=== PATIENT | female | born 1950 | race Caucasian/White ===

== ENCOUNTER 2020-05-07 16:22 | Emergency (ER) | payer MEDICARE, SELFPAY ==
--- NOTE | 2020-05-07 16:32 | PC.NURSE ---
Pt seen leaving hospital after taking off bracelet and giving it to registration. Registration states pt said she is going to go home elizabeth wrap her finger herself.
== END 2020-05-07 16:32 | disposition left against medical advice (07) ==
LOC: CHSED 16:24
PROVIDERS: Emergency Provider Family Medicine; PCP Internal Medicine
DX: Z53.8 Procedure and treatment not carried out for other reasons (principal)
CPT/HCPCS: 99199

== ENCOUNTER 2020-05-10 22:32 | Emergency (ER) | payer MEDICARE, SELFPAY ==
[2020-05-10 22:37] VITALS: BP 166/61; PULSE 82; RESP 20; TEMP 36.8; O2SAT 96
--- NOTE | 2020-05-10 22:50 | ED.HEATRA ---
HPI - Head Injury General Chief complaint: Head Injury Stated complaint: Busted head open Time Seen by Provider: 05/10/20 22:35 Source: patient and RN notes reviewed Mode of arrival: ambulatory Limitations: no limitations History of Present Illness HPI Narrative: patient was closing a car door and the corner of the car door hit her forehead caused a laceration. Tetanus is up-to-date. Complaint: head injury Onset (ago): minute(s) (5) Mechanism of Injury: other ( Head by a Car door) Place: home Loss of Consciousness: no Location of injury: face Severity: mild Quality: dull Radiation: none Other Injuries: none Associated symptoms: denies other symptoms Related Data Home Medications Medication Instructions Recorded Confirmed alprazolam 0.25 mg PO Q6-8H PRN 09/22/19 05/10/20 atenolol 50 mg PO DAILY 09/22/19 05/10/20 glimepiride 4 mg PO BID 09/22/19 05/10/20 triamterene-hydrochlorothiazid 1 cap PO DAILY 09/22/19 05/10/20 verapamil 240 mg PO BID 09/22/19 05/10/20 Allergies Allergy/AdvReac Type Severity Reaction Status Date / Time Unable to Assess Allergy Verified 09/22/19 16:39 Review of Systems Review of Systems: All systems reviewed & are unremarkable except as noted in HPI and below PMFSH Past Medical History Medical History (Updated 05/10/20 @ 23:22 by Maicol Thomas MD) Diabetes 1.5, managed as type 2 Hypertension Surgical History Surgical History (Updated 05/10/20 @ 23:16 by Maicol Thomas MD) No history of previous surgery Social History Social History (Updated 05/10/20 @ 23:17 by Maicol Thomas MD) Smoking status: Never smoker Alcohol intake: current Alcohol use details: occasional Substance use: never Exam Const: General: healthy appearing and no acute distress Nutritional Appearance: well nourished Orientation/consciousness: patient oriented x3 HENMT: Head: normal to inspection Ears: external ears normal Face and sinus: normal facial exam Mouth: Yes lip normal and Yes moist mucous membranes Eyes: Conjunctivae: conjunctivae normal Pupils: Equal, round and reactive pupils present EOM: EOMs intact bilaterally Neck: Neck: normal visual inspection Resp: Effort & Inspection: normal respiratory effort Auscultation: clear to auscultation bilaterally Cardio: Rate: regular rate Rhythm: regular rhythm GI: GI Palp: Yes Soft to palpation Auscultation: normal bowel sounds Back/Spine/Pelvis: Cervical Spine: cervical ROM normal Thoracic/Lumbar Spine: thoraco-lumbar ROM normal Skin: Wounds: wounds noted laceration forehead size (5 cm) and open Neuro: General: patient oriented x3, moves all extremities and no focal motor deficits Speech: normal speech Gait exam (Neuro): Normal gait present Extrem: General: normal to inspection and no pedal edema Psych: Appearance: grossly normal and well kempt Mental Status: mental status grossly normal Affect: normal affect Attitude: cooperative Thought content: Yes Normal thought content present Course Vital Signs Vital signs: Vital Signs Temperature 36.8 C 05/10/20 22:37 Pulse Rate 82 05/10/20 22:37 Respiratory Rate 20 05/10/20 22:37 Blood Pressure 166/61 H 05/10/20 22:37 Pulse Oximetry 96 05/10/20 22:37 Temperature 36.8 C 05/10/20 22:37 Pulse Rate 82 05/10/20 22:37 Respiratory Rate 20 05/10/20 22:37 Blood Pressure 166/61 H 05/10/20 22:37 Pulse Oximetry 96 05/10/20 22:37 Procedures Laceration Laceration 1: Date: 05/10/20 Time: 23:08 Site: face (Forehead center) Size (cm): 5 Description: linear Depth: simple, single layer Local Anesthetic: lidocaine 1% and with epi Pre-repair: irrigated ====== Skin Level ====== Skin layer closed with: nylon Size (cm): 4-0 Number of sutures: 12 Technique: running ====== Subcutaneous Layer ====== ====== Muscle Layer ====== ====== Tendon La
[2020-05-10] MEDS: LIDO 1%/EPINEPHRINE 1:100,000 20 ML VIAL INFILTRATE (23:10)
[2020-05-10 23:45] VITALS: BP 140/66; PULSE 64; RESP 20; TEMP 36.9; O2SAT 94
[2020-05-10] MEDS: NEOMYCIN/POLYMYXIN/BACITRACIN OINTMENT PACKET 1 PACKET TOPICAL (23:45)
--- NOTE | 2020-05-10 23:53 | PC.NURSE ---
Applied dressing to forehead using neosporin and a non adherent 2x3 pad, patient tolerated well.
== END 2020-05-10 23:50 | disposition home or self-care (01) ==
PROVIDERS: Emergency Provider Emergency Medicine; PCP Internal Medicine
DX: S01.81XA Laceration without foreign body of other part of head, initial encounter (principal); W45.8XXA Other foreign body or object entering through skin, initial encounter
CPT/HCPCS: 12013; 99282

== ENCOUNTER 2020-05-17 07:55 | Outpatient (CLI) | payer MEDICARE, SELFPAY ==
[2020-05-17 08:09] LABS: Add Urine Microscopic? YES; Bilirubin Urine Negative (Negative); Blood Urine Negative (Negative); Color Urine Yellow (Yellow); Glucose Urine UA Negative (Negative); Ketones Urine Negative (Negative); Leukocyte Esterase Ur 2+ LEU/UL (Negative); Nitrate Urine Negative (Negative); Protein Urine Trace (Negative); Urobilinogen Urine 0.2 mg/dL (0.2-1.0); pH Urine 6.5 (5.0-8.0)
[2020-05-17 08:10] LABS: Appearance Urine Sl Cloudy (Clear)
[2020-05-17 08:16] LABS: Bacteria Urine 4+ /hpf; Squamous Epithelial Cell Urine Many /hpf (Few); WBC Urine >75 /hpf (0-3)
[2020-05-17 08:32] LABS: Hemoglobin A1C 7.4 % (<5.7)
[2020-05-17 09:14] LABS: Alanine Aminotransferase 25 U/L (14-59); Albumin Level 3.2 g/dL (3.4-5.0); Alkaline Phosphatase 74 U/L (46-116); Anion Gap 6 mmol/L (8-16); Bilirubin,Total 1.2 mg/dL (0.00-1.00); Blood Urea Nitrogen 16 mg/dL (7-18); Calcium 9.4 mg/dL (8.5-10.1); Carbon Dioxide 31 mmol/L (21-32); Chloride 104 mmol/L (98-108); Cholesterol 168 mg/dL (0-200); Creatine Kinase 90 U/L (26-192); Estimated Glomerular Filt Rate 56; Free T4 Free Thyroxine 1.28 ng/dL (0.76-1.46); Glucose 176 mg/dL (70-99); HDL Direct 44 mg/dL (40-60); LDL Cholesterol Calculated 101 mg/dL (<130); Osmolality Calculated 297 mOsm/kg (285-295); Sodium 141 mmol/L (136-145); Thyroid Stimulating Hormone 2.23 uIU/mL (0.36-3.74); Total Protein 7.6 g/dL (6.4-8.2); Triglycerides 116 mg/dL (0-150)
[2020-05-17 09:53] LABS: Aspartate Amino Transferase 23 U/L (15-37)
== END 2020-05-17 07:56 | disposition home or self-care (01) ==
LOC: CHSLAB 07:57
PROVIDERS: PCP Internal Medicine; Visit Provider Internal Medicine
DX: E03.9 Hypothyroidism, unspecified (principal); E11.65 Type 2 diabetes mellitus with hyperglycemia; I10 Essential (primary) hypertension; R82.90 Unspecified abnormal findings in urine
CPT/HCPCS: 36415; 80053; 80061; 81001; 82550; 83036; 84439; 84443; 87077; 87086; 87088

== ENCOUNTER 2020-06-09 10:16 | Outpatient (CLI) | payer MEDICARE, SELFPAY ==
--- NOTE | ~2020-06-09 | XR_ITS ---
EXAMINATION: XR finger 3rd RT min 2V INDICATION: Right third finger pain, initial encounter TECHNIQUE: Four views of the right third finger are obtained. COMPARISON: None available FINDINGS: A tiny heterotopic ossification projects dorsal to the distal aspect of the third middle ph alanx on the lateral view. There is flexion at the third distal interphalangeal joint. Finger soft ti ssue swelling is noted. There is [id number] polyarticular osteoarthritis of the interphalangeal joints. IMPRESSION: 1. 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 Orthopedic evaluation is recommended. Reviewed, dictated and finalized at location A. IMPRESSION: 1. 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 Orthopedic ev aluation is recommended.
== END 2020-06-09 10:17 | disposition home or self-care (01) ==
LOC: CHSIMG 10:18
PROVIDERS: PCP Internal Medicine; Visit Provider Internal Medicine
DX: S69.91XA Unspecified injury of right wrist, hand and finger(s), initial encounter (principal)
CPT/HCPCS: 73140

== ENCOUNTER 2021-01-28 08:01 | Outpatient (CLI) | payer MEDICARE, SELFPAY ==
[2021-01-28 08:28] LABS: Hemoglobin A1C 8.3 % (<5.7)
[2021-01-28 09:05] LABS: Anion Gap 6 mmol/L (8-16); Blood Urea Nitrogen 23 mg/dL (7-18); Calcium 9.7 mg/dL (8.5-10.1); Carbon Dioxide 30 mmol/L (21-32); Chloride 104 mmol/L (98-108); Estimated Glomerular Filt Rate 54; Glucose 180 mg/dL (70-99); Osmolality Calculated 298 mOsm/kg (285-295); Potassium 3.8 mmol/L (3.5-5.1); Sodium 140 mmol/L (136-145)
== END 2021-01-28 08:02 | disposition home or self-care (01) ==
LOC: CHSLAB 08:04
PROVIDERS: PCP Internal Medicine; Visit Provider Internal Medicine
DX: E11.65 Type 2 diabetes mellitus with hyperglycemia (principal); I10 Essential (primary) hypertension
CPT/HCPCS: 36415; 80048; 83036

== ENCOUNTER 2021-09-14 09:23 | Outpatient (CLI) | payer MEDICARE, SELFPAY ==
[2021-09-14 09:47] LABS: Basophils Absolute Auto 0.04 K/mm3 (0.00-0.10); Basophils Percent Auto 0.5 % (0.0-1.0); Eosinophils Absolute Auto 0.25 K/mm3 (0.02-0.50); Hematocrit 45.3 % (35.0-42.0); Immature Granulocyte Absolute 0.03 K/mm3 (0.00-0.00); Immature Granulocyte Percent A 0.4 % (0.0-0.0); Lymphocytes Absolute Auto 0.89 K/mm3 (1.10-4.50); Lymphocytes Percent Auto 10.8 % (18.0-42.0); Mean Corpuscular HGB Conc 33.1 g/dL (32.0-36.0); Mean Corpuscular Hemoglobin 30.1 pg (27.0-31.0); Mean Corpuscular Volume 90.8 fL (78.0-102.0); Monocytes Absolute Auto 0.56 K/mm3 (0.10-0.90); Monocytes Percent Auto 6.8 % (2.0-11.0); Neutrophils Absolute Auto 6.5 K/mm3 (1.7-7.2); Neutrophils Percent Auto 78.5 % (50.0-70.0); Platelet Count Result 214 K/mm3 (150-420); Red Blood Count 4.99 M/mm3 (4.20-5.40); White Blood Count 8.3 K/mm3 (4.8-10.8)
[2021-09-14 09:57] LABS: Hemoglobin A1C 9.3 % (<5.7)
[2021-09-14 10:40] LABS: Alanine Aminotransferase 25 U/L (14-59); Albumin Level 3.3 g/dL (3.4-5.0); Alkaline Phosphatase 84 U/L (46-116); Anion Gap 11 mmol/L (8-16); Aspartate Amino Transferase 15 U/L (15-37); Blood Urea Nitrogen 14 mg/dL (7-18); Calcium 9.4 mg/dL (8.5-10.1); Carbon Dioxide 29 mmol/L (21-32); Chloride 102 mmol/L (98-108); Cholesterol 172 mg/dL (0-200); Creatine Kinase 82 U/L (26-192); Estimated Glomerular Filt Rate > 60; Free T3 3.19 pg/mL (2.18-3.98); Free T4 Free Thyroxine 1.18 ng/dL (0.76-1.46); Glucose 227 mg/dL (70-99); HDL Direct 42 mg/dL (40-60); LDL Cholesterol Calculated 103 mg/dL (<130); Osmolality Calculated 301 mOsm/kg (285-295); Potassium 3.9 mmol/L (3.5-5.1); Sodium 142 mmol/L (136-145); Thyroid Stimulating Hormone 2.31 uIU/mL (0.36-3.74); Total Protein 7.8 g/dL (6.4-8.2); Triglycerides 137 mg/dL (0-150)
[2021-09-14 13:12] LABS: Add Urine Microscopic? YES; Appearance Urine Clear (Clear); Bilirubin Urine Negative (Negative); Blood Urine Negative (Negative); Color Urine Yellow (Yellow); Glucose Urine UA 2+ (Negative); Ketones Urine Negative (Negative); Leukocyte Esterase Ur Trace LEU/UL (Negative); Nitrate Urine Negative (Negative); Protein Urine Negative (Negative); Specific Grav Ur >= 1.030 (1.010-1.020); Urobilinogen Urine 0.2 mg/dL (0.2-1.0); pH Urine 5.5 (5.0-8.0)
[2021-09-14 13:18] LABS: Bacteria Urine 1+ /hpf; RBC Urine None seen /hpf (0-2); Squamous Epithelial Cell Urine Few /hpf (Few)
[2021-09-14 13:26] LABS: MALB Creatinine Ratio 27.6 mg/g (0-30); Microalbumin Urine Random 47.7 mg/L
== END 2021-09-14 09:24 | disposition home or self-care (01) ==
LOC: CHSLAB 09:25
PROVIDERS: PCP Internal Medicine; Visit Provider Internal Medicine
DX: E03.9 Hypothyroidism, unspecified (principal); I10 Essential (primary) hypertension; E11.65 Type 2 diabetes mellitus with hyperglycemia
CPT/HCPCS: 36415; 80053; 80061; 81001; 82043; 82550; 83036; 84439; 84443; 84481; 85025

== ENCOUNTER 2022-06-14 10:56 | Outpatient (CLI) | payer MEDICARE, SELFPAY ==
[2022-06-14 11:23] LABS: Anion Gap 7 mmol/L (8-16); Blood Urea Nitrogen 15 mg/dL (7-18); Carbon Dioxide 31 mmol/L (21-32); Chloride 102 mmol/L (98-108); Estimated Glomerular Filt Rate > 60; Glucose 242 mg/dL (70-99); Osmolality Calculated 298 mOsm/kg (285-295); Potassium 3.8 mmol/L (3.5-5.1); Sodium 140 mmol/L (136-145)
[2022-06-14 11:31] LABS: Hemoglobin A1C 9.7 % (<5.7)
== END 2022-06-14 10:57 | disposition home or self-care (01) ==
LOC: CHSLAB 10:58
PROVIDERS: PCP Internal Medicine; Visit Provider Internal Medicine
DX: E11.65 Type 2 diabetes mellitus with hyperglycemia (principal)
CPT/HCPCS: 36415; 80048; 83036

== ENCOUNTER 2022-12-14 08:18 | Outpatient (CLI) | payer MEDICARE, SELFPAY ==
[2022-12-14 08:42] LABS: Basophils Absolute Auto 0.05 K/mm3 (0.00-0.10); Basophils Percent Auto 0.6 % (0.0-1.0); Eosinophils Absolute Auto 0.33 K/mm3 (0.02-0.50); Eosinophils Percent Auto 3.9 % (1.0-6.0); Hematocrit 42.6 % (35.0-42.0); Hemoglobin 13.5 g/dL (11.7-13.8); Immature Granulocyte Absolute 0.03 K/mm3 (0.00-0.00); Immature Granulocyte Percent A 0.4 % (0.0-0.0); Lymphocytes Percent Auto 11.9 % (18.0-42.0); Mean Corpuscular HGB Conc 31.7 g/dL (32.0-36.0); Mean Corpuscular Hemoglobin 29.2 pg (27.0-31.0); Mean Platelet Volume 9.3 fl (9.2-11.8); Monocytes Absolute Auto 0.49 K/mm3 (0.10-0.90); Monocytes Percent Auto 5.8 % (2.0-11.0); Neutrophils Absolute Auto 6.5 K/mm3 (1.7-7.2); Neutrophils Percent Auto 77.4 % (50.0-70.0); Platelet Count Result 292 K/mm3 (150-420); Red Blood Count 4.63 M/mm3 (4.20-5.40); Red Cell Distribution Width 14.1 % (11.6-14.4); White Blood Count 8.4 K/mm3 (4.8-10.8)
[2022-12-14 08:59] LABS: Appearance Urine Clear (Clear); Bilirubin Urine Negative (Negative); Blood Urine Trace-Intact (Negative); Color Urine Light Yellow (Yellow); Glucose Urine UA Negative (Negative); Ketones Urine Negative (Negative); Leukocyte Esterase Ur 3+ LEU/UL (Negative); Nitrate Urine Negative (Negative); Protein Urine Negative (Negative); Specific Grav Ur 1.025 (1.010-1.020); Urobilinogen Urine 0.2 mg/dL (0.2-1.0)
[2022-12-14 09:02] LABS: Add Urine Microscopic? YES
[2022-12-14 09:03] LABS: RBC Urine None seen /hpf (0-2); Squamous Epithelial Cell Urine Few /hpf (Few)
[2022-12-14 09:04] LABS: Bacteria Urine 1+ /hpf
[2022-12-14 09:18] LABS: Hemoglobin A1C 9.4 % (<5.7)
[2022-12-14 09:48] LABS: Alanine Aminotransferase 18 U/L (14-59); Albumin Level 2.6 g/dL (3.4-5.0); Alkaline Phosphatase 71 U/L (46-116); Anion Gap 7 mmol/L (8-16); Aspartate Amino Transferase 27 U/L (15-37); Bilirubin,Total 0.6 mg/dL (0.00-1.00); Blood Urea Nitrogen 13 mg/dL (7-18); Calcium 8.8 mg/dL (8.5-10.1); Carbon Dioxide 30 mmol/L (21-32); Chloride 108 mmol/L (98-108); Cholesterol 160 mg/dL (0-200); Estimated Glomerular Filt Rate > 60; Free T4 Free Thyroxine 1.11 ng/dL (0.76-1.46); Glucose 166 mg/dL (70-99); HDL Direct 43 mg/dL (40-60); LDL Cholesterol Calculated 96 mg/dL (<130); Osmolality Calculated 304 mOsm/kg (285-295); Sodium 145 mmol/L (136-145); Thyroid Stimulating Hormone 2.63 uIU/mL (0.36-3.74); Total Protein 7.1 g/dL (6.4-8.2); Triglycerides 105 mg/dL (0-150)
[2022-12-14 19:04] LABS: Free T3 2.62 pg/mL (2.18-3.98)
== END 2022-12-14 08:19 | disposition home or self-care (01) ==
PROVIDERS: PCP Internal Medicine; Visit Provider Internal Medicine
DX: I10 Essential (primary) hypertension (principal); E03.4 Atrophy of thyroid (acquired); E11.65 Type 2 diabetes mellitus with hyperglycemia; N39.0 Urinary tract infection, site not specified; R82.90 Unspecified abnormal findings in urine
CPT/HCPCS: 36415; 80053; 80061; 81001; 83036; 84439; 84443; 84481; 85025; 87077; 87086; 87088

== ENCOUNTER 2023-08-09 14:05 | Emergency (ER) | payer MEDICARE, SELFPAY ==
--- NOTE | ~2023-08-09 | XR_ITS ---
XR thoracic spine 3V 08/09/2023 15:08 Indication: Status post fall. Back pain. Procedure: 3 views thoracic spine Comparison: No prior studies for comparison. Findings: There is mild dextrocurvature of the thoracic spine. There are gallstones. There are are br idging osteophytes at multiple levels. There is diffuse idiopathic skeletal hyperostosis (DISH) of th e thoracic spine. No acute fracture is identified. Surrounding osseous structures are unremarkable. Impression: 1: Moderate-severe thoracic spondylosis. Reviewed, dictated and finalized at location A. Impression: 1: Moderate-severe thoracic spondylosis.
--- NOTE | ~2023-08-09 | XR_ITS ---
[XR ribs BI 3V w CXR 2V ] INDICATION: Knee rib pain after fall TECHNIQUE: Frontal projection of the upper ribs, frontal projection of the lower ribs, oblique projec tion of all the ribs, frontal inspiratory chest x-ray for interpretation. FINDINGS: There are no displaced rib fractures identified. There are no soft tissue abnormality see n. The lungs are clear. Incidental note is made of gallstones. IMPRESSION: 1:No acute displaced rib fractures. Reviewed, dictated and finalized at location A.
--- NOTE | ~2023-08-09 | XR_ITS ---
XR elbow RT min 3V 08/09/2023 15:08 Indication: Right elbow pain Procedure: 3 views right elbow Comparison: No prior studies for comparison. Findings: There is severe polyarticular osteoarthritis of the right elbow. No significant joint effus ion. No acute fracture or traumatic malalignment. Prominent marginal osteophytes with loose bodies ve ntral to the joint space. Impression: 1: Severe arthritis of the right elbow. Reviewed, dictated and finalized at location A. Impression: 1: Severe arthritis of the right elbow.
--- NOTE | ~2023-08-09 | XR_ITS ---
XR lumbar spine 2-3V 08/09/2023 15:09 Indication: Back pain Procedure: 3 views lumbar spine Comparison: No prior studies for comparison. Findings: There is significant disc narrowing at all lumbar levels. There is advanced multilevel face t hypertrophy throughout the lumbar spine. There is hypertrophy of the spinous processes. There is de generative retrolisthesis at L1-2. There is wedge shaped appearance at T11 and T12, likely chronic. P rominent marginal osteophytes. Sacral foramen are symmetric. No acute fracture or traumatic malalignm ent. Impression: 1: Severe lumbar spondylosis. Reviewed, dictated and finalized at location A. Impression: 1: Severe lumbar spondylosis.
[2023-08-09 14:19] VITALS: BP 149/78; PULSE 75; RESP 20; TEMP 36.6; O2SAT 96
--- NOTE | 2023-08-09 14:21 | ED.FALL ---
HPI - Fall General Chief Complaint: Fall Stated Complaint: fall Time Seen by Provider: 08/09/23 14:07 Source: patient Mode of arrival: ambulatory Limitations: no limitations History of Present Illness HPI Narrative: patient is a 72-year-old female from a ground level fall today at home. She fell on a hard surface at home. She landed on her back and has pain in the middle of the back. Also some lower back and right elbow pain. No head or neck injuries. No loss of consciousness. MD complaint: fall Onset (ago): hour(s) (1) Fall from: standing Fall witnessed: no Place fall occurred: home Loss of consciousness: none Prolonged down time: no Symptoms prior to fall: none Context: tripped/slipped Location of injury: back Location of injury - extremities: Right: elbow Severity: severe Severity scale (1-10): 8 Quality: sharp Associated symptoms (after fall): denies Related Data Home Medications Medication Instructions Recorded Confirmed glimepiride 4 mg tablet 4 mg PO BID 09/22/19 08/09/23 triamterene 37.5 1 cap PO DAILY 09/22/19 08/09/23 mg-hydrochlorothiazide 25 mg capsule verapamil 240 mg tablet,extended 240 mg PO BID 09/22/19 08/09/23 release metoprolol succinate 50 mg 50 mg PO DAILY 08/09/23 08/09/23 tablet,extended release 24 hr Allergies Allergy/AdvReac Type Severity Reaction Status Date / Time ciprofloxacin [From Cipro] Allergy Rash Verified 08/09/23 14:23 codeine Allergy Rash Verified 08/09/23 14:23 ibuprofen [From Advil] AdvReac Other Verified 08/09/23 14:25 naproxen [From Aleve] AdvReac Other Verified 08/09/23 14:25 Review of Systems Review of Systems: All systems reviewed & are unremarkable except as noted in HPI and below Constitutional: Constitutional: Reports no additional constitutional complaints Eyes: Eyes: Reports no additional eye complaints ENT: Reports system reviewed and no additional complaints, except as documented Cardiovascular: Cardiovascular: Reports no additional cardiovascular complaints Respiratory: Respiratory: Reports no additional respiratory complaints Gastrointestinal: Gastrointestinal: Reports no additional gastrointestinal complaints Genitourinary: Genitourinary: Reports no additional female genitourinary complaints Musculoskeletal: Musculoskeletal: Reports no additional musculoskeletal complaints Integumentary/Breasts: Skin/Breast: Reports system reviewed and no additional complaints, except as docu Neurologic: Reports system reviewed and no additional complaints, except as documented Psychiatric: Psychiatric: Reports no additional psychiatric complaints Endocrine: Endocrine: Reports no additional endocrine complaints Hematologic/Lymphatic: Hematologic/Lymphatic: Reports no additional hematologic/lymphatic complaints Allergic/Immunologic: Allergic/Immunologic: Reports no additional allergic/immunologic complaints PMFSH Past Medical History Medical History Diabetes 1.5, managed as type 2 Hypertension Surgical History Surgical History No history of previous surgery Social History Social History Smoking status: Never smoker Alcohol intake: current Alcohol use details: occasional Substance use: never Exam Const: General: healthy appearing Nutritional Appearance: well nourished Orientation/consciousness: patient oriented x3 HENMT: Head: normal to inspection Ears: external ears normal Face/Nose/Sinus: Normal external nose present Eyes: Conjunctivae: conjunctivae normal Pupils: Equal, round and reactive pupils present EOM: EOMs intact bilaterally Neck: Neck: normal visual inspection Chest: Chest palpation & inspection: normal inspection of the chest Resp: Effort & Inspection: normal respiratory effort Auscultation: clear to auscultation bilaterally, 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
[2023-08-09] MEDS: ACETAMINOPHEN 500 MG TABLET 1000 MG PO (15:36)
[2023-08-09 15:44] VITALS: BP 157/74; PULSE 65; RESP 20; TEMP 36.3; O2SAT 98
--- NOTE | 2023-08-09 16:21 | PC.NURSE ---
On 08/09/23, the student, [suraj zamora ], provided care and completed [facility] documentation on this patient. I have reviewed the student's documentation and agree with the findings.
== END 2023-08-09 15:45 | disposition home or self-care (01) ==
PROVIDERS: Emergency Provider Emergency Medicine; PCP Internal Medicine
DX: S20.229A Contusion of unspecified back wall of thorax, initial encounter (principal); M54.50 Low back pain, unspecified; W18.30XA Fall on same level, unspecified, initial encounter; Z79.84 Long term (current) use of oral hypoglycemic drugs; E13.9 Other specified diabetes mellitus without complications; I10 Essential (primary) hypertension
CPT/HCPCS: 71046; 71110; 72072; 72100; 73080; 99284

== ENCOUNTER 2023-09-26 10:30 | Outpatient (CLI) | payer MEDICARE, SELFPAY ==
[2023-09-26 11:08] LABS: Hemoglobin A1C 10.5 % (<5.7)
[2023-09-26 11:20] LABS: Anion Gap 7 mmol/L (8-16); Blood Urea Nitrogen 15 mg/dL (7-18); Calcium 9.4 mg/dL (8.5-10.1); Carbon Dioxide 31 mmol/L (21-32); Chloride 102 mmol/L (98-108); Estimated Glomerular Filt Rate > 60; Glucose 282 mg/dL (70-99); Osmolality Calculated 300 mOsm/kg (285-295); Sodium 140 mmol/L (136-145)
== END 2023-09-26 10:31 | disposition home or self-care (01) ==
LOC: CHSLAB 10:32
PROVIDERS: PCP Internal Medicine; Visit Provider Internal Medicine
DX: E11.65 Type 2 diabetes mellitus with hyperglycemia (principal)
CPT/HCPCS: 36415; 80048; 83036

== ENCOUNTER 2024-09-18 09:53 | Emergency (ER) | payer MEDICARE, SELFPAY ==
--- NOTE | ~2024-09-18 | CT_ITS ---
EXAMINATION: CT brain wo con DATE: 09/18/2024 10:43 INDICATION: Fall. Memory loss. TECHNIQUE: Computed tomography (CT) of the head was performed without intravenous contrast. Sagittal and coronal reconstructions were performed. The mA was adjusted according to patient size. Iterative reconstruction technique was employed. The dose-length product was 681.00 mGy-cm. COMPARISON: head CT dated 06/28/1970 FINDINGS: Hyperostosis frontalis. No fracture. Acute intracranial hemorrhage, acute infarction or abnormal extr a axial fluid collection. There is mild scattered white matter hypoattenuation consistent with chroni c small vessel ischemic disease. Symmetric prominence of the sulci consistent with mild age-appropria te diffuse cerebral volume loss. Ventricles are normal and symmetric. No mass/mass effect. The orbits , paranasal sinuses and mastoid air cells are normal. IMPRESSION: 1. Normal aging brain. No fracture or acute intracranial process. Reviewed, dictated and finalized at location A. CHEF
[2024-09-18 10:00] VITALS: BP 159/85; PULSE 82; RESP 18; TEMP 36.3; O2SAT 98
[2024-09-18 10:33] LABS: Basophils Absolute Auto 0.02 K/mm3 (0.00-0.10); Basophils Percent Auto 0.2 % (0.0-1.0); Eosinophils Absolute Auto 0.07 K/mm3 (0.02-0.50); Eosinophils Percent Auto 0.8 % (1.0-6.0); Hematocrit 33.3 % (35.0-42.0); Hemoglobin 10.6 g/dL (11.7-13.8); Immature Granulocyte Absolute 0.03 K/mm3 (0.00-0.00); Immature Granulocyte Percent A 0.4 % (0.0-0.0); Lymphocytes Absolute Auto 0.44 K/mm3 (1.10-4.50); Lymphocytes Percent Auto 5.3 % (18.0-42.0); Mean Corpuscular HGB Conc 31.8 g/dL (32-36); Mean Corpuscular Hemoglobin 25.2 pg (27.0-31.0); Mean Corpuscular Volume 79.3 fL (78.0-102.0); Mean Platelet Volume 10.2 fl (9.2-11.8); Monocytes Absolute Auto 0.62 K/mm3 (0.10-0.90); Monocytes Percent Auto 7.4 % (2.0-11.0); Neutrophils Absolute Auto 7.16 K/mm3 (1.70-7.20); Neutrophils Percent Auto 85.9 % (50.0-70.0); Platelet Count Result 255 K/mm3 (150-420); Red Cell Distribution Width 14.9 % (11.6-14.4); White Blood Count 8.3 K/mm3 (4.8-10.8)
[2024-09-18 10:50] LABS: Alanine Aminotransferase 23 U/L (14-59); Albumin Level 2.2 g/dL (3.4-5.0); Alkaline Phosphatase 87 U/L (46-116); Anion Gap 6 mmol/L (4-12); Aspartate Amino Transferase 37 U/L (15-37); Bilirubin,Total 0.7 mg/dL (0.00-1.00); Blood Urea Nitrogen 27 mg/dL (7-18); Calcium 8.9 mg/dL (8.5-10.1); Carbon Dioxide 30 mmol/L (21-32); Chloride 98 mmol/L (98-108); Estimated CRCL calculation 53 ml/min; Estimated Glomerular Filt Rate 54; Glucose 347 mg/dL (70-99); Osmolality Calculated 297 mOsm/kg (285-295); Potassium 3.7 mmol/L (3.5-5.1); Sodium 134 mmol/L (136-145); Total Protein 7.5 g/dL (6.4-8.2)
[2024-09-18 11:03] LABS: Appearance Urine Cloudy (Clear); Bilirubin Urine Negative (Negative); Blood Urine 3+ (Negative); Glucose Urine UA 2+ (Negative); Ketones Urine Trace (Negative); Leukocyte Esterase Ur 1+ (Negative); Nitrate Urine Negative (Negative); Protein Urine 2+ (Negative); Specific Grav Ur 1.025 (1.010-1.020)
[2024-09-18 11:09] LABS: SARS-CoV-2 RNA PCR Negative (Negative)
[2024-09-18 11:10] LABS: Influenza A QL RT-PCR Negative (Negative); Influenza B QL RT-PCR Negative (Negative); RSV RNA, RT-PCR Negative (Negative)
[2024-09-18 11:15] LABS: Add Urine Microscopic? YES; Bacteria Urine 3+ /hpf; Color Urine Amber (Yellow); Squamous Epithelial Cell Urine Moderate /hpf (Few)
--- NOTE | 2024-09-18 11:15 | PC.NURSE ---
dr ye in with pt discussing plan of care
--- NOTE | 2024-09-18 11:27 | ED_ITS ---
HPI - General Adult General Chief complaint: Extremity Injury, Lower Stated complaint: fall/hip pain Source: patient Mode of arrival: ambulatory Limitations: no limitations History of Present Illness HPI narrative: Patient is a 73-year-old female with significant past medical history that presents today with multiple complaints. First of all she had a fall about a week and half ago she fell in the parking [employer] has store. She did not hit her head but she did not lose consciousness. She said she does hurt her right side a little bit she was not taken to the hospital for this. She says then she a few nights ago she had another fall on her house and she could not get back up off the floor and EMS was called and came and did not take her to the hospital because she says she had no pain in all was able to go off floor with help and that was the end that. She says she has this little bit of soreness from the falls but is able walk just fine and has no pain. Her main complaint is she says she just feels weird. She says she has feels strange she says she feels a little bit lightheaded she says she just feels off. That was her reason for coming in today not because the fall. She also complains of memory loss. Onset (ago): day(s) Location: head Radiation: non-radiation Severity: mild Relieving factors: none Exacerbating factors: none Associated symptoms: malaise and weakness Treatments prior to arrival: none Related Data Home Medications ?Medication ?Instructions ?Recorded ?Confirmed ?Last Taken ?Type triamterene 37.5 1 cap PO DAILY 09/22/19 08/09/23 Unknown History mg-hydrochlorothiazide 25 mg capsule verapamil 240 mg tablet,extended 240 mg PO BID 09/22/19 08/09/23 Unknown History release metoprolol succinate 50 mg 50 mg PO DAILY 08/09/23 08/09/23 Unknown History tablet,extended release 24 hr alprazolam 0.25 mg tablet 0.25 mg PO QID PRN anxiety 09/18/24 09/18/24 History pioglitazone 45 mg tablet 45 mg PO DAILY 09/18/24 09/18/24 History Allergies Allergy/AdvReac Type Severity Reaction Status Date / Time ciprofloxacin (From Cipro) Allergy Rash Verified 08/09/23 14:23 codeine Allergy Rash Verified 08/09/23 14:23 ibuprofen (From Advil) AdvReac Other Verified 08/09/23 14:25 naproxen (From Aleve) AdvReac Other Verified 08/09/23 14:25 Review of Systems 2 Review of Systems: All systems reviewed & are unremarkable except as noted in HPI and below Constitutional: Constitutional: Reports as per HPI Eyes: Eyes: Reports no additional eye complaints ENT: Reports system reviewed and no additional complaints, except as documented Cardiovascular: Cardiovascular: Reports no additional cardiovascular complaints Respiratory: Respiratory: Reports no additional respiratory complaints Gastrointestinal: Gastrointestinal: Reports no additional gastrointestinal complaints Genitourinary: Genitourinary: Reports no additional female genitourinary complaints Musculoskeletal: Musculoskeletal: Reports no additional musculoskeletal complaints Integumentary/Breasts: Skin/Breast: Reports system reviewed and no additional complaints, except as docu Neurologic: Reports system reviewed and no additional complaints, except as documented Psychiatric: Psychiatric: Reports no additional psychiatric complaints Endocrine: Endocrine: Reports no additional endocrine complaints Hematologic/Lymphatic: Hematologic/Lymphatic: Reports no additional hematologic/lymphatic complaints Allergic/Immunologic: Allergic/Immunologic: Reports no additional allergic/immunologic complaints [facility] Past Medical History Medical History Diabetes 1.5, managed as type 2 Hypertension Surgical History Surgical History No history of previous surgery Social History Social History Smoking status: Never smoker Alcohol intake: current Alcohol use details: occasional Substance use: never Exam 2 Const: General: healthy appearing Nutritional Appearance: well nourished Orientation/consciousness: patient oriented x3 HENMT: Head: normal to inspection Ears: external ears normal F maria esther/Nose/Sinus: Normal external nose present Face and sinus: normal facial exam Eyes: Conjunctivae: conjunctivae normal Pupils: Equal, round and reactive pupils present EOM: EOMs intact bilaterally Neck: Neck: normal visual inspection Chest: Chest palpation & inspection: normal inspection of the chest Resp: Effort & Inspection: normal respiratory effort Auscultation: clear to auscultation bilaterally Cardio: Rate: regular rate Rhythm: regular rhythm GI: GI Palp: Yes Soft to palpation : General: Yes bladder normal to palpation Back/Spine/Pelvis: Back: no CVA tenderness Skin: General skin exam: normal color Rashes: no rashes Wounds: no wounds Neuro: General: patient oriented x3 Cranial nerves: Yes Nystagmus not present Speech: normal speech Gait exam (Neuro): Normal gait present Extrem: General: normal to inspection Psych: Mental Status: mental status grossly normal Affect: normal affect Attitude: cooperative Course Vital Signs Vital signs: Vital Signs Temperature 97.3 F L 09/18/24 10:00 Pulse Rate 82 09/18/24 10:00 Respiratory Rate 18 09/18/24 10:00 Blood Pressure 159/85 H 09/18/24 10:00 Pulse Oximetry 98 09/18/24 10:00 Oxygen Delivery Room Air 09/18/24 10:00 Temperature 97.3 F L 09/18/24 10:00 Pulse Rate 82 09/18/24 10:00 Respiratory Rate 18 09/18/24 10:00 Blood Pressure 159/85 H 09/18/24 10:00 Pulse Oximetry 98 09/18/24 10:00 Oxygen Delivery Room Air 09/18/24 10:00 Medical Decision Making MDM Narrative Medical decision making narrative: Patient has removed the symptoms she is reporting just not feeling like herself and feeling stringy and malaise and fatigue. She says she is drinking water she did run of 1 of her diabetic medications yesterday. Her sugars checked today was 380. This could have something to do with it but she has been feeling like this for for 5 days but just started feeling worse though last day she ran of her medication. Which is today. Will do a CT brain for the brain fog and for the lightheadedness and memory loss, and will check her CBC CMP and urinalysis. Differential Diagnosis Differential Diagnosis: UTI, hyperglycemia Medical Records Medical records reviewed: Yes I reviewed the external patient's medical records. Vital Signs Vital Signs: Vital Signs Temperature 97.3 F L 09/18/24 10:00 Pulse Rate 82 09/18/24 10:00 Respiratory Rate 18 09/18/24 10:00 Blood Pressure 159/85 H 09/18/24 10:00 Pulse Oximetry 98 09/18/24 10:00 Oxygen Delivery Room Air 09/18/24 10:00 Temperature 97.3 F L 09/18/24 10:00 Pulse Rate 82 09/18/24 10:00 Respiratory Rate 18 09/18/24 10:00 Blood Pressure 159/85 H 09/18/24 10:00 Pulse Oximetry 98 09/18/24 10:00 Oxygen Delivery Room Air 09/18/24 10:00 Lab Data Lab results reviewed: Yes I reviewed the patient's lab results. 09/18/24 10:28 09/18/24 10:28 Labs: Lab Results 09/18/24 09/18/24 09/18/24 Range/Units 10:18 10:28 10:59 WBC 8.3 (4.8-10.8) K/mm3 RBC 4.20 (4.20-5.40) M/mm3 Hgb 10.6 L (11.7-13.8) g/dL Hct 33.3 L (35.0-42.0) % MCV 79.3 (78.0-102.0) fL MCH 25.2 L (27.0-31.0) pg MCHC 31.8 L (32-36) g/dL RDW 14.9 H (11.6-14.4) % Plt Count 255 (150-420) K/mm3 MPV 10.2 (9.2-11.8) fl Immature Gran % (Auto) 0.4 H (0.0-0.0) % Neut % (Auto) 85.9 H (50.0-70.0) % Lymph % (Auto) 5.3 L (18.0-42.0) % [place] % (Auto) 7.4 (2.0-11.0) % Eos % (Auto) 0.8 L (1.0-6.0) % Baso % (Auto) 0.2 (0.0-1.0) % Lymph # (Auto) 0.44 L (1.10-4.50) K/mm3 [place] # (Auto) 0.62 (0.10-0.90) K/mm3 Eos # (Auto) 0.07 (0.02-0.50) K/mm3 Baso # (Auto) 0.02 (0.00-0.10) K/mm3 Abs Immat Gran (auto) 0.03 H (0.00-0.00) K/mm3 Absolute Neuts (auto) 7.16 (1.70-7.20) K/mm3 Absolute Nucleated RBC 0.00 (0.00-0.00) K/mm3 Nucleated RBC % 0.0 (0-0.0) % Sodium 134 L (136-145) mmol/L Potassium 3.7 (3.5-5.1) mmol/L Chloride 98 (98-108) mmol/L Carbon Dioxide 30 (21-32) mmol/L Anion Gap 6 (4-12) mmol/L BUN 27 H (7-18) mg/dL Creatinine 1.00 (0.55-1.02) mg/dL Estim Creat Clear Calc 53 ml/min Estimated GFR 54 L (59 - ) Glucose 347 H (70-99) mg/dL Calculated Osmolality 297 H (285-295) mOsm/kg Calcium 8.9 (8.5-10.1) mg/dL Total Bilirubin 0.7 (0.00-1.00) mg/dL AST 37 (15-37) U/L ALT 23 (14-59) U/L Alkaline Phosphatase 87 (46-116) U/L Total Protein 7.5 (6.4-8.2) g/dL Albumin 2.2 L (3.4-5.0) g/dL Urine Color Holly A (Yellow) Urine Appearance Cloudy A (Clear) Urine pH 5.0 (5.0-8.0) Ur Specific [place] 1.025 H (1.010-1.020) Urine Protein 2+ H (Negative) Urine Glucose (UA) 2+ H (Negative) Urine Ketones Trace H (Negative) Ur Blood (Man) 3+ H (Negative) Urine Nitrate Negative (Negative) Urine Bilirubin Negative (Negative) Urine Urobilinogen 1.0 (0.2-1.0) mg/dL Ur Leukocyte Esterase 1+ H (Negative) Urine RBC 6-10 H (0-2) /hpf Urine WBC 4-6 H (0-3) /hpf Ur Squamous Epith Cells Moderate H (Few) /hpf Urine Bacteria 3+ H (None) /hpf Influenza A (RT-PCR) Negative (Negative) Influenza B (RT-PCR) Negative (Negative) RSV (RT-PCR) Negative (Negative) SARS-CoV-2 RNA (RT-PCR) Negative (Negative) Imaging Data Attestation: I personally reviewed and interpreted this imaging study as follows: Discharge Plan Discharge Clinical Impression: Hyperglycemia, Acute UTI Patient Disposition: Home, Self-Care Condition: Stable Instructions: Urinary Tract Infection in Older Adults (ED) Patient Language: Georgian Prescriptions: New glimepiride 4 mg tablet 4 mg PO BID Qty: 60 0RF metoprolol succinate 50 mg tablet extended release 24 hr 50 mg PO DAILY Qty: 30 0RF nitrofurantoin monohyd/m-cryst [Macrobid] 100 mg capsule 100 mg PO Q12H 5 Days Qty: 10 0RF Rx Instructions: must administer with a meal/food No Action triamterene-hydrochlorothiazid 37.5-25 mg capsule 1 cap PO DAILY verapamil 240 mg tablet extended release 240 mg PO BID metoprolol succinate 50 mg tablet extended release 24 hr 50 mg PO DAILY cyclobenzaprine 5 mg tablet 5 mg PO TID PRN (Reason: muscle spasm) Qty: 20 0RF alprazolam 0.25 mg tablet 0.25 mg PO QID PRN (Reason: anxiety) pioglitazone 45 mg tablet 45 mg PO DAILY Follow-up/Referrals: Bereket Galeas DO [Primary Care Provider] - Time of Disposition: 11:37
[2024-09-18 11:52] VITALS: BP 141/79; PULSE 71; RESP 18; TEMP 36.8; O2SAT 97
[2024-09-18] MEDS: NITROFURANTOIN MONOHYD MACROCR 100 MG CAP PO (11:52)
[2024-09-18] MEDS: GLIMEPIRIDE 2 MG TABLET 4 MG PO (11:52)
== END 2024-09-18 11:52 | disposition home or self-care (01) ==
PROVIDERS: Emergency Provider Family Medicine; PCP Family Medicine
DX: E13.65 Other specified diabetes mellitus with hyperglycemia (principal); N39.0 Urinary tract infection, site not specified; I10 Essential (primary) hypertension; Z79.899 Other long term (current) drug therapy; Z20.822 Contact with and (suspected) exposure to COVID-19; W18.30XA Fall on same level, unspecified, initial encounter; Y92.481 Parking lot as the place of occurrence of the external cause
CPT/HCPCS: 36415; 70450; 80053; 81001; 85025; 87637; 99284; A9270

== ENCOUNTER 2024-10-02 11:13 | Outpatient (CLI) | payer MEDICARE, SELFPAY ==
[2024-10-02 11:36] LABS: Hematocrit 36.7 % (35.0-42.0); Hemoglobin 11.3 g/dL (11.7-13.8); Mean Corpuscular HGB Conc 30.8 g/dL (32-36); Mean Corpuscular Hemoglobin 24.9 pg (27.0-31.0); Mean Corpuscular Volume 80.8 fL (78.0-102.0); Mean Platelet Volume 9.6 fl (9.2-11.8); Platelet Count Result 374 K/mm3 (150-420); Red Blood Count 4.54 M/mm3 (4.20-5.40); Red Cell Distribution Width 15.9 % (11.6-14.4); White Blood Count 10.6 K/mm3 (4.8-10.8)
[2024-10-02 11:37] LABS: Add Urine Microscopic? YES; Appearance Urine Clear (Clear); Bilirubin Urine Negative (Negative); Blood Urine 3+ (Negative); Color Urine Light Yellow (Yellow); Glucose Urine UA Trace (Negative); Ketones Urine Negative (Negative); Leukocyte Esterase Ur 1+ (Negative); Nitrate Urine Negative (Negative); Protein Urine Negative (Negative); Specific Grav Ur 1.015 (1.010-1.020); Urobilinogen Urine 0.2 mg/dL (0.2-1.0); pH Urine 5.5 (5.0-8.0)
[2024-10-02 11:45] LABS: Creatinine Urine 51.35 mg/dL (40-278); MALB Creatinine Ratio 70.3 mg/g (0-30); Microalbumin Urine Random 36.1 mg/L
[2024-10-02 11:54] LABS: Bacteria Urine 1+ /hpf; Squamous Epithelial Cell Urine Few /hpf (Few)
[2024-10-02 12:04] LABS: Hemoglobin A1C 12.4 % (<5.7)
[2024-10-02 12:17] LABS: Alanine Aminotransferase 16 U/L (14-59); Albumin Level 2.8 g/dL (3.4-5.0); Alkaline Phosphatase 108 U/L (46-116); Anion Gap 8 mmol/L (4-12); Aspartate Amino Transferase 13 U/L (15-37); Blood Urea Nitrogen 16 mg/dL (7-18); Calcium 9.6 mg/dL (8.5-10.1); Carbon Dioxide 31 mmol/L (21-32); Chloride 101 mmol/L (98-108); Cholesterol 165 mg/dL (0-200); Estimated Glomerular Filt Rate 59; Glucose 223 mg/dL (70-99); HDL Direct 50 mg/dL (40-60); Iron 44 ug/dL (50-170); LDL Cholesterol Calculated 98 mg/dL (<130); Osmolality Calculated 298 mOsm/kg (285-295); Percent Iron Saturation 15 % (12-57); Potassium 4.4 mmol/L (3.5-5.1); Sodium 140 mmol/L (136-145); Total Protein 7.7 g/dL (6.4-8.2); Triglycerides 83 mg/dL (0-150)
== END 2024-10-02 11:14 | disposition home or self-care (01) ==
LOC: CHSLAB 11:16
PROVIDERS: PCP Nurse Practitioner Family; Visit Provider Nurse Practitioner Family
DX: I10 Essential (primary) hypertension (principal); N39.0 Urinary tract infection, site not specified; E13.9 Other specified diabetes mellitus without complications; R79.89 Other specified abnormal findings of blood chemistry; E87.1 Hypo-osmolality and hyponatremia
CPT/HCPCS: 36415; 80053; 80061; 81001; 82043; 83036; 83540; 83550; 84443; 85027; 87086

== ENCOUNTER 2025-01-25 10:18 | Emergency (ER) | payer MEDICARE, SELFPAY ==
[2025-01-25] VITALS (36 sets, daily range): BP systolic 102–137; BP diastolic 43–78; PULSE 68–787; RESP 19–20; TEMP 36.8; O2SAT 90–100
--- NOTE | ~2025-01-25 | CT_ITS ---
CT of the Abdomen and Pelvis: Indication: Abdominal pain Technique: 2.5 mm axial scans were obtained through the abdomen and pelvis following intravenous adm inistration of 100 cc of Omnipaque 350. Dose reduction technique was used on this scan by utilizing a utomated exposure control and iterative reconstruction technique. The dose-length product (DLP) was 1 058.11 mGy-cm. Findings: Scans through the lung bases are unremarkable. The liver, spleen, pancreas, left adrenal gland, and left kidney are within normal limits. Gallbladde r is distended with numerous gallstones and gallbladder sludge. No acute inflammatory change. 4.3 cm right adrenal nodule present with focal macroscopic fat, most compatible with myelolipoma. There is a staghorn type calculus at the right lower pole the right kidney measuring up to 3.7 cm in maximum di ameter. No ureteral stone or hydronephrosis. No evidence of aortic aneurysm. No lymphadenopathy. There is circumferential wall thickening of the distal sigmoid colon and proximal rectum. There is pr obable multiloculated adjacent abscesses abutting the distal sigmoid colon/rectum, with right-sided f luid pocket measuring 4.1 x 3.3 cm is, and more posterior fluid pocket measuring 5.7 x 4.0 cm (axial image 142 for example). Small amount of extraluminal air present within the fluid collections. Images through the pelvis were performed. Urinary bladder unremarkable. No adnexal mass evident. Impression: Circumferential wall thickening of the distal sigmoid colon/proximal rectum. Correlate for infectious /inflammatory colitis versus possibility of underlying neoplasm. 2 adjacent versus bilobed abscesses abutting/adjacent to the distal sigmoid colon/rectum, as detailed above. Contained bowel perforation not completely excluded, though no distant free air evident. Cholelithiasis and gallbladder sludge. Staghorn right renal calculus, as above. No hydronephrosis. 4.3 cm right adrenal myelolipoma. Reviewed, dictated and finalized at location M. Impression: Circumferential wall thickening of the distal sigmoid colon/proximal rectum. Co rrelate for infectious/inflammatory colitis versus possibility of underlying ne oplasm. 2 adjacent versus bilobed abscesses abutting/adjacent to the distal sigmoid col on/rectum, as detailed above. Contained bowel perforation not completely exclud ed, though no distant free air evident. Cholelithiasis and gallbladder sludge. Staghorn right renal calculus, as above. No hydronephrosis. 4.3 cm right adrenal myelolipoma.
[2025-01-25] MEDS: LOPERAMIDE HCL 2 MG CAPSULE 4 MG PO (10:59)
[2025-01-25] MEDS: SODIUM CHLORIDE 0.9% IV 1,000 ML 999 ML IV CONT ×2 (10:59→13:25)
[2025-01-25] MEDS: ONDANSETRON INJ 4 MG/2 ML VIAL IV PUSH (11:00)
[2025-01-25 11:04] LABS: Hematocrit 33.7 % (35.0-42.0); Mean Corpuscular HGB Conc 29.7 g/dL (32-36); Mean Corpuscular Hemoglobin 23.6 pg (27.0-31.0); Mean Corpuscular Volume 79.7 fL (78.0-102.0); Mean Platelet Volume 9.4 fl (9.2-11.8); Platelet Count Result 459 K/mm3 (150-420); Red Blood Count 4.23 M/mm3 (4.20-5.40); Red Cell Distribution Width 15.2 % (11.6-14.4)
[2025-01-25 11:12] LABS: White Blood Count 21.8 K/mm3 (4.8-10.8)
[2025-01-25 11:17] LABS: Alanine Aminotransferase 13 U/L (14-59); Albumin Level 1.9 g/dL (3.4-5.0); Alkaline Phosphatase 106 U/L (46-116); Anion Gap 9 mmol/L (4-12); Aspartate Amino Transferase 15 U/L (15-37); Bilirubin,Total 0.8 mg/dL (0.00-1.00); Blood Urea Nitrogen 12 mg/dL (7-18); Calcium 8.9 mg/dL (8.5-10.1); Carbon Dioxide 31 mmol/L (21-32); Chloride 97 mmol/L (98-108); Estimated CRCL calculation 51 ml/min; Estimated Glomerular Filt Rate 53; Glucose 146 mg/dL (70-99); Lipase 12 U/L (16-77); Osmolality Calculated 286 mOsm/kg (285-295); Potassium 3.1 mmol/L (3.5-5.1); Sodium 137 mmol/L (136-145); Total Protein 8.2 g/dL (6.4-8.2)
[2025-01-25 11:20] LABS: Band Neutrophils Percent 0 % (0-6); Lactic Acid Reflex 2.5 mmol/L (0.4-2.0); Lymphocytes Absolute Manual 1.74 K/mm3 (1.1-4.5); Lymphocytes Percent Manual 8 % (18-44); Monocytes Absolute Manual 1.09 K/mm3 (0.1-0.90); Monocytes Percent Manual 5 % (3-9); Neutrophils Absolute Manual 18.96 K/mm3 (1.7-7.2); Neutrophils Percent Manual 87 % (46-73); Platelet Estimate Slightly Increased (Adequate); Total Cells Counted 100
--- OUTSIDE RECORDS SUMMARY | 2025-01-25 11:37 | XMS_ITS | Clinical Summary ---
Author Organization [facility] Address [address] [place] [id number] Care Team Providers Care Carrier Packer Name Role Phone Unavailable Primary Care Provider Unavailabl e Social History Tobacco Use Types Packs/Day Years Used Date Smoking Tobacco: Never Assessed Comments Unknown Sex and Gender Information Value Date Recorded Sex Assigned at Not on file Legal Sex Female 1:41 AM CDT Gender Identity Not on file Sexual Orientation Not on file Plan of Treatment Health Maintenance Due Date Last Done Comments Colorectal Cancer Screening Colonoscopy (10 Years) 1950 Hepatitis C 1968 DTaP, Tdap and Td Vaccines ( 1 - Tdap) 1969 Mammogram Screening 1990 Pneumococcal Vaccine: 50+ Ye ars (1 of 1 - PCV) 2000 Zoster Vaccines (1 of 2) 2000 Dexa Scan (General) 12/21/2015 COVID-19 Vaccine (2023-2 5 season) 2024 RSV Immunization or 60+ Years (1 - 1-dose 75+ series) 2025 Meningococcal B Vaccine Aged Out No l onger eligible based on patient's age to complete this topic Meningococcal Vaccine Aged Out No elenita bailey eligible based on patient's age to complete this topic RSV Immunizations Under 20 Months Aged Out No longer eligible based on patient's age to complete this topic
--- NOTE | 2025-01-25 12:07 | PC.NURSE ---
stool sample sent to lab
--- OUTSIDE RECORDS SUMMARY | 2025-01-25 12:46 | XMS_ITS | Clinical Summary ---
Author Organization [facility] Address [address] [place] [id number] Care Team Providers Care Fuel Verification Technician Name Role Phone Unavailable Primary Care Provider [...]
[2025-01-25 12:52] LABS: Toxigenic C. Diff NEGATIVE (NEGATIVE)
[2025-01-25 13:00] LABS: Reflex Lactic Acid Yes or No Add Lactic
--- NOTE | 2025-01-25 13:03 | ED_ITS ---
HPI - Nausea/Vomiting/Diarrhea General Chief complaint: Nausea/Vomiting/Diarrhea Stated complaint: diarrhea Time Seen by Provider: 01/25/25 10:34 Source: patient Mode of arrival: ambulatory Limitations: no limitations History of Present Illness HPI Narrative: patient is a 74-year-old female with a significant past medical history that presents today for diarrhea. Patient has diarrhea and abdominal pain has had this for the last 4 days now. She says she has had a lot of diarrhea from 40 6 times a day. Him left lower quadrant abdominal pain. The patient is definitely dehydrated and she says everything has been going right through her. She has not taken any Imodium because she said she could not make it to the store to get some. She says she has no known history of diverticulitis. MD elicited complaint: nausea, diarrhea and abdominal pain Onset (ago): day(s) Description of diarrhea: mucus, watery and semi-solid Associated nausea: Yes Associated abdominal pain: Yes Location of pain: LLQ Radiation: diffuse Pain consistency: intermittent Severity: mild Pain scale (0-10): 3 Quality: cramping Exacerbating factors: bowel movement, movement and exertion Relieving factors: rest Associated symptoms: fever/chills, loss of appetite, nausea/vomiting, weakness and decreased urine output Related Data Home Medications ?Medication ?Instructions ?Recorded ?Confirmed ?Last Taken ?Type triamterene 37.5 1 cap PO DAILY 09/22/19 09/21/24 Unknown History mg-hydrochlorothiazide 25 mg capsule verapamil 240 mg tablet,extended 240 mg PO BID 09/22/19 09/21/24 Unknown History release Allergies Allergy/AdvReac Type Severity Reaction Status Date / Time ciprofloxacin (From Cipro) Allergy Rash Verified 01/25/25 10:42 codeine Allergy Rash Verified 01/25/25 10:42 ibuprofen (From Advil) AdvReac Other Verified 01/25/25 10:42 naproxen (From Aleve) AdvReac Other Verified 01/25/25 10:42 Review of Systems 2 Review of Systems: All systems reviewed & are unremarkable except as noted in HPI and below Constitutional: Constitutional: Reports as per HPI Eyes: Eyes: Reports no additional eye complaints ENT: Reports system reviewed and no additional complaints, except as documented Cardiovascular: Cardiovascular: Reports no additional cardiovascular complaints Respiratory: Respiratory: Reports no additional respiratory complaints Gastrointestinal: Gastrointestinal: Reports as per HPI, Reports abdominal pain, Reports diarrhea and Reports nausea Genitourinary: Genitourinary: Reports no additional female genitourinary complaints Musculoskeletal: Musculoskeletal: Reports no additional musculoskeletal complaints Integumentary/Breasts: Skin/Breast: Reports system reviewed and no additional complaints, except as docu Neurologic: Reports system reviewed and no additional complaints, except as documented Psychiatric: Psychiatric: Reports no additional psychiatric complaints Endocrine: Endocrine: Reports no additional endocrine complaints Hematologic/Lymphatic: Hematologic/Lymphatic: Reports no additional hematologic/lymphatic complaints Allergic/Immunologic: Allergic/Immunologic: Reports no additional allergic/immunologic complaints [facility] Past Medical History Medical History Diabetes 1.5, managed as type 2 Hypertension Surgical History Surgical History No history of previous surgery Family History Family History Mother Heart attack Diabetes mellitus Type II DM Father , heart attack Heart attack Heart disease Sibling , gynecological cancer (lining of uterus per patient) No problems noted. Social History Social History Smoking status: Never smoker Second hand tobacco smoke exposure: Yes (friend who lives with her) Alcohol intake: current Alcohol use details: occasional, [id number] Substance use: never Substance use type: does not use Exam 2 Const: General: healthy appearing Nutritional Appearance: well nourished Orientation/consciousness: patient oriented x3 Limitations: no limitations HENMT: Head: normal to inspection Ears: external ears normal F maria esther/Nose/Sinus: Normal external nose present Face and sinus: normal facial exam Eyes: Conjunctivae: conjunctivae normal Cornea: corneas normal Pupils: E qual, round and reactive pupils present Neck: Neck: normal visual inspection Chest: Chest palpation & inspection: normal inspection of the chest Resp: Effort & Inspection: normal respiratory effort Auscultation: clear to auscultation bilaterally Cardio: Rate: regular rate Rhythm: regular rhythm GI: Inspection: distended GI Palp: Yes Soft to palpation, Yes Tenderness to palpation present (GI) and Yes Guarding due to palpation present (GI) A uscultation: Hyperactive bowel sounds present : General: Yes bladder normal to palpation Back/Spine/Pelvis: Back: no CVA tenderness Skin: General skin exam: normal color Rashes: no rashes Wounds: no wounds Neuro: General: patient oriented x3 Cranial nerves: Yes Nystagmus not present Speech: normal speech Extrem: General: normal to inspection Psych: Mental Status: mental status grossly normal Affect: normal affect Attitude: cooperative Course Vital Signs Vital signs: Vital Signs Temperature 98.2 F 01/25/25 10:20 Pulse Rate 96 01/25/25 10:20 Respiratory Rate 20 01/25/25 10:20 Blood Pressure 137/74 01/25/25 10:20 Pulse Oximetry 98 01/25/25 10:20 Oxygen Delivery Room Air 01/25/25 10:20 Temperature 98.2 F 01/25/25 10:20 Pulse Rate 96 01/25/25 10:20 Respiratory Rate 20 01/25/25 10:20 Blood Pressure 137/74 01/25/25 10:20 Pulse Oximetry 98 01/25/25 10:20 Oxygen Delivery Room Air 01/25/25 10:20 Transfer Transfered to: [facility] - Nausea/Vomiting/Diarrhea Differential Diagnosis Differential diagnosis: Likely gastroenteritis, clostridium difficile infection and dehydration Medical Records Attestation: I reviewed the patient's medical records. Lab Data Attestation: I reviewed the patient's lab results. 01/25/25 10:58 01/25/25 10:58 Labs: Lab Results 01/25/25 01/25/25 01/25/25 Range/Units 10:40 10:58 11:59 WBC 21.8 H* (4.8-10.8) K/mm3 RBC 4.23 (4.20-5.40) M/mm3 Hgb 10.0 L (11.7-13.8) g/dL Hct 33.7 L (35.0-42.0) % MCV 79.7 (78.0-102.0) fL MCH 23.6 L (27.0-31.0) pg MCHC 29.7 L (32-36) g/dL RDW 15.2 H (11.6-14.4) % Plt Count 459 H (150-420) K/mm3 MPV 9.4 (9.2-11.8) fl Immature Gran % (Auto) Not Reportable Neut % (Auto) Not Reportable Lymph % (Auto) Not Reportable [place] % (Auto) Not Reportable Eos % (Auto) Not Reportable Baso % (Auto) Not Reportable Lymph # (Auto) Not Reportable [place] # (Auto) Not Reportable Eos # (Auto) Not Reportable Baso # (Auto) Not Reportable Abs Immat Gran (auto) Not Reportable Absolute Neuts (auto) Not Reportable Absolute Nucleated RBC Not Reportable Total Counted 100 Neutrophils % (Manual) 87 H (46-73) % Band Neutrophils % 0 (0-6) % Lymphocytes % (Manual) 8 L (18-44) % Monocytes % (Manual) 5 (3-9) % Nucleated RBC % Not Reportable Abs Neuts (Manual) 18.96 H (1.7-7.2) K/mm3 Abs Lymphs (Manual) 1.74 (1.1-4.5) K/mm3 Abs Monocytes (Manual) 1.09 H (0.1-0.90) K/mm3 Platelet Estimate Slightly increased (Adequate) Schistocytes Not Reportable Sodium 137 (136-145) mmol/L Potassium 3.1 L (3.5-5.1) mmol/L Chloride 97 L (98-108) mmol/L Carbon Dioxide 31 (21-32) mmol/L Anion Gap 9 (4-12) mmol/L BUN 12 (7-18) mg/dL Creatinine 1.02 (0.55-1.02) mg/dL Estim Creat Clear Calc 51 ml/min Estimated GFR 53 L (59 - ) Glucose 146 H (70-99) mg/dL Calculated Osmolality 286 (285-295) mOsm/kg Lactic Acid 2.5 H (0.4-2.0) mmol/L Calcium 8.9 (8.5-10.1) mg/dL Total Bilirubin 0.8 (0.00-1.00) mg/dL AST 15 (15-37) U/L ALT 13 L (14-59) U/L Alkaline Phosphatase 106 (46-116) U/L Total Protein 8.2 (6.4-8.2) g/dL Albumin 1.9 L (3.4-5.0) g/dL Lipase 12 L (16-77) U/L Urine Color Yellow (Yellow) Urine Appearance Clear (Clear) Urine pH 5.5 (5.0-8.0) Ur Specific [place] 1.010 (1.010-1.020) Urine Protein 1+ H (Negative) Urine Glucose (UA) Negative (Negative) Urine Ketones Negative (Negative) Ur Blood (Man) 3+ H (Negative) Urine Nitrate Negative (Negative) Urine Bilirubin Negative (Negative) Urine Urobilinogen 2.0 H (0.2-1.0) mg/dL Leukocyte Esterase Rfl Trace H (Negative) PRICE/UL Urine RBC 11-20 H (0-2) /hpf Urine WBC 0-5 (0-3) /hpf Ur Squamous Epith Cells Rare (Few) /hpf Urine Bacteria 2+ H (None) /hpf C. difficile (PCR) Negative (NEGATIVE) 01/25/25 Range/Units 13:06 WBC (4.8-10.8) K/mm3 RBC (4.20-5.40) M/mm3 Hgb (11.7-13.8) g/dL Hct (35.0-42.0) % MCV (78.0-102.0) fL MCH (27.0-31.0) pg MCHC (32-36) g/dL RDW (11.6-14.4) % Plt Count (150-420) K/mm3 MPV (9.2-11.8) fl Immature Gran % (Auto) Neut % (Auto) Lymph % (Auto) [place] % (Auto) Eos % (Auto) Baso % (Auto) Lymph # (Auto) [place] # (Auto) Eos # (Auto) Baso # (Auto) Abs Immat Gran (auto) Absolute Neuts (auto) Absolute Nucleated RBC Total Counted Neutrophils % (Manual) (46-73) % Band Neutrophils % (0-6) % Lymphocytes % (Manual) (18-44) % Monocytes % (Manual) (3-9) % Nucleated RBC % Abs Neuts (Manual) (1.7-7.2) K/mm3 Abs Lymphs (Manual) (1.1-4.5) K/mm3 Abs Monocytes (Manual) (0.1-0.90) K/mm3 Platelet Estimate (Adequate) Schistocytes Sodium (136-145) mmol/L Potassium (3.5-5.1) mmol/L Chloride (98-108) mmol/L Carbon Dioxide (21-32) mmol/L Anion Gap (4-12) mmol/L BUN (7-18) mg/dL Creatinine (0.55-1.02) mg/dL Estim Creat Clear Calc ml/min Estimated GFR (59 - ) Glucose (70-99) mg/dL Calculated Osmolality (285-295) mOsm/kg Lactic Acid 1.7 (0.4-2.0) mmol/L Calcium (8.5-10.1) mg/dL Total Bilirubin (0.00-1.00) mg/dL AST (15-37) U/L ALT (14-59) U/L Alkaline Phosphatase (46-116) U/L Total Protein (6.4-8.2) g/dL Albumin (3.4-5.0) g/dL Lipase (16-77) U/L Urine Color (Yellow) Urine Appearance (Clear) Urine pH (5.0-8.0) Ur Specific [place] (1.010-1.020) Urine Protein (Negative) Urine Glucose (UA) (Negative) Urine Ketones (Negative) Ur Blood (Man) (Negative) Urine Nitrate (Negative) Urine Bilirubin (Negative) Urine Urobilinogen (0.2-1.0) mg/dL Leukocyte Esterase Rfl (Negative) PRICE/UL Urine RBC (0-2) /hpf Urine WBC (0-3) /hpf Ur Squamous Epith Cells (Few) /hpf Urine Bacteria (None) /hpf C. difficile (PCR) (NEGATIVE) Imaging Data Attestation: I personally reviewed and interpreted this imaging study as follows: Discharge Plan Discharge Clinical Impression: Abscess of sigmoid colon, Diarrhea Patient Disposition: Home Condition: Stable Instructions: Acute Diarrhea (ED) Patient Language: Maldivian Prescriptions: No Action triamterene-hydrochlorothiazid 37.5-25 mg capsule 1 cap PO DAILY verapamil 240 mg tablet extended release 240 mg PO BID (DME) lancets [BD Microtainer Lancet] 30 gauge misc See Rx Instructions .Route Qty: 200 2RF Rx Instructions: ACHS (DME) blood-glucose meter Misc See Rx Instructions .ROUTE .MEDSUPPLY Qty: 1 0RF Rx Instructions: DAILY (DME) Blood Glucose Test Strip See Rx Instructions .Route Qty: 100 4RF Rx Instructions: ONCE DAILY pioglitazone 45 mg tablet See Rx Instructions .ROUTE .COMPLEX Qty: 90 0RF Dose Instruction: 45 MG ORALLY DAILY Rx Instructions: 45 MG ORALLY DAILY metoprolol succinate 50 mg tablet extended release 24 hr 50 mg PO DAILY Qty: 180 1RF glimepiride 4 mg tablet 4 mg PO BID Qty: 180 1RF Follow-up/Referrals: Lexy George APRN [Primary Care Provider] - Time of Disposition: 13:48
[2025-01-25 13:04] LABS: Add Urine Microscopic? YES; Appearance Urine Clear (Clear); Bilirubin Urine Negative (Negative); Blood Urine 3+ (Negative); Color Urine Yellow (Yellow); Glucose Urine UA Negative (Negative); Ketones Urine Negative (Negative); Leukocyte Esterase Ur Trace LEU/UL (Negative); Nitrate Urine Negative (Negative); Protein Urine 1+ (Negative); pH Urine 5.5 (5.0-8.0)
[2025-01-25 13:09] LABS: Bacteria Urine 2+ /hpf; WBC Urine 0-5 /hpf (0-3)
[2025-01-25 13:10] LABS: Squamous Epithelial Cell Urine Rare /hpf (Few)
[2025-01-25] MEDS: POTASSIUM CHLORIDE 20 MEQ ER TABLET 40 MEQ PO (13:24)
[2025-01-25] MEDS: PIPERACILLN/TAZ 3.375GM/NS50ML 3.375 GM/50 ML BAG IVPB (13:25)
[2025-01-25 13:32] LABS: Lactic Acid 1.7 mmol/L (0.4-2.0)
[2025-01-25] MEDS: VANCOMYCIN 1,250 MG/NS 250 ML 1,250 MG/250 ML BAG 166.67 MG IVPB ×2 (13:36→15:25)
--- NOTE | 2025-01-25 18:55 | ED_ITS ---
HPI - Nausea/Vomiting/Diarrhea General Chief complaint: Nausea/Vomiting/Diarrhea Stated complaint: diarrhea Time Seen by Provider: 01/25/25 10:34 Source: patient Mode of arrival: ambulatory Limitations: no limitations History of Present Illness Severity: mild Exacerbating factors: bowel movement, movement and exertion Relieving factors: rest Associated symptoms: fever/chills, loss of appetite, nausea/vomiting, weakness and decreased urine output Related Data Home Medications ?Medication ?Instructions ?Recorded ?Confirmed ?Last Taken ?Type triamterene 37.5 1 cap PO DAILY 09/22/19 09/21/24 Unknown History mg-hydrochlorothiazide 25 mg capsule verapamil 240 mg tablet,extended 240 mg PO BID 09/22/19 09/21/24 Unknown History release Allergies Allergy/AdvReac Type Severity Reaction Status Date / Time ciprofloxacin (From Cipro) Allergy Rash Verified 01/25/25 10:42 codeine Allergy Rash Verified 01/25/25 10:42 ibuprofen (From Advil) AdvReac Other Verified 01/25/25 10:42 naproxen (From Aleve) AdvReac Other Verified 01/25/25 10:42 Review of Systems 2 Review of Systems: All systems reviewed & are unremarkable except as noted in HPI and below Constitutional: Constitutional: Reports as per HPI Eyes: Eyes: Reports as per HPI ENT: Reports system reviewed and no additional complaints, except as documented Cardiovascular: Cardiovascular: Reports as per HPI Respiratory: Respiratory: Reports as per HPI Gastrointestinal: Gastrointestinal: Reports as per HPI, Reports abdominal pain, Reports diarrhea, Reports nausea and Reports vomiting Genitourinary: Genitourinary: Reports no additional female genitourinary complaints Musculoskeletal: Musculoskeletal: Reports no additional musculoskeletal complaints Integumentary/Breasts: Skin/Breast: Reports system reviewed and no additional complaints, except as docu Neurologic: Reports system reviewed and no additional complaints, except as documented Psychiatric: Psychiatric: Reports no additional psychiatric complaints Endocrine: Endocrine: Reports no additional endocrine complaints Hematologic/Lymphatic: Hematologic/Lymphatic: Reports no additional hematologic/lymphatic complaints Allergic/Immunologic: Allergic/Immunologic: Reports no additional allergic/immunologic complaints [facility] [place] Past Medical History Medical History Diabetes 1.5, managed as type 2 Hypertension Surgical History Surgical History No history of previous surgery Family History Family History Mother Heart attack Diabetes mellitus Type II DM Father , heart attack Heart attack Heart disease Sibling , gynecological cancer (lining of uterus per patient) No problems noted. Social History Social History Smoking status: Never smoker Second hand tobacco smoke exposure: Yes (friend who lives with her) Alcohol intake: current Alcohol use details: occasional, [id number] Substance use: never Substance use type: does not use Exam 2 Const: General: healthy appearing Nutritional Appearance: well nourished Orientation/consciousness: patient oriented x3 HENMT: Head: normal to inspection Ears: external ears normal F maria esther/Nose/Sinus: Normal external nose present Face and sinus: normal facial exam Eyes: Conjunctivae: conjunctivae normal Cornea: corneas normal Pupils: E qual, round and reactive pupils present EOM: EOMs intact bilaterally Neck: Neck: normal visual inspection Chest: Chest palpation & inspection: normal inspection of the chest Resp: Effort & Inspection: normal respiratory effort Auscultation: clear to auscultation bilaterally Cardio: Rate: regular rate Rhythm: regular rhythm GI: GI Palp: Yes Soft to palpation, Yes Tenderness to palpation present (GI), Yes Guarding due to palpation present (GI) and Yes Rigid due to palpation A uscultation: Hyperactive bowel sounds present Back/Spine/Pelvis: Back: no CVA tenderness Skin: General skin exam: normal color Rashes: no rashes Wounds: no wounds Neuro: General: patient oriented x3 Cranial nerves: Yes Nystagmus not present Speech: normal speech Extrem: General: normal to inspection Psych: Mental Status: mental status grossly normal Affect: normal affect Attitude: cooperative Course Vital Signs Vital signs: Vital Signs Temperature 98.2 F 01/25/25 10:20 Pulse Rate 96 01/25/25 10:20 Respiratory Rate 20 01/25/25 10:20 Blood Pressure 137/74 01/25/25 10:20 Pulse Oximetry 98 01/25/25 10:20 Oxygen Delivery Room Air 01/25/25 10:20 Temperature 98.2 F 01/25/25 10:20 Pulse Rate 72 01/25/25 17:01 Respiratory Rate 20 01/25/25 17:01 Blood Pressure 110/52 L 01/25/25 17:45 Pulse Oximetry 95 01/25/25 17:45 Oxygen Delivery Room Air 01/25/25 17:01 MDM - Nausea/Vomiting/Diarrhea MDM Narrative Medical decision making narrative: Patient has severe nausea vomiting and diarrhea. She is severely dehydrated she will need a few L of normal saline fluid. She had some little bit of tenderness on the left lower quadrant and she has had this diarrhea for around 5 days now so because this duration will do a CT scan of the abdomen pelvis with Lab Data 01/25/25 10:58 01/25/25 10:58 Labs: Lab Results 01/25/25 01/25/25 01/25/25 Range/Units 10:40 10:58 11:59 WBC 21.8 H* (4.8-10.8) K/mm3 RBC 4.23 (4.20-5.40) M/mm3 Hgb 10.0 L (11.7-13.8) g/dL Hct 33.7 L (35.0-42.0) % MCV 79.7 (78.0-102.0) fL MCH 23.6 L (27.0-31.0) pg MCHC 29.7 L (32-36) g/dL RDW 15.2 H (11.6-14.4) % Plt Count 459 H (150-420) K/mm3 MPV 9.4 (9.2-11.8) fl Immature Gran % (Auto) Not Reportable Neut % (Auto) Not Reportable Lymph % (Auto) Not Reportable [place] % (Auto) Not Reportable Eos % (Auto) Not Reportable Baso % (Auto) Not Reportable Lymph # (Auto) Not Reportable [place] # (Auto) Not Reportable Eos # (Auto) Not Reportable Baso # (Auto) Not Reportable Abs Immat Gran (auto) Not Reportable Absolute Neuts (auto) Not Reportable Absolute Nucleated RBC Not Reportable Total Counted 100 Neutrophils % (Manual) 87 H (46-73) % Band Neutrophils % 0 (0-6) % Lymphocytes % (Manual) 8 L (18-44) % Monocytes % (Manual) 5 (3-9) % Nucleated RBC % Not Reportable Abs Neuts (Manual) 18.96 H (1.7-7.2) K/mm3 Abs Lymphs (Manual) 1.74 (1.1-4.5) K/mm3 Abs Monocytes (Manual) 1.09 H (0.1-0.90) K/mm3 Platelet Estimate Slightly increased (Adequate) Schistocytes Not Reportable Sodium 137 (136-145) mmol/L Potassium 3.1 L (3.5-5.1) mmol/L Chloride 97 L (98-108) mmol/L Carbon Dioxide 31 (21-32) mmol/L Anion Gap 9 (4-12) mmol/L BUN 12 (7-18) mg/dL Creatinine 1.02 (0.55-1.02) mg/dL Estim Creat Clear Calc 51 ml/min Estimated GFR 53 L (59 - ) Glucose 146 H (70-99) mg/dL Calculated Osmolality 286 (285-295) mOsm/kg Lactic Acid 2.5 H (0.4-2.0) mmol/L Calcium 8.9 (8.5-10.1) mg/dL Total Bilirubin 0.8 (0.00-1.00) mg/dL AST 15 (15-37) U/L ALT 13 L (14-59) U/L Alkaline Phosphatase 106 (46-116) U/L Total Protein 8.2 (6.4-8.2) g/dL Albumin 1.9 L (3.4-5.0) g/dL Lipase 12 L (16-77) U/L Urine Color Yellow (Yellow) Urine Appearance Clear (Clear) Urine pH 5.5 (5.0-8.0) Ur Specific [place] 1.010 (1.010-1.020) Urine Protein 1+ H (Negative) Urine Glucose (UA) Negative (Negative) Urine Ketones Negative (Negative) Ur Blood (Man) 3+ H (Negative) Urine Nitrate Negative (Negative) Urine Bilirubin Negative (Negative) Urine Urobilinogen 2.0 H (0.2-1.0) mg/dL Leukocyte Esterase Rfl Trace H (Negative) PRICE/UL Urine RBC 11-20 H (0-2) /hpf Urine WBC 0-5 (0-3) /hpf Ur Squamous Epith Cells Rare (Few) /hpf Urine Bacteria 2+ H (None) /hpf C. difficile (PCR) Negative (NEGATIVE) 04/21/25 Range/Units 13:06 WBC (4.8-10.8) K/mm3 RBC (4.20-5.40) M/mm3 Hgb (11.7-13.8) g/dL Hct (35.0-42.0) % MCV (78.0-102.0) fL MCH (27.0-31.0) pg MCHC (32-36) g/dL RDW (11.6-14.4) % Plt Count (150-420) K/mm3 MPV (9.2-11.8) fl Immature Gran % (Auto) Neut % (Auto) Lymph % (Auto) [place] % (Auto) Eos % (Auto) Baso % (Auto) Lymph # (Auto) [place] # (Auto) Eos # (Auto) Baso # (Auto) Abs Immat Gran (auto) Absolute Neuts (auto) Absolute Nucleated RBC Total Counted Neutrophils % (Manual) (46-73) % Band Neutrophils % (0-6) % Lymphocytes % (Manual) (18-44) % Monocytes % (Manual) (3-9) % Nucleated RBC % Abs Neuts (Manual) (1.7-7.2) K/mm3 Abs Lymphs (Manual) (1.1-4.5) K/mm3 Abs Monocytes (Manual) (0.1-0.90) K/mm3 Platelet Estimate (Adequate) Schistocytes Sodium (136-145) mmol/L Potassium (3.5-5.1) mmol/L Chloride (98-108) mmol/L Carbon Dioxide (21-32) mmol/L Anion Gap (4-12) mmol/L BUN (7-18) mg/dL Creatinine (0.55-1.02) mg/dL Estim Creat Clear Calc ml/min Estimated GFR (59 - ) Glucose (70-99) mg/dL Calculated Osmolality (285-295) mOsm/kg Lactic Acid 1.7 (0.4-2.0) mmol/L Calcium (8.5-10.1) mg/dL Total Bilirubin (0.00-1.00) mg/dL AST (15-37) U/L ALT (14-59) U/L Alkaline Phosphatase (46-116) U/L Total Protein (6.4-8.2) g/dL Albumin (3.4-5.0) g/dL Lipase (16-77) U/L Urine Color (Yellow) Urine Appearance (Clear) Urine pH (5.0-8.0) Ur Specific [place] (1.010-1.020) Urine Protein (Negative) Urine Glucose (UA) (Negative) Urine Ketones (Negative) Ur Blood (Man) (Negative) Urine Nitrate (Negative) Urine Bilirubin (Negative) Urine Urobilinogen (0.2-1.0) mg/dL Leukocyte Esterase Rfl (Negative) PRICE/UL Urine RBC (0-2) /hpf Urine WBC (0-3) /hpf Ur Squamous Epith Cells (Few) /hpf Urine Bacteria (None) /hpf C. difficile (PCR) (NEGATIVE) Discharge Plan Discharge Clinical Impression: Abscess of sigmoid colon, Diarrhea Patient Disposition: Home Condition: Stable Instructions: Acute Diarrhea (ED) Patient Language: Luxembourgish Prescriptions: No Action triamterene-hydrochlorothiazid 37.5-25 mg capsule 1 cap PO DAILY verapamil 240 mg tablet extended release 240 mg PO BID (DME) lancets [BD Microtainer Lancet] 30 gauge misc See Rx Instructions .Route Qty: 200 2RF Rx Instructions: ACHS (DME) blood-glucose meter Misc See Rx Instructions .ROUTE .MEDSUPPLY Qty: 1 0RF Rx Instructions: DAILY (DME) Blood Glucose Test Strip See Rx Instructions .Route Qty: 100 4RF Rx Instructions: ONCE DAILY pioglitazone 45 mg tablet See Rx Instructions .ROUTE .COMPLEX Qty: 90 0RF Dose Instruction: 45 MG ORALLY DAILY Rx Instructions: 45 MG ORALLY DAILY metoprolol succinate 50 mg tablet extended release 24 hr 50 mg PO DAILY Qty: 180 1RF glimepiride 4 mg tablet 4 mg PO BID Qty: 180 1RF Follow-up/Referrals: Lexy George APRN [Primary Care Provider] - Time of Disposition: 13:48
--- NOTE | 2025-01-25 19:45 | PC.NURSE ---
ERP aware of pt's vital signs. No new orders at this time.
== END 2025-01-25 19:45 | disposition short-term general hospital (02) ==
PROVIDERS: Emergency Provider Family Medicine; PCP Nurse Practitioner Family
DX: K63.0 Abscess of intestine (principal); R19.7 Diarrhea, unspecified; I10 Essential (primary) hypertension; E13.9 Other specified diabetes mellitus without complications
CPT/HCPCS: 36415; 74177; 80053; 81001; 83605; 83690; 85025; 87493; 96365; 96366; 96367; 96375; 99285; A9270; J2405; J2543; J3370; J7030; Q9967

== ENCOUNTER 2025-01-25 20:41 | Inpatient (IN) | payer MEDICARE, SELFPAY ==
--- NOTE | ~2025-01-25 | CT_ITS ---
EXAMINATION: CT pelvis wo con DATE: 01/26/2025 13:20 INDICATION: Pelvic diverticular abscess TECHNIQUE: Computed tomography (CT) of the pelvis was performed without intravenous contrast as a sco ut for planned drainage catheter placement. Despite attempts at adjusting her position, the patient f elt that she was unable to continue the procedure due to discomfort and the planned drainage catheter placement was canceled. The dose-length product was 50.77 mGy-cm. COMPARISON: 01/25/2025 FINDINGS: No significant interval change in a bilobed gas and fluid containing abscess in the deep pelvis along the right side of the distal sigmoid colon. Espinoza catheter within the decompressed bladder. IMPRESSION: 1. No significant change in a bilobed gas and fluid containing abscess in the deep pelvis. Patient ca nceled the planned percutaneous abscess drainage catheter placement due to discomfort despite attempt s at repositioning. Reviewed, dictated and finalized at location A. IMPRESSION: 1. No significant change in a bilobed gas and fluid containing abscess in the d eep pelvis. Patient canceled the planned percutaneous abscess drainage catheter placement due to discomfort despite attempts at repositioning.
--- NOTE | ~2025-01-25 | XR_ITS ---
Portable chest x-ray Comparison: 02/03/2025 Clinical History: Intubation Findings: Endotracheal tube, NG tube, and right IJ line are in place. Moderate bilateral pleural eff usions are present with mild pulmonary edema pattern. Cardiomediastinal silhouette is stable. Bones and soft tissues are unremarkable. Impression: Moderate bilateral pleural effusions with mild pulmonary edema pattern. Support tubes, as above. Reviewed, dictated and finalized at location . Impression: Moderate bilateral pleural effusions with mild pulmonary edema pattern. Support tubes, as above.
--- NOTE | ~2025-01-25 | XR_ITS ---
EXAMINATION: XR chest 1V portable Exam Date/Time: 02/01/2025 14:45 CDT HISTORY: eval for pnemonia, hypoxia Comparison: 08/09/2023. RESULT: Lines, tubes, and devices: None. Lungs and pleura: Subsegmental left basilar and subsegmental right basilar airspace disease. Mild ri ght costophrenic angle blunting. Cardiomediastinal silhouette: Stable. Other: No acute osseous or upper abdominal finding. IMPRESSION: Bibasilar atelectasis/consolidation, worse in the right lung base. Possible small right pleural effus ion. Reviewed, dictated and finalized at location K. IMPRESSION: Bibasilar atelectasis/consolidation, worse in the right lung base. Possible sma ll right pleural effusion.
--- NOTE | ~2025-01-25 | XR_ITS ---
MODIFIED ESOPHAGRAM HISTORY: Recent intubation TECHNIQUE: Modified barium esophagram was performed on 02/08/2025. I administered fluoroscopy and perfo rmed the exam with speech pathologist. Patient was seated for lateral fluoroscopic imaging for inges tion of thin liquids, pudding, solids and quantified amounts, followed by thin liquids in uncontrolle d amounts. This was recorded on tape. A single fluoroscopic spot image was recorded. The DAP for this procedure was 0.844 Gycm2. The amount of fluoroscopy time used during this procedure was 1.1 minutes . FINDINGS: Oral stage: Adequate function. Pharyngeal stage: There is reduced laryngeal elevation and adduction. Reduced tongue base retraction. There is vallecular residue. There is laryngeal penetration with aspiration. There are prominent ant erior cervical osteophytes at multiple levels. Cervical/esophageal stage: Adequate function. IMPRESSION: Pharyngeal dysphagia with laryngeal penetration and aspiration. Please correlate with sp eech pathologist findings and specific feeding recommendations. Reviewed, dictated and finalized at location A. IMPRESSION: Pharyngeal dysphagia with laryngeal penetration and aspiration. Pl ease correlate with speech pathologist findings and specific feeding recommenda tions.
--- NOTE | ~2025-01-25 | CT_ITS ---
Non-contrast CT scan of the Abdomen and Pelvis Clinical indication: Leukocytosis, abscess Technique: 2.5 mm axial scans were obtained through the abdomen and pelvis without intravenous or or al contrast. Dose reduction technique was used on this scan by utilizing automated exposure control a nd iterative reconstruction technique. The dose-length product (DLP) was 1786.47 mGy-cm. COMPARISON: 01/25/2025 Findings: Images through the lung bases reveal small right pleural effusion and right basilar atelec tatic change. Stable nonobstructing right renal calculi. Punctate nonobstructing left renal stone. No hydronephrosi s. The liver, spleen, pancreas, and left adrenal gland appear normal. Multiple small calcified gallstone s and gallbladder sludge are present. Stable right adrenal myelolipoma. There is no aortic aneurysm. There is no evidence of bowel obstruction. Stable bilobed or multilocular abscess extensively abuttin g the distal sigmoid colon and rectum. Wall thickening of the distal sigmoid colon and rectum again p resent. Images through the pelvis were performed. Urinary bladder collapsed around a Espinoza catheter. No adnex al mass evident otherwise. Impression: Stable large bilobed multilocular abscess in the pelvis extensively involving the distal sigmoid colo n and rectum. Stable wall thickening of the distal sigmoid colon and rectum. Small right pleural effusion with right basilar atelectatic change. Cholelithiasis. Nephrolithiasis bilaterally, as detailed above. Reviewed, dictated and finalized at [facility]. Impression: Stable large bilobed multilocular abscess in the pelvis extensively involving t he distal sigmoid colon and rectum. Stable wall thickening of the distal sigmoi d colon and rectum. Small right pleural effusion with right basilar atelectatic change. Cholelithiasis. Nephrolithiasis bilaterally, as detailed above.
--- NOTE | ~2025-01-25 | XR_ITS ---
EXAMINATION: XR chest 1V portable DATE: 02/06/2025 05:34 INDICATION: Intubation TECHNIQUE: AP view of the chest was obtained. COMPARISON: Chest radiograph dated 02/05/2025 FINDINGS: Endotracheal tube tip 3.8 cm above the brennan. Nasogastric tube extends below the left hemidiaphragm with distal tip collimated off the study. Right internal jugular central venous catheter with distal tip at the superior cavoatrial junction. Retrocardiac consolidation with air bronchograms in the left lower lung zone. Less dense are hazy and streaky opacities in the right lower lung zone and to a small right pleural effusion. No pneumothora x or definitive left pleural effusion. Heart size is normal. IMPRESSION: 1. Unchanged consolidation in the left lower lung zone which could represent atelectasis or pneumonia . 2. Small right pleural effusion with right basilar atelectasis versus pneumonia. Reviewed, dictated and finalized at location A. IMPRESSION: 1. Unchanged consolidation in the left lower lung zone which could represent at electasis or pneumonia. 2. Small right pleural effusion with right basilar atelectasis versus pneumonia .
--- NOTE | ~2025-01-25 | XR_ITS ---
Portable chest x-ray Comparison: 02/04/2025 Clinical History: Intubation Findings: Endotracheal tube, NG tube, and right-sided annular place. Minimal right pleural effusion present with probable mild bibasilar pulmonary edema/atelectasis. Cardiomediastinal silhouette is st able. Bones and soft tissues are unremarkable. Impression: Probable mild bibasilar pulmonary edema/atelectasis with minimal right pleural effusion. Support tubes, as above. Reviewed, dictated and finalized at location . Impression: Probable mild bibasilar pulmonary edema/atelectasis with minimal right pleural effusion. Support tubes, as above.
--- NOTE | ~2025-01-25 | XR_ITS ---
MODIFIED ESOPHAGRAM HISTORY: Assess for aspiration TECHNIQUE: Modified barium esophagram was performed on 02/15/2025. I administered fluoroscopy and perf ormed the exam with speech pathologist. Patient was seated for lateral fluoroscopic imaging for manuel stion of thin liquids, pudding, solids and quantified amounts, followed by thin liquids in uncontroll ed amounts. This was recorded on tape. A single fluoroscopic spot image was also recorded. The DAP fo r this procedure was 1.385 Gycm2. The amount of fluoroscopy time used during this procedure was 2.4 m inutes. FINDINGS: Oral stage: Adequate function. Pharyngeal stage: Reduced laryngeal elevation, tongue base retraction and pharyngeal squeeze. There i s vallecular residue. There is laryngeal penetration without aspiration.. Cervical/esophageal stage: Adequate function. IMPRESSION: Pharyngeal dysphagia with laryngeal penetration without aspiration. Please correlate wit h speech pathologist findings and specific feeding recommendations. Reviewed, dictated and finalized at location A. IMPRESSION: Pharyngeal dysphagia with laryngeal penetration without aspiration. Please correlate with speech pathologist findings and specific feeding recomm endations.
--- NOTE | ~2025-01-25 | XR_ITS ---
XR chest 1V portable Ordering provider: Colette Foley MD History: 74 years Female with . respiratory failure . Comparison: February 06, 2025 FINDINGS: MEDIASTINUM: The cardiac silhouette is slightly enlarged. Congestive vania. A right central line with the tip overlying the superior vena cava. LUNGS: No pneumothorax. Bibasilar opacification suggestive of atelectasis versus pneumonia. Increased pleural effusions seen bilaterally more on the right side. OTHER: No free air under the diaphragm. Degenerative changes of the spine. IMPRESSION: Bibasilar atelectasis versus pneumonia. Increased pleural effusion more on the right side. Reviewed, dictated and finalized at location A.
--- NOTE | ~2025-01-25 | XR_ITS ---
XR abdomen obstructive series Ordering provider: Colette Foley MD History: . abdominal pain . Comparison: None. FINDINGS: BOWEL: Nonobstructive bowel gas pattern. ORGANOMEGALY: None. SIGNIFICANT PATHOLOGIC CALCIFICATIONS: None. OTHER: No free air is seen under the diaphragm. Degenerative changes of the spine. Minimal opacification the lung bases noted excluded. Catheter is seen in the left femoral neck area IMPRESSION: NO ACUTE ABDOMINAL FINDINGS. Reviewed, dictated and finalized at location A.
--- NOTE | ~2025-01-25 | XR_ITS ---
XR chest ET placement Ordering provider: Colette Foley MD History: 74 years Female with . After intubation to confirm ET placement . Comparison: February 01, 2025 FINDINGS: MEDIASTINUM: The cardiac silhouette is slightly enlarged. Right central line with the tip overlying s uperior vena cava. Nasogastric tube with the tip extending into the stomach. Endotracheal tube with t he tip 3.5 cm above the brennan. Congestive vania. LUNGS: No pneumothorax. Bibasilar opacification suggestive of atelectasis versus pneumonia. Possible right pleural effusion. OTHER: No free air under the diaphragm. IMPRESSION: Bibasilar pneumonia. Right pleural effusion. Underlying pulmonary edema is not excluded. Reviewed, dictated and finalized at location A.
--- NOTE | ~2025-01-25 | XR_ITS ---
MODIFIED ESOPHAGRAM HISTORY: Aspiration TECHNIQUE: Modified barium esophagram was performed on 02/11/2025. I administered fluoroscopy and perfo rmed the exam with speech pathologist. Patient was seated for lateral fluoroscopic imaging for inges tion of thin liquids, pudding, solids and quantified amounts, followed by thin liquids in uncontrolle d amounts. This was recorded on tape. A single fluoroscopic spot image was also recorded. The DAP for this procedure was 1.4 Gycm2. The amount of fluoroscopy time used during this procedure was 2.5 wilma marya. FINDINGS: Oral stage: Adequate function. Pharyngeal stage: Reduced laryngeal elevation and adduction. Reduced tongue base retraction. There is laryngeal penetration aspiration with thin liquids including with chin tuck modification. Cervical/esophageal stage: Adequate function. IMPRESSION: Pharyngeal dysphagia with laryngeal penetration and aspiration with thin liquids. Please correlate with speech pathologist findings and specific feeding recommendations. Reviewed, dictated and finalized at location A.
--- NOTE | ~2025-01-25 | CT_ITS ---
EXAMINATION: CT abdomen pelvis wo con DATE: 02/15/2025 08:14 INDICATION: Pelvic abscess TECHNIQUE: Computed tomography (CT) of the abdomen and pelvis was performed without intravenous contr ast. Automated exposure control and iterative reconstruction technique were employed. The dose-length product was 1591.07 mGy-cm. COMPARISON: 02/10/2025 FINDINGS: Small bilateral pleural effusions with dependent atelectasis in both of the lower lungs. Bilateral sm all calcified pulmonary nodules along with calcified left hilar lymphadenopathy and multiple small sp lenic calcifications consistent with old granulomatous disease. Numerous calcified gallstones the dep endent aspect of the otherwise normal-appearing gallbladder. Liver, pancreas and left adrenal gland a re normal. 4 cm low-attenuation right adrenal adenoma versus myelolipoma. Bilateral nonobstructing ne phrolithiasis with 2 mm stone in upper pole calyx of the left kidney and at least 3 stones the right kidney the largest at the renal pelvis measuring 2.0 cm. Significant decrease in size of a presacral abscess cavity post percutaneous right transgluteal drainage catheter placement. The residual abscess cavity measures up to 3.6 x 2.0 cm however assessment is limited in the absence of intravenous contr ast is unclear to what extent this represents residual fluid versus residual peripheral wall and surr ounding inflammation. Anterior to the drainage catheter loop is what appears be an inflamed diverticu lum along the distal sigmoid colon which likely represents the etiology for the abscess. There is old contrast material throughout the colon extending to the rectum with no evident extraluminal leakage of contrast at the site of suspected diverticulitis. There are additional scattered diverticula most prominent along the cecum and the descending and sigmoid colon without adjacent from trace stranding to suggest diverticulitis. No bowel obstruction. There are some gas as well as a Espinoza catheter in th e bladder. Anteverted uterus and bilateral adnexa are unremarkable. Severe thoracic and lumbar spondy losis with bridging osteophytes at multiple levels consistent with diffuse idiopathic skeletal hypero stosis (DISH). IMPRESSION: 1. Significant decrease in size of a presacral abscess likely related to prior sigmoid diverticulitis post right transgluteal percutaneous abscess drainage catheter placement. 2. Small bilateral pleural effusions with dependent compressive atelectasis in both lungs. 3. Cholelithiasis. 4. Bilateral nonobstructing nephrolithiasis. Reviewed, dictated and finalized at location A. IMPRESSION: 1. Significant decrease in size of a presacral abscess likely related to prior sigmoid diverticulitis post right transgluteal percutaneous abscess drainage ca theter placement. 2. Small bilateral pleural effusions with dependent compressive atelectasis in both lungs. 3. Cholelithiasis. 4. Bilateral nonobstructing nephrolithiasis.
--- NOTE | ~2025-01-25 | CT_ITS ---
EXAMINATION: CT guide absc cath placement DATE: 02/12/2025 12:34 INDICATION: Pelvic abscess TECHNIQUE: The procedure including the risks and benefits was discussed with the patient. Risks discu ssed included bleeding and infection. The patient understood the risks and benefits and agreed to pro ceed. The patient was confirmed to be receiving appropriate antibiotic coverage. The skin overlying the right buttock overlying the region of the lateral margin of the sacrococcygeal junction was prepp ed and draped in usual sterile fashion. Conscious sedation was provided with 50 mcg fentanyl IV. Anes thetic was administered with 1% lidocaine subcutaneously. An 18-gauge trochar needle was inserted int o the pelvic fluid collection utilizing CT guidance. The inner stylette was removed and a J-wire was advanced through the needle into the fluid collection with position confirmed by CT. Utilizing Seldin bailey technique the needle was removed over the wire and the tract serially dilated to 10 [place]. A 10 [place]an catheter was then inserted over the wire and the loop formed and locked with position confirme d by CT. The wire and metal stiffener were removed. The catheter was stitched to the skin with suture . Antibiotic ointment and a sterile dressing were applied. 10 mm of opaque maroon-colored purulent ap pearing fluid was aspirated and sent to lab for Gram stain and cultures. The catheter was then attach ed to suction drainage and was draining additional minimal amount of purulent appearing fluid at the conclusion of the procedure. There were no immediate complications. The dose-length product was 228.4 2 mGy-cm. FINDINGS: CT images demonstrate the catheter within the presacral pelvic fluid collection. 10 mL flui d was aspirated for testing. IMPRESSION: 1. Successful CT-guided pelvic abscess drainage catheter placement. 2. 10 mL fluid was sent for aerobic and anaerobic cultures. 3. The catheter will be managed by Dr. Goins. Reviewed, dictated and finalized at location A.
--- NOTE | ~2025-01-25 | XR_ITS ---
EXAMINATION: XR chest 1V portable DATE: 02/15/2025 11:30 INDICATION: Shortness of breath TECHNIQUE: frontal view of the chest was obtained. COMPARISON: Chest radiograph dated 02/08/2025 FINDINGS: Gradient of basilar predominant hazy airspace opacities in bilateral mid and lower lung zones with bl unting at the costophrenic angles consistent with small bilateral posterior layering pleural effusion s and associated basilar atelectasis and/or pneumonia. No pneumothorax. Heart size is normal. IMPRESSION: 1. Small bilateral pleural effusions with associated bibasilar atelectasis and/or pneumonia. Reviewed, dictated and finalized at location A. IMPRESSION: 1. Small bilateral pleural effusions with associated bibasilar atelectasis and/ or pneumonia.
--- NOTE | ~2025-01-25 | CT_ITS ---
CLINICAL INDICATION: Evaluate pelvic abscess COMPARISON: 01/29/2025 and dating back to 01/25/2025. TECHNIQUE: Multiple contiguous axial images of the abdomen and pelvis were performed following the ad ministration of with 100 mL Omnipaque-350 intravenous contrast The dose-length product (DLP) was 1637.72 mGy-cm. Automated exposure control and iterative reconstruction technique were employed. FINDINGS/OBSERVATIONS: Visualized lower thorax: Interval development of bilateral pleural effusions, right greater than left with adjacent compressiv e atelectasis. Interval development of right lower lobe consolidation is also present. The heart is of normal size, without pericardial effusion. Nasogastric tube extends into the stomach. Interval development of minimally displaced subacute fractures within the anterior fifth, sixth and s eventh right ribs, likely during cardiopulmonary resuscitation on 02/02/2025. No left-sided rib fractures are appreciated. Liver: The liver demonstrates homogeneous enhancement and is enlarged measuring 21 cm in longitudinal dimens ion. Gallbladder and biliary system: Multiple stones are redemonstrated within the gallbladder, which is distended and otherwise unremarka ble. Pancreas: The pancreas enhances homogeneously without ductal dilatation. Spleen: Punctate calcifications identified within the splenic parenchyma, suggesting prior granulomat ous disease. The remainder of the spleen otherwise enhances homogeneously and is not enlarged. Kidneys: Stable nonobstructing bilateral renal calculi, right greater than left. Adrenal glands: Unremarkable. Gastrointestinal tract: Colonic diverticulosis without surrounding inflammatory change. Vasculature: Unremarkable. Lymph nodes: No pathologically enlarged or morphologically suspicious lymph nodes within the retroperitoneum or at the root of the mesentery. Pelvic structures: The bladder is decompressed with a Espinoza catheter, although with a large anterior air-fluid level. Interval resolution of the abscess previously detected within the vesicouterine pouch for which pigta il catheter can be removed. Residual rim-enhancing fluid collection within the rectal uterine pouch is present. This collection m easures 6.5 x 3.6 x 6.5 cm. Body wall and musculoskeletal: Age-appropriate degenerative disease within the lumbosacral spine. IMPRESSION: Interval resolution of the abscess previously detected within the vesicouterine pouch for which pigta il catheter can be removed. Residual rim-enhancing fluid collection within the rectouterine pouch measuring 6.5 cm in greatest di mension. Interval development of bilateral pleural effusions, right greater than left with right basilar conso lidation. Reviewed, dictated and finalized at location A. IMPRESSION: Interval resolution of the abscess previously detected within the vesicouterine pouch for which pigtail catheter can be removed. Residual rim-enhancing fluid collection within the rectouterine pouch measuring 6.5 cm in greatest dimension. Interval development of bilateral pleural effusions, right greater than left wi th right basilar consolidation.
--- NOTE | ~2025-01-25 | XR_ITS ---
EXAMINATION: XR fl Dobhoff insert/rad w img DATE: 02/09/2025 14:59 INDICATION: Failed swallow study. Need for nutrition. TECHNIQUE: A Dobbhoff type feeding tube was advanced into the duodenum utilizing intermittent fluoroscopy. 10 mL of Omnipaque 350 was injected through the tube to delineate the anatomy and aid in advancement of th e tube. Final image demonstrates the feeding tube in position with the weighted tip at the expected l ocation of the ligament of Treitz. The tube was flushed with 10 mL sterile saline and fixed to the na res with adhesive tape. A single fluoroscopic image was recorded. The amount of fluoroscopy time used during this procedure was 1.7 minutes. There were no immediate complications. FINDINGS/IMPRESSION: Successful fluoroscopy-guided Dobbhoff feeding tube placement with distal tip in the fourth portion o f the duodenum. Reviewed, dictated and finalized at location A.
--- NOTE | ~2025-01-25 | CT_ITS ---
EXAMINATION: CT guide absc cath placement DATE: 02/02/2025 12:47 INDICATION: Perforated diverticulitis of the rectosigmoid colon with intra-abdominal abscesses and le ukocytosis. Moderate sedation was given by nursing staff at the direction of myself with continuous monitoring of patient's vital signs. Sedation time was 51 minutes. The patient received 2mg of Versed and 100micrograms of fentanyl over a 51 minute period. TECHNIQUE: The procedure including the risks, benefits, and alternatives was discussed with the patie nt. Risks discussed included bleeding, nontargeted drainage and worsening infection. The patient unde rstood the risks and benefits and agreed to proceed. The patient was confirmed to be receiving approp riate antibiotic coverage. Unfortunately, the patient was unable to lay prone or supine and agreed to only be in the lateral dec ubitus position for the procedure. She was moved to the CT table and placed in the lateral decubitus position. Contrast-enhanced imaging was then performed of the lower abdomen and pelvis. This demonstr ated a bilobed rim-enhancing fluid collection, which are wrapped around the rectosigmoid colon and ex tended into the pouch of Rc. The skin overlying the left lateral lower abdominal wall was preppe d and draped in usual sterile fashion. Anesthetic was administered with 1% lidocaine subcutaneously. Approximately 10 to 15 cc of normal saline was then instilled for hydrodissection, in order to mobil ize the bladder anteriorly. An 18 gauge trochar needle was inserted into the abscess cavity following successful hydrodissection. The needle was exchanged over a wire and after serial dilatation a 10 Fr ench pigtail catheter was advanced. Approximately 12 to 14 cc of grossly purulent foul-smelling fluid was returned. Once the return of purulent fluid was observed, the patient became unresponsive and pulseless. PEA wa s observed, a CODE BLUE was activated. The drainage catheter was locked into place and attached to ac cordion suction while rapid CPR was performed. The catheter was stitched to the skin, and a sterile dressing was applied. The dose-length product was 656.77 mGy-cm. FINDINGS: CT images demonstrate the trocar needle and wire within the fluid collection. 12-14 mL of grossly purulent fluid was aspirated for testing. IMPRESSION: 1. Technically successful CT-guided drainage catheter placement with likely translocation and overwhe lming sepsis following initial aspiration with subsequent cardiac and respiratory arrest. 2. 12-14 mL fluid was sent for aerobic and anaerobic cultures. Please see separate CODE BLUE flow sheet for additional details of the CODE BLUE portion of the case. Reviewed, dictated and finalized at location A. IMPRESSION: 1. Technically successful CT-guided drainage catheter placement with likely tra nslocation and overwhelming sepsis following initial aspiration with subsequent cardiac and respiratory arrest. 2. 12-14 mL fluid was sent for aerobic and anaerobic cultures. Please see separate CODE BLUE flow sheet for additional details of the CODE ARNULFO E portion of the case.
--- NOTE | ~2025-01-25 | XR_ITS ---
Portable chest x-ray Comparison: 02/02/2025 Clinical History: Intubation Findings: Endotracheal tube, NG tube, and right IJ line are in place. Small bilateral pleural effusi ons are present with mild pulmonary edema pattern. Cardiomediastinal silhouette is stable. Bones and soft tissues are unremarkable. Impression: Mild pulmonary edema pattern with small bilateral pleural effusions. Support tubes, as above. Reviewed, dictated and finalized at location . Impression: Mild pulmonary edema pattern with small bilateral pleural effusions. Support tubes, as above.
--- NOTE | ~2025-01-25 | XR_ITS ---
XR abdomen gastric tube insert Ordering provider: Colette Foley MD History: . og tube insertion . Comparison: None. FINDINGS/impression: Nasogastric tube with the tip in the body of the stomach. The sidehole is near to the gastroesophagea l junction. Slight advancement of the tube is advised. Reviewed, dictated and finalized at location A.
--- NOTE | ~2025-01-25 | XR_ITS ---
Portable chest x-ray Comparison: 02/07/2025 Clinical History: Pulmonary vascular congestion Findings: Stable right IJ line. Moderate bilateral pleural effusions are present. There is bibasilar pulmonary edema/atelectasis. Cardiomediastinal silhouette is stable. Bones and soft tissues are unre markable. Impression: Moderate bilateral pleural effusions with bibasilar pulmonary edema/atelectasis. Reviewed, dictated and finalized at location . Impression: Moderate bilateral pleural effusions with bibasilar pulmonary edema/atelectasis .
--- OUTSIDE RECORDS SUMMARY | 2025-01-25 20:27 | XMS_ITS | Clinical Summary ---
Author Organization [facility] Address [address] [place] [id number] Care Team Providers Care Escrow Representative Name Role Phone Unavailable Primary Care Provider [...]
--- NOTE | 2025-01-25 20:36 | PM.IMHP ---
H&P: HPI History of Present Illness Date/Time: 01/25/25 20:36 Chief Complaint: Diarrhea, Weakness Narrative: 74 y/o F with PMH of diabetes (1.5, managed as 2) and hypertension presents here with diarrhea and weakness. The patient presents here from home for further evaluation of diarrhea and generalized weakness.? She reports onset of diarrhea on Saturday, 01/22. ?She estimates she has gone anywhere from 3 to 10+ per day. ?She has not taken any [id number] medications for her symptoms. ?Diarrhea is accompanied by abdominal pain, subjective dehydration, fever, chills, lack of appetite, decreased UOP, and generalized weakness.? She denies accompanying chest pain, blood in stool, dark/tarry stools, dizziness.? The patient describes the abdominal pain as primarily in her left lower quadrant, diffuse, non-radiating, constant (severity fluctuated), no aggravating or alleviating factors. ?She denies any previous history of diverticulitis, diverticulosis, bowel obstruction, or previous abdominal surgery. Initial VS at presentation: ?98.2? F, HR 96, RR 20, 137/74, and 98% on RA. ED workup showed:? WBC 21.8, hemoglobin 10.0 (at baseline), potassium 3.1, creatinine 1.02 and GFR 53 (at baseline), glucose 146, lactic 2.5 (-> 1.7), unremarkable LFTs and lipase.? UA suggestive of UTI, rare epithelial cells, may be contaminant.? C diff negative.? CT abdomen/pelvis completed which showed a sigmoid colon/proximal rectum colitis (inflammatory versus infectious) with 2 adjacent verses bilobed abscesses., CT read below. Review of Systems Review of Systems: All systems reviewed & are unremarkable except as noted in HPI and below PMFSH Past Medical History Medical History Diabetes 1.5, managed as type 2 Hypertension Surgical History Surgical History No history of previous surgery Family History Family History Mother Heart attack Diabetes mellitus Type II DM Father , heart attack Heart attack Heart disease Sibling , gynecological cancer (lining of uterus per patient) No problems noted. Social History Social History Smoking status: Never smoker Second hand tobacco smoke exposure: No Alcohol intake: never Alcohol use details: occasional, [id number] Substance use: never Substance use type: does not use Do You Feel Safe in your Home?: Yes Lack of Transportation: No Lack of Food: Never True Current Housing: I Have Housing Concerned About Future Housing: No Difficulty Paying Gas/Electric Bills: No Difficulty Paying for Meds: No Currently Unemployed: No Education: Bachelor's Degree Difficulty w/ Childcare or Family Care: No Spiritual care concerns: No Meds Home Medications and Allergies Home Medications ?Medication ?Instructions ?Recorded ?Confirmed ?Type triamterene 37.5 1 cap PO DAILY 09/22/19 01/25/25 History mg-hydrochlorothiazide 25 mg capsule verapamil 240 mg tablet,extended 240 mg PO BID 09/22/19 01/25/25 History release lancets 30 gauge (BD Microtainer #200 ea 11/04/24 01/25/25 Rx Lancet) blood sugar diagnostic (Blood #100 ea 11/23/24 01/25/25 Rx Glucose Test strips) blood-glucose meter #1 ea 11/23/24 01/25/25 Rx pioglitazone 45 mg tablet See Rx Instructions .Route 11/24/24 01/25/25 Rx .COMPLEX #90 tabs glimepiride 4 mg tablet 4 mg PO BID #180 tabs 12/17/24 01/25/25 Rx metoprolol succinate 50 mg 50 mg PO DAILY #180 tabs 12/17/24 01/25/25 Rx tablet,extended release 24 hr Allergies Allergy/AdvReac Type Severity Reaction Status Date / Time ciprofloxacin (From Cipro) Allergy Rash Verified 01/25/25 10:42 codeine Allergy Rash Verified 01/25/25 10:42 ibuprofen (From Advil) AdvReac Other Verified 01/25/25 10:42 naproxen (From Aleve) AdvReac Other Verified 01/25/25 10:42 Exam Const: General: comfortable and no acute distress Other: , female, elderly, disheveled. Nontoxic appearance. HENMT: Face/Nose/Sinus: Normal nares present Mouth: Yes moist mucous membranes Eyes: General: appearance normal, both eyes and all related structures Sclera: sclerae normal Pupils: Equal, round and reactive pupils present EOM: EOMs intact bilaterally Resp: Effort & Inspection: normal respiratory effort Auscultation: clear to auscultation bilaterally Cardio: Rate: regular rate Rhythm: regular rhythm Other: S1-S2 present without murmur, rub, ectopy GI: Other: tender in the lower quadrants. hyperactive bowel sounds in the upper quadrants, normoactive in the lower. Nondistended, soft. Skin: General skin exam: normal color and no rashes or lesions noted Wounds: no wounds Neuro: Speech: normal speech Motor exam (neuro): 5/5 motor strength present throughout Sensory Exam: normal sensation Other: A&O x4 Extrem: General: normal to inspection Psych: Mental Status: mental status grossly normal Affect: normal affect Other: Malodorous, disheveled. Fair insight and judgment, pleasant. Assessment and Plan Assessment and plan (1) Sepsis: Qualifiers: Sepsis acute organ dysfunction status: without acute organ dysfunction Sepsis type: sepsis due to unspecified organism Qualified Code(s): A41.9 - Sepsis, unspecified organism Code(s): A41.9 - Sepsis, unspecified organism Status: Acute Assessment and Plan: meets SIRS criteria: HR elevated, WBC 21.8. lactic acid: 2.5 -> 1.7 check procalcitonin 30 mL/kg = 2.9L, given 2L bolus in ED suspected source: colitis., possible UTI started on vancomycin and Zosyn on 01/25, will continue as monotherapy with Zosyn 4.5G Q6H blood cultures drawn on 01/25 currently hemodynamically stable, monitor.? BP on the low end of normotensive. Monitor I&Os. (2) Colitis: Code(s): K52.9 - Noninfective gastroenteritis and colitis, unspecified Status: Acute Assessment and Plan: See above Infectious versus inflammatory, C diff negative. Add stool culture. Continued on monotherapy, Zosyn. NPO, IV fluids. Trend labs. (3) Intra-abdominal abscess: Code(s): K65.1 - Peritoneal abscess Status: Acute Assessment and Plan: CT abdomen/pelvis, 01/25/2025: Circumferential wall thickening of the distal sigmoid colon/proximal rectum. Correlate for infectious/inflammatory colitis versus possibility of underlying neoplasm. 2 adjacent versus bilobed abscesses abutting/adjacent to the distal sigmoid colon/rectum, as detailed above. Contained bowel perforation not completely excluded, though no distant free air evident. Cholelithiasis and gallbladder sludge. Staghorn right renal calculus, as above. No hydronephrosis. 4.3 cm right adrenal myelolipoma. General surgery consulted. NPO, IV fluids - 100 mL/hr Analgesics and antiemetic p.r.n.. Started on vancomycin and Zosyn on 01/25 -> continue as Zosyn 4.5G Q6H Mild hypokalemia noted, 3.1.? Likely secondary to diarrhea.? Initial repletion with KCl 40 p.o., recheck upon arrival. (4) UTI (urinary tract infection): Qualifiers: Hematuria presence: without hematuria Urinary tract infection type: acute cystitis Qualified Code(s): N30.00 - Acute cystitis without hematuria Code(s): N39.0 - Urinary tract infection, site not specified Status: Suspected Assessment and Plan: Suspected, may be contaminant as there are rare epithelial cells. UA:? 1+ protein, 3+ blood, 2.00 urobilinogen, trace leuks, 11-20 RBC, rare epithelial cells, 2+ bacteria. UC obtained on 01/25, follow. Previous micro showed group B strep in 2022. Started on Zosyn due to concurrent colitis without cells. (5) Urinary retention: Code(s): R33.9 - Retention of urine, unspecified Status: Acute Assessment and Plan: New. Bladder scan showing greater than 700 mL on 01/25. Espinoza catheter placed. Start Flomax 0.4 mg daily. (6) Diabetes 1.5, managed as type 2: Code(s): E13.9 - Other specified diabetes mellitus without complications Status: Acute Assessment and Plan: hypoglycemia protocol POC blood glucose ACHS home medication: Hold glimepiride and pioglitazone correct regimen ordered - high dose TIDWM, based off BMI A1C 12.4% 09/2024, update (7) Hypertension: Qualifiers: Hypertension type: unspecified Qualified Code(s): I10 - Essential (primary) hypertension Code(s): I10 - Essential (primary) hypertension Status: Acute Assessment and Plan: Chronic, 112/43 prior to arrival. Hold triamterene-hydrochlorothiazide and verapamil, pressures have been on the low end of normotensive. Resume when appropriate. Continue metoprolol ER 50 mg daily. Monitor. Plan Diet:? NPO GI Prophylaxis:? Not currently indicated DVT Prophylaxis:? SCDs Lines:? Peripheral Code Status: Full code Quality VTE Prophylaxis VTE prophylaxis: mechanical ordered Hospitalist MIPS Advance Care Plan I have confirmed that the patient's Advanced Care Plan is present, code status is documented, or surrogate decision maker is listed in patient medical record.: Yes Medication Reconciliation I have utilized all available resources to obtain, update and review the patients current medications (includes all prescriptions, OTC, herbals, cannabis, and nutritional supplements).: Yes
[2025-01-25 20:38] VITALS: BMI 36.7
--- OUTSIDE RECORDS SUMMARY | 2025-01-25 20:58 | XMS_ITS | Clinical Summary ---
Author Organization [facility] Address [address] [place] [id number] Care Team Providers Care Accounts Receivable Supervisor Name Role Phone Unavailable Primary Care Provider [...]
[2025-01-25 21:34] VITALS: BP 123/58; PULSE 85; RESP 18; TEMP 36.3; O2SAT 91
[2025-01-25 21:49] LABS: Anion Gap 11 mmol/L (4-12); Blood Urea Nitrogen 12 mg/dL (7-17); Calcium 8.1 mg/dL (8.4-10.2); Carbon Dioxide 26 mmol/L (22-30); Chloride 100 mmol/L (98-107); Estimated CRCL calculation 62 ml/min; Estimated Glomerular Filt Rate > 60; Glucose 73 mg/dL (65-110); Sodium 137 mmol/L (137-145)
[2025-01-25 22:05] LABS: Procalcitonin 0.4 ng/mL
[2025-01-25] MEDS: PIPERACILLIN/TAZ 4.5G/NS 100ML 4.5 GM/100 ML BAG IVPB (22:05)
[2025-01-25] MEDS: SODIUM CHLORIDE 0.9% IV 1,000 ML 100 ML IV CONT (22:05)
[2025-01-26] MEDS: PIPERACILLIN/TAZ 4.5G/NS 100ML 4.5 GM/100 ML BAG IVPB ×4 (04:28→22:15)
[2025-01-26 06:00] VITALS: BP 109/49; PULSE 65; RESP 20; TEMP 35.8; O2SAT 92
[2025-01-26 06:06] LABS: Basophils Percent Auto 0.2 % (0.2-1.2); Hematocrit 28.6 % (37.0-47.0); Hemoglobin 8.4 g/dL (12.0-15.0); Immature Granulocyte Absolute 0.37 K/mm3 (0.00-0.031); Lymphocytes Absolute Auto 0.78 K/mm3 (0.9-3.2); Lymphocytes Percent Auto 4.2 % (18.3-44.2); Mean Corpuscular HGB Conc 29.4 g/dl (32-36); Mean Corpuscular Volume 81.7 fl (80-100); Mean Platelet Volume 9.8 fl (7.4-10.4); Monocytes Absolute Auto 1.3 K/mm3 (0.1-0.6); Monocytes Percent Auto 7.1 % (2.6-8.5); Neutrophils Absolute Auto 15.9 K/mm3 (1.3-6.7); Neutrophils Percent Auto 86.5 % (45.5-73.1); Platelet Count Result 386 k/mm3 (150-375); Red Cell Distribution Width 15.6 % (11.5-14.5); White Blood Count 18.4 K/mm3 (4.5-10.0)
[2025-01-26 06:46] LABS: Alanine Aminotransferase 15 U/L (6-35); Albumin Level 2.7 g/dL (3.5-5.1); Alkaline Phosphatase 123 U/L (38-126); Anion Gap 9 mmol/L (4-12); Aspartate Amino Transferase 29 U/L (14-36); Bilirubin,Total 0.9 mg/dL (0.2-1.3); Blood Urea Nitrogen 15 mg/dL (7-17); Calcium 7.9 mg/dL (8.4-10.2); Carbon Dioxide 27 mmol/L (22-30); Chloride 103 mmol/L (98-107); Estimated CRCL calculation 66 ml/min; Estimated Glomerular Filt Rate > 60; Glucose 57 mg/dL (65-110); Potassium 2.8 mmol/L (3.4-5.0); Sodium 139 mmol/L (137-145)
[2025-01-26] MEDS: DEXTROSE 50% 25 GM/50 ML SYRINGE IV PUSH ×2 (06:58→11:40)
--- NOTE | 2025-01-26 07:05 | PM.IMPN ---
Progress Note: A&P Assessment and Plan (1) Sepsis: Qualifiers: Sepsis acute organ dysfunction status: without acute organ dysfunction Sepsis type: sepsis due to unspecified organism Qualified Code(s): A41.9 - Sepsis, unspecified organism Code(s): A41.9 - Sepsis, unspecified organism Status: Acute Assessment and Plan: meets SIRS criteria: HR elevated, WBC 21.8., lactic acidosis, and suspected source lactic acid: 2.5 -> 1.7 Procal 0.4 30 mL/kg = 2.9L, given 2L bolus in ED suspected source: colitis., possible UTI started on vancomycin and Zosyn on 01/25, continue as monotherapy with Zosyn 4.5G Q6H blood cultures drawn on 01/25: pending Remains hemodynamically stable, monitor.? BP on the low end of normotensive. Holding all home antihypertensives, besides metoprolol. Monitor I&Os. (2) Colitis: Code(s): K52.9 - Noninfective gastroenteritis and colitis, unspecified Status: Acute Assessment and Plan: CT abdomen/pelvis: Circumferential wall thickening of the distal sigmoid colon/proximal rectum. 2 adjacent versus bilobed abscesses abutting/adjacent to the distal sigmoid colon/rectum. Contained bowel perforation not completely excluded, though no distant free air evident. Cholelithiasis and gallbladder sludge. Staghorn right renal calculus, as above. No hydronephrosis. 4.3 cm right adrenal myelolipoma. Infectious versus inflammatory C diff negative. Stool culture pending. Continued on monotherapy, Zosyn. NPO, D5LR IV fluids. Monitor vital signs, I&Os, track stool output, watch for bloody stools, neuro status and patient is a fall risk Monitor serum electrolytes and CBC (3) Abscess of sigmoid colon: Code(s): K63.0 - Abscess of intestine Status: Inactive Assessment and Plan: CT abdomen/pelvis, 01/25/2025: Circumferential wall thickening of the distal sigmoid colon/proximal rectum. Correlate for infectious/inflammatory colitis versus possibility of underlying neoplasm. 2 adjacent versus bilobed abscesses abutting/adjacent to the distal sigmoid colon/rectum, as detailed above. Contained bowel perforation not completely excluded, though no distant free air evident. NPO, IV fluids - D5LR 100 mL/hr Analgesics and antiemetic p.r.n.. Started on vancomycin and Zosyn on 01/25 -> continue as Zosyn 4.5G Q6H General surgery consulted Plan for a drain procedure today with IR Received an update from RN that patient refused drain placement. Surgery made aware. (4) Hypokalemia: Code(s): E87.6 - Hypokalemia Status: Acute Assessment and Plan: Mild hypokalemia 3.1 on admission. Initial repletion with KCl 40 p.o. Likely secondary to diarrhea.? - K 2.8 on am labs, given 80 meq IV KCL - Tele (5) UTI (urinary tract infection): Qualifiers: Hematuria presence: without hematuria Urinary tract infection type: acute cystitis Qualified Code(s): N30.00 - Acute cystitis without hematuria Code(s): N39.0 - Urinary tract infection, site not specified Status: Suspected Assessment and Plan: UA:? 1+ protein, 3+ blood, 2.00 urobilinogen, trace leuks, 11-20 RBC, rare epithelial cells, 2+ bacteria. May be contaminant as there are rare epithelial cells. UC obtained on 01/25: pending Previous micro showed group B strep in 2022. Started on Zosyn due to cocurrent colitis without cells. (6) Urinary retention: Code(s): R33.9 - Retention of urine, unspecified Status: Acute Assessment and Plan: New. Bladder scan showing greater than 700 mL on 01/25. Espinoza catheter placed. Attempt voiding trial prior to discharge. BUN/Cr remain WNL Start Flomax 0.4 mg daily. (7) Diabetes 1.5, managed as type 2: Code(s): E13.9 - Other specified diabetes mellitus without complications Status: Acute Assessment and Plan: hypoglycemia protocol POC blood glucose ACHS home medication: Hold glimepiride and pioglitazone correct regimen ordered - high dose TIDWM, based off BMI A1C 12.4% 09/2024, repeat Glucose 57 on am labs. Remains NPO, transitioned to D5LR. (8) Hypertension: Qualifiers: Hypertension type: unspecified Qualified Code(s): I10 - Essential (primary) hypertension Code(s): I10 - Essential (primary) hypertension Status: Acute Assessment and Plan: Chronic Hold triamterene-hydrochlorothiazide and verapamil, pressures have been on the low end of normotensive. Resume when appropriate. Continue metoprolol ER 50 mg daily. Blood pressures remain stable, continue to monitor. Time Spent With Patient Time with patient: 25 - 35 minutes Subjective Date/time seen: 01/26/25 07:05 Interval history: 74 year old female with past medical history of diabetes (1.5, managed as 2) and hypertension presents to the hospital with diarrhea and weakness. Patient is pleasant lying in bed. She states that pain is better controlled at this point. She is hungry adn wishes to eat today. Denies any nausea or vomiting. She is to obtain a drain placement later today with IR. Per surgery patient likely able to start clears following procedure. Patient has no other complaints denying chest pain, shortness a breath, palpitations. Review of Systems Review of Systems: All systems reviewed & are unremarkable except as noted in HPI and below Exam Narrative: AF HR 66 RR 20 SPO2 92 BP 109/49 General: female in no acute respiratory distress who is nontoxic appearing, lying semi recumbent in bed. HEENT: Normocephalic. Atraumatic. Extraocular movement intact. Sclera clear and anicteric. No facial asymmetry. Chest: Lungs are clear to auscultation bilaterally. No wheezes or crackles. CV: Heart was regular rate and rhythm. Abd: Abdomen was soft. LLQ tenderness. Nondistended. Positive bowel sounds. Ext: No clubbing, cyanosis, or edema. DP pulses bilaterally. Neuro: Patient is alert and oriented x4. Speech is clear. Objective Data Vital Signs Vital Signs: Vital Signs - 24 hr 01/25/25 20:41 01/25/25 21:34 01/26/25 06:00 Temperature 97.4 F L 96.4 F L Pulse Rate 85 65 Respiratory Rate 18 20 Blood Pressure 123/58 L 109/49 L Pulse Oximetry 91 92 Oxygen Delivery Room Air Intake/Output Intake/Output: Intake & Output 01/23/25 01/24/25 01/25/25 01/26/25 23:59 23:59 23:59 23:59 Intake Total 100 100 Output Total 850 Balance 100 -750 Meds/Results Medications: Active Medications Generic Name Dose Route Start Last Admin Trade Name Freq PRN Reason Stop Dose Admin Acetaminophen 650 mg 01/25/25 20:51 Acetaminophen 325 Mg Tablet PO Q4H PRN Headache Dextrose 12.5 gm 01/25/25 20:46 01/26/25 06:58 Dextrose 50% 25 Gm/50 Ml Syringe IV PUSH 12.5 gm PRN PRN Administration Hypoglycemia Protocol Fentanyl Citrate 25 mcg 01/25/25 20:51 Fentanyl Citrate Inj (*Crx) 100 Mcg/2 Ml Vial IV PUSH Q4H PRN Pain Rated 6 or Greater Glucagon 1 mg 01/25/25 20:46 Glucagon For Inj 1 Mg Vial IM PRN PRN Hypoglycemia Protocol Glucose 15 gm 01/25/25 20:46 Glucose Oral Gel 15 Gm Of Glucse In 37.5 Gm Tube PO PRN PRN Hypoglycemia Protocol Piperacillin Sod/Tazobactam Sod 4.5 gm in 100 mls @ 200 mls/hr 01/25/25 22:00 01/26/25 04:58 Zosyn 4.5 Gm/Ns 100 Ml IVPB Infused Q6H [facility] Infusion Dextrose 1,000 mls @ 100 mls/hr 01/25/25 20:46 Dextrose 5% 1,000 Ml IVPB PRN PRN Hypoglycemia Protocol Sodium Chloride 1,000 mls @ 100 mls/hr 01/25/25 20:45 01/25/25 22:05 Normal Saline Iv IV CONT 100 mls/hr .Q10H KANDIS Administration Vancomycin HCl 1,500 mg in 500 mls @ 250 mls/hr 01/26/25 08:00 Vancomycin 1,500 Mg/Ns 500 Ml IVPB Q18H K[facility]IS Potassium Chloride 40 meq/ 520 mls @ 130 mls/hr 01/26/25 07:15 Sodium Chloride IVPB 01/26/25 11:14 ONCE ONE Potassium Chloride 40 meq/ 520 mls @ 130 mls/hr 01/26/25 12:00 Sodium Chloride IVPB 01/26/25 15:59 ONCE ONE Insulin Aspart 4 - 8 units 01/26/25 08:00 Insulin Aspart (*Bkc) 100 Units/Ml SUB-Q TIDWM [facility] Protocol Metoprolol Succinate 50 mg 01/26/25 09:00 Metoprolol Succinate Ext Rel 50 Mg Tabcr PO DAILY [facility] Ondansetron HCl 4 mg 01/25/25 20:51 Ondansetron Inj 4 Mg/2 Ml Vial IV PUSH Q6H PRN Nausea And Vomiting Tamsulosin HCl 0.4 mg 01/26/25 09:00 Tamsulosin Hcl 0.4 Mg Capsule PO QAM [facility] Labs Labs: Laboratory Results - last 24 hr 01/25/25 01/26/25 21:22 05:18 Sodium 137 139 Potassium 3.0 L 2.8 L* Chloride 100 103 Carbon Dioxide 26 27 Anion Gap 11 9 BUN 12 15 Creatinine 0.82 0.77 Estim Creat Clear Calc 62 66 Estimated GFR > 60 > 60 Glucose 73 57 L* Calcium 8.1 L 7.9 L Total Bilirubin 0.9 AST 29 ALT 15 Alkaline Phosphatase 123 Total Protein 7.0 Albumin 2.7 L Procalcitonin 0.4 Quality VTE Prophylaxis VTE prophylaxis: mechanical ordered
[2025-01-26 07:07] LABS: Magnesium 2.2 mg/dL (1.6-2.3)
[2025-01-26 07:09] LABS: Hypochromasia 2+; Platelet Estimate Slightly Increased (Adequate); Schistocytes None Seen
[2025-01-26] MEDS: POTASSIUM CHLORIDE INJ 40 MEQ in SODIUM CHLORIDE 0.9% IV 500 ML 130 MEQ IVPB (07:32)
[2025-01-26 08:00] LABS: Hemoglobin A1C 9.6 % (<5.7)
[2025-01-26 08:09] LABS: Glucose Point of Care 99 mg/dl (65-105)
[2025-01-26 08:18] VITALS: PULSE 66
[2025-01-26] MEDS: TAMSULOSIN HCL 0.4 MG CAPSULE PO (08:18)
[2025-01-26] MEDS: DEXTROSE 5%/LACTATED RINGERS 1,000 ML 100 ML IV CONT (08:18)
[2025-01-26] MEDS: METOPROLOL SUCCINATE EXT REL 50 MG TABCR PO (08:18)
[2025-01-26] MEDS: VANCOMYCIN 1,500 MG/NS 500 ML 1,500 MG/500 ML BAG 250 MG IVPB (08:18)
[2025-01-26 08:58] LABS: Glucose Point of Care 102 mg/dl (65-105)
[2025-01-26 10:20] LABS: INR 1.2; Prothrombin Time 16.1 Seconds (11.1-14.7)
[2025-01-26 10:21] LABS: Partial Thromboplastin Time 26.5 Seconds (22.3-36.8)
[2025-01-26 11:35] LABS: Glucose Point of Care 63 mg/dl (65-105)
--- NOTE | 2025-01-26 12:37 | P.SEDATION_ITS ---
Moderate Sedation Note-Pt Data Patient Data Diagnosis: pelvic abscess Present Complaint: diarrhea and leukocytosis Procedure to be performed/Plan: transgluteal abscess drainage catheter placement Allergies Allergy/AdvReac Type Severity Reaction Status Date / Time ciprofloxacin (From Cipro) Allergy Rash Verified 01/25/25 10:42 codeine Allergy Rash Verified 01/25/25 10:42 ibuprofen (From Advil) AdvReac Other Verified 01/25/25 10:42 naproxen (From Aleve) AdvReac Other Verified 01/25/25 10:42 Home Medications ?Medication ?Instructions ?Recorded ?Confirmed ?Type triamterene 37.5 1 cap PO DAILY 09/22/19 01/25/25 History mg-hydrochlorothiazide 25 mg capsule verapamil 240 mg tablet,extended 240 mg PO BID 09/22/19 01/25/25 History release lancets 30 gauge (BD Microtainer #200 ea 11/04/24 01/25/25 Rx Lancet) blood sugar diagnostic (Blood #100 ea 11/23/24 01/25/25 Rx Glucose Test strips) blood-glucose meter #1 ea 11/23/24 01/25/25 Rx pioglitazone 45 mg tablet See Rx Instructions .Route 11/24/24 01/25/25 Rx .COMPLEX #90 tabs glimepiride 4 mg tablet 4 mg PO BID #180 tabs 12/17/24 01/25/25 Rx metoprolol succinate 50 mg 50 mg PO DAILY #180 tabs 12/17/24 01/25/25 Rx tablet,extended release 24 hr Current Medications: Active Medications Acetaminophen (Acetaminophen 325 Mg Tablet) 650 mg PO Q4H PRN PRN Reason: Headache Dextrose (Dextrose 50% 25 Gm/50 Ml Syringe) 12.5 gm IV PUSH PRN PRN; Protocol PRN Reason: Hypoglycemia Last Admin: 01/26/25 11:40 Dose: 12.5 gm Fentanyl Citrate (Fentanyl Citrate Inj (*Crx) 100 Mcg/2 Ml Vial) 25 mcg IV PUSH Q4H PRN PRN Reason: Pain Rated 6 or Greater Glucagon (Glucagon For Inj 1 Mg Vial) 1 mg IM PRN PRN; Protocol PRN Reason: Hypoglycemia Glucose (Glucose Oral Gel 15 Gm Of Glucse In 37.5 Gm Tube) 15 gm PO PRN PRN; Protocol PRN Reason: Hypoglycemia Piperacillin Sod/Tazobactam Sod (Zosyn 4.5 Gm/Ns 100 Ml) 4.5 gm in 100 mls @ 200 mls/hr IVPB Q6H [facility] Last Infusion: 01/26/25 11:30 Dose: 0 mls/hr Dextrose (Dextrose 5% 1,000 Ml) 1,000 mls @ 100 mls/hr IVPB PRN PRN; Protocol PRN Reason: Hypoglycemia Potassium Chloride 40 meq/ (Sodium Chloride) 520 mls @ 130 mls/hr IVPB ONCE ONE Stop: 01/26/25 15:59 Last Admin: 01/26/25 11:47 Dose: Not Given Dextrose/Lactated Ringer's (Dextrose 5%/Lactated Ringers) 1,000 mls @ 100 mls/hr IV CONT .Q10H [facility] Last Admin: 01/26/25 08:18 Dose: 100 mls/hr Insulin Aspart (Insulin Aspart (*Bkc) 100 Units/Ml) 4 - 8 units SUB-Q TIDWM [facility]; Protocol Last Admin: 01/26/25 11:48 Dose: Not Given Metoprolol Succinate (Metoprolol Succinate Ext Rel 50 Mg Tabcr) 50 mg PO DAILY [facility] Last Admin: 01/26/25 08:18 Dose: 50 mg Ondansetron HCl (Ondansetron Inj 4 Mg/2 Ml Vial) 4 mg IV PUSH Q6H PRN PRN Reason: Nausea And Vomiting Tamsulosin HCl (Tamsulosin Hcl 0.4 Mg Capsule) 0.4 mg PO QAM [facility] Last Admin: 01/26/25 08:18 Dose: 0.4 mg Sedation/Anesthesia: No previous sedation/anesthesia problems (including family history). [facility] Past Medical History Medical History Diabetes 1.5, managed as type 2 Hypertension Surgical History Surgical History No history of previous surgery Family History Family History Mother Heart attack Diabetes mellitus Type II DM Father , heart attack Heart attack Heart disease Sibling , gynecological cancer (lining of uterus per patient) No problems noted. Social History Social History Smoking status: Never smoker Second hand tobacco smoke exposure: No Alcohol intake: never Alcohol use details: occasional, [id number] Substance use: never Substance use type: does not use Do You Feel Safe in your Home?: Yes Lack of Transportation: No Lack of Food: Never True Current Housing: I Have Housing Concerned About Future Housing: No Difficulty Paying Gas/Electric Bills: No Difficulty Paying for Meds: No Currently Unemployed: No Education: Bachelor's Degree Difficulty w/ Childcare or Family Care: No Spiritual care concerns: No Mod Sed Physical Exam Physical Exam Pre Procedural Exam: Normal: Throat, Lungs, Heart Rate and Heart Rhythm and Variation: Appearance (frail and disheveled) Hours since solid foods: 24 Hours since liquid intake: 24 Mallampati Classification: class III Internal Medicine - PN: Obj Da Vital Signs Vital Signs: Vital Signs - 24 hr 01/25/25 20:41 01/25/25 21:34 01/26/25 06:00 Temperature 97.4 F L 96.4 F L Pulse Rate 85 65 Respiratory Rate 18 20 Blood Pressure 123/58 L 109/49 L Pulse Oximetry 91 92 Oxygen Delivery Room Air 01/26/25 08:00 01/26/25 08:18 Temperature Pulse Rate 66 Respiratory Rate Blood Pressure Pulse Oximetry Oxygen Delivery Room Air Intake/Output Intake/Output: Intake & Output 01/23/25 01/24/25 01/25/25 01/26/25 23:59 23:59 23:59 23:59 Intake Total 100 150 Output Total 850 Balance 100 -700 Meds/Results Medications: Active Medications Generic Name Dose Route Start Last Admin Trade Name Freq PRN Reason Stop Dose Admin Acetaminophen 650 mg 01/25/25 20:51 Acetaminophen 325 Mg Tablet PO Q4H PRN Headache Dextrose 12.5 gm 01/25/25 20:46 01/26/25 11:40 Dextrose 50% 25 Gm/50 Ml Syringe IV PUSH 12.5 gm PRN PRN Administration Hypoglycemia Protocol Fentanyl Citrate 25 mcg 01/25/25 20:51 Fentanyl Citrate Inj (*Crx) 100 Mcg/2 Ml Vial IV PUSH Q4H PRN Pain Rated 6 or Greater Glucagon 1 mg 01/25/25 20:46 Glucagon For Inj 1 Mg Vial IM PRN PRN Hypoglycemia Protocol Glucose 15 gm 01/25/25 20:46 Glucose Oral Gel 15 Gm Of Glucse In 37.5 Gm Tube PO PRN PRN Hypoglycemia Protocol Piperacillin Sod/Tazobactam Sod 4.5 gm in 100 mls @ 200 mls/hr 01/25/25 22:00 01/26/25 11:30 Zosyn 4.5 Gm/Ns 100 Ml IVPB 0 mls/hr Q6H [facility] Infusion Dextrose 1,000 mls @ 100 mls/hr 01/25/25 20:46 Dextrose 5% 1,000 Ml IVPB PRN PRN Hypoglycemia Protocol Potassium Chloride 40 meq/ 520 mls @ 130 mls/hr 01/26/25 12:00 01/26/25 11:47 Sodium Chloride IVPB 01/26/25 15:59 Not Given ONCE ONE Dextrose/Lactated Ringer's 1,000 mls @ 100 mls/hr 01/26/25 07:30 01/26/25 08:18 Dextrose 5%/Lactated Ringers IV CONT 100 mls/hr .Q10H KANDIS Administration Insulin Aspart 4 - 8 units 01/26/25 08:00 01/26/25 11:48 Insulin Aspart (*Bkc) 100 Units/Ml SUB-Q Not Given TIDWM [facility] Protocol Metoprolol Succinate 50 mg 01/26/25 09:00 01/26/25 08:18 Metoprolol Succinate Ext Rel 50 Mg Tabcr PO 50 mg DAILY [facility] Administration Ondansetron HCl 4 mg 01/25/25 20:51 Ondansetron Inj 4 Mg/2 Ml Vial IV PUSH Q6H PRN Nausea And Vomiting Tamsulosin HCl 0.4 mg 01/26/25 09:00 01/26/25 08:18 Tamsulosin Hcl 0.4 Mg Capsule PO 0.4 mg QAM [facility] Administration Labs 01/26/25 05:18 01/26/25 05:18 Labs: Laboratory Results - last 24 hr 01/25/25 01/26/25 01/26/25 21:22 05:14 05:18 WBC 18.4 H RBC 3.50 L Hgb 8.4 L Hct 28.6 L MCV 81.7 MCH 24.0 L MCHC 29.4 L RDW 15.6 H Plt Count 386 H MPV 9.8 Immature Gran % (Auto) 2.0 H Neut % (Auto) 86.5 H Lymph % (Auto) 4.2 L [place] % (Auto) 7.1 Eos % (Auto) 0.0 Baso % (Auto) 0.2 Lymph # (Auto) 0.78 L [place] # (Auto) 1.3 H Eos # (Auto) 0.0 Baso # (Auto) 0.0 Abs Immat Gran (auto) 0.37 H Absolute Neuts (auto) 15.9 H Absolute Nucleated RBC 0.000 Band Neutrophils % Not Reportable Nucleated RBC % 0.0 Platelet Estimate Slightly increased Hypochromasia 2+ Schistocytes None seen PT INR APTT Sodium 137 139 Potassium 3.0 L 2.8 L* Chloride 100 103 Carbon Dioxide 26 27 Anion Gap 11 9 BUN 12 15 Creatinine 0.82 0.77 Estim Creat Clear Calc 62 66 Estimated GFR > 60 > 60 Glucose 73 57 L* POC Capillary Glucose Hemoglobin A1c 9.6 H Calcium 8.1 L 7.9 L Magnesium 2.2 Total Bilirubin 0.9 AST 29 ALT 15 Alkaline Phosphatase 123 Total Protein 7.0 Albumin 2.7 L Procalcitonin 0.4 01/26/25 01/26/25 01/26/25 07:29 08:17 09:57 WBC RBC Hgb Hct MCV MCH MCHC RDW Plt Count MPV Immature Gran % (Auto) Neut % (Auto) Lymph % (Auto) [place] % (Auto) Eos % (Auto) Baso % (Auto) Lymph # (Auto) [place] # (Auto) Eos # (Auto) Baso # (Auto) Abs Immat Gran (auto) Absolute Neuts (auto) Absolute Nucleated RBC Band Neutrophils % Nucleated RBC % Platelet Estimate Hypochromasia Schistocytes PT 16.1 H INR 1.2 APTT 26.5 Sodium Potassium Chloride Carbon Dioxide Anion Gap BUN Creatinine Estim Creat Clear Calc Estimated GFR Glucose POC Capillary Glucose 99 102 Hemoglobin A1c Calcium Magnesium Total Bilirubin AST ALT Alkaline Phosphatase Total Protein Albumin Procalcitonin 01/26/25 11:27 WBC RBC Hgb Hct MCV MCH MCHC RDW Plt Count MPV Immature Gran % (Auto) Neut % (Auto) Lymph % (Auto) [place] % (Auto) Eos % (Auto) Baso % (Auto) Lymph # (Auto) [place] # (Auto) Eos # (Auto) Baso # (Auto) Abs Immat Gran (auto) Absolute Neuts (auto) Absolute Nucleated RBC Band Neutrophils % Nucleated RBC % Platelet Estimate Hypochromasia Schistocytes PT INR APTT Sodium Potassium Chloride Carbon Dioxide Anion Gap BUN Creatinine Estim Creat Clear Calc Estimated GFR Glucose POC Capillary Glucose 63 L Hemoglobin A1c Calcium Magnesium Total Bilirubin AST ALT Alkaline Phosphatase Total Protein Albumin Procalcitonin ASA Classification/Sedation ASA Classification/Sedation ASA Class: II Emergent: No Risks: Risks, benefits and alternatives explained and patient/family accepted plan for sedation. Patient re-evaluated immediately prior to sedation.
--- NOTE | 2025-01-26 12:37 | P.CONGS_ITS ---
Assessment and Plan Assessment and plan (1) Colitis: Code(s): K52.9 - Noninfective gastroenteritis and colitis, unspecified Status: Acute Assessment and Plan: CT scan showed wall thickening of this sigmoid colon/proximal rectum with to adjacent abscesses measuring up to 4-5 cm. Etiology could be colitis, versus diverticulitis versus malignancy. She has never had a colonoscopy. We will continue broad-spectrum IV antibiotics for now and plan to proceed with percutaneous drainage in IR. Patient is okay to have clear liquids later tonight after drainage procedure. Continue to follow with serial abdominal exams and labs. Discussed with the patient that she will eventually need a colonoscopy as an outpatient about 4 to 6 weeks after resolution of the diverticulitis. (2) Intra-abdominal abscess: Code(s): K65.1 - Peritoneal abscess Status: Acute Assessment and Plan: Proceed with IR percutaneous drainage, continue IV antibiotics (3) Sepsis: Qualifiers: Sepsis type: sepsis due to unspecified organism Sepsis acute organ dysfunction status: without acute organ dysfunction Qualified Code(s): A41.9 - Sepsis, unspecified organism Code(s): A41.9 - Sepsis, unspecified organism Status: Acute Assessment and Plan: Criteria met with leukocytosis, tachycardia in the setting of diverticulitis with abscess. See plan above. Continue IV antibiotics. (4) Urinary retention: Code(s): R33.9 - Retention of urine, unspecified Status: Acute (5) UTI (urinary tract infection): Qualifiers: Urinary tract infection type: acute cystitis Hematuria presence: w ithout hematuria Qualified Code(s): N30.00 - Acute cystitis without hematuria Code(s): N39.0 - Urinary tract infection, site not specified Status: Suspected (6) Diabetes 1.5, managed as type 2: Code(s): E13.9 - Other specified diabetes mellitus without complications Status: Acute (7) Hypertension: Qualifiers: Hypertension type: unspecified Qualified Code(s): I10 - Essential (primary) hypertension Code(s): I10 - Essential (primary) hypertension Status: Acute Plan I have discussed the patient's case and plan of care with Dr. Goins. Thank you for allowing us to see the patient in consultation and we will continue to follow along with you. History of Present Illness Consult details Consult date: 01/26/25 Reason for consult: other (Colitis sigmoid abscess) Requesting physician: Dorothea Solis APRN Narrative: This is a 74-year-old woman with PMH of diabetes 1.5, hypertension, who presented to the ED in [place] with diarrhea and abdominal pain. She developed diarrhea and lower abdominal pain 3 days ago. She denies having this pain in the past. She reports loss of appetite, but no nausea or vomiting. Stools were loose, but no blood in her stools. She denies fever chills. Her pain progressed and was more severe yesterday, which prompted her to go to the ED for evaluation. [place] [address], potassium 3.1, creatinine 1.02, and lactic acid 2.5 with repeat down to 1.7. UA suggested possible UTI. C diff negative. CT scan of the abdomen and pelvis showed wall thickening of the sigmoid colon/proximal rectum consistent with colitis and 2 adjacent bilobed abscesses. She was then transferred to [facility] for admission in surgical evaluation. She is seen on the medical floor. She is hungry and denies any nausea or vomiting. She reports her abdominal pain is improved. She is on IV Zosyn and currently NPO. She denies ever having abdominal surgery. Denies a history of colitis or diverticulitis. She has never had a colonoscopy in the past or Cologuard. Review of Systems 2 Review of Systems: All systems reviewed & are unremarkable except as noted in HPI and below PMFSH Past Medical History Medical History Diabetes 1.5, managed as type 2 Hypertension Surgical History Surgical History No history of previous surgery Family History Family History Mother Heart attack Diabetes mellitus Type II DM Father , heart attack Heart attack Heart disease Sibling , gynecological cancer (lining of uterus per patient) No problems noted. Social History Social History Smoking status: Never smoker Second hand tobacco smoke exposure: No Alcohol intake: never Alcohol use details: occasional, [id number] Substance use: never Substance use type: does not use Do You Feel Safe in your Home?: Yes Lack of Transportation: No Lack of Food: Never True Current Housing: I Have Housing Concerned About Future Housing: No Difficulty Paying Gas/Electric Bills: No Difficulty Paying for Meds: No Currently Unemployed: No Education: Bachelor's Degree Difficulty w/ Childcare or Family Care: No Spiritual care concerns: No Meds Home Medications and Allergies Home Medications ?Medication ?Instructions ?Recorded ?Confirmed ?Type triamterene 37.5 1 cap PO DAILY 09/22/19 01/25/25 History mg-hydrochlorothiazide 25 mg capsule verapamil 240 mg tablet,extended 240 mg PO BID 09/22/19 01/25/25 History release lancets 30 gauge (BD Microtainer #200 ea 11/04/24 01/25/25 Rx Lancet) blood sugar diagnostic (Blood #100 11/23/24 01/25/25 Rx Glucose Test strips) blood-glucose meter #1 ea 11/23/24 01/25/25 Rx pioglitazone 45 mg tablet See Rx Instructions .Route 11/24/24 01/25/25 Rx .COMPLEX #90 tabs glimepiride 4 mg tablet 4 mg PO BID #180 tabs 12/17/24 01/25/25 Rx metoprolol succinate 50 mg 50 mg PO DAILY #180 tabs 12/17/24 01/25/25 Rx tablet,extended release 24 hr Allergies Allergy/AdvReac Type Severity Reaction Status Date / Time ciprofloxacin (From Cipro) Allergy Rash Verified 01/25/25 10:42 codeine Allergy Rash Verified 01/25/25 10:42 ibuprofen (From Advil) AdvReac Other Verified 01/25/25 10:42 naproxen (From Aleve) AdvReac Other Verified 01/25/25 10:42 Vital Signs Vital Signs - 24 hr 01/25/25 20:41 01/25/25 21:34 01/26/25 06:00 Temperature 97.4 F L 96.4 F L Pulse Rate 85 65 Respiratory Rate 18 20 Blood Pressure 123/58 L 109/49 L Pulse Oximetry 91 92 Oxygen Delivery Room Air 01/26/25 08:00 01/26/25 08:18 Temperature Pulse Rate 66 Respiratory Rate Blood Pressure Pulse Oximetry Oxygen Delivery Room Air Exam 2 Const: General: comfortable and no acute distress Nutritional Appearance: o verweight Orientation/consciousness: patient oriented x3 HENMT: Head: normocephalic and atraumatic Ears: hearing grossly normal bilaterally Mouth: Yes moist mucous membranes Eyes: General: appearance normal, both eyes and all related structures P upils: Equal, round and reactive pupils present Neck: Neck: normal visual inspection and full ROM Resp: Effort & Inspection: no respiratory distress Auscultation: clear to auscultation bilaterally Cardio: Rate: regular rate Rhythm: regular rhythm Peripheral pulses: P eripheral pulses 2+ throughout GI: Inspection: non-distended and no scars GI Palp: Yes Soft to palpation, Yes Tenderness to palpation present (GI) (Left lower quadrant), No Guarding due to palpation present (GI) and No Rebound tenderness present Auscultation: n ormal bowel sounds Skin: General skin exam: normal color Neuro: General: moves all extremities and no focal motor deficits Speech: n ormal speech Motor exam (neuro): 5/5 motor strength present throughout Extrem: General: normal to inspection and no edema Psych: Mental Status: mental status grossly normal Attitude: cooperative Insight: Good insight present (Psych) Judgement: Good judgement present (Psych) Results Labs 01/26/25 05:18 01/26/25 05:18 Labs: Abnormal lab results 01/25/25 01/26/25 01/26/25 Range/Units 21:22 05:14 05:18 WBC 18.4 H (4.5-10.0) K/mm3 RBC 3.50 L (4.2-5.4) M/mm3 Hgb 8.4 L (12.0-15.0) g/dL Hct 28.6 L (37.0-47.0) % MCH 24.0 L (26-34) pg MCHC 29.4 L (32-36) g/dl RDW 15.6 H (11.5-14.5) % Plt Count 386 H (150-375) k/mm3 Immature Gran % (Auto) 2.0 H (0-0.5) % Neut % (Auto) 86.5 H (45.5-73.1) % Lymph % (Auto) 4.2 L (18.3-44.2) % Lymph # (Auto) 0.78 L (0.9-3.2) K/mm3 [place] # (Auto) 1.3 H (0.1-0.6) K/mm3 Abs Immat Gran (auto) 0.37 H (0.00-0.031) K/mm3 Absolute Neuts (auto) 15.9 H (1.3-6.7) K/mm3 PT (11.1-14.7) Seconds Potassium 3.0 L 2.8 L* (3.4-5.0) mmol/L Glucose 57 L* (65-110) mg/dL POC Capillary Glucose (65-105) mg/dl Hemoglobin A1c 9.6 H (<5.7) % Calcium 8.1 L 7.9 L (8.4-10.2) mg/dL Albumin 2.7 L (3.5-5.1) g/dL 01/26/25 01/26/25 Range/Units 09:57 11:27 WBC (4.5-10.0) K/mm3 RBC (4.2-5.4) M/mm3 Hgb (12.0-15.0) g/dL Hct (37.0-47.0) % MCH (26-34) pg MCHC (32-36) g/dl RDW (11.5-14.5) % Plt Count (150-375) k/mm3 Immature Gran % (Auto) (0-0.5) % Neut % (Auto) (45.5-73.1) % Lymph % (Auto) (18.3-44.2) % Lymph # (Auto) (0.9-3.2) K/mm3 [place] # (Auto) (0.1-0.6) K/mm3 Abs Immat Gran (auto) (0.00-0.031) K/mm3 Absolute Neuts (auto) (1.3-6.7) K/mm3 PT 16.1 H (11.1-14.7) Seconds Potassium (3.4-5.0) mmol/L Glucose (65-110) mg/dL POC Capillary Glucose 63 L (65-105) mg/dl Hemoglobin A1c (<5.7) % Calcium (8.4-10.2) mg/dL Albumin (3.5-5.1) g/dL Diabetes panel 01/25/25 01/26/25 01/26/25 Range/Units 21:22 05:14 05:18 Sodium 137 139 (137-145) mmol/L Potassium 3.0 L 2.8 L* (3.4-5.0) mmol/L Chloride 100 103 (98-107) mmol/L Carbon Dioxide 26 27 (22-30) mmol/L BUN 12 15 (7-17) mg/dL Creatinine 0.82 0.77 (0.7-1.0) mg/dL Glucose 73 57 L* (65-110) mg/dL Hemoglobin A1c 9.6 H (<5.7) % Calcium 8.1 L 7.9 L (8.4-10.2) mg/dL AST 29 (14-36) U/L ALT 15 (6-35) U/L Alkaline Phosphatase 123 (38-126) U/L Total Protein 7.0 (6.3-8.2) g/dL Albumin 2.7 L (3.5-5.1) g/dL Calcium panel 01/25/25 01/26/25 Range/Units 21: 05:18 Calcium 8.1 L 7.9 L (8.4-10.2) mg/dL Albumin 2.7 L (3.5-5.1) g/dL Pituitary panel 01/25/25 01/26/25 Range/Units 21: 05:18 Sodium 137 139 (137-145) mmol/L Potassium 3.0 L 2.8 L* (3.4-5.0) mmol/L Chloride 100 103 (98-107) mmol/L Carbon Dioxide 26 27 (22-30) mmol/L BUN 12 15 (7-17) mg/dL Creatinine 0.82 0.77 (0.7-1.0) mg/dL Glucose 73 57 L* (65-110) mg/dL Calcium 8.1 L 7.9 L (8.4-10.2) mg/dL Adrenal panel 01/25/25 01/26/25 Range/Units 21:22 05:18 Sodium 137 139 (137-145) mmol/L Potassium 3.0 L 2.8 L* (3.4-5.0) mmol/L Chloride 100 103 (98-107) mmol/L Carbon Dioxide 26 27 (22-30) mmol/L BUN 12 15 (7-17) mg/dL Creatinine 0.82 0.77 (0.7-1.0) mg/dL Glucose 73 57 L* (65-110) mg/dL Calcium 8.1 L 7.9 L (8.4-10.2) mg/dL Total Bilirubin 0.9 (0.2-1.3) mg/dL AST 29 (14-36) U/L ALT 15 (6-35) U/L Alkaline Phosphatase 123 (38-126) U/L Total Protein 7.0 (6.3-8.2) g/dL Albumin 2.7 L (3.5-5.1) g/dL All other labs normal.
--- NOTE | 2025-01-26 13:27 | SUR.OPER ---
RN to CT for mod sed for drain placement. Pt could not tolerate laying on stomach. Pt refused to proceed. One set VS obtained. 126/65, 76, 99%, 21, 35 EtCO2. Pt returned to room
[2025-01-26 14:00] VITALS: BP 123/64; PULSE 76; RESP 20; TEMP 37.1; O2SAT 93
[2025-01-26 16:00] VITALS: PULSE 81
[2025-01-26 17:01] LABS: Glucose Point of Care 163 mg/dl (65-105)
[2025-01-26] MEDS: ALPRAZolam (*CRX) 0.25 MG TABLET PO (18:28)
[2025-01-26 20:00] VITALS: PULSE 85
[2025-01-26] MEDS: ACETAMINOPHEN 325 MG TABLET 650 MG PO (21:17)
[2025-01-26 21:56] VITALS: BP 145/72; PULSE 88; RESP 18; TEMP 37.7; O2SAT 94
[2025-01-27] VITALS (9 sets, daily range): BP systolic 114–122; BP diastolic 44–59; PULSE 62–85; RESP 14–18; TEMP 36.4–37.2; O2SAT 90–94
[2025-01-27] MEDS: ALPRAZolam (*CRX) 0.25 MG TABLET PO ×2 (02:49→17:10)
[2025-01-27] MEDS: ACETAMINOPHEN 325 MG TABLET 650 MG PO ×2 (02:50→09:03)
[2025-01-27] MEDS: PIPERACILLIN/TAZ 4.5G/NS 100ML 4.5 GM/100 ML BAG IVPB ×4 (03:10→20:49)
[2025-01-27] MEDS: DEXTROSE 5%/LACTATED RINGERS 1,000 ML 100 ML IV CONT (03:10)
[2025-01-27 06:37] LABS: Glucose Point of Care 224 mg/dl (65-105)
[2025-01-27 06:39] LABS: Hematocrit 29.2 % (37.0-47.0); Hemoglobin 8.4 g/dL (12.0-15.0); Mean Corpuscular HGB Conc 28.8 g/dl (32-36); Mean Corpuscular Hemoglobin 23.8 pg (26-34); Mean Corpuscular Volume 82.7 fl (80-100); Mean Platelet Volume 9.8 fl (7.4-10.4); Platelet Count Result 395 k/mm3 (150-375); Red Blood Count 3.53 M/mm3 (4.2-5.4); Red Cell Distribution Width 15.8 % (11.5-14.5); White Blood Count 17.6 K/mm3 (4.5-10.0)
[2025-01-27 06:50] LABS: Alanine Aminotransferase 15 U/L (6-35); Albumin Level 2.6 g/dL (3.5-5.1); Alkaline Phosphatase 136 U/L (38-126); Anion Gap 8 mmol/L (4-12); Aspartate Amino Transferase 27 U/L (14-36); Bilirubin,Total 0.7 mg/dL (0.2-1.3); Blood Urea Nitrogen 13 mg/dL (7-17); Calcium 7.9 mg/dL (8.4-10.2); Carbon Dioxide 27 mmol/L (22-30); Chloride 102 mmol/L (98-107); Estimated CRCL calculation 62 ml/min; Estimated Glomerular Filt Rate > 60; Glucose 212 mg/dL (65-110); Potassium 2.9 mmol/L (3.4-5.0); Sodium 137 mmol/L (137-145)
[2025-01-27 08:04] LABS: Glucose Point of Care 222 mg/dl (65-105)
[2025-01-27] MEDS: INSULIN ASPART (*BKC) 100 UNITS/ML SUB-Q ×2 (09:02→12:34)
[2025-01-27] MEDS: TAMSULOSIN HCL 0.4 MG CAPSULE PO (09:04)
[2025-01-27] MEDS: METOPROLOL SUCCINATE EXT REL 50 MG TABCR PO (09:04)
--- NOTE | 2025-01-27 11:36 | P.PNGS_ITS ---
Progress Note: A&P Assessment and Plan (1) Colitis: Code(s): K52.9 - Noninfective gastroenteritis and colitis, unspecified Status: Acute Assessment and Plan: * No abdominal pain today and tenderness improved, WBC count slowly trending down * Will advance to full liquids * Continue IV antibiotics (2) Intra-abdominal abscess: Code(s): K65.1 - Peritoneal abscess Status: Acute Assessment and Plan: * Patient refused as she was unable to tolerate prone positioning for percutaneous drain placement * Continue IV antibiotics for now, discussed potentially needing to re-evaluate percutaneous drainage if she is not improving as expected with antibiotics (3) Sepsis: Qualifiers: Sepsis type: sepsis due to unspecified organism Sepsis acute organ dysfunction status: without acute organ dysfunction Qualified Code(s): A41.9 - Sepsis, unspecified organism Code(s): A41.9 - Sepsis, unspecified organism Status: Acute Assessment and Plan: * Secondary to likely diverticulitis with abscess, tachycardia resolved and WBC count trending down * Continue IV antibiotics (4) Urinary retention: Code(s): R33.9 - Retention of urine, unspecified Status: Acute Assessment and Plan: * Espinoza in place (5) UTI (urinary tract infection): Qualifiers: Urinary tract infection type: acute cystitis Hematuria presence: with out hematuria Qualified Code(s): N30.00 - Acute cystitis without hematuria Code(s): N39.0 - Urinary tract infection, site not specified Status: Suspected Plan I have discussed the patient's case and plan of care with Dr. Goins. Subjective Subjective Date/Time Seen: 01/27/25 11:36 Patient reports: no new complaints, feels better, pain is less, flatus, bowel movement and afebrile Interval history: Patient feeling better today. Denies any abdominal pain at this time. She in well with clear liquids. She is passing flatus and had a bowel movement this morning that was slightly mucousy, but brown. She was unable to tolerate lying prone for the percutaneous drain placement yesterday, which was aborted. Patient is very anxious this morning and would prefer to avoid the drain if at all possible and antibiotics and see how she does. She does not feel like she could tolerate the procedure. Exam Const: General: comfortable and no acute distress Orie ntation/consciousness: patient oriented x3 GI: Inspection: non-distended GI Palp: Yes Soft to palpation, No Tenderness to palpation present (GI), No Guarding due to palpation present (GI) and No Rebound tenderness present Auscultation: normal bowel sounds Objective Data Vital Signs Vital Signs: Vital Signs - 24 hr 01/26/25 14:00 01/26/25 16:00 01/26/25 20:00 Temperature 98.7 F Pulse Rate 76 81 Respiratory Rate 20 Blood Pressure 123/64 Pulse Oximetry 93 Oxygen Delivery Room Air 01/26/25 20:00 01/26/25 21:56 01/27/25 04:00 Temperature 99.9 F H Pulse Rate 85 88 69 Respiratory Rate 18 Blood Pressure 145/72 H Pulse Oximetry 94 Oxygen Delivery 01/27/25 06:00 01/27/25 09:04 Temperature 99.0 F Pulse Rate 65 68 Respiratory Rate 18 Blood Pressure 122/59 L Pulse Oximetry 90 Oxygen Delivery Intake/Output Intake/Output: Intake & Output 01/24/25 01/25/25 01/26/25 01/27/25 23:59 23:59 23:59 23:59 Intake Total 100 3090 540 Output Total 1400 250 Balance 100 1690 290 Meds/Results Medications: Active Medications Generic Name Dose Route Start Last Admin Trade Name Freq PRN Reason Stop Dose Admin Acetaminophen 650 mg 01/25/25 20:51 01/27/25 09:03 Acetaminophen 325 Mg Tablet PO 650 mg Q4H PRN Administration Headache Alprazolam 0.25 mg 01/27/25 02:15 01/27/25 02:49 Alprazolam (*Crx) 0.25 Mg Tablet PO 0.25 mg BID PRN Administration Anxiety Dextrose 12.5 gm 01/25/25 20:46 01/26/25 11:40 Dextrose 50% 25 Gm/50 Ml Syringe IV PUSH 12.5 gm PRN PRN Administration Hypoglycemia Protocol Fentanyl Citrate 25 mcg 01/25/25 20:51 Fentanyl Citrate Inj (*Crx) 100 Mcg/2 Ml Vial IV PUSH Q4H PRN Pain Rated 6 or Greater Glucagon 1 mg 01/25/25 20:46 Glucagon For Inj 1 Mg Vial IM PRN PRN Hypoglycemia Protocol Glucose 15 gm 01/25/25 20:46 Glucose Oral Gel 15 Gm Of Glucse In 37.5 Gm Tube PO PRN PRN Hypoglycemia Protocol Piperacillin Sod/Tazobactam Sod 4.5 gm in 100 mls @ 200 mls/hr 01/25/25 22:00 01/27/25 09:02 Zosyn 4.5 Gm/Ns 100 Ml IVPB 200 mls/hr Q6H KANDIS Administration Dextrose 1,000 mls @ 100 mls/hr 01/25/25 20:46 Dextrose 5% 1,000 Ml IVPB PRN PRN Hypoglycemia Protocol Dextrose/Lactated Ringer's 1,000 mls @ 100 mls/hr 01/26/25 07:30 01/27/25 03:10 Dextrose 5%/Lactated Ringers IV CONT 100 mls/hr .Q10H KANDIS Administration Potassium Chloride 40 meq/ 520 mls @ 130 mls/hr 01/27/25 08:51 Sodium Chloride IVPB 01/27/25 12:50 ONCE ONE Insulin Aspart 4 - 8 units 01/26/25 08:00 01/27/25 09:02 Insulin Aspart (*Bkc) 100 Units/Ml SUB-Q 4 units TIDWM KANDIS Administration Protocol Magnesium Oxide 400 mg 01/27/25 09:00 Magnesium Oxide 400 Mg Tablet PO DAILY KANDIS Metoprolol Succinate 50 mg 01/26/25 09:00 01/27/25 09:04 Metoprolol Succinate Ext Rel 50 Mg Tabcr PO 50 mg DAILY KANDIS Administration Ondansetron HCl 4 mg 01/25/25 20:51 Ondansetron Inj 4 Mg/2 Ml Vial IV PUSH Q6H PRN Nausea And Vomiting Tamsulosin HCl 0.4 mg 01/26/25 09:00 01/27/25 09:04 Tamsulosin Hcl 0.4 Mg Capsule PO 0.4 mg QAM KANDIS Administration Radiology Results: ITS Impressions Pelvis CT 01/26/25 14:17 IMPRESSION: 1. No significant change in a bilobed gas and fluid containing abscess in the deep pelvis. Patient canceled the planned percutaneous abscess drainage catheter placement due to discomfort despite attempts at repositioning. Labs Labs: Laboratory Results - last 24 hr 01/26/25 01/26/25 01/27/25 16:32 20:35 05:42 WBC 17.6 H RBC 3.53 L Hgb 8.4 L Hct 29.2 L MCV 82.7 MCH 23.8 L MCHC 28.8 L RDW 15.8 H Plt Count 395 H MPV 9.8 Sodium 137 Potassium 2.9 L Chloride 102 Carbon Dioxide 27 Anion Gap 8 BUN 13 Creatinine 0.82 Estim Creat Clear Calc 62 Estimated GFR > 60 Glucose 212 H POC Capillary Glucose 163 H 224 H Calcium 7.9 L Total Bilirubin 0.7 AST 27 ALT 15 Alkaline Phosphatase 136 H Total Protein 6.0 L Albumin 2.6 L 01/27/25 07:56 WBC RBC Hgb Hct MCV MCH MCHC RDW Plt Count MPV Sodium Potassium Chloride Carbon Dioxide Anion Gap BUN Creatinine Estim Creat Clear Calc Estimated GFR Glucose POC Capillary Glucose 222 H Calcium Total Bilirubin AST ALT Alkaline Phosphatase Total Protein Albumin
[2025-01-27 11:48] LABS: Glucose Point of Care 219 mg/dl (65-105)
--- NOTE | 2025-01-27 12:09 | PM.PNGS ---
Progress Note: A&P Assessment and Plan (1) Intra-abdominal abscess: Code(s): K65.1 - Peritoneal abscess Status: Acute Assessment and Plan: exam benign, cont IV abx and serial exams/labs for now, advance to low fiber diet Subjective Subjective Date/Time Seen: 01/27/25 12:09 Interval history: reports pain/pressure in lower abd is largely resolved, maria isabel clears Review of Systems Review of Systems: All systems reviewed & are unremarkable except as noted in HPI and below Exam Const: General: cooperative, comfortable and no acute distress Resp: Auscultation: diminished lung sounds Cardio: Rate: regular rate Rhythm: regular rhythm GI: Inspection: normal to inspection and obesity GI Palp: No abdominal tenderness and Yes Soft to palpation Objective Data Vital Signs Vital Signs: Vital Signs - 24 hr 01/26/25 14:00 01/26/25 16:00 01/26/25 20:00 Temperature 37.1 C Pulse Rate 76 81 Respiratory Rate 20 Blood Pressure 123/64 Pulse Oximetry 93 Oxygen Delivery Room Air 01/26/25 20:00 01/26/25 21:56 01/27/25 04:00 Temperature 37.7 C H Pulse Rate 85 88 69 Respiratory Rate 18 Blood Pressure 145/72 H Pulse Oximetry 94 Oxygen Delivery 01/27/25 06:00 01/27/25 08:00 01/27/25 09:04 Temperature 37.2 C Pulse Rate 65 62 68 Respiratory Rate 18 Blood Pressure 122/59 L Pulse Oximetry 90 Oxygen Delivery Intake/Output Intake/Output: Intake & Output 01/24/25 01/25/25 01/26/25 01/27/25 23:59 23:59 23:59 23:59 Intake Total 100 3090 540 Output Total 1400 250 Balance 100 1690 290 Meds/Results Medications: Active Medications Generic Name Dose Route Start Last Admin Trade Name Freq PRN Reason Stop Dose Admin Acetaminophen 650 mg 01/25/25 20:51 01/27/25 09:03 Acetaminophen 325 Mg Tablet PO 650 mg Q4H PRN Administration Headache Alprazolam 0.25 mg 01/27/25 02:15 01/27/25 02:49 Alprazolam (*Crx) 0.25 Mg Tablet PO 0.25 mg BID PRN Administration Anxiety Dextrose 12.5 gm 01/25/25 20:46 01/26/25 11:40 Dextrose 50% 25 Gm/50 Ml Syringe IV PUSH 12.5 gm PRN PRN Administration Hypoglycemia Protocol Fentanyl Citrate 25 mcg 01/25/25 20:51 Fentanyl Citrate Inj (*Crx) 100 Mcg/2 Ml Vial IV PUSH Q4H PRN Pain Rated 6 or Greater Glucagon 1 mg 01/25/25 20:46 Glucagon For Inj 1 Mg Vial IM PRN PRN Hypoglycemia Protocol Glucose 15 gm 01/25/25 20:46 Glucose Oral Gel 15 Gm Of Glucse In 37.5 Gm Tube PO PRN PRN Hypoglycemia Protocol Piperacillin Sod/Tazobactam Sod 4.5 gm in 100 mls @ 200 mls/hr 01/25/25 22:00 01/27/25 09:02 Zosyn 4.5 Gm/Ns 100 Ml IVPB 200 mls/hr Q6H KANDIS Administration Dextrose 1,000 mls @ 100 mls/hr 01/25/25 20:46 Dextrose 5% 1,000 Ml IVPB PRN PRN Hypoglycemia Protocol Dextrose/Lactated Ringer's 1,000 mls @ 100 mls/hr 01/26/25 07:30 01/27/25 03:10 Dextrose 5%/Lactated Ringers IV CONT 100 mls/hr .Q10H KANDIS Administration Potassium Chloride 40 meq/ 520 mls @ 130 mls/hr 01/27/25 08:51 Sodium Chloride IVPB 01/27/25 12:50 ONCE ONE Insulin Aspart 4 - 8 units 01/26/25 08:00 01/27/25 09:02 Insulin Aspart (*Bkc) 100 Units/Ml SUB-Q 4 units TIDWM KANDIS Administration Protocol Magnesium Oxide 400 mg 01/27/25 09:00 Magnesium Oxide 400 Mg Tablet PO DAILY KANDIS Metoprolol Succinate 50 mg 01/26/25 09:00 01/27/25 09:04 Metoprolol Succinate Ext Rel 50 Mg Tabcr PO 50 mg DAILY KANDIS Administration Ondansetron HCl 4 mg 01/25/25 20:51 Ondansetron Inj 4 Mg/2 Ml Vial IV PUSH Q6H PRN Nausea And Vomiting Tamsulosin HCl 0.4 mg 01/26/25 09:00 01/27/25 09:04 Tamsulosin Hcl 0.4 Mg Capsule PO 0.4 mg QAM KANDIS Administration Radiology Results: ITS Impressions Pelvis CT 01/26/25 14:17 IMPRESSION: 1. No significant change in a bilobed gas and fluid containing abscess in the deep pelvis. Patient canceled the planned percutaneous abscess drainage catheter placement due to discomfort despite attempts at repositioning. Labs Labs: Laboratory Results - last 24 hr 01/26/25 01/26/25 01/27/25 16:32 20:35 05:42 WBC 17.6 H RBC 3.53 L Hgb 8.4 L Hct 29.2 L MCV 82.7 MCH 23.8 L MCHC 28.8 L RDW 15.8 H Plt Count 395 H MPV 9.8 Sodium 137 Potassium 2.9 L Chloride 102 Carbon Dioxide 27 Anion Gap 8 BUN 13 Creatinine 0.82 Estim Creat Clear Calc 62 Estimated GFR > 60 Glucose 212 H POC Capillary Glucose 163 H 224 H Calcium 7.9 L Total Bilirubin 0.7 AST 27 ALT 15 Alkaline Phosphatase 136 H Total Protein 6.0 L Albumin 2.6 L 01/27/25 01/27/25 07:56 11:36 WBC RBC Hgb Hct MCV MCH MCHC RDW Plt Count MPV Sodium Potassium Chloride Carbon Dioxide Anion Gap BUN Creatinine Estim Creat Clear Calc Estimated GFR Glucose POC Capillary Glucose 222 H 219 H Calcium Total Bilirubin AST ALT Alkaline Phosphatase Total Protein Albumin
[2025-01-27] MEDS: POTASSIUM CHLORIDE INJ 40 MEQ in SODIUM CHLORIDE 0.9% IV 500 ML 130 MEQ IVPB (12:29)
[2025-01-27] MEDS: MAGNESIUM OXIDE 400 MG TABLET PO (12:30)
--- NOTE | 2025-01-27 16:09 | P.PNIM_ITS ---
Progress Note: A&P Assessment and Plan (1) Sepsis: Qualifiers: Sepsis type: sepsis due to unspecified organism Sepsis acute organ dysfunction status: without acute organ dysfunction Qualified Code(s): A41.9 - Sepsis, unspecified organism Code(s): A41.9 - Sepsis, unspecified organism Status: Acute Assessment and Plan: meets SIRS criteria: HR elevated, WBC 21.8., lactic acidosis, and suspected source lactic acid: 2.5 -> 1.7 Procal 0.4 30 mL/kg = 2.9L, given 2L bolus in ED suspected source: colitis., possible UTI started on vancomycin and Zosyn on 01/25, continue as monotherapy with Zosyn 4.5G Q6H blood cultures drawn on 01/25: pending Remains hemodynamically stable, monitor.? BP on the low end of normotensive. Holding all home antihypertensives, besides metoprolol. Monitor I&Os. (2) Colitis: Code(s): K52.9 - Noninfective gastroenteritis and colitis, unspecified Status: Acute Assessment and Plan: CT abdomen/pelvis: Circumferential wall thickening of the distal sigmoid colon/proximal rectum. 2 adjacent versus bilobed abscesses abutting/adjacent to the distal sigmoid colon/rectum. Contained bowel perforation not completely excluded, though no distant free air evident. Cholelithiasis and gallbladder sludge. Staghorn right renal calculus, as above. No hydronephrosis. 4.3 cm right adrenal myelolipoma. Infectious versus inflammatory C diff negative. Stool culture pending. Continued on monotherapy, Zosyn. NPO, D5LR IV fluids. Monitor vital signs, I&Os, track stool output, watch for bloody stools, neuro status and patient is a fall risk Monitor serum electrolytes and CBC (3) Abscess of sigmoid colon: Code(s): K63.0 - Abscess of intestine Status: Inactive Assessment and Plan: CT abdomen/pelvis, 01/25/2025: Circumferential wall thickening of the distal sigmoid colon/proximal rectum. Correlate for infectious/inflammatory colitis versus possibility of underlying neoplasm. 2 adjacent versus bilobed abscesses abutting/adjacent to the distal sigmoid colon/rectum, as detailed above. Contained bowel perforation not completely excluded, though no distant free air evident. NPO, IV fluids - D5LR 100 mL/hr Analgesics and antiemetic p.r.n.. Started on vancomycin and Zosyn on 01/25 -> continue as Zosyn 4.5G Q6H General surgery consulted Plan for a drain procedure today with IR Received an update from RN that patient refused drain placement. Surgery made aware. (4) Hypokalemia: Code(s): E87.6 - Hypokalemia Status: Acute Assessment and Plan: Mild hypokalemia 3.1 on admission. Initial repletion with KCl 40 p.o. Likely secondary to diarrhea.? - K 2.8 on am labs, given 80 meq IV KCL - Tele 2.9 today- will replace iv and add mg monitor closely (5) UTI (urinary tract infection): Qualifiers: Urinary tract infection type: acute cystitis Hematuria presence: without hematuria Qualified Code(s): N30.00 - Acute cystitis without hematuria Code(s): N39.0 - Urinary tract infection, site not specified Status: Suspected Assessment and Plan: UA:? 1+ protein, 3+ blood, 2.00 urobilinogen, trace leuks, 11-20 RBC, rare epithelial cells, 2+ bacteria. May be contaminant as there are rare epithelial cells. UC obtained on 01/25: pending Previous micro showed group B strep in 2022. Started on Zosyn due to cocurrent colitis without cells. (6) Urinary retention: Code(s): R33.9 - Retention of urine, unspecified Status: Acute Assessment and Plan: New. Bladder scan showing greater than 700 mL on 01/25. Espinoza catheter placed. Attempt voiding trial prior to discharge. BUN/Cr remain WNL Start Flomax 0.4 mg daily. (7) Diabetes 1.5, managed as type 2: Code(s): E13.9 - Other specified diabetes mellitus without complications Status: Acute Assessment and Plan: hypoglycemia protocol POC blood glucose ACHS home medication: Hold glimepiride and pioglitazone correct regimen ordered - high dose TIDWM, based off BMI A1C 12.4% 09/2024, repeat Glucose 57 on am labs. Remains NPO, transitioned to D5LR. (8) Hypertension: Qualifiers: Hypertension type: unspecified Qualified Code(s): I10 - Essential (primary) hypertension Code(s): I10 - Essential (primary) hypertension Status: Acute Assessment and Plan: Chronic Hold triamterene-hydrochlorothiazide and verapamil, pressures have been on the low end of normotensive. Resume when appropriate. Continue metoprolol ER 50 mg daily. Blood pressures remain stable, continue to monitor. Time Spent With Patient Time with patient: 25 - 35 minutes Subjective Date/time seen: 01/27/25 16:09 Interval history: 74 year old female with past medical history of diabetes (1.5, managed as 2) and hypertension presents to the hospital with diarrhea and weakness. Patient is pleasant lying in bed. She states that pain is better controlled at this point. She is hungry adn wishes to eat today. Denies any nausea or vomiting. She is to obtain a drain placement later today with IR. Per surgery patient likely able to start clears following procedure. Patient has no other complaints denying chest pain, shortness a breath, palpitations. Assuming care. PT is seen and examined. She is pleasant, in bed. Reports that back pain is better after tylenol. C/o gas. Review of Systems Review of Systems: All systems reviewed & are unremarkable except as noted in HPI and below Exam Narrative: General: female in no acute respiratory distress who is nontoxic appearing, lying semi recumbent in bed. HEENT: Normocephalic. Atraumatic. Extraocular movement intact. Sclera clear and anicteric. No facial asymmetry. Chest: Lungs are clear to auscultation bilaterally. No wheezes or crackles. CV: Heart was regular rate and rhythm. Abd: Abdomen was soft. LLQ tenderness. Nondistended. Positive bowel sounds. Ext: No clubbing, cyanosis, or edema. DP pulses bilaterally. Neuro: Patient is alert and oriented x4. Speech is clear. Const: General: comfortable and no acute distress Other: , female, elderly, disheveled. Nontoxic appearance. HENMT: Face/Nose/Sinus: Normal nares present Mouth: Yes moist mucous membranes Eyes: General: appearance normal, both eyes and all related structures Sclera: sclerae normal Pupils: Equal, round and reactive pupils present EOM: EOMs intact bilaterally Resp: Effort & Inspection: normal respiratory effort Auscultation: clear to auscultation bilaterally Cardio: Rate: regular rate Rhythm: regular rhythm Other: S1-S2 present without murmur, rub, ectopy GI: Other: tender in the lower quadrants. hyperactive bowel sounds in the upper quadrants, normoactive in the lower. Nondistended, soft. Skin: General skin exam: normal color and no rashes or lesions noted Wounds: no wounds Neuro: Cranial nerves: Yes Equal, round and reactive pupils present Speech: normal speech Motor exam (neuro): 5/5 motor strength present throughout Se [place] Exam: normal sensation Other: A&O x4 Extrem: General: normal to inspection Psych: Mental Status: mental status grossly normal Affect: normal affect Other: Malodorous, disheveled. Fair insight and judgment, pleasant. Objective Data Vital Signs Vital Signs: Vital Signs - 24 hr 01/26/25 20:00 01/26/25 20:00 01/26/25 21:56 Temperature 99.9 F H Pulse Rate 85 88 Respiratory Rate 18 Blood Pressure 145/72 H Pulse Oximetry 94 Oxygen Delivery Room Air 01/27/25 04:00 01/27/25 06:00 01/27/25 08:00 Temperature 99.0 F Pulse Rate 69 65 62 Respiratory Rate 18 Blood Pressure 122/59 L Pulse Oximetry 90 Oxygen Delivery 01/27/25 09:04 01/27/25 14:00 Temperature 97.5 F L Pulse Rate 68 64 Respiratory Rate 18 Blood Pressure 114/44 L Pulse Oximetry 94 Oxygen Delivery Intake/Output Intake/Output: Intake & Output 01/24/25 01/25/25 01/26/25 01/27/25 23:59 23:59 23:59 23:59 Intake Total 100 3090 777 Output Total 1400 250 Balance 100 1690 527 Meds/Results Medications: Active Medications Generic Name Dose Route Start Last Admin Trade Name Freq PRN Reason Stop Dose Admin Acetaminophen 650 mg 01/25/25 20:51 01/27/25 09:03 Acetaminophen 325 Mg Tablet PO 650 mg Q4H PRN Administration Headache Alprazolam 0.25 mg 01/27/25 02:15 01/27/25 02:49 Alprazolam (*Crx) 0.25 Mg Tablet PO 0.25 mg BID PRN Administration Anxiety Dextrose 12.5 gm 01/25/25 20:46 01/26/25 11:40 Dextrose 50% 25 Gm/50 Ml Syringe IV PUSH 12.5 gm PRN PRN Administration Hypoglycemia Protocol Fentanyl Citrate 25 mcg 01/25/25 20:51 Fentanyl Citrate Inj (*Crx) 100 Mcg/2 Ml Vial IV PUSH Q4H PRN Pain Rated 6 or Greater Glucagon 1 mg 01/25/25 20:46 Glucagon For Inj 1 Mg Vial IM PRN PRN Hypoglycemia Protocol Glucose 15 gm 01/25/25 20:46 Glucose Oral Gel 15 Gm Of Glucse In 37.5 Gm Tube PO PRN PRN Hypoglycemia Protocol Piperacillin Sod/Tazobactam Sod 4.5 gm in 100 mls @ 200 mls/hr 01/25/25 22:00 01/27/25 09:02 Zosyn 4.5 Gm/Ns 100 Ml IVPB 200 mls/hr Q6H KANDIS Administration Dextrose 1,000 mls @ 100 mls/hr 01/25/25 20:46 Dextrose 5% 1,000 Ml IVPB PRN PRN Hypoglycemia Protocol Dextrose/Lactated Ringer's 1,000 mls @ 100 mls/hr 01/26/25 07:30 01/27/25 03:10 Dextrose 5%/Lactated Ringers IV CONT 100 mls/hr .Q10H KANDIS Administration Insulin Aspart 4 - 8 units 01/26/25 08:00 01/27/25 12:34 Insulin Aspart (*Bkc) 100 Units/Ml SUB-Q 4 units TIDWM KANDIS Administration Protocol Magnesium Oxide 400 mg 01/27/25 09:00 01/27/25 12:30 Magnesium Oxide 400 Mg Tablet PO 400 mg DAILY KANDIS Administration Metoprolol Succinate 50 mg 01/26/25 09:00 01/27/25 09:04 Metoprolol Succinate Ext Rel 50 Mg Tabcr PO 50 mg DAILY KANDIS Administration Ondansetron HCl 4 mg 01/25/25 20:51 Ondansetron Inj 4 Mg/2 Ml Vial IV PUSH Q6H PRN Nausea And Vomiting Tamsulosin HCl 0.4 mg 01/26/25 09:00 01/27/25 09:04 Tamsulosin Hcl 0.4 Mg Capsule PO 0.4 mg QAM KANDIS Administration Radiology Results: ITS Impressions Pelvis CT 01/26/25 14:17 IMPRESSION: 1. No significant change in a bilobed gas and fluid containing abscess in the deep pelvis. Patient canceled the planned percutaneous abscess drainage catheter placement due to discomfort despite attempts at repositioning. Labs Labs: Laboratory Results - last 24 hr 01/26/25 01/26/25 01/27/25 16:32 20:35 05:42 WBC 17.6 H RBC 3.53 L Hgb 8.4 L Hct 29.2 L MCV 82.7 MCH 23.8 L MCHC 28.8 L RDW 15.8 H Plt Count 395 H MPV 9.8 Sodium 137 Potassium 2.9 L Chloride 102 Carbon Dioxide 27 Anion Gap 8 BUN 13 Creatinine 0.82 Estim Creat Clear Calc 62 Estimated GFR > 60 Glucose 212 H POC Capillary Glucose 163 H 224 H Calcium 7.9 L Total Bilirubin 0.7 AST 27 ALT 15 Alkaline Phosphatase 136 H Total Protein 6.0 L Albumin 2.6 L 01/27/25 01/27/25 07:56 11:36 WBC RBC Hgb Hct MCV MCH MCHC RDW Plt Count MPV Sodium Potassium Chloride Carbon Dioxide Anion Gap BUN Creatinine Estim Creat Clear Calc Estimated GFR Glucose POC Capillary Glucose 222 H 219 H Calcium Total Bilirubin AST ALT Alkaline Phosphatase Total Protein Albumin Quality VTE Prophylaxis VTE prophylaxis: mechanical ordered
[2025-01-27 16:46] LABS: Glucose Point of Care 134 mg/dl (65-105)
[2025-01-27 20:53] LABS: Glucose Point of Care 124 mg/dl (65-105)
[2025-01-28] VITALS (10 sets, daily range): BP systolic 116–133; BP diastolic 47–75; PULSE 66–88; RESP 13–18; TEMP 36.2–36.4; O2SAT 91–96
[2025-01-28] MEDS: ALPRAZolam (*CRX) 0.25 MG TABLET PO ×2 (00:08→17:21)
[2025-01-28] MEDS: ACETAMINOPHEN 325 MG TABLET 650 MG PO ×3 (00:08→18:08)
[2025-01-28] MEDS: PIPERACILLIN/TAZ 4.5G/NS 100ML 4.5 GM/100 ML BAG IVPB ×4 (04:45→22:22)
[2025-01-28 06:45] LABS: Hematocrit 28.2 % (37.0-47.0); Hemoglobin 8.2 g/dL (12.0-15.0); Mean Corpuscular HGB Conc 29.1 g/dl (32-36); Mean Corpuscular Hemoglobin 23.8 pg (26-34); Mean Platelet Volume 9.7 fl (7.4-10.4); Platelet Count Result 431 k/mm3 (150-375); Red Blood Count 3.44 M/mm3 (4.2-5.4); Red Cell Distribution Width 15.9 % (11.5-14.5); White Blood Count 19.7 K/mm3 (4.5-10.0)
[2025-01-28 06:53] LABS: Alanine Aminotransferase 16 U/L (6-35); Albumin Level 2.4 g/dL (3.5-5.1); Alkaline Phosphatase 139 U/L (38-126); Anion Gap 8 mmol/L (4-12); Aspartate Amino Transferase 25 U/L (14-36); Bilirubin,Total 0.6 mg/dL (0.2-1.3); Blood Urea Nitrogen 13 mg/dL (7-17); Carbon Dioxide 25 mmol/L (22-30); Chloride 104 mmol/L (98-107); Estimated CRCL calculation 66 ml/min; Estimated Glomerular Filt Rate > 60; Glucose 183 mg/dL (65-110); Potassium 3.3 mmol/L (3.4-5.0); Sodium 137 mmol/L (137-145)
[2025-01-28 07:44] LABS: Glucose Point of Care 181 mg/dl (65-105)
[2025-01-28] MEDS: SIMETHICONE 80 MG TAB.CHEW PO ×2 (09:18→22:25)
[2025-01-28] MEDS: TAMSULOSIN HCL 0.4 MG CAPSULE PO (09:19)
[2025-01-28] MEDS: METOPROLOL SUCCINATE EXT REL 50 MG TABCR PO (09:19)
--- NOTE | 2025-01-28 10:36 | PM.IMPN ---
Progress Note: A&P Assessment and Plan (1) Sepsis: Qualifiers: Sepsis acute organ dysfunction status: without acute organ dysfunction Sepsis type: sepsis due to unspecified organism Qualified Code(s): A41.9 - Sepsis, unspecified organism Code(s): A41.9 - Sepsis, unspecified organism Status: Acute Assessment and Plan: meets SIRS criteria: HR elevated, WBC 21.8., lactic acidosis, and suspected source lactic acid: 2.5 -> 1.7 Procal 0.4 30 mL/kg = 2.9L, given 2L bolus in ED suspected source: colitis., possible UTI started on vancomycin and Zosyn on 01/25, continue as monotherapy with Zosyn 4.5G Q6H blood cultures drawn on 01/25: pending Remains hemodynamically stable, monitor.? BP on the low end of normotensive. Holding all home antihypertensives, besides metoprolol. Monitor I&Os. (2) Colitis: Code(s): K52.9 - Noninfective gastroenteritis and colitis, unspecified Status: Acute Assessment and Plan: CT abdomen/pelvis: Circumferential wall thickening of the distal sigmoid colon/proximal rectum. 2 adjacent versus bilobed abscesses abutting/adjacent to the distal sigmoid colon/rectum. Contained bowel perforation not completely excluded, though no distant free air evident. Cholelithiasis and gallbladder sludge. Staghorn right renal calculus, as above. No hydronephrosis. 4.3 cm right adrenal myelolipoma. Infectious versus inflammatory C diff negative. Stool culture pending. Continued on monotherapy, Zosyn. NPO, D5LR IV fluids. Monitor vital signs, I&Os, track stool output, watch for bloody stools, neuro status and patient is a fall risk Monitor serum electrolytes and CBC all stool cultures negative except salmonella-penidng (3) Abscess of sigmoid colon: Code(s): K63.0 - Abscess of intestine Status: Inactive Assessment and Plan: CT abdomen/pelvis, 01/25/2025: Circumferential wall thickening of the distal sigmoid colon/proximal rectum. Correlate for infectious/inflammatory colitis versus possibility of underlying neoplasm. 2 adjacent versus bilobed abscesses abutting/adjacent to the distal sigmoid colon/rectum, as detailed above. Contained bowel perforation not completely excluded, though no distant free air evident. NPO, IV fluids - D5LR 100 mL/hr Analgesics and antiemetic p.r.n.. Started on vancomycin and Zosyn on 01/25 -> continue as Zosyn 4.5G Q6H General surgery consulted Plan for a drain procedure today with IR Received an update from RN that patient refused drain placement. Surgery made aware. noted elevated WBC, no chills, pt is clinically stable - surgery is aware-no changes in tx for now (4) Hypokalemia: Code(s): E87.6 - Hypokalemia Status: Acute Assessment and Plan: Mild hypokalemia 3.1 on admission. Initial repletion with KCl 40 p.o. Likely secondary to diarrhea.? - K 2.8 on am labs, given 80 meq IV KCL - Tele 2.9 today- will replace iv and add mg monitor closely continue PO supplements (5) UTI (urinary tract infection): Qualifiers: Hematuria presence: without hematuria Urinary tract infection type: acute cystitis Qualified Code(s): N30.00 - Acute cystitis without hematuria Code(s): N39.0 - Urinary tract infection, site not specified Status: Suspected Assessment and Plan: UA:? 1+ protein, 3+ blood, 2.00 urobilinogen, trace leuks, 11-20 RBC, rare epithelial cells, 2+ bacteria. May be contaminant as there are rare epithelial cells. UC obtained on 01/25: pending Previous micro showed group B strep in 2022. Started on Zosyn due to cocurrent colitis without cells. continue (6) Urinary retention: Code(s): R33.9 - Retention of urine, unspecified Status: Acute Assessment and Plan: New. Bladder scan showing greater than 700 mL on 01/25. Burgos catheter placed. Attempt voiding trial prior to discharge. BUN/Cr remain WNL Start Flomax 0.4 mg daily. -consider voiding trials and d/c burgos (7) Diabetes 1.5, managed as type 2: Code(s): E13.9 - Other specified diabetes mellitus without complications Status: Acute Assessment and Plan: hypoglycemia protocol POC blood glucose ACHS home medication: Hold glimepiride and pioglitazone correct regimen ordered - high dose TIDWM, based off BMI A1C 12.4% 09/2024, repeat Glucose 57 on am labs. Remains NPO, transitioned to D5LR. (8) Hypertension: Qualifiers: Hypertension type: unspecified Qualified Code(s): I10 - Essential (primary) hypertension Code(s): I10 - Essential (primary) hypertension Status: Acute Assessment and Plan: Chronic Hold triamterene-hydrochlorothiazide and verapamil, pressures have been on the low end of normotensive. Resume when appropriate. Continue metoprolol ER 50 mg daily. Blood pressures remain stable, continue to monitor. Time Spent With Patient Time with patient: 25 - 35 minutes Subjective Date/time seen: 01/28/25 10:36 Interval history: 74 year old female with past medical history of diabetes (1.5, managed as 2) and hypertension presents to the hospital with diarrhea and weakness. Patient is pleasant lying in bed. She states that pain is better controlled at this point. She is hungry adn wishes to eat today. Denies any nausea or vomiting. She is to obtain a drain placement later today with IR. Per surgery patient likely able to start clears following procedure. Patient has no other complaints denying chest pain, shortness a breath, palpitations. Assuming care. PT is seen and examined. She is pleasant, in bed. Reports that back pain is better after tylenol. C/o gas. 01/28 pt feeling better today, ambulated to the chair and tolerated it well. No chills. Review of Systems Review of Systems: All systems reviewed & are unremarkable except as noted in HPI and below Exam Narrative: General: female in no acute respiratory distress who is nontoxic appearing, lying semi recumbent in bed. HEENT: Normocephalic. Atraumatic. Extraocular movement intact. Sclera clear and anicteric. No facial asymmetry. Chest: Lungs are clear to auscultation bilaterally. No wheezes or crackles. CV: Heart was regular rate and rhythm. Abd: Abdomen was soft. LLQ tenderness. Nondistended. Positive bowel sounds. Ext: No clubbing, cyanosis, or edema. DP pulses bilaterally. Neuro: Patient is alert and oriented x4. Speech is clear. Const: General: comfortable and no acute distress Other: , female, elderly, disheveled. Nontoxic appearance. HENMT: Face/Nose/Sinus: Normal nares present Mouth: Yes moist mucous membranes Eyes: General: appearance normal, both eyes and all related structures Sclera: sclerae normal Pupils: Equal, round and reactive pupils present EOM: EOMs intact bilaterally Resp: Effort & Inspection: normal respiratory effort Auscultation: clear to auscultation bilaterally Cardio: Rate: regular rate Rhythm: regular rhythm Other: S1-S2 present without murmur, rub, ectopy GI: Other: tender in the lower quadrants. hyperactive bowel sounds in the upper quadrants, normoactive in the lower. Nondistended, soft. Skin: General skin exam: normal color and no rashes or lesions noted Wounds: no wounds Neuro: Cranial nerves: Yes Equal, round and reactive pupils present Speech: normal speech Motor exam (neuro): 5/5 motor strength present throughout Sensory Exam: normal sensation Other: A&O x4 Extrem: General: normal to inspection Psych: Mental Status: mental status grossly normal Affect: normal affect Other: Malodorous, disheveled. Fair insight and judgment, pleasant. Objective Data Vital Signs Vital Signs: Vital Signs - 24 hr 01/27/25 12:00 01/27/25 14:00 01/27/25 16:00 Temperature 97.5 F L Pulse Rate 71 64 71 Respiratory Rate 18 Blood Pressure 114/44 L Pulse Oximetry 94 Oxygen Delivery 01/27/25 20:00 01/27/25 20:00 01/27/25 21:08 Temperature 98.4 F Pulse Rate 85 85 Respiratory Rate 14 Blood Pressure 121/51 L Pulse Oximetry 92 Oxygen Delivery Room Air 01/28/25 00:00 01/28/25 04:00 01/28/25 05:20 Temperature 97.1 F L Pulse Rate 88 72 76 Respiratory Rate 13 Blood Pressure 132/75 Pulse Oximetry 93 Oxygen Delivery 01/28/25 09:19 Temperature Pulse Rate 76 Respiratory Rate Blood Pressure Pulse Oximetry Oxygen Delivery Intake/Output Intake/Output: Intake & Output 01/25/25 01/26/25 01/27/25 01/28/25 23:59 23:59 23:59 23:59 Intake Total 100 3090 1627 620 Output Total 1400 850 300 Balance 100 1690 777 320 Meds/Results Medications: Active Medications Generic Name Dose Route Start Last Admin Trade Name Freq PRN Reason Stop Dose Admin Acetaminophen 650 mg 01/25/25 20:51 01/28/25 09:19 Acetaminophen 325 Mg Tablet PO 650 mg Q4H PRN Administration Headache Alprazolam 0.25 mg 01/27/25 02:15 01/28/25 00:08 Alprazolam (*Crx) 0.25 Mg Tablet PO 0.25 mg BID PRN Administration Anxiety Dextrose 12.5 gm 01/25/25 20:46 01/26/25 11:40 Dextrose 50% 25 Gm/50 Ml Syringe IV PUSH 12.5 gm PRN PRN Administration Hypoglycemia Protocol Fentanyl Citrate 25 mcg 01/25/25 20:51 Fentanyl Citrate Inj (*Crx) 100 Mcg/2 Ml Vial IV PUSH Q4H PRN Pain Rated 6 or Greater Glucagon 1 mg 01/25/25 20:46 Glucagon For Inj 1 Mg Vial IM PRN PRN Hypoglycemia Protocol Glucose 15 gm 01/25/25 20:46 Glucose Oral Gel 15 Gm Of Glucse In 37.5 Gm Tube PO PRN PRN Hypoglycemia Protocol Piperacillin Sod/Tazobactam Sod 4.5 gm in 100 mls @ 200 mls/hr 01/25/25 22:00 01/28/25 05:15 Zosyn 4.5 Gm/Ns 100 Ml IVPB Infused Q6H KANDIS Infusion Dextrose 1,000 mls @ 100 mls/hr 01/25/25 20:46 Dextrose 5% 1,000 Ml IVPB PRN PRN Hypoglycemia Protocol Insulin Aspart 4 - 8 units 01/26/25 08:00 01/28/25 09:20 Insulin Aspart (*Bkc) 100 Units/Ml SUB-Q Not Given TIDWM [facility] Protocol Magnesium Oxide 400 mg 01/27/25 09:00 01/27/25 12:30 Magnesium Oxide 400 Mg Tablet PO 400 mg DAILY KANDIS Administration Metoprolol Succinate 50 mg 01/26/25 09:00 01/28/25 09:19 Metoprolol Succinate Ext Rel 50 Mg Tabcr PO 50 mg DAILY KANDIS Administration Ondansetron HCl 4 mg 01/25/25 20:51 Ondansetron Inj 4 Mg/2 Ml Vial IV PUSH Q6H PRN Nausea And Vomiting Potassium Chloride 40 meq 01/28/25 10:10 Potassium Chloride 20 Meq Packet (For Liquid) PO DAILY KANDIS Simethicone 80 mg 01/27/25 16:11 01/28/25 09:18 Simethicone 80 Mg Tab.Chew PO 80 mg QID PRN Administration gas Tamsulosin HCl 0.4 mg 01/26/25 09:00 01/28/25 09:19 Tamsulosin Hcl 0.4 Mg Capsule PO 0.4 mg QAM KANDIS Administration Radiology Results: ITS Impressions Pelvis CT 01/26/25 14:17 IMPRESSION: 1. No significant change in a bilobed gas and fluid containing abscess in the deep pelvis. Patient canceled the planned percutaneous abscess drainage catheter placement due to discomfort despite attempts at repositioning. Labs Labs: Laboratory Results - last 24 hr 01/27/25 01/27/25 01/27/25 11:36 16:41 20:50 WBC RBC Hgb Hct MCV MCH MCHC RDW Plt Count MPV Sodium Potassium Chloride Carbon Dioxide Anion Gap BUN Creatinine Estim Creat Clear Calc Estimated GFR Glucose POC Capillary Glucose 219 H 134 H 124 H Calcium Total Bilirubin AST ALT Alkaline Phosphatase Total Protein Albumin 01/28/25 01/28/25 05:44 07:38 WBC 19.7 H RBC 3.44 L Hgb 8.2 L Hct 28.2 L MCV 82.0 MCH 23.8 L MCHC 29.1 L RDW 15.9 H Plt Count 431 H MPV 9.7 Sodium 137 Potassium 3.3 L Chloride 104 Carbon Dioxide 25 Anion Gap 8 BUN 13 Creatinine 0.77 Estim Creat Clear Calc 66 Estimated GFR > 60 Glucose 183 H POC Capillary Glucose 181 H Calcium 8.0 L Total Bilirubin 0.6 AST 25 ALT 16 Alkaline Phosphatase 139 H Total Protein 6.0 L Albumin 2.4 L Quality VTE Prophylaxis VTE prophylaxis: mechanical ordered
[2025-01-28 11:28] LABS: Glucose Point of Care 232 mg/dl (65-105)
--- NOTE | 2025-01-28 11:39 | PM.PNGS ---
Progress Note: A&P Assessment and Plan (1) Intra-abdominal abscess: Code(s): K65.1 - Peritoneal abscess Status: Acute Assessment and Plan: increased leukocytosis but exam improved/benign, will advance to low fiber diet, cont abx, follow cx and stool studies, rescan if WBC still high tomorrow Subjective Subjective Date/Time Seen: 01/28/25 11:39 Interval history: no abd pain, reports soft stools Review of Systems Review of Systems: All systems reviewed & are unremarkable except as noted in HPI and below Exam Const: General: cooperative, comfortable and no acute distress Resp: Auscultation: diminished lung sounds Cardio: Rate: regular rate Rhythm: regular rhythm GI: Inspection: normal to inspection and non-distended GI Palp: No abdominal tenderness and Yes Soft to palpation Objective Data Vital Signs Vital Signs: Vital Signs - 24 hr 01/27/25 12:00 01/27/25 14:00 01/27/25 16:00 Temperature 36.4 C L Pulse Rate 71 64 71 Respiratory Rate 18 Blood Pressure 114/44 L Pulse Oximetry 94 Oxygen Delivery 01/27/25 20:00 01/27/25 20:00 01/27/25 21:08 Temperature 36.9 C Pulse Rate 85 85 Respiratory Rate 14 Blood Pressure 121/51 L Pulse Oximetry 92 Oxygen Delivery Room Air 01/28/25 00:00 01/28/25 04:00 01/28/25 05:20 Temperature 36.2 C L Pulse Rate 88 72 76 Respiratory Rate 13 Blood Pressure 132/75 Pulse Oximetry 93 Oxygen Delivery 01/28/25 09:19 01/28/25 09:45 Temperature Pulse Rate 76 69 Respiratory Rate Blood Pressure Pulse Oximetry Oxygen Delivery Intake/Output Intake/Output: Intake & Output 01/25/25 01/26/25 01/27/25 01/28/25 23:59 23:59 23:59 23:59 Intake Total 100 3090 1627 620 Output Total 1400 850 300 Balance 100 1690 777 320 Meds/Results Medications: Active Medications Generic Name Dose Route Start Last Admin Trade Name Freq PRN Reason Stop Dose Admin Acetaminophen 650 mg 01/25/25 20:51 01/28/25 09:19 Acetaminophen 325 Mg Tablet PO 650 mg Q4H PRN Administration Headache Alprazolam 0.25 mg 01/27/25 02:15 01/28/25 00:08 Alprazolam (*Crx) 0.25 Mg Tablet PO 0.25 mg BID PRN Administration Anxiety Dextrose 12.5 gm 01/25/25 20:46 01/26/25 11:40 Dextrose 50% 25 Gm/50 Ml Syringe IV PUSH 12.5 gm PRN PRN Administration Hypoglycemia Protocol Fentanyl Citrate 25 mcg 01/25/25 20:51 Fentanyl Citrate Inj (*Crx) 100 Mcg/2 Ml Vial IV PUSH Q4H PRN Pain Rated 6 or Greater Glucagon 1 mg 01/25/25 20:46 Glucagon For Inj 1 Mg Vial IM PRN PRN Hypoglycemia Protocol Glucose 15 gm 01/25/25 20:46 Glucose Oral Gel 15 Gm Of Glucse In 37.5 Gm Tube PO PRN PRN Hypoglycemia Protocol Piperacillin Sod/Tazobactam Sod 4.5 gm in 100 mls @ 200 mls/hr 01/25/25 22:00 01/28/25 05:15 Zosyn 4.5 Gm/Ns 100 Ml IVPB Infused Q6H KANDIS Infusion Dextrose 1,000 mls @ 100 mls/hr 01/25/25 20:46 Dextrose 5% 1,000 Ml IVPB PRN PRN Hypoglycemia Protocol Insulin Aspart 4 - 8 units 01/26/25 08:00 01/28/25 09:20 Insulin Aspart (*Bkc) 100 Units/Ml SUB-Q Not Given TIDWM KANDIS Protocol Magnesium Oxide 400 mg 01/27/25 09:00 01/27/25 12:30 Magnesium Oxide 400 Mg Tablet PO 400 mg DAILY KANDIS Administration Metoprolol Succinate 50 mg 01/26/25 09:00 01/28/25 09:19 Metoprolol Succinate Ext Rel 50 Mg Tabcr PO 50 mg DAILY KANDIS Administration Ondansetron HCl 4 mg 01/25/25 20:51 Ondansetron Inj 4 Mg/2 Ml Vial IV PUSH Q6H PRN Nausea And Vomiting Potassium Chloride 40 meq 01/28/25 10:10 Potassium Chloride 20 Meq Packet (For Liquid) PO DAILY KANDIS Simethicone 80 mg 01/27/25 16:11 01/28/25 09:18 Simethicone 80 Mg Tab.Chew PO 80 mg QID PRN Administration gas Tamsulosin HCl 0.4 mg 01/26/25 09:00 01/28/25 09:19 Tamsulosin Hcl 0.4 Mg Capsule PO 0.4 mg QAM KANDIS Administration Radiology Results: ITS Impressions Pelvis CT 01/26/25 14:17 IMPRESSION: 1. No significant change in a bilobed gas and fluid containing abscess in the deep pelvis. Patient canceled the planned percutaneous abscess drainage catheter placement due to discomfort despite attempts at repositioning. Labs Labs: Laboratory Results - last 24 hr 01/27/25 01/27/25 01/27/25 11:36 16:41 20:50 WBC RBC Hgb Hct MCV MCH MCHC RDW Plt Count MPV Sodium Potassium Chloride Carbon Dioxide Anion Gap BUN Creatinine Estim Creat Clear Calc Estimated GFR Glucose POC Capillary Glucose 219 H 134 H 124 H Calcium Total Bilirubin AST ALT Alkaline Phosphatase Total Protein Albumin 01/28/25 01/28/25 01/28/25 05:44 07:38 11:22 WBC 19.7 H RBC 3.44 L Hgb 8.2 L Hct 28.2 L MCV 82.0 MCH 23.8 L MCHC 29.1 L RDW 15.9 H Plt Count 431 H MPV 9.7 Sodium 137 Potassium 3.3 L Chloride 104 Carbon Dioxide 25 Anion Gap 8 BUN 13 Creatinine 0.77 Estim Creat Clear Calc 66 Estimated GFR > 60 Glucose 183 H POC Capillary Glucose 181 H 232 H Calcium 8.0 L Total Bilirubin 0.6 AST 25 ALT 16 Alkaline Phosphatase 139 H Total Protein 6.0 L Albumin 2.4 L
[2025-01-28 17:07] LABS: Glucose Point of Care 191 mg/dl (65-105)
[2025-01-28] MEDS: POTASSIUM CHLORIDE 20 MEQ PACKET (FOR LIQUID) 40 MEQ PO (17:21)
[2025-01-28] MEDS: MAGNESIUM OXIDE 400 MG TABLET PO (17:22)
[2025-01-28 20:45] LABS: Glucose Point of Care 186 mg/dl (65-105)
[2025-01-29] VITALS (9 sets, daily range): BP systolic 135–151; BP diastolic 63–66; PULSE 65–91; RESP 12–18; TEMP 36.3–36.7; O2SAT 94–96
[2025-01-29] MEDS: ALPRAZolam (*CRX) 0.25 MG TABLET PO ×4 (00:09→21:26)
[2025-01-29] MEDS: fentaNYL CITRATE INJ (*CRX) 100 MCG/2 ML VIAL 25 MCG IV PUSH (01:40)
[2025-01-29] MEDS: ACETAMINOPHEN 325 MG TABLET 650 MG PO ×4 (03:47→21:25)
[2025-01-29] MEDS: PIPERACILLIN/TAZ 4.5G/NS 100ML 4.5 GM/100 ML BAG IVPB (05:20)
--- NOTE | 2025-01-29 05:46 | PC.NURSE ---
Pt. and family are refusing the use of bed alarms, so I did education on safety and fall risk. I encouraged the use of the call light.
[2025-01-29 06:23] LABS: Hematocrit 30.3 % (37.0-47.0); Mean Corpuscular HGB Conc 29.7 g/dl (32-36); Mean Corpuscular Hemoglobin 23.6 pg (26-34); Mean Corpuscular Volume 79.5 fl (80-100); Mean Platelet Volume 9.5 fl (7.4-10.4); Platelet Count Result 546 k/mm3 (150-375); Red Blood Count 3.81 M/mm3 (4.2-5.4); White Blood Count 17.1 K/mm3 (4.5-10.0)
[2025-01-29 06:35] LABS: Alanine Aminotransferase 16 U/L (6-35); Albumin Level 2.7 g/dL (3.5-5.1); Alkaline Phosphatase 145 U/L (38-126); Anion Gap 9 mmol/L (4-12); Aspartate Amino Transferase 25 U/L (14-36); Bilirubin,Total 0.5 mg/dL (0.2-1.3); Blood Urea Nitrogen 13 mg/dL (7-17); Calcium 8.2 mg/dL (8.4-10.2); Carbon Dioxide 28 mmol/L (22-30); Chloride 102 mmol/L (98-107); Estimated CRCL calculation 67 ml/min; Estimated Glomerular Filt Rate > 60; Glucose 161 mg/dL (65-110); Potassium 3.4 mmol/L (3.4-5.0); Sodium 139 mmol/L (137-145)
[2025-01-29 07:46] LABS: Glucose Point of Care 175 mg/dl (65-105)
--- NOTE | 2025-01-29 08:25 | P.PNIM_ITS ---
Progress Note: A&P Assessment and Plan (1) Sepsis: Qualifiers: Sepsis acute organ dysfunction status: without acute organ dysfunction Sepsis type: sepsis due to unspecified organism Qualified Code(s): A41.9 - S epsis, unspecified organism Code(s): A41.9 - Sepsis, unspecified organism Status: Acute Assessment and Plan: meets SIRS criteria: HR elevated, WBC 21.8., lactic acidosis, and suspected source lactic acid: 2.5 -> 1.7 Procal 0.4 30 mL/kg = 2.9L, given 2L bolus in ED suspected source: colitis., possible UTI started on vancomycin and Zosyn on 01/25, continue as monotherapy with Zosyn 4.5G Q6H blood cultures drawn on 01/25: pending Remains hemodynamically stable, monitor.? BP on the low end of normotensive. Holding all home antihypertensives, besides metoprolol. Monitor I&Os. 01/29 Antibiotics changed to Meropenem and Vancomycin per General surgery recommen dations General surgery with concerns for C diff, however C diff is negative WBC trending downward, 17.1 today blood cultures showing no growth to date on preliminary read Stool culture pending (2) Colitis: Code(s): K52.9 - Noninfective gastroenteritis and colitis, unspecified Status: Acute Assessment and Plan: * CT of the abdomen/pelvis showing Large abscess which is relatively unchanged from previous * General surgery following * Antibiotics changed to meropenem and Vancomycin * C diff was negative * Stool cultures pending * Blood cultures showing no growth to date on preliminary reaed (3) Hypokalemia: Code(s): E87.6 - Hypokalemia Status: Acute Assessment and Plan: continue po supplements as needed, 3.4 today (4) UTI (urinary tract infection): Qualifiers: Hematuria presence: without hematuria Urinary tract infection type: acute cystitis Qualified Code(s): N30.00 - Acute cystitis without hematuria Code(s): N39.0 - Urinary tract infection, site not specified Status: Suspected Assessment and Plan: UA:? 1+ protein, 3+ blood, 2.00 urobilinogen, trace leuks, 11-20 RBC, rare epithelial cells, 2+ bacteria. Urine culture negative (5) Urinary retention: Code(s): R33.9 - Retention of urine, unspecified Status: Acute Assessment and Plan: Espinoza catheter remains in place due to urinary retention Will need voiding trial prior to discharge Continue Flomax (6) Diabetes 1.5, managed as type 2: Code(s): E13.9 - Other specified diabetes mellitus without complications Status: Acute Assessment and Plan: Blood sugar ranging 175-215 Hgb A1C 9.6 on 01/26/25 ACHS accu checks Hold glimepiride and pioglitazone3 High dose SSI ordered Start Lantus 10 units tonight Continue Diabetic diet/ Low residue diet hypoglycemic protocol in place (7) Hypertension: Qualifiers: Hypertension type: unspecified Qualified Code(s): I10 - Essential (primary) hypertension Code(s): I10 - Essential (primary) hypertension Status: Acute Assessment and Plan: Blood pressures ranging 116/47-151/64 Continue Metoprolol, triamterene/HCTZ, Verapamil Time Spent With Patient Time with patient: 15 - 25 minutes Subjective Date/time seen: 01/29/25 08:25 Interval history: Patient states that she got anxious yesterday in CT when they wanted to place a drain for the abscess. General surgery notified of this yesterday. She denies any new complaints today. Labs and imaging reviewed. Review of Systems Review of Systems: All systems reviewed & are unremarkable except as noted in HPI and below Exam Narrative: General:No acute distress HEENT: Normocephalic. Atraumatic. Chest: Lungs are clear to auscultation bilaterally. No wheezes or crackles. CV:RRR, no murmur Abd: Abdomen was soft. LLQ tenderness. Nondistended. Positive bowel sounds. Having multiple bowel movements today Neuro: Patient is alert and oriented x4. Objective Data Vital Signs Vital Signs: Vital Signs - 24 hr 01/28/25 09:19 01/28/25 09:45 01/28/25 12:00 Temperature Pulse Rate 76 69 66 Respiratory Rate Blood Pressure Pulse Oximetry 01/28/25 13:42 01/28/25 16:00 01/28/25 20:35 Temperature 97.3 F L Pulse Rate 67 68 81 Respiratory Rate 18 Blood Pressure 133/52 L Pulse Oximetry 96 01/28/25 22:00 01/29/25 00:00 01/29/25 04:00 Temperature 97.5 F L Pulse Rate 79 77 74 Respiratory Rate 16 Blood Pressure 116/47 L Pulse Oximetry 91 01/29/25 05:44 Temperature 97.4 F L Pulse Rate 72 Respiratory Rate 12 Blood Pressure 135/66 Pulse Oximetry 96 Intake/Output Intake/Output: Intake & Output 01/26/25 01/27/25 01/28/25 01/29/25 23:59 23:59 23:59 23:59 Intake Total 3090 1627 1460 200 Output Total 3384 724 2713 500 Balance 1690 777 260 -300 Meds/Results Medications: Active Medications Generic Name Dose Route Start Last Admin Trade Name Freq PRN Reason Stop Dose Admin Acetaminophen 650 mg 01/25/25 20:51 01/29/25 03:47 Acetaminophen 325 Mg Tablet PO 650 mg Q4H PRN Administration Headache Alprazolam 0.25 mg 01/27/25 02:15 01/29/25 00:09 Alprazolam (*Crx) 0.25 Mg Tablet PO 0.25 mg BID PRN Administration Anxiety Dextrose 12.5 gm 01/25/25 20:46 01/26/25 11:40 Dextrose 50% 25 Gm/50 Ml Syringe IV PUSH 12.5 gm PRN PRN Administration Hypoglycemia Protocol Fentanyl Citrate 25 mcg 01/25/25 20:51 01/29/25 01:40 Fentanyl Citrate Inj (*Crx) 100 Mcg/2 Ml Vial IV PUSH 25 mcg Q4H PRN Administration Pain Rated 6 or Greater Glucagon 1 mg 01/25/25 20:46 Glucagon For Inj 1 Mg Vial IM PRN PRN Hypoglycemia Protocol Glucose 15 gm 01/25/25 20:46 Glucose Oral Gel 15 Gm Of Glucse In 37.5 Gm Tube PO PRN PRN Hypoglycemia Protocol Piperacillin Sod/Tazobactam Sod 4.5 gm in 100 mls @ 200 mls/hr 01/25/25 22:00 01/29/25 05:20 Zosyn 4.5 Gm/Ns 100 Ml IVPB 200 mls/hr Q6H KANDIS Administration Dextrose 1,000 mls @ 100 mls/hr 01/25/25 20:46 Dextrose 5% 1,000 Ml IVPB PRN PRN Hypoglycemia Protocol Insulin Aspart 4 - 8 units 01/26/25 08:00 01/28/25 17:22 Insulin Aspart (*Bkc) 100 Units/Ml SUB-Q Not Given TIDWM KANDIS Protocol Magnesium Oxide 400 mg 01/27/25 09:00 01/28/25 17:22 Magnesium Oxide 400 Mg Tablet PO 400 mg DAILY KANDIS Administration Metoprolol Succinate 50 mg 01/26/25 09:00 01/28/25 09:19 Metoprolol Succinate Ext Rel 50 Mg Tabcr PO 50 mg DAILY KANDIS Administration Ondansetron HCl 4 mg 01/25/25 20:51 Ondansetron Inj 4 Mg/2 Ml Vial IV PUSH Q6H PRN Nausea And Vomiting Potassium Chloride 40 meq 01/28/25 10:10 01/28/25 17:21 Potassium Chloride 20 Meq Packet (For Liquid) PO 40 meq DAILY KANDIS Administration Simethicone 80 mg 01/27/25 16:11 01/28/25 22:25 Simethicone 80 Mg Tab.Chew PO 80 mg QID PRN Administration gas Tamsulosin HCl 0.4 mg 01/26/25 09:00 01/28/25 09:19 Tamsulosin Hcl 0.4 Mg Capsule PO 0.4 mg QAM KANDIS Administration Radiology Results: ITS Impressions Pelvis CT 01/26/25 14:17 IMPRESSION: 1. No significant change in a bilobed gas and fluid containing abscess in the deep pelvis. Patient canceled the planned percutaneous abscess drainage catheter placement due to discomfort despite attempts at repositioning. Labs Labs: Laboratory Results - last 24 hr 01/28/25 01/28/25 01/28/25 11:22 17:00 19:48 WBC RBC Hgb Hct MCV MCH MCHC RDW Plt Count MPV Sodium Potassium Chloride Carbon Dioxide Anion Gap BUN Creatinine Estim Creat Clear Calc Estimated GFR Glucose POC Capillary Glucose 232 H 191 H 186 H Calcium Total Bilirubin AST ALT Alkaline Phosphatase Total Protein Albumin 01/29/25 01/29/25 05:27 07:37 WBC 17.1 H RBC 3.81 L Hgb 9.0 L Hct 30.3 L MCV 79.5 L MCH 23.6 L MCHC 29.7 L RDW 16.0 H Plt Count 546 H MPV 9.5 Sodium 139 Potassium 3.4 Chloride 102 Carbon Dioxide 28 Anion Gap 9 BUN 13 Creatinine 0.76 Estim Creat Clear Calc 67 Estimated GFR > 60 Glucose 161 H POC Capillary Glucose 175 H Calcium 8.2 L Total Bilirubin 0.5 AST 25 ALT 16 Alkaline Phosphatase 145 H Total Protein 7.0 Albumin 2.7 L Quality VTE Prophylaxis VTE prophylaxis: mechanical ordered
[2025-01-29] MEDS: METOPROLOL SUCCINATE EXT REL 50 MG TABCR PO (08:53)
[2025-01-29] MEDS: SIMETHICONE 80 MG TAB.CHEW PO (08:53)
[2025-01-29] MEDS: MAGNESIUM OXIDE 400 MG TABLET PO (08:54)
[2025-01-29] MEDS: TAMSULOSIN HCL 0.4 MG CAPSULE PO (08:54)
--- NOTE | 2025-01-29 09:03 | P.PNGS_ITS ---
Progress Note: A&P Assessment and Plan (1) Intra-abdominal abscess: Code(s): K65.1 - Peritoneal abscess Status: Acute Assessment and Plan: exam cont to be completely benign, will get CT to reevaluate as pt still c significant leukocytosis, suspect CDiff, will send stool samples, change abx Subjective Subjective Date/Time Seen: 01/29/25 09:03 Interval history: no pain, maria isabel diet, +diarrhea Review of Systems Review of Systems: All systems reviewed & are unremarkable except as noted in HPI and below Exam Const: General: cooperative, comfortable and no acute distress Resp: Auscultation: clear to auscultation bilaterally Cardio: Rate: regular rate Rhythm: regular rhythm GI: Inspection: normal to inspection and non-distended GI Palp: No abdominal tenderness, Yes Soft to palpation, No Tenderness to palpation present (GI), No Guarding due to palpation present (GI) and No Rigid due to palpation Objective Data Vital Signs Vital Signs: Vital Signs - 24 hr 01/28/25 09:19 01/28/25 09:45 01/28/25 12:00 Temperature Pulse Rate 76 69 66 Respiratory Rate Blood Pressure Pulse Oximetry 01/28/25 13:42 01/28/25 16:00 01/28/25 20:35 Temperature 36.3 C L Pulse Rate 67 68 81 Respiratory Rate 18 Blood Pressure 133/52 L Pulse Oximetry 96 01/28/25 22:00 01/29/25 00:00 01/29/25 04:00 Temperature 36.4 C L Pulse Rate 79 77 74 Respiratory Rate 16 Blood Pressure 116/47 L Pulse Oximetry 91 01/29/25 05:44 01/29/25 08:53 Temperature 36.3 C L Pulse Rate 72 72 Respiratory Rate 12 Blood Pressure 135/66 Pulse Oximetry 96 Intake/Output Intake/Output: Intake & Output 01/26/25 01/27/25 01/28/25 01/29/25 23:59 23:59 23:59 23:59 Intake Total 3090 1627 1460 200 Output Total 0561 162 9275 500 Balance 1690 777 260 -300 Meds/Results Medications: Active Medications Generic Name Dose Route Start Last Admin Trade Name Freq PRN Reason Stop Dose Admin Acetaminophen 650 mg 01/25/25 20:51 01/29/25 08:53 Acetaminophen 325 Mg Tablet PO 650 mg Q4H PRN Administration Headache Alprazolam 0.25 mg 01/29/25 08:48 01/29/25 08:58 Alprazolam (*Crx) 0.25 Mg Tablet PO 0.25 mg QID PRN Administration Anxiety Dextrose 12.5 gm 01/25/25 20:46 01/26/25 11:40 Dextrose 50% 25 Gm/50 Ml Syringe IV PUSH 12.5 gm PRN PRN Administration Hypoglycemia Protocol Fentanyl Citrate 25 mcg 01/25/25 20:51 01/29/25 01:40 Fentanyl Citrate Inj (*Crx) 100 Mcg/2 Ml Vial IV PUSH 25 mcg Q4H PRN Administration Pain Rated 6 or Greater Glucagon 1 mg 01/25/25 20:46 Glucagon For Inj 1 Mg Vial IM PRN PRN Hypoglycemia Protocol Glucose 15 gm 01/25/25 20:46 Glucose Oral Gel 15 Gm Of Glucse In 37.5 Gm Tube PO PRN PRN Hypoglycemia Protocol Dextrose 1,000 mls @ 100 mls/hr 01/25/25 20:46 Dextrose 5% 1,000 Ml IVPB PRN PRN Hypoglycemia Protocol Insulin Aspart 4 - 8 units 01/26/25 08:00 01/28/25 17:22 Insulin Aspart (*Bkc) 100 Units/Ml SUB-Q Not Given TIDWM [facility] Protocol Magnesium Oxide 400 mg 01/27/25 09:00 01/29/25 08:54 Magnesium Oxide 400 Mg Tablet PO 400 mg DAILY KANDIS Administration Metoprolol Succinate 50 mg 01/26/25 09:00 01/29/25 08:53 Metoprolol Succinate Ext Rel 50 Mg Tabcr PO 50 mg DAILY KANDIS Administration Ondansetron HCl 4 mg 01/25/25 20:51 Ondansetron Inj 4 Mg/2 Ml Vial IV PUSH Q6H PRN Nausea And Vomiting Potassium Chloride 40 meq 01/29/25 09:00 Potassium Chloride 20 Meq Er Tablet PO DAILY KANDIS Simethicone 80 mg 01/27/25 16:11 01/29/25 08:53 Simethicone 80 Mg Tab.Chew PO 80 mg QID PRN Administration gas Tamsulosin HCl 0.4 mg 01/26/25 09:00 01/29/25 08:54 Tamsulosin Hcl 0.4 Mg Capsule PO 0.4 mg QAM KANDIS Administration Radiology Results: ITS Impressions Pelvis CT 01/26/25 14:17 IMPRESSION: 1. No significant change in a bilobed gas and fluid containing abscess in the deep pelvis. Patient canceled the planned percutaneous abscess drainage catheter placement due to discomfort despite attempts at repositioning. Labs Labs: Laboratory Results - last 24 hr 01/28/25 01/28/25 01/28/25 11:22 17:00 19:48 WBC RBC Hgb Hct MCV MCH MCHC RDW Plt Count MPV Sodium Potassium Chloride Carbon Dioxide Anion Gap BUN Creatinine Estim Creat Clear Calc Estimated GFR Glucose POC Capillary Glucose 232 H 191 H 186 H Calcium Total Bilirubin AST ALT Alkaline Phosphatase Total Protein Albumin 01/29/25 01/29/25 05:27 07:37 WBC 17.1 H RBC 3.81 L Hgb 9.0 L Hct 30.3 L MCV 79.5 L MCH 23.6 L MCHC 29.7 L RDW 16.0 H Plt Count 546 H MPV 9.5 Sodium 139 Potassium 3.4 Chloride 102 Carbon Dioxide 28 Anion Gap 9 BUN 13 Creatinine 0.76 Estim Creat Clear Calc 67 Estimated GFR > 60 Glucose 161 H POC Capillary Glucose 175 H Calcium 8.2 L Total Bilirubin 0.5 AST 25 ALT 16 Alkaline Phosphatase 145 H Total Protein 7.0 Albumin 2.7 L
--- NOTE | 2025-01-29 10:31 | PC.NURSE ---
This RN walked into pt room this AM and pt, pt bed, sheets, floor, socks, and bedframe all covered in stool. Pt cleaned and changed, along with bed, stat lock, tele leads, commode, etc. Pt placed back on alarms as she is a high fall risk. Pt daughter said she does not want the alarms, that they give her a migraine. Pt stated she does not want alarms because they go off all the time. Educated pt and dtr about safety, falls, weakness. They reluctantly agreed. Alarm has gone off twice so far this AM. [place] into room to answer bed alarm, and pt and dtr refused alarm entirely this time. This RN to bedside and again discussed safety/alarms/fall risk. Pt and dtr continuing to refuse bed alarms. Charge and provider made aware.
[2025-01-29 12:05] LABS: Glucose Point of Care 184 mg/dl (65-105)
[2025-01-29] MEDS: POTASSIUM CHLORIDE 20 MEQ ER TABLET 40 MEQ PO (13:42)
[2025-01-29] MEDS: MEROPENEM 1 GM/NS 100 ML 1 GM/100 ML BAG IVPB ×2 (13:42→21:25)
[2025-01-29] MEDS: VANCOMYCIN HCL 125 MG ORAL CAPSULE PO ×2 (13:43→16:56)
[2025-01-29] MEDS: VANCOMYCIN 1,500 MG/NS 500 ML 1,500 MG/500 ML BAG 250 MG IVPB (14:18)
[2025-01-29 14:41] LABS: Toxigenic C. Diff NEGATIVE (NEGATIVE)
[2025-01-29] MEDS: SACCHAROMYCES BOULARDII 250 MG CAPSULE PO (16:56)
[2025-01-29] MEDS: INSULIN ASPART (*BKC) 100 UNITS/ML SUB-Q (16:56)
[2025-01-29 16:57] LABS: Glucose Point of Care 215 mg/dl (65-105)
[2025-01-29 20:35] LABS: Glucose Point of Care 138 mg/dl (65-105)
[2025-01-29] MEDS: INSULIN GLARGINE (*BKC) 100 UNITS/ML 10 UNITS SUB-Q (21:26)
[2025-01-30] VITALS (10 sets, daily range): BP systolic 118–145; BP diastolic 63–76; PULSE 57–132; RESP 16–20; TEMP 36.1–36.4; O2SAT 92–96
[2025-01-30] MEDS: SIMETHICONE 80 MG TAB.CHEW PO (01:50)
[2025-01-30] MEDS: fentaNYL CITRATE INJ (*CRX) 100 MCG/2 ML VIAL 25 MCG IV PUSH (04:22)
[2025-01-30 05:29] LABS: Hematocrit 30.1 % (37.0-47.0); Hemoglobin 9.1 g/dL (12.0-15.0); Mean Corpuscular HGB Conc 30.2 g/dl (32-36); Mean Corpuscular Hemoglobin 23.7 pg (26-34); Mean Corpuscular Volume 78.4 fl (80-100); Mean Platelet Volume 9.3 fl (7.4-10.4); Platelet Count Result 588 k/mm3 (150-375); Red Blood Count 3.84 M/mm3 (4.2-5.4); Red Cell Distribution Width 16.1 % (11.5-14.5); White Blood Count 20.7 K/mm3 (4.5-10.0)
[2025-01-30 05:41] LABS: Alanine Aminotransferase 14 U/L (6-35); Albumin Level 2.6 g/dL (3.5-5.1); Alkaline Phosphatase 129 U/L (38-126); Anion Gap 9 mmol/L (4-12); Aspartate Amino Transferase 22 U/L (14-36); Bilirubin,Total 0.4 mg/dL (0.2-1.3); Blood Urea Nitrogen 10 mg/dL (7-17); Carbon Dioxide 27 mmol/L (22-30); Chloride 103 mmol/L (98-107); Estimated CRCL calculation 88 ml/min; Estimated Glomerular Filt Rate > 60; Glucose 139 mg/dL (65-110); Potassium 3.2 mmol/L (3.4-5.0); Sodium 139 mmol/L (137-145)
[2025-01-30] MEDS: MEROPENEM 1 GM/NS 100 ML 1 GM/100 ML BAG IVPB ×3 (06:33→21:11)
[2025-01-30 07:59] LABS: Glucose Point of Care 146 mg/dl (65-105)
[2025-01-30] MEDS: VANCOMYCIN 1,500 MG/NS 500 ML 1,500 MG/500 ML BAG 250 MG IVPB (08:27)
[2025-01-30] MEDS: MAGNESIUM OXIDE 400 MG TABLET PO (08:28)
[2025-01-30] MEDS: METOPROLOL SUCCINATE EXT REL 50 MG TABCR PO (08:28)
[2025-01-30] MEDS: VERAPAMIL HCL ER 240 MG TABLET.ER PO ×2 (08:28→21:12)
[2025-01-30] MEDS: TAMSULOSIN HCL 0.4 MG CAPSULE PO (08:28)
[2025-01-30] MEDS: TRIAMTERENE 37.5 MG/HCTZ 25 MG (MAXZIDE) TABLET 1 TAB PO (08:28)
[2025-01-30] MEDS: SACCHAROMYCES BOULARDII 250 MG CAPSULE PO ×3 (08:28→16:45)
[2025-01-30] MEDS: POTASSIUM CHLORIDE 20 MEQ ER TABLET 40 MEQ PO (08:28)
--- NOTE | 2025-01-30 08:33 | P.PNIM_ITS ---
Progress Note: A&P Assessment and Plan (1) Sepsis: Qualifiers: Sepsis acute organ dysfunction status: without acute organ dysfunction Sepsis type: sepsis due to unspecified organism Qualified Code(s): A41.9 - S epsis, unspecified organism Code(s): A41.9 - Sepsis, unspecified organism Status: Acute Assessment and Plan: Patient met for SIRS on admission: HR elevated, WBC 21.8., lactic acidosis, and suspected source was an intra abdominal abscess, 30 mL/kg = 2.9L, given 2L bolus in ED was started on vancomycin and Zosyn on 01/25, surgery since his transitioned to meropenem and vancomycin blood cultures continue with NGTD Remains hemodynamically stable, C-Diff was negative * Serial CBC monitoring WBC bumped up 20.1 * narrow ABX pending cultures (2) Colitis: Code(s): K52.9 - Noninfective gastroenteritis and colitis, unspecified Status: Acute Assessment and Plan: CT of the abdomen/pelvis showing Large abscess which is relatively unchanged from previous General surgery is following and drain to be placed 01/31/25, Antibiotics changed to meropenem and Vancomycin pending cultures, c-diff negative had small bump in WBC * Stool cultures pending * Monitor blood cultures NGTD * monitor and replenish electrolytes as need (3) Hypokalemia: Code(s): E87.6 - Hypokalemia Status: Acute Assessment and Plan: * continue po supplements as needed, 3.4 today (4) Urinary retention: Code(s): R33.9 - Retention of urine, unspecified Status: Acute Assessment and Plan: * Espinoza catheter remains in place due to urinary retention * Will need voiding trial prior to discharge * Continue Flomax (5) Diabetes 1.5, managed as type 2: Code(s): E13.9 - Other specified diabetes mellitus without complications Status: Acute Assessment and Plan: * Blood sugar ranging 175-215 * Hgb A1C 9.6 on 01/26/25 * ACHS accu checks * Hold glimepiride and pioglitazone3 * High dose SSI ordered * Start Lantus 10 units tonight * Continue Diabetic diet/ Low residue diet * hypoglycemic protocol in place (6) Hypertension: Qualifiers: Hypertension type: unspecified Qualified Code(s): I10 - Essential (primary) hypertension Code(s): I10 - Essential (primary) hypertension Status: Acute Assessment and Plan: * Blood pressures ranging 116/47-151/64 * Continue Metoprolol, triamterene/HCTZ, Verapamil * monitor BP per unit protocol Plan Code status: Full code per patient DVT prophylaxis: Lovenox Stress ulcer prophylaxis: Protonix 40 daily PT/OT notes: Pending Disposition: Patient continues admission for sepsis secondary to intra- abdominal abscess with drain placement planned, general surgery following appreciate all recommendations continue with IV antibiotics pending cultures. PT/ OT has been ordered pending any potential discharge needs Time Spent With Patient Time with patient: 15 - 25 minutes Subjective Date/time seen: 01/30/25 08:33 Interval history: Patient is a 74-year-old female admitted for further evaluation and treatment intra abdominal abscess she is planned to have a CT-guided drain placed upon admission she septic without septic shock general surgery consulted and following appreciate all recommendations. 01/30/2025: Patient reported chills but otherwise no complaints. ABD exam benign and she was tolerating diet. Her WBC bump there is plan for drain placement Saturday. Review of Systems Review of Systems: All systems reviewed & are unremarkable except as noted in HPI and below Exam Narrative: General:No acute distress HEENT: Normocephalic. Atraumatic. Chest: Lungs are clear to auscultation bilaterally. No wheezes or crackles. CV:RRR, no murmur Abd: Abdomen was soft. LLQ tenderness. Nondistended. Positive bowel sounds. Neuro: Patient is alert and oriented x4. Objective Data Vital Signs Vital Signs: Vital Signs - 24 hr 01/29/25 08:53 01/29/25 12:00 01/29/25 14:00 Temperature 97.7 F Pulse Rate 72 67 76 Respiratory Rate 15 Blood Pressure 151/64 H Pulse Oximetry 94 01/29/25 16:00 01/29/25 21:26 01/30/25 00:00 Temperature 98.0 F Pulse Rate 65 67 132 H Respiratory Rate 18 Blood Pressure 137/63 Pulse Oximetry 96 01/30/25 04:00 01/30/25 06:00 01/30/25 08:28 Temperature 97.6 F Pulse Rate 110 H 57 L 128 H Respiratory Rate 18 Blood Pressure 145/76 H Pulse Oximetry 94 Intake/Output Intake/Output: Intake & Output 04/23/25 04/24/25 04/25/25 04/26/25 23:59 23:59 23:59 23:59 Intake Total 1627 1460 1217 300 Output Total 850 1200 500 800 Balance 777 029 717 -500 Meds/Results Medications: Active Medications Generic Name Dose Route Start Last Admin Trade Name Freq PRN Reason Stop Dose Admin Acetaminophen 650 mg 01/25/25 20:51 01/29/25 21:25 Acetaminophen 325 Mg Tablet PO 650 mg Q4H PRN Administration Headache Alprazolam 0.25 mg 01/29/25 08:48 01/29/25 21:26 Alprazolam (*Crx) 0.25 Mg Tablet PO 0.25 mg QID PRN Administration Anxiety Dextrose 12.5 gm 01/25/25 20:46 01/26/25 11:40 Dextrose 50% 25 Gm/50 Ml Syringe IV PUSH 12.5 gm PRN PRN Administration Hypoglycemia Protocol Fentanyl Citrate 25 mcg 01/25/25 20:51 01/30/25 04:22 Fentanyl Citrate Inj (*Crx) 100 Mcg/2 Ml Vial IV PUSH 25 mcg Q4H PRN Administration Pain Rated 6 or Greater Glucagon 1 mg 01/25/25 20:46 Glucagon For Inj 1 Mg Vial IM PRN PRN Hypoglycemia Protocol Glucose 15 gm 01/25/25 20:46 Glucose Oral Gel 15 Gm Of Glucse In 37.5 Gm Tube PO PRN PRN Hypoglycemia Protocol Dextrose 1,000 mls @ 100 mls/hr 01/25/25 20:46 Dextrose 5% 1,000 Ml IVPB PRN PRN Hypoglycemia Protocol Meropenem 1 gm in 100 mls @ 200 mls/hr 01/29/25 13:00 01/30/25 06:33 IVPB 200 mls/hr Q8HR KANDIS Administration Vancomycin HCl 1,500 mg in 500 mls @ 250 mls/hr 01/30/25 09:00 01/30/25 08:27 Vancomycin 1,500 Mg/Ns 500 Ml IVPB 250 mls/hr Q12H KANDIS Administration Insulin Aspart 4 - 8 units 01/26/25 08:00 01/30/25 08:26 Insulin Aspart (*Bkc) 100 Units/Ml SUB-Q Not Given TIDWM KANDIS Protocol Insulin Glargine 10 units 01/29/25 21:00 01/29/25 21:26 Insulin Glargine (*Bkc) 100 Units/Ml SUB-Q 10 units HS KANDIS Administration Magnesium Oxide 400 mg 01/27/25 09:00 01/30/25 08:28 Magnesium Oxide 400 Mg Tablet PO 400 mg DAILY KANDIS Administration Metoprolol Succinate 50 mg 01/26/25 09:00 01/30/25 08:28 Metoprolol Succinate Ext Rel 50 Mg Tabcr PO 50 mg DAILY KANDIS Administration Ondansetron HCl 4 mg 01/25/25 20:51 Ondansetron Inj 4 Mg/2 Ml Vial IV PUSH Q6H PRN Nausea And Vomiting Potassium Chloride 40 meq 01/29/25 09:00 01/30/25 08:28 Potassium Chloride 20 Meq Er Tablet PO 40 meq DAILY KANDIS Administration Saccharomyces Boulardii 250 mg 01/29/25 17:00 01/30/25 08:28 Saccharomyces Boulardii 250 Mg Capsule PO 250 mg TID KANDIS Administration Simethicone 80 mg 01/27/25 16:11 01/30/25 01:50 Simethicone 80 Mg Tab.Chew PO 80 mg QID PRN Administration gas Tamsulosin HCl 0.4 mg 01/26/25 09:00 01/30/25 08:28 Tamsulosin Hcl 0.4 Mg Capsule PO 0.4 mg QAM KANDIS Administration Triamterene/Hydrochlorothiazide 1 tab 01/30/25 09:00 01/30/25 08:28 Triamterene 37.5 Mg/Hctz 25 Mg (Maxzide) Tablet PO 1 tab DAILY KANDIS Administration Verapamil HCl 240 mg 01/29/25 21:00 01/30/25 08:28 Verapamil Hcl Er 240 Mg Tablet.Er PO 240 mg Q12HR KANDIS Administration Radiology Results: ITS Impressions Pelvis CT 01/26/25 14:17 IMPRESSION: 1. No significant change in a bilobed gas and fluid containing abscess in the deep pelvis. Patient canceled the planned percutaneous abscess drainage catheter placement due to discomfort despite attempts at repositioning. Abdomen/Pelvis CT 01/29/25 09:28 Impression: Stable large bilobed multilocular abscess in the pelvis extensively involving the distal sigmoid colon and rectum. Stable wall thickening of the distal sigmoid colon and rectum. Small right pleural effusion with right basilar atelectatic change. Cholelithiasis. Nephrolithiasis bilaterally, as detailed above. Labs Labs: Laboratory Results - last 24 hr 01/29/25 01/29/25 01/29/25 12:01 13:26 16:50 WBC RBC Hgb Hct MCV MCH MCHC RDW Plt Count MPV Sodium Potassium Chloride Carbon Dioxide Anion Gap BUN Creatinine Estim Creat Clear Calc Estimated GFR Glucose POC Capillary Glucose 184 H 215 H Calcium Total Bilirubin AST ALT Alkaline Phosphatase Total Protein Albumin C. difficile (PCR) Negative 01/29/25 01/30/25 01/30/25 19:52 04:52 07:33 WBC 20.7 H RBC 3.84 L Hgb 9.1 L Hct 30.1 L MCV 78.4 L MCH 23.7 L MCHC 30.2 L RDW 16.1 H Plt Count 588 H MPV 9.3 Sodium 139 Potassium 3.2 L Chloride 103 Carbon Dioxide 27 Anion Gap 9 BUN 10 Creatinine 0.56 L Estim Creat Clear Calc 88 Estimated GFR > 60 Glucose 139 H POC Capillary Glucose 138 H 146 H Calcium 8.0 L Total Bilirubin 0.4 AST 22 ALT 14 Alkaline Phosphatase 129 H Total Protein 7.0 Albumin 2.6 L C. difficile (PCR) Quality VTE Prophylaxis VTE prophylaxis: mechanical ordered -Patient's previous records reviewed on admission -ER notes reviewed in detail on admission -discussed all findings and current treatment plan with patient/Family/POA -Consultations reviewed for recommendations -Patient's disposition for safe discharge discussed with gearcase assembler Dictation performed by [employer] direct speech recognition software, therefore lockstitch back maker variants and typographical errors may occur. Hospitalist MIPS Advance Care Plan I have confirmed that the patient's Advanced Care Plan is present, code status is documented, or surrogate decision maker is listed in patient medical record.: Yes Medication Reconciliation I have utilized all available resources to obtain, update and review the patients current medications (includes all prescriptions, OTC, herbals, cannabis, and nutritional supplements).: Yes The patient is not eligible for med reconciliation; the patient is in a emergent medical situation where delaying treatment would jeopardize the patients health.: No
--- NOTE | 2025-01-30 08:44 | ECG_ITS ---
Test Date: 2025-01-30 09:03:37 Measurements Intervals [place] Rate: 106 P: 0 NV: 0 QRS: -40 QRSD: 96 T: 3 QT: 347 QTc: 462 Interpretive Statements ATRIAL FIBRILLATION WITH RAPID VENTRICULAR RESPONSE LEFT AXIS DEVIATION POOR R WAVE PROGRESSION MINIMAL Q WAVES- HIGH LATERAL LEADS NONSPECIFIC ST & T-WAVE ABNORMALITY- ANT/INF LEADS BASELINE ARTIFACT- V5 ABNORMAL ECG No previous ECG available for comparison Electronically Signed On 01-30-2025 12:56:58 CDT by Aneesh Cooley D.O.
[2025-01-30] MEDS: ALPRAZolam (*CRX) 0.25 MG TABLET PO ×2 (08:45→21:12)
[2025-01-30] MEDS: ACETAMINOPHEN 325 MG TABLET 650 MG PO ×2 (08:45→21:11)
[2025-01-30 12:10] LABS: Glucose Point of Care 165 mg/dl (65-105)
--- NOTE | 2025-01-30 12:27 | PCOTNOTE ---
Attempted to see pt for OT evaluation however pt states she was up earlier and then had an afib episode and wants to remain in bed at this time. Will continue to follow.
--- NOTE | 2025-01-30 13:43 | PM.PNGS ---
Progress Note: A&P Assessment and Plan (1) Intra-abdominal abscess: Code(s): K65.1 - Peritoneal abscess Status: Acute Assessment and Plan: exam benign but WBC cont to be 20k, CT reviewed, will likely need reattempt at perc drainage on Saturday (pt ammendable), cont abx Subjective Subjective Date/Time Seen: 01/30/25 13:43 Interval history: feels ok, maria isabel diet, +diarrhea (improved), had A fib this am Review of Systems Review of Systems: All systems reviewed & are unremarkable except as noted in HPI and below Exam Const: General: cooperative, comfortable, no acute distress and ill appearing Resp: Auscultation: clear to auscultation bilaterally Cardio: Rate: regular rate Rhythm: regular rhythm GI: Inspection: normal to inspection and non-distended GI Palp: No abdominal tenderness and Yes Soft to palpation Objective Data Vital Signs Vital Signs: Vital Signs - 24 hr 01/29/25 14:00 01/29/25 16:00 01/29/25 21:26 Temperature 36.5 C 36.7 C Pulse Rate 76 65 67 Respiratory Rate 15 18 Blood Pressure 151/64 H 137/63 Pulse Oximetry 94 96 Oxygen Delivery 01/30/25 00:00 01/30/25 04:00 01/30/25 06:00 Temperature 36.4 C Pulse Rate 132 H 110 H 57 L Respiratory Rate 18 Blood Pressure 145/76 H Pulse Oximetry 94 Oxygen Delivery 01/30/25 08:01 01/30/25 08:01 01/30/25 08:28 Temperature Pulse Rate 127 H 128 H Respiratory Rate Blood Pressure Pulse Oximetry Oxygen Delivery Room Air 01/30/25 12:02 Temperature Pulse Rate 62 Respiratory Rate Blood Pressure Pulse Oximetry Oxygen Delivery Intake/Output Intake/Output: Intake & Output 01/27/25 01/28/25 01/29/25 01/30/25 23:59 23:59 23:59 23:59 Intake Total 1627 1460 1217 900 Output Total 850 1200 500 800 Balance 777 260 717 100 Meds/Results Medications: Active Medications Generic Name Dose Route Start Last Admin Trade Name Freq PRN Reason Stop Dose Admin Acetaminophen 650 mg 01/25/25 20:51 01/30/25 08:45 Acetaminophen 325 Mg Tablet PO 650 mg Q4H PRN Administration Headache Alprazolam 0.25 mg 01/29/25 08:48 01/30/25 08:45 Alprazolam (*Crx) 0.25 Mg Tablet PO 0.25 mg QID PRN Administration Anxiety Dextrose 12.5 gm 01/25/25 20:46 01/26/25 11:40 Dextrose 50% 25 Gm/50 Ml Syringe IV PUSH 12.5 gm PRN PRN Administration Hypoglycemia Protocol Fentanyl Citrate 25 mcg 01/25/25 20:51 01/30/25 04:22 Fentanyl Citrate Inj (*Crx) 100 Mcg/2 Ml Vial IV PUSH 25 mcg Q4H PRN Administration Pain Rated 6 or Greater Glucagon 1 mg 01/25/25 20:46 Glucagon For Inj 1 Mg Vial IM PRN PRN Hypoglycemia Protocol Glucose 15 gm 01/25/25 20:46 Glucose Oral Gel 15 Gm Of Glucse In 37.5 Gm Tube PO PRN PRN Hypoglycemia Protocol Dextrose 1,000 mls @ 100 mls/hr 01/25/25 20:46 Dextrose 5% 1,000 Ml IVPB PRN PRN Hypoglycemia Protocol Meropenem 1 gm in 100 mls @ 200 mls/hr 01/29/25 13:00 01/30/25 13:38 IVPB 200 mls/hr Q8HR KANDIS Administration Vancomycin HCl 1,500 mg in 500 mls @ 250 mls/hr 01/30/25 09:00 01/30/25 10:27 Vancomycin 1,500 Mg/Ns 500 Ml IVPB Infused Q12H KANDIS Infusion Insulin Aspart 4 - 8 units 01/26/25 08:00 01/30/25 12:21 Insulin Aspart (*Bkc) 100 Units/Ml SUB-Q Not Given TIDWM [facility] Protocol Insulin Glargine 10 units 01/29/25 21:00 01/29/25 21:26 Insulin Glargine (*Bkc) 100 Units/Ml SUB-Q 10 units HS KANDIS Administration Magnesium Oxide 400 mg 01/27/25 09:00 01/30/25 08:28 Magnesium Oxide 400 Mg Tablet PO 400 mg DAILY KANDIS Administration Metoprolol Succinate 50 mg 01/26/25 09:00 01/30/25 08:28 Metoprolol Succinate Ext Rel 50 Mg Tabcr PO 50 mg DAILY KANDIS Administration Ondansetron HCl 4 mg 01/25/25 20:51 Ondansetron Inj 4 Mg/2 Ml Vial IV PUSH Q6H PRN Nausea And Vomiting Potassium Chloride 40 meq 01/29/25 09:00 01/30/25 08:28 Potassium Chloride 20 Meq Er Tablet PO 40 meq DAILY KANDIS Administration Saccharomyces Boulardii 250 mg 01/29/25 17:00 01/30/25 13:39 Saccharomyces Boulardii 250 Mg Capsule PO 250 mg TID KANDIS Administration Simethicone 80 mg 01/27/25 16:11 01/30/25 01:50 Simethicone 80 Mg Tab.Chew PO 80 mg QID PRN Administration gas Tamsulosin HCl 0.4 mg 01/26/25 09:00 01/30/25 08:28 Tamsulosin Hcl 0.4 Mg Capsule PO 0.4 mg QAM KANDIS Administration Triamterene/Hydrochlorothiazide 1 tab 01/30/25 09:00 01/30/25 08:28 Triamterene 37.5 Mg/Hctz 25 Mg (Maxzide) Tablet PO 1 tab DAILY KANDIS Administration Verapamil HCl 240 mg 01/29/25 21:00 01/30/25 08:28 Verapamil Hcl Er 240 Mg Tablet.Er PO 240 mg Q12HR KANDIS Administration Radiology Results: ITS Impressions Pelvis CT 01/26/25 14:17 IMPRESSION: 1. No significant change in a bilobed gas and fluid containing abscess in the deep pelvis. Patient canceled the planned percutaneous abscess drainage catheter placement due to discomfort despite attempts at repositioning. Abdomen/Pelvis CT 01/29/25 09:28 Impression: Stable large bilobed multilocular abscess in the pelvis extensively involving the distal sigmoid colon and rectum. Stable wall thickening of the distal sigmoid colon and rectum. Small right pleural effusion with right basilar atelectatic change. Cholelithiasis. Nephrolithiasis bilaterally, as detailed above. Labs Labs: Laboratory Results - last 24 hr 01/29/25 01/29/25 01/29/25 13:26 16:50 19:52 WBC RBC Hgb Hct MCV MCH MCHC RDW Plt Count MPV Sodium Potassium Chloride Carbon Dioxide Anion Gap BUN Creatinine Estim Creat Clear Calc Estimated GFR Glucose POC Capillary Glucose 215 H 138 H Calcium Total Bilirubin AST ALT Alkaline Phosphatase Total Protein Albumin C. difficile (PCR) Negative 01/30/25 01/30/25 01/30/25 04:52 07:33 11:55 WBC 20.7 H RBC 3.84 L Hgb 9.1 L Hct 30.1 L MCV 78.4 L MCH 23.7 L MCHC 30.2 L RDW 16.1 H Plt Count 588 H MPV 9.3 Sodium 139 Potassium 3.2 L Chloride 103 Carbon Dioxide 27 Anion Gap 9 BUN 10 Creatinine 0.56 L Estim Creat Clear Calc 88 Estimated GFR > 60 Glucose 139 H POC Capillary Glucose 146 H 165 H Calcium 8.0 L Total Bilirubin 0.4 AST 22 ALT 14 Alkaline Phosphatase 129 H Total Protein 7.0 Albumin 2.6 L C. difficile (PCR)
[2025-01-30 16:52] LABS: Glucose Point of Care 157 mg/dl (65-105)
[2025-01-30 19:30] LABS: Glucose Point of Care 170 mg/dl (65-105)
[2025-01-30] MEDS: INSULIN GLARGINE (*BKC) 100 UNITS/ML 10 UNITS SUB-Q (21:10)
[2025-01-30] MEDS: VANCOMYCIN 1,500 MG/NS 500 ML 1,500 MG/500 ML BAG 125 MG IVPB (21:50)
[2025-01-31] VITALS (9 sets, daily range): BP systolic 120–123; BP diastolic 51–69; PULSE 58–73; RESP 16–20; TEMP 36.2–36.5; O2SAT 91–92
[2025-01-31] MEDS: MEROPENEM 1 GM/NS 100 ML 1 GM/100 ML BAG IVPB ×3 (05:43→21:24)
[2025-01-31 06:12] LABS: Hematocrit 28.8 % (37.0-47.0); Hemoglobin 8.6 g/dL (12.0-15.0); Mean Corpuscular HGB Conc 29.9 g/dl (32-36); Mean Corpuscular Volume 80.2 fl (80-100); Mean Platelet Volume 9.2 fl (7.4-10.4); Platelet Count Result 605 k/mm3 (150-375); Red Blood Count 3.59 M/mm3 (4.2-5.4); Red Cell Distribution Width 16.3 % (11.5-14.5); White Blood Count 21.3 K/mm3 (4.5-10.0)
[2025-01-31 06:31] LABS: Alanine Aminotransferase 14 U/L (6-35); Albumin Level 2.5 g/dL (3.5-5.1); Alkaline Phosphatase 119 U/L (38-126); Anion Gap 6 mmol/L (4-12); Aspartate Amino Transferase 17 U/L (14-36); Bilirubin,Total 0.4 mg/dL (0.2-1.3); Blood Urea Nitrogen 13 mg/dL (7-17); Calcium 7.9 mg/dL (8.4-10.2); Carbon Dioxide 29 mmol/L (22-30); Chloride 102 mmol/L (98-107); Estimated CRCL calculation 63 ml/min; Estimated Glomerular Filt Rate > 60; Glucose 132 mg/dL (65-110); Potassium 3.4 mmol/L (3.4-5.0); Sodium 137 mmol/L (137-145)
[2025-01-31 07:52] LABS: Glucose Point of Care 130 mg/dl (65-105)
--- NOTE | 2025-01-31 08:44 | P.PNIM_ITS ---
Progress Note: A&P Assessment and Plan (1) Sepsis: Qualifiers: Sepsis acute organ dysfunction status: without acute organ dysfunction Sepsis type: sepsis due to unspecified organism Qualified Code(s): A41.9 - S epsis, unspecified organism Code(s): A41.9 - Sepsis, unspecified organism Status: Acute Assessment and Plan: Patient met for SIRS on admission: HR elevated, WBC 21.8., lactic acidosis, and suspected source was an intra abdominal abscess, 30 mL/kg = 2.9L, given 2L bolus in ED was started on vancomycin and Zosyn on 01/25, surgery since his transitioned to meropenem and vancomycin blood cultures continue with NGTD post 48 hours but WBC continues to trend up, drain to be placed tomorrow Remains hemodynamically stable, C-Diff was negative * Serial CBC monitoring WBC bumped up 20.1 * narrow ABX pending cultures (2) Intra-abdominal abscess: Code(s): K65.1 - Peritoneal abscess Status: Acute Assessment and Plan: CT of the abdomen/pelvis showing Large abscess which is relatively unchanged from previous General surgery is following and drain to be placed 01/31/25, Antibiotics changed to meropenem and Vancomycin pending cultures, c-diff negative WBC continues to up trend, plan for drain placed on 02/01/2025. Tolerating diet no BM * Continue with vancomycin and meropenem pending placement of drain and cultures * Stool cultures pending * Monitor blood cultures NGTD * monitor and replenish electrolytes as need (3) Colitis: Code(s): K52.9 - Noninfective gastroenteritis and colitis, unspecified Status: Acute Assessment and Plan: SEE ABOVE (4) Hypokalemia: Code(s): E87.6 - Hypokalemia Status: Acute Assessment and Plan: * continue po supplements as needed, 3.4 today (5) Urinary retention: Code(s): R33.9 - Retention of urine, unspecified Status: Acute Assessment and Plan: * Espinoza catheter remains in place due to urinary retention * Will need voiding trial prior to discharge * Continue Flomax (6) Diabetes 1.5, managed as type 2: Code(s): E13.9 - Other specified diabetes mellitus without complications Status: Acute Assessment and Plan: * Blood sugar ranging 175-215 * Hgb A1C 9.6 on 01/26/25 * ACHS accu checks * Hold glimepiride and pioglitazone3 * High dose SSI ordered * Start Lantus 10 units tonight * Continue Diabetic diet/ Low residue diet * hypoglycemic protocol in place (7) Hypertension: Qualifiers: Hypertension type: unspecified Qualified Code(s): I10 - Essential (primary) hypertension Code(s): I10 - Essential (primary) hypertension Status: Acute Assessment and Plan: * Blood pressures ranging 116/47-151/64 * Continue Metoprolol, triamterene/HCTZ, Verapamil * monitor BP per unit protocol Plan Code status: Full code per patient DVT prophylaxis: Lovenox Stress ulcer prophylaxis: Protonix 40 daily PT/OT notes: Pending Disposition: Patient continues admission for sepsis secondary to intra- abdominal abscess with drain placement planned 02/01/2025, general surgery following appreciate all recommendations continue with IV antibiotics pending cultures. PT/ OT has been ordered pending any potential discharge needs Time Spent With Patient Time with patient: 15 - 25 minutes Subjective Date/time seen: 01/31/25 08:44 Interval history: Patient is a 74-year-old female admitted for further evaluation and treatment intra abdominal abscess she is planned to have a CT-guided drain placed upon admission she septic without septic shock general surgery consulted and following appreciate all recommendations. 01/31/2025: Her WBC bump there is plan for drain placement Saturday. Patient reports mild ABD discomfort no BM or gas and moderate back pain. Denied CP, SOB, fever or chills Review of Systems Review of Systems: All systems reviewed & are unremarkable except as noted in HPI and below Exam Narrative: General:No acute distress HEENT: Normocephalic. Atraumatic. Chest: Lungs are clear to auscultation bilaterally. No wheezes or crackles. CV:RRR, no murmur Abd: Abdomen was soft. LLQ tenderness. Nondistended. Positive bowel sounds. Neuro: Patient is alert and oriented x4. Objective Data Vital Signs Vital Signs: Vital Signs - 24 hr 01/30/25 12:02 01/30/25 14:00 01/30/25 16:01 Temperature 97.6 F Pulse Rate 62 68 81 Respiratory Rate 16 Blood Pressure 118/63 Pulse Oximetry 92 Oxygen Delivery 01/30/25 20:00 01/30/25 20:00 01/30/25 20:36 Temperature 97.0 F L Pulse Rate 95 71 95 Respiratory Rate 20 20 Blood Pressure 135/76 Pulse Oximetry 96 96 Oxygen Delivery Room Air 01/31/25 00:00 01/31/25 04:00 01/31/25 05:57 Temperature 97.7 F Pulse Rate 66 58 L 61 Respiratory Rate 18 Blood Pressure 120/69 Pulse Oximetry 91 Oxygen Delivery Intake/Output Intake/Output: Intake & Output 01/28/25 01/29/25 01/30/25 01/31/25 23:59 23:59 23:59 23:59 Intake Total 1460 1217 1100 600 Output Total 7333 013 8095 550 Balance 260 717 0 50 Meds/Results Medications: Active Medications Generic Name Dose Route Start Last Admin Trade Name Freq PRN Reason Stop Dose Admin Acetaminophen 650 mg 01/25/25 20:51 01/30/25 21:11 Acetaminophen 325 Mg Tablet PO 650 mg Q4H PRN Administration Headache Alprazolam 0.25 mg 01/29/25 08:48 01/30/25 21:12 Alprazolam (*Crx) 0.25 Mg Tablet PO 0.25 mg QID PRN Administration Anxiety Dextrose 12.5 gm 01/25/25 20:46 01/26/25 11:40 Dextrose 50% 25 Gm/50 Ml Syringe IV PUSH 12.5 gm PRN PRN Administration Hypoglycemia Protocol Fentanyl Citrate 25 mcg 01/25/25 20:51 01/30/25 04:22 Fentanyl Citrate Inj (*Crx) 100 Mcg/2 Ml Vial IV PUSH 25 mcg Q4H PRN Administration Pain Rated 6 or Greater Glucagon 1 mg 01/25/25 20:46 Glucagon For Inj 1 Mg Vial IM PRN PRN Hypoglycemia Protocol Glucose 15 gm 01/25/25 20:46 Glucose Oral Gel 15 Gm Of Glucse In 37.5 Gm Tube PO PRN PRN Hypoglycemia Protocol Dextrose 1,000 mls @ 100 mls/hr 01/25/25 20:46 Dextrose 5% 1,000 Ml IVPB PRN PRN Hypoglycemia Protocol Meropenem 1 gm in 100 mls @ 200 mls/hr 01/29/25 13:00 01/31/25 06:13 IVPB Infused Q8HR KANDIS Infusion Vancomycin HCl 1,500 mg in 500 mls @ 250 mls/hr 01/30/25 09:00 01/31/25 01:50 Vancomycin 1,500 Mg/Ns 500 Ml IVPB Infused Q12H KANDIS Infusion Insulin Aspart 4 - 8 units 01/26/25 08:00 01/30/25 17:02 Insulin Aspart (*Bkc) 100 Units/Ml SUB-Q Not Given TIDWM [facility] Protocol Insulin Glargine 10 units 01/29/25 21:00 01/30/25 21:10 Insulin Glargine (*Bkc) 100 Units/Ml SUB-Q 10 units HS [facility] Administration Magnesium Oxide 400 mg 01/27/25 09:00 01/30/25 08:28 Magnesium Oxide 400 Mg Tablet PO 400 mg DAILY KANDIS Administration Metoprolol Succinate 50 mg 01/26/25 09:00 01/30/25 08:28 Metoprolol Succinate Ext Rel 50 Mg Tabcr PO 50 mg DAILY [facility] Administration Ondansetron HCl 4 mg 01/25/25 20:51 Ondansetron Inj 4 Mg/2 Ml Vial IV PUSH Q6H PRN Nausea And Vomiting Potassium Chloride 40 meq 01/29/25 09:00 01/30/25 08:28 Potassium Chloride 20 Meq Er Tablet PO 40 meq DAILY [facility] Administration Saccharomyces Boulardii 250 mg 01/29/25 17:00 01/30/25 16:45 Saccharomyces Boulardii 250 Mg Capsule PO 250 mg TID KANDIS Administration Simethicone 80 mg 01/27/25 16:11 01/30/25 01:50 Simethicone 80 Mg Tab.Chew PO 80 mg QID PRN Administration gas Tamsulosin HCl 0.4 mg 01/26/25 09:00 01/30/25 08:28 Tamsulosin Hcl 0.4 Mg Capsule PO 0.4 mg QAM [facility] Administration Triamterene/Hydrochlorothiazide 1 tab 01/30/25 09:00 01/30/25 08:28 Triamterene 37.5 Mg/Hctz 25 Mg (Maxzide) Tablet PO 1 tab DAILY KANDIS Administration Verapamil HCl 240 mg 01/29/25 21:00 01/30/25 21:12 Verapamil Hcl Er 240 Mg Tablet.Er PO 240 mg Q12HR KANDIS Administration Radiology Results: ITS Impressions Pelvis CT 01/26/25 14:17 IMPRESSION: 1. No significant change in a bilobed gas and fluid containing abscess in the deep pelvis. Patient canceled the planned percutaneous abscess drainage catheter placement due to discomfort despite attempts at repositioning. Abdomen/Pelvis CT 01/29/25 09:28 Impression: Stable large bilobed multilocular abscess in the pelvis extensively involving the distal sigmoid colon and rectum. Stable wall thickening of the distal sigmoid colon and rectum. Small right pleural effusion with right basilar atelectatic change. Cholelithiasis. Nephrolithiasis bilaterally, as detailed above. Labs Labs: Laboratory Results - last 24 hr 01/30/25 01/30/25 01/30/25 11:55 16:43 19:10 WBC RBC Hgb Hct MCV MCH MCHC RDW Plt Count MPV Sodium Potassium Chloride Carbon Dioxide Anion Gap BUN Creatinine Estim Creat Clear Calc Estimated GFR Glucose POC Capillary Glucose 165 H 157 H 170 H Calcium Total Bilirubin AST ALT Alkaline Phosphatase Total Protein Albumin 01/31/25 01/31/25 05:36 07:33 WBC 21.3 H RBC 3.59 L Hgb 8.6 L Hct 28.8 L MCV 80.2 MCH 24.0 L MCHC 29.9 L RDW 16.3 H Plt Count 605 H MPV 9.2 Sodium 137 Potassium 3.4 Chloride 102 Carbon Dioxide 29 Anion Gap 6 BUN 13 Creatinine 0.81 Estim Creat Clear Calc 63 Estimated GFR > 60 Glucose 132 H POC Capillary Glucose 130 H Calcium 7.9 L Total Bilirubin 0.4 AST 17 ALT 14 Alkaline Phosphatase 119 Total Protein 6.0 L Albumin 2.5 L Quality VTE Prophylaxis VTE prophylaxis: mechanical ordered -Patient's previous records reviewed on admission -ER notes reviewed in detail on admission -discussed all findings and current treatment plan with patient/Family/POA -Consultations reviewed for recommendations -Patient's disposition for safe discharge discussed with telephonic case manager Dictation performed by [employer] direct speech recognition software, therefore job specification writer variants and typographical errors may occur. Hospitalist MIPS Advance Care Plan I have confirmed that the patient's Advanced Care Plan is present, code status is documented, or surrogate decision maker is listed in patient medical record.: Yes Medication Reconciliation I have utilized all available resources to obtain, update and review the patients current medications (includes all prescriptions, OTC, herbals, cannabis, and nutritional supplements).: Yes The patient is not eligible for med reconciliation; the patient is in a emergent medical situation where delaying treatment would jeopardize the patients health.: No
[2025-01-31 09:05] LABS: Vancomycin Trough 18.2 ug/mL (10.0-20.0)
--- NOTE | 2025-01-31 09:15 | PCPTNOTE ---
attempted PT eval ~ 845; pt in bed and refused- stated tired, will try later.
[2025-01-31] MEDS: VERAPAMIL HCL ER 240 MG TABLET.ER PO ×2 (09:19→21:23)
[2025-01-31] MEDS: POTASSIUM CHLORIDE 20 MEQ ER TABLET 40 MEQ PO (09:19)
[2025-01-31] MEDS: SACCHAROMYCES BOULARDII 250 MG CAPSULE PO ×3 (09:19→17:43)
[2025-01-31] MEDS: METOPROLOL SUCCINATE EXT REL 50 MG TABCR PO (09:20)
[2025-01-31] MEDS: TAMSULOSIN HCL 0.4 MG CAPSULE PO (09:20)
[2025-01-31] MEDS: TRIAMTERENE 37.5 MG/HCTZ 25 MG (MAXZIDE) TABLET 1 TAB PO (09:20)
[2025-01-31] MEDS: MAGNESIUM OXIDE 400 MG TABLET PO (09:20)
[2025-01-31] MEDS: ACETAMINOPHEN 325 MG TABLET 650 MG PO ×2 (10:04→21:23)
--- NOTE | 2025-01-31 10:30 | P.PNGS_ITS ---
Progress Note: A&P Assessment and Plan (1) Intra-abdominal abscess: Code(s): K65.1 - Peritoneal abscess Status: Acute Assessment and Plan: long discussion with patient and daughter regarding intra-abdominal abscess, with like to proceed with re-attempt percutaneous drainage of abscess, continue antibiotics Subjective Subjective Date/Time Seen: 01/31/25 10:30 Interval history: no acute issues, reports increased weakness, fatigue Review of Systems Review of Systems: All systems reviewed & are unremarkable except as noted in HPI and below Exam Const: General: cooperative, no acute distress and ill appearing Resp: Auscultation: diminished lung sounds Cardio: Rate: regular rate Rhythm: regular rhythm GI: Inspection: normal to inspection, non-distended and obesity GI Palp: Yes abdominal tenderness and Yes Soft to palpation Objective Data Vital Signs Vital Signs: Vital Signs - 24 hr 01/30/25 12:02 01/30/25 14:00 01/30/25 16:01 Temperature 36.4 C Pulse Rate 62 68 81 Respiratory Rate 16 Blood Pressure 118/63 Pulse Oximetry 92 Oxygen Delivery 01/30/25 20:00 01/30/25 20:00 01/30/25 20:36 Temperature 36.1 C L Pulse Rate 95 71 95 Respiratory Rate 20 20 Blood Pressure 135/76 Pulse Oximetry 96 96 Oxygen Delivery Room Air 01/31/25 00:00 01/31/25 04:00 01/31/25 05:57 Temperature 36.5 C Pulse Rate 66 58 L 61 Respiratory Rate 18 Blood Pressure 120/69 Pulse Oximetry 91 Oxygen Delivery Intake/Output Intake/Output: Intake & Output 01/28/25 01/29/25 01/30/25 01/31/25 23:59 23:59 23:59 23:59 Intake Total 1460 1217 1100 720 Output Total 6421 550 7484 550 Balance 260 717 0 170 Meds/Results Medications: Active Medications Generic Name Dose Route Start Last Admin Trade Name Freq PRN Reason Stop Dose Admin Acetaminophen 650 mg 01/25/25 20:51 01/31/25 10:04 Acetaminophen 325 Mg Tablet PO 650 mg Q4H PRN Administration Headache Alprazolam 0.25 mg 01/29/25 08:48 01/30/25 21:12 Alprazolam (*Crx) 0.25 Mg Tablet PO 0.25 mg QID PRN Administration Anxiety Dextrose 12.5 gm 01/25/25 20:46 01/26/25 11:40 Dextrose 50% 25 Gm/50 Ml Syringe IV PUSH 12.5 gm PRN PRN Administration Hypoglycemia Protocol Fentanyl Citrate 25 mcg 01/25/25 20:51 01/30/25 04:22 Fentanyl Citrate Inj (*Crx) 100 Mcg/2 Ml Vial IV PUSH 25 mcg Q4H PRN Administration Pain Rated 6 or Greater Glucagon 1 mg 01/25/25 20:46 Glucagon For Inj 1 Mg Vial IM PRN PRN Hypoglycemia Protocol Glucose 15 gm 01/25/25 20:46 Glucose Oral Gel 15 Gm Of Glucse In 37.5 Gm Tube PO PRN PRN Hypoglycemia Protocol Dextrose 1,000 mls @ 100 mls/hr 01/25/25 20:46 Dextrose 5% 1,000 Ml IVPB PRN PRN Hypoglycemia Protocol Meropenem 1 gm in 100 mls @ 200 mls/hr 01/29/25 13:00 01/31/25 06:13 IVPB Infused Q8HR KANDIS Infusion Vancomycin HCl 1,500 mg in 500 mls @ 250 mls/hr 01/31/25 15:00 Vancomycin 1,500 Mg/Ns 500 Ml IVPB Q18H KANDIS Insulin Aspart 4 - 8 units 01/26/25 08:00 01/31/25 09:16 Insulin Aspart (*Bkc) 100 Units/Ml SUB-Q Not Given TIDWM [facility] Protocol Insulin Glargine 10 units 01/29/25 21:00 01/30/25 21:10 Insulin Glargine (*Bkc) 100 Units/Ml SUB-Q 10 units HS KANDIS Administration Magnesium Oxide 400 mg 01/27/25 09:00 01/31/25 09:20 Magnesium Oxide 400 Mg Tablet PO 400 mg DAILY KANDIS Administration Metoprolol Succinate 50 mg 01/26/25 09:00 01/31/25 09:20 Metoprolol Succinate Ext Rel 50 Mg Tabcr PO 50 mg DAILY KANDIS Administration Ondansetron HCl 4 mg 01/25/25 20:51 Ondansetron Inj 4 Mg/2 Ml Vial IV PUSH Q6H PRN Nausea And Vomiting Potassium Chloride 40 meq 01/29/25 09:00 01/31/25 09:19 Potassium Chloride 20 Meq Er Tablet PO 40 meq DAILY KANDIS Administration Saccharomyces Boulardii 250 mg 01/29/25 17:00 01/31/25 09:19 Saccharomyces Boulardii 250 Mg Capsule PO 250 mg TID KANDIS Administration Simethicone 80 mg 01/27/25 16:11 01/30/25 01:50 Simethicone 80 Mg Tab.Chew PO 80 mg QID PRN Administration gas Tamsulosin HCl 0.4 mg 01/26/25 09:00 01/31/25 09:20 Tamsulosin Hcl 0.4 Mg Capsule PO 0.4 mg QAM KANDIS Administration Triamterene/Hydrochlorothiazide 1 tab 01/30/25 09:00 01/31/25 09:20 Triamterene 37.5 Mg/Hctz 25 Mg (Maxzide) Tablet PO 1 tab DAILY KANDIS Administration Verapamil HCl 240 mg 01/29/25 21:00 01/31/25 09:19 Verapamil Hcl Er 240 Mg Tablet.Er PO 240 mg Q12HR KANDIS Administration Radiology Results: ITS Impressions Pelvis CT 01/26/25 14:17 IMPRESSION: 1. No significant change in a bilobed gas and fluid containing abscess in the deep pelvis. Patient canceled the planned percutaneous abscess drainage catheter placement due to discomfort despite attempts at repositioning. Abdomen/Pelvis CT 01/29/25 09:28 Impression: Stable large bilobed multilocular abscess in the pelvis extensively involving the distal sigmoid colon and rectum. Stable wall thickening of the distal sigmoid colon and rectum. Small right pleural effusion with right basilar atelectatic change. Cholelithiasis. Nephrolithiasis bilaterally, as detailed above. Labs Labs: Laboratory Results - last 24 hr 01/30/25 01/30/25 01/30/25 11:55 16:43 19:10 WBC RBC Hgb Hct MCV MCH MCHC RDW Plt Count MPV Sodium Potassium Chloride Carbon Dioxide Anion Gap BUN Creatinine Estim Creat Clear Calc Estimated GFR Glucose POC Capillary Glucose 165 H 157 H 170 H Calcium Total Bilirubin AST ALT Alkaline Phosphatase Total Protein Albumin Vancomycin Trough 01/31/25 01/31/25 01/31/25 05:36 07:33 07:54 WBC 21.3 H RBC 3.59 L Hgb 8.6 L Hct 28.8 L MCV 80.2 MCH 24.0 L MCHC 29.9 L RDW 16.3 H Plt Count 605 H MPV 9.2 Sodium 137 Potassium 3.4 Chloride 102 Carbon Dioxide 29 Anion Gap 6 BUN 13 Creatinine 0.81 Estim Creat Clear Calc 63 Estimated GFR > 60 Glucose 132 H POC Capillary Glucose 130 H Calcium 7.9 L Total Bilirubin 0.4 AST 17 ALT 14 Alkaline Phosphatase 119 Total Protein 6.0 L Albumin 2.5 L Vancomycin Trough 18.2
[2025-01-31 11:55] LABS: Glucose Point of Care 153 mg/dl (65-105)
[2025-01-31] MEDS: VANCOMYCIN 1,500 MG/NS 500 ML 1,500 MG/500 ML BAG 250 MG IVPB (15:01)
[2025-01-31 17:02] LABS: Glucose Point of Care 156 mg/dl (65-105)
[2025-01-31] MEDS: INSULIN GLARGINE (*BKC) 100 UNITS/ML 10 UNITS SUB-Q (21:23)
[2025-01-31] MEDS: ONDANSETRON INJ 4 MG/2 ML VIAL IV PUSH (21:23)
[2025-01-31] MEDS: ALPRAZolam (*CRX) 0.25 MG TABLET PO (21:23)
[2025-01-31 21:36] LABS: Glucose Point of Care 132 mg/dl (65-105)
[2025-02-01] VITALS (10 sets, daily range): BP systolic 116–140; BP diastolic 51–65; PULSE 61–74; RESP 16–18; TEMP 35.9–36; O2SAT 85–99
[2025-02-01 06:15] LABS: Estimated CRCL calculation 64 ml/min; Estimated Glomerular Filt Rate > 60
[2025-02-01] MEDS: MEROPENEM 1 GM/NS 100 ML 1 GM/100 ML BAG IVPB ×3 (06:22→21:11)
[2025-02-01 08:31] LABS: Glucose Point of Care 131 mg/dl (65-105)
--- NOTE | 2025-02-01 08:52 | P.PNIM_ITS ---
Progress Note: A&P Assessment and Plan (1) Sepsis: Qualifiers: Sepsis acute organ dysfunction status: without acute organ dysfunction Sepsis type: sepsis due to unspecified organism Qualified Code(s): A41.9 - S epsis, unspecified organism Code(s): A41.9 - Sepsis, unspecified organism Status: Acute Assessment and Plan: Patient met for SIRS on admission: HR elevated, WBC 21.8., lactic acidosis, and suspected source was an intra abdominal abscess, 30 mL/kg = 2.9L, given 2L bolus in ED was started on vancomycin and Zosyn on 01/25, surgery since his transitioned to meropenem and vancomycin blood cultures continue with NGTD post 48 hours but WBC continues to trend up, drain to be placed tomorrow Remains hemodynamically stable, C-Diff was negative * Serial CBC monitoring WBC bumped up 20.1 * narrow ABX pending cultures documented 85% on ra early this am pt is requiring oxygen now- on 2 l -will xray chest to eval for pnemonia IS, up to the chiar tid/for meals (2) Intra-abdominal abscess: Code(s): K65.1 - Peritoneal abscess Status: Acute Assessment and Plan: CT of the abdomen/pelvis showing Large abscess which is relatively unchanged from previous General surgery is following and drain to be placed 01/31/25, Antibiotics changed to meropenem and Vancomycin pending cultures, c-diff negative WBC continues to up trend, plan for drain placed on 02/01/2025. Tolerating diet no BM * Continue with vancomycin and meropenem pending placement of drain and cultures * Stool cultures pending * Monitor blood cultures NGTD * monitor and replenish electrolytes as need pt is finally agreeable to place drain-scheduled for today at 1.40 pm (3) Colitis: Code(s): K52.9 - Noninfective gastroenteritis and colitis, unspecified Status: Acute Assessment and Plan: SEE ABOVE (4) Hypokalemia: Code(s): E87.6 - Hypokalemia Status: Acute Assessment and Plan: * continue po supplements as needed, 3.4 today (5) Urinary retention: Code(s): R33.9 - Retention of urine, unspecified Status: Acute Assessment and Plan: * Espinoza catheter remains in place due to urinary retention * Will need voiding trial prior to discharge * Continue Flomax (6) Diabetes 1.5, managed as type 2: Code(s): E13.9 - Other specified diabetes mellitus without complications Status: Acute Assessment and Plan: * Blood sugar ranging 175-215 * Hgb A1C 9.6 on 01/26/25 * ACHS accu checks * Hold glimepiride and pioglitazone3 * High dose SSI ordered * Start Lantus 10 units tonight * Continue Diabetic diet/ Low residue diet * hypoglycemic protocol in place reviewed and stable (7) Hypertension: Qualifiers: Hypertension type: unspecified Qualified Code(s): I10 - Essential (primary) hypertension Code(s): I10 - Essential (primary) hypertension Status: Acute Assessment and Plan: * Blood pressures ranging 116/47-151/64 * Continue Metoprolol, triamterene/HCTZ, Verapamil * monitor BP per unit protocol (8) Hypoxia: Code(s): R09.02 - Hypoxemia Status: Acute Assessment and Plan: 85% on ra early thi am placed on 2l o2 -will order chest xray to eval for pneumonia IS, ambulation Plan Code status: Full code per patient DVT prophylaxis: Lovenox Stress ulcer prophylaxis: Protonix 40 daily PT/OT notes: Pending Disposition: Patient continues admission for sepsis secondary to intra- abdominal abscess with drain placement planned 02/01/2025, general surgery following appreciate all recommendations continue with IV antibiotics pending cultures. PT/ OT has been ordered pending any potential discharge needs Time Spent With Patient Time with patient: 25 - 35 minutes Subjective Date/time seen: 02/01/25 08:52 Interval history: Patient is a 74-year-old female admitted for further evaluation and treatment intra abdominal abscess she is planned to have a CT-guided drain placed upon admission she septic without septic shock general surgery consulted and following appreciate all recommendations. 01/31/2025: Her WBC bump there is plan for drain placement Saturday. Patient reports mild ABD discomfort no BM or gas and moderate back pain. Denied CP, SOB, fever or chills 02/01 percutaneous drainage of abscess per surgery, continue antibiotics Review of Systems Review of Systems: All systems reviewed & are unremarkable except as noted in HPI and below Exam Narrative: General:No acute distress HEENT: Normocephalic. Atraumatic. Chest: Lungs are clear to auscultation bilaterally. No wheezes or crackles. diminished. on 2l now CV:RRR, no murmur Abd: Abdomen was soft. LLQ tenderness. Nondistended. Positive bowel sounds. Neuro: Patient is alert and oriented x4. Const: General: comfortable and no acute distress Other: , female, elderly, disheveled. Nontoxic appearance. HENMT: Face/Nose/Sinus: Normal nares present Mouth: Yes moist mucous membranes Eyes: General: appearance normal, both eyes and all related structures Sclera: sclerae normal Pupils: Equal, round and reactive pupils present EOM: EOMs intact bilaterally Resp: Effort & Inspection: normal respiratory effort Auscultation: clear to auscultation bilaterally Cardio: Rate: regular rate Rhythm: regular rhythm Other: S1-S2 present without murmur, rub, ectopy GI: Other: tender in the lower quadrants. hyperactive bowel sounds in the upper quadrants, normoactive in the lower. Nondistended, soft. Skin: General skin exam: normal color and no rashes or lesions noted Wounds: no wounds Neuro: Cranial nerves: Yes Equal, round and reactive pupils present Speech: normal speech Motor exam (neuro): 5/5 motor strength present throughout Sensory Exam: normal sensation Other: A&O x4 Extrem: General: normal to inspection Psych: Mental Status: mental status grossly normal Affect: normal affect Other: Malodorous, disheveled. Fair insight and judgment, pleasant. Objective Data Vital Signs Vital Signs: Vital Signs - 24 hr 01/31/25 09:38 01/31/25 12:00 01/31/25 16:00 Temperature Pulse Rate 68 68 Respiratory Rate Blood Pressure Pulse Oximetry Oxygen Delivery Room Air 01/31/25 17:16 01/31/25 20:00 01/31/25 20:00 Temperature 97.4 F L Pulse Rate 67 73 71 Respiratory Rate 20 16 Blood Pressure 120/52 L Pulse Oximetry 92 92 Oxygen Delivery Room Air 01/31/25 21:03 02/01/25 00:00 02/01/25 04:00 Temperature 97.2 F L Pulse Rate 73 72 61 Respiratory Rate 16 Blood Pressure 123/51 L Pulse Oximetry 92 Oxygen Delivery 02/01/25 05:27 02/01/25 08:00 02/01/25 08:00 Temperature 96.8 F L Pulse Rate 65 65 65 Respiratory Rate 18 18 Blood Pressure 116/51 L Pulse Oximetry 85 L 85 L Oxygen Delivery Room Air Intake/Output Intake/Output: Intake & Output 01/29/25 01/30/25 01/31/25 02/01/25 23:59 23:59 23:59 23:59 Intake Total 1217 1100 1170 100 Output Total 500 1100 1275 400 Balance 717 0 -105 -300 Meds/Results Medications: Active Medications Generic Name Dose Route Start Last Admin Trade Name Freq PRN Reason Stop Dose Admin Acetaminophen 650 mg 01/25/25 20:51 01/31/25 21:23 Acetaminophen 325 Mg Tablet PO 650 mg Q4H PRN Administration Headache Alprazolam 0.25 mg 01/29/25 08:48 01/31/25 21:23 Alprazolam (*Crx) 0.25 Mg Tablet PO 0.25 mg QID PRN Administration Anxiety Dextrose 12.5 gm 01/25/25 20:46 01/26/25 11:40 Dextrose 50% 25 Gm/50 Ml Syringe IV PUSH 12.5 gm PRN PRN Administration Hypoglycemia Protocol Fentanyl Citrate 25 mcg 01/25/25 20:51 01/30/25 04:22 Fentanyl Citrate Inj (*Crx) 100 Mcg/2 Ml Vial IV PUSH 25 mcg Q4H PRN Administration Pain Rated 6 or Greater Glucagon 1 mg 01/25/25 20:46 Glucagon For Inj 1 Mg Vial IM PRN PRN Hypoglycemia Protocol Glucose 15 gm 01/25/25 20:46 Glucose Oral Gel 15 Gm Of Glucse In 37.5 Gm Tube PO PRN PRN Hypoglycemia Protocol Dextrose 1,000 mls @ 100 mls/hr 01/25/25 20:46 Dextrose 5% 1,000 Ml IVPB PRN PRN Hypoglycemia Protocol Meropenem 1 gm in 100 mls @ 200 mls/hr 01/29/25 13:00 02/01/25 06:52 IVPB Infused Q8HR KANDIS Infusion Vancomycin HCl 1,500 mg in 500 mls @ 250 mls/hr 01/31/25 15:00 01/31/25 15:01 Vancomycin 1,500 Mg/Ns 500 Ml IVPB 250 mls/hr Q18H KANDIS Administration Insulin Aspart 4 - 8 units 01/26/25 08:00 01/31/25 17:04 Insulin Aspart (*Bkc) 100 Units/Ml SUB-Q Not Given TIDWM [facility] Protocol Insulin Glargine 10 units 01/29/25 21:00 01/31/25 21:23 Insulin Glargine (*Bkc) 100 Units/Ml SUB-Q 10 units HS KANDIS Administration Magnesium Oxide 400 mg 01/27/25 09:00 01/31/25 09:20 Magnesium Oxide 400 Mg Tablet PO 400 mg DAILY KANDIS Administration Metoprolol Succinate 50 mg 01/26/25 09:00 01/31/25 09:20 Metoprolol Succinate Ext Rel 50 Mg Tabcr PO 50 mg DAILY [facility] Administration Ondansetron HCl 4 mg 01/25/25 20:51 01/31/25 21:23 Ondansetron Inj 4 Mg/2 Ml Vial IV PUSH 4 mg Q6H PRN Administration Nausea And Vomiting Potassium Chloride 40 meq 01/29/25 09:00 01/31/25 09:19 Potassium Chloride 20 Meq Er Tablet PO 40 meq DAILY [facility] Administration Saccharomyces Boulardii 250 mg 01/29/25 17:00 01/31/25 17:43 Saccharomyces Boulardii 250 Mg Capsule PO 250 mg TID KANDIS Administration Simethicone 80 mg 01/27/25 16:11 01/30/25 01:50 Simethicone 80 Mg Tab.Chew PO 80 mg QID PRN Administration gas Tamsulosin HCl 0.4 mg 01/26/25 09:00 01/31/25 09:20 Tamsulosin Hcl 0.4 Mg Capsule PO 0.4 mg QAM KANDIS Administration Triamterene/Hydrochlorothiazide 1 tab 01/30/25 09:00 01/31/25 09:20 Triamterene 37.5 Mg/Hctz 25 Mg (Maxzide) Tablet PO 1 tab DAILY KANDIS Administration Verapamil HCl 240 mg 01/29/25 21:00 01/31/25 21:23 Verapamil Hcl Er 240 Mg Tablet.Er PO 240 mg Q12HR KANDIS Administration Radiology Results: ITS Impressions Pelvis CT 01/26/25 14:17 IMPRESSION: 1. No significant change in a bilobed gas and fluid containing abscess in the deep pelvis. Patient canceled the planned percutaneous abscess drainage catheter placement due to discomfort despite attempts at repositioning. Abdomen/Pelvis CT 01/29/25 09:28 Impression: Stable large bilobed multilocular abscess in the pelvis extensively involving the distal sigmoid colon and rectum. Stable wall thickening of the distal sigmoid colon and rectum. Small right pleural effusion with right basilar atelectatic change. Cholelithiasis. Nephrolithiasis bilaterally, as detailed above. Labs Labs: Laboratory Results - last 24 hr 01/31/25 01/31/25 01/31/25 07:54 11:49 16:45 Creatinine Estim Creat Clear Calc Estimated GFR POC Capillary Glucose 153 H 156 H Vancomycin Trough 18.2 01/31/25 02/01/25 02/01/25 19:54 05:40 08:28 Creatinine 0.80 Estim Creat Clear Calc 64 Estimated GFR > 60 POC Capillary Glucose 132 H 131 H Vancomycin Trough Quality VTE Prophylaxis VTE prophylaxis: mechanical ordered
[2025-02-01 09:32] LABS: Hematocrit 29.8 % (37.0-47.0); Hemoglobin 8.4 g/dL (12.0-15.0); Mean Corpuscular HGB Conc 28.2 g/dl (32-36); Mean Corpuscular Hemoglobin 23.1 pg (26-34); Mean Corpuscular Volume 81.9 fl (80-100); Mean Platelet Volume 9.3 fl (7.4-10.4); Platelet Count Result 608 k/mm3 (150-375); Red Blood Count 3.64 M/mm3 (4.2-5.4); Red Cell Distribution Width 16.5 % (11.5-14.5); White Blood Count 22.1 K/mm3 (4.5-10.0)
[2025-02-01 09:50] LABS: Alanine Aminotransferase 13 U/L (6-35); Albumin Level 2.5 g/dL (3.5-5.1); Alkaline Phosphatase 114 U/L (38-126); Anion Gap 6 mmol/L (4-12); Aspartate Amino Transferase 26 U/L (14-36); Bilirubin,Total 0.4 mg/dL (0.2-1.3); Blood Urea Nitrogen 13 mg/dL (7-17); Carbon Dioxide 29 mmol/L (22-30); Chloride 102 mmol/L (98-107); Estimated CRCL calculation 63 ml/min; Estimated Glomerular Filt Rate > 60; Glucose 125 mg/dL (65-110); Potassium 3.6 mmol/L (3.4-5.0); Sodium 137 mmol/L (137-145)
--- NOTE | 2025-02-01 11:34 | P.PNGS_ITS ---
Progress Note: A&P Assessment and Plan (1) Intra-abdominal abscess: Code(s): K65.1 - Peritoneal abscess Status: Acute Assessment and Plan: Proceed with re-attempt at percutaneous drainage of abscess in IR, continue IV antibiotics, may resume diet after drain is placed Plan I have discussed the patient's case and plan of care with Dr. Goins. Subjective Subjective Date/Time Seen: 02/01/25 11:34 Patient reports: no new complaints, flatus, bowel movement and afebrile Interval history: No acute changes overnight. Only complaints is rectal pain and pressure when sitting or straining to have a bowel movement. Exam Const: General: comfortable and no acute distress O rientation/consciousness: patient oriented x3 GI: Inspection: non-distended GI Palp: Yes Soft to palpation, No Tenderness to palpation present (GI), No Guarding due to palpation present (GI) and No Rebound tenderness present Auscultation: normal bowel sounds Objective Data Vital Signs Vital Signs: Vital Signs - 24 hr 01/31/25 12:00 01/31/25 16:00 01/31/25 17:16 Temperature 97.4 F L Pulse Rate 68 68 67 Respiratory Rate 20 Blood Pressure 120/52 L Pulse Oximetry 92 Oxygen Delivery 01/31/25 20:00 01/31/25 20:00 01/31/25 21:03 Temperature 97.2 F L Pulse Rate 73 71 73 Respiratory Rate 16 16 Blood Pressure 123/51 L Pulse Oximetry 92 92 Oxygen Delivery Room Air 02/01/25 00:00 02/01/25 04:00 02/01/25 05:27 Temperature 96.8 F L Pulse Rate 72 61 65 Respiratory Rate 18 Blood Pressure 116/51 L Pulse Oximetry 85 L Oxygen Delivery 02/01/25 08:00 02/01/25 08:00 Temperature Pulse Rate 65 65 Respiratory Rate 18 Blood Pressure Pulse Oximetry 85 L Oxygen Delivery Room Air Intake/Output Intake/Output: Intake & Output 01/29/25 01/30/25 01/31/25 02/01/25 23:59 23:59 23:59 23:59 Intake Total 1217 1100 1170 100 Output Total 500 1100 1275 400 Balance 717 0 -105 -300 Meds/Results Medications: Active Medications Generic Name Dose Route Start Last Admin Trade Name Freq PRN Reason Stop Dose Admin Acetaminophen 650 mg 01/25/25 20:51 01/31/25 21:23 Acetaminophen 325 Mg Tablet PO 650 mg Q4H PRN Administration Headache Alprazolam 0.25 mg 01/29/25 08:48 01/31/25 21:23 Alprazolam (*Crx) 0.25 Mg Tablet PO 0.25 mg QID PRN Administration Anxiety Dextrose 12.5 gm 01/25/25 20:46 01/26/25 11:40 Dextrose 50% 25 Gm/50 Ml Syringe IV PUSH 12.5 gm PRN PRN Administration Hypoglycemia Protocol Fentanyl Citrate 25 mcg 01/25/25 20:51 01/30/25 04:22 Fentanyl Citrate Inj (*Crx) 100 Mcg/2 Ml Vial IV PUSH 25 mcg Q4H PRN Administration Pain Rated 6 or Greater Glucagon 1 mg 01/25/25 20:46 Glucagon For Inj 1 Mg Vial IM PRN PRN Hypoglycemia Protocol Glucose 15 gm 01/25/25 20:46 Glucose Oral Gel 15 Gm Of Glucse In 37.5 Gm Tube PO PRN PRN Hypoglycemia Protocol Dextrose 1,000 mls @ 100 mls/hr 01/25/25 20:46 Dextrose 5% 1,000 Ml IVPB PRN PRN Hypoglycemia Protocol Meropenem 1 gm in 100 mls @ 200 mls/hr 01/29/25 13:00 02/01/25 06:52 IVPB Infused Q8HR KANDIS Infusion Vancomycin HCl 1,500 mg in 500 mls @ 250 mls/hr 01/31/25 15:00 01/31/25 15:01 Vancomycin 1,500 Mg/Ns 500 Ml IVPB 250 mls/hr Q18H KADNIS Administration Insulin Aspart 4 - 8 units 01/26/25 08:00 01/31/25 17:04 Insulin Aspart (*Bkc) 100 Units/Ml SUB-Q Not Given TIDWM [facility] Protocol Insulin Glargine 10 units 01/29/25 21:00 01/31/25 21:23 Insulin Glargine (*Bkc) 100 Units/Ml SUB-Q 10 units HS KANDIS Administration Magnesium Oxide 400 mg 01/27/25 09:00 01/31/25 09:20 Magnesium Oxide 400 Mg Tablet PO 400 mg DAILY KANDIS Administration Metoprolol Succinate 50 mg 01/26/25 09:00 01/31/25 09:20 Metoprolol Succinate Ext Rel 50 Mg Tabcr PO 50 mg DAILY KANDIS Administration Ondansetron HCl 4 mg 01/25/25 20:51 01/31/25 21:23 Ondansetron Inj 4 Mg/2 Ml Vial IV PUSH 4 mg Q6H PRN Administration Nausea And Vomiting Potassium Chloride 40 meq 01/29/25 09:00 01/31/25 09:19 Potassium Chloride 20 Meq Er Tablet PO 40 meq DAILY KANDIS Administration Saccharomyces Boulardii 250 mg 01/29/25 17:00 01/31/25 17:43 Saccharomyces Boulardii 250 Mg Capsule PO 250 mg TID KANDIS Administration Simethicone 80 mg 01/27/25 16:11 01/30/25 01:50 Simethicone 80 Mg Tab.Chew PO 80 mg QID PRN Administration gas Tamsulosin HCl 0.4 mg 01/26/25 09:00 01/31/25 09:20 Tamsulosin Hcl 0.4 Mg Capsule PO 0.4 mg QAM KANDIS Administration Triamterene/Hydrochlorothiazide 1 tab 01/30/25 09:00 01/31/25 09:20 Triamterene 37.5 Mg/Hctz 25 Mg (Maxzide) Tablet PO 1 tab DAILY KANDIS Administration Verapamil HCl 240 mg 01/29/25 21:00 01/31/25 21:23 Verapamil Hcl Er 240 Mg Tablet.Er PO 240 mg Q12HR KANDIS Administration Radiology Results: ITS Impressions Pelvis CT 01/26/25 14:17 IMPRESSION: 1. No significant change in a bilobed gas and fluid containing abscess in the deep pelvis. Patient canceled the planned percutaneous abscess drainage catheter placement due to discomfort despite attempts at repositioning. Abdomen/Pelvis CT 01/29/25 09:28 Impression: Stable large bilobed multilocular abscess in the pelvis extensively involving the distal sigmoid colon and rectum. Stable wall thickening of the distal sigmoid colon and rectum. Small right pleural effusion with right basilar atelectatic change. Cholelithiasis. Nephrolithiasis bilaterally, as detailed above. Labs Labs: Laboratory Results - last 24 hr 01/31/25 01/31/25 01/31/25 11:49 16:45 19:54 WBC RBC Hgb Hct MCV MCH MCHC RDW Plt Count MPV Sodium Potassium Chloride Carbon Dioxide Anion Gap BUN Creatinine Estim Creat Clear Calc Estimated GFR Glucose POC Capillary Glucose 153 H 156 H 132 H Calcium Total Bilirubin AST ALT Alkaline Phosphatase Total Protein Albumin 02/01/25 02/01/25 02/01/25 05:40 05:40 05:40 WBC 22.1 H RBC 3.64 L Hgb 8.4 L Hct 29.8 L MCV 81.9 MCH 23.1 L MCHC 28.2 L RDW 16.5 H Plt Count 608 H MPV 9.3 Sodium 137 Potassium 3.6 Chloride 102 Carbon Dioxide 29 Anion Gap 6 BUN 13 Creatinine 0.80 0.81 Estim Creat Clear Calc 64 63 Estimated GFR > 60 Glucose POC Capillary Glucose Calcium Total Bilirubin AST ALT Alkaline Phosphatase Total Protein Albumin 02/01/25 02/01/25 05:40 08:28 WBC RBC Hgb Hct MCV MCH MCHC RDW Plt Count MPV Sodium Potassium Chloride Carbon Dioxide Anion Gap BUN Creatinine Estim Creat Clear Calc Estimated GFR > 60 Glucose 125 H POC Capillary Glucose 131 H Calcium 8.0 L Total Bilirubin 0.4 AST 26 ALT 13 Alkaline Phosphatase 114 Total Protein 7.0 Albumin 2.5 L
[2025-02-01 11:37] LABS: Glucose Point of Care 109 mg/dl (65-105)
[2025-02-01] MEDS: TAMSULOSIN HCL 0.4 MG CAPSULE PO (12:15)
[2025-02-01] MEDS: SACCHAROMYCES BOULARDII 250 MG CAPSULE PO ×3 (12:15→13:15)
[2025-02-01] MEDS: MAGNESIUM OXIDE 400 MG TABLET PO (12:15)
[2025-02-01] MEDS: TRIAMTERENE 37.5 MG/HCTZ 25 MG (MAXZIDE) TABLET 1 TAB PO (12:15)
[2025-02-01] MEDS: METOPROLOL SUCCINATE EXT REL 50 MG TABCR PO (12:15)
[2025-02-01] MEDS: POTASSIUM CHLORIDE 20 MEQ ER TABLET 40 MEQ PO (12:15)
[2025-02-01] MEDS: VERAPAMIL HCL ER 240 MG TABLET.ER PO ×2 (12:16→21:11)
[2025-02-01] MEDS: VANCOMYCIN 1,500 MG/NS 500 ML 1,500 MG/500 ML BAG 250 MG IVPB (12:16)
[2025-02-01] MEDS: SIMETHICONE 80 MG TAB.CHEW PO (13:16)
[2025-02-01] MEDS: fentaNYL CITRATE INJ (*CRX) 100 MCG/2 ML VIAL 25 MCG IV PUSH (13:16)
[2025-02-01] MEDS: ALPRAZolam (*CRX) 0.25 MG TABLET PO ×2 (13:17→21:11)
[2025-02-01 16:19] LABS: Glucose Point of Care 134 mg/dl (65-105)
[2025-02-01] MEDS: ACETAMINOPHEN 325 MG TABLET 650 MG PO (19:04)
[2025-02-01 20:42] LABS: Glucose Point of Care 108 mg/dl (65-105)
[2025-02-01] MEDS: INSULIN GLARGINE (*BKC) 100 UNITS/ML 10 UNITS SUB-Q (21:11)
[2025-02-02] VITALS (60 sets, daily range): BP systolic 48–140; BP diastolic 29–73; PULSE 60–124; RESP 14–30; TEMP 35.7–38.8; O2SAT 83–100; BMI 35.2
[2025-02-02] MEDS: fentaNYL CITRATE INJ (*CRX) 100 MCG/2 ML VIAL 25 MCG IV PUSH (01:12)
[2025-02-02] MEDS: VANCOMYCIN 1,500 MG/NS 500 ML 1,500 MG/500 ML BAG 180 MG IVPB (02:51)
[2025-02-02] MEDS: MEROPENEM 1 GM/NS 100 ML 1 GM/100 ML BAG IVPB ×3 (05:57→22:30)
[2025-02-02 06:36] LABS: Hematocrit 30.8 % (37.0-47.0); Mean Corpuscular HGB Conc 29.2 g/dl (32-36); Mean Corpuscular Hemoglobin 23.4 pg (26-34); Mean Platelet Volume 8.9 fl (7.4-10.4); Platelet Count Result 667 k/mm3 (150-375); Red Blood Count 3.85 M/mm3 (4.2-5.4); Red Cell Distribution Width 16.4 % (11.5-14.5); White Blood Count 24.5 K/mm3 (4.5-10.0)
[2025-02-02 06:43] LABS: Alanine Aminotransferase 11 U/L (6-35); Albumin Level 2.5 g/dL (3.5-5.1); Alkaline Phosphatase 113 U/L (38-126); Anion Gap 2 mmol/L (4-12); Aspartate Amino Transferase 25 U/L (14-36); Bilirubin,Total 0.4 mg/dL (0.2-1.3); Blood Urea Nitrogen 12 mg/dL (7-17); Calcium 7.8 mg/dL (8.4-10.2); Carbon Dioxide 34 mmol/L (22-30); Chloride 100 mmol/L (98-107); Estimated CRCL calculation 62 ml/min; Estimated Glomerular Filt Rate > 60; Glucose 123 mg/dL (65-110); Potassium 3.9 mmol/L (3.4-5.0); Sodium 136 mmol/L (137-145)
[2025-02-02 07:44] LABS: Glucose Point of Care 124 mg/dl (65-105)
[2025-02-02] MEDS: SIMETHICONE 80 MG TAB.CHEW PO (10:05)
[2025-02-02] MEDS: ALPRAZolam (*CRX) 0.25 MG TABLET PO (10:05)
[2025-02-02] MEDS: TRIAMTERENE 37.5 MG/HCTZ 25 MG (MAXZIDE) TABLET 1 TAB PO (10:05)
[2025-02-02] MEDS: TAMSULOSIN HCL 0.4 MG CAPSULE PO (10:05)
[2025-02-02] MEDS: VERAPAMIL HCL ER 240 MG TABLET.ER PO (10:05)
[2025-02-02] MEDS: POTASSIUM CHLORIDE 20 MEQ ER TABLET 40 MEQ PO (10:05)
[2025-02-02] MEDS: SACCHAROMYCES BOULARDII 250 MG CAPSULE PO (10:06)
[2025-02-02] MEDS: MAGNESIUM OXIDE 400 MG TABLET PO (10:06)
[2025-02-02] MEDS: METOPROLOL SUCCINATE EXT REL 50 MG TABCR PO (10:06)
[2025-02-02 10:53] LABS: Iron 22 ug/dL (37-170)
[2025-02-02] MEDS: fentaNYL CITRATE INJ (*CRX) 100 MCG/2 ML VIAL 50 MCG IV PUSH ×2 (10:59→11:21)
[2025-02-02] MEDS: MIDAZOLAM HCL (*CRX) 2 MG/2 ML VIAL 1 MG IV PUSH ×2 (10:59→11:21)
[2025-02-02 11:03] LABS: Percent Iron Saturation 11 % (20-50)
--- NOTE | 2025-02-02 12:13 | ECG_ITS ---
Test Date: 2025-02-02 12:13:21 Measurements Intervals [place] Rate: 111 P: 0 [place]: 0 QRS: -35 QRSD: 140 T: 60 QT: 290 QTc: 395 Interpretive Statements ATRIAL FLUTTER WITH RAPID VENTRICULAR RESPONSE WITH ABERRANT CONDUCTION OR VENTRICULAR PREMATURE COMPLEXES MARKED LEFT AXIS DEVIATION [QRS AXIS < -30] RIGHT BUNDLE BRANCH BLOCK [120+ ms QRS DURATION, UPRIGHT V1, 40+ ms S IN I/aVL/V4/V5/V6] SEPTAL MYOCARDIAL INFARCTION , OF INDETERMINATE AGE [40+ ms Q WAVE IN V1/V2] Compared to ECG 01/30/2025 09:03:37 Ventricular premature complex(es) now present Aberrant conduction of supraventricular beat(s) now present Right bundle-branch block now present Myocardial infarct finding now present Poor R-wave progression no longer present Electronically Signed On 02-05-2025 18:53:52 CDT by Rachel Arvizu
--- NOTE | 2025-02-02 12:30 | SUR.OPER ---
Patient was in procedure for abdominal drain with CT placement with moderate sedation with Dr. Esquivel. During the procedure patient became unresponsive with no pulse. CPR was started and code Blue was called overhead. Code team arrived and resuscitation effects were continued. See code sheet for reference. ROSC was achieved and patient was transferred to the ICU.
--- NOTE | 2025-02-02 12:35 | PC.NURSE ---
Pt. arrived to ICU [address]
[2025-02-02] MEDS: MIDAZOLAM HCL (*CRX) 2 MG/2 ML VIAL IV PUSH ×3 (12:43→14:47)
--- NOTE | 2025-02-02 12:50 | PM.OP ---
Procedure Note - Brief Procedure Note - Brief Date of procedure: 02/02/25 Pelvic abscess Post-op diagnosis: Other (Pelvic abscess involving the posterior wall of the bladder, the fundus of the uteru and the distal rectosigmoid colon, extending into the pouch of Rc.) Procedure performed: CT guided abscess catheter placement with hydrodissection of the posterior wall of the bladder. Surgeon: Laura Esquivel MD Anesthesia: other (Moderate sedation - 100 mcg of Fentanyl and 2mg of Versed total; with 15mL of lidocaine locally) Findings: Sterile technique CT guidance. Pt refused to lay prone or supine. Most comfortable with her right side down (lateral decubitus) Time out performed as per protocol Modified Seldinger technique utilized to place a 10Fr pigtail catheter. Once approximately 12cc of grossly purulent fluid was evacuated, the patient became unresponsive. Pt became pulseless and dusky, and a code blue was initiated. The catheter was placed to accordion suction, while rapid CPR was begun. Description of procedure: as above Estimated blood loss (mL): 5 Drains: Yes (10 Fr pigtail catheter) Complications: Other complications (Once approximately 12cc of grossly purulent fluid was evacuated, the patient became unresponsive. Pt became pulseless and dusky, and a code blue was initiated. The catheter was placed to accordion suction, while rapid CPR was begun.) Condition: Critical (transferred to ICU)
[2025-02-02] MEDS: MIDAZOLAM HCL (*CRX) 2 MG/2 ML VIAL (12:54)
[2025-02-02] MEDS: fentaNYL CITRATE INJ (*CRX) 100 MCG/2 ML VIAL IV PUSH ×2 (12:54→14:47)
[2025-02-02] MEDS: MIDAZOLAM 100MG/NS 100ML(*CRX) 100 MG/100 ML BAG IV CONT (12:55)
[2025-02-02] MEDS: FENTANYL 2,500MCG/NS250ML(*CRX 2,500 MCG/250 ML BAG IV CONT (12:56)
--- NOTE | 2025-02-02 13:16 | ECG_ITS ---
Test Date: 2025-02-02 12:40:57 Measurements Intervals [place] Rate: 140 P: 263 HI: 130 QRS: -65 QRSD: 148 T: 0 QT: 269 QTc: 411 Interpretive Statements ATRIAL FIBRILLATION WITH RAPID VENTRICULAR RESPONSE RIGHT BUNDLE BRANCH BLOCK LEFT ANTERIOR FASCICULAR BLOCK BASELINE ARTIFACT- I, II, III, AVR, AVL, AVF, V1-V6 ABNORMAL ECG Compared to ECG 01/30/2025 09:03:37 HEART RATE HAS INCREASED Electronically Signed On 02-02-2025 14:03:32 CDT by Aneesh Cooley D.O.
--- NOTE | 2025-02-02 13:20 | ECG_ITS ---
Test Date: 2025-02-02 13:22:37 Measurements Intervals [place] Rate: 104 P: 86 MA: 151 QRS: -53 QRSD: 142 T: -1 QT: 361 QTc: 475 Interpretive Statements SINUS TACHYCARDIA RIGHT BUNDLE BRANCH BLOCK LEFT ANTERIOR FASCICULAR BLOCK ABNORMAL ECG Compared to ECG 02/02/2025 12:40:57 HEART RATE HAS DECREASED Electronically Signed On 02-02-2025 14:03:57 CDT by Aneesh Cooley D.O.
--- NOTE | 2025-02-02 13:34 | WPDCNINT ---
Assessment and Plan Assessment and plan (1) Cardiac arrest: Code(s): I46.9 - Cardiac arrest, cause unspecified Status: Acute Assessment and Plan: Patient had a cardiac arrest after placement of a percutaneous drain in the pelvic abscess. Could be related to vasovagal, translocation, hypoxia but patient was laying flat, hypovolemia, acidosis -successful ROSC x2, intubated in the CT scan suite by ER physician -patient did acknowledge in follow commands for the bedside RN, so not a candidate for targeted temperature management -will continue to treat underlying cause (2) Septic shock: Code(s): A41.9 - Sepsis, unspecified organism; R65.21 - Severe sepsis with septic shock Status: Acute Assessment and Plan: 02/01:In the ICU patient dropped her blood pressures -patient was fluid-resuscitated with 1.5 L IV fluid bolus -will given additional 500 mL of IV fluid bolus -after which will give albumin for intravascular volume expansion -will check volume responsiveness with cheetah/NICOM -continue meropenem, vancomycin for the abscesses -continue doxycycline for possible pneumonia which was started when she was on the medical floor to cover atypicals -started on Levophed, will maintain MAP > 65 mmHg at all times for adequate end organ perfusion -add vasopressin -01/25: Blood cultures negative x2 -02/01: repeat blood cultures -the start patient on stress dose steroids (3) Acute respiratory failure: Code(s): J96.00 - Acute respiratory failure, unspecified whether with hypoxia or hypercapnia Status: Acute Assessment and Plan: Acute respiratory failure likely related to cardiac arrest possible from septic shock, infection, hypovolemia, translocation of bacteria, acidosis, hypoxia -patient intubated in the CT scan suite by ER physician -currently on CMV mode of ventilation, peep of 8, 100% FiO2 -chest x-ray and ABGs reviewed -continue Xopenex and Atrovent nebulizer -sedated with fentanyl and Versed infusion, maintain RASS of 0 to -2. Daily SBT and SAT (4) Intra-abdominal abscess: Code(s): K65.1 - Peritoneal abscess Status: Acute Assessment and Plan: Intra-abdominal abscess, status post percutaneous IR drain placement on 02/01/2025 -draining purulent material, has been sent for culture -surgery is following the patient -continue antibiotics as above (5) Diabetes 1.5, managed as type 2: Code(s): E13.9 - Other specified diabetes mellitus without complications Status: Acute Assessment and Plan: Continue Accu-Cheks and sliding scale insulin -currently NPO so hold Lantus for now (6) Hypertension: Qualifiers: Hypertension type: unspecified Qualified Code(s): I10 - Essential (primary) hypertension Code(s): I10 - Essential (primary) hypertension Status: Acute Assessment and Plan: Hold all antihypertensives, as patient is on pressors Plan DVT prophylaxis: Lovenox Stress ulcer prophylaxis: Protonix Nutrition: NPO Code Status: Full code Critical Care Time Spent: 81 minutes Discussed with patient daughter Leslye, and updated with patient's condition and plan of care. I answered all her questions. Due to a high probability of clinically significant, life threatening deterioration, the patient required my highest level of preparedness to intervene emergently and I personally spent this critical care time directly and personally managing the patient. This critical care time included obtaining a history; examining the patient; pulse oximetry; ordering and review of studies; arranging urgent treatment with development of a management plan; evaluation of patient's response to treatment; frequent reassessment; and discussions with other providers. It was exclusive of separately billable procedures and treating other patients and teaching time. Please see Assessment and Plan section and the rest of the note for further information on patient assessment and treatment This dictation may have been done utilizing a voice recognition system. Attempts have been made to correct errors. However, there may be uncorrected grammatical, spelling, and recognitions errors present. Print Operator Consult Note Consult date: 02/02/25 Reason for consult: Cardiac arrest, acute respiratory failure, abdominal abscess, sepsis HPI: Bharti Neal is a 74 year old female with past medical history of diabetes and hypertension presented to the ED on 01/25/2025 with complains of diarrhea and weakness. She was admitted for colitis, intra-abdominal abscess as seen on CT scan of the abdomen pelvis. Patient was treated with IV fluids, antibiotics. Surgery did evaluate the patient and the patient was recommended percutaneous drainage of the intra-abdominal peritoneal abscess, patient refused as she was unable to tolerate prone positioning from percutaneous drainage. During hospital stay patient was on antibiotics, but leukocytosis continued to worsen. Repeat CT scan on 01/29 continue to show stable large bilobed multi locular abscess in the pelvis extensively involving the distal sigmoid colon and rectum. Surgery continue discuss with the patient and the family they were amenable to percutaneous drainage. 02/02/2025: Patient was in the CT scan getting her percutaneous drainage of the pelvic abscess which she had a cardiac arrest and a code blue was called. Patient did get ROSC after 16 minute the 1st timey and she coded again for approximately 5 minutes. Patient was following commands post ROSC. Patient was intubated the CT scan suite, transferred to the ICU for further management. In the CT suite patient was able to get upper kidneys drainage prior to the code blue. The drainage is purulent and foul-smelling. In the ICU patient emergent central line was inserted as patient lost her peripheral IV. Remains intubated on CMV mode of ventilation, peep of 8, 100% FiO2. Sedated with fentanyl Versed infusion. Patient does move all extremities spontaneously. Breathing with the ventilator. Not requiring any pressors at this time CT abdomen/pelvis, 01/25/2025:Circumferential wall thickening of the distal sigmoid colon/proximal rectum. Correlate for infectious/inflammatory colitis versus possibility of underlying neoplasm.2 adjacent versus bilobed abscesses abutting/adjacent to the distal sigmoid colon/rectum, as detailed above. Contained bowel perforation not completely excluded, though no distant free air evident.Cholelithiasis and gallbladder sludge. Staghorn right renal calculus, as above. No hydronephrosis. 4.3 cm right adrenal myelolipoma. CT abdomen pelvis 01/29/2025: Stable large bilobed multilocular abscess in the pelvis extensively involving the distal sigmoid colon and rectum. Stable wall thickening of the distal sigmoid colon and rectum.Small right pleural effusion with right basilar atelectatic change. Cholelithiasis.Nephrolithiasis bilaterally, as detailed above. Review of Systems Review of Systems: ROS unobtainable: Yes unobtainable due to endotracheal tube, unobtainable due to medical condition and unobtainable due to mental status PMF Past Medical History Medical History Diabetes 1.5, managed as type 2 Hypertension Surgical History Surgical History No history of previous surgery Family History Family History Mother Heart attack Diabetes mellitus Type II DM Father , heart attack Heart attack Heart disease Sibling , gynecological cancer (lining of uterus per patient) No problems noted. Social History Social History Smoking status: Never smoker Second hand tobacco smoke exposure: No Alcohol intake: never Alcohol use details: occasional, [id number] Substance use: never Substance use type: does not use Do You Feel Safe in your Home?: Yes Lack of Transportation: No Lack of Food: Never True Current Housing: I Have Housing Concerned About Future Housing: No Difficulty Paying Gas/Electric Bills: No Difficulty Paying for Meds: No Currently Unemployed: No Education: Bachelor's Degree Difficulty w/ Childcare or Family Care: No Spiritual care concerns: No Meds Home Medications and Allergies Home Medications ?Medication ?Instructions ?Recorded ?Confirmed ?Type triamterene 37.5 1 cap PO DAILY 09/22/19 01/25/25 History mg-hydrochlorothiazide 25 mg capsule verapamil 240 mg tablet,extended 240 mg PO BID 09/22/19 01/25/25 History release lancets 30 gauge (BD Microtainer #200 ea 11/04/24 01/25/25 Rx Lancet) blood sugar diagnostic (Blood #100 ea 11/23/24 01/25/25 Rx Glucose Test strips) blood-glucose meter #1 ea 11/23/24 01/25/25 Rx pioglitazone 45 mg tablet See Rx Instructions .Route 11/24/24 01/25/25 Rx .COMPLEX #90 tabs glimepiride 4 mg tablet 4 mg PO BID #180 tabs 12/17/24 01/25/25 Rx metoprolol succinate 50 mg 50 mg PO DAILY #180 tabs 12/17/24 01/25/25 Rx tablet,extended release 24 hr Allergies Allergy/AdvReac Type Severity Reaction Status Date / Time ciprofloxacin (From Cipro) Allergy Rash Verified 01/25/25 10:42 codeine Allergy Rash Verified 01/25/25 10:42 ibuprofen (From Advil) AdvReac Other Verified 01/25/25 10:42 naproxen (From Aleve) AdvReac Other Verified 01/25/25 10:42 Vital Signs Vital Signs - 24 hr 02/01/25 14:00 02/01/25 16:00 02/01/25 20:00 Temperature 96.8 F L Pulse Rate 68 72 74 Respiratory Rate 18 16 Blood Pressure 140/65 Pulse Oximetry 99 94 Oxygen Delivery Room Air Oxygen Flow Rate Fraction of Inspired Oxygen 02/01/25 20:00 02/01/25 20:05 02/02/25 00:00 Temperature 96.7 F L Pulse Rate 73 74 66 Respiratory Rate 16 Blood Pressure 132/54 L Pulse Oximetry 94 Oxygen Delivery Oxygen Flow Rate Fraction of Inspired Oxygen 02/02/25 04:00 02/02/25 04:35 02/02/25 08:00 Temperature 96.2 F L Pulse Rate 72 74 Respiratory Rate 16 Blood Pressure 124/53 L Pulse Oximetry 83 L 92 Oxygen Delivery Nasal Cannula Oxygen Flow Rate 2 Fraction of Inspired Oxygen 02/02/25 08:00 02/02/25 10:58 02/02/25 11:04 Temperature Pulse Rate 62 72 70 Respiratory Rate 17 16 Blood Pressure 119/46 L 123/50 L Pulse Oximetry 100 98 Oxygen Delivery Nasal Cannula Nasal Cannula Oxygen Flow Rate 3 3 Fraction of Inspired Oxygen 02/02/25 11:09 02/02/25 11:14 02/02/25 11:19 Temperature Pulse Rate 69 66 64 Respiratory Rate 17 16 15 Blood Pressure 134/57 L 124/55 L 121/63 Pulse Oximetry 100 99 94 Oxygen Delivery Nasal Cannula Nasal Cannula Nasal Cannula Oxygen Flow Rate 3 3 3 Fraction of Inspired Oxygen 02/02/25 11:24 02/02/25 11:29 02/02/25 11:34 Temperature Pulse Rate 65 64 63 Respiratory Rate 14 14 15 Blood Pressure 120/52 L 114/48 L 111/56 L Pulse Oximetry 95 95 97 Oxygen Delivery Nasal Cannula Nasal Cannula Nasal Cannula Oxygen Flow Rate 3 3 3 Fraction of Inspired Oxygen 02/02/25 11:39 02/02/25 11:44 02/02/25 11:49 Temperature Pulse Rate 64 60 60 Respiratory Rate 14 16 14 Blood Pressure 114/56 L 111/51 L 117/49 L Pulse Oximetry 97 97 97 Oxygen Delivery Nasal Cannula Nasal Cannula Nasal Cannula Oxygen Flow Rate 3 3 3 Fraction of Inspired Oxygen 02/02/25 12:30 02/02/25 12:55 02/02/25 12:56 Temperature Pulse Rate 124 H 124 H Respiratory Rate 18 18 Blood Pressure Pulse Oximetry 96 Oxygen Delivery Mechanical Ventilation Oxygen Flow Rate Fraction of Inspired Oxygen 100 Exam Narrative: General: Obese female currently in no acute distress HEENT:? Pupils equal and reactive, sclera is clear, ETT in place Neck:? Supple Respiratory:? Coarse breath sounds bilaterally, decreased at bases, no wheezing, adequate air entry Cardiac:? S1-S2 normal, regular rate and rhythm Abdomen:? Soft, nontender, obese, hypoactive bowel sounds Extremities:? Trace edema, palpable pedal pulse Neuro:? Patient did acknowledge and followed commands for the bedside RN, currently sedated with fentanyl Versed, patient does open her eyes to name, does not follow simple commands at this time Skin:? No skin lesions noted Psych:? Unable to assess at this time Results Labs 02/02/25 13:38 02/02/25 13:38 Labs: Short CBC 02/02/25 Range/Units 05:40 WBC 24.5 H (4.5-10.0) K/mm3 Hgb 9.0 L (12.0-15.0) g/dL Hct 30.8 L (37.0-47.0) % Plt Count 667 H (150-375) k/mm3 BMP 02/02/25 05:40 Sodium 136 L Potassium 3.9 Chloride 100 Carbon Dioxide 34 H BUN 12 Creatinine 0.83 Glucose 123 H Calcium 7.8 L Liver Function 02/02/25 Range/Units 05:40 Total Bilirubin 0.4 (0.2-1.3) mg/dL AST 25 (14-36) U/L ALT 11 (6-35) U/L Alkaline Phosphatase 113 (38-126) U/L Albumin 2.5 L (3.5-5.1) g/dL Quality VTE Prophylaxis VTE prophylaxis: pharmacologic ordered Hospitalist [facility] Advance Care Plan I have confirmed that the patient's Advanced Care Plan is present, code status is documented, or surrogate decision maker is listed in patient medical record.: Yes Medication Reconciliation I have utilized all available resources to obtain, update and review the patients current medications (includes all prescriptions, OTC, herbals, cannabis, and nutritional supplements).: Yes
[2025-02-02] MEDS: DOXYCYCLINE 100 MG/NS 100 ML 100 MG/100 ML BAG IVPB ×2 (13:40→20:28)
[2025-02-02 13:42] LABS: Mean Corpuscular HGB Conc 27.6 g/dl (32-36); Mean Corpuscular Hemoglobin 23.3 pg (26-34); Mean Corpuscular Volume 84.3 fl (80-100); Mean Platelet Volume 8.8 fl (7.4-10.4); Platelet Count Result 404 k/mm3 (150-375); Red Blood Count 3.44 M/mm3 (4.2-5.4); Red Cell Distribution Width 16.7 % (11.5-14.5); White Blood Count 16.7 K/mm3 (4.5-10.0)
--- NOTE | 2025-02-02 13:50 | PM.PNGS ---
Progress Note: A&P Assessment and Plan (1) Intra-abdominal abscess: Code(s): K65.1 - Peritoneal abscess Status: Acute Assessment and Plan: Proceed with re-attempt at percutaneous drainage of abscess in IR, continue IV antibiotics Plan I have discussed the patient's case and plan of care with Dr. Goins. Subjective Subjective Date/Time Seen: 02/02/25 09:50 Patient reports: no new complaints, still having pain and afebrile Interval history: Patient seen this morning prior to drain placement. She was alert and oriented. She denies any acute changes overnight. She was still having some rectal discomfort and pressure when lying flat or sitting. She reports having a hard time getting comfortable last night but cannot define why or what was bothering her. She denies any actual pain at this time. WBC up to 24.5. Exam Const: General: comfortable and no acute distress Orientation/consciousness: patient oriented x3 GI: Inspection: non-distended GI Palp: Yes Soft to palpation, No Tenderness to palpation present (GI), No Guarding due to palpation present (GI) and No Rebound tenderness present Auscultation: normal bowel sounds Objective Data Vital Signs Vital Signs: Vital Signs - 24 hr 02/01/25 14:00 02/01/25 16:00 02/01/25 20:00 Temperature 96.8 F L Pulse Rate 68 72 74 Respiratory Rate 18 16 Blood Pressure 140/65 Pulse Oximetry 99 94 Oxygen Delivery Room Air Oxygen Flow Rate Fraction of Inspired Oxygen 02/01/25 20:00 02/01/25 20:05 02/02/25 00:00 Temperature 96.7 F L Pulse Rate 73 74 66 Respiratory Rate 16 Blood Pressure 132/54 L Pulse Oximetry 94 Oxygen Delivery Oxygen Flow Rate Fraction of Inspired Oxygen 02/02/25 04:00 02/02/25 04:35 02/02/25 08:00 Temperature 96.2 F L Pulse Rate 72 74 Respiratory Rate 16 Blood Pressure 124/53 L Pulse Oximetry 83 L 92 Oxygen Delivery Nasal Cannula Oxygen Flow Rate 2 Fraction of Inspired Oxygen 02/02/25 08:00 02/02/25 10:58 02/02/25 11:04 Temperature Pulse Rate 62 72 70 Respiratory Rate 17 16 Blood Pressure 119/46 L 123/50 L Pulse Oximetry 100 98 Oxygen Delivery Nasal Cannula Nasal Cannula Oxygen Flow Rate 3 3 Fraction of Inspired Oxygen 02/02/25 11:09 02/02/25 11:14 02/02/25 11:19 Temperature Pulse Rate 69 66 64 Respiratory Rate 17 16 15 Blood Pressure 134/57 L 124/55 L 121/63 Pulse Oximetry 100 99 94 Oxygen Delivery Nasal Cannula Nasal Cannula Nasal Cannula Oxygen Flow Rate 3 3 3 Fraction of Inspired Oxygen 02/02/25 11:24 02/02/25 11:29 02/02/25 11:34 Temperature Pulse Rate 65 64 63 Respiratory Rate 14 14 15 Blood Pressure 120/52 L 114/48 L 111/56 L Pulse Oximetry 95 95 97 Oxygen Delivery Nasal Cannula Nasal Cannula Nasal Cannula Oxygen Flow Rate 3 3 3 Fraction of Inspired Oxygen 02/02/25 11:39 02/02/25 11:44 02/02/25 11:49 Temperature Pulse Rate 64 60 60 Respiratory Rate 14 16 14 Blood Pressure 114/56 L 111/51 L 117/49 L Pulse Oximetry 97 97 97 Oxygen Delivery Nasal Cannula Nasal Cannula Nasal Cannula Oxygen Flow Rate 3 3 3 Fraction of Inspired Oxygen 02/02/25 12:30 02/02/25 12:55 02/02/25 12:56 Temperature Pulse Rate 124 H 124 H Respiratory Rate 18 18 Blood Pressure Pulse Oximetry 96 Oxygen Delivery Mechanical Ventilation Oxygen Flow Rate Fraction of Inspired Oxygen 100 02/02/25 13:30 Temperature 97.9 F Pulse Rate 100 Respiratory Rate 18 Blood Pressure 97/73 L Pulse Oximetry 91 Oxygen Delivery Oxygen Flow Rate Fraction of Inspired Oxygen Intake/Output Intake/Output: Intake & Output 01/30/25 01/31/25 02/01/25 02/02/25 23:59 23:59 23:59 23:59 Intake Total 1100 1670 1320 700 Output Total 1100 1275 1450 425 Balance 0 395 -130 275 Meds/Results Medications: Active Medications Generic Name Dose Route Start Last Admin Trade Name Freq PRN Reason Stop Dose Admin Acetaminophen 650 mg 01/25/25 20:51 02/01/25 19:04 Acetaminophen 325 Mg Tablet PO 650 mg Q4H PRN Administration Headache Dextrose 12.5 gm 01/25/25 20:46 01/26/25 11:40 Dextrose 50% 25 Gm/50 Ml Syringe IV PUSH 12.5 gm PRN PRN Administration Hypoglycemia Protocol Fentanyl Citrate 25 mcg 01/25/25 20:51 02/02/25 01:12 Fentanyl Citrate Inj (*Crx) 100 Mcg/2 Ml Vial IV PUSH 25 mcg Q4H PRN Administration Pain Rated 6 or Greater Glucagon 1 mg 01/25/25 20:46 Glucagon For Inj 1 Mg Vial IM PRN PRN Hypoglycemia Protocol Glucose 15 gm 01/25/25 20:46 Glucose Oral Gel 15 Gm Of Glucse In 37.5 Gm Tube PO PRN PRN Hypoglycemia Protocol Dextrose 1,000 mls @ 100 mls/hr 01/25/25 20:46 Dextrose 5% 1,000 Ml IVPB PRN PRN Hypoglycemia Protocol Meropenem 1 gm in 100 mls @ 200 mls/hr 01/29/25 13:00 02/02/25 13:44 IVPB 200 mls/hr Q8HR KANDIS Administration Vancomycin HCl 1,500 mg in 500 mls @ 250 mls/hr 01/31/25 15:00 02/02/25 05:38 Vancomycin 1,500 Mg/Ns 500 Ml IVPB Infused Q18H KANDIS Infusion Doxycycline Hyclate 100 mg in 100 mls @ 100 mls/hr 02/02/25 11:00 02/02/25 13:40 Vibramycin 100 Mg/Ns 100 Ml IVPB 100 mls/hr Q12HR KANDIS Administration Fentanyl Citrate 2,500 mcg in 250 mls @ 5 mls/hr 02/02/25 12:55 02/02/25 12:56 Fentanyl 2,500 Mcg/Ns 250 Ml IV CONT 50 mcg/hr .Q50H KANDIS 5 mls/hr Administration Protocol 50 MCG/HR Midazolam HCl 100 mg in 100 mls @ 2 mls/hr 02/02/25 12:55 02/02/25 12:55 Versed 100 Mg/Ns 100 Ml IV CONT 2 mg/hr .Q50H KANDIS 2 mls/hr Administration Protocol 2 MG/HR Insulin Aspart 4 - 8 units 02/02/25 18:00 Insulin Aspart (*Bkc) 100 Units/Ml SUB-Q Q6H KANDIS Protocol Insulin Glargine 10 units 01/29/25 21:00 02/01/25 21:11 Insulin Glargine (*Bkc) 100 Units/Ml SUB-Q 10 units HS KANDIS Administration Midazolam HCl 2 mg 02/02/25 12:51 02/02/25 12:43 Midazolam Hcl (*Crx) 2 Mg/2 Ml Vial IV PUSH 2 mg PRN PRN Administration Sedation Multi-Ingred Cream/Lotion/Oil/Oint 1 applic 02/02/25 21:00 Mineral Oil/White Petrolatum Ointment EACH EYE Q12HR [facility] Ondansetron HCl 4 mg 01/25/25 20:51 01/31/25 21:23 Ondansetron Inj 4 Mg/2 Ml Vial IV PUSH 4 mg Q6H PRN Administration Nausea And Vomiting Saccharomyces Boulardii 250 mg 01/29/25 17:00 02/02/25 13:44 Saccharomyces Boulardii 250 Mg Capsule PO Not Given TID KANDIS Sodium Chloride 10 ml 02/02/25 14:00 Central Line Flush IV PUSH Q8HR KANDIS Sodium Chloride 20 ml 02/02/25 13:47 Central Line Flush IV PUSH PRN PRN after blood draws Radiology Results: ITS Impressions Pelvis CT 01/26/25 14:17 IMPRESSION: 1. No significant change in a bilobed gas and fluid containing abscess in the deep pelvis. Patient canceled the planned percutaneous abscess drainage catheter placement due to discomfort despite attempts at repositioning. Abdomen/Pelvis CT 01/29/25 09:28 Impression: Stable large bilobed multilocular abscess in the pelvis extensively involving the distal sigmoid colon and rectum. Stable wall thickening of the distal sigmoid colon and rectum. Small right pleural effusion with right basilar atelectatic change. Cholelithiasis. Nephrolithiasis bilaterally, as detailed above. Chest X-Ray 02/02/25 13:25 IMPRESSION: Bibasilar pneumonia. Right pleural effusion. Underlying pulmonary edema is not excluded. Labs Labs: Laboratory Results - last 24 hr 02/01/25 02/01/25 02/02/25 16:16 20:06 05:35 WBC RBC Hgb Hct MCV MCH MCHC RDW Plt Count MPV Sodium Potassium Chloride Carbon Dioxide Anion Gap BUN Creatinine Estim Creat Clear Calc Estimated GFR Glucose POC Capillary Glucose 134 H 108 H Calcium Iron 22 L TIBC 198 L % Saturation 11 L Ferritin 69.70 Total Bilirubin AST ALT Alkaline Phosphatase Total Protein Albumin 02/02/25 02/02/25 05:40 07:41 WBC 24.5 H RBC 3.85 L Hgb 9.0 L Hct 30.8 L MCV 80.0 MCH 23.4 L MCHC 29.2 L RDW 16.4 H Plt Count 667 H MPV 8.9 Sodium 136 L Potassium 3.9 Chloride 100 Carbon Dioxide 34 H Anion Gap 2 L BUN 12 Creatinine 0.83 Estim Creat Clear Calc 62 Estimated GFR > 60 Glucose 123 H POC Capillary Glucose 124 H Calcium 7.8 L Iron TIBC % Saturation Ferritin Total Bilirubin 0.4 AST 25 ALT 11 Alkaline Phosphatase 113 Total Protein 7.0 Albumin 2.5 L
[2025-02-02] MEDS: CENTRAL LINE FLUSH 10 ML IV PUSH ×2 (13:52→20:28)
[2025-02-02 13:55] LABS: Alveolar/Arterial O2 Gradient 606.7 mmHg; Base Excess ABG -4.8 mEq/l (+/-2.0); Fractional Inspired Oxygen 100 %; HCO3 ABG 21.4 mEq/l (22.0-26.0); Oxygen Content ABG 11.4 %vol (16.0-22.0); Oxygen Saturation ABG 90.6 % (95.0-100.0); PCO2 ABG 44.9 mmHg (35.0-45.0); PO2 FiO2 Ratio Arterial Blood 0.65 %; Reduced Hemoglobin 11.7 %THb (0-5.0); Total Hemoglobin 9.2 g/dL (12.0-18.0)
[2025-02-02 13:57] LABS: Prothrombin Time 22.6 Seconds (11.1-14.7)
[2025-02-02 13:58] LABS: Partial Thromboplastin Time 45.3 Seconds (22.3-36.8)
[2025-02-02 14:01] LABS: pH ABG 7.297 (7.350-7.450)
[2025-02-02 14:03] LABS: Device VENTILATOR; Oxyhemoglobin 87.3 % THb (90.0-100.0); Site Drawn LEFT RADIAL
[2025-02-02 14:04] LABS: Arterial Blood Gas PEEP 8 cmH2O; Arterial Blood Gas Tidal Volume 450 ml; Arterial Blood Gas Vent Mode CMV; Arterial Blood Gas Ventilator rate 20 /MIN
[2025-02-02 14:07] LABS: Band Neutrophils Percent 9 % (0-6); Hypochromasia 1+; Lymphocytes Absolute Manual 2.33 K/mm3 (1.1-4.5); Lymphocytes Percent Manual 14 % (18-44); Neutrophils Absolute Manual 14.36 K/mm3 (1.7-7.2); Neutrophils Percent Manual 77 % (46-73); Platelet Estimate Slightly Increased (Adequate); Total Cells Counted 100
[2025-02-02 14:08] LABS: Anisocytosis 1+; Schistocytes None Seen
--- NOTE | 2025-02-02 14:08 | PCPTNOTE ---
The patient treatment was not able to be completed today due to change in patient's medical condition. Patient transferred to ICU following code blue. Will await further orders to resume PT.
[2025-02-02 14:09] LABS: Atypical Lymphocytes Present
[2025-02-02 14:10] LABS: Lactic Acid Reflex 9.1 mmol/L (0.7-2.0)
[2025-02-02 14:11] LABS: Albumin Level 2.1 g/dL (3.5-5.1); Alkaline Phosphatase 373 U/L (38-126); Anion Gap 9 mmol/L (4-12); Aspartate Amino Transferase 62 U/L (14-36); Bilirubin,Total 0.7 mg/dL (0.2-1.3); Blood Urea Nitrogen 12 mg/dL (7-17); CRP 8.9 mg/dL (<1.0); Calcium 7.9 mg/dL (8.4-10.2); Carbon Dioxide 26 mmol/L (22-30); Chloride 101 mmol/L (98-107); Estimated CRCL calculation 54 ml/min; Estimated Glomerular Filt Rate 58; Glucose 191 mg/dL (65-110); Magnesium 2.1 mg/dL (1.6-2.3); Phosphorus 5.1 mg/dL (2.5-4.5); Potassium 3.5 mmol/L (3.4-5.0); Sodium 136 mmol/L (137-145); Troponin I 0.079 ng/mL (0.000-0.034)
[2025-02-02] MEDS: LACTATED RINGERS 500 ML IV CONT (14:13)
[2025-02-02] MEDS: NOREPINEPHRINE 8 MG/D5W 250 ML 8 MG/250 ML BAG 56.25 MG IV CONT (14:14)
--- NOTE | 2025-02-02 14:17 | PCCCNOTE ---
1417-Code Blue called when the pt was in CT. Noted the pt had been previously admitted from the third floor and had her daughter waiting in the room. The hospital keyon brought her down near radiology per the providers request. The daughter stated the pt is full code and noted she had been ill for some time but had been putting off treatment due to having anxiety about procedures. Stated she is the only daughter, the pt's 6 years ago and next of kin would be her living uncles. Understandably tearful, the daughter was escorted up to the ICU waiting room. ICU staff was made aware the daughter's location.[email or web address]
[2025-02-02 14:24] LABS: Alanine Aminotransferase 26 U/L (6-35)
[2025-02-02] MEDS: HYDROCORTISONE SODIUM SUCCINATE 100 MG/2 ML VIAL IV PUSH ×2 (14:34→22:43)
[2025-02-02] MEDS: ALBUMIN HUMAN 25% 25 GM/100 ML 100 ML IVPB ×2 (14:34→20:29)
[2025-02-02] MEDS: VASOPRESSIN INJ 100 UNITS in DEXTROSE 5% 95 ML IV CONT (14:35)
[2025-02-02] MEDS: SODIUM BICARBONATE 8.4% 50 MEQ/50 ML SYRINGE 100 MEQ IV PUSH (14:36)
[2025-02-02] MEDS: PHENYLEPHRINE HCL INJ 50 MG in DEXTROSE 5% IN WATER 250 ML/245 ML BAG 12 ML IV CONT (15:03)
--- NOTE | 2025-02-02 15:10 | WPDPROCEDUR ---
Procedures Central Line Placement Right IJ: Central Line Date: 02/02/25 Central Line Time: 13:40 Discussed w/ the patient/family/POA,the placement of a central venous catheter, including its clinical necessity/indication & associated potential risks, benifits and alternatives.: Yes The patient/family/POA understand(s) and acknowledge(s) the need to proceed with central venous catheter insertion as an important element of the patient's clinical management.: Yes Consent: I have discussed with the patient and/or surrogate, the non-emergent placement of a central venous catheter, including its clinical necessity/indication and associated potential risks and complications. The patient and/or surrogate understand(s) and acknowledge(s) the need to proceed with central venous catheter insertion as an important element of the patient's clinical management. Time Out Performed: Yes Patient Position: trendelenburg Patient placed on monitor/pulse ox: Yes Provider Prep: mask, sterile gown, sterile gloves, Max. sterile barrier precautions, cap and hand hygiene with conventional soap/water or alcohol based hand rub Central line prep: 2% Chlorhexidine scrub Local anesthesia used: lidocaine 1% Amount of anesthesia used (ml): 3 Sterile US Technique with sterile gel/sterile probe covers: Yes Central line lumen inserted: triple Turkmen: 7 Length (cm): 16 Depth of Insertion (cm): 16 Post Procedure: sutured in place, all ports aspirated, flushed, capped, transparent dressing, hemostatic product, antimicrobial product, securement product and aseptic technique maintained throughout procedure Post procedure x-ray: tip of catheter in good position Patient tolerated procedure: well Complications: none
--- NOTE | 2025-02-02 15:12 | WPDPROCEDUR ---
Procedures Arterial Line Arterial Line Date: 02/02/25 Arterial Line Time: 15:05 Discussed with the patient/family/POA, the placement of an arterial catheter, including its clinical necessity/indication and associated potential risks, benefits and alternatives.: Yes Time Out Performed: Yes Patient Position: supine Subcontracts Manager Prep: sterile gown, sterile gloves, mask and hat Site: right and femoral Site Prep: chlorhexidine and sterile drape Skin Anesthesia: 1% lidocaine Technique used: ultrasound-guided Size (Gauge): 14 Length: 12 cm Closure/Dressing: suture, transparent dressing, hemostatic product, antimicrobial product and securement product Patient tolerated procedure: well and no complications
--- NOTE | 2025-02-02 15:14 | PDCODEBLUE ---
Code Blue Note Code Blue Note Time Arrived at Code Blue: 11:58 AM 02/02/2025 Initial Rhythm on Arrival: PEA Airway Management: Pt being bagged on arrival Chest Compressions: In process on arrival to bedside Result of Code Blue: Pt transferred to ICU Cardiac Rhythm Post Code: Atrial Fibrillation RVR Code Blue Summary: Patient will need a CT scan suite getting a percutaneous drain placement for pelvic abscess. After the drain was placed patient rolled her eyes back, was apneic and pulseless, CPR was started immediately. ER physician's watery present upon my arrival, I took over the code from the ER physician. Dr. Parra intubated the patient in the meantime. Dr. Biggs was also there. Initial code was 11:56 a.m. with PEA arrest, patient getting adequate CPR and medications per ACLS protocol. ROSC was obtained at 12:12 pm with junctional and AFib rhythm. At 12:21 p.m. patient became bradycardic, pulseless, resume CPR. At 12:26 p.m. ROSC was again obtained patient was in usual fibrillation with RVR. Blood pressure is 143/115, patient was taken to the ICU. -for more information regarding the code please refer to the code sheet in the chart
[2025-02-02] MEDS: IPRATROPIUM BR 0.02% INH SOLN 0.5 MG/2.5 ML VIAL INHALATION ×2 (15:15→21:09)
[2025-02-02] MEDS: LEVALBUTEROL NEB 1.25 MG/3 ML 0.63 MG INHALATION ×2 (15:16→21:08)
[2025-02-02 15:40] LABS: Reflex Lactic Acid Yes or No Add Lactic
[2025-02-02] MEDS: SODIUM BICARBONATE 8.4% 150 MEQ in WATER, STERILE FOR INJECTION 950 ML 100 MEQ IV CONT (15:51)
--- NOTE | 2025-02-02 16:06 | P.PNIM_ITS ---
Progress Note: A&P Assessment and Plan (1) Cardiac arrest: Code(s): I46.9 - Cardiac arrest, cause unspecified Status: Acute Assessment and Plan: Appeared to have had PEA arrest on interviewing the providers in the IR suite -s/p resuscitation and was intubated and transferred to ICU director information security following (2) Septic shock: Code(s): A41.9 - Sepsis, unspecified organism; R65.21 - Severe sepsis with septic shock Status: Acute Assessment and Plan: likely related to Pelvic abscess and pneumonia drain in place CXR reviewed Follow up with cultures Continue Meropenem and Vancomycin For abscess and Doxycycline added to cover HAP Titrate pressors per director information security (3) Acute respiratory failure: Code(s): J96.00 - Acute respiratory failure, unspecified whether with hypoxia or hypercapnia Status: Acute Assessment and Plan: Acute respiratory failure likely related to cardiac arrest possible from septic shock, infection, hypovolemia, translocation of bacteria, acidosis, hypoxia intubated Continue sedation protocol per director information security monitor (4) Intra-abdominal abscess: Code(s): K65.1 - Peritoneal abscess Status: Acute Assessment and Plan: Intra-abdominal abscess, status post percutaneous IR drain placement on 02/01/2025 continue drainage Surgery on board follow up cultures (5) Diabetes 1.5, managed as type 2: Code(s): E13.9 - Other specified diabetes mellitus without complications Status: Acute Assessment and Plan: Continue Accu-Cheks and sliding scale insulin -currently NPO so hold Lantus for now (6) Hypertension: Qualifiers: Hypertension type: unspecified Qualified Code(s): I10 - Essential (primary) hypertension Code(s): I10 - Essential (primary) hypertension Status: Acute Assessment and Plan: titrate home antihypertensives with clinical course Plan DVT prophylaxis: Lovenox Stress ulcer prophylaxis: Protonix Nutrition: NPO Code Status: Full code Subjective Date/time seen: 02/02/25 16:06 Interval history: patient coded while in IR for drain placement was successfully resuscitated, intubated and transferred to the ICU Review of Systems Review of Systems: All systems reviewed & are unremarkable except as noted in HPI and below ROS unobtainable: Yes unobtainable due to endotracheal tube, unobtainable due to medical condition and unobtainable due to mental status Exam Narrative: General: intubated and sedated HEENT:? Pupils equal and reactive, sclera is clear, ETT in place Neck:? Supple Respiratory:? Coarse breath sounds bilaterally, decreased at bases, no wheezing, adequate air entry Cardiac:? S1-S2 normal, regular rate and rhythm Abdomen:? Soft, nontender, obese, hypoactive bowel sounds Extremities:? Trace edema, palpable pedal pulse Neuro:? Patient did acknowledge and followed commands for the bedside RN, currently sedated with fentanyl Versed, patient does open her eyes to name, does not follow simple commands at this time Skin:? No skin lesions noted Psych:? Unable to assess at this time Const: General: comfortable and no acute distress Other: , female, elderly, disheveled. Nontoxic appearance. HENMT: Face/Nose/Sinus: Normal nares present Mouth: Yes moist mucous membranes Eyes: General: appearance normal, both eyes and all related structures Sclera: sclerae normal Pupils: Equal, round and reactive pupils present EOM: EOMs intact bilaterally Resp: Effort & Inspection: normal respiratory effort Auscultation: clear to auscultation bilaterally Cardio: Rate: regular rate Rhythm: regular rhythm Other: S1-S2 present without murmur, rub, ectopy GI: Other: tender in the lower quadrants. hyperactive bowel sounds in the upper quadrants, normoactive in the lower. Nondistended, soft. Skin: General skin exam: normal color and no rashes or lesions noted Wounds: no wounds Neuro: Cranial nerves: Yes Equal, round and reactive pupils present Speech: normal speech Motor exam (neuro): 5/5 motor strength present throughout Sensory Exam: normal sensation Other: A&O x4 Extrem: General: normal to inspection Psych: Mental Status: mental status grossly normal Affect: normal affect Other: Malodorous, disheveled. Fair insight and judgment, pleasant. Objective Data Vital Signs Vital Signs: Vital Signs - 24 hr 02/01/25 20:00 02/01/25 20:00 02/01/25 20:05 Temperature 96.7 F L Pulse Rate 74 73 74 Respiratory Rate 16 16 Blood Pressure 132/54 L Pulse Oximetry 94 94 Oxygen Delivery Room Air Oxygen Flow Rate Fraction of Inspired Oxygen 02/02/25 00:00 02/02/25 04:00 02/02/25 04:35 Temperature 96.2 F L Pulse Rate 66 72 74 Respiratory Rate 16 Blood Pressure 124/53 L Pulse Oximetry 83 L Oxygen Delivery Oxygen Flow Rate Fraction of Inspired Oxygen 02/02/25 08:00 02/02/25 08:00 02/02/25 10:58 Temperature Pulse Rate 62 72 Respiratory Rate 17 Blood Pressure 119/46 L Pulse Oximetry 92 100 Oxygen Delivery Nasal Cannula Nasal Cannula Oxygen Flow Rate 2 3 Fraction of Inspired Oxygen 02/02/25 11:04 02/02/25 11:09 02/02/25 11:14 Temperature Pulse Rate 70 69 66 Respiratory Rate 16 17 16 Blood Pressure 123/50 L 134/57 L 124/55 L Pulse Oximetry 98 100 99 Oxygen Delivery Nasal Cannula Nasal Cannula Nasal Cannula Oxygen Flow Rate 3 3 3 Fraction of Inspired Oxygen 02/02/25 11:19 02/02/25 11:24 02/02/25 11:29 Temperature Pulse Rate 64 65 64 Respiratory Rate 15 14 14 Blood Pressure 121/63 120/52 L 114/48 L Pulse Oximetry 94 95 95 Oxygen Delivery Nasal Cannula Nasal Cannula Nasal Cannula Oxygen Flow Rate 3 3 3 Fraction of Inspired Oxygen 02/02/25 11:34 02/02/25 11:39 02/02/25 11:44 Temperature Pulse Rate 63 64 60 Respiratory Rate 15 14 16 Blood Pressure 111/56 L 114/56 L 111/51 L Pulse Oximetry 97 97 97 Oxygen Delivery Nasal Cannula Nasal Cannula Nasal Cannula Oxygen Flow Rate 3 3 3 Fraction of Inspired Oxygen 02/02/25 11:49 02/02/25 12:30 02/02/25 12:55 Temperature Pulse Rate 60 124 H Respiratory Rate 14 18 Blood Pressure 117/49 L Pulse Oximetry 97 96 Oxygen Delivery Nasal Cannula Mechanical Ventilation Oxygen Flow Rate 3 Fraction of Inspired Oxygen 100 02/02/25 12:56 02/02/25 13:30 02/02/25 14:00 Temperature 97.9 F Pulse Rate 124 H 100 94 Respiratory Rate 18 18 Blood Pressure 97/73 L Pulse Oximetry 91 95 Oxygen Delivery Mechanical Ventilation Oxygen Flow Rate Fraction of Inspired Oxygen 100 02/02/25 14:14 02/02/25 14:35 02/02/25 15:03 Temperature Pulse Rate 94 108 H 100 Respiratory Rate Blood Pressure 48/29 L 66/53 L 94/63 L Pulse Oximetry Oxygen Delivery Oxygen Flow Rate Fraction of Inspired Oxygen 02/02/25 15:09 02/02/25 15:11 02/02/25 15:17 Temperature Pulse Rate 102 H 101 H 101 H Respiratory Rate 30 H Blood Pressure 126/44 L 122/48 L Pulse Oximetry Oxygen Delivery Oxygen Flow Rate Fraction of Inspired Oxygen 02/02/25 15:31 02/02/25 15:49 02/02/25 16:00 Temperature Pulse Rate 94 96 98 Respiratory Rate Blood Pressure 132/61 127/59 L 133/58 L Pulse Oximetry Oxygen Delivery Oxygen Flow Rate Fraction of Inspired Oxygen 02/02/25 16:01 Temperature Pulse Rate 99 Respiratory Rate 28 H Blood Pressure Pulse Oximetry Oxygen Delivery Oxygen Flow Rate Fraction of Inspired Oxygen Intake/Output Intake/Output: Intake & Output 01/30/25 01/31/25 02/01/25 02/02/25 23:59 23:59 23:59 23:59 Intake Total 1100 1670 1320 834.8 Output Total 1100 1275 1450 425 Balance 0 395 -130 409.8 Meds/Results Medications: Active Medications Generic Name Dose Route Start Last Admin Trade Name Freq PRN Reason Stop Dose Admin Acetaminophen 650 mg 01/25/25 20:51 02/01/25 19:04 Acetaminophen 325 Mg Tablet PO 650 mg Q4H PRN Administration Headache Dextrose 12.5 gm 01/25/25 20:46 01/26/25 11:40 Dextrose 50% 25 Gm/50 Ml Syringe IV PUSH 12.5 gm PRN PRN Administration Hypoglycemia Protocol Enoxaparin Sodium 40 mg 02/02/25 14:30 02/02/25 14:40 Enoxaparin 40 Mg/0.4 Ml Syringe SUB-Q Not Given DAILY KANDIS Fentanyl Citrate 25 mcg 01/25/25 20:51 02/02/25 01:12 Fentanyl Citrate Inj (*Crx) 100 Mcg/2 Ml Vial IV PUSH 25 mcg Q4H PRN Administration Pain Rated 6 or Greater Glucagon 1 mg 01/25/25 20:46 Glucagon For Inj 1 Mg Vial IM PRN PRN Hypoglycemia Protocol Glucose 15 gm 01/25/25 20:46 Glucose Oral Gel 15 Gm Of Glucse In 37.5 Gm Tube PO PRN PRN Hypoglycemia Protocol Hydrocortisone Sodium Succinate 100 mg 02/02/25 14:20 02/02/25 14:34 Hydrocortisone Sodium Succinate 100 Mg/2 Ml Vial IV PUSH 100 mg Q8HR KANDIS Administration Dextrose 1,000 mls @ 100 mls/hr 01/25/25 20:46 Dextrose 5% 1,000 Ml IVPB PRN PRN Hypoglycemia Protocol Meropenem 1 gm in 100 mls @ 200 mls/hr 01/29/25 13:00 02/02/25 13:44 IVPB 200 mls/hr Q8HR KANDIS Administration Vancomycin HCl 1,500 mg in 500 mls @ 250 mls/hr 01/31/25 15:00 02/02/25 05:38 Vancomycin 1,500 Mg/Ns 500 Ml IVPB Infused Q18H KANDIS Infusion Doxycycline Hyclate 100 mg in 100 mls @ 100 mls/hr 02/02/25 11:00 02/02/25 13:40 Vibramycin 100 Mg/Ns 100 Ml IVPB 100 mls/hr Q12HR KANDIS Administration Fentanyl Citrate 2,500 mcg in 250 mls @ 5 mls/hr 02/02/25 12:55 02/02/25 12:56 Fentanyl 2,500 Mcg/Ns 250 Ml IV CONT 50 mcg/hr .Q50H KANDIS 5 mls/hr Administration Protocol 50 MCG/HR Midazolam HCl 100 mg in 100 mls @ 4 mls/hr 02/02/25 12:55 02/02/25 16:01 Versed 100 Mg/Ns 100 Ml IV CONT 4 mg/hr .Q25H KANDIS 4 mls/hr Titration Protocol 4 MG/HR Albumin Human 100 mls @ 60 mls/hr 02/02/25 14:00 02/02/25 14:34 Albutein IVPB 02/03/25 09:39 60 mls/hr Q6H KANDIS Administration Norepinephrine Bitartrate 8 mg in 250 mls @ 82.5 mls/hr 02/02/25 14:10 02/02/25 16:00 Levophed 8 Mg/D5w 250 Ml IV CONT 44 mcg/min .Q3H2M KANDIS 82.5 mls/hr Titration Protocol 44 MCG/MIN Vasopressin 100 units/ 100 mls @ 1.2 mls/hr 02/02/25 14:20 02/02/25 14:35 Dextrose IV CONT 0.04 units/min .Q72H KANDIS 2.4 mls/hr Administration Protocol 0.02 UNITS/MIN Phenylephrine HCl 50 mg/ 250 ml in 250 mls @ 30 mls/hr 02/02/25 14:55 02/02/25 15:09 Dextrose IV CONT 100 mcg/min .Q8H20M KANDIS 30 mls/hr Titration Protocol 100 MCG/MIN Sodium Bicarbonate 150 meq/ 1,100 mls @ 100 mls/hr 02/02/25 15:15 02/02/25 15:51 Sterile Water IV CONT 02/03/25 01:14 100 mls/hr .Q11H KANDIS Administration Insulin Aspart 4 - 8 units 02/02/25 18:00 Insulin Aspart (*Bkc) 100 Units/Ml SUB-Q Q6H KANDIS Protocol Insulin Glargine 10 units 01/29/25 21:00 02/01/25 21:11 Insulin Glargine (*Bkc) 100 Units/Ml SUB-Q 10 units HS KANDIS Administration Ipratropium [place] 0.5 mg 02/02/25 14:20 02/02/25 15:15 Ipratropium Br 0.02% Inh Soln 0.5 Mg/2.5 Ml Vial INHALATION 0.5 mg Q6HRT KANDIS Administration Levalbuterol HCl 0.63 mg 02/02/25 14:20 02/02/25 15:16 Levalbuterol Neb 1.25 Mg/3 Ml INHALATION 0.63 mg Q6HRT KANDIS Administration Midazolam HCl 2 mg 02/02/25 12:51 02/02/25 12:43 Midazolam Hcl (*Crx) 2 Mg/2 Ml Vial IV PUSH 2 mg PRN PRN Administration Sedation Multi-Ingred Cream/Lotion/Oil/Oint 1 applic 02/02/25 21:00 Mineral Oil/White Petrolatum Ointment EACH EYE Q12HR [facility] Ondansetron HCl 4 mg 01/25/25 20:51 01/31/25 21:23 Ondansetron Inj 4 Mg/2 Ml Vial IV PUSH 4 mg Q6H PRN Administration Nausea And Vomiting Pantoprazole Sodium 40 mg 02/03/25 09:00 Pantoprazole Sodium Iv 40 Mg Vial IV PUSH QAM KANDIS Saccharomyces Boulardii 250 mg 01/29/25 17:00 02/02/25 13:44 Saccharomyces Boulardii 250 Mg Capsule PO Not Given TID KANDIS Sodium Chloride 10 ml 02/02/25 14:00 02/02/25 13:52 Central Line Flush IV PUSH 10 ml Q8HR KANDIS Administration Sodium Chloride 20 ml 02/02/25 13:47 Central Line Flush IV PUSH PRN PRN after blood draws Radiology Results: ITS Impressions Pelvis CT 01/26/25 14:17 IMPRESSION: 1. No significant change in a bilobed gas and fluid containing abscess in the deep pelvis. Patient canceled the planned percutaneous abscess drainage catheter placement due to discomfort despite attempts at repositioning. Abdomen/Pelvis CT 01/29/25 09:28 Impression: Stable large bilobed multilocular abscess in the pelvis extensively involving the distal sigmoid colon and rectum. Stable wall thickening of the distal sigmoid colon and rectum. Small right pleural effusion with right basilar atelectatic change. Cholelithiasis. Nephrolithiasis bilaterally, as detailed above. Chest X-Ray 02/02/25 13:25 IMPRESSION: Bibasilar pneumonia. Right pleural effusion. Underlying pulmonary edema is not excluded. Labs Labs: Laboratory Results - last 24 hr 02/01/25 02/01/25 02/02/25 16:16 20:06 05:35 WBC RBC Hgb Hct MCV MCH MCHC RDW Plt Count MPV Immature Gran % (Auto) Neut % (Auto) Lymph % (Auto) [place] % (Auto) Eos % (Auto) Baso % (Auto) Lymph # (Auto) [place] # (Auto) Eos # (Auto) Baso # (Auto) Abs Immat Gran (auto) Absolute Neuts (auto) Absolute Nucleated RBC Total Counted Neutrophils % (Manual) Band Neutrophils % Lymphocytes % (Manual) Nucleated RBC % Abs Neuts (Manual) Abs Lymphs (Manual) Atypical Lymphocytes Platelet Estimate Hypochromasia Anisocytosis Schistocytes PT INR APTT Puncture Site ABG pH ABG pCO2 ABG pO2 ABG PO2/FiO2 Ratio ABG HCO3 ABG O2 Saturation ABG O2 Content ABG Base Excess A-a Gradient Oxyhemoglobin Carboxyhemoglobin Methemoglobin Reduced Hemoglobin Total Hemoglobin O2 Delivery Device O2 Liters/Min Minute Volume Vent Rate Vent Mode FiO2 Tidal Volume PEEP Peak Inspir Pressure Pressure Support Sodium Potassium Chloride Carbon Dioxide Anion Gap BUN Creatinine Estim Creat Clear Calc Estimated GFR Glucose POC Capillary Glucose 134 H 108 H Lactic Acid Calcium Phosphorus Magnesium Iron 22 L TIBC 198 L % Saturation 11 L Ferritin 69.70 Total Bilirubin AST ALT Alkaline Phosphatase Troponin I C-Reactive Protein Total Protein Albumin 02/02/25 02/02/25 02/02/25 05:40 07:41 13:38 WBC 24.5 H 16.7 H RBC 3.85 L 3.44 L Hgb 9.0 L 8.0 L Hct 30.8 L 29.0 L MCV 80.0 84.3 D MCH 23.4 L 23.3 L MCHC 29.2 L 27.6 L RDW 16.4 H 16.7 H Plt Count 667 H 404 H MPV 8.9 8.8 Immature Gran % (Auto) Not Reportable Neut % (Auto) Not Reportable Lymph % (Auto) Not Reportable [place] % (Auto) Not Reportable Eos % (Auto) Not Reportable Baso % (Auto) Not Reportable Lymph # (Auto) Not Reportable [place] # (Auto) Not Reportable Eos # (Auto) Not Reportable Baso # (Auto) Not Reportable Abs Immat Gran (auto) Not Reportable Absolute Neuts (auto) Not Reportable Absolute Nucleated RBC Not Reportable Total Counted 100 Neutrophils % (Manual) 77 H Band Neutrophils % 9 H Lymphocytes % (Manual) 14 L Nucleated RBC % Not Reportable Abs Neuts (Manual) 14.36 H Abs Lymphs (Manual) 2.33 Atypical Lymphocytes Present Platelet Estimate Slightly increased Hypochromasia 1+ Anisocytosis 1+ Schistocytes None seen PT 22.6 H INR 2.0 APTT 45.3 H Puncture Site ABG pH ABG pCO2 ABG pO2 ABG PO2/FiO2 Ratio ABG HCO3 ABG O2 Saturation ABG O2 Content ABG Base Excess A-a Gradient Oxyhemoglobin Carboxyhemoglobin Methemoglobin Reduced Hemoglobin Total Hemoglobin O2 Delivery Device O2 Liters/Min Minute Volume Vent Rate Vent Mode FiO2 Tidal Volume PEEP Peak Inspir Pressure Pressure Support Sodium 136 L 136 L Potassium 3.9 3.5 Chloride 100 101 Carbon Dioxide 34 H 26 Anion Gap 2 L 9 BUN 12 12 Creatinine 0.83 0.95 Estim Creat Clear Calc 62 54 Estimated GFR > 60 58 L Glucose 123 H 191 H POC Capillary Glucose 124 H Lactic Acid 9.1 H* Calcium 7.8 L 7.9 L Phosphorus 5.1 H Magnesium 2.1 Iron TIBC % Saturation Ferritin Total Bilirubin 0.4 0.7 AST 25 62 H ALT 11 26 Alkaline Phosphatase 113 373 H Troponin I 0.079 H* C-Reactive Protein 8.9 H Total Protein 7.0 6.0 L Albumin 2.5 L 2.1 L 02/02/25 13:53 WBC RBC Hgb Hct MCV MCH MCHC RDW Plt Count MPV Immature Gran % (Auto) Neut % (Auto) Lymph % (Auto) [place] % (Auto) Eos % (Auto) Baso % (Auto) Lymph # (Auto) [place] # (Auto) Eos # (Auto) Baso # (Auto) Abs Immat Gran (auto) Absolute Neuts (auto) Absolute Nucleated RBC Total Counted Neutrophils % (Manual) Band Neutrophils % Lymphocytes % (Manual) Nucleated RBC % Abs Neuts (Manual) Abs Lymphs (Manual) Atypical Lymphocytes Platelet Estimate Hypochromasia Anisocytosis Schistocytes PT INR APTT Puncture Site Left radial ABG pH 7.297 L* ABG pCO2 44.9 ABG pO2 65.0 L ABG PO2/FiO2 Ratio 0.65 ABG HCO3 21.4 L ABG O2 Saturation 90.6 L ABG O2 Content 11.4 L ABG Base Excess -4.8 A-a Gradient 606.7 Oxyhemoglobin 87.3 L* Carboxyhemoglobin 1.0 Methemoglobin 0.0 Reduced Hemoglobin 11.7 H Total Hemoglobin 9.2 L O2 Delivery Device Ventilator O2 Liters/Min Not Reportable Minute Volume Not Reportable Vent Rate 20 Vent Mode Cmv FiO2 100 Tidal Volume 450 PEEP 8 Peak Inspir Pressure Not Reportable Pressure Support Not Reportable Sodium Potassium Chloride Carbon Dioxide Anion Gap BUN Creatinine Estim Creat Clear Calc Estimated GFR Glucose POC Capillary Glucose Lactic Acid Calcium Phosphorus Magnesium Iron TIBC % Saturation Ferritin Total Bilirubin AST ALT Alkaline Phosphatase Troponin I C-Reactive Protein Total Protein Albumin Quality VTE Prophylaxis VTE prophylaxis: pharmacologic ordered
[2025-02-02] MEDS: NOREPINEPHRINE 8 MG/D5W 250 ML 8 MG/250 ML BAG 75 MG IV CONT (16:30)
[2025-02-02 18:15] LABS: Glucose Point of Care 165 mg/dl (65-105)
[2025-02-02 18:28] LABS: Lactic Acid 8.5 mmol/L (0.7-2.0)
[2025-02-02 19:12] LABS: Add Urine Microscopic? YES; Appearance Urine Turbid (Clear); Bacteria Urine Rare /hpf; Bilirubin Urine 1+ (Negative); Blood Urine 3+ (Negative); Color Urine Dark Yellow (Yellow); Glucose Urine UA Trace mg/dL (Negative); Ketones Urine Trace mg/dL (Negative); Leukocyte Esterase Ur Trace LEU/UL (Negative); Nitrate Urine Negative (Negative); Non Pathogenic Casts >20; Protein Urine 3+ mg/dL (Negative); RBC Urine >100 /hpf (0-2); Specific Grav Ur > 1.045 (1.001-1.035); Squamous Epithelial Cell Urine Moderate /hpf (Few); WBC Urine 51-100 /hpf (0-3)
[2025-02-02 19:16] LABS: MRSA (PCR) DETECTED (NOT DETECTE)
[2025-02-02] MEDS: MINERAL OIL/WHITE PETROLATUM OINTMENT 1 APPLIC EACH EYE (20:28)
[2025-02-02 21:07] LABS: Vancomycin Trough 11.9 ug/mL (10.0-20.0)
[2025-02-02] MEDS: PHENYLEPHRINE HCL INJ 50 MG in DEXTROSE 5% IN WATER 250 ML/245 ML BAG 30 ML IV CONT (21:14)
[2025-02-02] MEDS: VANCOMYCIN 1,500 MG/NS 500 ML 1,500 MG/500 ML BAG 250 MG IVPB (22:28)
[2025-02-02] MEDS: NOREPINEPHRINE 8 MG/D5W 250 ML 8 MG/250 ML BAG 43.13 MG IV CONT (22:34)
[2025-02-02] MEDS: INSULIN ASPART (*BKC) 100 UNITS/ML SUB-Q (23:11)
[2025-02-02 23:17] LABS: Glucose Point of Care 207 mg/dl (65-105)
[2025-02-03] VITALS (51 sets, daily range): BP systolic 88–136; BP diastolic 47–60; PULSE 64–95; RESP 12–26; TEMP 36.4–38.1; O2SAT 95–100
[2025-02-03] MEDS: LEVALBUTEROL NEB 1.25 MG/3 ML 0.63 MG INHALATION ×4 (01:53→20:47)
[2025-02-03] MEDS: IPRATROPIUM BR 0.02% INH SOLN 0.5 MG/2.5 ML VIAL INHALATION ×4 (01:54→20:48)
[2025-02-03] MEDS: ALBUMIN HUMAN 25% 25 GM/100 ML 100 ML IVPB ×2 (02:17→08:21)
[2025-02-03] MEDS: NOREPINEPHRINE 8 MG/D5W 250 ML 8 MG/250 ML BAG 24.38 MG IV CONT (04:54)
[2025-02-03] MEDS: HYDROCORTISONE SODIUM SUCCINATE 100 MG/2 ML VIAL IV PUSH ×3 (04:55→21:03)
[2025-02-03] MEDS: MIDAZOLAM 100MG/NS 100ML(*CRX) 100 MG/100 ML BAG 6 MG IV CONT (04:55)
[2025-02-03] MEDS: CENTRAL LINE FLUSH 10 ML IV PUSH ×3 (04:56→21:03)
[2025-02-03 05:03] LABS: Base Excess ABG -0.1 mEq/l (+/-2.0); Carboxyhemoglobin 0.8 % THb (0-2.0); Fractional Inspired Oxygen 90 %; HCO3 ABG 22.1 mEq/l (22.0-26.0); Methemoglobin ABG 0.3 %THb (0-1.5); Oxygen Content ABG 10.2 %vol (16.0-22.0); Oxygen Saturation ABG 99.6 % (95.0-100.0); Oxyhemoglobin 98.9 % THb (90.0-100.0); PCO2 ABG 25.9 mmHg (35.0-45.0); PO2 ABG 230.2 mmHg (80.0-100.0); PO2 FiO2 Ratio Arterial Blood 2.56 %
[2025-02-03] MEDS: MEROPENEM 1 GM/NS 100 ML 1 GM/100 ML BAG IVPB ×3 (05:04→21:03)
[2025-02-03 05:11] LABS: Mean Corpuscular HGB Conc 31.4 g/dl (32-36); Mean Corpuscular Hemoglobin 24.5 pg (26-34); Mean Corpuscular Volume 78.1 fl (80-100); Mean Platelet Volume 9.4 fl (7.4-10.4); Platelet Count Result 270 k/mm3 (150-375); Red Blood Count 2.65 M/mm3 (4.2-5.4); Red Cell Distribution Width 16.8 % (11.5-14.5)
[2025-02-03 05:21] LABS: Lactic Acid Reflex 3.9 mmol/L (0.7-2.0)
[2025-02-03 05:22] LABS: Alanine Aminotransferase 16 U/L (6-35); Albumin Level 2.6 g/dL (3.5-5.1); Alkaline Phosphatase 108 U/L (38-126); Anion Gap 12 mmol/L (4-12); Aspartate Amino Transferase 39 U/L (14-36); Bilirubin,Total 1.6 mg/dL (0.2-1.3); Blood Urea Nitrogen 17 mg/dL (7-17); Calcium 7.4 mg/dL (8.4-10.2); Carbon Dioxide 27 mmol/L (22-30); Chloride 97 mmol/L (98-107); Estimated CRCL calculation 40 ml/min; Estimated Glomerular Filt Rate 40; Glucose 233 mg/dL (65-110); Magnesium 1.8 mg/dL (1.6-2.3); Phosphorus 3.5 mg/dL (2.5-4.5); Potassium 3.1 mmol/L (3.4-5.0); Sodium 136 mmol/L (137-145)
[2025-02-03 05:33] LABS: INR 1.9; Prothrombin Time 22.5 Seconds (11.1-14.7)
[2025-02-03 05:51] LABS: Hematocrit 20.7 % (37.0-47.0); Hemoglobin 6.5 g/dL (12.0-15.0); White Blood Count 70.2 K/mm3 (4.5-10.0)
[2025-02-03 05:52] LABS: Platelet Estimate Adequate (Adequate)
[2025-02-03 05:53] LABS: Band Neutrophils Percent 7 % (0-6); Lymphocytes Percent Manual 1 % (18-44); Total Cells Counted 100
[2025-02-03 05:54] LABS: Eosinophils Percent Manual 1 % (0-4); Hypochromasia 1+; Monocytes Percent Manual 3 % (3-9); Neutrophils Absolute Manual 66.69 K/mm3 (1.7-7.2); Neutrophils Percent Manual 88 % (46-73); Ovalocytes 1+; Schistocytes None Seen
[2025-02-03 06:17] LABS: pH ABG 7.549 (7.350-7.450)
[2025-02-03 06:18] LABS: Device VENTILATOR; Site Drawn ARTLINE; Total Hemoglobin 6.9 g/dL (12.0-18.0)
[2025-02-03 06:19] LABS: Arterial Blood Gas PEEP 8 cmH2O; Arterial Blood Gas Tidal Volume 360 ml; Arterial Blood Gas Vent Mode CMV; Arterial Blood Gas Ventilator rate 24 /MIN
[2025-02-03] MEDS: INSULIN ASPART (*BKC) 100 UNITS/ML SUB-Q ×3 (06:41→17:05)
[2025-02-03 06:47] LABS: Mean Corpuscular HGB Conc 30.7 g/dl (32-36); Mean Corpuscular Volume 77.9 fl (80-100); Platelet Count Result 245 k/mm3 (150-375); Red Blood Count 2.63 M/mm3 (4.2-5.4); Red Cell Distribution Width 16.7 % (11.5-14.5)
[2025-02-03 06:57] LABS: Hematocrit 20.5 % (37.0-47.0); Hemoglobin 6.3 g/dL (12.0-15.0)
[2025-02-03 07:09] LABS: Reflex Lactic Acid Yes or No Add Lactic
[2025-02-03] MEDS: PANTOPRAZOLE SODIUM IV 40 MG VIAL IV PUSH (08:22)
--- NOTE | 2025-02-03 08:32 | WPDINTPN ---
Progress Note: A&P Assessment and Plan (1) Cardiac arrest: Code(s): I46.9 - Cardiac arrest, cause unspecified Status: Acute Assessment and Plan: Patient had a cardiac arrest after placement of a percutaneous drain in the pelvic abscess. Could be related to vasovagal, translocation of bacteria, hypoxia as patient was laying flat, hypovolemia, acidosis -successful ROSC x2, intubated in the CT scan suite by ER physician -patient did follow commands post code a continue, so not a candidate for targeted temperature management -will continue to treat underlying cause (2) Septic shock: Code(s): A41.9 - Sepsis, unspecified organism; R65.21 - Severe sepsis with septic shock Status: Acute Assessment and Plan: 02/01:In the ICU patient dropped her blood pressures -patient was fluid-resuscitated with 1.5 L IV fluid bolus -will given additional 500 mL of IV fluid bolus -after which will give albumin for intravascular volume expansion -will check volume responsiveness with cheetah/NICOM -continue meropenem, vancomycin for the abscesses -continue doxycycline for possible pneumonia which was started when she was on the medical floor to cover atypicals -continue Levophed and vasopressin, will maintain MAP > 65 mmHg at all times for adequate end organ perfusion -Bobo-Synephrine was discontinued -01/25: Blood cultures negative x2 -02/02: repeat blood cultures -pending -02/02: Abscess fluid culture pending -continue stress dose steroids 02/03: WBC count up to 64, could be related to septic shock, infection, leukomoid reaction, steroids. Will continue to monitor (3) Acute respiratory failure: Code(s): J96.00 - Acute respiratory failure, unspecified whether with hypoxia or hypercapnia Status: Acute Assessment and Plan: Acute respiratory failure likely related to cardiac arrest possible from septic shock, infection, hypovolemia, translocation of bacteria, acidosis, hypoxia -patient intubated in the CT scan suite by ER physician -currently on CMV mode of ventilation, peep of 8, will wean FiO2 to maintain O2 sats greater than 92% -chest x-ray and ABGs reviewed -ventilator adjusted -continue Xopenex and Atrovent nebulizer -sedated with fentanyl and Versed infusion, maintain RASS of 0 to -2. Daily SBT and SAT (4) Intra-abdominal abscess: Code(s): K65.1 - Peritoneal abscess Status: Acute Assessment and Plan: Intra-abdominal abscess, status post percutaneous IR drain placement on 02/01/2025 -draining purulent material, culture sent which are pending -surgery is following the patient -continue antibiotics as above (5) Diabetes 1.5, managed as type 2: Code(s): E13.9 - Other specified diabetes mellitus without complications Status: Acute Assessment and Plan: Continue Accu-Cheks and sliding scale insulin -currently NPO so hold Lantus for now (6) Hypertension: Qualifiers: Hypertension type: unspecified Qualified Code(s): I10 - Essential (primary) hypertension Code(s): I10 - Essential (primary) hypertension Status: Acute Assessment and Plan: Hold all antihypertensives, as patient is on pressors (7) Anemia: Code(s): D64.9 - Anemia, unspecified Status: Acute Assessment and Plan: 02/03: Hemoglobin dropped to 6.3. -will transfuse 1 unit of packed RBC -monitor hemoglobin q.6 hours post transfusion Plan DVT prophylaxis: Hold Lovenox due to anemia, SCD orders in place Stress ulcer prophylaxis: Protonix Nutrition: Will start trickle feeds today Code Status: Full code Critical Care Time Spent: 35 minutes Discussed with patient daughter Leslye, and updated with patient's condition and plan of care. I answered all her questions. Due to a high probability of clinically significant, life threatening deterioration, the patient required my highest level of preparedness to intervene emergently and I personally spent this critical care time directly and personally managing the patient. This critical care time included obtaining a history; examining the patient; pulse oximetry; ordering and review of studies; arranging urgent treatment with development of a management plan; evaluation of patient's response to treatment; frequent reassessment; and discussions with other providers. It was exclusive of separately billable procedures and treating other patients and teaching time. Please see Assessment and Plan section and the rest of the note for further information on patient assessment and treatment This dictation may have been done utilizing a voice recognition system. Attempts have been made to correct errors. However, there may be uncorrected grammatical, spelling, and recognitions errors present. Subjective Date/time seen: 02/03/25 08:32 Interval history: Reason for consult: Cardiac arrest, acute respiratory failure, abdominal abscess, sepsis 02/03/2025: Patient seen and examined the ICU, remains intubated on CMV mode of ventilation, peep of 8, 90% FiO2. Sedated with fentanyl and Versed infusion, patient does not open her eyes or follow simple commands. Does not withdraw to pain. Urine output has been low, febrile with a T-max of 101.5? overnight. Remains on Levophed and vasopressin, Bobo-Synephrine has been discontinued. Patient has had multiple bowel movements overnight and required a FMS to be placed Review of Systems Review of Systems: ROS unobtainable: Yes unobtainable due to endotracheal tube, unobtainable due to medical condition and unobtainable due to mental status Exam Narrative: General: Obese female currently in no acute distress HEENT:? Pupils equal and reactive, sclera is clear, ETT in place Neck:? Supple Respiratory:? Coarse breath sounds bilaterally, decreased at bases, no wheezing, adequate air entry Cardiac:? S1-S2 normal, regular rate and rhythm Abdomen:? Soft, nontender, obese, hypoactive bowel sounds, left lower quadrant drain in place with purulent drainage Extremities:? Trace edema, palpable pedal pulse Neuro:? Patient remains intubated and sedated, does not open her eyes or follow simple commands. On 02/02 post code she did follow simple commands Skin:? No skin lesions noted Psych:? Unable to assess at this time Objective Data Vital Signs Vital Signs: Vital Signs - 24 hr 02/02/25 10:58 02/02/25 11:04 02/02/25 11:09 Temperature Pulse Rate 72 70 69 Respiratory Rate 17 16 17 Blood Pressure 119/46 L 123/50 L 134/57 L Pulse Oximetry 100 98 100 Oxygen Delivery Nasal Cannula Nasal Cannula Nasal Cannula Oxygen Flow Rate 3 3 3 Fraction of Inspired Oxygen 02/02/25 11:14 02/02/25 11:19 02/02/25 11:24 Temperature Pulse Rate 66 64 65 Respiratory Rate 16 15 14 Blood Pressure 124/55 L 121/63 120/52 L Pulse Oximetry 99 94 95 Oxygen Delivery Nasal Cannula Nasal Cannula Nasal Cannula Oxygen Flow Rate 3 3 3 Fraction of Inspired Oxygen 02/02/25 11:29 02/02/25 11:34 02/02/25 11:39 Temperature Pulse Rate 64 63 64 Respiratory Rate 14 15 14 Blood Pressure 114/48 L 111/56 L 114/56 L Pulse Oximetry 95 97 97 Oxygen Delivery Nasal Cannula Nasal Cannula Nasal Cannula Oxygen Flow Rate 3 3 3 Fraction of Inspired Oxygen 02/02/25 11:44 02/02/25 11:49 02/02/25 12:30 Temperature Pulse Rate 60 60 Respiratory Rate 16 14 Blood Pressure 111/51 L 117/49 L Pulse Oximetry 97 97 96 Oxygen Delivery Nasal Cannula Nasal Cannula Mechanical Ventilation Oxygen Flow Rate 3 3 Fraction of Inspired Oxygen 100 02/02/25 12:55 02/02/25 12:56 02/02/25 13:30 Temperature 97.9 F Pulse Rate 124 H 124 H 100 Respiratory Rate 18 18 18 Blood Pressure 97/73 L Pulse Oximetry 91 Oxygen Delivery Oxygen Flow Rate Fraction of Inspired Oxygen 02/02/25 14:00 02/02/25 14:00 02/02/25 14:14 Temperature Pulse Rate 94 97 94 Respiratory Rate 25 H Blood Pressure 81/70 L 48/29 L Pulse Oximetry 95 93 Oxygen Delivery Mechanical Ventilation Oxygen Flow Rate Fraction of Inspired Oxygen 100 02/02/25 14:35 02/02/25 15:03 02/02/25 15:09 Temperature Pulse Rate 108 H 100 102 H Respiratory Rate Blood Pressure 66/53 L 94/63 L 126/44 L Pulse Oximetry Oxygen Delivery Oxygen Flow Rate Fraction of Inspired Oxygen 02/02/25 15:11 02/02/25 15:17 02/02/25 15:31 Temperature Pulse Rate 101 H 101 H 94 Respiratory Rate 30 H Blood Pressure 122/48 L 132/61 Pulse Oximetry Oxygen Delivery Oxygen Flow Rate Fraction of Inspired Oxygen 02/02/25 15:49 02/02/25 16:00 02/02/25 16:00 Temperature Pulse Rate 96 98 83 Respiratory Rate Blood Pressure 127/59 L 133/58 L Pulse Oximetry Oxygen Delivery Oxygen Flow Rate Fraction of Inspired Oxygen 02/02/25 16:01 02/02/25 16:08 02/02/25 16:09 Temperature Pulse Rate 99 96 94 Respiratory Rate 28 H Blood Pressure 125/72 124/52 L Pulse Oximetry Oxygen Delivery Oxygen Flow Rate Fraction of Inspired Oxygen 02/02/25 16:18 02/02/25 16:28 02/02/25 16:30 Temperature Pulse Rate 87 91 90 Respiratory Rate 24 H Blood Pressure 127/52 L 125/48 L Pulse Oximetry Oxygen Delivery Oxygen Flow Rate Fraction of Inspired Oxygen 02/02/25 16:30 02/02/25 16:44 02/02/25 16:45 Temperature Pulse Rate 90 91 91 Respiratory Rate Blood Pressure 125/48 L 130/51 L 130/51 L Pulse Oximetry Oxygen Delivery Oxygen Flow Rate Fraction of Inspired Oxygen 02/02/25 16:54 02/02/25 17:24 02/02/25 17:28 Temperature Pulse Rate 88 85 96 Respiratory Rate Blood Pressure 126/50 L 125/49 L Pulse Oximetry 98 Oxygen Delivery Mechanical Ventilation Oxygen Flow Rate Fraction of Inspired Oxygen 100 02/02/25 17:46 02/02/25 18:13 02/02/25 18:14 Temperature Pulse Rate 84 83 82 Respiratory Rate 21 H Blood Pressure 128/50 L 128/56 L Pulse Oximetry Oxygen Delivery Oxygen Flow Rate Fraction of Inspired Oxygen 02/02/25 18:41 02/02/25 18:53 02/02/25 20:00 Temperature Pulse Rate 81 85 89 Respiratory Rate Blood Pressure 125/55 L 118/54 L 123/56 L Pulse Oximetry Oxygen Delivery Oxygen Flow Rate Fraction of Inspired Oxygen 02/02/25 20:00 02/02/25 20:00 02/02/25 20:00 Temperature Pulse Rate 89 89 89 Respiratory Rate 24 H 24 H Blood Pressure 123/56 L Pulse Oximetry Oxygen Delivery Oxygen Flow Rate Fraction of Inspired Oxygen 02/02/25 20:00 02/02/25 20:30 02/02/25 20:30 Temperature 101.2 F H Pulse Rate 89 89 88 Respiratory Rate 24 H Blood Pressure 140/60 140/60 Pulse Oximetry 100 Oxygen Delivery Oxygen Flow Rate Fraction of Inspired Oxygen 02/02/25 20:45 02/02/25 20:50 02/02/25 21:09 Temperature 101.2 F H Pulse Rate 86 86 87 Respiratory Rate 24 H 24 H Blood Pressure 113/52 L Pulse Oximetry 100 100 100 Oxygen Delivery Mechanical Ventilation Mechanical Ventilation Oxygen Flow Rate Fraction of Inspired Oxygen 100 90 02/02/25 21:09 02/02/25 21:14 02/02/25 21:14 Temperature Pulse Rate 87 87 88 Respiratory Rate 24 H Blood Pressure 116/52 L 116/52 L Pulse Oximetry Oxygen Delivery Oxygen Flow Rate Fraction of Inspired Oxygen 02/02/25 22:00 02/02/25 22:00 02/02/25 22:00 Temperature Pulse Rate 87 87 87 Respiratory Rate 24 H 24 H Blood Pressure 115/51 L Pulse Oximetry Oxygen Delivery Oxygen Flow Rate Fraction of Inspired Oxygen 02/02/25 22:00 02/02/25 22:00 02/02/25 22:00 Temperature 101.8 F H Pulse Rate 87 87 87 Respiratory Rate 24 H Blood Pressure 115/51 L 115/51 L Pulse Oximetry 100 Oxygen Delivery Oxygen Flow Rate Fraction of Inspired Oxygen 02/02/25 22:33 02/02/25 22:34 02/02/25 23:00 Temperature 101.5 F H Pulse Rate 87 86 87 Respiratory Rate 24 H Blood Pressure 117/53 L 118/52 L 122/56 L Pulse Oximetry 100 Oxygen Delivery Oxygen Flow Rate Fraction of Inspired Oxygen 02/02/25 23:09 02/02/25 23:15 02/02/25 23:50 Temperature 101.5 F H Pulse Rate 86 91 83 Respiratory Rate 24 H 24 H Blood Pressure 121/52 L 110/50 L Pulse Oximetry 100 100 Oxygen Delivery Mechanical Ventilation Oxygen Flow Rate Fraction of Inspired Oxygen 90 02/02/25 23:50 02/02/25 23:52 02/02/25 23:58 Temperature Pulse Rate 88 83 Respiratory Rate Blood Pressure 118/51 L Pulse Oximetry 100 Oxygen Delivery Mechanical Ventilation Oxygen Flow Rate Fraction of Inspired Oxygen 90 90 02/02/25 23:59 02/03/25 00:00 02/03/25 00:00 Temperature 101.5 F H Pulse Rate 87 83 87 Respiratory Rate 24 H Blood Pressure 114/50 L 114/50 L Pulse Oximetry 100 Oxygen Delivery Oxygen Flow Rate Fraction of Inspired Oxygen 02/03/25 00:00 02/03/25 00:00 02/03/25 00:00 Temperature Pulse Rate 83 85 85 Respiratory Rate 24 H 24 H Blood Pressure 113/50 L Pulse Oximetry Oxygen Delivery Oxygen Flow Rate Fraction of Inspired Oxygen 02/03/25 01:50 02/03/25 01:50 02/03/25 01:54 Temperature 100.5 F H Pulse Rate 78 78 79 Respiratory Rate 24 H Blood Pressure 136/58 L 136/58 L Pulse Oximetry 100 100 Oxygen Delivery Mechanical Ventilation Oxygen Flow Rate Fraction of Inspired Oxygen 90 02/03/25 01:54 02/03/25 02:00 02/03/25 02:00 Temperature 100.4 F H Pulse Rate 78 85 85 Respiratory Rate 24 H 24 H Blood Pressure 111/50 L Pulse Oximetry 100 Oxygen Delivery Oxygen Flow Rate Fraction of Inspired Oxygen 02/03/25 02:00 02/03/25 02:00 02/03/25 02:00 Temperature Pulse Rate 85 85 85 Respiratory Rate 24 H Blood Pressure 110/50 L 110/50 L Pulse Oximetry Oxygen Delivery Oxygen Flow Rate Fraction of Inspired Oxygen 02/03/25 02:00 02/03/25 02:00 02/03/25 02:45 Temperature 99.9 F H Pulse Rate 85 85 77 Respiratory Rate 24 H 24 H Blood Pressure 110/50 L 129/53 L Pulse Oximetry 100 Oxygen Delivery Oxygen Flow Rate Fraction of Inspired Oxygen 02/03/25 02:45 02/03/25 03:00 02/03/25 03:00 Temperature 99.8 F H Pulse Rate 78 78 78 Respiratory Rate 24 H Blood Pressure 129/54 L 123/52 L 123/52 L Pulse Oximetry 100 Oxygen Delivery Oxygen Flow Rate Fraction of Inspired Oxygen 02/03/25 03:15 02/03/25 03:40 02/03/25 04:00 Temperature 99.7 F H 99.1 F Pulse Rate 79 75 76 Respiratory Rate 24 H 24 H Blood Pressure 111/49 L 127/58 L 117/52 L Pulse Oximetry 100 100 Oxygen Delivery Oxygen Flow Rate Fraction of Inspired Oxygen 02/03/25 04:00 02/03/25 04:00 02/03/25 04:00 Temperature Pulse Rate 73 78 78 Respiratory Rate 24 H 24 H Blood Pressure 117/52 L Pulse Oximetry Oxygen Delivery Oxygen Flow Rate Fraction of Inspired Oxygen 02/03/25 04:00 02/03/25 04:00 02/03/25 04:00 Temperature Pulse Rate 78 78 Respiratory Rate Blood Pressure 117/52 L 117/52 L Pulse Oximetry Oxygen Delivery Oxygen Flow Rate Fraction of Inspired Oxygen 90 02/03/25 04:00 02/03/25 04:15 02/03/25 04:25 Temperature 98.8 F Pulse Rate 74 72 72 Respiratory Rate 24 H 24 H Blood Pressure 107/48 L Pulse Oximetry 100 100 Oxygen Delivery Mechanical Ventilation Oxygen Flow Rate Fraction of Inspired Oxygen 90 02/03/25 04:45 02/03/25 04:45 02/03/25 04:54 Temperature Pulse Rate 69 69 70 Respiratory Rate 24 H Blood Pressure 122/50 L 122/50 L 112/47 L Pulse Oximetry 100 Oxygen Delivery Oxygen Flow Rate Fraction of Inspired Oxygen 02/03/25 04:54 02/03/25 04:55 02/03/25 04:55 Temperature Pulse Rate 72 70 70 Respiratory Rate 24 H 24 H Blood Pressure 112/47 L Pulse Oximetry Oxygen Delivery Oxygen Flow Rate Fraction of Inspired Oxygen 02/03/25 05:00 02/03/25 05:15 02/03/25 05:50 Temperature Pulse Rate 71 82 Respiratory Rate 26 H Blood Pressure Pulse Oximetry 100 Oxygen Delivery Mechanical Ventilation Mechanical Ventilation Oxygen Flow Rate Fraction of Inspired Oxygen 90 75 02/03/25 06:00 02/03/25 06:00 02/03/25 06:00 Temperature 98.9 F Pulse Rate 72 72 72 Respiratory Rate 24 H Blood Pressure 127/53 L 127/53 L Pulse Oximetry 100 Oxygen Delivery Oxygen Flow Rate Fraction of Inspired Oxygen 02/03/25 06:00 02/03/25 06:00 02/03/25 06:00 Temperature Pulse Rate 72 72 72 Respiratory Rate 24 H Blood Pressure 127/53 L 127/53 L Pulse Oximetry Oxygen Delivery Oxygen Flow Rate Fraction of Inspired Oxygen 02/03/25 06:00 02/03/25 08:00 02/03/25 08:00 Temperature 97.8 F Pulse Rate 72 65 67 Respiratory Rate 24 H 10 L Blood Pressure 129/53 L 127/54 L Pulse Oximetry 100 Oxygen Delivery Oxygen Flow Rate Fraction of Inspired Oxygen 02/03/25 08:04 02/03/25 08:04 Temperature Pulse Rate 70 70 Respiratory Rate 20 Blood Pressure Pulse Oximetry 99 Oxygen Delivery Mechanical Ventilation Oxygen Flow Rate Fraction of Inspired Oxygen 60 Intake/Output Intake/Output: Intake & Output 01/31/25 02/01/25 02/02/25 02/03/25 23:59 23:59 23:59 23:59 Intake Total 1670 1320 2129.4 1171.4 Output Total 1275 1450 735 500 Balance 395 -130 1394.4 671.4 Meds/Results Medications: Active Medications Generic Name Dose Route Start Last Admin Trade Name Freq PRN Reason Stop Dose Admin Acetaminophen 650 mg 01/25/25 20:51 02/01/25 19:04 Acetaminophen 325 Mg Tablet PO 650 mg Q4H PRN Administration Headache Dextrose 12.5 gm 01/25/25 20:46 01/26/25 11:40 Dextrose 50% 25 Gm/50 Ml Syringe IV PUSH 12.5 gm PRN PRN Administration Hypoglycemia Protocol Fentanyl Citrate 25 mcg 01/25/25 20:51 02/02/25 01:12 Fentanyl Citrate Inj (*Crx) 100 Mcg/2 Ml Vial IV PUSH 25 mcg Q4H PRN Administration Pain Rated 6 or Greater Glucagon 1 mg 01/25/25 20:46 Glucagon For Inj 1 Mg Vial IM PRN PRN Hypoglycemia Protocol Glucose 15 gm 01/25/25 20:46 Glucose Oral Gel 15 Gm Of Glucse In 37.5 Gm Tube PO PRN PRN Hypoglycemia Protocol Hydrocortisone Sodium Succinate 100 mg 02/02/25 14:20 02/03/25 04:55 Hydrocortisone Sodium Succinate 100 Mg/2 Ml Vial IV PUSH 100 mg Q8HR KANDIS Administration Dextrose 1,000 mls @ 100 mls/hr 01/25/25 20:46 Dextrose 5% 1,000 Ml IVPB PRN PRN Hypoglycemia Protocol Meropenem 1 gm in 100 mls @ 200 mls/hr 01/29/25 13:00 02/03/25 05:35 IVPB Infused Q8HR KANDIS Infusion Doxycycline Hyclate 100 mg in 100 mls @ 100 mls/hr 02/02/25 11:00 02/02/25 21:30 Vibramycin 100 Mg/Ns 100 Ml IVPB Infused Q12HR KANDIS Infusion Fentanyl Citrate 2,500 mcg in 250 mls @ 15 mls/hr 02/02/25 12:55 02/03/25 06:00 Fentanyl 2,500 Mcg/Ns 250 Ml IV CONT 150 mcg/hr .[id number] KANDIS 15 mls/hr Titration Protocol 150 MCG/HR Midazolam HCl 100 mg in 100 mls @ 6 mls/hr 02/02/25 12:55 02/03/25 06:00 Versed 100 Mg/Ns 100 Ml IV CONT 6 mg/hr .[id number] KANDIS 6 mls/hr Titration Protocol 6 MG/HR Albumin Human 100 mls @ 60 mls/hr 02/02/25 14:00 02/03/25 08:21 Albutein IVPB 02/03/25 09:39 60 mls/hr Q6H KANDIS Administration Norepinephrine Bitartrate 8 mg in 250 mls @ 18.75 mls/hr 02/02/25 14:10 02/03/25 06:00 Levophed 8 Mg/D5w 250 Ml IV CONT 10 mcg/min .[id number] KANDIS 18.75 mls/hr Titration Protocol 10 MCG/MIN Vasopressin 100 units/ 100 mls @ 1.8 mls/hr 02/02/25 14:20 02/03/25 08:00 Dextrose IV CONT 0.03 units/min .[id number] KANDIS 1.8 mls/hr Titration Protocol 0.03 UNITS/MIN Phenylephrine HCl 50 mg/ 250 ml in 250 mls @ 0 mls/hr 02/02/25 14:55 02/03/25 06:00 Dextrose IV CONT 0 mcg/min .Q0M KANDIS 0 mls/hr Titration Protocol 0 MCG/MIN Vancomycin HCl 1,500 mg in 500 mls @ 250 mls/hr 02/02/25 22:00 02/03/25 00:30 Vancomycin 1,500 Mg/Ns 500 Ml IVPB Infused Q18H KANDIS Infusion Sodium Chloride 250 mls @ 30 mls/hr 02/03/25 07:28 Normal Saline Iv IV CONT 02/03/25 15:47 .Q8H20M STA Potassium Chloride 100 mls @ 25 mls/hr 02/03/25 07:30 Kcl 40 Meq/Water 100 Ml IVPB 02/03/25 11:29 ONCE ONE Insulin Aspart 4 - 8 units 02/02/25 18:00 02/03/25 06:41 Insulin Aspart (*Bkc) 100 Units/Ml SUB-Q 4 units Q6H KANDIS Administration Protocol Insulin Glargine 10 units 01/29/25 21:00 02/01/25 21:11 Insulin Glargine (*Bkc) 100 Units/Ml SUB-Q 10 units HS KANDIS Administration Ipratropium [place] 0.5 mg 02/02/25 14:20 02/03/25 08:03 Ipratropium Br 0.02% Inh Soln 0.5 Mg/2.5 Ml Vial INHALATION 0.5 mg Q6HRT KANDIS Administration Lactobacillus Acidophilus 1 pkt 02/03/25 09:00 Acidophilus Packet 1 Pkt Packet PO QID KANDIS Levalbuterol HCl 0.63 mg 02/02/25 14:20 02/03/25 08:03 Levalbuterol Neb 1.25 Mg/3 Ml INHALATION 0.63 mg Q6HRT KANDIS Administration Midazolam HCl 2 mg 02/02/25 12:51 02/02/25 12:43 Midazolam Hcl (*Crx) 2 Mg/2 Ml Vial IV PUSH 2 mg PRN PRN Administration Sedation Multi-Ingred Cream/Lotion/Oil/Oint 1 applic 02/02/25 21:00 02/02/25 20:28 Mineral Oil/White Petrolatum Ointment EACH EYE 1 applic Q12HR KANDIS Administration Ondansetron HCl 4 mg 01/25/25 20:51 01/31/25 21:23 Ondansetron Inj 4 Mg/2 Ml Vial IV PUSH 4 mg Q6H PRN Administration Nausea And Vomiting Pantoprazole Sodium 40 mg 02/03/25 09:00 02/03/25 08:22 Pantoprazole Sodium Iv 40 Mg Vial IV PUSH 40 mg QAM KANDIS Administration Sodium Chloride 10 ml 02/02/25 14:00 02/03/25 04:56 Central Line Flush IV PUSH 10 ml Q8HR KANDIS Administration Sodium Chloride 20 ml 02/02/25 13:47 Central Line Flush IV PUSH PRN PRN after blood draws Radiology Results: ITS Impressions Pelvis CT 01/26/25 14:17 IMPRESSION: 1. No significant change in a bilobed gas and fluid containing abscess in the deep pelvis. Patient canceled the planned percutaneous abscess drainage catheter placement due to discomfort despite attempts at repositioning. Abdomen/Pelvis CT 01/29/25 09:28 Impression: Stable large bilobed multilocular abscess in the pelvis extensively involving the distal sigmoid colon and rectum. Stable wall thickening of the distal sigmoid colon and rectum. Small right pleural effusion with right basilar atelectatic change. Cholelithiasis. Nephrolithiasis bilaterally, as detailed above. Catheter Placement CT 02/02/25 16:48 IMPRESSION: 1. Technically successful CT-guided drainage catheter placement with likely translocation and overwhelming sepsis following initial aspiration with subsequent cardiac and respiratory arrest. 2. 12-14 mL fluid was sent for aerobic and anaerobic cultures. Please see separate CODE BLUE flow sheet for additional details of the CODE BLUE portion of the case. Chest X-Ray 02/03/25 06:15 Impression: Mild pulmonary edema pattern with small bilateral pleural effusions. Support tubes, as above. Labs Labs: Laboratory Results - last 24 hr 02/02/25 02/02/25 02/02/25 05:35 13:38 13:53 WBC 16.7 H RBC 3.44 L Hgb 8.0 L Hct 29.0 L MCV 84.3 D MCH 23.3 L MCHC 27.6 L RDW 16.7 H Plt Count 404 H MPV 8.8 Immature Gran % (Auto) Not Reportable Neut % (Auto) Not Reportable Lymph % (Auto) Not Reportable [place] % (Auto) Not Reportable Eos % (Auto) Not Reportable Baso % (Auto) Not Reportable Lymph # (Auto) Not Reportable [place] # (Auto) Not Reportable Eos # (Auto) Not Reportable Baso # (Auto) Not Reportable Abs Immat Gran (auto) Not Reportable Absolute Neuts (auto) Not Reportable Absolute Nucleated RBC Not Reportable Total Counted 100 Neutrophils % (Manual) 77 H Band Neutrophils % 9 H Lymphocytes % (Manual) 14 L Monocytes % (Manual) Eosinophils % (Manual) Nucleated RBC % Not Reportable Abs Neuts (Manual) 14.36 H Abs Lymphs (Manual) 2.33 Abs Monocytes (Manual) Absolute Eos (Manual) Atypical Lymphocytes Present Platelet Estimate Slightly increased Hypochromasia 1+ Anisocytosis 1+ Ovalocytes Schistocytes None seen PT 22.6 H INR 2.0 APTT 45.3 H Puncture Site Left radial ABG pH 7.297 L* ABG pCO2 44.9 ABG pO2 65.0 L ABG PO2/FiO2 Ratio 0.65 ABG HCO3 21.4 L ABG O2 Saturation 90.6 L ABG O2 Content 11.4 L ABG Base Excess -4.8 A-a Gradient 606.7 Oxyhemoglobin 87.3 L* Carboxyhemoglobin 1.0 Methemoglobin 0.0 Reduced Hemoglobin 11.7 H Total Hemoglobin 9.2 L O2 Delivery Device Ventilator O2 Liters/Min Not Reportable Minute Volume Not Reportable Vent Rate 20 Vent Mode Cmv FiO2 100 Tidal Volume 450 PEEP 8 Peak Inspir Pressure Not Reportable Pressure Support Not Reportable Sodium 136 L Potassium 3.5 Chloride 101 Carbon Dioxide 26 Anion Gap 9 BUN 12 Creatinine 0.95 Estim Creat Clear Calc 54 Estimated GFR 58 L Glucose 191 H POC Capillary Glucose Lactic Acid 9.1 H* Calcium 7.9 L Phosphorus 5.1 H Magnesium 2.1 Iron 22 L TIBC 198 L % Saturation 11 L Ferritin 69.70 Total Bilirubin 0.7 AST 62 H ALT 26 Alkaline Phosphatase 373 H Troponin I 0.079 H* C-Reactive Protein 8.9 H Total Protein 6.0 L Albumin 2.1 L Urine Color Urine Appearance Urine pH Ur Specific [place] Urine Protein Urine Glucose (UA) Urine Ketones Ur Blood (Man) Urine Nitrate Urine Bilirubin Urine Urobilinogen Leukocyte Esterase Rfl Urine RBC Urine WBC Ur Squamous Epith Cells Urine Bacteria Urine Casts Nasal MRSA (PCR) Vancomycin Trough Crossmatch 02/02/25 02/02/25 02/02/25 18:05 18:08 18:12 WBC RBC Hgb Hct MCV MCH MCHC RDW Plt Count MPV Immature Gran % (Auto) Neut % (Auto) Lymph % (Auto) [place] % (Auto) Eos % (Auto) Baso % (Auto) Lymph # (Auto) [place] # (Auto) Eos # (Auto) Baso # (Auto) Abs Immat Gran (auto) Absolute Neuts (auto) Absolute Nucleated RBC Total Counted Neutrophils % (Manual) Band Neutrophils % Lymphocytes % (Manual) Monocytes % (Manual) Eosinophils % (Manual) Nucleated RBC % Abs Neuts (Manual) Abs Lymphs (Manual) Abs Monocytes (Manual) Absolute Eos (Manual) Atypical Lymphocytes Platelet Estimate Hypochromasia Anisocytosis Ovalocytes Schistocytes PT INR APTT Puncture Site ABG pH ABG pCO2 ABG pO2 ABG PO2/FiO2 Ratio ABG HCO3 ABG O2 Saturation ABG O2 Content ABG Base Excess A-a Gradient Oxyhemoglobin Carboxyhemoglobin Methemoglobin Reduced Hemoglobin Total Hemoglobin O2 Delivery Device O2 Liters/Min Minute Volume Vent Rate Vent Mode FiO2 Tidal Volume PEEP Peak Inspir Pressure Pressure Support Sodium Potassium Chloride Carbon Dioxide Anion Gap BUN Creatinine Estim Creat Clear Calc Estimated GFR Glucose POC Capillary Glucose 165 H Lactic Acid 8.5 H* Calcium Phosphorus Magnesium Iron TIBC % Saturation Ferritin Total Bilirubin AST ALT Alkaline Phosphatase Troponin I C-Reactive Protein Total Protein Albumin Urine Color Dark yellow Urine Appearance Turbid H Urine pH 5.0 Ur Specific [place] > 1.045 H Urine Protein 3+ H Urine Glucose (UA) Trace H Urine Ketones Trace H Ur Blood (Man) 3+ H Urine Nitrate Negative Urine Bilirubin 1+ H Urine Urobilinogen 1.0 Leukocyte Esterase Rfl Trace H Urine RBC >100 H Urine WBC 51-100 H Ur Squamous Epith Cells Moderate Urine Bacteria Rare Urine Casts >20 Nasal MRSA (PCR) Detected A* Vancomycin Trough Crossmatch 02/02/25 02/02/25 02/03/25 20:43 23:08 05:01 WBC RBC Hgb Hct MCV MCH MCHC RDW Plt Count MPV Immature Gran % (Auto) Neut % (Auto) Lymph % (Auto) [place] % (Auto) Eos % (Auto) Baso % (Auto) Lymph # (Auto) [place] # (Auto) Eos # (Auto) Baso # (Auto) Abs Immat Gran (auto) Absolute Neuts (auto) Absolute Nucleated RBC Total Counted Neutrophils % (Manual) Band Neutrophils % Lymphocytes % (Manual) Monocytes % (Manual) Eosinophils % (Manual) Nucleated RBC % Abs Neuts (Manual) Abs Lymphs (Manual) Abs Monocytes (Manual) Absolute Eos (Manual) Atypical Lymphocytes Platelet Estimate Hypochromasia Anisocytosis Ovalocytes Schistocytes PT INR APTT Puncture Site Artline ABG pH 7.549 H* ABG pCO2 25.9 L ABG pO2 230.2 H ABG PO2/FiO2 Ratio 2.56 ABG HCO3 22.1 ABG O2 Saturation 99.6 ABG O2 Content 10.2 L ABG Base Excess -0.1 A-a Gradient 385.0 Oxyhemoglobin 98.9 Carboxyhemoglobin 0.8 Methemoglobin 0.3 Reduced Hemoglobin 0.0 Total Hemoglobin 6.9 L* O2 Delivery Device Ventilator O2 Liters/Min Minute Volume Not Reportable Vent Rate 24 Vent Mode Cmv FiO2 90 Tidal Volume 360 PEEP 8 Peak Inspir Pressure Not Reportable Pressure Support Not Reportable Sodium Potassium Chloride Carbon Dioxide Anion Gap BUN Creatinine Estim Creat Clear Calc Estimated GFR Glucose POC Capillary Glucose 207 H Lactic Acid Calcium Phosphorus Magnesium Iron TIBC % Saturation Ferritin Total Bilirubin AST ALT Alkaline Phosphatase Troponin I C-Reactive Protein Total Protein Albumin Urine Color Urine Appearance Urine pH Ur Specific [place] Urine Protein Urine Glucose (UA) Urine Ketones Ur Blood (Man) Urine Nitrate Urine Bilirubin Urine Urobilinogen Leukocyte Esterase Rfl Urine RBC Urine WBC Ur Squamous Epith Cells Urine Bacteria Urine Casts Nasal MRSA (PCR) Vancomycin Trough 11.9 Crossmatch 02/03/25 02/03/25 02/03/25 05:02 06:38 08:09 WBC 70.2 H* 64.0 H* RBC 2.65 L 2.63 L Hgb 6.5 L* 6.3 L* Hct 20.7 L* 20.5 L* MCV 78.1 L D 77.9 L MCH 24.5 L D 24.0 L MCHC 31.4 L 30.7 L RDW 16.8 H 16.7 H Plt Count 270 245 MPV 9.4 9.0 Immature Gran % (Auto) Not Reportable Neut % (Auto) Not Reportable Lymph % (Auto) Not Reportable [place] % (Auto) Not Reportable Eos % (Auto) Not Reportable Baso % (Auto) Not Reportable Lymph # (Auto) Not Reportable [place] # (Auto) Not Reportable Eos # (Auto) Not Reportable Baso # (Auto) Not Reportable Abs Immat Gran (auto) Not Reportable Absolute Neuts (auto) Not Reportable Absolute Nucleated RBC Not Reportable Total Counted 100 Neutrophils % (Manual) 88 H Band Neutrophils % 7 H Lymphocytes % (Manual) 1 L Monocytes % (Manual) 3 Eosinophils % (Manual) 1 Nucleated RBC % Not Reportable Abs Neuts (Manual) 66.69 H Abs Lymphs (Manual) 0.70 L Abs Monocytes (Manual) 2.10 H Absolute Eos (Manual) 0.70 H Atypical Lymphocytes Platelet Estimate Adequate Hypochromasia 1+ Anisocytosis Ovalocytes 1+ Schistocytes None seen PT 22.5 H INR 1.9 APTT 47.0 H Puncture Site ABG pH ABG pCO2 ABG pO2 ABG PO2/FiO2 Ratio ABG HCO3 ABG O2 Saturation ABG O2 Content ABG Base Excess A-a Gradient Oxyhemoglobin Carboxyhemoglobin Methemoglobin Reduced Hemoglobin Total Hemoglobin O2 Delivery Device O2 Liters/Min Minute Volume Vent Rate Vent Mode FiO2 Tidal Volume PEEP Peak Inspir Pressure Pressure Support Sodium 136 L Potassium 3.1 L Chloride 97 L Carbon Dioxide 27 Anion Gap 12 BUN 17 Creatinine 1.31 H Estim Creat Clear Calc 40 Estimated GFR 40 L Glucose 233 H POC Capillary Glucose Lactic Acid 3.9 H 3.0 H Calcium 7.4 L Phosphorus 3.5 Magnesium 1.8 Iron TIBC % Saturation Ferritin Total Bilirubin 1.6 H AST 39 H ALT 16 Alkaline Phosphatase 108 Troponin I C-Reactive Protein Total Protein 6.0 L Albumin 2.6 L Urine Color Urine Appearance Urine pH Ur Specific [place] Urine Protein Urine Glucose (UA) Urine Ketones Ur Blood (Man) Urine Nitrate Urine Bilirubin Urine Urobilinogen Leukocyte Esterase Rfl Urine RBC Urine WBC Ur Squamous Epith Cells Urine Bacteria Urine Casts Nasal MRSA (PCR) Vancomycin Trough Crossmatch See Detail Quality VTE Prophylaxis VTE prophylaxis: pharmacologic ordered
[2025-02-03] MEDS: PHYTONADIONE ADULT INJ 10 MG in DEXTROSE 5% IN WATER 50 ML 68 MG IVPB (08:38)
[2025-02-03] MEDS: KCL 40 MEQ/WATER 100 ML 100 ML 25 ML IVPB (08:49)
[2025-02-03] MEDS: MINERAL OIL/WHITE PETROLATUM OINTMENT 1 APPLIC EACH EYE ×2 (08:51→20:04)
[2025-02-03] MEDS: ACIDOPHILUS PACKET 1 PKT PACKET PO ×4 (08:52→20:03)
[2025-02-03] MEDS: DOXYCYCLINE 100 MG/NS 100 ML 100 MG/100 ML BAG IVPB ×2 (09:18→20:03)
[2025-02-03] MEDS: LACTATED RINGERS 1,000 ML 75 ML IV CONT (09:18)
--- NOTE | 2025-02-03 11:06 | P.PNGS_ITS ---
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 Subjective Subjective Date/Time Seen: 02/03/25 11:06 Interval history: events from yesterday noted, currently intubated and sedated Review of Systems Review of Systems: ROS unobtainable: Yes unobtainable due to endotracheal tube Exam Narrative: intubated, sedated Resp: Auscultation: diminished lung sounds Cardio: Rate: regular rate Rhythm: regular rhythm GI: Inspection: normal to inspection and non-distended GI Palp: Yes Soft to palpation Other: drain with copious amount of purulent material Objective Data Vital Signs Vital Signs: Vital Signs - 24 hr 02/02/25 11:09 02/02/25 11:14 02/02/25 11:19 Temperature Pulse Rate 69 66 64 Respiratory Rate 17 16 15 Blood Pressure 134/57 L 124/55 L 121/63 Pulse Oximetry 100 99 94 Oxygen Delivery Nasal Cannula Nasal Cannula Nasal Cannula Oxygen Flow Rate 3 3 3 Fraction of Inspired Oxygen 02/02/25 11:24 02/02/25 11:29 02/02/25 11:34 Temperature Pulse Rate 65 64 63 Respiratory Rate 14 14 15 Blood Pressure 120/52 L 114/48 L 111/56 L Pulse Oximetry 95 95 97 Oxygen Delivery Nasal Cannula Nasal Cannula Nasal Cannula Oxygen Flow Rate 3 3 3 Fraction of Inspired Oxygen 02/02/25 11:39 02/02/25 11:44 02/02/25 11:49 Temperature Pulse Rate 64 60 60 Respiratory Rate 14 16 14 Blood Pressure 114/56 L 111/51 L 117/49 L Pulse Oximetry 97 97 97 Oxygen Delivery Nasal Cannula Nasal Cannula Nasal Cannula Oxygen Flow Rate 3 3 3 Fraction of Inspired Oxygen 02/02/25 12:30 02/02/25 12:55 02/02/25 12:56 Temperature Pulse Rate 124 H 124 H Respiratory Rate 18 18 Blood Pressure Pulse Oximetry 96 Oxygen Delivery Mechanical Ventilation Oxygen Flow Rate Fraction of Inspired Oxygen 100 02/02/25 13:30 02/02/25 14:00 02/02/25 14:00 Temperature 36.6 C Pulse Rate 100 94 97 Respiratory Rate 18 25 H Blood Pressure 97/73 L 81/70 L Pulse Oximetry 91 95 93 Oxygen Delivery Mechanical Ventilation Oxygen Flow Rate Fraction of Inspired Oxygen 100 02/02/25 14:14 02/02/25 14:35 02/02/25 15:03 Temperature Pulse Rate 94 108 H 100 Respiratory Rate Blood Pressure 48/29 L 66/53 L 94/63 L Pulse Oximetry Oxygen Delivery Oxygen Flow Rate Fraction of Inspired Oxygen 02/02/25 15:09 02/02/25 15:11 02/02/25 15:17 Temperature Pulse Rate 102 H 101 H 101 H Respiratory Rate 30 H Blood Pressure 126/44 L 122/48 L Pulse Oximetry Oxygen Delivery Oxygen Flow Rate Fraction of Inspired Oxygen 02/02/25 15:31 02/02/25 15:49 02/02/25 16:00 Temperature Pulse Rate 94 96 98 Respiratory Rate Blood Pressure 132/61 127/59 L 133/58 L Pulse Oximetry Oxygen Delivery Oxygen Flow Rate Fraction of Inspired Oxygen 02/02/25 16:00 02/02/25 16:01 02/02/25 16:08 Temperature Pulse Rate 83 99 96 Respiratory Rate 28 H Blood Pressure 125/72 Pulse Oximetry Oxygen Delivery Oxygen Flow Rate Fraction of Inspired Oxygen 02/02/25 16:09 02/02/25 16:18 02/02/25 16:28 Temperature Pulse Rate 94 87 91 Respiratory Rate 24 H Blood Pressure 124/52 L 127/52 L Pulse Oximetry Oxygen Delivery Oxygen Flow Rate Fraction of Inspired Oxygen 02/02/25 16:30 02/02/25 16:30 02/02/25 16:44 Temperature Pulse Rate 90 90 91 Respiratory Rate Blood Pressure 125/48 L 125/48 L 130/51 L Pulse Oximetry Oxygen Delivery Oxygen Flow Rate Fraction of Inspired Oxygen 02/02/25 16:45 02/02/25 16:54 02/02/25 17:24 Temperature Pulse Rate 91 88 85 Respiratory Rate Blood Pressure 130/51 L 126/50 L 125/49 L Pulse Oximetry Oxygen Delivery Oxygen Flow Rate Fraction of Inspired Oxygen 02/02/25 17:28 02/02/25 17:46 02/02/25 18:13 Temperature Pulse Rate 96 84 83 Respiratory Rate Blood Pressure 128/50 L 128/56 L Pulse Oximetry 98 Oxygen Delivery Mechanical Ventilation Oxygen Flow Rate Fraction of Inspired Oxygen 100 02/02/25 18:14 02/02/25 18:41 02/02/25 18:53 Temperature Pulse Rate 82 81 85 Respiratory Rate 21 H Blood Pressure 125/55 L 118/54 L Pulse Oximetry Oxygen Delivery Oxygen Flow Rate Fraction of Inspired Oxygen 02/02/25 20:00 02/02/25 20:00 02/02/25 20:00 Temperature Pulse Rate 89 89 89 Respiratory Rate 24 H 24 H Blood Pressure 123/56 L Pulse Oximetry Oxygen Delivery Oxygen Flow Rate Fraction of Inspired Oxygen 02/02/25 20:00 02/02/25 20:00 02/02/25 20:30 Temperature Pulse Rate 89 89 89 Respiratory Rate Blood Pressure 123/56 L 140/60 Pulse Oximetry Oxygen Delivery Oxygen Flow Rate Fraction of Inspired Oxygen 02/02/25 20:30 02/02/25 20:45 02/02/25 20:50 Temperature 38.4 C H 38.4 C H Pulse Rate 88 86 86 Respiratory Rate 24 H 24 H 24 H Blood Pressure 140/60 113/52 L Pulse Oximetry 100 100 100 Oxygen Delivery Mechanical Ventilation Oxygen Flow Rate Fraction of Inspired Oxygen 100 02/02/25 21:09 02/02/25 21:09 02/02/25 21:14 Temperature Pulse Rate 87 87 87 Respiratory Rate 24 H Blood Pressure 116/52 L Pulse Oximetry 100 Oxygen Delivery Mechanical Ventilation Oxygen Flow Rate Fraction of Inspired Oxygen 90 02/02/25 21:14 02/02/25 22:00 02/02/25 22:00 Temperature Pulse Rate 88 87 87 Respiratory Rate 24 H Blood Pressure 116/52 L 115/51 L Pulse Oximetry Oxygen Delivery Oxygen Flow Rate Fraction of Inspired Oxygen 02/02/25 22:00 02/02/25 22:00 02/02/25 22:00 Temperature 38.8 C H Pulse Rate 87 87 87 Respiratory Rate 24 H 24 H Blood Pressure 115/51 L 115/51 L Pulse Oximetry 100 Oxygen Delivery Oxygen Flow Rate Fraction of Inspired Oxygen 02/02/25 22:00 02/02/25 22:33 02/02/25 22:34 Temperature Pulse Rate 87 87 86 Respiratory Rate Blood Pressure 117/53 L 118/52 L Pulse Oximetry Oxygen Delivery Oxygen Flow Rate Fraction of Inspired Oxygen 02/02/25 23:00 02/02/25 23:09 02/02/25 23:15 Temperature 38.6 C H 38.6 C H Pulse Rate 87 86 91 Respiratory Rate 24 H 24 H Blood Pressure 122/56 L 121/52 L 110/50 L Pulse Oximetry 100 100 Oxygen Delivery Oxygen Flow Rate Fraction of Inspired Oxygen 02/02/25 23:50 02/02/25 23:50 02/02/25 23:52 Temperature Pulse Rate 83 88 Respiratory Rate 24 H Blood Pressure Pulse Oximetry 100 100 Oxygen Delivery Mechanical Ventilation Mechanical Ventilation Oxygen Flow Rate Fraction of Inspired Oxygen 90 90 90 02/02/25 23:58 02/02/25 23:59 02/03/25 00:00 Temperature 38.6 C H Pulse Rate 83 87 83 Respiratory Rate 24 H Blood Pressure 118/51 L 114/50 L Pulse Oximetry 100 Oxygen Delivery Oxygen Flow Rate Fraction of Inspired Oxygen 02/03/25 00:00 02/03/25 00:00 02/03/25 00:00 Temperature Pulse Rate 87 83 85 Respiratory Rate 24 H 24 H Blood Pressure 114/50 L Pulse Oximetry Oxygen Delivery Oxygen Flow Rate Fraction of Inspired Oxygen 02/03/25 00:00 02/03/25 01:50 02/03/25 01:50 Temperature 38.1 C H Pulse Rate 85 78 78 Respiratory Rate 24 H Blood Pressure 113/50 L 136/58 L 136/58 L Pulse Oximetry 100 Oxygen Delivery Oxygen Flow Rate Fraction of Inspired Oxygen 02/03/25 01:54 02/03/25 01:54 02/03/25 02:00 Temperature Pulse Rate 79 78 85 Respiratory Rate 24 H Blood Pressure Pulse Oximetry 100 Oxygen Delivery Mechanical Ventilation Oxygen Flow Rate Fraction of Inspired Oxygen 90 02/03/25 02:00 02/03/25 02:00 02/03/25 02:00 Temperature 38.0 C H Pulse Rate 85 85 85 Respiratory Rate 24 H Blood Pressure 111/50 L 110/50 L 110/50 L Pulse Oximetry 100 Oxygen Delivery Oxygen Flow Rate Fraction of Inspired Oxygen 02/03/25 02:00 02/03/25 02:00 02/03/25 02:00 Temperature Pulse Rate 85 85 85 Respiratory Rate 24 H 24 H Blood Pressure 110/50 L Pulse Oximetry Oxygen Delivery Oxygen Flow Rate Fraction of Inspired Oxygen 02/03/25 02:45 02/03/25 02:45 02/03/25 03:00 Temperature 37.7 C H Pulse Rate 77 78 78 Respiratory Rate 24 H Blood Pressure 129/53 L 129/54 L 123/52 L Pulse Oximetry 100 Oxygen Delivery Oxygen Flow Rate Fraction of Inspired Oxygen 02/03/25 03:00 02/03/25 03:15 02/03/25 03:40 Temperature 37.7 C H 37.6 C H Pulse Rate 78 79 75 Respiratory Rate 24 H 24 H Blood Pressure 123/52 L 111/49 L 127/58 L Pulse Oximetry 100 100 Oxygen Delivery Oxygen Flow Rate Fraction of Inspired Oxygen 02/03/25 04:00 02/03/25 04:00 02/03/25 04:00 Temperature 37.3 C Pulse Rate 76 73 78 Respiratory Rate 24 H 24 H Blood Pressure 117/52 L 117/52 L Pulse Oximetry 100 Oxygen Delivery Oxygen Flow Rate Fraction of Inspired Oxygen 02/03/25 04:00 02/03/25 04:00 02/03/25 04:00 Temperature Pulse Rate 78 78 78 Respiratory Rate 24 H Blood Pressure 117/52 L 117/52 L Pulse Oximetry Oxygen Delivery Oxygen Flow Rate Fraction of Inspired Oxygen 02/03/25 04:00 02/03/25 04:00 02/03/25 04:15 Temperature 37.1 C Pulse Rate 74 72 Respiratory Rate 24 H Blood Pressure 107/48 L Pulse Oximetry 100 Oxygen Delivery Oxygen Flow Rate Fraction of Inspired Oxygen 90 02/03/25 04:25 02/03/25 04:45 02/03/25 04:45 Temperature Pulse Rate 72 69 69 Respiratory Rate 24 H 24 H Blood Pressure 122/50 L 122/50 L Pulse Oximetry 100 100 Oxygen Delivery Mechanical Ventilation Oxygen Flow Rate Fraction of Inspired Oxygen 90 02/03/25 04:54 02/03/25 04:54 02/03/25 04:55 Temperature Pulse Rate 70 72 70 Respiratory Rate 24 H Blood Pressure 112/47 L 112/47 L Pulse Oximetry Oxygen Delivery Oxygen Flow Rate Fraction of Inspired Oxygen 02/03/25 04:55 02/03/25 05:00 02/03/25 05:15 Temperature Pulse Rate 70 71 82 Respiratory Rate 24 H 26 H Blood Pressure Pulse Oximetry 100 Oxygen Delivery Mechanical Ventilation Oxygen Flow Rate Fraction of Inspired Oxygen 90 04/30/25 05:50 02/03/25 06:00 02/03/25 06:00 Temperature 37.2 C Pulse Rate 72 72 Respiratory Rate 24 H Blood Pressure 127/53 L Pulse Oximetry 100 Oxygen Delivery Mechanical Ventilation Oxygen Flow Rate Fraction of Inspired Oxygen 75 02/03/25 06:00 02/03/25 06:00 02/03/25 06:00 Temperature Pulse Rate 72 72 72 Respiratory Rate 24 H Blood Pressure 127/53 L 127/53 L Pulse Oximetry Oxygen Delivery Oxygen Flow Rate Fraction of Inspired Oxygen 02/03/25 06:00 02/03/25 06:00 02/03/25 08:00 Temperature 36.6 C Pulse Rate 72 72 65 Respiratory Rate 24 H 24 H Blood Pressure 127/53 L 129/53 L Pulse Oximetry 100 Oxygen Delivery Oxygen Flow Rate Fraction of Inspired Oxygen 02/03/25 08:00 02/03/25 08:00 02/03/25 08:00 Temperature Pulse Rate 67 67 67 Respiratory Rate 24 H Blood Pressure 127/54 L 127/54 L Pulse Oximetry Oxygen Delivery Oxygen Flow Rate Fraction of Inspired Oxygen 02/03/25 08:00 02/03/25 08:00 02/03/25 08:00 Temperature Pulse Rate 67 Respiratory Rate 24 H Blood Pressure Pulse Oximetry 97 Oxygen Delivery Mechanical Ventilation Oxygen Flow Rate Fraction of Inspired Oxygen 60 60 02/03/25 08:00 02/03/25 08:00 02/03/25 08:04 Temperature Pulse Rate 67 65 70 Respiratory Rate Blood Pressure 129/53 L Pulse Oximetry 99 Oxygen Delivery Mechanical Ventilation Oxygen Flow Rate Fraction of Inspired Oxygen 60 02/03/25 08:04 02/03/25 09:10 02/03/25 09:25 Temperature Pulse Rate 70 73 71 Respiratory Rate 20 Blood Pressure 129/50 L 124/48 L Pulse Oximetry Oxygen Delivery Oxygen Flow Rate Fraction of Inspired Oxygen 02/03/25 10:00 02/03/25 10:00 02/03/25 10:00 Temperature Pulse Rate 70 70 70 Respiratory Rate 20 20 Blood Pressure 118/48 L Pulse Oximetry Oxygen Delivery Oxygen Flow Rate Fraction of Inspired Oxygen 02/03/25 10:00 02/03/25 10:00 02/03/25 10:00 Temperature 36.5 C Pulse Rate 70 70 70 Respiratory Rate 20 Blood Pressure 120/48 L 120/48 L 120/48 L Pulse Oximetry 97 Oxygen Delivery Oxygen Flow Rate Fraction of Inspired Oxygen 02/03/25 10:06 Temperature Pulse Rate 70 Respiratory Rate Blood Pressure Pulse Oximetry Oxygen Delivery Oxygen Flow Rate Fraction of Inspired Oxygen Intake/Output Intake/Output: Intake & Output 01/31/25 02/01/25 02/02/25 02/03/25 23:59 23:59 23:59 23:59 Intake Total 1670 1320 2129.4 1532.8 Output Total 1275 1450 735 500 Balance 395 -130 1394.4 1032.8 Meds/Results Medications: Active Medications Generic Name Dose Route Start Last Admin Trade Name Freq PRN Reason Stop Dose Admin Acetaminophen 650 mg 01/25/25 20:51 02/01/25 19:04 Acetaminophen 325 Mg Tablet PO 650 mg Q4H PRN Administration Headache Dextrose 12.5 gm 01/25/25 20:46 01/26/25 11:40 Dextrose 50% 25 Gm/50 Ml Syringe IV PUSH 12.5 gm PRN PRN Administration Hypoglycemia Protocol Fentanyl Citrate 25 mcg 01/25/25 20:51 02/02/25 01:12 Fentanyl Citrate Inj (*Crx) 100 Mcg/2 Ml Vial IV PUSH 25 mcg Q4H PRN Administration Pain Rated 6 or Greater Glucagon 1 mg 01/25/25 20:46 Glucagon For Inj 1 Mg Vial IM PRN PRN Hypoglycemia Protocol Glucose 15 gm 01/25/25 20:46 Glucose Oral Gel 15 Gm Of Glucse In 37.5 Gm Tube PO PRN PRN Hypoglycemia Protocol Hydrocortisone Sodium Succinate 100 mg 02/02/25 14:20 02/03/25 04:55 Hydrocortisone Sodium Succinate 100 Mg/2 Ml Vial IV PUSH 100 mg Q8HR KANDIS Administration Dextrose 1,000 mls @ 100 mls/hr 01/25/25 20:46 Dextrose 5% 1,000 Ml IVPB PRN PRN Hypoglycemia Protocol Meropenem 1 gm in 100 mls @ 200 mls/hr 01/29/25 13:00 02/03/25 05:35 IVPB Infused Q8HR KANDIS Infusion Doxycycline Hyclate 100 mg in 100 mls @ 100 mls/hr 02/02/25 11:00 02/03/25 10:20 Vibramycin 100 Mg/Ns 100 Ml IVPB Infused Q12HR KANDIS Infusion Fentanyl Citrate 2,500 mcg in 250 mls @ 15 mls/hr 02/02/25 12:55 02/03/25 10:00 Fentanyl 2,500 Mcg/Ns 250 Ml IV CONT 150 mcg/hr .[id number] KANDIS 15 mls/hr Titration Protocol 150 MCG/HR Midazolam HCl 100 mg in 100 mls @ 6 mls/hr 02/02/25 12:55 02/03/25 10:00 Versed 100 Mg/Ns 100 Ml IV CONT 6 mg/hr .[id number] KANDIS 6 mls/hr Titration Protocol 6 MG/HR Norepinephrine Bitartrate 8 mg in 250 mls @ 18.75 mls/hr 02/02/25 14:10 02/03/25 10:00 Levophed 8 Mg/D5w 250 Ml IV CONT 10 mcg/min .[id number] KANDIS 18.75 mls/hr Titration Protocol 10 MCG/MIN Vasopressin 100 units/ 100 mls @ 0 mls/hr 02/02/25 14:20 02/03/25 10:00 Dextrose IV CONT 0 units/min .Q0M KANDIS 0 mls/hr Titration Protocol Phenylephrine HCl 50 mg/ 250 ml in 250 mls @ 0 mls/hr 02/02/25 14:55 02/03/25 10:00 Dextrose IV CONT 0 mcg/min .Q0M KANDIS 0 mls/hr Titration Protocol 0 MCG/MIN Vancomycin HCl 1,500 mg in 500 mls @ 250 mls/hr 02/02/25 22:00 02/03/25 00:30 Vancomycin 1,500 Mg/Ns 500 Ml IVPB Infused Q18H KANDIS Infusion Sodium Chloride 250 mls @ 30 mls/hr 02/03/25 07:28 Normal Saline Iv IV CONT 02/03/25 15:47 .[id number] STA Potassium Chloride 100 mls @ 25 mls/hr 02/03/25 07:30 02/03/25 08:49 Kcl 40 Meq/Water 100 Ml IVPB 02/03/25 11:29 25 mls/hr ONCE ONE Administration Lactated Ringer's 1,000 mls @ 75 mls/hr 02/03/25 08:40 02/03/25 09:18 Lr - Lactated Ringers Iv IV CONT 02/03/25 21:59 75 mls/hr .[id number] KANDIS Administration Insulin Aspart 4 - 8 units 02/02/25 18:00 04/30/25 06:41 Insulin Aspart (*Bkc) 100 Units/Ml SUB-Q 4 units Q6H KANDIS Administration Protocol Insulin Glargine 10 units 01/29/25 21:00 02/01/25 21:11 Insulin Glargine (*Bkc) 100 Units/Ml SUB-Q 10 units HS KANDIS Administration Ipratropium [place] 0.5 mg 02/02/25 14:20 02/03/25 08:03 Ipratropium Br 0.02% Inh Soln 0.5 Mg/2.5 Ml Vial INHALATION 0.5 mg Q6HRT KANDIS Administration Lactobacillus Acidophilus 1 pkt 02/03/25 09:00 02/03/25 08:52 Acidophilus Packet 1 Pkt Packet PO 1 pkt QID KANDIS Administration Levalbuterol HCl 0.63 mg 02/02/25 14:20 02/03/25 08:03 Levalbuterol Neb 1.25 Mg/3 Ml INHALATION 0.63 mg Q6HRT KANDIS Administration Midazolam HCl 2 mg 02/02/25 12:51 02/02/25 12:43 Midazolam Hcl (*Crx) 2 Mg/2 Ml Vial IV PUSH 2 mg PRN PRN Administration Sedation Multi-Ingred Cream/Lotion/Oil/Oint 1 applic 02/02/25 21:00 02/03/25 08:51 Mineral Oil/White Petrolatum Ointment EACH EYE 1 applic Q12HR KANDIS Administration Ondansetron HCl 4 mg 01/25/25 20:51 01/31/25 21:23 Ondansetron Inj 4 Mg/2 Ml Vial IV PUSH 4 mg Q6H PRN Administration Nausea And Vomiting Pantoprazole Sodium 40 mg 02/03/25 09:00 02/03/25 08:22 Pantoprazole Sodium Iv 40 Mg Vial IV PUSH 40 mg QAM KANDIS Administration Sodium Chloride 10 ml 02/02/25 14:00 02/03/25 04:56 Central Line Flush IV PUSH 10 ml Q8HR KANDIS Administration Sodium Chloride 20 ml 02/02/25 13:47 Central Line Flush IV PUSH PRN PRN after blood draws Radiology Results: ITS Impressions Pelvis CT 01/26/25 14:17 IMPRESSION: 1. No significant change in a bilobed gas and fluid containing abscess in the deep pelvis. Patient canceled the planned percutaneous abscess drainage catheter placement due to discomfort despite attempts at repositioning. Abdomen/Pelvis CT 01/29/25 09:28 Impression: Stable large bilobed multilocular abscess in the pelvis extensively involving the distal sigmoid colon and rectum. Stable wall thickening of the distal sigmoid colon and rectum. Small right pleural effusion with right basilar atelectatic change. Cholelithiasis. Nephrolithiasis bilaterally, as detailed above. Catheter Placement CT 02/02/25 16:48 IMPRESSION: 1. Technically successful CT-guided drainage catheter placement with likely translocation and overwhelming sepsis following initial aspiration with subsequent cardiac and respiratory arrest. 2. 12-14 mL fluid was sent for aerobic and anaerobic cultures. Please see separate CODE BLUE flow sheet for additional details of the CODE BLUE portion of the case. Chest X-Ray 02/03/25 06:15 Impression: Mild pulmonary edema pattern with small bilateral pleural effusions. Support tubes, as above. Labs Labs: Laboratory Results - last 24 hr 02/02/25 02/02/25 02/02/25 05:35 13:38 13:53 WBC 16.7 H RBC 3.44 L Hgb 8.0 L Hct 29.0 L MCV 84.3 D MCH 23.3 L MCHC 27.6 L RDW 16.7 H Plt Count 404 H MPV 8.8 Immature Gran % (Auto) Not Reportable Neut % (Auto) Not Reportable Lymph % (Auto) Not Reportable [place] % (Auto) Not Reportable Eos % (Auto) Not Reportable Baso % (Auto) Not Reportable Lymph # (Auto) Not Reportable [place] # (Auto) Not Reportable Eos # (Auto) Not Reportable Baso # (Auto) Not Reportable Abs Immat Gran (auto) Not Reportable Absolute Neuts (auto) Not Reportable Absolute Nucleated RBC Not Reportable Total Counted 100 Neutrophils % (Manual) 77 H Band Neutrophils % 9 H Lymphocytes % (Manual) 14 L Monocytes % (Manual) Eosinophils % (Manual) Nucleated RBC % Not Reportable Abs Neuts (Manual) 14.36 H Abs Lymphs (Manual) 2.33 Abs Monocytes (Manual) Absolute Eos (Manual) Atypical Lymphocytes Present Platelet Estimate Slightly increased Hypochromasia 1+ Anisocytosis 1+ Ovalocytes Schistocytes None seen PT 22.6 H INR 2.0 APTT 45.3 H Puncture Site Left radial ABG pH 7.297 L* ABG pCO2 44.9 ABG pO2 65.0 L ABG PO2/FiO2 Ratio 0.65 ABG HCO3 21.4 L ABG O2 Saturation 90.6 L ABG O2 Content 11.4 L ABG Base Excess -4.8 A-a Gradient 606.7 Oxyhemoglobin 87.3 L* Carboxyhemoglobin 1.0 Methemoglobin 0.0 Reduced Hemoglobin 11.7 H Total Hemoglobin 9.2 L O2 Delivery Device Ventilator O2 Liters/Min Not Reportable Minute Volume Not Reportable Vent Rate 20 Vent Mode Cmv FiO2 100 Tidal Volume 450 PEEP 8 Peak Inspir Pressure Not Reportable Pressure Support Not Reportable Sodium 136 L Potassium 3.5 Chloride 101 Carbon Dioxide 26 Anion Gap 9 BUN 12 Creatinine 0.95 Estim Creat Clear Calc 54 Estimated GFR 58 L Glucose 191 H POC Capillary Glucose Lactic Acid 9.1 H* Calcium 7.9 L Phosphorus 5.1 H Magnesium 2.1 % Saturation 11 L Ferritin 69.70 Total Bilirubin 0.7 AST 62 H ALT 26 Alkaline Phosphatase 373 H Troponin I 0.079 H* C-Reactive Protein 8.9 H Total Protein 6.0 L Albumin 2.1 L Urine Color Urine Appearance Urine pH Ur Specific [place] Urine Protein Urine Glucose (UA) Urine Ketones Ur Blood (Man) Urine Nitrate Urine Bilirubin Urine Urobilinogen Leukocyte Esterase Rfl Urine RBC Urine WBC Ur Squamous Epith Cells Urine Bacteria Urine Casts Nasal MRSA (PCR) Vancomycin Trough Blood Type Antibody Screen Crossmatch 02/02/25 02/02/25 02/02/25 18:05 18:08 18:12 WBC RBC Hgb Hct MCV MCH MCHC RDW Plt Count MPV Immature Gran % (Auto) Neut % (Auto) Lymph % (Auto) [place] % (Auto) Eos % (Auto) Baso % (Auto) Lymph # (Auto) [place] # (Auto) Eos # (Auto) Baso # (Auto) Abs Immat Gran (auto) Absolute Neuts (auto) Absolute Nucleated RBC Total Counted Neutrophils % (Manual) Band Neutrophils % Lymphocytes % (Manual) Monocytes % (Manual) Eosinophils % (Manual) Nucleated RBC % Abs Neuts (Manual) Abs Lymphs (Manual) Abs Monocytes (Manual) Absolute Eos (Manual) Atypical Lymphocytes Platelet Estimate Hypochromasia Anisocytosis Ovalocytes Schistocytes PT INR APTT Puncture Site ABG pH ABG pCO2 ABG pO2 ABG PO2/FiO2 Ratio ABG HCO3 ABG O2 Saturation ABG O2 Content ABG Base Excess A-a Gradient Oxyhemoglobin Carboxyhemoglobin Methemoglobin Reduced Hemoglobin Total Hemoglobin O2 Delivery Device O2 Liters/Min Minute Volume Vent Rate Vent Mode FiO2 Tidal Volume PEEP Peak Inspir Pressure Pressure Support Sodium Potassium Chloride Carbon Dioxide Anion Gap BUN Creatinine Estim Creat Clear Calc Estimated GFR Glucose POC Capillary Glucose 165 H Lactic Acid 8.5 H* Calcium Phosphorus Magnesium % Saturation Ferritin Total Bilirubin AST ALT Alkaline Phosphatase Troponin I C-Reactive Protein Total Protein Albumin Urine Color Dark yellow Urine Appearance Turbid H Urine pH 5.0 Ur Specific [place] > 1.045 H Urine Protein 3+ H Urine Glucose (UA) Trace H Urine Ketones Trace H Ur Blood (Man) 3+ H Urine Nitrate Negative Urine Bilirubin 1+ H Urine Urobilinogen 1.0 Leukocyte Esterase Rfl Trace H Urine RBC >100 H Urine WBC 51-100 H Ur Squamous Epith Cells Moderate Urine Bacteria Rare Urine Casts >20 Nasal MRSA (PCR) Detected A* Vancomycin Trough Blood Type Antibody Screen Crossmatch 02/02/25 02/02/25 02/03/25 20:43 23:08 05:01 WBC RBC Hgb Hct MCV MCH MCHC RDW Plt Count MPV Immature Gran % (Auto) Neut % (Auto) Lymph % (Auto) [place] % (Auto) Eos % (Auto) Baso % (Auto) Lymph # (Auto) [place] # (Auto) Eos # (Auto) Baso # (Auto) Abs Immat Gran (auto) Absolute Neuts (auto) Absolute Nucleated RBC Total Counted Neutrophils % (Manual) Band Neutrophils % Lymphocytes % (Manual) Monocytes % (Manual) Eosinophils % (Manual) Nucleated RBC % Abs Neuts (Manual) Abs Lymphs (Manual) Abs Monocytes (Manual) Absolute Eos (Manual) Atypical Lymphocytes Platelet Estimate Hypochromasia Anisocytosis Ovalocytes Schistocytes PT INR APTT Puncture Site Artline ABG pH 7.549 H* ABG pCO2 25.9 L ABG pO2 230.2 H ABG PO2/FiO2 Ratio 2.56 ABG HCO3 22.1 ABG O2 Saturation 99.6 ABG O2 Content 10.2 L ABG Base Excess -0.1 A-a Gradient 385.0 Oxyhemoglobin 98.9 Carboxyhemoglobin 0.8 Methemoglobin 0.3 Reduced Hemoglobin 0.0 Total Hemoglobin 6.9 L* O2 Delivery Device Ventilator O2 Liters/Min Minute Volume Not Reportable Vent Rate 24 Vent Mode Cmv FiO2 90 Tidal Volume 360 PEEP 8 Peak Inspir Pressure Not Reportable Pressure Support Not Reportable Sodium Potassium Chloride Carbon Dioxide Anion Gap BUN Creatinine Estim Creat Clear Calc Estimated GFR Glucose POC Capillary Glucose 207 H Lactic Acid Calcium Phosphorus Magnesium % Saturation Ferritin Total Bilirubin AST ALT Alkaline Phosphatase Troponin I C-Reactive Protein Total Protein Albumin Urine Color Urine Appearance Urine pH Ur Specific [place] Urine Protein Urine Glucose (UA) Urine Ketones Ur Blood (Man) Urine Nitrate Urine Bilirubin Urine Urobilinogen Leukocyte Esterase Rfl Urine RBC Urine WBC Ur Squamous Epith Cells Urine Bacteria Urine Casts Nasal MRSA (PCR) Vancomycin Trough 11.9 Blood Type Antibody Screen Crossmatch 02/03/25 02/03/25 02/03/25 05:02 06:38 08:09 WBC 70.2 H* 64.0 H* RBC 2.65 L 2.63 L Hgb 6.5 L* 6.3 L* Hct 20.7 L* 20.5 L* MCV 78.1 L D 77.9 L MCH 24.5 L D 24.0 L MCHC 31.4 L 30.7 L RDW 16.8 H 16.7 H Plt Count 270 245 MPV 9.4 9.0 Immature Gran % (Auto) Not Reportable Neut % (Auto) Not Reportable Lymph % (Auto) Not Reportable [place] % (Auto) Not Reportable Eos % (Auto) Not Reportable Baso % (Auto) Not Reportable Lymph # (Auto) Not Reportable [place] # (Auto) Not Reportable Eos # (Auto) Not Reportable Baso # (Auto) Not Reportable Abs Immat Gran (auto) Not Reportable Absolute Neuts (auto) Not Reportable Absolute Nucleated RBC Not Reportable Total Counted 100 Neutrophils % (Manual) 88 H Band Neutrophils % 7 H Lymphocytes % (Manual) 1 L Monocytes % (Manual) 3 Eosinophils % (Manual) 1 Nucleated RBC % Not Reportable Abs Neuts (Manual) 66.69 H Abs Lymphs (Manual) 0.70 L Abs Monocytes (Manual) 2.10 H Absolute Eos (Manual) 0.70 H Atypical Lymphocytes Platelet Estimate Adequate Hypochromasia 1+ Anisocytosis Ovalocytes 1+ Schistocytes None seen PT 22.5 H INR 1.9 APTT 47.0 H Puncture Site ABG pH ABG pCO2 ABG pO2 ABG PO2/FiO2 Ratio ABG HCO3 ABG O2 Saturation ABG O2 Content ABG Base Excess A-a Gradient Oxyhemoglobin Carboxyhemoglobin Methemoglobin Reduced Hemoglobin Total Hemoglobin O2 Delivery Device O2 Liters/Min Minute Volume Vent Rate Vent Mode FiO2 Tidal Volume PEEP Peak Inspir Pressure Pressure Support Sodium 136 L Potassium 3.1 L Chloride 97 L Carbon Dioxide 27 Anion Gap 12 BUN 17 Creatinine 1.31 H Estim Creat Clear Calc 40 Estimated GFR 40 L Glucose 233 H POC Capillary Glucose Lactic Acid 3.9 H 3.0 H Calcium 7.4 L Phosphorus 3.5 Magnesium 1.8 % Saturation Ferritin Total Bilirubin 1.6 H AST 39 H ALT 16 Alkaline Phosphatase 108 Troponin I C-Reactive Protein Total Protein 6.0 L Albumin 2.6 L Urine Color Urine Appearance Urine pH Ur Specific [place] Urine Protein Urine Glucose (UA) Urine Ketones Ur Blood (Man) Urine Nitrate Urine Bilirubin Urine Urobilinogen Leukocyte Esterase Rfl Urine RBC Urine WBC Ur Squamous Epith Cells Urine Bacteria Urine Casts Nasal MRSA (PCR) Vancomycin Trough Blood Type O Positive Antibody Screen Negative Crossmatch See Detail
[2025-02-03] MEDS: FENTANYL 2,500MCG/NS250ML(*CRX 2,500 MCG/250 ML BAG 15 MCG IV CONT (11:08)
--- NOTE | 2025-02-03 11:15 | PCFNICU ---
ICU Rounding Note: Pt current nutrition is Vital AF 1.2 at 20 ml/hr. Last recorded weight is 98.9 kg, stable Bowel Motility: FMS Labs Reviewed: Glu 233, Na 136, GFR 40, Hct 20.5, Hgb 6.3 Meds Noted: Versed, Fentanyl, Levophed, LR, Lantus, NovoLog. Skin: WNL Additional Notes:Patient intubated 02/02. Housekeeper Child Care would like to start trickle feedings today. Recommending Vital AF 1.2 at 20 ml/hr. Flush 30 ml q 4 hours. Following daily in ICU rounds. Monitor intake, wt, labs. Follow up every Saturday and Saturday.
[2025-02-03 11:32] LABS: Glucose Point of Care 261 mg/dl (65-105)
[2025-02-03 12:20] LABS: Alveolar/Arterial O2 Gradient 227.6 mmHg; Fractional Inspired Oxygen 50 %; Oxygen Content ABG 9.6 %vol (16.0-22.0); Oxygen Saturation ABG 97.7 % (95.0-100.0); Oxyhemoglobin 96.2 % THb (90.0-100.0); PCO2 ABG 34.1 mmHg (35.0-45.0); PO2 ABG 90.5 mmHg (80.0-100.0); PO2 FiO2 Ratio Arterial Blood 1.81 %
[2025-02-03 12:22] LABS: pH ABG 7.532 (7.350-7.450)
[2025-02-03 12:23] LABS: Arterial Blood Gas Vent Mode CMV; Arterial Blood Gas Ventilator rate 20 /MIN; Device VENTILATOR; Site Drawn ARTLINE
[2025-02-03 12:24] LABS: Arterial Blood Gas PEEP 8 cmH2O; Arterial Blood Gas Tidal Volume 420 ml
[2025-02-03 12:48] LABS: Toxigenic C. Diff NEGATIVE (NEGATIVE)
[2025-02-03 15:49] LABS: Hematocrit 23.2 % (37.0-47.0); Hemoglobin 7.3 g/dL (12.0-15.0)
[2025-02-03 16:13] LABS: Anion Gap 8 mmol/L (4-12); Blood Urea Nitrogen 21 mg/dL (7-17); Calcium 7.5 mg/dL (8.4-10.2); Carbon Dioxide 32 mmol/L (22-30); Chloride 98 mmol/L (98-107); Estimated CRCL calculation 41 ml/min; Estimated Glomerular Filt Rate 41; Glucose 226 mg/dL (65-110); Potassium 3.6 mmol/L (3.4-5.0); Sodium 138 mmol/L (137-145)
[2025-02-03] MEDS: POTASSIUM CHLORIDE 20 MEQ PACKET (FOR LIQUID) 40 MEQ PO (16:54)
[2025-02-03] MEDS: VANCOMYCIN 1,500 MG/NS 500 ML 1,500 MG/500 ML BAG 250 MG IVPB (16:54)
[2025-02-03 17:16] LABS: Glucose Point of Care 221 mg/dl (65-105)
[2025-02-03] MEDS: NOREPINEPHRINE 8 MG/D5W 250 ML 8 MG/250 ML BAG 7.5 MG IV CONT (21:00)
[2025-02-03] MEDS: CENTRAL LINE FLUSH 20 ML IV PUSH (21:40)
[2025-02-03 22:01] LABS: Hemoglobin 7.2 g/dL (12.0-15.0)
[2025-02-03] MEDS: MIDAZOLAM 100MG/NS 100ML(*CRX) 100 MG/100 ML BAG IV CONT (22:48)
[2025-02-03 23:26] LABS: Glucose Point of Care 162 mg/dl (65-105)
[2025-02-04] VITALS (40 sets, daily range): BP systolic 81–168; BP diastolic 42–75; PULSE 49–96; RESP 18–28; TEMP 36.1–37.1; O2SAT 97–100
[2025-02-04] MEDS: LEVALBUTEROL NEB 1.25 MG/3 ML 0.63 MG INHALATION ×4 (02:15→20:04)
[2025-02-04] MEDS: IPRATROPIUM BR 0.02% INH SOLN 0.5 MG/2.5 ML VIAL INHALATION ×4 (02:15→20:04)
[2025-02-04] MEDS: FENTANYL 2,500MCG/NS250ML(*CRX 2,500 MCG/250 ML BAG 15 MCG IV CONT (03:43)
[2025-02-04 05:25] LABS: Alveolar/Arterial O2 Gradient 159.5 mmHg; Carboxyhemoglobin 1.3 % THb (0-2.0); Fractional Inspired Oxygen 40 %; HCO3 ABG 27.6 mEq/l (22.0-26.0); Methemoglobin ABG 0.3 %THb (0-1.5); Oxygen Content ABG 9.9 %vol (16.0-22.0); Oxyhemoglobin 94.6 % THb (90.0-100.0); PCO2 ABG 36.6 mmHg (35.0-45.0); PO2 ABG 83.6 mmHg (80.0-100.0); PO2 FiO2 Ratio Arterial Blood 2.09 %; Reduced Hemoglobin 3.8 %THb (0-5.0); pH ABG 7.495 (7.350-7.450)
[2025-02-04 05:36] LABS: Device VENTILATOR; Site Drawn ARTLINE; Total Hemoglobin 7.3 g/dL (12.0-18.0)
[2025-02-04 05:37] LABS: Arterial Blood Gas Ventilator rate 18 /MIN
[2025-02-04 05:38] LABS: Arterial Blood Gas PEEP 8 cmH2O; Arterial Blood Gas Tidal Volume 420 ml; Arterial Blood Gas Vent Mode CMV
[2025-02-04 05:49] LABS: Hematocrit 23.4 % (37.0-47.0); Hemoglobin 7.2 g/dL (12.0-15.0); Immature Granulocyte Percent A 5.4 % (0-0.5); Lymphocytes Absolute Auto 0.48 K/mm3 (0.9-3.2); Lymphocytes Percent Auto 0.8 % (18.3-44.2); Mean Corpuscular HGB Conc 30.8 g/dl (32-36); Mean Corpuscular Hemoglobin 24.6 pg (26-34); Mean Corpuscular Volume 79.9 fl (80-100); Mean Platelet Volume 10.5 fl (7.4-10.4); Monocytes Absolute Auto 0.8 K/mm3 (0.1-0.6); Monocytes Percent Auto 1.5 % (2.6-8.5); Neutrophils Absolute Auto 52.8 K/mm3 (1.3-6.7); Neutrophils Percent Auto 92.3 % (45.5-73.1); Platelet Count Result 240 k/mm3 (150-375); Red Blood Count 2.93 M/mm3 (4.2-5.4); Red Cell Distribution Width 17.1 % (11.5-14.5)
[2025-02-04 05:53] LABS: Alanine Aminotransferase 17 U/L (6-35); Albumin Level 2.6 g/dL (3.5-5.1); Alkaline Phosphatase 118 U/L (38-126); Anion Gap 6 mmol/L (4-12); Aspartate Amino Transferase 37 U/L (14-36); Bilirubin,Total 1.3 mg/dL (0.2-1.3); Blood Urea Nitrogen 26 mg/dL (7-17); Calcium 7.6 mg/dL (8.4-10.2); Carbon Dioxide 32 mmol/L (22-30); Chloride 100 mmol/L (98-107); Estimated CRCL calculation 41 ml/min; Estimated Glomerular Filt Rate 41; Glucose 212 mg/dL (65-110); Magnesium 2.2 mg/dL (1.6-2.3); Phosphorus 3.9 mg/dL (2.5-4.5); Potassium 4.2 mmol/L (3.4-5.0); Sodium 138 mmol/L (137-145)
[2025-02-04 05:54] LABS: Lactic Acid Reflex 1.5 mmol/L (0.7-2.0)
[2025-02-04 06:04] LABS: INR 1.5
[2025-02-04 06:05] LABS: Partial Thromboplastin Time 37.3 Seconds (22.3-36.8)
[2025-02-04] MEDS: CENTRAL LINE FLUSH 10 ML IV PUSH ×3 (06:05→23:25)
[2025-02-04] MEDS: HYDROCORTISONE SODIUM SUCCINATE 100 MG/2 ML VIAL IV PUSH ×3 (06:05→21:28)
[2025-02-04] MEDS: MEROPENEM 1 GM/NS 100 ML 1 GM/100 ML BAG IVPB ×3 (06:05→22:30)
[2025-02-04 06:59] LABS: White Blood Count 57.2 K/mm3 (4.5-10.0)
[2025-02-04] MEDS: INSULIN ASPART (*BKC) 100 UNITS/ML SUB-Q ×2 (07:56→17:37)
[2025-02-04] MEDS: MINERAL OIL/WHITE PETROLATUM OINTMENT 1 APPLIC EACH EYE ×2 (08:31→21:28)
[2025-02-04] MEDS: DOXYCYCLINE 100 MG/NS 100 ML 100 MG/100 ML BAG IVPB ×2 (08:31→21:27)
[2025-02-04] MEDS: ACIDOPHILUS PACKET 1 PKT PACKET PO ×4 (08:31→21:27)
[2025-02-04] MEDS: PANTOPRAZOLE SODIUM IV 40 MG VIAL IV PUSH ×2 (08:31→21:28)
[2025-02-04] MEDS: INSULIN GLARGINE (*BKC) 100 UNITS/ML SUB-Q (08:35)
[2025-02-04 09:22] LABS: Vancomycin Trough 18.8 ug/mL (10.0-20.0)
[2025-02-04] MEDS: VANCOMYCIN 1,500 MG/NS 500 ML 1,500 MG/500 ML BAG 250 MG IVPB (10:22)
--- NOTE | 2025-02-04 11:11 | PCFNICU ---
ICU Rounding Note: Pt current nutrition is Vital AF 12 at 20 ml/hr. Nutrition recommendation: 60 ml/hr Last recorded weight is 98.9 kg, stable Bowel Motility: FMS Labs Reviewed: Glu 212, Cr 1.28, BUN 26, Alb 2.6 Meds Noted: Lantus, Levophed, NovoLog, Versed, Fentanyl, NS Skin: WNL Additional Notes: Patient remains on mechanical vent. Tube feedings are being tolerated of Vital AF 1.2 at 20 ml/hr. Power Ballast Machine Operator would like us to increase tube feeding rate today. Recommending increasing to 60 ml/hr today, providing 1584 kcal/99 gm protein/1071 ml water. Flush 30 ml q 4 hours. Agree with diet orders. Following daily in ICU rounds. Monitor intake, wt, labs. Follow up every Saturday and Saturday.
[2025-02-04] MEDS: metroNIDAZOLE 500 MG/ISO 100ML 500 MG/100 ML BAG 100 MG IVPB ×2 (12:17→17:37)
[2025-02-04 12:22] LABS: Glucose Point of Care 194 mg/dl (65-105)
--- NOTE | 2025-02-04 12:52 | WPDINTPN ---
Progress Note: A&P Assessment and Plan (1) Cardiac arrest: Code(s): I46.9 - Cardiac arrest, cause unspecified Status: Acute Assessment and Plan: Patient had a cardiac arrest after placement of a percutaneous drain in the pelvic abscess. Could be related to vasovagal, translocation of bacteria, hypoxia as patient was laying flat, hypovolemia, acidosis -successful ROSC x2, intubated in the CT scan suite by ER physician -patient did follow commands post code a continue, so not a candidate for targeted temperature management -will continue to treat underlying cause (2) Septic shock: Code(s): A41.9 - Sepsis, unspecified organism; R65.21 - Severe sepsis with septic shock Status: Acute Assessment and Plan: 02/01:In the ICU patient dropped her blood pressures -patient has been adequately fluid-resuscitated with IV fluids and albumin -continue meropenem, 02/04 -add Flagyl 02/04: Discontinue vancomycin -continue doxycycline for possible pneumonia which was started when she was on the medical floor to cover atypicals for a total of 5 days -continue Levophed, will maintain MAP > 65 mmHg at all times for adequate end organ perfusion -Bobo-Synephrine and vasopressin was discontinued -01/25: Blood cultures negative x2 -02/02: repeat blood cultures -growing E coli and Clostridium ramosum -02/02: Abscess fluid culture growing E coli and Bacteroides fragilis -continue stress dose steroids 02/03: WBC count up to 64, could be related to septic shock, infection, leukomoid reaction, steroids. Will continue to monitor -WBC count is trending down, patient is afebrile, continue to monitor (3) Acute respiratory failure: Code(s): J96.00 - Acute respiratory failure, unspecified whether with hypoxia or hypercapnia Status: Acute Assessment and Plan: Acute respiratory failure likely related to cardiac arrest possible from septic shock, infection, hypovolemia, translocation of bacteria, acidosis, hypoxia -patient intubated in the CT scan suite by ER physician -currently on CMV mode of ventilation, peep of 8, will wean FiO2 to maintain O2 sats greater than 92% -chest x-ray and ABGs reviewed -ventilator adjusted -continue Xopenex and Atrovent nebulizer -sedated with fentanyl and Versed infusion, maintain RASS of 0 to -2. Daily SBT and SAT (4) Intra-abdominal abscess: Code(s): K65.1 - Peritoneal abscess Status: Acute Assessment and Plan: Intra-abdominal abscess, status post percutaneous IR drain placement on 02/01/2025 -draining purulent material, cultures as above -surgery is following the patient -continue antibiotics as above (5) Diabetes 1.5, managed as type 2: Code(s): E13.9 - Other specified diabetes mellitus without complications Status: Acute Assessment and Plan: Continue Accu-Cheks and sliding scale insulin -tolerating trickle tube feeds, hyperglycemic, will add Lantus (6) Hypertension: Qualifiers: Hypertension type: unspecified Qualified Code(s): I10 - Essential (primary) hypertension Code(s): I10 - Essential (primary) hypertension Status: Acute Assessment and Plan: Hold all antihypertensives, as patient is on pressors (7) Anemia: Code(s): D64.9 - Anemia, unspecified Status: Acute Assessment and Plan: 02/03: Hemoglobin dropped to 6.3. -will transfuse 1 unit of packed RBC -hemoglobin stable Plan DVT prophylaxis: Hold Lovenox due to anemia, SCD orders in place Stress ulcer prophylaxis: Protonix IV q.12 hours Nutrition: Advanced tube feed Code Status: Full code Critical Care Time Spent: 34 minutes Discussed with patient daughter Leslye, and updated with patient's condition and plan of care. I answered all her questions. Due to a high probability of clinically significant, life threatening deterioration, the patient required my highest level of preparedness to intervene emergently and I personally spent this critical care time directly and personally managing the patient. This critical care time included obtaining a history; examining the patient; pulse oximetry; ordering and review of studies; arranging urgent treatment with development of a management plan; evaluation of patient's response to treatment; frequent reassessment; and discussions with other providers. It was exclusive of separately billable procedures and treating other patients and teaching time. Please see Assessment and Plan section and the rest of the note for further information on patient assessment and treatment This dictation may have been done utilizing a voice recognition system. Attempts have been made to correct errors. However, there may be uncorrected grammatical, spelling, and recognitions errors present. Subjective Date/time seen: 02/04/25 12:52 Interval history: Reason for consult: Cardiac arrest, acute respiratory failure, abdominal abscess, sepsis 02/04/2025: Patient seen and and examined in the ICU, remains intubated on CMV mode of ventilation, peep of 8, 40% FiO2. Sedated with fentanyl and Versed infusion, does not open her eyes or follow simple commands. Does not withdraw to pain. Urine output has improved, patient has been afebrile overnight. On Levophed 2 mcg/min this morning. Off vasopressin and Bobo-Synephrine. Bowel movements have slowed down Review of Systems Review of Systems: ROS unobtainable: Yes unobtainable due to endotracheal tube, unobtainable due to medical condition and unobtainable due to mental status Exam Narrative: General: Obese female currently in no acute distress HEENT:? Pupils equal and reactive, sclera is clear, ETT in place Neck:? Supple Respiratory:? Coarse breath sounds bilaterally, decreased at bases, no wheezing, adequate air entry Cardiac:? S1-S2 normal, regular rate and rhythm Abdomen:? Soft, nontender, obese, hypoactive bowel sounds, left lower quadrant drain in place with purulent drainage Extremities:? Trace edema, palpable pedal pulse Neuro:? Patient remains intubated and sedated, does not open her eyes or follow simple commands. On 02/02 post code she did follow simple commands Skin:? No skin lesions noted Psych:? Unable to assess at this time Objective Data Vital Signs Vital Signs: Vital Signs - 24 hr 02/03/25 13:21 02/03/25 13:44 02/03/25 13:44 Temperature 97.6 F Pulse Rate 65 64 64 Respiratory Rate 18 18 Blood Pressure 127/58 L Pulse Oximetry 99 99 Oxygen Delivery Mechanical Ventilation Fraction of Inspired Oxygen 50 02/03/25 13:54 02/03/25 13:55 02/03/25 14:00 Temperature 97.6 F Pulse Rate 65 64 68 Respiratory Rate 18 18 Blood Pressure 134/60 132/59 L Pulse Oximetry 99 Oxygen Delivery Fraction of Inspired Oxygen 02/03/25 14:00 02/03/25 14:00 02/03/25 14:00 Temperature Pulse Rate 68 68 68 Respiratory Rate 18 18 Blood Pressure 132/58 L Pulse Oximetry Oxygen Delivery Fraction of Inspired Oxygen 02/03/25 14:00 02/03/25 14:00 02/03/25 14:00 Temperature 97.7 F Pulse Rate 68 68 68 Respiratory Rate 14 Blood Pressure 132/58 L 131/58 L Pulse Oximetry 99 Oxygen Delivery Fraction of Inspired Oxygen 02/03/25 15:41 02/03/25 16:00 02/03/25 16:00 Temperature 97.7 F Pulse Rate 69 64 66 Respiratory Rate 18 Blood Pressure 124/57 L 122/57 L 120/57 L Pulse Oximetry 95 Oxygen Delivery Fraction of Inspired Oxygen 02/03/25 16:00 02/03/25 16:00 02/03/25 16:00 Temperature Pulse Rate 64 64 64 Respiratory Rate 18 18 Blood Pressure 122/57 L Pulse Oximetry Oxygen Delivery Fraction of Inspired Oxygen 02/03/25 16:00 02/03/25 16:00 02/03/25 16:00 Temperature Pulse Rate 64 Respiratory Rate Blood Pressure 122/57 L Pulse Oximetry 95 Oxygen Delivery Mechanical Ventilation Fraction of Inspired Oxygen 40 40 02/03/25 16:00 02/03/25 16:02 02/03/25 17:13 Temperature Pulse Rate 65 64 65 Respiratory Rate Blood Pressure 112/54 L Pulse Oximetry 95 Oxygen Delivery Mechanical Ventilation Fraction of Inspired Oxygen 40 02/03/25 18:00 02/03/25 18:00 02/03/25 18:00 Temperature 97.9 F Pulse Rate 67 67 66 Respiratory Rate 12 Blood Pressure 96/49 L 95/49 L Pulse Oximetry 98 Oxygen Delivery Fraction of Inspired Oxygen 02/03/25 18:00 02/03/25 18:00 02/03/25 18:00 Temperature Pulse Rate 66 66 66 Respiratory Rate 18 18 Blood Pressure 96/49 L Pulse Oximetry Oxygen Delivery Fraction of Inspired Oxygen 02/03/25 18:00 02/03/25 20:00 02/03/25 20:00 Temperature Pulse Rate 66 65 65 Respiratory Rate 18 Blood Pressure 96/49 L 105/53 L Pulse Oximetry Oxygen Delivery Fraction of Inspired Oxygen 02/03/25 20:00 02/03/25 20:00 02/03/25 20:00 Temperature Pulse Rate 65 65 Respiratory Rate 18 Blood Pressure 105/53 L Pulse Oximetry 97 Oxygen Delivery Mechanical Ventilation Fraction of Inspired Oxygen 40 02/03/25 20:00 02/03/25 20:00 02/03/25 20:00 Temperature 98 F Pulse Rate 65 64 Respiratory Rate 18 Blood Pressure 106/54 L Pulse Oximetry 97 Oxygen Delivery Fraction of Inspired Oxygen 40 02/03/25 20:23 02/03/25 20:49 02/03/25 20:52 Temperature Pulse Rate 65 69 65 Respiratory Rate 18 Blood Pressure 88/48 L Pulse Oximetry 98 Oxygen Delivery Mechanical Ventilation Fraction of Inspired Oxygen 40 02/03/25 21:00 02/03/25 21:00 02/03/25 21:14 Temperature Pulse Rate 70 70 71 Respiratory Rate Blood Pressure 99/51 L 99/51 L 88/47 L Pulse Oximetry Oxygen Delivery Fraction of Inspired Oxygen 02/03/25 21:45 02/03/25 22:00 02/03/25 22:00 Temperature Pulse Rate 67 67 67 Respiratory Rate 18 18 Blood Pressure 135/59 L Pulse Oximetry Oxygen Delivery Fraction of Inspired Oxygen 02/03/25 22:00 02/03/25 22:00 02/03/25 22:00 Temperature Pulse Rate 67 67 67 Respiratory Rate Blood Pressure 123/56 L 123/56 L Pulse Oximetry Oxygen Delivery Fraction of Inspired Oxygen 02/03/25 22:00 02/03/25 22:48 02/03/25 22:48 Temperature 97.7 F Pulse Rate 67 64 64 Respiratory Rate 18 18 18 Blood Pressure 123/56 L Pulse Oximetry 97 Oxygen Delivery Fraction of Inspired Oxygen 02/03/25 23:33 02/04/25 00:00 02/04/25 00:00 Temperature Pulse Rate 95 Respiratory Rate Blood Pressure Pulse Oximetry 97 98 Oxygen Delivery Mechanical Ventilation Mechanical Ventilation Fraction of Inspired Oxygen 40 40 40 02/04/25 00:00 02/04/25 00:00 02/04/25 00:00 Temperature 97.6 F Pulse Rate 62 59 L 62 Respiratory Rate 18 18 Blood Pressure 114/55 L Pulse Oximetry 98 Oxygen Delivery Fraction of Inspired Oxygen 02/04/25 00:00 02/04/25 00:00 02/04/25 00:00 Temperature Pulse Rate 62 62 62 Respiratory Rate 18 Blood Pressure 114/55 L 114/55 L Pulse Oximetry Oxygen Delivery Fraction of Inspired Oxygen 02/04/25 02:00 02/04/25 02:00 02/04/25 02:00 Temperature 97.7 F Pulse Rate 62 62 62 Respiratory Rate 18 18 Blood Pressure 101/50 L Pulse Oximetry 98 Oxygen Delivery Fraction of Inspired Oxygen 02/04/25 02:00 02/04/25 02:00 02/04/25 02:00 Temperature Pulse Rate 62 61 61 Respiratory Rate 18 Blood Pressure 104/56 L 104/56 L Pulse Oximetry Oxygen Delivery Fraction of Inspired Oxygen 02/04/25 02:15 02/04/25 02:20 02/04/25 03:43 Temperature Pulse Rate 60 95 71 Respiratory Rate 18 18 Blood Pressure Pulse Oximetry 97 Oxygen Delivery Mechanical Ventilation Fraction of Inspired Oxygen 40 02/04/25 03:43 02/04/25 04:00 02/04/25 04:00 Temperature Pulse Rate 71 68 68 Respiratory Rate 18 18 Blood Pressure 128/75 Pulse Oximetry Oxygen Delivery Fraction of Inspired Oxygen 02/04/25 04:00 02/04/25 04:00 02/04/25 04:00 Temperature Pulse Rate 68 69 Respiratory Rate 18 Blood Pressure Pulse Oximetry 97 Oxygen Delivery Mechanical Ventilation Fraction of Inspired Oxygen 40 02/04/25 04:00 02/04/25 04:00 02/04/25 04:08 Temperature 97.5 F L Pulse Rate 64 68 Respiratory Rate 18 Blood Pressure 128/75 Pulse Oximetry 97 98 Oxygen Delivery Mechanical Ventilation Fraction of Inspired Oxygen 40 40 02/04/25 06:00 02/04/25 06:00 02/04/25 06:00 Temperature Pulse Rate 58 L 58 L 58 L Respiratory Rate 18 28 H Blood Pressure 126/60 Pulse Oximetry Oxygen Delivery Fraction of Inspired Oxygen 02/04/25 06:00 02/04/25 06:00 02/04/25 06:28 Temperature 97.3 F L Pulse Rate 53 L 59 L 55 L Respiratory Rate 18 Blood Pressure 117/60 168/71 H Pulse Oximetry 97 Oxygen Delivery Fraction of Inspired Oxygen 02/04/25 08:00 02/04/25 08:00 02/04/25 08:00 Temperature Pulse Rate 53 L 53 L 53 L Respiratory Rate 18 18 Blood Pressure 130/61 Pulse Oximetry Oxygen Delivery Fraction of Inspired Oxygen 02/04/25 08:00 02/04/25 08:00 02/04/25 08:00 Temperature 96.9 F L Pulse Rate 52 L 51 L Respiratory Rate 18 Blood Pressure 131/61 Pulse Oximetry 99 97 Oxygen Delivery Mechanical Ventilation Fraction of Inspired Oxygen 40 02/04/25 08:00 02/04/25 08:30 02/04/25 08:45 Temperature Pulse Rate 51 L 53 L Respiratory Rate Blood Pressure 138/63 127/61 Pulse Oximetry Oxygen Delivery Fraction of Inspired Oxygen 40 02/04/25 08:54 02/04/25 09:13 02/04/25 09:15 Temperature Pulse Rate 59 L 63 63 Respiratory Rate 18 18 Blood Pressure 84/43 L Pulse Oximetry Oxygen Delivery Fraction of Inspired Oxygen 02/04/25 09:15 02/04/25 09:27 02/04/25 09:43 Temperature Pulse Rate 55 L 62 49 L Respiratory Rate Blood Pressure 81/42 L 136/60 Pulse Oximetry 98 Oxygen Delivery Mechanical Ventilation Fraction of Inspired Oxygen 40 02/04/25 10:00 02/04/25 10:00 02/04/25 10:00 Temperature 96.9 F L Pulse Rate 53 L 53 L 53 L Respiratory Rate 18 18 Blood Pressure 122/55 L Pulse Oximetry 97 Oxygen Delivery Fraction of Inspired Oxygen 02/04/25 10:00 02/04/25 10:00 02/04/25 12:00 Temperature Pulse Rate 53 L 53 L 56 L Respiratory Rate 18 18 Blood Pressure 122/55 L Pulse Oximetry Oxygen Delivery Fraction of Inspired Oxygen 02/04/25 12:00 02/04/25 12:00 02/04/25 12:00 Temperature 96.9 F L Pulse Rate 56 L 56 L 56 L Respiratory Rate 18 18 Blood Pressure 118/55 L 118/55 L Pulse Oximetry 99 Oxygen Delivery Fraction of Inspired Oxygen 02/04/25 12:00 02/04/25 12:00 02/04/25 12:14 Temperature Pulse Rate 53 L Respiratory Rate Blood Pressure Pulse Oximetry 99 99 Oxygen Delivery Mechanical Ventilation Mechanical Ventilation Fraction of Inspired Oxygen 40 40 40 Intake/Output Intake/Output: Intake & Output 02/01/25 02/02/25 02/03/25 02/04/25 23:59 23:59 23:59 23:59 Intake Total 1320 2129.4 3748.8 1283.0 Output Total 3392 117 3960 650 Balance -130 1394.4 2568.8 633.0 Meds/Results Medications: Active Medications Generic Name Dose Route Start Last Admin Trade Name Freq PRN Reason Stop Dose Admin Acetaminophen 650 mg 01/25/25 20:51 02/01/25 19:04 Acetaminophen 325 Mg Tablet PO 650 mg Q4H PRN Administration Headache Dextrose 12.5 gm 01/25/25 20:46 01/26/25 11:40 Dextrose 50% 25 Gm/50 Ml Syringe IV PUSH 12.5 gm PRN PRN Administration Hypoglycemia Protocol Fentanyl Citrate 25 mcg 01/25/25 20:51 02/02/25 01:12 Fentanyl Citrate Inj (*Crx) 100 Mcg/2 Ml Vial IV PUSH 25 mcg Q4H PRN Administration Pain Rated 6 or Greater Glucagon 1 mg 01/25/25 20:46 Glucagon For Inj 1 Mg Vial IM PRN PRN Hypoglycemia Protocol Glucose 15 gm 01/25/25 20:46 Glucose Oral Gel 15 Gm Of Glucse In 37.5 Gm Tube PO PRN PRN Hypoglycemia Protocol Hydrocortisone Sodium Succinate 100 mg 02/02/25 14:20 02/04/25 06:05 Hydrocortisone Sodium Succinate 100 Mg/2 Ml Vial IV PUSH 100 mg Q8HR KANDIS Administration Dextrose 1,000 mls @ 100 mls/hr 01/25/25 20:46 Dextrose 5% 1,000 Ml IVPB PRN PRN Hypoglycemia Protocol Meropenem 1 gm in 100 mls @ 200 mls/hr 01/29/25 13:00 02/04/25 06:05 IVPB 200 mls/hr Q8HR KANDIS Administration Doxycycline Hyclate 100 mg in 100 mls @ 100 mls/hr 02/02/25 11:00 02/04/25 09:40 Vibramycin 100 Mg/Ns 100 Ml IVPB 02/06/25 21:59 Infused Q12HR KANDIS Infusion Fentanyl Citrate 2,500 mcg in 250 mls @ 12.5 mls/hr 02/02/25 12:55 02/04/25 12:00 Fentanyl 2,500 Mcg/Ns 250 Ml IV CONT 125 mcg/hr .Q20H KANDIS 12.5 mls/hr Titration Protocol 125 MCG/HR Midazolam HCl 100 mg in 100 mls @ 4 mls/hr 02/02/25 12:55 02/04/25 12:00 Versed 100 Mg/Ns 100 Ml IV CONT 4 mg/hr .Q25H KANDIS 4 mls/hr Titration Protocol 4 MG/HR Norepinephrine Bitartrate 8 mg in 250 mls @ 3.75 mls/hr 02/02/25 14:10 02/04/25 12:00 Levophed 8 Mg/D5w 250 Ml IV CONT 2 mcg/min .Q24H KANDIS 3.75 mls/hr Titration Protocol 2 MCG/MIN Metronidazole 500 mg in 100 mls @ 100 mls/hr 02/04/25 12:00 02/04/25 12:17 Flagyl 500 Mg/Iso Soln 100 Ml IVPB 100 mls/hr Q6HR KANDIS Administration Insulin Aspart 4 - 8 units 02/02/25 18:00 02/04/25 12:18 Insulin Aspart (*Bkc) 100 Units/Ml SUB-Q Not Given Q6H [facility] Protocol Insulin Glargine 10 units 01/29/25 21:00 02/01/25 21:11 Insulin Glargine (*Bkc) 100 Units/Ml SUB-Q 10 units HS KANDIS Administration Insulin Glargine 5 units 02/04/25 09:00 02/04/25 08:35 Insulin Glargine (*Bkc) 100 Units/Ml SUB-Q 5 units DAILY KANDIS Administration Ipratropium Sarita 0.5 mg 02/02/25 14:20 02/04/25 08:52 Ipratropium Br 0.02% Inh Soln 0.5 Mg/2.5 Ml Vial INHALATION 0.5 mg Q6HRT KANDIS Administration Lactobacillus Acidophilus 1 pkt 02/03/25 09:00 02/04/25 12:18 Acidophilus Packet 1 Pkt Packet PO 1 pkt QID KANDIS Administration Levalbuterol HCl 0.63 mg 02/02/25 14:20 02/04/25 08:52 Levalbuterol Neb 1.25 Mg/3 Ml INHALATION 0.63 mg Q6HRT KANDIS Administration Midazolam HCl 2 mg 02/02/25 12:51 02/02/25 12:43 Midazolam Hcl (*Crx) 2 Mg/2 Ml Vial IV PUSH 2 mg PRN PRN Administration Sedation Multi-Ingred Cream/Lotion/Oil/Oint 1 applic 02/02/25 21:00 02/04/25 08:31 Mineral Oil/White Petrolatum Ointment EACH EYE 1 applic Q12HR KANDIS Administration Ondansetron HCl 4 mg 01/25/25 20:51 01/31/25 21:23 Ondansetron Inj 4 Mg/2 Ml Vial IV PUSH 4 mg Q6H PRN Administration Nausea And Vomiting Pantoprazole Sodium 40 mg 02/03/25 09:00 02/04/25 08:31 Pantoprazole Sodium Iv 40 Mg Vial IV PUSH 40 mg QAM KANDIS Administration Perflutren Lipid Microsphere 0 ml 02/04/25 07:37 Perflutren Lipid Microspheres 1.5 Ml Vial Diluted To 10 Ml Total Volume IV PUSH 02/07/25 07:37 ONCE PRN adequate visualization Protocol Sodium Chloride 10 ml 02/02/25 14:00 02/04/25 06:05 Central Line Flush IV PUSH 10 ml Q8HR KANDIS Administration Sodium Chloride 20 ml 02/02/25 13:47 02/03/25 21:40 Central Line Flush IV PUSH 20 ml PRN PRN Administration after blood draws Radiology Results: ITS Impressions Pelvis CT 01/26/25 14:17 IMPRESSION: 1. No significant change in a bilobed gas and fluid containing abscess in the deep pelvis. Patient canceled the planned percutaneous abscess drainage catheter placement due to discomfort despite attempts at repositioning. Abdomen/Pelvis CT 01/29/25 09:28 Impression: Stable large bilobed multilocular abscess in the pelvis extensively involving the distal sigmoid colon and rectum. Stable wall thickening of the distal sigmoid colon and rectum. Small right pleural effusion with right basilar atelectatic change. Cholelithiasis. Nephrolithiasis bilaterally, as detailed above. Catheter Placement CT 02/02/25 16:48 IMPRESSION: 1. Technically successful CT-guided drainage catheter placement with likely translocation and overwhelming sepsis following initial aspiration with subsequent cardiac and respiratory arrest. 2. 12-14 mL fluid was sent for aerobic and anaerobic cultures. Please see separate CODE BLUE flow sheet for additional details of the CODE BLUE portion of the case. Chest X-Ray 02/04/25 06:19 Impression: Moderate bilateral pleural effusions with mild pulmonary edema pattern. Support tubes, as above. Labs Labs: Laboratory Results - last 24 hr 02/03/25 02/03/25 02/03/25 05:01 08:09 15:32 WBC RBC Hgb 7.3 L Hct 23.2 L MCV MCH MCHC RDW Plt Count MPV Immature Gran % (Auto) Neut % (Auto) Lymph % (Auto) [place] % (Auto) Eos % (Auto) Baso % (Auto) Lymph # (Auto) [place] # (Auto) Eos # (Auto) Baso # (Auto) Abs Immat Gran (auto) Absolute Neuts (auto) Absolute Nucleated RBC Nucleated RBC % PT INR APTT Puncture Site ABG pH ABG pCO2 ABG pO2 ABG PO2/FiO2 Ratio ABG HCO3 ABG O2 Saturation ABG O2 Content ABG Base Excess A-a Gradient Oxyhemoglobin Carboxyhemoglobin Methemoglobin Reduced Hemoglobin Total Hemoglobin O2 Delivery Device O2 Liters/Min Not Reportable Minute Volume Vent Rate Vent Mode FiO2 Tidal Volume PEEP Peak Inspir Pressure Pressure Support Sodium 138 Potassium 3.6 Chloride 98 Carbon Dioxide 32 H Anion Gap 8 BUN 21 H Creatinine 1.27 H Estim Creat Clear Calc 41 Estimated GFR 41 L Glucose 226 H POC Capillary Glucose Lactic Acid Calcium 7.5 L Phosphorus Magnesium Total Bilirubin AST ALT Alkaline Phosphatase Total Protein Albumin Vancomycin Trough Crossmatch See Detail 02/03/25 02/03/25 02/03/25 17:04 21:44 23:15 WBC RBC Hgb 7.2 L Hct 23.0 L MCV MCH MCHC RDW Plt Count MPV Immature Gran % (Auto) Neut % (Auto) Lymph % (Auto) [place] % (Auto) Eos % (Auto) Baso % (Auto) Lymph # (Auto) [place] # (Auto) Eos # (Auto) Baso # (Auto) Abs Immat Gran (auto) Absolute Neuts (auto) Absolute Nucleated RBC Nucleated RBC % PT INR APTT Puncture Site ABG pH ABG pCO2 ABG pO2 ABG PO2/FiO2 Ratio ABG HCO3 ABG O2 Saturation ABG O2 Content ABG Base Excess A-a Gradient Oxyhemoglobin Carboxyhemoglobin Methemoglobin Reduced Hemoglobin Total Hemoglobin O2 Delivery Device O2 Liters/Min Minute Volume Vent Rate Vent Mode FiO2 Tidal Volume PEEP Peak Inspir Pressure Pressure Support Sodium Potassium Chloride Carbon Dioxide Anion Gap BUN Creatinine Estim Creat Clear Calc Estimated GFR Glucose POC Capillary Glucose 221 H 162 H Lactic Acid Calcium Phosphorus Magnesium Total Bilirubin AST ALT Alkaline Phosphatase Total Protein Albumin Vancomycin Trough Crossmatch 02/04/25 02/04/25 02/04/25 05:22 05:29 05:30 WBC 57.2 H* RBC 2.93 L Hgb 7.2 L Hct 23.4 L MCV 79.9 L MCH 24.6 L MCHC 30.8 L RDW 17.1 H Plt Count 240 MPV 10.5 H Immature Gran % (Auto) 5.4 H Neut % (Auto) 92.3 H Lymph % (Auto) 0.8 L [place] % (Auto) 1.5 L Eos % (Auto) 0.0 Baso % (Auto) 0.0 L Lymph # (Auto) 0.48 L [place] # (Auto) 0.8 H Eos # (Auto) 0.0 Baso # (Auto) 0.0 Abs Immat Gran (auto) 3.10 H Absolute Neuts (auto) 52.8 H Absolute Nucleated RBC 0.000 Nucleated RBC % 0.0 PT 18.0 H INR 1.5 APTT 37.3 H Puncture Site Artline ABG pH 7.495 H ABG pCO2 36.6 ABG pO2 83.6 ABG PO2/FiO2 Ratio 2.09 ABG HCO3 27.6 H ABG O2 Saturation 97.0 ABG O2 Content 9.9 L ABG Base Excess 4.0 A-a Gradient 159.5 Oxyhemoglobin 94.6 Carboxyhemoglobin 1.3 Methemoglobin 0.3 Reduced Hemoglobin 3.8 Total Hemoglobin 7.3 L* O2 Delivery Device Ventilator O2 Liters/Min Not Reportable Minute Volume Not Reportable Vent Rate 18 Vent Mode Cmv FiO2 40 Tidal Volume 420 PEEP 8 Peak Inspir Pressure Not Reportable Pressure Support Not Reportable Sodium 138 Potassium 4.2 Chloride 100 Carbon Dioxide 32 H Anion Gap 6 BUN 26 H Creatinine 1.28 H Estim Creat Clear Calc 41 Estimated GFR 41 L Glucose 212 H POC Capillary Glucose Lactic Acid 1.5 Calcium 7.6 L Phosphorus 3.9 Magnesium 2.2 Total Bilirubin 1.3 AST 37 H ALT 17 Alkaline Phosphatase 118 Total Protein 6.0 L Albumin 2.6 L Vancomycin Trough Crossmatch 02/04/25 02/04/25 08:54 12:13 WBC RBC Hgb Hct MCV MCH MCHC RDW Plt Count MPV Immature Gran % (Auto) Neut % (Auto) Lymph % (Auto) [place] % (Auto) Eos % (Auto) Baso % (Auto) Lymph # (Auto) [place] # (Auto) Eos # (Auto) Baso # (Auto) Abs Immat Gran (auto) Absolute Neuts (auto) Absolute Nucleated RBC Nucleated RBC % PT INR APTT Puncture Site ABG pH ABG pCO2 ABG pO2 ABG PO2/FiO2 Ratio ABG HCO3 ABG O2 Saturation ABG O2 Content ABG Base Excess A-a Gradient Oxyhemoglobin Carboxyhemoglobin Methemoglobin Reduced Hemoglobin Total Hemoglobin O2 Delivery Device O2 Liters/Min Minute Volume Vent Rate Vent Mode FiO2 Tidal Volume PEEP Peak Inspir Pressure Pressure Support Sodium Potassium Chloride Carbon Dioxide Anion Gap BUN Creatinine Estim Creat Clear Calc Estimated GFR Glucose POC Capillary Glucose 194 H Lactic Acid Calcium Phosphorus Magnesium Total Bilirubin AST ALT Alkaline Phosphatase Total Protein Albumin Vancomycin Trough 18.8 Crossmatch Quality VTE Prophylaxis VTE prophylaxis: pharmacologic ordered
--- NOTE | 2025-02-04 13:07 | PM.PNGS ---
Progress Note: A&P Assessment and Plan (1) Septic shock: Code(s): A41.9 - Sepsis, unspecified organism; R65.21 - Severe sepsis with septic shock Status: Acute Assessment and Plan: improving, wean pressors as maria isabel, cx reviewed and abx tailored appropriately (2) Intra-abdominal abscess: Code(s): K65.1 - Peritoneal abscess Status: Acute Assessment and Plan: cont drain and abx (3) Acute respiratory failure: Code(s): J96.00 - Acute respiratory failure, unspecified whether with hypoxia or hypercapnia Status: Acute Assessment and Plan: plan for weaning trail tomorrow Subjective Subjective Date/Time Seen: 02/04/25 13:07 Interval history: still intubated and sedated, slowly weaning off pressor support Review of Systems Review of Systems: ROS unobtainable: Yes unobtainable due to endotracheal tube Exam Const: Other: intubated, sedated Resp: Auscultation: diminished lung sounds Cardio: Rate: regular rate Rhythm: regular rhythm GI: Inspection: normal to inspection and non-distended GI Palp: No abdominal tenderness and Yes Soft to palpation Other: drain - bloody, purulent drainage Objective Data Vital Signs Vital Signs: Vital Signs - 24 hr 02/03/25 13:21 02/03/25 13:44 02/03/25 13:44 Temperature 36.4 C Pulse Rate 65 64 64 Respiratory Rate 18 18 Blood Pressure 127/58 L Pulse Oximetry 99 99 Oxygen Delivery Mechanical Ventilation Fraction of Inspired Oxygen 50 02/03/25 13:54 02/03/25 13:55 02/03/25 14:00 Temperature 36.4 C Pulse Rate 65 64 68 Respiratory Rate 18 18 Blood Pressure 134/60 132/59 L Pulse Oximetry 99 Oxygen Delivery Fraction of Inspired Oxygen 02/03/25 14:00 02/03/25 14:00 02/03/25 14:00 Temperature Pulse Rate 68 68 68 Respiratory Rate 18 18 Blood Pressure 132/58 L Pulse Oximetry Oxygen Delivery Fraction of Inspired Oxygen 02/03/25 14:00 02/03/25 14:00 02/03/25 14:00 Temperature 36.5 C Pulse Rate 68 68 68 Respiratory Rate 14 Blood Pressure 132/58 L 131/58 L Pulse Oximetry 99 Oxygen Delivery Fraction of Inspired Oxygen 02/03/25 15:41 02/03/25 16:00 02/03/25 16:00 Temperature 36.5 C Pulse Rate 69 64 66 Respiratory Rate 18 Blood Pressure 124/57 L 122/57 L 120/57 L Pulse Oximetry 95 Oxygen Delivery Fraction of Inspired Oxygen 02/03/25 16:00 02/03/25 16:00 02/03/25 16:00 Temperature Pulse Rate 64 64 64 Respiratory Rate 18 18 Blood Pressure 122/57 L Pulse Oximetry Oxygen Delivery Fraction of Inspired Oxygen 02/03/25 16:00 02/03/25 16:00 02/03/25 16:00 Temperature Pulse Rate 64 Respiratory Rate Blood Pressure 122/57 L Pulse Oximetry 95 Oxygen Delivery Mechanical Ventilation Fraction of Inspired Oxygen 40 40 02/03/25 16:00 02/03/25 16:02 02/03/25 17:13 Temperature Pulse Rate 65 64 65 Respiratory Rate Blood Pressure 112/54 L Pulse Oximetry 95 Oxygen Delivery Mechanical Ventilation Fraction of Inspired Oxygen 40 02/03/25 18:00 02/03/25 18:00 02/03/25 18:00 Temperature 36.6 C Pulse Rate 67 67 66 Respiratory Rate 12 Blood Pressure 96/49 L 95/49 L Pulse Oximetry 98 Oxygen Delivery Fraction of Inspired Oxygen 02/03/25 18:00 02/03/25 18:00 02/03/25 18:00 Temperature Pulse Rate 66 66 66 Respiratory Rate 18 18 Blood Pressure 96/49 L Pulse Oximetry Oxygen Delivery Fraction of Inspired Oxygen 02/03/25 18:00 02/03/25 20:00 02/03/25 20:00 Temperature Pulse Rate 66 65 65 Respiratory Rate 18 Blood Pressure 96/49 L 105/53 L Pulse Oximetry Oxygen Delivery Fraction of Inspired Oxygen 02/03/25 20:00 02/03/25 20:00 02/03/25 20:00 Temperature Pulse Rate 65 65 Respiratory Rate 18 Blood Pressure 105/53 L Pulse Oximetry 97 Oxygen Delivery Mechanical Ventilation Fraction of Inspired Oxygen 40 02/03/25 20:00 02/03/25 20:00 02/03/25 20:00 Temperature 36.6 C Pulse Rate 65 64 Respiratory Rate 18 Blood Pressure 106/54 L Pulse Oximetry 97 Oxygen Delivery Fraction of Inspired Oxygen 40 02/03/25 20:23 02/03/25 20:49 02/03/25 20:52 Temperature Pulse Rate 65 69 65 Respiratory Rate 18 Blood Pressure 88/48 L Pulse Oximetry 98 Oxygen Delivery Mechanical Ventilation Fraction of Inspired Oxygen 40 02/03/25 21:00 02/03/25 21:00 02/03/25 21:14 Temperature Pulse Rate 70 70 71 Respiratory Rate Blood Pressure 99/51 L 99/51 L 88/47 L Pulse Oximetry Oxygen Delivery Fraction of Inspired Oxygen 02/03/25 21:45 02/03/25 22:00 02/03/25 22:00 Temperature Pulse Rate 67 67 67 Respiratory Rate 18 18 Blood Pressure 135/59 L Pulse Oximetry Oxygen Delivery Fraction of Inspired Oxygen 02/03/25 22:00 02/03/25 22:00 02/03/25 22:00 Temperature Pulse Rate 67 67 67 Respiratory Rate Blood Pressure 123/56 L 123/56 L Pulse Oximetry Oxygen Delivery Fraction of Inspired Oxygen 02/03/25 22:00 02/03/25 22:48 02/03/25 22:48 Temperature 36.5 C Pulse Rate 67 64 64 Respiratory Rate 18 18 18 Blood Pressure 123/56 L Pulse Oximetry 97 Oxygen Delivery Fraction of Inspired Oxygen 02/03/25 23:33 02/04/25 00:00 02/04/25 00:00 Temperature Pulse Rate 95 Respiratory Rate Blood Pressure Pulse Oximetry 97 98 Oxygen Delivery Mechanical Ventilation Mechanical Ventilation Fraction of Inspired Oxygen 40 40 40 02/04/25 00:00 02/04/25 00:00 02/04/25 00:00 Temperature 36.4 C Pulse Rate 62 59 L 62 Respiratory Rate 18 18 Blood Pressure 114/55 L Pulse Oximetry 98 Oxygen Delivery Fraction of Inspired Oxygen 02/04/25 00:00 02/04/25 00:00 02/04/25 00:00 Temperature Pulse Rate 62 62 62 Respiratory Rate 18 Blood Pressure 114/55 L 114/55 L Pulse Oximetry Oxygen Delivery Fraction of Inspired Oxygen 02/04/25 02:00 02/04/25 02:00 02/04/25 02:00 Temperature 36.5 C Pulse Rate 62 62 62 Respiratory Rate 18 18 Blood Pressure 101/50 L Pulse Oximetry 98 Oxygen Delivery Fraction of Inspired Oxygen 02/04/25 02:00 02/04/25 02:00 02/04/25 02:00 Temperature Pulse Rate 62 61 61 Respiratory Rate 18 Blood Pressure 104/56 L 104/56 L Pulse Oximetry Oxygen Delivery Fraction of Inspired Oxygen 02/04/25 02:15 02/04/25 02:20 02/04/25 03:43 Temperature Pulse Rate 60 95 71 Respiratory Rate 18 18 Blood Pressure Pulse Oximetry 97 Oxygen Delivery Mechanical Ventilation Fraction of Inspired Oxygen 40 02/04/25 03:43 02/04/25 04:00 02/04/25 04:00 Temperature Pulse Rate 71 68 68 Respiratory Rate 18 18 Blood Pressure 128/75 Pulse Oximetry Oxygen Delivery Fraction of Inspired Oxygen 02/04/25 04:00 02/04/25 04:00 02/04/25 04:00 Temperature Pulse Rate 68 69 Respiratory Rate 18 Blood Pressure Pulse Oximetry 97 Oxygen Delivery Mechanical Ventilation Fraction of Inspired Oxygen 40 02/04/25 04:00 02/04/25 04:00 02/04/25 04:08 Temperature 36.4 C L Pulse Rate 64 68 Respiratory Rate 18 Blood Pressure 128/75 Pulse Oximetry 97 98 Oxygen Delivery Mechanical Ventilation Fraction of Inspired Oxygen 40 40 02/04/25 06:00 02/04/25 06:00 02/04/25 06:00 Temperature Pulse Rate 58 L 58 L 58 L Respiratory Rate 18 28 H Blood Pressure 126/60 Pulse Oximetry Oxygen Delivery Fraction of Inspired Oxygen 02/04/25 06:00 02/04/25 06:00 02/04/25 06:28 Temperature 36.3 C L Pulse Rate 53 L 59 L 55 L Respiratory Rate 18 Blood Pressure 117/60 168/71 H Pulse Oximetry 97 Oxygen Delivery Fraction of Inspired Oxygen 02/04/25 08:00 02/04/25 08:00 02/04/25 08:00 Temperature Pulse Rate 53 L 53 L 53 L Respiratory Rate 18 18 Blood Pressure 130/61 Pulse Oximetry Oxygen Delivery Fraction of Inspired Oxygen 02/04/25 08:00 02/04/25 08:00 02/04/25 08:00 Temperature 36.1 C L Pulse Rate 52 L 51 L Respiratory Rate 18 Blood Pressure 131/61 Pulse Oximetry 99 97 Oxygen Delivery Mechanical Ventilation Fraction of Inspired Oxygen 40 02/04/25 08:00 02/04/25 08:30 02/04/25 08:45 Temperature Pulse Rate 51 L 53 L Respiratory Rate Blood Pressure 138/63 127/61 Pulse Oximetry Oxygen Delivery Fraction of Inspired Oxygen 40 02/04/25 08:54 02/04/25 09:13 02/04/25 09:15 Temperature Pulse Rate 59 L 63 63 Respiratory Rate 18 18 Blood Pressure 84/43 L Pulse Oximetry Oxygen Delivery Fraction of Inspired Oxygen 02/04/25 09:15 02/04/25 09:27 02/04/25 09:43 Temperature Pulse Rate 55 L 62 49 L Respiratory Rate Blood Pressure 81/42 L 136/60 Pulse Oximetry 98 Oxygen Delivery Mechanical Ventilation Fraction of Inspired Oxygen 40 02/04/25 10:00 02/04/25 10:00 02/04/25 10:00 Temperature 36.1 C L Pulse Rate 53 L 53 L 53 L Respiratory Rate 18 18 Blood Pressure 122/55 L Pulse Oximetry 97 Oxygen Delivery Fraction of Inspired Oxygen 02/04/25 10:00 02/04/25 10:00 02/04/25 12:00 Temperature Pulse Rate 53 L 53 L 56 L Respiratory Rate 18 18 Blood Pressure 122/55 L Pulse Oximetry Oxygen Delivery Fraction of Inspired Oxygen 02/04/25 12:00 02/04/25 12:00 02/04/25 12:00 Temperature 36.1 C L Pulse Rate 56 L 56 L 56 L Respiratory Rate 18 18 Blood Pressure 118/55 L 118/55 L Pulse Oximetry 99 Oxygen Delivery Fraction of Inspired Oxygen 02/04/25 12:00 02/04/25 12:00 02/04/25 12:00 Temperature Pulse Rate 57 L Respiratory Rate Blood Pressure Pulse Oximetry 99 Oxygen Delivery Mechanical Ventilation Fraction of Inspired Oxygen 40 40 02/04/25 12:14 Temperature Pulse Rate 53 L Respiratory Rate Blood Pressure Pulse Oximetry 99 Oxygen Delivery Mechanical Ventilation Fraction of Inspired Oxygen 40 Intake/Output Intake/Output: Intake & Output 02/01/25 02/02/25 02/03/25 02/04/25 23:59 23:59 23:59 23:59 Intake Total 1320 2129.4 3748.8 1283.0 Output Total 4208 428 8277 650 Balance -130 1394.4 2568.8 633.0 Meds/Results Medications: Active Medications Generic Name Dose Route Start Last Admin Trade Name Freq PRN Reason Stop Dose Admin Acetaminophen 650 mg 01/25/25 20:51 02/01/25 19:04 Acetaminophen 325 Mg Tablet PO 650 mg Q4H PRN Administration Headache Dextrose 12.5 gm 01/25/25 20:46 01/26/25 11:40 Dextrose 50% 25 Gm/50 Ml Syringe IV PUSH 12.5 gm PRN PRN Administration Hypoglycemia Protocol Fentanyl Citrate 25 mcg 01/25/25 20:51 02/02/25 01:12 Fentanyl Citrate Inj (*Crx) 100 Mcg/2 Ml Vial IV PUSH 25 mcg Q4H PRN Administration Pain Rated 6 or Greater Glucagon 1 mg 01/25/25 20:46 Glucagon For Inj 1 Mg Vial IM PRN PRN Hypoglycemia Protocol Glucose 15 gm 01/25/25 20:46 Glucose Oral Gel 15 Gm Of Glucse In 37.5 Gm Tube PO PRN PRN Hypoglycemia Protocol Hydrocortisone Sodium Succinate 100 mg 02/02/25 14:20 02/04/25 06:05 Hydrocortisone Sodium Succinate 100 Mg/2 Ml Vial IV PUSH 100 mg Q8HR KANDIS Administration Dextrose 1,000 mls @ 100 mls/hr 01/25/25 20:46 Dextrose 5% 1,000 Ml IVPB PRN PRN Hypoglycemia Protocol Meropenem 1 gm in 100 mls @ 200 mls/hr 01/29/25 13:00 02/04/25 06:05 IVPB 200 mls/hr Q8HR KANDIS Administration Doxycycline Hyclate 100 mg in 100 mls @ 100 mls/hr 02/02/25 11:00 02/04/25 09:40 Vibramycin 100 Mg/Ns 100 Ml IVPB 02/06/25 21:59 Infused Q12HR KANDIS Infusion Fentanyl Citrate 2,500 mcg in 250 mls @ 12.5 mls/hr 02/02/25 12:55 02/04/25 12:00 Fentanyl 2,500 Mcg/Ns 250 Ml IV CONT 125 mcg/hr .Q20H KANDIS 12.5 mls/hr Titration Protocol 125 MCG/HR Midazolam HCl 100 mg in 100 mls @ 4 mls/hr 02/02/25 12:55 02/04/25 12:00 Versed 100 Mg/Ns 100 Ml IV CONT 4 mg/hr .Q25H KANDIS 4 mls/hr Titration Protocol 4 MG/HR Norepinephrine Bitartrate 8 mg in 250 mls @ 3.75 mls/hr 02/02/25 14:10 02/04/25 12:00 Levophed 8 Mg/D5w 250 Ml IV CONT 2 mcg/min .Q24H KANDIS 3.75 mls/hr Titration Protocol 2 MCG/MIN Metronidazole 500 mg in 100 mls @ 100 mls/hr 02/04/25 12:00 02/04/25 12:17 Flagyl 500 Mg/Iso Soln 100 Ml IVPB 100 mls/hr Q6HR KANDIS Administration Insulin Aspart 4 - 8 units 02/02/25 18:00 02/04/25 12:18 Insulin Aspart (*Bkc) 100 Units/Ml SUB-Q Not Given Q6H [facility] Protocol Insulin Glargine 10 units 01/29/25 21:00 02/01/25 21:11 Insulin Glargine (*Bkc) 100 Units/Ml SUB-Q 10 units HS KANDIS Administration Insulin Glargine 5 units 02/04/25 09:00 02/04/25 08:35 Insulin Glargine (*Bkc) 100 Units/Ml SUB-Q 5 units DAILY KANDIS Administration Ipratropium [place] 0.5 mg 02/02/25 14:20 02/04/25 08:52 Ipratropium Br 0.02% Inh Soln 0.5 Mg/2.5 Ml Vial INHALATION 0.5 mg Q6HRT KANDIS Administration Lactobacillus Acidophilus 1 pkt 02/03/25 09:00 02/04/25 12:18 Acidophilus Packet 1 Pkt Packet PO 1 pkt QID KANDIS Administration Levalbuterol HCl 0.63 mg 02/02/25 14:20 02/04/25 08:52 Levalbuterol Neb 1.25 Mg/3 Ml INHALATION 0.63 mg Q6HRT KANDIS Administration Midazolam HCl 2 mg 02/02/25 12:51 02/02/25 12:43 Midazolam Hcl (*Crx) 2 Mg/2 Ml Vial IV PUSH 2 mg PRN PRN Administration Sedation Multi-Ingred Cream/Lotion/Oil/Oint 1 applic 02/02/25 21:00 02/04/25 08:31 Mineral Oil/White Petrolatum Ointment EACH EYE 1 applic Q12HR KANDIS Administration Ondansetron HCl 4 mg 01/25/25 20:51 01/31/25 21:23 Ondansetron Inj 4 Mg/2 Ml Vial IV PUSH 4 mg Q6H PRN Administration Nausea And Vomiting Pantoprazole Sodium 40 mg 02/03/25 09:00 02/04/25 08:31 Pantoprazole Sodium Iv 40 Mg Vial IV PUSH 40 mg QAM KANDIS Administration Perflutren Lipid Microsphere 0 ml 02/04/25 07:37 Perflutren Lipid Microspheres 1.5 Ml Vial Diluted To 10 Ml Total Volume IV PUSH 02/07/25 07:37 ONCE PRN adequate visualization Protocol Sodium Chloride 10 ml 02/02/25 14:00 02/04/25 06:05 Central Line Flush IV PUSH 10 ml Q8HR KANDIS Administration Sodium Chloride 20 ml 02/02/25 13:47 02/03/25 21:40 Central Line Flush IV PUSH 20 ml PRN PRN Administration after blood draws Radiology Results: ITS Impressions Pelvis CT 01/26/25 14:17 IMPRESSION: 1. No significant change in a bilobed gas and fluid containing abscess in the deep pelvis. Patient canceled the planned percutaneous abscess drainage catheter placement due to discomfort despite attempts at repositioning. Abdomen/Pelvis CT 01/29/25 09:28 Impression: Stable large bilobed multilocular abscess in the pelvis extensively involving the distal sigmoid colon and rectum. Stable wall thickening of the distal sigmoid colon and rectum. Small right pleural effusion with right basilar atelectatic change. Cholelithiasis. Nephrolithiasis bilaterally, as detailed above. Catheter Placement CT 02/02/25 16:48 IMPRESSION: 1. Technically successful CT-guided drainage catheter placement with likely translocation and overwhelming sepsis following initial aspiration with subsequent cardiac and respiratory arrest. 2. 12-14 mL fluid was sent for aerobic and anaerobic cultures. Please see separate CODE BLUE flow sheet for additional details of the CODE BLUE portion of the case. Chest X-Ray 02/04/25 06:19 Impression: Moderate bilateral pleural effusions with mild pulmonary edema pattern. Support tubes, as above. Labs Labs: Laboratory Results - last 24 hr 02/03/25 02/03/25 02/03/25 05:01 08:09 15:32 WBC RBC Hgb 7.3 L Hct 23.2 L MCV MCH MCHC RDW Plt Count MPV Immature Gran % (Auto) Neut % (Auto) Lymph % (Auto) [place] % (Auto) Eos % (Auto) Baso % (Auto) Lymph # (Auto) [place] # (Auto) Eos # (Auto) Baso # (Auto) Abs Immat Gran (auto) Absolute Neuts (auto) Absolute Nucleated RBC Nucleated RBC % PT INR APTT Puncture Site ABG pH ABG pCO2 ABG pO2 ABG PO2/FiO2 Ratio ABG HCO3 ABG O2 Saturation ABG O2 Content ABG Base Excess A-a Gradient Oxyhemoglobin Carboxyhemoglobin Methemoglobin Reduced Hemoglobin Total Hemoglobin O2 Delivery Device O2 Liters/Min Not Reportable Minute Volume Vent Rate Vent Mode FiO2 Tidal Volume PEEP Peak Inspir Pressure Pressure Support Sodium 138 Potassium 3.6 Chloride 98 Carbon Dioxide 32 H Anion Gap 8 BUN 21 H Creatinine 1.27 H Estim Creat Clear Calc 41 Estimated GFR 41 L Glucose 226 H POC Capillary Glucose Lactic Acid Calcium 7.5 L Phosphorus Magnesium Total Bilirubin AST ALT Alkaline Phosphatase Total Protein Albumin Vancomycin Trough Crossmatch See Detail 02/03/25 02/03/25 02/03/25 17:04 21:44 23:15 WBC RBC Hgb 7.2 L Hct 23.0 L MCV MCH MCHC RDW Plt Count MPV Immature Gran % (Auto) Neut % (Auto) Lymph % (Auto) [place] % (Auto) Eos % (Auto) Baso % (Auto) Lymph # (Auto) [place] # (Auto) Eos # (Auto) Baso # (Auto) Abs Immat Gran (auto) Absolute Neuts (auto) Absolute Nucleated RBC Nucleated RBC % PT INR APTT Puncture Site ABG pH ABG pCO2 ABG pO2 ABG PO2/FiO2 Ratio ABG HCO3 ABG O2 Saturation ABG O2 Content ABG Base Excess A-a Gradient Oxyhemoglobin Carboxyhemoglobin Methemoglobin Reduced Hemoglobin Total Hemoglobin O2 Delivery Device O2 Liters/Min Minute Volume Vent Rate Vent Mode FiO2 Tidal Volume PEEP Peak Inspir Pressure Pressure Support Sodium Potassium Chloride Carbon Dioxide Anion Gap BUN Creatinine Estim Creat Clear Calc Estimated GFR Glucose POC Capillary Glucose 221 H 162 H Lactic Acid Calcium Phosphorus Magnesium Total Bilirubin AST ALT Alkaline Phosphatase Total Protein Albumin Vancomycin Trough Crossmatch 02/04/25 02/04/25 02/04/25 05:22 05:29 05:30 WBC 57.2 H* RBC 2.93 L Hgb 7.2 L Hct 23.4 L MCV 79.9 L MCH 24.6 L MCHC 30.8 L RDW 17.1 H Plt Count 240 MPV 10.5 H Immature Gran % (Auto) 5.4 H Neut % (Auto) 92.3 H Lymph % (Auto) 0.8 L [place] % (Auto) 1.5 L Eos % (Auto) 0.0 Baso % (Auto) 0.0 L Lymph # (Auto) 0.48 L [place] # (Auto) 0.8 H Eos # (Auto) 0.0 Baso # (Auto) 0.0 Abs Immat Gran (auto) 3.10 H Absolute Neuts (auto) 52.8 H Absolute Nucleated RBC 0.000 Nucleated RBC % 0.0 PT 18.0 H INR 1.5 APTT 37.3 H Puncture Site Artline ABG pH 7.495 H ABG pCO2 36.6 ABG pO2 83.6 ABG PO2/FiO2 Ratio 2.09 ABG HCO3 27.6 H ABG O2 Saturation 97.0 ABG O2 Content 9.9 L ABG Base Excess 4.0 A-a Gradient 159.5 Oxyhemoglobin 94.6 Carboxyhemoglobin 1.3 Methemoglobin 0.3 Reduced Hemoglobin 3.8 Total Hemoglobin 7.3 L* O2 Delivery Device Ventilator O2 Liters/Min Not Reportable Minute Volume Not Reportable Vent Rate 18 Vent Mode Cmv FiO2 40 Tidal Volume 420 PEEP 8 Peak Inspir Pressure Not Reportable Pressure Support Not Reportable Sodium 138 Potassium 4.2 Chloride 100 Carbon Dioxide 32 H Anion Gap 6 BUN 26 H Creatinine 1.28 H Estim Creat Clear Calc 41 Estimated GFR 41 L Glucose 212 H POC Capillary Glucose Lactic Acid 1.5 Calcium 7.6 L Phosphorus 3.9 Magnesium 2.2 Total Bilirubin 1.3 AST 37 H ALT 17 Alkaline Phosphatase 118 Total Protein 6.0 L Albumin 2.6 L Vancomycin Trough Crossmatch 02/04/25 02/04/25 08:54 12:13 WBC RBC Hgb Hct MCV MCH MCHC RDW Plt Count MPV Immature Gran % (Auto) Neut % (Auto) Lymph % (Auto) [place] % (Auto) Eos % (Auto) Baso % (Auto) Lymph # (Auto) [place] # (Auto) Eos # (Auto) Baso # (Auto) Abs Immat Gran (auto) Absolute Neuts (auto) Absolute Nucleated RBC Nucleated RBC % PT INR APTT Puncture Site ABG pH ABG pCO2 ABG pO2 ABG PO2/FiO2 Ratio ABG HCO3 ABG O2 Saturation ABG O2 Content ABG Base Excess A-a Gradient Oxyhemoglobin Carboxyhemoglobin Methemoglobin Reduced Hemoglobin Total Hemoglobin O2 Delivery Device O2 Liters/Min Minute Volume Vent Rate Vent Mode FiO2 Tidal Volume PEEP Peak Inspir Pressure Pressure Support Sodium Potassium Chloride Carbon Dioxide Anion Gap BUN Creatinine Estim Creat Clear Calc Estimated GFR Glucose POC Capillary Glucose 194 H Lactic Acid Calcium Phosphorus Magnesium Total Bilirubin AST ALT Alkaline Phosphatase Total Protein Albumin Vancomycin Trough 18.8 Crossmatch
[2025-02-04 17:24] LABS: Glucose Point of Care 219 mg/dl (65-105)
[2025-02-04] MEDS: FENTANYL 2,500MCG/NS250ML(*CRX 2,500 MCG/250 ML BAG 7.5 MCG IV CONT (23:06)
[2025-02-04] MEDS: MIDAZOLAM 100MG/NS 100ML(*CRX) 100 MG/100 ML BAG IV CONT (23:08)
[2025-02-04 23:54] LABS: Glucose Point of Care 226 mg/dl (65-105)
[2025-02-05] VITALS (39 sets, daily range): BP systolic 78–148; BP diastolic 52–96; PULSE 69–112; RESP 16–26; TEMP 35.9–36.8; O2SAT 91–99
--- NOTE | 2025-02-05 | ECHO_ITS ---
Patient Info Name: Bharti Neal Age: 74 years : 1950 Gender: Female Ht: 66 in Wt: 221 lbs BSA: 2.20 m2 HR: 88 bpm BP: 100 / 54 mmHg Heart Rhythm: Atrial Fibrillation Technical Quality: Good Exam Date: 02/05/2025 10:00 AM Exam Location: Echo Lab Patient Status: Inpatient Admit Date: 01/26/2025 Staff Ordering Physician: Colette Foley MD Erosion Control Specialist: Ashanti Astorga RDCS Attending Provider: Elvira Carrera MD Referring Physician: Alaina JUAN; Exam Type: CA echo doppler color flow Study Info Indications - Septic shock Complete two-dimensional, color flow and Doppler transthoracic echocardiogram is performed. Summary 1. Complete two-dimensional, color flow and Doppler transthoracic echocardiogram is performed. 2. Left ventricular systolic function is normal, estimated at 55-60%. 3. There is mildly increased left ventricular wall thickness. 4. The left ventricular diastolic function is grade I diastolic dysfunction. 5. There is mild tricuspid valve regurgitation. 6. Mild pulmonary hypertension, estimated pulmonary arterial systolic pressure is 46 mmHg. Left Ventricle Left ventricular chamber dimension is normal. Left ventricular systolic function is normal, estimated at 55-60%. There is mildly increased left ventricular wall thickness. Left ventricular septal wall motion is normal. The left ventricular diastolic function is grade I diastolic dysfunction. Right Ventricle Right ventricular chamber dimension is normal. Right ventricular systolic function is normal. Left Atria Left atrial chamber dimension is normal. Right Atria Right atrial chamber dimension is normal. Aortic Valve The aortic valve is trileaflet. There is no aortic valve sclerosis. There is no aortic valve stenosis. There is no aortic valve regurgitation. Pulmonic Valve The pulmonic valve is normal. There is no pulmonic valve stenosis. There is trace pulmonic regurgitation. Mitral Valve The mitral valve has normal leaflets. There is no mitral valve stenosis. There is no mitral valve regurgitation. Tricuspid Valve The tricuspid valve leaflets are normal. There is no significant tricuspid valve stenosis. There is mild tricuspid valve regurgitation. Mild pulmonary hypertension, estimated pulmonary arterial systolic pressure is 46 mmHg. Pericardium/Pleural The pericardium appears normal. There is no pericardial effusion. Inferior Vena Cava Dilated inferior vena cava with >50% collapse upon inspiration consistent with elevated right atrial pressure, 10 mmHg. Aorta The aortic root size at the sinus of Valsalva is normal. The prox ascending aorta size is normal. Left Ventricular Outflow Tract Name Value Normal LVOT 2D LVOT Diameter 2.0 cm LVOT Doppler LVOT Peak Gradient 3 mmHg LVOT Mean Gradient 2 mmHg LVOT VTI 19 cm LVOT VTI/AV VTI Ratio 0.8 LVOT Stroke Volume 57 ml LVOT CO 5.1 l/min LVOT CI 2.3 l/min/m2 Pulmonic Valve Name Value Normal RVOT Doppler RVOT Peak Gradient 2 mmHg PV Doppler PV Peak Gradient 4 mmHg PV Regurgitation Doppler IN Peak End Diastolic Velocity 113 cm/s Mitral Valve Name Value Normal MV Doppler MV Decel [place] 615 cm/s2 MV PHT 34 ms MV Area (PHT) 6.4 cm2 4.0-5.0 MV Diastolic Function MV E Peak Velocity 72 cm/s MV A Peak Velocity 2 cm/s MV E/A 32.9 MV Decel Time 118 ms MV Annular TDI MV E/e' (Septal) 9.7 <=8.0 MV E/e' (Lateral) 5.3 <=8.0 MV E/e' (Average) 7.5 Tricuspid Valve Name Value Normal TV Regurgitation Doppler TR Peak Velocity 300 cm/s TR Peak Gradient 36 mmHg Estimated PAP/RSVP RA Pressure 10 mmHg <=5 PA Systolic Pressure 46 mmHg <36 RV Systolic Pressure 46 mmHg <36 Aortic Valve Name Value Normal AV Doppler AV Peak Velocity 134 cm/s AV Peak Gradient 4 mmHg AV Mean Gradient 2 mmHg AV VTI 24 cm AV Area (Cont Eq VTI) 2.4 cm2 >=3.0 AV Area (Cont Eq Armen) 2.3 cm2 AV Regurgitation 2D LVOT Area 3.0 cm2 Ventricles Name Value Normal LV Dimensions 2D/MM IVS Diastolic Thickness (2D) 1.3 cm 0.6-1.0 LVID Diastole (2D) 4.6 cm 3.8-5.2 LVIW Diastolic Thickness (2D) 1.0 cm 0.6-0.9 LVID Systole (2D) 3.3 cm 2.2-3.5 LVOT Diameter 2.0 cm LV Mass (2D Cubed) 198.54 g 67.00-162.00 LV Mass Index (2D Cubed) 90 g/m2 43-95 Relative Wall Thickness (2D) 0.45 LV Fractional Shortening/Ejection Fraction 2D/MM LV Fractional Shortening (2D) 29 % 27-45 LV EF (2D Teicholz) 56 % 54-74 LV Diastolic Volume (4C MOD) 101 ml LV EF (4C MOD) 57 % LV Diastolic Volume (2C MOD) 113 ml LV EF (2C MOD) 55 % LV Diastolic Volume (BP MOD) 112 ml 46-106 LV Diastolic Volume Index (BP MOD) 51 ml/m2 29-61 LV Systolic Volume (BP MOD) 48 ml 14-42 LV Systolic Volume Index (BP MOD) 22 ml/m2 8-24 LV EF (BP MOD) 57 % 54-74 LV Diastolic Length (4C) 7.2 cm LV Systolic Length (4C) 6.5 cm LV Stroke Volume (4C MOD) 57 ml Atria Name Value Normal LA Dimensions LA Volume (4C A-L) 57 ml LA Volume (BP A-L) 61 ml RA Dimensions RA Area (4C) 14.1 cm2 <=18.0 Report Signatures
[2025-02-05] MEDS: metroNIDAZOLE 500 MG/ISO 100ML 500 MG/100 ML BAG 100 MG IVPB ×5 (00:44→23:56)
[2025-02-05] MEDS: INSULIN ASPART (*BKC) 100 UNITS/ML SUB-Q ×5 (00:44→23:56)
[2025-02-05] MEDS: IPRATROPIUM BR 0.02% INH SOLN 0.5 MG/2.5 ML VIAL INHALATION ×4 (02:07→20:25)
[2025-02-05] MEDS: LEVALBUTEROL NEB 1.25 MG/3 ML 0.63 MG INHALATION ×4 (02:08→20:25)
[2025-02-05 04:36] LABS: Alveolar/Arterial O2 Gradient 86.2 mmHg; Base Excess ABG 4.4 mEq/l (+/-2.0); Fractional Inspired Oxygen 30 %; HCO3 ABG 27.5 mEq/l (22.0-26.0); Methemoglobin ABG 0.3 %THb (0-1.5); Oxygen Content ABG 10.3 %vol (16.0-22.0); Oxygen Saturation ABG 97.5 % (95.0-100.0); Oxyhemoglobin 95.7 % THb (90.0-100.0); PO2 ABG 87.8 mmHg (80.0-100.0); PO2 FiO2 Ratio Arterial Blood 2.93 %
[2025-02-05 04:37] LABS: pH ABG 7.525 (7.350-7.450)
[2025-02-05 04:38] LABS: Total Hemoglobin 7.5 g/dL (12.0-18.0)
[2025-02-05 04:39] LABS: Device VENTILATOR; Modified Allen's Test Pass; Site Drawn ARTLINE
[2025-02-05 04:41] LABS: Arterial Blood Gas PEEP 8 cmH2O; Arterial Blood Gas Tidal Volume 420 ml; Arterial Blood Gas Vent Mode CMV; Arterial Blood Gas Ventilator rate 18 /MIN; Basophils Absolute Auto 0.1 K/mm3 (0.0-0.1); Basophils Percent Auto 0.3 % (0.2-1.2); Hematocrit 22.4 % (37.0-47.0); Immature Granulocyte Absolute 1.43 K/mm3 (0.00-0.031); Immature Granulocyte Percent A 3.9 % (0-0.5); Lymphocytes Absolute Auto 0.47 K/mm3 (0.9-3.2); Lymphocytes Percent Auto 1.3 % (18.3-44.2); Mean Corpuscular HGB Conc 31.3 g/dl (32-36); Mean Corpuscular Hemoglobin 24.8 pg (26-34); Mean Corpuscular Volume 79.4 fl (80-100); Mean Platelet Volume 10.5 fl (7.4-10.4); Monocytes Absolute Auto 0.4 K/mm3 (0.1-0.6); Monocytes Percent Auto 1.2 % (2.6-8.5); Neutrophils Absolute Auto 34.5 K/mm3 (1.3-6.7); Neutrophils Percent Auto 93.3 % (45.5-73.1); Nucleated Red Blood Cells Perc 0.1 % (0.0-0.2); Platelet Count Result 170 k/mm3 (150-375); Red Blood Count 2.82 M/mm3 (4.2-5.4); Red Cell Distribution Width 17.3 % (11.5-14.5); White Blood Count 36.9 K/mm3 (4.5-10.0)
[2025-02-05 04:47] LABS: Alanine Aminotransferase 16 U/L (6-35); Albumin Level 2.4 g/dL (3.5-5.1); Alkaline Phosphatase 111 U/L (38-126); Anion Gap 5 mmol/L (4-12); Aspartate Amino Transferase 20 U/L (14-36); Bilirubin,Total 0.8 mg/dL (0.2-1.3); Blood Urea Nitrogen 38 mg/dL (7-17); Calcium 7.8 mg/dL (8.4-10.2); Carbon Dioxide 31 mmol/L (22-30); Chloride 103 mmol/L (98-107); Estimated CRCL calculation 45 ml/min; Estimated Glomerular Filt Rate 46; Glucose 240 mg/dL (65-110); Lactic Acid Reflex 1.4 mmol/L (0.7-2.0); Magnesium 2.3 mg/dL (1.6-2.3); Phosphorus 3.4 mg/dL (2.5-4.5); Potassium 3.7 mmol/L (3.4-5.0); Sodium 139 mmol/L (137-145)
[2025-02-05 05:01] LABS: Anisocytosis 1+; Band Neutrophils Percent 0 % (0-6); Hypochromasia 1+; Microcytosis 1+ (NORMAL); Platelet Estimate Adequate (Adequate); Schistocytes None Seen
[2025-02-05] MEDS: HYDROCORTISONE SODIUM SUCCINATE 100 MG/2 ML VIAL IV PUSH ×3 (06:13→21:05)
[2025-02-05] MEDS: CENTRAL LINE FLUSH 10 ML IV PUSH ×3 (06:14→21:56)
[2025-02-05] MEDS: MEROPENEM 1 GM/NS 100 ML 1 GM/100 ML BAG IVPB ×3 (06:14→21:56)
--- NOTE | 2025-02-05 08:42 | WPDINTPN ---
Progress Note: A&P Assessment and Plan (1) Cardiac arrest: Code(s): I46.9 - Cardiac arrest, cause unspecified Status: Acute Assessment and Plan: Patient had a cardiac arrest after placement of a percutaneous drain in the pelvic abscess. Could be related to vasovagal, translocation of bacteria, hypoxia as patient was laying flat, hypovolemia, acidosis -successful ROSC x2, intubated in the CT scan suite by ER physician -patient did follow commands post code a continue, so not a candidate for targeted temperature management -will continue to treat underlying cause (2) Septic shock: Code(s): A41.9 - Sepsis, unspecified organism; R65.21 - Severe sepsis with septic shock Status: Acute Assessment and Plan: 02/01:In the ICU patient dropped her blood pressures -patient has been adequately fluid-resuscitated with IV fluids and albumin -continue Levophed, will maintain MAP > 65 mmHg at all times for adequate end organ perfusion -Bobo-Synephrine and vasopressin was discontinued -01/25: Blood cultures negative x2 -02/02: repeat blood cultures -growing E coli (pansensitive) and Clostridium ramosum -02/02: Abscess fluid culture growing E coli and Bacteroides fragilis -continue stress dose steroids 02/03: WBC count up to 64, could be related to septic shock, infection, leukomoid reaction, steroids. Will continue to monitor -WBC count is trending down, patient is afebrile, continue to monitor --continue meropenem, Flagyl 02/04: Discontinue vancomycin -continue doxycycline for 5 days (3) Acute respiratory failure: Code(s): J96.00 - Acute respiratory failure, unspecified whether with hypoxia or hypercapnia Status: Acute Assessment and Plan: Acute respiratory failure likely related to cardiac arrest possible from septic shock, infection, hypovolemia, translocation of bacteria, acidosis, hypoxia -patient intubated in the CT scan suite by ER physician -currently on CMV mode of ventilation, peep of 8, will wean FiO2 to maintain O2 sats greater than 92% -chest x-ray and ABGs reviewed -ventilator adjusted -continue Xopenex and Atrovent nebulizer -sedated with fentanyl and Versed infusion, maintain RASS of 0 to -2. Have asked the bedside RN to weaned sedation, patient has a history of panic/anxiety disorder, may start Precedex and wean off fentanyl and Versed. Will place patient on SBT and evaluate for extubation (4) Intra-abdominal abscess: Code(s): K65.1 - Peritoneal abscess Status: Acute Assessment and Plan: Intra-abdominal abscess, status post percutaneous IR drain placement on 02/01/2025 -draining purulent material, cultures as above -surgery is following the patient -continue antibiotics as above (5) Diabetes 1.5, managed as type 2: Code(s): E13.9 - Other specified diabetes mellitus without complications Status: Acute Assessment and Plan: Continue Accu-Cheks and sliding scale insulin -tolerating trickle tube feeds, hyperglycemic, -increase Lantus (6) Hypertension: Qualifiers: Hypertension type: unspecified Qualified Code(s): I10 - Essential (primary) hypertension Code(s): I10 - Essential (primary) hypertension Status: Acute Assessment and Plan: Hold all antihypertensives, as patient is on pressors (7) Anemia: Code(s): D64.9 - Anemia, unspecified Status: Acute Assessment and Plan: 02/03: Hemoglobin dropped to 6.3. -will transfuse 1 unit of packed RBC -hemoglobin stable -02/05: hemoglobin dropped to 7.0 -iron panel reflective of iron deficiency anemia and/or anemia of chronic disease -check vitamin B12 and folic acid levels -stool for occult blood -consult GI Plan DVT prophylaxis: Hold Lovenox due to anemia, SCD orders in place Stress ulcer prophylaxis: Protonix IV q.12 hours Nutrition: Advanced tube feeds Code Status: Full code Critical Care Time Spent: 33 minutes Discussed with patient daughter Leslye, and updated with patient's condition and plan of care. I answered all her questions. Due to a high probability of clinically significant, life threatening deterioration, the patient required my highest level of preparedness to intervene emergently and I personally spent this critical care time directly and personally managing the patient. This critical care time included obtaining a history; examining the patient; pulse oximetry; ordering and review of studies; arranging urgent treatment with development of a management plan; evaluation of patient's response to treatment; frequent reassessment; and discussions with other providers. It was exclusive of separately billable procedures and treating other patients and teaching time. Please see Assessment and Plan section and the rest of the note for further information on patient assessment and treatment This dictation may have been done utilizing a voice recognition system. Attempts have been made to correct errors. However, there may be uncorrected grammatical, spelling, and recognitions errors present. Subjective Date/time seen: 02/05/25 08:42 Interval history: Reason for consult: Cardiac arrest, acute respiratory failure, abdominal abscess, sepsis 02/05/2025: Patient seen and and examined in the ICU, remains intubated on CMV mode of ventilation, peep of 8, 30% FiO2. Sedated with fentanyl and Versed infusion, patient does open her eyes, withdraw to pain stimulus but does not follow simple commands. Urine output has improved, patient has been afebrile overnight. On Levophed 1-2 mcg/min this morning. Off vasopressin and Bobo-Synephrine. Bowel movements have slowed down. White count trending Review of Systems Review of Systems: ROS unobtainable: Yes unobtainable due to endotracheal tube, unobtainable due to medical condition and unobtainable due to mental status Exam Narrative: General: Obese female currently in no acute distress HEENT:? Pupils equal and reactive, sclera is clear, ETT in place Neck:? Supple Respiratory:? Coarse breath sounds bilaterally, decreased at bases, no wheezing, adequate air entry Cardiac:? S1-S2 normal, regular rate and rhythm Abdomen:? Soft, nontender, obese, hypoactive bowel sounds, left lower quadrant drain in place with purulent drainage Extremities:? Trace edema, palpable pedal pulse Neuro:? Patient remains intubated and sedated, does not open her eyes or follow simple commands. On 02/02 post code she did follow simple commands Skin:? No skin lesions noted Psych:? Unable to assess at this time Objective Data Vital Signs Vital Signs: Vital Signs - 24 hr 02/04/25 08:45 02/04/25 08:54 02/04/25 09:13 Temperature Pulse Rate 53 L 59 L 63 Respiratory Rate 18 18 Blood Pressure 127/61 Pulse Oximetry Oxygen Delivery Fraction of Inspired Oxygen 02/04/25 09:15 02/04/25 09:15 02/04/25 09:27 Temperature Pulse Rate 63 55 L 62 Respiratory Rate Blood Pressure 84/43 L 81/42 L Pulse Oximetry 98 Oxygen Delivery Mechanical Ventilation Fraction of Inspired Oxygen 40 02/04/25 09:43 02/04/25 10:00 02/04/25 10:00 Temperature 96.9 F L Pulse Rate 49 L 53 L 53 L Respiratory Rate 18 Blood Pressure 136/60 122/55 L Pulse Oximetry 97 Oxygen Delivery Fraction of Inspired Oxygen 02/04/25 10:00 02/04/25 10:00 02/04/25 10:00 Temperature Pulse Rate 53 L 53 L 53 L Respiratory Rate 18 18 Blood Pressure 122/55 L Pulse Oximetry Oxygen Delivery Fraction of Inspired Oxygen 02/04/25 12:00 02/04/25 12:00 02/04/25 12:00 Temperature Pulse Rate 56 L 56 L 56 L Respiratory Rate 18 18 Blood Pressure 118/55 L Pulse Oximetry Oxygen Delivery Fraction of Inspired Oxygen 02/04/25 12:00 02/04/25 12:00 02/04/25 12:00 Temperature 96.9 F L Pulse Rate 56 L Respiratory Rate 18 Blood Pressure 118/55 L Pulse Oximetry 99 99 Oxygen Delivery Mechanical Ventilation Fraction of Inspired Oxygen 40 40 02/04/25 12:00 02/04/25 12:14 02/04/25 13:14 Temperature Pulse Rate 57 L 53 L 57 L Respiratory Rate Blood Pressure 129/63 Pulse Oximetry 99 Oxygen Delivery Mechanical Ventilation Fraction of Inspired Oxygen 40 02/04/25 13:30 02/04/25 14:00 02/04/25 14:00 Temperature 97.3 F L Pulse Rate 63 55 L 55 L Respiratory Rate 18 Blood Pressure 81/45 L 138/64 Pulse Oximetry 99 Oxygen Delivery Fraction of Inspired Oxygen 02/04/25 14:00 02/04/25 14:00 02/04/25 14:00 Temperature Pulse Rate 55 L 55 L 55 L Respiratory Rate 18 18 Blood Pressure 138/64 Pulse Oximetry Oxygen Delivery Fraction of Inspired Oxygen 02/04/25 14:12 02/04/25 14:14 02/04/25 14:18 Temperature Pulse Rate 62 59 L 58 L Respiratory Rate 21 H 18 Blood Pressure Pulse Oximetry 99 Oxygen Delivery Mechanical Ventilation Fraction of Inspired Oxygen 40 02/04/25 16:00 02/04/25 16:00 02/04/25 16:00 Temperature 98.0 F Pulse Rate 64 Respiratory Rate 18 Blood Pressure 109/70 Pulse Oximetry 99 99 Oxygen Delivery Mechanical Ventilation Fraction of Inspired Oxygen 40 40 02/04/25 16:00 02/04/25 16:00 02/04/25 16:00 Temperature Pulse Rate 63 64 64 Respiratory Rate 18 18 Blood Pressure Pulse Oximetry Oxygen Delivery Fraction of Inspired Oxygen 02/04/25 16:00 02/04/25 17:21 02/04/25 18:00 Temperature 98.8 F Pulse Rate 64 62 67 Respiratory Rate 18 Blood Pressure 109/70 115/54 L Pulse Oximetry 99 98 Oxygen Delivery Mechanical Ventilation Fraction of Inspired Oxygen 40 02/04/25 18:00 02/04/25 18:00 02/04/25 18:00 Temperature Pulse Rate 67 67 67 Respiratory Rate 18 18 Blood Pressure Pulse Oximetry Oxygen Delivery Fraction of Inspired Oxygen 02/04/25 18:00 02/04/25 19:50 02/04/25 19:52 Temperature Pulse Rate 67 58 L 58 L Respiratory Rate 18 Blood Pressure 115/54 L Pulse Oximetry 98 Oxygen Delivery Mechanical Ventilation Fraction of Inspired Oxygen 40 02/04/25 19:53 02/04/25 20:00 02/04/25 20:00 Temperature 98.7 F 98.7 F Pulse Rate 57 L 63 Respiratory Rate 24 H 18 Blood Pressure 93/49 L 91/48 L Pulse Oximetry 100 98 Oxygen Delivery Fraction of Inspired Oxygen 40 02/04/25 20:00 02/04/25 20:00 02/04/25 20:00 Temperature Pulse Rate 59 L 59 L 59 L Respiratory Rate 18 18 Blood Pressure 115/55 L Pulse Oximetry Oxygen Delivery Fraction of Inspired Oxygen 02/04/25 20:05 02/04/25 22:00 02/04/25 22:00 Temperature 98.3 F Pulse Rate 61 87 88 Respiratory Rate 24 H Blood Pressure 111/60 Pulse Oximetry 99 98 Oxygen Delivery Mechanical Ventilation Fraction of Inspired Oxygen 40 02/04/25 22:00 02/04/25 22:00 02/04/25 23:00 Temperature Pulse Rate 62 62 62 Respiratory Rate 18 18 Blood Pressure 126/59 L Pulse Oximetry Oxygen Delivery Fraction of Inspired Oxygen 02/04/25 23:06 02/04/25 23:06 02/04/25 23:08 Temperature Pulse Rate 93 93 93 Respiratory Rate 18 18 18 Blood Pressure Pulse Oximetry Oxygen Delivery Fraction of Inspired Oxygen 02/04/25 23:31 02/04/25 23:32 02/04/25 23:40 Temperature Pulse Rate 87 96 89 Respiratory Rate 18 Blood Pressure Pulse Oximetry 98 98 Oxygen Delivery Mechanical Ventilation Mechanical Ventilation Fraction of Inspired Oxygen 40 40 02/05/25 00:00 02/05/25 00:00 02/05/25 00:00 Temperature 98.3 F Pulse Rate 84 89 Respiratory Rate 24 H Blood Pressure 92/53 L 89/52 L Pulse Oximetry 98 Oxygen Delivery Fraction of Inspired Oxygen 40 02/05/25 00:00 02/05/25 00:00 02/05/25 02:00 Temperature 98 F Pulse Rate 89 89 79 Respiratory Rate 18 18 24 H Blood Pressure 115/64 Pulse Oximetry 98 Oxygen Delivery Fraction of Inspired Oxygen 02/05/25 02:00 02/05/25 02:00 02/05/25 02:00 Temperature Pulse Rate 94 84 84 Respiratory Rate 18 18 Blood Pressure Pulse Oximetry Oxygen Delivery Fraction of Inspired Oxygen 02/05/25 02:00 02/05/25 02:08 02/05/25 02:08 Temperature Pulse Rate 83 87 97 Respiratory Rate 18 Blood Pressure 119/65 Pulse Oximetry 91 Oxygen Delivery Mechanical Ventilation Fraction of Inspired Oxygen 40 02/05/25 02:20 02/05/25 04:00 02/05/25 04:00 Temperature 98.1 F Pulse Rate 94 94 94 Respiratory Rate 18 24 H 18 Blood Pressure 97/55 L Pulse Oximetry 98 97 Oxygen Delivery Mechanical Ventilation Fraction of Inspired Oxygen 30 02/05/25 04:00 02/05/25 04:00 02/05/25 04:00 Temperature Pulse Rate 88 89 Respiratory Rate Blood Pressure 96/55 L Pulse Oximetry Oxygen Delivery Fraction of Inspired Oxygen 30 02/05/25 04:00 02/05/25 04:00 02/05/25 04:46 Temperature Pulse Rate 89 89 105 H Respiratory Rate 18 18 Blood Pressure Pulse Oximetry 98 Oxygen Delivery Mechanical Ventilation Fraction of Inspired Oxygen 30 02/05/25 06:00 02/05/25 06:00 02/05/25 06:00 Temperature 97.7 F Pulse Rate 101 H 83 88 Respiratory Rate 26 H Blood Pressure 92/53 L 100/54 L Pulse Oximetry 98 Oxygen Delivery Fraction of Inspired Oxygen 02/05/25 08:00 02/05/25 08:14 02/05/25 08:17 Temperature 97.7 F Pulse Rate 71 92 96 Respiratory Rate 17 Blood Pressure 101/89 Pulse Oximetry 97 98 Oxygen Delivery Mechanical Ventilation Fraction of Inspired Oxygen 30 Intake/Output Intake/Output: Intake & Output 02/02/25 02/03/25 02/04/25 02/05/25 23:59 23:59 23:59 23:59 Intake Total 2129.4 3748.8 2745.7 912.7 Output Total 735 1180 1555 75 Balance 1394.4 2568.8 1190.7 837.7 Meds/Results Medications: Active Medications Generic Name Dose Route Start Last Admin Trade Name Freq PRN Reason Stop Dose Admin Acetaminophen 650 mg 01/25/25 20:51 02/01/25 19:04 Acetaminophen 325 Mg Tablet PO 650 mg Q4H PRN Administration Headache Dextrose 12.5 gm 01/25/25 20:46 01/26/25 11:40 Dextrose 50% 25 Gm/50 Ml Syringe IV PUSH 12.5 gm PRN PRN Administration Hypoglycemia Protocol Fentanyl Citrate 25 mcg 01/25/25 20:51 02/02/25 01:12 Fentanyl Citrate Inj (*Crx) 100 Mcg/2 Ml Vial IV PUSH 25 mcg Q4H PRN Administration Pain Rated 6 or Greater Glucagon 1 mg 01/25/25 20:46 Glucagon For Inj 1 Mg Vial IM PRN PRN Hypoglycemia Protocol Glucose 15 gm 01/25/25 20:46 Glucose Oral Gel 15 Gm Of Glucse In 37.5 Gm Tube PO PRN PRN Hypoglycemia Protocol Hydrocortisone Sodium Succinate 100 mg 02/02/25 14:20 02/05/25 06:13 Hydrocortisone Sodium Succinate 100 Mg/2 Ml Vial IV PUSH 100 mg Q8HR KANDIS Administration Dextrose 1,000 mls @ 100 mls/hr 01/25/25 20:46 Dextrose 5% 1,000 Ml IVPB PRN PRN Hypoglycemia Protocol Meropenem 1 gm in 100 mls @ 200 mls/hr 01/29/25 13:00 02/05/25 06:14 IVPB 200 mls/hr Q8HR KANDIS Administration Doxycycline Hyclate 100 mg in 100 mls @ 100 mls/hr 02/02/25 11:00 02/04/25 22:25 Vibramycin 100 Mg/Ns 100 Ml IVPB 02/06/25 21:59 Infused Q12HR KANDIS Infusion Fentanyl Citrate 2,500 mcg in 250 mls @ 5 mls/hr 02/02/25 12:55 02/05/25 04:00 Fentanyl 2,500 Mcg/Ns 250 Ml IV CONT 50 mcg/hr .Q50H KANDIS 5 mls/hr Titration Protocol 50 MCG/HR Midazolam HCl 100 mg in 100 mls @ 1 mls/hr 02/02/25 12:55 02/05/25 04:00 Versed 100 Mg/Ns 100 Ml IV CONT 1 mg/hr .Q72H KANDIS 1 mls/hr Titration Protocol 1 MG/HR Norepinephrine Bitartrate 8 mg in 250 mls @ 1.875 mls/hr 02/02/25 14:10 02/05/25 06:15 Levophed 8 Mg/D5w 250 Ml IV CONT Not Given .Q24H KANDIS Protocol 1 MCG/MIN Metronidazole 500 mg in 100 mls @ 100 mls/hr 02/04/25 12:00 02/05/25 05:30 Flagyl 500 Mg/Iso Soln 100 Ml IVPB 100 mls/hr Q6HR KANDIS Administration Sodium Chloride 250 mls @ 30 mls/hr 02/05/25 07:23 Normal Saline Iv IV CONT 02/05/25 15:42 .Q8H20M STA Insulin Aspart 4 - 8 units 02/02/25 18:00 02/05/25 06:13 Insulin Aspart (*Bkc) 100 Units/Ml SUB-Q 4 units Q6H KANDIS Administration Protocol Insulin Glargine 10 units 01/29/25 21:00 02/01/25 21:11 Insulin Glargine (*Bkc) 100 Units/Ml SUB-Q 10 units HS KANDIS Administration Insulin Glargine 10 units 02/05/25 09:00 Insulin Glargine (*Bkc) 100 Units/Ml SUB-Q DAILY KANDIS Ipratropium [place] 0.5 mg 02/02/25 14:20 02/05/25 08:12 Ipratropium Br 0.02% Inh Soln 0.5 Mg/2.5 Ml Vial INHALATION 0.5 mg Q6HRT KANDIS Administration Lactobacillus Acidophilus 1 pkt 02/03/25 09:00 02/04/25 21:27 Acidophilus Packet 1 Pkt Packet PO 1 pkt QID KANDIS Administration Levalbuterol HCl 0.63 mg 02/02/25 14:20 02/05/25 08:12 Levalbuterol Neb 1.25 Mg/3 Ml INHALATION 0.63 mg Q6HRT KANDIS Administration Midazolam HCl 2 mg 02/02/25 12:51 02/02/25 12:43 Midazolam Hcl (*Crx) 2 Mg/2 Ml Vial IV PUSH 2 mg PRN PRN Administration Sedation Multi-Ingred Cream/Lotion/Oil/Oint 1 applic 02/02/25 21:00 02/04/25 21:28 Mineral Oil/White Petrolatum Ointment EACH EYE 1 applic Q12HR KANDIS Administration Ondansetron HCl 4 mg 01/25/25 20:51 01/31/25 21:23 Ondansetron Inj 4 Mg/2 Ml Vial IV PUSH 4 mg Q6H PRN Administration Nausea And Vomiting Pantoprazole Sodium 40 mg 02/04/25 21:00 02/04/25 21:28 Pantoprazole Sodium Iv 40 Mg Vial IV PUSH 40 mg Q12HR KANDIS Administration Perflutren Lipid Microsphere 0 ml 02/04/25 07:37 Perflutren Lipid Microspheres 1.5 Ml Vial Diluted To 10 Ml Total Volume IV PUSH 02/07/25 07:37 ONCE PRN adequate visualization Protocol Sodium Chloride 10 ml 02/02/25 14:00 02/05/25 06:14 Central Line Flush IV PUSH 10 ml Q8HR KANDIS Administration Sodium Chloride 20 ml 02/02/25 13:47 02/03/25 21:40 Central Line Flush IV PUSH 20 ml PRN PRN Administration after blood draws Radiology Results: ITS Impressions Pelvis CT 01/26/25 14:17 IMPRESSION: 1. No significant change in a bilobed gas and fluid containing abscess in the deep pelvis. Patient canceled the planned percutaneous abscess drainage catheter placement due to discomfort despite attempts at repositioning. Abdomen/Pelvis CT 01/29/25 09:28 Impression: Stable large bilobed multilocular abscess in the pelvis extensively involving the distal sigmoid colon and rectum. Stable wall thickening of the distal sigmoid colon and rectum. Small right pleural effusion with right basilar atelectatic change. Cholelithiasis. Nephrolithiasis bilaterally, as detailed above. Catheter Placement CT 02/02/25 16:48 IMPRESSION: 1. Technically successful CT-guided drainage catheter placement with likely translocation and overwhelming sepsis following initial aspiration with subsequent cardiac and respiratory arrest. 2. 12-14 mL fluid was sent for aerobic and anaerobic cultures. Please see separate CODE BLUE flow sheet for additional details of the CODE BLUE portion of the case. Chest X-Ray 02/05/25 06:23 Impression: Probable mild bibasilar pulmonary edema/atelectasis with minimal right pleural effusion. Support tubes, as above. Labs Labs: Laboratory Results - last 24 hr 02/03/25 02/04/25 02/04/25 08:09 08:54 12:13 WBC RBC Hgb Hct MCV MCH MCHC RDW Plt Count MPV Immature Gran % (Auto) Neut % (Auto) Lymph % (Auto) [place] % (Auto) Eos % (Auto) Baso % (Auto) Lymph # (Auto) [place] # (Auto) Eos # (Auto) Baso # (Auto) Abs Immat Gran (auto) Absolute Neuts (auto) Absolute Nucleated RBC Band Neutrophils % Nucleated RBC % Platelet Estimate Hypochromasia Anisocytosis Microcytosis Schistocytes Puncture Site ABG pH ABG pCO2 ABG pO2 ABG PO2/FiO2 Ratio ABG HCO3 ABG O2 Saturation ABG O2 Content ABG Base Excess A-a Gradient Oxyhemoglobin Carboxyhemoglobin Methemoglobin Reduced Hemoglobin Total Hemoglobin O2 Delivery Device O2 Liters/Min Minute Volume Vent Rate Vent Mode FiO2 Tidal Volume PEEP Peak Inspir Pressure Pressure Support Sodium Potassium Chloride Carbon Dioxide Anion Gap BUN Creatinine Estim Creat Clear Calc Estimated GFR Glucose POC Capillary Glucose 194 H Lactic Acid Calcium Phosphorus Magnesium Total Bilirubin AST ALT Alkaline Phosphatase Total Protein Albumin Vancomycin Trough 18.8 Blood Type O Positive Antibody Screen Negative Crossmatch See Detail 02/04/25 02/04/25 02/05/25 17:21 23:50 04:20 WBC 36.9 H RBC 2.82 L Hgb 7.0 L Hct 22.4 L MCV 79.4 L MCH 24.8 L MCHC 31.3 L RDW 17.3 H Plt Count 170 MPV 10.5 H Immature Gran % (Auto) 3.9 H Neut % (Auto) 93.3 H Lymph % (Auto) 1.3 L [place] % (Auto) 1.2 L Eos % (Auto) 0.0 Baso % (Auto) 0.3 Lymph # (Auto) 0.47 L [place] # (Auto) 0.4 Eos # (Auto) 0.0 Baso # (Auto) 0.1 Abs Immat Gran (auto) 1.43 H Absolute Neuts (auto) 34.5 H Absolute Nucleated RBC 0.020 H Band Neutrophils % 0 Nucleated RBC % 0.1 Platelet Estimate Adequate Hypochromasia 1+ Anisocytosis 1+ Microcytosis 1+ Schistocytes None seen Puncture Site Artline ABG pH 7.525 H* ABG pCO2 34.0 L ABG pO2 87.8 ABG PO2/FiO2 Ratio 2.93 ABG HCO3 27.5 H ABG O2 Saturation 97.5 ABG O2 Content 10.3 L ABG Base Excess 4.4 A-a Gradient 86.2 Oxyhemoglobin 95.7 Carboxyhemoglobin 1.0 Methemoglobin 0.3 Reduced Hemoglobin 3.0 Total Hemoglobin 7.5 L* O2 Delivery Device Ventilator O2 Liters/Min Not Reportable Minute Volume Not Reportable Vent Rate 18 Vent Mode Cmv FiO2 30 Tidal Volume 420 PEEP 8 Peak Inspir Pressure Not Reportable Pressure Support Not Reportable Sodium 139 Potassium 3.7 Chloride 103 Carbon Dioxide 31 H Anion Gap 5 BUN 38 H D Creatinine 1.15 H Estim Creat Clear Calc 45 Estimated GFR 46 L Glucose 240 H POC Capillary Glucose 219 H 226 H Lactic Acid 1.4 Calcium 7.8 L Phosphorus 3.4 Magnesium 2.3 Total Bilirubin 0.8 AST 20 ALT 16 Alkaline Phosphatase 111 Total Protein 6.0 L Albumin 2.4 L Vancomycin Trough Blood Type Antibody Screen Crossmatch Quality VTE Prophylaxis VTE prophylaxis: pharmacologic ordered
[2025-02-05] MEDS: ACIDOPHILUS PACKET 1 PKT PACKET PO ×4 (08:45→21:05)
[2025-02-05] MEDS: DOXYCYCLINE 100 MG/NS 100 ML 100 MG/100 ML BAG IVPB ×2 (08:45→21:05)
[2025-02-05] MEDS: PANTOPRAZOLE SODIUM IV 40 MG VIAL IV PUSH ×2 (08:45→21:05)
[2025-02-05] MEDS: MINERAL OIL/WHITE PETROLATUM OINTMENT 1 APPLIC EACH EYE ×2 (08:45→21:05)
[2025-02-05] MEDS: INSULIN GLARGINE (*BKC) 100 UNITS/ML 10 UNITS SUB-Q (08:59)
--- NOTE | 2025-02-05 09:03 | P.CONGI_ITS ---
Assessment and Plan Assessment and plan (1) Colitis: Code(s): K52.9 - Noninfective gastroenteritis and colitis, unspecified Status: Acute (2) Diarrhea: Qualifiers: Diarrhea type: presumed infectious Qualified Code(s): R19.7 - Diarrhea, unspecified Code(s): R19.7 - Diarrhea, unspecified Status: Inactive (3) Sepsis: Qualifiers: Sepsis acute organ dysfunction status: without acute organ dysfunction Sepsis type: sepsis due to unspecified organism Qualified Code(s): A41.9 - Sepsis, unspecified organism Code(s): A41.9 - Sepsis, unspecified organism Status: Acute (4) Heme positive stool: Code(s): R19.5 - Other fecal abnormalities Status: Acute (5) Intra-abdominal abscess: Code(s): K65.1 - Peritoneal abscess Status: Acute (6) Anemia: Qualifiers: Anemia type: other cause Other causes of anemia: chronic disease, other Qualified Code(s): D63.8 - Anemia in other chronic diseases classified elsewhere Code(s): D64.9 - Anemia, unspecified Status: Acute (7) Cardiac arrest: Code(s): I46.9 - Cardiac arrest, cause unspecified Status: Acute (8) Acute respiratory failure: Qualifiers: Respiratory failure complication: hypoxia Qualified Code(s): J96.01 - Acute respiratory failure with hypoxia Code(s): J96.00 - Acute respiratory failure, unspecified whether with hypoxia or hypercapnia Status: Acute (9) Leukocytosis: Qualifiers: Leukocytosis type: unspecified Qualified Code(s): D72.829 - Elevated white blood cell count, unspecified Code(s): D72.829 - Elevated white blood cell count, unspecified Status: Acute (10) Gallstones: Code(s): K80.20 - Calculus of gallbladder without cholecystitis without obstruction Status: Acute Plan 1. Colitis/diarrhea/intra abdominal abscess /leukocytosis/sepsis/heme positive stool: Endoscopy history unknown. The CT on 01/25/2025 showed circumferential wall thickening of the distal sigmoid colon / proximal rectum. There was 2 adjacent bilobed abscesses abutting/adjacent to the distal sigmoid colon / rectum contained bowel perforation not completely excluded. Surgery is on patient's case. Patient had IR percutaneous drain placed 02/02/2025. Previous attempt to place a drain on 01/26/2025 was unsuccessful as the patient coded during the procedure. blood cultures growing E coli and clostridium ramosum an abscess fluid culture growing E coli and bacteroides fragilis. Labs 02/03/2025 showed WBCs at 70 trending down today showing 37. She is on meropenem, Flagyl and Vibramycin. Patient is having large volume diarrhea which had been occurring prior to admission and has continued during admission. she has had 3- C diff since admission most recent performed 02/03/2025. She was noted to have heme-positive stools on February 05. She currently has a fecal management system in place draining liquid brown / green stools. Per patient's nurse she has had no signs of active GI bleeding since arriving to the ICU. DDX: Acute infectious/ inflammatory cause versus ischemic colitis versus IBD versus other etiology * Patient will need a colonoscopy at some point once stable inpatient versus outpatient will depend on clinical presentation * continue antibiotics management per primary care team and surgery * unclear if heme-positive stools are secondary to irritation from fecal management system versus known colitis versus other GI source * Monitor closely for signs of GI bleeding 2. Chronic anemia: Anemia first noted in September 2024. At her lowest point during admission patient was shown to have a hemoglobin of 6.3 on February 03. labs today show HGB 7. Patient is currently receiving a unit of blood. No signs of active GI bleeding at this time. * Primary care team to continue monitoring H&H and transfused as needed to keep HGB > 7 * Will hold off on endoscopic evaluation to rule out GI source of blood loss once patient is more stable 3. Cardiac arrest/acute respiratory failure: Patient had a cardiac arrest during attempted percutaneous drain placement on 01/26. Patient then went into acute respiratory failure and is still on a ventilator. ABG showed pH 7.525 and pCO2 34.0. * Primary care team to continue treatment and monitoring 4. Gallstones: Recent imaging showed gallstones and gallbladder sludge. No signs of ductal dilation. No lipase or LFT elevation. * Asymptomatic, will monitor outpatient unless there is a change in clinical presentation Thank you very much for allowing me to share in the care of this patient. This report may have been done utilizing a voice recognition system. Attempts have been made to correct errors. However, there may be uncorrected grammatical, spelling, and recognition errors present. GI Consult Note Consult date/time: 02/05/25 09:03 Reason for consult: Anemia, septic shock and GI bleed HPI: Bharti Neal is a 74 year old female with a past medical history of diabetes and hypertension but otherwise unremarkable medical surgical history. She presented to the emergency room 01/25/2025 with complaints of abdominal pain and diarrhea. GI has been consulted for anemia, septic shock and GI bleed. Patient has had a prolonged and complex hospital admission with colitis and intra-abdominal abscess in during her 1st attempt at in our IR placed percutaneous drain the patient coded on 01/26/2025. Following her code blue she had acute respiratory failure and has been intubated since that time. She is unable to provide any subjective information due to intubation and sedation. Most information was obtained by her RN. Her RN states that the patient has been having a large amount of diarrhea prior to and during her hospitalization and has a fecal management system in place that is draining around stool. There has been no signs of active GI bleeding to include coffee-ground emesis, hematemesis, hematochezia or melena. patient with abnormal ABGs and difficulty stabilizing blood pressure yesterday BP was 81/42. Patient is no longer on vasopressin but is on Levophed. ENDOSCOPY HISTORY: Previous endoscopy history unknown LABS AND STOOL STUDIES: Labs 02/05/2025: WBCs 37, HGB 7, HCT 22, MCV 79, platelets 170, INR 1.5 Sodium 139, potassium 3.7, BUN 38, creatinine 1.15, GFR 46 Lactic acid 1.4, calcium 7.8, phosphorus 3.4, magnesium 2.3 Total bilirubin 0.8, AST 20, ALT 16, alkaline phosphatase 111, albumin 2.4 B12 and folate pending C diff was negative on January 25, and Labs 02/02/2025: Total iron 22, TIBC 198, iron saturation 11, ferritin 69.70 Labs 02/03/2025: WBC 70, HGB 6.5, HCT 20.7, MCV 78, platelets 270 Sodium 138, potassium 3.6, BUN 21, creatinine 1.27, GFR 41 IMAGING: Chest Xray 02/05/2025: Impression: Endotracheal tube, NG tube, and right-sided annular place. Minimal right pleural effusion present with probable mild bibasilar pulmonary edema/atelectasis. Cardiomediastinal silhouette is stable. Bones and soft tissues are unremarkable. Probable mild bibasilar pulmonary edema/atelectasis with minimal right pleural effusion. Support tubes, as above. CT catheter placement 02/02/2025: IMPRESSION: 1. Technically successful CT-guided drainage catheter placement with likely translocation and overwhelming sepsis following initial aspiration with subsequent cardiac and respiratory arrest. 2. 12-14 mL fluid was sent for aerobic and anaerobic cultures. Abdominal Xray 02/02/2025: FINDINGS/impression: Nasogastric tube with the tip in the body of the stomach. The sidehole is near to the gastroesophageal junction. Slight advancement of the tube is advised. CT abd/pelvis w/contrast 01/29/2025: Impression: Stable large bilobed multilocular abscess in the pelvis extensively involving the distal sigmoid colon and rectum. Stable wall thickening of the distal sigmoid colon and rectum. Small right pleural effusion with right basilar atelectatic change. Cholelithiasis. Nephrolithiasis bilaterally, as detailed above. CT abd/pelvis w/contrast 01/25/2025: Impression: Circumferential wall thickening of the distal sigmoid colon/proximal rectum. Correlate for infectious/inflammatory colitis versus possibility of underlying neoplasm. 2 adjacent versus bilobed abscesses abutting/adjacent to the distal sigmoid colon/rectum, as detailed above. Contained bowel perforation not completely excluded, though no distant free air evident. Cholelithiasis and gallbladder sludge. Staghorn right renal calculus, as above. No hydronephrosis. 4.3 cm right adrenal myelolipoma. Review of Systems 2 Review of Systems: ROS unobtainable: Yes unobtainable due to medical condition and unobtainable due to mental status [facility] Past Medical History Medical History Diabetes 1.5, managed as type 2 Hypertension Surgical History Surgical History No history of previous surgery Family History Family History Mother Heart attack Diabetes mellitus Type II DM Father , heart attack Heart attack Heart disease Sibling , gynecological cancer (lining of uterus per patient) No problems noted. Social History Social History Smoking status: Never smoker Second hand tobacco smoke exposure: No Alcohol intake: never Alcohol use details: occasional, [id number] Substance use: never Substance use type: does not use Do You Feel Safe in your Home?: Yes Lack of Transportation: No Lack of Food: Never True Current Housing: I Have Housing Concerned About Future Housing: No Difficulty Paying Gas/Electric Bills: No Difficulty Paying for Meds: No Currently Unemployed: No Education: Bachelor's Degree Difficulty w/ Childcare or Family Care: No Spiritual care concerns: No Meds Home Medications and Allergies Home Medications ?Medication ?Instructions ?Recorded ?Confirmed ?Type triamterene 37.5 1 cap PO DAILY 09/22/19 01/25/25 History mg-hydrochlorothiazide 25 mg capsule verapamil 240 mg tablet,extended 240 mg PO BID 09/22/19 01/25/25 History release lancets 30 gauge (BD Microtainer #200 ea 11/04/24 01/25/25 Rx Lancet) blood sugar diagnostic (Blood #100 ea 11/23/24 01/25/25 Rx Glucose Test strips) blood-glucose meter #1 ea 11/23/24 01/25/25 Rx pioglitazone 45 mg tablet See Rx Instructions .Route 11/24/24 01/25/25 Rx .COMPLEX #90 tabs glimepiride 4 mg tablet 4 mg PO BID #180 tabs 12/17/24 01/25/25 Rx metoprolol succinate 50 mg 50 mg PO DAILY #180 tabs 12/17/24 01/25/25 Rx tablet,extended release 24 hr Allergies Allergy/AdvReac Type Severity Reaction Status Date / Time ciprofloxacin (From Cipro) Allergy Rash Verified 01/25/25 10:42 codeine Allergy Rash Verified 01/25/25 10:42 ibuprofen (From Advil) AdvReac Other Verified 01/25/25 10:42 naproxen (From Aleve) AdvReac Other Verified 01/25/25 10:42 Vital Signs Vital Signs - 24 hr 02/04/25 09:13 02/04/25 09:15 02/04/25 09:15 Temperature Pulse Rate 63 63 55 L Respiratory Rate 18 Blood Pressure 84/43 L Pulse Oximetry 98 Oxygen Delivery Mechanical Ventilation Fraction of Inspired Oxygen 40 02/04/25 09:27 02/04/25 09:43 02/04/25 10:00 Temperature 96.9 F L Pulse Rate 62 49 L 53 L Respiratory Rate 18 Blood Pressure 81/42 L 136/60 122/55 L Pulse Oximetry 97 Oxygen Delivery Fraction of Inspired Oxygen 02/04/25 10:00 02/04/25 10:00 02/04/25 10:00 Temperature Pulse Rate 53 L 53 L 53 L Respiratory Rate 18 18 Blood Pressure Pulse Oximetry Oxygen Delivery Fraction of Inspired Oxygen 02/04/25 10:00 02/04/25 12:00 02/04/25 12:00 Temperature Pulse Rate 53 L 56 L 56 L Respiratory Rate 18 18 Blood Pressure 122/55 L Pulse Oximetry Oxygen Delivery Fraction of Inspired Oxygen 02/04/25 12:00 02/04/25 12:00 02/04/25 12:00 Temperature 96.9 F L Pulse Rate 56 L 56 L Respiratory Rate 18 Blood Pressure 118/55 L 118/55 L Pulse Oximetry 99 Oxygen Delivery Fraction of Inspired Oxygen 40 02/04/25 12:00 02/04/25 12:00 02/04/25 12:14 Temperature Pulse Rate 57 L 53 L Respiratory Rate Blood Pressure Pulse Oximetry 99 99 Oxygen Delivery Mechanical Ventilation Mechanical Ventilation Fraction of Inspired Oxygen 40 40 02/04/25 13:14 02/04/25 13:30 02/04/25 14:00 Temperature 97.3 F L Pulse Rate 57 L 63 55 L Respiratory Rate 18 Blood Pressure 129/63 81/45 L 138/64 Pulse Oximetry 99 Oxygen Delivery Fraction of Inspired Oxygen 02/04/25 14:00 02/04/25 14:00 02/04/25 14:00 Temperature Pulse Rate 55 L 55 L 55 L Respiratory Rate 18 18 Blood Pressure Pulse Oximetry Oxygen Delivery Fraction of Inspired Oxygen 02/04/25 14:00 02/04/25 14:12 02/04/25 14:14 Temperature Pulse Rate 55 L 62 59 L Respiratory Rate 21 H Blood Pressure 138/64 Pulse Oximetry 99 Oxygen Delivery Mechanical Ventilation Fraction of Inspired Oxygen 40 02/04/25 14:18 02/04/25 16:00 02/04/25 16:00 Temperature 98.0 F Pulse Rate 58 L 64 Respiratory Rate 18 18 Blood Pressure 109/70 Pulse Oximetry 99 99 Oxygen Delivery Mechanical Ventilation Fraction of Inspired Oxygen 40 02/04/25 16:00 02/04/25 16:00 02/04/25 16:00 Temperature Pulse Rate 63 64 Respiratory Rate 18 Blood Pressure Pulse Oximetry Oxygen Delivery Fraction of Inspired Oxygen 40 02/04/25 16:00 02/04/25 16:00 02/04/25 17:21 Temperature Pulse Rate 64 64 62 Respiratory Rate 18 Blood Pressure 109/70 Pulse Oximetry 99 Oxygen Delivery Mechanical Ventilation Fraction of Inspired Oxygen 40 02/04/25 18:00 02/04/25 18:00 02/04/25 18:00 Temperature 98.8 F Pulse Rate 67 67 67 Respiratory Rate 18 18 Blood Pressure 115/54 L Pulse Oximetry 98 Oxygen Delivery Fraction of Inspired Oxygen 02/04/25 18:00 02/04/25 18:00 02/04/25 19:50 Temperature Pulse Rate 67 67 58 L Respiratory Rate 18 18 Blood Pressure 115/54 L Pulse Oximetry 98 Oxygen Delivery Mechanical Ventilation Fraction of Inspired Oxygen 40 02/04/25 19:52 02/04/25 19:53 02/04/25 20:00 Temperature 98.7 F Pulse Rate 58 L 57 L Respiratory Rate 24 H Blood Pressure 93/49 L Pulse Oximetry 100 Oxygen Delivery Fraction of Inspired Oxygen 40 02/04/25 20:00 02/04/25 20:00 02/04/25 20:00 Temperature 98.7 F Pulse Rate 63 59 L 59 L Respiratory Rate 18 18 Blood Pressure 91/48 L 115/55 L Pulse Oximetry 98 Oxygen Delivery Fraction of Inspired Oxygen 02/04/25 20:00 02/04/25 20:05 02/04/25 22:00 Temperature 98.3 F Pulse Rate 59 L 61 87 Respiratory Rate 18 24 H Blood Pressure 111/60 Pulse Oximetry 99 98 Oxygen Delivery Mechanical Ventilation Fraction of Inspired Oxygen 40 02/04/25 22:00 02/04/25 22:00 02/04/25 22:00 Temperature Pulse Rate 88 62 62 Respiratory Rate 18 Blood Pressure 126/59 L Pulse Oximetry Oxygen Delivery Fraction of Inspired Oxygen 02/04/25 23:00 02/04/25 23:06 02/04/25 23:06 Temperature Pulse Rate 62 93 93 Respiratory Rate 18 18 18 Blood Pressure Pulse Oximetry Oxygen Delivery Fraction of Inspired Oxygen 02/04/25 23:08 02/04/25 23:31 02/04/25 23:32 Temperature Pulse Rate 93 87 96 Respiratory Rate 18 18 Blood Pressure Pulse Oximetry 98 98 Oxygen Delivery Mechanical Ventilation Mechanical Ventilation Fraction of Inspired Oxygen 40 40 02/04/25 23:40 02/05/25 00:00 02/05/25 00:00 Temperature 98.3 F Pulse Rate 89 84 Respiratory Rate 24 H Blood Pressure 92/53 L Pulse Oximetry 98 Oxygen Delivery Fraction of Inspired Oxygen 40 02/05/25 00:00 02/05/25 00:00 02/05/25 00:00 Temperature Pulse Rate 89 89 89 Respiratory Rate 18 18 Blood Pressure 89/52 L Pulse Oximetry Oxygen Delivery Fraction of Inspired Oxygen 02/05/25 02:00 02/05/25 02:00 02/05/25 02:00 Temperature 98 F Pulse Rate 79 94 84 Respiratory Rate 24 H 18 Blood Pressure 115/64 Pulse Oximetry 98 Oxygen Delivery Fraction of Inspired Oxygen 02/05/25 02:00 02/05/25 02:00 02/05/25 02:08 Temperature Pulse Rate 84 83 87 Respiratory Rate 18 18 Blood Pressure 119/65 Pulse Oximetry Oxygen Delivery Fraction of Inspired Oxygen 02/05/25 02:08 02/05/25 02:20 02/05/25 04:00 Temperature 98.1 F Pulse Rate 97 94 94 Respiratory Rate 18 24 H Blood Pressure 97/55 L Pulse Oximetry 91 98 Oxygen Delivery Mechanical Ventilation Fraction of Inspired Oxygen 40 02/05/25 04:00 02/05/25 04:00 02/05/25 04:00 Temperature Pulse Rate 94 88 Respiratory Rate 18 Blood Pressure Pulse Oximetry 97 Oxygen Delivery Mechanical Ventilation Fraction of Inspired Oxygen 30 30 02/05/25 04:00 02/05/25 04:00 02/05/25 04:00 Temperature Pulse Rate 89 89 89 Respiratory Rate 18 18 Blood Pressure 96/55 L Pulse Oximetry Oxygen Delivery Fraction of Inspired Oxygen 02/05/25 04:46 02/05/25 06:00 02/05/25 06:00 Temperature 97.7 F Pulse Rate 105 H 101 H 83 Respiratory Rate 26 H Blood Pressure 92/53 L 100/54 L Pulse Oximetry 98 98 Oxygen Delivery Mechanical Ventilation Fraction of Inspired Oxygen 30 02/05/25 06:00 02/05/25 08:00 02/05/25 08:14 Temperature 97.7 F Pulse Rate 88 71 92 Respiratory Rate 17 Blood Pressure 101/89 Pulse Oximetry 97 Oxygen Delivery Fraction of Inspired Oxygen 02/05/25 08:17 Temperature Pulse Rate 96 Respiratory Rate Blood Pressure Pulse Oximetry 98 Oxygen Delivery Mechanical Ventilation Fraction of Inspired Oxygen 30 Exam 2 Const: General: no acute distress Eyes: General: appearance normal, both eyes and all related structures S clera: sclerae normal Pupils: Equal, round and reactive pupils present Resp: Other: intubated on ventilator Cardio: Rate: regular rate Rhythm: regular rhythm GI: Inspection: non-distended GI Palp: Yes Soft to palpation Other: large abdomen with pannus Urinary Catheter: Urinary Catheter: patent and draining Skin: Lesions: lesion noted Extrem: General: normal to inspection Results Labs 02/05/25 04:20 02/05/25 04:20 Labs: Short CBC 02/05/25 Range/Units 04:20 WBC 36.9 H (4.5-10.0) K/mm3 Hgb 7.0 L (12.0-15.0) g/dL Hct 22.4 L (37.0-47.0) % Plt Count 170 (150-375) k/mm3 BMP 02/05/25 04:20 Sodium 139 Potassium 3.7 Chloride 103 Carbon Dioxide 31 H BUN 38 H D Creatinine 1.15 H Glucose 240 H Calcium 7.8 L Liver Function 02/05/25 Range/Units 04:20 Total Bilirubin 0.8 (0.2-1.3) mg/dL AST 20 (14-36) U/L ALT 16 (6-35) U/L Alkaline Phosphatase 111 (38-126) U/L Albumin 2.4 L (3.5-5.1) g/dL
[2025-02-05 09:29] LABS: IFOB Positive Control Positive; Immunochemical Fecal Occult Bl Positive (N)
--- NOTE | 2025-02-05 10:48 | PCNFU ---
Nutrition Follow-Up Complete: Inadequate energy intake related to NPO status as evidenced by current diet orders goal: Diet order PO intake 75% or greater Patient is not meeting goal. New goal: Meet estimated nutritional needs. Pt current nutrition is Vital AF 1.2 at 50 ml/hr. Nutrition recommendation: goal rate 60 ml/hr. Last recorded weight is 100.5 kg, up from 98.9 kg Bowel Motility:FMS Labs Reviewed: Glu 240, Alb 2.4,Hgb 7.0, Hct 22.4 Meds Noted: Levophed, Versed, Fentanyl, Lantus,NovoLog, Meropenem. Skin: WNL Additional Notes: Patient remains on mechanical vent. Tolerating tube feedings. Plans to advance tube feedings to 60 ml/hr today. Total Nutrition: 1584 kcal/99 gm protein/1071 ml water. Flush 30 ml q 4 hours. Tube feedings meeting 80% kcal needs at 20 kcal/kg and 84% protein needs at 2.0 gm/kg. Agree with diet orders at this time. Monitor intake, wt, labs. Follow up every Saturday and Saturday.
[2025-02-05] MEDS: SODIUM CHLORIDE 0.9% IV 250 ML 30 ML IV CONT (10:54)
[2025-02-05 11:14] LABS: Glucose Point of Care 257 mg/dl (65-105)
[2025-02-05] MEDS: dexmedeTOMIDine 400 MCG/100 ML 400 MCG/100 ML BAG 5.03 MCG IV CONT (11:43)
[2025-02-05 13:19] LABS: Folic Acid 3.6 ng/mL (2.76->20)
--- NOTE | 2025-02-05 15:19 | PM.PNGS ---
Progress Note: A&P Assessment and Plan (1) Intra-abdominal abscess: Code(s): K65.1 - Peritoneal abscess Status: Acute Assessment and Plan: cont drain and abx, off pressors, cont TF (2) Septic shock: Code(s): A41.9 - Sepsis, unspecified organism; R65.21 - Severe sepsis with septic shock Status: Acute Assessment and Plan: see above (3) Acute respiratory failure: Qualifiers: Respiratory failure complication: hypoxia Qualified Code(s): J96.01 - Acute respiratory failure with hypoxia Code(s): J96.00 - Acute respiratory failure, unspecified whether with hypoxia or hypercapnia Status: Acute Assessment and Plan: weaning sedation, wean vent per insurance legal assistant Subjective Subjective Date/Time Seen: 02/05/25 15:19 Interval history: no acute issues, off all pressors, weaning sedation, maria isabel TF Review of Systems Review of Systems: ROS unobtainable: Yes unobtainable due to endotracheal tube Exam Const: General: ill appearing Other: intubated, sedated Resp: Auscultation: diminished lung sounds Cardio: Rate: regular rate Rhythm: regular rhythm GI: Inspection: normal to inspection, non-distended and obesity GI Palp: Yes Soft to palpation Other: drain c minimal purulent discharge Objective Data Vital Signs Vital Signs: Vital Signs - 24 hr 02/04/25 16:00 02/04/25 16:00 02/04/25 16:00 Temperature 36.7 C Pulse Rate 64 Respiratory Rate 18 Blood Pressure 109/70 Pulse Oximetry 99 99 Oxygen Delivery Mechanical Ventilation Fraction of Inspired Oxygen 40 40 02/04/25 16:00 02/04/25 16:00 02/04/25 16:00 Temperature Pulse Rate 63 64 64 Respiratory Rate 18 18 Blood Pressure Pulse Oximetry Oxygen Delivery Fraction of Inspired Oxygen 02/04/25 16:00 02/04/25 17:21 02/04/25 18:00 Temperature 37.1 C Pulse Rate 64 62 67 Respiratory Rate 18 Blood Pressure 109/70 115/54 L Pulse Oximetry 99 98 Oxygen Delivery Mechanical Ventilation Fraction of Inspired Oxygen 40 02/04/25 18:00 02/04/25 18:00 02/04/25 18:00 Temperature Pulse Rate 67 67 67 Respiratory Rate 18 18 Blood Pressure Pulse Oximetry Oxygen Delivery Fraction of Inspired Oxygen 02/04/25 18:00 02/04/25 19:50 02/04/25 19:52 Temperature Pulse Rate 67 58 L 58 L Respiratory Rate 18 Blood Pressure 115/54 L Pulse Oximetry 98 Oxygen Delivery Mechanical Ventilation Fraction of Inspired Oxygen 40 02/04/25 19:53 02/04/25 20:00 02/04/25 20:00 Temperature 37.1 C 37.1 C Pulse Rate 57 L 63 Respiratory Rate 24 H 18 Blood Pressure 93/49 L 91/48 L Pulse Oximetry 100 98 Oxygen Delivery Fraction of Inspired Oxygen 40 02/04/25 20:00 02/04/25 20:00 02/04/25 20:00 Temperature Pulse Rate 59 L 59 L 59 L Respiratory Rate 18 18 Blood Pressure 115/55 L Pulse Oximetry Oxygen Delivery Fraction of Inspired Oxygen 02/04/25 20:05 02/04/25 22:00 02/04/25 22:00 Temperature 36.8 C Pulse Rate 61 87 88 Respiratory Rate 24 H Blood Pressure 111/60 Pulse Oximetry 99 98 Oxygen Delivery Mechanical Ventilation Fraction of Inspired Oxygen 40 02/04/25 22:00 02/04/25 22:00 02/04/25 23:00 Temperature Pulse Rate 62 62 62 Respiratory Rate 18 18 Blood Pressure 126/59 L Pulse Oximetry Oxygen Delivery Fraction of Inspired Oxygen 02/04/25 23:06 02/04/25 23:06 02/04/25 23:08 Temperature Pulse Rate 93 93 93 Respiratory Rate 18 18 18 Blood Pressure Pulse Oximetry Oxygen Delivery Fraction of Inspired Oxygen 02/04/25 23:31 02/04/25 23:32 02/04/25 23:40 Temperature Pulse Rate 87 96 89 Respiratory Rate 18 Blood Pressure Pulse Oximetry 98 98 Oxygen Delivery Mechanical Ventilation Mechanical Ventilation Fraction of Inspired Oxygen 40 40 02/05/25 00:00 02/05/25 00:00 02/05/25 00:00 Temperature 36.8 C Pulse Rate 84 89 Respiratory Rate 24 H Blood Pressure 92/53 L 89/52 L Pulse Oximetry 98 Oxygen Delivery Fraction of Inspired Oxygen 40 02/05/25 00:00 02/05/25 00:00 02/05/25 02:00 Temperature 36.6 C Pulse Rate 89 89 79 Respiratory Rate 18 18 24 H Blood Pressure 115/64 Pulse Oximetry 98 Oxygen Delivery Fraction of Inspired Oxygen 02/05/25 02:00 02/05/25 02:00 02/05/25 02:00 Temperature Pulse Rate 94 84 84 Respiratory Rate 18 18 Blood Pressure Pulse Oximetry Oxygen Delivery Fraction of Inspired Oxygen 02/05/25 02:00 02/05/25 02:08 02/05/25 02:08 Temperature Pulse Rate 83 87 97 Respiratory Rate 18 Blood Pressure 119/65 Pulse Oximetry 91 Oxygen Delivery Mechanical Ventilation Fraction of Inspired Oxygen 40 02/05/25 02:20 02/05/25 04:00 02/05/25 04:00 Temperature 36.7 C Pulse Rate 94 94 94 Respiratory Rate 18 24 H 18 Blood Pressure 97/55 L Pulse Oximetry 98 97 Oxygen Delivery Mechanical Ventilation Fraction of Inspired Oxygen 30 02/05/25 04:00 02/05/25 04:00 02/05/25 04:00 Temperature Pulse Rate 88 89 Respiratory Rate Blood Pressure 96/55 L Pulse Oximetry Oxygen Delivery Fraction of Inspired Oxygen 30 02/05/25 04:00 02/05/25 04:00 02/05/25 04:46 Temperature Pulse Rate 89 89 105 H Respiratory Rate 18 18 Blood Pressure Pulse Oximetry 98 Oxygen Delivery Mechanical Ventilation Fraction of Inspired Oxygen 30 02/05/25 06:00 02/05/25 06:00 02/05/25 06:00 Temperature 36.5 C Pulse Rate 101 H 83 88 Respiratory Rate 26 H Blood Pressure 92/53 L 100/54 L Pulse Oximetry 98 Oxygen Delivery Fraction of Inspired Oxygen 02/05/25 07:00 02/05/25 07:30 02/05/25 08:00 Temperature 36.5 C Pulse Rate 87 83 71 Respiratory Rate 17 Blood Pressure 78/54 L 110/76 101/89 Pulse Oximetry 97 Oxygen Delivery Fraction of Inspired Oxygen 02/05/25 08:00 02/05/25 08:00 02/05/25 08:00 Temperature Pulse Rate 83 99 Respiratory Rate 17 Blood Pressure Pulse Oximetry 99 Oxygen Delivery Mechanical Ventilation Fraction of Inspired Oxygen 30 30 02/05/25 08:14 02/05/25 08:17 02/05/25 09:18 Temperature 36.6 C Pulse Rate 92 96 80 Respiratory Rate 16 Blood Pressure 112/64 Pulse Oximetry 98 98 Oxygen Delivery Mechanical Ventilation Fraction of Inspired Oxygen 30 02/05/25 09:30 02/05/25 09:35 02/05/25 09:35 Temperature 36.6 C Pulse Rate 96 104 H 91 Respiratory Rate 17 Blood Pressure 86/56 L 145/85 H 148/88 H Pulse Oximetry 98 Oxygen Delivery Fraction of Inspired Oxygen 02/05/25 10:00 02/05/25 10:00 02/05/25 10:35 Temperature 36.5 C 36.4 C Pulse Rate 83 77 93 Respiratory Rate 16 18 Blood Pressure 128/80 109/96 H Pulse Oximetry 99 96 Oxygen Delivery Fraction of Inspired Oxygen 02/05/25 11:07 02/05/25 11:35 02/05/25 11:43 Temperature 36.4 C Pulse Rate 90 77 87 Respiratory Rate 16 16 Blood Pressure 129/80 Pulse Oximetry 98 98 Oxygen Delivery Mechanical Ventilation Fraction of Inspired Oxygen 30 02/05/25 11:44 02/05/25 12:00 02/05/25 12:00 Temperature 36.5 C Pulse Rate 83 85 82 Respiratory Rate 18 16 16 Blood Pressure 141/87 H Pulse Oximetry 98 98 Oxygen Delivery Mechanical Ventilation Fraction of Inspired Oxygen 30 02/05/25 12:00 02/05/25 12:00 02/05/25 13:10 Temperature Pulse Rate 82 74 Respiratory Rate 16 Blood Pressure Pulse Oximetry Oxygen Delivery Fraction of Inspired Oxygen 30 02/05/25 13:11 02/05/25 13:11 02/05/25 13:40 Temperature Pulse Rate 77 89 77 Respiratory Rate 16 18 Blood Pressure 110/64 Pulse Oximetry Oxygen Delivery Fraction of Inspired Oxygen 02/05/25 14:00 02/05/25 14:00 02/05/25 14:44 Temperature 36.6 C Pulse Rate 74 79 69 Respiratory Rate 20 Blood Pressure 100/60 Pulse Oximetry 98 Oxygen Delivery Fraction of Inspired Oxygen 02/05/25 14:45 Temperature Pulse Rate 72 Respiratory Rate Blood Pressure Pulse Oximetry 98 Oxygen Delivery Mechanical Ventilation Fraction of Inspired Oxygen 30 Intake/Output Intake/Output: Intake & Output 02/02/25 02/03/25 02/04/25 02/05/25 23:59 23:59 23:59 23:59 Intake Total 2129.4 3748.8 2745.7 1652.2 Output Total 735 1180 1555 175 Balance 1394.4 2568.8 1190.7 1477.2 Meds/Results Medications: Active Medications Generic Name Dose Route Start Last Admin Trade Name Freq PRN Reason Stop Dose Admin Acetaminophen 650 mg 01/25/25 20:51 02/01/25 19:04 Acetaminophen 325 Mg Tablet PO 650 mg Q4H PRN Administration Headache Dextrose 12.5 gm 01/25/25 20:46 01/26/25 11:40 Dextrose 50% 25 Gm/50 Ml Syringe IV PUSH 12.5 gm PRN PRN Administration Hypoglycemia Protocol Fentanyl Citrate 25 mcg 01/25/25 20:51 02/02/25 01:12 Fentanyl Citrate Inj (*Crx) 100 Mcg/2 Ml Vial IV PUSH 25 mcg Q4H PRN Administration Pain Rated 6 or Greater Glucagon 1 mg 01/25/25 20:46 Glucagon For Inj 1 Mg Vial IM PRN PRN Hypoglycemia Protocol Glucose 15 gm 01/25/25 20:46 Glucose Oral Gel 15 Gm Of Glucse In 37.5 Gm Tube PO PRN PRN Hypoglycemia Protocol Hydrocortisone Sodium Succinate 100 mg 02/02/25 14:20 02/05/25 13:09 Hydrocortisone Sodium Succinate 100 Mg/2 Ml Vial IV PUSH 100 mg Q8HR KANDIS Administration Dextrose 1,000 mls @ 100 mls/hr 01/25/25 20:46 Dextrose 5% 1,000 Ml IVPB PRN PRN Hypoglycemia Protocol Meropenem 1 gm in 100 mls @ 200 mls/hr 01/29/25 13:00 02/05/25 06:14 IVPB 200 mls/hr Q8HR KANDIS Administration Doxycycline Hyclate 100 mg in 100 mls @ 100 mls/hr 02/02/25 11:00 02/05/25 09:45 Vibramycin 100 Mg/Ns 100 Ml IVPB 02/06/25 21:59 Infused Q12HR KANDIS Infusion Fentanyl Citrate 2,500 mcg in 250 mls @ 0 mls/hr 02/02/25 12:55 02/05/25 13:40 Fentanyl 2,500 Mcg/Ns 250 Ml IV CONT 0 mcg/hr .Q0M KANDIS 0 mls/hr Titration Protocol 0 MCG/HR Midazolam HCl 100 mg in 100 mls @ 0 mls/hr 02/02/25 12:55 02/05/25 11:44 Versed 100 Mg/Ns 100 Ml IV CONT 0 mg/hr .Q0M KANDIS 0 mls/hr Titration Protocol 0 MG/HR Norepinephrine Bitartrate 8 mg in 250 mls @ 0 mls/hr 02/02/25 14:10 02/05/25 13:11 Levophed 8 Mg/D5w 250 Ml IV CONT 0 mcg/min .Q0M KANDIS 0 mls/hr Titration Protocol 0 MCG/MIN Metronidazole 500 mg in 100 mls @ 100 mls/hr 02/04/25 12:00 02/05/25 12:43 Flagyl 500 Mg/Iso Soln 100 Ml IVPB Infused Q6HR KANDIS Infusion Sodium Chloride 250 mls @ 30 mls/hr 02/05/25 07:23 02/05/25 10:54 Normal Saline Iv IV CONT 02/05/25 15:42 30 mls/hr .Q8H20M STA Administration Dexmedetomidine HCl 400 mcg in 100 mls @ 7.538 mls/hr 02/05/25 11:00 02/05/25 13:11 Precedex 400 Mcg/100 Ml IV CONT 0.3 mcg/kg/hr .[id number] KANDIS 7.54 mls/hr Titration Protocol 0.3 MCG/KG/HR Insulin Aspart 4 - 8 units 02/02/25 18:00 02/05/25 12:18 Insulin Aspart (*Bkc) 100 Units/Ml SUB-Q 5 units Q6H KANDIS Administration Protocol Insulin Glargine 10 units 01/29/25 21:00 02/01/25 21:11 Insulin Glargine (*Bkc) 100 Units/Ml SUB-Q 10 units HS KADNIS Administration Insulin Glargine 10 units 02/05/25 09:00 02/05/25 08:59 Insulin Glargine (*Bkc) 100 Units/Ml SUB-Q 10 units DAILY AKNDIS Administration Ipratropium [place] 0.5 mg 02/02/25 14:20 02/05/25 14:42 Ipratropium Br 0.02% Inh Soln 0.5 Mg/2.5 Ml Vial INHALATION 0.5 mg Q6HRT KANDIS Administration Lactobacillus Acidophilus 1 pkt 02/03/25 09:00 02/05/25 12:19 Acidophilus Packet 1 Pkt Packet PO 1 pkt QID KANDIS Administration Levalbuterol HCl 0.63 mg 02/02/25 14:20 02/05/25 14:42 Levalbuterol Neb 1.25 Mg/3 Ml INHALATION 0.63 mg Q6HRT KANDIS Administration Midazolam HCl 2 mg 02/02/25 12:51 02/02/25 12:43 Midazolam Hcl (*Crx) 2 Mg/2 Ml Vial IV PUSH 2 mg PRN PRN Administration Sedation Multi-Ingred Cream/Lotion/Oil/Oint 1 applic 02/02/25 21:00 02/05/25 08:45 Mineral Oil/White Petrolatum Ointment EACH EYE 1 applic Q12HR KANDIS Administration Ondansetron HCl 4 mg 01/25/25 20:51 01/31/25 21:23 Ondansetron Inj 4 Mg/2 Ml Vial IV PUSH 4 mg Q6H PRN Administration Nausea And Vomiting Pantoprazole Sodium 40 mg 02/04/25 21:00 02/05/25 08:45 Pantoprazole Sodium Iv 40 Mg Vial IV PUSH 40 mg Q12HR KANDIS Administration Perflutren Lipid Microsphere 0 ml 02/04/25 07:37 Perflutren Lipid Microspheres 1.5 Ml Vial Diluted To 10 Ml Total Volume IV PUSH 02/07/25 07:37 ONCE PRN adequate visualization Protocol Sodium Chloride 10 ml 02/02/25 14:00 02/05/25 13:09 Central Line Flush IV PUSH 10 ml Q8HR KANDIS Administration Sodium Chloride 20 ml 02/02/25 13:47 02/03/25 21:40 Central Line Flush IV PUSH 20 ml PRN PRN Administration after blood draws Radiology Results: ITS Impressions Pelvis CT 01/26/25 14:17 IMPRESSION: 1. No significant change in a bilobed gas and fluid containing abscess in the deep pelvis. Patient canceled the planned percutaneous abscess drainage catheter placement due to discomfort despite attempts at repositioning. Abdomen/Pelvis CT 01/29/25 09:28 Impression: Stable large bilobed multilocular abscess in the pelvis extensively involving the distal sigmoid colon and rectum. Stable wall thickening of the distal sigmoid colon and rectum. Small right pleural effusion with right basilar atelectatic change. Cholelithiasis. Nephrolithiasis bilaterally, as detailed above. Catheter Placement CT 02/02/25 16:48 IMPRESSION: 1. Technically successful CT-guided drainage catheter placement with likely translocation and overwhelming sepsis following initial aspiration with subsequent cardiac and respiratory arrest. 2. 12-14 mL fluid was sent for aerobic and anaerobic cultures. Please see separate CODE BLUE flow sheet for additional details of the CODE BLUE portion of the case. Chest X-Ray 02/05/25 06:23 Impression: Probable mild bibasilar pulmonary edema/atelectasis with minimal right pleural effusion. Support tubes, as above. Labs Labs: Laboratory Results - last 24 hr 02/03/25 02/04/25 02/04/25 08:09 17:21 23:50 WBC RBC Hgb Hct MCV MCH MCHC RDW Plt Count MPV Immature Gran % (Auto) Neut % (Auto) Lymph % (Auto) [place] % (Auto) Eos % (Auto) Baso % (Auto) Lymph # (Auto) [place] # (Auto) Eos # (Auto) Baso # (Auto) Abs Immat Gran (auto) Absolute Neuts (auto) Absolute Nucleated RBC Band Neutrophils % Nucleated RBC % Platelet Estimate Hypochromasia Anisocytosis Microcytosis Schistocytes Puncture Site ABG pH ABG pCO2 ABG pO2 ABG PO2/FiO2 Ratio ABG HCO3 ABG O2 Saturation ABG O2 Content ABG Base Excess A-a Gradient Oxyhemoglobin Carboxyhemoglobin Methemoglobin Reduced Hemoglobin Total Hemoglobin O2 Delivery Device O2 Liters/Min Minute Volume Vent Rate Vent Mode FiO2 Tidal Volume PEEP Peak Inspir Pressure Pressure Support Sodium Potassium Chloride Carbon Dioxide Anion Gap BUN Creatinine Estim Creat Clear Calc Estimated GFR Glucose POC Capillary Glucose 219 H 226 H Lactic Acid Calcium Phosphorus Magnesium Total Bilirubin AST ALT Alkaline Phosphatase Total Protein Albumin Vitamin B12 Folate Stl Occult Blood (IFOB) Blood Type O Positive Antibody Screen Negative Crossmatch See Detail 02/05/25 02/05/25 02/05/25 04:20 09:16 11:09 WBC 36.9 H RBC 2.82 L Hgb 7.0 L Hct 22.4 L MCV 79.4 L MCH 24.8 L MCHC 31.3 L RDW 17.3 H Plt Count 170 MPV 10.5 H Immature Gran % (Auto) 3.9 H Neut % (Auto) 93.3 H Lymph % (Auto) 1.3 L [place] % (Auto) 1.2 L Eos % (Auto) 0.0 Baso % (Auto) 0.3 Lymph # (Auto) 0.47 L [place] # (Auto) 0.4 Eos # (Auto) 0.0 Baso # (Auto) 0.1 Abs Immat Gran (auto) 1.43 H Absolute Neuts (auto) 34.5 H Absolute Nucleated RBC 0.020 H Band Neutrophils % 0 Nucleated RBC % 0.1 Platelet Estimate Adequate Hypochromasia 1+ Anisocytosis 1+ Microcytosis 1+ Schistocytes None seen Puncture Site Artline ABG pH 7.525 H* ABG pCO2 34.0 L ABG pO2 87.8 ABG PO2/FiO2 Ratio 2.93 ABG HCO3 27.5 H ABG O2 Saturation 97.5 ABG O2 Content 10.3 L ABG Base Excess 4.4 A-a Gradient 86.2 Oxyhemoglobin 95.7 Carboxyhemoglobin 1.0 Methemoglobin 0.3 Reduced Hemoglobin 3.0 Total Hemoglobin 7.5 L* O2 Delivery Device Ventilator O2 Liters/Min Not Reportable Minute Volume Not Reportable Vent Rate 18 Vent Mode Cmv FiO2 30 Tidal Volume 420 PEEP 8 Peak Inspir Pressure Not Reportable Pressure Support Not Reportable Sodium 139 Potassium 3.7 Chloride 103 Carbon Dioxide 31 H Anion Gap 5 BUN 38 H D Creatinine 1.15 H Estim Creat Clear Calc 45 Estimated GFR 46 L Glucose 240 H POC Capillary Glucose 257 H Lactic Acid 1.4 Calcium 7.8 L Phosphorus 3.4 Magnesium 2.3 Total Bilirubin 0.8 AST 20 ALT 16 Alkaline Phosphatase 111 Total Protein 6.0 L Albumin 2.4 L Vitamin B12 917.0 Folate 3.6 Stl Occult Blood (IFOB) Positive H Blood Type Antibody Screen Crossmatch
[2025-02-05 16:23] LABS: Hematocrit 26.9 % (37.0-47.0); Hemoglobin 8.3 g/dL (12.0-15.0)
[2025-02-05 18:13] LABS: Glucose Point of Care 269 mg/dl (65-105)
[2025-02-05] MEDS: dexmedeTOMIDine 400 MCG/100 ML 400 MCG/100 ML BAG 10.05 MCG IV CONT (22:01)
[2025-02-05 23:52] LABS: Glucose Point of Care 291 mg/dl (65-105)
[2025-02-06] VITALS (41 sets, daily range): BP systolic 112–160; BP diastolic 69–94; PULSE 71–125; RESP 14–26; TEMP 36.7–37.6; O2SAT 88–98
[2025-02-06] MEDS: IPRATROPIUM BR 0.02% INH SOLN 0.5 MG/2.5 ML VIAL INHALATION ×4 (02:07→20:22)
[2025-02-06] MEDS: LEVALBUTEROL NEB 1.25 MG/3 ML 0.63 MG INHALATION ×4 (02:07→20:22)
[2025-02-06] MEDS: MIDAZOLAM HCL (*CRX) 2 MG/2 ML VIAL IV PUSH (04:51)
[2025-02-06 04:57] LABS: Basophils Percent Auto 0.2 % (0.2-1.2); Hematocrit 28.1 % (37.0-47.0); Hemoglobin 8.6 g/dL (12.0-15.0); Immature Granulocyte Absolute 0.16 K/mm3 (0.00-0.031); Immature Granulocyte Percent A 0.9 % (0-0.5); Lymphocytes Absolute Auto 0.49 K/mm3 (0.9-3.2); Lymphocytes Percent Auto 2.8 % (18.3-44.2); Mean Corpuscular HGB Conc 30.6 g/dl (32-36); Mean Corpuscular Hemoglobin 24.9 pg (26-34); Mean Corpuscular Volume 81.4 fl (80-100); Monocytes Absolute Auto 0.4 K/mm3 (0.1-0.6); Monocytes Percent Auto 2.1 % (2.6-8.5); Neutrophils Absolute Auto 16.6 K/mm3 (1.3-6.7); Platelet Count Result 165 k/mm3 (150-375); Red Blood Count 3.45 M/mm3 (4.2-5.4); Red Cell Distribution Width 17.5 % (11.5-14.5); White Blood Count 17.7 K/mm3 (4.5-10.0)
[2025-02-06 05:07] LABS: Alanine Aminotransferase 16 U/L (6-35); Albumin Level 2.5 g/dL (3.5-5.1); Alkaline Phosphatase 110 U/L (38-126); Anion Gap 6 mmol/L (4-12); Aspartate Amino Transferase 16 U/L (14-36); Bilirubin,Total 0.8 mg/dL (0.2-1.3); Blood Urea Nitrogen 46 mg/dL (7-17); Calcium 8.2 mg/dL (8.4-10.2); Carbon Dioxide 32 mmol/L (22-30); Chloride 103 mmol/L (98-107); Estimated CRCL calculation 52 ml/min; Estimated Glomerular Filt Rate 54; Glucose 331 mg/dL (65-110); Magnesium 2.3 mg/dL (1.6-2.3); Phosphorus 3.5 mg/dL (2.5-4.5); Sodium 141 mmol/L (137-145)
[2025-02-06 05:22] LABS: Alveolar/Arterial O2 Gradient 91.9 mmHg; Base Excess ABG 5.2 mEq/l (+/-2.0); Carboxyhemoglobin 0.8 % THb (0-2.0); Fractional Inspired Oxygen 30 %; HCO3 ABG 28.8 mEq/l (22.0-26.0); Methemoglobin ABG 0.3 %THb (0-1.5); Oxygen Saturation ABG 96.2 % (95.0-100.0); PCO2 ABG 38.8 mmHg (35.0-45.0); PO2 ABG 76.4 mmHg (80.0-100.0); PO2 FiO2 Ratio Arterial Blood 2.55 %; Reduced Hemoglobin 4.9 %THb (0-5.0); Total Hemoglobin 9.8 g/dL (12.0-18.0); pH ABG 7.489 (7.350-7.450)
[2025-02-06 05:23] LABS: Device VENTILATOR; Modified Allen's Test Pass; Site Drawn RIGHT RADIAL
[2025-02-06 05:24] LABS: Arterial Blood Gas PEEP 8 cmH2O; Arterial Blood Gas Tidal Volume 420 ml; Arterial Blood Gas Vent Mode CMV; Arterial Blood Gas Ventilator rate 16 /MIN
[2025-02-06 05:26] LABS: Platelet Estimate Adequate (Adequate)
[2025-02-06 05:27] LABS: Anisocytosis 1+; Schistocytes Rare
[2025-02-06] MEDS: MEROPENEM 1 GM/NS 100 ML 1 GM/100 ML BAG IVPB ×3 (05:30→22:18)
[2025-02-06] MEDS: INSULIN ASPART (*BKC) 100 UNITS/ML SUB-Q ×2 (06:20→11:41)
[2025-02-06] MEDS: metroNIDAZOLE 500 MG/ISO 100ML 500 MG/100 ML BAG 100 MG IVPB ×3 (06:20→17:10)
[2025-02-06] MEDS: dexmedeTOMIDine 400 MCG/100 ML 400 MCG/100 ML BAG 17.59 MCG IV CONT (06:27)
[2025-02-06] MEDS: HYDROCORTISONE SODIUM SUCCINATE 100 MG/2 ML VIAL IV PUSH (06:28)
[2025-02-06] MEDS: PANTOPRAZOLE SODIUM IV 40 MG VIAL IV PUSH ×2 (08:58→20:18)
[2025-02-06] MEDS: INSULIN GLARGINE (*BKC) 100 UNITS/ML 20 UNITS SUB-Q (08:58)
[2025-02-06] MEDS: MINERAL OIL/WHITE PETROLATUM OINTMENT 1 APPLIC EACH EYE ×2 (08:59→20:30)
[2025-02-06] MEDS: FUROSEMIDE INJ 40 MG/4 ML VIAL IV PUSH (08:59)
[2025-02-06] MEDS: CENTRAL LINE FLUSH 10 ML IV PUSH ×3 (08:59→22:14)
[2025-02-06] MEDS: ACIDOPHILUS PACKET 1 PKT PACKET PO (08:59)
[2025-02-06] MEDS: DOXYCYCLINE 100 MG/NS 100 ML 100 MG/100 ML BAG IVPB ×2 (08:59→20:27)
--- NOTE | 2025-02-06 09:39 | P.PNINT_ITS ---
Progress Note: A&P Assessment and Plan (1) Cardiac arrest: Code(s): I46.9 - Cardiac arrest, cause unspecified Status: Acute Assessment and Plan: Patient had a cardiac arrest after placement of a percutaneous drain in the pelvic abscess. Could be related to vasovagal, translocation of bacteria, hypoxia as patient was laying flat, hypovolemia, acidosis -successful ROSC x2, intubated in the CT scan suite by ER physician -patient did follow commands post code a continue, so not a candidate for targeted temperature management -will continue to treat underlying cause (2) Septic shock: Code(s): A41.9 - Sepsis, unspecified organism; R65.21 - Severe sepsis with septic shock Status: Acute Assessment and Plan: 02/01:In the ICU patient dropped her blood pressures -patient has been adequately fluid-resuscitated with IV fluids and albumin -01/25: Blood cultures negative x2 -02/02: repeat blood cultures -growing E coli (pansensitive) and Clostridium ramosum -02/02: Abscess fluid culture growing E coli and Bacteroides fragilis 02/03: WBC count up to 64, could be related to septic shock, infection, leukomoid reaction, steroids. Will continue to monitor -WBC count is trending down, patient is afebrile, continue to monitor --continue meropenem, Flagyl 02/04: Discontinue vancomycin -continue doxycycline for 5 days - weaning stress dose steroid -off all pressors (patient was on Levophed, Bobo-Synephrine and vasopressin) -WBC count trending down 02/04: Repeat blood cultures growing gram variable bacilli and Gram-negative b acilli (3) Acute respiratory failure: Qualifiers: Respiratory failure complication: hypoxia Qualified Code(s): J96.01 - Acute respiratory failure with hypoxia Code(s): J96.00 - Acute respiratory failure, unspecified whether with hypoxia or hypercapnia Status: Acute Assessment and Plan: Acute respiratory failure likely related to cardiac arrest possible from septic shock, infection, hypovolemia, translocation of bacteria, acidosis, hypoxia -patient intubated in the CT scan suite by ER physician -currently on CMV mode of ventilation, peep of 8, will wean FiO2 to maintain O2 sats greater than 92% -chest x-ray and ABGs reviewed -ventilator adjusted -continue Xopenex and Atrovent nebulizer -patient has been on Precedex infusion, awake, follows simple commands -patient is 10 L positive fluid balance since admission, will give Lasix -place patient on pressure support ventilation, will evaluate for extubation (4) Intra-abdominal abscess: Code(s): K65.1 - Peritoneal abscess Status: Acute Assessment and Plan: Intra-abdominal abscess, status post percutaneous IR drain placement on 02/01/2025 -draining purulent material, cultures as above -surgery is following the patient -continue antibiotics as above (5) Diabetes 1.5, managed as type 2: Code(s): E13.9 - Other specified diabetes mellitus without complications Status: Acute Assessment and Plan: Continue Accu-Cheks and sliding scale insulin -tolerating trickle tube feeds, hyperglycemic, -increase Lantus again today (6) Hypertension: Qualifiers: Hypertension type: unspecified Qualified Code(s): I10 - Essential (primary) hypertension Code(s): I10 - Essential (primary) hypertension Status: Acute Assessment and Plan: Patient just came off pressors, continue to hold antihypertensives for now -will add p.r.n. hydralazine (7) Anemia: Qualifiers: Anemia type: other cause Other causes of anemia: chronic disease, other Qualified Code(s): D63.8 - Anemia in other chronic diseases classified elsewhere Code(s): D64.9 - Anemia, unspecified Status: Acute Assessment and Plan: 02/03: Hemoglobin dropped to 6.3. -will transfuse 1 unit of packed RBC -hemoglobin stable -02/05: hemoglobin dropped to 7.0 -status post 1 unit of packed RBC -iron panel reflective of iron deficiency anemia and/or anemia of chronic diseas e -folic acid and vitamin B12 levels within normal limits -stool occult was positive -appreciate GI evaluation and recommendations Plan DVT prophylaxis: Hold Lovenox due to anemia, SCD orders in place Stress ulcer prophylaxis: Protonix IV q.12 hours Nutrition: Tolerating tube feeds Code Status: Full code Critical Care Time Spent: 32 minutes Discussed with patient daughter Leslye, and updated with patient's condition and plan of care. I answered all her questions. Due to a high probability of clinically significant, life threatening det erioration, the patient required my highest level of preparedness to intervene emergently and I personally spent this critical care time directly and personally managing the patient. This critical care time included obtaining a history; examining the patient; pulse oximetry; ordering and review of studies; arranging urgent treatment with development of a management plan; evaluation of patient's response to treatment; frequent reassessment; and discussions with other providers. It was exclusive of separately billable procedures and treating other patients and teaching time. Please see Assessment and Plan section and the rest of the note for further information on patient assessment and treatment This dictation may have been done utilizing a voice recognition system. Attempts have been made to correct errors. However, there may be uncorrected grammatical, spelling, and recognitions errors present. Subjective Date/time seen: 02/06/25 09:39 Interval history: Reason for consult: Cardiac arrest, acute respiratory failure, abdominal abscess, sepsis 02/06/2025: Patient seen and and examined in the ICU, remains intubated on CMV mode of ventilation, peep of 8, 30% FiO2. Off Versed and fentanyl infusion, remains on Precedex infusion. Patient's is awake, eyes are open, follows simple commands in all extremities. Urine output has improved, creatinine has normalized, patient has been afebrile overnight. Has been off Levophed. Continues to have bowel movement, white count trending down Review of Systems Review of Systems: ROS unobtainable: Yes unobtainable due to endotracheal tube, unobtainable due to medical condition and unobtainable due to mental status Exam Narrative: General: Obese female currently in no acute distress HEENT:? Pupils equal and reactive, sclera is clear, ETT in place Neck:? Supple Respiratory:? Coarse breath sounds bilaterally, decreased at bases, no wheezing, adequate air entry Cardiac:? S1-S2 normal, regular rate and rhythm Abdomen:? Soft, nontender, obese, hypoactive bowel sounds, left lower quadrant drain in place with purulent drainage Extremities:? Trace edema, palpable pedal pulse Neuro:? Patient remains on Precedex infusion, eyes are open, awake, follows simple commands in all extremities Skin:? No skin lesions noted Psych:? Unable to assess at this time Objective Data Vital Signs Vital Signs: Vital Signs - 24 hr 02/05/25 10:02/05/25 10:02/05/25 10:00 Temperature 97.7 F Pulse Rate 83 77 84 Respiratory Rate 16 17 Blood Pressure 128/80 Pulse Oximetry 99 Oxygen Delivery Fraction of Inspired Oxygen 02/05/25 10:00 02/05/25 10:00 02/05/25 10:35 Temperature 97.6 F Pulse Rate 78 89 93 Respiratory Rate 18 18 Blood Pressure 111/92 H 109/96 H Pulse Oximetry 96 Oxygen Delivery Fraction of Inspired Oxygen 02/05/25 11:07 02/05/25 11:35 02/05/25 11:43 Temperature 97.6 F Pulse Rate 90 77 87 Respiratory Rate 16 16 Blood Pressure 129/80 Pulse Oximetry 98 98 Oxygen Delivery Mechanical Ventilation Fraction of Inspired Oxygen 30 02/05/25 11:44 02/05/25 12:00 02/05/25 12:00 Temperature 97.7 F Pulse Rate 83 85 82 Respiratory Rate 18 16 16 Blood Pressure 141/87 H Pulse Oximetry 98 98 Oxygen Delivery Mechanical Ventilation Fraction of Inspired Oxygen 30 02/05/25 12:00 02/05/25 12:00 02/05/25 12:00 Temperature Pulse Rate 82 78 Respiratory Rate 18 Blood Pressure Pulse Oximetry Oxygen Delivery Fraction of Inspired Oxygen 30 02/05/25 12:00 02/05/25 12:00 02/05/25 12:00 Temperature Pulse Rate 79 79 78 Respiratory Rate 17 17 Blood Pressure 141/87 H Pulse Oximetry Oxygen Delivery Fraction of Inspired Oxygen 02/05/25 13:10 02/05/25 13:11 02/05/25 13:11 Temperature Pulse Rate 74 77 89 Respiratory Rate 16 16 Blood Pressure 110/64 Pulse Oximetry Oxygen Delivery Fraction of Inspired Oxygen 02/05/25 13:40 02/05/25 14:00 02/05/25 14:00 Temperature 97.8 F Pulse Rate 77 74 79 Respiratory Rate 18 20 Blood Pressure 100/60 Pulse Oximetry 98 Oxygen Delivery Fraction of Inspired Oxygen 02/05/25 14:00 02/05/25 14:00 02/05/25 14:00 Temperature Pulse Rate 79 79 82 Respiratory Rate 17 18 18 Blood Pressure Pulse Oximetry Oxygen Delivery Fraction of Inspired Oxygen 02/05/25 14:00 02/05/25 14:44 02/05/25 14:45 Temperature Pulse Rate 81 69 72 Respiratory Rate Blood Pressure 105/56 L Pulse Oximetry 98 Oxygen Delivery Mechanical Ventilation Fraction of Inspired Oxygen 30 02/05/25 16:00 02/05/25 16:00 02/05/25 16:00 Temperature 97.0 F L Pulse Rate 78 71 71 Respiratory Rate 16 16 Blood Pressure 109/71 Pulse Oximetry 96 96 Oxygen Delivery Mechanical Ventilation Fraction of Inspired Oxygen 30 02/05/25 16:00 02/05/25 16:00 02/05/25 16:00 Temperature Pulse Rate 78 82 Respiratory Rate 18 18 Blood Pressure Pulse Oximetry Oxygen Delivery Fraction of Inspired Oxygen 30 02/05/25 16:00 02/05/25 16:00 02/05/25 17:58 Temperature Pulse Rate 78 82 86 Respiratory Rate 17 Blood Pressure 109/71 Pulse Oximetry 94 Oxygen Delivery Mechanical Ventilation Fraction of Inspired Oxygen 30 02/05/25 18:00 02/05/25 18:00 02/05/25 20:00 Temperature 96.7 F L Pulse Rate 98 87 80 Respiratory Rate 16 16 Blood Pressure 97/77 L Pulse Oximetry 94 92 Oxygen Delivery Mechanical Ventilation Fraction of Inspired Oxygen 30 02/05/25 20:00 02/05/25 20:00 02/05/25 20:00 Temperature 97.4 F L Pulse Rate 80 77 Respiratory Rate 16 Blood Pressure 109/61 Pulse Oximetry 92 Oxygen Delivery Fraction of Inspired Oxygen 30 02/05/25 20:00 02/05/25 20:00 02/05/25 20:26 Temperature 97.3 F L Pulse Rate 81 86 97 Respiratory Rate 26 H 16 22 H Blood Pressure 116/67 Pulse Oximetry 91 Oxygen Delivery Fraction of Inspired Oxygen 02/05/25 20:28 02/05/25 20:44 02/05/25 21:59 Temperature Pulse Rate 112 H 91 89 Respiratory Rate 22 H Blood Pressure Pulse Oximetry 94 Oxygen Delivery Mechanical Ventilation Fraction of Inspired Oxygen 30 02/05/25 22:00 02/05/25 22:01 02/05/25 22:01 Temperature 98.3 F Pulse Rate 86 89 89 Respiratory Rate 24 H 16 16 Blood Pressure 114/64 Pulse Oximetry 95 Oxygen Delivery Fraction of Inspired Oxygen 02/05/25 22:33 02/06/25 00:00 02/06/25 00:00 Temperature 99.1 F Pulse Rate 103 H 90 90 Respiratory Rate 24 H 16 Blood Pressure 112/78 Pulse Oximetry 95 95 95 Oxygen Delivery Mechanical Ventilation Mechanical Ventilation Fraction of Inspired Oxygen 30 30 02/06/25 00:00 02/06/25 00:00 02/06/25 00:00 Temperature Pulse Rate 90 90 Respiratory Rate 16 Blood Pressure Pulse Oximetry Oxygen Delivery Fraction of Inspired Oxygen 30 02/06/25 02:00 02/06/25 02:00 02/06/25 02:00 Temperature 99.6 F Pulse Rate 81 85 81 Respiratory Rate 26 H 16 Blood Pressure 122/69 Pulse Oximetry 96 Oxygen Delivery Fraction of Inspired Oxygen 02/06/25 02:08 02/06/25 02:09 02/06/25 03:43 Temperature Pulse Rate 78 86 86 Respiratory Rate 16 16 Blood Pressure Pulse Oximetry 98 88 L Oxygen Delivery Mechanical Ventilation Mechanical Ventilation Fraction of Inspired Oxygen 30 30 02/06/25 03:47 02/06/25 03:49 02/06/25 04:00 Temperature Pulse Rate 86 102 H Respiratory Rate 20 Blood Pressure Pulse Oximetry Oxygen Delivery Fraction of Inspired Oxygen 30 02/06/25 05:08 02/06/25 06:00 02/06/25 06:00 Temperature 99.2 F Pulse Rate 85 79 89 Respiratory Rate 26 H Blood Pressure 115/76 Pulse Oximetry 96 98 Oxygen Delivery Mechanical Ventilation Fraction of Inspired Oxygen 30 02/06/25 06:27 02/06/25 06:27 02/06/25 07:50 Temperature Pulse Rate 125 H 125 H 76 Respiratory Rate 20 20 Blood Pressure Pulse Oximetry 98 Oxygen Delivery Mechanical Ventilation Fraction of Inspired Oxygen 30 02/06/25 07:50 02/06/25 07:57 02/06/25 08:00 Temperature 99.5 F Pulse Rate 76 99 Respiratory Rate 16 18 Blood Pressure 124/90 Pulse Oximetry 97 Oxygen Delivery Fraction of Inspired Oxygen 02/06/25 08:00 02/06/25 08:00 02/06/25 08:00 Temperature Pulse Rate 99 99 Respiratory Rate 18 Blood Pressure 124/90 Pulse Oximetry Oxygen Delivery Mechanical Ventilation Fraction of Inspired Oxygen 30 02/06/25 08:00 02/06/25 08:06 02/06/25 09:34 Temperature Pulse Rate 99 96 Respiratory Rate 20 18 Blood Pressure Pulse Oximetry Oxygen Delivery Fraction of Inspired Oxygen 30 Intake/Output Intake/Output: Intake & Output 02/03/25 02/04/25 02/05/25 02/06/25 23:59 23:59 23:59 23:59 Intake Total 3748.8 2745.7 2218.9 1001.8 Output Total 1180 1555 825 725 Balance 2568.8 1190.7 1393.9 276.8 Meds/Results Medications: Active Medications Generic Name Dose Route Start Last Admin Trade Name Freq PRN Reason Stop Dose Admin Acetaminophen 650 mg 01/25/25 20:51 02/01/25 19:04 Acetaminophen 325 Mg Tablet PO 650 mg Q4H PRN Administration Headache Dextrose 12.5 gm 01/25/25 20:46 01/26/25 11:40 Dextrose 50% 25 Gm/50 Ml Syringe IV PUSH 12.5 gm PRN PRN Administration Hypoglycemia Protocol Fentanyl Citrate 25 mcg 01/25/25 20:51 02/02/25 01:12 Fentanyl Citrate Inj (*Crx) 100 Mcg/2 Ml Vial IV PUSH 25 mcg Q4H PRN Administration Pain Rated 6 or Greater Glucagon 1 mg 01/25/25 20:46 Glucagon For Inj 1 Mg Vial IM PRN PRN Hypoglycemia Protocol Glucose 15 gm 01/25/25 20:46 Glucose Oral Gel 15 Gm Of Glucse In 37.5 Gm Tube PO PRN PRN Hypoglycemia Protocol Hydrocortisone Sodium Succinate 50 mg 02/06/25 18:00 Hydrocortisone Sodium Succinate 100 Mg/2 Ml Vial IV PUSH 02/07/25 06:01 Q12H KANDIS Dextrose 1,000 mls @ 100 mls/hr 01/25/25 20:46 Dextrose 5% 1,000 Ml IVPB PRN PRN Hypoglycemia Protocol Meropenem 1 gm in 100 mls @ 200 mls/hr 01/29/25 13:00 02/06/25 05:30 IVPB 200 mls/hr Q8HR KANDIS Administration Doxycycline Hyclate 100 mg in 100 mls @ 100 mls/hr 02/02/25 11:00 02/06/25 08:59 Vibramycin 100 Mg/Ns 100 Ml IVPB 02/06/25 21:59 100 mls/hr Q12HR KANDIS Administration Metronidazole 500 mg in 100 mls @ 100 mls/hr 02/04/25 12:00 02/06/25 06:20 Flagyl 500 Mg/Iso Soln 100 Ml IVPB 100 mls/hr Q6HR KANDIS Administration Dexmedetomidine HCl 400 mcg in 100 mls @ 22.613 mls/hr 02/05/25 11:00 02/06/25 09:34 Precedex 400 Mcg/100 Ml IV CONT 0.9 mcg/kg/hr .Q4H26M KANDIS 22.61 mls/hr Titration Protocol 0.9 MCG/KG/HR Insulin Aspart 4 - 8 units 02/02/25 18:00 02/06/25 06:20 Insulin Aspart (*Bkc) 100 Units/Ml SUB-Q 6 units Q6H KANDIS Administration Protocol Insulin Glargine 10 units 01/29/25 21:00 02/01/25 21:11 Insulin Glargine (*Bkc) 100 Units/Ml SUB-Q 10 units HS KANDIS Administration Insulin Glargine 20 units 02/06/25 07:55 02/06/25 08:58 Insulin Glargine (*Bkc) 100 Units/Ml SUB-Q 20 units DAILY KANDIS Administration Ipratropium [place] 0.5 mg 02/02/25 14:20 02/06/25 07:46 Ipratropium Br 0.02% Inh Soln 0.5 Mg/2.5 Ml Vial INHALATION 0.5 mg Q6HRT KANDIS Administration Lactobacillus Acidophilus 1 pkt 02/03/25 09:00 02/06/25 08:59 Acidophilus Packet 1 Pkt Packet PO 1 pkt QID KANDIS Administration Levalbuterol HCl 0.63 mg 02/02/25 14:20 02/06/25 07:46 Levalbuterol Neb 1.25 Mg/3 Ml INHALATION 0.63 mg Q6HRT KANDIS Administration Midazolam HCl 2 mg 02/02/25 12:51 02/06/25 04:51 Midazolam Hcl (*Crx) 2 Mg/2 Ml Vial IV PUSH 2 mg PRN PRN Administration Sedation Multi-Ingred Cream/Lotion/Oil/Oint 1 applic 02/02/25 21:00 02/06/25 08:59 Mineral Oil/White Petrolatum Ointment EACH EYE 1 applic Q12HR KANDIS Administration Ondansetron HCl 4 mg 01/25/25 20:51 01/31/25 21:23 Ondansetron Inj 4 Mg/2 Ml Vial IV PUSH 4 mg Q6H PRN Administration Nausea And Vomiting Pantoprazole Sodium 40 mg 02/04/25 21:00 02/06/25 08:58 Pantoprazole Sodium Iv 40 Mg Vial IV PUSH 40 mg Q12HR KANDIS Administration Perflutren Lipid Microsphere 0 ml 02/04/25 07:37 Perflutren Lipid Microspheres 1.5 Ml Vial Diluted To 10 Ml Total Volume IV PUSH 02/07/25 07:37 ONCE PRN adequate visualization Protocol Sodium Chloride 10 ml 02/02/25 14:00 02/06/25 08:59 Central Line Flush IV PUSH 10 ml Q8HR KANDIS Administration Sodium Chloride 20 ml 02/02/25 13:47 02/03/25 21:40 Central Line Flush IV PUSH 20 ml PRN PRN Administration after blood draws Radiology Results: ITS Impressions Pelvis CT 01/26/25 14:17 IMPRESSION: 1. No significant change in a bilobed gas and fluid containing abscess in the deep pelvis. Patient canceled the planned percutaneous abscess drainage catheter placement due to discomfort despite attempts at repositioning. Abdomen/Pelvis CT 01/29/25 09:28 Impression: Stable large bilobed multilocular abscess in the pelvis extensively involving the distal sigmoid colon and rectum. Stable wall thickening of the distal sigmoid colon and rectum. Small right pleural effusion with right basilar atelectatic change. Cholelithiasis. Nephrolithiasis bilaterally, as detailed above. Catheter Placement CT 02/02/25 16:48 IMPRESSION: 1. Technically successful CT-guided drainage catheter placement with likely translocation and overwhelming sepsis following initial aspiration with subsequent cardiac and respiratory arrest. 2. 12-14 mL fluid was sent for aerobic and anaerobic cultures. Please see separate CODE BLUE flow sheet for additional details of the CODE BLUE portion of the case. Chest X-Ray 02/06/25 07:17 IMPRESSION: 1. Unchanged consolidation in the left lower lung zone which could represent atelectasis or pneumonia. 2. Small right pleural effusion with right basilar atelectasis versus pneumonia. Labs Labs: Laboratory Results - last 24 hr 02/03/25 02/05/25 02/05/25 08:09 04:20 11:09 WBC RBC Hgb Hct MCV MCH MCHC RDW Plt Count MPV Immature Gran % (Auto) Neut % (Auto) Lymph % (Auto) Rich % (Auto) Eos % (Auto) Baso % (Auto) Lymph # (Auto) Rich # (Auto) Eos # (Auto) Baso # (Auto) Abs Immat Gran (auto) Absolute Neuts (auto) Absolute Nucleated RBC Band Neutrophils % Nucleated RBC % Platelet Estimate Anisocytosis Schistocytes Puncture Site ABG pH ABG pCO2 ABG pO2 ABG PO2/FiO2 Ratio ABG HCO3 ABG O2 Saturation ABG O2 Content ABG Base Excess A-a Gradient Oxyhemoglobin Carboxyhemoglobin Methemoglobin Reduced Hemoglobin Total Hemoglobin O2 Delivery Device O2 Liters/Min Minute Volume Vent Rate Vent Mode FiO2 Tidal Volume PEEP Peak Inspir Pressure Pressure Support Sodium Potassium Chloride Carbon Dioxide Anion Gap BUN Creatinine Estim Creat Clear Calc Estimated GFR Glucose POC Capillary Glucose 257 H Calcium Phosphorus Magnesium Total Bilirubin AST ALT Alkaline Phosphatase Total Protein Albumin Vitamin B12 917.0 Folate 3.6 Crossmatch See Detail 02/05/25 02/05/25 02/05/25 16:19 18:07 23:50 WBC RBC Hgb 8.3 L Hct 26.9 L MCV MCH MCHC RDW Plt Count MPV Immature Gran % (Auto) Neut % (Auto) Lymph % (Auto) Rich % (Auto) Eos % (Auto) Baso % (Auto) Lymph # (Auto) Rich # (Auto) Eos # (Auto) Baso # (Auto) Abs Immat Gran (auto) Absolute Neuts (auto) Absolute Nucleated RBC Band Neutrophils % Nucleated RBC % Platelet Estimate Anisocytosis Schistocytes Puncture Site ABG pH ABG pCO2 ABG pO2 ABG PO2/FiO2 Ratio ABG HCO3 ABG O2 Saturation ABG O2 Content ABG Base Excess A-a Gradient Oxyhemoglobin Carboxyhemoglobin Methemoglobin Reduced Hemoglobin Total Hemoglobin O2 Delivery Device O2 Liters/Min Minute Volume Vent Rate Vent Mode FiO2 Tidal Volume PEEP Peak Inspir Pressure Pressure Support Sodium Potassium Chloride Carbon Dioxide Anion Gap BUN Creatinine Estim Creat Clear Calc Estimated GFR Glucose POC Capillary Glucose 269 H 291 H Calcium Phosphorus Magnesium Total Bilirubin AST ALT Alkaline Phosphatase Total Protein Albumin Vitamin B12 Folate Crossmatch 02/06/25 02/06/25 04:42 04:58 WBC 17.7 H RBC 3.45 L Hgb 8.6 L Hct 28.1 L MCV 81.4 MCH 24.9 L MCHC 30.6 L RDW 17.5 H Plt Count 165 MPV 11.0 H Immature Gran % (Auto) 0.9 H Neut % (Auto) 94.0 H Lymph % (Auto) 2.8 L Rich % (Auto) 2.1 L Eos % (Auto) 0.0 Baso % (Auto) 0.2 Lymph # (Auto) 0.49 L Rich # (Auto) 0.4 Eos # (Auto) 0.0 Baso # (Auto) 0.0 Abs Immat Gran (auto) 0.16 H Absolute Neuts (auto) 16.6 H Absolute Nucleated RBC 0.000 Band Neutrophils % Not Reportable Nucleated RBC % 0.0 Platelet Estimate Adequate Anisocytosis 1+ Schistocytes Rare Puncture Site Right radial ABG pH 7.489 H ABG pCO2 38.8 ABG pO2 76.4 L ABG PO2/FiO2 Ratio 2.55 ABG HCO3 28.8 H ABG O2 Saturation 96.2 ABG O2 Content 13.0 L ABG Base Excess 5.2 A-a Gradient 91.9 Oxyhemoglobin 94.0 Carboxyhemoglobin 0.8 Methemoglobin 0.3 Reduced Hemoglobin 4.9 Total Hemoglobin 9.8 L O2 Delivery Device Ventilator O2 Liters/Min Not Reportable Minute Volume Not Reportable Vent Rate 16 Vent Mode Cmv FiO2 30 Tidal Volume 420 PEEP 8 Peak Inspir Pressure Not Reportable Pressure Support Not Reportable Sodium 141 Potassium 4.0 Chloride 103 Carbon Dioxide 32 H Anion Gap 6 BUN 46 H Creatinine 1.01 H Estim Creat Clear Calc 52 Estimated GFR 54 L Glucose 331 H POC Capillary Glucose Calcium 8.2 L Phosphorus 3.5 Magnesium 2.3 Total Bilirubin 0.8 AST 16 ALT 16 Alkaline Phosphatase 110 Total Protein 6.0 L Albumin 2.5 L Vitamin B12 Folate Crossmatch Quality VTE Prophylaxis VTE prophylaxis: pharmacologic ordered
[2025-02-06] MEDS: dexmedeTOMIDine 400 MCG/100 ML 400 MCG/100 ML BAG 22.61 MCG IV CONT (11:02)
[2025-02-06 11:23] LABS: Glucose Point of Care 380 mg/dl (65-105)
--- NOTE | 2025-02-06 11:28 | WPDGIPROGNO ---
Progress Note: A&P Assessment and Plan (1) Intra-abdominal abscess: Code(s): K65.1 - Peritoneal abscess Status: Acute Assessment and Plan: continue drain and abx wbc trending down off pressors will follow as needed (2) Heme positive stool: Code(s): R19.5 - Other fecal abnormalities Status: Acute Assessment and Plan: no overt gib no need of further evaluation now probably after fully recovered we could talk to patient/family if willing to have colonoscopy but most likely as outpatient (right now with pelvic abscess and this is managed by surgery) (3) Anemia: Qualifiers: Anemia type: other cause Other causes of anemia: chronic disease, other Qualified Code(s): D63.8 - Anemia in other chronic diseases classified elsewhere Code(s): D64.9 - Anemia, unspecified Status: Acute Assessment and Plan: probably multifactorial pelvic abscess monitor for signs of bleeding keep hgb>7 (4) Sepsis: Qualifiers: Sepsis type: sepsis due to unspecified organism Sepsis acute organ dysfunction status: without acute organ dysfunction Qualified Code(s): A41.9 - Sepsis, unspecified organism Code(s): A41.9 - Sepsis, unspecified organism Status: Acute Assessment and Plan: improving, managed by shoe lacer and surgery (5) Leukocytosis: Qualifiers: Leukocytosis type: unspecified Qualified Code(s): D72.829 - Elevated white blood cell count, unspecified Code(s): D72.829 - Elevated white blood cell count, unspecified Status: Acute (6) Cardiac arrest: Code(s): I46.9 - Cardiac arrest, cause unspecified Status: Acute (7) Acute respiratory failure: Qualifiers: Respiratory failure complication: hypoxia Qualified Code(s): J96.01 - Acute respiratory failure with hypoxia Code(s): J96.00 - Acute respiratory failure, unspecified whether with hypoxia or hypercapnia Status: Acute Subjective Date/time seen: 02/06/25 11:28 Interval history: no changes no signs of gib tolerating tube feeding by OGT off pressors Review of Systems Review of Systems: All systems reviewed & are unremarkable except as noted in HPI and below Exam Narrative: General: Obese female currently in no acute distress HEENT:? Pupils equal and reactive, sclera is clear, ETT in place Neck:? Supple Respiratory:? Coarse breath sounds bilaterally, decreased at bases, no wheezing, adequate air entry Cardiac:? S1-S2 normal, regular rate and rhythm Abdomen:? Soft, nontender, obese, hypoactive bowel sounds, left lower quadrant drain in place with purulent drainage Extremities:? Trace edema, palpable pedal pulse Neuro:? Patient remains on Precedex infusion, eyes are open, awake, follows simple commands in all extremities Skin:? No skin lesions noted Psych:? Unable to assess at this time Objective Data Vital Signs Vital Signs: Vital Signs - 24 hr 02/05/25 11:35 02/05/25 11:43 02/05/25 11:44 Temperature 97.6 F Pulse Rate 77 87 83 Respiratory Rate 16 16 18 Blood Pressure 129/80 Pulse Oximetry 98 Oxygen Delivery Fraction of Inspired Oxygen 02/05/25 12:00 02/05/25 12:00 02/05/25 12:00 Temperature 97.7 F Pulse Rate 85 82 82 Respiratory Rate 16 16 Blood Pressure 141/87 H Pulse Oximetry 98 98 Oxygen Delivery Mechanical Ventilation Fraction of Inspired Oxygen 30 02/05/25 12:00 02/05/25 12:00 02/05/25 12:00 Temperature Pulse Rate 78 79 Respiratory Rate 18 17 Blood Pressure Pulse Oximetry Oxygen Delivery Fraction of Inspired Oxygen 30 02/05/25 12:00 02/05/25 12:00 02/05/25 13:10 Temperature Pulse Rate 79 78 74 Respiratory Rate 17 16 Blood Pressure 141/87 H Pulse Oximetry Oxygen Delivery Fraction of Inspired Oxygen 02/05/25 13:11 02/05/25 13:11 02/05/25 13:40 Temperature Pulse Rate 77 89 77 Respiratory Rate 16 18 Blood Pressure 110/64 Pulse Oximetry Oxygen Delivery Fraction of Inspired Oxygen 02/05/25 14:00 02/05/25 14:00 02/05/25 14:00 Temperature 97.8 F Pulse Rate 74 79 79 Respiratory Rate 20 17 Blood Pressure 100/60 Pulse Oximetry 98 Oxygen Delivery Fraction of Inspired Oxygen 02/05/25 14:00 02/05/25 14:00 02/05/25 14:00 Temperature Pulse Rate 79 82 81 Respiratory Rate 18 18 Blood Pressure 105/56 L Pulse Oximetry Oxygen Delivery Fraction of Inspired Oxygen 02/05/25 14:44 02/05/25 14:45 02/05/25 16:00 Temperature 97.0 F L Pulse Rate 69 72 78 Respiratory Rate 16 Blood Pressure 109/71 Pulse Oximetry 98 96 Oxygen Delivery Mechanical Ventilation Fraction of Inspired Oxygen 30 02/05/25 16:00 02/05/25 16:00 02/05/25 16:00 Temperature Pulse Rate 71 71 Respiratory Rate 16 Blood Pressure Pulse Oximetry 96 Oxygen Delivery Mechanical Ventilation Fraction of Inspired Oxygen 30 30 02/05/25 16:00 02/05/25 16:00 02/05/25 16:00 Temperature Pulse Rate 78 82 78 Respiratory Rate 18 18 17 Blood Pressure Pulse Oximetry Oxygen Delivery Fraction of Inspired Oxygen 02/05/25 16:00 02/05/25 17:58 02/05/25 18:00 Temperature 96.7 F L Pulse Rate 82 86 98 Respiratory Rate 16 Blood Pressure 109/71 97/77 L Pulse Oximetry 94 94 Oxygen Delivery Mechanical Ventilation Fraction of Inspired Oxygen 30 02/05/25 18:00 02/05/25 20:00 02/05/25 20:00 Temperature Pulse Rate 87 80 80 Respiratory Rate 16 Blood Pressure Pulse Oximetry 92 Oxygen Delivery Mechanical Ventilation Fraction of Inspired Oxygen 30 02/05/25 20:00 02/05/25 20:00 02/05/25 20:00 Temperature 97.4 F L 97.3 F L Pulse Rate 77 81 Respiratory Rate 16 26 H Blood Pressure 109/61 116/67 Pulse Oximetry 92 91 Oxygen Delivery Fraction of Inspired Oxygen 30 02/05/25 20:00 02/05/25 20:26 02/05/25 20:28 Temperature Pulse Rate 86 97 112 H Respiratory Rate 16 22 H Blood Pressure Pulse Oximetry 94 Oxygen Delivery Mechanical Ventilation Fraction of Inspired Oxygen 30 02/05/25 20:44 02/05/25 21:59 02/05/25 22:00 Temperature 98.3 F Pulse Rate 91 89 86 Respiratory Rate 22 H 24 H Blood Pressure 114/64 Pulse Oximetry 95 Oxygen Delivery Fraction of Inspired Oxygen 02/05/25 22:01 02/05/25 22:01 02/05/25 22:33 Temperature Pulse Rate 89 89 103 H Respiratory Rate 16 16 Blood Pressure Pulse Oximetry 95 Oxygen Delivery Mechanical Ventilation Fraction of Inspired Oxygen 30 02/06/25 00:00 02/06/25 00:00 02/06/25 00:00 Temperature 99.1 F Pulse Rate 90 90 90 Respiratory Rate 24 H 16 Blood Pressure 112/78 Pulse Oximetry 95 95 Oxygen Delivery Mechanical Ventilation Fraction of Inspired Oxygen 30 02/06/25 00:00 02/06/25 00:00 02/06/25 02:00 Temperature 99.6 F Pulse Rate 90 81 Respiratory Rate 16 26 H Blood Pressure 122/69 Pulse Oximetry 96 Oxygen Delivery Fraction of Inspired Oxygen 30 02/06/25 02:00 02/06/25 02:00 02/06/25 02:08 Temperature Pulse Rate 85 81 78 Respiratory Rate 16 16 Blood Pressure Pulse Oximetry Oxygen Delivery Fraction of Inspired Oxygen 02/06/25 02:09 02/06/25 03:43 02/06/25 03:47 Temperature Pulse Rate 86 86 86 Respiratory Rate 16 Blood Pressure Pulse Oximetry 98 88 L Oxygen Delivery Mechanical Ventilation Mechanical Ventilation Fraction of Inspired Oxygen 30 30 02/06/25 03:49 02/06/25 04:00 02/06/25 05:08 Temperature Pulse Rate 102 H 85 Respiratory Rate 20 Blood Pressure Pulse Oximetry 96 Oxygen Delivery Mechanical Ventilation Fraction of Inspired Oxygen 30 30 02/06/25 06:00 02/06/25 06:00 02/06/25 06:27 Temperature 99.2 F Pulse Rate 79 89 125 H Respiratory Rate 26 H 20 Blood Pressure 115/76 Pulse Oximetry 98 Oxygen Delivery Fraction of Inspired Oxygen 02/06/25 06:27 02/06/25 07:50 02/06/25 07:50 Temperature Pulse Rate 125 H 76 76 Respiratory Rate 20 16 Blood Pressure Pulse Oximetry 98 Oxygen Delivery Mechanical Ventilation Fraction of Inspired Oxygen 30 02/06/25 07:57 02/06/25 08:00 02/06/25 08:00 Temperature 99.5 F Pulse Rate 99 99 Respiratory Rate 18 18 Blood Pressure 124/90 Pulse Oximetry 97 Oxygen Delivery Fraction of Inspired Oxygen 02/06/25 08:00 02/06/25 08:00 02/06/25 08:00 Temperature Pulse Rate 99 Respiratory Rate Blood Pressure 124/90 Pulse Oximetry Oxygen Delivery Mechanical Ventilation Fraction of Inspired Oxygen 30 30 02/06/25 08:06 02/06/25 09:34 02/06/25 10:00 Temperature 99.6 F Pulse Rate 99 96 90 Respiratory Rate 20 18 16 Blood Pressure 139/94 H Pulse Oximetry 98 Oxygen Delivery Fraction of Inspired Oxygen 02/06/25 11:02 02/06/25 11:02 Temperature Pulse Rate 92 92 Respiratory Rate 21 H 21 H Blood Pressure Pulse Oximetry Oxygen Delivery Fraction of Inspired Oxygen Intake/Output Intake/Output: Intake & Output 02/03/25 02/04/25 02/05/25 02/06/25 23:59 23:59 23:59 23:59 Intake Total 3748.8 2745.7 2218.9 1135.0 Output Total 1180 1555 825 725 Balance 2568.8 1190.7 1393.9 410.0 Meds/Results Medications: Active Medications Generic Name Dose Route Start Last Admin Trade Name Freq PRN Reason Stop Dose Admin Acetaminophen 650 mg 01/25/25 20:51 02/01/25 19:04 Acetaminophen 325 Mg Tablet PO 650 mg Q4H PRN Administration Headache Dextrose 12.5 gm 01/25/25 20:46 01/26/25 11:40 Dextrose 50% 25 Gm/50 Ml Syringe IV PUSH 12.5 gm PRN PRN Administration Hypoglycemia Protocol Fentanyl Citrate 25 mcg 01/25/25 20:51 02/02/25 01:12 Fentanyl Citrate Inj (*Crx) 100 Mcg/2 Ml Vial IV PUSH 25 mcg Q4H PRN Administration Pain Rated 6 or Greater Glucagon 1 mg 01/25/25 20:46 Glucagon For Inj 1 Mg Vial IM PRN PRN Hypoglycemia Protocol Glucose 15 gm 01/25/25 20:46 Glucose Oral Gel 15 Gm Of Glucse In 37.5 Gm Tube PO PRN PRN Hypoglycemia Protocol Hydralazine HCl 10 mg 02/06/25 09:58 Hydralazine Hcl 20 Mg/Ml Vial IV PUSH Q4H PRN Blood Pressure - High Hydrocortisone Sodium Succinate 50 mg 02/06/25 18:00 Hydrocortisone Sodium Succinate 100 Mg/2 Ml Vial IV PUSH 02/07/25 06:01 Q12H KANDIS Dextrose 1,000 mls @ 100 mls/hr 01/25/25 20:46 Dextrose 5% 1,000 Ml IVPB PRN PRN Hypoglycemia Protocol Meropenem 1 gm in 100 mls @ 200 mls/hr 01/29/25 13:00 02/06/25 05:30 IVPB 200 mls/hr Q8HR KANDIS Administration Doxycycline Hyclate 100 mg in 100 mls @ 100 mls/hr 02/02/25 11:00 02/06/25 10:00 Vibramycin 100 Mg/Ns 100 Ml IVPB 02/06/25 21:59 Infused Q12HR KANDIS Infusion Metronidazole 500 mg in 100 mls @ 100 mls/hr 02/04/25 12:00 02/06/25 06:20 Flagyl 500 Mg/Iso Soln 100 Ml IVPB 100 mls/hr Q6HR KANDIS Administration Dexmedetomidine HCl 400 mcg in 100 mls @ 22.613 mls/hr 02/05/25 11:00 02/06/25 11:02 Precedex 400 Mcg/100 Ml IV CONT 0.9 mcg/kg/hr .Q4H26M KANDIS 22.61 mls/hr Administration Protocol 0.9 MCG/KG/HR Insulin Aspart 4 - 8 units 02/02/25 18:00 02/06/25 06:20 Insulin Aspart (*Bkc) 100 Units/Ml SUB-Q 6 units Q6H KANDIS Administration Protocol Insulin Glargine 10 units 01/29/25 21:00 02/01/25 21:11 Insulin Glargine (*Bkc) 100 Units/Ml SUB-Q 10 units HS KANDIS Administration Insulin Glargine 20 units 02/06/25 07:55 02/06/25 08:58 Insulin Glargine (*Bkc) 100 Units/Ml SUB-Q 20 units DAILY KANDIS Administration Ipratropium [place] 0.5 mg 02/02/25 14:20 02/06/25 07:46 Ipratropium Br 0.02% Inh Soln 0.5 Mg/2.5 Ml Vial INHALATION 0.5 mg Q6HRT KANDIS Administration Lactobacillus Acidophilus 1 pkt 02/03/25 09:00 02/06/25 08:59 Acidophilus Packet 1 Pkt Packet PO 1 pkt QID KANDIS Administration Levalbuterol HCl 0.63 mg 02/02/25 14:20 02/06/25 07:46 Levalbuterol Neb 1.25 Mg/3 Ml INHALATION 0.63 mg Q6HRT KANDIS Administration Midazolam HCl 2 mg 02/02/25 12:51 02/06/25 04:51 Midazolam Hcl (*Crx) 2 Mg/2 Ml Vial IV PUSH 2 mg PRN PRN Administration Sedation Multi-Ingred Cream/Lotion/Oil/Oint 1 applic 02/02/25 21:00 02/06/25 08:59 Mineral Oil/White Petrolatum Ointment EACH EYE 1 applic Q12HR KANDIS Administration Ondansetron HCl 4 mg 01/25/25 20:51 01/31/25 21:23 Ondansetron Inj 4 Mg/2 Ml Vial IV PUSH 4 mg Q6H PRN Administration Nausea And Vomiting Pantoprazole Sodium 40 mg 02/04/25 21:00 02/06/25 08:58 Pantoprazole Sodium Iv 40 Mg Vial IV PUSH 40 mg Q12HR KANDIS Administration Perflutren Lipid Microsphere 0 ml 02/04/25 07:37 Perflutren Lipid Microspheres 1.5 Ml Vial Diluted To 10 Ml Total Volume IV PUSH 02/07/25 07:37 ONCE PRN adequate visualization Protocol Sodium Chloride 10 ml 02/02/25 14:00 02/06/25 08:59 Central Line Flush IV PUSH 10 ml Q8HR KANDIS Administration Sodium Chloride 20 ml 02/02/25 13:47 02/03/25 21:40 Central Line Flush IV PUSH 20 ml PRN PRN Administration after blood draws Radiology Results: ITS Impressions Pelvis CT 01/26/25 14:17 IMPRESSION: 1. No significant change in a bilobed gas and fluid containing abscess in the deep pelvis. Patient canceled the planned percutaneous abscess drainage catheter placement due to discomfort despite attempts at repositioning. Abdomen/Pelvis CT 01/29/25 09:28 Impression: Stable large bilobed multilocular abscess in the pelvis extensively involving the distal sigmoid colon and rectum. Stable wall thickening of the distal sigmoid colon and rectum. Small right pleural effusion with right basilar atelectatic change. Cholelithiasis. Nephrolithiasis bilaterally, as detailed above. Catheter Placement CT 02/02/25 16:48 IMPRESSION: 1. Technically successful CT-guided drainage catheter placement with likely translocation and overwhelming sepsis following initial aspiration with subsequent cardiac and respiratory arrest. 2. 12-14 mL fluid was sent for aerobic and anaerobic cultures. Please see separate CODE BLUE flow sheet for additional details of the CODE BLUE portion of the case. Chest X-Ray 02/06/25 07:17 IMPRESSION: 1. Unchanged consolidation in the left lower lung zone which could represent atelectasis or pneumonia. 2. Small right pleural effusion with right basilar atelectasis versus pneumonia. Labs Labs: Laboratory Results - last 24 hr 02/03/25 02/05/25 02/05/25 08:09 04:20 16:19 WBC RBC Hgb 8.3 L Hct 26.9 L MCV MCH MCHC RDW Plt Count MPV Immature Gran % (Auto) Neut % (Auto) Lymph % (Auto) [place] % (Auto) Eos % (Auto) Baso % (Auto) Lymph # (Auto) [place] # (Auto) Eos # (Auto) Baso # (Auto) Abs Immat Gran (auto) Absolute Neuts (auto) Absolute Nucleated RBC Band Neutrophils % Nucleated RBC % Platelet Estimate Anisocytosis Schistocytes Puncture Site ABG pH ABG pCO2 ABG pO2 ABG PO2/FiO2 Ratio ABG HCO3 ABG O2 Saturation ABG O2 Content ABG Base Excess A-a Gradient Oxyhemoglobin Carboxyhemoglobin Methemoglobin Reduced Hemoglobin Total Hemoglobin O2 Delivery Device O2 Liters/Min Minute Volume Vent Rate Vent Mode FiO2 Tidal Volume PEEP Peak Inspir Pressure Pressure Support Sodium Potassium Chloride Carbon Dioxide Anion Gap BUN Creatinine Estim Creat Clear Calc Estimated GFR Glucose POC Capillary Glucose Calcium Phosphorus Magnesium Total Bilirubin AST ALT Alkaline Phosphatase Total Protein Albumin Vitamin B12 917.0 Folate 3.6 Crossmatch See Detail 02/05/25 02/05/25 02/06/25 18:07 23:50 04:42 WBC 17.7 H RBC 3.45 L Hgb 8.6 L Hct 28.1 L MCV 81.4 MCH 24.9 L MCHC 30.6 L RDW 17.5 H Plt Count 165 MPV 11.0 H Immature Gran % (Auto) 0.9 H Neut % (Auto) 94.0 H Lymph % (Auto) 2.8 L [place] % (Auto) 2.1 L Eos % (Auto) 0.0 Baso % (Auto) 0.2 Lymph # (Auto) 0.49 L [place] # (Auto) 0.4 Eos # (Auto) 0.0 Baso # (Auto) 0.0 Abs Immat Gran (auto) 0.16 H Absolute Neuts (auto) 16.6 H Absolute Nucleated RBC 0.000 Band Neutrophils % Not Reportable Nucleated RBC % 0.0 Platelet Estimate Adequate Anisocytosis 1+ Schistocytes Rare Puncture Site ABG pH ABG pCO2 ABG pO2 ABG PO2/FiO2 Ratio ABG HCO3 ABG O2 Saturation ABG O2 Content ABG Base Excess A-a Gradient Oxyhemoglobin Carboxyhemoglobin Methemoglobin Reduced Hemoglobin Total Hemoglobin O2 Delivery Device O2 Liters/Min Minute Volume Vent Rate Vent Mode FiO2 Tidal Volume PEEP Peak Inspir Pressure Pressure Support Sodium 141 Potassium 4.0 Chloride 103 Carbon Dioxide 32 H Anion Gap 6 BUN 46 H Creatinine 1.01 H Estim Creat Clear Calc 52 Estimated GFR 54 L Glucose 331 H POC Capillary Glucose 269 H 291 H Calcium 8.2 L Phosphorus 3.5 Magnesium 2.3 Total Bilirubin 0.8 AST 16 ALT 16 Alkaline Phosphatase 110 Total Protein 6.0 L Albumin 2.5 L Vitamin B12 Folate Crossmatch 02/06/25 02/06/25 04:58 11:16 WBC RBC Hgb Hct MCV MCH MCHC RDW Plt Count MPV Immature Gran % (Auto) Neut % (Auto) Lymph % (Auto) [place] % (Auto) Eos % (Auto) Baso % (Auto) Lymph # (Auto) [place] # (Auto) Eos # (Auto) Baso # (Auto) Abs Immat Gran (auto) Absolute Neuts (auto) Absolute Nucleated RBC Band Neutrophils % Nucleated RBC % Platelet Estimate Anisocytosis Schistocytes Puncture Site Right radial ABG pH 7.489 H ABG pCO2 38.8 ABG pO2 76.4 L ABG PO2/FiO2 Ratio 2.55 ABG HCO3 28.8 H ABG O2 Saturation 96.2 ABG O2 Content 13.0 L ABG Base Excess 5.2 A-a Gradient 91.9 Oxyhemoglobin 94.0 Carboxyhemoglobin 0.8 Methemoglobin 0.3 Reduced Hemoglobin 4.9 Total Hemoglobin 9.8 L O2 Delivery Device Ventilator O2 Liters/Min Not Reportable Minute Volume Not Reportable Vent Rate 16 Vent Mode Cmv FiO2 30 Tidal Volume 420 PEEP 8 Peak Inspir Pressure Not Reportable Pressure Support Not Reportable Sodium Potassium Chloride Carbon Dioxide Anion Gap BUN Creatinine Estim Creat Clear Calc Estimated GFR Glucose POC Capillary Glucose 380 H Calcium Phosphorus Magnesium Total Bilirubin AST ALT Alkaline Phosphatase Total Protein Albumin Vitamin B12 Folate Crossmatch
[2025-02-06] MEDS: dexmedeTOMIDine 400 MCG/100 ML 400 MCG/100 ML BAG 20.1 MCG IV CONT (14:58)
[2025-02-06] MEDS: HYDROCORTISONE SODIUM SUCCINATE 100 MG/2 ML VIAL 50 MG IV PUSH (17:10)
[2025-02-06] MEDS: MORPHINE SULFATE (*CRX) 2 MG/ML INJ 1 MG IV PUSH (17:10)
--- NOTE | 2025-02-06 17:41 | PM.IMPN ---
Progress Note: A&P Assessment and Plan (1) Cardiac arrest: Code(s): I46.9 - Cardiac arrest, cause unspecified Status: Acute Assessment and Plan: Patient had a cardiac arrest after placement of a percutaneous drain in the pelvic abscess. Could be related to vasovagal, translocation of bacteria, hypoxia as patient was laying flat, hypovolemia, acidosis -successful ROSC x2, intubated in the CT scan suite by ER physician -patient did follow commands post code a continue, so not a candidate for targeted temperature management -will continue to treat underlying cause (2) Septic shock: Code(s): A41.9 - Sepsis, unspecified organism; R65.21 - Severe sepsis with septic shock Status: Acute Assessment and Plan: 02/01:In the ICU patient dropped her blood pressures -patient has been adequately fluid-resuscitated with IV fluids and albumin -01/25: Blood cultures negative x2 -02/02: repeat blood cultures -growing E coli (pansensitive) and Clostridium ramosum -02/02: Abscess fluid culture growing E coli and Bacteroides fragilis 02/03: WBC count up to 64, could be related to septic shock, infection, leukomoid reaction, steroids. Will continue to monitor -WBC count is trending down, patient is afebrile, continue to monitor --continue meropenem, Flagyl 02/04: Discontinue vancomycin -continue doxycycline for 5 days - weaning stress dose steroid -off all pressors (patient was on Levophed, Bobo-Synephrine and vasopressin) -WBC count trending down 02/04: Repeat blood cultures growing gram variable bacilli and Gram-negative bacilli (3) Acute respiratory failure: Qualifiers: Respiratory failure complication: hypoxia Qualified Code(s): J96.01 - Acute respiratory failure with hypoxia Code(s): J96.00 - Acute respiratory failure, unspecified whether with hypoxia or hypercapnia Status: Acute Assessment and Plan: Acute respiratory failure likely related to cardiac arrest possible from septic shock, infection, hypovolemia, translocation of bacteria, acidosis, hypoxia -patient intubated in the CT scan suite by ER physician -currently on CMV mode of ventilation, peep of 8, will wean FiO2 to maintain O2 sats greater than 92% -chest x-ray and ABGs reviewed -ventilator adjusted -continue Xopenex and Atrovent nebulizer -patient has been on Precedex infusion, awake, follows simple commands -patient is 10 L positive fluid balance since admission, will give Lasix -place patient on pressure support ventilation, will evaluate for extubation (4) Intra-abdominal abscess: Code(s): K65.1 - Peritoneal abscess Status: Acute Assessment and Plan: Intra-abdominal abscess, status post percutaneous IR drain placement on 02/01/2025 -draining purulent material, cultures as above -surgery is following the patient -continue antibiotics as above (5) Diabetes 1.5, managed as type 2: Code(s): E13.9 - Other specified diabetes mellitus without complications Status: Acute Assessment and Plan: Continue Accu-Cheks and sliding scale insulin -tolerating trickle tube feeds, hyperglycemic, -increase Lantus again today (6) Hypertension: Qualifiers: Hypertension type: unspecified Qualified Code(s): I10 - Essential (primary) hypertension Code(s): I10 - Essential (primary) hypertension Status: Acute Assessment and Plan: Patient just came off pressors, continue to hold antihypertensives for now -will add p.r.n. hydralazine (7) Anemia: Qualifiers: Anemia type: other cause Other causes of anemia: chronic disease, other Qualified Code(s): D63.8 - Anemia in other chronic diseases classified elsewhere Code(s): D64.9 - Anemia, unspecified Status: Acute Assessment and Plan: 02/03: Hemoglobin dropped to 6.3. -will transfuse 1 unit of packed RBC -hemoglobin stable -02/05: hemoglobin dropped to 7.0 -status post 1 unit of packed RBC -iron panel reflective of iron deficiency anemia and/or anemia of chronic disease -folic acid and vitamin B12 levels within normal limits -stool occult was positive -appreciate GI evaluation and recommendations Plan DVT prophylaxis: Hold Lovenox due to anemia, SCD orders in place Stress ulcer prophylaxis: Protonix IV q.12 hours Nutrition: Tolerating tube feeds Code Status: Full code Subjective Date/time seen: 02/06/25 17:41 Interval history: Intubated at bedside at the time of this encounter Review of Systems Review of Systems: All systems reviewed & are unremarkable except as noted in HPI and below ROS unobtainable: Yes unobtainable due to endotracheal tube, unobtainable due to medical condition and unobtainable due to mental status Exam Narrative: General: Intubated HEENT:? Pupils equal and reactive, sclera is clear, ETT in place Neck:? Supple Respiratory:? Coarse breath sounds bilaterally, decreased at bases, no wheezing, adequate air entry Cardiac:? S1-S2 normal, regular rate and rhythm Abdomen:? Soft, nontender, obese, hypoactive bowel sounds, left lower quadrant drain in place with purulent drainage Extremities:? Trace edema, palpable pedal pulse Neuro:? Patient remains on Precedex infusion, eyes are open, awake, follows simple commands in all extremities Skin:? No skin lesions noted Const: General: comfortable and no acute distress Other: , female, elderly, disheveled. Nontoxic appearance. HENMT: Face/Nose/Sinus: Normal nares present Mouth: Yes moist mucous membranes Eyes: General: appearance normal, both eyes and all related structures Sclera: sclerae normal Pupils: Equal, round and reactive pupils present EOM: EOMs intact bilaterally Resp: Effort & Inspection: normal respiratory effort Auscultation: clear to auscultation bilaterally Cardio: Rate: regular rate Rhythm: regular rhythm Other: S1-S2 present without murmur, rub, ectopy GI: Other: tender in the lower quadrants. hyperactive bowel sounds in the upper quadrants, normoactive in the lower. Nondistended, soft. Skin: General skin exam: normal color and no rashes or lesions noted Wounds: no wounds Neuro: Cranial nerves: Yes Equal, round and reactive pupils present Speech: normal speech Motor exam (neuro): 5/5 motor strength present throughout Sensory Exam: normal sensation Other: A&O x4 Extrem: General: normal to inspection Psych: Mental Status: mental status grossly normal Affect: normal affect Other: Malodorous, disheveled. Fair insight and judgment, pleasant. Objective Data Vital Signs Vital Signs: Vital Signs - 24 hr 02/05/25 17:58 02/05/25 18:00 02/05/25 18:00 Temperature 96.7 F L Pulse Rate 86 98 87 Respiratory Rate 16 Blood Pressure 97/77 L Pulse Oximetry 94 94 Oxygen Delivery Mechanical Ventilation Oxygen Flow Rate Fraction of Inspired Oxygen 30 02/05/25 20:00 02/05/25 20:00 02/05/25 20:00 Temperature Pulse Rate 80 80 Respiratory Rate 16 Blood Pressure Pulse Oximetry 92 Oxygen Delivery Mechanical Ventilation Oxygen Flow Rate Fraction of Inspired Oxygen 30 30 02/05/25 20:00 02/05/25 20:00 02/05/25 20:00 Temperature 97.4 F L 97.3 F L Pulse Rate 77 81 86 Respiratory Rate 16 26 H 16 Blood Pressure 109/61 116/67 Pulse Oximetry 92 91 Oxygen Delivery Oxygen Flow Rate Fraction of Inspired Oxygen 02/05/25 20:26 02/05/25 20:28 02/05/25 20:44 Temperature Pulse Rate 97 112 H 91 Respiratory Rate 22 H 22 H Blood Pressure Pulse Oximetry 94 Oxygen Delivery Mechanical Ventilation Oxygen Flow Rate Fraction of Inspired Oxygen 30 02/05/25 21:59 02/05/25 22:00 02/05/25 22:01 Temperature 98.3 F Pulse Rate 89 86 89 Respiratory Rate 24 H 16 Blood Pressure 114/64 Pulse Oximetry 95 Oxygen Delivery Oxygen Flow Rate Fraction of Inspired Oxygen 02/05/25 22:01 02/05/25 22:33 02/06/25 00:00 Temperature 99.1 F Pulse Rate 89 103 H 90 Respiratory Rate 16 24 H Blood Pressure 112/78 Pulse Oximetry 95 95 Oxygen Delivery Mechanical Ventilation Oxygen Flow Rate Fraction of Inspired Oxygen 30 02/06/25 00:00 02/06/25 00:00 02/06/25 00:00 Temperature Pulse Rate 90 90 Respiratory Rate 16 Blood Pressure Pulse Oximetry 95 Oxygen Delivery Mechanical Ventilation Oxygen Flow Rate Fraction of Inspired Oxygen 30 30 02/06/25 00:00 02/06/25 02:00 02/06/25 02:00 Temperature 99.6 F Pulse Rate 90 81 85 Respiratory Rate 16 26 H Blood Pressure 122/69 Pulse Oximetry 96 Oxygen Delivery Oxygen Flow Rate Fraction of Inspired Oxygen 02/06/25 02:00 02/06/25 02:08 02/06/25 02:09 Temperature Pulse Rate 81 78 86 Respiratory Rate 16 16 Blood Pressure Pulse Oximetry 98 Oxygen Delivery Mechanical Ventilation Oxygen Flow Rate Fraction of Inspired Oxygen 30 02/06/25 03:43 02/06/25 03:47 02/06/25 03:49 Temperature Pulse Rate 86 86 Respiratory Rate 16 Blood Pressure Pulse Oximetry 88 L Oxygen Delivery Mechanical Ventilation Oxygen Flow Rate Fraction of Inspired Oxygen 30 30 02/06/25 04:00 02/06/25 05:08 02/06/25 06:00 Temperature 99.2 F Pulse Rate 102 H 85 79 Respiratory Rate 20 26 H Blood Pressure 115/76 Pulse Oximetry 96 98 Oxygen Delivery Mechanical Ventilation Oxygen Flow Rate Fraction of Inspired Oxygen 30 02/06/25 06:00 02/06/25 06:27 02/06/25 06:27 Temperature Pulse Rate 89 125 H 125 H Respiratory Rate 20 20 Blood Pressure Pulse Oximetry Oxygen Delivery Oxygen Flow Rate Fraction of Inspired Oxygen 02/06/25 07:50 02/06/25 07:50 02/06/25 07:57 Temperature 99.5 F Pulse Rate 76 76 99 Respiratory Rate 16 18 Blood Pressure Pulse Oximetry 98 97 Oxygen Delivery Mechanical Ventilation Oxygen Flow Rate Fraction of Inspired Oxygen 30 02/06/25 08:00 02/06/25 08:00 02/06/25 08:00 Temperature Pulse Rate 99 99 Respiratory Rate 18 Blood Pressure 124/90 124/90 Pulse Oximetry Oxygen Delivery Oxygen Flow Rate Fraction of Inspired Oxygen 02/06/25 08:00 02/06/25 08:00 02/06/25 08:00 Temperature Pulse Rate 93 Respiratory Rate Blood Pressure Pulse Oximetry Oxygen Delivery Mechanical Ventilation Oxygen Flow Rate Fraction of Inspired Oxygen 30 30 02/06/25 08:06 02/06/25 09:34 02/06/25 10:00 Temperature 99.6 F Pulse Rate 99 96 90 Respiratory Rate 20 18 16 Blood Pressure 139/94 H Pulse Oximetry 98 Oxygen Delivery Oxygen Flow Rate Fraction of Inspired Oxygen 02/06/25 10:00 02/06/25 10:28 02/06/25 11:02 Temperature Pulse Rate 77 80 92 Respiratory Rate 21 H Blood Pressure Pulse Oximetry 97 Oxygen Delivery Mechanical Ventilation Oxygen Flow Rate Fraction of Inspired Oxygen 30 02/06/25 11:02 02/06/25 12:00 02/06/25 12:00 Temperature 99.3 F Pulse Rate 92 100 93 Respiratory Rate 21 H 23 H 16 Blood Pressure 148/77 H Pulse Oximetry 96 Oxygen Delivery Oxygen Flow Rate Fraction of Inspired Oxygen 02/06/25 12:00 02/06/25 12:00 02/06/25 12:00 Temperature Pulse Rate 87 Respiratory Rate Blood Pressure Pulse Oximetry Oxygen Delivery Mechanical Ventilation Oxygen Flow Rate Fraction of Inspired Oxygen 30 30 02/06/25 13:15 02/06/25 13:27 02/06/25 13:35 Temperature Pulse Rate 99 98 Respiratory Rate 20 22 H Blood Pressure Pulse Oximetry 96 Oxygen Delivery Nasal Cannula Oxygen Flow Rate 2 Fraction of Inspired Oxygen 02/06/25 14:00 02/06/25 14:00 02/06/25 14:00 Temperature 99.2 F Pulse Rate 87 89 87 Respiratory Rate 21 H 22 H Blood Pressure 134/94 H Pulse Oximetry 97 Oxygen Delivery Oxygen Flow Rate Fraction of Inspired Oxygen 02/06/25 14:30 02/06/25 14:58 02/06/25 14:58 Temperature Pulse Rate 82 77 77 Respiratory Rate 18 18 18 Blood Pressure Pulse Oximetry Oxygen Delivery Oxygen Flow Rate Fraction of Inspired Oxygen 02/06/25 15:00 02/06/25 15:30 02/06/25 15:43 Temperature Pulse Rate 89 73 Respiratory Rate 20 22 H Blood Pressure Pulse Oximetry 94 Oxygen Delivery Nasal Cannula Oxygen Flow Rate 2 Fraction of Inspired Oxygen 02/06/25 16:00 02/06/25 16:00 02/06/25 17:09 Temperature 98.6 F Pulse Rate 84 84 80 Respiratory Rate 20 19 25 H Blood Pressure 148/85 H Pulse Oximetry 97 Oxygen Delivery Oxygen Flow Rate Fraction of Inspired Oxygen Intake/Output Intake/Output: Intake & Output 02/03/25 02/04/25 02/05/25 02/06/25 23:59 23:59 23:59 23:59 Intake Total 3748.8 2745.7 2218.9 1561.3 Output Total 1180 3435 114 8446 Balance 2568.8 1190.7 1393.9 -1543.7 Meds/Results Medications: Active Medications Generic Name Dose Route Start Last Admin Trade Name Freq PRN Reason Stop Dose Admin Acetaminophen 650 mg 01/25/25 20:51 02/01/25 19:04 Acetaminophen 325 Mg Tablet PO 650 mg Q4H PRN Administration Headache Dextrose 12.5 gm 01/25/25 20:46 01/26/25 11:40 Dextrose 50% 25 Gm/50 Ml Syringe IV PUSH 12.5 gm PRN PRN Administration Hypoglycemia Protocol Glucagon 1 mg 01/25/25 20:46 Glucagon For Inj 1 Mg Vial IM PRN PRN Hypoglycemia Protocol Glucose 15 gm 01/25/25 20:46 Glucose Oral Gel 15 Gm Of Glucse In 37.5 Gm Tube PO PRN PRN Hypoglycemia Protocol Hydralazine HCl 10 mg 02/06/25 09:58 Hydralazine Hcl 20 Mg/Ml Vial IV PUSH Q4H PRN Blood Pressure - High Hydrocortisone Sodium Succinate 50 mg 02/06/25 18:00 02/06/25 17:10 Hydrocortisone Sodium Succinate 100 Mg/2 Ml Vial IV PUSH 02/07/25 06:01 50 mg Q12H KANDIS Administration Dextrose 1,000 mls @ 100 mls/hr 01/25/25 20:46 Dextrose 5% 1,000 Ml IVPB PRN PRN Hypoglycemia Protocol Meropenem 1 gm in 100 mls @ 200 mls/hr 01/29/25 13:00 02/06/25 14:26 IVPB 200 mls/hr Q8HR KANDIS Administration Doxycycline Hyclate 100 mg in 100 mls @ 100 mls/hr 02/02/25 11:00 02/06/25 10:00 Vibramycin 100 Mg/Ns 100 Ml IVPB 02/06/25 21:59 Infused Q12HR KANDIS Infusion Metronidazole 500 mg in 100 mls @ 100 mls/hr 02/04/25 12:00 02/06/25 17:10 Flagyl 500 Mg/Iso Soln 100 Ml IVPB 100 mls/hr Q6HR KANDIS Administration Dexmedetomidine HCl 400 mcg in 100 mls @ 22.613 mls/hr 02/05/25 11:00 02/06/25 17:09 Precedex 400 Mcg/100 Ml IV CONT 0.9 mcg/kg/hr .Q4H26M KANDIS 22.61 mls/hr Titration Protocol 0.9 MCG/KG/HR Insulin Aspart 4 - 8 units 02/02/25 18:00 02/06/25 11:41 Insulin Aspart (*Bkc) 100 Units/Ml SUB-Q 8 units Q6H KANDIS Administration Protocol Insulin Glargine 10 units 01/29/25 21:00 02/01/25 21:11 Insulin Glargine (*Bkc) 100 Units/Ml SUB-Q 10 units HS KANDIS Administration Insulin Glargine 20 units 02/06/25 07:55 02/06/25 08:58 Insulin Glargine (*Bkc) 100 Units/Ml SUB-Q 20 units DAILY KANDIS Administration Ipratropium [place] 0.5 mg 02/02/25 14:20 02/06/25 13:23 Ipratropium Br 0.02% Inh Soln 0.5 Mg/2.5 Ml Vial INHALATION 0.5 mg Q6HRT KANDIS Administration Lactobacillus Acidophilus 1 pkt 02/03/25 09:00 02/06/25 16:10 Acidophilus Packet 1 Pkt Packet PO Not Given QID KANDIS Levalbuterol HCl 0.63 mg 02/02/25 14:20 02/06/25 13:22 Levalbuterol Neb 1.25 Mg/3 Ml INHALATION 0.63 mg Q6HRT KANDIS Administration Midazolam HCl 2 mg 02/02/25 12:51 02/06/25 04:51 Midazolam Hcl (*Crx) 2 Mg/2 Ml Vial IV PUSH 2 mg PRN PRN Administration Sedation Multi-Ingred Cream/Lotion/Oil/Oint 1 applic 02/02/25 21:00 02/06/25 08:59 Mineral Oil/White Petrolatum Ointment EACH EYE 1 applic Q12HR KANDIS Administration Ondansetron HCl 4 mg 01/25/25 20:51 01/31/25 21:23 Ondansetron Inj 4 Mg/2 Ml Vial IV PUSH 4 mg Q6H PRN Administration Nausea And Vomiting Pantoprazole Sodium 40 mg 02/04/25 21:00 02/06/25 08:58 Pantoprazole Sodium Iv 40 Mg Vial IV PUSH 40 mg Q12HR KANDIS Administration Perflutren Lipid Microsphere 0 ml 02/04/25 07:37 Perflutren Lipid Microspheres 1.5 Ml Vial Diluted To 10 Ml Total Volume IV PUSH 02/07/25 07:37 ONCE PRN adequate visualization Protocol Sodium Chloride 10 ml 02/02/25 14:00 02/06/25 14:26 Central Line Flush IV PUSH 10 ml Q8HR KANDIS Administration Sodium Chloride 20 ml 02/02/25 13:47 02/03/25 21:40 Central Line Flush IV PUSH 20 ml PRN PRN Administration after blood draws Radiology Results: ITS Impressions Pelvis CT 01/26/25 14:17 IMPRESSION: 1. No significant change in a bilobed gas and fluid containing abscess in the deep pelvis. Patient canceled the planned percutaneous abscess drainage catheter placement due to discomfort despite attempts at repositioning. Abdomen/Pelvis CT 01/29/25 09:28 Impression: Stable large bilobed multilocular abscess in the pelvis extensively involving the distal sigmoid colon and rectum. Stable wall thickening of the distal sigmoid colon and rectum. Small right pleural effusion with right basilar atelectatic change. Cholelithiasis. Nephrolithiasis bilaterally, as detailed above. Catheter Placement CT 02/02/25 16:48 IMPRESSION: 1. Technically successful CT-guided drainage catheter placement with likely translocation and overwhelming sepsis following initial aspiration with subsequent cardiac and respiratory arrest. 2. 12-14 mL fluid was sent for aerobic and anaerobic cultures. Please see separate CODE BLUE flow sheet for additional details of the CODE BLUE portion of the case. Chest X-Ray 02/06/25 07:17 IMPRESSION: 1. Unchanged consolidation in the left lower lung zone which could represent atelectasis or pneumonia. 2. Small right pleural effusion with right basilar atelectasis versus pneumonia. Labs Labs: Laboratory Results - last 24 hr 02/05/25 02/05/25 02/06/25 18:07 23:50 04:42 WBC 17.7 H RBC 3.45 L Hgb 8.6 L Hct 28.1 L MCV 81.4 MCH 24.9 L MCHC 30.6 L RDW 17.5 H Plt Count 165 MPV 11.0 H Immature Gran % (Auto) 0.9 H Neut % (Auto) 94.0 H Lymph % (Auto) 2.8 L Gillespie % (Auto) 2.1 L Eos % (Auto) 0.0 Baso % (Auto) 0.2 Lymph # (Auto) 0.49 L Gillespie # (Auto) 0.4 Eos # (Auto) 0.0 Baso # (Auto) 0.0 Abs Immat Gran (auto) 0.16 H Absolute Neuts (auto) 16.6 H Absolute Nucleated RBC 0.000 Band Neutrophils % Not Reportable Nucleated RBC % 0.0 Platelet Estimate Adequate Anisocytosis 1+ Schistocytes Rare Puncture Site ABG pH ABG pCO2 ABG pO2 ABG PO2/FiO2 Ratio ABG HCO3 ABG O2 Saturation ABG O2 Content ABG Base Excess A-a Gradient Oxyhemoglobin Carboxyhemoglobin Methemoglobin Reduced Hemoglobin Total Hemoglobin O2 Delivery Device O2 Liters/Min Minute Volume Vent Rate Vent Mode FiO2 Tidal Volume PEEP Peak Inspir Pressure Pressure Support Sodium 141 Potassium 4.0 Chloride 103 Carbon Dioxide 32 H Anion Gap 6 BUN 46 H Creatinine 1.01 H Estim Creat Clear Calc 52 Estimated GFR 54 L Glucose 331 H POC Capillary Glucose 269 H 291 H Calcium 8.2 L Phosphorus 3.5 Magnesium 2.3 Total Bilirubin 0.8 AST 16 ALT 16 Alkaline Phosphatase 110 Total Protein 6.0 L Albumin 2.5 L 02/06/25 02/06/25 04:58 11:16 WBC RBC Hgb Hct MCV MCH MCHC RDW Plt Count MPV Immature Gran % (Auto) Neut % (Auto) Lymph % (Auto) Gillespie % (Auto) Eos % (Auto) Baso % (Auto) Lymph # (Auto) Gillespie # (Auto) Eos # (Auto) Baso # (Auto) Abs Immat Gran (auto) Absolute Neuts (auto) Absolute Nucleated RBC Band Neutrophils % Nucleated RBC % Platelet Estimate Anisocytosis Schistocytes Puncture Site Right radial ABG pH 7.489 H ABG pCO2 38.8 ABG pO2 76.4 L ABG PO2/FiO2 Ratio 2.55 ABG HCO3 28.8 H ABG O2 Saturation 96.2 ABG O2 Content 13.0 L ABG Base Excess 5.2 A-a Gradient 91.9 Oxyhemoglobin 94.0 Carboxyhemoglobin 0.8 Methemoglobin 0.3 Reduced Hemoglobin 4.9 Total Hemoglobin 9.8 L O2 Delivery Device Ventilator O2 Liters/Min Not Reportable Minute Volume Not Reportable Vent Rate 16 Vent Mode Cmv FiO2 30 Tidal Volume 420 PEEP 8 Peak Inspir Pressure Not Reportable Pressure Support Not Reportable Sodium Potassium Chloride Carbon Dioxide Anion Gap BUN Creatinine Estim Creat Clear Calc Estimated GFR Glucose POC Capillary Glucose 380 H Calcium Phosphorus Magnesium Total Bilirubin AST ALT Alkaline Phosphatase Total Protein Albumin Quality VTE Prophylaxis VTE prophylaxis: pharmacologic ordered
[2025-02-06 18:05] LABS: Glucose Point of Care 299 mg/dl (65-105)
[2025-02-06] MEDS: dexmedeTOMIDine 400 MCG/100 ML 400 MCG/100 ML BAG 27.64 MCG IV CONT ×2 (19:22→22:30)
[2025-02-06] MEDS: hydrALAZINE HCL 20 MG/ML VIAL 10 MG IV PUSH (20:17)
[2025-02-06 20:46] LABS: Glucose Point of Care 264 mg/dl (65-105)
[2025-02-06] MEDS: MORPHINE SULFATE (*CRX) 2 MG/ML INJ IV PUSH (21:07)
[2025-02-06] MEDS: ONDANSETRON INJ 4 MG/2 ML VIAL IV PUSH (22:13)
--- NOTE | 2025-02-06 22:57 | ECG_ITS ---
Test Date: 2025-02-06 23:05:05 Measurements Intervals [place] Rate: 76 P: 11 PA: 149 QRS: -18 QRSD: 104 T: 3 QT: 393 QTc: 444 Interpretive Statements SINUS RHYTHM MODERATE VOLTAGE CRITERIA FOR LVH, CONSIDER NORMAL VARIANT [MEETS CRITERIA IN ONE OF: R(aVL), S(V1), R(V5), R(V5/V6)+S(V1)] POSSIBLE LATERAL MYOCARDIAL INFARCTION [30 ms Q WAVE IN I/aVL/V5/V6], OF INDETERMINATE AGE Compared to ECG 02/02/2025 13:22:37 Myocardial infarct finding now present Sinus tachycardia no longer present Right bundle-branch block no longer present Left anterior fascicular block no longer present Electronically Signed On 02-07-2025 16:04:11 CDT by Rachel Arvizu
--- NOTE | 2025-02-06 23:19 | PC.NURSE ---
RN found on the monitor that the patient converted to SR around 2218. Confirmed with an EKG at 2305.
[2025-02-07] VITALS (30 sets, daily range): BP systolic 123–161; BP diastolic 68–85; PULSE 56–76; RESP 12–24; TEMP 36.4–37.1; O2SAT 96–100
[2025-02-07] MEDS: metroNIDAZOLE 500 MG/ISO 100ML 500 MG/100 ML BAG 100 MG IVPB ×5 (00:04→23:18)
[2025-02-07] MEDS: INSULIN ASPART (*BKC) 100 UNITS/ML SUB-Q ×3 (00:06→12:06)
[2025-02-07 00:16] LABS: Glucose Point of Care 307 mg/dl (65-105)
[2025-02-07] MEDS: dexmedeTOMIDine 400 MCG/100 ML 400 MCG/100 ML BAG 37.69 MCG IV CONT ×3 (01:56→07:06)
[2025-02-07] MEDS: LEVALBUTEROL NEB 1.25 MG/3 ML 0.63 MG INHALATION ×3 (02:20→13:49)
[2025-02-07] MEDS: IPRATROPIUM BR 0.02% INH SOLN 0.5 MG/2.5 ML VIAL INHALATION ×3 (02:20→13:49)
[2025-02-07 05:00] LABS: Basophils Percent Auto 0.1 % (0.2-1.2); Hematocrit 27.9 % (37.0-47.0); Hemoglobin 8.7 g/dL (12.0-15.0); Immature Granulocyte Absolute 0.07 K/mm3 (0.00-0.031); Immature Granulocyte Percent A 0.5 % (0-0.5); Lymphocytes Absolute Auto 0.85 K/mm3 (0.9-3.2); Mean Corpuscular HGB Conc 31.2 g/dl (32-36); Mean Corpuscular Hemoglobin 25.2 pg (26-34); Mean Corpuscular Volume 80.9 fl (80-100); Mean Platelet Volume 10.5 fl (7.4-10.4); Monocytes Absolute Auto 0.6 K/mm3 (0.1-0.6); Monocytes Percent Auto 4.3 % (2.6-8.5); Neutrophils Absolute Auto 12.7 K/mm3 (1.3-6.7); Neutrophils Percent Auto 89.1 % (45.5-73.1); Platelet Count Result 162 k/mm3 (150-375); Red Blood Count 3.45 M/mm3 (4.2-5.4); White Blood Count 14.2 K/mm3 (4.5-10.0)
[2025-02-07 05:13] LABS: Alveolar/Arterial O2 Gradient 183.1 mmHg; Base Excess ABG 9.3 mEq/l (+/-2.0); Carboxyhemoglobin 0.7 % THb (0-2.0); Fractional Inspired Oxygen 45 %; HCO3 ABG 33.7 mEq/l (22.0-26.0); Methemoglobin ABG 0.3 %THb (0-1.5); Oxygen Content ABG 12.6 %vol (16.0-22.0); Oxygen Saturation ABG 97.1 % (95.0-100.0); Oxyhemoglobin 95.5 % THb (90.0-100.0); PCO2 ABG 45.3 mmHg (35.0-45.0); PO2 ABG 86.2 mmHg (80.0-100.0); PO2 FiO2 Ratio Arterial Blood 1.92 %; Reduced Hemoglobin 3.5 %THb (0-5.0); Total Hemoglobin 9.3 g/dL (12.0-18.0); pH ABG 7.489 (7.350-7.450)
[2025-02-07 05:15] LABS: Device HIGH FLOW NASAL CANN; Modified Allen's Test Pass; Site Drawn RIGHT RADIAL
[2025-02-07 05:17] LABS: Alanine Aminotransferase 15 U/L (6-35); Albumin Level 2.5 g/dL (3.5-5.1); Alkaline Phosphatase 89 U/L (38-126); Anion Gap 7 mmol/L (4-12); Aspartate Amino Transferase 13 U/L (14-36); Bilirubin,Total 0.9 mg/dL (0.2-1.3); Blood Urea Nitrogen 48 mg/dL (7-17); Calcium 8.2 mg/dL (8.4-10.2); Carbon Dioxide 34 mmol/L (22-30); Chloride 105 mmol/L (98-107); Estimated CRCL calculation 62 ml/min; Estimated Glomerular Filt Rate > 60; Glucose 248 mg/dL (65-110); Magnesium 2.1 mg/dL (1.6-2.3); Potassium 2.7 mmol/L (3.4-5.0); Sodium 146 mmol/L (137-145)
[2025-02-07] MEDS: HYDROCORTISONE SODIUM SUCCINATE 100 MG/2 ML VIAL 50 MG IV PUSH (06:04)
[2025-02-07] MEDS: MEROPENEM 1 GM/NS 100 ML 1 GM/100 ML BAG IVPB ×3 (06:09→21:20)
[2025-02-07] MEDS: CENTRAL LINE FLUSH 10 ML IV PUSH ×3 (06:12→20:50)
[2025-02-07 06:16] LABS: Glucose Point of Care 220 mg/dl (65-105)
[2025-02-07] MEDS: KCL 40 MEQ/WATER 100 ML 100 ML 25 ML IVPB ×3 (06:38→17:05)
[2025-02-07] MEDS: PANTOPRAZOLE SODIUM IV 40 MG VIAL IV PUSH ×3 (08:42→20:48)
[2025-02-07] MEDS: INSULIN GLARGINE (*BKC) 100 UNITS/ML 20 UNITS SUB-Q (08:43)
[2025-02-07] MEDS: MINERAL OIL/WHITE PETROLATUM OINTMENT 1 APPLIC EACH EYE ×2 (08:56→20:17)
--- NOTE | 2025-02-07 09:05 | P.PNINT_ITS ---
Progress Note: A&P Assessment and Plan (1) Cardiac arrest: Code(s): I46.9 - Cardiac arrest, cause unspecified Status: Acute Assessment and Plan: Patient had a cardiac arrest after placement of a percutaneous drain in the pelvic abscess. Could be related to vasovagal, translocation of bacteria, hypoxia as patient was laying flat, hypovolemia, acidosis -successful ROSC x2, intubated in the CT scan suite by ER physician -patient did follow commands post code a continue, so not a candidate for targeted temperature management -will continue to treat underlying cause (2) Septic shock: Code(s): A41.9 - Sepsis, unspecified organism; R65.21 - Severe sepsis with septic shock Status: Acute Assessment and Plan: 02/01:In the ICU patient dropped her blood pressures -patient has been adequately fluid-resuscitated with IV fluids and albumin -01/25: Blood cultures negative x2 -02/02: repeat blood cultures -growing E coli (pansensitive) and Clostridium ramosum -02/02: Abscess fluid culture growing E coli and Bacteroides fragilis 02/03: WBC count up to 64, could be related to septic shock, infection, leukomoid reaction, steroids. Will continue to monitor -WBC count is trending down, patient is afebrile, continue to monitor --continue meropenem, Flagyl 02/04: Discontinue vancomycin -continue doxycycline for 5 days - weaning stress dose steroid -off all pressors (patient was on Levophed, Bobo-Synephrine and vasopressin) -WBC count trending down 02/04: Repeat blood cultures growing gram variable bacilli and Gram-negative b acilli (3) Acute respiratory failure: Qualifiers: Respiratory failure complication: hypoxia Qualified Code(s): J96.01 - Acute respiratory failure with hypoxia Code(s): J96.00 - Acute respiratory failure, unspecified whether with hypoxia or hypercapnia Status: Acute Assessment and Plan: Acute respiratory failure likely related to cardiac arrest possible from septic shock, infection, hypovolemia, translocation of bacteria, acidosis, hypoxia -patient intubated in the CT scan suite by ER physician -02/06: Accidentally coughed upper ETT was he was on pressure support ventilation 10/5 for approximately 3 hours and 40 minutes -tolerated nasal cannula all day, overnight had to be placed on Airvo as she was getting anxious -chest x-ray and ABGs reviewed -increased pleural effusion more on the right side -continue Xopenex and Atrovent nebulizer -patient has been on Precedex infusion, -diuresed well with Lasix on 02/06 -will repeat diuresis again today after repleted potassium Currently on Airvo 45% FiO2 and 45 L flow rate (4) Intra-abdominal abscess: Code(s): K65.1 - Peritoneal abscess Status: Acute Assessment and Plan: Intra-abdominal abscess, status post percutaneous IR drain placement on 02/01/2025 -draining purulent material, cultures as above -surgery is following the patient -continue antibiotics as above (5) Diabetes 1.5, managed as type 2: Code(s): E13.9 - Other specified diabetes mellitus without complications Status: Acute Assessment and Plan: Continue Accu-Cheks and sliding scale insulin -tolerating trickle tube feeds, hyperglycemic, -continue Lantus, patient currently NPO, will not increase for now -continue monitoring Accu-Cheks (6) Hypertension: Qualifiers: Hypertension type: unspecified Qualified Code(s): I10 - Essential (primary) hypertension Code(s): I10 - Essential (primary) hypertension Status: Acute Assessment and Plan: Patient just came off pressors, continue to hold antihypertensives for now -will add p.r.n. hydralazine IV -once patient starts taking p.o. with will add her home antihypertensive (7) Anemia: Qualifiers: Anemia type: other cause Other causes of anemia: chronic disease, other Qualified Code(s): D63.8 - Anemia in other chronic diseases classified e lsewhere Code(s): D64.9 - Anemia, unspecified Status: Acute Assessment and Plan: 02/03: Hemoglobin dropped to 6.3. -will transfuse 1 unit of packed RBC -hemoglobin stable -02/05: hemoglobin dropped to 7.0 -status post 1 unit of packed RBC -iron panel reflective of iron deficiency anemia and/or anemia of chronic disease -folic acid and vitamin B12 levels within normal limits -stool occult was positive -appreciate GI evaluation and recommendations -hemoglobin remained stable, continue to monitor Plan DVT prophylaxis: Hold Lovenox due to anemia, SCD orders in place Stress ulcer prophylaxis: Protonix IV q.12 hours Nutrition: Speech therapy for bedside swallow evaluation Code Status: Full code Critical Care Time Spent: 32 minutes Discussed with patient daughter Leslye, and updated with patient's condition and plan of care. I answered all her questions. Due to a high probability of clinically significant, life threatening deterioration, the patient required my highest level of preparedness to intervene emergently and I personally spent this critical care time directly and personally managing the patient. This critical care time included obtaining a history; examining the patient; pulse oximetry; ordering and review of studies; arranging urgent treatment with development of a management plan; evaluation of patient's response to treatment; frequent reassessment; and discussions with ot her providers. It was exclusive of separately billable procedures and treating other patients and teaching time. Please see Assessment and Plan section and the rest of the note for further information on patient assessment and treatment This dictation may have been done utilizing a voice recognition system. Attempts have been made to correct errors. However, there may be uncorrected grammatical, spelling, and recognitions errors present. Subjective Date/time seen: 02/07/25 09:05 Interval history: Reason for consult: Cardiac arrest, acute respiratory failure, abdominal abscess, sepsis 02/07/2025: Patient seen and examined the ICU, accidental extubation yesterday after she probably cough. She was already pressure support ventilation /8 for approximately 3 hours 40 minutes after which the ET tube came out. Patient was on nasal cannula initially, her very anxious, Precedex infusion had to be increased and overnight she was placed on Airvo. This morning she is awake, opens her eyes, does not want to answer any questions or follow any commands. Diuresed well yesterday but negative 1700 fluid balance, afebrile and hemodynamically stable. White blood cell count trending down, hemoglobin remained stable. Potassium was 2.7 this morning Review of Systems Review of Systems: ROS unobtainable: Yes unobtainable due to mental status Exam Narrative: General: Obese female currently in no acute distress HEENT:? Pupils equal and reactive, sclera is clear, Airvo in place Neck:? Supple Respiratory:? Coarse breath sounds bilaterally, decreased at bases, no wheezing, adequate air entry Cardiac:? S1-S2 normal, regular rate and rhythm Abdomen:? Soft, nontender, obese, hypoactive bowel sounds, left lower quadrant drain in place with purulent drainage Extremities:? Trace edema, palpable pedal pulse Neuro:? Patient remains on Precedex infusion, does not want open her eyes or follow simple commands Skin:? No skin lesions noted Psych:? Unable to assess at this time Objective Data Vital Signs Vital Signs: Vital Signs - 24 hr 02/06/25 09:34 02/06/25 10:00 02/06/25 10:00 Temperature 99.6 F Pulse Rate 96 90 77 Respiratory Rate 18 16 Blood Pressure 139/94 H Pulse Oximetry 98 Oxygen Delivery Oxygen Flow Rate Fraction of Inspired Oxygen 02/06/25 10:28 02/06/25 11:02 02/06/25 11:02 Temperature Pulse Rate 80 92 92 Respiratory Rate 21 H 21 H Blood Pressure Pulse Oximetry 97 Oxygen Delivery Mechanical Ventilation Oxygen Flow Rate Fraction of Inspired Oxygen 30 02/06/25 12:00 02/06/25 12:00 02/06/25 12:00 Temperature 99.3 F Pulse Rate 100 93 Respiratory Rate 23 H 16 Blood Pressure 148/77 H Pulse Oximetry 96 Oxygen Delivery Mechanical Ventilation Oxygen Flow Rate Fraction of Inspired Oxygen 30 02/06/25 12:00 02/06/25 12:00 02/06/25 13:15 Temperature Pulse Rate 87 Respiratory Rate Blood Pressure Pulse Oximetry 96 Oxygen Delivery Nasal Cannula Oxygen Flow Rate 2 Fraction of Inspired Oxygen 30 02/06/25 13:27 02/06/25 13:35 02/06/25 14:00 Temperature 99.2 F Pulse Rate 99 98 87 Respiratory Rate 20 22 H 21 H Blood Pressure 134/94 H Pulse Oximetry 97 Oxygen Delivery Oxygen Flow Rate Fraction of Inspired Oxygen 02/06/25 14:00 02/06/25 14:00 02/06/25 14:30 Temperature Pulse Rate 89 87 82 Respiratory Rate 22 H 18 Blood Pressure Pulse Oximetry Oxygen Delivery Oxygen Flow Rate Fraction of Inspired Oxygen 02/06/25 14:58 02/06/25 14:58 02/06/25 15:00 Temperature Pulse Rate 77 77 89 Respiratory Rate 18 18 20 Blood Pressure Pulse Oximetry Oxygen Delivery Oxygen Flow Rate Fraction of Inspired Oxygen 02/06/25 15:30 02/06/25 15:43 02/06/25 16:00 Temperature 98.6 F Pulse Rate 73 84 Respiratory Rate 22 H 20 Blood Pressure 148/85 H Pulse Oximetry 94 97 Oxygen Delivery Nasal Cannula Oxygen Flow Rate 2 Fraction of Inspired Oxygen 02/06/25 16:00 02/06/25 16:00 02/06/25 17:09 Temperature Pulse Rate 84 78 80 Respiratory Rate 19 25 H Blood Pressure Pulse Oximetry Oxygen Delivery Oxygen Flow Rate Fraction of Inspired Oxygen 02/06/25 17:40 02/06/25 18:00 02/06/25 18:00 Temperature 98.4 F Pulse Rate 86 88 80 Respiratory Rate 18 19 Blood Pressure 151/88 H Pulse Oximetry 96 Oxygen Delivery Oxygen Flow Rate Fraction of Inspired Oxygen 02/06/25 18:15 02/06/25 19:22 02/06/25 19:22 Temperature Pulse Rate 85 81 81 Respiratory Rate 25 H 23 H 23 H Blood Pressure Pulse Oximetry Oxygen Delivery Oxygen Flow Rate Fraction of Inspired Oxygen 02/06/25 20:00 02/06/25 20:00 02/06/25 20:00 Temperature 98.5 F Pulse Rate 77 77 74 Respiratory Rate 18 18 Blood Pressure 160/88 H Pulse Oximetry 96 Oxygen Delivery Oxygen Flow Rate Fraction of Inspired Oxygen 02/06/25 20:00 02/06/25 20:25 02/06/25 20:29 Temperature Pulse Rate 73 90 Respiratory Rate 24 H 26 H Blood Pressure Pulse Oximetry 96 Oxygen Delivery Nasal Cannula Oxygen Flow Rate 2 Fraction of Inspired Oxygen 02/06/25 20:30 02/06/25 20:53 02/06/25 22:00 Temperature Pulse Rate 71 98 Respiratory Rate 24 H 22 H Blood Pressure 122/74 Pulse Oximetry Oxygen Delivery Oxygen Flow Rate Fraction of Inspired Oxygen 02/06/25 22:00 02/06/25 22:00 02/06/25 22:30 Temperature 98.1 F Pulse Rate 97 97 78 Respiratory Rate 19 14 Blood Pressure 147/73 H Pulse Oximetry 93 Oxygen Delivery Oxygen Flow Rate Fraction of Inspired Oxygen 02/06/25 22:30 02/07/25 00:00 02/07/25 00:00 Temperature 98.2 F Pulse Rate 78 76 Respiratory Rate 14 21 H Blood Pressure 141/75 H Pulse Oximetry 96 96 Oxygen Delivery High Flow Therapy with Na Oxygen Flow Rate 45 Fraction of Inspired Oxygen 60 02/07/25 00:00 02/07/25 00:00 02/07/25 01:08 Temperature Pulse Rate 76 75 72 Respiratory Rate 21 H 22 H Blood Pressure Pulse Oximetry Oxygen Delivery Oxygen Flow Rate Fraction of Inspired Oxygen 02/07/25 01:56 02/07/25 01:56 02/07/25 02:00 Temperature Pulse Rate 70 70 70 Respiratory Rate 21 H 21 H 23 H Blood Pressure Pulse Oximetry Oxygen Delivery Oxygen Flow Rate Fraction of Inspired Oxygen 02/07/25 02:00 02/07/25 02:00 02/07/25 02:20 Temperature 98 F Pulse Rate 70 70 72 Respiratory Rate 23 H 17 Blood Pressure 141/77 H Pulse Oximetry 99 Oxygen Delivery Oxygen Flow Rate Fraction of Inspired Oxygen 02/07/25 02:36 02/07/25 04:00 02/07/25 04:00 Temperature 98 F Pulse Rate 70 66 66 Respiratory Rate 18 17 Blood Pressure 148/80 H Pulse Oximetry 98 Oxygen Delivery Oxygen Flow Rate Fraction of Inspired Oxygen 02/07/25 04:00 02/07/25 04:00 02/07/25 04:34 Temperature Pulse Rate 66 67 Respiratory Rate 18 17 Blood Pressure Pulse Oximetry 99 Oxygen Delivery High Flow Therapy with Na Oxygen Flow Rate 45 Fraction of Inspired Oxygen 45 02/07/25 04:34 02/07/25 06:00 02/07/25 06:00 Temperature Pulse Rate 67 65 65 Respiratory Rate 17 16 Blood Pressure Pulse Oximetry Oxygen Delivery Oxygen Flow Rate Fraction of Inspired Oxygen 02/07/25 06:00 02/07/25 07:06 02/07/25 07:06 Temperature 98.1 F Pulse Rate 65 64 64 Respiratory Rate 16 18 18 Blood Pressure 148/82 H Pulse Oximetry 99 Oxygen Delivery Oxygen Flow Rate Fraction of Inspired Oxygen 02/07/25 07:43 02/07/25 08:00 02/07/25 08:10 Temperature 98.3 F Pulse Rate 65 65 Respiratory Rate 20 18 Blood Pressure 155/85 H Pulse Oximetry 98 99 Oxygen Delivery High Flow Therapy with Na Oxygen Flow Rate 45 Fraction of Inspired Oxygen 45 02/07/25 08:10 02/07/25 08:56 Temperature Pulse Rate 64 63 Respiratory Rate 20 18 Blood Pressure Pulse Oximetry Oxygen Delivery Oxygen Flow Rate Fraction of Inspired Oxygen Intake/Output Intake/Output: Intake & Output 02/04/25 02/05/25 02/06/25 02/07/25 23:59 23:59 23:59 23:59 Intake Total 2745.7 2218.9 2008.8 662.8 Output Total 9262 567 9357 835 Balance 1190.7 1393.9 -1096.2 -172.2 Meds/Results Medications: Active Medications Generic Name Dose Route Start Last Admin Trade Name Freq PRN Reason Stop Dose Admin Acetaminophen 650 mg 01/25/25 20:51 02/01/25 19:04 Acetaminophen 325 Mg Tablet PO 650 mg Q4H PRN Administration Headache Dextrose 12.5 gm 01/25/25 20:46 01/26/25 11:40 Dextrose 50% 25 Gm/50 Ml Syringe IV PUSH 12.5 gm PRN PRN Administration Hypoglycemia Protocol Glucagon 1 mg 01/25/25 20:46 Glucagon For Inj 1 Mg Vial IM PRN PRN Hypoglycemia Protocol Glucose 15 gm 01/25/25 20:46 Glucose Oral Gel 15 Gm Of Glucse In 37.5 Gm Tube PO PRN PRN Hypoglycemia Protocol Hydralazine HCl 10 mg 02/06/25 09:58 02/06/25 20:17 Hydralazine Hcl 20 Mg/Ml Vial IV PUSH 10 mg Q4H PRN Administration Blood Pressure - High Dextrose 1,000 mls @ 100 mls/hr 01/25/25 20:46 Dextrose 5% 1,000 Ml IVPB PRN PRN Hypoglycemia Protocol Meropenem 1 gm in 100 mls @ 200 mls/hr 01/29/25 13:00 02/07/25 06:40 IVPB Infused Q8HR KANDIS Infusion Metronidazole 500 mg in 100 mls @ 100 mls/hr 02/04/25 12:00 02/07/25 07:05 Flagyl 500 Mg/Iso Soln 100 Ml IVPB Infused Q6HR KANDIS Infusion Dexmedetomidine HCl 400 mcg in 100 mls @ 35.175 mls/hr 02/05/25 11:00 02/07/25 08:56 Precedex 400 Mcg/100 Ml IV CONT 1.4 mcg/kg/hr .Q2H51M KANDIS 35.18 mls/hr Titration Protocol 1.4 MCG/KG/HR Potassium Chloride 100 mls @ 25 mls/hr 02/07/25 06:30 02/07/25 06:38 Kcl 40 Meq/Water 100 Ml IVPB 02/07/25 10:29 25 mls/hr ONCE ONE Administration Insulin Aspart 4 - 8 units 02/02/25 18:00 02/07/25 06:13 Insulin Aspart (*Bkc) 100 Units/Ml SUB-Q 4 units Q6H KANDIS Administration Protocol Insulin Glargine 10 units 01/29/25 21:00 02/01/25 21:11 Insulin Glargine (*Bkc) 100 Units/Ml SUB-Q 10 units HS KANDIS Administration Insulin Glargine 20 units 02/06/25 07:55 02/07/25 08:43 Insulin Glargine (*Bkc) 100 Units/Ml SUB-Q 20 units DAILY KANDIS Administration Ipratropium [place] 0.5 mg 02/02/25 14:20 02/07/25 08:10 Ipratropium Br 0.02% Inh Soln 0.5 Mg/2.5 Ml Vial INHALATION 0.5 mg Q6HRT KANDIS Administration Lactobacillus Acidophilus 1 pkt 02/03/25 09:00 02/07/25 08:04 Acidophilus Packet 1 Pkt Packet PO Not Given QID KANDIS Levalbuterol HCl 0.63 mg 02/02/25 14:20 02/07/25 08:10 Levalbuterol Neb 1.25 Mg/3 Ml INHALATION 0.63 mg Q6HRT KANDIS Administration Midazolam HCl 2 mg 02/02/25 12:51 02/06/25 04:51 Midazolam Hcl (*Crx) 2 Mg/2 Ml Vial IV PUSH 2 mg PRN PRN Administration Sedation Morphine Sulfate 2 mg 02/06/25 20:59 02/06/25 21:07 Morphine Sulfate (*Crx) 2 Mg/Ml Inj IV PUSH 2 mg Q4H PRN Administration Pain Rated 7-10 Multi-Ingred Cream/Lotion/Oil/Oint 1 applic 02/02/25 21:00 02/07/25 08:56 Mineral Oil/White Petrolatum Ointment EACH EYE 1 applic Q12HR KANDIS Administration Ondansetron HCl 4 mg 01/25/25 20:51 02/06/25 22:13 Ondansetron Inj 4 Mg/2 Ml Vial IV PUSH 4 mg Q6H PRN Administration Nausea And Vomiting Pantoprazole Sodium 40 mg 02/04/25 21:00 02/07/25 08:42 Pantoprazole Sodium Iv 40 Mg Vial IV PUSH 40 mg Q12HR KANDIS Administration Sodium Chloride 10 ml 02/02/25 14:00 02/07/25 06:12 Central Line Flush IV PUSH 10 ml Q8HR KANDIS Administration Sodium Chloride 20 ml 02/02/25 13:47 02/03/25 21:40 Central Line Flush IV PUSH 20 ml PRN PRN Administration after blood draws Radiology Results: ITS Impressions Pelvis CT 01/26/25 14:17 IMPRESSION: 1. No significant change in a bilobed gas and fluid containing abscess in the deep pelvis. Patient canceled the planned percutaneous abscess drainage catheter placement due to discomfort despite attempts at repositioning. Abdomen/Pelvis CT 01/29/25 09:28 Impression: Stable large bilobed multilocular abscess in the pelvis extensively involving the distal sigmoid colon and rectum. Stable wall thickening of the distal sigmoid colon and rectum. Small right pleural effusion with right basilar atelectatic change. Cholelithiasis. Nephrolithiasis bilaterally, as detailed above. Catheter Placement CT 02/02/25 16:48 IMPRESSION: 1. Technically successful CT-guided drainage catheter placement with likely translocation and overwhelming sepsis following initial aspiration with subsequent cardiac and respiratory arrest. 2. 12-14 mL fluid was sent for aerobic and anaerobic cultures. Please see separate CODE BLUE flow sheet for additional details of the CODE BLUE portion of the case. Chest X-Ray 02/07/25 07:25 IMPRESSION: Bibasilar atelectasis versus pneumonia. Increased pleural effusion more on the right side. Abdomen X-Ray 02/07/25 08:16 IMPRESSION: NO ACUTE ABDOMINAL FINDINGS. Labs Labs: Laboratory Results - last 24 hr 02/06/25 02/06/25 02/06/25 11:16 17:57 20:22 WBC RBC Hgb Hct MCV MCH MCHC RDW Plt Count MPV Immature Gran % (Auto) Neut % (Auto) Lymph % (Auto) [place] % (Auto) Eos % (Auto) Baso % (Auto) Lymph # (Auto) [place] # (Auto) Eos # (Auto) Baso # (Auto) Abs Immat Gran (auto) Absolute Neuts (auto) Absolute Nucleated RBC Nucleated RBC % Puncture Site ABG pH ABG pCO2 ABG pO2 ABG PO2/FiO2 Ratio ABG HCO3 ABG O2 Saturation ABG O2 Content ABG Base Excess A-a Gradient Oxyhemoglobin Carboxyhemoglobin Methemoglobin Reduced Hemoglobin Total Hemoglobin O2 Delivery Device O2 Liters/Min FiO2 Sodium Potassium Chloride Carbon Dioxide Anion Gap BUN Creatinine Estim Creat Clear Calc Estimated GFR Glucose POC Capillary Glucose 380 H 299 H 264 H Calcium Phosphorus Magnesium Total Bilirubin AST ALT Alkaline Phosphatase Total Protein Albumin 02/07/25 02/07/25 02/07/25 00:06 04:44 05:11 WBC 14.2 H RBC 3.45 L Hgb 8.7 L Hct 27.9 L MCV 80.9 MCH 25.2 L MCHC 31.2 L RDW 18.0 H Plt Count 162 MPV 10.5 H Immature Gran % (Auto) 0.5 Neut % (Auto) 89.1 H Lymph % (Auto) 6.0 L [place] % (Auto) 4.3 Eos % (Auto) 0.0 Baso % (Auto) 0.1 L Lymph # (Auto) 0.85 L [place] # (Auto) 0.6 Eos # (Auto) 0.0 Baso # (Auto) 0.0 Abs Immat Gran (auto) 0.07 H Absolute Neuts (auto) 12.7 H Absolute Nucleated RBC 0.000 Nucleated RBC % 0.0 Puncture Site Right radial ABG pH 7.489 H ABG pCO2 45.3 H ABG pO2 86.2 ABG PO2/FiO2 Ratio 1.92 ABG HCO3 33.7 H ABG O2 Saturation 97.1 ABG O2 Content 12.6 L ABG Base Excess 9.3 A-a Gradient 183.1 Oxyhemoglobin 95.5 Carboxyhemoglobin 0.7 Methemoglobin 0.3 Reduced Hemoglobin 3.5 Total Hemoglobin 9.3 L O2 Delivery Device High flow nasal madhuri O2 Liters/Min 45.0 FiO2 45 Sodium 146 H Potassium 2.7 L* Chloride 105 Carbon Dioxide 34 H Anion Gap 7 BUN 48 H Creatinine 0.83 Estim Creat Clear Calc 62 Estimated GFR > 60 Glucose 248 H POC Capillary Glucose 307 H Calcium 8.2 L Phosphorus 3.0 Magnesium 2.1 Total Bilirubin 0.9 AST 13 L ALT 15 Alkaline Phosphatase 89 Total Protein 6.0 L Albumin 2.5 L 02/07/25 06:11 WBC RBC Hgb Hct MCV MCH MCHC RDW Plt Count MPV Immature Gran % (Auto) Neut % (Auto) Lymph % (Auto) [place] % (Auto) Eos % (Auto) Baso % (Auto) Lymph # (Auto) [place] # (Auto) Eos # (Auto) Baso # (Auto) Abs Immat Gran (auto) Absolute Neuts (auto) Absolute Nucleated RBC Nucleated RBC % Puncture Site ABG pH ABG pCO2 ABG pO2 ABG PO2/FiO2 Ratio ABG HCO3 ABG O2 Saturation ABG O2 Content ABG Base Excess A-a Gradient Oxyhemoglobin Carboxyhemoglobin Methemoglobin Reduced Hemoglobin Total Hemoglobin O2 Delivery Device O2 Liters/Min FiO2 Sodium Potassium Chloride Carbon Dioxide Anion Gap BUN Creatinine Estim Creat Clear Calc Estimated GFR Glucose POC Capillary Glucose 220 H Calcium Phosphorus Magnesium Total Bilirubin AST ALT Alkaline Phosphatase Total Protein Albumin Quality VTE Prophylaxis VTE prophylaxis: pharmacologic ordered
[2025-02-07] MEDS: dexmedeTOMIDine 400 MCG/100 ML 400 MCG/100 ML BAG 32.66 MCG IV CONT (09:45)
--- NOTE | 2025-02-07 10:25 | PM.IMPN ---
Progress Note: A&P Assessment and Plan (1) Cardiac arrest: Code(s): I46.9 - Cardiac arrest, cause unspecified Status: Acute Assessment and Plan: Patient had a cardiac arrest after placement of a percutaneous drain in the pelvic abscess. Could be related to vasovagal, translocation of bacteria, hypoxia as patient was laying flat, hypovolemia, acidosis -successful ROSC x2, intubated in the CT scan suite by ER physician -patient did follow commands post code a continue, so not a candidate for targeted temperature management -will continue to treat underlying cause (2) Septic shock: Code(s): A41.9 - Sepsis, unspecified organism; R65.21 - Severe sepsis with septic shock Status: Acute Assessment and Plan: 02/01:In the ICU patient dropped her blood pressures -patient has been adequately fluid-resuscitated with IV fluids and albumin -01/25: Blood cultures negative x2 -02/02: repeat blood cultures -growing E coli (pansensitive) and Clostridium ramosum -02/02: Abscess fluid culture growing E coli and Bacteroides fragilis 02/03: WBC count up to 64, could be related to septic shock, infection, leukomoid reaction, steroids. Will continue to monitor -WBC count is trending down, patient is afebrile, continue to monitor --continue meropenem, Flagyl 02/04: Discontinue vancomycin -continue doxycycline for 5 days - weaning stress dose steroid -off all pressors (patient was on Levophed, Bobo-Synephrine and vasopressin) -WBC count trending down 02/04: Repeat blood cultures growing gram variable bacilli and Gram-negative bacilli (3) Acute respiratory failure: Qualifiers: Respiratory failure complication: hypoxia Qualified Code(s): J96.01 - Acute respiratory failure with hypoxia Code(s): J96.00 - Acute respiratory failure, unspecified whether with hypoxia or hypercapnia Status: Acute Assessment and Plan: Acute respiratory failure likely related to cardiac arrest possible from septic shock, infection, hypovolemia, translocation of bacteria, acidosis, hypoxia -patient intubated in the CT scan suite by ER physician -02/06: Accidentally coughed upper ETT was he was on pressure support ventilation 10/5 for approximately 3 hours and 40 minutes -tolerated nasal cannula all day, overnight had to be placed on Airvo as she was getting anxious -chest x-ray and ABGs reviewed -increased pleural effusion more on the right side -continue Xopenex and Atrovent nebulizer -patient has been on Precedex infusion, -diuresed well with Lasix on 02/06 -will repeat diuresis again today after repleted potassium Currently on Airvo 45% FiO2 and 45 L flow rate (4) Intra-abdominal abscess: Code(s): K65.1 - Peritoneal abscess Status: Acute Assessment and Plan: Intra-abdominal abscess, status post percutaneous IR drain placement on 02/01/2025 -draining purulent material, cultures as above -surgery is following the patient -continue antibiotics as above (5) Diabetes 1.5, managed as type 2: Code(s): E13.9 - Other specified diabetes mellitus without complications Status: Acute Assessment and Plan: Continue Accu-Cheks and sliding scale insulin -tolerating trickle tube feeds, hyperglycemic, -continue Lantus, patient currently NPO, will not increase for now -continue monitoring Accu-Cheks (6) Hypertension: Qualifiers: Hypertension type: unspecified Qualified Code(s): I10 - Essential (primary) hypertension Code(s): I10 - Essential (primary) hypertension Status: Acute Assessment and Plan: Patient just came off pressors, continue to hold antihypertensives for now -will add p.r.n. hydralazine IV -once patient starts taking p.o. with will add her home antihypertensive (7) Anemia: Qualifiers: Anemia type: other cause Other causes of anemia: chronic disease, other Qualified Code(s): D63.8 - Anemia in other chronic diseases classified elsewhere Code(s): D64.9 - Anemia, unspecified Status: Acute Assessment and Plan: 02/03: Hemoglobin dropped to 6.3. -will transfuse 1 unit of packed RBC -hemoglobin stable -02/05: hemoglobin dropped to 7.0 -status post 1 unit of packed RBC -folic acid and vitamin B12 levels within normal limits -stool occult was positive GI planning endoscopy once patient is stable Isat 11, will start iron replacement later Plan DVT prophylaxis: Hold Lovenox due to anemia, SCD orders in place Stress ulcer prophylaxis: Protonix IV q.12 hours Nutrition: Speech therapy for bedside swallow evaluation Code Status: Full code Subjective Date/time seen: 02/07/25 10:25 Interval history: Patient extubated and on HFNC Review of Systems Review of Systems: All systems reviewed & are unremarkable except as noted in HPI and below ROS unobtainable: Yes unobtainable due to endotracheal tube, unobtainable due to medical condition and unobtainable due to mental status Exam Narrative: General: Obese female currently in no acute distress HEENT:? Pupils equal and reactive, sclera is clear, Airvo in place Neck:? Supple Respiratory:? Coarse breath sounds bilaterally, decreased at bases, no wheezing, adequate air entry Cardiac:? S1-S2 normal, regular rate and rhythm Abdomen:? Soft, nontender, obese, hypoactive bowel sounds, left lower quadrant drain in place with purulent drainage Extremities:? Trace edema, palpable pedal pulse Neuro:? Patient remains on Precedex infusion, does not want open her eyes or follow simple commands Skin:? No skin lesions noted Const: General: comfortable and no acute distress Other: , female, elderly, disheveled. Nontoxic appearance. HENMT: Face/Nose/Sinus: Normal nares present Mouth: Yes moist mucous membranes Eyes: General: appearance normal, both eyes and all related structures Sclera: sclerae normal Pupils: Equal, round and reactive pupils present EOM: EOMs intact bilaterally Resp: Effort & Inspection: normal respiratory effort Auscultation: clear to auscultation bilaterally Cardio: Rate: regular rate Rhythm: regular rhythm Other: S1-S2 present without murmur, rub, ectopy GI: Other: tender in the lower quadrants. hyperactive bowel sounds in the upper quadrants, normoactive in the lower. Nondistended, soft. Skin: General skin exam: normal color and no rashes or lesions noted Wounds: no wounds Neuro: Cranial nerves: Yes Equal, round and reactive pupils present Speech: normal speech Motor exam (neuro): 5/5 motor strength present throughout Sensory Exam: normal sensation Other: A&O x4 Extrem: General: normal to inspection Psych: Mental Status: mental status grossly normal Affect: normal affect Other: Malodorous, disheveled. Fair insight and judgment, pleasant. Objective Data Vital Signs Vital Signs: Vital Signs - 24 hr 02/06/25 10:28 02/06/25 11:02 02/06/25 11:02 Temperature Pulse Rate 80 92 92 Respiratory Rate 21 H 21 H Blood Pressure Pulse Oximetry 97 Oxygen Delivery Mechanical Ventilation Oxygen Flow Rate Fraction of Inspired Oxygen 30 02/06/25 12:00 02/06/25 12:00 02/06/25 12:00 Temperature 99.3 F Pulse Rate 100 93 Respiratory Rate 23 H 16 Blood Pressure 148/77 H Pulse Oximetry 96 Oxygen Delivery Mechanical Ventilation Oxygen Flow Rate Fraction of Inspired Oxygen 30 02/06/25 12:00 02/06/25 12:00 02/06/25 13:15 Temperature Pulse Rate 87 Respiratory Rate Blood Pressure Pulse Oximetry 96 Oxygen Delivery Nasal Cannula Oxygen Flow Rate 2 Fraction of Inspired Oxygen 30 02/06/25 13:27 02/06/25 13:35 02/06/25 14:00 Temperature 99.2 F Pulse Rate 99 98 87 Respiratory Rate 20 22 H 21 H Blood Pressure 134/94 H Pulse Oximetry 97 Oxygen Delivery Oxygen Flow Rate Fraction of Inspired Oxygen 02/06/25 14:00 02/06/25 14:00 02/06/25 14:30 Temperature Pulse Rate 89 87 82 Respiratory Rate 22 H 18 Blood Pressure Pulse Oximetry Oxygen Delivery Oxygen Flow Rate Fraction of Inspired Oxygen 02/06/25 14:58 02/06/25 14:58 02/06/25 15:00 Temperature Pulse Rate 77 77 89 Respiratory Rate 18 18 20 Blood Pressure Pulse Oximetry Oxygen Delivery Oxygen Flow Rate Fraction of Inspired Oxygen 02/06/25 15:30 02/06/25 15:43 02/06/25 16:00 Temperature 98.6 F Pulse Rate 73 84 Respiratory Rate 22 H 20 Blood Pressure 148/85 H Pulse Oximetry 94 97 Oxygen Delivery Nasal Cannula Oxygen Flow Rate 2 Fraction of Inspired Oxygen 02/06/25 16:00 02/06/25 16:00 02/06/25 17:09 Temperature Pulse Rate 84 78 80 Respiratory Rate 19 25 H Blood Pressure Pulse Oximetry Oxygen Delivery Oxygen Flow Rate Fraction of Inspired Oxygen 02/06/25 17:40 02/06/25 18:00 02/06/25 18:00 Temperature 98.4 F Pulse Rate 86 88 80 Respiratory Rate 18 19 Blood Pressure 151/88 H Pulse Oximetry 96 Oxygen Delivery Oxygen Flow Rate Fraction of Inspired Oxygen 02/06/25 18:15 02/06/25 19:22 02/06/25 19:22 Temperature Pulse Rate 85 81 81 Respiratory Rate 25 H 23 H 23 H Blood Pressure Pulse Oximetry Oxygen Delivery Oxygen Flow Rate Fraction of Inspired Oxygen 02/06/25 20:00 02/06/25 20:00 02/06/25 20:00 Temperature 98.5 F Pulse Rate 77 77 74 Respiratory Rate 18 18 Blood Pressure 160/88 H Pulse Oximetry 96 Oxygen Delivery Oxygen Flow Rate Fraction of Inspired Oxygen 02/06/25 20:00 02/06/25 20:25 02/06/25 20:29 Temperature Pulse Rate 73 90 Respiratory Rate 24 H 26 H Blood Pressure Pulse Oximetry 96 Oxygen Delivery Nasal Cannula Oxygen Flow Rate 2 Fraction of Inspired Oxygen 02/06/25 20:30 02/06/25 20:53 02/06/25 22:00 Temperature Pulse Rate 71 98 Respiratory Rate 24 H 22 H Blood Pressure 122/74 Pulse Oximetry Oxygen Delivery Oxygen Flow Rate Fraction of Inspired Oxygen 02/06/25 22:00 02/06/25 22:00 02/06/25 22:30 Temperature 98.1 F Pulse Rate 97 97 78 Respiratory Rate 19 14 Blood Pressure 147/73 H Pulse Oximetry 93 Oxygen Delivery Oxygen Flow Rate Fraction of Inspired Oxygen 02/06/25 22:30 02/07/25 00:00 02/07/25 00:00 Temperature 98.2 F Pulse Rate 78 76 Respiratory Rate 14 21 H Blood Pressure 141/75 H Pulse Oximetry 96 96 Oxygen Delivery High Flow Therapy with Na Oxygen Flow Rate 45 Fraction of Inspired Oxygen 60 02/07/25 00:00 02/07/25 00:00 02/07/25 01:08 Temperature Pulse Rate 76 75 72 Respiratory Rate 21 H 22 H Blood Pressure Pulse Oximetry Oxygen Delivery Oxygen Flow Rate Fraction of Inspired Oxygen 02/07/25 01:56 02/07/25 01:56 02/07/25 02:00 Temperature Pulse Rate 70 70 70 Respiratory Rate 21 H 21 H 23 H Blood Pressure Pulse Oximetry Oxygen Delivery Oxygen Flow Rate Fraction of Inspired Oxygen 02/07/25 02:00 02/07/25 02:00 02/07/25 02:20 Temperature 98 F Pulse Rate 70 70 72 Respiratory Rate 23 H 17 Blood Pressure 141/77 H Pulse Oximetry 99 Oxygen Delivery Oxygen Flow Rate Fraction of Inspired Oxygen 02/07/25 02:36 02/07/25 04:00 02/07/25 04:00 Temperature 98 F Pulse Rate 70 66 66 Respiratory Rate 18 17 Blood Pressure 148/80 H Pulse Oximetry 98 Oxygen Delivery Oxygen Flow Rate Fraction of Inspired Oxygen 02/07/25 04:00 02/07/25 04:00 02/07/25 04:34 Temperature Pulse Rate 66 67 Respiratory Rate 18 17 Blood Pressure Pulse Oximetry 99 Oxygen Delivery High Flow Therapy with Na Oxygen Flow Rate 45 Fraction of Inspired Oxygen 45 02/07/25 04:34 02/07/25 06:00 02/07/25 06:00 Temperature Pulse Rate 67 65 65 Respiratory Rate 17 16 Blood Pressure Pulse Oximetry Oxygen Delivery Oxygen Flow Rate Fraction of Inspired Oxygen 02/07/25 06:00 02/07/25 07:06 02/07/25 07:06 Temperature 98.1 F Pulse Rate 65 64 64 Respiratory Rate 16 18 18 Blood Pressure 148/82 H Pulse Oximetry 99 Oxygen Delivery Oxygen Flow Rate Fraction of Inspired Oxygen 02/07/25 07:43 02/07/25 08:00 02/07/25 08:00 Temperature 98.3 F Pulse Rate 65 65 Respiratory Rate 20 18 Blood Pressure 155/85 H Pulse Oximetry 98 99 Oxygen Delivery High Flow Therapy with Na Oxygen Flow Rate 45 Fraction of Inspired Oxygen 45 02/07/25 08:00 02/07/25 08:10 02/07/25 08:10 Temperature Pulse Rate 65 64 Respiratory Rate 20 Blood Pressure Pulse Oximetry 99 Oxygen Delivery High Flow Therapy with Na Oxygen Flow Rate 45 Fraction of Inspired Oxygen 45 02/07/25 08:56 02/07/25 09:30 02/07/25 09:45 Temperature Pulse Rate 63 59 L 60 Respiratory Rate 18 18 18 Blood Pressure Pulse Oximetry Oxygen Delivery Oxygen Flow Rate Fraction of Inspired Oxygen 02/07/25 09:45 02/07/25 10:22 Temperature Pulse Rate 60 62 Respiratory Rate 18 18 Blood Pressure Pulse Oximetry Oxygen Delivery Oxygen Flow Rate Fraction of Inspired Oxygen Intake/Output Intake/Output: Intake & Output 02/04/25 02/05/25 02/06/25 02/07/25 23:59 23:59 23:59 23:59 Intake Total 2745.7 2218.9 2008.8 711.0 Output Total 0749 551 2779 835 Balance 1190.7 1393.9 -1096.2 -124.0 Meds/Results Medications: Active Medications Generic Name Dose Route Start Last Admin Trade Name Freq PRN Reason Stop Dose Admin Acetaminophen 650 mg 01/25/25 20:51 02/01/25 19:04 Acetaminophen 325 Mg Tablet PO 650 mg Q4H PRN Administration Headache Dextrose 12.5 gm 01/25/25 20:46 01/26/25 11:40 Dextrose 50% 25 Gm/50 Ml Syringe IV PUSH 12.5 gm PRN PRN Administration Hypoglycemia Protocol Glucagon 1 mg 01/25/25 20:46 Glucagon For Inj 1 Mg Vial IM PRN PRN Hypoglycemia Protocol Glucose 15 gm 01/25/25 20:46 Glucose Oral Gel 15 Gm Of Glucse In 37.5 Gm Tube PO PRN PRN Hypoglycemia Protocol Hydralazine HCl 10 mg 02/06/25 09:58 02/06/25 20:17 Hydralazine Hcl 20 Mg/Ml Vial IV PUSH 10 mg Q4H PRN Administration Blood Pressure - High Dextrose 1,000 mls @ 100 mls/hr 01/25/25 20:46 Dextrose 5% 1,000 Ml IVPB PRN PRN Hypoglycemia Protocol Meropenem 1 gm in 100 mls @ 200 mls/hr 01/29/25 13:00 02/07/25 06:40 IVPB Infused Q8HR KANDIS Infusion Metronidazole 500 mg in 100 mls @ 100 mls/hr 02/04/25 12:00 02/07/25 07:05 Flagyl 500 Mg/Iso Soln 100 Ml IVPB Infused Q6HR KANDIS Infusion Dexmedetomidine HCl 400 mcg in 100 mls @ 32.663 mls/hr 02/05/25 11:00 02/07/25 10:22 Precedex 400 Mcg/100 Ml IV CONT 1.1 mcg/kg/hr .Q3H4M KANDIS 27.64 mls/hr Titration Protocol 1.3 MCG/KG/HR Potassium Chloride 100 mls @ 25 mls/hr 02/07/25 06:30 02/07/25 06:38 Kcl 40 Meq/Water 100 Ml IVPB 02/07/25 10:29 25 mls/hr ONCE ONE Administration Insulin Aspart 4 - 8 units 02/02/25 18:00 02/07/25 06:13 Insulin Aspart (*Bkc) 100 Units/Ml SUB-Q 4 units Q6H KANDIS Administration Protocol Insulin Glargine 10 units 01/29/25 21:00 02/01/25 21:11 Insulin Glargine (*Bkc) 100 Units/Ml SUB-Q 10 units HS KANDIS Administration Insulin Glargine 20 units 02/06/25 07:55 02/07/25 08:43 Insulin Glargine (*Bkc) 100 Units/Ml SUB-Q 20 units DAILY KANDIS Administration Ipratropium [place] 0.5 mg 02/02/25 14:20 02/07/25 08:10 Ipratropium Br 0.02% Inh Soln 0.5 Mg/2.5 Ml Vial INHALATION 0.5 mg Q6HRT KANDIS Administration Lactobacillus Acidophilus 1 pkt 02/03/25 09:00 02/07/25 08:04 Acidophilus Packet 1 Pkt Packet PO Not Given QID KANDIS Levalbuterol HCl 0.63 mg 02/02/25 14:20 02/07/25 08:10 Levalbuterol Neb 1.25 Mg/3 Ml INHALATION 0.63 mg Q6HRT KANDIS Administration Midazolam HCl 2 mg 02/02/25 12:51 02/06/25 04:51 Midazolam Hcl (*Crx) 2 Mg/2 Ml Vial IV PUSH 2 mg PRN PRN Administration Sedation Morphine Sulfate 2 mg 02/06/25 20:59 02/06/25 21:07 Morphine Sulfate (*Crx) 2 Mg/Ml Inj IV PUSH 2 mg Q4H PRN Administration Pain Rated 7-10 Multi-Ingred Cream/Lotion/Oil/Oint 1 applic 02/02/25 21:00 02/07/25 08:56 Mineral Oil/White Petrolatum Ointment EACH EYE 1 applic Q12HR KANDIS Administration Ondansetron HCl 4 mg 01/25/25 20:51 02/06/25 22:13 Ondansetron Inj 4 Mg/2 Ml Vial IV PUSH 4 mg Q6H PRN Administration Nausea And Vomiting Pantoprazole Sodium 40 mg 02/04/25 21:00 02/07/25 08:42 Pantoprazole Sodium Iv 40 Mg Vial IV PUSH 40 mg Q12HR KANDIS Administration Sodium Chloride 10 ml 02/02/25 14:00 02/07/25 06:12 Central Line Flush IV PUSH 10 ml Q8HR KANDIS Administration Sodium Chloride 20 ml 02/02/25 13:47 02/03/25 21:40 Central Line Flush IV PUSH 20 ml PRN PRN Administration after blood draws Radiology Results: ITS Impressions Pelvis CT 01/26/25 14:17 IMPRESSION: 1. No significant change in a bilobed gas and fluid containing abscess in the deep pelvis. Patient canceled the planned percutaneous abscess drainage catheter placement due to discomfort despite attempts at repositioning. Abdomen/Pelvis CT 01/29/25 09:28 Impression: Stable large bilobed multilocular abscess in the pelvis extensively involving the distal sigmoid colon and rectum. Stable wall thickening of the distal sigmoid colon and rectum. Small right pleural effusion with right basilar atelectatic change. Cholelithiasis. Nephrolithiasis bilaterally, as detailed above. Catheter Placement CT 02/02/25 16:48 IMPRESSION: 1. Technically successful CT-guided drainage catheter placement with likely translocation and overwhelming sepsis following initial aspiration with subsequent cardiac and respiratory arrest. 2. 12-14 mL fluid was sent for aerobic and anaerobic cultures. Please see separate CODE BLUE flow sheet for additional details of the CODE BLUE portion of the case. Chest X-Ray 02/07/25 07:25 IMPRESSION: Bibasilar atelectasis versus pneumonia. Increased pleural effusion more on the right side. Abdomen X-Ray 02/07/25 08:16 IMPRESSION: NO ACUTE ABDOMINAL FINDINGS. Labs Labs: Laboratory Results - last 24 hr 02/06/25 02/06/25 02/06/25 11:16 17:57 20:22 WBC RBC Hgb Hct MCV MCH MCHC RDW Plt Count MPV Immature Gran % (Auto) Neut % (Auto) Lymph % (Auto) [place] % (Auto) Eos % (Auto) Baso % (Auto) Lymph # (Auto) [place] # (Auto) Eos # (Auto) Baso # (Auto) Abs Immat Gran (auto) Absolute Neuts (auto) Absolute Nucleated RBC Nucleated RBC % Puncture Site ABG pH ABG pCO2 ABG pO2 ABG PO2/FiO2 Ratio ABG HCO3 ABG O2 Saturation ABG O2 Content ABG Base Excess A-a Gradient Oxyhemoglobin Carboxyhemoglobin Methemoglobin Reduced Hemoglobin Total Hemoglobin O2 Delivery Device O2 Liters/Min FiO2 Sodium Potassium Chloride Carbon Dioxide Anion Gap BUN Creatinine Estim Creat Clear Calc Estimated GFR Glucose POC Capillary Glucose 380 H 299 H 264 H Calcium Phosphorus Magnesium Total Bilirubin AST ALT Alkaline Phosphatase Total Protein Albumin 02/07/25 02/07/25 02/07/25 00:06 04:44 05:11 WBC 14.2 H RBC 3.45 L Hgb 8.7 L Hct 27.9 L MCV 80.9 MCH 25.2 L MCHC 31.2 L RDW 18.0 H Plt Count 162 MPV 10.5 H Immature Gran % (Auto) 0.5 Neut % (Auto) 89.1 H Lymph % (Auto) 6.0 L [place] % (Auto) 4.3 Eos % (Auto) 0.0 Baso % (Auto) 0.1 L Lymph # (Auto) 0.85 L [place] # (Auto) 0.6 Eos # (Auto) 0.0 Baso # (Auto) 0.0 Abs Immat Gran (auto) 0.07 H Absolute Neuts (auto) 12.7 H Absolute Nucleated RBC 0.000 Nucleated RBC % 0.0 Puncture Site Right radial ABG pH 7.489 H ABG pCO2 45.3 H ABG pO2 86.2 ABG PO2/FiO2 Ratio 1.92 ABG HCO3 33.7 H ABG O2 Saturation 97.1 ABG O2 Content 12.6 L ABG Base Excess 9.3 A-a Gradient 183.1 Oxyhemoglobin 95.5 Carboxyhemoglobin 0.7 Methemoglobin 0.3 Reduced Hemoglobin 3.5 Total Hemoglobin 9.3 L O2 Delivery Device High flow nasal madhuri O2 Liters/Min 45.0 FiO2 45 Sodium 146 H Potassium 2.7 L* Chloride 105 Carbon Dioxide 34 H Anion Gap 7 BUN 48 H Creatinine 0.83 Estim Creat Clear Calc 62 Estimated GFR > 60 Glucose 248 H POC Capillary Glucose 307 H Calcium 8.2 L Phosphorus 3.0 Magnesium 2.1 Total Bilirubin 0.9 AST 13 L ALT 15 Alkaline Phosphatase 89 Total Protein 6.0 L Albumin 2.5 L 02/07/25 06:11 WBC RBC Hgb Hct MCV MCH MCHC RDW Plt Count MPV Immature Gran % (Auto) Neut % (Auto) Lymph % (Auto) [place] % (Auto) Eos % (Auto) Baso % (Auto) Lymph # (Auto) [place] # (Auto) Eos # (Auto) Baso # (Auto) Abs Immat Gran (auto) Absolute Neuts (auto) Absolute Nucleated RBC Nucleated RBC % Puncture Site ABG pH ABG pCO2 ABG pO2 ABG PO2/FiO2 Ratio ABG HCO3 ABG O2 Saturation ABG O2 Content ABG Base Excess A-a Gradient Oxyhemoglobin Carboxyhemoglobin Methemoglobin Reduced Hemoglobin Total Hemoglobin O2 Delivery Device O2 Liters/Min FiO2 Sodium Potassium Chloride Carbon Dioxide Anion Gap BUN Creatinine Estim Creat Clear Calc Estimated GFR Glucose POC Capillary Glucose 220 H Calcium Phosphorus Magnesium Total Bilirubin AST ALT Alkaline Phosphatase Total Protein Albumin Quality VTE Prophylaxis VTE prophylaxis: pharmacologic ordered
--- NOTE | 2025-02-07 11:16 | PCSTNOTE ---
Please refer to the Bedside Swallow Evaluation in the EMR. Please note, silent aspiration cannot be ruled out at bedside.
[2025-02-07 11:34] LABS: Glucose Point of Care 205 mg/dl (65-105)
[2025-02-07 11:38] LABS: Anion Gap 8 mmol/L (4-12); Blood Urea Nitrogen 48 mg/dL (7-17); Calcium 8.3 mg/dL (8.4-10.2); Carbon Dioxide 33 mmol/L (22-30); Chloride 106 mmol/L (98-107); Estimated CRCL calculation 72 ml/min; Estimated Glomerular Filt Rate > 60; Glucose 201 mg/dL (65-110); Iron 36 ug/dL (37-170); Potassium 3.5 mmol/L (3.4-5.0); Sodium 147 mmol/L (137-145)
[2025-02-07 11:54] LABS: Percent Iron Saturation 18 % (20-50)
[2025-02-07] MEDS: FLUTICASONE PROPIONATE 0.05% NA SPR 16 GM BTL (*BKC) 1 SPRAY NASAL (13:14)
[2025-02-07] MEDS: dexmedeTOMIDine 400 MCG/100 ML 400 MCG/100 ML BAG 7.54 MCG IV CONT (14:00)
[2025-02-07 17:04] LABS: Glucose Point of Care 127 mg/dl (65-105)
[2025-02-07] MEDS: FUROSEMIDE INJ 40 MG/4 ML VIAL IV PUSH (17:05)
[2025-02-07] MEDS: MORPHINE SULFATE (*CRX) 2 MG/ML INJ IV PUSH ×2 (17:17→21:19)
[2025-02-07] MEDS: MIDAZOLAM HCL (*CRX) 2 MG/2 ML VIAL IV PUSH (21:20)
[2025-02-07] MEDS: hydrALAZINE HCL 20 MG/ML VIAL 10 MG IV PUSH (23:18)
[2025-02-07 23:27] LABS: Glucose Point of Care 118 mg/dl (65-105)
[2025-02-08] VITALS (29 sets, daily range): BP systolic 135–174; BP diastolic 60–88; PULSE 77–92; RESP 10–23; TEMP 36.2–36.8; O2SAT 94–100; BMI 36.6
[2025-02-08 05:07] LABS: Base Excess ABG 9.3 mEq/l (+/-2.0); Carboxyhemoglobin 0.8 % THb (0-2.0); Fractional Inspired Oxygen 34 %; HCO3 ABG 33.4 mEq/l (22.0-26.0); Methemoglobin ABG 0.3 %THb (0-1.5); Oxygen Content ABG 13.3 %vol (16.0-22.0); Oxygen Saturation ABG 95.6 % (95.0-100.0); Oxyhemoglobin 94.2 % THb (90.0-100.0); PCO2 ABG 43.8 mmHg (35.0-45.0); PO2 ABG 72.4 mmHg (80.0-100.0); PO2 FiO2 Ratio Arterial Blood 2.13 %; Reduced Hemoglobin 4.7 %THb (0-5.0)
[2025-02-08 05:10] LABS: Device HIGH FLOW NASAL CANN; Modified Allen's Test Pass; Site Drawn RIGHT RADIAL
[2025-02-08] MEDS: MEROPENEM 1 GM/NS 100 ML 1 GM/100 ML BAG IVPB ×3 (05:11→21:00)
[2025-02-08] MEDS: metroNIDAZOLE 500 MG/ISO 100ML 500 MG/100 ML BAG 100 MG IVPB ×3 (05:11→17:49)
[2025-02-08] MEDS: CENTRAL LINE FLUSH 10 ML IV PUSH ×3 (05:12→21:01)
[2025-02-08] MEDS: hydrALAZINE HCL 20 MG/ML VIAL 10 MG IV PUSH ×2 (05:14→16:30)
[2025-02-08 05:24] LABS: Glucose Point of Care 123 mg/dl (65-105)
[2025-02-08 06:24] LABS: Basophils Percent Auto 0.2 % (0.2-1.2); Eosinophils Percent Auto 0.2 % (0-4.4); Hematocrit 31.3 % (37.0-47.0); Hemoglobin 9.3 g/dL (12.0-15.0); Immature Granulocyte Absolute 0.16 K/mm3 (0.00-0.031); Immature Granulocyte Percent A 0.8 % (0-0.5); Lymphocytes Absolute Auto 0.75 K/mm3 (0.9-3.2); Lymphocytes Percent Auto 3.5 % (18.3-44.2); Mean Corpuscular HGB Conc 29.7 g/dl (32-36); Mean Corpuscular Hemoglobin 24.6 pg (26-34); Mean Corpuscular Volume 82.8 fl (80-100); Mean Platelet Volume 10.4 fl (7.4-10.4); Monocytes Absolute Auto 0.7 K/mm3 (0.1-0.6); Monocytes Percent Auto 3.2 % (2.6-8.5); Neutrophils Absolute Auto 19.5 K/mm3 (1.3-6.7); Neutrophils Percent Auto 92.1 % (45.5-73.1); Platelet Count Result 217 k/mm3 (150-375); Red Blood Count 3.78 M/mm3 (4.2-5.4); Red Cell Distribution Width 18.3 % (11.5-14.5); White Blood Count 21.2 K/mm3 (4.5-10.0)
[2025-02-08 06:56] LABS: Hypochromasia 1+; Platelet Estimate Adequate (Adequate); Polychromasia 1+; Schistocytes None Seen; Target Cells 1+
[2025-02-08 07:15] LABS: Alanine Aminotransferase 15 U/L (6-35); Albumin Level 2.5 g/dL (3.5-5.1); Alkaline Phosphatase 93 U/L (38-126); Anion Gap 4 mmol/L (4-12); Aspartate Amino Transferase 18 U/L (14-36); Bilirubin,Total 1.5 mg/dL (0.2-1.3); Blood Urea Nitrogen 48 mg/dL (7-17); Calcium 8.4 mg/dL (8.4-10.2); Carbon Dioxide 35 mmol/L (22-30); Chloride 109 mmol/L (98-107); Estimated CRCL calculation 78 ml/min; Estimated Glomerular Filt Rate > 60; Glucose 128 mg/dL (65-110); Phosphorus 3.1 mg/dL (2.5-4.5); Sodium 148 mmol/L (137-145)
--- NOTE | 2025-02-08 08:01 | P.PNINT_ITS ---
Progress Note: A&P Assessment and Plan (1) Cardiac arrest: Code(s): I46.9 - Cardiac arrest, cause unspecified Status: Acute Assessment and Plan: Patient had a cardiac arrest after placement of a percutaneous drain in the pelvic abscess. Could be related to vasovagal, translocation of bacteria, hypoxia as patient was laying flat, hypovolemia, acidosis -successful ROSC x2, intubated in the CT scan suite by ER physician -patient did follow commands post code a continue, so not a candidate for targeted temperature management -will continue to treat underlying cause (2) Septic shock: Code(s): A41.9 - Sepsis, unspecified organism; R65.21 - Severe sepsis with septic shock Status: Acute Assessment and Plan: 02/01:In the ICU patient dropped her blood pressures -patient has been adequately fluid-resuscitated with IV fluids and albumin -01/25: Blood cultures negative x2 -02/02: repeat blood cultures -growing E coli (pansensitive) and Clostridium ramosum -02/02: Abscess fluid culture growing E coli and Bacteroides fragilis 02/03: WBC count up to 64, could be related to septic shock, infection, leukomoid reaction, steroids. Will continue to monitor -WBC count is trending down, patient is afebrile, continue to monitor --continue meropenem, Flagyl 02/04: Discontinue vancomycin -continue doxycycline for 5 days - weaning stress dose steroid -off all pressors (patient was on Levophed, Bobo-Synephrine and vasopressin) -WBC count trending down 02/04: Repeat blood cultures growing Clostridium ramosum, bacteroids fragilis (3) Acute respiratory failure: Qualifiers: Respiratory failure complication: hypoxia Qualified Code(s): J96.01 - Acute respiratory failure with hypoxia Code(s): J96.00 - Acute respiratory failure, unspecified whether with hypoxia or hypercapnia Status: Acute Assessment and Plan: Acute respiratory failure likely related to cardiac arrest possible from septic shock, infection, hypovolemia, translocation of bacteria, acidosis, hypoxia -patient intubated in the CT scan suite by ER physician -02/06: Extubated Accidentally coughed upper ETT was he was on pressure support ventilation 10/5 for approximately 3 hours and 40 minutes -chest x-ray and ABGs reviewed -Moderate bilateral pleural effusions with bib asilar pulmonary edema/atelectasis. -continue Xopenex and Atrovent nebulizer -OFF Precedex infusion, -diuresed well with Lasix on 02/06, 02/07 -02/08: will diurese again today after placing potassium -Currently on Airvo 45% FiO2 and 45 L flow rate -have asked respiratory therapist to place patient on high-flow nasal cannula (4) Intra-abdominal abscess: Code(s): K65.1 - Peritoneal abscess Status: Acute Assessment and Plan: Intra-abdominal abscess, status post percutaneous IR drain placement on 02/01/2025 -draining purulent material, cultures as above -surgery is following the patient -continue antibiotics as above (5) Diabetes 1.5, managed as type 2: Code(s): E13.9 - Other specified diabetes mellitus without complications Status: Acute Assessment and Plan: Continue Accu-Cheks and sliding scale insulin -will discontinue Lantus for now as patient is NPO, off a stress dose steroid (6) Hypertension: Qualifiers: Hypertension type: unspecified Qualified Code(s): I10 - Essential (primary) hypertension Code(s): I10 - Essential (primary) hypertension Status: Acute Assessment and Plan: Patient just came off pressors, continue to hold antihypertensives for now -continue p.r.n. hydralazine IV -once patient starts taking p.o. with will add her home antihypertensive (7) Anemia: Qualifiers: Anemia type: other cause Other causes of anemia: chronic disease, other Qualified Code(s): D63.8 - Anemia in other chronic diseases classified elsewhere Code(s): D64.9 - Anemia, unspecified Status: Acute Assessment and Plan: 02/03: Hemoglobin dropped to 6.3. -will transfuse 1 unit of packed RBC -hemoglobin stable -02/05: hemoglobin dropped to 7.0 -status post 1 unit of packed RBC -iron panel reflective of iron deficiency anemia and/or anemia of chronic disease -folic acid and vitamin B12 levels within normal limits -stool occult was positive -appreciate GI evaluation and recommendations -hemoglobin is stable, continue to monitor Plan DVT prophylaxis: Will restart Lovenox Stress ulcer prophylaxis: Protonix IV q.12 hours Nutrition: Patient failed the speech swallow test on 02/07, modified barium swallow test today on 02/08 Code Status: Full code Critical Care Time Spent: 32 minutes Discussed with patient daughter Leslye, and updated with patient's condition and plan of care. I answered all her questions. Due to a high probability of clinically significant, life threatening deterioration, the patient required my highest level of preparedness to inte rvene emergently and I personally spent this critical care time directly and personally managing the patient. This critical care time included obtaining a history; examining the patient; pulse oximetry; ordering and review of studies; arranging urgent treatment with development of a management plan; evaluation of patient's response to treatment; frequent reassessment; and discussions with other providers. It was exclusive of separately billable procedures and treating other patients and teaching time. Please see Assessment and Plan section and the rest of the note for further information on patient assessment and treatment This dictation may have been done utilizing a voice recognition system. Attempts have been made to correct errors. However, there may be uncorrected grammatical, spelling, and recognitions errors present. Subjective Date/time seen: 02/08/25 08:01 Interval history: Reason for consult: Cardiac arrest, acute respiratory failure, abdominal abscess, sepsis 02/08/2025: Patient seen and examined the ICU, remains on high-flow therapy, 30% FiO2 [place] 5% flow rate. She is off Precedex, more awake, able to answer questions appropriately and follows simple commands. She is motivated to work with PT/OT. Potassium was 3.0 this this morning, have asked the bedside nurse to replace potassium. Diuresed very well in response to diuretics with negative 1560 mL in fluid balance in 24 hours. Afebrile, hemodynamically stable, currently in sinus rhythm, rate controlled. Denies any chest pain, shortness a breath, abdominal pain, nausea, vomiting at this time. Patient does not have any complaints Review of Systems Review of Systems: All systems reviewed & are unremarkable except as noted in HPI and below Exam Narrative: General: Obese female, currently in no acute distress HEENT:? Pupils equal and reactive, sclera is clear, Airvo in place Neck:? Supple Respiratory:? Coarse breath sounds bilaterally, decreased at bases, no wheezing, adequate air entry Cardiac:? S1-S2 normal, regular rate and rhythm Abdomen:? Soft, nontender, obese, hypoactive bowel sounds, left lower quadrant drain in place with purulent drainage Extremities:? Bilateral upper and lower extremity pitting edema Neuro:? Of Precedex. More awake, alert, able to answer questions, follows simple commands, Skin:? No skin lesions noted Psych:? Depressed affect Objective Data Vital Signs Vital Signs: Vital Signs - 24 hr 02/07/25 08:10 02/07/25 08:10 02/07/25 08:56 Temperature Pulse Rate 64 63 Respiratory Rate 20 18 Blood Pressure Pulse Oximetry 99 Oxygen Delivery High Flow Therapy with Na Oxygen Flow Rate 45 Fraction of Inspired Oxygen 45 02/07/25 09:30 02/07/25 09:45 02/07/25 09:45 Temperature Pulse Rate 59 L 60 60 Respiratory Rate 18 18 18 Blood Pressure Pulse Oximetry Oxygen Delivery Oxygen Flow Rate Fraction of Inspired Oxygen 02/07/25 10:00 02/07/25 10:00 02/07/25 10:22 Temperature 98.6 F Pulse Rate 61 61 62 Respiratory Rate 20 18 Blood Pressure 140/79 Pulse Oximetry 100 Oxygen Delivery Oxygen Flow Rate Fraction of Inspired Oxygen 02/07/25 10:57 02/07/25 12:00 02/07/25 12:00 Temperature 98.7 F Pulse Rate 56 L 63 63 Respiratory Rate 18 18 20 Blood Pressure 139/78 Pulse Oximetry 98 Oxygen Delivery Oxygen Flow Rate Fraction of Inspired Oxygen 02/07/25 12:00 02/07/25 12:00 02/07/25 13:15 Temperature Pulse Rate 62 60 Respiratory Rate 18 Blood Pressure Pulse Oximetry 98 Oxygen Delivery High Flow Therapy with Na Oxygen Flow Rate 40 Fraction of Inspired Oxygen 40 02/07/25 13:50 02/07/25 13:50 02/07/25 13:55 Temperature Pulse Rate 60 59 L Respiratory Rate 16 12 Blood Pressure Pulse Oximetry 98 Oxygen Delivery High Flow Therapy with Na Oxygen Flow Rate 40 Fraction of Inspired Oxygen 40 02/07/25 14:00 02/07/25 14:00 02/07/25 14:00 Temperature Pulse Rate 62 62 62 Respiratory Rate 18 18 Blood Pressure Pulse Oximetry Oxygen Delivery Oxygen Flow Rate Fraction of Inspired Oxygen 02/07/25 14:00 02/07/25 16:00 02/07/25 16:00 Temperature 98.6 F 98.4 F Pulse Rate 62 62 Respiratory Rate 12 12 Blood Pressure 123/70 132/70 Pulse Oximetry 98 98 98 Oxygen Delivery High Flow Therapy with Na Oxygen Flow Rate 40 Fraction of Inspired Oxygen 40 02/07/25 16:00 02/07/25 16:00 02/07/25 17:20 Temperature Pulse Rate 65 68 62 Respiratory Rate 18 16 Blood Pressure Pulse Oximetry Oxygen Delivery Oxygen Flow Rate Fraction of Inspired Oxygen 02/07/25 18:00 02/07/25 18:00 02/07/25 19:55 Temperature Pulse Rate 65 65 Respiratory Rate 14 Blood Pressure 132/68 Pulse Oximetry 97 98 Oxygen Delivery High Flow Therapy with Na Oxygen Flow Rate 40 Fraction of Inspired Oxygen 40 02/07/25 20:00 02/07/25 20:00 02/07/25 20:00 Temperature 97.6 F Pulse Rate 73 75 Respiratory Rate 24 H Blood Pressure 142/71 H Pulse Oximetry 98 97 Oxygen Delivery High Flow Therapy with Na Oxygen Flow Rate 40 Fraction of Inspired Oxygen 40 02/07/25 22:00 02/07/25 22:00 02/08/25 00:00 Temperature 98.1 F Pulse Rate 73 72 77 Respiratory Rate 22 H 22 H Blood Pressure 161/80 H 157/68 H Pulse Oximetry 98 96 Oxygen Delivery Oxygen Flow Rate Fraction of Inspired Oxygen 02/08/25 00:00 02/08/25 00:00 02/08/25 02:00 Temperature Pulse Rate 79 79 Respiratory Rate 22 H Blood Pressure 166/73 H Pulse Oximetry 96 95 Oxygen Delivery High Flow Therapy with Na Oxygen Flow Rate 40 Fraction of Inspired Oxygen 40 02/08/25 02:00 02/08/25 02:00 02/08/25 04:00 Temperature 98.3 F Pulse Rate 80 84 Respiratory Rate 10 L Blood Pressure 168/75 H Pulse Oximetry 94 95 Oxygen Delivery High Flow Therapy with Na Oxygen Flow Rate 35 Fraction of Inspired Oxygen 35 02/08/25 04:00 02/08/25 04:00 02/08/25 05:45 Temperature Pulse Rate 82 Respiratory Rate Blood Pressure Pulse Oximetry 96 94 Oxygen Delivery High Flow Therapy with Na High Flow Therapy with Na Oxygen Flow Rate 35 35 Fraction of Inspired Oxygen 30 30 02/08/25 06:00 02/08/25 06:00 02/08/25 07:50 Temperature 98.3 F Pulse Rate 92 92 Respiratory Rate 22 H Blood Pressure 152/76 H Pulse Oximetry 96 98 Oxygen Delivery High Flow Therapy with Na Oxygen Flow Rate 35 Fraction of Inspired Oxygen 30 02/08/25 07:55 Temperature Pulse Rate Respiratory Rate Blood Pressure Pulse Oximetry 98 Oxygen Delivery High Flow Nasal Cannula Oxygen Flow Rate 5 Fraction of Inspired Oxygen 40 Intake/Output Intake/Output: Intake & Output 02/05/25 02/06/25 02/07/25 02/08/25 23:59 23:59 23:59 23:59 Intake Total 2218.9 2008.8 1504.0 100 Output Total 825 3105 1495 1660 Balance 1393.9 -1096.2 9.0 -1560 Meds/Results Medications: Active Medications Generic Name Dose Route Start Last Admin Trade Name Freq PRN Reason Stop Dose Admin Acetaminophen 650 mg 01/25/25 20:51 02/01/25 19:04 Acetaminophen 325 Mg Tablet PO 650 mg Q4H PRN Administration Headache Dextrose 12.5 gm 01/25/25 20:46 01/26/25 11:40 Dextrose 50% 25 Gm/50 Ml Syringe IV PUSH 12.5 gm PRN PRN Administration Hypoglycemia Protocol Fluticasone Propionate 1 spray 02/07/25 11:00 02/07/25 13:14 Fluticasone Propionate 0.05% Na Spr 16 Gm Btl (*Bkc) NASAL 1 spray Q12HR KANDIS Administration Glucagon 1 mg 01/25/25 20:46 Glucagon For Inj 1 Mg Vial IM PRN PRN Hypoglycemia Protocol Glucose 15 gm 01/25/25 20:46 Glucose Oral Gel 15 Gm Of Glucse In 37.5 Gm Tube PO PRN PRN Hypoglycemia Protocol Hydralazine HCl 10 mg 02/06/25 09:58 02/08/25 05:14 Hydralazine Hcl 20 Mg/Ml Vial IV PUSH 10 mg Q4H PRN Administration Blood Pressure - High Dextrose 1,000 mls @ 100 mls/hr 01/25/25 20:46 Dextrose 5% 1,000 Ml IVPB PRN PRN Hypoglycemia Protocol Meropenem 1 gm in 100 mls @ 200 mls/hr 01/29/25 13:00 02/08/25 05:11 IVPB 200 mls/hr Q8HR KANDIS Administration Metronidazole 500 mg in 100 mls @ 100 mls/hr 02/04/25 12:00 02/08/25 05:11 Flagyl 500 Mg/Iso Soln 100 Ml IVPB 100 mls/hr Q6HR KANDIS Administration Dexmedetomidine HCl 400 mcg in 100 mls @ 0 mls/hr 02/05/25 11:00 02/07/25 21:34 Precedex 400 Mcg/100 Ml IV CONT Not Given .Q0M KANDIS Protocol 0 MCG/KG/HR Potassium Chloride 100 mls @ 25 mls/hr 02/08/25 07:45 Kcl 40 Meq/Water 100 Ml IVPB 02/08/25 11:44 ONCE ONE Insulin Aspart 4 - 8 units 02/02/25 18:00 02/08/25 05:14 Insulin Aspart (*Bkc) 100 Units/Ml SUB-Q Not Given Q6H [facility] Protocol Insulin Glargine 10 units 01/29/25 21:00 02/01/25 21:11 Insulin Glargine (*Bkc) 100 Units/Ml SUB-Q 10 units HS KANDIS Administration Insulin Glargine 20 units 02/06/25 07:55 02/07/25 08:43 Insulin Glargine (*Bkc) 100 Units/Ml SUB-Q 20 units DAILY KANDIS Administration Ipratropium [place] 0.5 mg 02/07/25 13:54 Ipratropium Br 0.02% Inh Soln 0.5 Mg/2.5 Ml Vial INHALATION Q6HRT PRN Wheezing Lactobacillus Acidophilus 1 pkt 02/03/25 09:00 02/07/25 12:15 Acidophilus Packet 1 Pkt Packet PO Not Given QID KANDIS Levalbuterol HCl 0.63 mg 02/07/25 13:54 Levalbuterol Neb 1.25 Mg/3 Ml INHALATION Q6HRT PRN Wheezing Midazolam HCl 2 mg 02/02/25 12:51 02/07/25 21:20 Midazolam Hcl (*Crx) 2 Mg/2 Ml Vial IV PUSH 2 mg PRN PRN Administration Sedation Morphine Sulfate 2 mg 02/06/25 20:59 02/07/25 21:19 Morphine Sulfate (*Crx) 2 Mg/Ml Inj IV PUSH 2 mg Q4H PRN Administration Pain Rated 7-10 Multi-Ingred Cream/Lotion/Oil/Oint 1 applic 02/02/25 21:00 02/07/25 20:17 Mineral Oil/White Petrolatum Ointment EACH EYE 1 applic Q12HR KANDIS Administration Ondansetron HCl 4 mg 01/25/25 20:51 02/06/25 22:13 Ondansetron Inj 4 Mg/2 Ml Vial IV PUSH 4 mg Q6H PRN Administration Nausea And Vomiting Pantoprazole Sodium 40 mg 02/04/25 21:00 02/07/25 20:48 Pantoprazole Sodium Iv 40 Mg Vial IV PUSH 40 mg Q12HR KANDIS Administration Sodium Chloride 10 ml 02/02/25 14:00 02/08/25 05:12 Central Line Flush IV PUSH 10 ml Q8HR KANDIS Administration Sodium Chloride 20 ml 02/02/25 13:47 02/03/25 21:40 Central Line Flush IV PUSH 20 ml PRN PRN Administration after blood draws Radiology Results: ITS Impressions Pelvis CT 01/26/25 14:17 IMPRESSION: 1. No significant change in a bilobed gas and fluid containing abscess in the deep pelvis. Patient canceled the planned percutaneous abscess drainage catheter placement due to discomfort despite attempts at repositioning. Abdomen/Pelvis CT 01/29/25 09:28 Impression: Stable large bilobed multilocular abscess in the pelvis extensively involving the distal sigmoid colon and rectum. Stable wall thickening of the distal sigmoid colon and rectum. Small right pleural effusion with right basilar atelectatic change. Cholelithiasis. Nephrolithiasis bilaterally, as detailed above. Catheter Placement CT 02/02/25 16:48 IMPRESSION: 1. Technically successful CT-guided drainage catheter placement with likely translocation and overwhelming sepsis following initial aspiration with subsequent cardiac and respiratory arrest. 2. 12-14 mL fluid was sent for aerobic and anaerobic cultures. Please see separate CODE BLUE flow sheet for additional details of the CODE BLUE portion of the case. Abdomen X-Ray 02/07/25 08:16 IMPRESSION: NO ACUTE ABDOMINAL FINDINGS. Chest X-Ray 02/08/25 06:49 Impression: Moderate bilateral pleural effusions with bibasilar pulmonary edema/atelectasis. Labs Labs: Laboratory Results - last 24 hr 02/07/25 02/07/25 02/07/25 11:18 11:30 17:02 WBC RBC Hgb Hct MCV MCH MCHC RDW Plt Count MPV Immature Gran % (Auto) Neut % (Auto) Lymph % (Auto) [place] % (Auto) Eos % (Auto) Baso % (Auto) Lymph # (Auto) [place] # (Auto) Eos # (Auto) Baso # (Auto) Abs Immat Gran (auto) Absolute Neuts (auto) Absolute Nucleated RBC Band Neutrophils % Nucleated RBC % Platelet Estimate Polychromasia Hypochromasia Target Cells Schistocytes Puncture Site ABG pH ABG pCO2 ABG pO2 ABG PO2/FiO2 Ratio ABG HCO3 ABG O2 Saturation ABG O2 Content ABG Base Excess A-a Gradient Oxyhemoglobin Carboxyhemoglobin Methemoglobin Reduced Hemoglobin Total Hemoglobin O2 Delivery Device O2 Liters/Min FiO2 Sodium 147 H Potassium 3.5 Chloride 106 Carbon Dioxide 33 H Anion Gap 8 BUN 48 H Creatinine 0.73 Estim Creat Clear Calc 72 Estimated GFR > 60 Glucose 201 H POC Capillary Glucose 205 H 127 H Calcium 8.3 L Phosphorus Magnesium Iron 36 L TIBC 201 L % Saturation 18 L Ferritin 76.10 Total Bilirubin AST ALT Alkaline Phosphatase Total Protein Albumin 02/07/25 02/08/25 02/08/25 23:17 05:05 05:13 WBC RBC Hgb Hct MCV MCH MCHC RDW Plt Count MPV Immature Gran % (Auto) Neut % (Auto) Lymph % (Auto) [place] % (Auto) Eos % (Auto) Baso % (Auto) Lymph # (Auto) [place] # (Auto) Eos # (Auto) Baso # (Auto) Abs Immat Gran (auto) Absolute Neuts (auto) Absolute Nucleated RBC Band Neutrophils % Nucleated RBC % Platelet Estimate Polychromasia Hypochromasia Target Cells Schistocytes Puncture Site Right radial ABG pH 7.500 H ABG pCO2 43.8 ABG pO2 72.4 L ABG PO2/FiO2 Ratio 2.13 ABG HCO3 33.4 H ABG O2 Saturation 95.6 ABG O2 Content 13.3 L ABG Base Excess 9.3 A-a Gradient 119.0 Oxyhemoglobin 94.2 Carboxyhemoglobin 0.8 Methemoglobin 0.3 Reduced Hemoglobin 4.7 Total Hemoglobin 10.0 L O2 Delivery Device High flow nasal madhuri O2 Liters/Min 35.0 FiO2 34 Sodium Potassium Chloride Carbon Dioxide Anion Gap BUN Creatinine Estim Creat Clear Calc Estimated GFR Glucose POC Capillary Glucose 118 H 123 H Calcium Phosphorus Magnesium Iron TIBC % Saturation Ferritin Total Bilirubin AST ALT Alkaline Phosphatase Total Protein Albumin 02/08/25 06:12 WBC 21.2 H RBC 3.78 L Hgb 9.3 L Hct 31.3 L MCV 82.8 MCH 24.6 L MCHC 29.7 L RDW 18.3 H Plt Count 217 MPV 10.4 Immature Gran % (Auto) 0.8 H Neut % (Auto) 92.1 H Lymph % (Auto) 3.5 L [place] % (Auto) 3.2 Eos % (Auto) 0.2 Baso % (Auto) 0.2 Lymph # (Auto) 0.75 L [place] # (Auto) 0.7 H Eos # (Auto) 0.0 Baso # (Auto) 0.0 Abs Immat Gran (auto) 0.16 H Absolute Neuts (auto) 19.5 H Absolute Nucleated RBC 0.000 Band Neutrophils % Not Reportable Nucleated RBC % 0.0 Platelet Estimate Adequate Polychromasia 1+ Hypochromasia 1+ Target Cells 1+ Schistocytes None seen Puncture Site ABG pH ABG pCO2 ABG pO2 ABG PO2/FiO2 Ratio ABG HCO3 ABG O2 Saturation ABG O2 Content ABG Base Excess A-a Gradient Oxyhemoglobin Carboxyhemoglobin Methemoglobin Reduced Hemoglobin Total Hemoglobin O2 Delivery Device O2 Liters/Min FiO2 Sodium 148 H Potassium 3.0 L Chloride 109 H Carbon Dioxide 35 H Anion Gap 4 BUN 48 H Creatinine 0.66 L Estim Creat Clear Calc 78 Estimated GFR > 60 Glucose 128 H POC Capillary Glucose Calcium 8.4 Phosphorus 3.1 Magnesium 2.0 Iron TIBC % Saturation Ferritin Total Bilirubin 1.5 H AST 18 ALT 15 Alkaline Phosphatase 93 Total Protein 6.0 L Albumin 2.5 L Quality VTE Prophylaxis VTE prophylaxis: pharmacologic ordered
[2025-02-08] MEDS: ENOXAPARIN 40 MG/0.4 ML SYRINGE SUB-Q (08:51)
[2025-02-08] MEDS: KCL 40 MEQ/WATER 100 ML 100 ML 25 ML IVPB ×3 (08:52→21:52)
[2025-02-08] MEDS: FLUTICASONE PROPIONATE 0.05% NA SPR 16 GM BTL (*BKC) 1 SPRAY NASAL ×2 (08:53→21:00)
[2025-02-08] MEDS: PANTOPRAZOLE SODIUM IV 40 MG VIAL IV PUSH ×2 (08:55→21:00)
[2025-02-08 11:20] LABS: Glucose Point of Care 139 mg/dl (65-105)
[2025-02-08] MEDS: FUROSEMIDE INJ 40 MG/4 ML VIAL IV PUSH (12:37)
[2025-02-08] MEDS: IPRATROPIUM BR 0.02% INH SOLN 0.5 MG/2.5 ML VIAL INHALATION ×2 (13:17→20:06)
[2025-02-08] MEDS: LEVALBUTEROL NEB 1.25 MG/3 ML 0.63 MG INHALATION ×2 (13:17→20:06)
--- NOTE | 2025-02-08 15:30 | P.PNGS_ITS ---
Progress Note: A&P Assessment and Plan (1) Intra-abdominal abscess: Code(s): K65.1 - Peritoneal abscess Status: Acute Assessment and Plan: exam completely benign, continue drain and antibiotics, repeat swallow in the next few days and may need NG for feeding, if white count continues to rise may need repeat CT Subjective Subjective Date/Time Seen: 02/08/25 15:30 Interval history: Feels okay, very weak, no abdominal pain Review of Systems Review of Systems: All systems reviewed & are unremarkable except as noted in HPI and below Exam Const: General: cooperative, no acute distress and ill appearing Resp: Auscultation: diminished lung sounds Cardio: Rate: regular rate Rhythm: regular rhythm GI: Inspection: normal to inspection and non-distended GI Palp: No abdominal tenderness and Yes Soft to palpation Other: drain with minimal serosanguineous drainage Objective Data Vital Signs Vital Signs: Vital Signs - 24 hr 02/07/25 16:00 02/07/25 16:00 02/07/25 16:00 Temperature 36.9 C Pulse Rate 62 65 Respiratory Rate 12 Blood Pressure 132/70 Pulse Oximetry 98 98 Oxygen Delivery High Flow Therapy with Na Oxygen Flow Rate 40 Fraction of Inspired Oxygen 40 02/07/25 16:00 02/07/25 17:20 02/07/25 18:00 Temperature Pulse Rate 68 62 65 Respiratory Rate 18 16 Blood Pressure Pulse Oximetry Oxygen Delivery Oxygen Flow Rate Fraction of Inspired Oxygen 02/07/25 18:00 02/07/25 19:55 02/07/25 20:00 Temperature 36.4 C Pulse Rate 65 73 Respiratory Rate 14 24 H Blood Pressure 132/68 142/71 H Pulse Oximetry 97 98 98 Oxygen Delivery High Flow Therapy with Na Oxygen Flow Rate 40 Fraction of Inspired Oxygen 40 02/07/25 20:00 02/07/25 20:00 02/07/25 22:00 Temperature Pulse Rate 75 73 Respiratory Rate 22 H Blood Pressure 161/80 H Pulse Oximetry 97 98 Oxygen Delivery High Flow Therapy with Na Oxygen Flow Rate 40 Fraction of Inspired Oxygen 40 02/07/25 22:00 02/08/25 00:00 02/08/25 00:00 Temperature 36.7 C Pulse Rate 72 77 Respiratory Rate 22 H Blood Pressure 157/68 H Pulse Oximetry 96 96 Oxygen Delivery High Flow Therapy with Na Oxygen Flow Rate 40 Fraction of Inspired Oxygen 40 02/08/25 00:00 02/08/25 02:00 02/08/25 02:00 Temperature Pulse Rate 79 79 Respiratory Rate 22 H Blood Pressure 166/73 H Pulse Oximetry 95 94 Oxygen Delivery High Flow Therapy with Na Oxygen Flow Rate 35 Fraction of Inspired Oxygen 35 02/08/25 02:00 02/08/25 04:00 02/08/25 04:00 Temperature 36.8 C Pulse Rate 80 84 Respiratory Rate 10 L Blood Pressure 168/75 H Pulse Oximetry 95 96 Oxygen Delivery High Flow Therapy with Na Oxygen Flow Rate 35 Fraction of Inspired Oxygen 30 02/08/25 04:00 02/08/25 05:45 02/08/25 06:00 Temperature 36.8 C Pulse Rate 82 92 Respiratory Rate 22 H Blood Pressure 152/76 H Pulse Oximetry 94 96 Oxygen Delivery High Flow Therapy with Na Oxygen Flow Rate 35 Fraction of Inspired Oxygen 30 02/08/25 06:00 02/08/25 07:50 02/08/25 07:55 Temperature Pulse Rate 92 Respiratory Rate Blood Pressure Pulse Oximetry 98 98 Oxygen Delivery High Flow Therapy with Na High Flow Nasal Cannula Oxygen Flow Rate 35 5 Fraction of Inspired Oxygen 30 40 02/08/25 08:00 02/08/25 08:00 02/08/25 08:12 Temperature 36.4 C Pulse Rate 87 86 Respiratory Rate 20 Blood Pressure 158/79 H Pulse Oximetry 98 98 Oxygen Delivery High Flow Nasal Cannula Oxygen Flow Rate 5 Fraction of Inspired Oxygen 02/08/25 09:21 02/08/25 09:58 02/08/25 10:00 Temperature Pulse Rate 87 Respiratory Rate Blood Pressure Pulse Oximetry 98 Oxygen Delivery High Flow Nasal Cannula High Flow Nasal Cannula Oxygen Flow Rate 5 5 Fraction of Inspired Oxygen 40 02/08/25 10:00 02/08/25 10:23 02/08/25 10:27 Temperature Pulse Rate 90 Respiratory Rate 19 Blood Pressure 174/78 H Pulse Oximetry 96 97 Oxygen Delivery Nasal Cannula High Flow Nasal Cannula Oxygen Flow Rate 4 4 Fraction of Inspired Oxygen 36 02/08/25 12:00 02/08/25 12:00 02/08/25 12:00 Temperature 36.2 C L Pulse Rate 86 86 Respiratory Rate 17 Blood Pressure 167/88 H Pulse Oximetry 99 98 Oxygen Delivery High Flow Nasal Cannula Oxygen Flow Rate 4 Fraction of Inspired Oxygen 02/08/25 13:17 02/08/25 13:17 02/08/25 13:32 Temperature Pulse Rate 85 85 Respiratory Rate 18 18 Blood Pressure Pulse Oximetry 98 Oxygen Delivery High Flow Nasal Cannula Oxygen Flow Rate 4 Fraction of Inspired Oxygen 36 02/08/25 14:00 02/08/25 14:00 Temperature 36.3 C L Pulse Rate 89 89 Respiratory Rate 19 Blood Pressure 174/87 H Pulse Oximetry 98 Oxygen Delivery Oxygen Flow Rate Fraction of Inspired Oxygen Intake/Output Intake/Output: Intake & Output 02/05/25 02/06/25 02/07/25 02/08/25 23:59 23:59 23:59 23:59 Intake Total 2218.9 2008.8 1504.0 500 Output Total 825 3105 1495 1910 Balance 1393.9 -1096.2 9.0 -1410 Meds/Results Medications: Active Medications Generic Name Dose Route Start Last Admin Trade Name Freq PRN Reason Stop Dose Admin Acetaminophen 650 mg 01/25/25 20:51 02/01/25 19:04 Acetaminophen 325 Mg Tablet PO 650 mg Q4H PRN Administration Headache Dextrose 12.5 gm 01/25/25 20:46 01/26/25 11:40 Dextrose 50% 25 Gm/50 Ml Syringe IV PUSH 12.5 gm PRN PRN Administration Hypoglycemia Protocol Enoxaparin Sodium 40 mg 02/08/25 09:00 02/08/25 08:51 Enoxaparin 40 Mg/0.4 Ml Syringe SUB-Q 40 mg DAILY KANDIS Administration Fluticasone Propionate 1 spray 02/07/25 11:00 02/08/25 08:53 Fluticasone Propionate 0.05% Na Spr 16 Gm Btl (*Bkc) NASAL 1 spray Q12HR KANDIS Administration Glucagon 1 mg 01/25/25 20:46 Glucagon For Inj 1 Mg Vial IM PRN PRN Hypoglycemia Protocol Glucose 15 gm 01/25/25 20:46 Glucose Oral Gel 15 Gm Of Glucse In 37.5 Gm Tube PO PRN PRN Hypoglycemia Protocol Hydralazine HCl 10 mg 02/06/25 09:58 02/08/25 05:14 Hydralazine Hcl 20 Mg/Ml Vial IV PUSH 10 mg Q4H PRN Administration Blood Pressure - High Dextrose 1,000 mls @ 100 mls/hr 01/25/25 20:46 Dextrose 5% 1,000 Ml IVPB PRN PRN Hypoglycemia Protocol Meropenem 1 gm in 100 mls @ 200 mls/hr 01/29/25 13:00 02/08/25 13:30 IVPB Infused Q8HR KANDIS Infusion Metronidazole 500 mg in 100 mls @ 100 mls/hr 02/04/25 12:00 02/08/25 13:40 Flagyl 500 Mg/Iso Soln 100 Ml IVPB Infused Q6HR KANDIS Infusion Potassium Chloride 100 mls @ 25 mls/hr 02/08/25 12:30 02/08/25 13:01 Kcl 40 Meq/Water 100 Ml IVPB 02/08/25 16:29 25 mls/hr ONCE ONE Administration Insulin Aspart 4 - 8 units 02/02/25 18:00 02/08/25 11:38 Insulin Aspart (*Bkc) 100 Units/Ml SUB-Q Not Given Q6H KANDIS Protocol Insulin Glargine 10 units 01/29/25 21:00 02/01/25 21:11 Insulin Glargine (*Bkc) 100 Units/Ml SUB-Q 10 units HS KANDIS Administration Insulin Glargine 20 units 02/06/25 07:55 02/07/25 08:43 Insulin Glargine (*Bkc) 100 Units/Ml SUB-Q 20 units DAILY KANDIS Administration Ipratropium [place] 0.5 mg 02/08/25 14:00 02/08/25 13:17 Ipratropium Br 0.02% Inh Soln 0.5 Mg/2.5 Ml Vial INHALATION 0.5 mg Q6HRT KANDIS Administration Lactobacillus Acidophilus 1 pkt 02/03/25 09:00 02/07/25 12:15 Acidophilus Packet 1 Pkt Packet PO Not Given QID KANDIS Levalbuterol HCl 0.63 mg 02/08/25 14:00 02/08/25 13:17 Levalbuterol Neb 1.25 Mg/3 Ml INHALATION 0.63 mg Q6HRT KANDIS Administration Ondansetron HCl 4 mg 01/25/25 20:51 02/06/25 22:13 Ondansetron Inj 4 Mg/2 Ml Vial IV PUSH 4 mg Q6H PRN Administration Nausea And Vomiting Pantoprazole Sodium 40 mg 02/08/25 09:00 02/08/25 08:55 Pantoprazole Sodium Iv 40 Mg Vial IV PUSH 40 mg Q12HR KANDIS Administration Sodium Chloride 10 ml 02/02/25 14:00 02/08/25 13:06 Central Line Flush IV PUSH 10 ml Q8HR KANDIS Administration Sodium Chloride 20 ml 02/02/25 13:47 02/03/25 21:40 Central Line Flush IV PUSH 20 ml PRN PRN Administration after blood draws Radiology Results: ITS Impressions Pelvis CT 01/26/25 14:17 IMPRESSION: 1. No significant change in a bilobed gas and fluid containing abscess in the deep pelvis. Patient canceled the planned percutaneous abscess drainage catheter placement due to discomfort despite attempts at repositioning. Abdomen/Pelvis CT 01/29/25 09:28 Impression: Stable large bilobed multilocular abscess in the pelvis extensively involving the distal sigmoid colon and rectum. Stable wall thickening of the distal sigmoid colon and rectum. Small right pleural effusion with right basilar atelectatic change. Cholelithiasis. Nephrolithiasis bilaterally, as detailed above. Catheter Placement CT 02/02/25 16:48 IMPRESSION: 1. Technically successful CT-guided drainage catheter placement with likely translocation and overwhelming sepsis following initial aspiration with subsequent cardiac and respiratory arrest. 2. 12-14 mL fluid was sent for aerobic and anaerobic cultures. Please see separate CODE BLUE flow sheet for additional details of the CODE BLUE portion of the case. Abdomen X-Ray 02/07/25 08:16 IMPRESSION: NO ACUTE ABDOMINAL FINDINGS. Chest X-Ray 02/08/25 06:49 Impression: Moderate bilateral pleural effusions with bibasilar pulmonary edema/atelectasis. Modified Barium Swallow 02/08/25 10:52 IMPRESSION: Pharyngeal dysphagia with laryngeal penetration and aspiration. Please correlate with speech pathologist findings and specific feeding recommen dations. Labs Labs: Laboratory Results - last 24 hr 02/07/25 02/07/25 02/08/25 17:02 23:17 05:05 WBC RBC Hgb Hct MCV MCH MCHC RDW Plt Count MPV Immature Gran % (Auto) Neut % (Auto) Lymph % (Auto) [place] % (Auto) Eos % (Auto) Baso % (Auto) Lymph # (Auto) [place] # (Auto) Eos # (Auto) Baso # (Auto) Abs Immat Gran (auto) Absolute Neuts (auto) Absolute Nucleated RBC Band Neutrophils % Nucleated RBC % Platelet Estimate Polychromasia Hypochromasia Target Cells Schistocytes Puncture Site Right radial ABG pH 7.500 H ABG pCO2 43.8 ABG pO2 72.4 L ABG PO2/FiO2 Ratio 2.13 ABG HCO3 33.4 H ABG O2 Saturation 95.6 ABG O2 Content 13.3 L ABG Base Excess 9.3 A-a Gradient 119.0 Oxyhemoglobin 94.2 Carboxyhemoglobin 0.8 Methemoglobin 0.3 Reduced Hemoglobin 4.7 Total Hemoglobin 10.0 L O2 Delivery Device High flow nasal madhuri O2 Liters/Min 35.0 FiO2 34 Sodium Potassium Chloride Carbon Dioxide Anion Gap BUN Creatinine Estim Creat Clear Calc Estimated GFR Glucose POC Capillary Glucose 127 H 118 H Calcium Phosphorus Magnesium Total Bilirubin AST ALT Alkaline Phosphatase Total Protein Albumin 02/08/25 02/08/25 02/08/25 05:13 06:12 11:17 WBC 21.2 H RBC 3.78 L Hgb 9.3 L Hct 31.3 L MCV 82.8 MCH 24.6 L MCHC 29.7 L RDW 18.3 H Plt Count 217 MPV 10.4 Immature Gran % (Auto) 0.8 H Neut % (Auto) 92.1 H Lymph % (Auto) 3.5 L [place] % (Auto) 3.2 Eos % (Auto) 0.2 Baso % (Auto) 0.2 Lymph # (Auto) 0.75 L [place] # (Auto) 0.7 H Eos # (Auto) 0.0 Baso # (Auto) 0.0 Abs Immat Gran (auto) 0.16 H Absolute Neuts (auto) 19.5 H Absolute Nucleated RBC 0.000 Band Neutrophils % Not Reportable Nucleated RBC % 0.0 Platelet Estimate Adequate Polychromasia 1+ Hypochromasia 1+ Target Cells 1+ Schistocytes None seen Puncture Site ABG pH ABG pCO2 ABG pO2 ABG PO2/FiO2 Ratio ABG HCO3 ABG O2 Saturation ABG O2 Content ABG Base Excess A-a Gradient Oxyhemoglobin Carboxyhemoglobin Methemoglobin Reduced Hemoglobin Total Hemoglobin O2 Delivery Device O2 Liters/Min FiO2 Sodium 148 H Potassium 3.0 L Chloride 109 H Carbon Dioxide 35 H Anion Gap 4 BUN 48 H Creatinine 0.66 L Estim Creat Clear Calc 78 Estimated GFR > 60 Glucose 128 H POC Capillary Glucose 123 H 139 H Calcium 8.4 Phosphorus 3.1 Magnesium 2.0 Total Bilirubin 1.5 H AST 18 ALT 15 Alkaline Phosphatase 93 Total Protein 6.0 L Albumin 2.5 L
--- NOTE | 2025-02-08 15:51 | PCSTNOTE ---
Please refer to the Modified Barium Swallow Evaluation in the EMR. The pt, from the ICU, was seen for a modified barium swallow (MBS). Pt recently coded and was intubated x4 days. She was extubated 1 day before this MBS. She was lethargic but able to sit upright for testing; she was seated for a lateral view and was presented with 5 ml of thin liquids via a spoon and 1/2 tsp of pudding consistency barium via a spoon. The oral stages were intact. During the pharyngeal stage, the following was exhibited: reduced tongue base retraction as evidenced by residue in the vallecula after the swallow; reduced laryngeal elevation as evidenced by laryngeal penetration during the swallow; and reduced laryngeal closure as evidenced by aspiration during the swallow. Weak and subtle cough reflex occurred after the pt aspirated the thin liquids which was not effective in clearing the aspiration; silent aspiration occurred with the pudding consistency. Pt was able to independently dry swallow and clear the vallecular residue. Study modification, such as the chin tuck, was not attempted due to pt not consistently following commands. Impressions: Severe dysphagia due to the instance of silent aspiration. Recommendations: NG tube for temporary nutrition; begin dysphagia therapy, repeat test in 4-5 days. Thank you for this referral.
[2025-02-08 17:20] LABS: Glucose Point of Care 151 mg/dl (65-105)
--- NOTE | 2025-02-08 17:30 | PC.NURSE ---
This patient, Bharti Neal, was transferred to [[facility] [place]] on 02/08/25 at 1730. Personal belongings sent with patient. Report given to [[facility] [place]]. Appropriate documentation sent with patient.
[2025-02-08 18:07] LABS: Anion Gap 5 mmol/L (4-12); Blood Urea Nitrogen 52 mg/dL (7-17); Calcium 8.2 mg/dL (8.4-10.2); Carbon Dioxide 36 mmol/L (22-30); Chloride 109 mmol/L (98-107); Estimated CRCL calculation 78 ml/min; Estimated Glomerular Filt Rate > 60; Glucose 153 mg/dL (65-110); Potassium 3.7 mmol/L (3.4-5.0); Sodium 150 mmol/L (137-145)
[2025-02-08] MEDS: FUROSEMIDE INJ 40 MG/4 ML VIAL 20 MG IV PUSH (18:59)
[2025-02-09] VITALS (26 sets, daily range): BP systolic 117–160; BP diastolic 53–79; PULSE 87–149; RESP 16–22; TEMP 36.5–37; O2SAT 94–100
[2025-02-09 00:20] LABS: Glucose Point of Care 135 mg/dl (65-105)
[2025-02-09] MEDS: metroNIDAZOLE 500 MG/ISO 100ML 500 MG/100 ML BAG 100 MG IVPB ×5 (01:03→23:56)
[2025-02-09] MEDS: LEVALBUTEROL NEB 1.25 MG/3 ML 0.63 MG INHALATION ×4 (01:58→20:01)
[2025-02-09] MEDS: IPRATROPIUM BR 0.02% INH SOLN 0.5 MG/2.5 ML VIAL INHALATION ×4 (01:58→20:01)
[2025-02-09 06:29] LABS: Basophils Percent Auto 0.1 % (0.2-1.2); Hematocrit 29.5 % (37.0-47.0); Hemoglobin 8.7 g/dL (12.0-15.0); Immature Granulocyte Absolute 0.09 K/mm3 (0.00-0.031); Immature Granulocyte Percent A 0.7 % (0-0.5); Lymphocytes Absolute Auto 0.55 K/mm3 (0.9-3.2); Lymphocytes Percent Auto 4.1 % (18.3-44.2); Mean Corpuscular HGB Conc 29.5 g/dl (32-36); Mean Corpuscular Hemoglobin 24.8 pg (26-34); Mean Platelet Volume 10.7 fl (7.4-10.4); Monocytes Absolute Auto 0.6 K/mm3 (0.1-0.6); Monocytes Percent Auto 4.7 % (2.6-8.5); Neutrophils Absolute Auto 12.2 K/mm3 (1.3-6.7); Neutrophils Percent Auto 90.4 % (45.5-73.1); Platelet Count Result 235 k/mm3 (150-375); Red Blood Count 3.51 M/mm3 (4.2-5.4); Red Cell Distribution Width 19.1 % (11.5-14.5); White Blood Count 13.5 K/mm3 (4.5-10.0)
[2025-02-09 06:41] LABS: Alanine Aminotransferase 14 U/L (6-35); Albumin Level 2.4 g/dL (3.5-5.1); Alkaline Phosphatase 84 U/L (38-126); Anion Gap 3 mmol/L (4-12); Aspartate Amino Transferase 23 U/L (14-36); Bilirubin,Total 1.6 mg/dL (0.2-1.3); Blood Urea Nitrogen 54 mg/dL (7-17); Calcium 8.3 mg/dL (8.4-10.2); Carbon Dioxide 37 mmol/L (22-30); Chloride 110 mmol/L (98-107); Estimated CRCL calculation 67 ml/min; Estimated Glomerular Filt Rate > 60; Glucose 149 mg/dL (65-110); Magnesium 2.3 mg/dL (1.6-2.3); Phosphorus 3.5 mg/dL (2.5-4.5); Potassium 3.7 mmol/L (3.4-5.0); Sodium 150 mmol/L (137-145)
[2025-02-09 06:55] LABS: Anisocytosis 1+; Helmet Cells 1+; Hypochromasia 1+; Platelet Estimate Adequate (Adequate); Polychromasia 1+; Schistocytes None Seen; Target Cells 2+
[2025-02-09] MEDS: MEROPENEM 1 GM/NS 100 ML 1 GM/100 ML BAG IVPB ×3 (07:25→21:03)
--- NOTE | 2025-02-09 07:39 | P.PNIM_ITS ---
Progress Note: A&P Assessment and Plan (1) Cardiac arrest: Code(s): I46.9 - Cardiac arrest, cause unspecified Status: Acute Assessment and Plan: Patient had a cardiac arrest after placement of a percutaneous drain in the pelvic abscess. Could be related to vasovagal, translocation of bacteria, hypoxia as patient was laying flat, hypovolemia, acidosis -successful ROSC x2, intubated in the CT scan suite by ER physician -patient did follow commands post code a continue, so not a candidate for targeted temperature management -will continue to treat underlying cause (2) Septic shock: Code(s): A41.9 - Sepsis, unspecified organism; R65.21 - Severe sepsis with septic shock Status: Acute Assessment and Plan: 02/01:In the ICU patient dropped her blood pressures -patient has been adequately fluid-resuscitated with IV fluids and albumin -01/25: Blood cultures negative x2 -02/02: repeat blood cultures -growing E coli (pansensitive) and Clostridium ramosum -02/02: Abscess fluid culture growing E coli and Bacteroides fragilis 02/03: WBC count up to 64, could be related to septic shock, infection, leukomoid reaction, steroids. Will continue to monitor -WBC count is trending down, patient is afebrile, continue to monitor --continue meropenem, Flagyl 02/04: Discontinue vancomycin -continue doxycycline for 5 days - weaning stress dose steroid -off all pressors (patient was on Levophed, Bobo-Synephrine and vasopressin) -WBC count trending down 02/04: Repeat blood cultures growing Clostridium ramosum, bacteroids fragilis 02/09: Repeat blood culture shows no growth (3) Acute respiratory failure: Qualifiers: Respiratory failure complication: hypoxia Qualified Code(s): J96.01 - Acute respiratory failure with hypoxia Code(s): J96.00 - Acute respiratory failure, unspecified whether with hypoxia or hypercapnia Status: Acute Assessment and Plan: Acute respiratory failure likely related to cardiac arrest possible from septic shock, infection, hypovolemia, translocation of bacteria, acidosis, hypoxia -patient intubated in the CT scan suite by ER physician -02/06: Extubated Accidentally coughed upper ETT was on pressure support ventilation 10/5 for approximately 3 hours and 40 minutes -chest x-ray and ABGs reviewed -Moderate bilateral pleural effusions with bibasilar pulmonary edema/atelectasis. -continue Xopenex and Atrovent nebulizer -OFF Precedex infusion, -diuresed well with Lasix on 02/06, 02/07 -02/08: will diurese again today after placing potassium -s/p on Airvo 45% FiO2 and 45 L flow rate -patient is currently on 2 L (4) Intra-abdominal abscess: Code(s): K65.1 - Peritoneal abscess Status: Acute Assessment and Plan: Intra-abdominal abscess, status post percutaneous IR drain placement on 02/01/2025 -draining purulent material, cultures as above -surgery is following the patient -continue antibiotics as above (5) Diabetes 1.5, managed as type 2: Code(s): E13.9 - Other specified diabetes mellitus without complications Status: Acute Assessment and Plan: Continue Accu-Cheks and sliding scale insulin -will discontinue Lantus for now as patient is NPO, off a stress dose steroid -will start nutrition through NG (6) Hypertension: Qualifiers: Hypertension type: unspecified Qualified Code(s): I10 - Essential (primary) hypertension Code(s): I10 - Essential (primary) hypertension Status: Acute Assessment and Plan: Patient just came off pressors, continue to hold antihypertensives for now -continue p.r.n. hydralazine IV -once patient starts taking p.o. with will add her home antihypertensive (7) Anemia: Qualifiers: Anemia type: other cause Other causes of anemia: chronic disease, other Qualified Code(s): D63.8 - Anemia in other chronic diseases classified else where Code(s): D64.9 - Anemia, unspecified Status: Acute Assessment and Plan: 02/03: Hemoglobin dropped to 6.3. -will transfuse 1 unit of packed RBC -hemoglobin stable -02/05: hemoglobin dropped to 7.0 -status post 1 unit of packed RBC -iron panel reflective of iron deficiency anemia and/or anemia of chronic disease -folic acid and vitamin B12 levels within normal limits -stool occult was positive -appreciate GI evaluation and recommendations -hemoglobin is stable, continue to monitor (8) Hypernatremia: Code(s): E87.0 - Hyperosmolality and hypernatremia Status: Acute Assessment and Plan: Possibly due to dehydration Started D5W Subjective Date/time seen: 02/09/25 07:39 Interval history: Patient failed MBS. Patient underwent DH placement. Will start nutrition through NG tube. Review of Systems Review of Systems: All systems reviewed & are unremarkable except as noted in HPI and below ROS unobtainable: Yes unobtainable due to endotracheal tube, unobtainable due to medical condition and unobtainable due to mental status Exam Narrative: General: Obese female, currently in no acute distress HEENT:? Pupils equal and reactive, sclera is clear, Airvo in place Neck:? Supple Respiratory:? Coarse breath sounds bilaterally, decreased at bases, no wheezing, adequate air entry Cardiac:? S1-S2 normal, regular rate and rhythm Abdomen:? Soft, nontender, obese, hypoactive bowel sounds, left lower quadrant drain in place with purulent drainage Extremities:? Bilateral upper and lower extremity pitting edema Neuro:? Of Precedex. More awake, alert, able to answer questions, follows simple commands, Skin:? No skin lesions noted Psych:? Depressed affect Const: General: comfortable and no acute distress Other: , female, elderly, disheveled. Nontoxic appearance. HENMT: Face/Nose/Sinus: Normal nares present Mouth: Yes moist mucous membranes Eyes: General: appearance normal, both eyes and all related structures Sclera: sclerae normal Pupils: Equal, round and reactive pupils present EOM: EOMs intact bilaterally Resp: Effort & Inspection: normal respiratory effort Auscultation: clear to auscultation bilaterally Cardio: Rate: regular rate Rhythm: regular rhythm Other: S1-S2 present without murmur, rub, ectopy GI: Other: tender in the lower quadrants. hyperactive bowel sounds in the upper quadrants, normoactive in the lower. Nondistended, soft. Skin: General skin exam: normal color and no rashes or lesions noted Wounds: no wounds Neuro: Cranial nerves: Yes Equal, round and reactive pupils present Speech: normal speech Motor exam (neuro): 5/5 motor strength present throughout Sensory Exam: normal sensation Other: A&O x4 Extrem: General: normal to inspection Psych: Mental Status: mental status grossly normal Affect: normal affect Other: Malodorous, disheveled. Fair insight and judgment, pleasant. Objective Data Vital Signs Vital Signs: Vital Signs - 24 hr 02/08/25 07:50 02/08/25 07:55 02/08/25 08:00 Temperature Pulse Rate Respiratory Rate Blood Pressure Pulse Oximetry 98 98 98 Oxygen Delivery High Flow Therapy with Na High Flow Nasal Cannula High Flow Nasal Cannula Oxygen Flow Rate 35 5 5 Fraction of Inspired Oxygen 30 40 02/08/25 08:00 02/08/25 08:12 02/08/25 09:21 Temperature 97.6 F Pulse Rate 87 86 Respiratory Rate 20 Blood Pressure 158/79 H Pulse Oximetry 98 Oxygen Delivery High Flow Nasal Cannula Oxygen Flow Rate 5 Fraction of Inspired Oxygen 02/08/25 09:58 02/08/25 10:00 02/08/25 10:00 Temperature Pulse Rate 87 90 Respiratory Rate 19 Blood Pressure 174/78 H Pulse Oximetry 98 96 Oxygen Delivery High Flow Nasal Cannula Oxygen Flow Rate 5 Fraction of Inspired Oxygen 40 02/08/25 10:23 02/08/25 10:27 02/08/25 12:00 Temperature 97.1 F L Pulse Rate 86 Respiratory Rate 17 Blood Pressure 167/88 H Pulse Oximetry 97 99 Oxygen Delivery Nasal Cannula High Flow Nasal Cannula Oxygen Flow Rate 4 4 Fraction of Inspired Oxygen 36 02/08/25 12:00 02/08/25 12:00 02/08/25 13:17 Temperature Pulse Rate 86 Respiratory Rate Blood Pressure Pulse Oximetry 98 98 Oxygen Delivery High Flow Nasal Cannula High Flow Nasal Cannula Oxygen Flow Rate 4 4 Fraction of Inspired Oxygen 36 02/08/25 13:17 02/08/25 13:32 02/08/25 14:00 Temperature 97.3 F L Pulse Rate 85 85 89 Respiratory Rate 18 18 19 Blood Pressure 174/87 H Pulse Oximetry 98 Oxygen Delivery Oxygen Flow Rate Fraction of Inspired Oxygen 02/08/25 14:00 02/08/25 16:00 02/08/25 16:00 Temperature 97.6 F Pulse Rate 89 83 Respiratory Rate 17 Blood Pressure 160/82 H Pulse Oximetry 100 98 Oxygen Delivery High Flow Nasal Cannula Oxygen Flow Rate 4 Fraction of Inspired Oxygen 02/08/25 16:00 02/08/25 16:20 02/08/25 18:00 Temperature Pulse Rate 84 Respiratory Rate Blood Pressure 151/69 H Pulse Oximetry 100 Oxygen Delivery High Flow Nasal Cannula Oxygen Flow Rate 4 Fraction of Inspired Oxygen 36 02/08/25 18:00 02/08/25 19:25 02/08/25 19:27 Temperature Pulse Rate 86 86 86 Respiratory Rate 17 Blood Pressure Pulse Oximetry 100 Oxygen Delivery High Flow Nasal Cannula Oxygen Flow Rate 3 Fraction of Inspired Oxygen 02/08/25 20:07 02/08/25 20:09 02/08/25 20:10 Temperature 98.1 F Pulse Rate 88 86 Respiratory Rate 22 H 18 Blood Pressure 142/64 H Pulse Oximetry 98 98 Oxygen Delivery High Flow Nasal Cannula Oxygen Flow Rate 3 Fraction of Inspired Oxygen 32 02/08/25 20:16 02/08/25 22:00 02/08/25 23:54 Temperature 98.1 F Pulse Rate 88 88 88 Respiratory Rate 18 23 H Blood Pressure 135/60 Pulse Oximetry 98 Oxygen Delivery Oxygen Flow Rate Fraction of Inspired Oxygen 02/08/25 23:56 02/08/25 23:58 02/09/25 02:00 Temperature Pulse Rate 91 91 87 Respiratory Rate 23 H 18 Blood Pressure Pulse Oximetry 98 Oxygen Delivery Nasal Cannula Oxygen Flow Rate 3 Fraction of Inspired Oxygen 02/09/25 02:00 02/09/25 02:11 02/09/25 03:28 Temperature Pulse Rate 91 88 91 Respiratory Rate 18 18 Blood Pressure Pulse Oximetry 98 Oxygen Delivery Nasal Cannula Oxygen Flow Rate 3 Fraction of Inspired Oxygen 02/09/25 03:30 02/09/25 04:20 Temperature 97.7 F Pulse Rate 91 89 Respiratory Rate 22 H Blood Pressure 137/63 Pulse Oximetry 98 Oxygen Delivery Oxygen Flow Rate Fraction of Inspired Oxygen Intake/Output Intake/Output: Intake & Output 02/06/25 02/07/25 02/08/25 02/09/25 23:59 23:59 23:59 23:59 Intake Total 2008.8 1504.0 800 200 Output Total 3105 1495 3325 200 [facility] -1096.2 9.0 -2525 0 Meds/Results Medications: Active Medications Generic Name Dose Route Start Last Admin Trade Name Freq PRN Reason Stop Dose Admin Acetaminophen 650 mg 01/25/25 20:51 02/01/25 19:04 Acetaminophen 325 Mg Tablet PO 650 mg Q4H PRN Administration Headache Dextrose 12.5 gm 01/25/25 20:46 01/26/25 11:40 Dextrose 50% 25 Gm/50 Ml Syringe IV PUSH 12.5 gm PRN PRN Administration Hypoglycemia Protocol Enoxaparin Sodium 40 mg 02/08/25 09:00 02/08/25 08:51 Enoxaparin 40 Mg/0.4 Ml Syringe SUB-Q 40 mg DAILY KANDIS Administration Fluticasone Propionate 1 spray 02/07/25 11:00 02/08/25 21:00 Fluticasone Propionate 0.05% Na Spr 16 Gm Btl (*Bkc) NASAL 1 spray Q12HR KANDIS Administration Glucagon 1 mg 01/25/25 20:46 Glucagon For Inj 1 Mg Vial IM PRN PRN Hypoglycemia Protocol Glucose 15 gm 01/25/25 20:46 Glucose Oral Gel 15 Gm Of Glucse In 37.5 Gm Tube PO PRN PRN Hypoglycemia Protocol Hydralazine HCl 10 mg 02/06/25 09:58 02/08/25 16:30 Hydralazine Hcl 20 Mg/Ml Vial IV PUSH 10 mg Q4H PRN Administration Blood Pressure - High Dextrose 1,000 mls @ 100 mls/hr 01/25/25 20:46 Dextrose 5% 1,000 Ml IVPB PRN PRN Hypoglycemia Protocol Meropenem 1 gm in 100 mls @ 200 mls/hr 01/29/25 13:00 02/09/25 07:25 IVPB 100 mls/hr Q8HR KANDIS Administration Metronidazole 500 mg in 100 mls @ 100 mls/hr 02/04/25 12:00 02/09/25 06:15 Flagyl 500 Mg/Iso Soln 100 Ml IVPB 100 mls/hr Q6HR KANDIS Administration Insulin Aspart 4 - 8 units 02/02/25 18:00 02/09/25 07:13 Insulin Aspart (*Bkc) 100 Units/Ml SUB-Q Not Given Q6H [facility] Protocol Insulin Glargine 10 units 01/29/25 21:00 02/01/25 21:11 Insulin Glargine (*Bkc) 100 Units/Ml SUB-Q 10 units HS KANDIS Administration Insulin Glargine 20 units 02/06/25 07:55 02/07/25 08:43 Insulin Glargine (*Bkc) 100 Units/Ml SUB-Q 20 units DAILY KANDIS Administration Ipratropium [place] 0.5 mg 02/08/25 14:00 02/09/25 01:58 Ipratropium Br 0.02% Inh Soln 0.5 Mg/2.5 Ml Vial INHALATION 0.5 mg Q6HRT KANDIS Administration Lactobacillus Acidophilus 1 pkt 02/03/25 09:00 02/07/25 12:15 Acidophilus Packet 1 Pkt Packet PO Not Given QID KANDIS Levalbuterol HCl 0.63 mg 02/08/25 14:00 02/09/25 01:58 Levalbuterol Neb 1.25 Mg/3 Ml INHALATION 0.63 mg Q6HRT KANDIS Administration Ondansetron HCl 4 mg 01/25/25 20:51 02/06/25 22:13 Ondansetron Inj 4 Mg/2 Ml Vial IV PUSH 4 mg Q6H PRN Administration Nausea And Vomiting Pantoprazole Sodium 40 mg 02/08/25 09:00 02/08/25 21:00 Pantoprazole Sodium Iv 40 Mg Vial IV PUSH 40 mg Q12HR KANDIS Administration Sodium Chloride 10 ml 02/02/25 14:00 02/08/25 21:01 Central Line Flush IV PUSH 10 ml Q8HR KANDIS Administration Sodium Chloride 20 ml 02/02/25 13:47 02/03/25 21:40 Central Line Flush IV PUSH 20 ml PRN PRN Administration after blood draws Radiology Results: ITS Impressions Pelvis CT 01/26/25 14:17 IMPRESSION: 1. No significant change in a bilobed gas and fluid containing abscess in the deep pelvis. Patient canceled the planned percutaneous abscess drainage catheter placement due to discomfort despite attempts at repositioning. Abdomen/Pelvis CT 01/29/25 09:28 Impression: Stable large bilobed multilocular abscess in the pelvis extensively involving the distal sigmoid colon and rectum. Stable wall thickening of the distal sigmoid colon and rectum. Small right pleural effusion with right basilar atelectatic change. Cholelithiasis. Nephrolithiasis bilaterally, as detailed above. Catheter Placement CT 02/02/25 16:48 IMPRESSION: 1. Technically successful CT-guided drainage catheter placement with likely translocation and overwhelming sepsis following initial aspiration with subsequent cardiac and respiratory arrest. 2. 12-14 mL fluid was sent for aerobic and anaerobic cultures. Please see separate CODE BLUE flow sheet for additional details of the CODE BLUE portion of the case. Abdomen X-Ray 02/07/25 08:16 IMPRESSION: NO ACUTE ABDOMINAL FINDINGS. Chest X-Ray 02/08/25 06:49 Impression: Moderate bilateral pleural effusions with bibasilar pulmonary edema/atelectasis. Modified Barium Swallow 02/08/25 10:52 IMPRESSION: Pharyngeal dysphagia with laryngeal penetration and aspiration. Please correlate with speech pathologist findings and specific feeding recommendations. Labs Labs: Laboratory Results - last 24 hr 02/08/25 02/08/25 02/08/25 11:17 17:18 17:45 WBC RBC Hgb Hct MCV MCH MCHC RDW Plt Count MPV Immature Gran % (Auto) Neut % (Auto) Lymph % (Auto) [place] % (Auto) Eos % (Auto) Baso % (Auto) Lymph # (Auto) [place] # (Auto) Eos # (Auto) Baso # (Auto) Abs Immat Gran (auto) Absolute Neuts (auto) Absolute Nucleated RBC Band Neutrophils % Nucleated RBC % Platelet Estimate Polychromasia Hypochromasia Anisocytosis Target Cells Helmet Cells Schistocytes Sodium 150 H Potassium 3.7 Chloride 109 H Carbon Dioxide 36 H Anion Gap 5 BUN 52 H Creatinine 0.66 L Estim Creat Clear Calc 78 Estimated GFR > 60 Glucose 153 H POC Capillary Glucose 139 H 151 H Calcium 8.2 L Phosphorus Magnesium Total Bilirubin AST ALT Alkaline Phosphatase Total Protein Albumin 02/09/25 02/09/25 00:18 06:18 WBC 13.5 H RBC 3.51 L Hgb 8.7 L Hct 29.5 L MCV 84.0 MCH 24.8 L MCHC 29.5 L RDW 19.1 H Plt Count 235 MPV 10.7 H Immature Gran % (Auto) 0.7 H Neut % (Auto) 90.4 H Lymph % (Auto) 4.1 L [place] % (Auto) 4.7 Eos % (Auto) 0.0 Baso % (Auto) 0.1 L Lymph # (Auto) 0.55 L [place] # (Auto) 0.6 Eos # (Auto) 0.0 Baso # (Auto) 0.0 Abs Immat Gran (auto) 0.09 H Absolute Neuts (auto) 12.2 H Absolute Nucleated RBC 0.000 Band Neutrophils % Not Reportable Nucleated RBC % 0.0 Platelet Estimate Adequate Polychromasia 1+ Hypochromasia 1+ Anisocytosis 1+ Target Cells 2+ Helmet Cells 1+ Schistocytes None seen Sodium 150 H Potassium 3.7 Chloride 110 H Carbon Dioxide 37 H Anion Gap 3 L BUN 54 H Creatinine 0.78 Estim Creat Clear Calc 67 Estimated GFR > 60 Glucose 149 H POC Capillary Glucose 135 H Calcium 8.3 L Phosphorus 3.5 Magnesium 2.3 Total Bilirubin 1.6 H AST 23 ALT 14 Alkaline Phosphatase 84 Total Protein 6.0 L Albumin 2.4 L Quality VTE Prophylaxis VTE prophylaxis: pharmacologic ordered Hospitalist MIPS Advance Care Plan I have confirmed that the patient's Advanced Care Plan is present, code status is documented, or surrogate decision maker is listed in patient medical record.: Yes Medication Reconciliation I have utilized all available resources to obtain, update and review the patients current medications (includes all prescriptions, OTC, herbals, cannabis, and nutritional supplements).: Yes
[2025-02-09] MEDS: DEXTROSE 5% 1,000 ML 1,000 ML 50 ML IV CONT (08:39)
[2025-02-09] MEDS: ENOXAPARIN 40 MG/0.4 ML SYRINGE SUB-Q (08:42)
[2025-02-09] MEDS: PANTOPRAZOLE SODIUM IV 40 MG VIAL IV PUSH ×2 (08:42→21:03)
[2025-02-09] MEDS: FLUTICASONE PROPIONATE 0.05% NA SPR 16 GM BTL (*BKC) 1 SPRAY NASAL ×2 (08:42→21:03)
[2025-02-09] MEDS: CENTRAL LINE FLUSH 10 ML IV PUSH ×3 (08:56→21:03)
--- NOTE | 2025-02-09 11:42 | PCNFU ---
Nutrition Follow-Up Complete: Inadequate energy intake related to swallowing difficulty as evidenced by NPO Goal:Diet textures appropriate for patient needs - Pt NPO now due to failed MBS New goal - Meet estimated needs Pt current nutrition is NPO. Nutrition recommendation: initiate tube feedings to meet estimated needs Last recorded weight is 103 kg. Bowel Motility: +BM 5/6 Labs Reviewed: Hgb:8.7, HCT:29.5, Alb:2.4, BUN:54, Glu:149 Meds Noted: insulin, protonix Skin: WNL Additional Notes: Pt NPO, failed MBS, possible dobhoff placement today for nutrition support. Recommend Glucerna 1.2 @ 65ml/hr goal rate to provide 1716kcals, 85g protein, 1151ml free water. Recommend 100ml flush q 4 hrs for a total of 1751ml free water over 24hrs. This is sufficient to meet estimated needs Monitor swallowing ability, intake, wt, labs. Follow up in 1 day to check on tube feeding, Tuesdays and Saturday per protocol
--- NOTE | 2025-02-09 11:49 | PCDIET ---
Tube feeding recommendation: Glucerna 1.2 @ 65ml/hr GOAL rate - initiate tube feeding at 20ml/hr, advance by 10ml/hr q 4 hrs as tolerated to goal rate Recommend 100ml flush q 4 hrs for a total of 1751ml free water over 24hrs. Tube feeding to provide 1716kcals, 85g protein over 22 hrs.
[2025-02-09 12:09] LABS: Glucose Point of Care 164 mg/dl (65-105)
--- NOTE | 2025-02-09 13:49 | PM.PNGS ---
Progress Note: A&P Assessment and Plan (1) Intra-abdominal abscess: Code(s): K65.1 - Peritoneal abscess Status: Acute Assessment and Plan: Continue to monitor drain and antibiotics. WBC count trending down. Failed modified barium swallow yesterday, so Dobhoff has been ordered for tube feedings today. Okay to advance diet per dietitian's recommendations once feeding tube is in place. Plan I have discussed the patient's case and plan of care with Dr. Goins. Subjective Subjective Date/Time Seen: 02/09/25 13:49 Patient reports: no new complaints, flatus, bowel movement and afebrile Interval history: The patient was moved out of ICU. She is on 2 liters O2. She has no specific complaints when seen today. She has some confusion, although oriented today, and does not recall events from yesterday. She is NPO and failed modified barium swallow. Denies any abdominal pain, nausea, or vomiting. Perc drain with 40 cc out over past 24 hours. Exam Const: General: comfortable and no acute distress Orientation/consciousness: confusion GI: Inspection: non-distended GI Palp: Yes Soft to palpation, Yes Tenderness to palpation present (GI) (suprapubic and LLQ tenderness, mild), No Guarding due to palpation present (GI) and No Rebound tenderness present Auscultation: normal bowel sounds Other: Perc drain with rivas purulent output Urinary Catheter: Urinary Catheter: patent and draining and urine clear (but dark yellow) Extrem: General: no calf tenderness and edema bilateral Objective Data Vital Signs Vital Signs: Vital Signs - 24 hr 02/08/25 14:00 02/08/25 14:00 02/08/25 16:00 Temperature 97.3 F L 97.6 F Pulse Rate 89 89 83 Respiratory Rate 19 17 Blood Pressure 174/87 H 160/82 H Pulse Oximetry 98 100 Oxygen Delivery Oxygen Flow Rate Fraction of Inspired Oxygen 02/08/25 16:00 02/08/25 16:00 02/08/25 16:20 Temperature Pulse Rate 84 Respiratory Rate Blood Pressure Pulse Oximetry 98 100 Oxygen Delivery High Flow Nasal Cannula High Flow Nasal Cannula Oxygen Flow Rate 4 4 Fraction of Inspired Oxygen 36 02/08/25 18:00 02/08/25 18:00 02/08/25 19:25 Temperature Pulse Rate 86 86 Respiratory Rate 17 Blood Pressure 151/69 H Pulse Oximetry 100 Oxygen Delivery High Flow Nasal Cannula Oxygen Flow Rate 3 Fraction of Inspired Oxygen 02/08/25 19:27 02/08/25 20:07 02/08/25 20:09 Temperature 98.1 F Pulse Rate 86 88 86 Respiratory Rate 22 H 18 Blood Pressure 142/64 H Pulse Oximetry 98 Oxygen Delivery Oxygen Flow Rate Fraction of Inspired Oxygen 02/08/25 20:10 02/08/25 20:16 02/08/25 22:00 Temperature Pulse Rate 88 88 Respiratory Rate 18 Blood Pressure Pulse Oximetry 98 Oxygen Delivery High Flow Nasal Cannula Oxygen Flow Rate 3 Fraction of Inspired Oxygen 32 02/08/25 23:54 02/08/25 23:56 02/08/25 23:58 Temperature 98.1 F Pulse Rate 88 91 91 Respiratory Rate 23 H 23 H Blood Pressure 135/60 Pulse Oximetry 98 98 Oxygen Delivery Nasal Cannula Oxygen Flow Rate 3 Fraction of Inspired Oxygen 02/09/25 02:00 02/09/25 02:00 02/09/25 02:11 Temperature Pulse Rate 87 91 88 Respiratory Rate 18 18 Blood Pressure Pulse Oximetry Oxygen Delivery Oxygen Flow Rate Fraction of Inspired Oxygen 02/09/25 03:28 02/09/25 03:30 02/09/25 04:20 Temperature 97.7 F Pulse Rate 91 91 89 Respiratory Rate 18 22 H Blood Pressure 137/63 Pulse Oximetry 98 98 Oxygen Delivery Nasal Cannula Oxygen Flow Rate 3 Fraction of Inspired Oxygen 02/09/25 07:51 02/09/25 08:00 02/09/25 08:00 Temperature 98.3 F Pulse Rate 90 90 Respiratory Rate 22 H Blood Pressure 152/71 H Pulse Oximetry 94 95 Oxygen Delivery Nasal Cannula Oxygen Flow Rate 2 Fraction of Inspired Oxygen 02/09/25 08:04 02/09/25 08:04 02/09/25 08:14 Temperature Pulse Rate 90 90 88 Respiratory Rate 20 20 20 Blood Pressure Pulse Oximetry 98 Oxygen Delivery Nasal Cannula Oxygen Flow Rate 3 Fraction of Inspired Oxygen 02/09/25 10:00 02/09/25 11:53 02/09/25 12:00 Temperature 98.3 F Pulse Rate 94 96 Respiratory Rate 21 H Blood Pressure 146/72 H Pulse Oximetry 97 97 Oxygen Delivery Nasal Cannula Oxygen Flow Rate 2 Fraction of Inspired Oxygen 02/09/25 12:00 Temperature Pulse Rate 93 Respiratory Rate Blood Pressure Pulse Oximetry Oxygen Delivery Oxygen Flow Rate Fraction of Inspired Oxygen Intake/Output Intake/Output: Intake & Output 02/06/25 02/07/25 02/08/25 02/09/25 23:59 23:59 23:59 23:59 Intake Total 2008.8 1504.0 800 400 Output Total 3105 1495 3325 200 Balance -1096.2 9.0 -2525 200 Meds/Results Medications: Active Medications Generic Name Dose Route Start Last Admin Trade Name Freq PRN Reason Stop Dose Admin Acetaminophen 650 mg 01/25/25 20:51 02/01/25 19:04 Acetaminophen 325 Mg Tablet PO 650 mg Q4H PRN Administration Headache Dextrose 12.5 gm 01/25/25 20:46 01/26/25 11:40 Dextrose 50% 25 Gm/50 Ml Syringe IV PUSH 12.5 gm PRN PRN Administration Hypoglycemia Protocol Enoxaparin Sodium 40 mg 02/08/25 09:00 02/09/25 08:42 Enoxaparin 40 Mg/0.4 Ml Syringe SUB-Q 40 mg DAILY KANDIS Administration Fluticasone Propionate 1 spray 02/07/25 11:00 02/09/25 08:42 Fluticasone Propionate 0.05% Na Spr 16 Gm Btl (*Bkc) NASAL 1 spray Q12HR KANDIS Administration Glucagon 1 mg 01/25/25 20:46 Glucagon For Inj 1 Mg Vial IM PRN PRN Hypoglycemia Protocol Glucose 15 gm 01/25/25 20:46 Glucose Oral Gel 15 Gm Of Glucse In 37.5 Gm Tube PO PRN PRN Hypoglycemia Protocol Hydralazine HCl 10 mg 02/06/25 09:58 02/08/25 16:30 Hydralazine Hcl 20 Mg/Ml Vial IV PUSH 10 mg Q4H PRN Administration Blood Pressure - High Dextrose 1,000 mls @ 100 mls/hr 01/25/25 20:46 Dextrose 5% 1,000 Ml IVPB PRN PRN Hypoglycemia Protocol Meropenem 1 gm in 100 mls @ 200 mls/hr 01/29/25 13:00 02/09/25 08:30 IVPB Infused Q8HR KANDIS Infusion Metronidazole 500 mg in 100 mls @ 100 mls/hr 02/04/25 12:00 02/09/25 12:47 Flagyl 500 Mg/Iso Soln 100 Ml IVPB 100 mls/hr Q6HR KANDIS Administration Dextrose 1,000 mls @ 50 mls/hr 02/09/25 07:50 02/09/25 08:39 Dextrose 5% 1,000 Ml IV CONT 50 mls/hr .Q20H KANDIS Administration Insulin Aspart 4 - 8 units 02/02/25 18:00 02/09/25 12:33 Insulin Aspart (*Bkc) 100 Units/Ml SUB-Q Not Given Q6H KANDIS Protocol Insulin Glargine 10 units 01/29/25 21:00 02/01/25 21:11 Insulin Glargine (*Bkc) 100 Units/Ml SUB-Q 10 units HS KANDIS Administration Insulin Glargine 20 units 02/06/25 07:55 02/07/25 08:43 Insulin Glargine (*Bkc) 100 Units/Ml SUB-Q 20 units DAILY KANDIS Administration Ipratropium [place] 0.5 mg 02/08/25 14:00 02/09/25 08:02 Ipratropium Br 0.02% Inh Soln 0.5 Mg/2.5 Ml Vial INHALATION 0.5 mg Q6HRT KANDIS Administration Lactobacillus Acidophilus 1 pkt 02/03/25 09:00 02/07/25 12:15 Acidophilus Packet 1 Pkt Packet PO Not Given QID KANDIS Levalbuterol HCl 0.63 mg 02/08/25 14:00 02/09/25 08:02 Levalbuterol Neb 1.25 Mg/3 Ml INHALATION 0.63 mg Q6HRT KANDIS Administration Ondansetron HCl 4 mg 01/25/25 20:51 02/06/25 22:13 Ondansetron Inj 4 Mg/2 Ml Vial IV PUSH 4 mg Q6H PRN Administration Nausea And Vomiting Pantoprazole Sodium 40 mg 02/08/25 09:00 02/09/25 08:42 Pantoprazole Sodium Iv 40 Mg Vial IV PUSH 40 mg Q12HR KANDIS Administration Sodium Chloride 10 ml 02/02/25 14:00 02/09/25 08:56 Central Line Flush IV PUSH 10 ml Q8HR KANDIS Administration Sodium Chloride 20 ml 02/02/25 13:47 02/03/25 21:40 Central Line Flush IV PUSH 20 ml PRN PRN Administration after blood draws Radiology Results: ITS Impressions Pelvis CT 01/26/25 14:17 IMPRESSION: 1. No significant change in a bilobed gas and fluid containing abscess in the deep pelvis. Patient canceled the planned percutaneous abscess drainage catheter placement due to discomfort despite attempts at repositioning. Abdomen/Pelvis CT 01/29/25 09:28 Impression: Stable large bilobed multilocular abscess in the pelvis extensively involving the distal sigmoid colon and rectum. Stable wall thickening of the distal sigmoid colon and rectum. Small right pleural effusion with right basilar atelectatic change. Cholelithiasis. Nephrolithiasis bilaterally, as detailed above. Catheter Placement CT 02/02/25 16:48 IMPRESSION: 1. Technically successful CT-guided drainage catheter placement with likely translocation and overwhelming sepsis following initial aspiration with subsequent cardiac and respiratory arrest. 2. 12-14 mL fluid was sent for aerobic and anaerobic cultures. Please see separate CODE BLUE flow sheet for additional details of the CODE BLUE portion of the case. Abdomen X-Ray 02/07/25 08:16 IMPRESSION: NO ACUTE ABDOMINAL FINDINGS. Chest X-Ray 02/08/25 06:49 Impression: Moderate bilateral pleural effusions with bibasilar pulmonary edema/atelectasis. Modified Barium Swallow 02/08/25 10:52 IMPRESSION: Pharyngeal dysphagia with laryngeal penetration and aspiration. Please correlate with speech pathologist findings and specific feeding recommendations. Labs Labs: Laboratory Results - last 24 hr 02/08/25 02/08/25 02/09/25 17:18 17:45 00:18 WBC RBC Hgb Hct MCV MCH MCHC RDW Plt Count MPV Immature Gran % (Auto) Neut % (Auto) Lymph % (Auto) [place] % (Auto) Eos % (Auto) Baso % (Auto) Lymph # (Auto) [place] # (Auto) Eos # (Auto) Baso # (Auto) Abs Immat Gran (auto) Absolute Neuts (auto) Absolute Nucleated RBC Band Neutrophils % Nucleated RBC % Platelet Estimate Polychromasia Hypochromasia Anisocytosis Target Cells Helmet Cells Schistocytes Sodium 150 H Potassium 3.7 Chloride 109 H Carbon Dioxide 36 H Anion Gap 5 BUN 52 H Creatinine 0.66 L Estim Creat Clear Calc 78 Estimated GFR > 60 Glucose 153 H POC Capillary Glucose 151 H 135 H Calcium 8.2 L Phosphorus Magnesium Total Bilirubin AST ALT Alkaline Phosphatase Total Protein Albumin 02/09/25 02/09/25 06:18 11:58 WBC 13.5 H RBC 3.51 L Hgb 8.7 L Hct 29.5 L MCV 84.0 MCH 24.8 L MCHC 29.5 L RDW 19.1 H Plt Count 235 MPV 10.7 H Immature Gran % (Auto) 0.7 H Neut % (Auto) 90.4 H Lymph % (Auto) 4.1 L [place] % (Auto) 4.7 Eos % (Auto) 0.0 Baso % (Auto) 0.1 L Lymph # (Auto) 0.55 L [place] # (Auto) 0.6 Eos # (Auto) 0.0 Baso # (Auto) 0.0 Abs Immat Gran (auto) 0.09 H Absolute Neuts (auto) 12.2 H Absolute Nucleated RBC 0.000 Band Neutrophils % Not Reportable Nucleated RBC % 0.0 Platelet Estimate Adequate Polychromasia 1+ Hypochromasia 1+ Anisocytosis 1+ Target Cells 2+ Helmet Cells 1+ Schistocytes None seen Sodium 150 H Potassium 3.7 Chloride 110 H Carbon Dioxide 37 H Anion Gap 3 L BUN 54 H Creatinine 0.78 Estim Creat Clear Calc 67 Estimated GFR > 60 Glucose 149 H POC Capillary Glucose 164 H Calcium 8.3 L Phosphorus 3.5 Magnesium 2.3 Total Bilirubin 1.6 H AST 23 ALT 14 Alkaline Phosphatase 84 Total Protein 6.0 L Albumin 2.4 L
--- NOTE | 2025-02-09 16:15 | P.PNGI_ITS ---
Progress Note: A&P Assessment and Plan (1) Intra-abdominal abscess: Code(s): K65.1 - Peritoneal abscess Status: Acute Assessment and Plan: continue drain and abx, management conservatively by surgery team wbc trending down (2) Heme positive stool: Code(s): R19.5 - Other fecal abnormalities Status: Acute Assessment and Plan: no overt gib no need of further evaluation now, this can easily be explained by pelvic abscess and possible associated colon inflammation, colonoscopy in this setting is contraindicated h/h is low but stable, no need of urgent colonoscopy, probably once she is fully recovered we could perform a colonoscopy to assess healing and source of pelvic abscess but may take another 8 weeks at least- surgery team is on board will follow only as needed (3) Anemia: Qualifiers: Anemia type: other cause Other causes of anemia: chronic disease, other Qualified Code(s): D63.8 - Anemia in other chronic diseases classified elsewhere Code(s): D64.9 - Anemia, unspecified Status: Acute Assessment and Plan: probably multifactorial pelvic abscess keep hgb>7 no plan for endoscopic evaluation during this hospitalization (4) Sepsis: Qualifiers: Sepsis type: sepsis due to unspecified organism Sepsis acute organ dysfunction status: without acute organ dysfunction Qualified Code(s): A41.9 - Sepsis, unspecified organism Code(s): A41.9 - Sepsis, unspecified organism Status: Acute Assessment and Plan: improving, managed by hospitalist and surgery (5) Leukocytosis: Qualifiers: Leukocytosis type: unspecified Qualified Code(s): D72.829 - Elevated white blood cell count, unspecified Code(s): D72.829 - Elevated white blood cell count, unspecified Status: Acute Assessment and Plan: trending down Subjective Date/time seen: 02/09/25 16:15 Interval history: primary team called us again because chronic anemia with + FOBT and sign of aspiration- this already was addressed with placing DH tube- will start feeding soon. overall she has been stable and doing better, she came in initially with septic shock and even had cardiac arrest, pelvic abscess treated by IR with drain and surgery is on board. hgb low but has been stable, no report of overt gib Review of Systems Review of Systems: All systems reviewed & are unremarkable except as noted in HPI and below Exam Const: General: comfortable and no acute distress Orientation/consciousness: confusion HENMT: Other: DH tube in place Eyes: General: appearance normal, both eyes and all related structures Neck: Neck: supple Resp: Effort & Inspection: normal respiratory effort Cardio: Rate: regular rate GI: Inspection: non-distended GI Palp: Yes Soft to palpation, Yes Tenderness to palpation present (GI) (suprapubic and LLQ tenderness, mild), No Guarding due to palpation present (GI) and No Rebound tenderness present Auscultation: normal bowel sounds Other: Perc drain with rivas purulent output Urinary Catheter: Urinary Catheter: patent and draining and urine clear (but dark yellow) Skin: General skin exam: no rashes or lesions noted Neuro: Other: confused Extrem: General: no calf tenderness and edema bilateral Objective Data Vital Signs Vital Signs: Vital Signs - 24 hr 02/08/25 16:20 02/08/25 18:00 02/08/25 18:00 Temperature Pulse Rate 86 Respiratory Rate Blood Pressure 151/69 H Pulse Oximetry 100 Oxygen Delivery High Flow Nasal Cannula Oxygen Flow Rate 4 Fraction of Inspired Oxygen 36 02/08/25 19:25 02/08/25 19:27 02/08/25 20:07 Temperature 98.1 F Pulse Rate 86 86 88 Respiratory Rate 17 22 H Blood Pressure 142/64 H Pulse Oximetry 100 98 Oxygen Delivery High Flow Nasal Cannula Oxygen Flow Rate 3 Fraction of Inspired Oxygen 02/08/25 20:09 02/08/25 20:10 02/08/25 20:16 Temperature Pulse Rate 86 88 Respiratory Rate 18 18 Blood Pressure Pulse Oximetry 98 Oxygen Delivery High Flow Nasal Cannula Oxygen Flow Rate 3 Fraction of Inspired Oxygen 32 02/08/25 22:00 02/08/25 23:54 02/08/25 23:56 Temperature 98.1 F Pulse Rate 88 88 91 Respiratory Rate 23 H 23 H Blood Pressure 135/60 Pulse Oximetry 98 98 Oxygen Delivery Nasal Cannula Oxygen Flow Rate 3 Fraction of Inspired Oxygen 02/08/25 23:58 02/09/25 02:00 02/09/25 02:00 Temperature Pulse Rate 91 87 91 Respiratory Rate 18 Blood Pressure Pulse Oximetry Oxygen Delivery Oxygen Flow Rate Fraction of Inspired Oxygen 02/09/25 02:11 02/09/25 03:28 02/09/25 03:30 Temperature Pulse Rate 88 91 91 Respiratory Rate 18 18 Blood Pressure Pulse Oximetry 98 Oxygen Delivery Nasal Cannula Oxygen Flow Rate 3 Fraction of Inspired Oxygen 02/09/25 04:20 02/09/25 07:51 02/09/25 08:00 Temperature 97.7 F 98.3 F Pulse Rate 89 90 90 Respiratory Rate 22 H 22 H Blood Pressure 137/63 152/71 H Pulse Oximetry 98 94 Oxygen Delivery Oxygen Flow Rate Fraction of Inspired Oxygen 02/09/25 08:00 02/09/25 08:04 02/09/25 08:04 Temperature Pulse Rate 90 90 Respiratory Rate 20 20 Blood Pressure Pulse Oximetry 95 98 Oxygen Delivery Nasal Cannula Nasal Cannula Oxygen Flow Rate 2 3 Fraction of Inspired Oxygen 02/09/25 08:14 02/09/25 10:00 02/09/25 11:53 Temperature 98.3 F Pulse Rate 88 94 96 Respiratory Rate 20 21 H Blood Pressure 146/72 H Pulse Oximetry 97 Oxygen Delivery Oxygen Flow Rate Fraction of Inspired Oxygen 02/09/25 12:00 02/09/25 12:00 02/09/25 15:11 Temperature Pulse Rate 93 92 Respiratory Rate 20 Blood Pressure Pulse Oximetry 97 Oxygen Delivery Nasal Cannula Oxygen Flow Rate 2 Fraction of Inspired Oxygen 02/09/25 15:21 02/09/25 15:59 02/09/25 16:00 Temperature 98.4 F Pulse Rate 93 96 Respiratory Rate 20 21 H Blood Pressure 160/53 H Pulse Oximetry 94 94 Oxygen Delivery Nasal Cannula Oxygen Flow Rate 2 Fraction of Inspired Oxygen Intake/Output Intake/Output: Intake & Output 02/06/25 02/07/25 02/08/25 02/09/25 23:59 23:59 23:59 23:59 Intake Total 2008.8 1504.0 800 500 Output Total 3105 1495 3325 1000 Balance -1096.2 9.0 -2525 -500 Meds/Results Medications: Active Medications Generic Name Dose Route Start Last Admin Trade Name Freq PRN Reason Stop Dose Admin Acetaminophen 650 mg 01/25/25 20:51 02/01/25 19:04 Acetaminophen 325 Mg Tablet PO 650 mg Q4H PRN Administration Headache Dextrose 12.5 gm 01/25/25 20:46 01/26/25 11:40 Dextrose 50% 25 Gm/50 Ml Syringe IV PUSH 12.5 gm PRN PRN Administration Hypoglycemia Protocol Enoxaparin Sodium 40 mg 02/08/25 09:00 02/09/25 08:42 Enoxaparin 40 Mg/0.4 Ml Syringe SUB-Q 40 mg DAILY KANDIS Administration Fluticasone Propionate 1 spray 02/07/25 11:00 02/09/25 08:42 Fluticasone Propionate 0.05% Na Spr 16 Gm Btl (*Bkc) NASAL 1 spray Q12HR KANDIS Administration Glucagon 1 mg 01/25/25 20:46 Glucagon For Inj 1 Mg Vial IM PRN PRN Hypoglycemia Protocol Glucose 15 gm 01/25/25 20:46 Glucose Oral Gel 15 Gm Of Glucse In 37.5 Gm Tube PO PRN PRN Hypoglycemia Protocol Hydralazine HCl 10 mg 02/06/25 09:58 02/08/25 16:30 Hydralazine Hcl 20 Mg/Ml Vial IV PUSH 10 mg Q4H PRN Administration Blood Pressure - High Dextrose 1,000 mls @ 100 mls/hr 01/25/25 20:46 Dextrose 5% 1,000 Ml IVPB PRN PRN Hypoglycemia Protocol Meropenem 1 gm in 100 mls @ 200 mls/hr 01/29/25 13:00 02/09/25 14:19 IVPB 100 mls/hr Q8HR KANDIS Administration Metronidazole 500 mg in 100 mls @ 100 mls/hr 02/04/25 12:00 02/09/25 14:00 Flagyl 500 Mg/Iso Soln 100 Ml IVPB Infused Q6HR KANDIS Infusion Dextrose 1,000 mls @ 50 mls/hr 02/09/25 07:50 02/09/25 08:39 Dextrose 5% 1,000 Ml IV CONT 50 mls/hr .Q20H KANDIS Administration Insulin Aspart 4 - 8 units 02/02/25 18:00 02/09/25 12:33 Insulin Aspart (*Bkc) 100 Units/Ml SUB-Q Not Given Q6H KANDIS Protocol Insulin Glargine 10 units 01/29/25 21:00 02/01/25 21:11 Insulin Glargine (*Bkc) 100 Units/Ml SUB-Q 10 units HS KANDIS Administration Insulin Glargine 20 units 02/06/25 07:55 02/07/25 08:43 Insulin Glargine (*Bkc) 100 Units/Ml SUB-Q 20 units DAILY KANDIS Administration Ipratropium [place] 0.5 mg 02/08/25 14:00 02/09/25 15:11 Ipratropium Br 0.02% Inh Soln 0.5 Mg/2.5 Ml Vial INHALATION 0.5 mg Q6HRT KANDIS Administration Lactobacillus Acidophilus 1 pkt 02/03/25 09:00 02/07/25 12:15 Acidophilus Packet 1 Pkt Packet PO Not Given QID KANDIS Levalbuterol HCl 0.63 mg 02/08/25 14:00 02/09/25 15:10 Levalbuterol Neb 1.25 Mg/3 Ml INHALATION 0.63 mg Q6HRT KANDIS Administration Ondansetron HCl 4 mg 01/25/25 20:51 02/06/25 22:13 Ondansetron Inj 4 Mg/2 Ml Vial IV PUSH 4 mg Q6H PRN Administration Nausea And Vomiting Pantoprazole Sodium 40 mg 02/08/25 09:00 02/09/25 08:42 Pantoprazole Sodium Iv 40 Mg Vial IV PUSH 40 mg Q12HR KANDIS Administration Sodium Chloride 10 ml 02/02/25 14:00 02/09/25 08:56 Central Line Flush IV PUSH 10 ml Q8HR KANDIS Administration Sodium Chloride 20 ml 02/02/25 13:47 02/03/25 21:40 Central Line Flush IV PUSH 20 ml PRN PRN Administration after blood draws Radiology Results: ITS Impressions Pelvis CT 01/26/25 14:17 IMPRESSION: 1. No significant change in a bilobed gas and fluid containing abscess in the deep pelvis. Patient canceled the planned percutaneous abscess drainage catheter placement due to discomfort despite attempts at repositioning. Abdomen/Pelvis CT 01/29/25 09:28 Impression: Stable large bilobed multilocular abscess in the pelvis extensively involving the distal sigmoid colon and rectum. Stable wall thickening of the distal sigmoid colon and rectum. Small right pleural effusion with right basilar atelectatic change. Cholelithiasis. Nephrolithiasis bilaterally, as detailed above. Catheter Placement CT 02/02/25 16:48 IMPRESSION: 1. Technically successful CT-guided drainage catheter placement with likely translocation and overwhelming sepsis following initial aspiration with subsequent cardiac and respiratory arrest. 2. 12-14 mL fluid was sent for aerobic and anaerobic cultures. Please see separate CODE BLUE flow sheet for additional details of the CODE BLUE portion of the case. Abdomen X-Ray 02/07/25 08:16 IMPRESSION: NO ACUTE ABDOMINAL FINDINGS. Chest X-Ray 02/08/25 06:49 Impression: Moderate bilateral pleural effusions with bibasilar pulmonary edema/atelectasis. Modified Barium Swallow 02/08/25 10:52 IMPRESSION: Pharyngeal dysphagia with laryngeal penetration and aspiration. Please correlate with speech pathologist findings and specific feeding recommendations. Labs Labs: Laboratory Results - last 24 hr 02/08/25 02/08/25 02/09/25 17:18 17:45 00:18 WBC RBC Hgb Hct MCV MCH MCHC RDW Plt Count MPV Immature Gran % (Auto) Neut % (Auto) Lymph % (Auto) [place] % (Auto) Eos % (Auto) Baso % (Auto) Lymph # (Auto) [place] # (Auto) Eos # (Auto) Baso # (Auto) Abs Immat Gran (auto) Absolute Neuts (auto) Absolute Nucleated RBC Band Neutrophils % Nucleated RBC % Platelet Estimate Polychromasia Hypochromasia Anisocytosis Target Cells Helmet Cells Schistocytes Sodium 150 H Potassium 3.7 Chloride 109 H Carbon Dioxide 36 H Anion Gap 5 BUN 52 H Creatinine 0.66 L Estim Creat Clear Calc 78 Estimated GFR > 60 Glucose 153 H POC Capillary Glucose 151 H 135 H Calcium 8.2 L Phosphorus Magnesium Total Bilirubin AST ALT Alkaline Phosphatase Total Protein Albumin 02/09/25 02/09/25 06:18 11:58 WBC 13.5 H RBC 3.51 L Hgb 8.7 L Hct 29.5 L MCV 84.0 MCH 24.8 L MCHC 29.5 L RDW 19.1 H Plt Count 235 MPV 10.7 H Immature Gran % (Auto) 0.7 H Neut % (Auto) 90.4 H Lymph % (Auto) 4.1 L [place] % (Auto) 4.7 Eos % (Auto) 0.0 Baso % (Auto) 0.1 L Lymph # (Auto) 0.55 L [place] # (Auto) 0.6 Eos # (Auto) 0.0 Baso # (Auto) 0.0 Abs Immat Gran (auto) 0.09 H Absolute Neuts (auto) 12.2 H Absolute Nucleated RBC 0.000 Band Neutrophils % Not Reportable Nucleated RBC % 0.0 Platelet Estimate Adequate Polychromasia 1+ Hypochromasia 1+ Anisocytosis 1+ Target Cells 2+ Helmet Cells 1+ Schistocytes None seen Sodium 150 H Potassium 3.7 Chloride 110 H Carbon Dioxide 37 H Anion Gap 3 L BUN 54 H Creatinine 0.78 Estim Creat Clear Calc 67 Estimated GFR > 60 Glucose 149 H POC Capillary Glucose 164 H Calcium 8.3 L Phosphorus 3.5 Magnesium 2.3 Total Bilirubin 1.6 H AST 23 ALT 14 Alkaline Phosphatase 84 Total Protein 6.0 L Albumin 2.4 L
--- NOTE | 2025-02-09 16:30 | PC.NURSE ---
PT HR 120-140, afib. Notified DR. KAUR who gave order to consult ardiology and to give 2.5mg metoprolol IVP. Orders read back and verified.
[2025-02-09] MEDS: METOPROLOL TARTRATE INJ 5 MG/5 ML VIAL 2.5 MG IV PUSH (16:54)
[2025-02-09 17:59] LABS: Glucose Point of Care 179 mg/dl (65-105)
--- NOTE | 2025-02-09 18:13 | PC.NURSE ---
NOtified PJ that the patient is still in afib with rates in 130's. Recevied order fo 5mg IV push. Order read back and verified.
[2025-02-09] MEDS: METOPROLOL TARTRATE INJ 5 MG/5 ML VIAL IV PUSH ×2 (18:19→23:57)
--- NOTE | 2025-02-09 18:33 | PC.NURSE ---
Now that tube feeds have started received order from PJ to stop d5 and increase flushes to 150ml q4h. Orders read back and verified.
[2025-02-10] VITALS (29 sets, daily range): BP systolic 110–129; BP diastolic 53–57; PULSE 81–141; RESP 16–22; TEMP 36.4–37.1; O2SAT 92–100
[2025-02-10 00:03] LABS: Glucose Point of Care 207 mg/dl (65-105)
[2025-02-10] MEDS: INSULIN ASPART (*BKC) 100 UNITS/ML SUB-Q ×4 (00:03→18:40)
[2025-02-10] MEDS: LEVALBUTEROL NEB 1.25 MG/3 ML 0.63 MG INHALATION ×4 (02:02→19:54)
[2025-02-10] MEDS: IPRATROPIUM BR 0.02% INH SOLN 0.5 MG/2.5 ML VIAL INHALATION ×4 (02:02→19:53)
[2025-02-10] MEDS: CENTRAL LINE FLUSH 10 ML IV PUSH ×3 (05:52→21:09)
[2025-02-10] MEDS: metroNIDAZOLE 500 MG/ISO 100ML 500 MG/100 ML BAG 100 MG IVPB ×3 (05:52→18:40)
[2025-02-10] MEDS: MEROPENEM 1 GM/NS 100 ML 1 GM/100 ML BAG IVPB ×3 (05:52→21:08)
[2025-02-10 06:23] LABS: Alanine Aminotransferase 15 U/L (6-35); Albumin Level 2.4 g/dL (3.5-5.1); Alkaline Phosphatase 95 U/L (38-126); Anion Gap 3 mmol/L (4-12); Aspartate Amino Transferase 24 U/L (14-36); Bilirubin,Total 1.7 mg/dL (0.2-1.3); Blood Urea Nitrogen 61 mg/dL (7-17); Calcium 8.2 mg/dL (8.4-10.2); Carbon Dioxide 36 mmol/L (22-30); Chloride 112 mmol/L (98-107); Estimated CRCL calculation 62 ml/min; Estimated Glomerular Filt Rate > 60; Glucose 235 mg/dL (65-110); Hematocrit 30.6 % (37.0-47.0); Hemoglobin 8.8 g/dL (12.0-15.0); Mean Corpuscular HGB Conc 28.8 g/dl (32-36); Mean Corpuscular Hemoglobin 24.7 pg (26-34); Mean Platelet Volume 10.6 fl (7.4-10.4); Platelet Count Result 274 k/mm3 (150-375); Potassium 3.3 mmol/L (3.4-5.0); Red Blood Count 3.56 M/mm3 (4.2-5.4); Red Cell Distribution Width 19.6 % (11.5-14.5); Sodium 151 mmol/L (137-145); White Blood Count 10.8 K/mm3 (4.5-10.0)
--- NOTE | 2025-02-10 07:31 | P.PNIM_ITS ---
Progress Note: A&P Assessment and Plan (1) Cardiac arrest: Code(s): I46.9 - Cardiac arrest, cause unspecified Status: Acute Assessment and Plan: Patient had a cardiac arrest after placement of a percutaneous drain in the pelvic abscess. Could be related to vasovagal, translocation of bacteria, hypoxia as patient was laying flat, hypovolemia, acidosis -successful ROSC x2, intubated in the CT scan suite by ER physician -patient did follow commands post code a continue, so not a candidate for targeted temperature management -will continue to treat underlying cause (2) Septic shock: Code(s): A41.9 - Sepsis, unspecified organism; R65.21 - Severe sepsis with septic shock Status: Acute Assessment and Plan: 02/01:In the ICU patient dropped her blood pressures -patient has been adequately fluid-resuscitated with IV fluids and albumin -01/25: Blood cultures negative x2 -02/02: repeat blood cultures -growing E coli (pansensitive) and Clostridium ramosum -02/02: Abscess fluid culture growing E coli and Bacteroides fragilis 02/03: WBC count up to 64, could be related to septic shock, infection, leukomoid reaction, steroids. Will continue to monitor -WBC count is trending down, patient is afebrile, continue to monitor --continue meropenem, Flagyl 02/04: Discontinue vancomycin -continue doxycycline for 5 days - weaning stress dose steroid -off all pressors (patient was on Levophed, Bobo-Synephrine and vasopressin) -WBC count trending down 02/04: Repeat blood cultures growing Clostridium ramosum, bacteroids fragilis 02/09: Repeat blood culture shows no growth (3) Acute respiratory failure: Qualifiers: Respiratory failure complication: hypoxia Qualified Code(s): J96.01 - Acute respiratory failure with hypoxia Code(s): J96.00 - Acute respiratory failure, unspecified whether with hypoxia or hypercapnia Status: Acute Assessment and Plan: Acute respiratory failure likely related to cardiac arrest possible from septic shock, infection, hypovolemia, translocation of bacteria, acidosis, hypoxia -patient intubated in the CT scan suite by ER physician -02/06: Extubated Accidentally coughed upper ETT was on pressure support ventilation 10/5 for approximately 3 hours and 40 minutes -chest x-ray and ABGs reviewed -Moderate bilateral pleural effusions with bibasilar pulmonary edema/atelectasis. -continue Xopenex and Atrovent nebulizer -OFF Precedex infusion, -diuresed well with Lasix on 02/06, 02/07 -02/08: will diurese again today after placing potassium -s/p on Airvo 45% FiO2 and 45 L flow rate -patient is currently on 2 L (4) Intra-abdominal abscess: Code(s): K65.1 - Peritoneal abscess Status: Acute Assessment and Plan: Intra-abdominal abscess, status post percutaneous IR drain placement on 02/01/2025 -draining purulent material, cultures as above -surgery is following the patient -continue antibiotics as above (5) Diabetes 1.5, managed as type 2: Code(s): E13.9 - Other specified diabetes mellitus without complications Status: Acute Assessment and Plan: Continue Accu-Cheks and sliding scale insulin -will discontinue Lantus for now as patient is NPO, off a stress dose steroid -will start nutrition through NG (6) Hypertension: Qualifiers: Hypertension type: unspecified Qualified Code(s): I10 - Essential (primary) hypertension Code(s): I10 - Essential (primary) hypertension Status: Acute Assessment and Plan: Patient just came off pressors, continue to hold antihypertensives for now -continue p.r.n. hydralazine IV -once patient starts taking p.o. with will add her home antihypertensive (7) Anemia: Qualifiers: Anemia type: other cause Other causes of anemia: chronic disease, other Qualified Code(s): D63.8 - Anemia in other chronic diseases classified else where Code(s): D64.9 - Anemia, unspecified Status: Acute Assessment and Plan: 02/03: Hemoglobin dropped to 6.3. -will transfuse 1 unit of packed RBC -hemoglobin stable -02/05: hemoglobin dropped to 7.0 -status post 1 unit of packed RBC -iron panel reflective of iron deficiency anemia and/or anemia of chronic disease -folic acid and vitamin B12 levels within normal limits -stool occult was positive -appreciate GI evaluation and recommendations -hemoglobin is stable, continue to monitor (8) Hypernatremia: Code(s): E87.0 - Hyperosmolality and hypernatremia Status: Acute Assessment and Plan: Possibly due to dehydration Increased flushing 150 mL free water q.4 hours via NG Subjective Date/time seen: 02/10/25 07:31 Interval history: Potassium was replaced. In regards to increased heart rate yesterday given metoprolol 2.5 mg and consulted Cardiology. In regards to hyponatremia continue D5W and increased flushing 150 q.4 hours. Review of Systems Review of Systems: All systems reviewed & are unremarkable except as noted in HPI and below ROS unobtainable: Yes unobtainable due to endotracheal tube, unobtainable due to medical condition and unobtainable due to mental status Exam Narrative: General: Obese female, currently in no acute distress HEENT:? Pupils equal and reactive, sclera is clear, Airvo in place Neck:? Supple Respiratory:? Coarse breath sounds bilaterally, decreased at bases, no wheezing, adequate air entry Cardiac:? S1-S2 normal, regular rate and rhythm Abdomen:? Soft, nontender, obese, hypoactive bowel sounds, left lower quadrant drain in place with purulent drainage Extremities:? Bilateral upper and lower extremity pitting edema Neuro:? Of Precedex. More awake, alert, able to answer questions, follows simple commands, Skin:? No skin lesions noted Psych:? Depressed affect Const: General: comfortable and no acute distress Other: , female, elderly, disheveled. Nontoxic appearance. HENMT: Face/Nose/Sinus: Normal nares present Mouth: Yes moist mucous membranes Eyes: General: appearance normal, both eyes and all related structures Sclera: sclerae normal Pupils: Equal, round and reactive pupils present EOM: EOMs intact bilaterally Resp: Effort & Inspection: normal respiratory effort Auscultation: clear to auscultation bilaterally Cardio: Rate: regular rate Rhythm: regular rhythm Other: S1-S2 present without murmur, rub, ectopy GI: Other: tender in the lower quadrants. hyperactive bowel sounds in the upper quadrants, normoactive in the lower. Nondistended, soft. Skin: General skin exam: normal color and no rashes or lesions noted Wounds: no wounds Neuro: Cranial nerves: Yes Equal, round and reactive pupils present Speech: normal speech Motor exam (neuro): 5/5 motor strength present throughout Sensory Exam: normal sensation Other: A&O x4 Extrem: General: normal to inspection Psych: Mental Status: mental status grossly normal Affect: normal affect Other: Malodorous, disheveled. Fair insight and judgment, pleasant. Objective Data Vital Signs Vital Signs: Vital Signs - 24 hr 02/09/25 07:51 02/09/25 08:00 02/09/25 08:00 Temperature 98.3 F Pulse Rate 90 90 Respiratory Rate 22 H Blood Pressure 152/71 H Pulse Oximetry 94 95 Oxygen Delivery Nasal Cannula Oxygen Flow Rate 2 Fraction of Inspired Oxygen 02/09/25 08:04 02/09/25 08:04 02/09/25 08:14 Temperature Pulse Rate 90 90 88 Respiratory Rate 20 20 20 Blood Pressure Pulse Oximetry 98 Oxygen Delivery Nasal Cannula Oxygen Flow Rate 3 Fraction of Inspired Oxygen 02/09/25 10:00 02/09/25 11:53 02/09/25 12:00 Temperature 98.3 F Pulse Rate 94 96 Respiratory Rate 21 H Blood Pressure 146/72 H Pulse Oximetry 97 97 Oxygen Delivery Nasal Cannula Oxygen Flow Rate 2 Fraction of Inspired Oxygen 02/09/25 12:00 02/09/25 15:11 02/09/25 15:21 Temperature Pulse Rate 93 92 93 Respiratory Rate 20 20 Blood Pressure Pulse Oximetry Oxygen Delivery Oxygen Flow Rate Fraction of Inspired Oxygen 02/09/25 15:59 02/09/25 16:00 02/09/25 16:00 Temperature 98.4 F Pulse Rate 96 95 Respiratory Rate 21 H Blood Pressure 160/53 H Pulse Oximetry 94 94 Oxygen Delivery Nasal Cannula Oxygen Flow Rate 2 Fraction of Inspired Oxygen 02/09/25 16:54 02/09/25 18:00 02/09/25 18:19 Temperature Pulse Rate 138 H 129 H 130 H Respiratory Rate Blood Pressure Pulse Oximetry Oxygen Delivery Oxygen Flow Rate Fraction of Inspired Oxygen 02/09/25 20:00 02/09/25 20:00 02/09/25 20:05 Temperature Pulse Rate 117 H 117 H 124 H Respiratory Rate 21 H 18 Blood Pressure Pulse Oximetry 100 Oxygen Delivery Nasal Cannula Oxygen Flow Rate 2 Fraction of Inspired Oxygen 02/09/25 20:06 02/09/25 20:06 02/09/25 20:14 Temperature 98.6 F Pulse Rate 124 H 122 H 126 H Respiratory Rate 18 22 H 16 Blood Pressure 117/62 Pulse Oximetry 96 99 Oxygen Delivery High Flow Nasal Cannula Oxygen Flow Rate 2 Fraction of Inspired Oxygen 02/09/25 22:00 02/09/25 23:34 02/09/25 23:57 Temperature 98.0 F Pulse Rate 149 H 149 H 138 H Respiratory Rate 18 Blood Pressure 128/79 Pulse Oximetry 100 Oxygen Delivery Oxygen Flow Rate Fraction of Inspired Oxygen 02/10/25 00:00 02/10/25 00:00 02/10/25 02:00 Temperature Pulse Rate 114 H 114 H 131 H Respiratory Rate 18 Blood Pressure Pulse Oximetry 100 Oxygen Delivery Nasal Cannula Oxygen Flow Rate 1 Fraction of Inspired Oxygen 02/10/25 02:02 02/10/25 02:14 02/10/25 04:00 Temperature Pulse Rate 115 H 122 H 117 H Respiratory Rate 16 16 16 Blood Pressure Pulse Oximetry 100 Oxygen Delivery Nasal Cannula Oxygen Flow Rate 1 Fraction of Inspired Oxygen 32 02/10/25 04:00 02/10/25 04:22 02/10/25 05:50 Temperature 98.7 F Pulse Rate 117 H 140 H 124 H Respiratory Rate 20 Blood Pressure 116/57 L Pulse Oximetry 97 Oxygen Delivery Oxygen Flow Rate Fraction of Inspired Oxygen Intake/Output Intake/Output: Intake & Output 02/07/25 02/08/25 02/09/25 02/10/25 23:59 23:59 23:59 23:59 Intake Total 1504.0 800 800 100 Output Total 1495 3325 1170 200 Balance 9.0 -2525 -370 -100 Meds/Results Medications: Active Medications Generic Name Dose Route Start Last Admin Trade Name Freq PRN Reason Stop Dose Admin Acetaminophen 650 mg 01/25/25 20:51 02/01/25 19:04 Acetaminophen 325 Mg Tablet PO 650 mg Q4H PRN Administration Headache Dextrose 12.5 gm 01/25/25 20:46 01/26/25 11:40 Dextrose 50% 25 Gm/50 Ml Syringe IV PUSH 12.5 gm PRN PRN Administration Hypoglycemia Protocol Enoxaparin Sodium 40 mg 02/08/25 09:00 02/09/25 08:42 Enoxaparin 40 Mg/0.4 Ml Syringe SUB-Q 40 mg DAILY KANDIS Administration Fluticasone Propionate 1 spray 02/07/25 11:00 02/09/25 21:03 Fluticasone Propionate 0.05% Na Spr 16 Gm Btl (*Bkc) NASAL 1 spray Q12HR KANDIS Administration Glucagon 1 mg 01/25/25 20:46 Glucagon For Inj 1 Mg Vial IM PRN PRN Hypoglycemia Protocol Glucose 15 gm 01/25/25 20:46 Glucose Oral Gel 15 Gm Of Glucse In 37.5 Gm Tube PO PRN PRN Hypoglycemia Protocol Hydralazine HCl 10 mg 02/06/25 09:58 02/08/25 16:30 Hydralazine Hcl 20 Mg/Ml Vial IV PUSH 10 mg Q4H PRN Administration Blood Pressure - High Dextrose 1,000 mls @ 100 mls/hr 01/25/25 20:46 Dextrose 5% 1,000 Ml IVPB PRN PRN Hypoglycemia Protocol Meropenem 1 gm in 100 mls @ 200 mls/hr 01/29/25 13:00 02/10/25 05:52 IVPB 100 mls/hr Q8HR KANDIS Administration Metronidazole 500 mg in 100 mls @ 100 mls/hr 02/04/25 12:00 02/10/25 05:52 Flagyl 500 Mg/Iso Soln 100 Ml IVPB 100 mls/hr Q6HR KANDIS Administration Insulin Aspart 4 - 8 units 02/02/25 18:00 02/10/25 06:54 Insulin Aspart (*Bkc) 100 Units/Ml SUB-Q 4 units Q6H KANDIS Administration Protocol Insulin Glargine 10 units 01/29/25 21:00 02/01/25 21:11 Insulin Glargine (*Bkc) 100 Units/Ml SUB-Q 10 units HS KANDIS Administration Insulin Glargine 20 units 02/06/25 07:55 02/07/25 08:43 Insulin Glargine (*Bkc) 100 Units/Ml SUB-Q 20 units DAILY KANDIS Administration Ipratropium [place] 0.5 mg 02/08/25 14:00 02/10/25 02:02 Ipratropium Br 0.02% Inh Soln 0.5 Mg/2.5 Ml Vial INHALATION 0.5 mg Q6HRT KANDIS Administration Lactobacillus Acidophilus 1 pkt 02/03/25 09:00 02/07/25 12:15 Acidophilus Packet 1 Pkt Packet PO Not Given QID KANDIS Levalbuterol HCl 0.63 mg 02/08/25 14:00 02/10/25 02:02 Levalbuterol Neb 1.25 Mg/3 Ml INHALATION 0.63 mg Q6HRT KANDIS Administration Metoprolol Tartrate 5 mg 02/09/25 23:21 02/09/25 23:57 Metoprolol Tartrate Inj 5 Mg/5 Ml Vial IV PUSH 5 mg Q4H PRN Administration afib >130 Ondansetron HCl 4 mg 01/25/25 20:51 02/06/25 22:13 Ondansetron Inj 4 Mg/2 Ml Vial IV PUSH 4 mg Q6H PRN Administration Nausea And Vomiting Pantoprazole Sodium 40 mg 02/08/25 09:00 02/09/25 21:03 Pantoprazole Sodium Iv 40 Mg Vial IV PUSH 40 mg Q12HR KANDIS Administration Potassium Chloride 40 meq 02/10/25 07:45 Potassium Chloride 20 Meq Er Tablet PO 02/10/25 07:46 ONCE ONE Sodium Chloride 10 ml 02/02/25 14:00 02/10/25 05:52 Central Line Flush IV PUSH 10 ml Q8HR KANDIS Administration Sodium Chloride 20 ml 02/02/25 13:47 02/03/25 21:40 Central Line Flush IV PUSH 20 ml PRN PRN Administration after blood draws Radiology Results: ITS Impressions Pelvis CT 01/26/25 14:17 IMPRESSION: 1. No significant change in a bilobed gas and fluid containing abscess in the deep pelvis. Patient canceled the planned percutaneous abscess drainage catheter placement due to discomfort despite attempts at repositioning. Abdomen/Pelvis CT 01/29/25 09:28 Impression: Stable large bilobed multilocular abscess in the pelvis extensively involving the distal sigmoid colon and rectum. Stable wall thickening of the distal sigmoid colon and rectum. Small right pleural effusion with right basilar atelectatic change. Cholelithiasis. Nephrolithiasis bilaterally, as detailed above. Catheter Placement CT 02/02/25 16:48 IMPRESSION: 1. Technically successful CT-guided drainage catheter placement with likely translocation and overwhelming sepsis following initial aspiration with subsequent cardiac and respiratory arrest. 2. 12-14 mL fluid was sent for aerobic and anaerobic cultures. Please see separate CODE BLUE flow sheet for additional details of the CODE BLUE portion of the case. Abdomen X-Ray 02/07/25 08:16 IMPRESSION: NO ACUTE ABDOMINAL FINDINGS. Chest X-Ray 02/08/25 06:49 Impression: Moderate bilateral pleural effusions with bibasilar pulmonary edema/atelectasis. Modified Barium Swallow 02/08/25 10:52 IMPRESSION: Pharyngeal dysphagia with laryngeal penetration and aspiration. Please correlate with speech pathologist findings and specific feeding recommendations. Labs Labs: Laboratory Results - last 24 hr 02/09/25 02/09/25 02/09/25 11:58 17:56 23:59 WBC RBC Hgb Hct MCV MCH MCHC RDW Plt Count MPV Sodium Potassium Chloride Carbon Dioxide Anion Gap BUN Creatinine Estim Creat Clear Calc Estimated GFR Glucose POC Capillary Glucose 164 H 179 H 207 H Calcium Total Bilirubin AST ALT Alkaline Phosphatase Total Protein Albumin 02/10/25 05:58 WBC 10.8 H RBC 3.56 L Hgb 8.8 L Hct 30.6 L MCV 86.0 MCH 24.7 L MCHC 28.8 L RDW 19.6 H Plt Count 274 MPV 10.6 H Sodium 151 H Potassium 3.3 L Chloride 112 H Carbon Dioxide 36 H Anion Gap 3 L BUN 61 H Creatinine 0.87 Estim Creat Clear Calc 62 Estimated GFR > 60 Glucose 235 H POC Capillary Glucose Calcium 8.2 L Total Bilirubin 1.7 H AST 24 ALT 15 Alkaline Phosphatase 95 Total Protein 6.0 L Albumin 2.4 L Quality VTE Prophylaxis VTE prophylaxis: pharmacologic ordered Hospitalist MIPS Advance Care Plan I have confirmed that the patient's Advanced Care Plan is present, code status is documented, or surrogate decision maker is listed in patient medical record.: Yes Medication Reconciliation I have utilized all available resources to obtain, update and review the patients current medications (includes all prescriptions, OTC, herbals, cannabis, and nutritional supplements).: Yes
[2025-02-10] MEDS: ENOXAPARIN 40 MG/0.4 ML SYRINGE SUB-Q (08:53)
[2025-02-10] MEDS: PANTOPRAZOLE SODIUM IV 40 MG VIAL IV PUSH ×2 (08:54→21:09)
[2025-02-10] MEDS: FLUTICASONE PROPIONATE 0.05% NA SPR 16 GM BTL (*BKC) 1 SPRAY NASAL ×2 (08:54→21:09)
--- NOTE | 2025-02-10 09:30 | ECG_ITS ---
Test Date: 2025-02-10 09:59:51 Measurements Intervals [place] Rate: 127 P: 0 MI: 0 QRS: -24 QRSD: 97 T: 156 QT: 297 QTc: 433 Interpretive Statements ATRIAL FIBRILLATION WITH RAPID VENTRICULAR RESPONSE BORDERLINE LEFT AXIS DEVIATION [QRS AXIS < -20] ST DEVIATION AND MODERATE T-WAVE ABNORMALITY, CONSIDER LATERAL ISCHEMIA [-0.1+ mV T WAVE IN I/aVL/V5/V6] WARNING: DATA QUALITY MAY AFFECT INTERPRETATION Compared to ECG 02/06/2025 23:05:05 Sinus rhythm no longer present Electronically Signed On 02-10-2025 14:07:49 CDT by Michell Lemus M.D.
--- NOTE | 2025-02-10 10:57 | PM.PNGS ---
Progress Note: A&P Assessment and Plan (1) Intra-abdominal abscess: Code(s): K65.1 - Peritoneal abscess Status: Acute Assessment and Plan: Continue to monitor percutaneous drain and IV antibiotics. Drain with minimal output at this point. WBC count down to nearly normal. Abdominal exam benign. Tolerating tube feedings through Dobbhoff. Advanced tube feedings as tolerated to goal. Plan I have discussed the patient's case and plan of care with Dr. Goins. Subjective Subjective Date/Time Seen: 02/10/25 10:57 Patient reports: no new complaints, flatus, bowel movement and afebrile Interval history: Patient seen in the IMU. She was being set up for an EKG during my exam. Her heart rate was up in the 140s this morning. The patient denies any chest pain, shortness of breath, abdominal pain, nausea, or vomiting. She has a Dobbhoff that was placed yesterday and her tube feeding has been advanced to 30 cc an hour. Per nursing, she has tolerated this well and has a goal of 60 cc an hour. WBC count normalizing. Exam Const: General: comfortable and no acute distress Orientation/consciousness: patient oriented x3 GI: Inspection: non-distended GI Palp: Yes Soft to palpation, No Tenderness to palpation present (GI), No Guarding due to palpation present (GI) and No Rebound tenderness present Auscultation: normal bowel sounds Other: Percutaneous drain with no output this morning, 20 cc out in the past 24 hours Urinary Catheter: Urinary Catheter: patent and draining and urine dark (Dark yellow almost brown) Objective Data Vital Signs Vital Signs: Vital Signs - 24 hr 02/09/25 11:53 02/09/25 12:00 02/09/25 12:00 Temperature 98.3 F Pulse Rate 96 93 Respiratory Rate 21 H Blood Pressure 146/72 H Pulse Oximetry 97 97 Oxygen Delivery Nasal Cannula Oxygen Flow Rate 2 Fraction of Inspired Oxygen 02/09/25 15:11 02/09/25 15:21 02/09/25 15:59 Temperature 98.4 F Pulse Rate 92 93 96 Respiratory Rate 20 20 21 H Blood Pressure 160/53 H Pulse Oximetry 94 Oxygen Delivery Oxygen Flow Rate Fraction of Inspired Oxygen 02/09/25 16:00 02/09/25 16:00 02/09/25 16:54 Temperature Pulse Rate 95 138 H Respiratory Rate Blood Pressure Pulse Oximetry 94 Oxygen Delivery Nasal Cannula Oxygen Flow Rate 2 Fraction of Inspired Oxygen 02/09/25 18:00 02/09/25 18:19 02/09/25 20:00 Temperature Pulse Rate 129 H 130 H 117 H Respiratory Rate 21 H Blood Pressure Pulse Oximetry 100 Oxygen Delivery Nasal Cannula Oxygen Flow Rate 2 Fraction of Inspired Oxygen 02/09/25 20:00 02/09/25 20:05 02/09/25 20:06 Temperature Pulse Rate 117 H 124 H 124 H Respiratory Rate 18 18 Blood Pressure Pulse Oximetry 96 Oxygen Delivery High Flow Nasal Cannula Oxygen Flow Rate 2 Fraction of Inspired Oxygen 02/09/25 20:06 02/09/25 20:14 02/09/25 22:00 Temperature 98.6 F Pulse Rate 122 H 126 H 149 H Respiratory Rate 22 H 16 Blood Pressure 117/62 Pulse Oximetry 99 Oxygen Delivery Oxygen Flow Rate Fraction of Inspired Oxygen 02/09/25 23:34 02/09/25 23:57 02/10/25 00:00 Temperature 98.0 F Pulse Rate 149 H 138 H 114 H Respiratory Rate 18 18 Blood Pressure 128/79 Pulse Oximetry 100 100 Oxygen Delivery Nasal Cannula Oxygen Flow Rate 1 Fraction of Inspired Oxygen 02/10/25 00:00 02/10/25 02:00 02/10/25 02:02 Temperature Pulse Rate 114 H 131 H 115 H Respiratory Rate 16 Blood Pressure Pulse Oximetry Oxygen Delivery Oxygen Flow Rate Fraction of Inspired Oxygen 02/10/25 02:14 02/10/25 04:00 02/10/25 04:00 Temperature Pulse Rate 122 H 117 H 117 H Respiratory Rate 16 16 Blood Pressure Pulse Oximetry 100 Oxygen Delivery Nasal Cannula Oxygen Flow Rate 1 Fraction of Inspired Oxygen 32 02/10/25 04:22 02/10/25 05:50 02/10/25 08:05 Temperature 98.7 F 98.1 F Pulse Rate 140 H 124 H 141 H Respiratory Rate 20 22 H Blood Pressure 116/57 L 115/56 L Pulse Oximetry 97 95 Oxygen Delivery Oxygen Flow Rate Fraction of Inspired Oxygen 02/10/25 08:53 02/10/25 08:53 02/10/25 09:03 Temperature Pulse Rate 120 H 112 H Respiratory Rate 20 20 Blood Pressure Pulse Oximetry 93 Oxygen Delivery Nasal Cannula Oxygen Flow Rate 1 Fraction of Inspired Oxygen Intake/Output Intake/Output: Intake & Output 05/04/25 02/08/25 02/09/25 02/10/25 23:59 23:59 23:59 23:59 Intake Total 1504.0 800 800 100 Output Total 1495 6555 1170 200 Balance 9.0 -2525 -370 -100 Meds/Results Medications: Active Medications Generic Name Dose Route Start Last Admin Trade Name Freq PRN Reason Stop Dose Admin Acetaminophen 650 mg 01/25/25 20:51 02/01/25 19:04 Acetaminophen 325 Mg Tablet PO 650 mg Q4H PRN Administration Headache Dextrose 12.5 gm 01/25/25 20:46 01/26/25 11:40 Dextrose 50% 25 Gm/50 Ml Syringe IV PUSH 12.5 gm PRN PRN Administration Hypoglycemia Protocol Enoxaparin Sodium 40 mg 02/08/25 09:00 02/10/25 08:53 Enoxaparin 40 Mg/0.4 Ml Syringe SUB-Q 40 mg DAILY KANDIS Administration Fluticasone Propionate 1 spray 02/07/25 11:00 02/10/25 08:54 Fluticasone Propionate 0.05% Na Spr 16 Gm Btl (*Bkc) NASAL 1 spray Q12HR KANDIS Administration Glucagon 1 mg 01/25/25 20:46 Glucagon For Inj 1 Mg Vial IM PRN PRN Hypoglycemia Protocol Glucose 15 gm 01/25/25 20:46 Glucose Oral Gel 15 Gm Of Glucse In 37.5 Gm Tube PO PRN PRN Hypoglycemia Protocol Hydralazine HCl 10 mg 02/06/25 09:58 02/08/25 16:30 Hydralazine Hcl 20 Mg/Ml Vial IV PUSH 10 mg Q4H PRN Administration Blood Pressure - High Dextrose 1,000 mls @ 100 mls/hr 01/25/25 20:46 Dextrose 5% 1,000 Ml IVPB PRN PRN Hypoglycemia Protocol Meropenem 1 gm in 100 mls @ 200 mls/hr 01/29/25 13:00 02/10/25 05:52 IVPB 100 mls/hr Q8HR KANDIS Administration Metronidazole 500 mg in 100 mls @ 100 mls/hr 02/04/25 12:00 02/10/25 05:52 Flagyl 500 Mg/Iso Soln 100 Ml IVPB 100 mls/hr Q6HR KANDIS Administration Insulin Aspart 4 - 8 units 02/02/25 18:00 02/10/25 06:54 Insulin Aspart (*Bkc) 100 Units/Ml SUB-Q 4 units Q6H KANDIS Administration Protocol Insulin Glargine 10 units 01/29/25 21:00 02/01/25 21:11 Insulin Glargine (*Bkc) 100 Units/Ml SUB-Q 10 units HS KANDIS Administration Insulin Glargine 20 units 02/06/25 07:55 02/07/25 08:43 Insulin Glargine (*Bkc) 100 Units/Ml SUB-Q 20 units DAILY KANDIS Administration Ipratropium [place] 0.5 mg 02/08/25 14:00 02/10/25 08:53 Ipratropium Br 0.02% Inh Soln 0.5 Mg/2.5 Ml Vial INHALATION 0.5 mg Q6HRT KANDIS Administration Lactobacillus Acidophilus 1 pkt 02/03/25 09:00 02/07/25 12:15 Acidophilus Packet 1 Pkt Packet PO Not Given QID KANDIS Levalbuterol HCl 0.63 mg 02/08/25 14:00 02/10/25 08:53 Levalbuterol Neb 1.25 Mg/3 Ml INHALATION 0.63 mg Q6HRT KANDIS Administration Metoprolol Tartrate 5 mg 02/09/25 23:21 02/09/25 23:57 Metoprolol Tartrate Inj 5 Mg/5 Ml Vial IV PUSH 5 mg Q4H PRN Administration afib >130 Ondansetron HCl 4 mg 01/25/25 20:51 02/06/25 22:13 Ondansetron Inj 4 Mg/2 Ml Vial IV PUSH 4 mg Q6H PRN Administration Nausea And Vomiting Pantoprazole Sodium 40 mg 02/08/25 09:00 02/10/25 08:54 Pantoprazole Sodium Iv 40 Mg Vial IV PUSH 40 mg Q12HR KANDIS Administration Sodium Chloride 10 ml 02/02/25 14:00 02/10/25 05:52 Central Line Flush IV PUSH 10 ml Q8HR KANDIS Administration Sodium Chloride 20 ml 02/02/25 13:47 02/03/25 21:40 Central Line Flush IV PUSH 20 ml PRN PRN Administration after blood draws Radiology Results: ITS Impressions Pelvis CT 01/26/25 14:17 IMPRESSION: 1. No significant change in a bilobed gas and fluid containing abscess in the deep pelvis. Patient canceled the planned percutaneous abscess drainage catheter placement due to discomfort despite attempts at repositioning. Abdomen/Pelvis CT 01/29/25 09:28 Impression: Stable large bilobed multilocular abscess in the pelvis extensively involving the distal sigmoid colon and rectum. Stable wall thickening of the distal sigmoid colon and rectum. Small right pleural effusion with right basilar atelectatic change. Cholelithiasis. Nephrolithiasis bilaterally, as detailed above. Catheter Placement CT 02/02/25 16:48 IMPRESSION: 1. Technically successful CT-guided drainage catheter placement with likely translocation and overwhelming sepsis following initial aspiration with subsequent cardiac and respiratory arrest. 2. 12-14 mL fluid was sent for aerobic and anaerobic cultures. Please see separate CODE BLUE flow sheet for additional details of the CODE BLUE portion of the case. Abdomen X-Ray 02/07/25 08:16 IMPRESSION: NO ACUTE ABDOMINAL FINDINGS. Chest X-Ray 02/08/25 06:49 Impression: Moderate bilateral pleural effusions with bibasilar pulmonary edema/atelectasis. Modified Barium Swallow 02/08/25 10:52 IMPRESSION: Pharyngeal dysphagia with laryngeal penetration and aspiration. Please correlate with speech pathologist findings and specific feeding recommendations. Labs Labs: Laboratory Results - last 24 hr 02/09/25 02/09/25 02/09/25 11:58 17:56 23:59 WBC RBC Hgb Hct MCV MCH MCHC RDW Plt Count MPV Sodium Potassium Chloride Carbon Dioxide Anion Gap BUN Creatinine Estim Creat Clear Calc Estimated GFR Glucose POC Capillary Glucose 164 H 179 H 207 H Calcium Total Bilirubin AST ALT Alkaline Phosphatase Total Protein Albumin 02/10/25 05:58 WBC 10.8 H RBC 3.56 L Hgb 8.8 L Hct 30.6 L MCV 86.0 MCH 24.7 L MCHC 28.8 L RDW 19.6 H Plt Count 274 MPV 10.6 H Sodium 151 H Potassium 3.3 L Chloride 112 H Carbon Dioxide 36 H Anion Gap 3 L BUN 61 H Creatinine 0.87 Estim Creat Clear Calc 62 Estimated GFR > 60 Glucose 235 H POC Capillary Glucose Calcium 8.2 L Total Bilirubin 1.7 H AST 24 ALT 15 Alkaline Phosphatase 95 Total Protein 6.0 L Albumin 2.4 L
--- NOTE | 2025-02-10 11:08 | PCNFU ---
Nutrition Follow-Up Complete: Inadequate energy intake related to swallowing difficulty as evidenced by NPO - Being addressed with tube feeding currently Diet textures appropriate for patient needs - Tube feeding currently Goal: Pt current nutrition is NPO, Tube feeding Glucerna 1.2 @ 30 ml/h with goal rate 65 ml/h. Flush 100 ml q 4 h. Nutrition recommendation: Advance tube feeding to goal rate 65 ml/g as tolerated. Continue flushes Last recorded weight is 110 kg. Bowel Motility: +1 BM 5/6 liquid stool per FMS Labs Reviewed: Hgb 10.4, Hct 34.9, BUN 48, Cre 1.61 Meds Noted: Insulin, protonix Skin: WNL Additional Notes: [facility] for tube feeding due to failed MBS. Tube feeding not at goal yet, pt was somewhat confused yesterday and indicated feeling like tube feeding was coming back up; RN today says no further complaints so TF was advanced to 30 ml/h. RN says mental status is better and pt may be able to swallow; repeat MBS recommended when appropriate. Glucerna 1.2 @ goal rate 65 ml/h provides 1716 kcal, 85 g protein, 1750 ml total free water/day with 100 ml flushes QID included. 16 kcal/kg, 0.8 g protein/kg. Will need to increase goal if tube feeding is longer term. Continue current orders. Monitor swallowing ability, intake, wt, labs. Follow up in 3 days.
[2025-02-10 11:12] LABS: Glucose Point of Care 222 mg/dl (65-105)
--- NOTE | 2025-02-10 12:29 | P.CONCA_ITS ---
Assessment and Plan Assessment and plan (1) Paroxysmal atrial fibrillation with RVR: Code(s): I48.0 - Paroxysmal atrial fibrillation Status: Acute Plan 1. Paroxysmal atrial fibrillation with RVR. Atrial fibrillation appears to be a new diagnosis for the patient. 2. Pelvic abscess s/p drain placement 3. Cardiac arrest after placement of percutaneous drain in the pelvic abscess 4. Hypernatremia 5. Septic shock, shock now resolved 6. Respiratory failure requiring mechanical ventilation, now extubated 7. Acute on chronic anemia requiring blood transfusion 8. Hypertension PLAN: -Telemetry shows PAF with RVR. Will start Metoprolol 25mg Q6H. The AFIB should improve as she recovers from her acute illnesses. -Given anemia requiring blood transfusion earlier in hospital course, will not plan to start anticoagulation for stroke risk reduction at this time. History of Present Illness History of Present Illness Consult date/time: 02/10/25 12:29 Requesting physician: Enrico Hopkins MD Consult reason: atrial fibrillation Reason For Visit: Sigmoid colon abscess Narrative: We are consulted for atrial fibrillation with RVR. This is a 74 year old female who has been admitted since 01/25. Initially came in with septic shock, pelvic abscess that was drained by IR. Had cardiac arrest after placement of the percutaneous drain. Hospital course also complicated by acute on chronic anemia requiring blood transfusions. She initially did have atrial fibrillation with RVR, but was maintaining sinus rhythm. She is now out of the ICU and on the floor and is back in AFIB with RVR. Telemetry shows PAF. Echocardiogram this admission shows LVEF 55-60%. Review of Systems 2 Review of Systems: All systems reviewed & are unremarkable except as noted in HPI and below (HPI) FORMERLY [facility], [facility] Past Medical History Medical History Diabetes 1.5, managed as type 2 Hypertension Surgical History Surgical History No history of previous surgery Family History Family History Mother Heart attack Diabetes mellitus Type II DM Father , heart attack Heart attack Heart disease Sibling , gynecological cancer (lining of uterus per patient) No problems noted. Social History Social History (Reviewed 02/10/25 @ 12:33 by TAVO Vargas Smoking status: Never smoker Second hand tobacco smoke exposure: No Alcohol intake: never Alcohol use details: occasional, [id number] Substance use: never Substance use type: does not use Do You Feel Safe in your Home?: Yes Lack of Transportation: No Lack of Food: Never True Current Housing: I Have Housing Concerned About Future Housing: No Difficulty Paying Gas/Electric Bills: No Difficulty Paying for Meds: No Currently Unemployed: No Education: Bachelor's Degree Difficulty w/ Childcare or Family Care: No Spiritual care concerns: No Meds Home Medications and Allergies Home Medications ?Medication ?Instructions ?Recorded ?Confirmed ?Type triamterene 37.5 1 cap PO DAILY 09/22/19 01/25/25 History mg-hydrochlorothiazide 25 mg capsule verapamil 240 mg tablet,extended 240 mg PO BID 09/22/19 01/25/25 History release lancets 30 gauge (BD Microtainer #200 ea 11/04/24 01/25/25 Rx Lancet) blood sugar diagnostic (Blood #100 ea 11/23/24 01/25/25 Rx Glucose Test strips) blood-glucose meter #1 ea 11/23/24 01/25/25 Rx pioglitazone 45 mg tablet See Rx Instructions .Route 11/24/24 01/25/25 Rx .COMPLEX #90 tabs glimepiride 4 mg tablet 4 mg PO BID #180 tabs 12/17/24 01/25/25 Rx metoprolol succinate 50 mg 50 mg PO DAILY #180 tabs 12/17/24 01/25/25 Rx tablet,extended release 24 hr Allergies Allergy/AdvReac Type Severity Reaction Status Date / Time ciprofloxacin (From Cipro) Allergy Rash Verified 01/25/25 10:42 codeine Allergy Rash Verified 01/25/25 10:42 ibuprofen (From Advil) AdvReac Other Verified 01/25/25 10:42 naproxen (From Aleve) AdvReac Other Verified 01/25/25 10:42 Vital Signs Vital Signs - 24 hr 02/09/25 15:11 02/09/25 15:21 02/09/25 15:59 Temperature 36.9 C Pulse Rate 92 93 96 Respiratory Rate 20 20 21 H Blood Pressure 160/53 H Pulse Oximetry 94 Oxygen Delivery Oxygen Flow Rate Fraction of Inspired Oxygen 02/09/25 16:00 02/09/25 16:00 02/09/25 16:54 Temperature Pulse Rate 95 138 H Respiratory Rate Blood Pressure Pulse Oximetry 94 Oxygen Delivery Nasal Cannula Oxygen Flow Rate 2 Fraction of Inspired Oxygen 02/09/25 18:00 02/09/25 18:19 02/09/25 20:00 Temperature Pulse Rate 129 H 130 H 117 H Respiratory Rate 21 H Blood Pressure Pulse Oximetry 100 Oxygen Delivery Nasal Cannula Oxygen Flow Rate 2 Fraction of Inspired Oxygen 02/09/25 20:00 02/09/25 20:05 02/09/25 20:06 Temperature Pulse Rate 117 H 124 H 124 H Respiratory Rate 18 18 Blood Pressure Pulse Oximetry 96 Oxygen Delivery High Flow Nasal Cannula Oxygen Flow Rate 2 Fraction of Inspired Oxygen 02/09/25 20:06 02/09/25 20:14 02/09/25 22:00 Temperature 37.0 C Pulse Rate 122 H 126 H 149 H Respiratory Rate 22 H 16 Blood Pressure 117/62 Pulse Oximetry 99 Oxygen Delivery Oxygen Flow Rate Fraction of Inspired Oxygen 02/09/25 23:34 02/09/25 23:57 02/10/25 00:00 Temperature 36.7 C Pulse Rate 149 H 138 H 114 H Respiratory Rate 18 18 Blood Pressure 128/79 Pulse Oximetry 100 100 Oxygen Delivery Nasal Cannula Oxygen Flow Rate 1 Fraction of Inspired Oxygen 02/10/25 00:00 02/10/25 02:00 02/10/25 02:02 Temperature Pulse Rate 114 H 131 H 115 H Respiratory Rate 16 Blood Pressure Pulse Oximetry Oxygen Delivery Oxygen Flow Rate Fraction of Inspired Oxygen 02/10/25 02:14 02/10/25 04:00 02/10/25 04:00 Temperature Pulse Rate 122 H 117 H 117 H Respiratory Rate 16 16 Blood Pressure Pulse Oximetry 100 Oxygen Delivery Nasal Cannula Oxygen Flow Rate 1 Fraction of Inspired Oxygen 32 02/10/25 04:22 02/10/25 05:50 02/10/25 08:05 Temperature 37.1 C 36.7 C Pulse Rate 140 H 124 H 141 H Respiratory Rate 20 22 H Blood Pressure 116/57 L 115/56 L Pulse Oximetry 97 95 Oxygen Delivery Oxygen Flow Rate Fraction of Inspired Oxygen 02/10/25 08:53 02/10/25 08:53 02/10/25 09:03 Temperature Pulse Rate 120 H 112 H Respiratory Rate 20 20 Blood Pressure Pulse Oximetry 93 Oxygen Delivery Nasal Cannula Oxygen Flow Rate 1 Fraction of Inspired Oxygen 05/07/25 11:32 Temperature 36.4 C Pulse Rate 129 H Respiratory Rate 21 H Blood Pressure 110/56 L Pulse Oximetry 94 Oxygen Delivery Oxygen Flow Rate Fraction of Inspired Oxygen Exam 2 Const: Other: Ill-appearing female HENMT: Other: Dobhoff feeding tube in place Resp: Effort & Inspection: normal respiratory effort Cardio: Rate: tachycardic Rhythm: abnormal rhythm irregularly irregular Heart sounds: no murmurs Psych: Mental Status: mental status grossly normal Affect: normal affect Results Labs and Meds 02/10/25 05:58 02/10/25 05:58 Lab results: Cardiac Enzymes 02/10/25 Range/Units 05:58 AST 24 (14-36) U/L CBC 02/10/25 Range/Units 05:58 WBC 10.8 H (4.5-10.0) K/mm3 RBC 3.56 L (4.2-5.4) M/mm3 Hgb 8.8 L (12.0-15.0) g/dL Hct 30.6 L (37.0-47.0) % Plt Count 274 (150-375) k/mm3 Comprehensive Metabolic Panel 02/10/25 Range/Units 05:58 Sodium 151 H (137-145) mmol/L Potassium 3.3 L (3.4-5.0) mmol/L Chloride 112 H (98-107) mmol/L Carbon Dioxide 36 H (22-30) mmol/L BUN 61 H (7-17) mg/dL Creatinine 0.87 (0.7-1.0) mg/dL Glucose 235 H (65-110) mg/dL Calcium 8.2 L (8.4-10.2) mg/dL AST 24 (14-36) U/L ALT 15 (6-35) U/L Alkaline Phosphatase 95 (38-126) U/L Total Protein 6.0 L (6.3-8.2) g/dL Albumin 2.4 L (3.5-5.1) g/dL Intake and Output 02/09/25 02/10/25 02/10/25 23:59 07:59 15:59 Intake Total 200 100 Output Total 170 200 Balance 30 -100 Intake: IV 200 100 Meropenem 1 gm/Ns 100 ml 1 gm 100 In 100 ml @ 200 mls/hr IVPB Q8HR KANDIS Rx#:[id number] metroNIDAZOLE 500 MG/ISO 100ML 100 100 500 mg In 100 ml @ 100 mls/hr IVPB Q6HR [facility] Rx#:[id number] Oral 0 Output: Catheter Urine 150 200 Urethral Catheter 150 200 Drain 20 Percutaneous Left Lateral Hip(s 20 ) Other: Number of Bowel Movements Today 1 Patient Weight 02/10/25 23:59 Weight 110 kg
[2025-02-10] MEDS: METOPROLOL TARTRATE 25 MG TABLET PO ×2 (12:47→18:39)
[2025-02-10] MEDS: DEXTROSE 5% 1,000 ML 1,000 ML 50 ML IV CONT (12:53)
[2025-02-10] MEDS: POTASSIUM CHLORIDE INJ 40 MEQ in SODIUM CHLORIDE 0.9% IV 500 ML 130 MEQ IVPB (13:55)
--- NOTE | 2025-02-10 14:38 | PCSTNOTE ---
Upon chart review, recommended bedside swallow evaluation order be changed to a modified barium swallow study order. MD notified and agreeable. Evaluation to be completed 02/11.
[2025-02-10 18:12] LABS: Glucose Point of Care 223 mg/dl (65-105)
[2025-02-11] VITALS (32 sets, daily range): BP systolic 125–164; BP diastolic 63–73; PULSE 65–94; RESP 18–20; TEMP 36.4–36.6; O2SAT 91–98
[2025-02-11] MEDS: INSULIN ASPART (*BKC) 100 UNITS/ML SUB-Q ×4 (00:02→22:52)
[2025-02-11 00:03] LABS: Glucose Point of Care 213 mg/dl (65-105)
[2025-02-11] MEDS: metroNIDAZOLE 500 MG/ISO 100ML 500 MG/100 ML BAG 100 MG IVPB ×2 (00:03→06:15)
[2025-02-11] MEDS: METOPROLOL TARTRATE 25 MG TABLET PO ×4 (00:03→18:11)
[2025-02-11] MEDS: IPRATROPIUM BR 0.02% INH SOLN 0.5 MG/2.5 ML VIAL INHALATION ×4 (01:25→20:08)
[2025-02-11] MEDS: LEVALBUTEROL NEB 1.25 MG/3 ML 0.63 MG INHALATION ×4 (01:26→20:08)
[2025-02-11] MEDS: MEROPENEM 1 GM/NS 100 ML 1 GM/100 ML BAG IVPB ×3 (05:15→22:53)
[2025-02-11] MEDS: CENTRAL LINE FLUSH 10 ML IV PUSH (06:15)
--- NOTE | 2025-02-11 07:29 | PM.IMPN ---
Progress Note: A&P Assessment and Plan (1) Cardiac arrest: Code(s): I46.9 - Cardiac arrest, cause unspecified Status: Acute Assessment and Plan: Resolved Patient had a cardiac arrest after placement of a percutaneous drain in the pelvic abscess. Could be related to vasovagal, translocation of bacteria, hypoxia as patient was laying flat, hypovolemia, acidosis -successful ROSC x2, intubated in the CT scan suite by ER physician -patient did follow commands post code a continue, so not a candidate for targeted temperature management -will continue to treat underlying cause (2) Septic shock: Code(s): A41.9 - Sepsis, unspecified organism; R65.21 - Severe sepsis with septic shock Status: Acute Assessment and Plan: 02/01:In the ICU patient dropped her blood pressures -patient has been adequately fluid-resuscitated with IV fluids and albumin -01/25: Blood cultures negative x2 -02/02: repeat blood cultures -growing E coli (pansensitive) and Clostridium ramosum -02/02: Abscess fluid culture growing E coli and Bacteroides fragilis 02/03: WBC count up to 64, could be related to septic shock, infection, leukomoid reaction, steroids. Will continue to monitor -WBC count is trending down, patient is afebrile, continue to monitor --continue meropenem, Flagyl 02/04: Discontinue vancomycin -continue doxycycline for 5 days - weaning stress dose steroid -off all pressors (patient was on Levophed, Bobo-Synephrine and vasopressin) -WBC count trending down 02/04: Repeat blood cultures growing Clostridium ramosum, bacteroids fragilis 02/09: Repeat blood culture shows no growth (3) Acute respiratory failure: Qualifiers: Respiratory failure complication: hypoxia Qualified Code(s): J96.01 - Acute respiratory failure with hypoxia Code(s): J96.00 - Acute respiratory failure, unspecified whether with hypoxia or hypercapnia Status: Acute Assessment and Plan: Acute respiratory failure likely related to cardiac arrest possible from septic shock, infection, hypovolemia, translocation of bacteria, acidosis, hypoxia -patient intubated in the CT scan suite by ER physician -02/06: Extubated Accidentally coughed upper ETT was on pressure support ventilation 10/5 for approximately 3 hours and 40 minutes -chest x-ray and ABGs reviewed -Moderate bilateral pleural effusions with bibasilar pulmonary edema/atelectasis. -continue Xopenex and Atrovent nebulizer -OFF Precedex infusion, -diuresed well with Lasix on 02/06, 02/07 -02/08: will diurese again today after placing potassium -s/p on Airvo 45% FiO2 and 45 L flow rate -patient is currently on 2 L -Continue Meropenem and Metronidazole (4) Intra-abdominal abscess: Code(s): K65.1 - Peritoneal abscess Status: Acute Assessment and Plan: Intra-abdominal abscess, status post percutaneous IR drain placement on 02/01/2025 -draining purulent material, cultures as above -surgery is following the patient -Continue Meropenem and Metronidazole (5) Diabetes 1.5, managed as type 2: Code(s): E13.9 - Other specified diabetes mellitus without complications Status: Acute Assessment and Plan: Continue Accu-Cheks and sliding scale insulin -will discontinue Lantus for now as patient is NPO, off a stress dose steroid -Tolerating nutrition through NG (6) Hypertension: Qualifiers: Hypertension type: unspecified Qualified Code(s): I10 - Essential (primary) hypertension Code(s): I10 - Essential (primary) hypertension Status: Acute Assessment and Plan: Patient just came off pressors, continue to hold antihypertensives for now -continue p.r.n. hydralazine IV -once patient starts taking p.o. with will add her home antihypertensive (7) Anemia: Qualifiers: Anemia type: other cause Other causes of anemia: chronic disease, other Qualified Code(s): D63.8 - Anemia in other chronic diseases classified elsewhere Code(s): D64.9 - Anemia, unspecified Status: Acute Assessment and Plan: 02/03: Hemoglobin dropped to 6.3. -will transfuse 1 unit of packed RBC -hemoglobin stable -02/05: hemoglobin dropped to 7.0 -status post 1 unit of packed RBC -iron panel reflective of iron deficiency anemia and/or anemia of chronic disease -folic acid and vitamin B12 levels within normal limits -stool occult was positive -appreciate GI evaluation and recommendations -hemoglobin is stable, continue to monitor (8) Hypernatremia: Code(s): E87.0 - Hyperosmolality and hypernatremia Status: Acute Assessment and Plan: Possibly due to dehydration Increased flushing 150 mL free water q.4 hours via NG (9) Atrial fibrillation: Code(s): I48.91 - Unspecified atrial fibrillation Status: Acute Assessment and Plan: Started Metoprolol PO q 6 hrs [id number] score 3(Age,sex,DM) New onset. Order TSH ECHO:Left ventricular systolic function is normal, estimated at 55-60% Will defer anticoagulation until discussion with Surgery and Cardiology Subjective Date/time seen: 02/11/25 07:29 Interval history: Patient underwent MBS again today and was able to perform better than last time. Patient is started on level 7 food. As per surgery will discuss with radiologist for further intervention. Review of Systems Review of Systems: All systems reviewed & are unremarkable except as noted in HPI and below ROS unobtainable: Yes unobtainable due to endotracheal tube, unobtainable due to medical condition and unobtainable due to mental status Exam Narrative: General: Obese female, currently in no acute distress HEENT:? Pupils equal and reactive, sclera is clear, Airvo in place Neck:? Supple Respiratory:? Coarse breath sounds bilaterally, decreased at bases, no wheezing, adequate air entry Cardiac:? S1-S2 normal, regular rate and rhythm Abdomen:? Soft, nontender, obese, hypoactive bowel sounds, left lower quadrant drain in place with purulent drainage Extremities:? Bilateral upper and lower extremity pitting edema Neuro:? Of Precedex. More awake, alert, able to answer questions, follows simple commands, Skin:? No skin lesions noted Psych:? Depressed affect Const: General: comfortable and no acute distress Other: , female, elderly, disheveled. Nontoxic appearance. HENMT: Face/Nose/Sinus: Normal nares present Mouth: Yes moist mucous membranes Eyes: General: appearance normal, both eyes and all related structures Sclera: sclerae normal Pupils: Equal, round and reactive pupils present EOM: EOMs intact bilaterally Resp: Effort & Inspection: normal respiratory effort Auscultation: clear to auscultation bilaterally Cardio: Rate: regular rate Rhythm: regular rhythm Other: S1-S2 present without murmur, rub, ectopy GI: Other: tender in the lower quadrants. hyperactive bowel sounds in the upper quadrants, normoactive in the lower. Nondistended, soft. Skin: General skin exam: normal color and no rashes or lesions noted Wounds: no wounds Neuro: Cranial nerves: Yes Equal, round and reactive pupils present Speech: normal speech Motor exam (neuro): 5/5 motor strength present throughout Sensory Exam: normal sensation Other: A&O x4 Extrem: General: normal to inspection Psych: Mental Status: mental status grossly normal Affect: normal affect Other: Malodorous, disheveled. Fair insight and judgment, pleasant. Objective Data Vital Signs Vital Signs: Vital Signs - 24 hr 02/10/25 08:00 02/10/25 08:05 02/10/25 08:53 Temperature 98.1 F Pulse Rate 120 H 141 H Respiratory Rate 22 H Blood Pressure 115/56 L Pulse Oximetry 95 93 Oxygen Delivery Nasal Cannula Oxygen Flow Rate 1 02/10/25 08:53 02/10/25 09:03 02/10/25 10:00 Temperature Pulse Rate 120 H 112 H 115 H Respiratory Rate 20 20 Blood Pressure Pulse Oximetry Oxygen Delivery Oxygen Flow Rate 02/10/25 11:32 02/10/25 12:00 02/10/25 12:47 Temperature 97.6 F Pulse Rate 129 H 131 H 107 H Respiratory Rate 21 H Blood Pressure 110/56 L Pulse Oximetry 94 Oxygen Delivery Oxygen Flow Rate 02/10/25 14:00 02/10/25 15:04 02/10/25 15:19 Temperature Pulse Rate 117 H 87 89 Respiratory Rate 20 20 Blood Pressure Pulse Oximetry Oxygen Delivery Oxygen Flow Rate 02/10/25 16:00 02/10/25 16:15 02/10/25 18:00 Temperature 97.5 F L Pulse Rate 92 93 89 Respiratory Rate 20 Blood Pressure 127/53 L Pulse Oximetry 96 Oxygen Delivery Oxygen Flow Rate 02/10/25 18:39 02/10/25 19:54 02/10/25 19:55 Temperature Pulse Rate 89 88 88 Respiratory Rate 20 20 Blood Pressure Pulse Oximetry 96 Oxygen Delivery Nasal Cannula Oxygen Flow Rate 1 02/10/25 19:57 02/10/25 20:08 02/10/25 20:09 Temperature Pulse Rate 81 92 Respiratory Rate 20 Blood Pressure Pulse Oximetry 94 Oxygen Delivery Nasal Cannula Oxygen Flow Rate 1 02/10/25 20:13 02/10/25 23:00 02/11/25 00:00 Temperature 97.6 F Pulse Rate 82 85 80 Respiratory Rate 20 20 Blood Pressure 129/57 L Pulse Oximetry 92 92 Oxygen Delivery Nasal Cannula Oxygen Flow Rate 1 02/11/25 00:00 02/11/25 00:03 02/11/25 00:42 Temperature 97.7 F Pulse Rate 80 87 83 Respiratory Rate 20 Blood Pressure 155/65 H Pulse Oximetry 93 Oxygen Delivery Oxygen Flow Rate 02/11/25 01:26 02/11/25 01:36 02/11/25 03:38 Temperature Pulse Rate 87 81 84 Respiratory Rate 20 20 Blood Pressure Pulse Oximetry Oxygen Delivery Oxygen Flow Rate 02/11/25 03:41 02/11/25 04:10 02/11/25 06:00 Temperature 97.7 F Pulse Rate 84 84 84 Respiratory Rate 20 20 Blood Pressure 134/67 Pulse Oximetry 92 92 Oxygen Delivery Nasal Cannula Oxygen Flow Rate 1 02/11/25 06:15 Temperature Pulse Rate 84 Respiratory Rate Blood Pressure Pulse Oximetry Oxygen Delivery Oxygen Flow Rate Intake/Output Intake/Output: Intake & Output 02/08/25 02/09/25 02/10/25 02/11/25 23:59 23:59 23:59 23:59 Intake Total 800 800 700 200 Output Total 3325 1170 770 400 [facility] -2525 -370 -70 -200 Meds/Results Medications: Active Medications Generic Name Dose Route Start Last Admin Trade Name Freq PRN Reason Stop Dose Admin Acetaminophen 650 mg 01/25/25 20:51 02/01/25 19:04 Acetaminophen 325 Mg Tablet PO 650 mg Q4H PRN Administration Headache Dextrose 12.5 gm 01/25/25 20:46 01/26/25 11:40 Dextrose 50% 25 Gm/50 Ml Syringe IV PUSH 12.5 gm PRN PRN Administration Hypoglycemia Protocol Enoxaparin Sodium 40 mg 02/08/25 09:00 02/10/25 08:53 Enoxaparin 40 Mg/0.4 Ml Syringe SUB-Q 40 mg DAILY KANDIS Administration Fluticasone Propionate 1 spray 02/07/25 11:00 02/10/25 21:09 Fluticasone Propionate 0.05% Na Spr 16 Gm Btl (*Bkc) NASAL 1 spray Q12HR KANDIS Administration Glucagon 1 mg 01/25/25 20:46 Glucagon For Inj 1 Mg Vial IM PRN PRN Hypoglycemia Protocol Glucose 15 gm 01/25/25 20:46 Glucose Oral Gel 15 Gm Of Glucse In 37.5 Gm Tube PO PRN PRN Hypoglycemia Protocol Hydralazine HCl 10 mg 05/03/25 09:58 02/08/25 16:30 Hydralazine Hcl 20 Mg/Ml Vial IV PUSH 10 mg Q4H PRN Administration Blood Pressure - High Dextrose 1,000 mls @ 100 mls/hr 01/25/25 20:46 Dextrose 5% 1,000 Ml IVPB PRN PRN Hypoglycemia Protocol Meropenem 1 gm in 100 mls @ 200 mls/hr 01/29/25 13:00 02/11/25 06:18 IVPB Infused Q8HR KANDIS Infusion Metronidazole 500 mg in 100 mls @ 100 mls/hr 02/04/25 12:00 02/11/25 06:15 Flagyl 500 Mg/Iso Soln 100 Ml IVPB 100 mls/hr Q6HR KANDIS Administration Dextrose 1,000 mls @ 50 mls/hr 02/10/25 12:15 02/10/25 12:53 Dextrose 5% 1,000 Ml IV CONT 50 mls/hr .Q20H KANDIS Administration Insulin Aspart 4 - 8 units 02/02/25 18:00 02/11/25 06:14 Insulin Aspart (*Bkc) 100 Units/Ml SUB-Q 4 units Q6H KANDIS Administration Protocol Insulin Glargine 10 units 01/29/25 21:00 02/01/25 21:11 Insulin Glargine (*Bkc) 100 Units/Ml SUB-Q 10 units HS KANDIS Administration Insulin Glargine 20 units 02/06/25 07:55 02/07/25 08:43 Insulin Glargine (*Bkc) 100 Units/Ml SUB-Q 20 units DAILY KANDIS Administration Ipratropium [place] 0.5 mg 02/08/25 14:00 02/11/25 01:25 Ipratropium Br 0.02% Inh Soln 0.5 Mg/2.5 Ml Vial INHALATION 0.5 mg Q6HRT KANDIS Administration Lactobacillus Acidophilus 1 pkt 02/03/25 09:00 02/07/25 12:15 Acidophilus Packet 1 Pkt Packet PO Not Given QID KANDIS Levalbuterol HCl 0.63 mg 02/08/25 14:00 02/11/25 01:26 Levalbuterol Neb 1.25 Mg/3 Ml INHALATION 0.63 mg Q6HRT KANDIS Administration Metoprolol Tartrate 5 mg 02/09/25 23:21 02/09/25 23:57 Metoprolol Tartrate Inj 5 Mg/5 Ml Vial IV PUSH 5 mg Q4H PRN Administration afib >130 Metoprolol Tartrate 25 mg 02/10/25 12:00 02/11/25 06:15 Metoprolol Tartrate 25 Mg Tablet PO 25 mg Q6HR KANDIS Administration Ondansetron HCl 4 mg 01/25/25 20:51 02/06/25 22:13 Ondansetron Inj 4 Mg/2 Ml Vial IV PUSH 4 mg Q6H PRN Administration Nausea And Vomiting Pantoprazole Sodium 40 mg 02/08/25 09:00 02/10/25 21:09 Pantoprazole Sodium Iv 40 Mg Vial IV PUSH 40 mg Q12HR KANDIS Administration Sodium Chloride 10 ml 02/02/25 14:00 02/11/25 06:15 Central Line Flush IV PUSH 10 ml Q8HR KANDIS Administration Sodium Chloride 20 ml 02/02/25 13:47 02/03/25 21:40 Central Line Flush IV PUSH 20 ml PRN PRN Administration after blood draws Radiology Results: ITS Impressions Pelvis CT 01/26/25 14:17 IMPRESSION: 1. No significant change in a bilobed gas and fluid containing abscess in the deep pelvis. Patient canceled the planned percutaneous abscess drainage catheter placement due to discomfort despite attempts at repositioning. Catheter Placement CT 02/02/25 16:48 IMPRESSION: 1. Technically successful CT-guided drainage catheter placement with likely translocation and overwhelming sepsis following initial aspiration with subsequent cardiac and respiratory arrest. 2. 12-14 mL fluid was sent for aerobic and anaerobic cultures. Please see separate CODE BLUE flow sheet for additional details of the CODE BLUE portion of the case. Abdomen X-Ray 02/07/25 08:16 IMPRESSION: NO ACUTE ABDOMINAL FINDINGS. Chest X-Ray 02/08/25 06:49 Impression: Moderate bilateral pleural effusions with bibasilar pulmonary edema/atelectasis. Modified Barium Swallow 02/08/25 10:52 IMPRESSION: Pharyngeal dysphagia with laryngeal penetration and aspiration. Please correlate with speech pathologist findings and specific feeding recommendations. Abdomen/Pelvis CT 02/10/25 18:48 IMPRESSION: Interval resolution of the abscess previously detected within the vesicouterine pouch for which pigtail catheter can be removed. Residual rim-enhancing fluid collection within the rectouterine pouch measuring 6.5 cm in greatest dimension. Interval development of bilateral pleural effusions, right greater than left with right basilar consolidation. Labs Labs: Laboratory Results - last 24 hr 02/10/25 02/10/25 02/10/25 11:10 18:08 23:51 POC Capillary Glucose 222 H 223 H 213 H Quality VTE Prophylaxis VTE prophylaxis: pharmacologic ordered Hospitalist MIPS Advance Care Plan I have confirmed that the patient's Advanced Care Plan is present, code status is documented, or surrogate decision maker is listed in patient medical record.: Yes Medication Reconciliation I have utilized all available resources to obtain, update and review the patients current medications (includes all prescriptions, OTC, herbals, cannabis, and nutritional supplements).: Yes
[2025-02-11 08:24] LABS: Hematocrit 31.2 % (37.0-47.0); Mean Corpuscular HGB Conc 28.8 g/dl (32-36); Mean Corpuscular Hemoglobin 24.8 pg (26-34); Mean Platelet Volume 10.5 fl (7.4-10.4); Platelet Count Result 281 k/mm3 (150-375); Red Blood Count 3.63 M/mm3 (4.2-5.4); Red Cell Distribution Width 20.2 % (11.5-14.5); White Blood Count 13.1 K/mm3 (4.5-10.0)
[2025-02-11 08:34] LABS: Alanine Aminotransferase 14 U/L (6-35); Albumin Level 2.4 g/dL (3.5-5.1); Alkaline Phosphatase 111 U/L (38-126); Anion Gap 1 mmol/L (4-12); Aspartate Amino Transferase 21 U/L (14-36); Bilirubin,Total 1.1 mg/dL (0.2-1.3); Blood Urea Nitrogen 58 mg/dL (7-17); Calcium 8.1 mg/dL (8.4-10.2); Carbon Dioxide 37 mmol/L (22-30); Chloride 115 mmol/L (98-107); Estimated CRCL calculation 79 ml/min; Estimated Glomerular Filt Rate > 60; Glucose 227 mg/dL (65-110); Potassium 3.6 mmol/L (3.4-5.0); Sodium 153 mmol/L (137-145)
--- NOTE | 2025-02-11 08:52 | PCOTNOTE ---
The patient treatment was not able to be completed. MBS 9:00. Will plan to continue treatment per plan of care.
[2025-02-11] MEDS: DEXTROSE 5% 1,000 ML 1,000 ML 50 ML IV CONT (09:58)
[2025-02-11] MEDS: ENOXAPARIN 40 MG/0.4 ML SYRINGE SUB-Q (10:01)
[2025-02-11] MEDS: PANTOPRAZOLE SODIUM IV 40 MG VIAL IV PUSH ×2 (10:01→20:37)
--- NOTE | 2025-02-11 11:43 | P.PNGS_ITS ---
Progress Note: A&P Assessment and Plan (1) Intra-abdominal abscess: Code(s): K65.1 - Peritoneal abscess Status: Acute Assessment and Plan: drain removed at bedside, will d/w IR re: second abscess, WBC sl increased but exam cont to be benign, cont TF, cont IV abx Subjective Subjective Date/Time Seen: 02/11/25 11:43 Interval history: feels ok, more alert today Review of Systems Review of Systems: All systems reviewed & are unremarkable except as noted in HPI and below Exam Const: General: cooperative, comfortable, no acute distress and ill appearing Resp: Auscultation: clear to auscultation bilaterally Cardio: Rate: regular rate Rhythm: regular rhythm GI: Inspection: normal to inspection and non-distended GI Palp: No abdominal tenderness and Yes Soft to palpation Objective Data Vital Signs Vital Signs: Vital Signs - 24 hr 02/10/25 12:00 02/10/25 12:47 02/10/25 14:00 Temperature Pulse Rate 131 H 107 H 117 H Respiratory Rate Blood Pressure Pulse Oximetry Oxygen Delivery Oxygen Flow Rate 02/10/25 15:04 02/10/25 15:19 02/10/25 16:00 Temperature Pulse Rate 87 89 92 Respiratory Rate 20 20 Blood Pressure Pulse Oximetry Oxygen Delivery Oxygen Flow Rate 02/10/25 16:15 02/10/25 18:00 02/10/25 18:39 Temperature 36.4 C L Pulse Rate 93 89 89 Respiratory Rate 20 Blood Pressure 127/53 L Pulse Oximetry 96 Oxygen Delivery Oxygen Flow Rate 02/10/25 19:54 02/10/25 19:55 02/10/25 19:57 Temperature Pulse Rate 88 88 81 Respiratory Rate 20 20 Blood Pressure Pulse Oximetry 96 Oxygen Delivery Nasal Cannula Oxygen Flow Rate 1 02/10/25 20:08 02/10/25 20:09 02/10/25 20:13 Temperature 36.4 C Pulse Rate 92 82 Respiratory Rate 20 20 Blood Pressure 129/57 L Pulse Oximetry 94 92 Oxygen Delivery Nasal Cannula Oxygen Flow Rate 1 02/10/25 23:00 02/11/25 00:00 02/11/25 00:00 Temperature Pulse Rate 85 80 80 Respiratory Rate 20 Blood Pressure Pulse Oximetry 92 Oxygen Delivery Nasal Cannula Oxygen Flow Rate 1 02/11/25 00:03 02/11/25 00:42 02/11/25 01:26 Temperature 36.5 C Pulse Rate 87 83 87 Respiratory Rate 20 20 Blood Pressure 155/65 H Pulse Oximetry 93 Oxygen Delivery Oxygen Flow Rate 02/11/25 01:36 02/11/25 03:38 02/11/25 03:41 Temperature Pulse Rate 81 84 84 Respiratory Rate 20 20 Blood Pressure Pulse Oximetry 92 Oxygen Delivery Nasal Cannula Oxygen Flow Rate 1 02/11/25 04:10 02/11/25 06:00 02/11/25 06:15 Temperature 36.5 C Pulse Rate 84 84 84 Respiratory Rate 20 Blood Pressure 134/67 Pulse Oximetry 92 Oxygen Delivery Oxygen Flow Rate 02/11/25 07:55 02/11/25 07:55 02/11/25 08:12 Temperature Pulse Rate 77 80 Respiratory Rate 18 20 Blood Pressure Pulse Oximetry 93 Oxygen Delivery Nasal Cannula Oxygen Flow Rate 1 02/11/25 08:43 Temperature 36.4 C Pulse Rate 85 Respiratory Rate 20 Blood Pressure 130/63 Pulse Oximetry 96 Oxygen Delivery Oxygen Flow Rate Intake/Output Intake/Output: Intake & Output 02/08/25 02/09/25 02/10/25 02/11/25 23:59 23:59 23:59 23:59 Intake Total 800 013 700 2989 Output Total 3325 1170 770 400 Balance -2525 -370 -70 800 Meds/Results Medications: Active Medications Generic Name Dose Route Start Last Admin Trade Name Freq PRN Reason Stop Dose Admin Acetaminophen 650 mg 01/25/25 20:51 02/01/25 19:04 Acetaminophen 325 Mg Tablet PO 650 mg Q4H PRN Administration Headache Dextrose 12.5 gm 01/25/25 20:46 01/26/25 11:40 Dextrose 50% 25 Gm/50 Ml Syringe IV PUSH 12.5 gm PRN PRN Administration Hypoglycemia Protocol Enoxaparin Sodium 40 mg 02/08/25 09:00 02/11/25 10:01 Enoxaparin 40 Mg/0.4 Ml Syringe SUB-Q 40 mg DAILY KANDIS Administration Fluticasone Propionate 1 spray 02/07/25 11:00 02/11/25 10:03 Fluticasone Propionate 0.05% Na Spr 16 Gm Btl (*Bkc) NASAL Not Given Q12HR KANDIS Glucagon 1 mg 01/25/25 20:46 Glucagon For Inj 1 Mg Vial IM PRN PRN Hypoglycemia Protocol Glucose 15 gm 01/25/25 20:46 Glucose Oral Gel 15 Gm Of Glucse In 37.5 Gm Tube PO PRN PRN Hypoglycemia Protocol Hydralazine HCl 10 mg 02/06/25 09:58 02/08/25 16:30 Hydralazine Hcl 20 Mg/Ml Vial IV PUSH 10 mg Q4H PRN Administration Blood Pressure - High Dextrose 1,000 mls @ 100 mls/hr 01/25/25 20:46 Dextrose 5% 1,000 Ml IVPB PRN PRN Hypoglycemia Protocol Meropenem 1 gm in 100 mls @ 200 mls/hr 01/29/25 13:00 02/11/25 06:18 IVPB Infused Q8HR KANDIS Infusion Dextrose 1,000 mls @ 50 mls/hr 02/10/25 12:15 02/11/25 09:58 Dextrose 5% 1,000 Ml IV CONT 50 mls/hr .Q20H KANDIS Administration Insulin Aspart 4 - 8 units 02/02/25 18:00 02/11/25 06:14 Insulin Aspart (*Bkc) 100 Units/Ml SUB-Q 4 units Q6H KANDIS Administration Protocol Insulin Glargine 10 units 01/29/25 21:00 02/01/25 21:11 Insulin Glargine (*Bkc) 100 Units/Ml SUB-Q 10 units HS KANDIS Administration Insulin Glargine 20 units 02/06/25 07:55 02/07/25 08:43 Insulin Glargine (*Bkc) 100 Units/Ml SUB-Q 20 units DAILY KANDIS Administration Ipratropium [place] 0.5 mg 02/08/25 14:00 02/11/25 07:52 Ipratropium Br 0.02% Inh Soln 0.5 Mg/2.5 Ml Vial INHALATION 0.5 mg Q6HRT KANDIS Administration Lactobacillus Acidophilus 1 pkt 02/03/25 09:00 02/07/25 12:15 Acidophilus Packet 1 Pkt Packet PO Not Given QID KANDIS Levalbuterol HCl 0.63 mg 02/08/25 14:00 02/11/25 07:52 Levalbuterol Neb 1.25 Mg/3 Ml INHALATION 0.63 mg Q6HRT KANDIS Administration Metoprolol Tartrate 5 mg 02/09/25 23:21 02/09/25 23:57 Metoprolol Tartrate Inj 5 Mg/5 Ml Vial IV PUSH 5 mg Q4H PRN Administration afib >130 Metoprolol Tartrate 25 mg 02/10/25 12:00 02/11/25 06:15 Metoprolol Tartrate 25 Mg Tablet PO 25 mg Q6HR KANDIS Administration Metronidazole 500 mg 02/11/25 12:00 Metronidazole 500 Mg Tablet PO Q6HR KANDIS Ondansetron HCl 4 mg 01/25/25 20:51 02/06/25 22:13 Ondansetron Inj 4 Mg/2 Ml Vial IV PUSH 4 mg Q6H PRN Administration Nausea And Vomiting Pantoprazole Sodium 40 mg 02/08/25 09:00 02/11/25 10:01 Pantoprazole Sodium Iv 40 Mg Vial IV PUSH 40 mg Q12HR KANDIS Administration Sodium Chloride 10 ml 02/02/25 14:00 02/11/25 06:15 Central Line Flush IV PUSH 10 ml Q8HR KANDIS Administration Sodium Chloride 20 ml 02/02/25 13:47 02/03/25 21:40 Central Line Flush IV PUSH 20 ml PRN PRN Administration after blood draws Radiology Results: ITS Impressions Pelvis CT 01/26/25 14:17 IMPRESSION: 1. No significant change in a bilobed gas and fluid containing abscess in the deep pelvis. Patient canceled the planned percutaneous abscess drainage catheter placement due to discomfort despite attempts at repositioning. Catheter Placement CT 02/02/25 16:48 IMPRESSION: 1. Technically successful CT-guided drainage catheter placement with likely translocation and overwhelming sepsis following initial aspiration with subsequent cardiac and respiratory arrest. 2. 12-14 mL fluid was sent for aerobic and anaerobic cultures. Please see separate CODE BLUE flow sheet for additional details of the CODE BLUE portion of the case. Abdomen X-Ray 02/07/25 08:16 IMPRESSION: NO ACUTE ABDOMINAL FINDINGS. Chest X-Ray 02/08/25 06:49 Impression: Moderate bilateral pleural effusions with bibasilar pulmonary edema/atelectasis. Abdomen/Pelvis CT 02/10/25 18:48 IMPRESSION: Interval resolution of the abscess previously detected within the vesicouterine pouch for which pigtail catheter can be removed. Residual rim-enhancing fluid collection within the rectouterine pouch measuring 6.5 cm in greatest dimension. Interval development of bilateral pleural effusions, right greater than left with right basilar consolidation. Modified Barium Swallow 02/11/25 09:37 IMPRESSION: Pharyngeal dysphagia with laryngeal penetration and aspiration with thin liquids. Please correlate with speech pathologist findings and specific feeding recommendations. Labs Labs: Laboratory Results - last 24 hr 02/10/25 02/10/25 02/11/25 18:08 23:51 08:01 WBC 13.1 H RBC 3.63 L Hgb 9.0 L Hct 31.2 L MCV 86.0 MCH 24.8 L MCHC 28.8 L RDW 20.2 H Plt Count 281 MPV 10.5 H Sodium 153 H Potassium 3.6 Chloride 115 H Carbon Dioxide 37 H Anion Gap 1 L BUN 58 H Creatinine 0.68 L Estim Creat Clear Calc 79 Estimated GFR > 60 Glucose 227 H POC Capillary Glucose 223 H 213 H Calcium 8.1 L Total Bilirubin 1.1 AST 21 ALT 14 Alkaline Phosphatase 111 Total Protein 6.0 L Albumin 2.4 L TSH (Reflex) 1.200
--- NOTE | 2025-02-11 11:44 | PC.NURSE ---
On 02/11/25, the student, [Nhi Bennett], provided care and completed [facility] documentation on this patient. I have reviewed the student's documentation and agree with the findings.
--- NOTE | 2025-02-11 11:49 | PCDIET ---
Nutrition note: Passed MBSS and cleared for L7 diet with mildly thick liquids. Glucerna TID ordered (220 kcal, 10 g protein), mildly thickened.
[2025-02-11 11:57] LABS: Glucose Point of Care 211 mg/dl (65-105)
--- NOTE | 2025-02-11 11:59 | PCSTNOTE ---
Please refer to the Modified Barium Swallow Evaluation in the EMR. Pt was seen for a repeat MBS per her medical status has improved; she is more alert, oriented, and reportedly performing dysphagia exercises independently. Pt was seated for a lateral view and presented with 5 ml thin liquids via a spoon, pudding consistency barium via a spoon, pieces of fruit cocktail coated with barium pudding via a spoon, pieces of cracker coated with barium pudding via a spoon, and mildly thick liquids via a spoon and semi controlled straw sips. The oral stages were WFL. During the pharyngeal stage, the following was exhibited: reduced laryngeal elevation as evidenced by laryngeal penetration during the swallow, reduced laryngeal closure as evidenced by aspiration during the swallow, and mildly reduced tongue base retraction as evidenced by mild residue in the vallecula. With the use of the chin tuck posture, vallecular residue was decreased but she continued to be at risk for aspiration with thin liquid. Impression: improving swallow ability but continues to aspirate thin liquids; Recommendations: level 7 easy to chew diet with mildly thick liquids, pt should have 1:1 meal time supervision to ensure the chin tuck posture, which she should use with all swallows. Small sips and bites; OOB is ideal with all meals in order to perform an effective chin tuck ultimately reducing risk for aspiration. ST will continue dysphagia therapy Thank you for this referral.
--- NOTE | 2025-02-11 12:05 | P.PNCA_ITS ---
Progress Note: A&P Assessment and Plan (1) Paroxysmal atrial fibrillation with RVR: Code(s): I48.0 - Paroxysmal atrial fibrillation Status: Acute Plan 1. Paroxysmal atrial fibrillation with RVR. Atrial fibrillation appears to be a new diagnosis for the patient. 2. Pelvic abscess s/p drain placement 3. Cardiac arrest after placement of percutaneous drain in the pelvic abscess 4. Hypernatremia 5. Septic shock, shock now resolved 6. Respiratory failure requiring mechanical ventilation, now extubated 7. Acute on chronic anemia requiring blood transfusion 8. Hypertension PLAN: -Has converted to sinus rhythm and maintaining sinus. Will switch Metoprolol 25mg Q6H to 50mg BID for easier dosing schedule. -Given anemia requiring blood transfusion earlier in hospital course, will not plan to start anticoagulation for stroke risk reduction at this time. Cardiology will sign off at this time, please call us back if needed. Subjective Date/time seen: 02/11/25 12:05 Interval history: HPI: We are consulted for atrial fibrillation with RVR. This is a 74 year old female who has been admitted since 01/25. Initially came in with septic shock, pelvic abscess that was drained by IR. Had cardiac arrest after placement of the percutaneous drain. Hospital course also complicated by acute on chronic anemia requiring blood transfusions. She initially did have atrial fibrillation with RVR, but was maintaining sinus rhythm. She is now out of the ICU and on the floor and is back in AFIB with RVR. Telemetry shows PAF. Echocardiogram this admission shows LVEF 55-60%. Date of service 02/11: Converted to sinus rhythm yesterday afternoon. Review of Systems Cardiovascular: Cardiovascular: Reports as per HPI Exam Const: Other: Ill-appearing female HENMT: Other: Dobhoff feeding tube in place Resp: Effort & Inspection: normal respiratory effort Cardio: Rate: regular rate Rhythm: regular rhythm Heart sounds: no murmurs Psych: Mental Status: mental status grossly normal Affect: normal affect Objective Data Vital Signs Vital Signs: Vital Signs - 24 hr 02/10/25 12:47 02/10/25 14:00 02/10/25 15:04 Temperature Pulse Rate 107 H 117 H 87 Respiratory Rate 20 Blood Pressure Pulse Oximetry Oxygen Delivery Oxygen Flow Rate 02/10/25 15:19 02/10/25 16:00 02/10/25 16:15 Temperature 36.4 C L Pulse Rate 89 92 93 Respiratory Rate 20 20 Blood Pressure 127/53 L Pulse Oximetry 96 Oxygen Delivery Oxygen Flow Rate 02/10/25 18:00 02/10/25 18:39 02/10/25 19:54 Temperature Pulse Rate 89 89 88 Respiratory Rate 20 Blood Pressure Pulse Oximetry Oxygen Delivery Oxygen Flow Rate 02/10/25 19:55 02/10/25 19:57 02/10/25 20:08 Temperature Pulse Rate 88 81 92 Respiratory Rate 20 20 Blood Pressure Pulse Oximetry 96 Oxygen Delivery Nasal Cannula Oxygen Flow Rate 1 02/10/25 20:09 02/10/25 20:13 02/10/25 23:00 Temperature 36.4 C Pulse Rate 82 85 Respiratory Rate 20 Blood Pressure 129/57 L Pulse Oximetry 94 92 Oxygen Delivery Nasal Cannula Oxygen Flow Rate 1 02/11/25 00:00 02/11/25 00:00 02/11/25 00:03 Temperature Pulse Rate 80 80 87 Respiratory Rate 20 Blood Pressure Pulse Oximetry 92 Oxygen Delivery Nasal Cannula Oxygen Flow Rate 1 02/11/25 00:42 02/11/25 01:26 02/11/25 01:36 Temperature 36.5 C Pulse Rate 83 87 81 Respiratory Rate 20 20 20 Blood Pressure 155/65 H Pulse Oximetry 93 Oxygen Delivery Oxygen Flow Rate 02/11/25 03:38 02/11/25 03:41 02/11/25 04:10 Temperature 36.5 C Pulse Rate 84 84 84 Respiratory Rate 20 20 Blood Pressure 134/67 Pulse Oximetry 92 92 Oxygen Delivery Nasal Cannula Oxygen Flow Rate 1 02/11/25 06:00 02/11/25 06:15 02/11/25 07:55 Temperature Pulse Rate 84 84 Respiratory Rate Blood Pressure Pulse Oximetry 93 Oxygen Delivery Nasal Cannula Oxygen Flow Rate 1 02/11/25 07:55 02/11/25 08:12 02/11/25 08:43 Temperature 36.4 C Pulse Rate 77 80 85 Respiratory Rate 18 20 20 Blood Pressure 130/63 Pulse Oximetry 96 Oxygen Delivery Oxygen Flow Rate 02/11/25 11:45 Temperature 36.5 C Pulse Rate 80 Respiratory Rate 20 Blood Pressure 144/69 H Pulse Oximetry 91 Oxygen Delivery Oxygen Flow Rate Intake/Output Intake/Output: Intake & Output 02/08/25 02/09/25 02/10/25 02/11/25 23:59 23:59 23:59 23:59 Intake Total 800 745 434 1419 Output Total 3325 1170 770 400 Balance -2525 -370 -70 800 Meds/Results Medications: Active Medications Generic Name Dose Route Start Last Admin Trade Name Freq PRN Reason Stop Dose Admin Acetaminophen 650 mg 01/25/25 20:51 02/01/25 19:04 Acetaminophen 325 Mg Tablet PO 650 mg Q4H PRN Administration Headache Dextrose 12.5 gm 01/25/25 20:46 01/26/25 11:40 Dextrose 50% 25 Gm/50 Ml Syringe IV PUSH 12.5 gm PRN PRN Administration Hypoglycemia Protocol Enoxaparin Sodium 40 mg 02/08/25 09:00 02/11/25 10:01 Enoxaparin 40 Mg/0.4 Ml Syringe SUB-Q 40 mg DAILY KANDIS Administration Fluticasone Propionate 1 spray 02/07/25 11:00 02/11/25 10:03 Fluticasone Propionate 0.05% Na Spr 16 Gm Btl (*Bkc) NASAL Not Given Q12HR KANDIS Glucagon 1 mg 01/25/25 20:46 Glucagon For Inj 1 Mg Vial IM PRN PRN Hypoglycemia Protocol Glucose 15 gm 01/25/25 20:46 Glucose Oral Gel 15 Gm Of Glucse In 37.5 Gm Tube PO PRN PRN Hypoglycemia Protocol Hydralazine HCl 10 mg 02/06/25 09:58 02/08/25 16:30 Hydralazine Hcl 20 Mg/Ml Vial IV PUSH 10 mg Q4H PRN Administration Blood Pressure - High Dextrose 1,000 mls @ 100 mls/hr 01/25/25 20:46 Dextrose 5% 1,000 Ml IVPB PRN PRN Hypoglycemia Protocol Meropenem 1 gm in 100 mls @ 200 mls/hr 01/29/25 13:00 02/11/25 06:18 IVPB Infused Q8HR KANDIS Infusion Dextrose 1,000 mls @ 50 mls/hr 02/10/25 12:15 02/11/25 09:58 Dextrose 5% 1,000 Ml IV CONT 50 mls/hr .Q20H KANDIS Administration Insulin Aspart 4 - 8 units 02/02/25 18:00 02/11/25 06:14 Insulin Aspart (*Bkc) 100 Units/Ml SUB-Q 4 units Q6H KANDIS Administration Protocol Insulin Glargine 10 units 01/29/25 21:00 02/01/25 21:11 Insulin Glargine (*Bkc) 100 Units/Ml SUB-Q 10 units HS KANDIS Administration Insulin Glargine 20 units 02/06/25 07:55 02/07/25 08:43 Insulin Glargine (*Bkc) 100 Units/Ml SUB-Q 20 units DAILY KANDIS Administration Ipratropium [place] 0.5 mg 02/08/25 14:00 02/11/25 07:52 Ipratropium Br 0.02% Inh Soln 0.5 Mg/2.5 Ml Vial INHALATION 0.5 mg Q6HRT KANDIS Administration Lactobacillus Acidophilus 1 pkt 02/03/25 09:00 02/07/25 12:15 Acidophilus Packet 1 Pkt Packet PO Not Given QID KANDIS Levalbuterol HCl 0.63 mg 02/08/25 14:00 02/11/25 07:52 Levalbuterol Neb 1.25 Mg/3 Ml INHALATION 0.63 mg Q6HRT KANDIS Administration Metoprolol Tartrate 5 mg 02/09/25 23:21 02/09/25 23:57 Metoprolol Tartrate Inj 5 Mg/5 Ml Vial IV PUSH 5 mg Q4H PRN Administration afib >130 Metoprolol Tartrate 25 mg 02/10/25 12:00 02/11/25 06:15 Metoprolol Tartrate 25 Mg Tablet PO 02/11/25 23:59 25 mg Q6HR KANDIS Administration Metoprolol Tartrate 50 mg 02/12/25 09:00 Metoprolol Tartrate 50 Mg Tab PO Q12HR [facility] Metronidazole 500 mg 02/11/25 12:00 Metronidazole 500 Mg Tablet PO Q6HR [facility] Ondansetron HCl 4 mg 01/25/25 20:51 02/06/25 22:13 Ondansetron Inj 4 Mg/2 Ml Vial IV PUSH 4 mg Q6H PRN Administration Nausea And Vomiting Pantoprazole Sodium 40 mg 02/08/25 09:00 02/11/25 10:01 Pantoprazole Sodium Iv 40 Mg Vial IV PUSH 40 mg Q12HR KANDIS Administration Sodium Chloride 10 ml 02/02/25 14:00 02/11/25 06:15 Central Line Flush IV PUSH 10 ml Q8HR KANDIS Administration Sodium Chloride 20 ml 02/02/25 13:47 02/03/25 21:40 Central Line Flush IV PUSH 20 ml PRN PRN Administration after blood draws Radiology Results: ITS Impressions Pelvis CT 01/26/25 14:17 IMPRESSION: 1. No significant change in a bilobed gas and fluid containing abscess in the deep pelvis. Patient canceled the planned percutaneous abscess drainage catheter placement due to discomfort despite attempts at repositioning. Catheter Placement CT 02/02/25 16:48 IMPRESSION: 1. Technically successful CT-guided drainage catheter placement with likely translocation and overwhelming sepsis following initial aspiration with subsequent cardiac and respiratory arrest. 2. 12-14 mL fluid was sent for aerobic and anaerobic cultures. Please see separate CODE BLUE flow sheet for additional details of the CODE BLUE portion of the case. Abdomen X-Ray 02/07/25 08:16 IMPRESSION: NO ACUTE ABDOMINAL FINDINGS. Chest X-Ray 02/08/25 06:49 Impression: Moderate bilateral pleural effusions with bibasilar pulmonary edema/atelectasis. Abdomen/Pelvis CT 02/10/25 18:48 IMPRESSION: Interval resolution of the abscess previously detected within the vesicouterine pouch for which pigtail catheter can be removed. Residual rim-enhancing fluid collection within the rectouterine pouch measuring 6.5 cm in greatest dimension. Interval development of bilateral pleural effusions, right greater than left with right basilar consolidation. Modified Barium Swallow 02/11/25 09:37 IMPRESSION: Pharyngeal dysphagia with laryngeal penetration and aspiration with thin liquids. Please correlate with speech pathologist findings and specific feeding recommendations. Labs Labs: Laboratory Results - last 24 hr 02/10/25 02/10/25 02/11/25 18:08 23:51 08:01 WBC 13.1 H RBC 3.63 L Hgb 9.0 L Hct 31.2 L MCV 86.0 MCH 24.8 L MCHC 28.8 L RDW 20.2 H Plt Count 281 MPV 10.5 H Sodium 153 H Potassium 3.6 Chloride 115 H Carbon Dioxide 37 H Anion Gap 1 L BUN 58 H Creatinine 0.68 L Estim Creat Clear Calc 79 Estimated GFR > 60 Glucose 227 H POC Capillary Glucose 223 H 213 H Calcium 8.1 L Total Bilirubin 1.1 AST 21 ALT 14 Alkaline Phosphatase 111 Total Protein 6.0 L Albumin 2.4 L TSH (Reflex) 1.200 02/11/25 11:53 WBC RBC Hgb Hct MCV MCH MCHC RDW Plt Count MPV Sodium Potassium Chloride Carbon Dioxide Anion Gap BUN Creatinine Estim Creat Clear Calc Estimated GFR Glucose POC Capillary Glucose 211 H Calcium Total Bilirubin AST ALT Alkaline Phosphatase Total Protein Albumin TSH (Reflex)
[2025-02-11] MEDS: metroNIDAZOLE 500 MG TABLET PO ×3 (14:21→23:17)
[2025-02-11 17:52] LABS: Glucose Point of Care 279 mg/dl (65-105)
[2025-02-11] MEDS: ACETAMINOPHEN 325 MG TABLET 650 MG PO (20:36)
[2025-02-11 21:34] LABS: Glucose Point of Care 251 mg/dl (65-105)
--- NOTE | 2025-02-11 23:40 | PC.NURSE ---
Dorothea Solis made aware that Espinoza was clogged with sediment and patient voided around it. Bladder scan post void was >532. New Espinoza placed with dark urine with sediment draining. Order received for Flomax PO.
[2025-02-12] VITALS (38 sets, daily range): BP systolic 123–172; BP diastolic 55–88; PULSE 53–72; RESP 12–21; TEMP 36.3–36.9; O2SAT 91–100; BMI 10.0
[2025-02-12] MEDS: LEVALBUTEROL NEB 1.25 MG/3 ML 0.63 MG INHALATION ×4 (01:42→20:01)
[2025-02-12] MEDS: IPRATROPIUM BR 0.02% INH SOLN 0.5 MG/2.5 ML VIAL INHALATION ×4 (01:42→20:01)
[2025-02-12 04:19] LABS: Basophils Percent Auto 0.1 % (0.2-1.2); Eosinophils Absolute Auto 0.1 K/mm3 (0-0.3); Eosinophils Percent Auto 1.3 % (0-4.4); Hematocrit 30.4 % (37.0-47.0); Hemoglobin 8.8 g/dL (12.0-15.0); Immature Granulocyte Absolute 0.04 K/mm3 (0.00-0.031); Immature Granulocyte Percent A 0.4 % (0-0.5); Lymphocytes Absolute Auto 0.62 K/mm3 (0.9-3.2); Lymphocytes Percent Auto 5.7 % (18.3-44.2); Mean Corpuscular HGB Conc 28.9 g/dl (32-36); Mean Corpuscular Hemoglobin 24.6 pg (26-34); Mean Corpuscular Volume 84.9 fl (80-100); Mean Platelet Volume 10.8 fl (7.4-10.4); Monocytes Absolute Auto 0.4 K/mm3 (0.1-0.6); Monocytes Percent Auto 4.1 % (2.6-8.5); Neutrophils Absolute Auto 9.6 K/mm3 (1.3-6.7); Neutrophils Percent Auto 88.4 % (45.5-73.1); Platelet Count Result 270 k/mm3 (150-375); Red Blood Count 3.58 M/mm3 (4.2-5.4); Red Cell Distribution Width 20.1 % (11.5-14.5); White Blood Count 10.8 K/mm3 (4.5-10.0)
[2025-02-12 04:32] LABS: Anion Gap 3 mmol/L (4-12); Blood Urea Nitrogen 45 mg/dL (7-17); Calcium 7.8 mg/dL (8.4-10.2); Carbon Dioxide 35 mmol/L (22-30); Chloride 113 mmol/L (98-107); Estimated CRCL calculation 84 ml/min; Estimated Glomerular Filt Rate > 60; Glucose 244 mg/dL (65-110); Potassium 3.1 mmol/L (3.4-5.0); Sodium 151 mmol/L (137-145)
[2025-02-12 04:41] LABS: Band Neutrophils Percent 0 % (0-6)
[2025-02-12 04:42] LABS: Anisocytosis 1+; Hypochromasia 1+; Ovalocytes 1+; Platelet Estimate Adequate (Adequate); Schistocytes None Seen
[2025-02-12] MEDS: MEROPENEM 1 GM/NS 100 ML 1 GM/100 ML BAG IVPB ×3 (06:27→21:04)
[2025-02-12] MEDS: metroNIDAZOLE 500 MG TABLET PO ×4 (06:31→23:41)
[2025-02-12 08:02] LABS: Glucose Point of Care 235 mg/dl (65-105)
[2025-02-12] MEDS: METOPROLOL TARTRATE 50 MG TAB PO ×2 (08:19→20:28)
[2025-02-12] MEDS: TAMSULOSIN HCL 0.4 MG CAPSULE PO (08:19)
[2025-02-12] MEDS: PANTOPRAZOLE SODIUM IV 40 MG VIAL IV PUSH ×2 (08:20→20:27)
[2025-02-12] MEDS: DEXTROSE 5% 1,000 ML 1,000 ML 50 ML IV CONT (09:43)
--- NOTE | 2025-02-12 10:54 | P.PNGS_ITS ---
Progress Note: A&P Assessment and Plan (1) Intra-abdominal abscess: Code(s): K65.1 - Peritoneal abscess Status: Acute Assessment and Plan: long d/w pt and agrees to proceed c perc drainage, cont abx, ok to resume diet after procedure Subjective Subjective Date/Time Seen: 02/12/25 10:54 Interval history: feels good, nervous about IR drainage Review of Systems Review of Systems: All systems reviewed & are unremarkable except as noted in HPI and below Exam Const: General: cooperative, comfortable and no acute distress Resp: Auscultation: clear to auscultation bilaterally Cardio: Rate: regular rate Rhythm: regular rhythm GI: Inspection: normal to inspection and non-distended GI Palp: No abdominal tenderness and Yes Soft to palpation Objective Data Vital Signs Vital Signs: Vital Signs - 24 hr 02/11/25 11:45 02/11/25 12:00 02/11/25 13:20 Temperature 36.5 C Pulse Rate 80 78 78 Respiratory Rate 20 18 Blood Pressure 144/69 H Pulse Oximetry 91 Oxygen Delivery Oxygen Flow Rate Fraction of Inspired Oxygen 02/11/25 14:00 02/11/25 14:21 02/11/25 15:54 Temperature 36.4 C L Pulse Rate 77 87 84 Respiratory Rate 20 Blood Pressure 151/70 H Pulse Oximetry 95 Oxygen Delivery Oxygen Flow Rate Fraction of Inspired Oxygen 02/11/25 16:00 02/11/25 18:00 02/11/25 18:11 Temperature Pulse Rate 76 72 73 Respiratory Rate Blood Pressure Pulse Oximetry Oxygen Delivery Oxygen Flow Rate Fraction of Inspired Oxygen 02/11/25 20:00 02/11/25 20:04 02/11/25 20:08 Temperature 36.4 C Pulse Rate 65 66 94 Respiratory Rate 20 20 Blood Pressure 125/68 Pulse Oximetry 92 Oxygen Delivery Oxygen Flow Rate Fraction of Inspired Oxygen 02/11/25 20:11 02/11/25 20:40 02/11/25 22:00 Temperature Pulse Rate 85 72 Respiratory Rate Blood Pressure Pulse Oximetry 94 95 Oxygen Delivery Nasal Cannula Oxygen Flow Rate 1 1 Fraction of Inspired Oxygen 24 02/11/25 23:21 02/11/25 23:50 02/12/25 00:00 Temperature 36.6 C Pulse Rate 68 65 Respiratory Rate 20 Blood Pressure 164/73 H Pulse Oximetry 98 94 Oxygen Delivery Nasal Cannula Oxygen Flow Rate 1 Fraction of Inspired Oxygen 02/12/25 01:43 02/12/25 02:00 02/12/25 03:38 Temperature 36.4 C L Pulse Rate 62 65 64 Respiratory Rate 20 20 Blood Pressure 150/78 H Pulse Oximetry 94 Oxygen Delivery Oxygen Flow Rate Fraction of Inspired Oxygen 02/12/25 04:00 02/12/25 04:00 02/12/25 06:00 Temperature Pulse Rate 67 66 Respiratory Rate Blood Pressure Pulse Oximetry 95 Oxygen Delivery Nasal Cannula Oxygen Flow Rate 1 Fraction of Inspired Oxygen 02/12/25 07:55 02/12/25 07:58 02/12/25 08:00 Temperature Pulse Rate 63 Respiratory Rate 18 Blood Pressure Pulse Oximetry 95 95 Oxygen Delivery Nasal Cannula Nasal Cannula Oxygen Flow Rate 1 1 Fraction of Inspired Oxygen 02/12/25 08:00 02/12/25 08:19 02/12/25 08:28 Temperature 36.3 C L Pulse Rate 66 72 68 Respiratory Rate 20 Blood Pressure 151/84 H Pulse Oximetry 95 Oxygen Delivery Oxygen Flow Rate Fraction of Inspired Oxygen Intake/Output Intake/Output: Intake & Output 02/09/25 02/10/25 02/11/25 02/12/25 23:59 23:59 23:59 23:59 Intake Total 270 415 2508 1100 Output Total 1170 770 550 750 Balance -370 -70 1290 350 Meds/Results Medications: Active Medications Generic Name Dose Route Start Last Admin Trade Name Freq PRN Reason Stop Dose Admin Acetaminophen 650 mg 01/25/25 20:51 02/11/25 20:36 Acetaminophen 325 Mg Tablet PO 650 mg Q4H PRN Administration Headache Dextrose 12.5 gm 01/25/25 20:46 01/26/25 11:40 Dextrose 50% 25 Gm/50 Ml Syringe IV PUSH 12.5 gm PRN PRN Administration Hypoglycemia Protocol Enoxaparin Sodium 40 mg 02/08/25 09:00 02/12/25 08:23 Enoxaparin 40 Mg/0.4 Ml Syringe SUB-Q Not Given DAILY KANDIS Fluticasone Propionate 1 spray 02/07/25 11:00 02/12/25 08:29 Fluticasone Propionate 0.05% Na Spr 16 Gm Btl (*Bkc) NASAL Not Given Q12HR KANDIS Glucagon 1 mg 01/25/25 20:46 Glucagon For Inj 1 Mg Vial IM PRN PRN Hypoglycemia Protocol Glucose 15 gm 01/25/25 20:46 Glucose Oral Gel 15 Gm Of Glucse In 37.5 Gm Tube PO PRN PRN Hypoglycemia Protocol Hydralazine HCl 10 mg 02/06/25 09:58 02/08/25 16:30 Hydralazine Hcl 20 Mg/Ml Vial IV PUSH 10 mg Q4H PRN Administration Blood Pressure - High Dextrose 1,000 mls @ 100 mls/hr 01/25/25 20:46 Dextrose 5% 1,000 Ml IVPB PRN PRN Hypoglycemia Protocol Meropenem 1 gm in 100 mls @ 200 mls/hr 01/29/25 13:00 02/12/25 06:27 IVPB 100 mls/hr Q8HR KANDIS Administration Dextrose 1,000 mls @ 75 mls/hr 02/10/25 12:15 02/12/25 09:43 Dextrose 5% 1,000 Ml IV CONT 75 mls/hr .[id number] KANDIS Infusion Insulin Aspart 4 - 8 units 02/12/25 08:00 02/12/25 08:03 Insulin Aspart (*Bkc) 100 Units/Ml SUB-Q Not Given [facility] Protocol Insulin Aspart 2 - 4 units 02/11/25 22:45 02/11/25 22:52 Insulin Aspart (*Bkc) 100 Units/Ml SUB-Q 2 units HS KANDIS Administration Protocol Insulin Glargine 10 units 01/29/25 21:00 02/01/25 21:11 Insulin Glargine (*Bkc) 100 Units/Ml SUB-Q 10 units HS KANDIS Administration Insulin Glargine 20 units 02/06/25 07:55 02/07/25 08:43 Insulin Glargine (*Bkc) 100 Units/Ml SUB-Q 20 units DAILY KANDIS Administration Ipratropium [place] 0.5 mg 02/08/25 14:00 02/12/25 07:54 Ipratropium Br 0.02% Inh Soln 0.5 Mg/2.5 Ml Vial INHALATION 0.5 mg Q6HRT KANDIS Administration Lactobacillus Acidophilus 1 pkt 02/03/25 09:00 02/07/25 12:15 Acidophilus Packet 1 Pkt Packet PO Not Given QID KANDIS Levalbuterol HCl 0.63 mg 02/08/25 14:00 02/12/25 07:55 Levalbuterol Neb 1.25 Mg/3 Ml INHALATION 0.63 mg Q6HRT KANDIS Administration Metoprolol Tartrate 5 mg 02/09/25 23:21 02/09/25 23:57 Metoprolol Tartrate Inj 5 Mg/5 Ml Vial IV PUSH 5 mg Q4H PRN Administration afib >130 Metoprolol Tartrate 50 mg 02/12/25 09:00 02/12/25 08:19 Metoprolol Tartrate 50 Mg Tab PO 50 mg Q12HR KANDIS Administration Metronidazole 500 mg 02/11/25 12:00 02/12/25 06:31 Metronidazole 500 Mg Tablet PO 500 mg Q6HR KANDIS Administration Ondansetron HCl 4 mg 01/25/25 20:51 02/06/25 22:13 Ondansetron Inj 4 Mg/2 Ml Vial IV PUSH 4 mg Q6H PRN Administration Nausea And Vomiting Pantoprazole Sodium 40 mg 02/08/25 09:00 02/12/25 08:20 Pantoprazole Sodium Iv 40 Mg Vial IV PUSH 40 mg Q12HR KANDIS Administration Sodium Chloride 10 ml 02/02/25 14:00 02/12/25 06:32 Central Line Flush IV PUSH Not Given Q8HR KANDIS Sodium Chloride 20 ml 02/02/25 13:47 02/03/25 21:40 Central Line Flush IV PUSH 20 ml PRN PRN Administration after blood draws Tamsulosin HCl 0.4 mg 02/12/25 09:00 02/12/25 08:19 Tamsulosin Hcl 0.4 Mg Capsule PO 0.4 mg QAM KANDIS Administration Radiology Results: ITS Impressions Pelvis CT 01/26/25 14:17 IMPRESSION: 1. No significant change in a bilobed gas and fluid containing abscess in the deep pelvis. Patient canceled the planned percutaneous abscess drainage catheter placement due to discomfort despite attempts at repositioning. Catheter Placement CT 02/02/25 16:48 IMPRESSION: 1. Technically successful CT-guided drainage catheter placement with likely translocation and overwhelming sepsis following initial aspiration with subsequent cardiac and respiratory arrest. 2. 12-14 mL fluid was sent for aerobic and anaerobic cultures. Please see separate CODE BLUE flow sheet for additional details of the CODE BLUE portion of the case. Abdomen X-Ray 02/07/25 08:16 IMPRESSION: NO ACUTE ABDOMINAL FINDINGS. Chest X-Ray 02/08/25 06:49 Impression: Moderate bilateral pleural effusions with bibasilar pulmonary edema/atelectasis. Abdomen/Pelvis CT 02/10/25 18:48 IMPRESSION: Interval resolution of the abscess previously detected within the vesicouterine pouch for which pigtail catheter can be removed. Residual rim-enhancing fluid collection within the rectouterine pouch measuring 6.5 cm in greatest dimension. Interval development of bilateral pleural effusions, right greater than left with right basilar consolidation. Modified Barium Swallow 02/11/25 09:37 IMPRESSION: Pharyngeal dysphagia with laryngeal penetration and aspiration with thin liquids. Please correlate with speech pathologist findings and specific feeding recommendations. Labs Labs: Laboratory Results - last 24 hr 02/11/25 02/11/25 02/11/25 11:53 17:48 21:32 WBC RBC Hgb Hct MCV MCH MCHC RDW Plt Count MPV Immature Gran % (Auto) Neut % (Auto) Lymph % (Auto) [place] % (Auto) Eos % (Auto) Baso % (Auto) Lymph # (Auto) [place] # (Auto) Eos # (Auto) Baso # (Auto) Abs Immat Gran (auto) Absolute Neuts (auto) Absolute Nucleated RBC Band Neutrophils % Nucleated RBC % Platelet Estimate Hypochromasia Anisocytosis Ovalocytes Schistocytes Sodium Potassium Chloride Carbon Dioxide Anion Gap BUN Creatinine Estim Creat Clear Calc Estimated GFR Glucose POC Capillary Glucose 211 H 279 H 251 H Calcium 02/12/25 02/12/25 04:00 07:46 WBC 10.8 H RBC 3.58 L Hgb 8.8 L Hct 30.4 L MCV 84.9 MCH 24.6 L MCHC 28.9 L RDW 20.1 H Plt Count 270 MPV 10.8 H Immature Gran % (Auto) 0.4 Neut % (Auto) 88.4 H Lymph % (Auto) 5.7 L [place] % (Auto) 4.1 Eos % (Auto) 1.3 Baso % (Auto) 0.1 L Lymph # (Auto) 0.62 L [place] # (Auto) 0.4 Eos # (Auto) 0.1 Baso # (Auto) 0.0 Abs Immat Gran (auto) 0.04 H Absolute Neuts (auto) 9.6 H Absolute Nucleated RBC 0.000 Band Neutrophils % 0 Nucleated RBC % 0.0 Platelet Estimate Adequate Hypochromasia 1+ Anisocytosis 1+ Ovalocytes 1+ Schistocytes None seen Sodium 151 H Potassium 3.1 L Chloride 113 H Carbon Dioxide 35 H Anion Gap 3 L BUN 45 H D Creatinine 0.64 L Estim Creat Clear Calc 84 Estimated GFR > 60 Glucose 244 H POC Capillary Glucose 235 H Calcium 7.8 L
--- NOTE | 2025-02-12 11:18 | PCNFU ---
Nutrition Follow-Up Complete: Inadequate energy intake related to swallowing difficulty as evidenced by NPO Diet textures appropriate for patient needs - Goal is met with current diet Goal: Pt current nutrition is NPO for procedure. Level 7 easy to chew diet with mildly thick liquids on hold for procedure Nutrition recommendation: Resume diet and supplements when procedure is over Last recorded weight is 112.9 kg. Bowel Motility: +2 Bms per FMS Labs Reviewed: Hgb 8.8, Hct 30.4, Na 151, K+ 3.1, BUN 45, Cre 0.64, Glu 244 Meds Noted: Insulin, protonix Skin: WNL Additional Notes: NPO today for possible drain placement. Passed MBS and diet was advanced yesterday, with Glucerna TID added. Continue when diet is resumed. Agree with orders. Monitor swallowing ability, intake, wt, labs. Follow up in 3 days.
[2025-02-12] MEDS: fentaNYL CITRATE INJ (*CRX) 100 MCG/2 ML VIAL 50 MCG IV PUSH (11:53)
--- NOTE | 2025-02-12 12:52 | P.SEDATION_ITS ---
Moderate Sedation Note-Pt Data Patient Data Diagnosis: pelvic abscess Present Complaint: pelvic abscess Procedure to be performed/Plan: transgluteal percutaneous abscess drain placement Allergies Allergy/AdvReac Type Severity Reaction Status Date / Time ciprofloxacin (From Cipro) Allergy Rash Verified 01/25/25 10:42 codeine Allergy Rash Verified 01/25/25 10:42 ibuprofen (From Advil) AdvReac Other Verified 01/25/25 10:42 naproxen (From Aleve) AdvReac Other Verified 01/25/25 10:42 Home Medications ?Medication ?Instructions ?Recorded ?Confirmed ?Type triamterene 37.5 1 cap PO DAILY 09/22/19 01/25/25 History mg-hydrochlorothiazide 25 mg capsule verapamil 240 mg tablet,extended 240 mg PO BID 09/22/19 01/25/25 History release lancets 30 gauge (BD Microtainer #200 ea 11/04/24 01/25/25 Rx Lancet) blood sugar diagnostic (Blood #100 ea 11/23/24 01/25/25 Rx Glucose Test strips) blood-glucose meter #1 ea 11/23/24 01/25/25 Rx pioglitazone 45 mg tablet See Rx Instructions .Route 11/24/24 01/25/25 Rx .COMPLEX #90 tabs glimepiride 4 mg tablet 4 mg PO BID #180 tabs 12/17/24 01/25/25 Rx metoprolol succinate 50 mg 50 mg PO DAILY #180 tabs 12/17/24 01/25/25 Rx tablet,extended release 24 hr Current Medications: Active Medications Acetaminophen (Acetaminophen 325 Mg Tablet) 650 mg PO Q4H PRN PRN Reason: Headache Last Admin: 02/11/25 20:36 Dose: 650 mg Dextrose (Dextrose 50% 25 Gm/50 Ml Syringe) 12.5 gm IV PUSH PRN PRN; Protocol PRN Reason: Hypoglycemia Last Admin: 01/26/25 11:40 Dose: 12.5 gm Enoxaparin Sodium (Enoxaparin 40 Mg/0.4 Ml Syringe) 40 mg SUB-Q DAILY [facility]IS Last Admin: 02/12/25 08:23 Dose: Not Given Fluticasone Propionate (Fluticasone Propionate 0.05% Na Spr 16 Gm Btl (*Bkc)) 1 spray NASAL Q12HR [facility]IS Last Admin: 02/12/25 08:29 Dose: Not Given Glucagon (Glucagon For Inj 1 Mg Vial) 1 mg IM PRN PRN; Protocol PRN Reason: Hypoglycemia Glucose (Glucose Oral Gel 15 Gm Of Glucse In 37.5 Gm Tube) 15 gm PO PRN PRN; Protocol PRN Reason: Hypoglycemia Hydralazine HCl (Hydralazine Hcl 20 Mg/Ml Vial) 10 mg IV PUSH Q4H PRN PRN Reason: Blood Pressure - High Last Admin: 02/08/25 16:30 Dose: 10 mg Dextrose (Dextrose 5% 1,000 Ml) 1,000 mls @ 100 mls/hr IVPB PRN PRN; Protocol PRN Reason: Hypoglycemia Meropenem () 1 gm in 100 mls @ 200 mls/hr IVPB Q8HR [facility]IS Last Admin: 02/12/25 06:27 Dose: 100 mls/hr Dextrose (Dextrose 5% 1,000 Ml) 1,000 mls @ 75 mls/hr IV CONT .[id number] [facility] Last Infusion: 02/12/25 09:43 Dose: 75 mls/hr Insulin Aspart (Insulin Aspart (*Bkc) 100 Units/Ml) 4 - 8 units SUB-Q TIDWM [facility]; Protocol Last Admin: 02/12/25 08:03 Dose: Not Given Insulin Aspart (Insulin Aspart (*Bkc) 100 Units/Ml) 2 - 4 units SUB-Q HS [facility]; Protocol Last Admin: 02/11/25 22:52 Dose: 2 units Insulin Glargine (Insulin Glargine (*Bkc) 100 Units/Ml) 10 units SUB-Q HS [facility] Last Admin: 02/01/25 21:11 Dose: 10 units Insulin Glargine (Insulin Glargine (*Bkc) 100 Units/Ml) 20 units SUB-Q DAILY [facility] Last Admin: 02/07/25 08:43 Dose: 20 units Ipratropium [place] (Ipratropium Br 0.02% Inh Soln 0.5 Mg/2.5 Ml Vial) 0.5 mg INHALATION Q6HRT [facility] Last Admin: 02/12/25 07:54 Dose: 0.5 mg Lactobacillus Acidophilus (Acidophilus Packet 1 Pkt Packet) 1 pkt PO QID [facility] Last Admin: 02/07/25 12:15 Dose: Not Given Levalbuterol HCl (Levalbuterol Neb 1.25 Mg/3 Ml) 0.63 mg INHALATION Q6HRT [facility] Last Admin: 02/12/25 07:55 Dose: 0.63 mg Metoprolol Tartrate (Metoprolol Tartrate Inj 5 Mg/5 Ml Vial) 5 mg IV PUSH Q4H PRN PRN Reason: afib >130 Last Admin: 02/09/25 23:57 Dose: 5 mg Metoprolol Tartrate (Metoprolol Tartrate 50 Mg Tab) 50 mg PO Q12HR [facility] Last Admin: 02/12/25 08:19 Dose: 50 mg Metronidazole (Metronidazole 500 Mg Tablet) 500 mg PO Q6HR [facility] Last Admin: 02/12/25 12:46 Dose: 500 mg Ondansetron HCl (Ondansetron Inj 4 Mg/2 Ml Vial) 4 mg IV PUSH Q6H PRN PRN Reason: Nausea And Vomiting Last Admin: 02/06/25 22:13 Dose: 4 mg Pantoprazole Sodium (Pantoprazole Sodium Iv 40 Mg Vial) 40 mg IV PUSH Q12HR [facility] Last Admin: 02/12/25 08:20 Dose: 40 mg Sodium Chloride (Central Line Flush) 10 ml IV PUSH Q8HR [facility] Last Admin: 02/12/25 06:32 Dose: Not Given Sodium Chloride (Central Line Flush) 20 ml IV PUSH PRN PRN PRN Reason: after blood draws Last Admin: 02/03/25 21:40 Dose: 20 ml Tamsulosin HCl (Tamsulosin Hcl 0.4 Mg Capsule) 0.4 mg PO QAM [facility] Last Admin: 02/12/25 08:19 Dose: 0.4 mg Sedation/Anesthesia: No previous sedation/anesthesia problems (including family history). [facility] Past Medical History Medical History Diabetes 1.5, managed as type 2 Hypertension Surgical History Surgical History No history of previous surgery Family History Family History Mother Heart attack Diabetes mellitus Type II DM Father , heart attack Heart attack Heart disease Sibling , gynecological cancer (lining of uterus per patient) No problems noted. Social History Social History Smoking status: Never smoker Second hand tobacco smoke exposure: No Alcohol intake: never Alcohol use details: occasional, [id number] Substance use: never Substance use type: does not use Do You Feel Safe in your Home?: Yes Lack of Transportation: No Lack of Food: Never True Current Housing: I Have Housing Concerned About Future Housing: No Difficulty Paying Gas/Electric Bills: No Difficulty Paying for Meds: No Currently Unemployed: No Education: Bachelor's Degree Difficulty w/ Childcare or Family Care: No Spiritual care concerns: No Mod Sed Physical Exam Physical Exam Pre Procedural Exam: Normal: Throat, Lungs, Heart Rate and Heart Rhythm and Variation: Appearance (obese) and Extremities (edematous) Hours since solid foods: 12 Hours since liquid intake: 12 Mallampati Classification: class II Internal Medicine - PN: Obj Da Vital Signs Vital Signs: Vital Signs - 24 hr 02/11/25 13:20 02/11/25 14:00 02/11/25 14:21 Temperature Pulse Rate 78 77 87 Respiratory Rate 18 Blood Pressure Pulse Oximetry Oxygen Delivery Oxygen Flow Rate Fraction of Inspired Oxygen 02/11/25 15:54 02/11/25 16:00 02/11/25 18:00 Temperature 97.5 F L Pulse Rate 84 76 72 Respiratory Rate 20 Blood Pressure 151/70 H Pulse Oximetry 95 Oxygen Delivery Oxygen Flow Rate Fraction of Inspired Oxygen 02/11/25 18:11 02/11/25 20:00 02/11/25 20:04 Temperature 97.6 F Pulse Rate 73 65 66 Respiratory Rate 20 Blood Pressure 125/68 Pulse Oximetry 92 Oxygen Delivery Oxygen Flow Rate Fraction of Inspired Oxygen 02/11/25 20:08 02/11/25 20:11 02/11/25 20:40 Temperature Pulse Rate 94 85 Respiratory Rate 20 Blood Pressure Pulse Oximetry 94 95 Oxygen Delivery Nasal Cannula Oxygen Flow Rate 1 1 Fraction of Inspired Oxygen 24 02/11/25 22:00 02/11/25 23:21 02/11/25 23:50 Temperature 97.8 F Pulse Rate 72 68 Respiratory Rate 20 Blood Pressure 164/73 H Pulse Oximetry 98 94 Oxygen Delivery Nasal Cannula Oxygen Flow Rate 1 Fraction of Inspired Oxygen 02/12/25 00:00 02/12/25 01:43 02/12/25 02:00 Temperature Pulse Rate 65 62 65 Respiratory Rate 20 Blood Pressure Pulse Oximetry Oxygen Delivery Oxygen Flow Rate Fraction of Inspired Oxygen 02/12/25 03:38 02/12/25 04:00 02/12/25 04:00 Temperature 97.5 F L Pulse Rate 64 67 Respiratory Rate 20 Blood Pressure 150/78 H Pulse Oximetry 94 95 Oxygen Delivery Nasal Cannula Oxygen Flow Rate 1 Fraction of Inspired Oxygen 02/12/25 06:00 02/12/25 07:55 02/12/25 07:58 Temperature Pulse Rate 66 63 Respiratory Rate 18 Blood Pressure Pulse Oximetry 95 Oxygen Delivery Nasal Cannula Oxygen Flow Rate 1 Fraction of Inspired Oxygen 02/12/25 08:00 02/12/25 08:00 02/12/25 08:19 Temperature Pulse Rate 66 72 Respiratory Rate Blood Pressure Pulse Oximetry 95 Oxygen Delivery Nasal Cannula Oxygen Flow Rate 1 Fraction of Inspired Oxygen 02/12/25 08:28 02/12/25 10:00 02/12/25 11:35 Temperature 97.4 F L Pulse Rate 68 61 61 Respiratory Rate 20 14 Blood Pressure 151/84 H 134/69 Pulse Oximetry 95 97 Oxygen Delivery Nasal Cannula Oxygen Flow Rate 2 Fraction of Inspired Oxygen 02/12/25 11:40 02/12/25 11:45 02/12/25 11:50 Temperature Pulse Rate 62 64 64 Respiratory Rate 14 17 16 Blood Pressure 135/57 L 149/68 H 143/77 H Pulse Oximetry 99 100 100 Oxygen Delivery Nasal Cannula Nasal Cannula Oxygen Flow Rate 2 2 2 Fraction of Inspired Oxygen 02/12/25 11:55 02/12/25 12:00 02/12/25 12:05 Temperature Pulse Rate 65 65 64 Respiratory Rate 16 12 14 Blood Pressure 152/71 H 141/74 H 149/66 H Pulse Oximetry 98 98 99 Oxygen Delivery Oxygen Flow Rate 2 2 2 Fraction of Inspired Oxygen 02/12/25 12:20 Temperature Pulse Rate 63 Respiratory Rate 16 Blood Pressure 156/79 H Pulse Oximetry 99 Oxygen Delivery Oxygen Flow Rate 2 Fraction of Inspired Oxygen Intake/Output Intake/Output: Intake & Output 02/09/25 02/10/25 02/11/25 02/12/25 23:59 23:59 23:59 23:59 Intake Total 652 485 3268 1100 Output Total 1170 770 550 750 Balance -370 -70 1290 350 Meds/Results Medications: Active Medications Generic Name Dose Route Start Last Admin Trade Name Freq PRN Reason Stop Dose Admin Acetaminophen 650 mg 01/25/25 20:51 02/11/25 20:36 Acetaminophen 325 Mg Tablet PO 650 mg Q4H PRN Administration Headache Dextrose 12.5 gm 01/25/25 20:46 01/26/25 11:40 Dextrose 50% 25 Gm/50 Ml Syringe IV PUSH 12.5 gm PRN PRN Administration Hypoglycemia Protocol Enoxaparin Sodium 40 mg 02/08/25 09:00 02/12/25 08:23 Enoxaparin 40 Mg/0.4 Ml Syringe SUB-Q Not Given DAILY [facility] Fluticasone Propionate 1 spray 02/07/25 11:00 02/12/25 08:29 Fluticasone Propionate 0.05% Na Spr 16 Gm Btl (*Bkc) NASAL Not Given Q12HR [facility] Glucagon 1 mg 01/25/25 20:46 Glucagon For Inj 1 Mg Vial IM PRN PRN Hypoglycemia Protocol Glucose 15 gm 01/25/25 20:46 Glucose Oral Gel 15 Gm Of Glucse In 37.5 Gm Tube PO PRN PRN Hypoglycemia Protocol Hydralazine HCl 10 mg 02/06/25 09:58 02/08/25 16:30 Hydralazine Hcl 20 Mg/Ml Vial IV PUSH 10 mg Q4H PRN Administration Blood Pressure - High Dextrose 1,000 mls @ 100 mls/hr 01/25/25 20:46 Dextrose 5% 1,000 Ml IVPB PRN PRN Hypoglycemia Protocol Meropenem 1 gm in 100 mls @ 200 mls/hr 01/29/25 13:00 02/12/25 06:27 IVPB 100 mls/hr Q8HR [facility]IS Administration Dextrose 1,000 mls @ 75 mls/hr 02/10/25 12:15 02/12/25 09:43 Dextrose 5% 1,000 Ml IV CONT 75 mls/hr .[id number] [facility] Infusion Insulin Aspart 4 - 8 units 02/12/25 08:00 02/12/25 08:03 Insulin Aspart (*Bkc) 100 Units/Ml SUB-Q Not Given TIDWM [facility] Protocol Insulin Aspart 2 - 4 units 02/11/25 22:45 02/11/25 22:52 Insulin Aspart (*Bkc) 100 Units/Ml SUB-Q 2 units HS [facility] Administration Protocol Insulin Glargine 10 units 01/29/25 21:00 02/01/25 21:11 Insulin Glargine (*Bkc) 100 Units/Ml SUB-Q 10 units HS [facility] Administration Insulin Glargine 20 units 02/06/25 07:55 02/07/25 08:43 Insulin Glargine (*Bkc) 100 Units/Ml SUB-Q 20 units DAILY [facility] Administration Ipratropium [place] 0.5 mg 02/08/25 14:00 02/12/25 07:54 Ipratropium Br 0.02% Inh Soln 0.5 Mg/2.5 Ml Vial INHALATION 0.5 mg Q6HRT [facility] Administration Lactobacillus Acidophilus 1 pkt 02/03/25 09:00 02/07/25 12:15 Acidophilus Packet 1 Pkt Packet PO Not Given QID [facility]IS Levalbuterol HCl 0.63 mg 02/08/25 14:00 02/12/25 07:55 Levalbuterol Neb 1.25 Mg/3 Ml INHALATION 0.63 mg Q6HRT [facility] Administration Metoprolol Tartrate 5 mg 02/09/25 23:21 02/09/25 23:57 Metoprolol Tartrate Inj 5 Mg/5 Ml Vial IV PUSH 5 mg Q4H PRN Administration afib >130 Metoprolol Tartrate 50 mg 02/12/25 09:00 02/12/25 08:19 Metoprolol Tartrate 50 Mg Tab PO 50 mg Q12HR [facility] Administration Metronidazole 500 mg 02/11/25 12:00 02/12/25 12:46 Metronidazole 500 Mg Tablet PO 500 mg Q6HR [facility] Administration Ondansetron HCl 4 mg 01/25/25 20:51 02/06/25 22:13 Ondansetron Inj 4 Mg/2 Ml Vial IV PUSH 4 mg Q6H PRN Administration Nausea And Vomiting Pantoprazole Sodium 40 mg 02/08/25 09:00 02/12/25 08:20 Pantoprazole Sodium Iv 40 Mg Vial IV PUSH 40 mg Q12HR [facility] Administration Sodium Chloride 10 ml 02/02/25 14:00 02/12/25 06:32 Central Line Flush IV PUSH Not Given Q8HR [facility]IS Sodium Chloride 20 ml 02/02/25 13:47 02/03/25 21:40 Central Line Flush IV PUSH 20 ml PRN PRN Administration after blood draws Tamsulosin HCl 0.4 mg 02/12/25 09:00 02/12/25 08:19 Tamsulosin Hcl 0.4 Mg Capsule PO 0.4 mg QAM [facility]IS Administration Radiology Results: ITS Impressions Pelvis CT 01/26/25 14:17 IMPRESSION: 1. No significant change in a bilobed gas and fluid containing abscess in the deep pelvis. Patient canceled the planned percutaneous abscess drainage catheter placement due to discomfort despite attempts at repositioning. Abdomen X-Ray 02/07/25 08:16 IMPRESSION: NO ACUTE ABDOMINAL FINDINGS. Chest X-Ray 02/08/25 06:49 Impression: Moderate bilateral pleural effusions with bibasilar pulmonary edema/atelectasis. Abdomen/Pelvis CT 02/10/25 18:48 IMPRESSION: Interval resolution of the abscess previously detected within the vesicouterine pouch for which pigtail catheter can be removed. Residual rim-enhancing fluid collection within the rectouterine pouch measuring 6.5 cm in greatest dimension. Interval development of bilateral pleural effusions, right greater than left with right basilar consolidation. Modified Barium Swallow 02/11/25 09:37 IMPRESSION: Pharyngeal dysphagia with laryngeal penetration and aspiration with thin liquids. Please correlate with speech pathologist findings and specific feeding recommendations. Labs 02/12/25 04:00 02/12/25 04:00 Labs: Laboratory Results - last 24 hr 02/11/25 02/11/25 02/12/25 17:48 21:32 04:00 WBC 10.8 H RBC 3.58 L Hgb 8.8 L Hct 30.4 L MCV 84.9 MCH 24.6 L MCHC 28.9 L RDW 20.1 H Plt Count 270 MPV 10.8 H Immature Gran % (Auto) 0.4 Neut % (Auto) 88.4 H Lymph % (Auto) 5.7 L [place] % (Auto) 4.1 Eos % (Auto) 1.3 Baso % (Auto) 0.1 L Lymph # (Auto) 0.62 L [place] # (Auto) 0.4 Eos # (Auto) 0.1 Baso # (Auto) 0.0 Abs Immat Gran (auto) 0.04 H Absolute Neuts (auto) 9.6 H Absolute Nucleated RBC 0.000 Band Neutrophils % 0 Nucleated RBC % 0.0 Platelet Estimate Adequate Hypochromasia 1+ Anisocytosis 1+ Ovalocytes 1+ Schistocytes None seen Sodium 151 H Potassium 3.1 L Chloride 113 H Carbon Dioxide 35 H Anion Gap 3 L BUN 45 H D Creatinine 0.64 L Estim Creat Clear Calc 84 Estimated GFR > 60 Glucose 244 H POC Capillary Glucose 279 H 251 H Calcium 7.8 L 02/12/25 07:46 WBC RBC Hgb Hct MCV MCH MCHC RDW Plt Count MPV Immature Gran % (Auto) Neut % (Auto) Lymph % (Auto) [place] % (Auto) Eos % (Auto) Baso % (Auto) Lymph # (Auto) [place] # (Auto) Eos # (Auto) Baso # (Auto) Abs Immat Gran (auto) Absolute Neuts (auto) Absolute Nucleated RBC Band Neutrophils % Nucleated RBC % Platelet Estimate Hypochromasia Anisocytosis Ovalocytes Schistocytes Sodium Potassium Chloride Carbon Dioxide Anion Gap BUN Creatinine Estim Creat Clear Calc Estimated GFR Glucose POC Capillary Glucose 235 H Calcium ASA Classification/Sedation ASA Classification/Sedation ASA Class: III Emergent: No Risks: Risks, benefits and alternatives explained and patient/family accepted plan for sedation. Patient re-evaluated immediately prior to sedation.
[2025-02-12 12:59] LABS: Glucose Point of Care 197 mg/dl (65-105)
--- NOTE | 2025-02-12 13:47 | PM.IMPN ---
Progress Note: A&P Assessment and Plan (1) Cardiac arrest: Code(s): I46.9 - Cardiac arrest, cause unspecified Status: Acute Assessment and Plan: Resolved Patient had a cardiac arrest after placement of a percutaneous drain in the pelvic abscess. Could be related to vasovagal, translocation of bacteria, hypoxia as patient was laying flat, hypovolemia, acidosis -successful ROSC x2, intubated in the CT scan suite by ER physician -patient did follow commands post code a continue, so not a candidate for targeted temperature management -will continue to treat underlying cause (2) Septic shock: Code(s): A41.9 - Sepsis, unspecified organism; R65.21 - Severe sepsis with septic shock Status: Acute Assessment and Plan: 02/01:In the ICU patient dropped her blood pressures -patient has been adequately fluid-resuscitated with IV fluids and albumin -01/25: Blood cultures negative x2 -02/02: repeat blood cultures -growing E coli (pansensitive) and Clostridium ramosum -02/02: Abscess fluid culture growing E coli and Bacteroides fragilis 02/03: WBC count up to 64, could be related to septic shock, infection, leukomoid reaction, steroids. Will continue to monitor -WBC count is trending down, patient is afebrile, continue to monitor --continue meropenem, Flagyl 02/04: Discontinue vancomycin -continue doxycycline for 5 days - weaning stress dose steroid -off all pressors (patient was on Levophed, Bobo-Synephrine and vasopressin) -WBC count trending down 02/04: Repeat blood cultures growing Clostridium ramosum, bacteroids fragilis 02/09: Repeat blood culture shows no growth 02/11:Removal of pelvic abscess drain by surgery 02/12: Patient successfully underwent transgluteal percutaneous abscess drain placement with IR. (3) Acute respiratory failure: Qualifiers: Respiratory failure complication: hypoxia Qualified Code(s): J96.01 - Acute respiratory failure with hypoxia Code(s): J96.00 - Acute respiratory failure, unspecified whether with hypoxia or hypercapnia Status: Acute Assessment and Plan: Acute respiratory failure likely related to cardiac arrest possible from septic shock, infection, hypovolemia, translocation of bacteria, acidosis, hypoxia -patient intubated in the CT scan suite by ER physician -02/06: Extubated Accidentally coughed upper ETT was on pressure support ventilation 10/5 for approximately 3 hours and 40 minutes -chest x-ray and ABGs reviewed -Moderate bilateral pleural effusions with bibasilar pulmonary edema/atelectasis. -continue Xopenex and Atrovent nebulizer -OFF Precedex infusion, -diuresed well with Lasix on 02/06, 02/07 -02/08: will diurese again today after placing potassium -s/p on Airvo 45% FiO2 and 45 L flow rate -patient is currently on 2 L -Continue Meropenem and Metronidazole (4) Intra-abdominal abscess: Code(s): K65.1 - Peritoneal abscess Status: Acute Assessment and Plan: Intra-abdominal abscess, status post percutaneous IR drain placement on 02/01/2025 and removal on 02/10/2025.Underwent 02/12 transgluteal percutaneous abscess drain placement by IR -draining purulent material, cultures as above -surgery is following the patient -Continue Meropenem and Metronidazole (5) Diabetes 1.5, managed as type 2: Code(s): E13.9 - Other specified diabetes mellitus without complications Status: Acute Assessment and Plan: Continue Accu-Cheks and sliding scale insulin -will discontinue Lantus for now as patient is NPO, off a stress dose steroid -Tolerating nutrition through NG (6) Hypertension: Qualifiers: Hypertension type: unspecified Qualified Code(s): I10 - Essential (primary) hypertension Code(s): I10 - Essential (primary) hypertension Status: Acute Assessment and Plan: Patient just came off pressors, continue to hold antihypertensives for now -continue p.r.n. hydralazine IV -once patient starts taking p.o. with will add her home antihypertensive (7) Anemia: Qualifiers: Anemia type: other cause Other causes of anemia: chronic disease, other Qualified Code(s): D63.8 - Anemia in other chronic diseases classified elsewhere Code(s): D64.9 - Anemia, unspecified Status: Acute Assessment and Plan: 02/03: Hemoglobin dropped to 6.3. -will transfuse 1 unit of packed RBC -hemoglobin stable -02/05: hemoglobin dropped to 7.0 -status post 1 unit of packed RBC -iron panel reflective of iron deficiency anemia and/or anemia of chronic disease -folic acid and vitamin B12 levels within normal limits -stool occult was positive -appreciate GI evaluation and recommendations -hemoglobin is stable, continue to monitor (8) Hypernatremia: Code(s): E87.0 - Hyperosmolality and hypernatremia Status: Acute Assessment and Plan: Possibly due to dehydration Increased flushing 150 mL free water q.4 hours via NG (9) Atrial fibrillation: Code(s): I48.91 - Unspecified atrial fibrillation Status: Acute Assessment and Plan: Started Metoprolol PO q 6 hrs [id number] score 3(Age,sex,DM) New onset. Order TSH ECHO:Left ventricular systolic function is normal, estimated at 55-60% Will defer anticoagulation until discussion with Surgery and Cardiology Cardiology do not want to start anticoagulation due to anemia Subjective Date/time seen: 02/12/25 13:47 Interval history: Patient successfully underwent transgluteal percutaneous abscess drain placement with IR. Initially patient wanted to perform the surgery after discussing with the daughter tomorrow but later accepted the surgery. I called her daughter but unfortunately unable to reach. Review of Systems Review of Systems: All systems reviewed & are unremarkable except as noted in HPI and below ROS unobtainable: Yes unobtainable due to endotracheal tube, unobtainable due to medical condition and unobtainable due to mental status Exam Narrative: General: Obese female, currently in no acute distress HEENT:? Pupils equal and reactive, sclera is clear, Airvo in place Neck:? Supple Respiratory:? Coarse breath sounds bilaterally, decreased at bases, no wheezing, adequate air entry Cardiac:? S1-S2 normal, regular rate and rhythm Abdomen:? Soft, nontender, obese, hypoactive bowel sounds, left lower quadrant drain in place with purulent drainage Extremities:? Bilateral upper and lower extremity pitting edema Neuro:? Of Precedex. More awake, alert, able to answer questions, follows simple commands, Skin:? No skin lesions noted Psych:? Depressed affect Const: General: comfortable and no acute distress Other: , female, elderly, disheveled. Nontoxic appearance. HENMT: Face/Nose/Sinus: Normal nares present Mouth: Yes moist mucous membranes Eyes: General: appearance normal, both eyes and all related structures Sclera: sclerae normal Pupils: Equal, round and reactive pupils present EOM: EOMs intact bilaterally Resp: Effort & Inspection: normal respiratory effort Auscultation: clear to auscultation bilaterally Cardio: Rate: regular rate Rhythm: regular rhythm Other: S1-S2 present without murmur, rub, ectopy GI: Other: tender in the lower quadrants. hyperactive bowel sounds in the upper quadrants, normoactive in the lower. Nondistended, soft. Skin: General skin exam: normal color and no rashes or lesions noted Wounds: no wounds Neuro: Cranial nerves: Yes Equal, round and reactive pupils present Speech: normal speech Motor exam (neuro): 5/5 motor strength present throughout Sensory Exam: normal sensation Other: A&O x4 Extrem: General: normal to inspection Psych: Mental Status: mental status grossly normal Affect: normal affect Other: Malodorous, disheveled. Fair insight and judgment, pleasant. Objective Data Vital Signs Vital Signs: Vital Signs - 24 hr 02/11/25 14:00 02/11/25 14:21 02/11/25 15:54 Temperature 97.5 F L Pulse Rate 77 87 84 Respiratory Rate 20 Blood Pressure 151/70 H Pulse Oximetry 95 Oxygen Delivery Oxygen Flow Rate Fraction of Inspired Oxygen 02/11/25 16:00 02/11/25 18:00 02/11/25 18:11 Temperature Pulse Rate 76 72 73 Respiratory Rate Blood Pressure Pulse Oximetry Oxygen Delivery Oxygen Flow Rate Fraction of Inspired Oxygen 02/11/25 20:00 02/11/25 20:04 02/11/25 20:08 Temperature 97.6 F Pulse Rate 65 66 94 Respiratory Rate 20 20 Blood Pressure 125/68 Pulse Oximetry 92 Oxygen Delivery Oxygen Flow Rate Fraction of Inspired Oxygen 02/11/25 20:11 02/11/25 20:40 02/11/25 22:00 Temperature Pulse Rate 85 72 Respiratory Rate Blood Pressure Pulse Oximetry 94 95 Oxygen Delivery Nasal Cannula Oxygen Flow Rate 1 1 Fraction of Inspired Oxygen 24 02/11/25 23:21 02/11/25 23:50 02/12/25 00:00 Temperature 97.8 F Pulse Rate 68 65 Respiratory Rate 20 Blood Pressure 164/73 H Pulse Oximetry 98 94 Oxygen Delivery Nasal Cannula Oxygen Flow Rate 1 Fraction of Inspired Oxygen 02/12/25 01:43 02/12/25 02:00 02/12/25 03:38 Temperature 97.5 F L Pulse Rate 62 65 64 Respiratory Rate 20 20 Blood Pressure 150/78 H Pulse Oximetry 94 Oxygen Delivery Oxygen Flow Rate Fraction of Inspired Oxygen 02/12/25 04:00 02/12/25 04:00 02/12/25 06:00 Temperature Pulse Rate 67 66 Respiratory Rate Blood Pressure Pulse Oximetry 95 Oxygen Delivery Nasal Cannula Oxygen Flow Rate 1 Fraction of Inspired Oxygen 02/12/25 07:55 02/12/25 07:58 02/12/25 08:00 Temperature Pulse Rate 63 Respiratory Rate 18 Blood Pressure Pulse Oximetry 95 95 Oxygen Delivery Nasal Cannula Nasal Cannula Oxygen Flow Rate 1 1 Fraction of Inspired Oxygen 02/12/25 08:00 02/12/25 08:02 02/12/25 08:19 Temperature Pulse Rate 66 60 72 Respiratory Rate 18 Blood Pressure Pulse Oximetry Oxygen Delivery Oxygen Flow Rate Fraction of Inspired Oxygen 02/12/25 08:28 02/12/25 10:00 02/12/25 11:35 Temperature 97.4 F L Pulse Rate 68 61 61 Respiratory Rate 20 14 Blood Pressure 151/84 H 134/69 Pulse Oximetry 95 97 Oxygen Delivery Nasal Cannula Oxygen Flow Rate 2 Fraction of Inspired Oxygen 02/12/25 11:40 02/12/25 11:45 02/12/25 11:50 Temperature Pulse Rate 62 64 64 Respiratory Rate 14 17 16 Blood Pressure 135/57 L 149/68 H 143/77 H Pulse Oximetry 99 100 100 Oxygen Delivery Nasal Cannula Nasal Cannula Oxygen Flow Rate 2 2 2 Fraction of Inspired Oxygen 02/12/25 11:55 02/12/25 12:00 02/12/25 12:00 Temperature Pulse Rate 65 65 64 Respiratory Rate 16 12 Blood Pressure 152/71 H 141/74 H Pulse Oximetry 98 98 Oxygen Delivery Oxygen Flow Rate 2 2 Fraction of Inspired Oxygen 02/12/25 12:05 02/12/25 12:20 02/12/25 12:59 Temperature 97.4 F L Pulse Rate 64 63 62 Respiratory Rate 14 16 18 Blood Pressure 149/66 H 156/79 H 131/67 Pulse Oximetry 99 99 95 Oxygen Delivery Oxygen Flow Rate 2 2 Fraction of Inspired Oxygen 02/12/25 13:00 02/12/25 13:13 02/12/25 13:19 Temperature Pulse Rate 60 62 Respiratory Rate 18 18 Blood Pressure Pulse Oximetry 93 Oxygen Delivery Nasal Cannula Oxygen Flow Rate 1 Fraction of Inspired Oxygen Intake/Output Intake/Output: Intake & Output 02/09/25 02/10/25 02/11/25 02/12/25 23:59 23:59 23:59 23:59 Intake Total 924 467 6665 1200 Output Total 1170 770 550 750 Balance -370 -70 1290 450 Meds/Results Medications: Active Medications Generic Name Dose Route Start Last Admin Trade Name Freq PRN Reason Stop Dose Admin Acetaminophen 650 mg 01/25/25 20:51 02/11/25 20:36 Acetaminophen 325 Mg Tablet PO 650 mg Q4H PRN Administration Headache Dextrose 12.5 gm 01/25/25 20:46 01/26/25 11:40 Dextrose 50% 25 Gm/50 Ml Syringe IV PUSH 12.5 gm PRN PRN Administration Hypoglycemia Protocol Enoxaparin Sodium 40 mg 02/08/25 09:00 02/12/25 08:23 Enoxaparin 40 Mg/0.4 Ml Syringe SUB-Q Not Given DAILY [facility] Fluticasone Propionate 1 spray 02/07/25 11:00 02/12/25 08:29 Fluticasone Propionate 0.05% Na Spr 16 Gm Btl (*Bkc) NASAL Not Given Q12HR [facility] Glucagon 1 mg 01/25/25 20:46 Glucagon For Inj 1 Mg Vial IM PRN PRN Hypoglycemia Protocol Glucose 15 gm 01/25/25 20:46 Glucose Oral Gel 15 Gm Of Glucse In 37.5 Gm Tube PO PRN PRN Hypoglycemia Protocol Hydralazine HCl 10 mg 02/06/25 09:58 02/08/25 16:30 Hydralazine Hcl 20 Mg/Ml Vial IV PUSH 10 mg Q4H PRN Administration Blood Pressure - High Dextrose 1,000 mls @ 100 mls/hr 01/25/25 20:46 Dextrose 5% 1,000 Ml IVPB PRN PRN Hypoglycemia Protocol Meropenem 1 gm in 100 mls @ 200 mls/hr 01/29/25 13:00 02/12/25 13:31 IVPB 100 mls/hr Q8HR KANDIS Administration Dextrose 1,000 mls @ 75 mls/hr 02/10/25 12:15 02/12/25 09:43 Dextrose 5% 1,000 Ml IV CONT 75 mls/hr .[id number] KANDIS Infusion Insulin Aspart 4 - 8 units 02/12/25 08:00 02/12/25 13:04 Insulin Aspart (*Bkc) 100 Units/Ml SUB-Q Not Given TIDWM [facility] Protocol Insulin Aspart 2 - 4 units 02/11/25 22:45 02/11/25 22:52 Insulin Aspart (*Bkc) 100 Units/Ml SUB-Q 2 units HS KANDIS Administration Protocol Insulin Glargine 10 units 01/29/25 21:00 02/01/25 21:11 Insulin Glargine (*Bkc) 100 Units/Ml SUB-Q 10 units HS KANDIS Administration Insulin Glargine 20 units 02/06/25 07:55 02/07/25 08:43 Insulin Glargine (*Bkc) 100 Units/Ml SUB-Q 20 units DAILY K[facility]IS Administration Ipratropium Melrose 0.5 mg 02/08/25 14:00 02/12/25 13:10 Ipratropium Br 0.02% Inh Soln 0.5 Mg/2.5 Ml Vial INHALATION 0.5 mg Q6HRT KANDIS Administration Lactobacillus Acidophilus 1 pkt 02/03/25 09:00 02/07/25 12:15 Acidophilus Packet 1 Pkt Packet PO Not Given QID KANDIS Levalbuterol HCl 0.63 mg 02/08/25 14:00 02/12/25 13:10 Levalbuterol Neb 1.25 Mg/3 Ml INHALATION 0.63 mg Q6HRT KANDIS Administration Metoprolol Tartrate 5 mg 02/09/25 23:21 02/09/25 23:57 Metoprolol Tartrate Inj 5 Mg/5 Ml Vial IV PUSH 5 mg Q4H PRN Administration afib >130 Metoprolol Tartrate 50 mg 02/12/25 09:00 02/12/25 08:19 Metoprolol Tartrate 50 Mg Tab PO 50 mg Q12HR KANDIS Administration Metronidazole 500 mg 02/11/25 12:00 02/12/25 12:46 Metronidazole 500 Mg Tablet PO 500 mg Q6HR KANDIS Administration Ondansetron HCl 4 mg 01/25/25 20:51 02/06/25 22:13 Ondansetron Inj 4 Mg/2 Ml Vial IV PUSH 4 mg Q6H PRN Administration Nausea And Vomiting Pantoprazole Sodium 40 mg 02/08/25 09:00 02/12/25 08:20 Pantoprazole Sodium Iv 40 Mg Vial IV PUSH 40 mg Q12HR KANDIS Administration Sodium Chloride 10 ml 02/02/25 14:00 02/12/25 06:32 Central Line Flush IV PUSH Not Given Q8HR KANDIS Sodium Chloride 20 ml 02/02/25 13:47 02/03/25 21:40 Central Line Flush IV PUSH 20 ml PRN PRN Administration after blood draws Tamsulosin HCl 0.4 mg 02/12/25 09:00 02/12/25 08:19 Tamsulosin Hcl 0.4 Mg Capsule PO 0.4 mg QAM KANDIS Administration Radiology Results: ITS Impressions Pelvis CT 01/26/25 14:17 IMPRESSION: 1. No significant change in a bilobed gas and fluid containing abscess in the deep pelvis. Patient canceled the planned percutaneous abscess drainage catheter placement due to discomfort despite attempts at repositioning. Abdomen X-Ray 02/07/25 08:16 IMPRESSION: NO ACUTE ABDOMINAL FINDINGS. Chest X-Ray 02/08/25 06:49 Impression: Moderate bilateral pleural effusions with bibasilar pulmonary edema/atelectasis. Abdomen/Pelvis CT 02/10/25 18:48 IMPRESSION: Interval resolution of the abscess previously detected within the vesicouterine pouch for which pigtail catheter can be removed. Residual rim-enhancing fluid collection within the rectouterine pouch measuring 6.5 cm in greatest dimension. Interval development of bilateral pleural effusions, right greater than left with right basilar consolidation. Modified Barium Swallow 02/11/25 09:37 IMPRESSION: Pharyngeal dysphagia with laryngeal penetration and aspiration with thin liquids. Please correlate with speech pathologist findings and specific feeding recommendations. Labs Labs: Laboratory Results - last 24 hr 02/11/25 02/11/25 02/12/25 17:48 21:32 04:00 WBC 10.8 H RBC 3.58 L Hgb 8.8 L Hct 30.4 L MCV 84.9 MCH 24.6 L MCHC 28.9 L RDW 20.1 H Plt Count 270 MPV 10.8 H Immature Gran % (Auto) 0.4 Neut % (Auto) 88.4 H Lymph % (Auto) 5.7 L Dickson % (Auto) 4.1 Eos % (Auto) 1.3 Baso % (Auto) 0.1 L Lymph # (Auto) 0.62 L Dickson # (Auto) 0.4 Eos # (Auto) 0.1 Baso # (Auto) 0.0 Abs Immat Gran (auto) 0.04 H Absolute Neuts (auto) 9.6 H Absolute Nucleated RBC 0.000 Band Neutrophils % 0 Nucleated RBC % 0.0 Platelet Estimate Adequate Hypochromasia 1+ Anisocytosis 1+ Ovalocytes 1+ Schistocytes None seen Sodium 151 H Potassium 3.1 L Chloride 113 H Carbon Dioxide 35 H Anion Gap 3 L BUN 45 H D Creatinine 0.64 L Estim Creat Clear Calc 84 Estimated GFR > 60 Glucose 244 H POC Capillary Glucose 279 H 251 H Calcium 7.8 L 02/12/25 02/12/25 07:46 12:54 WBC RBC Hgb Hct MCV MCH MCHC RDW Plt Count MPV Immature Gran % (Auto) Neut % (Auto) Lymph % (Auto) Dickson % (Auto) Eos % (Auto) Baso % (Auto) Lymph # (Auto) Dickson # (Auto) Eos # (Auto) Baso # (Auto) Abs Immat Gran (auto) Absolute Neuts (auto) Absolute Nucleated RBC Band Neutrophils % Nucleated RBC % Platelet Estimate Hypochromasia Anisocytosis Ovalocytes Schistocytes Sodium Potassium Chloride Carbon Dioxide Anion Gap BUN Creatinine Estim Creat Clear Calc Estimated GFR Glucose POC Capillary Glucose 235 H 197 H Calcium Quality VTE Prophylaxis VTE prophylaxis: pharmacologic ordered Hospitalist [facility] Advance Care Plan I have confirmed that the patient's Advanced Care Plan is present, code status is documented, or surrogate decision maker is listed in patient medical record.: Yes Medication Reconciliation I have utilized all available resources to obtain, update and review the patients current medications (includes all prescriptions, OTC, herbals, cannabis, and nutritional supplements).: Yes
[2025-02-12 16:27] LABS: Glucose Point of Care 218 mg/dl (65-105)
[2025-02-12] MEDS: INSULIN ASPART (*BKC) 100 UNITS/ML SUB-Q ×2 (17:03→21:05)
[2025-02-12 21:08] LABS: Glucose Point of Care 222 mg/dl (65-105)
[2025-02-12] MEDS: DEXTROSE 5% 1,000 ML 1,000 ML 75 ML IV CONT (23:42)
[2025-02-13] VITALS (24 sets, daily range): BP systolic 104–135; BP diastolic 59–82; PULSE 73–108; RESP 18–21; TEMP 36.2–37; O2SAT 92–100
[2025-02-13] MEDS: LEVALBUTEROL NEB 1.25 MG/3 ML 0.63 MG INHALATION ×3 (01:58→14:08)
[2025-02-13] MEDS: IPRATROPIUM BR 0.02% INH SOLN 0.5 MG/2.5 ML VIAL INHALATION ×3 (01:58→14:08)
[2025-02-13] MEDS: metroNIDAZOLE 500 MG TABLET PO ×4 (06:00→23:46)
[2025-02-13] MEDS: MEROPENEM 1 GM/NS 100 ML 1 GM/100 ML BAG IVPB ×3 (06:00→22:58)
--- NOTE | 2025-02-13 06:29 | ECG_ITS ---
Test Date: 2025-02-13 09:41:07 Measurements Intervals [place] Rate: 93 P: 0 CT: 0 QRS: -22 QRSD: 100 T: -42 QT: 388 QTc: 485 Interpretive Statements ATRIAL FIBRILLATION BORDERLINE LEFT AXIS DEVIATION [QRS AXIS < -20] NONSPECIFIC ST & T-WAVE ABNORMALITY ABNORMAL RHYTHM ECG WARNING: DATA QUALITY MAY AFFECT INTERPRETATION Compared to ECG 02/10/2025 09:59:51 Possible ischemia no longer present T-wave abnormality still present Electronically Signed On 02-13-2025 15:36:26 CDT by Brittni Ortiz M.D.
[2025-02-13 08:12] LABS: Glucose Point of Care 220 mg/dl (65-105)
[2025-02-13] MEDS: METOPROLOL TARTRATE 50 MG TAB PO ×2 (08:46→20:20)
[2025-02-13] MEDS: TAMSULOSIN HCL 0.4 MG CAPSULE PO (08:46)
[2025-02-13] MEDS: PANTOPRAZOLE SODIUM IV 40 MG VIAL IV PUSH ×2 (08:46→20:20)
[2025-02-13] MEDS: ENOXAPARIN 40 MG/0.4 ML SYRINGE SUB-Q (08:46)
[2025-02-13] MEDS: INSULIN ASPART (*BKC) 100 UNITS/ML SUB-Q ×3 (08:52→20:23)
[2025-02-13 08:58] LABS: Alanine Aminotransferase 12 U/L (6-35); Albumin Level 2.1 g/dL (3.5-5.1); Alkaline Phosphatase 91 U/L (38-126); Anion Gap 3 mmol/L (4-12); Aspartate Amino Transferase 21 U/L (14-36); Bilirubin,Total 1.4 mg/dL (0.2-1.3); Blood Urea Nitrogen 37 mg/dL (7-17); Calcium 7.8 mg/dL (8.4-10.2); Carbon Dioxide 32 mmol/L (22-30); Chloride 112 mmol/L (98-107); Estimated CRCL calculation 101 ml/min; Estimated Glomerular Filt Rate > 60; Glucose 216 mg/dL (65-110); Potassium 3.2 mmol/L (3.4-5.0); Sodium 147 mmol/L (137-145)
[2025-02-13 10:17] LABS: Hematocrit 32.6 % (37.0-47.0); Hemoglobin 9.3 g/dL (12.0-15.0); Mean Corpuscular HGB Conc 28.5 g/dl (32-36); Mean Corpuscular Hemoglobin 24.8 pg (26-34); Mean Corpuscular Volume 86.9 fl (80-100); Mean Platelet Volume 10.6 fl (7.4-10.4); Platelet Count Result 293 k/mm3 (150-375); Red Blood Count 3.75 M/mm3 (4.2-5.4); Red Cell Distribution Width 20.3 % (11.5-14.5); White Blood Count 14.2 K/mm3 (4.5-10.0)
[2025-02-13 11:15] LABS: Glucose Point of Care 212 mg/dl (65-105)
[2025-02-13] MEDS: ALPRAZolam (*CRX) 0.25 MG TABLET PO (11:20)
[2025-02-13] MEDS: POTASSIUM CHLORIDE 20 MEQ ER TABLET 40 MEQ PO (12:30)
--- NOTE | 2025-02-13 12:46 | P.PNGS_ITS ---
Progress Note: A&P Assessment and Plan (1) Intra-abdominal abscess: Code(s): K65.1 - Peritoneal abscess Status: Acute Assessment and Plan: perc drain placed yesterday successfully without issue, continue drain and antibiotics, continue diet, and encourage out of bed Subjective Subjective Date/Time Seen: 02/13/25 12:46 Interval history: feels weak and tired, no abdominal pain Review of Systems Review of Systems: All systems reviewed & are unremarkable except as noted in HPI and below Exam Const: General: cooperative, comfortable and no acute distress Resp: Auscultation: clear to auscultation bilaterally Cardio: Rate: regular rate Rhythm: regular rhythm GI: Inspection: normal to inspection and non-distended GI Palp: No abdominal tenderness and Yes Soft to palpation Other: drain with minimal purulent fluid Objective Data Vital Signs Vital Signs: Vital Signs - 24 hr 02/12/25 12:59 02/12/25 13:00 02/12/25 13:13 Temperature 36.3 C L Pulse Rate 62 60 Respiratory Rate 18 18 Blood Pressure 131/67 Pulse Oximetry 95 93 Oxygen Delivery Nasal Cannula Oxygen Flow Rate 1 02/12/25 13:19 02/12/25 14:00 02/12/25 15:59 Temperature Pulse Rate 62 62 Respiratory Rate 18 Blood Pressure Pulse Oximetry 93 Oxygen Delivery Nasal Cannula Oxygen Flow Rate 1 02/12/25 16:00 02/12/25 16:31 02/12/25 18:00 Temperature 36.4 C Pulse Rate 68 70 72 Respiratory Rate 21 H Blood Pressure 172/88 H Pulse Oximetry 93 Oxygen Delivery Oxygen Flow Rate 02/12/25 20:00 02/12/25 20:00 02/12/25 20:02 Temperature Pulse Rate 68 71 Respiratory Rate 18 Blood Pressure Pulse Oximetry 100 Oxygen Delivery Nasal Cannula Oxygen Flow Rate 2 02/12/25 20:03 02/12/25 20:05 02/12/25 20:10 Temperature 36.6 C Pulse Rate 68 67 Respiratory Rate 20 18 Blood Pressure 130/55 L Pulse Oximetry 91 100 Oxygen Delivery Nasal Cannula Oxygen Flow Rate 1 02/12/25 20:28 02/12/25 22:00 02/12/25 23:28 Temperature 36.9 C Pulse Rate 71 55 L 53 L Respiratory Rate 20 Blood Pressure 123/57 L Pulse Oximetry 93 Oxygen Delivery Oxygen Flow Rate 02/13/25 00:00 02/13/25 00:00 02/13/25 01:59 Temperature Pulse Rate 86 91 Respiratory Rate 18 Blood Pressure Pulse Oximetry 93 Oxygen Delivery Nasal Cannula Oxygen Flow Rate 2 02/13/25 02:00 02/13/25 02:05 02/13/25 04:00 Temperature Pulse Rate 93 96 Respiratory Rate 18 Blood Pressure Pulse Oximetry 93 Oxygen Delivery Nasal Cannula Oxygen Flow Rate 2 02/13/25 04:00 02/13/25 05:50 02/13/25 06:00 Temperature 36.4 C Pulse Rate 93 99 93 Respiratory Rate 20 Blood Pressure 130/63 Pulse Oximetry 95 Oxygen Delivery Oxygen Flow Rate 02/13/25 07:51 02/13/25 07:56 02/13/25 07:56 Temperature 36.5 C Pulse Rate 95 100 Respiratory Rate 20 20 Blood Pressure 127/66 Pulse Oximetry 96 92 Oxygen Delivery Nasal Cannula Oxygen Flow Rate 0.5 02/13/25 08:08 02/13/25 08:46 02/13/25 11:48 Temperature 36.6 C Pulse Rate 104 H 103 H 81 Respiratory Rate 18 20 Blood Pressure 135/82 Pulse Oximetry 97 Oxygen Delivery Oxygen Flow Rate Intake/Output Intake/Output: Intake & Output 02/10/25 02/11/25 02/12/25 02/13/25 23:59 23:59 23:59 23:59 Intake Total 700 1840 2520 120 Output Total 476 677 5001 600 Balance -70 1290 1405 -480 Meds/Results Medications: Active Medications Generic Name Dose Route Start Last Admin Trade Name Freq PRN Reason Stop Dose Admin Acetaminophen 650 mg 01/25/25 20:51 02/11/25 20:36 Acetaminophen 325 Mg Tablet PO 650 mg Q4H PRN Administration Headache Dextrose 12.5 gm 01/25/25 20:46 01/26/25 11:40 Dextrose 50% 25 Gm/50 Ml Syringe IV PUSH 12.5 gm PRN PRN Administration Hypoglycemia Protocol Enoxaparin Sodium 40 mg 02/08/25 09:00 02/13/25 08:46 Enoxaparin 40 Mg/0.4 Ml Syringe SUB-Q 40 mg DAILY KANDIS Administration Fluticasone Propionate 1 spray 02/07/25 11:00 02/13/25 08:47 Fluticasone Propionate 0.05% Na Spr 16 Gm Btl (*Bkc) NASAL Not Given Q12HR KANDIS Glucagon 1 mg 01/25/25 20:46 Glucagon For Inj 1 Mg Vial IM PRN PRN Hypoglycemia Protocol Glucose 15 gm 01/25/25 20:46 Glucose Oral Gel 15 Gm Of Glucse In 37.5 Gm Tube PO PRN PRN Hypoglycemia Protocol Hydralazine HCl 10 mg 02/06/25 09:58 02/08/25 16:30 Hydralazine Hcl 20 Mg/Ml Vial IV PUSH 10 mg Q4H PRN Administration Blood Pressure - High Dextrose 1,000 mls @ 100 mls/hr 01/25/25 20:46 Dextrose 5% 1,000 Ml IVPB PRN PRN Hypoglycemia Protocol Meropenem 1 gm in 100 mls @ 200 mls/hr 01/29/25 13:00 02/13/25 06:00 IVPB 100 mls/hr Q8HR KANDIS Administration Dextrose 1,000 mls @ 75 mls/hr 02/10/25 12:15 02/12/25 23:42 Dextrose 5% 1,000 Ml IV CONT 75 mls/hr .[id number] KANDIS Administration Insulin Aspart 4 - 8 units 02/12/25 08:00 02/13/25 11:39 Insulin Aspart (*Bkc) 100 Units/Ml SUB-Q 4 units TIDWM KANDIS Administration Protocol Insulin Aspart 2 - 4 units 02/11/25 22:45 02/12/25 21:05 Insulin Aspart (*Bkc) 100 Units/Ml SUB-Q 2 units HS KANDIS Administration Protocol Insulin Glargine 10 units 01/29/25 21:00 02/01/25 21:11 Insulin Glargine (*Bkc) 100 Units/Ml SUB-Q 10 units HS KANDIS Administration Insulin Glargine 20 units 02/06/25 07:55 02/07/25 08:43 Insulin Glargine (*Bkc) 100 Units/Ml SUB-Q 20 units DAILY KANDIS Administration Ipratropium [place] 0.5 mg 02/08/25 14:00 02/13/25 07:55 Ipratropium Br 0.02% Inh Soln 0.5 Mg/2.5 Ml Vial INHALATION 0.5 mg Q6HRT KANDIS Administration Lactobacillus Acidophilus 1 pkt 02/03/25 09:00 02/07/25 12:15 Acidophilus Packet 1 Pkt Packet PO Not Given QID KANDIS Levalbuterol HCl 0.63 mg 02/08/25 14:00 02/13/25 07:55 Levalbuterol Neb 1.25 Mg/3 Ml INHALATION 0.63 mg Q6HRT KANDIS Administration Metoprolol Tartrate 5 mg 02/09/25 23:21 02/09/25 23:57 Metoprolol Tartrate Inj 5 Mg/5 Ml Vial IV PUSH 5 mg Q4H PRN Administration afib >130 Metoprolol Tartrate 50 mg 02/12/25 09:00 02/13/25 08:46 Metoprolol Tartrate 50 Mg Tab PO 50 mg Q12HR KANDIS Administration Metronidazole 500 mg 02/11/25 12:00 02/13/25 11:20 Metronidazole 500 Mg Tablet PO 500 mg Q6HR KANDIS Administration Ondansetron HCl 4 mg 01/25/25 20:51 02/06/25 22:13 Ondansetron Inj 4 Mg/2 Ml Vial IV PUSH 4 mg Q6H PRN Administration Nausea And Vomiting Pantoprazole Sodium 40 mg 02/08/25 09:00 02/13/25 08:46 Pantoprazole Sodium Iv 40 Mg Vial IV PUSH 40 mg Q12HR KANDIS Administration Tamsulosin HCl 0.4 mg 02/12/25 09:00 02/13/25 08:46 Tamsulosin Hcl 0.4 Mg Capsule PO 0.4 mg QAM KANDIS Administration Radiology Results: ITS Impressions Pelvis CT 01/26/25 14:17 IMPRESSION: 1. No significant change in a bilobed gas and fluid containing abscess in the deep pelvis. Patient canceled the planned percutaneous abscess drainage catheter placement due to discomfort despite attempts at repositioning. Abdomen X-Ray 02/07/25 08:16 IMPRESSION: NO ACUTE ABDOMINAL FINDINGS. Chest X-Ray 02/08/25 06:49 Impression: Moderate bilateral pleural effusions with bibasilar pulmonary edema/atelectasis. Abdomen/Pelvis CT 02/10/25 18:48 IMPRESSION: Interval resolution of the abscess previously detected within the vesicouterine pouch for which pigtail catheter can be removed. Residual rim-enhancing fluid collection within the rectouterine pouch measuring 6.5 cm in greatest dimension. Interval development of bilateral pleural effusions, right greater than left with right basilar consolidation. Modified Barium Swallow 02/11/25 09:37 IMPRESSION: Pharyngeal dysphagia with laryngeal penetration and aspiration with thin liquids. Please correlate with speech pathologist findings and specific feeding recommendations. Catheter Placement CT 02/12/25 14:51 IMPRESSION: 1. Successful CT-guided pelvic abscess drainage catheter placement. 2. 10 mL fluid was sent for aerobic and anaerobic cultures. 3. The catheter will be managed by Dr. Goins. Labs Labs: Laboratory Results - last 24 hr 02/12/25 02/12/25 02/12/25 12:54 16:23 20:57 WBC RBC Hgb Hct MCV MCH MCHC RDW Plt Count MPV Sodium Potassium Chloride Carbon Dioxide Anion Gap BUN Creatinine Estim Creat Clear Calc Estimated GFR Glucose POC Capillary Glucose 197 H 218 H 222 H Calcium Total Bilirubin AST ALT Alkaline Phosphatase Total Protein Albumin 02/13/25 02/13/25 02/13/25 08:10 08:24 10:09 WBC 14.2 H RBC 3.75 L Hgb 9.3 L Hct 32.6 L MCV 86.9 MCH 24.8 L MCHC 28.5 L RDW 20.3 H Plt Count 293 MPV 10.6 H Sodium 147 H Potassium 3.2 L Chloride 112 H Carbon Dioxide 32 H Anion Gap 3 L BUN 37 H Creatinine 0.52 L Estim Creat Clear Calc 101 Estimated GFR > 60 Glucose 216 H POC Capillary Glucose 220 H Calcium 7.8 L Total Bilirubin 1.4 H AST 21 ALT 12 Alkaline Phosphatase 91 Total Protein 5.0 L Albumin 2.1 L 02/13/25 11:13 WBC RBC Hgb Hct MCV MCH MCHC RDW Plt Count MPV Sodium Potassium Chloride Carbon Dioxide Anion Gap BUN Creatinine Estim Creat Clear Calc Estimated GFR Glucose POC Capillary Glucose 212 H Calcium Total Bilirubin AST ALT Alkaline Phosphatase Total Protein Albumin
--- NOTE | 2025-02-13 15:59 | PM.IMPN ---
Progress Note: A&P Assessment and Plan (1) Cardiac arrest: Code(s): I46.9 - Cardiac arrest, cause unspecified Status: Acute Assessment and Plan: Resolved Patient had a cardiac arrest after placement of a percutaneous drain in the pelvic abscess. Could be related to vasovagal, translocation of bacteria, hypoxia as patient was laying flat, hypovolemia, acidosis -successful ROSC x2, intubated in the CT scan suite by ER physician -patient did follow commands post code a continue, so not a candidate for targeted temperature management -will continue to treat underlying cause (2) Septic shock: Code(s): A41.9 - Sepsis, unspecified organism; R65.21 - Severe sepsis with septic shock Status: Acute Assessment and Plan: 02/01:In the ICU patient dropped her blood pressures -patient has been adequately fluid-resuscitated with IV fluids and albumin -01/25: Blood cultures negative x2 -02/02: repeat blood cultures -growing E coli (pansensitive) and Clostridium ramosum -02/02: Abscess fluid culture growing E coli and Bacteroides fragilis 02/03: WBC count up to 64, could be related to septic shock, infection, leukomoid reaction, steroids. Will continue to monitor -WBC count is trending down, patient is afebrile, continue to monitor --continue meropenem, Flagyl 02/04: Discontinue vancomycin -continue doxycycline for 5 days - weaning stress dose steroid -off all pressors (patient was on Levophed, Bobo-Synephrine and vasopressin) -WBC count trending down 02/04: Repeat blood cultures growing Clostridium ramosum, bacteroids fragilis 02/09: Repeat blood culture shows no growth 02/11:Removal of pelvic abscess drain by surgery 02/12: Patient successfully underwent transgluteal percutaneous abscess drain placement with IR. (3) Acute respiratory failure: Qualifiers: Respiratory failure complication: hypoxia Qualified Code(s): J96.01 - Acute respiratory failure with hypoxia Code(s): J96.00 - Acute respiratory failure, unspecified whether with hypoxia or hypercapnia Status: Acute Assessment and Plan: Acute respiratory failure likely related to cardiac arrest possible from septic shock, infection, hypovolemia, translocation of bacteria, acidosis, hypoxia -patient intubated in the CT scan suite by ER physician -02/06: Extubated Accidentally coughed upper ETT was on pressure support ventilation 10/5 for approximately 3 hours and 40 minutes -chest x-ray and ABGs reviewed -Moderate bilateral pleural effusions with bibasilar pulmonary edema/atelectasis. -continue Xopenex and Atrovent nebulizer -OFF Precedex infusion, -diuresed well with Lasix on 02/06, 02/07 -02/08: will diurese again today after placing potassium -s/p on Airvo 45% FiO2 and 45 L flow rate -patient is currently on 2 L -Continue Meropenem and Metronidazole (4) Intra-abdominal abscess: Code(s): K65.1 - Peritoneal abscess Status: Acute Assessment and Plan: Intra-abdominal abscess, status post percutaneous IR drain placement on 02/01/2025 and removal on 02/10/2025.Underwent 02/12 transgluteal percutaneous abscess drain placement by IR -draining purulent material, cultures as above -surgery is following the patient -Continue Meropenem and Metronidazole (5) Diabetes 1.5, managed as type 2: Code(s): E13.9 - Other specified diabetes mellitus without complications Status: Acute Assessment and Plan: Continue Accu-Cheks and sliding scale insulin -will discontinue Lantus for now as patient is NPO, off a stress dose steroid -Tolerating nutrition through NG (6) Hypertension: Qualifiers: Hypertension type: unspecified Qualified Code(s): I10 - Essential (primary) hypertension Code(s): I10 - Essential (primary) hypertension Status: Acute Assessment and Plan: Patient just came off pressors, continue to hold antihypertensives for now -continue p.r.n. hydralazine IV -once patient starts taking p.o. with will add her home antihypertensive (7) Anemia: Qualifiers: Anemia type: other cause Other causes of anemia: chronic disease, other Qualified Code(s): D63.8 - Anemia in other chronic diseases classified elsewhere Code(s): D64.9 - Anemia, unspecified Status: Acute Assessment and Plan: 02/03: Hemoglobin dropped to 6.3. -will transfuse 1 unit of packed RBC -hemoglobin stable -02/05: hemoglobin dropped to 7.0 -status post 1 unit of packed RBC -iron panel reflective of iron deficiency anemia and/or anemia of chronic disease -folic acid and vitamin B12 levels within normal limits -stool occult was positive -appreciate GI evaluation and recommendations -hemoglobin is stable, continue to monitor (8) Hypernatremia: Code(s): E87.0 - Hyperosmolality and hypernatremia Status: Acute Assessment and Plan: Possibly due to dehydration Increased flushing 150 mL free water q.4 hours via NG (9) Atrial fibrillation: Code(s): I48.91 - Unspecified atrial fibrillation Status: Acute Assessment and Plan: Started Metoprolol PO q 6 hrs [id number] score 3(Age,sex,DM) New onset. Order TSH ECHO:Left ventricular systolic function is normal, estimated at 55-60% Will defer anticoagulation until discussion with Surgery and Cardiology Cardiology do not want to start anticoagulation due to anemia Subjective Date/time seen: 02/13/25 15:59 Interval history: Patient was little agitated during morning. Given alprazolam 0.25. Currently doing well after Xanax. Review of Systems Review of Systems: All systems reviewed & are unremarkable except as noted in HPI and below ROS unobtainable: Yes unobtainable due to endotracheal tube, unobtainable due to medical condition and unobtainable due to mental status Exam Narrative: General: Obese female, currently in no acute distress HEENT:? Pupils equal and reactive, sclera is clear, Airvo in place Neck:? Supple Respiratory:? Coarse breath sounds bilaterally, decreased at bases, no wheezing, adequate air entry Cardiac:? S1-S2 normal, regular rate and rhythm Abdomen:? Soft, nontender, obese, hypoactive bowel sounds, left lower quadrant drain in place with purulent drainage Extremities:? Bilateral upper and lower extremity pitting edema Neuro:? Of Precedex. More awake, alert, able to answer questions, follows simple commands, Skin:? No skin lesions noted Psych:? Depressed affect Const: General: comfortable and no acute distress Other: , female, elderly, disheveled. Nontoxic appearance. HENMT: Face/Nose/Sinus: Normal nares present Mouth: Yes moist mucous membranes Eyes: General: appearance normal, both eyes and all related structures Sclera: sclerae normal Pupils: Equal, round and reactive pupils present EOM: EOMs intact bilaterally Resp: Effort & Inspection: normal respiratory effort Auscultation: clear to auscultation bilaterally Cardio: Rate: regular rate Rhythm: regular rhythm Other: S1-S2 present without murmur, rub, ectopy GI: Other: tender in the lower quadrants. hyperactive bowel sounds in the upper quadrants, normoactive in the lower. Nondistended, soft. Skin: General skin exam: normal color and no rashes or lesions noted Wounds: no wounds Neuro: Cranial nerves: Yes Equal, round and reactive pupils present Speech: normal speech Motor exam (neuro): 5/5 motor strength present throughout Sensory Exam: normal sensation Other: A&O x4 Extrem: General: normal to inspection Psych: Mental Status: mental status grossly normal Affect: normal affect Other: Malodorous, disheveled. Fair insight and judgment, pleasant. Objective Data Vital Signs Vital Signs: Vital Signs - 24 hr 02/12/25 16:00 02/12/25 16:31 02/12/25 18:00 Temperature 97.6 F Pulse Rate 68 70 72 Respiratory Rate 21 H Blood Pressure 172/88 H Pulse Oximetry 93 Oxygen Delivery Oxygen Flow Rate 02/12/25 20:00 02/12/25 20:00 02/12/25 20:02 Temperature Pulse Rate 68 71 Respiratory Rate 18 Blood Pressure Pulse Oximetry 100 Oxygen Delivery Nasal Cannula Oxygen Flow Rate 2 02/12/25 20:03 02/12/25 20:05 02/12/25 20:10 Temperature 97.8 F Pulse Rate 68 67 Respiratory Rate 20 18 Blood Pressure 130/55 L Pulse Oximetry 91 100 Oxygen Delivery Nasal Cannula Oxygen Flow Rate 1 02/12/25 20:28 02/12/25 22:00 02/12/25 23:28 Temperature 98.5 F Pulse Rate 71 55 L 53 L Respiratory Rate 20 Blood Pressure 123/57 L Pulse Oximetry 93 Oxygen Delivery Oxygen Flow Rate 02/13/25 00:00 02/13/25 00:00 02/13/25 01:59 Temperature Pulse Rate 86 91 Respiratory Rate 18 Blood Pressure Pulse Oximetry 93 Oxygen Delivery Nasal Cannula Oxygen Flow Rate 2 02/13/25 02:00 02/13/25 02:05 02/13/25 04:00 Temperature Pulse Rate 93 96 Respiratory Rate 18 Blood Pressure Pulse Oximetry 93 Oxygen Delivery Nasal Cannula Oxygen Flow Rate 2 02/13/25 04:00 02/13/25 05:50 02/13/25 06:00 Temperature 97.6 F Pulse Rate 93 99 93 Respiratory Rate 20 Blood Pressure 130/63 Pulse Oximetry 95 Oxygen Delivery Oxygen Flow Rate 02/13/25 07:51 02/13/25 07:56 02/13/25 07:56 Temperature 97.7 F Pulse Rate 95 100 Respiratory Rate 20 20 Blood Pressure 127/66 Pulse Oximetry 96 92 Oxygen Delivery Nasal Cannula Oxygen Flow Rate 0.5 02/13/25 08:00 02/13/25 08:08 02/13/25 08:46 Temperature Pulse Rate 99 104 H 103 H Respiratory Rate 18 Blood Pressure Pulse Oximetry Oxygen Delivery Oxygen Flow Rate 02/13/25 10:00 02/13/25 11:48 02/13/25 12:00 Temperature 97.8 F Pulse Rate 94 81 80 Respiratory Rate 20 Blood Pressure 135/82 Pulse Oximetry 97 Oxygen Delivery Oxygen Flow Rate 02/13/25 14:00 02/13/25 14:08 02/13/25 14:19 Temperature Pulse Rate 85 84 82 Respiratory Rate 18 18 Blood Pressure Pulse Oximetry Oxygen Delivery Oxygen Flow Rate 02/13/25 15:48 Temperature 98.6 F Pulse Rate 92 Respiratory Rate 20 Blood Pressure 129/80 Pulse Oximetry 100 Oxygen Delivery Oxygen Flow Rate Intake/Output Intake/Output: Intake & Output 02/10/25 02/11/25 02/12/25 02/13/25 23:59 23:59 23:59 23:59 Intake Total 700 1840 2520 1195 Output Total 117 684 6032 600 Balance -70 1290 1405 595 Meds/Results Medications: Active Medications Generic Name Dose Route Start Last Admin Trade Name Freq PRN Reason Stop Dose Admin Acetaminophen 650 mg 01/25/25 20:51 02/11/25 20:36 Acetaminophen 325 Mg Tablet PO 650 mg Q4H PRN Administration Headache Dextrose 12.5 gm 01/25/25 20:46 01/26/25 11:40 Dextrose 50% 25 Gm/50 Ml Syringe IV PUSH 12.5 gm PRN PRN Administration Hypoglycemia Protocol Enoxaparin Sodium 40 mg 02/08/25 09:00 02/13/25 08:46 Enoxaparin 40 Mg/0.4 Ml Syringe SUB-Q 40 mg DAILY KANDIS Administration Fluticasone Propionate 1 spray 02/07/25 11:00 02/13/25 08:47 Fluticasone Propionate 0.05% Na Spr 16 Gm Btl (*Bkc) NASAL Not Given Q12HR KANDIS Glucagon 1 mg 01/25/25 20:46 Glucagon For Inj 1 Mg Vial IM PRN PRN Hypoglycemia Protocol Glucose 15 gm 01/25/25 20:46 Glucose Oral Gel 15 Gm Of Glucse In 37.5 Gm Tube PO PRN PRN Hypoglycemia Protocol Hydralazine HCl 10 mg 02/06/25 09:58 02/08/25 16:30 Hydralazine Hcl 20 Mg/Ml Vial IV PUSH 10 mg Q4H PRN Administration Blood Pressure - High Dextrose 1,000 mls @ 100 mls/hr 01/25/25 20:46 Dextrose 5% 1,000 Ml IVPB PRN PRN Hypoglycemia Protocol Meropenem 1 gm in 100 mls @ 200 mls/hr 01/29/25 13:00 02/13/25 14:39 IVPB 100 mls/hr Q8HR KANDIS Administration Dextrose 1,000 mls @ 75 mls/hr 02/10/25 12:15 02/13/25 14:38 Dextrose 5% 1,000 Ml IV CONT Not Given .[id number] KANDIS Insulin Aspart 4 - 8 units 02/12/25 08:00 02/13/25 11:39 Insulin Aspart (*Bkc) 100 Units/Ml SUB-Q 4 units TIDWM KANDIS Administration Protocol Insulin Aspart 2 - 4 units 02/11/25 22:45 02/12/25 21:05 Insulin Aspart (*Bkc) 100 Units/Ml SUB-Q 2 units HS KANDIS Administration Protocol Insulin Glargine 10 units 01/29/25 21:00 02/01/25 21:11 Insulin Glargine (*Bkc) 100 Units/Ml SUB-Q 10 units HS KANDIS Administration Insulin Glargine 20 units 02/06/25 07:55 02/07/25 08:43 Insulin Glargine (*Bkc) 100 Units/Ml SUB-Q 20 units DAILY KANDIS Administration Ipratropium [place] 0.5 mg 02/08/25 14:00 02/13/25 14:08 Ipratropium Br 0.02% Inh Soln 0.5 Mg/2.5 Ml Vial INHALATION 0.5 mg Q6HRT KANDIS Administration Lactobacillus Acidophilus 1 pkt 02/03/25 09:00 02/07/25 12:15 Acidophilus Packet 1 Pkt Packet PO Not Given QID KANDIS Levalbuterol HCl 0.63 mg 02/08/25 14:00 02/13/25 14:08 Levalbuterol Neb 1.25 Mg/3 Ml INHALATION 0.63 mg Q6HRT KANDIS Administration Metoprolol Tartrate 5 mg 02/09/25 23:21 02/09/25 23:57 Metoprolol Tartrate Inj 5 Mg/5 Ml Vial IV PUSH 5 mg Q4H PRN Administration afib >130 Metoprolol Tartrate 50 mg 02/12/25 09:00 02/13/25 08:46 Metoprolol Tartrate 50 Mg Tab PO 50 mg Q12HR KANDIS Administration Metronidazole 500 mg 02/11/25 12:00 02/13/25 11:20 Metronidazole 500 Mg Tablet PO 500 mg Q6HR KANDIS Administration Ondansetron HCl 4 mg 01/25/25 20:51 02/06/25 22:13 Ondansetron Inj 4 Mg/2 Ml Vial IV PUSH 4 mg Q6H PRN Administration Nausea And Vomiting Pantoprazole Sodium 40 mg 02/08/25 09:00 02/13/25 08:46 Pantoprazole Sodium Iv 40 Mg Vial IV PUSH 40 mg Q12HR KANDIS Administration Tamsulosin HCl 0.4 mg 02/12/25 09:00 02/13/25 08:46 Tamsulosin Hcl 0.4 Mg Capsule PO 0.4 mg QAM KANDIS Administration Radiology Results: ITS Impressions Pelvis CT 01/26/25 14:17 IMPRESSION: 1. No significant change in a bilobed gas and fluid containing abscess in the deep pelvis. Patient canceled the planned percutaneous abscess drainage catheter placement due to discomfort despite attempts at repositioning. Abdomen X-Ray 02/07/25 08:16 IMPRESSION: NO ACUTE ABDOMINAL FINDINGS. Chest X-Ray 02/08/25 06:49 Impression: Moderate bilateral pleural effusions with bibasilar pulmonary edema/atelectasis. Abdomen/Pelvis CT 02/10/25 18:48 IMPRESSION: Interval resolution of the abscess previously detected within the vesicouterine pouch for which pigtail catheter can be removed. Residual rim-enhancing fluid collection within the rectouterine pouch measuring 6.5 cm in greatest dimension. Interval development of bilateral pleural effusions, right greater than left with right basilar consolidation. Modified Barium Swallow 02/11/25 09:37 IMPRESSION: Pharyngeal dysphagia with laryngeal penetration and aspiration with thin liquids. Please correlate with speech pathologist findings and specific feeding recommendations. Catheter Placement CT 02/12/25 14:51 IMPRESSION: 1. Successful CT-guided pelvic abscess drainage catheter placement. 2. 10 mL fluid was sent for aerobic and anaerobic cultures. 3. The catheter will be managed by Dr. Goins. Labs Labs: Laboratory Results - last 24 hr 02/12/25 02/12/25 02/13/25 16:23 20:57 08:10 WBC RBC Hgb Hct MCV MCH MCHC RDW Plt Count MPV Sodium Potassium Chloride Carbon Dioxide Anion Gap BUN Creatinine Estim Creat Clear Calc Estimated GFR Glucose POC Capillary Glucose 218 H 222 H 220 H Calcium Total Bilirubin AST ALT Alkaline Phosphatase Total Protein Albumin 02/13/25 02/13/25 02/13/25 08:24 10:09 11:13 WBC 14.2 H RBC 3.75 L Hgb 9.3 L Hct 32.6 L MCV 86.9 MCH 24.8 L MCHC 28.5 L RDW 20.3 H Plt Count 293 MPV 10.6 H Sodium 147 H Potassium 3.2 L Chloride 112 H Carbon Dioxide 32 H Anion Gap 3 L BUN 37 H Creatinine 0.52 L Estim Creat Clear Calc 101 Estimated GFR > 60 Glucose 216 H POC Capillary Glucose 212 H Calcium 7.8 L Total Bilirubin 1.4 H AST 21 ALT 12 Alkaline Phosphatase 91 Total Protein 5.0 L Albumin 2.1 L Quality VTE Prophylaxis VTE prophylaxis: pharmacologic ordered Hospitalist MIPS Advance Care Plan I have confirmed that the patient's Advanced Care Plan is present, code status is documented, or surrogate decision maker is listed in patient medical record.: Yes Medication Reconciliation I have utilized all available resources to obtain, update and review the patients current medications (includes all prescriptions, OTC, herbals, cannabis, and nutritional supplements).: Yes
[2025-02-13 16:05] LABS: Magnesium 2.4 mg/dL (1.6-2.3); Potassium 3.8 mmol/L (3.4-5.0)
[2025-02-13 18:01] LABS: Glucose Point of Care 171 mg/dl (65-105)
[2025-02-13] MEDS: DEXTROSE 5% 1,000 ML 1,000 ML 75 ML IV CONT (18:11)
[2025-02-13 20:38] LABS: Glucose Point of Care 210 mg/dl (65-105)
--- NOTE | 2025-02-13 23:20 | PC.NURSE ---
Patient moved to room 300 in stable condition. Report given to Agustin JENKINS. All questions addressed and family updated. Personal belongings were sent with the patient.
[2025-02-14] VITALS (17 sets, daily range): BP systolic 116–123; BP diastolic 51–70; PULSE 59–88; RESP 16–20; TEMP 36.3–36.6; O2SAT 95–99
[2025-02-14] MEDS: metroNIDAZOLE 500 MG TABLET PO ×4 (05:07→22:22)
[2025-02-14] MEDS: MEROPENEM 1 GM/NS 100 ML 1 GM/100 ML BAG IVPB ×3 (05:07→21:17)
[2025-02-14 06:07] LABS: Hematocrit 32.9 % (37.0-47.0); Hemoglobin 9.6 g/dL (12.0-15.0); Mean Corpuscular HGB Conc 29.2 g/dl (32-36); Mean Corpuscular Hemoglobin 25.3 pg (26-34); Mean Corpuscular Volume 86.8 fl (80-100); Mean Platelet Volume 11.5 fl (7.4-10.4); Platelet Count Result 266 k/mm3 (150-375); Red Blood Count 3.79 M/mm3 (4.2-5.4); White Blood Count 12.3 K/mm3 (4.5-10.0)
[2025-02-14 07:33] LABS: Glucose Point of Care 211 mg/dl (65-105)
[2025-02-14 07:58] LABS: Alanine Aminotransferase 13 U/L (6-35); Alkaline Phosphatase 98 U/L (38-126); Anion Gap 3 mmol/L (4-12); Aspartate Amino Transferase 19 U/L (14-36); Bilirubin,Total 1.3 mg/dL (0.2-1.3); Blood Urea Nitrogen 34 mg/dL (7-17); Calcium 7.9 mg/dL (8.4-10.2); Carbon Dioxide 33 mmol/L (22-30); Chloride 111 mmol/L (98-107); Estimated CRCL calculation 94 ml/min; Estimated Glomerular Filt Rate > 60; Glucose 210 mg/dL (65-110); Potassium 3.2 mmol/L (3.4-5.0); Sodium 147 mmol/L (137-145)
[2025-02-14] MEDS: LEVALBUTEROL NEB 1.25 MG/3 ML 0.63 MG INHALATION ×3 (08:02→20:36)
[2025-02-14] MEDS: IPRATROPIUM BR 0.02% INH SOLN 0.5 MG/2.5 ML VIAL INHALATION ×3 (08:02→20:36)
[2025-02-14] MEDS: INSULIN ASPART (*BKC) 100 UNITS/ML SUB-Q ×2 (08:25→12:25)
[2025-02-14] MEDS: METOPROLOL TARTRATE 50 MG TAB PO ×2 (08:26→21:18)
[2025-02-14] MEDS: ENOXAPARIN 40 MG/0.4 ML SYRINGE SUB-Q (08:26)
[2025-02-14] MEDS: PANTOPRAZOLE SODIUM IV 40 MG VIAL IV PUSH ×2 (08:26→21:17)
[2025-02-14] MEDS: TAMSULOSIN HCL 0.4 MG CAPSULE PO (08:26)
[2025-02-14] MEDS: DEXTROSE 5% 1,000 ML 1,000 ML 75 ML IV CONT (09:35)
--- NOTE | 2025-02-14 10:14 | P.PNIM_ITS ---
Progress Note: A&P Assessment and Plan (1) Cardiac arrest: Code(s): I46.9 - Cardiac arrest, cause unspecified Status: Acute Assessment and Plan: Resolved Patient had a cardiac arrest after placement of a percutaneous drain in the pelvic abscess. Could be related to vasovagal, translocation of bacteria, hypoxia as patient was laying flat, hypovolemia, acidosis -successful ROSC x2, intubated in the CT scan suite by ER physician -patient did follow commands post code a continue, so not a candidate for targeted temperature management -will continue to treat underlying cause (2) Septic shock: Code(s): A41.9 - Sepsis, unspecified organism; R65.21 - Severe sepsis with septic shock Status: Acute Assessment and Plan: 02/01:In the ICU patient dropped her blood pressures -patient has been adequately fluid-resuscitated with IV fluids and albumin -01/25: Blood cultures negative x2 -02/02: repeat blood cultures -growing E coli (pansensitive) and Clostridium ramosum -02/02: Abscess fluid culture growing E coli and Bacteroides fragilis 02/03: WBC count up to 64, could be related to septic shock, infection, leukomoid reaction, steroids. Will continue to monitor -WBC count is trending down, patient is afebrile, continue to monitor --continue meropenem, Flagyl 02/04: Discontinue vancomycin -continue doxycycline for 5 days - weaning stress dose steroid -off all pressors (patient was on Levophed, Bobo-Synephrine and vasopressin) -WBC count trending down 02/04: Repeat blood cultures growing Clostridium ramosum, bacteroids fragilis 02/09: Repeat blood culture shows no growth 02/11:Removal of pelvic abscess drain by surgery 02/12: Patient successfully underwent transgluteal percutaneous abscess drain placement with IR. (3) Acute respiratory failure: Qualifiers: Respiratory failure complication: hypoxia Qualified Code(s): J96.01 - Acute respiratory failure with hypoxia Code(s): J96.00 - Acute respiratory failure, unspecified whether with hypoxia or hypercapnia Status: Acute Assessment and Plan: Acute respiratory failure likely related to cardiac arrest possible from septic shock, infection, hypovolemia, translocation of bacteria, acidosis, hypoxia -patient intubated in the CT scan suite by ER physician -02/06: Extubated Accidentally coughed upper ETT was on pressure support ventilation 10/5 for approximately 3 hours and 40 minutes -chest x-ray and ABGs reviewed -Moderate bilateral pleural effusions with bibasilar pulmonary edema/atelectasis. -continue Xopenex and Atrovent nebulizer -OFF Precedex infusion, -diuresed well with Lasix on 02/06, 02/07 -02/08: will diurese again today after placing potassium -s/p on Airvo 45% FiO2 and 45 L flow rate -patient is currently on 2 L -Continue Meropenem and Metronidazole (4) Intra-abdominal abscess: Code(s): K65.1 - Peritoneal abscess Status: Acute Assessment and Plan: Intra-abdominal abscess, status post percutaneous IR drain placement on 02/01/2025 and removal on 02/10/2025.Underwent 02/12 transgluteal percutaneous abscess drain placement by IR -draining purulent material, cultures as above -surgery is following the patient -Continue Meropenem and Metronidazole -culture grows E coli (5) Diabetes 1.5, managed as type 2: Code(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 hydralazine IV -once patient starts taking p.o. with will add her home antihypertensive (7) Anemia: Qualifiers: Anemia type: other cause Other causes of anemia: chronic disease, other Qualified Code(s): D63.8 - Anemia in other chronic diseases classified elsewhere Code(s): D64.9 - Anemia, unspecified Status: Acute Assessment and Plan: 02/03: Hemoglobin dropped to 6.3. -will transfuse 1 unit of packed RBC -hemoglobin stable -02/05: hemoglobin dropped to 7.0 -status post 1 unit of packed RBC -iron panel reflective of iron deficiency anemia and/or anemia of chronic disease -folic acid and vitamin B12 levels within normal limits -stool occult was positive -appreciate GI evaluation and recommendations -hemoglobin is stable, continue to monitor (8) Hypernatremia: Code(s): E87.0 - Hyperosmolality and hypernatremia Status: Acute Assessment and Plan: Possibly due to dehydration Increased flushing 150 mL free water q.4 hours via NG Stop D5W due to extremity swelling (9) Atrial fibrillation: Code(s): I48.91 - Unspecified atrial fibrillation Status: Acute Assessment and Plan: Started Metoprolol PO q 6 hrs [id number] score 3(Age,sex,DM) New onset. Order TSH ECHO:Left ventricular systolic function is normal, estimated at 55-60% Will defer anticoagulation until discussion with Surgery and Cardiology Cardiology do not want to start anticoagulation due to anemia Subjective Date/time seen: 02/14/25 10:14 Interval history: Will resume Lantus 10 units HS since patient started eating. Patient extremities were swollen. Will stop fluids which was started due to Hypernatremia. We will give 1 dose of lasix 40mg. In regards to better during the output has been reduced surgery will repeat the CT scan Review of Systems Review of Systems: All systems reviewed & are unremarkable except as noted in HPI and below ROS unobtainable: Yes unobtainable due to endotracheal tube, unobtainable due to medical condition and unobtainable due to mental status Exam Narrative: General: Obese female, currently in no acute distress HEENT:? Pupils equal and reactive, sclera is clear, Airvo in place Neck:? Supple Respiratory:? Coarse breath sounds bilaterally, decreased at bases, no wheezing, adequate air entry Cardiac:? S1-S2 normal, regular rate and rhythm Abdomen:? Soft, nontender, obese, hypoactive bowel sounds, left lower quadrant drain in place with purulent drainage Extremities:? Bilateral upper and lower extremity pitting edema Neuro:? Of Precedex. More awake, alert, able to answer questions, follows simple commands, Skin:? No skin lesions noted Psych:? Depressed affect Const: General: comfortable and no acute distress Other: , female, elderly, disheveled. Nontoxic appearance. HENMT: Face/Nose/Sinus: Normal nares present Mouth: Yes moist mucous membranes Eyes: General: appearance normal, both eyes and all related structures Sclera: sclerae normal Pupils: Equal, round and reactive pupils present EOM: EOMs intact bilaterally Resp: Effort & Inspection: normal respiratory effort Auscultation: clear to auscultation bilaterally Cardio: Rate: regular rate Rhythm: regular rhythm Other: S1-S2 present without murmur, rub, ectopy GI: Other: tender in the lower quadrants. hyperactive bowel sounds in the upper quadrants, normoactive in the lower. Nondistended, soft. Skin: General skin exam: normal color and no rashes or lesions noted Wounds: no wounds Neuro: Cranial nerves: Yes Equal, round and reactive pupils present Speech: normal speech Motor exam (neuro): 5/5 motor strength present throughout Sensory Exam: normal sensation Other: A&O x4 Extrem: General: normal to inspection Psych: Mental Status: mental status grossly normal Affect: normal affect Other: Malodorous, disheveled. Fair insight and judgment, pleasant. Objective Data Vital Signs Vital Signs: Vital Signs - 24 hr 02/13/25 11:48 02/13/25 12:00 02/13/25 14:00 Temperature 97.8 F Pulse Rate 81 80 85 Respiratory Rate 20 Blood Pressure 135/82 Pulse Oximetry 97 Oxygen Delivery Oxygen Flow Rate 02/13/25 14:08 02/13/25 14:19 02/13/25 15:48 Temperature 98.6 F Pulse Rate 84 82 92 Respiratory Rate 18 18 20 Blood Pressure 129/80 Pulse Oximetry 100 Oxygen Delivery Oxygen Flow Rate 02/13/25 16:00 02/13/25 18:00 02/13/25 20:00 Temperature Pulse Rate 86 104 H Respiratory Rate Blood Pressure Pulse Oximetry 100 Oxygen Delivery Nasal Cannula Oxygen Flow Rate 2 02/13/25 20:00 02/13/25 20:00 02/13/25 20:20 Temperature 97.4 F L Pulse Rate 105 H 108 H 108 H Respiratory Rate 21 H Blood Pressure 104/60 Pulse Oximetry 97 Oxygen Delivery Oxygen Flow Rate 02/13/25 23:48 02/14/25 00:00 02/14/25 04:00 Temperature 97.1 F L Pulse Rate 73 78 86 Respiratory Rate 20 Blood Pressure 108/59 L Pulse Oximetry 99 Oxygen Delivery Oxygen Flow Rate 02/14/25 05:41 02/14/25 08:00 02/14/25 08:02 Temperature 97.4 F L Pulse Rate 79 Respiratory Rate 18 Blood Pressure 116/70 Pulse Oximetry 98 96 96 Oxygen Delivery Nasal Cannula Nasal Cannula Oxygen Flow Rate 1 2 02/14/25 08:02 02/14/25 08:21 Temperature Pulse Rate 60 68 Respiratory Rate 20 20 Blood Pressure Pulse Oximetry Oxygen Delivery Oxygen Flow Rate Intake/Output Intake/Output: Intake & Output 02/11/25 02/12/25 02/13/25 02/14/25 23:59 23:59 23:59 23:59 Intake Total 1840 2520 1665 1360 Output Total 550 1115 1050 200 Balance 1290 2449 252 0702 Meds/Results Medications: Active Medications Generic Name Dose Route Start Last Admin Trade Name Freq PRN Reason Stop Dose Admin Acetaminophen 650 mg 01/25/25 20:51 02/11/25 20:36 Acetaminophen 325 Mg Tablet PO 650 mg Q4H PRN Administration Headache Dextrose 12.5 gm 01/25/25 20:46 01/26/25 11:40 Dextrose 50% 25 Gm/50 Ml Syringe IV PUSH 12.5 gm PRN PRN Administration Hypoglycemia Protocol Enoxaparin Sodium 40 mg 02/08/25 09:00 02/14/25 08:26 Enoxaparin 40 Mg/0.4 Ml Syringe SUB-Q 40 mg DAILY KANDIS Administration Fluticasone Propionate 1 spray 02/07/25 11:00 02/14/25 08:26 Fluticasone Propionate 0.05% Na Spr 16 Gm Btl (*Bkc) NASAL Not Given Q12HR KANDIS Glucagon 1 mg 01/25/25 20:46 Glucagon For Inj 1 Mg Vial IM PRN PRN Hypoglycemia Protocol Glucose 15 gm 01/25/25 20:46 Glucose Oral Gel 15 Gm Of Glucse In 37.5 Gm Tube PO PRN PRN Hypoglycemia Protocol Hydralazine HCl 10 mg 02/06/25 09:58 02/08/25 16:30 Hydralazine Hcl 20 Mg/Ml Vial IV PUSH 10 mg Q4H PRN Administration Blood Pressure - High Dextrose 1,000 mls @ 100 mls/hr 01/25/25 20:46 Dextrose 5% 1,000 Ml IVPB PRN PRN Hypoglycemia Protocol Meropenem 1 gm in 100 mls @ 200 mls/hr 01/29/25 13:00 02/14/25 05:07 IVPB 100 mls/hr Q8HR KANDIS Administration Dextrose 1,000 mls @ 75 mls/hr 02/10/25 12:15 02/14/25 09:35 Dextrose 5% 1,000 Ml IV CONT 75 mls/hr .[id number] KANDIS Administration Insulin Aspart 4 - 8 units 02/12/25 08:00 02/14/25 08:25 Insulin Aspart (*Bkc) 100 Units/Ml SUB-Q 4 units TIDWM KANDIS Administration Protocol Insulin Aspart 2 - 4 units 02/11/25 22:45 02/13/25 20:23 Insulin Aspart (*Bkc) 100 Units/Ml SUB-Q 2 units HS KANDIS Administration Protocol Insulin Glargine 10 units 01/29/25 21:00 02/01/25 21:11 Insulin Glargine (*Bkc) 100 Units/Ml SUB-Q 10 units HS KANDIS Administration Insulin Glargine 20 units 02/06/25 07:55 02/07/25 08:43 Insulin Glargine (*Bkc) 100 Units/Ml SUB-Q 20 units DAILY KANDIS Administration Ipratropium [address] 0.5 mg 02/08/25 14:00 02/14/25 08:02 Ipratropium Br 0.02% Inh Soln 0.5 Mg/2.5 Ml Vial INHALATION 0.5 mg Q6HRT KANDIS Administration Lactobacillus Acidophilus 1 pkt 02/03/25 09:00 02/07/25 12:15 Acidophilus Packet 1 Pkt Packet PO Not Given QID KANDIS Levalbuterol HCl 0.63 mg 02/08/25 14:00 02/14/25 08:02 Levalbuterol Neb 1.25 Mg/3 Ml INHALATION 0.63 mg Q6HRT KANDIS Administration Metoprolol Tartrate 5 mg 02/09/25 23:21 02/09/25 23:57 Metoprolol Tartrate Inj 5 Mg/5 Ml Vial IV PUSH 5 mg Q4H PRN Administration afib >130 Metoprolol Tartrate 50 mg 02/12/25 09:00 02/14/25 08:26 Metoprolol Tartrate 50 Mg Tab PO 50 mg Q12HR KADNIS Administration Metronidazole 500 mg 02/11/25 12:00 02/14/25 05:07 Metronidazole 500 Mg Tablet PO 500 mg Q6HR KANDIS Administration Ondansetron HCl 4 mg 01/25/25 20:51 02/06/25 22:13 Ondansetron Inj 4 Mg/2 Ml Vial IV PUSH 4 mg Q6H PRN Administration Nausea And Vomiting Pantoprazole Sodium 40 mg 02/08/25 09:00 02/14/25 08:26 Pantoprazole Sodium Iv 40 Mg Vial IV PUSH 40 mg Q12HR KANDIS Administration Tamsulosin HCl 0.4 mg 02/12/25 09:00 02/14/25 08:26 Tamsulosin Hcl 0.4 Mg Capsule PO 0.4 mg QAM KANDIS Administration Radiology Results: ITS Impressions Pelvis CT 01/26/25 14:17 IMPRESSION: 1. No significant change in a bilobed gas and fluid containing abscess in the deep pelvis. Patient canceled the planned percutaneous abscess drainage catheter placement due to discomfort despite attempts at repositioning. Abdomen X-Ray 02/07/25 08:16 IMPRESSION: NO ACUTE ABDOMINAL FINDINGS. Chest X-Ray 02/08/25 06:49 Impression: Moderate bilateral pleural effusions with bibasilar pulmonary edema/atelectasis. Abdomen/Pelvis CT 02/10/25 18:48 IMPRESSION: Interval resolution of the abscess previously detected within the vesicouterine pouch for which pigtail catheter can be removed. Residual rim-enhancing fluid collection within the rectouterine pouch measuring 6.5 cm in greatest dimension. Interval development of bilateral pleural effusions, right greater than left with right basilar consolidation. Modified Barium Swallow 02/11/25 09:37 IMPRESSION: Pharyngeal dysphagia with laryngeal penetration and aspiration with thin liquids. Please correlate with speech pathologist findings and specific feeding recommendations. Catheter Placement CT 02/12/25 14:51 IMPRESSION: 1. Successful CT-guided pelvic abscess drainage catheter placement. 2. 10 mL fluid was sent for aerobic and anaerobic cultures. 3. The catheter will be managed by Dr. Goins. Labs Labs: Laboratory Results - last 24 hr 02/13/25 02/13/25 02/13/25 10:09 11:13 15:37 WBC 14.2 H RBC 3.75 L Hgb 9.3 L Hct 32.6 L MCV 86.9 MCH 24.8 L MCHC 28.5 L RDW 20.3 H Plt Count 293 MPV 10.6 H Sodium Potassium Chloride Carbon Dioxide Anion Gap BUN Creatinine Estim Creat Clear Calc Estimated GFR Glucose POC Capillary Glucose 212 H 171 H Calcium Magnesium Total Bilirubin AST ALT Alkaline Phosphatase Total Protein Albumin 02/13/25 02/13/25 02/14/25 15:49 20:21 05:22 WBC 12.3 H RBC 3.79 L Hgb 9.6 L Hct 32.9 L MCV 86.8 MCH 25.3 L MCHC 29.2 L RDW 21.0 H Plt Count 266 MPV 11.5 H Sodium Potassium 3.8 Chloride Carbon Dioxide Anion Gap BUN Creatinine Estim Creat Clear Calc Estimated GFR Glucose POC Capillary Glucose 210 H Calcium Magnesium 2.4 H Total Bilirubin AST ALT Alkaline Phosphatase Total Protein Albumin 02/14/25 02/14/25 07:13 07:16 WBC RBC Hgb Hct MCV MCH MCHC RDW Plt Count MPV Sodium 147 H Potassium 3.2 L Chloride 111 H Carbon Dioxide 33 H Anion Gap 3 L BUN 34 H Creatinine 0.56 L Estim Creat Clear Calc 94 Estimated GFR > 60 Glucose 210 H POC Capillary Glucose 211 H Calcium 7.9 L Magnesium Total Bilirubin 1.3 AST 19 ALT 13 Alkaline Phosphatase 98 Total Protein 5.0 L Albumin 2.0 L Quality VTE Prophylaxis VTE prophylaxis: pharmacologic ordered Hospitalist MIPS Advance Care Plan I have confirmed that the patient's Advanced Care Plan is present, code status i s documented, or surrogate decision maker is listed in patient medical record.: Yes Medication Reconciliation I have utilized all available resources to obtain, update and review the patients current medications (includes all prescriptions, OTC, herbals, cannabis, and nutritional supplements).: Yes
[2025-02-14 11:29] LABS: Glucose Point of Care 213 mg/dl (65-105)
[2025-02-14] MEDS: FUROSEMIDE INJ 40 MG/4 ML VIAL IV PUSH (16:56)
[2025-02-14 17:00] LABS: Glucose Point of Care 148 mg/dl (65-105)
[2025-02-14 20:35] LABS: Glucose Point of Care 131 mg/dl (65-105)
[2025-02-14] MEDS: POTASSIUM CHLORIDE 20 MEQ ER TABLET 60 MEQ PO (21:18)
[2025-02-14] MEDS: INSULIN GLARGINE (*BKC) 100 UNITS/ML 10 UNITS SUB-Q (21:19)
[2025-02-14] MEDS: FLUTICASONE PROPIONATE 0.05% NA SPR 16 GM BTL (*BKC) 1 SPRAY NASAL (21:24)
[2025-02-14 23:57] LABS: Toxigenic C. Diff NEGATIVE (NEGATIVE)
[2025-02-15] VITALS (12 sets, daily range): BP systolic 108–146; BP diastolic 62–64; PULSE 55–68; RESP 16–20; TEMP 36.3–36.9; O2SAT 95–100
[2025-02-15] MEDS: metroNIDAZOLE 500 MG TABLET PO ×4 (05:48→23:54)
[2025-02-15] MEDS: MEROPENEM 1 GM/NS 100 ML 1 GM/100 ML BAG IVPB (05:48)
[2025-02-15 07:33] LABS: Glucose Point of Care 120 mg/dl (65-105)
--- NOTE | 2025-02-15 08:06 | PCPTNOTE ---
The patient treatment was not able to be completed at this time due to patient out of room for testing. Will plan to continue treatment per plan of care.
--- NOTE | 2025-02-15 08:46 | PM.PNGS ---
Progress Note: A&P Assessment and Plan (1) Intra-abdominal abscess: Code(s): K65.1 - Peritoneal abscess Status: Acute Assessment and Plan: minimal drainage, cont abx, will get CT to further assess abscess Subjective Subjective Date/Time Seen: 02/15/25 08:46 Interval history: no acute issues, just tired, weak, no abd pain Review of Systems Review of Systems: All systems reviewed & are unremarkable except as noted in HPI and below Exam Const: General: cooperative, comfortable, no acute distress and ill appearing Resp: Auscultation: clear to auscultation bilaterally Cardio: Rate: regular rate Rhythm: regular rhythm GI: Inspection: normal to inspection and non-distended GI Palp: No abdominal tenderness and Yes Soft to palpation Other: drain with minimal purulent output Objective Data Vital Signs Vital Signs: Vital Signs - 24 hr 02/14/25 12:00 02/14/25 14:00 02/14/25 14:16 Temperature 36.3 C L Pulse Rate 65 59 L Respiratory Rate 16 Blood Pressure 123/51 L Pulse Oximetry 95 95 Oxygen Delivery Nasal Cannula Oxygen Flow Rate 1 02/14/25 14:16 02/14/25 14:27 02/14/25 16:00 Temperature Pulse Rate 68 67 69 Respiratory Rate 20 20 Blood Pressure Pulse Oximetry Oxygen Delivery Oxygen Flow Rate 02/14/25 16:30 02/14/25 19:45 02/14/25 20:00 Temperature 36.6 C Pulse Rate 68 Respiratory Rate 16 Blood Pressure 116/60 Pulse Oximetry 99 97 97 Oxygen Delivery Nasal Cannula Nasal Cannula Oxygen Flow Rate 2 1 02/14/25 20:00 02/14/25 20:36 02/14/25 20:41 Temperature Pulse Rate 68 72 72 Respiratory Rate 18 Blood Pressure Pulse Oximetry 97 Oxygen Delivery Nasal Cannula Oxygen Flow Rate 1 02/14/25 20:53 02/15/25 00:00 02/15/25 04:00 Temperature Pulse Rate 69 60 58 L Respiratory Rate 18 Blood Pressure Pulse Oximetry Oxygen Delivery Oxygen Flow Rate 02/15/25 04:37 Temperature 36.9 C Pulse Rate 60 Respiratory Rate 16 Blood Pressure 108/64 Pulse Oximetry 100 Oxygen Delivery Oxygen Flow Rate Intake/Output Intake/Output: Intake & Output 02/12/25 02/13/25 02/14/25 02/15/25 23:59 23:59 23:59 23:59 Intake Total 2520 1665 1860 100 Output Total 1115 1050 1200 330 Balance 1405 615 660 -230 Meds/Results Medications: Active Medications Generic Name Dose Route Start Last Admin Trade Name Freq PRN Reason Stop Dose Admin Acetaminophen 650 mg 01/25/25 20:51 02/11/25 20:36 Acetaminophen 325 Mg Tablet PO 650 mg Q4H PRN Administration Headache Dextrose 12.5 gm 01/25/25 20:46 01/26/25 11:40 Dextrose 50% 25 Gm/50 Ml Syringe IV PUSH 12.5 gm PRN PRN Administration Hypoglycemia Protocol Enoxaparin Sodium 40 mg 02/08/25 09:00 02/14/25 08:26 Enoxaparin 40 Mg/0.4 Ml Syringe SUB-Q 40 mg DAILY KANDIS Administration Fluticasone Propionate 1 spray 02/07/25 11:00 02/14/25 21:24 Fluticasone Propionate 0.05% Na Spr 16 Gm Btl (*Bkc) NASAL 1 spray Q12HR KANDIS Administration Glucagon 1 mg 01/25/25 20:46 Glucagon For Inj 1 Mg Vial IM PRN PRN Hypoglycemia Protocol Glucose 15 gm 01/25/25 20:46 Glucose Oral Gel 15 Gm Of Glucse In 37.5 Gm Tube PO PRN PRN Hypoglycemia Protocol Hydralazine HCl 10 mg 02/06/25 09:58 02/08/25 16:30 Hydralazine Hcl 20 Mg/Ml Vial IV PUSH 10 mg Q4H PRN Administration Blood Pressure - High Dextrose 1,000 mls @ 100 mls/hr 01/25/25 20:46 Dextrose 5% 1,000 Ml IVPB PRN PRN Hypoglycemia Protocol Meropenem 1 gm in 100 mls @ 200 mls/hr 01/29/25 13:00 02/15/25 06:48 IVPB Infused Q8HR KANDIS Infusion Insulin Aspart 4 - 8 units 02/12/25 08:00 02/15/25 08:00 Insulin Aspart (*Bkc) 100 Units/Ml SUB-Q Not Given TIDWM [facility] Protocol Insulin Aspart 2 - 4 units 02/11/25 22:45 02/14/25 22:21 Insulin Aspart (*Bkc) 100 Units/Ml SUB-Q Not Given HS [facility] Protocol Insulin Glargine 10 units 01/29/25 21:00 02/14/25 21:19 Insulin Glargine (*Bkc) 100 Units/Ml SUB-Q 10 units HS KANDIS Administration Insulin Glargine 20 units 02/06/25 07:55 02/07/25 08:43 Insulin Glargine (*Bkc) 100 Units/Ml SUB-Q 20 units DAILY KANDIS Administration Ipratropium [place] 0.5 mg 02/08/25 14:00 02/15/25 04:25 Ipratropium Br 0.02% Inh Soln 0.5 Mg/2.5 Ml Vial INHALATION Not Given Q6HRT KANDIS Lactobacillus Acidophilus 1 pkt 02/03/25 09:00 02/07/25 12:15 Acidophilus Packet 1 Pkt Packet PO Not Given QID KANDIS Levalbuterol HCl 0.63 mg 02/08/25 14:00 02/15/25 04:25 Levalbuterol Neb 1.25 Mg/3 Ml INHALATION Not Given Q6HRT [facility] Metoprolol Tartrate 5 mg 02/09/25 23:21 02/09/25 23:57 Metoprolol Tartrate Inj 5 Mg/5 Ml Vial IV PUSH 5 mg Q4H PRN Administration afib >130 Metoprolol Tartrate 50 mg 02/12/25 09:00 02/14/25 21:18 Metoprolol Tartrate 50 Mg Tab PO 50 mg Q12HR KANDIS Administration Metronidazole 500 mg 02/11/25 12:00 02/15/25 05:48 Metronidazole 500 Mg Tablet PO 500 mg Q6HR KANDIS Administration Ondansetron HCl 4 mg 01/25/25 20:51 02/06/25 22:13 Ondansetron Inj 4 Mg/2 Ml Vial IV PUSH 4 mg Q6H PRN Administration Nausea And Vomiting Pantoprazole Sodium 40 mg 02/08/25 09:00 02/14/25 21:17 Pantoprazole Sodium Iv 40 Mg Vial IV PUSH 40 mg Q12HR KANDIS Administration Tamsulosin HCl 0.4 mg 02/12/25 09:00 02/14/25 08:26 Tamsulosin Hcl 0.4 Mg Capsule PO 0.4 mg QAM KANDIS Administration Radiology Results: ITS Impressions Pelvis CT 01/26/25 14:17 IMPRESSION: 1. No significant change in a bilobed gas and fluid containing abscess in the deep pelvis. Patient canceled the planned percutaneous abscess drainage catheter placement due to discomfort despite attempts at repositioning. Abdomen X-Ray 02/07/25 08:16 IMPRESSION: NO ACUTE ABDOMINAL FINDINGS. Chest X-Ray 02/08/25 06:49 Impression: Moderate bilateral pleural effusions with bibasilar pulmonary edema/atelectasis. Modified Barium Swallow 02/11/25 09:37 IMPRESSION: Pharyngeal dysphagia with laryngeal penetration and aspiration with thin liquids. Please correlate with speech pathologist findings and specific feeding recommendations. Catheter Placement CT 02/12/25 14:51 IMPRESSION: 1. Successful CT-guided pelvic abscess drainage catheter placement. 2. 10 mL fluid was sent for aerobic and anaerobic cultures. 3. The catheter will be managed by Dr. Goins. Abdomen/Pelvis CT 02/15/25 08:26 IMPRESSION: 1. Significant decrease in size of a presacral abscess likely related to prior sigmoid diverticulitis post right transgluteal percutaneous abscess drainage catheter placement. 2. Small bilateral pleural effusions with dependent compressive atelectasis in both lungs. 3. Cholelithiasis. 4. Bilateral nonobstructing nephrolithiasis. Labs Labs: Laboratory Results - last 24 hr 02/14/25 02/14/25 02/14/25 11:19 16:56 18:53 POC Capillary Glucose 213 H 148 H C. difficile (PCR) Negative 02/14/25 02/15/25 19:58 07:22 POC Capillary Glucose 131 H 120 H C. difficile (PCR)
[2025-02-15] MEDS: ENOXAPARIN 40 MG/0.4 ML SYRINGE SUB-Q (09:25)
[2025-02-15] MEDS: TAMSULOSIN HCL 0.4 MG CAPSULE PO (09:26)
[2025-02-15] MEDS: METOPROLOL TARTRATE 50 MG TAB PO ×2 (09:26→21:34)
[2025-02-15] MEDS: PANTOPRAZOLE SODIUM IV 40 MG VIAL IV PUSH ×2 (09:26→21:33)
--- NOTE | 2025-02-15 10:45 | PM.IMPN ---
Progress Note: A&P Assessment and Plan (1) Cardiac arrest: Code(s): I46.9 - Cardiac arrest, cause unspecified Status: Acute Assessment and Plan: Resolved Patient had a cardiac arrest after placement of a percutaneous drain in the pelvic abscess. Could be related to vasovagal, translocation of bacteria, hypoxia as patient was laying flat, hypovolemia, acidosis -successful ROSC x2, intubated in the CT scan suite by ER physician -patient did follow commands post code a continue, so not a candidate for targeted temperature management -will continue to treat underlying cause (2) Septic shock: Code(s): A41.9 - Sepsis, unspecified organism; R65.21 - Severe sepsis with septic shock Status: Acute Assessment and Plan: 02/01:In the ICU patient dropped her blood pressures -patient has been adequately fluid-resuscitated with IV fluids and albumin -01/25: Blood cultures negative x2 -02/02: repeat blood cultures -growing E coli (pansensitive) and Clostridium ramosum -02/02: Abscess fluid culture growing E coli and Bacteroides fragilis 02/03: WBC count up to 64, could be related to septic shock, infection, leukomoid reaction, steroids. Will continue to monitor -WBC count is trending down, patient is afebrile, continue to monitor --continue meropenem, Flagyl 02/04: Discontinue vancomycin -continue doxycycline for 5 days - weaning stress dose steroid -off all pressors (patient was on Levophed, Bobo-Synephrine and vasopressin) -WBC count trending down 02/04: Repeat blood cultures growing Clostridium ramosum, bacteroids fragilis 02/09: Repeat blood culture shows no growth 02/11:Removal of pelvic abscess drain by surgery 02/12: Patient successfully underwent transgluteal percutaneous abscess drain placement with IR. 02/15 abscess culture from 02/12 positive for E coli continue meropenem (3) Acute respiratory failure: Qualifiers: Respiratory failure complication: hypoxia Qualified Code(s): J96.01 - Acute respiratory failure with hypoxia Code(s): J96.00 - Acute respiratory failure, unspecified whether with hypoxia or hypercapnia Status: Acute Assessment and Plan: Acute respiratory failure likely related to cardiac arrest possible from septic shock, infection, hypovolemia, translocation of bacteria, acidosis, hypoxia -patient intubated in the CT scan suite by ER physician -02/06: Extubated Accidentally coughed upper ETT was on pressure support ventilation 10/5 for approximately 3 hours and CXR showed bilateral pulm edema with pleural effusion Started on Lasix on 40mg bid and monitor (4) Intra-abdominal abscess: Code(s): K65.1 - Peritoneal abscess Status: Acute Assessment and Plan: Intra-abdominal abscess, status post percutaneous IR drain placement on 02/01/2025 and removal on 02/10/2025.Underwent 02/12 transgluteal percutaneous abscess drain placement by IR -draining purulent material, cultures as above -surgery is following the patient -Continue Meropenem and Metronidazole -culture grows E coli (5) Diabetes 1.5, managed as type 2: Code(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 hydralazine IV -once patient starts taking p.o. with will add her home antihypertensive (7) Anemia: Qualifiers: Anemia type: other cause Other causes of anemia: chronic disease, other Qualified Code(s): D63.8 - Anemia in other chronic diseases classified elsewhere Code(s): D64.9 - Anemia, unspecified Status: Acute Assessment and Plan: 02/03: Hemoglobin dropped to 6.3. -will transfuse 1 unit of packed RBC -hemoglobin stable -02/05: hemoglobin dropped to 7.0 -status post 1 unit of packed RBC -iron panel reflective of iron deficiency anemia and/or anemia of chronic disease -folic acid and vitamin B12 levels within normal limits -stool occult was positive -appreciate GI evaluation and no recommendations for endoscopy as patient does not have any overt bleeding -hemoglobin is stable, 9.6 continue to monitor (8) Hypernatremia: Code(s): E87.0 - Hyperosmolality and hypernatremia Status: Acute Assessment and Plan: Started Albumin infusion hold free water and monitor (9) Atrial fibrillation: Code(s): I48.91 - Unspecified atrial fibrillation Status: Acute Assessment and Plan: Started Metoprolol PO q 6 hrs [id number] score 3(Age,sex,DM) New onset. Order TSH ECHO:Left ventricular systolic function is normal, estimated at 55-60% Will defer anticoagulation until discussion with Surgery and Cardiology Cardiology do not want to start anticoagulation due to anemia Plan DVT prophylaxis on Sq lovenox Subjective Date/time seen: 02/15/25 10:45 Interval history: Comfortable at bedside Abscess culture positive for E coli Blood culture finally negative on 02/08/25 Review of Systems Review of Systems: All systems reviewed & are unremarkable except as noted in HPI and below ROS unobtainable: Yes unobtainable due to endotracheal tube, unobtainable due to medical condition and unobtainable due to mental status Exam Narrative: General: Obese female, currently in no acute distress HEENT:? Pupils equal and reactive, sclera is clear, Airvo in place Neck:? Supple Respiratory:? Coarse breath sounds bilaterally, decreased at bases, no wheezing, adequate air entry Cardiac:? S1-S2 normal, regular rate and rhythm Abdomen:? Soft, nontender, obese, hypoactive bowel sounds, left lower quadrant drain in place with purulent drainage Extremities:? Bilateral upper and lower extremity pitting edema Neuro:? Of Precedex. More awake, alert, able to answer questions, follows simple commands, Skin:? No skin lesions noted Psych:? Depressed affect Const: General: comfortable and no acute distress Other: , female, elderly, disheveled. Nontoxic appearance. HENMT: Face/Nose/Sinus: Normal nares present Mouth: Yes moist mucous membranes Eyes: General: appearance normal, both eyes and all related structures Sclera: sclerae normal Pupils: Equal, round and reactive pupils present EOM: EOMs intact bilaterally Resp: Effort & Inspection: normal respiratory effort Auscultation: clear to auscultation bilaterally Cardio: Rate: regular rate Rhythm: regular rhythm Other: S1-S2 present without murmur, rub, ectopy GI: Other: tender in the lower quadrants. hyperactive bowel sounds in the upper quadrants, normoactive in the lower. Nondistended, soft. Skin: General skin exam: normal color and no rashes or lesions noted Wounds: no wounds Neuro: Cranial nerves: Yes Equal, round and reactive pupils present Speech: normal speech Motor exam (neuro): 5/5 motor strength present throughout Sensory Exam: normal sensation Other: A&O x4 Extrem: General: normal to inspection Psych: Mental Status: mental status grossly normal Affect: normal affect Other: Malodorous, disheveled. Fair insight and judgment, pleasant. Objective Data Vital Signs Vital Signs: Vital Signs - 24 hr 02/14/25 12:00 02/14/25 14:00 02/14/25 14:16 Temperature 97.3 F L Pulse Rate 65 59 L Respiratory Rate 16 Blood Pressure 123/51 L Pulse Oximetry 95 95 Oxygen Delivery Nasal Cannula Oxygen Flow Rate 1 02/14/25 14:16 02/14/25 14:27 02/14/25 16:00 Temperature Pulse Rate 68 67 69 Respiratory Rate 20 20 Blood Pressure Pulse Oximetry Oxygen Delivery Oxygen Flow Rate 02/14/25 16:30 02/14/25 19:45 02/14/25 20:00 Temperature 97.9 F Pulse Rate 68 Respiratory Rate 16 Blood Pressure 116/60 Pulse Oximetry 99 97 97 Oxygen Delivery Nasal Cannula Nasal Cannula Oxygen Flow Rate 2 1 02/14/25 20:00 02/14/25 20:36 02/14/25 20:41 Temperature Pulse Rate 68 72 72 Respiratory Rate 18 Blood Pressure Pulse Oximetry 97 Oxygen Delivery Nasal Cannula Oxygen Flow Rate 1 02/14/25 20:53 02/15/25 00:00 02/15/25 04:00 Temperature Pulse Rate 69 60 58 L Respiratory Rate 18 Blood Pressure Pulse Oximetry Oxygen Delivery Oxygen Flow Rate 02/15/25 04:37 02/15/25 09:26 Temperature 98.4 F Pulse Rate 60 60 Respiratory Rate 16 Blood Pressure 108/64 Pulse Oximetry 100 Oxygen Delivery Oxygen Flow Rate Intake/Output Intake/Output: Intake & Output 02/12/25 02/13/25 02/14/25 02/15/25 23:59 23:59 23:59 23:59 Intake Total 2520 1665 1860 300 Output Total 1115 1050 1200 330 Balance 1405 615 660 -30 Meds/Results Medications: Active Medications Generic Name Dose Route Start Last Admin Trade Name Freq PRN Reason Stop Dose Admin Acetaminophen 650 mg 01/25/25 20:51 02/11/25 20:36 Acetaminophen 325 Mg Tablet PO 650 mg Q4H PRN Administration Headache Dextrose 12.5 gm 01/25/25 20:46 01/26/25 11:40 Dextrose 50% 25 Gm/50 Ml Syringe IV PUSH 12.5 gm PRN PRN Administration Hypoglycemia Protocol Enoxaparin Sodium 40 mg 02/08/25 09:00 02/15/25 09:25 Enoxaparin 40 Mg/0.4 Ml Syringe SUB-Q 40 mg DAILY KANDIS Administration Fluticasone Propionate 1 spray 02/07/25 11:00 02/14/25 21:24 Fluticasone Propionate 0.05% Na Spr 16 Gm Btl (*Bkc) NASAL 1 spray Q12HR KANDIS Administration Furosemide 40 mg 02/16/25 09:00 Furosemide Inj 40 Mg/4 Ml Vial IV PUSH DAILY KANDIS Glucagon 1 mg 01/25/25 20:46 Glucagon For Inj 1 Mg Vial IM PRN PRN Hypoglycemia Protocol Glucose 15 gm 01/25/25 20:46 Glucose Oral Gel 15 Gm Of Glucse In 37.5 Gm Tube PO PRN PRN Hypoglycemia Protocol Hydralazine HCl 10 mg 02/06/25 09:58 02/08/25 16:30 Hydralazine Hcl 20 Mg/Ml Vial IV PUSH 10 mg Q4H PRN Administration Blood Pressure - High Dextrose 1,000 mls @ 100 mls/hr 01/25/25 20:46 Dextrose 5% 1,000 Ml IVPB PRN PRN Hypoglycemia Protocol Meropenem 1 gm in 100 mls @ 200 mls/hr 01/29/25 13:00 02/15/25 06:48 IVPB Infused Q8HR KANDIS Infusion Albumin Human 200 mls @ 60 mls/hr 02/15/25 09:01 Albutein IVPB 02/15/25 12:20 ONCE ONE Insulin Aspart 4 - 8 units 02/12/25 08:00 02/15/25 08:00 Insulin Aspart (*Bkc) 100 Units/Ml SUB-Q Not Given TIDWM [facility] Protocol Insulin Aspart 2 - 4 units 02/11/25 22:45 02/14/25 22:21 Insulin Aspart (*Bkc) 100 Units/Ml SUB-Q Not Given HS [facility] Protocol Insulin Glargine 10 units 01/29/25 21:00 02/14/25 21:19 Insulin Glargine (*Bkc) 100 Units/Ml SUB-Q 10 units HS KANDIS Administration Insulin Glargine 20 units 02/06/25 07:55 02/07/25 08:43 Insulin Glargine (*Bkc) 100 Units/Ml SUB-Q 20 units DAILY KANDIS Administration Ipratropium [place] 0.5 mg 02/08/25 14:00 02/15/25 09:14 Ipratropium Br 0.02% Inh Soln 0.5 Mg/2.5 Ml Vial INHALATION Not Given Q6HRT [facility] Lactobacillus Acidophilus 1 pkt 02/03/25 09:00 02/07/25 12:15 Acidophilus Packet 1 Pkt Packet PO Not Given QID KANDIS Levalbuterol HCl 0.63 mg 02/08/25 14:00 02/15/25 09:14 Levalbuterol Neb 1.25 Mg/3 Ml INHALATION Not Given Q6HRT [facility] Metoprolol Tartrate 5 mg 02/09/25 23:21 02/09/25 23:57 Metoprolol Tartrate Inj 5 Mg/5 Ml Vial IV PUSH 5 mg Q4H PRN Administration afib >130 Metoprolol Tartrate 50 mg 02/12/25 09:00 02/15/25 09:26 Metoprolol Tartrate 50 Mg Tab PO 50 mg Q12HR KANDIS Administration Metronidazole 500 mg 02/11/25 12:00 02/15/25 05:48 Metronidazole 500 Mg Tablet PO 500 mg Q6HR KANDIS Administration Ondansetron HCl 4 mg 01/25/25 20:51 02/06/25 22:13 Ondansetron Inj 4 Mg/2 Ml Vial IV PUSH 4 mg Q6H PRN Administration Nausea And Vomiting Pantoprazole Sodium 40 mg 02/08/25 09:00 02/15/25 09:26 Pantoprazole Sodium Iv 40 Mg Vial IV PUSH 40 mg Q12HR KANDIS Administration Tamsulosin HCl 0.4 mg 02/12/25 09:00 02/15/25 09:26 Tamsulosin Hcl 0.4 Mg Capsule PO 0.4 mg QAM KANDIS Administration Radiology Results: ITS Impressions Pelvis CT 01/26/25 14:17 IMPRESSION: 1. No significant change in a bilobed gas and fluid containing abscess in the deep pelvis. Patient canceled the planned percutaneous abscess drainage catheter placement due to discomfort despite attempts at repositioning. Abdomen X-Ray 02/07/25 08:16 IMPRESSION: NO ACUTE ABDOMINAL FINDINGS. Chest X-Ray 02/08/25 06:49 Impression: Moderate bilateral pleural effusions with bibasilar pulmonary edema/atelectasis. Modified Barium Swallow 02/11/25 09:37 IMPRESSION: Pharyngeal dysphagia with laryngeal penetration and aspiration with thin liquids. Please correlate with speech pathologist findings and specific feeding recommendations. Catheter Placement CT 02/12/25 14:51 IMPRESSION: 1. Successful CT-guided pelvic abscess drainage catheter placement. 2. 10 mL fluid was sent for aerobic and anaerobic cultures. 3. The catheter will be managed by Dr. Goins. Abdomen/Pelvis CT 02/15/25 08:26 IMPRESSION: 1. Significant decrease in size of a presacral abscess likely related to prior sigmoid diverticulitis post right transgluteal percutaneous abscess drainage catheter placement. 2. Small bilateral pleural effusions with dependent compressive atelectasis in both lungs. 3. Cholelithiasis. 4. Bilateral nonobstructing nephrolithiasis. Labs Labs: Laboratory Results - last 24 hr 02/14/25 02/14/25 02/14/25 11:19 16:56 18:53 POC Capillary Glucose 213 H 148 H C. difficile (PCR) Negative 02/14/25 02/15/25 19:58 07:22 POC Capillary Glucose 131 H 120 H C. difficile (PCR) Quality VTE Prophylaxis VTE prophylaxis: pharmacologic ordered
[2025-02-15] MEDS: FLUTICASONE PROPIONATE 0.05% NA SPR 16 GM BTL (*BKC) 1 SPRAY NASAL ×2 (11:22→21:35)
[2025-02-15] MEDS: ALBUMIN HUMAN 25% 25 GM/100 ML 200 ML IVPB (11:24)
[2025-02-15] MEDS: FUROSEMIDE INJ 40 MG/4 ML VIAL IV PUSH (11:30)
[2025-02-15 11:34] LABS: Glucose Point of Care 143 mg/dl (65-105)
[2025-02-15 11:56] LABS: Alveolar/Arterial O2 Gradient 23.7 mmHg; Base Excess ABG 6.5 mEq/l (+/-2.0); Fractional Inspired Oxygen 24 %; HCO3 ABG 31.4 mEq/l (22.0-26.0); Oxygen Content ABG 13.6 %vol (16.0-22.0); Oxygen Saturation ABG 97.2 % (95.0-100.0); Oxyhemoglobin 96.1 % THb (90.0-100.0); PCO2 ABG 47.2 mmHg (35.0-45.0); PO2 ABG 91.3 mmHg (80.0-100.0); pH ABG 7.441 (7.350-7.450)
[2025-02-15 11:58] LABS: Modified Allen's Test Pass; Site Drawn LEFT RADIAL
[2025-02-15 11:59] LABS: Device NASAL CANNULA
[2025-02-15] MEDS: AMOXICILLIN/CLAVULANATE K 875-125 MG TAB 1 TABLET PO ×2 (12:59→21:34)
[2025-02-15] MEDS: IPRATROPIUM BR 0.02% INH SOLN 0.5 MG/2.5 ML VIAL INHALATION (14:35)
[2025-02-15] MEDS: LEVALBUTEROL NEB 1.25 MG/3 ML 0.63 MG INHALATION (14:35)
--- NOTE | 2025-02-15 15:15 | PCSTNOTE ---
Please refer to the Modified Barium Swallow Evaluation in the EMR. The patient was seen for a third MBS due to showing improvement with therapy and wanting her diet advanced to regular liquids. The pt was seated for a lateral view and was presented with 5 ml thin liquids via a spoon, pudding consistency barium via a spoon, crumbled (due to pt not having her dentures for test) cracker coated with barium pudding via a spoon, and uncontrolled trials of thin liquids via a cup and a straw. The oral stages were WFL; during the pharyngeal stage, reduced tongue base retraction was exhibited as evidenced by laryngeal penetration during the swallow and reduced laryngeal elevation as evidenced by laryngeal penetration and pyriform sinus residue (with solids only). Using the chin tuck prevented the laryngeal penetration from reoccurring and dry & effortful swallows cleared the residual. No aspiration occurred but risk is present if the chin tuck and extra dry swallows are not used. Impressions: mild/moderate dysphagia due to risk of aspiration of thin liquids without the chin tuck Recommendations: level 7 diet easy to chew and level 1 thin liquids with 1:1 supervision to enforce the chin tuck and extra dry swallows. ST spoke with ALICE Mercado and provider Dr Carrera re the results.
[2025-02-15 17:31] LABS: Glucose Point of Care 141 mg/dl (65-105)
[2025-02-15 19:14] LABS: Glucose Point of Care 160 mg/dl (65-105)
[2025-02-15] MEDS: INSULIN GLARGINE (*BKC) 100 UNITS/ML 10 UNITS SUB-Q (21:34)
[2025-02-16] VITALS (9 sets, daily range): BP systolic 130–139; BP diastolic 63–74; PULSE 50–67; RESP 16–20; TEMP 36.1–36.6; O2SAT 95–98
[2025-02-16] MEDS: AMOXICILLIN/CLAVULANATE K 875-125 MG TAB 1 TABLET PO ×3 (05:21→22:47)
[2025-02-16] MEDS: metroNIDAZOLE 500 MG TABLET PO ×4 (05:21→22:35)
[2025-02-16 06:12] LABS: Lactic Acid Reflex 1.2 mmol/L (0.7-2.0)
[2025-02-16 06:16] LABS: Alanine Aminotransferase 13 U/L (6-35); Albumin Level 2.7 g/dL (3.5-5.1); Alkaline Phosphatase 95 U/L (38-126); Anion Gap 5 mmol/L (4-12); Aspartate Amino Transferase 22 U/L (14-36); Bilirubin,Total 1.4 mg/dL (0.2-1.3); Blood Urea Nitrogen 28 mg/dL (7-17); Calcium 8.3 mg/dL (8.4-10.2); Carbon Dioxide 34 mmol/L (22-30); Chloride 108 mmol/L (98-107); Estimated CRCL calculation 96 ml/min; Estimated Glomerular Filt Rate > 60; Glucose 96 mg/dL (65-110); Magnesium 2.2 mg/dL (1.6-2.3); Potassium 2.9 mmol/L (3.4-5.0); Sodium 147 mmol/L (137-145)
[2025-02-16 06:52] LABS: Basophils Percent Auto 0.2 % (0.2-1.2); Eosinophils Absolute Auto 0.2 K/mm3 (0-0.3); Eosinophils Percent Auto 2.7 % (0-4.4); Hematocrit 28.6 % (37.0-47.0); Hemoglobin 8.2 g/dL (12.0-15.0); Immature Granulocyte Absolute 0.04 K/mm3 (0.00-0.031); Immature Granulocyte Percent A 0.5 % (0-0.5); Immature Platelet Fraction Pct 6.3 % (0.9-11.2); Lymphocytes Absolute Auto 0.56 K/mm3 (0.9-3.2); Lymphocytes Percent Auto 6.4 % (18.3-44.2); Mean Corpuscular HGB Conc 28.7 g/dl (32-36); Mean Corpuscular Hemoglobin 25.4 pg (26-34); Mean Corpuscular Volume 88.5 fl (80-100); Mean Platelet Volume 11.8 fl (7.4-10.4); Monocytes Absolute Auto 0.5 K/mm3 (0.1-0.6); Monocytes Percent Auto 5.2 % (2.6-8.5); Neutrophils Absolute Auto 7.5 K/mm3 (1.3-6.7); Platelet Count Result 255 k/mm3 (150-375); Red Blood Count 3.23 M/mm3 (4.2-5.4); Red Cell Distribution Width 21.6 % (11.5-14.5); White Blood Count 8.8 K/mm3 (4.5-10.0)
[2025-02-16 06:59] LABS: Hypochromasia 1+; Platelet Estimate Adequate (Adequate); Schistocytes None Seen
[2025-02-16 08:19] LABS: Glucose Point of Care 113 mg/dl (65-105)
[2025-02-16] MEDS: ENOXAPARIN 40 MG/0.4 ML SYRINGE SUB-Q (09:54)
[2025-02-16] MEDS: PANTOPRAZOLE SODIUM IV 40 MG VIAL IV PUSH ×2 (09:55→22:27)
[2025-02-16] MEDS: METOPROLOL TARTRATE 50 MG TAB PO ×2 (09:55→22:26)
[2025-02-16] MEDS: FLUTICASONE PROPIONATE 0.05% NA SPR 16 GM BTL (*BKC) 1 SPRAY NASAL ×2 (09:55→22:48)
[2025-02-16] MEDS: TAMSULOSIN HCL 0.4 MG CAPSULE PO (09:55)
[2025-02-16] MEDS: FUROSEMIDE INJ 40 MG/4 ML VIAL IV PUSH (09:55)
--- NOTE | 2025-02-16 10:59 | PCNFU ---
Nutrition Follow-Up Complete: Inadequate energy intake related to swallowing difficulty as evidenced by NPO - Pt no longer NPO Goal:Diet textures appropriate for patient needs Pt meeting goal. New goal of PO intake 50% or greater Pt current nutrition is Diabetic level 7 easy to chew, thin liquids. Nutrition recommendation: Add Glucerna shakes TID Last recorded weight is 114.8 kg. Bowel Motility:+ BM 02/16 Labs Reviewed: Hgb:8.2, HCT:28.6, Alb:2.7, NA:147, K:2.9, BUN:28, Cr:0.56 Meds Noted: insulin, protonix Skin: WNL Additional Notes: pt now on a diabetic diet, easy to chew level 7. Speech recommendations to change liquids to thin following new evaluation on 02/15. Agree with orders. Overall intake remains poor at 10-20%. Recommend glucerna shakes TID for increased calorie and protein intake (220kcals, 10g protein). Monitor swallowing ability, intake, wt, labs. Follow up in 3 days.
[2025-02-16 11:38] LABS: Glucose Point of Care 124 mg/dl (65-105)
--- NOTE | 2025-02-16 14:45 | PM.IMPN ---
Progress Note: A&P Assessment and Plan (1) Cardiac arrest: Code(s): I46.9 - Cardiac arrest, cause unspecified Status: Acute Assessment and Plan: Resolved Patient had a cardiac arrest after placement of a percutaneous drain in the pelvic abscess. Could be related to vasovagal, translocation of bacteria, hypoxia as patient was laying flat, hypovolemia, acidosis -successful ROSC x2, intubated in the CT scan suite by ER physician -patient did follow commands post code a continue, so not a candidate for targeted temperature management -will continue to treat underlying cause (2) Septic shock: Code(s): A41.9 - Sepsis, unspecified organism; R65.21 - Severe sepsis with septic shock Status: Acute Assessment and Plan: 02/01:In the ICU patient dropped her blood pressures -patient has been adequately fluid-resuscitated with IV fluids and albumin -01/25: Blood cultures negative x2 -02/02: repeat blood cultures -growing E coli (pansensitive) and Clostridium ramosum -02/02: Abscess fluid culture growing E coli and Bacteroides fragilis 02/03: WBC count up to 64, could be related to septic shock, infection, leukomoid reaction, steroids. Will continue to monitor -WBC count is trending down, patient is afebrile, continue to monitor --continue meropenem, Flagyl 02/04: Discontinue vancomycin -continue doxycycline for 5 days - weaning stress dose steroid -off all pressors (patient was on Levophed, Bobo-Synephrine and vasopressin) -WBC count trending down 02/04: Repeat blood cultures growing Clostridium ramosum, bacteroids fragilis 02/09: Repeat blood culture shows no growth 02/11:Removal of pelvic abscess drain by surgery 02/12: Patient successfully underwent transgluteal percutaneous abscess drain placement with IR. 02/15 abscess culture from 02/12 positive for E coli continue meropenem (3) Acute respiratory failure: Qualifiers: Respiratory failure complication: hypoxia Qualified Code(s): J96.01 - Acute respiratory failure with hypoxia Code(s): J96.00 - Acute respiratory failure, unspecified whether with hypoxia or hypercapnia Status: Acute Assessment and Plan: Acute respiratory failure likely related to cardiac arrest possible from septic shock, infection, hypovolemia, translocation of bacteria, acidosis, hypoxia -patient intubated in the CT scan suite by ER physician -02/06: Extubated Accidentally coughed upper ETT was on pressure support ventilation 10/5 for approximately 3 hours and CXR showed bilateral pulm edema with pleural effusion Started on Lasix on 40mg bid and monitor (4) Intra-abdominal abscess: Code(s): K65.1 - Peritoneal abscess Status: Acute Assessment and Plan: Intra-abdominal abscess, status post percutaneous IR drain placement on 02/01/2025 and removal on 02/10/2025.Underwent 02/12 transgluteal percutaneous abscess drain placement by IR -draining purulent material, cultures as above -surgery is following the patient -Continue Meropenem and Metronidazole -culture growing pansensitive E coli; and bacteroides fragilis pending sensitivity (5) Diabetes 1.5, managed as type 2: Code(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 hydralazine IV -once patient starts taking p.o. with will add her home antihypertensive (7) Anemia: Qualifiers: Anemia type: other cause Other causes of anemia: chronic disease, other Qualified Code(s): D63.8 - Anemia in other chronic diseases classified elsewhere Code(s): D64.9 - Anemia, unspecified Status: Acute Assessment and Plan: 02/03: Hemoglobin dropped to 6.3. -will transfuse 1 unit of packed RBC -hemoglobin stable -02/05: hemoglobin dropped to 7.0 -status post 1 unit of packed RBC -iron panel reflective of iron deficiency anemia and/or anemia of chronic disease -folic acid and vitamin B12 levels within normal limits -stool occult was positive -appreciate GI evaluation and no recommendations for endoscopy as patient does not have any overt bleeding -hemoglobin is stable, 9.6 continue to monitor (8) Hypernatremia: Code(s): E87.0 - Hyperosmolality and hypernatremia Status: Acute Assessment and Plan: Started Albumin infusion Na 147 today continue diuresis and monitor (9) Atrial fibrillation: Code(s): I48.91 - Unspecified atrial fibrillation Status: Acute Assessment and Plan: Started Metoprolol PO q 6 hrs [id number] score 3(Age,sex,DM) New onset. Order TSH ECHO:Left ventricular systolic function is normal, estimated at 55-60% Will defer anticoagulation until discussion with Surgery and Cardiology Cardiology do not want to start anticoagulation due to anemia Plan DVT prophylaxis on Sq lovenox Patient continues to need continued hospitalization due to hypernatremia and Hypokalemia. Subjective Date/time seen: 02/16/25 14:45 Interval history: Comfortable at bedside Abscess culture positive for E coli Blood culture finally negative on 02/08/25 Review of Systems Review of Systems: All systems reviewed & are unremarkable except as noted in HPI and below ROS unobtainable: Yes unobtainable due to endotracheal tube, unobtainable due to medical condition and unobtainable due to mental status Exam Narrative: General: Obese female, currently in no acute distress HEENT:? Pupils equal and reactive, sclera is clear, Airvo in place Neck:? Supple Respiratory:? Coarse breath sounds bilaterally, decreased at bases, no wheezing, adequate air entry Cardiac:? S1-S2 normal, regular rate and rhythm Abdomen:? Soft, nontender, obese, hypoactive bowel sounds, left lower quadrant drain in place with purulent drainage Extremities:? Bilateral upper and lower extremity pitting edema Neuro:? Of Precedex. More awake, alert, able to answer questions, follows simple commands, Skin:? No skin lesions noted Psych:? Depressed affect Const: General: comfortable and no acute distress Other: , female, elderly, disheveled. Nontoxic appearance. HENMT: Face/Nose/Sinus: Normal nares present Mouth: Yes moist mucous membranes Eyes: General: appearance normal, both eyes and all related structures Sclera: sclerae normal Pupils: Equal, round and reactive pupils present EOM: EOMs intact bilaterally Resp: Effort & Inspection: normal respiratory effort Auscultation: clear to auscultation bilaterally Cardio: Rate: regular rate Rhythm: regular rhythm Other: S1-S2 present without murmur, rub, ectopy GI: Other: tender in the lower quadrants. hyperactive bowel sounds in the upper quadrants, normoactive in the lower. Nondistended, soft. Skin: General skin exam: normal color and no rashes or lesions noted Wounds: no wounds Neuro: Cranial nerves: Yes Equal, round and reactive pupils present Speech: normal speech Motor exam (neuro): 5/5 motor strength present throughout Sensory Exam: normal sensation Other: A&O x4 Extrem: General: normal to inspection Psych: Mental Status: mental status grossly normal Affect: normal affect Other: Malodorous, disheveled. Fair insight and judgment, pleasant. Objective Data Vital Signs Vital Signs: Vital Signs - 24 hr 02/15/25 16:00 02/15/25 19:15 02/15/25 20:00 Temperature 98.5 F Pulse Rate 64 68 Respiratory Rate 18 Blood Pressure 136/62 Pulse Oximetry 97 97 Oxygen Delivery Nasal Cannula Oxygen Flow Rate 1 02/15/25 20:00 02/15/25 20:18 02/16/25 00:00 Temperature Pulse Rate 67 62 50 L Respiratory Rate 20 Blood Pressure Pulse Oximetry 97 Oxygen Delivery Oxygen Flow Rate 02/16/25 04:00 02/16/25 06:00 02/16/25 14:00 Temperature 97.0 F L Pulse Rate 54 L 50 L Respiratory Rate 16 18 Blood Pressure 139/74 Pulse Oximetry 95 Oxygen Delivery Oxygen Flow Rate 02/16/25 14:34 Temperature Pulse Rate Respiratory Rate Blood Pressure Pulse Oximetry 98 Oxygen Delivery Nasal Cannula Oxygen Flow Rate 1 Intake/Output Intake/Output: Intake & Output 02/13/25 02/14/25 02/15/25 02/16/25 23:59 23:59 23:59 23:59 Intake Total 1665 1860 950 300 Output Total 1050 1200 1880 1115 Balance 611 346 [phone] Meds/Results Medications: Active Medications Generic Name Dose Route Start Last Admin Trade Name Freq PRN Reason Stop Dose Admin Acetaminophen 650 mg 01/25/25 20:51 02/11/25 20:36 Acetaminophen 325 Mg Tablet PO 650 mg Q4H PRN Administration Headache Amoxicillin/Clavulanate Potassium 1 tablet 02/15/25 14:00 02/16/25 13:28 Amoxicillin/Clavulanate K 875-125 Mg Tab PO 02/28/25 23:59 1 tablet Q8HR KANDIS Administration Dextrose 12.5 gm 01/25/25 20:46 01/26/25 11:40 Dextrose 50% 25 Gm/50 Ml Syringe IV PUSH 12.5 gm PRN PRN Administration Hypoglycemia Protocol Enoxaparin Sodium 40 mg 02/08/25 09:00 02/16/25 09:54 Enoxaparin 40 Mg/0.4 Ml Syringe SUB-Q 40 mg DAILY KANDIS Administration Fluticasone Propionate 1 spray 02/07/25 11:00 02/16/25 09:55 Fluticasone Propionate 0.05% Na Spr 16 Gm Btl (*Bkc) NASAL 1 spray Q12HR KANDIS Administration Furosemide 40 mg 02/15/25 11:10 02/16/25 09:55 Furosemide Inj 40 Mg/4 Ml Vial IV PUSH 40 mg DAILY KANDIS Administration Glucagon 1 mg 01/25/25 20:46 Glucagon For Inj 1 Mg Vial IM PRN PRN Hypoglycemia Protocol Glucose 15 gm 01/25/25 20:46 Glucose Oral Gel 15 Gm Of Glucse In 37.5 Gm Tube PO PRN PRN Hypoglycemia Protocol Hydralazine HCl 10 mg 02/06/25 09:58 02/08/25 16:30 Hydralazine Hcl 20 Mg/Ml Vial IV PUSH 10 mg Q4H PRN Administration Blood Pressure - High Dextrose 1,000 mls @ 100 mls/hr 01/25/25 20:46 Dextrose 5% 1,000 Ml IVPB PRN PRN Hypoglycemia Protocol Insulin Aspart 4 - 8 units 02/12/25 08:00 02/16/25 11:55 Insulin Aspart (*Bkc) 100 Units/Ml SUB-Q Not Given TIDWM [facility] Protocol Insulin Aspart 2 - 4 units 02/11/25 22:45 02/15/25 21:35 Insulin Aspart (*Bkc) 100 Units/Ml SUB-Q Not Given HS [facility] Protocol Insulin Glargine 10 units 01/29/25 21:00 02/15/25 21:34 Insulin Glargine (*Bkc) 100 Units/Ml SUB-Q 10 units HS KANDIS Administration Insulin Glargine 20 units 02/06/25 07:55 02/07/25 08:43 Insulin Glargine (*Bkc) 100 Units/Ml SUB-Q 20 units DAILY KANDIS Administration Ipratropium [place] 0.5 mg 02/15/25 16:33 Ipratropium Br 0.02% Inh Soln 0.5 Mg/2.5 Ml Vial INHALATION Q6HRT PRN Wheezing Lactobacillus Acidophilus 1 pkt 02/03/25 09:00 02/07/25 12:15 Acidophilus Packet 1 Pkt Packet PO Not Given QID KANDIS Levalbuterol HCl 0.63 mg 02/15/25 16:34 Levalbuterol Neb 1.25 Mg/3 Ml INHALATION Q6HRT PRN Wheezing Metoprolol Tartrate 5 mg 02/09/25 23:21 02/09/25 23:57 Metoprolol Tartrate Inj 5 Mg/5 Ml Vial IV PUSH 5 mg Q4H PRN Administration afib >130 Metoprolol Tartrate 50 mg 02/12/25 09:00 02/16/25 09:55 Metoprolol Tartrate 50 Mg Tab PO 50 mg Q12HR KANDIS Administration Metronidazole 500 mg 02/11/25 12:00 02/16/25 12:45 Metronidazole 500 Mg Tablet PO 02/28/25 23:59 500 mg Q6HR KANDIS Administration Ondansetron HCl 4 mg 01/25/25 20:51 02/06/25 22:13 Ondansetron Inj 4 Mg/2 Ml Vial IV PUSH 4 mg Q6H PRN Administration Nausea And Vomiting Pantoprazole Sodium 40 mg 02/08/25 09:00 02/16/25 09:55 Pantoprazole Sodium Iv 40 Mg Vial IV PUSH 40 mg Q12HR KANDIS Administration Tamsulosin HCl 0.4 mg 02/12/25 09:00 02/16/25 09:55 Tamsulosin Hcl 0.4 Mg Capsule PO 0.4 mg QAM KANDIS Administration Radiology Results: ITS Impressions Pelvis CT 01/26/25 14:17 IMPRESSION: 1. No significant change in a bilobed gas and fluid containing abscess in the deep pelvis. Patient canceled the planned percutaneous abscess drainage catheter placement due to discomfort despite attempts at repositioning. Abdomen X-Ray 02/07/25 08:16 IMPRESSION: NO ACUTE ABDOMINAL FINDINGS. Catheter Placement CT 02/12/25 14:51 IMPRESSION: 1. Successful CT-guided pelvic abscess drainage catheter placement. 2. 10 mL fluid was sent for aerobic and anaerobic cultures. 3. The catheter will be managed by Dr. Goins. Abdomen/Pelvis CT 02/15/25 08:26 IMPRESSION: 1. Significant decrease in size of a presacral abscess likely related to prior sigmoid diverticulitis post right transgluteal percutaneous abscess drainage catheter placement. 2. Small bilateral pleural effusions with dependent compressive atelectasis in both lungs. 3. Cholelithiasis. 4. Bilateral nonobstructing nephrolithiasis. Modified Barium Swallow 02/15/25 11:41 IMPRESSION: Pharyngeal dysphagia with laryngeal penetration without aspiration. Please correlate with speech pathologist findings and specific feeding recommendations. Chest X-Ray 02/15/25 12:09 IMPRESSION: 1. Small bilateral pleural effusions with associated bibasilar atelectasis and/or pneumonia. Labs Labs: Laboratory Results - last 24 hr 02/15/25 02/15/25 02/16/25 16:31 19:10 05:05 WBC 8.8 RBC 3.23 L Hgb 8.2 L Hct 28.6 L MCV 88.5 MCH 25.4 L MCHC 28.7 L RDW 21.6 H Plt Count 255 MPV 11.8 H Immature Gran % (Auto) 0.5 Neut % (Auto) 85.0 H Lymph % (Auto) 6.4 L [place] % (Auto) 5.2 Eos % (Auto) 2.7 Baso % (Auto) 0.2 Lymph # (Auto) 0.56 L [place] # (Auto) 0.5 Eos # (Auto) 0.2 Baso # (Auto) 0.0 Abs Immat Gran (auto) 0.04 H Absolute Neuts (auto) 7.5 H Absolute Nucleated RBC 0.000 Band Neutrophils % Not Reportable Nucleated RBC % 0.0 Platelet Estimate Adequate % Immature Plt Fraction 6.3 Hypochromasia 1+ Schistocytes None seen Sodium 147 H Potassium 2.9 L Chloride 108 H Carbon Dioxide 34 H Anion Gap 5 BUN 28 H Creatinine 0.56 L Estim Creat Clear Calc 96 Estimated GFR > 60 Glucose 96 POC Capillary Glucose 141 H 160 H Lactic Acid 1.2 Calcium 8.3 L Magnesium 2.2 Total Bilirubin 1.4 H AST 22 ALT 13 Alkaline Phosphatase 95 Total Protein 6.0 L Albumin 2.7 L 02/16/25 02/16/25 07:23 11:31 WBC RBC Hgb Hct MCV MCH MCHC RDW Plt Count MPV Immature Gran % (Auto) Neut % (Auto) Lymph % (Auto) [place] % (Auto) Eos % (Auto) Baso % (Auto) Lymph # (Auto) [place] # (Auto) Eos # (Auto) Baso # (Auto) Abs Immat Gran (auto) Absolute Neuts (auto) Absolute Nucleated RBC Band Neutrophils % Nucleated RBC % Platelet Estimate % Immature Plt Fraction Hypochromasia Schistocytes Sodium Potassium Chloride Carbon Dioxide Anion Gap BUN Creatinine Estim Creat Clear Calc Estimated GFR Glucose POC Capillary Glucose 113 H 124 H Lactic Acid Calcium Magnesium Total Bilirubin AST ALT Alkaline Phosphatase Total Protein Albumin Quality VTE Prophylaxis VTE prophylaxis: pharmacologic ordered
--- NOTE | 2025-02-16 15:34 | PM.PNGS ---
Progress Note: A&P Assessment and Plan (1) Intra-abdominal abscess: Code(s): K65.1 - Peritoneal abscess Status: Acute Assessment and Plan: Repeat CT showed still a small 3 x 2 cm abscess cavity with possible residual fluid vs inflammation. Perc drain flushed today. Will monitor output over the next 1-2 days and may remove it if not much out. Continue antibiotics. Plan I have discussed the patient's case and plan of care with Dr. Goins Subjective Subjective Date/Time Seen: 02/16/25 15:34 Patient reports: no new complaints, flatus, bowel movement and afebrile Interval history: No acute changes overnight. Minimal output from percutaneous drain. 15 cc out in the last 24 hours. Exam Const: General: comfortable and no acute distress GI: Inspection: non-distended, Pannus present and obesity GI Palp: Yes Soft to palpation, No Tenderness to palpation present (GI), No Guarding due to palpation present (GI) and No Rebound tenderness present Auscultation: normal bowel sounds Other: Transgluteal percutaneous drain with no output in the drain, I then flushed with 10 cc normal saline and got back about 15 cc of rivas/pink purulent drainage. Objective Data Vital Signs Vital Signs: Vital Signs - 24 hr 02/15/25 16:00 02/15/25 19:15 02/15/25 20:00 Temperature 98.5 F Pulse Rate 64 68 Respiratory Rate 18 Blood Pressure 136/62 Pulse Oximetry 97 97 Oxygen Delivery Nasal Cannula Oxygen Flow Rate 1 02/15/25 20:00 02/15/25 20:18 02/16/25 00:00 Temperature Pulse Rate 67 62 50 L Respiratory Rate 20 Blood Pressure Pulse Oximetry 97 Oxygen Delivery Oxygen Flow Rate 02/16/25 04:00 02/16/25 06:00 02/16/25 14:00 Temperature 97.0 F L Pulse Rate 54 L 50 L Respiratory Rate 16 18 Blood Pressure 139/74 Pulse Oximetry 95 Oxygen Delivery Oxygen Flow Rate 02/16/25 14:34 Temperature Pulse Rate Respiratory Rate Blood Pressure Pulse Oximetry 98 Oxygen Delivery Nasal Cannula Oxygen Flow Rate 1 Intake/Output Intake/Output: Intake & Output 02/13/25 02/14/25 02/15/25 02/16/25 23:59 23:59 23:59 23:59 Intake Total 1665 1860 950 300 Output Total 1050 1200 1880 1115 Balance 615 328 -286 -866 Meds/Results Medications: Active Medications Generic Name Dose Route Start Last Admin Trade Name Freq PRN Reason Stop Dose Admin Acetaminophen 650 mg 01/25/25 20:51 02/11/25 20:36 Acetaminophen 325 Mg Tablet PO 650 mg Q4H PRN Administration Headache Amoxicillin/Clavulanate Potassium 1 tablet 02/15/25 14:00 02/16/25 13:28 Amoxicillin/Clavulanate K 875-125 Mg Tab PO 02/28/25 23:59 1 tablet Q8HR KANDIS Administration Dextrose 12.5 gm 01/25/25 20:46 01/26/25 11:40 Dextrose 50% 25 Gm/50 Ml Syringe IV PUSH 12.5 gm PRN PRN Administration Hypoglycemia Protocol Enoxaparin Sodium 40 mg 02/08/25 09:00 02/16/25 09:54 Enoxaparin 40 Mg/0.4 Ml Syringe SUB-Q 40 mg DAILY KANDIS Administration Fluticasone Propionate 1 spray 02/07/25 11:00 02/16/25 09:55 Fluticasone Propionate 0.05% Na Spr 16 Gm Btl (*Bkc) NASAL 1 spray Q12HR KANDIS Administration Furosemide 40 mg 02/15/25 11:10 02/16/25 09:55 Furosemide Inj 40 Mg/4 Ml Vial IV PUSH 40 mg DAILY KANDIS Administration Glucagon 1 mg 01/25/25 20:46 Glucagon For Inj 1 Mg Vial IM PRN PRN Hypoglycemia Protocol Glucose 15 gm 01/25/25 20:46 Glucose Oral Gel 15 Gm Of Glucse In 37.5 Gm Tube PO PRN PRN Hypoglycemia Protocol Hydralazine HCl 10 mg 02/06/25 09:58 02/08/25 16:30 Hydralazine Hcl 20 Mg/Ml Vial IV PUSH 10 mg Q4H PRN Administration Blood Pressure - High Dextrose 1,000 mls @ 100 mls/hr 01/25/25 20:46 Dextrose 5% 1,000 Ml IVPB PRN PRN Hypoglycemia Protocol Insulin Aspart 4 - 8 units 02/12/25 08:00 02/16/25 11:55 Insulin Aspart (*Bkc) 100 Units/Ml SUB-Q Not Given TIDWM [facility] Protocol Insulin Aspart 2 - 4 units 02/11/25 22:45 02/15/25 21:35 Insulin Aspart (*Bkc) 100 Units/Ml SUB-Q Not Given HS [facility] OF [facility] Protocol Insulin Glargine 10 units 01/29/25 21:00 02/15/25 21:34 Insulin Glargine (*Bkc) 100 Units/Ml SUB-Q 10 units HS KANDIS Administration Insulin Glargine 20 units 02/06/25 07:55 02/07/25 08:43 Insulin Glargine (*Bkc) 100 Units/Ml SUB-Q 20 units DAILY KANDIS Administration Ipratropium [place] 0.5 mg 02/15/25 16:33 Ipratropium Br 0.02% Inh Soln 0.5 Mg/2.5 Ml Vial INHALATION Q6HRT PRN Wheezing Lactobacillus Acidophilus 1 pkt 02/03/25 09:00 02/07/25 12:15 Acidophilus Packet 1 Pkt Packet PO Not Given QID KANDIS Levalbuterol HCl 0.63 mg 02/15/25 16:34 Levalbuterol Neb 1.25 Mg/3 Ml INHALATION Q6HRT PRN Wheezing Metoprolol Tartrate 5 mg 02/09/25 23:21 02/09/25 23:57 Metoprolol Tartrate Inj 5 Mg/5 Ml Vial IV PUSH 5 mg Q4H PRN Administration afib >130 Metoprolol Tartrate 50 mg 02/12/25 09:00 02/16/25 09:55 Metoprolol Tartrate 50 Mg Tab PO 50 mg Q12HR KANDIS Administration Metronidazole 500 mg 02/11/25 12:00 02/16/25 12:45 Metronidazole 500 Mg Tablet PO 02/28/25 23:59 500 mg Q6HR KANDIS Administration Ondansetron HCl 4 mg 01/25/25 20:51 02/06/25 22:13 Ondansetron Inj 4 Mg/2 Ml Vial IV PUSH 4 mg Q6H PRN Administration Nausea And Vomiting Pantoprazole Sodium 40 mg 02/08/25 09:00 02/16/25 09:55 Pantoprazole Sodium Iv 40 Mg Vial IV PUSH 40 mg Q12HR KANDIS Administration Tamsulosin HCl 0.4 mg 02/12/25 09:00 02/16/25 09:55 Tamsulosin Hcl 0.4 Mg Capsule PO 0.4 mg QAM KANDIS Administration Radiology Results: ITS Impressions Pelvis CT 01/26/25 14:17 IMPRESSION: 1. No significant change in a bilobed gas and fluid containing abscess in the deep pelvis. Patient canceled the planned percutaneous abscess drainage catheter placement due to discomfort despite attempts at repositioning. Abdomen X-Ray 02/07/25 08:16 IMPRESSION: NO ACUTE ABDOMINAL FINDINGS. Catheter Placement CT 02/12/25 14:51 IMPRESSION: 1. Successful CT-guided pelvic abscess drainage catheter placement. 2. 10 mL fluid was sent for aerobic and anaerobic cultures. 3. The catheter will be managed by Dr. Goins. Abdomen/Pelvis CT 02/15/25 08:26 IMPRESSION: 1. Significant decrease in size of a presacral abscess likely related to prior sigmoid diverticulitis post right transgluteal percutaneous abscess drainage catheter placement. 2. Small bilateral pleural effusions with dependent compressive atelectasis in both lungs. 3. Cholelithiasis. 4. Bilateral nonobstructing nephrolithiasis. Modified Barium Swallow 02/15/25 11:41 IMPRESSION: Pharyngeal dysphagia with laryngeal penetration without aspiration. Please correlate with speech pathologist findings and specific feeding recommendations. Chest X-Ray 02/15/25 12:09 IMPRESSION: 1. Small bilateral pleural effusions with associated bibasilar atelectasis and/or pneumonia. Labs Labs: Laboratory Results - last 24 hr 02/15/25 02/15/25 02/16/25 16:31 19:10 05:05 WBC 8.8 RBC 3.23 L Hgb 8.2 L Hct 28.6 L MCV 88.5 MCH 25.4 L MCHC 28.7 L RDW 21.6 H Plt Count 255 MPV 11.8 H Immature Gran % (Auto) 0.5 Neut % (Auto) 85.0 H Lymph % (Auto) 6.4 L [place] % (Auto) 5.2 Eos % (Auto) 2.7 Baso % (Auto) 0.2 Lymph # (Auto) 0.56 L [place] # (Auto) 0.5 Eos # (Auto) 0.2 Baso # (Auto) 0.0 Abs Immat Gran (auto) 0.04 H Absolute Neuts (auto) 7.5 H Absolute Nucleated RBC 0.000 Band Neutrophils % Not Reportable Nucleated RBC % 0.0 Platelet Estimate Adequate % Immature Plt Fraction 6.3 Hypochromasia 1+ Schistocytes None seen Sodium 147 H Potassium 2.9 L Chloride 108 H Carbon Dioxide 34 H Anion Gap 5 BUN 28 H Creatinine 0.56 L Estim Creat Clear Calc 96 Estimated GFR > 60 Glucose 96 POC Capillary Glucose 141 H 160 H Lactic Acid 1.2 Calcium 8.3 L Magnesium 2.2 Total Bilirubin 1.4 H AST 22 ALT 13 Alkaline Phosphatase 95 Total Protein 6.0 L Albumin 2.7 L 02/16/25 02/16/25 07:23 11:31 WBC RBC Hgb Hct MCV MCH MCHC RDW Plt Count MPV Immature Gran % (Auto) Neut % (Auto) Lymph % (Auto) [place] % (Auto) Eos % (Auto) Baso % (Auto) Lymph # (Auto) [place] # (Auto) Eos # (Auto) Baso # (Auto) Abs Immat Gran (auto) Absolute Neuts (auto) Absolute Nucleated RBC Band Neutrophils % Nucleated RBC % Platelet Estimate % Immature Plt Fraction Hypochromasia Schistocytes Sodium Potassium Chloride Carbon Dioxide Anion Gap BUN Creatinine Estim Creat Clear Calc Estimated GFR Glucose POC Capillary Glucose 113 H 124 H Lactic Acid Calcium Magnesium Total Bilirubin AST ALT Alkaline Phosphatase Total Protein Albumin
[2025-02-16 16:32] LABS: Glucose Point of Care 96 mg/dl (65-105)
[2025-02-16 20:35] LABS: Glucose Point of Care 136 mg/dl (65-105)
[2025-02-16] MEDS: INSULIN GLARGINE (*BKC) 100 UNITS/ML 10 UNITS SUB-Q (22:27)
[2025-02-17] VITALS (12 sets, daily range): BP systolic 131–142; BP diastolic 66–71; PULSE 44–86; RESP 16–20; TEMP 36.2–36.5; O2SAT 95–100
[2025-02-17] MEDS: metroNIDAZOLE 500 MG TABLET PO ×4 (04:58→23:18)
[2025-02-17] MEDS: AMOXICILLIN/CLAVULANATE K 875-125 MG TAB 1 TABLET PO ×3 (04:58→22:12)
[2025-02-17 06:34] LABS: Hematocrit 31.5 % (37.0-47.0); Hemoglobin 8.9 g/dL (12.0-15.0); Mean Corpuscular HGB Conc 28.3 g/dl (32-36); Mean Corpuscular Volume 88.5 fl (80-100); Mean Platelet Volume 10.8 fl (7.4-10.4); Platelet Count Result 281 k/mm3 (150-375); Red Blood Count 3.56 M/mm3 (4.2-5.4); White Blood Count 8.7 K/mm3 (4.5-10.0)
[2025-02-17 06:48] LABS: Anion Gap 2 mmol/L (4-12); Blood Urea Nitrogen 24 mg/dL (7-17); Carbon Dioxide 38 mmol/L (22-30); Chloride 107 mmol/L (98-107); Estimated CRCL calculation 85 ml/min; Estimated Glomerular Filt Rate > 60; Glucose 117 mg/dL (65-110); Potassium 2.8 mmol/L (3.4-5.0); Sodium 147 mmol/L (137-145)
--- NOTE | 2025-02-17 07:18 | P.PNGS_ITS ---
Progress Note: A&P Assessment and Plan (1) Intra-abdominal abscess: Code(s): K65.1 - Peritoneal abscess Status: Acute Assessment and Plan: will get drain out today, will DC antibiotics as the patient has had prolonged course and leukocytosis has resolved, once drain now she is ready to be discharged to rehab from surgical standpoint, follow up with me in 2-3 weeks post discharge Subjective Subjective Date/Time Seen: 02/17/25 07:18 Interval history: feels good, no abd pain, better appetite Review of Systems Review of Systems: All systems reviewed & are unremarkable except as noted in HPI and below Exam Const: General: cooperative, comfortable and no acute distress Resp: Auscultation: diminished lung sounds Cardio: Rate: regular rate Rhythm: regular rhythm GI: Inspection: normal to inspection and non-distended GI Palp: No abdominal tenderness and Yes Soft to palpation Other: drain with minimal purulent drainage Objective Data Vital Signs Vital Signs: Vital Signs - 24 hr 02/16/25 08:00 02/16/25 14:00 02/16/25 14:34 Temperature 36.1 C L Pulse Rate 58 L 50 L Respiratory Rate 18 Blood Pressure 139/74 Pulse Oximetry 95 98 Oxygen Delivery Nasal Cannula Oxygen Flow Rate 1 02/16/25 16:00 02/16/25 20:00 02/16/25 20:00 Temperature Pulse Rate 58 L 65 Respiratory Rate Blood Pressure Pulse Oximetry 96 Oxygen Delivery Nasal Cannula Oxygen Flow Rate 1 02/16/25 21:00 02/17/25 00:00 02/17/25 04:00 Temperature 36.6 C Pulse Rate 67 54 L 47 L Respiratory Rate 20 Blood Pressure 130/63 Pulse Oximetry 96 Oxygen Delivery Oxygen Flow Rate 02/17/25 05:30 Temperature 36.4 C L Pulse Rate 54 L Respiratory Rate 18 Blood Pressure 131/66 Pulse Oximetry 100 Oxygen Delivery Oxygen Flow Rate Intake/Output Intake/Output: Intake & Output 02/14/25 02/15/25 02/16/25 02/17/25 23:59 23:59 23:59 23:59 Intake Total 1860 950 400 350 Output Total 1200 1880 2065 470 Balance 660 -930 -1665 -120 Meds/Results Medications: Active Medications Generic Name Dose Route Start Last Admin Trade Name Freq PRN Reason Stop Dose Admin Acetaminophen 650 mg 01/25/25 20:51 02/11/25 20:36 Acetaminophen 325 Mg Tablet PO 650 mg Q4H PRN Administration Headache Amoxicillin/Clavulanate Potassium 1 tablet 02/15/25 14:00 02/17/25 04:58 Amoxicillin/Clavulanate K 875-125 Mg Tab PO 02/28/25 23:59 1 tablet Q8HR KANDIS Administration Dextrose 12.5 gm 01/25/25 20:46 01/26/25 11:40 Dextrose 50% 25 Gm/50 Ml Syringe IV PUSH 12.5 gm PRN PRN Administration Hypoglycemia Protocol Enoxaparin Sodium 40 mg 02/08/25 09:00 02/16/25 09:54 Enoxaparin 40 Mg/0.4 Ml Syringe SUB-Q 40 mg DAILY KANDIS Administration Fluticasone Propionate 1 spray 02/07/25 11:00 02/16/25 22:48 Fluticasone Propionate 0.05% Na Spr 16 Gm Btl (*Bkc) NASAL 1 spray Q12HR KANDIS Administration Furosemide 40 mg 02/15/25 11:10 02/16/25 09:55 Furosemide Inj 40 Mg/4 Ml Vial IV PUSH 40 mg DAILY KANDIS Administration Glucagon 1 mg 01/25/25 20:46 Glucagon For Inj 1 Mg Vial IM PRN PRN Hypoglycemia Protocol Glucose 15 gm 01/25/25 20:46 Glucose Oral Gel 15 Gm Of Glucse In 37.5 Gm Tube PO PRN PRN Hypoglycemia Protocol Hydralazine HCl 10 mg 02/06/25 09:58 02/08/25 16:30 Hydralazine Hcl 20 Mg/Ml Vial IV PUSH 10 mg Q4H PRN Administration Blood Pressure - High Dextrose 1,000 mls @ 100 mls/hr 01/25/25 20:46 Dextrose 5% 1,000 Ml IVPB PRN PRN Hypoglycemia Protocol Insulin Aspart 4 - 8 units 02/12/25 08:00 02/16/25 16:29 Insulin Aspart (*Bkc) 100 Units/Ml SUB-Q Not Given TIDWM KANDIS Protocol Insulin Aspart 2 - 4 units 02/11/25 22:45 02/16/25 22:54 Insulin Aspart (*Bkc) 100 Units/Ml SUB-Q Not Given HS KANDIS Protocol Insulin Glargine 10 units 01/29/25 21:00 02/16/25 22:27 Insulin Glargine (*Bkc) 100 Units/Ml SUB-Q 10 units HS KANDIS Administration Insulin Glargine 20 units 02/06/25 07:55 02/07/25 08:43 Insulin Glargine (*Bkc) 100 Units/Ml SUB-Q 20 units DAILY KANDIS Administration Ipratropium [place] 0.5 mg 02/15/25 16:33 Ipratropium Br 0.02% Inh Soln 0.5 Mg/2.5 Ml Vial INHALATION Q6HRT PRN Wheezing Lactobacillus Acidophilus 1 pkt 02/03/25 09:00 02/07/25 12:15 Acidophilus Packet 1 Pkt Packet PO Not Given QID KANDIS Levalbuterol HCl 0.63 mg 02/15/25 16:34 Levalbuterol Neb 1.25 Mg/3 Ml INHALATION Q6HRT PRN Wheezing Metoprolol Tartrate 5 mg 02/09/25 23:21 02/09/25 23:57 Metoprolol Tartrate Inj 5 Mg/5 Ml Vial IV PUSH 5 mg Q4H PRN Administration afib >130 Metoprolol Tartrate 50 mg 02/12/25 09:00 02/16/25 22:26 Metoprolol Tartrate 50 Mg Tab PO 50 mg Q12HR KANDIS Administration Metronidazole 500 mg 02/11/25 12:00 02/17/25 04:58 Metronidazole 500 Mg Tablet PO 02/28/25 23:59 500 mg Q6HR KANDIS Administration Ondansetron HCl 4 mg 01/25/25 20:51 02/06/25 22:13 Ondansetron Inj 4 Mg/2 Ml Vial IV PUSH 4 mg Q6H PRN Administration Nausea And Vomiting Pantoprazole Sodium 40 mg 02/08/25 09:00 02/16/25 22:27 Pantoprazole Sodium Iv 40 Mg Vial IV PUSH 40 mg Q12HR KANDIS Administration Tamsulosin HCl 0.4 mg 02/12/25 09:00 02/16/25 09:55 Tamsulosin Hcl 0.4 Mg Capsule PO 0.4 mg QAM KANDIS Administration Radiology Results: ITS Impressions Pelvis CT 01/26/25 14:17 IMPRESSION: 1. No significant change in a bilobed gas and fluid containing abscess in the deep pelvis. Patient canceled the planned percutaneous abscess drainage catheter placement due to discomfort despite attempts at repositioning. Abdomen X-Ray 02/07/25 08:16 IMPRESSION: NO ACUTE ABDOMINAL FINDINGS. Catheter Placement CT 02/12/25 14:51 IMPRESSION: 1. Successful CT-guided pelvic abscess drainage catheter placement. 2. 10 mL fluid was sent for aerobic and anaerobic cultures. 3. The catheter will be managed by Dr. Goins. Abdomen/Pelvis CT 02/15/25 08:26 IMPRESSION: 1. Significant decrease in size of a presacral abscess likely related to prior sigmoid diverticulitis post right transgluteal percutaneous abscess drainage catheter placement. 2. Small bilateral pleural effusions with dependent compressive atelectasis in both lungs. 3. Cholelithiasis. 4. Bilateral nonobstructing nephrolithiasis. Modified Barium Swallow 02/15/25 11:41 IMPRESSION: Pharyngeal dysphagia with laryngeal penetration without aspiration. Please correlate with speech pathologist findings and specific feeding recommendations. Chest X-Ray 02/15/25 12:09 IMPRESSION: 1. Small bilateral pleural effusions with associated bibasilar atelectasis and/or pneumonia. Labs Labs: Laboratory Results - last 24 hr 02/16/25 02/16/25 02/16/25 07:23 11:31 16:18 WBC RBC Hgb Hct MCV MCH MCHC RDW Plt Count MPV Sodium Potassium Chloride Carbon Dioxide Anion Gap BUN Creatinine Estim Creat Clear Calc Estimated GFR Glucose POC Capillary Glucose 113 H 124 H 96 Calcium 02/16/25 02/17/25 02/17/25 19:30 06:25 06:26 WBC 8.7 RBC 3.56 L Hgb 8.9 L Hct 31.5 L MCV 88.5 MCH 25.0 L MCHC 28.3 L RDW 22.0 H Plt Count 281 MPV 10.8 H Sodium 147 H Potassium 2.8 L* Chloride 107 Carbon Dioxide 38 H Anion Gap 2 L BUN 24 H Creatinine 0.64 L Estim Creat Clear Calc 85 Estimated GFR > 60 Glucose 117 H POC Capillary Glucose 136 H Calcium 8.0 L
[2025-02-17] MEDS: PANTOPRAZOLE SODIUM IV 40 MG VIAL IV PUSH ×2 (08:07→23:18)
[2025-02-17] MEDS: METOPROLOL TARTRATE 50 MG TAB PO (08:07)
[2025-02-17] MEDS: FUROSEMIDE INJ 40 MG/4 ML VIAL IV PUSH (08:07)
[2025-02-17] MEDS: TAMSULOSIN HCL 0.4 MG CAPSULE PO (08:08)
[2025-02-17] MEDS: FLUTICASONE PROPIONATE 0.05% NA SPR 16 GM BTL (*BKC) 1 SPRAY NASAL ×2 (08:09→23:18)
[2025-02-17] MEDS: ENOXAPARIN 40 MG/0.4 ML SYRINGE SUB-Q (08:09)
[2025-02-17 08:22] LABS: Glucose Point of Care 113 mg/dl (65-105)
[2025-02-17] MEDS: POTASSIUM CHLORIDE INJ 40 MEQ in SODIUM CHLORIDE 0.9% IV 500 ML 130 MEQ IVPB (09:29)
[2025-02-17] MEDS: SPIRONOLACTONE 25 MG TABLET PO (09:34)
--- NOTE | 2025-02-17 10:17 | P.PNIM_ITS ---
Progress Note: A&P Assessment and Plan (1) Cardiac arrest: Code(s): I46.9 - Cardiac arrest, cause unspecified Status: Acute Assessment and Plan: Resolved Patient had a cardiac arrest after placement of a percutaneous drain in the pelvic abscess. Could be related to vasovagal, translocation of bacteria, hypoxia as patient was laying flat, hypovolemia, acidosis -successful ROSC x2, intubated in the CT scan suite by ER physician -patient did follow commands post code a continue, so not a candidate for targeted temperature management -will continue to treat underlying cause (2) Septic shock: Code(s): A41.9 - Sepsis, unspecified organism; R65.21 - Severe sepsis with septic shock Status: Acute Assessment and Plan: 02/01:In the ICU patient dropped her blood pressures -patient has been adequately fluid-resuscitated with IV fluids and albumin -01/25: Blood cultures negative x2 -02/02: repeat blood cultures -growing E coli (pansensitive) and Clostridium ramosum -02/02: Abscess fluid culture growing E coli and Bacteroides fragilis 02/03: WBC count up to 64, could be related to septic shock, infection, leukomoid reaction, steroids. Will continue to monitor -WBC count is trending down, patient is afebrile, continue to monitor --continue meropenem, Flagyl 02/04: Discontinue vancomycin -continue doxycycline for 5 days - weaning stress dose steroid -off all pressors (patient was on Levophed, Bobo-Synephrine and vasopressin) -WBC count trending down 02/04: Repeat blood cultures growing Clostridium ramosum, bacteroids fragilis 02/09: Repeat blood culture shows no growth 02/11:Removal of pelvic abscess drain by surgery 02/12: Patient successfully underwent transgluteal percutaneous abscess drain placement with IR. 02/15 abscess culture from 02/12 positive for E coli Now on Augmentin and Flagyl per Culture (3) Acute respiratory failure: Qualifiers: Respiratory failure complication: hypoxia Qualified Code(s): J96.01 - Acute respiratory failure with hypoxia Code(s): J96.00 - Acute respiratory failure, unspecified whether with hypoxia or hypercapnia Status: Acute Assessment and Plan: Acute respiratory failure likely related to cardiac arrest possible from septic shock, infection, hypovolemia, translocation of bacteria, acidosis, hypoxia -patient intubated in the CT scan suite by ER physician -02/06: Extubated Accidentally coughed upper ETT was on pressure support ventilation 10/5 for approximately 3 hours and CXR showed bilateral pulm edema with pleural effusion (4) Intra-abdominal abscess: Code(s): K65.1 - Peritoneal abscess Status: Acute Assessment and Plan: Intra-abdominal abscess, status post percutaneous IR drain placement on 02/01/2025 and removal on 02/10/2025.Underwent 02/12 transgluteal percutaneous abscess drain placement by IR -draining purulent material, cultures as above -surgery is following the patient -Continue Meropenem and Metronidazole -culture growing pansensitive E coli; and bacteroides fragilis Now on Augmentin and Flagyl (5) Diabetes 1.5, managed as type 2: Code(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 hydralazine IV -once patient starts taking p.o. with will add her home antihypertensive (7) Anemia: Qualifiers: Anemia type: other cause Other causes of anemia: chronic disease, other Qualified Code(s): D63.8 - Anemia in other chronic diseases classified elsewhere Code(s): D64.9 - Anemia, unspecified Status: Acute Assessment and Plan: 02/03: Hemoglobin dropped to 6.3. -will transfuse 1 unit of packed RBC -hemoglobin stable -02/05: hemoglobin dropped to 7.0 -status post 1 unit of packed RBC -iron panel reflective of iron deficiency anemia and/or anemia of chronic disease -folic acid and vitamin B12 levels within normal limits -stool occult was positive -appreciate GI evaluation and no recommendations for endoscopy as patient does not have any overt bleeding -hemoglobin is stable, 8.9 continue to monitor (8) Hypernatremia: Code(s): E87.0 - Hyperosmolality and hypernatremia Status: Acute Assessment and Plan: Started Albumin infusion Na 147 today continue diuresis and monitor (9) Atrial fibrillation: Code(s): I48.91 - Unspecified atrial fibrillation Status: Acute Assessment and Plan: Started Metoprolol PO q 6 hrs [id number] score 3(Age,sex,DM) New onset. Order TSH ECHO:Left ventricular systolic function is normal, estimated at 55-60% Will defer anticoagulation until discussion with Surgery and Cardiology Cardiology do not want to start anticoagulation due to anemia Plan Hypokalemia K 2.8 replaced and started on Spironolactone and monitor DVT prophylaxis on Sq lovenox Patient continues to need continued hospitalization due to hypernatremia and Hypokalemia. Subjective Date/time seen: 02/17/25 10:17 Interval history: Comfortable at bedside Abscess culture positive for E coli Blood culture finally negative on 02/08/25 awaiting normalization of potassium Review of Systems Review of Systems: All systems reviewed & are unremarkable except as noted in HPI and below ROS unobtainable: Yes unobtainable due to endotracheal tube, unobtainable due to medical condition and unobtainable due to mental status Exam Narrative: General: Obese female, currently in no acute distress HEENT:? Pupils equal and reactive, sclera is clear, Airvo in place Neck:? Supple Respiratory:? Coarse breath sounds bilaterally, decreased at bases, no wheezing, adequate air entry Cardiac:? S1-S2 normal, regular rate and rhythm Abdomen:? Soft, nontender, obese, hypoactive bowel sounds, left lower quadrant drain in place with purulent drainage Extremities:? Bilateral upper and lower extremity pitting edema, improving Neuro:? Of Precedex. More awake, alert, able to answer questions, follows simple commands, Skin:? No skin lesions noted Psych:? Depressed affect Const: General: comfortable and no acute distress Other: , female, elderly, disheveled. Nontoxic appearance. HENMT: Face/Nose/Sinus: Normal nares present Mouth: Yes moist mucous membranes Eyes: General: appearance normal, both eyes and all related structures Sclera: sclerae normal Pupils: Equal, round and reactive pupils present EOM: EOMs intact bilaterally Resp: Effort & Inspection: normal respiratory effort Auscultation: clear to auscultation bilaterally Cardio: Rate: regular rate Rhythm: regular rhythm Other: S1-S2 present without murmur, rub, ectopy GI: Other: tender in the lower quadrants. hyperactive bowel sounds in the upper quadrants, normoactive in the lower. Nondistended, soft. Skin: General skin exam: normal color and no rashes or lesions noted Wounds: no wounds Neuro: Cranial nerves: Yes Equal, round and reactive pupils present Speech: normal speech Motor exam (neuro): 5/5 motor strength present throughout Sensory Exam: normal sensation Other: A&O x4 Extrem: General: normal to inspection Psych: Mental Status: mental status grossly normal Affect: normal affect Other: Malodorous, disheveled. Fair insight and judgment, pleasant. Objective Data Vital Signs Vital Signs: Vital Signs - 24 hr 02/16/25 14:00 02/16/25 14:34 02/16/25 16:00 Temperature 97.0 F L Pulse Rate 50 L 58 L Respiratory Rate 18 Blood Pressure 139/74 Pulse Oximetry 95 98 Oxygen Delivery Nasal Cannula Oxygen Flow Rate 1 02/16/25 20:00 02/16/25 20:00 02/16/25 21:00 Temperature 97.8 F Pulse Rate 65 67 Respiratory Rate 20 Blood Pressure 130/63 Pulse Oximetry 96 96 Oxygen Delivery Nasal Cannula Oxygen Flow Rate 1 02/17/25 00:00 02/17/25 04:00 02/17/25 05:30 Temperature 97.5 F L Pulse Rate 54 L 47 L 54 L Respiratory Rate 18 Blood Pressure 131/66 Pulse Oximetry 100 Oxygen Delivery Oxygen Flow Rate 02/17/25 08:07 Temperature Pulse Rate 56 L Respiratory Rate Blood Pressure Pulse Oximetry Oxygen Delivery Oxygen Flow Rate Intake/Output Intake/Output: Intake & Output 02/14/25 02/15/25 02/16/25 02/17/25 23:59 23:59 23:59 23:59 Intake Total 1860 950 400 350 Output Total 1200 1880 2065 470 Balance 660 -930 -1665 -120 Meds/Results Medications: Active Medications Generic Name Dose Route Start Last Admin Trade Name Freq PRN Reason Stop Dose Admin Acetaminophen 650 mg 01/25/25 20:51 02/11/25 20:36 Acetaminophen 325 Mg Tablet PO 650 mg Q4H PRN Administration Headache Amoxicillin/Clavulanate Potassium 1 tablet 02/15/25 14:00 02/17/25 04:58 Amoxicillin/Clavulanate K 875-125 Mg Tab PO 02/28/25 23:59 1 tablet Q8HR KANDIS Administration Dextrose 12.5 gm 01/25/25 20:46 01/26/25 11:40 Dextrose 50% 25 Gm/50 Ml Syringe IV PUSH 12.5 gm PRN PRN Administration Hypoglycemia Protocol Enoxaparin Sodium 40 mg 02/08/25 09:00 02/17/25 08:09 Enoxaparin 40 Mg/0.4 Ml Syringe SUB-Q 40 mg DAILY KANDIS Administration Fluticasone Propionate 1 spray 02/07/25 11:00 02/17/25 08:09 Fluticasone Propionate 0.05% Na Spr 16 Gm Btl (*Bkc) NASAL 1 spray Q12HR KANDIS Administration Furosemide 40 mg 02/15/25 11:10 02/17/25 08:07 Furosemide Inj 40 Mg/4 Ml Vial IV PUSH 40 mg DAILY KANDIS Administration Glucagon 1 mg 01/25/25 20:46 Glucagon For Inj 1 Mg Vial IM PRN PRN Hypoglycemia Protocol Glucose 15 gm 01/25/25 20:46 Glucose Oral Gel 15 Gm Of Glucse In 37.5 Gm Tube PO PRN PRN Hypoglycemia Protocol Hydralazine HCl 10 mg 02/06/25 09:58 02/08/25 16:30 Hydralazine Hcl 20 Mg/Ml Vial IV PUSH 10 mg Q4H PRN Administration Blood Pressure - High Dextrose 1,000 mls @ 100 mls/hr 01/25/25 20:46 Dextrose 5% 1,000 Ml IVPB PRN PRN Hypoglycemia Protocol Potassium Chloride 40 meq/ 520 mls @ 130 mls/hr 02/17/25 09:15 02/17/25 09:29 Sodium Chloride IVPB 02/17/25 13:14 130 mls/hr ONCE ONE Administration Insulin Aspart 4 - 8 units 02/12/25 08:00 02/17/25 08:24 Insulin Aspart (*Bkc) 100 Units/Ml SUB-Q Not Given TIDWM KANDIS Protocol Insulin Aspart 2 - 4 units 02/11/25 22:45 02/16/25 22:54 Insulin Aspart (*Bkc) 100 Units/Ml SUB-Q Not Given HS [facility] Protocol Insulin Glargine 10 units 01/29/25 21:00 02/16/25 22:27 Insulin Glargine (*Bkc) 100 Units/Ml SUB-Q 10 units HS KANDIS Administration Insulin Glargine 20 units 02/06/25 07:55 02/07/25 08:43 Insulin Glargine (*Bkc) 100 Units/Ml SUB-Q 20 units DAILY KANDIS Administration Ipratropium [place] 0.5 mg 02/15/25 16:33 Ipratropium Br 0.02% Inh Soln 0.5 Mg/2.5 Ml Vial INHALATION Q6HRT PRN Wheezing Lactobacillus Acidophilus 1 pkt 02/03/25 09:00 02/07/25 12:15 Acidophilus Packet 1 Pkt Packet PO Not Given QID KANDIS Levalbuterol HCl 0.63 mg 02/15/25 16:34 Levalbuterol Neb 1.25 Mg/3 Ml INHALATION Q6HRT PRN Wheezing Metoprolol Tartrate 5 mg 02/09/25 23:21 02/09/25 23:57 Metoprolol Tartrate Inj 5 Mg/5 Ml Vial IV PUSH 5 mg Q4H PRN Administration afib >130 Metoprolol Tartrate 37.5 mg 02/17/25 21:00 Metoprolol Tartrate 12.5 Mg Tablet PO Q12HR [facility] Metronidazole 500 mg 02/11/25 12:00 02/17/25 04:58 Metronidazole 500 Mg Tablet PO 02/28/25 23:59 500 mg Q6HR KANDIS Administration Ondansetron HCl 4 mg 01/25/25 20:51 02/06/25 22:13 Ondansetron Inj 4 Mg/2 Ml Vial IV PUSH 4 mg Q6H PRN Administration Nausea And Vomiting Pantoprazole Sodium 40 mg 02/17/25 09:00 02/17/25 09:28 Pantoprazole 40 Mg Tablet PO Not Given Q12HR KANDIS Spironolactone 25 mg 02/17/25 09:00 02/17/25 09:34 Spironolactone 25 Mg Tablet PO 25 mg QAM KANDIS Administration Tamsulosin HCl 0.4 mg 02/12/25 09:00 02/17/25 08:08 Tamsulosin Hcl 0.4 Mg Capsule PO 0.4 mg QAM KANDIS Administration Radiology Results: ITS Impressions Pelvis CT 01/26/25 14:17 IMPRESSION: 1. No significant change in a bilobed gas and fluid containing abscess in the deep pelvis. Patient canceled the planned percutaneous abscess drainage catheter placement due to discomfort despite attempts at repositioning. Abdomen X-Ray 02/07/25 08:16 IMPRESSION: NO ACUTE ABDOMINAL FINDINGS. Catheter Placement CT 02/12/25 14:51 IMPRESSION: 1. Successful CT-guided pelvic abscess drainage catheter placement. 2. 10 mL fluid was sent for aerobic and anaerobic cultures. 3. The catheter will be managed by Dr. Goins. Abdomen/Pelvis CT 02/15/25 08:26 IMPRESSION: 1. Significant decrease in size of a presacral abscess likely related to prior sigmoid diverticulitis post right transgluteal percutaneous abscess drainage catheter placement. 2. Small bilateral pleural effusions with dependent compressive atelectasis in both lungs. 3. Cholelithiasis. 4. Bilateral nonobstructing nephrolithiasis. Modified Barium Swallow 02/15/25 11:41 IMPRESSION: Pharyngeal dysphagia with laryngeal penetration without aspiration. Please correlate with speech pathologist findings and specific feeding recommendations. Chest X-Ray 02/15/25 12:09 IMPRESSION: 1. Small bilateral pleural effusions with associated bibasilar atelectasis and/or pneumonia. Labs Labs: Laboratory Results - last 24 hr 02/16/25 02/16/25 02/16/25 11:31 16:18 19:30 WBC RBC Hgb Hct MCV MCH MCHC RDW Plt Count MPV Sodium Potassium Chloride Carbon Dioxide Anion Gap BUN Creatinine Estim Creat Clear Calc Estimated GFR Glucose POC Capillary Glucose 124 H 96 136 H Calcium 02/17/25 02/17/25 02/17/25 06:25 06:26 08:20 WBC 8.7 RBC 3.56 L Hgb 8.9 L Hct 31.5 L MCV 88.5 MCH 25.0 L MCHC 28.3 L RDW 22.0 H Plt Count 281 MPV 10.8 H Sodium 147 H Potassium 2.8 L* Chloride 107 Carbon Dioxide 38 H Anion Gap 2 L BUN 24 H Creatinine 0.64 L Estim Creat Clear Calc 85 Estimated GFR > 60 Glucose 117 H POC Capillary Glucose 113 H Calcium 8.0 L Quality VTE Prophylaxis VTE prophylaxis: pharmacologic ordered
--- NOTE | 2025-02-17 10:39 | PCPTNOTE ---
RN requests to hold PT at this time due to patient having low HR. PT will continue to follow.
[2025-02-17 12:14] LABS: Glucose Point of Care 99 mg/dl (65-105)
--- NOTE | 2025-02-17 16:12 | WPDURCON ---
Assessment and Plan Assessment and plan (1) Bilateral nephrolithiasis: Code(s): N20.0 - Calculus of kidney Status: Acute Plan -CT reveals Bilateral nonobstructing nephrolithiasis with 2 mm stone in upper pole calyx of the left kidney and at least 3 stones the right kidney the largest at the renal pelvis measuring 2.0 cm. -No urological surgical intervention planned at this time. Patient denies any cva tenderness. -Patient to follow up as outpatient for further intervention of noted stones. -last u/a is from 02/02. hematuria noted in burgos. u/a with reflex to culture -wbc is 8.7 now and Cr is 0.64. patient was septic secondary to abcess. Urology Consult Note HPI Date Seen: 02/17/25 Requesting Physician: Elvira Carrera MD Primary Care Provider: Lexy George APRN Consult Narrative Narrative: Bharti Neal is a 74 year old female with past medical history of diabetes (1.5, managed as 2) and hypertension presents to the hospital with diarrhea and weakness. She had placement of a percutaneous drain in the pelvic abscess. Patient had ct this admit that revealed some stones and has since had some hematuria. Patient denies having urologist. Review of Systems Genitourinary: Genitourinary: Reports no additional female genitourinary complaints and Reports as per HPI [facility] Past Medical History Medical History Diabetes 1.5, managed as type 2 Hypertension Surgical History Surgical History No history of previous surgery Family History Family History Mother Heart attack Diabetes mellitus Type II DM Father , heart attack Heart attack Heart disease Sibling , gynecological cancer (lining of uterus per patient) No problems noted. Social History Social History Smoking status: Never smoker Second hand tobacco smoke exposure: No Alcohol intake: never Alcohol use details: occasional, [id number] Substance use: never Substance use type: does not use Do You Feel Safe in your Home?: Yes Lack of Transportation: No Lack of Food: Never True Current Housing: I Have Housing Concerned About Future Housing: No Difficulty Paying Gas/Electric Bills: No Difficulty Paying for Meds: No Currently Unemployed: No Education: Bachelor's Degree Difficulty w/ Childcare or Family Care: No Spiritual care concerns: No Meds Home Medications and Allergies Home Medications ?Medication ?Instructions ?Recorded ?Confirmed ?Type triamterene 37.5 1 cap PO DAILY 09/22/19 01/25/25 History mg-hydrochlorothiazide 25 mg capsule verapamil 240 mg tablet,extended 240 mg PO BID 09/22/19 01/25/25 History release lancets 30 gauge (BD Microtainer #200 ea 11/04/24 01/25/25 Rx Lancet) blood sugar diagnostic (Blood #100 ea 11/23/24 01/25/25 Rx Glucose Test strips) blood-glucose meter #1 ea 11/23/24 01/25/25 Rx pioglitazone 45 mg tablet See Rx Instructions .Route 11/24/24 01/25/25 Rx .COMPLEX #90 tabs glimepiride 4 mg tablet 4 mg PO BID #180 tabs 12/17/24 01/25/25 Rx metoprolol succinate 50 mg 50 mg PO DAILY #180 tabs 12/17/24 01/25/25 Rx tablet,extended release 24 hr Allergies Allergy/AdvReac Type Severity Reaction Status Date / Time ciprofloxacin (From Cipro) Allergy Rash Verified 01/25/25 10:42 codeine Allergy Rash Verified 01/25/25 10:42 ibuprofen (From Advil) AdvReac Other Verified 01/25/25 10:42 naproxen (From Aleve) AdvReac Other Verified 01/25/25 10:42 Vital Signs Vital Signs - 24 hr 02/16/25 20:00 02/16/25 20:00 02/16/25 21:00 Temperature 97.8 F Pulse Rate 65 67 Respiratory Rate 20 Blood Pressure 130/63 Pulse Oximetry 96 96 Oxygen Delivery Nasal Cannula Oxygen Flow Rate 1 02/17/25 00:00 02/17/25 04:00 02/17/25 05:30 Temperature 97.5 F L Pulse Rate 54 L 47 L 54 L Respiratory Rate 18 Blood Pressure 131/66 Pulse Oximetry 100 Oxygen Delivery Oxygen Flow Rate 02/17/25 08:00 02/17/25 08:07 Temperature Pulse Rate 56 L Respiratory Rate Blood Pressure Pulse Oximetry 100 Oxygen Delivery Nasal Cannula Oxygen Flow Rate 1 Exam Const: General: comfortable and no acute distress Eyes: General: appearance normal, both eyes and all related structures Resp: Effort & Inspection: normal respiratory effort Urinary Catheter: Urinary Catheter: patent and draining and urine clear Skin: General skin exam: normal color Psych: Speech and movement: Normal speech and movement present Results Labs 02/17/25 06:26 02/17/25 06:25 Labs: Short CBC 02/17/25 Range/Units 06:26 WBC 8.7 (4.5-10.0) K/mm3 Hgb 8.9 L (12.0-15.0) g/dL Hct 31.5 L (37.0-47.0) % Plt Count 281 (150-375) k/mm3 [facility] 02/17/25 06:25 Sodium 147 H Potassium 2.8 L* Chloride 107 Carbon Dioxide 38 H BUN 24 H Creatinine 0.64 L Glucose 117 H Calcium 8.0 L
[2025-02-17 16:34] LABS: Glucose Point of Care 84 mg/dl (65-105)
[2025-02-17 20:34] LABS: Glucose Point of Care 127 mg/dl (65-105)
[2025-02-17 21:15] LABS: Add Urine Microscopic? YES; Appearance Urine Turbid (Clear); Bacteria Urine None Seen /hpf; Bilirubin Urine 1+ (Negative); Blood Urine 2+ (Negative); Budding Yeast Urine Present /hpf; Calcium Oxalate Crystals Urine Present /hpf; Color Urine Dark Yellow (Yellow); Glucose Urine UA Negative (Negative); Ketones Urine Trace mg/dL (Negative); Leukocyte Esterase Ur 2+ LEU/UL (Negative); Need Manual Microscopic Reviewed; Nitrate Urine Positive (Negative); Protein Urine 2+ mg/dL (Negative); RBC Urine >100 /hpf (0-2); Specific Grav Ur 1.021 (1.001-1.035); Squamous Epithelial Cell Urine None Seen /hpf (Few); WBC Clumps Urine Present /HPF; WBC Urine >100 /hpf (0-3); pH Urine 5.5 (5.0-9.0)
[2025-02-17] MEDS: METOPROLOL TARTRATE 12.5 MG TABLET 37.5 MG PO (22:13)
[2025-02-17] MEDS: INSULIN GLARGINE (*BKC) 100 UNITS/ML 10 UNITS SUB-Q (22:15)
[2025-02-18] VITALS (11 sets, daily range): BP systolic 124–132; BP diastolic 64–74; PULSE 44–65; RESP 18–20; TEMP 36.1–36.6; O2SAT 96–100
[2025-02-18] MEDS: metroNIDAZOLE 500 MG TABLET PO ×4 (05:26→23:08)
[2025-02-18] MEDS: AMOXICILLIN/CLAVULANATE K 875-125 MG TAB 1 TABLET PO ×3 (05:26→21:08)
[2025-02-18 05:43] LABS: Basophils Percent Auto 0.4 % (0.2-1.2); Eosinophils Absolute Auto 0.2 K/mm3 (0-0.3); Hematocrit 32.6 % (37.0-47.0); Hemoglobin 9.3 g/dL (12.0-15.0); Immature Granulocyte Absolute 0.04 K/mm3 (0.00-0.031); Immature Granulocyte Percent A 0.5 % (0-0.5); Lymphocytes Absolute Auto 0.66 K/mm3 (0.9-3.2); Lymphocytes Percent Auto 8.3 % (18.3-44.2); Mean Corpuscular HGB Conc 28.5 g/dl (32-36); Mean Corpuscular Hemoglobin 25.3 pg (26-34); Mean Corpuscular Volume 88.8 fl (80-100); Mean Platelet Volume 11.1 fl (7.4-10.4); Monocytes Absolute Auto 0.5 K/mm3 (0.1-0.6); Monocytes Percent Auto 5.9 % (2.6-8.5); Neutrophils Absolute Auto 6.6 K/mm3 (1.3-6.7); Neutrophils Percent Auto 82.9 % (45.5-73.1); Platelet Count Result 284 k/mm3 (150-375); Red Blood Count 3.67 M/mm3 (4.2-5.4); Red Cell Distribution Width 22.4 % (11.5-14.5)
[2025-02-18 05:59] LABS: Alanine Aminotransferase 12 U/L (6-35); Albumin Level 2.7 g/dL (3.5-5.1); Alkaline Phosphatase 125 U/L (38-126); Anion Gap 3 mmol/L (4-12); Aspartate Amino Transferase 23 U/L (14-36); Bilirubin,Total 1.3 mg/dL (0.2-1.3); Blood Urea Nitrogen 23 mg/dL (7-17); Carbon Dioxide 38 mmol/L (22-30); Chloride 106 mmol/L (98-107); Estimated CRCL calculation 89 ml/min; Estimated Glomerular Filt Rate > 60; Glucose 112 mg/dL (65-110); Potassium 2.9 mmol/L (3.4-5.0); Sodium 147 mmol/L (137-145)
[2025-02-18 06:33] LABS: Anisocytosis 2+; Crenated RBC 1+; Hypochromasia 2+; Platelet Estimate Adequate (Adequate); Polychromasia 1+; Schistocytes None Seen; Stomatocytes 1+
[2025-02-18 07:42] LABS: Glucose Point of Care 126 mg/dl (65-105)
[2025-02-18] MEDS: FUROSEMIDE INJ 40 MG/4 ML VIAL IV PUSH ×2 (09:17→17:08)
[2025-02-18] MEDS: TAMSULOSIN HCL 0.4 MG CAPSULE PO (09:17)
[2025-02-18] MEDS: METOPROLOL TARTRATE 12.5 MG TABLET 37.5 MG PO ×2 (09:17→21:09)
[2025-02-18] MEDS: ENOXAPARIN 40 MG/0.4 ML SYRINGE SUB-Q (09:17)
[2025-02-18] MEDS: PANTOPRAZOLE 40 MG TABLET PO ×2 (09:18→21:09)
[2025-02-18] MEDS: SPIRONOLACTONE 25 MG TABLET PO ×2 (09:18→10:37)
[2025-02-18] MEDS: FLUTICASONE PROPIONATE 0.05% NA SPR 16 GM BTL (*BKC) 1 SPRAY NASAL ×2 (09:18→21:10)
[2025-02-18] MEDS: POTASSIUM CHLORIDE INJ 40 MEQ in SODIUM CHLORIDE 0.9% IV 500 ML 130 MEQ IVPB (10:36)
--- NOTE | 2025-02-18 11:21 | P.PNIM_ITS ---
Progress Note: A&P Assessment and Plan (1) Cardiac arrest: Code(s): I46.9 - Cardiac arrest, cause unspecified Status: Acute Assessment and Plan: Resolved Patient had a cardiac arrest after placement of a percutaneous drain in the pelvic abscess. Could be related to vasovagal, translocation of bacteria, hypoxia as patient was laying flat, hypovolemia, acidosis -successful ROSC x2, intubated in the CT scan suite by ER physician -patient did follow commands post code a continue, so not a candidate for targeted temperature management -will continue to treat underlying cause (2) Septic shock: Code(s): A41.9 - Sepsis, unspecified organism; R65.21 - Severe sepsis with septic shock Status: Acute Assessment and Plan: 02/01:In the ICU patient dropped her blood pressures -patient has been adequately fluid-resuscitated with IV fluids and albumin -01/25: Blood cultures negative x2 -02/02: repeat blood cultures -growing E coli (pansensitive) and Clostridium ramosum -02/02: Abscess fluid culture growing E coli and Bacteroides fragilis 02/03: WBC count up to 64, could be related to septic shock, infection, leukemoid reaction, steroids. Will continue to monitor -WBC count is trending down, patient is afebrile, continue to monitor --continue meropenem, Flagyl 02/04: Discontinue vancomycin -continue doxycycline for 5 days - weaning stress dose steroid -off all pressors (patient was on Levophed, Bobo-Synephrine and vasopressin) -WBC count trending down 02/04: Repeat blood cultures growing Clostridium ramosum, bacteroids fragilis 02/09: Repeat blood culture shows no growth 02/11:Removal of pelvic abscess drain by surgery 02/12: Patient successfully underwent transgluteal percutaneous abscess drain placement with IR. 02/15 abscess culture from 02/12 positive for E coli on Augmentin and Flagyl per Culture to complete 02/20/25 (3) Acute respiratory failure: Qualifiers: Respiratory failure complication: hypoxia Qualified Code(s): J96.01 - Acute respiratory failure with hypoxia Code(s): J96.00 - Acute respiratory failure, unspecified whether with hypoxia or hypercapnia Status: Acute Assessment and Plan: Acute respiratory failure likely related to cardiac arrest possible from septic shock, infection, hypovolemia, translocation of bacteria, acidosis, hypoxia -patient intubated in the CT scan suite by ER physician -02/06: Extubated Accidentally coughed upper ETT was on pressure support ventilation 10/5 for approximately 3 hours and CXR showed bilateral pulm edema with pleural effusion (4) Intra-abdominal abscess: Code(s): K65.1 - Peritoneal abscess Status: Acute Assessment and Plan: Intra-abdominal abscess, status post percutaneous IR drain placement on 0 02/01/2025 and removal on 02/10/2025.Underwent 02/12 transgluteal percutaneous abscess drain placement by IR -draining purulent material, cultures as above -surgery is following the patient -Continue Meropenem and Metronidazole -culture growing pansensitive E coli; and bacteroides fragilis Now on Augmentin and Flagyl (5) Diabetes 1.5, managed as type 2: Code(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 hydralazine IV -once patient starts taking p.o. with will add her home antihypertensive (7) Anemia: Qualifiers: Anemia type: other cause Other causes of anemia: chronic disease, other Qualified Code(s): D63.8 - Anemia in other chronic diseases classified elsewhere Code(s): D64.9 - Anemia, unspecified Status: Acute Assessment and Plan: 02/03: Hemoglobin dropped to 6.3. -will transfuse 1 unit of packed RBC -hemoglobin stable -02/05: hemoglobin dropped to 7.0 -status post 1 unit of packed RBC -iron panel reflective of iron deficiency anemia and/or anemia of chronic disease -folic acid and vitamin B12 levels within normal limits -stool occult was positive -appreciate GI evaluation and no recommendations for endoscopy as patient does not have any overt bleeding -hemoglobin is stable, 8.9 continue to monitor (8) Hypernatremia: Code(s): E87.0 - Hyperosmolality and hypernatremia Status: Acute Assessment and Plan: Started Albumin infusion Na 147 today continue diuresis and monitor (9) Atrial fibrillation: Code(s): I48.91 - Unspecified atrial fibrillation Status: Acute Assessment and Plan: Started Metoprolol PO q 6 hrs [id number] score 3(Age,sex,DM) New onset. TSH wnl ECHO:Left ventricular systolic function is normal, estimated at 55-60% Will defer anticoagulation until discussion with Surgery and Cardiology neurology recommended not starting anticogulation due to hematuria Plan Hypokalemia K 2.9 replaced adjusted Spironolactone 50mg bid hematuria US positive for RBC > 100 Urology consulted and noted they will follow up outpatinet recommended holding full anticoagulation meantime Diastolic CHF exacerbation ECHO showed grade I diastolic function Patient has anasarca Conitnue Lasix 40mg bid IV, adn Spironolactone 50mg bid monitor DVT prophylaxis on Sq lovenox Patient continues to need continued hospitalization due to hypernatremia and Hypokalemia. Subjective Date/time seen: 02/18/25 11:21 Interval history: Comfortable at bedside however more edematous today K 2.9 and Spironolactone increased to 50mg po bid lasix 40mg bid awaiting normalization of potassium Review of Systems Review of Systems: All systems reviewed & are unremarkable except as noted in HPI and below ROS unobtainable: Yes unobtainable due to endotracheal tube, unobtainable due to medical condition and unobtainable due to mental status Exam Narrative: General: Obese female, currently in no acute distress HEENT:? Pupils equal and reactive, sclera is clear, Airvo in place Neck:? Supple Respiratory:? Coarse breath sounds bilaterally, decreased at bases, no wheezing, adequate air entry Cardiac:? S1-S2 normal, regular rate and rhythm Abdomen:? Soft, nontender, obese, hypoactive bowel sounds, left lower quadrant drain in place with purulent drainage Extremities:? Bilateral upper and lower extremity pitting edema, improving Neuro:? Of Precedex. More awake, alert, able to answer questions, follows simple commands, Skin:? No skin lesions noted Psych:? Depressed affect Const: General: comfortable and no acute distress Other: , female, elderly, disheveled. Nontoxic appearance. HENMT: Face/Nose/Sinus: Normal nares present Mouth: Yes moist mucous membranes Eyes: General: appearance normal, both eyes and all related structures Sclera: sclerae normal Pupils: Equal, round and reactive pupils present EOM: EOMs intact bilaterally Resp: Effort & Inspection: normal respiratory effort Auscultation: clear to auscultation bilaterally Cardio: Rate: regular rate Rhythm: regular rhythm Other: S1-S2 present without murmur, rub, ectopy GI: Other: tender in the lower quadrants. hyperactive bowel sounds in the upper quadrants, normoactive in the lower. Nondistended, soft. Skin: General skin exam: normal color and no rashes or lesions noted Wounds: no wounds Neuro: Cranial nerves: Yes Equal, round and reactive pupils present Speech: normal speech Motor exam (neuro): 5/5 motor strength present throughout Sensory Exam: normal sensation Other: A&O x4 Extrem: General: normal to inspection Psych: Mental Status: mental status grossly normal Affect: normal affect Other: Malodorous, disheveled. Fair insight and judgment, pleasant. Objective Data Vital Signs Vital Signs: Vital Signs - 24 hr 02/17/25 12:00 02/17/25 14:00 02/17/25 16:00 Temperature 97.1 F L Pulse Rate 44 L 57 L 59 L Respiratory Rate 16 Blood Pressure 142/71 H Pulse Oximetry 98 Oxygen Delivery Oxygen Flow Rate 02/17/25 20:00 02/17/25 20:00 02/17/25 21:05 Temperature 97.7 F Pulse Rate 63 64 Respiratory Rate 20 Blood Pressure 137/67 Pulse Oximetry 96 96 Oxygen Delivery Nasal Cannula Oxygen Flow Rate 1 02/17/25 21:35 02/17/25 22:13 02/18/25 00:00 Temperature Pulse Rate 64 44 L Respiratory Rate Blood Pressure Pulse Oximetry 95 Oxygen Delivery Nasal Cannula Oxygen Flow Rate 1 02/18/25 04:00 02/18/25 05:22 02/18/25 08:00 Temperature 97.5 F L Pulse Rate 44 L 52 L 55 L Respiratory Rate 20 Blood Pressure 132/74 Pulse Oximetry 100 Oxygen Delivery Oxygen Flow Rate 02/18/25 08:27 02/18/25 09:17 Temperature Pulse Rate 63 65 Respiratory Rate Blood Pressure Pulse Oximetry 96 Oxygen Delivery Nasal Cannula Oxygen Flow Rate 1 Intake/Output Intake/Output: Intake & Output 02/15/25 02/16/25 02/17/25 02/18/25 23:59 23:59 23:59 23:59 Intake Total 687 349 2545 760 Output Total 7110 5 2019 400 [facility] -[phone] 360 Meds/Results Medications: Active Medications Generic Name Dose Route Start Last Admin Trade Name Freq PRN Reason Stop Dose Admin Acetaminophen 650 mg 01/25/25 20:51 02/11/25 20:36 Acetaminophen 325 Mg Tablet PO 650 mg Q4H PRN Administration Headache Amoxicillin/Clavulanate Potassium 1 tablet 02/15/25 14:00 02/18/25 05:26 Amoxicillin/Clavulanate K 875-125 Mg Tab PO 02/28/25 23:59 1 tablet Q8HR KANDIS Administration Dextrose 12.5 gm 01/25/25 20:46 01/26/25 11:40 Dextrose 50% 25 Gm/50 Ml Syringe IV PUSH 12.5 gm PRN PRN Administration Hypoglycemia Protocol Enoxaparin Sodium 40 mg 02/08/25 09:00 02/18/25 09:17 Enoxaparin 40 Mg/0.4 Ml Syringe SUB-Q 40 mg DAILY KANDIS Administration Fluticasone Propionate 1 spray 02/07/25 11:00 02/18/25 09:18 Fluticasone Propionate 0.05% Na Spr 16 Gm Btl (*Bkc) NASAL 1 spray Q12HR KANDIS Administration Furosemide 40 mg 02/18/25 17:00 Furosemide Inj 40 Mg/4 Ml Vial IV PUSH BID KANDIS Glucagon 1 mg 01/25/25 20:46 Glucagon For Inj 1 Mg Vial IM PRN PRN Hypoglycemia Protocol Glucose 15 gm 01/25/25 20:46 Glucose Oral Gel 15 Gm Of Glucse In 37.5 Gm Tube PO PRN PRN Hypoglycemia Protocol Hydralazine HCl 10 mg 02/06/25 09:58 02/08/25 16:30 Hydralazine Hcl 20 Mg/Ml Vial IV PUSH 10 mg Q4H PRN Administration Blood Pressure - High Dextrose 1,000 mls @ 100 mls/hr 01/25/25 20:46 Dextrose 5% 1,000 Ml IVPB PRN PRN Hypoglycemia Protocol Potassium Chloride 40 meq/ 520 mls @ 130 mls/hr 02/18/25 09:48 02/18/25 10:36 Sodium Chloride IVPB 02/18/25 13:47 130 mls/hr ONCE ONE Administration Insulin Aspart 4 - 8 units 02/12/25 08:00 02/18/25 07:47 Insulin Aspart (*Bkc) 100 Units/Ml SUB-Q Not Given TIDWM [facility] Protocol Insulin Aspart 2 - 4 units 02/11/25 22:45 02/17/25 22:15 Insulin Aspart (*Bkc) 100 Units/Ml SUB-Q Not Given HS [facility] Protocol Insulin Glargine 10 units 01/29/25 21:00 02/17/25 22:15 Insulin Glargine (*Bkc) 100 Units/Ml SUB-Q 10 units HS KANDIS Administration Insulin Glargine 20 units 02/06/25 07:55 02/07/25 08:43 Insulin Glargine (*Bkc) 100 Units/Ml SUB-Q 20 units DAILY KANDIS Administration Ipratropium [place] 0.5 mg 02/15/25 16:33 Ipratropium Br 0.02% Inh Soln 0.5 Mg/2.5 Ml Vial INHALATION Q6HRT PRN Wheezing Lactobacillus Acidophilus 1 pkt 02/03/25 09:00 02/07/25 12:15 Acidophilus Packet 1 Pkt Packet PO Not Given QID KANDIS Levalbuterol HCl 0.63 mg 02/15/25 16:34 Levalbuterol Neb 1.25 Mg/3 Ml INHALATION Q6HRT PRN Wheezing Metoprolol Tartrate 5 mg 02/09/25 23:21 02/09/25 23:57 Metoprolol Tartrate Inj 5 Mg/5 Ml Vial IV PUSH 5 mg Q4H PRN Administration afib >130 Metoprolol Tartrate 37.5 mg 02/17/25 21:00 02/18/25 09:17 Metoprolol Tartrate 12.5 Mg Tablet PO 37.5 mg Q12HR KANDIS Administration Metronidazole 500 mg 02/11/25 12:00 02/18/25 05:26 Metronidazole 500 Mg Tablet PO 02/28/25 23:59 500 mg Q6HR KANDIS Administration Ondansetron HCl 4 mg 01/25/25 20:51 02/06/25 22:13 Ondansetron Inj 4 Mg/2 Ml Vial IV PUSH 4 mg Q6H PRN Administration Nausea And Vomiting Pantoprazole Sodium 40 mg 02/17/25 09:00 02/18/25 09:18 Pantoprazole 40 Mg Tablet PO 40 mg Q12HR KANDIS Administration Spironolactone 50 mg 02/18/25 17:00 Spironolactone 25 Mg Tablet PO BID [facility] Tamsulosin HCl 0.4 mg 02/12/25 09:00 02/18/25 09:17 Tamsulosin Hcl 0.4 Mg Capsule PO 0.4 mg QAM KANDIS Administration Radiology Results: ITS Impressions Pelvis CT 01/26/25 14:17 IMPRESSION: 1. No significant change in a bilobed gas and fluid containing abscess in the deep pelvis. Patient canceled the planned percutaneous abscess drainage catheter placement due to discomfort despite attempts at repositioning. Abdomen X-Ray 02/07/25 08:16 IMPRESSION: NO ACUTE ABDOMINAL FINDINGS. Catheter Placement CT 02/12/25 14:51 IMPRESSION: 1. Successful CT-guided pelvic abscess drainage catheter placement. 2. 10 mL fluid was sent for aerobic and anaerobic cultures. 3. The catheter will be managed by Dr. Goins. Abdomen/Pelvis CT 02/15/25 08:26 IMPRESSION: 1. Significant decrease in size of a presacral abscess likely related to prior sigmoid diverticulitis post right transgluteal percutaneous abscess drainage catheter placement. 2. Small bilateral pleural effusions with dependent compressive atelectasis in both lungs. 3. Cholelithiasis. 4. Bilateral nonobstructing nephrolithiasis. Modified Barium Swallow 02/15/25 11:41 IMPRESSION: Pharyngeal dysphagia with laryngeal penetration without aspiration. Please correlate with speech pathologist findings and specific feeding recommendations. Chest X-Ray 02/15/25 12:09 IMPRESSION: 1. Small bilateral pleural effusions with associated bibasilar atelectasis and/or pneumonia. Labs Labs: Laboratory Results - last 24 hr 02/17/25 02/17/25 02/17/25 12:11 16:31 19:29 WBC RBC Hgb Hct MCV MCH MCHC RDW Plt Count MPV Immature Gran % (Auto) Neut % (Auto) Lymph % (Auto) [place] % (Auto) Eos % (Auto) Baso % (Auto) Lymph # (Auto) [place] # (Auto) Eos # (Auto) Baso # (Auto) Abs Immat Gran (auto) Absolute Neuts (auto) Absolute Nucleated RBC Band Neutrophils % Nucleated RBC % Platelet Estimate Polychromasia Hypochromasia Anisocytosis Stomatocytes Crenated Cell Schistocytes Sodium Potassium Chloride Carbon Dioxide Anion Gap BUN Creatinine Estim Creat Clear Calc Estimated GFR Glucose POC Capillary Glucose 99 84 127 H Calcium Magnesium Total Bilirubin AST ALT Alkaline Phosphatase Total Protein Albumin Urine Color Urine Appearance Urine pH Ur Specific [place] Urine Protein Urine Glucose (UA) Urine Ketones Ur Blood (Man) Urine Nitrate Urine Bilirubin Urine Urobilinogen Ur Leukocyte Esterase Add Ur Microanalysis Urine RBC Urine WBC Urine WBC Clumps Ur Squamous Epith Cells Calcium Oxalate Crystal Urine Bacteria Urine Casts Urine Yeast (Budding) 02/17/25 02/18/25 02/18/25 20:54 05:09 07:26 WBC 8.0 RBC 3.67 L Hgb 9.3 L Hct 32.6 L MCV 88.8 MCH 25.3 L MCHC 28.5 L RDW 22.4 H Plt Count 284 MPV 11.1 H Immature Gran % (Auto) 0.5 Neut % (Auto) 82.9 H Lymph % (Auto) 8.3 L [place] % (Auto) 5.9 Eos % (Auto) 2.0 Baso % (Auto) 0.4 Lymph # (Auto) 0.66 L [place] # (Auto) 0.5 Eos # (Auto) 0.2 Baso # (Auto) 0.0 Abs Immat Gran (auto) 0.04 H Absolute Neuts (auto) 6.6 Absolute Nucleated RBC 0.000 Band Neutrophils % Not Reportable Nucleated RBC % 0.0 Platelet Estimate Adequate Polychromasia 1+ Hypochromasia 2+ Anisocytosis 2+ Stomatocytes 1+ Crenated Cell 1+ Schistocytes None seen Sodium 147 H Potassium 2.9 L Chloride 106 Carbon Dioxide 38 H Anion Gap 3 L BUN 23 H Creatinine 0.59 L Estim Creat Clear Calc 89 Estimated GFR > 60 Glucose 112 H POC Capillary Glucose 126 H Calcium 8.0 L Magnesium 2.0 Total Bilirubin 1.3 AST 23 ALT 12 Alkaline Phosphatase 125 Total Protein 6.0 L Albumin 2.7 L Urine Color Dark yellow Urine Appearance Turbid H Urine pH 5.5 Ur Specific [place] 1.021 Urine Protein 2+ H Urine Glucose (UA) Negative Urine Ketones Trace H Ur Blood (Man) 2+ H Urine Nitrate Positive Urine Bilirubin 1+ H Urine Urobilinogen 1.0 Ur Leukocyte Esterase 2+ H Add Ur Microanalysis Reviewed Urine RBC >100 H Urine WBC >100 H Urine WBC Clumps Present H Ur Squamous Epith Cells None seen Calcium Oxalate Crystal Present Urine Bacteria None seen Urine Casts 3-5 Urine Yeast (Budding) Present H Quality VTE Prophylaxis VTE prophylaxis: pharmacologic ordered
[2025-02-18 11:35] LABS: Glucose Point of Care 152 mg/dl (65-105)
--- NOTE | 2025-02-18 12:08 | PM.PNGS ---
Progress Note: A&P Assessment and Plan (1) Intra-abdominal abscess: Code(s): K65.1 - Peritoneal abscess Status: Acute Assessment and Plan: Percutaneous drain removed. She has been transitioned to oral antibiotics. WBC remains normal. She is not having any abdominal pain or tenderness on exam. No surgical issues at this time. We will sign off. She can follow-up with Dr. Goins 2 weeks after discharge. Plan I have discussed the patient's case and plan of care with Dr. Graff. Subjective Subjective Date/Time Seen: 02/18/25 12:08 Patient reports: no new complaints, flatus, diarrhea and afebrile Interval history: Denies any abdominal pain. Not eating much and very low motivation for eating/activity/etc. per staff. She became bradycardic yesterday with low potassium, which is being replaced. Exam Const: General: comfortable, no acute distress and tired appearing Orientation/consciousness: patient oriented x3 GI: Inspection: non-distended GI Palp: Yes Soft to palpation, No Tenderness to palpation present (GI), No Guarding due to palpation present (GI) and No Rebound tenderness present Auscultation: normal bowel sounds Objective Data Vital Signs Vital Signs: Vital Signs - 24 hr 02/17/25 14:00 02/17/25 16:00 02/17/25 20:00 Temperature 97.1 F L Pulse Rate 57 L 59 L Respiratory Rate 16 Blood Pressure 142/71 H Pulse Oximetry 98 96 Oxygen Delivery Nasal Cannula Oxygen Flow Rate 1 02/17/25 20:00 02/17/25 21:05 02/17/25 21:35 Temperature 97.7 F Pulse Rate 63 64 Respiratory Rate 20 Blood Pressure 137/67 Pulse Oximetry 96 95 Oxygen Delivery Nasal Cannula Oxygen Flow Rate 1 02/17/25 22:13 02/18/25 00:00 02/18/25 04:00 Temperature Pulse Rate 64 44 L 44 L Respiratory Rate Blood Pressure Pulse Oximetry Oxygen Delivery Oxygen Flow Rate 02/18/25 05:22 02/18/25 08:00 02/18/25 08:27 Temperature 97.5 F L Pulse Rate 52 L 55 L 63 Respiratory Rate 20 Blood Pressure 132/74 Pulse Oximetry 100 96 Oxygen Delivery Nasal Cannula Oxygen Flow Rate 1 02/18/25 09:17 Temperature Pulse Rate 65 Respiratory Rate Blood Pressure Pulse Oximetry Oxygen Delivery Oxygen Flow Rate Intake/Output Intake/Output: Intake & Output 02/15/25 02/16/25 02/17/25 02/18/25 23:59 23:59 23:59 23:59 Intake Total 016 157 9845 760 Output Total 1880 5 2019 400 [facility] [phone] Meds/Results Medications: Active Medications Generic Name Dose Route Start Last Admin Trade Name Freq PRN Reason Stop Dose Admin Acetaminophen 650 mg 01/25/25 20:51 02/11/25 20:36 Acetaminophen 325 Mg Tablet PO 650 mg Q4H PRN Administration Headache Amoxicillin/Clavulanate Potassium 1 tablet 02/15/25 14:00 02/18/25 05:26 Amoxicillin/Clavulanate K 875-125 Mg Tab PO 02/28/25 23:59 1 tablet Q8HR KANDIS Administration Dextrose 12.5 gm 01/25/25 20:46 01/26/25 11:40 Dextrose 50% 25 Gm/50 Ml Syringe IV PUSH 12.5 gm PRN PRN Administration Hypoglycemia Protocol Enoxaparin Sodium 40 mg 02/08/25 09:00 02/18/25 09:17 Enoxaparin 40 Mg/0.4 Ml Syringe SUB-Q 40 mg DAILY KANDIS Administration Fluticasone Propionate 1 spray 02/07/25 11:00 02/18/25 09:18 Fluticasone Propionate 0.05% Na Spr 16 Gm Btl (*Bkc) NASAL 1 spray Q12HR KANDIS Administration Furosemide 40 mg 02/18/25 17:00 Furosemide Inj 40 Mg/4 Ml Vial IV PUSH BID KANDIS Glucagon 1 mg 01/25/25 20:46 Glucagon For Inj 1 Mg Vial IM PRN PRN Hypoglycemia Protocol Glucose 15 gm 01/25/25 20:46 Glucose Oral Gel 15 Gm Of Glucse In 37.5 Gm Tube PO PRN PRN Hypoglycemia Protocol Hydralazine HCl 10 mg 02/06/25 09:58 02/08/25 16:30 Hydralazine Hcl 20 Mg/Ml Vial IV PUSH 10 mg Q4H PRN Administration Blood Pressure - High Dextrose 1,000 mls @ 100 mls/hr 01/25/25 20:46 Dextrose 5% 1,000 Ml IVPB PRN PRN Hypoglycemia Protocol Potassium Chloride 40 meq/ 520 mls @ 130 mls/hr 02/18/25 09:48 02/18/25 10:36 Sodium Chloride IVPB 02/18/25 13:47 130 mls/hr ONCE ONE Administration Insulin Aspart 4 - 8 units 02/12/25 08:00 02/18/25 07:47 Insulin Aspart (*Bkc) 100 Units/Ml SUB-Q Not Given [facility] Protocol Insulin Aspart 2 - 4 units 02/11/25 22:45 02/17/25 22:15 Insulin Aspart (*Bkc) 100 Units/Ml SUB-Q Not Given [facility] Protocol Insulin Glargine 10 units 01/29/25 21:00 02/17/25 22:15 Insulin Glargine (*Bkc) 100 Units/Ml SUB-Q 10 units HS KANDIS Administration Insulin Glargine 20 units 02/06/25 07:55 02/07/25 08:43 Insulin Glargine (*Bkc) 100 Units/Ml SUB-Q 20 units DAILY KANDIS Administration Ipratropium Rueter 0.5 mg 02/15/25 16:33 Ipratropium Br 0.02% Inh Soln 0.5 Mg/2.5 Ml Vial INHALATION Q6HRT PRN Wheezing Lactobacillus Acidophilus 1 pkt 02/03/25 09:00 02/07/25 12:15 Acidophilus Packet 1 Pkt Packet PO Not Given QID KANDIS Levalbuterol HCl 0.63 mg 02/15/25 16:34 Levalbuterol Neb 1.25 Mg/3 Ml INHALATION Q6HRT PRN Wheezing Metoprolol Tartrate 5 mg 02/09/25 23:21 02/09/25 23:57 Metoprolol Tartrate Inj 5 Mg/5 Ml Vial IV PUSH 5 mg Q4H PRN Administration afib >130 Metoprolol Tartrate 37.5 mg 02/17/25 21:00 02/18/25 09:17 Metoprolol Tartrate 12.5 Mg Tablet PO 37.5 mg Q12HR KANDIS Administration Metronidazole 500 mg 02/11/25 12:00 02/18/25 05:26 Metronidazole 500 Mg Tablet PO 02/28/25 23:59 500 mg Q6HR KANDIS Administration Ondansetron HCl 4 mg 01/25/25 20:51 02/06/25 22:13 Ondansetron Inj 4 Mg/2 Ml Vial IV PUSH 4 mg Q6H PRN Administration Nausea And Vomiting Pantoprazole Sodium 40 mg 02/17/25 09:00 02/18/25 09:18 Pantoprazole 40 Mg Tablet PO 40 mg Q12HR KANDIS Administration Spironolactone 50 mg 02/18/25 17:00 Spironolactone 25 Mg Tablet PO BID KANDIS Tamsulosin HCl 0.4 mg 02/12/25 09:00 02/18/25 09:17 Tamsulosin Hcl 0.4 Mg Capsule PO 0.4 mg QAM KANDIS Administration Radiology Results: ITS Impressions Pelvis CT 01/26/25 14:17 IMPRESSION: 1. No significant change in a bilobed gas and fluid containing abscess in the deep pelvis. Patient canceled the planned percutaneous abscess drainage catheter placement due to discomfort despite attempts at repositioning. Abdomen X-Ray 02/07/25 08:16 IMPRESSION: NO ACUTE ABDOMINAL FINDINGS. Catheter Placement CT 02/12/25 14:51 IMPRESSION: 1. Successful CT-guided pelvic abscess drainage catheter placement. 2. 10 mL fluid was sent for aerobic and anaerobic cultures. 3. The catheter will be managed by Dr. Goins. Abdomen/Pelvis CT 02/15/25 08:26 IMPRESSION: 1. Significant decrease in size of a presacral abscess likely related to prior sigmoid diverticulitis post right transgluteal percutaneous abscess drainage catheter placement. 2. Small bilateral pleural effusions with dependent compressive atelectasis in both lungs. 3. Cholelithiasis. 4. Bilateral nonobstructing nephrolithiasis. Modified Barium Swallow 02/15/25 11:41 IMPRESSION: Pharyngeal dysphagia with laryngeal penetration without aspiration. Please correlate with speech pathologist findings and specific feeding recommendations. Chest X-Ray 02/15/25 12:09 IMPRESSION: 1. Small bilateral pleural effusions with associated bibasilar atelectasis and/or pneumonia. Labs Labs: Laboratory Results - last 24 hr 02/17/25 02/17/25 02/17/25 12:11 16:31 19:29 WBC RBC Hgb Hct MCV MCH MCHC RDW Plt Count MPV Immature Gran % (Auto) Neut % (Auto) Lymph % (Auto) [place] % (Auto) Eos % (Auto) Baso % (Auto) Lymph # (Auto) [place] # (Auto) Eos # (Auto) Baso # (Auto) Abs Immat Gran (auto) Absolute Neuts (auto) Absolute Nucleated RBC Band Neutrophils % Nucleated RBC % Platelet Estimate Polychromasia Hypochromasia Anisocytosis Stomatocytes Crenated Cell Schistocytes Sodium Potassium Chloride Carbon Dioxide Anion Gap BUN Creatinine Estim Creat Clear Calc Estimated GFR Glucose POC Capillary Glucose 99 84 127 H Calcium Magnesium Total Bilirubin AST ALT Alkaline Phosphatase Total Protein Albumin Urine Color Urine Appearance Urine pH Ur Specific [place] Urine Protein Urine Glucose (UA) Urine Ketones Ur Blood (Man) Urine Nitrate Urine Bilirubin Urine Urobilinogen Ur Leukocyte Esterase Add Ur Microanalysis Urine RBC Urine WBC Urine WBC Clumps Ur Squamous Epith Cells Calcium Oxalate Crystal Urine Bacteria Urine Casts Urine Yeast (Budding) 02/17/25 02/18/25 02/18/25 20:54 05:09 07:26 WBC 8.0 RBC 3.67 L Hgb 9.3 L Hct 32.6 L MCV 88.8 MCH 25.3 L MCHC 28.5 L RDW 22.4 H Plt Count 284 MPV 11.1 H Immature Gran % (Auto) 0.5 Neut % (Auto) 82.9 H Lymph % (Auto) 8.3 L [place] % (Auto) 5.9 Eos % (Auto) 2.0 Baso % (Auto) 0.4 Lymph # (Auto) 0.66 L [place] # (Auto) 0.5 Eos # (Auto) 0.2 Baso # (Auto) 0.0 Abs Immat Gran (auto) 0.04 H Absolute Neuts (auto) 6.6 Absolute Nucleated RBC 0.000 Band Neutrophils % Not Reportable Nucleated RBC % 0.0 Platelet Estimate Adequate Polychromasia 1+ Hypochromasia 2+ Anisocytosis 2+ Stomatocytes 1+ Crenated Cell 1+ Schistocytes None seen Sodium 147 H Potassium 2.9 L Chloride 106 Carbon Dioxide 38 H Anion Gap 3 L BUN 23 H Creatinine 0.59 L Estim Creat Clear Calc 89 Estimated GFR > 60 Glucose 112 H POC Capillary Glucose 126 H Calcium 8.0 L Magnesium 2.0 Total Bilirubin 1.3 AST 23 ALT 12 Alkaline Phosphatase 125 Total Protein 6.0 L Albumin 2.7 L Urine Color Dark yellow Urine Appearance Turbid H Urine pH 5.5 Ur Specific [place] 1.021 Urine Protein 2+ H Urine Glucose (UA) Negative Urine Ketones Trace H Ur Blood (Man) 2+ H Urine Nitrate Positive Urine Bilirubin 1+ H Urine Urobilinogen 1.0 Ur Leukocyte Esterase 2+ H Add Ur Microanalysis Reviewed Urine RBC >100 H Urine WBC >100 H Urine WBC Clumps Present H Ur Squamous Epith Cells None seen Calcium Oxalate Crystal Present Urine Bacteria None seen Urine Casts 3-5 Urine Yeast (Budding) Present H 02/18/25 11:27 WBC RBC Hgb Hct MCV MCH MCHC RDW Plt Count MPV Immature Gran % (Auto) Neut % (Auto) Lymph % (Auto) [place] % (Auto) Eos % (Auto) Baso % (Auto) Lymph # (Auto) [place] # (Auto) Eos # (Auto) Baso # (Auto) Abs Immat Gran (auto) Absolute Neuts (auto) Absolute Nucleated RBC Band Neutrophils % Nucleated RBC % Platelet Estimate Polychromasia Hypochromasia Anisocytosis Stomatocytes Crenated Cell Schistocytes Sodium Potassium Chloride Carbon Dioxide Anion Gap BUN Creatinine Estim Creat Clear Calc Estimated GFR Glucose POC Capillary Glucose 152 H Calcium Magnesium Total Bilirubin AST ALT Alkaline Phosphatase Total Protein Albumin Urine Color Urine Appearance Urine pH Ur Specific [place] Urine Protein Urine Glucose (UA) Urine Ketones Ur Blood (Man) Urine Nitrate Urine Bilirubin Urine Urobilinogen Ur Leukocyte Esterase Add Ur Microanalysis Urine RBC Urine WBC Urine WBC Clumps Ur Squamous Epith Cells Calcium Oxalate Crystal Urine Bacteria Urine Casts Urine Yeast (Budding)
[2025-02-18 16:04] LABS: Glucose Point of Care 168 mg/dl (65-105)
[2025-02-18] MEDS: SPIRONOLACTONE 25 MG TABLET 50 MG PO (17:08)
[2025-02-18 20:22] LABS: Glucose Point of Care 172 mg/dl (65-105)
[2025-02-18] MEDS: INSULIN GLARGINE (*BKC) 100 UNITS/ML 10 UNITS SUB-Q (21:08)
[2025-02-18] MEDS: ACETAMINOPHEN 325 MG TABLET 650 MG PO (21:49)
[2025-02-19] VITALS (11 sets, daily range): BP systolic 123–130; BP diastolic 66–72; PULSE 46–72; RESP 16–20; TEMP 36.2–36.9; O2SAT 96–100
[2025-02-19] MEDS: AMOXICILLIN/CLAVULANATE K 875-125 MG TAB 1 TABLET PO ×3 (05:23→21:02)
[2025-02-19] MEDS: metroNIDAZOLE 500 MG TABLET PO ×4 (05:23→23:59)
[2025-02-19 05:37] LABS: Basophils Percent Auto 0.2 % (0.2-1.2); Eosinophils Absolute Auto 0.2 K/mm3 (0-0.3); Eosinophils Percent Auto 2.7 % (0-4.4); Hematocrit 30.7 % (37.0-47.0); Immature Granulocyte Absolute 0.05 K/mm3 (0.00-0.031); Immature Granulocyte Percent A 0.6 % (0-0.5); Lymphocytes Absolute Auto 0.63 K/mm3 (0.9-3.2); Lymphocytes Percent Auto 7.7 % (18.3-44.2); Mean Corpuscular HGB Conc 29.3 g/dl (32-36); Mean Corpuscular Hemoglobin 25.4 pg (26-34); Mean Corpuscular Volume 86.7 fl (80-100); Mean Platelet Volume 10.9 fl (7.4-10.4); Monocytes Absolute Auto 0.5 K/mm3 (0.1-0.6); Monocytes Percent Auto 6.6 % (2.6-8.5); Neutrophils Absolute Auto 6.7 K/mm3 (1.3-6.7); Neutrophils Percent Auto 82.2 % (45.5-73.1); Platelet Count Result 272 k/mm3 (150-375); Red Blood Count 3.54 M/mm3 (4.2-5.4); White Blood Count 8.2 K/mm3 (4.5-10.0)
[2025-02-19 05:57] LABS: Anisocytosis 1+; Band Neutrophils Percent 0 % (0-6); Hypochromasia 1+; Platelet Estimate Adequate (Adequate); Schistocytes None Seen
[2025-02-19 05:59] LABS: Alanine Aminotransferase 11 U/L (6-35); Albumin Level 2.4 g/dL (3.5-5.1); Alkaline Phosphatase 119 U/L (38-126); Anion Gap 2 mmol/L (4-12); Aspartate Amino Transferase 22 U/L (14-36); Bilirubin,Total 1.2 mg/dL (0.2-1.3); Blood Urea Nitrogen 19 mg/dL (7-17); Calcium 7.8 mg/dL (8.4-10.2); Carbon Dioxide 39 mmol/L (22-30); Chloride 104 mmol/L (98-107); Estimated CRCL calculation 89 ml/min; Estimated Glomerular Filt Rate > 60; Glucose 87 mg/dL (65-110); Magnesium 1.8 mg/dL (1.6-2.3); Potassium 2.8 mmol/L (3.4-5.0); Sodium 145 mmol/L (137-145)
[2025-02-19] MEDS: KCL 20 MEQ/SW 100 ML 100 ML 50 MEQ IVPB (06:38)
[2025-02-19 07:58] LABS: Glucose Point of Care 83 mg/dl (65-105)
[2025-02-19] MEDS: TAMSULOSIN HCL 0.4 MG CAPSULE PO (08:24)
[2025-02-19] MEDS: SPIRONOLACTONE 25 MG TABLET 50 MG PO ×2 (08:24→18:08)
[2025-02-19] MEDS: ENOXAPARIN 40 MG/0.4 ML SYRINGE SUB-Q (08:24)
[2025-02-19] MEDS: METOPROLOL TARTRATE 12.5 MG TABLET 37.5 MG PO ×2 (08:25→21:02)
[2025-02-19] MEDS: PANTOPRAZOLE 40 MG TABLET PO ×2 (08:26→21:02)
[2025-02-19] MEDS: FUROSEMIDE INJ 40 MG/4 ML VIAL IV PUSH (08:26)
[2025-02-19] MEDS: FLUTICASONE PROPIONATE 0.05% NA SPR 16 GM BTL (*BKC) 1 SPRAY NASAL (08:26)
[2025-02-19] MEDS: POTASSIUM CHLORIDE INJ 40 MEQ in SODIUM CHLORIDE 0.9% IV 500 ML 130 MEQ IVPB (08:27)
--- NOTE | 2025-02-19 09:50 | PCNFU ---
Nutrition Follow-Up Complete: Inadequate energy intake related to swallowing difficulty as evidenced by NPO Goal:Diet textures appropriate for patient needs Pt current is Diabetic, Gluerna shakes BID. Nutrition recommendation: continue with plan of care, encourage po intake Last recorded weight is 103 kg. Bowel Motility: +BM 02/19 Labs Reviewed: Hgb:9.0, HCT:30.7, Alb:2.4, BUN:19, Cr:0.57 Meds Noted: insulin, protonix Skin: WNL Additional Notes: Pt continues on a diabetic diet, Glucerna shakes BID in place, po intake charted at 25-50%. Encourage po intake of meals and supplements. Monitor swallowing ability, intake, wt, labs. Follow up in 5 days.
--- NOTE | 2025-02-19 10:58 | PCOTNOTE ---
Patient refused to participate at this time. Patient states she is so tired, already did PT and is done for today, this is to much .
[2025-02-19 11:10] LABS: Glucose Point of Care 102 mg/dl (65-105)
--- NOTE | 2025-02-19 12:11 | PM.IMPN ---
Progress Note: A&P Assessment and Plan (1) Cardiac arrest: Code(s): I46.9 - Cardiac arrest, cause unspecified Status: Acute Assessment and Plan: Resolved Patient had a cardiac arrest after placement of a percutaneous drain in the pelvic abscess. Could be related to vasovagal, translocation of bacteria, hypoxia as patient was laying flat, hypovolemia, acidosis -successful ROSC x2, intubated in the CT scan suite by ER physician -patient did follow commands post code a continue, so not a candidate for targeted temperature management -will continue to treat underlying cause (2) Septic shock: Code(s): A41.9 - Sepsis, unspecified organism; R65.21 - Severe sepsis with septic shock Status: Acute Assessment and Plan: 02/01:In the ICU patient dropped her blood pressures -patient has been adequately fluid-resuscitated with IV fluids and albumin -01/25: Blood cultures negative x2 -02/02: repeat blood cultures -growing E coli (pansensitive) and Clostridium ramosum -02/02: Abscess fluid culture growing E coli and Bacteroides fragilis 02/03: WBC count up to 64, could be related to septic shock, infection, leukemoid reaction, steroids. Will continue to monitor -WBC count is trending down, patient is afebrile, continue to monitor --continue meropenem, Flagyl 02/04: Discontinue vancomycin -continue doxycycline for 5 days - weaning stress dose steroid -off all pressors (patient was on Levophed, Bobo-Synephrine and vasopressin) -WBC count trending down 02/04: Repeat blood cultures growing Clostridium ramosum, bacteroids fragilis 02/09: Repeat blood culture shows no growth 02/11:Removal of pelvic abscess drain by surgery 02/12: Patient successfully underwent transgluteal percutaneous abscess drain placement with IR. 02/15 abscess culture from 02/12 positive for E coli on Augmentin and Flagyl per Culture to complete 02/20/25 (3) Acute respiratory failure: Qualifiers: Respiratory failure complication: hypoxia Qualified Code(s): J96.01 - Acute respiratory failure with hypoxia Code(s): J96.00 - Acute respiratory failure, unspecified whether with hypoxia or hypercapnia Status: Acute Assessment and Plan: Acute respiratory failure likely related to cardiac arrest possible from septic shock, infection, hypovolemia, translocation of bacteria, acidosis, hypoxia -patient intubated in the CT scan suite by ER physician -02/06: Extubated Accidentally coughed upper ETT was on pressure support ventilation 10/5 for approximately 3 hours and CXR showed bilateral pulm edema with pleural effusion From CHF exacerbation (4) Intra-abdominal abscess: Code(s): K65.1 - Peritoneal abscess Status: Acute Assessment and Plan: Intra-abdominal abscess, status post percutaneous IR drain placement on 02/01/2025 and removal on 02/10/2025.Underwent 02/12 transgluteal percutaneous abscess drain placement by IR -draining purulent material, cultures as above -surgery is following the patient -Continue Meropenem and Metronidazole -culture growing pansensitive E coli; and bacteroides fragilis drain removed Now on Augmentin and Flagyl (5) Diabetes 1.5, managed as type 2: Code(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 hydralazine IV -once patient starts taking p.o. with will add her home antihypertensive (7) Anemia: Qualifiers: Anemia type: other cause Other causes of anemia: chronic disease, other Qualified Code(s): D63.8 - Anemia in other chronic diseases classified elsewhere Code(s): D64.9 - Anemia, unspecified Status: Acute Assessment and Plan: 02/03: Hemoglobin dropped to 6.3. -will transfuse 1 unit of packed RBC -hemoglobin stable -02/05: hemoglobin dropped to 7.0 -status post 1 unit of packed RBC -iron panel reflective of iron deficiency anemia and/or anemia of chronic disease -folic acid and vitamin B12 levels within normal limits -stool occult was positive -appreciate GI evaluation and no recommendations for endoscopy as patient does not have any overt bleeding -hemoglobin is stable, 8.9 continue to monitor (8) Hypernatremia: Code(s): E87.0 - Hyperosmolality and hypernatremia Status: Acute Assessment and Plan: Started Albumin infusion Na 147 today continue diuresis and monitor (9) Atrial fibrillation: Code(s): I48.91 - Unspecified atrial fibrillation Status: Acute Assessment and Plan: Started Metoprolol PO q 6 hrs [id number] score 3(Age,sex,DM) New onset. TSH wnl ECHO:Left ventricular systolic function is normal, estimated at 55-60% Will defer anticoagulation until discussion with Surgery and Cardiology neurology recommended not starting anticogulation due to hematuria Plan Hypokalemia K 2.8 replaced adjusted Spironolactone 50mg bid, decreased lasix to 20mg bid hematuria US positive for RBC > 100 Urology consulted and noted they will follow up outpatient recommended holding full anticoagulation meantime Diastolic CHF exacerbation ECHO showed grade I diastolic function Patient has anasarca decreased Lasix to 20mg bid IV, and Spironolactone 50mg bid monitor DVT prophylaxis on Sq lovenox Patient continues to need continued hospitalization due to Hypokalemia. Subjective Date/time seen: 02/19/25 12:11 Interval history: Comfortable at bedside however more edematous today Still hypokalemic decreased Lasix to 20 mg bid Review of Systems Review of Systems: All systems reviewed & are unremarkable except as noted in HPI and below ROS unobtainable: Yes unobtainable due to endotracheal tube, unobtainable due to medical condition and unobtainable due to mental status Exam Narrative: General: Obese female, currently in no acute distress HEENT:? Pupils equal and reactive, sclera is clear, Airvo in place Neck:? Supple Respiratory:? Coarse breath sounds bilaterally, decreased at bases, no wheezing, adequate air entry Cardiac:? S1-S2 normal, regular rate and rhythm Abdomen:? Soft, nontender, obese, hypoactive bowel sounds, left lower quadrant drain in place with purulent drainage Extremities:? Bilateral upper and lower extremity pitting edema, improving Neuro:? Of Precedex. More awake, alert, able to answer questions, follows simple commands, Skin:? No skin lesions noted Psych:? Depressed affect Const: General: comfortable and no acute distress Other: , female, elderly, disheveled. Nontoxic appearance. HENMT: Face/Nose/Sinus: Normal nares present Mouth: Yes moist mucous membranes Eyes: General: appearance normal, both eyes and all related structures Sclera: sclerae normal Pupils: Equal, round and reactive pupils present EOM: EOMs intact bilaterally Resp: Effort & Inspection: normal respiratory effort Auscultation: clear to auscultation bilaterally Cardio: Rate: regular rate Rhythm: regular rhythm Other: S1-S2 present without murmur, rub, ectopy GI: Other: tender in the lower quadrants. hyperactive bowel sounds in the upper quadrants, normoactive in the lower. Nondistended, soft. Skin: General skin exam: normal color and no rashes or lesions noted Wounds: no wounds Neuro: Cranial nerves: Yes Equal, round and reactive pupils present Speech: normal speech Motor exam (neuro): 5/5 motor strength present throughout Sensory Exam: normal sensation Other: A&O x4 Extrem: General: normal to inspection Psych: Mental Status: mental status grossly normal Affect: normal affect Other: Malodorous, disheveled. Fair insight and judgment, pleasant. Objective Data Vital Signs Vital Signs: Vital Signs - 24 hr 02/18/25 14:00 02/18/25 16:00 02/18/25 20:00 Temperature 97 F L Pulse Rate 56 L 61 Respiratory Rate 20 Blood Pressure 124/64 Pulse Oximetry 100 97 Oxygen Delivery Nasal Cannula Oxygen Flow Rate 1 02/18/25 20:00 02/18/25 21:08 02/19/25 00:00 Temperature 97.8 F Pulse Rate 63 63 46 L Respiratory Rate 18 Blood Pressure 127/65 Pulse Oximetry 97 Oxygen Delivery Oxygen Flow Rate 02/19/25 04:00 02/19/25 05:34 02/19/25 08:00 Temperature 97.1 F L Pulse Rate 57 L 57 L Respiratory Rate 20 Blood Pressure 129/67 Pulse Oximetry 97 100 Oxygen Delivery Nasal Cannula Oxygen Flow Rate 1 02/19/25 08:00 02/19/25 08:25 Temperature Pulse Rate 52 L 63 Respiratory Rate Blood Pressure Pulse Oximetry Oxygen Delivery Oxygen Flow Rate Intake/Output Intake/Output: Intake & Output 02/16/25 02/17/25 02/18/25 02/19/25 23:59 23:59 23:59 23:59 Intake Total 400 1067 1278 238 Output Total 2064 2019 3749 350 Balance -1665 -953 -2472 -112 Meds/Results Medications: Active Medications Generic Name Dose Route Start Last Admin Trade Name Freq PRN Reason Stop Dose Admin Acetaminophen 650 mg 01/25/25 20:51 02/18/25 21:49 Acetaminophen 325 Mg Tablet PO 650 mg Q4H PRN Administration Headache Amoxicillin/Clavulanate Potassium 1 tablet 02/15/25 14:00 02/19/25 05:23 Amoxicillin/Clavulanate K 875-125 Mg Tab PO 02/28/25 23:59 1 tablet Q8HR KANIDS Administration Dextrose 12.5 gm 01/25/25 20:46 01/26/25 11:40 Dextrose 50% 25 Gm/50 Ml Syringe IV PUSH 12.5 gm PRN PRN Administration Hypoglycemia Protocol Enoxaparin Sodium 40 mg 02/08/25 09:00 02/19/25 08:24 Enoxaparin 40 Mg/0.4 Ml Syringe SUB-Q 40 mg DAILY KANDIS Administration Fluticasone Propionate 1 spray 02/07/25 11:00 02/19/25 08:26 Fluticasone Propionate 0.05% Na Spr 16 Gm Btl (*Bkc) NASAL 1 spray Q12HR KANDIS Administration Furosemide 20 mg 02/19/25 17:00 Furosemide Inj 40 Mg/4 Ml Vial IV PUSH BID KANDIS Glucagon 1 mg 01/25/25 20:46 Glucagon For Inj 1 Mg Vial IM PRN PRN Hypoglycemia Protocol Glucose 15 gm 01/25/25 20:46 Glucose Oral Gel 15 Gm Of Glucse In 37.5 Gm Tube PO PRN PRN Hypoglycemia Protocol Hydralazine HCl 10 mg 02/06/25 09:58 02/08/25 16:30 Hydralazine Hcl 20 Mg/Ml Vial IV PUSH 10 mg Q4H PRN Administration Blood Pressure - High Dextrose 1,000 mls @ 100 mls/hr 01/25/25 20:46 Dextrose 5% 1,000 Ml IVPB PRN PRN Hypoglycemia Protocol Insulin Aspart 4 - 8 units 02/12/25 08:00 02/19/25 11:21 Insulin Aspart (*Bkc) 100 Units/Ml SUB-Q Not Given TIDWM KANDIS Protocol Insulin Aspart 2 - 4 units 02/11/25 22:45 02/18/25 21:09 Insulin Aspart (*Bkc) 100 Units/Ml SUB-Q Not Given HS KANDIS Protocol Insulin Glargine 10 units 01/29/25 21:00 02/18/25 21:08 Insulin Glargine (*Bkc) 100 Units/Ml SUB-Q 10 units HS KANDIS Administration Insulin Glargine 20 units 02/06/25 07:55 02/07/25 08:43 Insulin Glargine (*Bkc) 100 Units/Ml SUB-Q 20 units DAILY KANDIS Administration Ipratropium [place] 0.5 mg 02/15/25 16:33 Ipratropium Br 0.02% Inh Soln 0.5 Mg/2.5 Ml Vial INHALATION Q6HRT PRN Wheezing Lactobacillus Acidophilus 1 pkt 02/03/25 09:00 02/07/25 12:15 Acidophilus Packet 1 Pkt Packet PO Not Given QID KANDIS Levalbuterol HCl 0.63 mg 02/15/25 16:34 Levalbuterol Neb 1.25 Mg/3 Ml INHALATION Q6HRT PRN Wheezing Metoprolol Tartrate 5 mg 02/09/25 23:21 02/09/25 23:57 Metoprolol Tartrate Inj 5 Mg/5 Ml Vial IV PUSH 5 mg Q4H PRN Administration afib >130 Metoprolol Tartrate 37.5 mg 02/17/25 21:00 02/19/25 08:25 Metoprolol Tartrate 12.5 Mg Tablet PO 37.5 mg Q12HR KANDIS Administration Metronidazole 500 mg 02/11/25 12:00 02/19/25 05:23 Metronidazole 500 Mg Tablet PO 02/28/25 23:59 500 mg Q6HR KANDIS Administration Ondansetron HCl 4 mg 01/25/25 20:51 02/06/25 22:13 Ondansetron Inj 4 Mg/2 Ml Vial IV PUSH 4 mg Q6H PRN Administration Nausea And Vomiting Pantoprazole Sodium 40 mg 02/17/25 09:00 02/19/25 08:26 Pantoprazole 40 Mg Tablet PO 40 mg Q12HR KANDIS Administration Spironolactone 50 mg 02/18/25 17:00 02/19/25 08:24 Spironolactone 25 Mg Tablet PO 50 mg BID KANDIS Administration Tamsulosin HCl 0.4 mg 02/12/25 09:00 02/19/25 08:24 Tamsulosin Hcl 0.4 Mg Capsule PO 0.4 mg QAM KANDIS Administration Radiology Results: ITS Impressions Pelvis CT 01/26/25 14:17 IMPRESSION: 1. No significant change in a bilobed gas and fluid containing abscess in the deep pelvis. Patient canceled the planned percutaneous abscess drainage catheter placement due to discomfort despite attempts at repositioning. Abdomen X-Ray 02/07/25 08:16 IMPRESSION: NO ACUTE ABDOMINAL FINDINGS. Catheter Placement CT 02/12/25 14:51 IMPRESSION: 1. Successful CT-guided pelvic abscess drainage catheter placement. 2. 10 mL fluid was sent for aerobic and anaerobic cultures. 3. The catheter will be managed by Dr. Goins. Abdomen/Pelvis CT 02/15/25 08:26 IMPRESSION: 1. Significant decrease in size of a presacral abscess likely related to prior sigmoid diverticulitis post right transgluteal percutaneous abscess drainage catheter placement. 2. Small bilateral pleural effusions with dependent compressive atelectasis in both lungs. 3. Cholelithiasis. 4. Bilateral nonobstructing nephrolithiasis. Modified Barium Swallow 02/15/25 11:41 IMPRESSION: Pharyngeal dysphagia with laryngeal penetration without aspiration. Please correlate with speech pathologist findings and specific feeding recommendations. Chest X-Ray 02/15/25 12:09 IMPRESSION: 1. Small bilateral pleural effusions with associated bibasilar atelectasis and/or pneumonia. Labs Labs: Laboratory Results - last 24 hr 02/18/25 02/18/25 02/19/25 16:01 20:17 05:20 WBC 8.2 RBC 3.54 L Hgb 9.0 L Hct 30.7 L MCV 86.7 MCH 25.4 L MCHC 29.3 L RDW 23.0 H Plt Count 272 MPV 10.9 H Immature Gran % (Auto) 0.6 H Neut % (Auto) 82.2 H Lymph % (Auto) 7.7 L [place] % (Auto) 6.6 Eos % (Auto) 2.7 Baso % (Auto) 0.2 Lymph # (Auto) 0.63 L [place] # (Auto) 0.5 Eos # (Auto) 0.2 Baso # (Auto) 0.0 Abs Immat Gran (auto) 0.05 H Absolute Neuts (auto) 6.7 Absolute Nucleated RBC 0.000 Band Neutrophils % 0 Nucleated RBC % 0.0 Platelet Estimate Adequate Hypochromasia 1+ Anisocytosis 1+ Schistocytes None seen Sodium 145 Potassium 2.8 L* Chloride 104 Carbon Dioxide 39 H Anion Gap 2 L BUN 19 H Creatinine 0.57 L Estim Creat Clear Calc 89 Estimated GFR > 60 Glucose 87 POC Capillary Glucose 168 H 172 H Calcium 7.8 L Magnesium 1.8 Total Bilirubin 1.2 AST 22 ALT 11 Alkaline Phosphatase 119 Total Protein 6.0 L Albumin 2.4 L 02/19/25 02/19/25 07:33 11:04 WBC RBC Hgb Hct MCV MCH MCHC RDW Plt Count MPV Immature Gran % (Auto) Neut % (Auto) Lymph % (Auto) [place] % (Auto) Eos % (Auto) Baso % (Auto) Lymph # (Auto) [place] # (Auto) Eos # (Auto) Baso # (Auto) Abs Immat Gran (auto) Absolute Neuts (auto) Absolute Nucleated RBC Band Neutrophils % Nucleated RBC % Platelet Estimate Hypochromasia Anisocytosis Schistocytes Sodium Potassium Chloride Carbon Dioxide Anion Gap BUN Creatinine Estim Creat Clear Calc Estimated GFR Glucose POC Capillary Glucose 83 102 Calcium Magnesium Total Bilirubin AST ALT Alkaline Phosphatase Total Protein Albumin Quality VTE Prophylaxis VTE prophylaxis: pharmacologic ordered
[2025-02-19] MEDS: ALBUMIN HUMAN 25% 25 GM/100 ML 100 ML IVPB (13:51)
[2025-02-19] MEDS: ACETAMINOPHEN 325 MG TABLET 650 MG PO (13:51)
[2025-02-19 16:41] LABS: Glucose Point of Care 189 mg/dl (65-105)
[2025-02-19] MEDS: FUROSEMIDE INJ 40 MG/4 ML VIAL 20 MG IV PUSH (18:08)
[2025-02-19 20:23] LABS: Glucose Point of Care 136 mg/dl (65-105)
[2025-02-19] MEDS: INSULIN GLARGINE (*BKC) 100 UNITS/ML 10 UNITS SUB-Q (21:01)
[2025-02-20] VITALS (11 sets, daily range): BP systolic 103–149; BP diastolic 50–76; PULSE 48–113; RESP 12–18; TEMP 36.1–36.8; O2SAT 95–97
[2025-02-20] MEDS: AMOXICILLIN/CLAVULANATE K 875-125 MG TAB 1 TABLET PO ×3 (05:13→20:37)
[2025-02-20] MEDS: metroNIDAZOLE 500 MG TABLET PO ×4 (05:13→23:45)
[2025-02-20 06:24] LABS: Basophils Percent Auto 0.3 % (0.2-1.2); Eosinophils Absolute Auto 0.2 K/mm3 (0-0.3); Eosinophils Percent Auto 2.1 % (0-4.4); Hematocrit 29.9 % (37.0-47.0); Hemoglobin 8.7 g/dL (12.0-15.0); Immature Granulocyte Absolute 0.03 K/mm3 (0.00-0.031); Immature Granulocyte Percent A 0.4 % (0-0.5); Lymphocytes Absolute Auto 0.61 K/mm3 (0.9-3.2); Lymphocytes Percent Auto 7.7 % (18.3-44.2); Mean Corpuscular HGB Conc 29.1 g/dl (32-36); Mean Corpuscular Hemoglobin 25.9 pg (26-34); Mean Platelet Volume 11.4 fl (7.4-10.4); Monocytes Absolute Auto 0.5 K/mm3 (0.1-0.6); Monocytes Percent Auto 5.9 % (2.6-8.5); Neutrophils Absolute Auto 6.7 K/mm3 (1.3-6.7); Neutrophils Percent Auto 83.6 % (45.5-73.1); Platelet Count Result 263 k/mm3 (150-375); Red Blood Count 3.36 M/mm3 (4.2-5.4); Red Cell Distribution Width 23.2 % (11.5-14.5)
[2025-02-20 06:52] LABS: Alanine Aminotransferase 9 U/L (6-35); Albumin Level 2.6 g/dL (3.5-5.1); Alkaline Phosphatase 110 U/L (38-126); Anion Gap 1 mmol/L (4-12); Aspartate Amino Transferase 35 U/L (14-36); Bilirubin,Total 1.3 mg/dL (0.2-1.3); Blood Urea Nitrogen 17 mg/dL (7-17); Calcium 7.9 mg/dL (8.4-10.2); Carbon Dioxide 39 mmol/L (22-30); Chloride 104 mmol/L (98-107); Estimated CRCL calculation 97 ml/min; Estimated Glomerular Filt Rate > 60; Glucose 69 mg/dL (65-110); Magnesium 1.9 mg/dL (1.6-2.3); Potassium 3.2 mmol/L (3.4-5.0); Sodium 144 mmol/L (137-145)
[2025-02-20 06:59] LABS: Hypochromasia 1+; Platelet Estimate Adequate (Adequate)
[2025-02-20 07:00] LABS: Anisocytosis 1+; Schistocytes Rare; Target Cells 1+
[2025-02-20 07:50] LABS: Glucose Point of Care 89 mg/dl (65-105)
[2025-02-20] MEDS: SPIRONOLACTONE 25 MG TABLET 50 MG PO ×2 (09:15→16:57)
[2025-02-20] MEDS: METOPROLOL TARTRATE 12.5 MG TABLET 37.5 MG PO ×2 (09:15→20:36)
[2025-02-20] MEDS: FUROSEMIDE INJ 40 MG/4 ML VIAL 20 MG IV PUSH (09:15)
[2025-02-20] MEDS: ENOXAPARIN 40 MG/0.4 ML SYRINGE SUB-Q (09:15)
[2025-02-20] MEDS: PANTOPRAZOLE 40 MG TABLET PO ×2 (09:15→20:37)
[2025-02-20] MEDS: TAMSULOSIN HCL 0.4 MG CAPSULE PO (09:16)
[2025-02-20] MEDS: FLUTICASONE PROPIONATE 0.05% NA SPR 16 GM BTL (*BKC) 1 SPRAY NASAL ×2 (09:19→20:37)
--- NOTE | 2025-02-20 09:59 | P.PNIM_ITS ---
Progress Note: A&P Assessment and Plan (1) Cardiac arrest: Code(s): I46.9 - Cardiac arrest, cause unspecified Status: Acute Assessment and Plan: Resolved Patient had a cardiac arrest after placement of a percutaneous drain in the pelvic abscess. Could be related to vasovagal, translocation of bacteria, hypoxia as patient was laying flat, hypovolemia, acidosis -successful ROSC x2, intubated in the CT scan suite by ER physician -patient did follow commands post code a continue, so not a candidate for targeted temperature management -will continue to treat underlying cause (2) Septic shock: Code(s): A41.9 - Sepsis, unspecified organism; R65.21 - Severe sepsis with septic shock Status: Acute Assessment and Plan: 02/01:In the ICU patient dropped her blood pressures -patient has been adequately fluid-resuscitated with IV fluids and albumin -01/25: Blood cultures negative x2 -02/02: repeat blood cultures -growing E coli (pansensitive) and Clostridium ramosum -02/02: Abscess fluid culture growing E coli and Bacteroides fragilis 02/03: WBC count up to 64, could be related to septic shock, infection, leukemoid reaction, steroids. Will continue to monitor -WBC count is trending down, patient is afebrile, continue to monitor --continue meropenem, Flagyl 02/04: Discontinue vancomycin -continue doxycycline for 5 days - weaning stress dose steroid -off all pressors (patient was on Levophed, Bobo-Synephrine and vasopressin) -WBC count trending down 02/04: Repeat blood cultures growing Clostridium ramosum, bacteroids fragilis 02/09: Repeat blood culture shows no growth 02/11:Removal of pelvic abscess drain by surgery 02/12: Patient successfully underwent transgluteal percutaneous abscess drain placement with IR. 02/15 abscess culture from 02/12 positive for E coli on Augmentin and Flagyl per Culture to complete 02/20/25 (3) Acute respiratory failure: Qualifiers: Respiratory failure complication: hypoxia Qualified Code(s): J96.01 - Acute respiratory failure with hypoxia Code(s): J96.00 - Acute respiratory failure, unspecified whether with hypoxia or hypercapnia Status: Acute Assessment and Plan: Acute respiratory failure likely related to cardiac arrest possible from septic shock, infection, hypovolemia, translocation of bacteria, acidosis, hypoxia -patient intubated in the CT scan suite by ER physician -02/06: Extubated Accidentally coughed upper ETT was on pressure support ventilation 10/5 for approximately 3 hours and CXR showed bilateral pulm edema with pleural effusion From CHF exacerbation (4) Intra-abdominal abscess: Code(s): K65.1 - Peritoneal abscess Status: Acute Assessment and Plan: Intra-abdominal abscess, status post percutaneous IR drain placement on 02/01/2025 and removal on 02/10/2025.Underwent 02/12 transgluteal percutaneous abscess drain placement by IR -draining purulent material, cultures as above -surgery is following the patient -Continue Meropenem and Metronidazole -culture growing pansensitive E coli; and bacteroides fragilis drain removed Now on Augmentin and Flagyl (5) Diabetes 1.5, managed as type 2: Code(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 hydralazine IV -once patient starts taking p.o. with will add her home antihypertensive (7) Anemia: Qualifiers: Anemia type: other cause Other causes of anemia: chronic disease, other Qualified Code(s): D63.8 - Anemia in other chronic diseases classified elsewhere Code(s): D64.9 - Anemia, unspecified Status: Acute Assessment and Plan: 02/03: Hemoglobin dropped to 6.3. -will transfuse 1 unit of packed RBC -hemoglobin stable -02/05: hemoglobin dropped to 7.0 -status post 1 unit of packed RBC -iron panel reflective of iron deficiency anemia and/or anemia of chronic disease -folic acid and vitamin B12 levels within normal limits -stool occult was positive -appreciate GI evaluation and no recommendations for endoscopy as patient does not have any overt bleeding -hemoglobin is stable, 8.9 continue to monitor (8) Hypernatremia: Code(s): E87.0 - Hyperosmolality and hypernatremia Status: Acute Assessment and Plan: Started Albumin infusion Na 147 today continue diuresis and monitor (9) Atrial fibrillation: Code(s): I48.91 - Unspecified atrial fibrillation Status: Acute Assessment and Plan: Started Metoprolol PO q 6 hrs [id number] score 3(Age,sex,DM) New onset. TSH wnl ECHO:Left ventricular systolic function is normal, estimated at 55-60% Will defer anticoagulation until discussion with Surgery and Cardiology neurology recommended not starting anticogulation due to hematuria Plan Hypokalemia K 3.2, improving replaced on Spironolactone hematuria US positive for RBC > 100 Urology consulted and noted they will follow up outpatient recommended holding full anticoagulation meantime Diastolic CHF exacerbation ECHO showed grade I diastolic function Patient has anasarca Lasix 40mg bid, and Spironolactone 50mg bid monitor DVT prophylaxis on Sq lovenox HYpokela Subjective Date/time seen: 02/20/25 09:59 Interval history: COmfortable at bedside Switched Lasix to PO, discharge tomorrow Review of Systems Review of Systems: All systems reviewed & are unremarkable except as noted in HPI and below ROS unobtainable: Yes unobtainable due to endotracheal tube, unobtainable due to medical condition and unobtainable due to mental status Exam Narrative: General: Obese female, currently in no acute distress HEENT:? Pupils equal and reactive, sclera is clear, Airvo in place Neck:? Supple Respiratory:? Coarse breath sounds bilaterally, decreased at bases, no wheezing, adequate air entry Cardiac:? S1-S2 normal, regular rate and rhythm Abdomen:? Soft, nontender, obese, hypoactive bowel sounds, left lower quadrant drain in place with purulent drainage Extremities:? Bilateral upper and lower extremity pitting edema, improving Neuro:? Of Precedex. More awake, alert, able to answer questions, follows simple commands, Skin:? No skin lesions noted Psych:? Depressed affect Const: General: comfortable and no acute distress Other: , female, elderly, disheveled. Nontoxic appearance. HENMT: Face/Nose/Sinus: Normal nares present Mouth: Yes moist mucous membranes Eyes: General: appearance normal, both eyes and all related structures Sclera: sclerae normal Pupils: Equal, round and reactive pupils present EOM: EOMs intact bilaterally Resp: Effort & Inspection: normal respiratory effort Auscultation: clear to auscultation bilaterally Cardio: Rate: regular rate Rhythm: regular rhythm Other: S1-S2 present without murmur, rub, ectopy GI: Other: tender in the lower quadrants. hyperactive bowel sounds in the upper quadrants, normoactive in the lower. Nondistended, soft. Skin: General skin exam: normal color and no rashes or lesions noted Wounds: no wounds Neuro: Cranial nerves: Yes Equal, round and reactive pupils present Speech: normal speech Motor exam (neuro): 5/5 motor strength present throughout Sensory Exam: normal sensation Other: A&O x4 Extrem: General: normal to inspection Psych: Mental Status: mental status grossly normal Affect: normal affect Other: Malodorous, disheveled. Fair insight and judgment, pleasant. Objective Data Vital Signs Vital Signs: Vital Signs - 24 hr 02/19/25 12:00 02/19/25 14:00 02/19/25 16:00 Temperature 97.2 F L Pulse Rate 57 L 57 L 66 Respiratory Rate 18 Blood Pressure 130/72 Pulse Oximetry 98 Oxygen Delivery 02/19/25 20:00 02/19/25 20:00 02/19/25 20:10 Temperature 98.5 F Pulse Rate 68 68 Respiratory Rate 16 Blood Pressure 123/66 Pulse Oximetry 96 Oxygen Delivery Room Air 02/19/25 21:02 02/20/25 00:00 02/20/25 04:00 Temperature Pulse Rate 72 53 L 53 L Respiratory Rate Blood Pressure Pulse Oximetry Oxygen Delivery 02/20/25 06:00 02/20/25 08:00 02/20/25 08:00 Temperature Pulse Rate 60 58 L Respiratory Rate 16 Blood Pressure 133/64 Pulse Oximetry 97 Oxygen Delivery Room Air 02/20/25 09:15 Temperature Pulse Rate 58 L Respiratory Rate Blood Pressure Pulse Oximetry Oxygen Delivery Intake/Output Intake/Output: Intake & Output 02/17/25 02/18/25 02/19/25 02/20/25 23:59 23:59 23:59 23:59 Intake Total 1067 1278 458 100 Output Total 2019 1440 1550 700 [facility] -[phone] Meds/Results Medications: Active Medications Generic Name Dose Route Start Last Admin Trade Name Freq PRN Reason Stop Dose Admin Acetaminophen 650 mg 01/25/25 20:51 02/19/25 13:51 Acetaminophen 325 Mg Tablet PO 650 mg Q4H PRN Administration Headache Amoxicillin/Clavulanate Potassium 1 tablet 02/15/25 14:00 02/20/25 05:13 Amoxicillin/Clavulanate K 875-125 Mg Tab PO 02/28/25 23:59 1 tablet Q8HR KANDIS Administration Dextrose 12.5 gm 01/25/25 20:46 01/26/25 11:40 Dextrose 50% 25 Gm/50 Ml Syringe IV PUSH 12.5 gm PRN PRN Administration Hypoglycemia Protocol Enoxaparin Sodium 40 mg 02/08/25 09:00 02/20/25 09:15 Enoxaparin 40 Mg/0.4 Ml Syringe SUB-Q 40 mg DAILY KANDIS Administration Fluticasone Propionate 1 spray 02/07/25 11:00 02/20/25 09:19 Fluticasone Propionate 0.05% Na Spr 16 Gm Btl (*Bkc) NASAL 1 spray Q12HR KANDIS Administration Furosemide 20 mg 02/19/25 17:00 02/20/25 09:15 Furosemide Inj 40 Mg/4 Ml Vial IV PUSH 20 mg BID KANDIS Administration Furosemide 40 mg 02/20/25 17:00 Furosemide 40 Mg Tablet PO BID KANDIS Glucagon 1 mg 01/25/25 20:46 Glucagon For Inj 1 Mg Vial IM PRN PRN Hypoglycemia Protocol Glucose 15 gm 01/25/25 20:46 Glucose Oral Gel 15 Gm Of Glucse In 37.5 Gm Tube PO PRN PRN Hypoglycemia Protocol Hydralazine HCl 10 mg 02/06/25 09:58 02/08/25 16:30 Hydralazine Hcl 20 Mg/Ml Vial IV PUSH 10 mg Q4H PRN Administration Blood Pressure - High Dextrose 1,000 mls @ 100 mls/hr 01/25/25 20:46 Dextrose 5% 1,000 Ml IVPB PRN PRN Hypoglycemia Protocol Insulin Aspart 4 - 8 units 02/12/25 08:00 02/20/25 08:51 Insulin Aspart (*Bkc) 100 Units/Ml SUB-Q Not Given TIDWM KANDIS Protocol Insulin Aspart 2 - 4 units 02/11/25 22:45 02/19/25 20:31 Insulin Aspart (*Bkc) 100 Units/Ml SUB-Q Not Given HS KANDIS Protocol Insulin Glargine 10 units 01/29/25 21:00 02/19/25 21:01 Insulin Glargine (*Bkc) 100 Units/Ml SUB-Q 10 units HS KANDIS Administration Insulin Glargine 20 units 02/06/25 07:55 02/07/25 08:43 Insulin Glargine (*Bkc) 100 Units/Ml SUB-Q 20 units DAILY KANDIS Administration Ipratropium [place] 0.5 mg 02/15/25 16:33 Ipratropium Br 0.02% Inh Soln 0.5 Mg/2.5 Ml Vial INHALATION Q6HRT PRN Wheezing Lactobacillus Acidophilus 1 pkt 02/03/25 09:00 02/07/25 12:15 Acidophilus Packet 1 Pkt Packet PO Not Given QID KANDIS Levalbuterol HCl 0.63 mg 02/15/25 16:34 Levalbuterol Neb 1.25 Mg/3 Ml INHALATION Q6HRT PRN Wheezing Metoprolol Tartrate 5 mg 02/09/25 23:21 02/09/25 23:57 Metoprolol Tartrate Inj 5 Mg/5 Ml Vial IV PUSH 5 mg Q4H PRN Administration afib >130 Metoprolol Tartrate 37.5 mg 02/17/25 21:00 02/20/25 09:15 Metoprolol Tartrate 12.5 Mg Tablet PO 37.5 mg Q12HR KANDIS Administration Metronidazole 500 mg 02/11/25 12:00 02/20/25 05:13 Metronidazole 500 Mg Tablet PO 02/28/25 23:59 500 mg Q6HR KANDIS Administration Ondansetron HCl 4 mg 01/25/25 20:51 02/06/25 22:13 Ondansetron Inj 4 Mg/2 Ml Vial IV PUSH 4 mg Q6H PRN Administration Nausea And Vomiting Pantoprazole Sodium 40 mg 02/17/25 09:00 02/20/25 09:15 Pantoprazole 40 Mg Tablet PO 40 mg Q12HR KANDIS Administration Spironolactone 50 mg 02/18/25 17:00 02/20/25 09:15 Spironolactone 25 Mg Tablet PO 50 mg BID KANDIS Administration Tamsulosin HCl 0.4 mg 02/12/25 09:00 02/20/25 09:16 Tamsulosin Hcl 0.4 Mg Capsule PO 0.4 mg QAM KANDIS Administration Radiology Results: ITS Impressions Pelvis CT 01/26/25 14:17 IMPRESSION: 1. No significant change in a bilobed gas and fluid containing abscess in the deep pelvis. Patient canceled the planned percutaneous abscess drainage catheter placement due to discomfort despite attempts at repositioning. Abdomen X-Ray 02/07/25 08:16 IMPRESSION: NO ACUTE ABDOMINAL FINDINGS. Catheter Placement CT 02/12/25 14:51 IMPRESSION: 1. Successful CT-guided pelvic abscess drainage catheter placement. 2. 10 mL fluid was sent for aerobic and anaerobic cultures. 3. The catheter will be managed by Dr. Goins. Abdomen/Pelvis CT 02/15/25 08:26 IMPRESSION: 1. Significant decrease in size of a presacral abscess likely related to prior sigmoid diverticulitis post right transgluteal percutaneous abscess drainage catheter placement. 2. Small bilateral pleural effusions with dependent compressive atelectasis in both lungs. 3. Cholelithiasis. 4. Bilateral nonobstructing nephrolithiasis. Modified Barium Swallow 02/15/25 11:41 IMPRESSION: Pharyngeal dysphagia with laryngeal penetration without aspiration. Please correlate with speech pathologist findings and specific feeding recommendations. Chest X-Ray 02/15/25 12:09 IMPRESSION: 1. Small bilateral pleural effusions with associated bibasilar atelectasis and/or pneumonia. Labs Labs: Laboratory Results - last 24 hr 02/19/25 02/19/25 02/19/25 11:04 16:38 20:06 WBC RBC Hgb Hct MCV MCH MCHC RDW Plt Count MPV Immature Gran % (Auto) Neut % (Auto) Lymph % (Auto) [place] % (Auto) Eos % (Auto) Baso % (Auto) Lymph # (Auto) [place] # (Auto) Eos # (Auto) Baso # (Auto) Abs Immat Gran (auto) Absolute Neuts (auto) Absolute Nucleated RBC Band Neutrophils % Nucleated RBC % Platelet Estimate Hypochromasia Anisocytosis Target Cells Schistocytes Sodium Potassium Chloride Carbon Dioxide Anion Gap BUN Creatinine Estim Creat Clear Calc Estimated GFR Glucose POC Capillary Glucose 102 189 H 136 H Calcium Magnesium Total Bilirubin AST ALT Alkaline Phosphatase Total Protein Albumin 02/20/25 02/20/25 05:17 07:41 WBC 8.0 RBC 3.36 L Hgb 8.7 L Hct 29.9 L MCV 89.0 MCH 25.9 L MCHC 29.1 L RDW 23.2 H Plt Count 263 MPV 11.4 H Immature Gran % (Auto) 0.4 Neut % (Auto) 83.6 H Lymph % (Auto) 7.7 L [place] % (Auto) 5.9 Eos % (Auto) 2.1 Baso % (Auto) 0.3 Lymph # (Auto) 0.61 L [place] # (Auto) 0.5 Eos # (Auto) 0.2 Baso # (Auto) 0.0 Abs Immat Gran (auto) 0.03 Absolute Neuts (auto) 6.7 Absolute Nucleated RBC 0.000 Band Neutrophils % Not Reportable Nucleated RBC % 0.0 Platelet Estimate Adequate Hypochromasia 1+ Anisocytosis 1+ Target Cells 1+ Schistocytes Rare Sodium 144 Potassium 3.2 L Chloride 104 Carbon Dioxide 39 H Anion Gap 1 L BUN 17 Creatinine 0.51 L Estim Creat Clear Calc 97 Estimated GFR > 60 Glucose 69 POC Capillary Glucose 89 Calcium 7.9 L Magnesium 1.9 Total Bilirubin 1.3 AST 35 ALT 9 Alkaline Phosphatase 110 Total Protein 6.0 L Albumin 2.6 L Quality VTE Prophylaxis VTE prophylaxis: pharmacologic ordered
[2025-02-20 11:54] LABS: Glucose Point of Care 111 mg/dl (65-105)
[2025-02-20] MEDS: FUROSEMIDE 40 MG TABLET PO (16:57)
[2025-02-20 17:13] LABS: Glucose Point of Care 143 mg/dl (65-105)
[2025-02-20] MEDS: INSULIN GLARGINE (*BKC) 100 UNITS/ML 10 UNITS SUB-Q (20:34)
[2025-02-20] MEDS: ACETAMINOPHEN 325 MG TABLET 650 MG PO (20:36)
[2025-02-20 20:55] LABS: Glucose Point of Care 198 mg/dl (65-105)
[2025-02-21] VITALS (11 sets, daily range): BP systolic 118–130; BP diastolic 64–87; PULSE 72–102; RESP 16–20; TEMP 36.6; O2SAT 93–98
[2025-02-21] MEDS: AMOXICILLIN/CLAVULANATE K 875-125 MG TAB 1 TABLET PO ×3 (05:54→20:55)
[2025-02-21] MEDS: metroNIDAZOLE 500 MG TABLET PO ×3 (05:54→17:07)
[2025-02-21 07:50] LABS: Glucose Point of Care 133 mg/dl (65-105)
[2025-02-21] MEDS: ENOXAPARIN 40 MG/0.4 ML SYRINGE SUB-Q (08:31)
[2025-02-21] MEDS: PANTOPRAZOLE 40 MG TABLET PO ×2 (08:32→20:55)
[2025-02-21] MEDS: TAMSULOSIN HCL 0.4 MG CAPSULE PO (08:32)
[2025-02-21] MEDS: SPIRONOLACTONE 25 MG TABLET 50 MG PO ×2 (08:32→17:07)
[2025-02-21] MEDS: METOPROLOL TARTRATE 12.5 MG TABLET 37.5 MG PO ×2 (08:33→20:55)
[2025-02-21] MEDS: FUROSEMIDE 40 MG TABLET PO (08:37)
[2025-02-21] MEDS: FLUTICASONE PROPIONATE 0.05% NA SPR 16 GM BTL (*BKC) 1 SPRAY NASAL ×2 (08:39→21:01)
[2025-02-21 08:52] LABS: Alanine Aminotransferase 11 U/L (6-35); Albumin Level 2.7 g/dL (3.5-5.1); Alkaline Phosphatase 151 U/L (38-126); Anion Gap 3 mmol/L (4-12); Aspartate Amino Transferase 23 U/L (14-36); Bilirubin,Total 1.2 mg/dL (0.2-1.3); Blood Urea Nitrogen 14 mg/dL (7-17); Calcium 7.9 mg/dL (8.4-10.2); Carbon Dioxide 37 mmol/L (22-30); Chloride 102 mmol/L (98-107); Estimated CRCL calculation 79 ml/min; Estimated Glomerular Filt Rate > 60; Glucose 136 mg/dL (65-110); Magnesium 1.8 mg/dL (1.6-2.3); Potassium 2.7 mmol/L (3.4-5.0); Sodium 142 mmol/L (137-145)
[2025-02-21] MEDS: POTASSIUM CHLORIDE 20 MEQ PACKET (FOR LIQUID) 40 MEQ PO (09:41)
[2025-02-21] MEDS: POTASSIUM CHLORIDE INJ 40 MEQ in SODIUM CHLORIDE 0.9% IV 500 ML 130 MEQ IVPB (09:41)
--- NOTE | 2025-02-21 11:32 | PM.IMPN ---
Progress Note: A&P Assessment and Plan (1) Cardiac arrest: Code(s): I46.9 - Cardiac arrest, cause unspecified Status: Acute Assessment and Plan: Resolved Patient had a cardiac arrest after placement of a percutaneous drain in the pelvic abscess. Could be related to vasovagal, translocation of bacteria, hypoxia as patient was laying flat, hypovolemia, acidosis -successful ROSC x2, intubated in the CT scan suite by ER physician -patient did follow commands post code a continue, so not a candidate for targeted temperature management -will continue to treat underlying cause (2) Septic shock: Code(s): A41.9 - Sepsis, unspecified organism; R65.21 - Severe sepsis with septic shock Status: Acute Assessment and Plan: 02/01:In the ICU patient dropped her blood pressures -patient has been adequately fluid-resuscitated with IV fluids and albumin -01/25: Blood cultures negative x2 -02/02: repeat blood cultures -growing E coli (pansensitive) and Clostridium ramosum -02/02: Abscess fluid culture growing E coli and Bacteroides fragilis 02/03: WBC count up to 64, could be related to septic shock, infection, leukemoid reaction, steroids. Will continue to monitor -WBC count is trending down, patient is afebrile, continue to monitor --continue meropenem, Flagyl 02/04: Discontinue vancomycin -continue doxycycline for 5 days - weaning stress dose steroid -off all pressors (patient was on Levophed, Bobo-Synephrine and vasopressin) -WBC count trending down 02/04: Repeat blood cultures growing Clostridium ramosum, bacteroids fragilis 02/09: Repeat blood culture shows no growth 02/11:Removal of pelvic abscess drain by surgery 02/12: Patient successfully underwent transgluteal percutaneous abscess drain placement with IR. 02/15 abscess culture from 02/12 positive for E coli on Augmentin and Flagyl per Culture to complete 02/20/25 (3) Acute respiratory failure: Qualifiers: Respiratory failure complication: hypoxia Qualified Code(s): J96.01 - Acute respiratory failure with hypoxia Code(s): J96.00 - Acute respiratory failure, unspecified whether with hypoxia or hypercapnia Status: Acute Assessment and Plan: Acute respiratory failure likely related to cardiac arrest possible from septic shock, infection, hypovolemia, translocation of bacteria, acidosis, hypoxia -patient intubated in the CT scan suite by ER physician -02/06: Extubated Accidentally coughed upper ETT was on pressure support ventilation 10/5 for approximately 3 hours and CXR showed bilateral pulm edema with pleural effusion From CHF exacerbation (4) Intra-abdominal abscess: Code(s): K65.1 - Peritoneal abscess Status: Acute Assessment and Plan: Intra-abdominal abscess, status post percutaneous IR drain placement on 02/01/2025 and removal on 02/10/2025.Underwent 02/12 transgluteal percutaneous abscess drain placement by IR -draining purulent material, cultures as above -surgery is following the patient -Continue Meropenem and Metronidazole -culture growing pansensitive E coli; and bacteroides fragilis drain removed Now on Augmentin and Flagyl (5) Diabetes 1.5, managed as type 2: Code(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 hydralazine IV -once patient starts taking p.o. with will add her home antihypertensive (7) Anemia: Qualifiers: Anemia type: other cause Other causes of anemia: chronic disease, other Qualified Code(s): D63.8 - Anemia in other chronic diseases classified elsewhere Code(s): D64.9 - Anemia, unspecified Status: Acute Assessment and Plan: 02/03: Hemoglobin dropped to 6.3. -will transfuse 1 unit of packed RBC -hemoglobin stable -02/05: hemoglobin dropped to 7.0 -status post 1 unit of packed RBC -iron panel reflective of iron deficiency anemia and/or anemia of chronic disease -folic acid and vitamin B12 levels within normal limits -stool occult was positive -appreciate GI evaluation and no recommendations for endoscopy as patient does not have any overt bleeding -hemoglobin is stable, 8.9 continue to monitor (8) Hypernatremia: Code(s): E87.0 - Hyperosmolality and hypernatremia Status: Acute Assessment and Plan: Started Albumin infusion Na 147 today continue diuresis and monitor (9) Atrial fibrillation: Code(s): I48.91 - Unspecified atrial fibrillation Status: Acute Assessment and Plan: Started Metoprolol PO q 6 hrs [id number] score 3(Age,sex,DM) New onset. TSH wnl ECHO:Left ventricular systolic function is normal, estimated at 55-60% Will defer anticoagulation until discussion with Surgery and Cardiology neurology recommended not starting anticogulation due to hematuria Plan Hypokalemia K 2.7, improving replaced on Spironolactone Discontinued Lasix hematuria US positive for RBC > 100 Urology consulted and noted they will follow up outpatient recommended holding full anticoagulation meantime Diastolic CHF exacerbation ECHO showed grade I diastolic function Patient has anasarca Spironolactone 50mg bid Hold lasix due to hypokalemia monitor DVT prophylaxis on Sq lovenox Subjective Date/time seen: 02/21/25 11:32 Interval history: Comfortabel at bedside K 2.7 today will monitor one more day Review of Systems Review of Systems: All systems reviewed & are unremarkable except as noted in HPI and below ROS unobtainable: Yes unobtainable due to endotracheal tube, unobtainable due to medical condition and unobtainable due to mental status Exam Narrative: General: Obese female, currently in no acute distress HEENT:? Pupils equal and reactive, sclera is clear, Airvo in place Neck:? Supple Respiratory:? Coarse breath sounds bilaterally, decreased at bases, no wheezing, adequate air entry Cardiac:? S1-S2 normal, regular rate and rhythm Abdomen:? Soft, nontender, obese, hypoactive bowel sounds, left lower quadrant drain in place with purulent drainage Extremities:? Bilateral upper and lower extremity pitting edema, improving Neuro:? Of Precedex. More awake, alert, able to answer questions, follows simple commands, Skin:? No skin lesions noted Psych:? Depressed affect Const: General: comfortable and no acute distress Other: , female, elderly, disheveled. Nontoxic appearance. HENMT: Face/Nose/Sinus: Normal nares present Mouth: Yes moist mucous membranes Eyes: General: appearance normal, both eyes and all related structures Sclera: sclerae normal Pupils: Equal, round and reactive pupils present EOM: EOMs intact bilaterally Resp: Effort & Inspection: normal respiratory effort Auscultation: clear to auscultation bilaterally Cardio: Rate: regular rate Rhythm: regular rhythm Other: S1-S2 present without murmur, rub, ectopy GI: Other: tender in the lower quadrants. hyperactive bowel sounds in the upper quadrants, normoactive in the lower. Nondistended, soft. Skin: General skin exam: normal color and no rashes or lesions noted Wounds: no wounds Neuro: Cranial nerves: Yes Equal, round and reactive pupils present Speech: normal speech Motor exam (neuro): 5/5 motor strength present throughout Sensory Exam: normal sensation Other: A&O x4 Extrem: General: normal to inspection Psych: Mental Status: mental status grossly normal Affect: normal affect Other: Malodorous, disheveled. Fair insight and judgment, pleasant. Objective Data Vital Signs Vital Signs: Vital Signs - 24 hr 02/20/25 12:00 02/20/25 16:00 02/20/25 16:37 Temperature 97 F L Pulse Rate 48 L 66 65 Respiratory Rate 12 Blood Pressure 149/76 H Pulse Oximetry 96 Oxygen Delivery 02/20/25 20:00 02/20/25 20:00 02/20/25 20:36 Temperature Pulse Rate 102 H 101 H Respiratory Rate Blood Pressure Pulse Oximetry 95 Oxygen Delivery Room Air 02/20/25 21:14 02/21/25 00:00 02/21/25 04:00 Temperature 98.2 F Pulse Rate 113 H 85 72 Respiratory Rate 18 Blood Pressure 103/50 L Pulse Oximetry 95 Oxygen Delivery 02/21/25 06:00 02/21/25 08:00 02/21/25 08:00 Temperature 97.8 F Pulse Rate 93 73 78 Respiratory Rate 20 Blood Pressure 118/64 Pulse Oximetry 98 97 Oxygen Delivery Room Air 02/21/25 08:33 Temperature Pulse Rate 73 Respiratory Rate Blood Pressure Pulse Oximetry Oxygen Delivery Intake/Output Intake/Output: Intake & Output 02/18/25 02/19/25 02/20/25 02/21/25 23:59 23:59 23:59 23:59 Intake Total 1278 458 580 50 Output Total 8570 1550 2300 450 [facility] [place] -[phone] -400 Meds/Results Medications: Active Medications Generic Name Dose Route Start Last Admin Trade Name Freq PRN Reason Stop Dose Admin Acetaminophen 650 mg 01/25/25 20:51 02/20/25 20:36 Acetaminophen 325 Mg Tablet PO 650 mg Q4H PRN Administration Headache Amoxicillin/Clavulanate Potassium 1 tablet 02/15/25 14:00 02/21/25 05:54 Amoxicillin/Clavulanate K 875-125 Mg Tab PO 02/28/25 23:59 1 tablet Q8HR KANDIS Administration Dextrose 12.5 gm 01/25/25 20:46 01/26/25 11:40 Dextrose 50% 25 Gm/50 Ml Syringe IV PUSH 12.5 gm PRN PRN Administration Hypoglycemia Protocol Enoxaparin Sodium 40 mg 02/08/25 09:00 02/21/25 08:31 Enoxaparin 40 Mg/0.4 Ml Syringe SUB-Q 40 mg DAILY KANDIS Administration Fluticasone Propionate 1 spray 02/07/25 11:00 02/21/25 08:39 Fluticasone Propionate 0.05% Na Spr 16 Gm Btl (*Bkc) NASAL 1 spray Q12HR KANDIS Administration Furosemide 20 mg 02/21/25 17:00 Furosemide 20 Mg Tablet PO BID KANDIS Glucagon 1 mg 01/25/25 20:46 Glucagon For Inj 1 Mg Vial IM PRN PRN Hypoglycemia Protocol Glucose 15 gm 01/25/25 20:46 Glucose Oral Gel 15 Gm Of Glucse In 37.5 Gm Tube PO PRN PRN Hypoglycemia Protocol Hydralazine HCl 10 mg 02/06/25 09:58 02/08/25 16:30 Hydralazine Hcl 20 Mg/Ml Vial IV PUSH 10 mg Q4H PRN Administration Blood Pressure - High Dextrose 1,000 mls @ 100 mls/hr 01/25/25 20:46 Dextrose 5% 1,000 Ml IVPB PRN PRN Hypoglycemia Protocol Potassium Chloride 40 meq/ 520 mls @ 130 mls/hr 02/21/25 09:15 02/21/25 09:41 Sodium Chloride IVPB 02/21/25 13:14 130 mls/hr ONCE ONE Administration Insulin Aspart 4 - 8 units 02/12/25 08:00 02/21/25 07:51 Insulin Aspart (*Bkc) 100 Units/Ml SUB-Q Not Given TIDWM [facility] Protocol Insulin Aspart 2 - 4 units 02/11/25 22:45 02/20/25 21:44 Insulin Aspart (*Bkc) 100 Units/Ml SUB-Q Not Given HS [facility] Protocol Insulin Glargine 10 units 01/29/25 21:00 02/20/25 20:34 Insulin Glargine (*Bkc) 100 Units/Ml SUB-Q 10 units HS KANDIS Administration Insulin Glargine 20 units 02/06/25 07:55 02/07/25 08:43 Insulin Glargine (*Bkc) 100 Units/Ml SUB-Q 20 units DAILY KANDIS Administration Ipratropium [place] 0.5 mg 02/15/25 16:33 Ipratropium Br 0.02% Inh Soln 0.5 Mg/2.5 Ml Vial INHALATION Q6HRT PRN Wheezing Lactobacillus Acidophilus 1 pkt 02/03/25 09:00 02/07/25 12:15 Acidophilus Packet 1 Pkt Packet PO Not Given QID KANDIS Levalbuterol HCl 0.63 mg 02/15/25 16:34 Levalbuterol Neb 1.25 Mg/3 Ml INHALATION Q6HRT PRN Wheezing Metoprolol Tartrate 5 mg 02/09/25 23:21 02/09/25 23:57 Metoprolol Tartrate Inj 5 Mg/5 Ml Vial IV PUSH 5 mg Q4H PRN Administration afib >130 Metoprolol Tartrate 37.5 mg 02/17/25 21:00 02/21/25 08:33 Metoprolol Tartrate 12.5 Mg Tablet PO 37.5 mg Q12HR KANDIS Administration Metronidazole 500 mg 02/11/25 12:00 02/21/25 05:54 Metronidazole 500 Mg Tablet PO 02/28/25 23:59 500 mg Q6HR KANDIS Administration Ondansetron HCl 4 mg 01/25/25 20:51 02/06/25 22:13 Ondansetron Inj 4 Mg/2 Ml Vial IV PUSH 4 mg Q6H PRN Administration Nausea And Vomiting Pantoprazole Sodium 40 mg 02/17/25 09:00 02/21/25 08:32 Pantoprazole 40 Mg Tablet PO 40 mg Q12HR KANDIS Administration Spironolactone 50 mg 02/18/25 17:00 02/21/25 08:32 Spironolactone 25 Mg Tablet PO 50 mg BID KANDIS Administration Tamsulosin HCl 0.4 mg 02/12/25 09:00 02/21/25 08:32 Tamsulosin Hcl 0.4 Mg Capsule PO 0.4 mg QAM KANDIS Administration Radiology Results: ITS Impressions Pelvis CT 01/26/25 14:17 IMPRESSION: 1. No significant change in a bilobed gas and fluid containing abscess in the deep pelvis. Patient canceled the planned percutaneous abscess drainage catheter placement due to discomfort despite attempts at repositioning. Abdomen X-Ray 02/07/25 08:16 IMPRESSION: NO ACUTE ABDOMINAL FINDINGS. Catheter Placement CT 02/12/25 14:51 IMPRESSION: 1. Successful CT-guided pelvic abscess drainage catheter placement. 2. 10 mL fluid was sent for aerobic and anaerobic cultures. 3. The catheter will be managed by Dr. Goins. Abdomen/Pelvis CT 02/15/25 08:26 IMPRESSION: 1. Significant decrease in size of a presacral abscess likely related to prior sigmoid diverticulitis post right transgluteal percutaneous abscess drainage catheter placement. 2. Small bilateral pleural effusions with dependent compressive atelectasis in both lungs. 3. Cholelithiasis. 4. Bilateral nonobstructing nephrolithiasis. Modified Barium Swallow 02/15/25 11:41 IMPRESSION: Pharyngeal dysphagia with laryngeal penetration without aspiration. Please correlate with speech pathologist findings and specific feeding recommendations. Chest X-Ray 02/15/25 12:09 IMPRESSION: 1. Small bilateral pleural effusions with associated bibasilar atelectasis and/or pneumonia. Labs Labs: Laboratory Results - last 24 hr 02/20/25 02/20/25 02/20/25 11:29 16:53 20:43 Sodium Potassium Chloride Carbon Dioxide Anion Gap BUN Creatinine Estim Creat Clear Calc Estimated GFR Glucose POC Capillary Glucose 111 H 143 H 198 H Calcium Magnesium Total Bilirubin AST ALT Alkaline Phosphatase Total Protein Albumin 02/21/25 02/21/25 07:32 08:16 Sodium 142 Potassium 2.7 L* Chloride 102 Carbon Dioxide 37 H Anion Gap 3 L BUN 14 Creatinine 0.64 L Estim Creat Clear Calc 79 Estimated GFR > 60 Glucose 136 H POC Capillary Glucose 133 H Calcium 7.9 L Magnesium 1.8 Total Bilirubin 1.2 AST 23 ALT 11 Alkaline Phosphatase 151 H Total Protein 6.0 L Albumin 2.7 L Quality VTE Prophylaxis VTE prophylaxis: pharmacologic ordered
[2025-02-21 11:43] LABS: Glucose Point of Care 177 mg/dl (65-105)
[2025-02-21] MEDS: MAGNESIUM SULF 1 GM/D5W 100 ML 1 GM/100 ML BAG IVPB (14:28)
[2025-02-21 17:01] LABS: Glucose Point of Care 181 mg/dl (65-105)
[2025-02-21] MEDS: INSULIN GLARGINE (*BKC) 100 UNITS/ML 10 UNITS SUB-Q (20:58)
[2025-02-21] MEDS: INSULIN ASPART (*BKC) 100 UNITS/ML SUB-Q (20:58)
[2025-02-21] MEDS: ACETAMINOPHEN 325 MG TABLET 650 MG PO (20:59)
[2025-02-22] VITALS (11 sets, daily range): BP systolic 100–136; BP diastolic 49–74; PULSE 64–81; RESP 16–20; TEMP 35.7–36.7; O2SAT 94–98
[2025-02-22] MEDS: metroNIDAZOLE 500 MG TABLET PO ×4 (00:24→17:10)
[2025-02-22 03:38] LABS: Glucose Point of Care 446 mg/dl (65-105)
[2025-02-22 03:38] LABS: Glucose Point of Care 203 mg/dl (65-105)
[2025-02-22] MEDS: ACETAMINOPHEN 325 MG TABLET 650 MG PO ×3 (05:35→21:14)
[2025-02-22] MEDS: AMOXICILLIN/CLAVULANATE K 875-125 MG TAB 1 TABLET PO ×3 (05:35→21:16)
[2025-02-22 06:32] LABS: Basophils Percent Auto 0.4 % (0.2-1.2); Eosinophils Absolute Auto 0.1 K/mm3 (0-0.3); Eosinophils Percent Auto 1.3 % (0-4.4); Hematocrit 32.8 % (37.0-47.0); Hemoglobin 9.4 g/dL (12.0-15.0); Immature Granulocyte Absolute 0.05 K/mm3 (0.00-0.031); Immature Granulocyte Percent A 0.6 % (0-0.5); Lymphocytes Absolute Auto 0.75 K/mm3 (0.9-3.2); Mean Corpuscular HGB Conc 28.7 g/dl (32-36); Mean Corpuscular Hemoglobin 25.9 pg (26-34); Mean Corpuscular Volume 90.4 fl (80-100); Mean Platelet Volume 11.2 fl (7.4-10.4); Monocytes Absolute Auto 0.5 K/mm3 (0.1-0.6); Monocytes Percent Auto 5.6 % (2.6-8.5); Neutrophils Absolute Auto 6.9 K/mm3 (1.3-6.7); Neutrophils Percent Auto 83.1 % (45.5-73.1); Platelet Count Result 229 k/mm3 (150-375); Red Blood Count 3.63 M/mm3 (4.2-5.4); Red Cell Distribution Width 24.7 % (11.5-14.5); White Blood Count 8.3 K/mm3 (4.5-10.0)
[2025-02-22 06:40] LABS: Alanine Aminotransferase 11 U/L (6-35); Albumin Level 2.6 g/dL (3.5-5.1); Alkaline Phosphatase 160 U/L (38-126); Anion Gap 4 mmol/L (4-12); Aspartate Amino Transferase 22 U/L (14-36); Bilirubin,Total 1.2 mg/dL (0.2-1.3); Blood Urea Nitrogen 14 mg/dL (7-17); Carbon Dioxide 35 mmol/L (22-30); Chloride 102 mmol/L (98-107); Estimated CRCL calculation 79 ml/min; Estimated Glomerular Filt Rate > 60; Glucose 119 mg/dL (65-110); Potassium 2.8 mmol/L (3.4-5.0); Sodium 141 mmol/L (137-145)
[2025-02-22 07:15] LABS: Anisocytosis 2+; Hypochromasia 1+; Platelet Estimate Adequate (Adequate); Target Cells 2+
[2025-02-22 07:16] LABS: Schistocytes Rare
[2025-02-22 07:46] LABS: Glucose Point of Care 117 mg/dl (65-105)
[2025-02-22] MEDS: METOPROLOL TARTRATE 12.5 MG TABLET 37.5 MG PO ×2 (08:59→21:16)
[2025-02-22] MEDS: POTASSIUM CHLORIDE 20 MEQ PACKET (FOR LIQUID) 40 MEQ PO ×2 (09:00→21:28)
[2025-02-22] MEDS: ENOXAPARIN 40 MG/0.4 ML SYRINGE SUB-Q (09:00)
[2025-02-22] MEDS: PANTOPRAZOLE 40 MG TABLET PO ×2 (09:00→21:20)
[2025-02-22] MEDS: TAMSULOSIN HCL 0.4 MG CAPSULE PO (09:00)
[2025-02-22] MEDS: SPIRONOLACTONE 25 MG TABLET 50 MG PO ×2 (09:00→17:10)
[2025-02-22] MEDS: POTASSIUM CHLORIDE INJ 40 MEQ in SODIUM CHLORIDE 0.9% IV 500 ML 130 MEQ IVPB (09:01)
--- NOTE | 2025-02-22 10:30 | P.CONNP_ITS ---
Assessment and Plan Assessment and plan (1) Hypokalemia: Code(s): E87.6 - Hypokalemia Status: Acute Assessment and Plan: * as noted during this hospital stay * labs prior to this admission demonstrated her potassium in the normal range * suspect this is secondary to total body store depletion of potassium complicated by her suboptimal oral intake in the last several days along with possible GI loss (on/off diarrhea) and need for diuresis given her anasarca * agree with current aggressive supplementation although oral is favored over IV but this may be limited by her poor tolerance to oral intake * prior to extensive work-up, would try to be a bit more aggressive with oral supplementation * if this fails to improve K+ level, the will proceed with further testing * off loop diuretics and on spironolactone which should help as well * follow trend of repeat potassium levels (2) Intra-abdominal abscess: Code(s): K65.1 - Peritoneal abscess Status: Acute Assessment and Plan: * as noted by imaging during this hospital stay * status post percutaneous IR drain placement on 02/01/2025 and removal * s/p transgluteal percutaneous abscess drain placement by IR on 02/12 with removal * General Surgery is following * on antibiotics * cultures growing pansensitive E coli and Bacteroides fragilis (3) Diastolic heart failure: Code(s): I50.30 - Unspecified diastolic (congestive) heart failure Status: Chronic Assessment and Plan: * Echo results noted (on 02/05): * left ventricular systolic function is normal, estimated at 55-60% * left ventricular diastolic function is grade I diastolic dysfunction. * mild tricuspid valve regurgitation * mild pulmonary hypertension, estimated pulmonary arterial systolic pressure is 46 mmHg * lasix on hold due to #1 * on spironolactone 50mg bid * follow volume status (4) Anemia: Qualifiers: Anemia type: other cause Other causes of anemia: chronic disease, other Qualified Code(s): D63.8 - Anemia in other chronic diseases classified elsewhere Code(s): D64.9 - Anemia, unspecified Status: Acute Assessment and Plan: * relatively stable * Hgb did drop as low as 6.3 (on 01/24) * anemia panel demonstrated iron deficiency * hemoccult positive stools * suspect acute illness on admission playing a role as well * hematuria contributing(?) * PRBC transfusion per protocol * GI recommendations noted * follow trend of H/H (5) Atrial fibrillation: Code(s): I48.91 - Unspecified atrial fibrillation Status: Acute Assessment and Plan: * rate control strategy * holding anticoagulation due to hematuria (6) Hypertension: Qualifiers: Hypertension type: unspecified Qualified Code(s): I10 - Essential (primary) hypertension Code(s): I10 - Essential (primary) hypertension Status: Acute Assessment and Plan: * reasonable control * follow trend of hemodynamics (7) Hematuria: Code(s): R31.9 - Hematuria, unspecified Status: Acute Assessment and Plan: * as noted by UA and inspection of burgos * holding anticoagulation at this time * Urology recommendations noted (8) Diabetes 1.5, managed as type 2: Code(s): E13.9 - Other specified diabetes mellitus without complications Status: Acute Assessment and Plan: * follow accu-cheks * glycemic control per hospitalist I will continue to follow the patient with you while she remains hospitalized and make further recommendations as deemed necessary. Thank you for allowing me to participate in the care of this patient. L History of Present Illness Reason for Consult Consult date: 02/22/25 Reason for consult: hypokalemia Chief Complaint Chief complaint: Sigmoid colon abscess History of Present Illness Narrative: A great majority of the history and information that I have obtained is from review of the electronic medical record as well as discussion with the physician /nurses involved in the patient's care has had a complicated dated hospital course since admission and the patient is unaware some of the events that occurred in general since her admission that started almost a month ago. The patient is a 74-year-old female a past medical history as outlined below initially presented to [facility] for further evaluation diarrhea and weakness. Her ER evaluation was significant elevated white blood cell count, lactic acidosis, suspected urinary tract infection, and a CT scan of the abdomen pelvis which was significant for sigmoid colon/proximal rectum colitis with 2 adjacent bilobed abscesses. She was subsequently admitted to the hospital for IV fluids, IV antibiotics and general surgery consultation. Her hospital course has been somewhat complicated by the fact that she had a cardiac arrest following placement of a drainage catheter in 1 of her abdominal abscesses with subsequent septic shock and acute respiratory failure. She was in the intensive care unit requiring vasopressor therapy and mechanical ventilatory support for a period of time. Eventually, her clinical course improve in that in she was extubated and weaned off vasopressor therapy and continued on IV antibiotics. She was subsequently transferred to the medical floor for ongoing medical therapy. More recently, it has been noted that she has had issues and problems with significant hypokalemia despite aggressive IV and oral supplementation. Renal consultation was requested due to her hypokalemia. From review her records, her potassium level is well within normal limits prior to this acute hospitalization. Although she has been receiving aggressive IV and oral supplementation for her potassium, her oral intake has been suboptimal and she is showed significant difficulty in taking oral intake in general this is further complicated by her abdominal abscesses requiring drain placement and fluctuating NPO status. Her magnesium at times has been low but this also has been supplemented. Furthermore, swallowing the potassium pills has been somewhat of issue as well and so she has been transition to potassium replacement via the liquid formation which also is been somewhat limited or difficult for the patient to tolerate as well. Currently, at the time my evaluation, she does not appear to be in any acute distress. Review of Systems 2 Review of Systems: As per HPI. [facility] Past Medical History Medical History Diabetes 1.5, managed as type 2 Hypertension Surgical History Surgical History No history of previous surgery Family History Family History Mother Heart attack Diabetes mellitus Type II DM Father , heart attack Heart attack Heart disease Sibling , gynecological cancer (lining of uterus per patient) No problems noted. Social History Social History Smoking status: Never smoker Second hand tobacco smoke exposure: No Alcohol intake: never Alcohol use details: occasional, [id number] Substance use: never Substance use type: does not use Do You Feel Safe in your Home?: Yes Lack of Transportation: No Lack of Food: Never True Current Housing: I Have Housing Concerned About Future Housing: No Difficulty Paying Gas/Electric Bills: No Difficulty Paying for Meds: No Currently Unemployed: No Education: Bachelor's Degree Difficulty w/ Childcare or Family Care: No Spiritual care concerns: No Meds Home Medications and Allergies Home Medications ?Medication ?Instructions ?Recorded ?Confirmed ?Type triamterene 37.5 1 cap PO DAILY 09/22/19 01/25/25 History mg-hydrochlorothiazide 25 mg capsule verapamil 240 mg tablet,extended 240 mg PO BID 09/22/19 01/25/25 History release lancets 30 gauge (BD Microtainer #200 ea 11/04/24 01/25/25 Rx Lancet) blood sugar diagnostic (Blood #100 ea 11/23/24 01/25/25 Rx Glucose Test strips) blood-glucose meter #1 ea 11/23/24 01/25/25 Rx pioglitazone 45 mg tablet See Rx Instructions .Route 11/24/24 01/25/25 Rx .COMPLEX #90 tabs glimepiride 4 mg tablet 4 mg PO BID #180 tabs 12/17/24 01/25/25 Rx metoprolol succinate 50 mg 50 mg PO DAILY #180 tabs 12/17/24 01/25/25 Rx tablet,extended release 24 hr Allergies Allergy/AdvReac Type Severity Reaction Status Date / Time ciprofloxacin (From Cipro) Allergy Rash Verified 01/25/25 10:42 codeine Allergy Rash Verified 01/25/25 10:42 ibuprofen (From Advil) AdvReac Other Verified 01/25/25 10:42 naproxen (From Aleve) AdvReac Other Verified 01/25/25 10:42 Vital Signs Vital Signs Temp Pulse Resp BP Pulse Ox 02/22/25 08:59 78 02/22/25 08:00 77 02/22/25 08:00 123/68 02/22/25 06:00 96.2 F L 78 20 100/49 L 94 02/22/25 04:00 78 02/22/25 00:00 79 02/21/25 20:55 88 02/21/25 20:05 98 F 91 20 130/87 93 02/21/25 20:00 102 H 02/21/25 16:00 96 02/21/25 14:19 97.8 F 97 16 118/68 96 Exam 2 Narrative: GENERAL APPEARANCE: elderly but well developed well nourished female in no acute distress HEENT: normocephalic, atraumatic, normal conjunctiva and sclera, nares patient NECK: no lymphadenopathy, thyromegaly, or JVD MOUTH: normal lips, teeth, and gums CARDIOVASCULAR: RRR, normal S1 and S2, no rub RESPIRATORY: clear anteriorly ABDOMEN: soft, nontender, nondistended, positive bowel sounds present EXTREMITIES: no evidence of cyanosis, clubbing, trace - 1+ edema NEUROLOGICAL: alert and oriented x 3; CN II - XII intact bilaterally; generalized weakness Results Lab Results 02/23/25 05:22 02/23/25 05:22 Lab results: Most recent lab results ABG pH 7.441 (7.350-7.450) 02/15/25 11:50 ABG pCO2 47.2 mmHg (35.0-45.0) H 02/15/25 11:50 ABG pO2 91.3 mmHg (80.0-100.0) 02/15/25 11:50 ABG HCO3 31.4 mEq/l (22.0-26.0) H 02/15/25 11:50 ABG O2 Saturation 97.2 % (95.0-100.0) 02/15/25 11:50 Calcium 8.0 mg/dL (8.4-10.2) L 02/22/25 05:18 Phosphorus 3.5 mg/dL (2.5-4.5) 02/09/25 06:18 Magnesium 2.0 mg/dL (1.6-2.3) 02/22/25 05:18
[2025-02-22 11:42] LABS: Glucose Point of Care 155 mg/dl (65-105)
--- NOTE | 2025-02-22 11:57 | PM.IMPN ---
Progress Note: A&P Assessment and Plan (1) Cardiac arrest: Code(s): I46.9 - Cardiac arrest, cause unspecified Status: Acute Assessment and Plan: Resolved Patient had a cardiac arrest after placement of a percutaneous drain in the pelvic abscess. Could be related to vasovagal, translocation of bacteria, hypoxia as patient was laying flat, hypovolemia, acidosis -successful ROSC x2, intubated in the CT scan suite by ER physician -patient did follow commands post code a continue, so not a candidate for targeted temperature management -will continue to treat underlying cause (2) Septic shock: Code(s): A41.9 - Sepsis, unspecified organism; R65.21 - Severe sepsis with septic shock Status: Acute Assessment and Plan: 02/01:In the ICU patient dropped her blood pressures -patient has been adequately fluid-resuscitated with IV fluids and albumin -01/25: Blood cultures negative x2 -02/02: repeat blood cultures -growing E coli (pansensitive) and Clostridium ramosum -02/02: Abscess fluid culture growing E coli and Bacteroides fragilis 02/03: WBC count up to 64, could be related to septic shock, infection, leukemoid reaction, steroids. Will continue to monitor -WBC count is trending down, patient is afebrile, continue to monitor --continue meropenem, Flagyl 02/04: Discontinue vancomycin -continue doxycycline for 5 days - weaning stress dose steroid -off all pressors (patient was on Levophed, Bobo-Synephrine and vasopressin) -WBC count trending down 02/04: Repeat blood cultures growing Clostridium ramosum, bacteroids fragilis 02/09: Repeat blood culture shows no growth 02/11:Removal of pelvic abscess drain by surgery 02/12: Patient successfully underwent transgluteal percutaneous abscess drain placement with IR. 02/15 abscess culture from 02/12 positive for E coli on Augmentin and Flagyl per Culture to complete 02/20/25 (3) Acute respiratory failure: Qualifiers: Respiratory failure complication: hypoxia Qualified Code(s): J96.01 - Acute respiratory failure with hypoxia Code(s): J96.00 - Acute respiratory failure, unspecified whether with hypoxia or hypercapnia Status: Acute Assessment and Plan: Acute respiratory failure likely related to cardiac arrest possible from septic shock, infection, hypovolemia, translocation of bacteria, acidosis, hypoxia -patient intubated in the CT scan suite by ER physician -02/06: Extubated Accidentally coughed upper ETT was on pressure support ventilation 10/5 for approximately 3 hours and CXR showed bilateral pulm edema with pleural effusion From CHF exacerbation (4) Intra-abdominal abscess: Code(s): K65.1 - Peritoneal abscess Status: Acute Assessment and Plan: Intra-abdominal abscess, status post percutaneous IR drain placement on 02/01/2025 and removal on 02/10/2025.Underwent 02/12 transgluteal percutaneous abscess drain placement by IR -draining purulent material, cultures as above -surgery is following the patient -Continue Meropenem and Metronidazole -culture growing pansensitive E coli; and bacteroides fragilis drain removed Now on Augmentin and Flagyl (5) Diabetes 1.5, managed as type 2: Code(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 hydralazine IV -once patient starts taking p.o. with will add her home antihypertensive (7) Anemia: Qualifiers: Anemia type: other cause Other causes of anemia: chronic disease, other Qualified Code(s): D63.8 - Anemia in other chronic diseases classified elsewhere Code(s): D64.9 - Anemia, unspecified Status: Acute Assessment and Plan: 02/03: Hemoglobin dropped to 6.3. -will transfuse 1 unit of packed RBC -hemoglobin stable -02/05: hemoglobin dropped to 7.0 -status post 1 unit of packed RBC -iron panel reflective of iron deficiency anemia and/or anemia of chronic disease -folic acid and vitamin B12 levels within normal limits -stool occult was positive -appreciate GI evaluation and no recommendations for endoscopy as patient does not have any overt bleeding -hemoglobin is stable, 8.9 continue to monitor (8) Hypernatremia: Code(s): E87.0 - Hyperosmolality and hypernatremia Status: Acute Assessment and Plan: Started Albumin infusion Na 141 today continue diuresis and monitor (9) Atrial fibrillation: Code(s): I48.91 - Unspecified atrial fibrillation Status: Acute Assessment and Plan: Started Metoprolol PO q 6 hrs [id number] score 3(Age,sex,DM) New onset. TSH wnl ECHO:Left ventricular systolic function is normal, estimated at 55-60% Will defer anticoagulation until discussion with Surgery and Cardiology neurology recommended not starting anticogulation due to hematuria Plan Hypokalemia K 2.8, improving replaced on Spironolactone Discontinued Lasix Nephrology consulted hematuria US positive for RBC > 100 Urology consulted and noted they will follow up outpatient recommended holding full anticoagulation meantime Diastolic CHF exacerbation ECHO showed grade I diastolic function Patient has anasarca Spironolactone 50mg bid Hold Lasix due to hypokalemia monitor DVT prophylaxis on Sq Lovenox Subjective Date/time seen: 02/22/25 11:57 Interval history: Comfortabel at bedside K 2.8 today stopped Lasix, continue spironolactone Review of Systems Review of Systems: All systems reviewed & are unremarkable except as noted in HPI and below ROS unobtainable: Yes unobtainable due to endotracheal tube, unobtainable due to medical condition and unobtainable due to mental status Exam Narrative: General: Obese female, currently in no acute distress HEENT:? Pupils equal and reactive, sclera is clear, Airvo in place Neck:? Supple Respiratory:? Coarse breath sounds bilaterally, decreased at bases, no wheezing, adequate air entry Cardiac:? S1-S2 normal, regular rate and rhythm Abdomen:? Soft, nontender, obese, hypoactive bowel sounds, left lower quadrant drain in place with purulent drainage Extremities:? Bilateral upper and lower extremity pitting edema, improving Neuro:? Of Precedex. More awake, alert, able to answer questions, follows simple commands, Skin:? No skin lesions noted Psych:? Depressed affect Const: General: comfortable and no acute distress Other: , female, elderly, disheveled. Nontoxic appearance. HENMT: Face/Nose/Sinus: Normal nares present Mouth: Yes moist mucous membranes Eyes: General: appearance normal, both eyes and all related structures Sclera: sclerae normal Pupils: Equal, round and reactive pupils present EOM: EOMs intact bilaterally Resp: Effort & Inspection: normal respiratory effort Auscultation: clear to auscultation bilaterally Cardio: Rate: regular rate Rhythm: regular rhythm Other: S1-S2 present without murmur, rub, ectopy GI: Other: tender in the lower quadrants. hyperactive bowel sounds in the upper quadrants, normoactive in the lower. Nondistended, soft. Skin: General skin exam: normal color and no rashes or lesions noted Wounds: no wounds Neuro: Cranial nerves: Yes Equal, round and reactive pupils present Speech: normal speech Motor exam (neuro): 5/5 motor strength present throughout Sensory Exam: normal sensation Other: A&O x4 Extrem: General: normal to inspection Psych: Mental Status: mental status grossly normal Affect: normal affect Other: Malodorous, disheveled. Fair insight and judgment, pleasant. Objective Data Vital Signs Vital Signs: Vital Signs - 24 hr 02/21/25 12:00 02/21/25 14:19 02/21/25 16:00 Temperature 97.8 F Pulse Rate 88 97 96 Respiratory Rate 16 Blood Pressure 118/68 Pulse Oximetry 96 02/21/25 20:00 02/21/25 20:05 02/21/25 20:55 Temperature 98 F Pulse Rate 102 H 91 88 Respiratory Rate 20 Blood Pressure 130/87 Pulse Oximetry 93 02/22/25 00:00 02/22/25 04:00 02/22/25 06:00 Temperature 96.2 F L Pulse Rate 79 78 78 Respiratory Rate 20 Blood Pressure 100/49 L Pulse Oximetry 94 02/22/25 08:00 02/22/25 08:00 02/22/25 08:59 Temperature Pulse Rate 77 78 Respiratory Rate Blood Pressure 123/68 Pulse Oximetry Intake/Output Intake/Output: Intake & Output 02/19/25 02/20/25 02/21/25 02/22/25 23:59 23:59 23:59 23:59 Intake Total 591 461 670 270 Output Total 3120 2300 1250 250 Balance -1092 -1720 -580 20 Meds/Results Medications: Active Medications Generic Name Dose Route Start Last Admin Trade Name Freq PRN Reason Stop Dose Admin Acetaminophen 650 mg 01/25/25 20:51 02/22/25 05:35 Acetaminophen 325 Mg Tablet PO 650 mg Q4H PRN Administration Headache Amoxicillin/Clavulanate Potassium 1 tablet 02/15/25 14:00 02/22/25 05:35 Amoxicillin/Clavulanate K 875-125 Mg Tab PO 02/28/25 23:59 1 tablet Q8HR KANDIS Administration Dextrose 12.5 gm 01/25/25 20:46 01/26/25 11:40 Dextrose 50% 25 Gm/50 Ml Syringe IV PUSH 12.5 gm PRN PRN Administration Hypoglycemia Protocol Enoxaparin Sodium 40 mg 02/08/25 09:00 02/22/25 09:00 Enoxaparin 40 Mg/0.4 Ml Syringe SUB-Q 40 mg DAILY KANDIS Administration Fluticasone Propionate 1 spray 02/07/25 11:00 02/22/25 09:01 Fluticasone Propionate 0.05% Na Spr 16 Gm Btl (*Bkc) NASAL Not Given Q12HR KANDIS Glucagon 1 mg 01/25/25 20:46 Glucagon For Inj 1 Mg Vial IM PRN PRN Hypoglycemia Protocol Glucose 15 gm 01/25/25 20:46 Glucose Oral Gel 15 Gm Of Glucse In 37.5 Gm Tube PO PRN PRN Hypoglycemia Protocol Hydralazine HCl 10 mg 02/06/25 09:58 02/08/25 16:30 Hydralazine Hcl 20 Mg/Ml Vial IV PUSH 10 mg Q4H PRN Administration Blood Pressure - High Dextrose 1,000 mls @ 100 mls/hr 01/25/25 20:46 Dextrose 5% 1,000 Ml IVPB PRN PRN Hypoglycemia Protocol Insulin Aspart 4 - 8 units 02/12/25 08:00 02/22/25 08:08 Insulin Aspart (*Bkc) 100 Units/Ml SUB-Q Not Given TIDWM [facility] Protocol Insulin Aspart 2 - 4 units 02/11/25 22:45 02/21/25 20:58 Insulin Aspart (*Bkc) 100 Units/Ml SUB-Q 2 units HS KANDIS Administration Protocol Insulin Glargine 10 units 01/29/25 21:00 02/21/25 20:58 Insulin Glargine (*Bkc) 100 Units/Ml SUB-Q 10 units HS KANDIS Administration Insulin Glargine 20 units 02/06/25 07:55 02/07/25 08:43 Insulin Glargine (*Bkc) 100 Units/Ml SUB-Q 20 units DAILY KANDIS Administration Ipratropium [place] 0.5 mg 02/15/25 16:33 Ipratropium Br 0.02% Inh Soln 0.5 Mg/2.5 Ml Vial INHALATION Q6HRT PRN Wheezing Lactobacillus Acidophilus 1 pkt 02/03/25 09:00 02/07/25 12:15 Acidophilus Packet 1 Pkt Packet PO Not Given QID KANDIS Levalbuterol HCl 0.63 mg 02/15/25 16:34 Levalbuterol Neb 1.25 Mg/3 Ml INHALATION Q6HRT PRN Wheezing Metoprolol Tartrate 5 mg 02/09/25 23:21 02/09/25 23:57 Metoprolol Tartrate Inj 5 Mg/5 Ml Vial IV PUSH 5 mg Q4H PRN Administration afib >130 Metoprolol Tartrate 37.5 mg 02/17/25 21:00 02/22/25 08:59 Metoprolol Tartrate 12.5 Mg Tablet PO 37.5 mg Q12HR KANDIS Administration Metronidazole 500 mg 02/11/25 12:00 02/22/25 05:35 Metronidazole 500 Mg Tablet PO 02/28/25 23:59 500 mg Q6HR KANDIS Administration Ondansetron HCl 4 mg 01/25/25 20:51 02/06/25 22:13 Ondansetron Inj 4 Mg/2 Ml Vial IV PUSH 4 mg Q6H PRN Administration Nausea And Vomiting Pantoprazole Sodium 40 mg 02/17/25 09:00 02/22/25 09:00 Pantoprazole 40 Mg Tablet PO 40 mg Q12HR KANDIS Administration Spironolactone 50 mg 02/18/25 17:00 02/22/25 09:00 Spironolactone 25 Mg Tablet PO 50 mg BID KANDIS Administration Tamsulosin HCl 0.4 mg 02/12/25 09:00 02/22/25 09:00 Tamsulosin Hcl 0.4 Mg Capsule PO 0.4 mg QAM KANDIS Administration Radiology Results: ITS Impressions Pelvis CT 01/26/25 14:17 IMPRESSION: 1. No significant change in a bilobed gas and fluid containing abscess in the deep pelvis. Patient canceled the planned percutaneous abscess drainage catheter placement due to discomfort despite attempts at repositioning. Abdomen X-Ray 02/07/25 08:16 IMPRESSION: NO ACUTE ABDOMINAL FINDINGS. Catheter Placement CT 02/12/25 14:51 IMPRESSION: 1. Successful CT-guided pelvic abscess drainage catheter placement. 2. 10 mL fluid was sent for aerobic and anaerobic cultures. 3. The catheter will be managed by Dr. Goins. Abdomen/Pelvis CT 02/15/25 08:26 IMPRESSION: 1. Significant decrease in size of a presacral abscess likely related to prior sigmoid diverticulitis post right transgluteal percutaneous abscess drainage catheter placement. 2. Small bilateral pleural effusions with dependent compressive atelectasis in both lungs. 3. Cholelithiasis. 4. Bilateral nonobstructing nephrolithiasis. Modified Barium Swallow 02/15/25 11:41 IMPRESSION: Pharyngeal dysphagia with laryngeal penetration without aspiration. Please correlate with speech pathologist findings and specific feeding recommendations. Chest X-Ray 02/15/25 12:09 IMPRESSION: 1. Small bilateral pleural effusions with associated bibasilar atelectasis and/or pneumonia. Labs Labs: Laboratory Results - last 24 hr 02/21/25 02/21/25 02/21/25 16:40 20:09 20:10 WBC RBC Hgb Hct MCV MCH MCHC RDW Plt Count MPV Immature Gran % (Auto) Neut % (Auto) Lymph % (Auto) [place] % (Auto) Eos % (Auto) Baso % (Auto) Lymph # (Auto) [place] # (Auto) Eos # (Auto) Baso # (Auto) Abs Immat Gran (auto) Absolute Neuts (auto) Absolute Nucleated RBC Band Neutrophils % Nucleated RBC % Platelet Estimate Hypochromasia Anisocytosis Target Cells Schistocytes Sodium Potassium Chloride Carbon Dioxide Anion Gap BUN Creatinine Estim Creat Clear Calc Estimated GFR Glucose POC Capillary Glucose 181 H 446 H 203 H Calcium Magnesium Total Bilirubin AST ALT Alkaline Phosphatase Total Protein Albumin 02/22/25 02/22/25 02/22/25 05:18 07:44 11:36 WBC 8.3 RBC 3.63 L Hgb 9.4 L Hct 32.8 L MCV 90.4 MCH 25.9 L MCHC 28.7 L RDW 24.7 H Plt Count 229 MPV 11.2 H Immature Gran % (Auto) 0.6 H Neut % (Auto) 83.1 H Lymph % (Auto) 9.0 L [place] % (Auto) 5.6 Eos % (Auto) 1.3 Baso % (Auto) 0.4 Lymph # (Auto) 0.75 L [place] # (Auto) 0.5 Eos # (Auto) 0.1 Baso # (Auto) 0.0 Abs Immat Gran (auto) 0.05 H Absolute Neuts (auto) 6.9 H Absolute Nucleated RBC 0.000 Band Neutrophils % Not Reportable Nucleated RBC % 0.0 Platelet Estimate Adequate Hypochromasia 1+ Anisocytosis 2+ Target Cells 2+ Schistocytes Rare Sodium 141 Potassium 2.8 L* Chloride 102 Carbon Dioxide 35 H Anion Gap 4 BUN 14 Creatinine 0.65 L Estim Creat Clear Calc 79 Estimated GFR > 60 Glucose 119 H POC Capillary Glucose 117 H 155 H Calcium 8.0 L Magnesium 2.0 Total Bilirubin 1.2 AST 22 ALT 11 Alkaline Phosphatase 160 H Total Protein 6.0 L Albumin 2.6 L Quality VTE Prophylaxis VTE prophylaxis: pharmacologic ordered
[2025-02-22 16:17] LABS: Glucose Point of Care 217 mg/dl (65-105)
[2025-02-22] MEDS: INSULIN ASPART (*BKC) 100 UNITS/ML SUB-Q (17:11)
[2025-02-22 20:59] LABS: Potassium 3.3 mmol/L (3.4-5.0)
[2025-02-22] MEDS: INSULIN GLARGINE (*BKC) 100 UNITS/ML 10 UNITS SUB-Q (21:10)
[2025-02-22 22:35] LABS: Glucose Point of Care 153 mg/dl (65-105)
[2025-02-23] VITALS (11 sets, daily range): BP systolic 128–148; BP diastolic 60–81; PULSE 63–96; RESP 16–18; TEMP 36.2–36.4; O2SAT 90–97
[2025-02-23] MEDS: metroNIDAZOLE 500 MG TABLET PO ×4 (00:02→17:26)
[2025-02-23] MEDS: AMOXICILLIN/CLAVULANATE K 875-125 MG TAB 1 TABLET PO ×3 (05:07→20:56)
[2025-02-23 06:41] LABS: Basophils Percent Auto 0.5 % (0.2-1.2); Eosinophils Absolute Auto 0.2 K/mm3 (0-0.3); Eosinophils Percent Auto 1.9 % (0-4.4); Hematocrit 31.7 % (37.0-47.0); Hemoglobin 9.1 g/dL (12.0-15.0); Immature Granulocyte Absolute 0.04 K/mm3 (0.00-0.031); Immature Granulocyte Percent A 0.5 % (0-0.5); Lymphocytes Absolute Auto 0.77 K/mm3 (0.9-3.2); Lymphocytes Percent Auto 9.6 % (18.3-44.2); Mean Corpuscular HGB Conc 28.7 g/dl (32-36); Mean Corpuscular Hemoglobin 26.1 pg (26-34); Mean Corpuscular Volume 91.1 fl (80-100); Mean Platelet Volume 10.6 fl (7.4-10.4); Monocytes Absolute Auto 0.5 K/mm3 (0.1-0.6); Monocytes Percent Auto 6.5 % (2.6-8.5); Neutrophils Absolute Auto 6.5 K/mm3 (1.3-6.7); Platelet Count Result 199 k/mm3 (150-375); Red Blood Count 3.48 M/mm3 (4.2-5.4); Red Cell Distribution Width 25.3 % (11.5-14.5); White Blood Count 8.1 K/mm3 (4.5-10.0)
[2025-02-23 06:50] LABS: Alanine Aminotransferase 10 U/L (6-35); Albumin Level 2.7 g/dL (3.5-5.1); Alkaline Phosphatase 153 U/L (38-126); Anion Gap 4 mmol/L (4-12); Aspartate Amino Transferase 22 U/L (14-36); Bilirubin,Total 1.1 mg/dL (0.2-1.3); Blood Urea Nitrogen 15 mg/dL (7-17); Calcium 8.2 mg/dL (8.4-10.2); Carbon Dioxide 33 mmol/L (22-30); Chloride 105 mmol/L (98-107); Estimated CRCL calculation 77 ml/min; Estimated Glomerular Filt Rate > 60; Glucose 106 mg/dL (65-110); Magnesium 2.1 mg/dL (1.6-2.3); Potassium 3.5 mmol/L (3.4-5.0); Sodium 142 mmol/L (137-145)
[2025-02-23 07:44] LABS: Anisocytosis 1+; Hypochromasia 1+; Platelet Estimate Adequate (Adequate); Schistocytes None Seen
[2025-02-23 07:49] LABS: Glucose Point of Care 110 mg/dl (65-105)
[2025-02-23] MEDS: METOPROLOL TARTRATE 12.5 MG TABLET 37.5 MG PO ×2 (08:07→20:53)
[2025-02-23] MEDS: TAMSULOSIN HCL 0.4 MG CAPSULE PO (08:07)
[2025-02-23] MEDS: SPIRONOLACTONE 25 MG TABLET 50 MG PO ×2 (08:08→17:26)
[2025-02-23] MEDS: ENOXAPARIN 40 MG/0.4 ML SYRINGE SUB-Q (08:08)
[2025-02-23] MEDS: PANTOPRAZOLE 40 MG TABLET PO ×2 (08:08→20:56)
[2025-02-23] MEDS: POTASSIUM CHLORIDE 20 MEQ PACKET (FOR LIQUID) 40 MEQ PO (08:08)
--- NOTE | 2025-02-23 10:45 | P.PNNP_ITS ---
Progress Note: A&P Assessment and Plan (1) Hypokalemia: Code(s): E87.6 - Hypokalemia Status: Acute Assessment and Plan: * doing a bit better * as noted during this hospital stay * labs prior to this admission demonstrated her potassium in the normal range * suspect this is secondary to total body store depletion of potassium complicated by her suboptimal oral intake in the last several days along with possible GI loss (on/off diarrhea) and need for diuresis given her anasarca * agree with current aggressive supplementation although oral is favored over IV but this may be limited by her poor tolerance to oral intake * off loop diuretics and on spironolactone which should help as well * follow trend of repeat potassium levels (2) Intra-abdominal abscess: Code(s): K65.1 - Peritoneal abscess Status: Acute Assessment and Plan: * as noted by imaging during this hospital stay * status post percutaneous IR drain placement on 02/01/2025 and removal * s/p transgluteal percutaneous abscess drain placement by IR on 02/12 with removal * General Surgery is following * on antibiotics * cultures growing pansensitive E coli and Bacteroides fragilis (3) Diastolic heart failure: Code(s): I50.30 - Unspecified diastolic (congestive) heart failure Status: Chronic Assessment and Plan: * Echo results noted (on 02/05): * left ventricular systolic function is normal, estimated at 55-60% * left ventricular diastolic function is grade I diastolic dysfunction. * mild tricuspid valve regurgitation * mild pulmonary hypertension, estimated pulmonary arterial systolic pressure is 46 mmHg * lasix on hold due to #1 * on spironolactone 50mg bid * follow volume status (4) Anemia: Qualifiers: Anemia type: other cause Other causes of anemia: chronic disease, other Qualified Code(s): D63.8 - Anemia in other chronic diseases classified elsewhere Code(s): D64.9 - Anemia, unspecified Status: Acute Assessment and Plan: * relatively stable * Hgb did drop as low as 6.3 (on 01/24) * anemia panel demonstrated iron deficiency * hemoccult positive stools * suspect acute illness on admission playing a role as well * hematuria contributing(?) * PRBC transfusion per protocol * GI recommendations noted * follow trend of H/H (5) Atrial fibrillation: Code(s): I48.91 - Unspecified atrial fibrillation Status: Acute Assessment and Plan: * rate control strategy * holding anticoagulation due to hematuria (6) Hypertension: Qualifiers: Hypertension type: unspecified Qualified Code(s): I10 - Essential (primary) hypertension Code(s): I10 - Essential (primary) hypertension Status: Acute Assessment and Plan: * reasonable control * follow trend of hemodynamics (7) Hematuria: Code(s): R31.9 - Hematuria, unspecified Status: Acute Assessment and Plan: * as noted by UA and inspection of burgos * holding anticoagulation at this time * Urology recommendations noted (8) Diabetes 1.5, managed as type 2: Code(s): E13.9 - Other specified diabetes mellitus without complications Status: Acute Assessment and Plan: * follow accu-cheks * glycemic control per hospitalist Will continue to follow. L Subjective Date/time seen: 02/23/25 10:45 Interval history: Follow-up for acute hypokalemia. Potassium appears to be doing better at this time; major complaint at the time of my visit is that of hip pain as well as on/off diarrhea; still reports that she is not eating/drinking very well but somewhat improved in general. Exam 2 Narrative: General: elderly but WD/WN Caucasina female in NAD Heart: normal S1 and S2; no rub Lungs: coarse breath sounds; decreased at bases Abdomen: soft, nontender, nondistended, positive bowel sounds Extremities: no cyanosis or clubbing; 1+ edema Skin: warm and dry Objective Data Vital Signs Vital Signs: Vital Signs Temp Pulse Resp BP Pulse Ox O2 Del Method 02/23/25 08:07 65 02/23/25 08:00 65 02/23/25 05:35 97.2 F L 65 18 148/81 H 93 02/23/25 04:00 64 02/23/25 00:00 63 02/22/25 21:20 96.8 F L 76 16 136/74 96 02/22/25 21:16 76 02/22/25 20:00 74 02/22/25 16:00 74 02/22/25 15:00 Room Air 02/22/25 14:48 Room Air 02/22/25 14:00 98.1 F 64 18 117/52 L 98 Intake/Output Intake/Output: Intake & Output 02/20/25 02/21/25 02/22/25 02/23/25 23:59 23:59 23:59 23:59 Intake Total 580 670 790 150 Output Total 2300 1250 450 Balance -1720 -580 340 150 Meds/Results Medications: Active Medications Generic Name Dose Route Start Last Admin Trade Name Freq PRN Reason Stop Dose Admin Acetaminophen 650 mg 01/25/25 20:51 02/22/25 21:14 Acetaminophen 325 Mg Tablet PO 650 mg Q4H PRN Administration Headache Amoxicillin/Clavulanate Potassium 1 tablet 02/15/25 14:00 02/23/25 05:07 Amoxicillin/Clavulanate K 875-125 Mg Tab PO 02/28/25 23:59 1 tablet Q8HR KANDIS Administration Dextrose 12.5 gm 01/25/25 20:46 01/26/25 11:40 Dextrose 50% 25 Gm/50 Ml Syringe IV PUSH 12.5 gm PRN PRN Administration Hypoglycemia Protocol Enoxaparin Sodium 40 mg 02/08/25 09:00 02/23/25 08:08 Enoxaparin 40 Mg/0.4 Ml Syringe SUB-Q 40 mg DAILY KANDIS Administration Fluticasone Propionate 1 spray 02/07/25 11:00 02/23/25 08:10 Fluticasone Propionate 0.05% Na Spr 16 Gm Btl (*Bkc) NASAL Not Given Q12HR KANDIS Glucagon 1 mg 01/25/25 20:46 Glucagon For Inj 1 Mg Vial IM PRN PRN Hypoglycemia Protocol Glucose 15 gm 01/25/25 20:46 Glucose Oral Gel 15 Gm Of Glucse In 37.5 Gm Tube PO PRN PRN Hypoglycemia Protocol Hydralazine HCl 10 mg 02/06/25 09:58 02/08/25 16:30 Hydralazine Hcl 20 Mg/Ml Vial IV PUSH 10 mg Q4H PRN Administration Blood Pressure - High Dextrose 1,000 mls @ 100 mls/hr 01/25/25 20:46 Dextrose 5% 1,000 Ml IVPB PRN PRN Hypoglycemia Protocol Insulin Aspart 4 - 8 units 02/12/25 08:00 02/23/25 10:59 Insulin Aspart (*Bkc) 100 Units/Ml SUB-Q Not Given TIDWM KANDIS Protocol Insulin Aspart 2 - 4 units 02/11/25 22:45 02/22/25 21:09 Insulin Aspart (*Bkc) 100 Units/Ml SUB-Q Not Given HS KANDSI Protocol Insulin Glargine 10 units 01/29/25 21:00 02/22/25 21:10 Insulin Glargine (*Bkc) 100 Units/Ml SUB-Q 10 units HS KANDIS Administration Insulin Glargine 20 units 02/06/25 07:55 02/07/25 08:43 Insulin Glargine (*Bkc) 100 Units/Ml SUB-Q 20 units DAILY KANDIS Administration Ipratropium [place] 0.5 mg 02/15/25 16:33 Ipratropium Br 0.02% Inh Soln 0.5 Mg/2.5 Ml Vial INHALATION Q6HRT PRN Wheezing Lactobacillus Acidophilus 1 pkt 02/03/25 09:00 02/07/25 12:15 Acidophilus Packet 1 Pkt Packet PO Not Given QID KANDIS Levalbuterol HCl 0.63 mg 02/15/25 16:34 Levalbuterol Neb 1.25 Mg/3 Ml INHALATION Q6HRT PRN Wheezing Metoprolol Tartrate 5 mg 02/09/25 23:21 02/09/25 23:57 Metoprolol Tartrate Inj 5 Mg/5 Ml Vial IV PUSH 5 mg Q4H PRN Administration afib >130 Metoprolol Tartrate 37.5 mg 02/17/25 21:00 02/23/25 08:07 Metoprolol Tartrate 12.5 Mg Tablet PO 37.5 mg Q12HR KANDIS Administration Metronidazole 500 mg 02/11/25 12:00 02/23/25 05:07 Metronidazole 500 Mg Tablet PO 02/28/25 23:59 500 mg Q6HR KANDIS Administration Ondansetron HCl 4 mg 01/25/25 20:51 02/06/25 22:13 Ondansetron Inj 4 Mg/2 Ml Vial IV PUSH 4 mg Q6H PRN Administration Nausea And Vomiting Pantoprazole Sodium 40 mg 02/17/25 09:00 02/23/25 08:08 Pantoprazole 40 Mg Tablet PO 40 mg Q12HR KANDIS Administration Potassium Chloride 40 meq 02/23/25 09:00 02/23/25 08:08 Potassium Chloride 20 Meq Packet (For Liquid) PO 40 meq DAILY KANDIS Administration Spironolactone 50 mg 02/18/25 17:00 02/23/25 08:08 Spironolactone 25 Mg Tablet PO 50 mg BID KANDIS Administration Tamsulosin HCl 0.4 mg 02/12/25 09:00 02/23/25 08:07 Tamsulosin Hcl 0.4 Mg Capsule PO 0.4 mg QAM KANDIS Administration Radiology Results: ITS Impressions Pelvis CT 01/26/25 14:17 IMPRESSION: 1. No significant change in a bilobed gas and fluid containing abscess in the deep pelvis. Patient canceled the planned percutaneous abscess drainage catheter placement due to discomfort despite attempts at repositioning. Abdomen X-Ray 02/07/25 08:16 IMPRESSION: NO ACUTE ABDOMINAL FINDINGS. Catheter Placement CT 02/12/25 14:51 IMPRESSION: 1. Successful CT-guided pelvic abscess drainage catheter placement. 2. 10 mL fluid was sent for aerobic and anaerobic cultures. 3. The catheter will be managed by Dr. Goins. Abdomen/Pelvis CT 02/15/25 08:26 IMPRESSION: 1. Significant decrease in size of a presacral abscess likely related to prior sigmoid diverticulitis post right transgluteal percutaneous abscess drainage catheter placement. 2. Small bilateral pleural effusions with dependent compressive atelectasis in both lungs. 3. Cholelithiasis. 4. Bilateral nonobstructing nephrolithiasis. Modified Barium Swallow 02/15/25 11:41 IMPRESSION: Pharyngeal dysphagia with laryngeal penetration without aspiration. Please correlate with speech pathologist findings and specific feeding recommendations. Chest X-Ray 02/15/25 12:09 IMPRESSION: 1. Small bilateral pleural effusions with associated bibasilar atelectasis and/or pneumonia. Labs Labs: Laboratory Tests 02/23/25 05:22 02/23/25 05:22 Calcium 8.2 L Magnesium 2.1 Total Bilirubin 1.1 AST 22 ALT 10 Alkaline Phosphatase 153 H Total Protein 6.0 L Albumin 2.7 L
--- NOTE | 2025-02-23 11:42 | PCPTNOTE ---
Patient refused treatment this session. Patient states she was in pain this morning and is just now out of pain and comfortable.
[2025-02-23 11:45] LABS: Glucose Point of Care 176 mg/dl (65-105)
--- NOTE | 2025-02-23 16:16 | PM.IMPN ---
Progress Note: A&P Assessment and Plan (1) Cardiac arrest: Code(s): I46.9 - Cardiac arrest, cause unspecified Status: Acute Assessment and Plan: Resolved Patient had a cardiac arrest after placement of a percutaneous drain in the pelvic abscess. Could be related to vasovagal, translocation of bacteria, hypoxia as patient was laying flat, hypovolemia, acidosis -successful ROSC x2, intubated in the CT scan suite by ER physician -patient did follow commands post code a continue, so not a candidate for targeted temperature management -will continue to treat underlying cause (2) Septic shock: Code(s): A41.9 - Sepsis, unspecified organism; R65.21 - Severe sepsis with septic shock Status: Acute Assessment and Plan: 02/01:In the ICU patient dropped her blood pressures -patient has been adequately fluid-resuscitated with IV fluids and albumin -01/25: Blood cultures negative x2 -02/02: repeat blood cultures -growing E coli (pansensitive) and Clostridium ramosum -02/02: Abscess fluid culture growing E coli and Bacteroides fragilis 02/03: WBC count up to 64, could be related to septic shock, infection, leukemoid reaction, steroids. Will continue to monitor -WBC count is trending down, patient is afebrile, continue to monitor --continue meropenem, Flagyl 02/04: Discontinue vancomycin -continue doxycycline for 5 days - weaning stress dose steroid -off all pressors (patient was on Levophed, Bobo-Synephrine and vasopressin) -WBC count trending down 02/04: Repeat blood cultures growing Clostridium ramosum, bacteroids fragilis 02/09: Repeat blood culture shows no growth 02/11:Removal of pelvic abscess drain by surgery 02/12: Patient successfully underwent transgluteal percutaneous abscess drain placement with IR. 02/15 abscess culture from 02/12 positive for E coli on Augmentin and Flagyl per Culture to complete 02/20/25 (3) Acute respiratory failure: Qualifiers: Respiratory failure complication: hypoxia Qualified Code(s): J96.01 - Acute respiratory failure with hypoxia Code(s): J96.00 - Acute respiratory failure, unspecified whether with hypoxia or hypercapnia Status: Acute Assessment and Plan: Acute respiratory failure likely related to cardiac arrest possible from septic shock, infection, hypovolemia, translocation of bacteria, acidosis, hypoxia -patient intubated in the CT scan suite by ER physician -02/06: Extubated Accidentally coughed upper ETT was on pressure support ventilation 10/5 for approximately 3 hours and CXR showed bilateral pulm edema with pleural effusion From CHF exacerbation (4) Intra-abdominal abscess: Code(s): K65.1 - Peritoneal abscess Status: Acute Assessment and Plan: Intra-abdominal abscess, status post percutaneous IR drain placement on 02/01/2025 and removal on 02/10/2025.Underwent 02/12 transgluteal percutaneous abscess drain placement by IR -draining purulent material, cultures as above -surgery is following the patient -Continue Meropenem and Metronidazole -culture growing pansensitive E coli; and bacteroides fragilis drain removed Now on Augmentin and Flagyl (5) Diabetes 1.5, managed as type 2: Code(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 hydralazine IV -once patient starts taking p.o. with will add her home antihypertensive (7) Anemia: Qualifiers: Anemia type: other cause Other causes of anemia: chronic disease, other Qualified Code(s): D63.8 - Anemia in other chronic diseases classified elsewhere Code(s): D64.9 - Anemia, unspecified Status: Acute Assessment and Plan: 02/03: Hemoglobin dropped to 6.3. -will transfuse 1 unit of packed RBC -hemoglobin stable -02/05: hemoglobin dropped to 7.0 -status post 1 unit of packed RBC -iron panel reflective of iron deficiency anemia and/or anemia of chronic disease -folic acid and vitamin B12 levels within normal limits -stool occult was positive -appreciate GI evaluation and no recommendations for endoscopy as patient does not have any overt bleeding -hemoglobin is stable, 8.9 continue to monitor (8) Hypernatremia: Code(s): E87.0 - Hyperosmolality and hypernatremia Status: Acute Assessment and Plan: Started Albumin infusion Na 141 today continue diuresis and monitor (9) Atrial fibrillation: Code(s): I48.91 - Unspecified atrial fibrillation Status: Acute Assessment and Plan: Started Metoprolol PO q 6 hrs [id number] score 3(Age,sex,DM) New onset. TSH wnl ECHO:Left ventricular systolic function is normal, estimated at 55-60% Will defer anticoagulation until discussion with Surgery and Cardiology neurology recommended not starting anticogulation due to hematuria Plan Hypokalemia Resolved replaced on Spironolactone Discontinued Lasix Nephrology consulted hematuria US positive for RBC > 100 Urology consulted and noted they will follow up outpatient recommended holding full anticoagulation meantime Diastolic CHF exacerbation ECHO showed grade I diastolic function Patient has anasarca Spironolactone 50mg bid Hold Lasix due to hypokalemia monitor DVT prophylaxis on Sq Lovenox Subjective Date/time seen: 02/23/25 16:16 Interval history: Patient family is concerned about diarrhea. Will order C diff and stool studies. Review of Systems Review of Systems: All systems reviewed & are unremarkable except as noted in HPI and below ROS unobtainable: Yes unobtainable due to endotracheal tube, unobtainable due to medical condition and unobtainable due to mental status Exam Narrative: General: Obese female, currently in no acute distress HEENT:? Pupils equal and reactive, sclera is clear, Airvo in place Neck:? Supple Respiratory:? Coarse breath sounds bilaterally, decreased at bases, no wheezing, adequate air entry Cardiac:? S1-S2 normal, regular rate and rhythm Abdomen:? Soft, nontender, obese, hypoactive bowel sounds, left lower quadrant drain in place with purulent drainage Extremities:? Bilateral upper and lower extremity pitting edema, improving Neuro:? Of Precedex. More awake, alert, able to answer questions, follows simple commands, Skin:? No skin lesions noted Psych:? Depressed affect Const: General: comfortable and no acute distress Other: , female, elderly, disheveled. Nontoxic appearance. HENMT: Face/Nose/Sinus: Normal nares present Mouth: Yes moist mucous membranes Eyes: General: appearance normal, both eyes and all related structures Sclera: sclerae normal Pupils: Equal, round and reactive pupils present EOM: EOMs intact bilaterally Resp: Effort & Inspection: normal respiratory effort Auscultation: clear to auscultation bilaterally Cardio: Rate: regular rate Rhythm: regular rhythm Other: S1-S2 present without murmur, rub, ectopy GI: Other: tender in the lower quadrants. hyperactive bowel sounds in the upper quadrants, normoactive in the lower. Nondistended, soft. Skin: General skin exam: normal color and no rashes or lesions noted Wounds: no wounds Neuro: Cranial nerves: Yes Equal, round and reactive pupils present Speech: normal speech Motor exam (neuro): 5/5 motor strength present throughout Sensory Exam: normal sensation Other: A&O x4 Extrem: General: normal to inspection Psych: Mental Status: mental status grossly normal Affect: normal affect Other: Malodorous, disheveled. Fair insight and judgment, pleasant. Objective Data Vital Signs Vital Signs: Vital Signs - 24 hr 02/22/25 20:00 02/22/25 21:16 02/22/25 21:20 Temperature 96.8 F L Pulse Rate 74 76 76 Respiratory Rate 16 Blood Pressure 136/74 Pulse Oximetry 96 02/23/25 00:00 02/23/25 04:00 02/23/25 05:35 Temperature 97.2 F L Pulse Rate 63 64 65 Respiratory Rate 18 Blood Pressure 148/81 H Pulse Oximetry 93 02/23/25 08:00 02/23/25 08:07 02/23/25 12:00 Temperature Pulse Rate 65 65 63 Respiratory Rate Blood Pressure Pulse Oximetry 02/23/25 14:00 Temperature 97.6 F Pulse Rate 71 Respiratory Rate 18 Blood Pressure 137/63 Pulse Oximetry 90 Intake/Output Intake/Output: Intake & Output 02/20/25 02/21/25 02/22/25 02/23/25 23:59 23:59 23:59 23:59 Intake Total 580 670 790 150 Output Total 2300 1250 450 Balance -1720 -580 340 150 Meds/Results Medications: Active Medications Generic Name Dose Route Start Last Admin Trade Name Freq PRN Reason Stop Dose Admin Acetaminophen 650 mg 01/25/25 20:51 02/22/25 21:14 Acetaminophen 325 Mg Tablet PO 650 mg Q4H PRN Administration Headache Amoxicillin/Clavulanate Potassium 1 tablet 02/15/25 14:00 02/23/25 15:29 Amoxicillin/Clavulanate K 875-125 Mg Tab PO 02/28/25 23:59 1 tablet Q8HR KANDIS Administration Dextrose 12.5 gm 01/25/25 20:46 01/26/25 11:40 Dextrose 50% 25 Gm/50 Ml Syringe IV PUSH 12.5 gm PRN PRN Administration Hypoglycemia Protocol Enoxaparin Sodium 40 mg 02/08/25 09:00 02/23/25 08:08 Enoxaparin 40 Mg/0.4 Ml Syringe SUB-Q 40 mg DAILY KANDIS Administration Fluticasone Propionate 1 spray 02/07/25 11:00 02/23/25 08:10 Fluticasone Propionate 0.05% Na Spr 16 Gm Btl (*Bkc) NASAL Not Given Q12HR KANDIS Glucagon 1 mg 01/25/25 20:46 Glucagon For Inj 1 Mg Vial IM PRN PRN Hypoglycemia Protocol Glucose 15 gm 01/25/25 20:46 Glucose Oral Gel 15 Gm Of Glucse In 37.5 Gm Tube PO PRN PRN Hypoglycemia Protocol Hydralazine HCl 10 mg 02/06/25 09:58 02/08/25 16:30 Hydralazine Hcl 20 Mg/Ml Vial IV PUSH 10 mg Q4H PRN Administration Blood Pressure - High Dextrose 1,000 mls @ 100 mls/hr 01/25/25 20:46 Dextrose 5% 1,000 Ml IVPB PRN PRN Hypoglycemia Protocol Insulin Aspart 4 - 8 units 02/12/25 08:00 02/23/25 12:30 Insulin Aspart (*Bkc) 100 Units/Ml SUB-Q Not Given [facility] Protocol Insulin Aspart 2 - 4 units 02/11/25 22:45 02/22/25 21:09 Insulin Aspart (*Bkc) 100 Units/Ml SUB-Q Not Given HS KANDIS Protocol Insulin Glargine 10 units 01/29/25 21:00 02/22/25 21:10 Insulin Glargine (*Bkc) 100 Units/Ml SUB-Q 10 units HS KANDIS Administration Insulin Glargine 20 units 02/06/25 07:55 02/07/25 08:43 Insulin Glargine (*Bkc) 100 Units/Ml SUB-Q 20 units DAILY KANDIS Administration Ipratropium Julian 0.5 mg 02/15/25 16:33 Ipratropium Br 0.02% Inh Soln 0.5 Mg/2.5 Ml Vial INHALATION Q6HRT PRN Wheezing Lactobacillus Acidophilus 1 pkt 02/03/25 09:00 02/07/25 12:15 Acidophilus Packet 1 Pkt Packet PO Not Given QID KANDIS Levalbuterol HCl 0.63 mg 02/15/25 16:34 Levalbuterol Neb 1.25 Mg/3 Ml INHALATION Q6HRT PRN Wheezing Metoprolol Tartrate 5 mg 02/09/25 23:21 02/09/25 23:57 Metoprolol Tartrate Inj 5 Mg/5 Ml Vial IV PUSH 5 mg Q4H PRN Administration afib >130 Metoprolol Tartrate 37.5 mg 02/17/25 21:00 02/23/25 08:07 Metoprolol Tartrate 12.5 Mg Tablet PO 37.5 mg Q12HR KANDIS Administration Metronidazole 500 mg 02/11/25 12:00 02/23/25 12:37 Metronidazole 500 Mg Tablet PO 02/28/25 23:59 500 mg Q6HR KANDIS Administration Ondansetron HCl 4 mg 01/25/25 20:51 02/06/25 22:13 Ondansetron Inj 4 Mg/2 Ml Vial IV PUSH 4 mg Q6H PRN Administration Nausea And Vomiting Pantoprazole Sodium 40 mg 02/17/25 09:00 02/23/25 08:08 Pantoprazole 40 Mg Tablet PO 40 mg Q12HR KANDIS Administration Potassium Chloride 40 meq 02/23/25 09:00 02/23/25 08:08 Potassium Chloride 20 Meq Packet (For Liquid) PO 40 meq DAILY KANDIS Administration Spironolactone 50 mg 02/18/25 17:00 02/23/25 08:08 Spironolactone 25 Mg Tablet PO 50 mg BID KANDIS Administration Tamsulosin HCl 0.4 mg 02/12/25 09:00 02/23/25 08:07 Tamsulosin Hcl 0.4 Mg Capsule PO 0.4 mg QAM KADNIS Administration Radiology Results: ITS Impressions Pelvis CT 01/26/25 14:17 IMPRESSION: 1. No significant change in a bilobed gas and fluid containing abscess in the deep pelvis. Patient canceled the planned percutaneous abscess drainage catheter placement due to discomfort despite attempts at repositioning. Abdomen X-Ray 02/07/25 08:16 IMPRESSION: NO ACUTE ABDOMINAL FINDINGS. Catheter Placement CT 02/12/25 14:51 IMPRESSION: 1. Successful CT-guided pelvic abscess drainage catheter placement. 2. 10 mL fluid was sent for aerobic and anaerobic cultures. 3. The catheter will be managed by Dr. Goins. Abdomen/Pelvis CT 02/15/25 08:26 IMPRESSION: 1. Significant decrease in size of a presacral abscess likely related to prior sigmoid diverticulitis post right transgluteal percutaneous abscess drainage catheter placement. 2. Small bilateral pleural effusions with dependent compressive atelectasis in both lungs. 3. Cholelithiasis. 4. Bilateral nonobstructing nephrolithiasis. Modified Barium Swallow 02/15/25 11:41 IMPRESSION: Pharyngeal dysphagia with laryngeal penetration without aspiration. Please correlate with speech pathologist findings and specific feeding recommendations. Chest X-Ray 02/15/25 12:09 IMPRESSION: 1. Small bilateral pleural effusions with associated bibasilar atelectasis and/or pneumonia. Labs Labs: Laboratory Results - last 24 hr 02/22/25 02/22/25 02/22/25 16:14 20:15 21:07 WBC RBC Hgb Hct MCV MCH MCHC RDW Plt Count MPV Immature Gran % (Auto) Neut % (Auto) Lymph % (Auto) Payne % (Auto) Eos % (Auto) Baso % (Auto) Lymph # (Auto) Payne # (Auto) Eos # (Auto) Baso # (Auto) Abs Immat Gran (auto) Absolute Neuts (auto) Absolute Nucleated RBC Band Neutrophils % Nucleated RBC % Platelet Estimate Hypochromasia Anisocytosis Schistocytes Sodium Potassium 3.3 L Chloride Carbon Dioxide Anion Gap BUN Creatinine Estim Creat Clear Calc Estimated GFR Glucose POC Capillary Glucose 217 H 153 H Calcium Magnesium Total Bilirubin AST ALT Alkaline Phosphatase Total Protein Albumin 02/23/25 02/23/25 02/23/25 05:22 07:40 11:31 WBC 8.1 RBC 3.48 L Hgb 9.1 L Hct 31.7 L MCV 91.1 MCH 26.1 MCHC 28.7 L RDW 25.3 H Plt Count 199 MPV 10.6 H Immature Gran % (Auto) 0.5 Neut % (Auto) 81.0 H Lymph % (Auto) 9.6 L Payne % (Auto) 6.5 Eos % (Auto) 1.9 Baso % (Auto) 0.5 Lymph # (Auto) 0.77 L Payne # (Auto) 0.5 Eos # (Auto) 0.2 Baso # (Auto) 0.0 Abs Immat Gran (auto) 0.04 H Absolute Neuts (auto) 6.5 Absolute Nucleated RBC 0.000 Band Neutrophils % Not Reportable Nucleated RBC % 0.0 Platelet Estimate Adequate Hypochromasia 1+ Anisocytosis 1+ Schistocytes None seen Sodium 142 Potassium 3.5 Chloride 105 Carbon Dioxide 33 H Anion Gap 4 BUN 15 Creatinine 0.67 L Estim Creat Clear Calc 77 Estimated GFR > 60 Glucose 106 POC Capillary Glucose 110 H 176 H Calcium 8.2 L Magnesium 2.1 Total Bilirubin 1.1 AST 22 ALT 10 Alkaline Phosphatase 153 H Total Protein 6.0 L Albumin 2.7 L Quality VTE Prophylaxis VTE prophylaxis: pharmacologic ordered Hospitalist MIPS Advance Care Plan I have confirmed that the patient's Advanced Care Plan is present, code status is documented, or surrogate decision maker is listed in patient medical record.: Yes Medication Reconciliation I have utilized all available resources to obtain, update and review the patients current medications (includes all prescriptions, OTC, herbals, cannabis, and nutritional supplements).: Yes
[2025-02-23 16:35] LABS: Glucose Point of Care 138 mg/dl (65-105)
[2025-02-23] MEDS: ACETAMINOPHEN 325 MG TABLET 650 MG PO (19:00)
[2025-02-23 19:46] LABS: Toxigenic C. Diff NEGATIVE (NEGATIVE)
[2025-02-23] MEDS: INSULIN GLARGINE (*BKC) 100 UNITS/ML 10 UNITS SUB-Q (21:01)
[2025-02-23 22:55] LABS: Glucose Point of Care 197 mg/dl (65-105)
[2025-02-24] VITALS (11 sets, daily range): BP systolic 126–156; BP diastolic 69–84; PULSE 52–108; RESP 14–16; TEMP 35.9–37.1; O2SAT 97–100
[2025-02-24] MEDS: metroNIDAZOLE 500 MG TABLET PO ×5 (01:00→23:01)
[2025-02-24] MEDS: AMOXICILLIN/CLAVULANATE K 875-125 MG TAB 1 TABLET PO ×3 (05:33→20:18)
[2025-02-24 06:21] LABS: Hematocrit 31.3 % (37.0-47.0); Hemoglobin 9.1 g/dL (12.0-15.0); Mean Corpuscular HGB Conc 29.1 g/dl (32-36); Mean Corpuscular Hemoglobin 25.9 pg (26-34); Mean Corpuscular Volume 89.2 fl (80-100); Mean Platelet Volume 10.7 fl (7.4-10.4); Platelet Count Result 199 k/mm3 (150-375); Red Blood Count 3.51 M/mm3 (4.2-5.4); Red Cell Distribution Width 25.9 % (11.5-14.5)
[2025-02-24 06:52] LABS: Alanine Aminotransferase 9 U/L (6-35); Albumin Level 2.7 g/dL (3.5-5.1); Alkaline Phosphatase 151 U/L (38-126); Anion Gap 5 mmol/L (4-12); Aspartate Amino Transferase 24 U/L (14-36); Blood Urea Nitrogen 15 mg/dL (7-17); Calcium 8.2 mg/dL (8.4-10.2); Carbon Dioxide 28 mmol/L (22-30); Chloride 106 mmol/L (98-107); Estimated CRCL calculation 86 ml/min; Estimated Glomerular Filt Rate > 60; Glucose 103 mg/dL (65-110); Potassium 3.8 mmol/L (3.4-5.0); Sodium 139 mmol/L (137-145)
[2025-02-24 07:38] LABS: Glucose Point of Care 111 mg/dl (65-105)
[2025-02-24] MEDS: ENOXAPARIN 40 MG/0.4 ML SYRINGE SUB-Q (08:18)
[2025-02-24] MEDS: SPIRONOLACTONE 25 MG TABLET 50 MG PO ×2 (08:19→17:07)
[2025-02-24] MEDS: METOPROLOL TARTRATE 12.5 MG TABLET 37.5 MG PO ×2 (08:19→20:17)
[2025-02-24] MEDS: TAMSULOSIN HCL 0.4 MG CAPSULE PO (08:19)
[2025-02-24] MEDS: PANTOPRAZOLE 40 MG TABLET PO ×2 (08:19→20:18)
[2025-02-24] MEDS: POTASSIUM CHLORIDE 20 MEQ PACKET (FOR LIQUID) 40 MEQ PO (08:19)
--- NOTE | 2025-02-24 09:46 | P.PNNP_ITS ---
Progress Note: A&P Assessment and Plan (1) Hypokalemia: Code(s): E87.6 - Hypokalemia Status: Acute Assessment and Plan: * stable at this time * as noted during this hospital stay * labs prior to this admission demonstrated her potassium in the normal range * suspect this is secondary to total body store depletion of potassium complicated by her suboptimal oral intake in the last several days along with possible GI loss (on/off diarrhea) and need for diuresis given her anasarca * agree with current aggressive supplementation although oral is favored over IV but this may be limited by her poor tolerance to oral intake * off loop diuretics and on spironolactone which should help as well * consider weaning spironolactone and K+ supplementation depending on nutritional intake on discharge * follow trend of repeat potassium levels (2) Intra-abdominal abscess: Code(s): K65.1 - Peritoneal abscess Status: Acute Assessment and Plan: * as noted by imaging during this hospital stay * status post percutaneous IR drain placement on 02/01/2025 and removal * s/p transgluteal percutaneous abscess drain placement by IR on 02/12 with removal * General Surgery is following * on antibiotics * cultures growing pansensitive E coli and Bacteroides fragilis (3) Diastolic heart failure: Code(s): I50.30 - Unspecified diastolic (congestive) heart failure Status: Chronic Assessment and Plan: * Echo results noted (on 02/05): * left ventricular systolic function is normal, estimated at 55-60% * left ventricular diastolic function is grade I diastolic dysfunction. * mild tricuspid valve regurgitation * mild pulmonary hypertension, estimated pulmonary arterial systolic pressure is 46 mmHg * lasix on hold due to #1 * on spironolactone 50mg bid * follow volume status (4) Anemia: Qualifiers: Anemia type: other cause Other causes of anemia: chronic disease, other Qualified Code(s): D63.8 - Anemia in other chronic diseases classified elsewhere Code(s): D64.9 - Anemia, unspecified Status: Acute Assessment and Plan: * relatively stable * Hgb did drop as low as 6.3 (on 01/24) * anemia panel demonstrated iron deficiency * hemoccult positive stools * suspect acute illness on admission playing a role as well * hematuria contributing(?) * PRBC transfusion per protocol * GI recommendations noted * follow trend of H/H (5) Atrial fibrillation: Code(s): I48.91 - Unspecified atrial fibrillation Status: Acute Assessment and Plan: * rate control strategy * holding anticoagulation due to hematuria (6) Hypertension: Qualifiers: Hypertension type: unspecified Qualified Code(s): I10 - Essential (primary) hypertension Code(s): I10 - Essential (primary) hypertension Status: Acute Assessment and Plan: * reasonable control * follow trend of hemodynamics (7) Hematuria: Code(s): R31.9 - Hematuria, unspecified Status: Acute Assessment and Plan: * as noted by UA and inspection of burgos * holding anticoagulation at this time * Urology recommendations noted (8) Diabetes 1.5, managed as type 2: Code(s): E13.9 - Other specified diabetes mellitus without complications Status: Acute Assessment and Plan: * follow accu-cheks * glycemic control per hospitalist Not much else to add from renal perspective given relative stability in potassium for the last few days. Will continue to follow from a distance. L Subjective Date/time seen: 02/24/25 09:46 Interval history: Follow-up for acute hypokalemia. Potassium remains stable with current interventions/therapy (daily potassium supplements + spironolactone); diarrhea still present but seems less frequent -- stool study results noted; still feels a bit fatigued/weak at the time of my visit. Exam 2 Narrative: General: elderly but WD/WN female in NAD Heart: normal S1 and S2; no rub Lungs: coarse breath sounds; decreased at bases Abdomen: soft, nontender, nondistended, positive bowel sounds Extremities: no cyanosis or clubbing; trace - 1+ edema Skin: warm and intact Objective Data Vital Signs Vital Signs: Vital Signs Temp Pulse Resp BP Pulse Ox 02/24/25 08:19 63 02/24/25 08:00 52 L 02/24/25 05:55 96.6 F L 63 16 156/74 H 97 02/24/25 04:00 63 02/24/25 00:00 53 L 02/23/25 21:43 97.3 F L 96 16 128/60 97 02/23/25 20:53 74 02/23/25 20:00 68 Intake/Output Intake/Output: Intake & Output 02/21/25 02/22/25 02/23/25 02/24/25 23:59 23:59 23:59 23:59 Intake Total 670 415 321 0778 Output Total 1250 450 100 Balance -580 948 866 8550 Meds/Results Medications: Active Medications Generic Name Dose Route Start Last Admin Trade Name Freq PRN Reason Stop Dose Admin Acetaminophen 650 mg 01/25/25 20:51 02/24/25 14:38 Acetaminophen 325 Mg Tablet PO 650 mg Q4H PRN Administration Headache Amoxicillin/Clavulanate Potassium 1 tablet 02/15/25 14:00 02/24/25 13:05 Amoxicillin/Clavulanate K 875-125 Mg Tab PO 02/28/25 23:59 1 tablet Q8HR KANDIS Administration Dextrose 12.5 gm 01/25/25 20:46 01/26/25 11:40 Dextrose 50% 25 Gm/50 Ml Syringe IV PUSH 12.5 gm PRN PRN Administration Hypoglycemia Protocol Enoxaparin Sodium 40 mg 02/08/25 09:00 02/24/25 08:18 Enoxaparin 40 Mg/0.4 Ml Syringe SUB-Q 40 mg DAILY KANDIS Administration Fluticasone Propionate 1 spray 02/07/25 11:00 02/24/25 08:20 Fluticasone Propionate 0.05% Na Spr 16 Gm Btl (*Bkc) NASAL Not Given Q12HR KANDIS Glucagon 1 mg 01/25/25 20:46 Glucagon For Inj 1 Mg Vial IM PRN PRN Hypoglycemia Protocol Glucose 15 gm 01/25/25 20:46 Glucose Oral Gel 15 Gm Of Glucse In 37.5 Gm Tube PO PRN PRN Hypoglycemia Protocol Hydralazine HCl 10 mg 02/06/25 09:58 02/08/25 16:30 Hydralazine Hcl 20 Mg/Ml Vial IV PUSH 10 mg Q4H PRN Administration Blood Pressure - High Dextrose 1,000 mls @ 100 mls/hr 01/25/25 20:46 Dextrose 5% 1,000 Ml IVPB PRN PRN Hypoglycemia Protocol Insulin Aspart 4 - 8 units 02/12/25 08:00 02/24/25 11:38 Insulin Aspart (*Bkc) 100 Units/Ml SUB-Q Not Given TIDWM KANDIS Protocol Insulin Aspart 2 - 4 units 02/11/25 22:45 02/23/25 21:15 Insulin Aspart (*Bkc) 100 Units/Ml SUB-Q Not Given HS KANDIS Protocol Insulin Glargine 10 units 01/29/25 21:00 02/23/25 21:01 Insulin Glargine (*Bkc) 100 Units/Ml SUB-Q 10 units HS KANDIS Administration Insulin Glargine 20 units 02/06/25 07:55 02/07/25 08:43 Insulin Glargine (*Bkc) 100 Units/Ml SUB-Q 20 units DAILY KANDIS Administration Ipratropium [place] 0.5 mg 02/15/25 16:33 Ipratropium Br 0.02% Inh Soln 0.5 Mg/2.5 Ml Vial INHALATION Q6HRT PRN Wheezing Lactobacillus Acidophilus 1 pkt 02/03/25 09:00 02/07/25 12:15 Acidophilus Packet 1 Pkt Packet PO Not Given QID KANDIS Levalbuterol HCl 0.63 mg 02/15/25 16:34 Levalbuterol Neb 1.25 Mg/3 Ml INHALATION Q6HRT PRN Wheezing Metoprolol Tartrate 5 mg 02/09/25 23:21 02/09/25 23:57 Metoprolol Tartrate Inj 5 Mg/5 Ml Vial IV PUSH 5 mg Q4H PRN Administration afib >130 Metoprolol Tartrate 37.5 mg 02/17/25 21:00 02/24/25 08:19 Metoprolol Tartrate 12.5 Mg Tablet PO 37.5 mg Q12HR KANDIS Administration Metronidazole 500 mg 02/11/25 12:00 02/24/25 11:14 Metronidazole 500 Mg Tablet PO 02/28/25 23:59 500 mg Q6HR KANDIS Administration Miscellaneous Information 1 each 02/23/25 00:01 Tylenol, Dextrose/Glucagon/Glucose From Adult Insulin Protocol, And Zofran Need To Be Kalen XX 03/25/25 00:00 CLARIFY KANDIS Ondansetron HCl 4 mg 01/25/25 20:51 02/06/25 22:13 Ondansetron Inj 4 Mg/2 Ml Vial IV PUSH 4 mg Q6H PRN Administration Nausea And Vomiting Pantoprazole Sodium 40 mg 02/17/25 09:00 02/24/25 08:19 Pantoprazole 40 Mg Tablet PO 40 mg Q12HR KANDIS Administration Potassium Chloride 40 meq 02/23/25 09:00 02/24/25 08:19 Potassium Chloride 20 Meq Packet (For Liquid) PO 40 meq DAILY KANDIS Administration Spironolactone 50 mg 02/18/25 17:00 02/24/25 08:19 Spironolactone 25 Mg Tablet PO 50 mg BID KANDIS Administration Tamsulosin HCl 0.4 mg 02/12/25 09:00 02/24/25 08:19 Tamsulosin Hcl 0.4 Mg Capsule PO 0.4 mg QAM KANDIS Administration Radiology Results: ITS Impressions Pelvis CT 01/26/25 14:17 IMPRESSION: 1. No significant change in a bilobed gas and fluid containing abscess in the deep pelvis. Patient canceled the planned percutaneous abscess drainage catheter placement due to discomfort despite attempts at repositioning. Abdomen X-Ray 02/07/25 08:16 IMPRESSION: NO ACUTE ABDOMINAL FINDINGS. Catheter Placement CT 02/12/25 14:51 IMPRESSION: 1. Successful CT-guided pelvic abscess drainage catheter placement. 2. 10 mL fluid was sent for aerobic and anaerobic cultures. 3. The catheter will be managed by Dr. Goins. Abdomen/Pelvis CT 02/15/25 08:26 IMPRESSION: 1. Significant decrease in size of a presacral abscess likely related to prior sigmoid diverticulitis post right transgluteal percutaneous abscess drainage catheter placement. 2. Small bilateral pleural effusions with dependent compressive atelectasis in both lungs. 3. Cholelithiasis. 4. Bilateral nonobstructing nephrolithiasis. Modified Barium Swallow 02/15/25 11:41 IMPRESSION: Pharyngeal dysphagia with laryngeal penetration without aspiration. Please correlate with speech pathologist findings and specific feeding recommendations. Chest X-Ray 02/15/25 12:09 IMPRESSION: 1. Small bilateral pleural effusions with associated bibasilar atelectasis and/or pneumonia. Labs Labs: Laboratory Tests 02/24/25 05:09 02/24/25 05:09 Calcium 8.2 L Total Bilirubin 1.0 AST 24 ALT 9 Alkaline Phosphatase 151 H Total Protein 6.0 L Albumin 2.7 L Microbiology 02/23/25 21:14 Stool Stool for WBCs - Final 02/23/25 21:14 Stool Escherichia coli Shiga Toxins - Final 02/23/25 21:14 Stool Campylobacter Antigen Assay - Final
--- NOTE | 2025-02-24 10:57 | PCNFU ---
Nutrition Follow-Up Complete: Inadequate energy intake related to swallowing difficulty as evidenced by NPO Diet textures appropriate for patient needs - Goal is being met with current diet Goal: Pt current nutrition is Diabetic consistent carbs, L7 easy to chew, Glucerna TID (220 kcal, 10 g protein). Nutrition recommendation: No new recommendations. Continue current nutrition care plan and orders. Agree with orders Last recorded weight is 102.6 kg. Bowel Motility: +6 BMs 02/23/25. C-diff study being done for diarrhea Labs Reviewed: Hgb 9.1, Hct 31.3, Alb 2.7, Cre 0.59 Meds Noted: Insulin, protonix, Kcl Skin: WNL Additional Notes: Appetite remains poor. Still having diarrhea. Continue current orders. Monitor swallowing ability, intake, wt, labs. Follow up in 3 days.
[2025-02-24 11:40] LABS: Glucose Point of Care 182 mg/dl (65-105)
[2025-02-24] MEDS: ACETAMINOPHEN 325 MG TABLET 650 MG PO ×2 (14:38→20:20)
[2025-02-24] MEDS: LOPERAMIDE HCL 2 MG CAPSULE 4 MG PO (14:44)
--- NOTE | 2025-02-24 16:45 | PM.IMPN ---
Progress Note: A&P Assessment and Plan (1) Cardiac arrest: Code(s): I46.9 - Cardiac arrest, cause unspecified Status: Acute Assessment and Plan: Resolved Patient had a cardiac arrest after placement of a percutaneous drain in the pelvic abscess. Could be related to vasovagal, translocation of bacteria, hypoxia as patient was laying flat, hypovolemia, acidosis -successful ROSC x2, intubated in the CT scan suite by ER physician -patient did follow commands post code a continue, so not a candidate for targeted temperature management -will continue to treat underlying cause (2) Septic shock: Code(s): A41.9 - Sepsis, unspecified organism; R65.21 - Severe sepsis with septic shock Status: Acute Assessment and Plan: 02/01:In the ICU patient dropped her blood pressures -patient has been adequately fluid-resuscitated with IV fluids and albumin -01/25: Blood cultures negative x2 -02/02: repeat blood cultures -growing E coli (pansensitive) and Clostridium ramosum -02/02: Abscess fluid culture growing E coli and Bacteroides fragilis 02/03: WBC count up to 64, could be related to septic shock, infection, leukemoid reaction, steroids. Will continue to monitor -WBC count is trending down, patient is afebrile, continue to monitor --continue meropenem, Flagyl 02/04: Discontinue vancomycin -continue doxycycline for 5 days - weaning stress dose steroid -off all pressors (patient was on Levophed, Bobo-Synephrine and vasopressin) -WBC count trending down 02/04: Repeat blood cultures growing Clostridium ramosum, bacteroids fragilis 02/09: Repeat blood culture shows no growth 02/11:Removal of pelvic abscess drain by surgery 02/12: Patient successfully underwent transgluteal percutaneous abscess drain placement with IR. 02/15 abscess culture from 02/12 positive for E coli on Augmentin and Flagyl per Culture to complete 02/20/25 (3) Acute respiratory failure: Qualifiers: Respiratory failure complication: hypoxia Qualified Code(s): J96.01 - Acute respiratory failure with hypoxia Code(s): J96.00 - Acute respiratory failure, unspecified whether with hypoxia or hypercapnia Status: Acute Assessment and Plan: Acute respiratory failure likely related to cardiac arrest possible from septic shock, infection, hypovolemia, translocation of bacteria, acidosis, hypoxia -patient intubated in the CT scan suite by ER physician -02/06: Extubated Accidentally coughed upper ETT was on pressure support ventilation 10/5 for approximately 3 hours and CXR showed bilateral pulm edema with pleural effusion From CHF exacerbation (4) Intra-abdominal abscess: Code(s): K65.1 - Peritoneal abscess Status: Acute Assessment and Plan: Intra-abdominal abscess, status post percutaneous IR drain placement on 02/01/2025 and removal on 02/10/2025.Underwent 02/12 transgluteal percutaneous abscess drain placement by IR -draining purulent material, cultures as above -surgery is following the patient -Continue Meropenem and Metronidazole -culture growing pansensitive E coli; and bacteroides fragilis drain removed Now on Augmentin and Flagyl (5) Diabetes 1.5, managed as type 2: Code(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 hydralazine IV -once patient starts taking p.o. with will add her home antihypertensive (7) Anemia: Qualifiers: Anemia type: other cause Other causes of anemia: chronic disease, other Qualified Code(s): D63.8 - Anemia in other chronic diseases classified elsewhere Code(s): D64.9 - Anemia, unspecified Status: Acute Assessment and Plan: 02/03: Hemoglobin dropped to 6.3. -will transfuse 1 unit of packed RBC -hemoglobin stable -02/05: hemoglobin dropped to 7.0 -status post 1 unit of packed RBC -iron panel reflective of iron deficiency anemia and/or anemia of chronic disease -folic acid and vitamin B12 levels within normal limits -stool occult was positive -appreciate GI evaluation and no recommendations for endoscopy as patient does not have any overt bleeding -hemoglobin is stable, 8.9 continue to monitor (8) Hypernatremia: Code(s): E87.0 - Hyperosmolality and hypernatremia Status: Acute Assessment and Plan: Started Albumin infusion Na 141 today continue diuresis and monitor (9) Atrial fibrillation: Code(s): I48.91 - Unspecified atrial fibrillation Status: Acute Assessment and Plan: Started Metoprolol PO q 6 hrs [id number] score 3(Age,sex,DM) New onset. TSH wnl ECHO:Left ventricular systolic function is normal, estimated at 55-60% Will defer anticoagulation until discussion with Surgery and Cardiology neurology recommended not starting anticogulation due to hematuria Plan Hypokalemia Resolved replaced on Spironolactone Discontinued Lasix Nephrology consulted hematuria US positive for RBC > 100 Urology consulted and noted they will follow up outpatient recommended holding full anticoagulation meantime Diastolic CHF exacerbation ECHO showed grade I diastolic function Patient has anasarca Spironolactone 50mg bid Hold Lasix due to hypokalemia monitor DVT prophylaxis on Sq Lovenox Subjective Date/time seen: 02/24/25 16:45 Interval history: Patient seen episodes of diarrhea. Patient reports of tiredness. The patient will be given loperamide. Will discharge tomorrow Review of Systems Review of Systems: All systems reviewed & are unremarkable except as noted in HPI and below ROS unobtainable: Yes unobtainable due to endotracheal tube, unobtainable due to medical condition and unobtainable due to mental status Exam Narrative: General: Obese female, currently in no acute distress HEENT:? Pupils equal and reactive, sclera is clear, Airvo in place Neck:? Supple Respiratory:? Coarse breath sounds bilaterally, decreased at bases, no wheezing, adequate air entry Cardiac:? S1-S2 normal, regular rate and rhythm Abdomen:? Soft, nontender, obese, hypoactive bowel sounds, left lower quadrant drain in place with purulent drainage Extremities:? Bilateral upper and lower extremity pitting edema, improving Neuro:? Of Precedex. More awake, alert, able to answer questions, follows simple commands, Skin:? No skin lesions noted Psych:? Depressed affect Const: General: comfortable and no acute distress Other: , female, elderly, disheveled. Nontoxic appearance. HENMT: Face/Nose/Sinus: Normal nares present Mouth: Yes moist mucous membranes Eyes: General: appearance normal, both eyes and all related structures Sclera: sclerae normal Pupils: Equal, round and reactive pupils present EOM: EOMs intact bilaterally Resp: Effort & Inspection: normal respiratory effort Auscultation: clear to auscultation bilaterally Cardio: Rate: regular rate Rhythm: regular rhythm Other: S1-S2 present without murmur, rub, ectopy GI: Other: tender in the lower quadrants. hyperactive bowel sounds in the upper quadrants, normoactive in the lower. Nondistended, soft. Skin: General skin exam: normal color and no rashes or lesions noted Wounds: no wounds Neuro: Cranial nerves: Yes Equal, round and reactive pupils present Speech: normal speech Motor exam (neuro): 5/5 motor strength present throughout Sensory Exam: normal sensation Other: A&O x4 Extrem: General: normal to inspection Psych: Mental Status: mental status grossly normal Affect: normal affect Other: Malodorous, disheveled. Fair insight and judgment, pleasant. Objective Data Vital Signs Vital Signs: Vital Signs - 24 hr 02/23/25 20:00 02/23/25 20:53 02/23/25 21:43 Temperature 97.3 F L Pulse Rate 68 74 96 Respiratory Rate 16 Blood Pressure 128/60 Pulse Oximetry 97 02/24/25 00:00 02/24/25 04:00 02/24/25 05:55 Temperature 96.6 F L Pulse Rate 53 L 63 63 Respiratory Rate 16 Blood Pressure 156/74 H Pulse Oximetry 97 02/24/25 08:00 02/24/25 08:19 02/24/25 14:00 Temperature 97.2 F L Pulse Rate 52 L 63 64 Respiratory Rate 14 Blood Pressure 143/69 H Pulse Oximetry 100 Intake/Output Intake/Output: Intake & Output 02/21/25 02/22/25 02/23/25 02/24/25 23:59 23:59 23:59 23:59 Intake Total 670 972 707 0743 Output Total 1250 450 100 Balance -580 227 475 9754 Meds/Results Medications: Active Medications Generic Name Dose Route Start Last Admin Trade Name Freq PRN Reason Stop Dose Admin Acetaminophen 650 mg 01/25/25 20:51 02/24/25 14:38 Acetaminophen 325 Mg Tablet PO 650 mg Q4H PRN Administration Headache Amoxicillin/Clavulanate Potassium 1 tablet 02/15/25 14:00 02/24/25 13:05 Amoxicillin/Clavulanate K 875-125 Mg Tab PO 02/28/25 23:59 1 tablet Q8HR KANDIS Administration Dextrose 12.5 gm 01/25/25 20:46 01/26/25 11:40 Dextrose 50% 25 Gm/50 Ml Syringe IV PUSH 12.5 gm PRN PRN Administration Hypoglycemia Protocol Enoxaparin Sodium 40 mg 02/08/25 09:00 02/24/25 08:18 Enoxaparin 40 Mg/0.4 Ml Syringe SUB-Q 40 mg DAILY KANDIS Administration Fluticasone Propionate 1 spray 02/07/25 11:00 02/24/25 08:20 Fluticasone Propionate 0.05% Na Spr 16 Gm Btl (*Bkc) NASAL Not Given Q12HR KANDIS Glucagon 1 mg 01/25/25 20:46 Glucagon For Inj 1 Mg Vial IM PRN PRN Hypoglycemia Protocol Glucose 15 gm 01/25/25 20:46 Glucose Oral Gel 15 Gm Of Glucse In 37.5 Gm Tube PO PRN PRN Hypoglycemia Protocol Hydralazine HCl 10 mg 02/06/25 09:58 02/08/25 16:30 Hydralazine Hcl 20 Mg/Ml Vial IV PUSH 10 mg Q4H PRN Administration Blood Pressure - High Dextrose 1,000 mls @ 100 mls/hr 01/25/25 20:46 Dextrose 5% 1,000 Ml IVPB PRN PRN Hypoglycemia Protocol Insulin Aspart 4 - 8 units 02/12/25 08:00 02/24/25 11:38 Insulin Aspart (*Bkc) 100 Units/Ml SUB-Q Not Given TIDWM [facility] Protocol Insulin Aspart 2 - 4 units 02/11/25 22:45 02/23/25 21:15 Insulin Aspart (*Bkc) 100 Units/Ml SUB-Q Not Given HS KANDIS Protocol Insulin Glargine 10 units 01/29/25 21:00 02/23/25 21:01 Insulin Glargine (*Bkc) 100 Units/Ml SUB-Q 10 units HS KANDIS Administration Insulin Glargine 20 units 02/06/25 07:55 02/07/25 08:43 Insulin Glargine (*Bkc) 100 Units/Ml SUB-Q 20 units DAILY KANDIS Administration Ipratropium [place] 0.5 mg 02/15/25 16:33 Ipratropium Br 0.02% Inh Soln 0.5 Mg/2.5 Ml Vial INHALATION Q6HRT PRN Wheezing Lactobacillus Acidophilus 1 pkt 02/03/25 09:00 02/07/25 12:15 Acidophilus Packet 1 Pkt Packet PO Not Given QID KANDIS Levalbuterol HCl 0.63 mg 02/15/25 16:34 Levalbuterol Neb 1.25 Mg/3 Ml INHALATION Q6HRT PRN Wheezing Metoprolol Tartrate 5 mg 02/09/25 23:21 02/09/25 23:57 Metoprolol Tartrate Inj 5 Mg/5 Ml Vial IV PUSH 5 mg Q4H PRN Administration afib >130 Metoprolol Tartrate 37.5 mg 02/17/25 21:00 02/24/25 08:19 Metoprolol Tartrate 12.5 Mg Tablet PO 37.5 mg Q12HR KANDIS Administration Metronidazole 500 mg 02/11/25 12:00 02/24/25 11:14 Metronidazole 500 Mg Tablet PO 02/28/25 23:59 500 mg Q6HR KANDIS Administration Miscellaneous Information 1 each 02/23/25 00:01 Tylenol, Dextrose/Glucagon/Glucose From Adult Insulin Protocol, And Zofran Need To Be Kalen XX 03/25/25 00:00 CLARIFY KANDIS Ondansetron HCl 4 mg 01/25/25 20:51 02/06/25 22:13 Ondansetron Inj 4 Mg/2 Ml Vial IV PUSH 4 mg Q6H PRN Administration Nausea And Vomiting Pantoprazole Sodium 40 mg 02/17/25 09:00 02/24/25 08:19 Pantoprazole 40 Mg Tablet PO 40 mg Q12HR KANDIS Administration Potassium Chloride 40 meq 02/23/25 09:00 02/24/25 08:19 Potassium Chloride 20 Meq Packet (For Liquid) PO 40 meq DAILY KANDIS Administration Spironolactone 50 mg 02/18/25 17:00 02/24/25 08:19 Spironolactone 25 Mg Tablet PO 50 mg BID KANDIS Administration Tamsulosin HCl 0.4 mg 02/12/25 09:00 02/24/25 08:19 Tamsulosin Hcl 0.4 Mg Capsule PO 0.4 mg QAM KANDIS Administration Radiology Results: ITS Impressions Pelvis CT 01/26/25 14:17 IMPRESSION: 1. No significant change in a bilobed gas and fluid containing abscess in the deep pelvis. Patient canceled the planned percutaneous abscess drainage catheter placement due to discomfort despite attempts at repositioning. Abdomen X-Ray 02/07/25 08:16 IMPRESSION: NO ACUTE ABDOMINAL FINDINGS. Catheter Placement CT 02/12/25 14:51 IMPRESSION: 1. Successful CT-guided pelvic abscess drainage catheter placement. 2. 10 mL fluid was sent for aerobic and anaerobic cultures. 3. The catheter will be managed by Dr. Goins. Abdomen/Pelvis CT 02/15/25 08:26 IMPRESSION: 1. Significant decrease in size of a presacral abscess likely related to prior sigmoid diverticulitis post right transgluteal percutaneous abscess drainage catheter placement. 2. Small bilateral pleural effusions with dependent compressive atelectasis in both lungs. 3. Cholelithiasis. 4. Bilateral nonobstructing nephrolithiasis. Modified Barium Swallow 02/15/25 11:41 IMPRESSION: Pharyngeal dysphagia with laryngeal penetration without aspiration. Please correlate with speech pathologist findings and specific feeding recommendations. Chest X-Ray 02/15/25 12:09 IMPRESSION: 1. Small bilateral pleural effusions with associated bibasilar atelectasis and/or pneumonia. Labs Labs: Laboratory Results - last 24 hr 02/23/25 02/23/25 02/24/25 18:39 20:59 05:09 WBC 8.0 RBC 3.51 L Hgb 9.1 L Hct 31.3 L MCV 89.2 MCH 25.9 L MCHC 29.1 L RDW 25.9 H Plt Count 199 MPV 10.7 H Sodium 139 Potassium 3.8 Chloride 106 Carbon Dioxide 28 Anion Gap 5 BUN 15 Creatinine 0.59 L Estim Creat Clear Calc 86 Estimated GFR > 60 Glucose 103 POC Capillary Glucose 197 H Calcium 8.2 L Total Bilirubin 1.0 AST 24 ALT 9 Alkaline Phosphatase 151 H Total Protein 6.0 L Albumin 2.7 L Stool Rotavirus Antigen C. difficile (PCR) Negative 02/24/25 02/24/25 07:34 11:32 WBC RBC Hgb Hct MCV MCH MCHC RDW Plt Count MPV Sodium Potassium Chloride Carbon Dioxide Anion Gap BUN Creatinine Estim Creat Clear Calc Estimated GFR Glucose POC Capillary Glucose 111 H 182 H Calcium Total Bilirubin AST ALT Alkaline Phosphatase Total Protein Albumin Stool Rotavirus Antigen C. difficile (PCR) Quality VTE Prophylaxis VTE prophylaxis: pharmacologic ordered Hospitalist MIPS Advance Care Plan I have confirmed that the patient's Advanced Care Plan is present, code status is documented, or surrogate decision maker is listed in patient medical record.: Yes Medication Reconciliation I have utilized all available resources to obtain, update and review the patients current medications (includes all prescriptions, OTC, herbals, cannabis, and nutritional supplements).: Yes
[2025-02-24] MEDS: FLUTICASONE PROPIONATE 0.05% NA SPR 16 GM BTL (*BKC) 1 SPRAY NASAL (20:19)
[2025-02-24] MEDS: INSULIN GLARGINE (*BKC) 100 UNITS/ML 10 UNITS SUB-Q (20:20)
[2025-02-24 22:17] LABS: Glucose Point of Care 185 mg/dl (65-105)
[2025-02-25] VITALS (8 sets, daily range): BP systolic 133–134; BP diastolic 64–80; PULSE 67–82; RESP 16–22; TEMP 36.1–36.9; O2SAT 96–98
[2025-02-25] MEDS: AMOXICILLIN/CLAVULANATE K 875-125 MG TAB 1 TABLET PO ×2 (05:16→13:51)
[2025-02-25] MEDS: metroNIDAZOLE 500 MG TABLET PO ×2 (05:16→11:27)
[2025-02-25 05:34] LABS: Glucose Point of Care 140 mg/dl (65-105)
[2025-02-25] MEDS: ACETAMINOPHEN 325 MG TABLET 650 MG PO ×2 (05:42→11:26)
[2025-02-25 05:47] LABS: Hematocrit 34.2 % (37.0-47.0); Hemoglobin 10.2 g/dL (12.0-15.0); Mean Corpuscular HGB Conc 29.8 g/dl (32-36); Mean Corpuscular Hemoglobin 26.4 pg (26-34); Mean Corpuscular Volume 88.4 fl (80-100); Mean Platelet Volume 10.1 fl (7.4-10.4); Platelet Count Result 212 k/mm3 (150-375); Red Blood Count 3.87 M/mm3 (4.2-5.4); Red Cell Distribution Width 25.9 % (11.5-14.5); White Blood Count 9.2 K/mm3 (4.5-10.0)
[2025-02-25 06:57] LABS: Alanine Aminotransferase 11 U/L (6-35); Albumin Level 2.8 g/dL (3.5-5.1); Alkaline Phosphatase 168 U/L (38-126); Anion Gap 4 mmol/L (4-12); Aspartate Amino Transferase 24 U/L (14-36); Blood Urea Nitrogen 14 mg/dL (7-17); Calcium 8.2 mg/dL (8.4-10.2); Carbon Dioxide 31 mmol/L (22-30); Chloride 106 mmol/L (98-107); Estimated CRCL calculation 70 ml/min; Estimated Glomerular Filt Rate > 60; Glucose 124 mg/dL (65-110); Potassium 3.8 mmol/L (3.4-5.0); Sodium 141 mmol/L (137-145)
[2025-02-25 08:07] LABS: Glucose Point of Care 143 mg/dl (65-105)
[2025-02-25] MEDS: METOPROLOL TARTRATE 12.5 MG TABLET 37.5 MG PO (08:23)
[2025-02-25] MEDS: TAMSULOSIN HCL 0.4 MG CAPSULE PO (08:23)
[2025-02-25] MEDS: PANTOPRAZOLE 40 MG TABLET PO (08:23)
[2025-02-25] MEDS: POTASSIUM CHLORIDE 20 MEQ PACKET (FOR LIQUID) 40 MEQ PO (08:24)
[2025-02-25] MEDS: SPIRONOLACTONE 25 MG TABLET 50 MG PO (08:24)
[2025-02-25] MEDS: ENOXAPARIN 40 MG/0.4 ML SYRINGE SUB-Q (08:24)
--- NOTE | 2025-02-25 08:52 | ECG_ITS ---
Test Date: 2025-02-25 10:21:14 Measurements Intervals [place] Rate: 60 P: 39 IN: 178 QRS: -19 QRSD: 98 T: -25 QT: 412 QTc: 412 Interpretive Statements SINUS RHYTHM ST DEVIATION AND MODERATE T-WAVE ABNORMALITY, CONSIDER ANTERIOR AND INFERIOR ISCHEMIA [-0.1+ mV T-WAVE IN V3/V4 AND III/AVF] Compared to ECG 02/13/2025 09:41:07 Possible ischemia now present Atrial fibrillation no longer present T-wave abnormality still present Electronically Signed On 02-25-2025 14:10:39 CDT by Petey Ness M.D.
[2025-02-25 11:31] LABS: Glucose Point of Care 186 mg/dl (65-105)
--- NOTE | 2025-02-25 12:04 | PCOTNOTE ---
Patient refused to participate in OT at this time. Patient states she needs sleep to get better, I keep getting interrupted.
--- NOTE | 2025-02-25 14:59 | PM.DS ---
DS: Admitting Diagnosis Discharge Date 02/25/2025 Admitting Diagnosis Diarrhea and weakness DS: Discharge Diagnosis Discharge Diagnosis (1) Cardiac arrest: Code(s): I46.9 - Cardiac arrest, cause unspecified Status: Acute Assessment and Plan: Resolved Patient had a cardiac arrest after placement of a percutaneous drain in the pelvic abscess. Could be related to vasovagal, translocation of bacteria, hypoxia as patient was laying flat, hypovolemia, acidosis -successful ROSC x2, intubated in the CT scan suite by ER physician -patient did follow commands post code a continue, so not a candidate for targeted temperature management -will continue to treat underlying cause (2) Septic shock: Code(s): A41.9 - Sepsis, unspecified organism; R65.21 - Severe sepsis with septic shock Status: Acute Assessment and Plan: 02/01:In the ICU patient dropped her blood pressures -patient has been adequately fluid-resuscitated with IV fluids and albumin -01/25: Blood cultures negative x2 -02/02: repeat blood cultures -growing E coli (pansensitive) and Clostridium ramosum -02/02: Abscess fluid culture growing E coli and Bacteroides fragilis 02/03: WBC count up to 64, could be related to septic shock, infection, leukemoid reaction, steroids. Will continue to monitor -WBC count is trending down, patient is afebrile, continue to monitor --continue meropenem, Flagyl 02/04: Discontinue vancomycin -continue doxycycline for 5 days - weaning stress dose steroid -off all pressors (patient was on Levophed, Bobo-Synephrine and vasopressin) -WBC count trending down 02/04: Repeat blood cultures growing Clostridium ramosum, bacteroids fragilis 02/09: Repeat blood culture shows no growth 02/11:Removal of pelvic abscess drain by surgery 02/12: Patient successfully underwent transgluteal percutaneous abscess drain placement with IR. 02/15 abscess culture from 02/12 positive for E coli on Augmentin and Flagyl per Culture to complete 02/28 (3) Acute respiratory failure: Qualifiers: Respiratory failure complication: hypoxia Qualified Code(s): J96.01 - Acute respiratory failure with hypoxia Code(s): J96.00 - Acute respiratory failure, unspecified whether with hypoxia or hypercapnia Status: Acute Assessment and Plan: Acute respiratory failure likely related to cardiac arrest possible from septic shock, infection, hypovolemia, translocation of bacteria, acidosis, hypoxia -patient intubated in the CT scan suite by ER physician -02/06: Extubated Accidentally coughed upper ETT was on pressure support ventilation 10/5 for approximately 3 hours and CXR showed bilateral pulm edema with pleural effusion From CHF exacerbation (4) Intra-abdominal abscess: Code(s): K65.1 - Peritoneal abscess Status: Acute Assessment and Plan: Intra-abdominal abscess, status post percutaneous IR drain placement on 02/01/2025 and removal on 02/10/2025.Underwent 02/12 transgluteal percutaneous abscess drain placement by IR -draining purulent material, cultures as above -surgery is following the patient -Continue Meropenem and Metronidazole -culture growing pansensitive E coli; and bacteroides fragilis drain removed Now on Augmentin and Flagyl (5) Diabetes 1.5, managed as type 2: Code(s): E13.9 - Other specified diabetes mellitus without complications Status: Acute Assessment and Plan: Continue Accu-Cheks and sliding scale insulin -s/p nutrition through NG -resumed Lantus 10 units HS since patient started eating -Hold home med and advised to discuss with PCP if needs to be continued (6) Hypertension: Qualifiers: Hypertension type: unspecified Qualified Code(s): I10 - Essential (primary) hypertension Code(s): I10 - Essential (primary) hypertension Status: Acute Assessment and Plan: Patient came off pressors -Continue home antihypertensive (7) Anemia: Qualifiers: Anemia type: other cause Other causes of anemia: chronic disease, other Qualified Code(s): D63.8 - Anemia in other chronic diseases classified elsewhere Code(s): D64.9 - Anemia, unspecified Status: Acute Assessment and Plan: 02/03: Hemoglobin dropped to 6.3. -will transfuse 1 unit of packed RBC -hemoglobin stable -02/05: hemoglobin dropped to 7.0 -status post 1 unit of packed RBC -iron panel reflective of iron deficiency anemia and/or anemia of chronic disease -folic acid and vitamin B12 levels within normal limits -stool occult was positive -appreciate GI evaluation and no recommendations for endoscopy as patient does not have any overt bleeding -hemoglobin is stable, 8.9 continue to monitor (8) Hypernatremia: Code(s): E87.0 - Hyperosmolality and hypernatremia Status: Acute Assessment and Plan: Resolved (9) Atrial fibrillation: Code(s): I48.91 - Unspecified atrial fibrillation Status: Acute Assessment and Plan: Started Metoprolol PO q 6 hrs [id number] score 3(Age,sex,DM) New onset. TSH wnl ECHO:Left ventricular systolic function is normal, estimated at 55-60% Will defer anticoagulation until discussion with Surgery and Cardiology neurology recommended not starting anticogulation due to hematuria DS: Summary Hospital Course Hospital Course: 74 y/o F with PMH of diabetes (1.5, managed as 2) and hypertension presents here with diarrhea and weakness. The patient presents here from home for further evaluation of diarrhea and generalized weakness.? She reports onset of diarrhea on Saturday, 01/22. ?She estimates she has gone anywhere from 3 to 10+ per day. ?She has not taken any [id number] medications for her symptoms. ?Diarrhea is accompanied by abdominal pain, subjective dehydration, fever, chills, lack of appetite, decreased UOP, and generalized weakness.? She denies accompanying chest pain, blood in stool, dark/tarry stools, dizziness.? The patient describes the abdominal pain as primarily in her left lower quadrant, diffuse, non-radiating, constant (severity fluctuated), no aggravating or alleviating factors. ?She denies any previous history of diverticulitis, diverticulosis, bowel obstruction, or previous abdominal surgery. Initial VS at presentation: ?98.2? F, HR 96, RR 20, 137/74, and 98% on RA. ED workup showed:? WBC 21.8, hemoglobin 10.0 (at baseline), potassium 3.1, creatinine 1.02 and GFR 53 (at baseline), glucose 146, lactic 2.5 (-> 1.7), unremarkable LFTs and lipase.? UA suggestive of UTI, rare epithelial cells, may be contaminant.? C diff negative.? CT abdomen/pelvis completed which showed a sigmoid colon/proximal rectum colitis (inflammatory versus infectious) with 2 adjacent verses bilobed abscesses. Patient had a very prolonged hospitalization from 01/25/2025-02/25/2025. I Assumed care on 02/23. Please refer to Assessment plan for full detail. Brief course: Intra-abdominal abscess, status post percutaneous IR drain placement on 02/01/2025 and removal on 02/10/2025. Underwent 02/12 transgluteal percutaneous abscess drain placement by IR and removed on 02/17/2025. Cardiology was consulted due to A.Fibrillation and do not recommend AC due to patient requiring blood transfusion. On the day of discharge ,I offered patient MRI of spine but patient declined. Patient is discharged to [facility]. According to PT/OT patient is not very much motivated to do physical therapy. The patient reports she is weak. Her diarrhea is improved. C.difficile is negative. I called her daughter updated all the info and she agrees with plan. Advised to discuss the goals of care with her mother in future. Time Spent with Patient Time attestation: Total time spent providing and/or coordinating discharge services: Exam Narrative: General: Obese female, currently in no acute distress HEENT:? Pupils equal and reactive, sclera is clear, Airvo in place Neck:? Supple Respiratory:? Coarse breath sounds bilaterally, decreased at bases, no wheezing, adequate air entry Cardiac:? S1-S2 normal, regular rate and rhythm Abdomen:? Soft, nontender, obese, hypoactive bowel sounds, left lower quadrant drain in place with purulent drainage Extremities:? Bilateral upper and lower extremity pitting edema, improving Neuro:? Of Precedex. More awake, alert, able to answer questions, follows simple commands, Skin:? No skin lesions noted Psych:? Depressed affect Const: General: comfortable and no acute distress Other: , female, elderly, disheveled. Nontoxic appearance. HENMT: Face/Nose/Sinus: Normal nares present Mouth: Yes moist mucous membranes Eyes: General: appearance normal, both eyes and all related structures Sclera: sclerae normal Pupils: Equal, round and reactive pupils present EOM: EOMs intact bilaterally Resp: Effort & Inspection: normal respiratory effort Auscultation: clear to auscultation bilaterally Cardio: Rate: regular rate Rhythm: regular rhythm Other: S1-S2 present without murmur, rub, ectopy GI: Other: tender in the lower quadrants. hyperactive bowel sounds in the upper quadrants, normoactive in the lower. Nondistended, soft. Skin: General skin exam: normal color and no rashes or lesions noted Wounds: no wounds Neuro: Cranial nerves: Yes Equal, round and reactive pupils present Speech: normal speech Motor exam (neuro): 5/5 motor strength present throughout Sensory Exam: normal sensation Other: A&O x4 Extrem: General: normal to inspection Psych: Mental Status: mental status grossly normal Affect: normal affect Other: Malodorous, disheveled. Fair insight and judgment, pleasant. DS: Data Data Completed and Pending Labs on day of discharge: Labs from last 24 hours 02/25/25 02/25/25 02/25/25 11:20 07:45 05:23 WBC 9.2 RBC 3.87 L Hgb 10.2 L Hct 34.2 L MCV 88.4 MCH 26.4 MCHC 29.8 L RDW 25.9 H Plt Count 212 MPV 10.1 Sodium 141 Potassium 3.8 Chloride 106 Carbon Dioxide 31 H Anion Gap 4 BUN 14 Creatinine 0.73 Estim Creat Clear Calc 70 Estimated GFR > 60 Glucose 124 H POC Capillary Glucose 186 H 143 H Calcium 8.2 L Total Bilirubin 1.0 AST 24 ALT 11 Alkaline Phosphatase 168 H Total Protein 6.0 L Albumin 2.8 L 02/24/25 02/24/25 20:18 17:04 WBC RBC Hgb Hct MCV MCH MCHC RDW Plt Count MPV Sodium Potassium Chloride Carbon Dioxide Anion Gap BUN Creatinine Estim Creat Clear Calc Estimated GFR Glucose POC Capillary Glucose 185 H 140 H Calcium Total Bilirubin AST ALT Alkaline Phosphatase Total Protein Albumin Discharge Plan Discharge Attending physician on discharge: Enrico Hopkins Consulting providers: Chelsea Rivera; Colette Foley; Michell Lemus; Elvira Carrera; Gal Márquez; Jeni Ramos Discharging Clinician: Enrico oHpkins Anticipated Discharge Date/Time: 02/25/25 14:34 Patient Disposition: [facility] Activity: as tolerated Diet: low fiber and other - see discharge instructions Discharge Instructions: Call to schedule an appointment with Dr. Goins in 2 weeks. [phone] supervisor laboratory and take all antibiotics. If you develop abdominal pain or fevers, then return to the ED. Diet: Easy to chew, level 7 diet Check blood pressure 1 to 2 times a day. Record and bring into your doctor for review. Call your doctor if your blood pressure is greater than 180/110 or less than 90/45. Walk with cane or other assist device. Take precautions to avoid falls. Rise slowly from a lying or sitting position. Pause before standing or walking. Contact your doctor or call 911 and come to the Emergency Room if you have any type of trauma, lightheadedness with standing or other worrisome symptoms. Avoid NSAIDs (ibuprofen, naproxen, Aleve). Tylenol is safe to take. Follow-up with your primary care provider in 1-2 weeks. Please call for appointment. Follow-up with Cardiology in 2-4 weeks. Please call for an appointment. Thank you for using [facility] for your health care needs. Patient Instructions: Low Fiber Diet (DC) Patient Language: Micronesian Follow-up/Referrals: Bel Goins MD [Physician] - 2 Weeks Discharge Medications: New insulin glargine [Lantus U-100 Insulin] 100 unit/mL Solution 10 unit subcut HS Qty: 300 0RF metoprolol succinate 25 mg tablet extended release 24 hr 37.5 mg PO BID Qty: 60 0RF spironolactone 25 mg Tablet 50 mg PO BID Qty: 30 0RF tamsulosin 0.4 mg Capsule 0.4 mg PO QAM Qty: 30 0RF pantoprazole 40 mg Tablet,Delayed Release (Dr/Ec) 40 mg PO Q12HR Qty: 30 0RF levalbuterol HCl 1.25 mg/3 mL Solution For Nebulization 0.63 mg inhalation Q6HRT PRN (Reason: Wheezing) Qty: 30 0RF ipratropium bromide 0.02 % Solution 0.5 mg inhalation Q6HRT PRN (Reason: Wheezing) Qty: 30 0RF amoxicillin-pot clavulanate 875-125 mg tablet 1 tablet PO Q12H Qty: 8 0RF Rx Instructions: Please complete the course on 02/28/2025 insulin aspart U-100 [Novolog FlexPen U-100 Insulin] 100 unit/mL (3 mL) insulin pen 1 sliding scale dose subcut USEASDIRECTD Qty: 15 0RF Rx Instructions: 71-149:0 units 150-199: 3 units 200-249: 5 units 252-299: 7 units 300-349: 10 units > 350 call MD Castaneda (BETHEL) lancets [BD Microtainer Lancet] 30 gauge misc See Rx Instructions .Route Qty: 200 2RF Rx Instructions: ACHS (BETHEL) blood-glucose meter Misc See Rx Instructions .ROUTE .MEDSUPPLY Qty: 1 0RF Rx Instructions: DAILY (DME) Blood Glucose Test Strip See Rx Instructions .Route Qty: 100 4RF Rx Instructions: ONCE DAILY Held pioglitazone 45 mg tablet See Rx Instructions .ROUTE .COMPLEX Qty: 90 0RF Hold Instructions: Resume on 03/31/25. Please discuss with your PCP and continue if needed Dose Instruction: 45 MG ORALLY DAILY Rx Instructions: 45 MG ORALLY DAILY glimepiride 4 mg tablet 4 mg PO BID Qty: 180 1RF Hold Instructions: Resume on 03/31/25. Please discuss with her PCP and resume if needed Discontinued triamterene-hydrochlorothiazid 37.5-25 mg capsule 1 cap PO DAILY verapamil 240 mg tablet extended release 240 mg PO BID metoprolol succinate 50 mg tablet extended release 24 hr 50 mg PO DAILY Qty: 180 1RF No Action metronidazole 500 mg Tablet 500 mg PO Q6HR Rx Instructions: x4 days Date of admission: 01/26/25 08:29 Primary Care Provider: Lexy George Admitting Provider: Tarik Pardo Attending physician on admission: Elvira Carrera Condition: Stable
[2025-02-25 16:56] LABS: Glucose Point of Care 258 mg/dl (65-105)
[2025-02-25] MEDS: INSULIN ASPART (*BKC) 100 UNITS/ML SUB-Q (17:40)
[2025-02-26 14:24] LABS: Norovirus RNA PCR, Stool NOT DETECTED
== END 2025-02-25 17:50 | DRG 870 ==
LOC: ANH3MEDSUR 02-02 12:12 → ANHICU 02-02 12:34 → ANHIMU 02-08 17:18 → ANH3MEDSUR 02-13 23:12
PROVIDERS: General Practice; Internal Medicine; Internal Medicine Nephrology; Nurse Practitioner Acute Care; Nurse Practitioner Family; Radiology Diagnostic Radiology; Student in an Organized Health Care Education/Training Program; Surgery; Admitting Provider Family Medicine; PCP Nurse Practitioner Family; Visit Provider General Practice
PROC: 0W9J30Z Drainage of Pelvic Cavity with Drainage Device, Percutaneous Approach (ICD-10-PCS; principal; 2025-02-02 14:15)
DX: A41.9 Sepsis, unspecified organism (principal); R65.21 Severe sepsis with septic shock; J96.01 Acute respiratory failure with hypoxia; J18.9 Pneumonia, unspecified organism; I50.31 Acute diastolic (congestive) heart failure; K57.20 Diverticulitis of large intestine with perforation and abscess without bleeding; I97.121 Postprocedural cardiac arrest following other surgery; E87.0 Hyperosmolality and hypernatremia; B96.20 Unspecified Escherichia coli [E. coli] as the cause of diseases classified elsewhere; I48.0 Paroxysmal atrial fibrillation; B96.89 Other specified bacterial agents as the cause of diseases classified elsewhere; K52.9 Noninfective gastroenteritis and colitis, unspecified; R33.9 Retention of urine, unspecified; E13.9 Other specified diabetes mellitus without complications; N20.0 Calculus of kidney; R31.9 Hematuria, unspecified; I10 Essential (primary) hypertension; E87.6 Hypokalemia; K80.20 Calculus of gallbladder without cholecystitis without obstruction; F41.0 Panic disorder [episodic paroxysmal anxiety]; D50.9 Iron deficiency anemia, unspecified; D63.8 Anemia in other chronic diseases classified elsewhere
CPT/HCPCS: 36415; 36430; 36600; 43752; 71045; 72192; 74019; 74176; 74177; 75989; 80048; 80053; 80202; 81001; 82274; 82375; 82565; 82607; 82728; 82746; 82805; 82948; 83036; 83050; 83540; 83550; 83605; 83735; 84100; 84132; 84145; 84443; 84484; 85014; 85018; 85025; 85027; 85055; 85610; 85730; 86140; 86850; 86900; 86901; 86923; 87040; 87045; 87070; 87075; 87086; 87186; 87205; 87425; 87427; 87449; 87493; 87641; 87798; 89055; 92526; 92610; 92611; 92950; 93005; 93306; 94002; 94003; 94640; 96374; 97110; 97161; 97162; 97164; 97166; 97167; 97530; 97535; A9270; C1729; C1751; C1769; G0378; J0171; J0360; J1650; J1720; J1815; J1836; J1938; J2185; J2250; J2270; J2371; J2405; J2470; J2543; J3010; J3370; J3430; J3475; J3480; J7030; J7040; J7050; J7060; J7070; J7120; J7121; P9016; P9047; Q9967

== ENCOUNTER 2025-03-10 17:28 | Inpatient (IN) | payer MEDICARE, SELFPAY ==
--- NOTE | ~2025-03-10 | XR_ITS ---
EXAMINATION: XR enema water soluble DATE: 03/24/2025 10:42 INDICATION: Perforated sigmoid diverticulitis with abscess TECHNIQUE: A logistic manager radiograph was obtained. A catheter was inserted into the patient's rectum. Contra st was infused by gravity. Fluoroscopic spot images and conventional radiographs were obtained. Fluo roscopy exposure time was 2.2 minutes. A total of 11 overhead radiographs and 23 fluoroscopic images were recorded. Total DAP was 211.096 Gycm^2. COMPARISON: CT dated 03/23/2025 FINDINGS: Director Of Hotel Operations image demonstrates the distal loop of the right transgluteal abscess drainage catheter projecti ng over the central pelvis. Retrograde contrast opacification of the rectum demonstrates early extens ion of contrast from the rectum into an irregular contour at presacral abscess cavity which begins to fill prior to contrast filling the more proximal sigmoid colon. There appears to be a stricture at t he rectosigmoid junction where there is a second fistulous communication to the presacral abscess cav ity. There are multiple diverticula along the more proximal sigmoid colon. Small amount of contrast c an be seen extending along side the drainage catheter which remains without intraluminal contrast. IMPRESSION: 1. Contrast opacifies the presacral abscess cavity which appears to communicate with the bowel both a t the rectum and at the site of a stricture at the rectosigmoid junction. 2. Contrast extends along side the drainage catheter which remains unopacified with contrast which ma y be occluded. Consider saline flush of the catheter. Reviewed, dictated and finalized at location A. IMPRESSION: 1. Contrast opacifies the presacral abscess cavity which appears to communicate with the bowel both at the rectum and at the site of a stricture at the rectos igmoid junction. 2. Contrast extends along side the drainage catheter which remains unopacified with contrast which may be occluded. Consider saline flush of the catheter.
--- NOTE | ~2025-03-10 | CT_ITS ---
EXAMINATION: CT guide absc cath placement DATE: 03/12/2025 14:21 INDICATION: Pelvic abscess TECHNIQUE: The procedure including the risks and benefits was discussed with the patient. Risks discu ssed included bleeding and infection. The patient understood the risks and benefits and agreed to pro ceed. The patient was confirmed to be receiving appropriate antibiotic coverage. The skin overlying the right side of the gluteal cleft lateral to the coccyx was prepped and draped in usual sterile fas hion. Anesthetic was administered with 1% lidocaine subcutaneously. Conscious sedation was provided by the department of anesthesia. Utilizing CT guidance an 18-gauge trochar needle was inserted into t he presacral fluid collection. The inner stylette was removed and a J-wire advanced into the fluid co llection with position confirmed by CT. Needle was removed over the wire and utilizing Seldinger tech nique the tract was serially dilated over the wire to 14 Fr. A 14 Fr pigtail catheter was then placed over the wire and the loop formed and locked with position confirmed by CT. The catheter was stitche d to the skin with suture. Antibiotic ointment and a sterile dressing were applied. An additional adh esive fixation device was applied. Fluid was aspirated and sent to lab for Gram stain and cultures. T he catheter was then attached to suction drainage and was draining additional purulent appearing flui d at the conclusion of the procedure. The dose-length product was 202.21 mGy-cm. FINDINGS: CT images demonstrate the catheter within the gas and fluid containing presacral abscess ca vity. 20 mL of opaque rivas, feculent appearing and foul-smelling fluid was aspirated for testing. IMPRESSION: 1. Successful CT-guided abscess drainage. 2. 20 mL fluid was sent for aerobic and anaerobic cultures. 3. The catheter will be managed by Dr. Goins. Reviewed, dictated and finalized at location A.
--- NOTE | ~2025-03-10 | CT_ITS ---
CT of the Abdomen and Pelvis: Indication: Reassess pelvic abscess, status post drainage Technique: 2.5 mm axial scans were obtained through the abdomen and pelvis following intravenous adm inistration of 100 cc of Omnipaque 350. Dose reduction technique was used on this scan by utilizing a utomated exposure control and iterative reconstruction technique. The dose-length product (DLP) was 1 807.97 mGy-cm. COMPARISON: 03/15/2025 Findings: Scans through the lung bases demonstrates [id number] bilateral pleural effusions, s imilar to prior exam, with extensive bilateral lower lobe atelectasis.. The liver, spleen, pancreas, right adrenal gland and left kidney are within normal limits. Multiple l ayering gallstones and gallbladder sludge again present. Stable 4 cm right adrenal nodule. Stable lar ge stone at the right renal pelvis measuring 2.1 x 1.3 cm. Additional smaller obstructing right renal stones at lower pole are again present as well. No evidence of aortic aneurysm. No lymphadenopathy. No bowel obstruction. Irregular complex abscess in the pelvis along the right side of the rectum and abutting the cervix is again present, now with percutaneous drainage catheter in place via right liz sgluteal approach. The abscess is similar in extent to prior exam, possibly minimally decreased. Absc ess again extends 12.4 cm in AP extent, 6 cm in transverse dimension, and up to at least 3.6 cm in cr anial caudal extent. There is possible communication of the abscess with the distal rectum. Better de lineated on the current exam is probable extension of the abscess into the right gluteus jose f musc le, best seen on axial images 207-177, this portion of the collection measuring up to 10.6 x 3.1 cm i n size (coronal image 104). Images through the pelvis were performed. Urinary bladder collapsed around Espinoza catheter. Probable s mall amount of air in the endometrial cavity. Impression: Large irregular pelvic abscess is similar to prior exam, possibly minimally decreased. There is possi ble communication of the abscess with the distal rectum, which could reflect fistula/perforation. Con credit controller administration of contrast via the drainage catheter under fluoroscopy to attempt to confirm or exclude communication with the large bowel lumen. Better delineated on this contrast-enhanced exam is extension of the abscess into the right gluteus m aximus muscle, as detailed above. Percutaneous drainage catheter is present within the collection via right transgluteal approach. Cholelithiasis/gallbladder sludge, unchanged. Stable 2.1 x 1.3 cm stone at the right renal pelvis with additional smaller nonobstructing right zheng l stones. Stable large right adrenal adenoma. Small to moderate bilateral pleural effusions with extensive bibasilar atelectasis. Reviewed, dictated and finalized at [facility]. Impression: Large irregular pelvic abscess is similar to prior exam, possibly minimally dec reased. There is possible communication of the abscess with the distal rectum, which could reflect fistula/perforation. Consider administration of contrast vi a the drainage catheter under fluoroscopy to attempt to confirm or exclude comm unication with the large bowel lumen. Better delineated on this contrast-enhanced exam is extension of the abscess in to the right gluteus jose f muscle, as detailed above. Percutaneous drainage c atheter is present within the collection via right transgluteal approach. Cholelithiasis/gallbladder sludge, unchanged. Stable 2.1 x 1.3 cm stone at the right renal pelvis with additional smaller non obstructing right renal stones. Stable large right adrenal adenoma. Small to moderate bilateral pleural effusions with extensive bibasilar atelecta sis.
--- NOTE | ~2025-03-10 | XR_ITS ---
XR chest PICC line 03/12/2025 09:21 Indication: PICC line placement Procedure: AP portable chest Comparison: Comparison to multiple prior studies sequentially, with oldest reviewed study dated 12/2024. Findings: There is extensive bilateral airspace disease. There are bilateral pleural effusions. No pn eumothorax. Stable cardiomediastinal silhouette. Right subclavian PICC line tip in the SVC. Impression: 1: Extensive stable bilateral airspace disease which may represent edema or pneumonia. 2: Bilateral pleural effusions without change. Reviewed, dictated and finalized at location A. Impression: 1: Extensive stable bilateral airspace disease which may represent edema or pne umonia. 2: Bilateral pleural effusions without change.
--- NOTE | ~2025-03-10 | CT_ITS ---
EXAMINATION: CT guide absc cath placement DATE: 03/17/2025 14:07 INDICATION: Fractured pelvic abscess drainage catheter replacement TECHNIQUE: The procedure including the risks and benefits was discussed with the patient. Risks discu ssed included bleeding and infection. The patient understood the risks and benefits and agreed to pro ceed. The patient was confirmed to be receiving appropriate antibiotic coverage. The exposed portion of the previously placed right transgluteal drainage catheter and the surrounding skin were sterilel y prepped and draped in usual sterile fashion. Anesthetic was administered with 1% lidocaine subcutan eously. Mild conscious sedation was also provided by the department of anesthesia. A J-wire was advan elisabeth through the catheter into the presacral fluid collection with position confirmed by CT. The fixat ion suture and the catheter removed over the wire. A new 14 Stateless drainage catheter was advanced ove r the wire into the cystic fluid collection in the loop formed and locked with position confirmed by CT. The catheter was stitched to the skin with suture. Antibiotic ointment and a sterile dressing wer e applied. 15 mL of opaque rivas-colored foul-smelling purulent appearing fluid was aspirated from the catheter which was then attached to suction drainage and was draining additional purulent fluid at th e conclusion of the procedure. Final CT images were obtained demonstrating decrease in the amount of gas and fluid in both the anterior and posterior components of the fluid collection which appeared fr eely communicating. Was therefore elected to defer placement of a second drainage catheter. The dose- length product was 179.33 mGy-cm. FINDINGS: CT images demonstrate the formed loop of a newly placed catheter in expected position withi n the posterior aspect of the pelvic abscess cavity. There was decrease in size of both the anterior and posterior components of the abscess cavity following aspiration of 50 mL fluid which was sent for Gram stain and cultures. IMPRESSION: 1. Successful CT-guided transgluteal percutaneous abscess drainage catheter replacement. 2. 50 mL fluid was sent for aerobic and anaerobic cultures. 3. The catheter will be managed by Dr. Goins. Reviewed, dictated and finalized at location A. IMPRESSION: 1. Successful CT-guided transgluteal percutaneous abscess drainage catheter rep lacement. 2. 50 mL fluid was sent for aerobic and anaerobic cultures. 3. The catheter will be managed by Dr. Goins.
--- NOTE | ~2025-03-10 | CT_ITS ---
Non-contrast CT scan of the Abdomen and Pelvis Clinical indication: Abscess Technique: 2.5 mm axial scans were obtained through the abdomen and pelvis without intravenous or or al contrast. Dose reduction technique was used on this scan by utilizing automated exposure control a nd iterative reconstruction technique. The dose-length product (DLP) was 1653.57 mGy-cm. COMPARISON: 03/10/2025 Findings: Images through the lung bases reveal partially imaged moderate to large pleural effusions with extensive bilateral lower lobe atelectasis.. 2 mm nonobstructing left renal stone present. There is a 2.0 x 1.3 cm irregular stone in the right re nal pelvis, without marnie hydronephrosis. Additional small nonobstructing gallstones are present. The liver, spleen, pancreas, and left adrenal gland appear normal. Gallbladder is distended with nume paula calcified gallstones and possible small amount of layering sludge. Stable 3.7 cm low-density rig ht adrenal lesion, compatible with adenoma. There is no aortic aneurysm. There is no evidence of bowel obstruction. There is a probable large pelvic abscess, containing fluid and gas, adjacent to the distal rectum along its right side, measuring up to approximately 15 cm in AP dimension, 6.8 cm in transverse dimension, and approximately 8.5 cm in craniocaudal extent. There is been interval placement of a previous drainage catheter via right transgluteal approach, pigtail c atheter probably just within the collection. Images through the pelvis were performed. Urinary bladder collapsed around a Espinoza catheter. No adnex al mass evident. Possible small amount of air in the endometrial cavity. Impression: Large pelvic abscess along the right side of the distal rectum measuring approximately 15 x 6.8 x 8.5 cm. Interval placement of drainage catheter via right transgluteal approach with pigtail probably ju st within the collection. Correlate with tube output. 2.0 x 1.3 cm right renal pelvis stone without marnie hydronephrosis. Additional small nonobstructing s tones, as above. Cholelithiasis and gallbladder sludge. Moderate to large bilateral pleural effusions with extensive bilateral lower lobe atelectasis. Reviewed, [facility] and [facility] by Julio Ahumada M.D. on 03/15/2025 6:26 CDT Impression: Large pelvic abscess along the right side of the distal rectum measuring approx imately 15 x 6.8 x 8.5 cm. Interval placement of drainage catheter via right tr ansgluteal approach with pigtail probably just within the collection. Correlate with tube output. 2.0 x 1.3 cm right renal pelvis stone without marnie hydronephrosis. Additional small nonobstructing stones, as above. Cholelithiasis and gallbladder sludge. Moderate to large bilateral pleural effusions with extensive bilateral lower lo be atelectasis.
[2025-03-10 17:32] VITALS: BP 145/71; PULSE 69; RESP 17; TEMP 37.1; O2SAT 92
[2025-03-10 17:55] VITALS: BP 115/57; PULSE 66; RESP 20; O2SAT 96
--- NOTE | 2025-03-10 17:58 | ED.ABDPAIN ---
HPI - Abdominal Pain General Chief Complaint: Abdominal Pain <TREMAYNE Hartman Last Filed: 03/10/25 19:25> Stated Complaint: left flank/hip pain <TREMAYNE Hartman Last Filed: 03/10/25 19:25> Time Seen by Provider: 03/10/25 17:32 <TREMAYNE Hartman Last Filed: 03/10/25 19:25> Source: patient <TREMAYNE Hartman Last Filed: 03/10/25 19:25> Mode of arrival: EMS <TREMYANE Hartman Last Filed: 03/10/25 19:25> Limitations: no limitations <TREMAYNE Hartman Last Filed: 03/10/25 19:25> History of Present Illness HPI narrative: This is a 74 year old female that presents to the ER for abnormal imaging. Patient had CT scan today showing enlarging abscess, possible perforation. Patient reports pain in her bottom. Denies fevers, abdominal pain, vomiting. <TREMAYNE Hartman Last Filed: 03/10/25 19:25> Related Data Home Medications: Home Medications ?Medication ?Instructions ?Recorded ?Confirmed ?Last Taken ?Type albuterol sulfate 2.5 mg/3 mL 2.5 mg inhalation Q6H PRN 03/10/25 03/10/25 03/10/25 History (0.083 %) solution for nebulization shortness of breath or wheezing alprazolam 0.25 mg tablet 0.25 mg PO TID PRN anxiety 03/10/25 03/10/25 03/10/25 History dextrose 50 % in water (D50W) 12.5 g IV ONCE PRN hypoglycemia 03/10/25 03/10/25 Unknown History enoxaparin 40 mg/0.4 mL 40 mg subcut DAILY 03/10/25 03/10/25 03/10/25 History subcutaneous syringe <TREMAYNE Hartman Last Filed: 03/10/25 19:25> Allergies/Adverse Reactions: Allergies Allergy/AdvReac Type Severity Reaction Status Date / Time ciprofloxacin (From Cipro) Allergy Rash Verified 03/10/25 18:22 codeine Allergy Rash Verified 03/10/25 18:22 NSAIDS (Non-Steroidal AdvReac Nose Bleed Verified 03/10/25 19:08 Anti-Inflamma <Sherlyn Burgess PA-C - Last Filed: 03/10/25 19:25> Review of Systems Review of Systems: CONSTITUTIONAL: Denies fever GASTROINTESTINAL: Denies abdominal pain, nausea, vomiting <TREMAYNE Hartman Last Filed: 03/10/25 19:25> All systems reviewed & are unremarkable except as noted in HPI and below <Sherlyn Burgess PA-C - Last Filed: 03/10/25 19:25> [facility] Past Medical History Medical History: Medical History Diabetes 1.5, managed as type 2 Hypertension <Sherlyn Burgess PA-C - Last Filed: 03/10/25 19:25> Surgical History Surgical History: Surgical History No history of previous surgery <Sherlyn Burgess PA-C - Last Filed: 03/10/25 19:25> Family History Family History: Family History Mother Heart attack Diabetes mellitus Type II DM Father , heart attack Heart attack Heart disease Sibling , gynecological cancer (lining of uterus per patient) No problems noted. <Sherlyn Burgess PA-C - Last Filed: 03/10/25 19:25> Social History Social History: Social History Smoking status: Never smoker Second hand tobacco smoke exposure: No Alcohol intake: never Alcohol use details: occasional, [id number] Substance use: never Substance use type: does not use Do You Feel Safe in your Home?: Yes Lack of Transportation: No Lack of Food: Never True Current Housing: I Have Housing Concerned About Future Housing: No Difficulty Paying Gas/Electric Bills: No Difficulty Paying for Meds: No Currently Unemployed: No Education: Bachelor's Degree Difficulty w/ Childcare or Family Care: No Spiritual care concerns: No <Sherlyn Burgess PA-C - Last Filed: 03/10/25 19:25> Exam Narrative: GENERAL: Chronically ill-appearing, well-nourished, and in no acute distress. HEAD: Normocephalic, atraumatic. EYES: EOMI. ENT: Nares clear, no rhinorrhea or epistaxis. Mucous membranes dry. Oropharynx without tonsillar hypertrophy exudate or other lesions. NECK: Supple. No adenopathy or masses. CHEST: Clear to auscultation. No respiratory distress. No wheezes rales or rhonchi HEART: Regular rate and rhythm. No murmur heard. Normal peripheral pulses. ABDOMEN: Soft, nontender, nondistended, normal active bowel sounds. EXTREMITIES: Normal range of motion. No edema. SKIN: Warm, dry, no rash. NEURO: No focal deficits. Alert and oriented x3. PSYCH: Normal mood and affect <Sherlyn Burgess PA-C - Last Filed: 03/10/25 19:25> Course Course Emergency Course: Patient updated on her workup and need for admission <Sherlyn Burgess PA-C - Last Filed: 03/10/25 19:25> [employer]/PA Physician Supervision For this patient encounter, I reviewed the [employer] or PA documentation, treatment plan, and medical decision making; and I had [id number] time with this patient. <Cesar Alarcon MD - Last Filed: 03/10/25 20:22> Consultations Consultation #1: Spoke with Dr. Sapp about patient and workup who will consult. Recommends IV antibiotics, hydration, admit to hospitalist <Sherlyn Burgess PA-C - Last Filed: 03/10/25 19:25> Date: 03/10/25 <TREMAYNE Hartman Last Filed: 03/10/25 19:25> Consultation #2: Spoke with hospitalist about patient and workup who accepts admission <Sherlyn Burgess PA-C - Last Filed: 03/10/25 19:25> Date: 03/10/25 <Sherlyn Burgess PA-C - Last Filed: 03/10/25 19:25> Vital Signs Vital signs: Vital Signs Temperature 98.7 F 03/10/25 17:32 Pulse Rate 69 03/10/25 17:32 Respiratory Rate 17 03/10/25 17:32 Blood Pressure 145/71 H 03/10/25 17:32 Pulse Oximetry 92 03/10/25 17:32 Oxygen Delivery Room Air 03/10/25 17:32 Temperature 98.7 F 03/10/25 17:32 Pulse Rate 72 03/10/25 19:10 Respiratory Rate 21 H 03/10/25 19:10 Blood Pressure 145/60 H 03/10/25 19:10 Pulse Oximetry 95 03/10/25 19:10 Oxygen Delivery Room Air 03/10/25 17:32 <Sherlyn Burgess PA-C - Last Filed: 03/10/25 19:25> Vital Signs Temperature 98.7 F 03/10/25 17:32 Pulse Rate 69 03/10/25 17:32 Respiratory Rate 17 03/10/25 17:32 Blood Pressure 145/71 H 03/10/25 17:32 Pulse Oximetry 92 03/10/25 17:32 Oxygen Delivery Room Air 03/10/25 17:32 Temperature 98.7 F 03/10/25 17:32 Pulse Rate 72 03/10/25 19:10 Respiratory Rate 21 H 03/10/25 19:10 Blood Pressure 145/60 H 03/10/25 19:10 Pulse Oximetry 95 03/10/25 19:10 Oxygen Delivery Room Air 03/10/25 17:32 <Cesar Alarcon MD - Last Filed: 03/10/25 20:22> MDM - Abdominal Pain MDM Narrative Medical decision making narrative: Patient presents the emergency department for abnormal outpatient imaging. Patient had recent prolonged hospital course due to intra-abdominal abscess complicated by cardiac arrest during drain placement. [facility] The provider there ordered CT abdomen pelvis today which showed enlarging presacral abscess. Extraluminal gas and fluid, suspicious for bowel perforation. Cholelithiasis. Bilateral nephrolithiasis. Bilateral lower lobe airspace consolidation which may represent atelectasis and/or pneumonia. Small pleural effusions. Patient does not have any abdominal discomfort at this time. Her abdomen soft and nontender. She has largely complaining pain in her bottom. Patient is afebrile and nontoxic appearing. Her vitals are stable. CBC with leukocytosis to 11.7. Metabolic panel with mild hypokalemia. Lactic acid is not elevated. CRP is 12.7. Urine with evidence of infection, this will be sent for culture. Blood cultures drawn, patient started on IV antibiotics. Spoke with Dr. Sapp about patient and workup who will consult. Recommends IV antibiotics, hydration, admit to hospitalist. Spoke with hospitalist about patient and workup who accepts admission <Sherlyn Burgess PA-C - Last Filed: 03/10/25 19:25> Differential Diagnosis Differential diagnosis: Likely calculus of kidney, diverticulitis and other (abscess, bowel perforation) <Sherlyn Burgess PA-C - Last Filed: 03/10/25 19:25> Lab Data Attestation: I reviewed the patient's lab results. <Sherlyn Burgess PA-C - Last Filed: 03/10/25 19:25> Result diagrams: 03/10/25 18:01 03/10/25 18:00 <TREMAYNE Hartman Last Filed: 03/10/25 19:25> Labs: Lab Results 03/10/25 03/10/25 03/10/25 Range/Units 17:59 18:00 18:01 WBC 11.7 H (4.5-10.0) K/mm3 RBC 3.44 L (4.2-5.4) M/mm3 Hgb 9.4 L (12.0-15.0) g/dL Hct 31.5 L (37.0-47.0) % MCV 91.6 (80-100) fl MCH 27.3 (26-34) pg MCHC 29.8 L (32-36) g/dl RDW 23.0 H (11.5-14.5) % Plt Count 353 (150-375) k/mm3 MPV 9.5 (7.4-10.4) fl Immature Gran % (Auto) Not Reportable Neut % (Auto) Not Reportable Lymph % (Auto) Not Reportable [facility] % (Auto) Not Reportable Eos % (Auto) Not Reportable Baso % (Auto) Not Reportable Lymph # (Auto) Not Reportable [facility] # (Auto) Not Reportable Eos # (Auto) Not Reportable Baso # (Auto) Not Reportable Abs Immat Gran (auto) Not Reportable Absolute Neuts (auto) Not Reportable Absolute Nucleated RBC Not Reportable Total Counted 100 Neutrophils % (Manual) 83 H (46-73) % Band Neutrophils % 5 (0-6) % Lymphocytes % (Manual) 6.0 L (18-44) % Monocytes % (Manual) 3 (3-9) % Eosinophils % (Manual) 3 (0-4) % Nucleated RBC % Not Reportable Abs Neuts (Manual) 10.29 H (1.3-6.7) K/mm3 Abs Lymphs (Manual) 0.70 L (1.1-4.5) K/mm3 Abs Monocytes (Manual) 0.35 (0.1-0.90) K/mm3 Absolute Eos (Manual) 0.35 (0.02-0.50) K/mm3 Platelet Estimate Adequate (Adequate) Hypochromasia 1+ Anisocytosis 3+ Schistocytes None seen ESR 83 H (0-20) mm/hr PT 16.3 H (11.1-14.7) Seconds INR 1.3 APTT 26.3 (22.3-36.8) Seconds Sodium 136 L (137-145) mmol/L Potassium 3.3 L (3.4-5.0) mmol/L Chloride 98 (98-107) mmol/L Carbon Dioxide 36 H (22-30) mmol/L Anion Gap 2 L (4-12) mmol/L BUN 18 H (7-17) mg/dL Creatinine 0.54 L (0.7-1.0) mg/dL Estim Creat Clear Calc 89 ml/min Estimated GFR > 60 (59 - ) Glucose 103 (65-110) mg/dL Lactic Acid 1.3 (0.7-2.0) mmol/L Calcium 8.7 (8.4-10.2) mg/dL Magnesium 1.9 (1.6-2.3) mg/dL Total Bilirubin 0.6 (0.2-1.3) mg/dL AST 17 (14-36) U/L ALT 10 (6-35) U/L Alkaline Phosphatase 126 (38-126) U/L C-Reactive Protein 12.7 H (<1.0) mg/dL Total Protein 6.8 (6.3-8.2) g/dL Albumin 2.8 L (3.5-5.1) g/dL Urine Color Dark yellow (Yellow) Urine Appearance Turbid H (Clear) Urine pH 5.5 (5.0-9.0) Ur Specific [place] 1.031 (1.001-1.035) Urine Protein 3+ H (Negative) mg/dL Urine Glucose (UA) Negative (Negative) mg/dL Urine Ketones Negative (Negative) mg/dL Ur Blood (Man) 3+ H (Negative) Urine Nitrate Positive H (Negative) Urine Bilirubin 2+ H (Negative) Urine Urobilinogen 1.0 (<2.0) mg/dL Add Ur Microanalysis Reviewed Leukocyte Esterase Rfl 3+ H (Negative) PRICE/UL Urine RBC >100 H (0-2) /hpf Urine WBC >100 H (0-3) /hpf Ur Squamous Epith Cells Moderate (Few) /hpf Urine Bacteria 4+ H /hpf Urine Casts >20 <Sherlyn Burgess PA-C - Last Filed: 03/10/25 19:25> Lab Results 03/10/25 03/10/25 03/10/25 Range/Units 17:59 18:00 18:01 WBC 11.7 H (4.5-10.0) K/mm3 RBC 3.44 L (4.2-5.4) M/mm3 Hgb 9.4 L (12.0-15.0) g/dL Hct 31.5 L (37.0-47.0) % MCV 91.6 (80-100) fl MCH 27.3 (26-34) pg MCHC 29.8 L (32-36) g/dl RDW 23.0 H (11.5-14.5) % Plt Count 353 (150-375) k/mm3 MPV 9.5 (7.4-10.4) fl Immature Gran % (Auto) Not Reportable Neut % (Auto) Not Reportable Lymph % (Auto) Not Reportable [facility] % (Auto) Not Reportable Eos % (Auto) Not Reportable Baso % (Auto) Not Reportable Lymph # (Auto) Not Reportable [facility] # (Auto) Not Reportable Eos # (Auto) Not Reportable Baso # (Auto) Not Reportable Abs Immat Gran (auto) Not Reportable Absolute Neuts (auto) Not Reportable Absolute Nucleated RBC Not Reportable Total Counted 100 Neutrophils % (Manual) 83 H (46-73) % Band Neutrophils % 5 (0-6) % Lymphocytes % (Manual) 6.0 L (18-44) % Monocytes % (Manual) 3 (3-9) % Eosinophils % (Manual) 3 (0-4) % Nucleated RBC % Not Reportable Abs Neuts (Manual) 10.29 H (1.3-6.7) K/mm3 Abs Lymphs (Manual) 0.70 L (1.1-4.5) K/mm3 Abs Monocytes (Manual) 0.35 (0.1-0.90) K/mm3 Absolute Eos (Manual) 0.35 (0.02-0.50) K/mm3 Platelet Estimate Adequate (Adequate) Hypochromasia 1+ Anisocytosis 3+ Schistocytes None seen ESR 83 H (0-20) mm/hr PT 16.3 H (11.1-14.7) Seconds INR 1.3 APTT 26.3 (22.3-36.8) Seconds Sodium 136 L (137-145) mmol/L Potassium 3.3 L (3.4-5.0) mmol/L Chloride 98 (98-107) mmol/L Carbon Dioxide 36 H (22-30) mmol/L Anion Gap 2 L (4-12) mmol/L BUN 18 H (7-17) mg/dL Creatinine 0.54 L (0.7-1.0) mg/dL Estim Creat Clear Calc 89 ml/min Estimated GFR > 60 (59 - ) Glucose 103 (65-110) mg/dL Lactic Acid 1.3 (0.7-2.0) mmol/L Calcium 8.7 (8.4-10.2) mg/dL Magnesium 1.9 (1.6-2.3) mg/dL Total Bilirubin 0.6 (0.2-1.3) mg/dL AST 17 (14-36) U/L ALT 10 (6-35) U/L Alkaline Phosphatase 126 (38-126) U/L C-Reactive Protein 12.7 H (<1.0) mg/dL Total Protein 6.8 (6.3-8.2) g/dL Albumin 2.8 L (3.5-5.1) g/dL Urine Color Dark yellow (Yellow) Urine Appearance Turbid H (Clear) Urine pH 5.5 (5.0-9.0) Ur Specific [place] 1.031 (1.001-1.035) Urine Protein 3+ H (Negative) mg/dL Urine Glucose (UA) Negative (Negative) mg/dL Urine Ketones Negative (Negative) mg/dL Ur Blood (Man) 3+ H (Negative) Urine Nitrate Positive H (Negative) Urine Bilirubin 2+ H (Negative) Urine Urobilinogen 1.0 (<2.0) mg/dL Add Ur Microanalysis Reviewed Leukocyte Esterase Rfl 3+ H (Negative) PRICE/UL Urine RBC >100 H (0-2) /hpf Urine WBC >100 H (0-3) /hpf Ur Squamous Epith Cells Moderate (Few) /hpf Urine Bacteria 4+ H /hpf Urine Casts >20 <Cesar Alarcon MD - Last Filed: 03/10/25 20:22> Imaging Data Radiologist's impression: CT abdomen/pelvis: 03/10/25 IMPRESSION: 1. Enlarging presacral abscess. Exact measurements difficult to obtain due to lack of contrast. There is extraluminal gas and fluid, suspicious for bowel perforation. Recommend surgical consultation. 2: Cholelithiasis. 3: Bilateral nephrolithiasis. 4: Bilateral lower lobe airspace consolidation which may represent atelectasis and/or pneumonia. 5: Small pleural effusions. <Sherlyn Burgess PA-C - Last Filed: 03/10/25 19:25> Critical Care Time Critical Care Time Critical Care Time: No <Sherlyn Burgess PA-C - Last Filed: 03/10/25 19:25> Discharge Plan Discharge Clinical Impression: Intra-abdominal abscess, Acute hypokalemia <Sherlyn Burgess PA-C - Last Filed: 03/10/25 19:25> Patient Disposition: Still a Patient <TREMAYNE Hartman Last Filed: 03/10/25 19:25> Condition: Stable <TREMAYNE Hartman Last Filed: 03/10/25 19:25> Instructions: Antibiotic Form <TREMAYNE Hartman Last Filed: 03/10/25 19:25> Patient Language: Lao <Sherlyn Burgess PA-C - Last Filed: 03/10/25 19:25> Prescriptions: No Action (DME) lancets [BD Microtainer Lancet] 30 gauge misc See Rx Instructions .Route Qty: 200 2RF Rx Instructions: ACHS insulin glargine [Lantus U-100 Insulin] 100 unit/mL Solution 10 unit subcut HS Qty: 300 0RF metoprolol succinate 25 mg tablet extended release 24 hr 37.5 mg PO BID Qty: 60 0RF spironolactone 25 mg Tablet 50 mg PO BID Qty: 30 0RF tamsulosin 0.4 mg Capsule 0.4 mg PO QAM Qty: 30 0RF pantoprazole 40 mg Tablet,Delayed Release (Dr/Ec) 40 mg PO Q12HR Qty: 30 0RF insulin aspart U-100 [Novolog FlexPen U-100 Insulin] 100 unit/mL (3 mL) insulin pen 1 sliding scale dose subcut USEASDIRECTD Qty: 15 0RF Rx Instructions: 71-149:0 units 150-199: 3 units 200-249: 5 units 252-299: 7 units 300-349: 10 units > 350 call albuterol sulfate 2.5 mg /3 mL (0.083 %) solution for nebulization 2.5 mg inhalation Q6H PRN (Reason: shortness of breath or wheezing) alprazolam 0.25 mg tablet 0.25 mg PO TID PRN (Reason: anxiety) dextrose 50 % in water (D50W) Parenteral Solution 12.5 g IV ONCE PRN (Reason: hypoglycemia) enoxaparin 40 mg/0.4 mL syringe 40 mg subcut DAILY (DME) blood-glucose meter Misc See Rx Instructions .ROUTE .MEDSUPPLY Qty: 1 0RF Rx Instructions: DAILY (DME) Blood Glucose Test Strip See Rx Instructions .Route Qty: 100 4RF Rx Instructions: ONCE DAILY <Sherlyn Burgess PA-C - Last Filed: 03/10/25 19:25> Follow-up/Referrals: PHYSICIAN NOT ON STAFF,NONSTAFF [Primary Care Provider] - <Sherlyn Burgess PA-C - Last Filed: 03/10/25 19:25>
[2025-03-10 18:11] LABS: Hematocrit 31.5 % (37.0-47.0); Hemoglobin 9.4 g/dL (12.0-15.0); Mean Corpuscular HGB Conc 29.8 g/dl (32-36); Mean Corpuscular Hemoglobin 27.3 pg (26-34); Mean Corpuscular Volume 91.6 fl (80-100); Mean Platelet Volume 9.5 fl (7.4-10.4); Platelet Count Result 353 k/mm3 (150-375); Red Blood Count 3.44 M/mm3 (4.2-5.4); White Blood Count 11.7 K/mm3 (4.5-10.0)
[2025-03-10 18:20] LABS: Add Urine Microscopic? YES; Appearance Urine Turbid (Clear); Bacteria Urine 4+ /hpf; Bilirubin Urine 2+ (Negative); Blood Urine 3+ (Negative); Color Urine Dark Yellow (Yellow); Glucose Urine UA Negative (Negative); Ketones Urine Negative (Negative); Leukocyte Esterase Ur 3+ LEU/UL (Negative); Need Manual Microscopic Reviewed; Nitrate Urine Positive (Negative); Non Pathogenic Casts >20; Protein Urine 3+ mg/dL (Negative); RBC Urine >100 /hpf (0-2); Specific Grav Ur 1.031 (1.001-1.035); Squamous Epithelial Cell Urine Moderate /hpf (Few); WBC Urine >100 /hpf (0-3); pH Urine 5.5 (5.0-9.0)
[2025-03-10 18:22] LABS: INR 1.3; Prothrombin Time 16.3 Seconds (11.1-14.7)
[2025-03-10 18:23] LABS: Partial Thromboplastin Time 26.3 Seconds (22.3-36.8)
[2025-03-10 18:26] LABS: Lactic Acid Reflex 1.3 mmol/L (0.7-2.0)
[2025-03-10 18:29] LABS: Alanine Aminotransferase 10 U/L (6-35); Albumin Level 2.8 g/dL (3.5-5.1); Alkaline Phosphatase 126 U/L (38-126); Anion Gap 2 mmol/L (4-12); Aspartate Amino Transferase 17 U/L (14-36); Bilirubin,Total 0.6 mg/dL (0.2-1.3); Blood Urea Nitrogen 18 mg/dL (7-17); Calcium 8.7 mg/dL (8.4-10.2); Carbon Dioxide 36 mmol/L (22-30); Chloride 98 mmol/L (98-107); Estimated CRCL calculation 89 ml/min; Estimated Glomerular Filt Rate > 60; Glucose 103 mg/dL (65-110); Potassium 3.3 mmol/L (3.4-5.0); Sodium 136 mmol/L (137-145); Total Protein 6.8 g/dL (6.3-8.2)
[2025-03-10 18:42] LABS: Band Neutrophils Percent 5 % (0-6); Eosinophils Absolute Manual 0.35 K/mm3 (0.02-0.50); Eosinophils Percent Manual 3 % (0-4); Hypochromasia 1+; Monocytes Absolute Manual 0.35 K/mm3 (0.1-0.90); Monocytes Percent Manual 3 % (3-9); Neutrophils Absolute Manual 10.29 K/mm3 (1.3-6.7); Neutrophils Percent Manual 83 % (46-73); Platelet Estimate Adequate (Adequate); Schistocytes None Seen; Total Cells Counted 100
[2025-03-10 18:43] LABS: Anisocytosis 3+
[2025-03-10 18:43] LABS: CRP 12.7 mg/dL (<1.0)
[2025-03-10 18:51] LABS: Magnesium 1.9 mg/dL (1.6-2.3)
[2025-03-10 19:01] LABS: Erythrocyte Sedimentation Rate 83 mm/hr (0-20)
[2025-03-10 19:10] VITALS: BP 145/60; PULSE 72; RESP 21; O2SAT 95
[2025-03-10] MEDS: metroNIDAZOLE 500 MG/ISO 100ML 500 MG/100 ML BAG 100 MG IVPB (19:17)
[2025-03-10 20:02] VITALS: BP 140/70; PULSE 74; RESP 20; O2SAT 92
[2025-03-10] MEDS: SODIUM CHLORIDE 0.9% IV 1,000 ML 125 ML IV CONT (20:06)
[2025-03-10] MEDS: POTASSIUM CHLORIDE INJ 40 MEQ in SODIUM CHLORIDE 0.9% IV 500 ML 130 MEQ IVPB (20:07)
--- NOTE | 2025-03-10 20:40 | PM.IMHP ---
H&P: HPI History of Present Illness Date/Time: 03/10/25 20:40 Chief Complaint: Left flank pain with worsening intraabdominal abscess Narrative: Bharti Neal is a 74 year old female patient admitted to the hospital for findings of increased presacral intraabdominal abscess with concern for bowel perforation. She has a complex past medical history of diverticulitis, DM, HTN, cardiac arrest, septic shock, respiratory failure, abdominal abscess, anemia, hypernatremia, A-fib, hypokalemia, bilateral nephrolithiasis, hematuria, and CHF with recent prolonged admission to this facility. Patient was at [facility] and complained of left flank pain. She reported chills but no fever. No nausea/vomiting or other abdominal pain. Repeat CT scan was obtained which showed significant worsening of known intraabdominal abscess, now with air interspersed concerning for rupture of bowel. Patient admitted on IV antibiotics and NPO status pending surgical evaluation in the morning. During previous hospitalization patient had multiple sets of positive blood cultures. Today, labs show WBC 11.7, Potassium 3.3, Sodium 136, CRP 12.7, ESR 83, eGFR >60 with eCrCl 89. UA concerning for infection with positive nitrates, 3+ leukocyte esterase, >100 RBCs, >100 WBCs, 4+ urine bacteria and >20 casts. Moderate squamous cells also present. Patient started on Rocephin and Flagyl in ER. Patient denies any difficulty breathing or chest pain. She notes some soreness to her back side. She also reports some nausea with rolling side to side for bed change and cleaning stool. Review of Systems Review of Systems: All systems reviewed & are unremarkable except as noted in HPI and below PMFSH Past Medical History Medical History Diabetes 1.5, managed as type 2 Hypertension Surgical History Surgical History No history of previous surgery Family History Family History Mother Heart attack Diabetes mellitus Type II DM Father , heart attack Heart attack Heart disease Sibling , gynecological cancer (lining of uterus per patient) No problems noted. Social History Social History Smoking status: Never smoker Second hand tobacco smoke exposure: No Alcohol intake: never Alcohol use details: occasional, [id number] Substance use: never Substance use type: does not use Do You Feel Safe in your Home?: Yes Lack of Transportation: No Lack of Food: Never True Current Housing: I Have Housing Concerned About Future Housing: No Difficulty Paying Gas/Electric Bills: No Difficulty Paying for Meds: No Currently Unemployed: No Education: Bachelor's Degree Difficulty w/ Childcare or Family Care: No Spiritual care concerns: No Meds Home Medications and Allergies Home Medications ?Medication ?Instructions ?Recorded ?Confirmed ?Type lancets 30 gauge (BD Microtainer #200 ea 11/04/24 03/10/25 Rx Lancet) blood sugar diagnostic (Blood #100 ea 11/23/24 03/10/25 Rx Glucose Test strips) blood-glucose meter #1 ea 11/23/24 03/10/25 Rx insulin glargine 100 unit/mL 10 unit (0.1 mL) subcut HS #300 mL 02/25/25 03/10/25 Rx subcutaneous solution (Lantus U-100 Insulin) metoprolol succinate 25 mg 37.5 mg (1.5 x 25 mg) PO BID #60 02/25/25 03/10/25 Rx tablet,extended release 24 hr tabs pantoprazole 40 mg tablet,delayed 40 mg PO Q12HR #30 tabs 02/25/25 03/10/25 Rx release spironolactone 25 mg tablet 50 mg (2 x 25 mg) PO BID #30 tabs 02/25/25 03/10/25 Rx tamsulosin 0.4 mg capsule 0.4 mg PO QAM #30 caps 02/25/25 03/10/25 Rx acetaminophen 325 mg tablet 325 mg PO Q6H PRN fever or pain 03/10/25 03/10/25 History albuterol sulfate 2.5 mg/3 mL 2.5 mg inhalation Q6H PRN 03/10/25 03/10/25 History (0.083 %) solution for nebulization shortness of breath or wheezing alprazolam 0.25 mg tablet 0.25 mg PO TID PRN anxiety 03/10/25 03/10/25 History dextrose 50 % in water (D50W) 12.5 g IV ONCE PRN hypoglycemia 03/10/25 03/10/25 History enoxaparin 40 mg/0.4 mL 40 mg subcut DAILY 03/10/25 03/10/25 History subcutaneous syringe fluticasone propionate 50 1 spray intranasal Q12H PRN 03/10/25 03/10/25 History mcg/actuation nasal allergy symptoms spray,suspension (Allergy Relief (fluticasone)) miconazole nitrate 2 % topical 1 applic topical BID 03/10/25 03/10/25 History cream (Antifungal (miconazole)) Allergies Allergy/AdvReac Type Severity Reaction Status Date / Time ciprofloxacin (From Cipro) Allergy Rash Verified 03/10/25 18:22 codeine Allergy Rash Verified 03/10/25 18:22 NSAIDS (Non-Steroidal AdvReac Nose Bleed Verified 03/10/25 19:08 Anti-Inflamma Vital Signs Vital Signs - 24 hr 03/10/25 17:32 03/10/25 17:55 03/10/25 19:10 Temperature 37.1 C Pulse Rate 69 66 72 Respiratory Rate 17 20 21 H Blood Pressure 145/71 H 115/57 L 145/60 H Pulse Oximetry 92 96 95 Oxygen Delivery Room Air 03/10/25 20:02 Temperature Pulse Rate 74 Respiratory Rate 20 Blood Pressure 140/70 Pulse Oximetry 92 Oxygen Delivery Exam Narrative: GENERAL: Chronically ill-appearing, well-nourished, and in no acute distress. HEAD: Normocephalic, atraumatic. EYES: EOMI. ENT: Nares clear, no rhinorrhea or epistaxis. Mucous membranes dry. NECK: Supple. No adenopathy or masses. CHEST: Clear to auscultation. No respiratory distress. No wheezes rales or rhonchi HEART: Regular rate and rhythm. Normal peripheral pulses. ABDOMEN: Soft, nontender, nondistended, normal bowel sounds. Chronic Espinoza catheter in place with dark yellow/orange urine noted. EXTREMITIES: Normal range of motion with global generalized weakness, no focal deficits. No edema. SKIN: Warm, dry, no rash. Sacral pressure ulcer noted, not open NEURO: No focal deficits. Alert and oriented x3. PSYCH: Normal mood and affect H&P: Results Labs Labs: Short CBC 03/10/25 Range/Units 18:01 WBC 11.7 H (4.5-10.0) K/mm3 Hgb 9.4 L (12.0-15.0) g/dL Hct 31.5 L (37.0-47.0) % Plt Count 353 (150-375) k/mm3 BMP 03/10/25 18:00 Sodium 136 L Potassium 3.3 L Chloride 98 Carbon Dioxide 36 H BUN 18 H Creatinine 0.54 L Glucose 103 Calcium 8.7 Liver Function 03/10/25 Range/Units 18:00 Total Bilirubin 0.6 (0.2-1.3) mg/dL AST 17 (14-36) U/L ALT 10 (6-35) U/L Alkaline Phosphatase 126 (38-126) U/L Albumin 2.8 L (3.5-5.1) g/dL Urine 03/10/25 Range/Units 18:00 Urine Color Dark yellow (Yellow) Urine Appearance Turbid H (Clear) Urine pH 5.5 (5.0-9.0) Ur Specific [place] 1.031 (1.001-1.035) Urine Protein 3+ H (Negative) mg/dL Urine Glucose (UA) Negative (Negative) mg/dL Pulse Oximetry SpO2 results: 90-96% on room air Attestation: I personally reviewed and interpreted this pulse oximetry as follows: Interpretation: no need for supplemental oxygenation at this time, apply if below 90% or dyspnea occurs Imaging CT scan - abdomen: Radiologist's impression: EXAMINATION: CT abdomen pelvis wo con DATE: 03/10/2025 13:59 INDICATION: Flank pain. TECHNIQUE: Computed tomography (CT) of the abdomen and pelvis was performed without intravenous contrast. The dose-length product was 1440.38 mGy-cm. Automated exposure control and iterative reconstruction technique were employed. COMPARISON: CT dated 02/15/2025. FINDINGS: There is an enlarging presacral abscess, although poorly defined due to lack of contrast. Espinoza catheter present in the bladder. Nonobstructive bowel pattern. There are nonobstructing bilateral renal stones, largest in the right renal pelvis. There are gallstones. There is extraluminal gas and fluid, suspicious for bowel perforation. Small pleural effusions. There is lower lobe airspace consolidation which may represent atelectasis or pneumonia. There are calcified granulomas of the spleen. Small pericardial effusion. There is a low-density 4 cm right adrenal mass, consistent with adenoma. IMPRESSION: 1. Enlarging presacral abscess. Exact measurements difficult to obtain due to lack of contrast. There is extraluminal gas and fluid, suspicious for bowel perforation. Recommend surgical consultation. 2: Cholelithiasis. 3: Bilateral nephrolithiasis. 4: Bilateral lower lobe airspace consolidation which may represent atelectasis and/or pneumonia. 5: Small pleural effusions. Reviewed, dictated and finalized at location A. Assessment and Plan Assessment and plan (1) Intra-abdominal abscess: Code(s): K65.1 - Peritoneal abscess Status: Acute Assessment and Plan: -Prior intraabdominal abscess s/p drain placement with complications related to diverticulitis was known -Repeat CT today due to Left flank pain showed worsening of abscess and concern for bowel perforation due to extraluminal gas on CT -ER started Rocephin and Flagyl -General surgery consulted in ER and will see patient tomorrow. (2) Type 2 diabetes mellitus with hyperglycemia: Code(s): E11.65 - Type 2 diabetes mellitus with hyperglycemia Status: Acute Assessment and Plan: -Resume Lantus on 03/11/25 -ACHS fingerstick glucose with SSI high dose -A1c 9.6 on 01/26/25, probably improved since then since in the hospital/acute rehab the whole time (3) Hypokalemia: Code(s): E87.6 - Hypokalemia Status: Acute Assessment and Plan: -Potassium level 3.3 in ER today, IV replacement 40 mEQ ordered and infusing -Repeat labs daily for now (4) Paroxysmal atrial fibrillation with RVR: Code(s): I48.0 - Paroxysmal atrial fibrillation Status: Acute Assessment and Plan: -Normal rate and rhythm today in ER -Anticoagulation not recommended at this time due to likely need for surgical intervention -Monitor Vital Signs Q4H and PRN (5) UTI (urinary tract infection): Qualifiers: Hematuria presence: without hematuria Urinary tract infection type: acute cystitis Qualified Code(s): N30.00 - Acute cystitis without hematuria Code(s): N39.0 - Urinary tract infection, site not specified Status: Ruled-out Assessment and Plan: -Chronic indwelling Espinoza catheter -UA appears potentially infected -Urine culture ordered -Blood cultures obtained (6) Critical illness myopathy: Code(s): G72.81 - Critical illness myopathy Status: Acute Assessment and Plan: -Patient generally weak s/p prolonged, complicated hospitalization -Not making much progress at acute rehab (7) Hx of cardiac arrest: Code(s): Z86.74 - Personal history of sudden cardiac arrest Status: Acute Assessment and Plan: -Prior hospitalization complicated by cardiac arrest during procedure to place drain into intraabdominal abscess -Led to prolonged stay and significant weakness Plan -Wound care consulted for apparent sacral pressure ulcers -Surgery to see on 03/11/25 -NPO and no anticoagulation at this time pending further instruction by General Surgery team Quality VTE Prophylaxis VTE prophylaxis: mechanical ordered If No VTE Prophylaxis Answer both mechanical and pharmacologic: Reason no pharmacologic proph: medical contraindication (Surgical intervention likely) Total time spent on this patient 100 minutes Hospitalist MIPS Advance Care Plan I have confirmed that the patient's Advanced Care Plan is present, code status is documented, or surrogate decision maker is listed in patient medical record.: Yes Medication Reconciliation I have utilized all available resources to obtain, update and review the patients current medications (includes all prescriptions, OTC, herbals, cannabis, and nutritional supplements).: Yes
[2025-03-10 21:55] VITALS: BMI 33.5
--- NOTE | 2025-03-10 21:56 | ADMGEN ---
This patient, Bharti Neal, was admitted to Medical Room 250-01. Patient/family oriented to hospital policies and general routines including ID bracelet, bed and alarms, visiting hours, pain management, procedures, bathroom and other care routines, personal items, smoking policy, room service/diet, and visiting hours. Information on how to activate the Rapid Response Team has been discussed. Patient/Family are encouraged to report perceived risks to care and to ask questions if they do not understand what they are told or what they should do.
[2025-03-10 22:00] VITALS: BP 142/63; PULSE 80; RESP 18; TEMP 36.4; O2SAT 90
[2025-03-11 00:17] LABS: Glucose Point of Care 94 mg/dl (65-105)
[2025-03-11] MEDS: ALPRAZolam (*CRX) 0.25 MG TABLET PO (01:04)
[2025-03-11] MEDS: MORPHINE SULFATE (*CRX) 4 MG/ML INJ IV PUSH ×2 (02:59→16:47)
[2025-03-11] MEDS: metroNIDAZOLE 500 MG/ISO 100ML 500 MG/100 ML BAG 100 MG IVPB ×3 (04:11→21:38)
[2025-03-11 05:26] LABS: Hematocrit 31.5 % (37.0-47.0); Hemoglobin 9.4 g/dL (12.0-15.0); Mean Corpuscular HGB Conc 29.8 g/dl (32-36); Mean Corpuscular Hemoglobin 27.2 pg (26-34); Mean Corpuscular Volume 91.3 fl (80-100); Mean Platelet Volume 9.5 fl (7.4-10.4); Platelet Count Result 384 k/mm3 (150-375); Red Blood Count 3.45 M/mm3 (4.2-5.4); Red Cell Distribution Width 23.3 % (11.5-14.5); White Blood Count 14.5 K/mm3 (4.5-10.0)
[2025-03-11 05:46] LABS: Alanine Aminotransferase 8 U/L (6-35); Albumin Level 2.5 g/dL (3.5-5.1); Alkaline Phosphatase 125 U/L (38-126); Anion Gap 3 mmol/L (4-12); Aspartate Amino Transferase 16 U/L (14-36); Bilirubin,Total 0.5 mg/dL (0.2-1.3); Blood Urea Nitrogen 16 mg/dL (7-17); Calcium 8.4 mg/dL (8.4-10.2); Carbon Dioxide 33 mmol/L (22-30); Chloride 102 mmol/L (98-107); Estimated CRCL calculation 94 ml/min; Estimated Glomerular Filt Rate > 60; Glucose 82 mg/dL (65-110); Magnesium 1.8 mg/dL (1.6-2.3); Potassium 3.8 mmol/L (3.4-5.0); Sodium 138 mmol/L (137-145); Total Protein 6.4 g/dL (6.3-8.2)
[2025-03-11 05:50] VITALS: BP 143/51; PULSE 76; RESP 18; TEMP 36.9; O2SAT 99
[2025-03-11 05:58] LABS: Band Neutrophils Percent 16 % (0-6); Lymphocytes Absolute Manual 0.29 K/mm3 (1.1-4.5); Monocytes Absolute Manual 0.58 K/mm3 (0.1-0.90); Monocytes Percent Manual 4 % (3-9); Neutrophils Absolute Manual 13.63 K/mm3 (1.3-6.7); Neutrophils Percent Manual 78 % (46-73); Platelet Estimate Adequate (Adequate); Total Cells Counted 100
[2025-03-11 05:59] LABS: Anisocytosis 1+; Hypochromasia 1+; Schistocytes None Seen
[2025-03-11] MEDS: MORPHINE SULFATE (*CRX) 2 MG/ML INJ IV PUSH (07:44)
--- NOTE | 2025-03-11 11:06 | PM.CNGS ---
Assessment and Plan Assessment and plan (1) Intra-abdominal abscess: Code(s): K65.1 - Peritoneal abscess Status: Acute Assessment and Plan: Patient presented to the ED yesterday, after CT ordered by KELY physician showed enlarging presacral abscess with extraluminal gas fluid suspicious for bowel perforation. Patient was recently hospitalized for an extended amount of time for similar diagnosis and discharged to [facility] just 2 weeks ago. Current WBC count 14.5. CRP 12.7 as of yesterday. Blood and urine cultures pending. No fevers. Complains of pain to the anus and lower back on exam. Spoke with radiologist who believes abscess is amenable to drainage and is agreeable to place drain tomorrow. Continue IV Rocephin and Flagyl. History of Present Illness Consult details Consult date: 03/11/25 Narrative: Patient is a 74-year-old female with complex past medical history who presented to the ED yesterday after CT showed findings of increased presacral intra-abdominal abscess with concern for bowel perforation. She previously had a very long hospitalization here from 01/25/25-02/25/25 for similar symptoms. During that admission, patient had gone into cardiac arrest during intra-abdominal drain placement. Abscess cultures grew bacteroides fragilis and E coli. Since this previous admission patient has been at [facility]. Reportedly, she complained of left flank pain yesterday, which prompted abdomen/pelvic CT to rule out nephrolithiasis. CT was positive for bilateral nephrolithiasis, as well as enlarging presacral abscess with extraluminal gas and fluid suspicious for bowel perforation. General surgery consulted. Upon exam today, patient does not complain of abdominal pain, nausea, or vomiting. WBC 14.5 (up from 11.7). Currently on Flagyl and Rocephin. Blood cultures pending. She complains of pain to her buttocks, localized to her anus. She also mentions some lower back pain. No history of prior abdominal surgery. Never had colonoscopy or Cologuard. [facility] Past Medical History Medical History Diabetes 1.5, managed as type 2 Hypertension Surgical History Surgical History No history of previous surgery Family History Family History Mother Heart attack Diabetes mellitus Type II DM Father , heart attack Heart attack Heart disease Sibling , gynecological cancer (lining of uterus per patient) No problems noted. Social History Social History Smoking status: Never smoker Second hand tobacco smoke exposure: No Alcohol intake: never Alcohol use details: occasional, [id number] Substance use: never Substance use type: does not use Do You Feel Safe in your Home?: Yes Lack of Transportation: No Lack of Food: Never True Current Housing: I Have Housing Concerned About Future Housing: No Difficulty Paying Gas/Electric Bills: No Difficulty Paying for Meds: No Currently Unemployed: No Education: Bachelor's Degree Difficulty w/ Childcare or Family Care: No Spiritual care concerns: No Meds Home Medications and Allergies Home Medications ?Medication ?Instructions ?Recorded ?Confirmed ?Type lancets 30 gauge (BD Microtainer #200 ea 11/04/24 03/10/25 Rx Lancet) blood sugar diagnostic (Blood #100 ea 11/23/24 03/10/25 Rx Glucose Test strips) blood-glucose meter #1 ea 11/23/24 03/10/25 Rx insulin glargine 100 unit/mL 10 unit (0.1 mL) subcut HS #300 mL 02/25/25 03/10/25 Rx subcutaneous solution (Lantus U-100 Insulin) metoprolol succinate 25 mg 37.5 mg (1.5 x 25 mg) PO BID #60 02/25/25 03/10/25 Rx tablet,extended release 24 hr tabs pantoprazole 40 mg tablet,delayed 40 mg PO Q12HR #30 tabs 02/25/25 03/10/25 Rx release spironolactone 25 mg tablet 50 mg (2 x 25 mg) PO BID #30 tabs 02/25/25 03/10/25 Rx tamsulosin 0.4 mg capsule 0.4 mg PO QAM #30 caps 02/25/25 03/10/25 Rx acetaminophen 325 mg tablet 325 mg PO Q6H PRN fever or pain 03/10/25 03/10/25 History albuterol sulfate 2.5 mg/3 mL 2.5 mg inhalation Q6H PRN 03/10/25 03/10/25 History (0.083 %) solution for nebulization shortness of breath or wheezing alprazolam 0.25 mg tablet 0.25 mg PO TID PRN anxiety 03/10/25 03/10/25 History dextrose 50 % in water (D50W) 12.5 g IV ONCE PRN hypoglycemia 03/10/25 03/10/25 History enoxaparin 40 mg/0.4 mL 40 mg subcut DAILY 03/10/25 03/10/25 History subcutaneous syringe fluticasone propionate 50 1 spray intranasal Q12H PRN 03/10/25 03/10/25 History mcg/actuation nasal allergy symptoms spray,suspension (Allergy Relief (fluticasone)) miconazole nitrate 2 % topical 1 applic topical BID 03/10/25 03/10/25 History cream (Antifungal (miconazole)) Allergies Allergy/AdvReac Type Severity Reaction Status Date / Time ciprofloxacin (From Cipro) Allergy Rash Verified 03/10/25 18:22 codeine Allergy Rash Verified 03/10/25 18:22 NSAIDS (Non-Steroidal AdvReac Nose Bleed Verified 03/10/25 19:08 Anti-Inflamma Vital Signs Vital Signs - 24 hr 03/10/25 17:32 03/10/25 17:55 03/10/25 19:10 Temperature 98.7 F Pulse Rate 69 66 72 Respiratory Rate 17 20 21 H Blood Pressure 145/71 H 115/57 L 145/60 H Pulse Oximetry 92 96 95 Oxygen Delivery Room Air 03/10/25 20:02 03/10/25 22:00 03/11/25 05:50 Temperature 97.6 F 98.4 F Pulse Rate 74 80 76 Respiratory Rate 20 18 18 Blood Pressure 140/70 142/63 H 143/51 H Pulse Oximetry 92 90 99 Oxygen Delivery Exam Const: General: uncomfortable Other: Patient complains of buttocks pain HENMT: Face/Nose/Sinus: Normal nares present Mouth: Yes moist mucous membranes Eyes: General: appearance normal, both eyes and all related structures Neck: Neck: supple Resp: Effort & Inspection: normal respiratory effort GI: Inspection: non-distended GI Palp: Yes Soft to palpation, No Tenderness to palpation present (GI) and No Guarding due to palpation present (GI) Urinary Catheter: Urinary Catheter: urine dark Skin: General skin exam: normal color Other: Possible early sacral decubitus pressure wound present. Difficult to assess d/t patients immobility. Psych: Affect: Anxious affect present Results Labs 03/11/25 04:46 03/11/25 04:46 Labs: Abnormal lab results 03/10/25 03/10/25 03/11/25 Range/Units 18:00 18:01 04:46 WBC 11.7 H 14.5 H (4.5-10.0) K/mm3 RBC 3.44 L 3.45 L (4.2-5.4) M/mm3 Hgb 9.4 L 9.4 L (12.0-15.0) g/dL Hct 31.5 L 31.5 L (37.0-47.0) % MCHC 29.8 L 29.8 L (32-36) g/dl RDW 23.0 H 23.3 H (11.5-14.5) % Plt Count 384 H (150-375) k/mm3 Neutrophils % (Manual) 83 H 78 H (46-73) % Band Neutrophils % 16 H (0-6) % Lymphocytes % (Manual) 6.0 L 2.0 L (18-44) % Abs Neuts (Manual) 10.29 H 13.63 H (1.3-6.7) K/mm3 Abs Lymphs (Manual) 0.70 L 0.29 L (1.1-4.5) K/mm3 ESR 83 H (0-20) mm/hr PT 16.3 H (11.1-14.7) Seconds Sodium 136 L (137-145) mmol/L Potassium 3.3 L (3.4-5.0) mmol/L Carbon Dioxide 36 H 33 H (22-30) mmol/L Anion Gap 2 L 3 L (4-12) mmol/L BUN 18 H (7-17) mg/dL Creatinine 0.54 L 0.51 L (0.7-1.0) mg/dL C-Reactive Protein 12.7 H (<1.0) mg/dL Albumin 2.8 L 2.5 L (3.5-5.1) g/dL Urine Appearance Turbid H (Clear) Urine Protein 3+ H (Negative) mg/dL Ur Blood (Man) 3+ H (Negative) Urine Nitrate Positive H (Negative) Urine Bilirubin 2+ H (Negative) Leukocyte Esterase Rfl 3+ H (Negative) PRICE/UL Urine RBC >100 H (0-2) /hpf Urine WBC >100 H (0-3) /hpf Urine Bacteria 4+ H /hpf Diabetes panel 03/10/25 03/11/25 Range/Units 18:00 04:46 Sodium 136 L 138 (137-145) mmol/L Potassium 3.3 L 3.8 (3.4-5.0) mmol/L Chloride 98 102 (98-107) mmol/L Carbon Dioxide 36 H 33 H (22-30) mmol/L BUN 18 H 16 (7-17) mg/dL Creatinine 0.54 L 0.51 L (0.7-1.0) mg/dL Glucose 103 82 (65-110) mg/dL Calcium 8.7 8.4 (8.4-10.2) mg/dL AST 17 16 (14-36) U/L ALT 10 8 (6-35) U/L Alkaline Phosphatase 126 125 (38-126) U/L Total Protein 6.8 6.4 (6.3-8.2) g/dL Albumin 2.8 L 2.5 L (3.5-5.1) g/dL Calcium panel 03/10/25 03/11/25 Range/Units 18:00 04:46 Calcium 8.7 8.4 (8.4-10.2) mg/dL Albumin 2.8 L 2.5 L (3.5-5.1) g/dL Pituitary panel 03/10/25 03/11/25 Range/Units 18:00 04:46 Sodium 136 L 138 (137-145) mmol/L Potassium 3.3 L 3.8 (3.4-5.0) mmol/L Chloride 98 102 (98-107) mmol/L Carbon Dioxide 36 H 33 H (22-30) mmol/L BUN 18 H 16 (7-17) mg/dL Creatinine 0.54 L 0.51 L (0.7-1.0) mg/dL Glucose 103 82 (65-110) mg/dL Calcium 8.7 8.4 (8.4-10.2) mg/dL Adrenal panel 03/10/25 03/11/25 Range/Units 18:00 04:46 Sodium 136 L 138 (137-145) mmol/L Potassium 3.3 L 3.8 (3.4-5.0) mmol/L Chloride 98 102 (98-107) mmol/L Carbon Dioxide 36 H 33 H (22-30) mmol/L BUN 18 H 16 (7-17) mg/dL Creatinine 0.54 L 0.51 L (0.7-1.0) mg/dL Glucose 103 82 (65-110) mg/dL Calcium 8.7 8.4 (8.4-10.2) mg/dL Total Bilirubin 0.6 0.5 (0.2-1.3) mg/dL AST 17 16 (14-36) U/L ALT 10 8 (6-35) U/L Alkaline Phosphatase 126 125 (38-126) U/L Total Protein 6.8 6.4 (6.3-8.2) g/dL Albumin 2.8 L 2.5 L (3.5-5.1) g/dL All other labs normal.
[2025-03-11 12:03] LABS: Glucose Point of Care 78 mg/dl (65-105)
--- NOTE | 2025-03-11 12:33 | P.PNIM_ITS ---
Progress Note: A&P Assessment and Plan (1) Intra-abdominal abscess: Code(s): K65.1 - Peritoneal abscess Status: Acute Assessment and Plan: -Prior intraabdominal abscess s/p drain placement with complications related to diverticulitis was known -Repeat CT due to Left flank pain showed worsening of abscess and concern for bowel perforation due to extraluminal gas on CT -ER started Rocephin and Flagyl -General surgery consulted and await their recommendations (2) Type 2 diabetes mellitus with hyperglycemia: Code(s): E11.65 - Type 2 diabetes mellitus with hyperglycemia Status: Acute Assessment and Plan: -Resume Lantus on 03/11/25 -ACHS fingerstick glucose with SSI high dose -A1c 9.6 on 01/26/25, probably improved since then since in the hospital/acute rehab the whole time (3) Hypokalemia: Code(s): E87.6 - Hypokalemia Status: Acute Assessment and Plan: -replace and monitor (4) Paroxysmal atrial fibrillation with RVR: Code(s): I48.0 - Paroxysmal atrial fibrillation Status: Acute Assessment and Plan: - Anticoagulation not recommended at this time due to likely need for surgical intervention -Monitor Vital Signs Q4H and PRN (5) UTI (urinary tract infection): Qualifiers: Urinary tract infection type: acute cystitis Hematuria presence: without hematuria Qualified Code(s): N30.00 - Acute cystitis without hematuria Code(s): N39.0 - Urinary tract infection, site not specified Status: Ruled-out Assessment and Plan: -Chronic indwelling Espinoza catheter -UA appears potentially infected -Urine culture ordered -Blood cultures obtained (6) Critical illness myopathy: Code(s): G72.81 - Critical illness myopathy Status: Acute Assessment and Plan: -Patient generally weak s/p prolonged, complicated hospitalization -Not making much progress at acute rehab (7) Hx of cardiac arrest: Code(s): Z86.74 - Personal history of sudden cardiac arrest Status: Acute Assessment and Plan: -Prior hospitalization complicated by cardiac arrest during procedure to place d rain into intraabdominal abscess -Led to prolonged stay and significant weakness (8) Sacral decubitus ulcer: Code(s): L89.159 - Pressure ulcer of sacral region, unspecified stage Status: Acute Assessment and Plan: -Wound care consulted for apparent sacral pressure ulcers (9) UTI (urinary tract infection): Code(s): N39.0 - Urinary tract infection, site not specified Status: Acute Assessment and Plan: follow urine culture. on ceftriaxone Subjective Date/time seen: 03/11/25 12:33 Interval history: chart reviewed. reports abdominal pain on left lower quadrant, family at bedside. Review of Systems Review of Systems: All systems reviewed & are unremarkable except as noted in HPI and below Exam Narrative: GENERAL: Chronically ill-appearing, well-nourished, and in no acute distress. HEAD: Normocephalic, atraumatic. EYES: EOMI. ENT: Nares clear, no rhinorrhea or epistaxis. Mucous membranes dry. NECK: Supple. No adenopathy or masses. CHEST: Clear to auscultation. No respiratory distress. No wheezes rales or rhonchi HEART: Regular rate and rhythm. Normal peripheral pulses. ABDOMEN: Soft, nontender, nondistended, normal bowel sounds. Chronic Espinoza catheter in place with dark yellow/orange urine noted. EXTREMITIES: Normal range of motion with global generalized weakness, no focal deficits. No edema. SKIN: Warm, dry, no rash. Sacral pressure ulcer noted, not open NEURO: No focal deficits. Alert and oriented x3. PSYCH: Normal mood and affect Objective Data Vital Signs Vital Signs: Vital Signs - 24 hr 03/10/25 17:32 03/10/25 17:55 03/10/25 19:10 Temperature 98.7 F Pulse Rate 69 66 72 Respiratory Rate 17 20 21 H Blood Pressure 145/71 H 115/57 L 145/60 H Pulse Oximetry 92 96 95 Oxygen Delivery Room Air 03/10/25 20:02 03/10/25 22:00 03/11/25 05:50 Temperature 97.6 F 98.4 F Pulse Rate 74 80 76 Respiratory Rate 20 18 18 Blood Pressure 140/70 142/63 H 143/51 H Pulse Oximetry 92 90 99 Oxygen Delivery Intake/Output Intake/Output: Intake & Output 03/08/25 03/09/25 03/10/25 03/11/25 23:59 23:59 23:59 23:59 Intake Total 150 705 Output Total 400 Balance 150 305 Meds/Results Medications: Active Medications Generic Name Dose Route Start Last Admin Trade Name Freq PRN Reason Stop Dose Admin Acetaminophen 325 mg 03/11/25 00:29 Acetaminophen 325 Mg Tablet PO Q6H PRN fever or pain Albuterol 2.5 mg 03/10/25 23:09 Albuterol Sulfate Neb 2.5 Mg/3 Ml Inh INHALATION Q6HRT PRN shortness of breath or wheezing Alprazolam 0.25 mg 03/10/25 23:09 03/11/25 01:04 Alprazolam (*Crx) 0.25 Mg Tablet PO 0.25 mg TID PRN Administration anxiety Dextrose 12.5 gm 03/10/25 23:10 Dextrose 50% 25 Gm/50 Ml Syringe IV PUSH PRN PRN Hypoglycemia Protocol Fluticasone Propionate 1 spray 03/11/25 00:29 Fluticasone Propionate 0.05% Na Spr 16 Gm Btl (*Bkc) NASAL Q12H PRN allergy symptoms Glucagon 1 mg 03/10/25 23:10 Glucagon For Inj 1 Mg Vial IM PRN PRN Hypoglycemia Protocol Glucose 15 gm 03/10/25 23:10 Glucose Oral Gel 15 Gm Of Glucse In 37.5 Gm Tube PO PRN PRN Hypoglycemia Protocol Sodium Chloride 1,000 mls @ 100 mls/hr 03/10/25 19:05 03/11/25 02:46 Normal Saline Iv IV CONT 100 mls/hr .Q10H KANDIS Infusion Ceftriaxone Sodium 1 gm in 50 mls @ 100 mls/hr 03/11/25 19:00 Rocephin 1 Gm/Ns 50 Ml IVPB Q24H KANDIS Metronidazole 500 mg in 100 mls @ 100 mls/hr 03/11/25 04:00 03/11/25 12:04 Flagyl 500 Mg/Iso Soln 100 Ml IVPB 100 mls/hr Q8H KANDIS Administration Dextrose 1,000 mls @ 100 mls/hr 03/10/25 23:10 Dextrose 5% 1,000 Ml IVPB PRN PRN Hypoglycemia Protocol Insulin Aspart 4 - 8 units 03/11/25 08:00 03/11/25 12:04 Insulin Aspart (*Bkc) 100 Units/Ml SUB-Q Not Given TIDWM KANDIS Protocol Insulin Glargine 10 units 03/11/25 21:00 Insulin Glargine (*Bkc) 100 Units/Ml SUB-Q HS [facility] Metoprolol Succinate 37.5 mg 03/11/25 09:00 03/11/25 08:17 Metoprolol Succinate Ext Rel 12.5 Mg Tabcr PO Not Given Q12HR [facility] Miconazole Nitrate 1 applic 03/11/25 09:00 03/11/25 08:17 Miconazole Nitrate 2% Cream 30 Gm Tube TOPICAL Not Given BID [facility] Morphine Sulfate 2 mg 03/11/25 10:29 Morphine Sulfate (*Crx) 2 Mg/Ml Inj IV PUSH Q2H PRN Pain Rated 4-6 Morphine Sulfate 4 mg 03/11/25 10:28 Morphine Sulfate (*Crx) 4 Mg/Ml Inj IV PUSH Q2H PRN Pain Rated 7-10 Pantoprazole Sodium 40 mg 03/11/25 09:00 03/11/25 08:17 Pantoprazole 40 Mg Tablet PO Not Given Q12HR [facility] Spironolactone 50 mg 03/11/25 09:00 03/11/25 08:17 Spironolactone 25 Mg Tablet PO Not Given BID [facility] Tamsulosin HCl 0.4 mg 03/11/25 09:00 03/11/25 08:17 Tamsulosin Hcl 0.4 Mg Capsule PO Not Given QAM [facility] Labs Labs: Laboratory Results - last 24 hr 03/10/25 03/10/25 03/10/25 17:59 18:00 18:01 WBC 11.7 H RBC 3.44 L Hgb 9.4 L Hct 31.5 L MCV 91.6 MCH 27.3 MCHC 29.8 L RDW 23.0 H Plt Count 353 MPV 9.5 Immature Gran % (Auto) Not Reportable Neut % (Auto) Not Reportable Lymph % (Auto) Not Reportable [place] % (Auto) Not Reportable Eos % (Auto) Not Reportable Baso % (Auto) Not Reportable Lymph # (Auto) Not Reportable [place] # (Auto) Not Reportable Eos # (Auto) Not Reportable Baso # (Auto) Not Reportable Abs Immat Gran (auto) Not Reportable Absolute Neuts (auto) Not Reportable Absolute Nucleated RBC Not Reportable Total Counted 100 Neutrophils % (Manual) 83 H Band Neutrophils % 5 Lymphocytes % (Manual) 6.0 L Monocytes % (Manual) 3 Eosinophils % (Manual) 3 Nucleated RBC % Not Reportable Abs Neuts (Manual) 10.29 H Abs Lymphs (Manual) 0.70 L Abs Monocytes (Manual) 0.35 Absolute Eos (Manual) 0.35 Platelet Estimate Adequate Hypochromasia 1+ Anisocytosis 3+ Schistocytes None seen ESR 83 H PT 16.3 H INR 1.3 APTT 26.3 Sodium 136 L Potassium 3.3 L Chloride 98 Carbon Dioxide 36 H Anion Gap 2 L BUN 18 H Creatinine 0.54 L Estim Creat Clear Calc 89 Estimated GFR > 60 Glucose 103 POC Capillary Glucose Lactic Acid 1.3 Calcium 8.7 Magnesium 1.9 Total Bilirubin 0.6 AST 17 ALT 10 Alkaline Phosphatase 126 C-Reactive Protein 12.7 H Total Protein 6.8 Albumin 2.8 L Urine Color Dark yellow Urine Appearance Turbid H Urine pH 5.5 Ur Specific [place] 1.031 Urine Protein 3+ H Urine Glucose (UA) Negative Urine Ketones Negative Ur Blood (Man) 3+ H Urine Nitrate Positive H Urine Bilirubin 2+ H Urine Urobilinogen 1.0 Add Ur Microanalysis Reviewed Leukocyte Esterase Rfl 3+ H Urine RBC >100 H Urine WBC >100 H Ur Squamous Epith Cells Moderate Urine Bacteria 4+ H Urine Casts >20 03/11/25 03/11/25 03/11/25 00:14 04:46 11:54 WBC 14.5 H RBC 3.45 L Hgb 9.4 L Hct 31.5 L MCV 91.3 MCH 27.2 MCHC 29.8 L RDW 23.3 H Plt Count 384 H MPV 9.5 Immature Gran % (Auto) Not Reportable Neut % (Auto) Not Reportable Lymph % (Auto) Not Reportable [place] % (Auto) Not Reportable Eos % (Auto) Not Reportable Baso % (Auto) Not Reportable Lymph # (Auto) Not Reportable [place] # (Auto) Not Reportable Eos # (Auto) Not Reportable Baso # (Auto) Not Reportable Abs Immat Gran (auto) Not Reportable Absolute Neuts (auto) Not Reportable Absolute Nucleated RBC Not Reportable Total Counted 100 Neutrophils % (Manual) 78 H Band Neutrophils % 16 H Lymphocytes % (Manual) 2.0 L Monocytes % (Manual) 4 Eosinophils % (Manual) Nucleated RBC % Not Reportable Abs Neuts (Manual) 13.63 H Abs Lymphs (Manual) 0.29 L Abs Monocytes (Manual) 0.58 Absolute Eos (Manual) Platelet Estimate Adequate Hypochromasia 1+ Anisocytosis 1+ Schistocytes None seen ESR PT INR APTT Sodium 138 Potassium 3.8 Chloride 102 Carbon Dioxide 33 H Anion Gap 3 L BUN 16 Creatinine 0.51 L Estim Creat Clear Calc 94 Estimated GFR > 60 Glucose 82 POC Capillary Glucose 94 78 Lactic Acid Calcium 8.4 Magnesium 1.8 Total Bilirubin 0.5 AST 16 ALT 8 Alkaline Phosphatase 125 C-Reactive Protein Total Protein 6.4 Albumin 2.5 L Urine Color Urine Appearance Urine pH Ur Specific [place] Urine Protein Urine Glucose (UA) Urine Ketones Ur Blood (Man) Urine Nitrate Urine Bilirubin Urine Urobilinogen Add Ur Microanalysis Leukocyte Esterase Rfl Urine RBC Urine WBC Ur Squamous Epith Cells Urine Bacteria Urine Casts
[2025-03-11] MEDS: SODIUM CHLORIDE 0.9% IV 1,000 ML 100 ML IV CONT (13:51)
[2025-03-11 14:00] VITALS: BP 135/56; PULSE 76; RESP 20; TEMP 36.2; O2SAT 97
[2025-03-11] MEDS: MICONAZOLE NITRATE 2% CREAM 30 GM TUBE 1 APPLIC TOPICAL (16:14)
[2025-03-11 18:08] LABS: Glucose Point of Care 118 mg/dl (65-105)
[2025-03-11 20:22] VITALS: BP 114/50; PULSE 75; RESP 16; TEMP 36.5; O2SAT 100
[2025-03-11 21:32] LABS: Glucose Point of Care 95 mg/dl (65-105)
[2025-03-11] MEDS: PANTOPRAZOLE 40 MG TABLET PO (21:45)
[2025-03-11 22:40] VITALS: PULSE 75
[2025-03-11] MEDS: METOPROLOL SUCCINATE EXT REL 12.5 MG TABCR 37.5 MG PO (22:40)
[2025-03-12] VITALS (8 sets, daily range): BP systolic 129–149; BP diastolic 62–73; PULSE 68–75; RESP 18–22; TEMP 36.6–36.7; O2SAT 88–98
[2025-03-12] MEDS: SODIUM CHLORIDE 0.9% IV 1,000 ML 100 ML IV CONT ×2 (01:29→21:53)
[2025-03-12] MEDS: ALPRAZolam (*CRX) 0.25 MG TABLET PO ×2 (01:31→18:04)
[2025-03-12] MEDS: MORPHINE SULFATE (*CRX) 4 MG/ML INJ IV PUSH ×2 (02:36→14:49)
[2025-03-12] MEDS: metroNIDAZOLE 500 MG/ISO 100ML 500 MG/100 ML BAG 100 MG IVPB ×3 (05:11→22:05)
[2025-03-12 05:38] LABS: Glucose Point of Care 75 mg/dl (65-105)
[2025-03-12 06:18] LABS: Hematocrit 31.3 % (37.0-47.0); Hemoglobin 9.6 g/dL (12.0-15.0); Mean Corpuscular HGB Conc 30.7 g/dl (32-36); Mean Corpuscular Hemoglobin 27.7 pg (26-34); Mean Corpuscular Volume 90.2 fl (80-100); Mean Platelet Volume 9.4 fl (7.4-10.4); Platelet Count Result 401 k/mm3 (150-375); Red Blood Count 3.47 M/mm3 (4.2-5.4); White Blood Count 17.1 K/mm3 (4.5-10.0)
[2025-03-12 06:34] LABS: Alanine Aminotransferase 6 U/L (6-35); Albumin Level 2.5 g/dL (3.5-5.1); Alkaline Phosphatase 139 U/L (38-126); Anion Gap 9 mmol/L (4-12); Aspartate Amino Transferase 17 U/L (14-36); Bilirubin,Total 0.5 mg/dL (0.2-1.3); Blood Urea Nitrogen 13 mg/dL (7-17); Calcium 8.4 mg/dL (8.4-10.2); Carbon Dioxide 26 mmol/L (22-30); Chloride 103 mmol/L (98-107); Estimated CRCL calculation 99 ml/min; Estimated Glomerular Filt Rate > 60; Glucose 70 mg/dL (65-110); Magnesium 1.9 mg/dL (1.6-2.3); Potassium 3.4 mmol/L (3.4-5.0); Sodium 138 mmol/L (137-145); Total Protein 6.3 g/dL (6.3-8.2)
[2025-03-12] MEDS: DEXTROSE 5%/LACTATED RINGERS 1,000 ML 100 ML IV CONT ×2 (06:44→18:02)
[2025-03-12 07:02] LABS: Anisocytosis 2+; Band Neutrophils Percent 9 % (0-6); Hypochromasia 1+; Lymphocytes Absolute Manual 0.51 K/mm3 (1.1-4.5); Lymphocytes Percent Manual 3 % (18-44); Monocytes Absolute Manual 0.17 K/mm3 (0.1-0.90); Monocytes Percent Manual 1 % (3-9); Neutrophils Absolute Manual 16.41 K/mm3 (1.3-6.7); Neutrophils Percent Manual 87 % (46-73); Platelet Estimate Increased (Adequate); Schistocytes None Seen; Total Cells Counted 100
--- NOTE | 2025-03-12 07:43 | PM.IMPN ---
Progress Note: A&P Assessment and Plan (1) Intra-abdominal abscess: Code(s): K65.1 - Peritoneal abscess Status: Acute Assessment and Plan: -Prior intraabdominal abscess s/p drain placement with complications related to diverticulitis was known -Repeat CT due to Left flank pain showed worsening of abscess and concern for bowel perforation due to extraluminal gas on CT -ER started Rocephin and Flagyl -General surgery consulted 03/12 - schedule for drain placement today with radiology continue ceftriaxone 1gm q24h, flagyl 500 mg q8h (2) Type 2 diabetes mellitus with hyperglycemia: Code(s): E11.65 - Type 2 diabetes mellitus with hyperglycemia Status: Acute Assessment and Plan: -Resume Lantus on 03/11/25 -ACHS fingerstick glucose with SSI high dose -A1c 9.6 on 01/26/25, probably improved since then since in the hospital/acute rehab the whole time (3) Hypokalemia: Code(s): E87.6 - Hypokalemia Status: Acute Assessment and Plan: -replace and monitor 3.4 today monitor for now (4) Paroxysmal atrial fibrillation with RVR: Code(s): I48.0 - Paroxysmal atrial fibrillation Status: Acute Assessment and Plan: - Anticoagulation not recommended at this time due to likely need for surgical intervention -Monitor Vital Signs Q4H and PRN (5) UTI (urinary tract infection): Qualifiers: Hematuria presence: without hematuria Urinary tract infection type: acute cystitis Qualified Code(s): N30.00 - Acute cystitis without hematuria Code(s): N39.0 - Urinary tract infection, site not specified Status: Ruled-out Assessment and Plan: -Chronic indwelling Espinoza catheter -UA appears potentially infected -Urine culture ordered -Blood cultures obtained (6) Critical illness myopathy: Code(s): G72.81 - Critical illness myopathy Status: Acute Assessment and Plan: -Patient generally weak s/p prolonged, complicated hospitalization -Not making much progress at acute rehab (7) Hx of cardiac arrest: Code(s): Z86.74 - Personal history of sudden cardiac arrest Status: Acute Assessment and Plan: -Prior hospitalization complicated by cardiac arrest during procedure to place drain into intraabdominal abscess -Led to prolonged stay and significant weakness (8) Sacral decubitus ulcer: Code(s): L89.159 - Pressure ulcer of sacral region, unspecified stage Status: Acute Assessment and Plan: -Wound care consulted for apparent sacral pressure ulcers Time Spent With Patient Time with patient: 25 - 35 minutes Subjective Date/time seen: 03/12/25 07:43 Interval history: Bharti Neal is a 74 year old female patient admitted to the hospital for findings of increased presacral intraabdominal abscess with concern for bowel perforation. She has a complex past medical history of diverticulitis, DM, HTN, cardiac arrest, septic shock, respiratory failure, abdominal abscess, anemia, hypernatremia, A-fib, hypokalemia, bilateral nephrolithiasis, hematuria, and CHF with recent prolonged admission to this facility. Patient was at [facility] and complained of left flank pain. She reported chills but no fever. No nausea/vomiting or other abdominal pain. Repeat CT scan was obtained which showed significant worsening of known intraabdominal abscess, now with air interspersed concerning for rupture of bowel. Patient admitted on IV antibiotics, NPO and surgical eval. 03/12- pt is seen and examined. Plan is to have drain placed today per radiology. Review of Systems Review of Systems: All systems reviewed & are unremarkable except as noted in HPI and below Exam Narrative: GENERAL: Chronically ill-appearing, well-nourished, and in no acute distress. HEAD: Normocephalic, atraumatic. EYES: EOMI. ENT: Nares clear, no rhinorrhea or epistaxis. Mucous membranes dry. NECK: Supple. No adenopathy or masses. CHEST: Clear to auscultation. No respiratory distress. No wheezes rales or rhonchi HEART: Regular rate and rhythm. Normal peripheral pulses. ABDOMEN: Soft, nontender, nondistended, normal bowel sounds. Chronic Espinoza catheter in place with dark yellow/orange urine noted. EXTREMITIES: Normal range of motion with global generalized weakness, no focal deficits. No edema. SKIN: Warm, dry, no rash. Sacral pressure ulcer noted, not open NEURO: No focal deficits. Alert and oriented x3. PSYCH: Normal mood and affect Objective Data Vital Signs Vital Signs: Vital Signs - 24 hr 03/11/25 14:00 03/11/25 20:00 03/11/25 20:22 Temperature 97.1 F L 97.7 F Pulse Rate 76 75 Respiratory Rate 20 16 Blood Pressure 135/56 L 114/50 L Pulse Oximetry 97 100 Oxygen Delivery Room Air 03/11/25 22:40 03/12/25 04:39 Temperature 98.1 F Pulse Rate 75 75 Respiratory Rate 18 Blood Pressure 149/68 H Pulse Oximetry 90 Oxygen Delivery Intake/Output Intake/Output: Intake & Output 03/09/25 03/10/25 03/11/25 03/12/25 23:59 23:59 23:59 23:59 Intake Total 150 1820 1696 Output Total 875 800 Balance 150 945 896 Meds/Results Medications: Active Medications Generic Name Dose Route Start Last Admin Trade Name Freq PRN Reason Stop Dose Admin Acetaminophen 325 mg 03/11/25 00:29 Acetaminophen 325 Mg Tablet PO Q6H PRN fever or pain Albuterol 2.5 mg 03/10/25 23:09 Albuterol Sulfate Neb 2.5 Mg/3 Ml Inh INHALATION Q6HRT PRN shortness of breath or wheezing Alprazolam 0.25 mg 03/10/25 23:09 03/12/25 01:31 Alprazolam (*Crx) 0.25 Mg Tablet PO 0.25 mg TID PRN Administration anxiety Dextrose 12.5 gm 03/10/25 23:10 Dextrose 50% 25 Gm/50 Ml Syringe IV PUSH PRN PRN Hypoglycemia Protocol Fluticasone Propionate 1 spray 03/11/25 00:29 Fluticasone Propionate 0.05% Na Spr 16 Gm Btl (*Bkc) NASAL Q12H PRN allergy symptoms Glucagon 1 mg 03/10/25 23:10 Glucagon For Inj 1 Mg Vial IM PRN PRN Hypoglycemia Protocol Glucose 15 gm 03/10/25 23:10 Glucose Oral Gel 15 Gm Of Glucse In 37.5 Gm Tube PO PRN PRN Hypoglycemia Protocol Ceftriaxone Sodium 1 gm in 50 mls @ 100 mls/hr 03/11/25 19:00 03/11/25 18:16 Rocephin 1 Gm/Ns 50 Ml IVPB 100 mls/hr Q24H [facility] Administration Metronidazole 500 mg in 100 mls @ 100 mls/hr 03/11/25 04:00 03/12/25 06:11 Flagyl 500 Mg/Iso Soln 100 Ml IVPB Infused Q8H [facility] Infusion Dextrose 1,000 mls @ 100 mls/hr 03/10/25 23:10 Dextrose 5% 1,000 Ml IVPB PRN PRN Hypoglycemia Protocol Dextrose/Lactated Ringer's 1,000 mls @ 100 mls/hr 03/12/25 05:25 03/12/25 06:44 Dextrose 5%/Lactated Ringers IV CONT 100 mls/hr .Q10H [facility] Administration Insulin Aspart 4 - 8 units 03/11/25 08:00 03/11/25 16:16 Insulin Aspart (*Bkc) 100 Units/Ml SUB-Q Not Given TIDWM [facility] Protocol Insulin Glargine 10 units 03/11/25 21:00 03/11/25 21:39 Insulin Glargine (*Bkc) 100 Units/Ml SUB-Q Not Given HS [facility] Metoprolol Succinate 37.5 mg 03/11/25 09:00 03/11/25 22:40 Metoprolol Succinate Ext Rel 12.5 Mg Tabcr PO 37.5 mg Q12HR [facility] Administration Miconazole Nitrate 1 applic 03/11/25 09:00 03/11/25 16:14 Miconazole Nitrate 2% Cream 30 Gm Tube TOPICAL 1 applic BID [facility] Administration Morphine Sulfate 2 mg 03/11/25 10:29 Morphine Sulfate (*Crx) 2 Mg/Ml Inj IV PUSH Q2H PRN Pain Rated 4-6 Morphine Sulfate 4 mg 03/11/25 10:28 03/12/25 02:36 Morphine Sulfate (*Crx) 4 Mg/Ml Inj IV PUSH 4 mg Q2H PRN Administration Pain Rated 7-10 Pantoprazole Sodium 40 mg 03/11/25 09:00 03/11/25 21:45 Pantoprazole 40 Mg Tablet PO 40 mg Q12HR [facility] Administration Simethicone 80 mg 03/12/25 02:31 Simethicone 80 Mg Tab.Chew PO QID PRN Gas Discomfort Spironolactone 50 mg 03/11/25 09:00 03/11/25 16:12 Spironolactone 25 Mg Tablet PO Not Given BID [facility] Tamsulosin HCl 0.4 mg 03/11/25 09:00 03/11/25 08:17 Tamsulosin Hcl 0.4 Mg Capsule PO Not Given QAM [facility] Labs Labs: Laboratory Results - last 24 hr 03/11/25 03/11/25 03/11/25 11:54 18:04 21:29 WBC RBC Hgb Hct MCV MCH MCHC RDW Plt Count MPV Immature Gran % (Auto) Neut % (Auto) Lymph % (Auto) [place] % (Auto) Eos % (Auto) Baso % (Auto) Lymph # (Auto) [place] # (Auto) Eos # (Auto) Baso # (Auto) Abs Immat Gran (auto) Absolute Neuts (auto) Absolute Nucleated RBC Total Counted Neutrophils % (Manual) Band Neutrophils % Lymphocytes % (Manual) Monocytes % (Manual) Nucleated RBC % Abs Neuts (Manual) Abs Lymphs (Manual) Abs Monocytes (Manual) Platelet Estimate Hypochromasia Anisocytosis Schistocytes Sodium Potassium Chloride Carbon Dioxide Anion Gap BUN Creatinine Estim Creat Clear Calc Estimated GFR Glucose POC Capillary Glucose 78 118 H 95 Calcium Magnesium Total Bilirubin AST ALT Alkaline Phosphatase Total Protein Albumin 03/12/25 03/12/25 05:19 05:30 WBC 17.1 H RBC 3.47 L Hgb 9.6 L Hct 31.3 L MCV 90.2 MCH 27.7 MCHC 30.7 L RDW 23.0 H Plt Count 401 H MPV 9.4 Immature Gran % (Auto) Not Reportable Neut % (Auto) Not Reportable Lymph % (Auto) Not Reportable [place] % (Auto) Not Reportable Eos % (Auto) Not Reportable Baso % (Auto) Not Reportable Lymph # (Auto) Not Reportable [place] # (Auto) Not Reportable Eos # (Auto) Not Reportable Baso # (Auto) Not Reportable Abs Immat Gran (auto) Not Reportable Absolute Neuts (auto) Not Reportable Absolute Nucleated RBC Not Reportable Total Counted 100 Neutrophils % (Manual) 87 H Band Neutrophils % 9 H Lymphocytes % (Manual) 3 L Monocytes % (Manual) 1 L Nucleated RBC % Not Reportable Abs Neuts (Manual) 16.41 H Abs Lymphs (Manual) 0.51 L Abs Monocytes (Manual) 0.17 Platelet Estimate Increased Hypochromasia 1+ Anisocytosis 2+ Schistocytes None seen Sodium 138 Potassium 3.4 Chloride 103 Carbon Dioxide 26 Anion Gap 9 BUN 13 Creatinine 0.48 L Estim Creat Clear Calc 99 Estimated GFR > 60 Glucose 70 POC Capillary Glucose 75 Calcium 8.4 Magnesium 1.9 Total Bilirubin 0.5 AST 17 ALT 6 Alkaline Phosphatase 139 H Total Protein 6.3 Albumin 2.5 L Quality VTE Prophylaxis VTE prophylaxis: mechanical ordered
--- NOTE | 2025-03-12 09:28 | PM.PNGS ---
Progress Note: A&P Assessment and Plan (1) Intra-abdominal abscess: Code(s): K65.1 - Peritoneal abscess Status: Acute Assessment and Plan: Patient does not complain of any pain today. Percutaneous abscess drain to be placed today. Continue to monitor output. Monitor for any signs of infection. Blood and urine cultures still pending. Continue IV ceftriaxone and flagyl. Subjective Subjective Date/Time Seen: 03/12/25 09:28 Interval history: Patient stable overnight. Afebrile. WBC this morning 17.1 (up from 14.5). Pain is well controlled with morphine. No nausea or vomiting. Having regular bowel movements. PICC line being placed this morning, as well as percutaneous drain for abscess. Exam GI: Inspection: non-distended GI Palp: Yes Soft to palpation and No Tenderness to palpation present (GI) Auscultation: normal bowel sounds Skin: General skin exam: normal color Other: Possible early sacral decubitus pressure wound present. Difficult to assess d/t patients immobility. Objective Data Vital Signs Vital Signs: Vital Signs - 24 hr 03/11/25 14:00 03/11/25 20:00 03/11/25 20:22 Temperature 97.1 F L 97.7 F Pulse Rate 76 75 Respiratory Rate 20 16 Blood Pressure 135/56 L 114/50 L Pulse Oximetry 97 100 Oxygen Delivery Room Air 03/11/25 22:40 03/12/25 04:39 Temperature 98.1 F Pulse Rate 75 75 Respiratory Rate 18 Blood Pressure 149/68 H Pulse Oximetry 90 Oxygen Delivery Intake/Output Intake/Output: Intake & Output 03/09/25 03/10/25 03/11/25 03/12/25 23:59 23:59 23:59 23:59 Intake Total 150 1820 1696 Output Total 875 800 Balance 150 945 896 Meds/Results Medications: Active Medications Generic Name Dose Route Start Last Admin Trade Name Freq PRN Reason Stop Dose Admin Acetaminophen 325 mg 03/11/25 00:29 Acetaminophen 325 Mg Tablet PO Q6H PRN fever or pain Albuterol 2.5 mg 03/10/25 23:09 Albuterol Sulfate Neb 2.5 Mg/3 Ml Inh INHALATION Q6HRT PRN shortness of breath or wheezing Alprazolam 0.25 mg 03/10/25 23:09 03/12/25 01:31 Alprazolam (*Crx) 0.25 Mg Tablet PO 0.25 mg TID PRN Administration anxiety Dextrose 12.5 gm 03/10/25 23:10 Dextrose 50% 25 Gm/50 Ml Syringe IV PUSH PRN PRN Hypoglycemia Protocol Fluticasone Propionate 1 spray 03/11/25 00:29 Fluticasone Propionate 0.05% Na Spr 16 Gm Btl (*Bkc) NASAL Q12H PRN allergy symptoms Glucagon 1 mg 03/10/25 23:10 Glucagon For Inj 1 Mg Vial IM PRN PRN Hypoglycemia Protocol Glucose 15 gm 03/10/25 23:10 Glucose Oral Gel 15 Gm Of Glucse In 37.5 Gm Tube PO PRN PRN Hypoglycemia Protocol Ceftriaxone Sodium 1 gm in 50 mls @ 100 mls/hr 03/11/25 19:00 03/11/25 18:16 Rocephin 1 Gm/Ns 50 Ml IVPB 100 mls/hr Q24H [facility] Administration Metronidazole 500 mg in 100 mls @ 100 mls/hr 03/11/25 04:00 03/12/25 06:11 Flagyl 500 Mg/Iso Soln 100 Ml IVPB Infused Q8H [facility] Infusion Dextrose 1,000 mls @ 100 mls/hr 03/10/25 23:10 Dextrose 5% 1,000 Ml IVPB PRN PRN Hypoglycemia Protocol Dextrose/Lactated Ringer's 1,000 mls @ 100 mls/hr 03/12/25 05:25 03/12/25 06:44 Dextrose 5%/Lactated Ringers IV CONT 100 mls/hr .Q10H [facility] Administration Insulin Aspart 4 - 8 units 03/11/25 08:00 03/11/25 16:16 Insulin Aspart (*Bkc) 100 Units/Ml SUB-Q Not Given TIDWM [facility] Protocol Insulin Glargine 10 units 03/11/25 21:00 03/11/25 21:39 Insulin Glargine (*Bkc) 100 Units/Ml SUB-Q Not Given HS [facility] Metoprolol Succinate 37.5 mg 03/11/25 09:00 03/11/25 22:40 Metoprolol Succinate Ext Rel 12.5 Mg Tabcr PO 37.5 mg Q12HR [facility] Administration Miconazole Nitrate 1 applic 03/11/25 09:00 03/11/25 16:14 Miconazole Nitrate 2% Cream 30 Gm Tube TOPICAL 1 applic BID [facility] Administration Morphine Sulfate 2 mg 03/11/25 10:29 Morphine Sulfate (*Crx) 2 Mg/Ml Inj IV PUSH Q2H PRN Pain Rated 4-6 Morphine Sulfate 4 mg 03/11/25 10:28 03/12/25 02:36 Morphine Sulfate (*Crx) 4 Mg/Ml Inj IV PUSH 4 mg Q2H PRN Administration Pain Rated 7-10 Pantoprazole Sodium 40 mg 03/11/25 09:00 03/11/25 21:45 Pantoprazole 40 Mg Tablet PO 40 mg Q12HR [facility] Administration Simethicone 80 mg 03/12/25 02:31 Simethicone 80 Mg Tab.Chew PO QID PRN Gas Discomfort Spironolactone 50 mg 03/11/25 09:00 03/11/25 16:12 Spironolactone 25 Mg Tablet PO Not Given BID [facility] Tamsulosin HCl 0.4 mg 03/11/25 09:00 03/11/25 08:17 Tamsulosin Hcl 0.4 Mg Capsule PO Not Given QAM [facility] Radiology Results: ITS Impressions Chest X-Ray 03/12/25 09:24 Impression: 1: Extensive stable bilateral airspace disease which may represent edema or pneumonia. 2: Bilateral pleural effusions without change. Labs Labs: Laboratory Results - last 24 hr 03/11/25 03/11/25 03/11/25 11:54 18:04 21:29 WBC RBC Hgb Hct MCV MCH MCHC RDW Plt Count MPV Immature Gran % (Auto) Neut % (Auto) Lymph % (Auto) [place] % (Auto) Eos % (Auto) Baso % (Auto) Lymph # (Auto) [place] # (Auto) Eos # (Auto) Baso # (Auto) Abs Immat Gran (auto) Absolute Neuts (auto) Absolute Nucleated RBC Total Counted Neutrophils % (Manual) Band Neutrophils % Lymphocytes % (Manual) Monocytes % (Manual) Nucleated RBC % Abs Neuts (Manual) Abs Lymphs (Manual) Abs Monocytes (Manual) Platelet Estimate Hypochromasia Anisocytosis Schistocytes Sodium Potassium Chloride Carbon Dioxide Anion Gap BUN Creatinine Estim Creat Clear Calc Estimated GFR Glucose POC Capillary Glucose 78 118 H 95 Calcium Magnesium Total Bilirubin AST ALT Alkaline Phosphatase Total Protein Albumin 03/12/25 03/12/25 05:19 05:30 WBC 17.1 H RBC 3.47 L Hgb 9.6 L Hct 31.3 L MCV 90.2 MCH 27.7 MCHC 30.7 L RDW 23.0 H Plt Count 401 H MPV 9.4 Immature Gran % (Auto) Not Reportable Neut % (Auto) Not Reportable Lymph % (Auto) Not Reportable [place] % (Auto) Not Reportable Eos % (Auto) Not Reportable Baso % (Auto) Not Reportable Lymph # (Auto) Not Reportable [place] # (Auto) Not Reportable Eos # (Auto) Not Reportable Baso # (Auto) Not Reportable Abs Immat Gran (auto) Not Reportable Absolute Neuts (auto) Not Reportable Absolute Nucleated RBC Not Reportable Total Counted 100 Neutrophils % (Manual) 87 H Band Neutrophils % 9 H Lymphocytes % (Manual) 3 L Monocytes % (Manual) 1 L Nucleated RBC % Not Reportable Abs Neuts (Manual) 16.41 H Abs Lymphs (Manual) 0.51 L Abs Monocytes (Manual) 0.17 Platelet Estimate Increased Hypochromasia 1+ Anisocytosis 2+ Schistocytes None seen Sodium 138 Potassium 3.4 Chloride 103 Carbon Dioxide 26 Anion Gap 9 BUN 13 Creatinine 0.48 L Estim Creat Clear Calc 99 Estimated GFR > 60 Glucose 70 POC Capillary Glucose 75 Calcium 8.4 Magnesium 1.9 Total Bilirubin 0.5 AST 17 ALT 6 Alkaline Phosphatase 139 H Total Protein 6.3 Albumin 2.5 L
[2025-03-12 12:08] LABS: Glucose Point of Care 93 mg/dl (65-105)
[2025-03-12] MEDS: CENTRAL LINE FLUSH 10 ML IV PUSH ×2 (14:54→22:10)
[2025-03-12] MEDS: MICONAZOLE NITRATE 2% CREAM 30 GM TUBE 1 APPLIC TOPICAL ×2 (14:59→18:03)
[2025-03-12] MEDS: SPIRONOLACTONE 25 MG TABLET 50 MG PO (18:04)
[2025-03-12] MEDS: SIMETHICONE 80 MG TAB.CHEW PO (18:04)
[2025-03-12] MEDS: METOPROLOL SUCCINATE EXT REL 12.5 MG TABCR 37.5 MG PO (21:52)
[2025-03-12] MEDS: PANTOPRAZOLE 40 MG TABLET PO (21:53)
[2025-03-13] VITALS (8 sets, daily range): BP systolic 138–145; BP diastolic 67–76; PULSE 67–76; RESP 16–18; TEMP 36.4–37; O2SAT 93–100
[2025-03-13 00:04] LABS: Glucose Point of Care 164 mg/dl (65-105)
[2025-03-13] MEDS: SIMETHICONE 80 MG TAB.CHEW PO ×3 (01:52→16:57)
[2025-03-13] MEDS: ACETAMINOPHEN 325 MG TABLET 650 MG PO ×3 (02:04→16:57)
[2025-03-13] MEDS: CENTRAL LINE FLUSH 10 ML IV PUSH ×3 (04:33→20:47)
[2025-03-13] MEDS: metroNIDAZOLE 500 MG/ISO 100ML 500 MG/100 ML BAG 100 MG IVPB ×3 (04:33→20:33)
[2025-03-13 04:50] LABS: Basophils Absolute Auto 0.1 K/mm3 (0.0-0.1); Basophils Percent Auto 0.4 % (0.2-1.2); Eosinophils Absolute Auto 0.1 K/mm3 (0-0.3); Eosinophils Percent Auto 0.7 % (0-4.4); Hematocrit 29.3 % (37.0-47.0); Hemoglobin 8.9 g/dL (12.0-15.0); Immature Granulocyte Absolute 0.36 K/mm3 (0.00-0.031); Immature Granulocyte Percent A 2.3 % (0-0.5); Lymphocytes Absolute Auto 0.61 K/mm3 (0.9-3.2); Lymphocytes Percent Auto 3.9 % (18.3-44.2); Mean Corpuscular HGB Conc 30.4 g/dl (32-36); Mean Corpuscular Hemoglobin 27.6 pg (26-34); Mean Platelet Volume 9.2 fl (7.4-10.4); Monocytes Absolute Auto 0.9 K/mm3 (0.1-0.6); Monocytes Percent Auto 5.4 % (2.6-8.5); Neutrophils Absolute Auto 13.8 K/mm3 (1.3-6.7); Neutrophils Percent Auto 87.3 % (45.5-73.1); Platelet Count Result 374 k/mm3 (150-375); Red Blood Count 3.22 M/mm3 (4.2-5.4); Red Cell Distribution Width 22.6 % (11.5-14.5); White Blood Count 15.8 K/mm3 (4.5-10.0)
[2025-03-13 05:18] LABS: Alanine Aminotransferase 6 U/L (6-35); Albumin Level 2.2 g/dL (3.5-5.1); Alkaline Phosphatase 106 U/L (38-126); Anion Gap 5 mmol/L (4-12); Aspartate Amino Transferase 16 U/L (14-36); Bilirubin,Total 0.4 mg/dL (0.2-1.3); Blood Urea Nitrogen 11 mg/dL (7-17); Calcium 8.2 mg/dL (8.4-10.2); Carbon Dioxide 30 mmol/L (22-30); Chloride 104 mmol/L (98-107); Estimated CRCL calculation 101 ml/min; Estimated Glomerular Filt Rate > 60; Glucose 132 mg/dL (65-110); Magnesium 1.8 mg/dL (1.6-2.3); Potassium 3.1 mmol/L (3.4-5.0); Sodium 139 mmol/L (137-145); Total Protein 5.7 g/dL (6.3-8.2)
[2025-03-13 05:29] LABS: Anisocytosis 1+; Hypochromasia 1+; Platelet Estimate Adequate (Adequate); Schistocytes None Seen
[2025-03-13 06:09] LABS: Glucose Point of Care 133 mg/dl (65-105)
[2025-03-13] MEDS: METOPROLOL SUCCINATE EXT REL 12.5 MG TABCR 37.5 MG PO ×2 (08:47→20:34)
[2025-03-13] MEDS: TAMSULOSIN HCL 0.4 MG CAPSULE PO (08:47)
[2025-03-13] MEDS: SPIRONOLACTONE 25 MG TABLET 50 MG PO ×2 (08:47→16:57)
[2025-03-13] MEDS: ALPRAZolam (*CRX) 0.25 MG TABLET PO ×3 (08:47→16:57)
[2025-03-13] MEDS: PANTOPRAZOLE 40 MG TABLET PO ×2 (08:47→20:34)
[2025-03-13] MEDS: MICONAZOLE NITRATE 2% CREAM 30 GM TUBE 1 APPLIC TOPICAL ×2 (08:56→17:38)
[2025-03-13] MEDS: SODIUM CHLORIDE 0.9% IV 1,000 ML 100 ML IV CONT (08:56)
--- NOTE | 2025-03-13 11:17 | P.PNGS_ITS ---
Progress Note: A&P Assessment and Plan (1) Intra-abdominal abscess: Code(s): K65.1 - Peritoneal abscess Status: Acute Assessment and Plan: status post drainage, exam largely benign, continue drain and antibiotics, encourage p.o. intake and out of bed Subjective Subjective Date/Time Seen: 03/13/25 11:17 Interval history: feels better, complaining of weakness, pain largely resolved Review of Systems Review of Systems: All systems reviewed & are unremarkable except as noted in HPI and below Exam Const: General: cooperative, comfortable, no acute distress and ill appearing Resp: Auscultation: clear to auscultation bilaterally Cardio: Rate: regular rate Rhythm: regular rhythm GI: Inspection: normal to inspection and non-distended GI Palp: Yes abdominal tenderness and Yes Soft to palpation Other: drain with minimal purulent output Objective Data Vital Signs Vital Signs: Vital Signs - 24 hr 03/12/25 14:00 03/12/25 14:52 03/12/25 20:00 Temperature 36.6 C Pulse Rate 68 73 Respiratory Rate 22 H 18 Blood Pressure 141/73 H 129/62 Pulse Oximetry 88 L 97 98 Oxygen Delivery Nasal Cannula Oxygen Flow Rate 2 03/12/25 21:52 03/12/25 22:00 03/13/25 05:59 Temperature 36.7 C 36.4 C Pulse Rate 73 73 67 Respiratory Rate 18 18 Blood Pressure 129/62 142/68 H Pulse Oximetry 98 100 Oxygen Delivery Oxygen Flow Rate 03/13/25 08:47 Temperature Pulse Rate 67 Respiratory Rate Blood Pressure Pulse Oximetry Oxygen Delivery Oxygen Flow Rate Intake/Output Intake/Output: Intake & Output 03/10/25 03/11/25 03/12/25 03/13/25 23:59 23:59 23:59 23:59 Intake Total 150 1870 3669 1120 Output Total 875 1125 400 Balance 449 705 7167 720 Meds/Results Medications: Active Medications Generic Name Dose Route Start Last Admin Trade Name Freq PRN Reason Stop Dose Admin Acetaminophen 650 mg 03/13/25 02:01 03/13/25 08:49 Acetaminophen 325 Mg Tablet PO 650 mg Q6H PRN Administration fever or pain Albuterol 2.5 mg 03/10/25 23:09 Albuterol Sulfate Neb 2.5 Mg/3 Ml Inh INHALATION Q6HRT PRN shortness of breath or wheezing Alprazolam 0.25 mg 03/10/25 23:09 03/13/25 08:47 Alprazolam (*Crx) 0.25 Mg Tablet PO 0.25 mg TID PRN Administration anxiety Dextrose 12.5 gm 03/10/25 23:10 Dextrose 50% 25 Gm/50 Ml Syringe IV PUSH PRN PRN Hypoglycemia Protocol Fluticasone Propionate 1 spray 03/11/25 00:29 Fluticasone Propionate 0.05% Na Spr 16 Gm Btl (*Bkc) NASAL Q12H PRN allergy symptoms Glucagon 1 mg 03/10/25 23:10 Glucagon For Inj 1 Mg Vial IM PRN PRN Hypoglycemia Protocol Glucose 15 gm 03/10/25 23:10 Glucose Oral Gel 15 Gm Of Glucse In 37.5 Gm Tube PO PRN PRN Hypoglycemia Protocol Ceftriaxone Sodium 1 gm in 50 mls @ 100 mls/hr 03/11/25 19:00 03/12/25 18:04 Rocephin 1 Gm/Ns 50 Ml IVPB 100 mls/hr Q24H [facility] Administration Metronidazole 500 mg in 100 mls @ 100 mls/hr 03/11/25 04:00 03/13/25 04:33 Flagyl 500 Mg/Iso Soln 100 Ml IVPB 100 mls/hr Q8H [facility] Administration Dextrose 1,000 mls @ 100 mls/hr 03/10/25 23:10 Dextrose 5% 1,000 Ml IVPB PRN PRN Hypoglycemia Protocol Sodium Chloride 1,000 mls @ 100 mls/hr 03/12/25 21:40 03/13/25 08:56 Normal Saline Iv IV CONT 100 mls/hr .Q10H [facility] Administration Insulin Aspart 4 - 8 units 03/11/25 08:00 03/13/25 08:57 Insulin Aspart (*Bkc) 100 Units/Ml SUB-Q Not Given TIDWM [facility] Protocol Insulin Glargine 10 units 03/11/25 21:00 03/12/25 22:04 Insulin Glargine (*Bkc) 100 Units/Ml SUB-Q Not Given HS [facility] Metoprolol Succinate 37.5 mg 03/11/25 09:00 03/13/25 08:47 Metoprolol Succinate Ext Rel 12.5 Mg Tabcr PO 37.5 mg Q12HR [facility] Administration Miconazole Nitrate 1 applic 03/11/25 09:00 03/13/25 08:56 Miconazole Nitrate 2% Cream 30 Gm Tube TOPICAL 1 applic BID [facility] Administration Morphine Sulfate 2 mg 03/11/25 10:29 Morphine Sulfate (*Crx) 2 Mg/Ml Inj IV PUSH Q2H PRN Pain Rated 4-6 Morphine Sulfate 4 mg 03/11/25 10:28 03/12/25 14:49 Morphine Sulfate (*Crx) 4 Mg/Ml Inj IV PUSH 4 mg Q2H PRN Administration Pain Rated 7-10 Pantoprazole Sodium 40 mg 03/11/25 09:00 03/13/25 08:47 Pantoprazole 40 Mg Tablet PO 40 mg Q12HR [facility] Administration Simethicone 80 mg 03/12/25 02:31 03/13/25 08:49 Simethicone 80 Mg Tab.Chew PO 80 mg QID PRN Administration Gas Discomfort Sodium Chloride 10 ml 03/12/25 14:00 03/13/25 04:33 Central Line Flush IV PUSH 10 ml Q8HR [facility] Administration Sodium Chloride 10 ml 03/12/25 09:29 Central Line Flush IV PUSH PRN PRN with TPN bag changes Sodium Chloride 20 ml 03/12/25 09:29 Central Line Flush IV PUSH PRN PRN after blood draws Spironolactone 50 mg 03/11/25 09:00 03/13/25 08:47 Spironolactone 25 Mg Tablet PO 50 mg BID [facility] Administration Tamsulosin HCl 0.4 mg 03/11/25 09:00 03/13/25 08:47 Tamsulosin Hcl 0.4 Mg Capsule PO 0.4 mg QAM [facility] Administration Radiology Results: ITS Impressions Chest X-Ray 03/12/25 09:24 Impression: 1: Extensive stable bilateral airspace disease which may represent edema or pneumonia. 2: Bilateral pleural effusions without change. Catheter Placement CT 03/12/25 15:47 IMPRESSION: 1. Successful CT-guided abscess drainage. 2. 20 mL fluid was sent for aerobic and anaerobic cultures. 3. The catheter will be managed by Dr. Goins. Labs Labs: Laboratory Results - last 24 hr 03/12/25 03/12/25 03/13/25 11:58 21:31 04:42 WBC 15.8 H RBC 3.22 L Hgb 8.9 L Hct 29.3 L MCV 91.0 MCH 27.6 MCHC 30.4 L RDW 22.6 H Plt Count 374 MPV 9.2 Immature Gran % (Auto) 2.3 H Neut % (Auto) 87.3 H Lymph % (Auto) 3.9 L [place] % (Auto) 5.4 Eos % (Auto) 0.7 Baso % (Auto) 0.4 Lymph # (Auto) 0.61 L [place] # (Auto) 0.9 H Eos # (Auto) 0.1 Baso # (Auto) 0.1 Abs Immat Gran (auto) 0.36 H Absolute Neuts (auto) 13.8 H Absolute Nucleated RBC 0.000 Band Neutrophils % Not Reportable Nucleated RBC % 0.0 Platelet Estimate Adequate Hypochromasia 1+ Anisocytosis 1+ Schistocytes None seen Sodium 139 Potassium 3.1 L Chloride 104 Carbon Dioxide 30 Anion Gap 5 BUN 11 Creatinine 0.47 L Estim Creat Clear Calc 101 Estimated GFR > 60 Glucose 132 H POC Capillary Glucose 93 164 H Calcium 8.2 L Magnesium 1.8 Total Bilirubin 0.4 AST 16 ALT 6 Alkaline Phosphatase 106 Total Protein 5.7 L Albumin 2.2 L 03/13/25 05:58 WBC RBC Hgb Hct MCV MCH MCHC RDW Plt Count MPV Immature Gran % (Auto) Neut % (Auto) Lymph % (Auto) [place] % (Auto) Eos % (Auto) Baso % (Auto) Lymph # (Auto) [place] # (Auto) Eos # (Auto) Baso # (Auto) Abs Immat Gran (auto) Absolute Neuts (auto) Absolute Nucleated RBC Band Neutrophils % Nucleated RBC % Platelet Estimate Hypochromasia Anisocytosis Schistocytes Sodium Potassium Chloride Carbon Dioxide Anion Gap BUN Creatinine Estim Creat Clear Calc Estimated GFR Glucose POC Capillary Glucose 133 H Calcium Magnesium Total Bilirubin AST ALT Alkaline Phosphatase Total Protein Albumin
[2025-03-13 11:53] LABS: Glucose Point of Care 135 mg/dl (65-105)
[2025-03-13] MEDS: MORPHINE SULFATE (*CRX) 4 MG/ML INJ IV PUSH ×2 (12:48→20:33)
--- NOTE | 2025-03-13 15:01 | P.PNIM_ITS ---
Progress Note: A&P Assessment and Plan (1) Intra-abdominal abscess: Code(s): K65.1 - Peritoneal abscess Status: Acute Assessment and Plan: -Prior intraabdominal abscess s/p drain placement with complications related to diverticulitis was known -Repeat CT due to Left flank pain showed worsening of abscess and concern for bowel perforation due to extraluminal gas on CT -ER started Rocephin and Flagyl -General surgery consulted 03/12 - schedule for drain placement today with radiology continue ceftriaxone 1gm q24h, flagyl 500 mg q8h - drain is placed 03/12 pain is better (2) Type 2 diabetes mellitus with hyperglycemia: Code(s): E11.65 - Type 2 diabetes mellitus with hyperglycemia Status: Acute Assessment and Plan: -Resume Lantus on 03/11/25 -ACHS fingerstick glucose with SSI high dose -A1c 9.6 on 01/26/25, probably improved since then since in the hospital/acute rehab the whole time (3) Hypokalemia: Code(s): E87.6 - Hypokalemia Status: Acute Assessment and Plan: -replace and monitor 3.4 today monitor for now 3.1 today- will replace and monitor (4) Paroxysmal atrial fibrillation with RVR: Code(s): I48.0 - Paroxysmal atrial fibrillation Status: Acute Assessment and Plan: - Anticoagulation not recommended at this time due to likely need for surgical intervention -Monitor Vital Signs Q4H and PRN (5) UTI (urinary tract infection): Qualifiers: Urinary tract infection type: acute cystitis Hematuria presence: without hematuria Qualified Code(s): N30.00 - Acute cystitis without hematuria Code(s): N39.0 - Urinary tract infection, site not specified Status: Ruled-out Assessment and Plan: -Chronic indwelling Espinoza catheter -UA appears potentially infected -Urine culture ordered -Blood cultures obtained (6) Critical illness myopathy: Code(s): G72.81 - Critical illness myopathy Status: Acute Assessment and Plan: -Patient generally weak s/p prolonged, complicated hospitalization -Not making much progress at acute rehab (7) Hx of cardiac arrest: Code(s): Z86.74 - Personal history of sudden cardiac arrest Status: Acute Assessment and Plan: -Prior hospitalization complicated by cardiac arrest during procedure to place drain into intraabdominal abscess -Led to prolonged stay and significant weakness (8) Sacral decubitus ulcer: Code(s): L89.159 - Pressure ulcer of sacral region, unspecified stage Status: Acute Assessment and Plan: -Wound care consulted for apparent sacral pressure ulcers Time Spent With Patient Time with patient: 25 - 35 minutes Subjective Date/time seen: 03/13/25 15:01 Interval history: Bharti Neal is a 74 year old female patient admitted to the hospital for findings of increased presacral intraabdominal abscess with concern for bowel perforation. She has a complex past medical history of diverticulitis, DM, HTN, cardiac arrest, septic shock, respiratory failure, abdominal abscess, anemia, hypernatremia, A-fib, hypokalemia, bilateral nephrolithiasis, hematuria, and CHF with recent prolonged admission to this facility. Patient was at [facility] and complained of left flank pain. She reported chills but no fever. No nausea/vomiting or other abdominal pain. Repeat CT scan was obtained which showed significant worsening of known intraab dominal abscess, now with air interspersed concerning for rupture of bowel. Patient admitted on IV antibiotics, NPO and surgical eval. /- pt is seen and examined. Plan is to have drain placed today per radiology. / doing well. pain is better. drain in place. Resting with eyes closed. Review of Systems Review of Systems: CONSTITUTIONAL: Denies fever GASTROINTESTINAL: Denies abdominal pain, nausea, vomiting All systems reviewed & are unremarkable except as noted in HPI and below Exam Narrative: GENERAL: Chronically ill-appearing, well-nourished, and in no acute distress. HEAD: Normocephalic, atraumatic. EYES: EOMI. ENT: Nares clear, no rhinorrhea or epistaxis. Mucous membranes dry. NECK: Supple. No adenopathy or masses. CHEST: Clear to auscultation. No respiratory distress. No wheezes rales or rhonchi HEART: Regular rate and rhythm. Normal peripheral pulses. ABDOMEN: Soft, nontender, nondistended, normal bowel sounds. Chronic Espinoza catheter in place with dark yellow/orange urine noted. EXTREMITIES: Normal range of motion with global generalized weakness, no focal deficits. No edema. SKIN: Warm, dry, no rash. Sacral pressure ulcer noted, not open NEURO: No focal deficits. Alert and oriented x3. PSYCH: Normal mood and affect Objective Data Vital Signs Vital Signs: Vital Signs - 24 hr 03/12/25 20:00 03/12/25 21:52 03/12/25 22:00 Temperature 98.1 F Pulse Rate 73 73 Respiratory Rate 18 Blood Pressure 129/62 Pulse Oximetry 98 98 Oxygen Delivery Nasal Cannula Oxygen Flow Rate 2 03/13/25 05:59 03/13/25 07:45 03/13/25 08:47 Temperature 97.6 F Pulse Rate 67 67 Respiratory Rate 18 Blood Pressure 142/68 H Pulse Oximetry 100 94 Oxygen Delivery Room Air Oxygen Flow Rate 03/13/25 14:00 Temperature Pulse Rate 69 Respiratory Rate 18 Blood Pressure 138/67 Pulse Oximetry 94 Oxygen Delivery Oxygen Flow Rate Intake/Output Intake/Output: Intake & Output 03/10/25 03/11/25 03/12/25 03/13/25 23:59 23:59 23:59 23:59 Intake Total 150 1870 3669 1220 Output Total 875 1125 400 Balance 284 425 5142 820 Meds/Results Medications: Active Medications Generic Name Dose Route Start Last Admin Trade Name Freq PRN Reason Stop Dose Admin Acetaminophen 650 mg 03/13/25 02:01 03/13/25 08:49 Acetaminophen 325 Mg Tablet PO 650 mg Q6H PRN Administration fever or pain Albuterol 2.5 mg 03/10/25 23:09 Albuterol Sulfate Neb 2.5 Mg/3 Ml Inh INHALATION Q6HRT PRN shortness of breath or wheezing Alprazolam 0.25 mg 03/10/25 23:09 03/13/25 12:48 Alprazolam (*Crx) 0.25 Mg Tablet PO 0.25 mg TID PRN Administration anxiety Dextrose 12.5 gm 03/10/25 23:10 Dextrose 50% 25 Gm/50 Ml Syringe IV PUSH PRN PRN Hypoglycemia Protocol Fluticasone Propionate 1 spray 03/11/25 00:29 Fluticasone Propionate 0.05% Na Spr 16 Gm Btl (*Bkc) NASAL Q12H PRN allergy symptoms Glucagon 1 mg 03/10/25 23:10 Glucagon For Inj 1 Mg Vial IM PRN PRN Hypoglycemia Protocol Glucose 15 gm 03/10/25 23:10 Glucose Oral Gel 15 Gm Of Glucse In 37.5 Gm Tube PO PRN PRN Hypoglycemia Protocol Ceftriaxone Sodium 1 gm in 50 mls @ 100 mls/hr 03/11/25 19:00 03/12/25 18:04 Rocephin 1 Gm/Ns 50 Ml IVPB 100 mls/hr Q24H KANDIS Administration Metronidazole 500 mg in 100 mls @ 100 mls/hr 03/11/25 04:00 03/13/25 11:42 Flagyl 500 Mg/Iso Soln 100 Ml IVPB 100 mls/hr Q8H KANDIS Administration Dextrose 1,000 mls @ 100 mls/hr 03/10/25 23:10 Dextrose 5% 1,000 Ml IVPB PRN PRN Hypoglycemia Protocol Sodium Chloride 1,000 mls @ 100 mls/hr 03/12/25 21:40 03/13/25 08:56 Normal Saline Iv IV CONT 100 mls/hr .Q10H KANDIS Administration Insulin Aspart 4 - 8 units 03/11/25 08:00 03/13/25 12:06 Insulin Aspart (*Bkc) 100 Units/Ml SUB-Q Not Given TIDWM [facility] Protocol Insulin Glargine 10 units 03/11/25 21:00 03/12/25 22:04 Insulin Glargine (*Bkc) 100 Units/Ml SUB-Q Not Given HS [facility] Metoprolol Succinate 37.5 mg 03/11/25 09:00 03/13/25 08:47 Metoprolol Succinate Ext Rel 12.5 Mg Tabcr PO 37.5 mg Q12HR [facility] Administration Miconazole Nitrate 1 applic 03/11/25 09:00 03/13/25 08:56 Miconazole Nitrate 2% Cream 30 Gm Tube TOPICAL 1 applic BID [facility] Administration Morphine Sulfate 2 mg 03/11/25 10:29 Morphine Sulfate (*Crx) 2 Mg/Ml Inj IV PUSH Q2H PRN Pain Rated 4-6 Morphine Sulfate 4 mg 03/11/25 10:28 03/13/25 12:48 Morphine Sulfate (*Crx) 4 Mg/Ml Inj IV PUSH 4 mg Q2H PRN Administration Pain Rated 7-10 Pantoprazole Sodium 40 mg 03/11/25 09:00 03/13/25 08:47 Pantoprazole 40 Mg Tablet PO 40 mg Q12HR [facility] Administration Simethicone 80 mg 03/12/25 02:31 03/13/25 08:49 Simethicone 80 Mg Tab.Chew PO 80 mg QID PRN Administration Gas Discomfort Sodium Chloride 10 ml 03/12/25 14:00 03/13/25 12:52 Central Line Flush IV PUSH 10 ml Q8HR KANDIS Administration Sodium Chloride 10 ml 03/12/25 09:29 Central Line Flush IV PUSH PRN PRN with TPN bag changes Sodium Chloride 20 ml 03/12/25 09:29 Central Line Flush IV PUSH PRN PRN after blood draws Spironolactone 50 mg 03/11/25 09:00 03/13/25 08:47 Spironolactone 25 Mg Tablet PO 50 mg BID KANDIS Administration Tamsulosin HCl 0.4 mg 03/11/25 09:00 03/13/25 08:47 Tamsulosin Hcl 0.4 Mg Capsule PO 0.4 mg QAM KANDIS Administration Radiology Results: ITS Impressions Chest X-Ray 03/12/25 09:24 Impression: 1: Extensive stable bilateral airspace disease which may represent edema or pneumonia. 2: Bilateral pleural effusions without change. Catheter Placement CT 03/12/25 15:47 IMPRESSION: 1. Successful CT-guided abscess drainage. 2. 20 mL fluid was sent for aerobic and anaerobic cultures. 3. The catheter will be managed by Dr. Goins. Labs Labs: Laboratory Results - last 24 hr 03/12/25 03/13/25 03/13/25 21:31 04:42 05:58 WBC 15.8 H RBC 3.22 L Hgb 8.9 L Hct 29.3 L MCV 91.0 MCH 27.6 MCHC 30.4 L RDW 22.6 H Plt Count 374 MPV 9.2 Immature Gran % (Auto) 2.3 H Neut % (Auto) 87.3 H Lymph % (Auto) 3.9 L [place] % (Auto) 5.4 Eos % (Auto) 0.7 Baso % (Auto) 0.4 Lymph # (Auto) 0.61 L [place] # (Auto) 0.9 H Eos # (Auto) 0.1 Baso # (Auto) 0.1 Abs Immat Gran (auto) 0.36 H Absolute Neuts (auto) 13.8 H Absolute Nucleated RBC 0.000 Band Neutrophils % Not Reportable Nucleated RBC % 0.0 Platelet Estimate Adequate Hypochromasia 1+ Anisocytosis 1+ Schistocytes None seen Sodium 139 Potassium 3.1 L Chloride 104 Carbon Dioxide 30 Anion Gap 5 BUN 11 Creatinine 0.47 L Estim Creat Clear Calc 101 Estimated GFR > 60 Glucose 132 H POC Capillary Glucose 164 H 133 H Calcium 8.2 L Magnesium 1.8 Total Bilirubin 0.4 AST 16 ALT 6 Alkaline Phosphatase 106 Total Protein 5.7 L Albumin 2.2 L 03/13/25 11:50 WBC RBC Hgb Hct MCV MCH MCHC RDW Plt Count MPV Immature Gran % (Auto) Neut % (Auto) Lymph % (Auto) [place] % (Auto) Eos % (Auto) Baso % (Auto) Lymph # (Auto) [place] # (Auto) Eos # (Auto) Baso # (Auto) Abs Immat Gran (auto) Absolute Neuts (auto) Absolute Nucleated RBC Band Neutrophils % Nucleated RBC % Platelet Estimate Hypochromasia Anisocytosis Schistocytes Sodium Potassium Chloride Carbon Dioxide Anion Gap BUN Creatinine Estim Creat Clear Calc Estimated GFR Glucose POC Capillary Glucose 135 H Calcium Magnesium Total Bilirubin AST ALT Alkaline Phosphatase Total Protein Albumin Quality VTE Prophylaxis VTE prophylaxis: mechanical ordered
[2025-03-13] MEDS: KCL 20 MEQ/SW 100 ML 100 ML 50 MEQ IVPB (15:18)
[2025-03-13 18:17] LABS: Glucose Point of Care 115 mg/dl (65-105)
[2025-03-13] MEDS: INSULIN GLARGINE (*BKC) 100 UNITS/ML 10 UNITS SUB-Q (20:34)
[2025-03-14] VITALS (7 sets, daily range): BP systolic 114–141; BP diastolic 58–74; PULSE 70–86; RESP 16–20; TEMP 36.3–36.9; O2SAT 94–96
[2025-03-14 00:31] LABS: Glucose Point of Care 115 mg/dl (65-105)
[2025-03-14] MEDS: MORPHINE SULFATE (*CRX) 4 MG/ML INJ IV PUSH ×4 (01:19→20:31)
[2025-03-14] MEDS: SODIUM CHLORIDE 0.9% IV 1,000 ML 100 ML IV CONT ×2 (01:19→12:22)
[2025-03-14] MEDS: SIMETHICONE 80 MG TAB.CHEW PO ×2 (01:20→20:31)
[2025-03-14] MEDS: ALPRAZolam (*CRX) 0.25 MG TABLET PO ×2 (01:20→20:31)
[2025-03-14] MEDS: CENTRAL LINE FLUSH 20 ML IV PUSH (04:05)
[2025-03-14] MEDS: CENTRAL LINE FLUSH 10 ML IV PUSH ×3 (04:05→20:32)
[2025-03-14] MEDS: metroNIDAZOLE 500 MG/ISO 100ML 500 MG/100 ML BAG 100 MG IVPB ×3 (04:05→20:32)
[2025-03-14 04:25] LABS: Basophils Absolute Auto 0.1 K/mm3 (0.0-0.1); Basophils Percent Auto 0.3 % (0.2-1.2); Eosinophils Absolute Auto 0.1 K/mm3 (0-0.3); Eosinophils Percent Auto 0.3 % (0-4.4); Hematocrit 29.9 % (37.0-47.0); Immature Granulocyte Absolute 0.38 K/mm3 (0.00-0.031); Immature Granulocyte Percent A 1.9 % (0-0.5); Lymphocytes Absolute Auto 0.56 K/mm3 (0.9-3.2); Lymphocytes Percent Auto 2.8 % (18.3-44.2); Mean Corpuscular HGB Conc 30.1 g/dl (32-36); Mean Corpuscular Hemoglobin 27.4 pg (26-34); Mean Corpuscular Volume 91.2 fl (80-100); Mean Platelet Volume 9.2 fl (7.4-10.4); Monocytes Percent Auto 4.8 % (2.6-8.5); Neutrophils Absolute Auto 18.3 K/mm3 (1.3-6.7); Neutrophils Percent Auto 89.9 % (45.5-73.1); Platelet Count Result 439 k/mm3 (150-375); Red Blood Count 3.28 M/mm3 (4.2-5.4); Red Cell Distribution Width 22.7 % (11.5-14.5); White Blood Count 20.3 K/mm3 (4.5-10.0)
[2025-03-14 04:53] LABS: Platelet Estimate Increased (Adequate); Smudge Cells PRESENT
[2025-03-14 04:55] LABS: Anisocytosis 1+; Hypochromasia 1+; Microcytosis 1+ (NORMAL); Schistocytes None Seen
[2025-03-14 05:03] LABS: Alanine Aminotransferase 8 U/L (6-35); Albumin Level 2.1 g/dL (3.5-5.1); Alkaline Phosphatase 103 U/L (38-126); Anion Gap 5 mmol/L (4-12); Aspartate Amino Transferase 14 U/L (14-36); Bilirubin,Total 0.3 mg/dL (0.2-1.3); Blood Urea Nitrogen 10 mg/dL (7-17); Calcium 7.8 mg/dL (8.4-10.2); Carbon Dioxide 28 mmol/L (22-30); Chloride 107 mmol/L (98-107); Estimated CRCL calculation 116 ml/min; Estimated Glomerular Filt Rate > 60; Glucose 104 mg/dL (65-110); Magnesium 1.7 mg/dL (1.6-2.3); Sodium 140 mmol/L (137-145); Total Protein 5.5 g/dL (6.3-8.2)
[2025-03-14 06:52] LABS: Glucose Point of Care 90 mg/dl (65-105)
[2025-03-14] MEDS: METOPROLOL SUCCINATE EXT REL 12.5 MG TABCR 37.5 MG PO ×2 (08:28→20:31)
[2025-03-14] MEDS: TAMSULOSIN HCL 0.4 MG CAPSULE PO (08:28)
[2025-03-14] MEDS: PANTOPRAZOLE 40 MG TABLET PO ×2 (08:29→20:31)
[2025-03-14] MEDS: SPIRONOLACTONE 25 MG TABLET 50 MG PO ×2 (08:29→16:22)
[2025-03-14] MEDS: MICONAZOLE NITRATE 2% CREAM 30 GM TUBE 1 APPLIC TOPICAL ×2 (08:30→16:20)
--- NOTE | 2025-03-14 08:41 | PCOTNOTE ---
Attempted OT evaluation; Pt. states she is not feeling well and just got comfortable. She just wants to rest for right now. Will continue to follow and attempt again as able.
--- NOTE | 2025-03-14 08:48 | PM.IMPN ---
Progress Note: A&P Assessment and Plan (1) Intra-abdominal abscess: Code(s): K65.1 - Peritoneal abscess Status: Acute Assessment and Plan: -Prior intraabdominal abscess s/p drain placement with complications related to diverticulitis was known -Repeat CT due to Left flank pain showed worsening of abscess and concern for bowel perforation due to extraluminal gas on CT -ER started Rocephin and Flagyl -General surgery consulted 03/12 - schedule for drain placement today with radiology continue ceftriaxone 1gm q24h, flagyl 500 mg q8h - drain is placed 03/12 pain is better -03/14 wbc increased-20.3 today on ceftriaxone -will continue for now (2) Type 2 diabetes mellitus with hyperglycemia: Code(s): E11.65 - Type 2 diabetes mellitus with hyperglycemia Status: Acute Assessment and Plan: -Resume Lantus on 03/11/25 -ACHS fingerstick glucose with SSI high dose -A1c 9.6 on 01/26/25, probably improved since then since in the hospital/acute rehab the whole time (3) Hypokalemia: Code(s): E87.6 - Hypokalemia Status: Acute Assessment and Plan: -replace and monitor 3.4 today monitor for now 3.1 today- will replace and monitor (4) Paroxysmal atrial fibrillation with RVR: Code(s): I48.0 - Paroxysmal atrial fibrillation Status: Acute Assessment and Plan: - Anticoagulation not recommended at this time due to likely need for surgical intervention -Monitor Vital Signs Q4H and PRN (5) UTI (urinary tract infection): Qualifiers: Hematuria presence: without hematuria Urinary tract infection type: acute cystitis Qualified Code(s): N30.00 - Acute cystitis without hematuria Code(s): N39.0 - Urinary tract infection, site not specified Status: Ruled-out Assessment and Plan: -Chronic indwelling Espinoza catheter -UA appears potentially infected -Urine culture ordered -Blood cultures obtained (6) Critical illness myopathy: Code(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 - Critical illness myopathy Status: Acute Assessment and Plan: -Patient generally weak s/p prolonged, complicated hospitalization -Not making much progress at acute rehab (7) Hx of cardiac arrest: Code(s): Z86.74 - Personal history of sudden cardiac arrest Status: Acute Assessment and Plan: -Prior hospitalization complicated by cardiac arrest during procedure to place drain into intraabdominal abscess -Led to prolonged stay and significant weakness (8) Sacral decubitus ulcer: Code(s): L89.159 - Pressure ulcer of sacral region, unspecified stage Status: Acute Assessment and Plan: -Wound care consulted for apparent sacral pressure ulcers - continue antifungal barrier cream Plan PT/OT ordered prior Time Spent With Patient Time with patient: 25 - 35 minutes Subjective Date/time seen: 03/14/25 08:48 Interval history: Bharti Neal is a 74 year old female patient admitted to the hospital for findings of increased presacral intraabdominal abscess with concern for bowel perforation. She has a complex past medical history of diverticulitis, DM, HTN, cardiac arrest, septic shock, respiratory failure, abdominal abscess, anemia, hypernatremia, A-fib, hypokalemia, bilateral nephrolithiasis, hematuria, and CHF with recent prolonged admission to this facility. Patient was at [facility] and complained of left flank pain. She reported chills but no fever. No nausea/vomiting or other abdominal pain. Repeat CT scan was obtained which showed significant worsening of known intraabdominal abscess, now with air interspersed concerning for rupture of bowel. Patient admitted on IV antibiotics, NPO and surgical eval. 6/6- pt is seen and examined. Plan is to have drain placed today per radiology. 6/7 doing well. pain is better. drain in place. Resting with eyes closed. 6/8 wbc increased today drain in place, not much output. No appetite, but trying to drink supplements. no new or worsenign abd pain, no chills Review of Systems Review of Systems: CONSTITUTIONAL: Denies fever GASTROINTESTINAL: Denies abdominal pain, nausea, vomiting All systems reviewed & are unremarkable except as noted in HPI and below Exam Narrative: GENERAL: Chronically ill-appearing, well-nourished, and in no acute distress. HEAD: Normocephalic, atraumatic. EYES: EOMI. ENT: Nares clear, no rhinorrhea or epistaxis. Mucous membranes dry. NECK: Supple. No adenopathy or masses. CHEST: Clear to auscultation. No respiratory distress. No wheezes rales or rhonchi HEART: Regular rate and rhythm. Normal peripheral pulses. ABDOMEN: Soft, nontender, nondistended, normal bowel sounds. Chronic Espinoza catheter in place with dark yellow/orange urine noted. EXTREMITIES: Normal range of motion with global generalized weakness, no focal deficits. No edema. SKIN: Warm, dry, no rash. Sacral pressure ulcer noted, not open NEURO: No focal deficits. Alert and oriented x3. PSYCH: Normal mood and affect Objective Data Vital Signs Vital Signs: Vital Signs - 24 hr 03/13/25 14:00 03/13/25 17:00 03/13/25 20:00 Temperature 98.6 F Pulse Rate 69 72 76 Respiratory Rate 18 16 16 Blood Pressure 138/67 145/76 H Pulse Oximetry 94 93 93 Oxygen Delivery Room Air 03/13/25 20:34 03/13/25 20:57 03/14/25 03:56 Temperature 97.9 F 97.7 F Pulse Rate 68 76 86 Respiratory Rate 16 16 Blood Pressure 139/68 117/58 L Pulse Oximetry 93 94 Oxygen Delivery 03/14/25 08:28 Temperature Pulse Rate 85 Respiratory Rate Blood Pressure Pulse Oximetry Oxygen Delivery Intake/Output Intake/Output: Intake & Output 03/11/25 03/12/25 03/13/25 03/14/25 23:59 23:59 23:59 23:59 Intake Total 1870 3719 2480 200 Output Total 875 1125 600 250 Balance 995 2594 1880 -50 Meds/Results Medications: Active Medications Generic Name Dose Route Start Last Admin Trade Name Freq PRN Reason Stop Dose Admin Acetaminophen 650 mg 03/13/25 02:01 03/13/25 16:57 Acetaminophen 325 Mg Tablet PO 650 mg Q6H PRN Administration fever or pain Albuterol 2.5 mg 03/10/25 23:09 Albuterol Sulfate Neb 2.5 Mg/3 Ml Inh INHALATION Q6HRT PRN shortness of breath or wheezing Alprazolam 0.25 mg 03/10/25 23:09 03/14/25 01:20 Alprazolam (*Crx) 0.25 Mg Tablet PO 0.25 mg TID PRN Administration anxiety Dextrose 12.5 gm 03/10/25 23:10 Dextrose 50% 25 Gm/50 Ml Syringe IV PUSH PRN PRN Hypoglycemia Protocol Fluticasone Propionate 1 spray 03/11/25 00:29 Fluticasone Propionate 0.05% Na Spr 16 Gm Btl (*Bkc) NASAL Q12H PRN allergy symptoms Glucagon 1 mg 03/10/25 23:10 Glucagon For Inj 1 Mg Vial IM PRN PRN Hypoglycemia Protocol Glucose 15 gm 03/10/25 23:10 Glucose Oral Gel 15 Gm Of Glucse In 37.5 Gm Tube PO PRN PRN Hypoglycemia Protocol Ceftriaxone Sodium 1 gm in 50 mls @ 100 mls/hr 03/11/25 19:00 03/13/25 17:38 Rocephin 1 Gm/Ns 50 Ml IVPB 100 mls/hr Q24H KANDIS Administration Metronidazole 500 mg in 100 mls @ 100 mls/hr 03/11/25 04:00 03/14/25 05:05 Flagyl 500 Mg/Iso Soln 100 Ml IVPB Infused Q8H KANDIS Infusion Dextrose 1,000 mls @ 100 mls/hr 03/10/25 23:10 Dextrose 5% 1,000 Ml IVPB PRN PRN Hypoglycemia Protocol Sodium Chloride 1,000 mls @ 100 mls/hr 03/12/25 21:40 03/14/25 01:19 Normal Saline Iv IV CONT 100 mls/hr .Q10H KANDIS Administration Potassium Chloride 40 meq/ 520 mls @ 130 mls/hr 03/14/25 08:47 Sodium Chloride IVPB 03/14/25 12:46 ONCE ONE Insulin Aspart 4 - 8 units 03/11/25 08:00 03/13/25 18:51 Insulin Aspart (*Bkc) 100 Units/Ml SUB-Q Not Given TIDWM [facility] Protocol Insulin Glargine 10 units 03/11/25 21:00 03/13/25 20:34 Insulin Glargine (*Bkc) 100 Units/Ml SUB-Q 10 units HS KANDIS Administration Magnesium Oxide 400 mg 03/14/25 09:00 Magnesium Oxide 400 Mg Tablet PO DAILY KANDIS Metoprolol Succinate 37.5 mg 03/11/25 09:00 03/14/25 08:28 Metoprolol Succinate Ext Rel 12.5 Mg Tabcr PO 37.5 mg Q12HR KANDIS Administration Miconazole Nitrate 1 applic 03/11/25 09:00 03/14/25 08:30 Miconazole Nitrate 2% Cream 30 Gm Tube TOPICAL 1 applic BID KANDIS Administration Morphine Sulfate 2 mg 03/11/25 10:29 Morphine Sulfate (*Crx) 2 Mg/Ml Inj IV PUSH Q2H PRN Pain Rated 4-6 Morphine Sulfate 4 mg 03/11/25 10:28 03/14/25 04:02 Morphine Sulfate (*Crx) 4 Mg/Ml Inj IV PUSH 4 mg Q2H PRN Administration Pain Rated 7-10 Pantoprazole Sodium 40 mg 03/11/25 09:00 03/14/25 08:29 Pantoprazole 40 Mg Tablet PO 40 mg Q12HR KANDIS Administration Simethicone 80 mg 03/12/25 02:31 03/14/25 01:20 Simethicone 80 Mg Tab.Chew PO 80 mg QID PRN Administration Gas Discomfort Sodium Chloride 10 ml 03/12/25 14:00 03/14/25 04:05 Central Line Flush IV PUSH 10 ml Q8HR KANDIS Administration Sodium Chloride 10 ml 03/12/25 09:29 Central Line Flush IV PUSH PRN PRN with TPN bag changes Sodium Chloride 20 ml 03/12/25 09:29 03/14/25 04:05 Central Line Flush IV PUSH 20 ml PRN PRN Administration after blood draws Spironolactone 50 mg 03/11/25 09:00 03/14/25 08:29 Spironolactone 25 Mg Tablet PO 50 mg BID KANDIS Administration Tamsulosin HCl 0.4 mg 03/11/25 09:00 03/14/25 08:28 Tamsulosin Hcl 0.4 Mg Capsule PO 0.4 mg QAM KANDIS Administration Radiology Results: ITS Impressions Chest X-Ray 03/12/25 09:24 Impression: 1: Extensive stable bilateral airspace disease which may represent edema or pneumonia. 2: Bilateral pleural effusions without change. Catheter Placement CT 03/12/25 15:47 IMPRESSION: 1. Successful CT-guided abscess drainage. 2. 20 mL fluid was sent for aerobic and anaerobic cultures. 3. The catheter will be managed by Dr. Goins. Labs Labs: Laboratory Results - last 24 hr 03/13/25 03/13/25 03/14/25 11:50 18:14 00:21 WBC RBC Hgb Hct MCV MCH MCHC RDW Plt Count MPV Immature Gran % (Auto) Neut % (Auto) Lymph % (Auto) [place] % (Auto) Eos % (Auto) Baso % (Auto) Lymph # (Auto) [place] # (Auto) Eos # (Auto) Baso # (Auto) Abs Immat Gran (auto) Absolute Neuts (auto) Absolute Nucleated RBC Band Neutrophils % Nucleated RBC % Smudge Cells Platelet Estimate Hypochromasia Anisocytosis Microcytosis Schistocytes Sodium Potassium Chloride Carbon Dioxide Anion Gap BUN Creatinine Estim Creat Clear Calc Estimated GFR Glucose POC Capillary Glucose 135 H 115 H 115 H Calcium Magnesium Total Bilirubin AST ALT Alkaline Phosphatase Total Protein Albumin 03/14/25 03/14/25 03:49 06:23 WBC 20.3 H RBC 3.28 L Hgb 9.0 L Hct 29.9 L MCV 91.2 MCH 27.4 MCHC 30.1 L RDW 22.7 H Plt Count 439 H MPV 9.2 Immature Gran % (Auto) 1.9 H Neut % (Auto) 89.9 H Lymph % (Auto) 2.8 L [place] % (Auto) 4.8 Eos % (Auto) 0.3 Baso % (Auto) 0.3 Lymph # (Auto) 0.56 L [place] # (Auto) 1.0 H Eos # (Auto) 0.1 Baso # (Auto) 0.1 Abs Immat Gran (auto) 0.38 H Absolute Neuts (auto) 18.3 H Absolute Nucleated RBC 0.000 Band Neutrophils % Not Reportable Nucleated RBC % 0.0 Smudge Cells Present Platelet Estimate Increased Hypochromasia 1+ Anisocytosis 1+ Microcytosis 1+ Schistocytes None seen Sodium 140 Potassium 3.0 L Chloride 107 Carbon Dioxide 28 Anion Gap 5 BUN 10 Creatinine 0.40 L Estim Creat Clear Calc 116 Estimated GFR > 60 Glucose 104 POC Capillary Glucose 90 Calcium 7.8 L Magnesium 1.7 Total Bilirubin 0.3 AST 14 ALT 8 Alkaline Phosphatase 103 Total Protein 5.5 L Albumin 2.1 L Quality VTE Prophylaxis VTE prophylaxis: mechanical ordered
[2025-03-14] MEDS: POTASSIUM CHLORIDE INJ 40 MEQ in SODIUM CHLORIDE 0.9% IV 500 ML 130 MEQ IVPB (09:45)
[2025-03-14] MEDS: MAGNESIUM OXIDE 400 MG TABLET PO (09:45)
--- NOTE | 2025-03-14 10:57 | PCPTNOTE ---
attempted PT eval, per RN pt just got morphine for 8/10 pain and is very unmotivated to participate, per OT pt said that if she is sleeping not to wake her and refused OT early, checked in on pt and pt is sleeping, will attempt again at a later time
--- NOTE | 2025-03-14 11:30 | PC.NURSE ---
Patient accordian drain site found to be leaking. Upon inspection, the catheter line was found to be broken and unable to repair/replace by RN. In order to contain abscess/infection, an ostomy appliance was placed over the remaining valve. Provider notified.
--- NOTE | 2025-03-14 11:38 | PCOTNOTE ---
Attempted OT evaluation. Pt. was just given morphine and was sound asleep. Pt. requested earlier to no be woken up. Will continue to follow and attempt again as able.
[2025-03-14] MEDS: ACETAMINOPHEN 325 MG TABLET 650 MG PO (11:44)
[2025-03-14 12:12] LABS: Glucose Point of Care 83 mg/dl (65-105)
--- NOTE | 2025-03-14 12:12 | PM.PNGS ---
Progress Note: A&P Assessment and Plan (1) Intra-abdominal abscess: Code(s): K65.1 - Peritoneal abscess Status: Acute Assessment and Plan: drain seems to be dislodged, will repeat CT, cont IV abx, WBC increased but exam largely benign Subjective Subjective Date/Time Seen: 03/14/25 12:12 Interval history: still feeling weak and tired, no abd pain, c/o lower back, buttock pain Review of Systems Review of Systems: All systems reviewed & are unremarkable except as noted in HPI and below Exam Const: General: cooperative, no acute distress, ill appearing and uncomfortable Resp: Auscultation: clear to auscultation bilaterally Cardio: Rate: regular rate Rhythm: regular rhythm GI: Inspection: normal to inspection and non-distended GI Palp: No abdominal tenderness and Yes Soft to palpation Other: drain not holding suction, taped together, moderate amount of purulent drainage Objective Data Vital Signs Vital Signs: Vital Signs - 24 hr 03/13/25 14:00 03/13/25 17:00 03/13/25 20:00 Temperature 37.0 C Pulse Rate 69 72 76 Respiratory Rate 18 16 16 Blood Pressure 138/67 145/76 H Pulse Oximetry 94 93 93 Oxygen Delivery Room Air Fraction of Inspired Oxygen 03/13/25 20:34 03/13/25 20:57 03/14/25 03:56 Temperature 36.6 C 36.5 C Pulse Rate 68 76 86 Respiratory Rate 16 16 Blood Pressure 139/68 117/58 L Pulse Oximetry 93 94 Oxygen Delivery Fraction of Inspired Oxygen 03/14/25 08:28 03/14/25 08:29 Temperature Pulse Rate 85 85 Respiratory Rate 16 Blood Pressure Pulse Oximetry 96 Oxygen Delivery Room Air Fraction of Inspired Oxygen 1 Intake/Output Intake/Output: Intake & Output 03/11/25 03/12/25 03/13/25 03/14/25 23:59 23:59 23:59 23:59 Intake Total 1870 3719 2480 200 Output Total 875 1125 600 250 Balance 995 2594 1880 -50 Meds/Results Medications: Active Medications Generic Name Dose Route Start Last Admin Trade Name Freq PRN Reason Stop Dose Admin Acetaminophen 650 mg 03/13/25 02:01 03/14/25 11:44 Acetaminophen 325 Mg Tablet PO 650 mg Q6H PRN Administration fever or pain Albuterol 2.5 mg 03/10/25 23:09 Albuterol Sulfate Neb 2.5 Mg/3 Ml Inh INHALATION Q6HRT PRN shortness of breath or wheezing Alprazolam 0.25 mg 03/10/25 23:09 03/14/25 01:20 Alprazolam (*Crx) 0.25 Mg Tablet PO 0.25 mg TID PRN Administration anxiety Dextrose 12.5 gm 03/10/25 23:10 Dextrose 50% 25 Gm/50 Ml Syringe IV PUSH PRN PRN Hypoglycemia Protocol Fluticasone Propionate 1 spray 03/11/25 00:29 Fluticasone Propionate 0.05% Na Spr 16 Gm Btl (*Bkc) NASAL Q12H PRN allergy symptoms Glucagon 1 mg 03/10/25 23:10 Glucagon For Inj 1 Mg Vial IM PRN PRN Hypoglycemia Protocol Glucose 15 gm 03/10/25 23:10 Glucose Oral Gel 15 Gm Of Glucse In 37.5 Gm Tube PO PRN PRN Hypoglycemia Protocol Ceftriaxone Sodium 1 gm in 50 mls @ 100 mls/hr 03/11/25 19:00 03/13/25 17:38 Rocephin 1 Gm/Ns 50 Ml IVPB 100 mls/hr Q24H KANDIS Administration Metronidazole 500 mg in 100 mls @ 100 mls/hr 03/11/25 04:00 03/14/25 11:49 Flagyl 500 Mg/Iso Soln 100 Ml IVPB 100 mls/hr Q8H KANDIS Administration Dextrose 1,000 mls @ 100 mls/hr 03/10/25 23:10 Dextrose 5% 1,000 Ml IVPB PRN PRN Hypoglycemia Protocol Sodium Chloride 1,000 mls @ 100 mls/hr 03/12/25 21:40 03/14/25 01:19 Normal Saline Iv IV CONT 100 mls/hr .Q10H KANDIS Administration Potassium Chloride 40 meq/ 520 mls @ 130 mls/hr 03/14/25 08:47 03/14/25 09:45 Sodium Chloride IVPB 03/14/25 12:46 130 mls/hr ONCE ONE Administration Insulin Aspart 4 - 8 units 03/11/25 08:00 03/14/25 09:10 Insulin Aspart (*Bkc) 100 Units/Ml SUB-Q Not Given TIDWM KANDIS Protocol Insulin Glargine 10 units 03/11/25 21:00 03/13/25 20:34 Insulin Glargine (*Bkc) 100 Units/Ml SUB-Q 10 units HS KANDIS Administration Magnesium Oxide 400 mg 03/14/25 09:00 03/14/25 09:45 Magnesium Oxide 400 Mg Tablet PO 400 mg DAILY KANDIS Administration Metoprolol Succinate 37.5 mg 03/11/25 09:00 03/14/25 08:28 Metoprolol Succinate Ext Rel 12.5 Mg Tabcr PO 37.5 mg Q12HR KANDIS Administration Miconazole Nitrate 1 applic 03/11/25 09:00 03/14/25 08:30 Miconazole Nitrate 2% Cream 30 Gm Tube TOPICAL 1 applic BID KANDIS Administration Morphine Sulfate 2 mg 03/11/25 10:29 Morphine Sulfate (*Crx) 2 Mg/Ml Inj IV PUSH Q2H PRN Pain Rated 4-6 Morphine Sulfate 4 mg 03/11/25 10:28 03/14/25 10:02 Morphine Sulfate (*Crx) 4 Mg/Ml Inj IV PUSH 4 mg Q2H PRN Administration Pain Rated 7-10 Pantoprazole Sodium 40 mg 03/11/25 09:00 03/14/25 08:29 Pantoprazole 40 Mg Tablet PO 40 mg Q12HR KANDIS Administration Simethicone 80 mg 03/12/25 02:31 03/14/25 01:20 Simethicone 80 Mg Tab.Chew PO 80 mg QID PRN Administration Gas Discomfort Sodium Chloride 10 ml 03/12/25 14:00 03/14/25 04:05 Central Line Flush IV PUSH 10 ml Q8HR KANDIS Administration Sodium Chloride 10 ml 03/12/25 09:29 Central Line Flush IV PUSH PRN PRN with TPN bag changes Sodium Chloride 20 ml 03/12/25 09:29 03/14/25 04:05 Central Line Flush IV PUSH 20 ml PRN PRN Administration after blood draws Spironolactone 50 mg 03/11/25 09:00 03/14/25 08:29 Spironolactone 25 Mg Tablet PO 50 mg BID KANDIS Administration Tamsulosin HCl 0.4 mg 03/11/25 09:00 03/14/25 08:28 Tamsulosin Hcl 0.4 Mg Capsule PO 0.4 mg QAM KANDIS Administration Radiology Results: ITS Impressions Chest X-Ray 03/12/25 09:24 Impression: 1: Extensive stable bilateral airspace disease which may represent edema or pneumonia. 2: Bilateral pleural effusions without change. Catheter Placement CT 03/12/25 15:47 IMPRESSION: 1. Successful CT-guided abscess drainage. 2. 20 mL fluid was sent for aerobic and anaerobic cultures. 3. The catheter will be managed by Dr. Goins. Labs Labs: Laboratory Results - last 24 hr 03/13/25 03/14/25 03/14/25 18:14 00:21 03:49 WBC 20.3 H RBC 3.28 L Hgb 9.0 L Hct 29.9 L MCV 91.2 MCH 27.4 MCHC 30.1 L RDW 22.7 H Plt Count 439 H MPV 9.2 Immature Gran % (Auto) 1.9 H Neut % (Auto) 89.9 H Lymph % (Auto) 2.8 L [place] % (Auto) 4.8 Eos % (Auto) 0.3 Baso % (Auto) 0.3 Lymph # (Auto) 0.56 L [place] # (Auto) 1.0 H Eos # (Auto) 0.1 Baso # (Auto) 0.1 Abs Immat Gran (auto) 0.38 H Absolute Neuts (auto) 18.3 H Absolute Nucleated RBC 0.000 Band Neutrophils % Not Reportable Nucleated RBC % 0.0 Smudge Cells Present Platelet Estimate Increased Hypochromasia 1+ Anisocytosis 1+ Microcytosis 1+ Schistocytes None seen Sodium 140 Potassium 3.0 L Chloride 107 Carbon Dioxide 28 Anion Gap 5 BUN 10 Creatinine 0.40 L Estim Creat Clear Calc 116 Estimated GFR > 60 Glucose 104 POC Capillary Glucose 115 H 115 H Calcium 7.8 L Magnesium 1.7 Total Bilirubin 0.3 AST 14 ALT 8 Alkaline Phosphatase 103 Total Protein 5.5 L Albumin 2.1 L 03/14/25 03/14/25 06:23 11:58 WBC RBC Hgb Hct MCV MCH MCHC RDW Plt Count MPV Immature Gran % (Auto) Neut % (Auto) Lymph % (Auto) [place] % (Auto) Eos % (Auto) Baso % (Auto) Lymph # (Auto) [place] # (Auto) Eos # (Auto) Baso # (Auto) Abs Immat Gran (auto) Absolute Neuts (auto) Absolute Nucleated RBC Band Neutrophils % Nucleated RBC % Smudge Cells Platelet Estimate Hypochromasia Anisocytosis Microcytosis Schistocytes Sodium Potassium Chloride Carbon Dioxide Anion Gap BUN Creatinine Estim Creat Clear Calc Estimated GFR Glucose POC Capillary Glucose 90 83 Calcium Magnesium Total Bilirubin AST ALT Alkaline Phosphatase Total Protein Albumin
[2025-03-14] MEDS: MORPHINE SULFATE (*CRX) 2 MG/ML INJ IV PUSH ×2 (12:20→16:19)
[2025-03-14 18:24] LABS: Glucose Point of Care 74 mg/dl (65-105)
[2025-03-14 23:22] LABS: Glucose Point of Care 86 mg/dl (65-105)
[2025-03-15] VITALS (7 sets, daily range): BP systolic 121–143; BP diastolic 67–83; PULSE 63–75; RESP 16–20; TEMP 36.4–36.7; O2SAT 93–98; BMI 10.0
[2025-03-15 00:23] LABS: Glucose Point of Care 86 mg/dl (65-105)
[2025-03-15] MEDS: SODIUM CHLORIDE 0.9% IV 1,000 ML 100 ML IV CONT ×2 (01:50→12:30)
[2025-03-15] MEDS: metroNIDAZOLE 500 MG/ISO 100ML 500 MG/100 ML BAG 100 MG IVPB ×3 (03:16→21:12)
[2025-03-15] MEDS: MORPHINE SULFATE (*CRX) 4 MG/ML INJ IV PUSH ×2 (03:16→21:13)
[2025-03-15] MEDS: ALPRAZolam (*CRX) 0.25 MG TABLET PO ×2 (03:16→21:12)
[2025-03-15] MEDS: CENTRAL LINE FLUSH 10 ML IV PUSH ×3 (04:59→21:14)
[2025-03-15] MEDS: CENTRAL LINE FLUSH 20 ML IV PUSH (04:59)
[2025-03-15 05:24] LABS: Basophils Absolute Auto 0.1 K/mm3 (0.0-0.1); Basophils Percent Auto 0.4 % (0.2-1.2); Eosinophils Percent Auto 0.2 % (0-4.4); Hematocrit 31.7 % (37.0-47.0); Hemoglobin 9.2 g/dL (12.0-15.0); Immature Granulocyte Percent A 1.6 % (0-0.5); Lymphocytes Absolute Auto 0.76 K/mm3 (0.9-3.2); Lymphocytes Percent Auto 4.1 % (18.3-44.2); Mean Corpuscular Hemoglobin 26.9 pg (26-34); Mean Corpuscular Volume 92.7 fl (80-100); Mean Platelet Volume 9.4 fl (7.4-10.4); Monocytes Percent Auto 5.2 % (2.6-8.5); Neutrophils Absolute Auto 16.3 K/mm3 (1.3-6.7); Neutrophils Percent Auto 88.5 % (45.5-73.1); Platelet Count Result 452 k/mm3 (150-375); Red Blood Count 3.42 M/mm3 (4.2-5.4); White Blood Count 18.4 K/mm3 (4.5-10.0)
[2025-03-15 06:07] LABS: Alanine Aminotransferase 7 U/L (6-35); Albumin Level 2.2 g/dL (3.5-5.1); Alkaline Phosphatase 112 U/L (38-126); Anion Gap 5 mmol/L (4-12); Aspartate Amino Transferase 18 U/L (14-36); Bilirubin,Total 0.3 mg/dL (0.2-1.3); Blood Urea Nitrogen 11 mg/dL (7-17); Calcium 8.2 mg/dL (8.4-10.2); Carbon Dioxide 28 mmol/L (22-30); Chloride 108 mmol/L (98-107); Estimated CRCL calculation 105 ml/min; Estimated Glomerular Filt Rate > 60; Glucose 83 mg/dL (65-110); Magnesium 1.8 mg/dL (1.6-2.3); Potassium 3.6 mmol/L (3.4-5.0); Sodium 141 mmol/L (137-145); Total Protein 5.9 g/dL (6.3-8.2)
[2025-03-15 06:17] LABS: Glucose Point of Care 98 mg/dl (65-105)
[2025-03-15 06:19] LABS: Anisocytosis 2+; Hypochromasia 1+; Platelet Estimate Increased (Adequate); Schistocytes None Seen
--- NOTE | 2025-03-15 08:05 | P.PNIM_ITS ---
Progress Note: A&P Assessment and Plan (1) Intra-abdominal abscess: Code(s): K65.1 - Peritoneal abscess Status: Acute Assessment and Plan: -Prior intraabdominal abscess s/p drain placement with complications related to diverticulitis was known -Repeat CT due to Left flank pain showed worsening of abscess and concern for bowel perforation due to extraluminal gas on CT -ER started Rocephin and Flagyl -General surgery consulted 03/12 - schedule for drain placement today with radiology continue ceftriaxone 1gm q24h, flagyl 500 mg q8h - drain is placed 03/12 pain is better -03/14 wbc increased-20.3 today on ceftriaxone -will continue for now 03/15 wbc a bit better today CT repeated Large pelvic abscess along the right side of the distal rectum measuring approximately 15 x 6.8 x 8.5 cm. Interval placement of drainage catheter via right transgluteal approach with pigtail probably just within the collection. Correlate with tube output. 2.0 x 1.3 cm right renal pelvis stone without marnie hydronephrosis. Additional small nonobstructing stones, as above. Cholelithiasis and gallbladder sludge. Moderate to large bilateral pleural effusions with extensive bilateral lower lobe atelectasis - issues with drain as it was not draining as it should of - surgery is disusing with radiology replacing it - IS ordered, needs to get out of bed TID with meals continue working with PT/OT (2) Type 2 diabetes mellitus with hyperglycemia: Code(s): E11.65 - Type 2 diabetes mellitus with hyperglycemia Status: Acute Assessment and Plan: -Resume Lantus on 03/11/25 -ACHS fingerstick glucose with SSI high dose -A1c 9.6 on 01/26/25, probably improved since then since in the hospital/acute rehab the whole time bs 83 this am -will decrease lantus to 8 units tonight since diminished appetite- to avoid hypoglycemia (3) Hypokalemia: Code(s): E87.6 - Hypokalemia Status: Acute Assessment and Plan: -replace and monitor 3.4 today monitor for now 3.1 today- will replace and monitor (4) Paroxysmal atrial fibrillation with RVR: Code(s): I48.0 - Paroxysmal atrial fibrillation Status: Acute Assessment and Plan: - Anticoagulation not recommended at this time due to likely need for surgical intervention -Monitor Vital Signs Q4H and PRN (5) UTI (urinary tract infection): Qualifiers: Hematuria presence: without hematuria Urinary tract infection type: acute cystitis Qualified Code(s): N30.00 - Acute cystitis without hematuria Code(s): N39.0 - Urinary tract infection, site not specified Status: Ruled-out Assessment and Plan: -Chronic indwelling Espinoza catheter -UA appears potentially infected -Urine culture ordered -Blood cultures obtained cultures are back continue antibiotics she is on (6) Critical illness myopathy: Code(s): G72.81 - Critical illness myopathy Status: Acute Assessment and Plan: -Patient generally weak s/p prolonged, complicated hospitalization -Not making much progress at acute rehab (7) Hx of cardiac arrest: Code(s): Z86.74 - Personal history of sudden cardiac arrest Status: Acute Assessment and Plan: -Prior hospitalization complicated by cardiac arrest during procedure to place drain into intraabdominal abscess -Led to prolonged stay and significant weakness (8) Sacral decubitus ulcer: Code(s): L89.159 - Pressure ulcer of sacral region, unspecified stage Status: Acute Assessment and Plan: -Wound care consulted for apparent sacral pressure ulcers - continue antifungal barrier cream Plan PT/OT ordered prior Time Spent With Patient Time with patient: 25 - 35 minutes Subjective Date/time seen: 03/15/25 08:05 Interval history: Bharti Neal is a 74 year old female patient admitted to the hospital for findings of increased presacral intraabdominal abscess with concern for bowel perforation. She has a complex past medical history of diverticulitis, DM, HTN, cardiac arrest, septic shock, respiratory failure, abdominal abscess, anemia, hypernatremia, A-fib, hypokalemia, bilateral nephrolithiasis, hematuria, and CHF with recent prolonged admission to this facility. Patient was at [facility] and complained of left flank pain. She reported chills but no fever. No nausea/vomiting or other abdominal pain. Repeat CT scan was obtained which showed significant worsening of known intraabdominal abscess, now with air interspersed concerning for rupture of bowel. Patient admitted on IV antibiotics, NPO and surgical eval. 03/12- pt is seen and examined. Plan is to have drain placed today per radiology. 03/13 doing well. pain is better. drain in place. Resting with eyes closed. 03/14 wbc increased today drain in place, not much output. No appetite, but trying to drink supplements. no new or worsening abd pain, no chills 03/15 seen and examined. still weak, had repeated CT scan. vitals stable, no chills. Issues with drain as it was not draining as it should of. Review of Systems Review of Systems: CONSTITUTIONAL: Denies fever GASTROINTESTINAL: Denies abdominal pain, nausea, vomiting All systems reviewed & are unremarkable except as noted in HPI and below Exam Narrative: GENERAL: Chronically ill-appearing, well-nourished, and in no acute distress. HEAD: Normocephalic, atraumatic. EYES: EOMI. ENT: Nares clear, no rhinorrhea or epistaxis. Mucous membranes dry. NECK: Supple. No adenopathy or masses. CHEST: Clear to auscultation. No respiratory distress. No wheezes rales or rhonchi HEART: Regular rate and rhythm. Normal peripheral pulses. ABDOMEN: Soft, a bit tender, nondistended, normal bowel sounds. Chronic Espinoza catheter in place with dark yellow/orange urine noted. EXTREMITIES: Normal range of motion with global generalized weakness, no focal deficits. No edema. SKIN: Warm, dry, no rash. Sacral pressure ulcer noted, not open NEURO: No focal deficits. Alert and oriented x3. PSYCH: Normal mood and affect Objective Data Vital Signs Vital Signs: Vital Signs - 24 hr 03/14/25 08:28 03/14/25 08:29 03/14/25 14:00 Temperature 97.4 F L Pulse Rate 85 85 70 Respiratory Rate 16 20 Blood Pressure 114/67 Pulse Oximetry 96 94 Oxygen Delivery Room Air Fraction of Inspired Oxygen 1 03/14/25 20:00 03/14/25 20:27 03/14/25 20:31 Temperature 98.4 F Pulse Rate 80 74 80 Respiratory Rate 18 18 Blood Pressure 141/74 H Pulse Oximetry 95 95 Oxygen Delivery Room Air Fraction of Inspired Oxygen 1 03/15/25 05:09 Temperature 97.6 F Pulse Rate 72 Respiratory Rate 18 Blood Pressure 128/71 Pulse Oximetry 93 Oxygen Delivery Fraction of Inspired Oxygen Intake/Output Intake/Output: Intake & Output 03/12/25 03/13/25 03/14/25 03/15/25 23:59 23:59 23:59 23:59 Intake Total 3719 2530 3170 300 Output Total 8651 088 4800 150 Balance 2594 1930 1245 150 Meds/Results Medications: Active Medications Generic Name Dose Route Start Last Admin Trade Name Freq PRN Reason Stop Dose Admin Acetaminophen 650 mg 03/13/25 02:01 03/14/25 11:44 Acetaminophen 325 Mg Tablet PO 650 mg Q6H PRN Administration fever or pain Albuterol 2.5 mg 03/10/25 23:09 Albuterol Sulfate Neb 2.5 Mg/3 Ml Inh INHALATION Q6HRT PRN shortness of breath or wheezing Alprazolam 0.25 mg 03/10/25 23:09 03/15/25 03:16 Alprazolam (*Crx) 0.25 Mg Tablet PO 0.25 mg TID PRN Administration anxiety Dextrose 12.5 gm 03/10/25 23:10 Dextrose 50% 25 Gm/50 Ml Syringe IV PUSH PRN PRN Hypoglycemia Protocol Fluticasone Propionate 1 spray 03/11/25 00:29 Fluticasone Propionate 0.05% Na Spr 16 Gm Btl (*Bkc) NASAL Q12H PRN allergy symptoms Glucagon 1 mg 03/10/25 23:10 Glucagon For Inj 1 Mg Vial IM PRN PRN Hypoglycemia Protocol Glucose 15 gm 03/10/25 23:10 Glucose Oral Gel 15 Gm Of Glucse In 37.5 Gm Tube PO PRN PRN Hypoglycemia Protocol Ceftriaxone Sodium 1 gm in 50 mls @ 100 mls/hr 03/11/25 19:00 03/14/25 18:07 Rocephin 1 Gm/Ns 50 Ml IVPB 100 mls/hr Q24H KANDIS Administration Metronidazole 500 mg in 100 mls @ 100 mls/hr 03/11/25 04:00 03/15/25 04:16 Flagyl 500 Mg/Iso Soln 100 Ml IVPB Infused Q8H KANDIS Infusion Dextrose 1,000 mls @ 100 mls/hr 03/10/25 23:10 Dextrose 5% 1,000 Ml IVPB PRN PRN Hypoglycemia Protocol Sodium Chloride 1,000 mls @ 100 mls/hr 03/12/25 21:40 03/15/25 01:50 Normal Saline Iv IV CONT 100 mls/hr .Q10H KANDIS Administration Insulin Aspart 4 - 8 units 03/11/25 08:00 03/14/25 18:30 Insulin Aspart (*Bkc) 100 Units/Ml SUB-Q Not Given TIDWM KANDIS Protocol Insulin Glargine 10 units 03/11/25 21:00 03/14/25 20:33 Insulin Glargine (*Bkc) 100 Units/Ml SUB-Q Not Given HS [facility] Magnesium Oxide 400 mg 03/14/25 09:00 03/14/25 09:45 Magnesium Oxide 400 Mg Tablet PO 400 mg DAILY KANDIS Administration Metoprolol Succinate 37.5 mg 03/11/25 09:00 03/14/25 20:31 Metoprolol Succinate Ext Rel 12.5 Mg Tabcr PO 37.5 mg Q12HR [facility] Administration Miconazole Nitrate 1 applic 03/11/25 09:00 03/14/25 16:20 Miconazole Nitrate 2% Cream 30 Gm Tube TOPICAL 1 applic BID KANDIS Administration Morphine Sulfate 2 mg 03/11/25 10:29 03/14/25 16:19 Morphine Sulfate (*Crx) 2 Mg/Ml Inj IV PUSH 2 mg Q2H PRN Administration Pain Rated 4-6 Morphine Sulfate 4 mg 03/11/25 10:28 03/15/25 03:16 Morphine Sulfate (*Crx) 4 Mg/Ml Inj IV PUSH 4 mg Q2H PRN Administration Pain Rated 7-10 Pantoprazole Sodium 40 mg 03/11/25 09:00 03/14/25 20:31 Pantoprazole 40 Mg Tablet PO 40 mg Q12HR KANDIS Administration Simethicone 80 mg 03/12/25 02:31 03/14/25 20:31 Simethicone 80 Mg Tab.Chew PO 80 mg QID PRN Administration Gas Discomfort Sodium Chloride 10 ml 03/12/25 14:00 03/15/25 04:59 Central Line Flush IV PUSH 10 ml Q8HR KANDIS Administration Sodium Chloride 10 ml 03/12/25 09:29 Central Line Flush IV PUSH PRN PRN with TPN bag changes Sodium Chloride 20 ml 03/12/25 09:29 03/15/25 04:59 Central Line Flush IV PUSH 20 ml PRN PRN Administration after blood draws Spironolactone 50 mg 03/11/25 09:00 03/14/25 16:22 Spironolactone 25 Mg Tablet PO 50 mg BID KANDIS Administration Tamsulosin HCl 0.4 mg 03/11/25 09:00 03/14/25 08:28 Tamsulosin Hcl 0.4 Mg Capsule PO 0.4 mg QAM KANDIS Administration Radiology Results: ITS Impressions Chest X-Ray 03/12/25 09:24 Impression: 1: Extensive stable bilateral airspace disease which may represent edema or pneumonia. 2: Bilateral pleural effusions without change. Catheter Placement CT 03/12/25 15:47 IMPRESSION: 1. Successful CT-guided abscess drainage. 2. 20 mL fluid was sent for aerobic and anaerobic cultures. 3. The catheter will be managed by Dr. Goins. Abdomen/Pelvis CT 03/15/25 06:20 Impression: Large pelvic abscess along the right side of the distal rectum measuring approximately 15 x 6.8 x 8.5 cm. Interval placement of drainage catheter via right transgluteal approach with pigtail probably just within the collection. Correlate with tube output. 2.0 x 1.3 cm right renal pelvis stone without marnie hydronephrosis. Additional small nonobstructing stones, as above. Cholelithiasis and gallbladder sludge. Moderate to large bilateral pleural effusions with extensive bilateral lower lobe atelectasis. Labs Labs: Laboratory Results - last 24 hr 03/14/25 03/14/25 03/14/25 11:58 18:16 20:32 WBC RBC Hgb Hct MCV MCH MCHC RDW Plt Count MPV Immature Gran % (Auto) Neut % (Auto) Lymph % (Auto) [place] % (Auto) Eos % (Auto) Baso % (Auto) Lymph # (Auto) [place] # (Auto) Eos # (Auto) Baso # (Auto) Abs Immat Gran (auto) Absolute Neuts (auto) Absolute Nucleated RBC Band Neutrophils % Nucleated RBC % Platelet Estimate Hypochromasia Anisocytosis Schistocytes Sodium Potassium Chloride Carbon Dioxide Anion Gap BUN Creatinine Estim Creat Clear Calc Estimated GFR Glucose POC Capillary Glucose 83 74 86 Calcium Magnesium Total Bilirubin AST ALT Alkaline Phosphatase Total Protein Albumin 03/14/25 03/15/25 03/15/25 23:19 05:00 05:12 WBC 18.4 H RBC 3.42 L Hgb 9.2 L Hct 31.7 L MCV 92.7 MCH 26.9 MCHC 29.0 L RDW 23.0 H Plt Count 452 H MPV 9.4 Immature Gran % (Auto) 1.6 H Neut % (Auto) 88.5 H Lymph % (Auto) 4.1 L [place] % (Auto) 5.2 Eos % (Auto) 0.2 Baso % (Auto) 0.4 Lymph # (Auto) 0.76 L [place] # (Auto) 1.0 H Eos # (Auto) 0.0 Baso # (Auto) 0.1 Abs Immat Gran (auto) 0.30 H Absolute Neuts (auto) 16.3 H Absolute Nucleated RBC 0.000 Band Neutrophils % Not Reportable Nucleated RBC % 0.0 Platelet Estimate Increased Hypochromasia 1+ Anisocytosis 2+ Schistocytes None seen Sodium 141 Potassium 3.6 Chloride 108 H Carbon Dioxide 28 Anion Gap 5 BUN 11 Creatinine 0.45 L Estim Creat Clear Calc 105 Estimated GFR > 60 Glucose 83 POC Capillary Glucose 86 98 Calcium 8.2 L Magnesium 1.8 Total Bilirubin 0.3 AST 18 ALT 7 Alkaline Phosphatase 112 Total Protein 5.9 L Albumin 2.2 L Quality VTE Prophylaxis VTE prophylaxis: mechanical ordered
[2025-03-15] MEDS: METOPROLOL SUCCINATE EXT REL 12.5 MG TABCR 37.5 MG PO ×2 (09:20→21:12)
[2025-03-15] MEDS: SPIRONOLACTONE 25 MG TABLET 50 MG PO ×2 (09:20→17:13)
[2025-03-15] MEDS: MAGNESIUM OXIDE 400 MG TABLET PO (09:21)
[2025-03-15] MEDS: MICONAZOLE NITRATE 2% CREAM 30 GM TUBE 1 APPLIC TOPICAL (09:21)
[2025-03-15] MEDS: TAMSULOSIN HCL 0.4 MG CAPSULE PO (09:21)
[2025-03-15] MEDS: PANTOPRAZOLE 40 MG TABLET PO ×2 (09:21→21:13)
[2025-03-15] MEDS: MORPHINE SULFATE (*CRX) 2 MG/ML INJ IV PUSH ×3 (09:28→15:37)
--- NOTE | 2025-03-15 11:43 | P.PNGS_ITS ---
Progress Note: A&P Assessment and Plan (1) Intra-abdominal abscess: Code(s): K65.1 - Peritoneal abscess Status: Acute Assessment and Plan: * Perc drain has broken and is no longer on suction. It is essentially to gravity with the plastic portion broke in half. This is not adequately draining the abscess as the repeat CT scan this morning showed still a 15 cm abscess with the drain likely within or just at the posterior border of the abscess. Will discuss replacing and possibly repositioning the drain with the Radiologist. This is likely the reason for her persistent leukocytosis. * Continue IV antibiotics. Abscess cultures pending. Plan I have discussed the patient's case and plan of care with Dr. Goins. Subjective Subjective Date/Time Seen: 03/15/25 11:43 Interval history: Patient reporting back pain from laying in the bed. She wants repositioned. Denies abdominal or rectal pain. She isn't eating much. Less than 50% of meals today. Per nursing, her drain broke two nights ago. They have since been putting an ostomy bag over the drain insertion site to allow drainage that is coming through the catheter. It is not currently on suction as they have detached the suction part since it wasn't holding suction. Exam Const: General: comfortable and no acute distress GI: Inspection: non-distended GI Palp: Yes Soft to palpation, Yes Tenderness to palpation present (GI) (suprapubic tenderness), No Guarding due to palpation present (GI) and No Rebound tenderness present Auscultation: normal bowel sounds Other: Right transgluteal drain that is at the plastic part of the drain where purulent drainage is coming out of this area, the string attached to the pigtail is still intact. Objective Data Vital Signs Vital Signs: Vital Signs - 24 hr 03/14/25 14:00 03/14/25 20:00 03/14/25 20:27 Temperature 97.4 F L 98.4 F Pulse Rate 70 80 74 Respiratory Rate 20 18 18 Blood Pressure 114/67 141/74 H Pulse Oximetry 94 95 95 Oxygen Delivery Room Air Fraction of Inspired Oxygen 1 03/14/25 20:31 03/15/25 05:09 03/15/25 09:19 Temperature 97.6 F 97.5 F L Pulse Rate 80 72 73 Respiratory Rate 18 16 Blood Pressure 128/71 121/69 Pulse Oximetry 93 98 Oxygen Delivery Fraction of Inspired Oxygen 03/15/25 09:20 03/15/25 09:20 03/15/25 10:18 Temperature Pulse Rate 73 73 Respiratory Rate 16 Blood Pressure Pulse Oximetry 98 Oxygen Delivery Room Air Room Air Fraction of Inspired Oxygen 1 03/15/25 10:39 Temperature Pulse Rate Respiratory Rate Blood Pressure Pulse Oximetry Oxygen Delivery Room Air Fraction of Inspired Oxygen Intake/Output Intake/Output: Intake & Output 03/12/25 03/13/25 03/14/25 03/15/25 23:59 23:59 23:59 23:59 Intake Total 3719 2530 3220 420 Output Total 3612 191 3411 150 Balance 2594 1930 1295 270 Meds/Results Medications: Active Medications Generic Name Dose Route Start Last Admin Trade Name Freq PRN Reason Stop Dose Admin Acetaminophen 650 mg 03/13/25 02:01 03/14/25 11:44 Acetaminophen 325 Mg Tablet PO 650 mg Q6H PRN Administration fever or pain Albuterol 2.5 mg 03/10/25 23:09 Albuterol Sulfate Neb 2.5 Mg/3 Ml Inh INHALATION Q6HRT PRN shortness of breath or wheezing Alprazolam 0.25 mg 03/10/25 23:09 03/15/25 03:16 Alprazolam (*Crx) 0.25 Mg Tablet PO 0.25 mg TID PRN Administration anxiety Dextrose 12.5 gm 03/10/25 23:10 Dextrose 50% 25 Gm/50 Ml Syringe IV PUSH PRN PRN Hypoglycemia Protocol Fluticasone Propionate 1 spray 03/11/25 00:29 Fluticasone Propionate 0.05% Na Spr 16 Gm Btl (*Bkc) NASAL Q12H PRN allergy symptoms Glucagon 1 mg 03/10/25 23:10 Glucagon For Inj 1 Mg Vial IM PRN PRN Hypoglycemia Protocol Glucose 15 gm 03/10/25 23:10 Glucose Oral Gel 15 Gm Of Glucse In 37.5 Gm Tube PO PRN PRN Hypoglycemia Protocol Ceftriaxone Sodium 1 gm in 50 mls @ 100 mls/hr 03/11/25 19:00 03/14/25 18:37 Rocephin 1 Gm/Ns 50 Ml IVPB Infused Q24H [facility] Infusion Metronidazole 500 mg in 100 mls @ 100 mls/hr 03/11/25 04:00 03/15/25 11:23 Flagyl 500 Mg/Iso Soln 100 Ml IVPB 100 mls/hr Q8H [facility] Administration Dextrose 1,000 mls @ 100 mls/hr 03/10/25 23:10 Dextrose 5% 1,000 Ml IVPB PRN PRN Hypoglycemia Protocol Sodium Chloride 1,000 mls @ 100 mls/hr 03/12/25 21:40 03/15/25 01:50 Normal Saline Iv IV CONT 100 mls/hr .Q10H [facility] Administration Insulin Aspart 4 - 8 units 03/11/25 08:00 03/15/25 09:26 Insulin Aspart (*Bkc) 100 Units/Ml SUB-Q Not Given TIDWM [facility] Protocol Insulin Glargine 10 units 03/11/25 21:00 03/14/25 20:33 Insulin Glargine (*Bkc) 100 Units/Ml SUB-Q Not Given HS [facility] Magnesium Oxide 400 mg 03/14/25 09:00 03/15/25 09:21 Magnesium Oxide 400 Mg Tablet PO 400 mg DAILY [facility] Administration Metoprolol Succinate 37.5 mg 03/11/25 09:00 03/15/25 09:20 Metoprolol Succinate Ext Rel 12.5 Mg Tabcr PO 37.5 mg Q12HR [facility] Administration Miconazole Nitrate 1 applic 03/11/25 09:00 03/15/25 09:21 Miconazole Nitrate 2% Cream 30 Gm Tube TOPICAL 1 applic BID [facility] Administration Morphine Sulfate 2 mg 03/11/25 10:29 03/15/25 09:28 Morphine Sulfate (*Crx) 2 Mg/Ml Inj IV PUSH 2 mg Q2H PRN Administration Pain Rated 4-6 Morphine Sulfate 4 mg 03/11/25 10:28 03/15/25 03:16 Morphine Sulfate (*Crx) 4 Mg/Ml Inj IV PUSH 4 mg Q2H PRN Administration Pain Rated 7-10 Pantoprazole Sodium 40 mg 03/11/25 09:00 03/15/25 09:21 Pantoprazole 40 Mg Tablet PO 40 mg Q12HR [facility] Administration Simethicone 80 mg 03/12/25 02:31 03/14/25 20:31 Simethicone 80 Mg Tab.Chew PO 80 mg QID PRN Administration Gas Discomfort Sodium Chloride 10 ml 03/12/25 14:00 03/15/25 04:59 Central Line Flush IV PUSH 10 ml Q8HR [facility] Administration Sodium Chloride 10 ml 03/12/25 09:29 Central Line Flush IV PUSH PRN PRN with TPN bag changes Sodium Chloride 20 ml 03/12/25 09:29 03/15/25 04:59 Central Line Flush IV PUSH 20 ml PRN PRN Administration after blood draws Spironolactone 50 mg 03/11/25 09:00 03/15/25 09:20 Spironolactone 25 Mg Tablet PO 50 mg BID [facility] Administration Tamsulosin HCl 0.4 mg 03/11/25 09:00 03/15/25 09:21 Tamsulosin Hcl 0.4 Mg Capsule PO 0.4 mg QAM [facility] Administration Radiology Results: ITS Impressions Chest X-Ray 03/12/25 09:24 Impression: 1: Extensive stable bilateral airspace disease which may represent edema or pneumonia. 2: Bilateral pleural effusions without change. Catheter Placement CT 03/12/25 15:47 IMPRESSION: 1. Successful CT-guided abscess drainage. 2. 20 mL fluid was sent for aerobic and anaerobic cultures. 3. The catheter will be managed by Dr. Goins. Abdomen/Pelvis CT 03/15/25 06:20 Impression: Large pelvic abscess along the right side of the distal rectum measuring approximately 15 x 6.8 x 8.5 cm. Interval placement of drainage catheter via right transgluteal approach with pigtail probably just within the collection. Correlate with tube output. 2.0 x 1.3 cm right renal pelvis stone without marnie hydronephrosis. Additional small nonobstructing stones, as above. Cholelithiasis and gallbladder sludge. Moderate to large bilateral pleural effusions with extensive bilateral lower l obe atelectasis. Labs Labs: Laboratory Results - last 24 hr 03/14/25 03/14/25 03/14/25 11:58 18:16 20:32 WBC RBC Hgb Hct MCV MCH MCHC RDW Plt Count MPV Immature Gran % (Auto) Neut % (Auto) Lymph % (Auto) [place] % (Auto) Eos % (Auto) Baso % (Auto) Lymph # (Auto) [place] # (Auto) Eos # (Auto) Baso # (Auto) Abs Immat Gran (auto) Absolute Neuts (auto) Absolute Nucleated RBC Band Neutrophils % Nucleated RBC % Platelet Estimate Hypochromasia Anisocytosis Schistocytes Sodium Potassium Chloride Carbon Dioxide Anion Gap BUN Creatinine Estim Creat Clear Calc Estimated GFR Glucose POC Capillary Glucose 83 74 86 Calcium Magnesium Total Bilirubin AST ALT Alkaline Phosphatase Total Protein Albumin 03/14/25 03/15/25 03/15/25 23:19 05:00 05:12 WBC 18.4 H RBC 3.42 L Hgb 9.2 L Hct 31.7 L MCV 92.7 MCH 26.9 MCHC 29.0 L RDW 23.0 H Plt Count 452 H MPV 9.4 Immature Gran % (Auto) 1.6 H Neut % (Auto) 88.5 H Lymph % (Auto) 4.1 L [place] % (Auto) 5.2 Eos % (Auto) 0.2 Baso % (Auto) 0.4 Lymph # (Auto) 0.76 L [place] # (Auto) 1.0 H Eos # (Auto) 0.0 Baso # (Auto) 0.1 Abs Immat Gran (auto) 0.30 H Absolute Neuts (auto) 16.3 H Absolute Nucleated RBC 0.000 Band Neutrophils % Not Reportable Nucleated RBC % 0.0 Platelet Estimate Increased Hypochromasia 1+ Anisocytosis 2+ Schistocytes None seen Sodium 141 Potassium 3.6 Chloride 108 H Carbon Dioxide 28 Anion Gap 5 BUN 11 Creatinine 0.45 L Estim Creat Clear Calc 105 Estimated GFR > 60 Glucose 83 POC Capillary Glucose 86 98 Calcium 8.2 L Magnesium 1.8 Total Bilirubin 0.3 AST 18 ALT 7 Alkaline Phosphatase 112 Total Protein 5.9 L Albumin 2.2 L
[2025-03-15 11:45] LABS: Glucose Point of Care 98 mg/dl (65-105)
--- NOTE | 2025-03-15 14:19 | WPDCDIQUERY2 ---
CDI Query Clarification Request 1) Please clarify if UTI has been ruled in or ruled out. 2) If ruled in, please clarify if present on admission. The medical chart reflects the following: (5) UTI (urinary tract infection): Qualifiers: Hematuria presence: without hematuria Urinary tract infection type: acute cystitis Qualified Code(s): N30.00 - Acute cystitis without hematuria Code(s): N39.0 - Urinary tract infection, site not specified Status: Ruled-out Assessment and Plan: -Chronic indwelling Espinoza catheter -UA appears potentially infected -Urine culture ordered -Blood cultures obtained cultures are back continue antibiotics she is on Urine Culture Final 03/13/25-1308 Q Organism 1 Escherichia Coli IV ABX ceftriaxone and Flagyl <Ivy Solis RN - Last Filed: 03/15/25 14:25> Clarified Diagnosis Clarified Diagnosis: uTi yes POA <Shari Blair APRN - Last Filed: 03/15/25 14:45>
[2025-03-15] MEDS: SIMETHICONE 80 MG TAB.CHEW PO ×2 (15:21→21:12)
[2025-03-15] MEDS: ACETAMINOPHEN 325 MG TABLET 650 MG PO (15:21)
[2025-03-15 18:06] LABS: Glucose Point of Care 92 mg/dl (65-105)
[2025-03-15 22:09] LABS: Glucose Point of Care 89 mg/dl (65-105)
[2025-03-16 00:04] LABS: Glucose Point of Care 113 mg/dl (65-105)
[2025-03-16] MEDS: SODIUM CHLORIDE 0.9% IV 1,000 ML 100 ML IV CONT ×4 (00:47→18:03)
[2025-03-16] MEDS: metroNIDAZOLE 500 MG/ISO 100ML 500 MG/100 ML BAG 100 MG IVPB (03:42)
[2025-03-16 03:59] LABS: Basophils Absolute Auto 0.1 K/mm3 (0.0-0.1); Basophils Percent Auto 0.3 % (0.2-1.2); Eosinophils Percent Auto 0.2 % (0-4.4); Hematocrit 31.1 % (37.0-47.0); Hemoglobin 9.3 g/dL (12.0-15.0); Immature Granulocyte Absolute 0.36 K/mm3 (0.00-0.031); Immature Granulocyte Percent A 2.1 % (0-0.5); Lymphocytes Absolute Auto 0.66 K/mm3 (0.9-3.2); Lymphocytes Percent Auto 3.8 % (18.3-44.2); Mean Corpuscular HGB Conc 29.9 g/dl (32-36); Mean Corpuscular Hemoglobin 27.4 pg (26-34); Mean Corpuscular Volume 91.7 fl (80-100); Mean Platelet Volume 9.1 fl (7.4-10.4); Monocytes Absolute Auto 0.7 K/mm3 (0.1-0.6); Monocytes Percent Auto 3.9 % (2.6-8.5); Neutrophils Absolute Auto 15.5 K/mm3 (1.3-6.7); Neutrophils Percent Auto 89.7 % (45.5-73.1); Platelet Count Result 447 k/mm3 (150-375); Red Blood Count 3.39 M/mm3 (4.2-5.4); Red Cell Distribution Width 23.4 % (11.5-14.5); White Blood Count 17.3 K/mm3 (4.5-10.0)
[2025-03-16] MEDS: CENTRAL LINE FLUSH 20 ML IV PUSH (04:01)
[2025-03-16] MEDS: CENTRAL LINE FLUSH 10 ML IV PUSH ×3 (04:01→22:36)
[2025-03-16 04:14] LABS: Alanine Aminotransferase 6 U/L (6-35); Albumin Level 2.3 g/dL (3.5-5.1); Alkaline Phosphatase 98 U/L (38-126); Anion Gap 7 mmol/L (4-12); Aspartate Amino Transferase 14 U/L (14-36); Bilirubin,Total 0.3 mg/dL (0.2-1.3); Blood Urea Nitrogen 13 mg/dL (7-17); Calcium 8.1 mg/dL (8.4-10.2); Carbon Dioxide 26 mmol/L (22-30); Chloride 109 mmol/L (98-107); Estimated CRCL calculation 101 ml/min; Estimated Glomerular Filt Rate > 60; Glucose 92 mg/dL (65-110); Magnesium 1.8 mg/dL (1.6-2.3); Potassium 3.4 mmol/L (3.4-5.0); Sodium 142 mmol/L (137-145); Total Protein 5.8 g/dL (6.3-8.2)
[2025-03-16 04:24] LABS: Anisocytosis 1+; Hypochromasia 1+; Ovalocytes 1+; Platelet Estimate Increased (Adequate); Schistocytes None Seen
[2025-03-16 05:15] VITALS: BP 143/73; PULSE 65; RESP 20; TEMP 36.5; O2SAT 98
[2025-03-16 05:38] LABS: Glucose Point of Care 90 mg/dl (65-105)
[2025-03-16 08:00] VITALS: O2SAT 98
--- NOTE | 2025-03-16 08:54 | P.PNIM_ITS ---
Progress Note: A&P Assessment and Plan (1) Intra-abdominal abscess: Code(s): K65.1 - Peritoneal abscess Status: Acute Assessment and Plan: -Prior intraabdominal abscess s/p drain placement with complications related to diverticulitis was known -Repeat CT due to Left flank pain showed worsening of abscess and concern for bowel perforation due to extraluminal gas on CT -ER started Rocephin and Flagyl -General surgery consulted 03/12 - schedule for drain placement today with radiology continue ceftriaxone 1gm q24h, flagyl 500 mg q8h - drain is placed 03/12 pain is better -03/14 wbc increased-20.3 today on ceftriaxone -will continue for now 03/15 wbc a bit better today CT repeated Large pelvic abscess along the right side of the distal rectum measuring approximately 15 x 6.8 x 8.5 cm. Interval placement of drainage catheter via right transgluteal approach with pigtail probably just within the collection. Correlate with tube output. 2.0 x 1.3 cm right renal pelvis stone without marnie hydronephrosis. Additional small nonobstructing stones, as above. Cholelithiasis and gallbladder sludge. Moderate to large bilateral pleural effusions with extensive bilateral lower lobe atelectasis - issues with drain as it was not draining as it should of - surgery is disusing with radiology replacing it - IS ordered, needs to get out of bed TID with meals continue working with PT/OT 03/16 ct with drain replacement today Abscess preliminary cultures showing growth of Bacteroides fragilis - discussed with ID pharmacy- switched antibiotics to Zosyn (2) Type 2 diabetes mellitus with hyperglycemia: Code(s): E11.65 - Type 2 diabetes mellitus with hyperglycemia Status: Acute Assessment and Plan: -Resume Lantus on 03/11/25 -ACHS fingerstick glucose with SSI high dose -A1c 9.6 on 01/26/25, probably improved since then since in the hospital/acute rehab the whole time bs 83 this am -will decrease lantus to 8 units tonight 03/15- since diminished appetite- to avoid hypoglycemia 03/16 fasting bs 92 this am (3) Hypokalemia: Code(s): E87.6 - Hypokalemia Status: Acute Assessment and Plan: -replace and monitor 3.4 today monitor for now 3.1 today- will replace and monitor 03/16- 3.4- continue replacement (4) Paroxysmal atrial fibrillation with RVR: Code(s): I48.0 - Paroxysmal atrial fibrillation Status: Acute Assessment and Plan: - Anticoagulation not recommended at this time due to likely need for surgical intervention -Monitor Vital Signs Q4H and PRN - had been in [facility] (5) UTI (urinary tract infection): Qualifiers: Hematuria presence: without hematuria Urinary tract infection type: acute cystitis Qualified Code(s): N30.00 - Acute cystitis without hematuria Code(s): N39.0 - Urinary tract infection, site not specified Status: Ruled-out Assessment and Plan: -Chronic indwelling Espinoza catheter -UA appears potentially infected -Urine culture ordered -Blood cultures obtained cultures are back continue antibiotics she is on (6) Critical illness myopathy: Code(s): G72.81 - Critical illness myopathy Status: Acute Assessment and Plan: -Patient generally weak s/p prolonged, complicated hospitalization -Not making much progress at acute rehab - PT/OT ordered but pt had been refusing to work with them needs a lot of encouragement to do any activities (7) Hx of cardiac arrest: Code(s): Z86.74 - Personal history of sudden cardiac arrest Status: Acute Assessment and Plan: -Prior hospitalization complicated by cardiac arrest during procedure to place drain into intraabdominal abscess -Led to prolonged stay and significant weakness (8) Sacral decubitus ulcer: Code(s): L89.159 - Pressure ulcer of sacral region, unspecified stage Status: Acute Assessment and Plan: -Wound care consulted for apparent sacral pressure ulcers - continue antifungal barrier cream Plan PT/OT ordered prior Time Spent With Patient Time with patient: 25 - 35 minutes Subjective Date/time seen: 03/16/25 08:54 Interval history: Bharti Neal is a 74 year old female patient admitted to the hospital for findings of increased presacral intraabdominal abscess with concern for bowel perforation. She has a complex past medical history of diverticulitis, DM, HTN, cardiac arrest, septic shock, respiratory failure, abdominal abscess, anemia, hypernatremia, A-fib, hypokalemia, bilateral nephrolithiasis, hematuria, and CHF with recent prolonged admission to this facility. Patient was at [facility] and complained of left flank pain. She reported chills but no fever. No nausea/vomiting or other abdominal pain. Repeat CT scan was obtained which showed significant worsening of known intraabdominal abscess, now with air interspersed concerning for rupture of bowel. Patient admitted on IV antibiotics, NPO and surgical eval. 03/12- pt is seen and examined. Plan is to have drain placed today per radiology. 03/13 doing well. pain is better. drain in place. Resting with eyes closed. 03/14 wbc increased today drain in place, not much output. No appetite, but trying to drink supplements. no new or worsening abd pain, no chills 03/15 seen and examined. still weak, had repeated CT scan. vitals stable, no chills. Issues with drain as it was not draining as it should of. 03/16 CT today with drain replacement. needs a lot of encouragement with any activity and repositioning. Need to work with PT/OT but had been refusing. Discussed the need to do IS and work with PT/OT Review of Systems Review of Systems: All systems reviewed & are unremarkable except as noted in HPI and below Exam Narrative: GENERAL: Chronically ill-appearing, well-nourished, and in no acute distress. HEAD: Normocephalic, atraumatic. EYES: EOMI. ENT: Nares clear, no rhinorrhea or epistaxis. Mucous membranes dry. NECK: Supple. No adenopathy or masses. CHEST: Clear to auscultation. No respiratory distress. No wheezes rales or rhonchi HEART: Regular rate and rhythm. Normal peripheral pulses. ABDOMEN: Soft, a bit tender, nondistended, normal bowel sounds. Chronic Espinoza catheter in place with dark yellow/orange urine noted. EXTREMITIES: Normal range of motion with global generalized weakness, no focal deficits. No edema. SKIN: Warm, dry, no rash. Sacral pressure ulcer noted, not open NEURO: No focal deficits. Alert and oriented x3. PSYCH: Normal mood and affect Const: General: comfortable Objective Data Vital Signs Vital Signs: Vital Signs - 24 hr 03/15/25 09:19 03/15/25 09:20 03/15/25 09:20 Temperature 97.5 F L Pulse Rate 73 73 73 Respiratory Rate 16 16 Blood Pressure 121/69 Pulse Oximetry 98 98 Oxygen Delivery Room Air Fraction of Inspired Oxygen 1 03/15/25 10:18 03/15/25 10:39 03/15/25 13:39 Temperature 97.7 F Pulse Rate 75 Respiratory Rate 18 Blood Pressure 143/83 H Pulse Oximetry 96 Oxygen Delivery Room Air Room Air Fraction of Inspired Oxygen 03/15/25 19:57 03/15/25 20:00 03/15/25 21:12 Temperature 98.0 F Pulse Rate 63 63 63 Respiratory Rate 20 20 Blood Pressure 132/67 Pulse Oximetry 96 96 Oxygen Delivery Room Air Fraction of Inspired Oxygen 1 03/16/25 05:15 Temperature 97.7 F Pulse Rate 65 Respiratory Rate 20 Blood Pressure 143/73 H Pulse Oximetry 98 Oxygen Delivery Fraction of Inspired Oxygen Intake/Output Intake/Output: Intake & Output 03/13/25 03/14/25 03/15/25 03/16/25 23:59 23:59 23:59 23:59 Intake Total 2530 3220 2860 1076.7 Output Total 600 1925 150 350 Balance 1930 1295 2710 726.7 Meds/Results Medications: Active Medications Generic Name Dose Route Start Last Admin Trade Name Freq PRN Reason Stop Dose Admin Acetaminophen 650 mg 03/13/25 02:01 03/15/25 15:21 Acetaminophen 325 Mg Tablet PO 650 mg Q6H PRN Administration fever or pain Albuterol 2.5 mg 03/10/25 23:09 Albuterol Sulfate Neb 2.5 Mg/3 Ml Inh INHALATION Q6HRT PRN shortness of breath or wheezing Alprazolam 0.25 mg 03/10/25 23:09 03/15/25 21:12 Alprazolam (*Crx) 0.25 Mg Tablet PO 0.25 mg TID PRN Administration anxiety Dextrose 12.5 gm 03/10/25 23:10 Dextrose 50% 25 Gm/50 Ml Syringe IV PUSH PRN PRN Hypoglycemia Protocol Fluticasone Propionate 1 spray 03/11/25 00:29 Fluticasone Propionate 0.05% Na Spr 16 Gm Btl (*Bkc) NASAL Q12H PRN allergy symptoms Glucagon 1 mg 03/10/25 23:10 Glucagon For Inj 1 Mg Vial IM PRN PRN Hypoglycemia Protocol Glucose 15 gm 03/10/25 23:10 Glucose Oral Gel 15 Gm Of Glucse In 37.5 Gm Tube PO PRN PRN Hypoglycemia Protocol Ceftriaxone Sodium 1 gm in 50 mls @ 100 mls/hr 03/11/25 19:00 03/15/25 18:00 Rocephin 1 Gm/Ns 50 Ml IVPB 100 mls/hr Q24H [facility] Administration Metronidazole 500 mg in 100 mls @ 100 mls/hr 03/11/25 04:00 03/16/25 04:42 Flagyl 500 Mg/Iso Soln 100 Ml IVPB Infused Q8H [facility] Infusion Dextrose 1,000 mls @ 100 mls/hr 03/10/25 23:10 Dextrose 5% 1,000 Ml IVPB PRN PRN Hypoglycemia Protocol Sodium Chloride 1,000 mls @ 100 mls/hr 03/12/25 21:40 03/16/25 08:09 Normal Saline Iv IV CONT 100 mls/hr .Q10H [facility] Infusion Insulin Aspart 4 - 8 units 03/11/25 08:00 03/16/25 08:10 Insulin Aspart (*Bkc) 100 Units/Ml SUB-Q Not Given TIDWM [facility] Protocol Insulin Glargine 8 units 03/15/25 21:00 03/15/25 21:13 Insulin Glargine (*Bkc) 100 Units/Ml SUB-Q Not Given HS [facility] Magnesium Oxide 400 mg 03/14/25 09:00 03/15/25 09:21 Magnesium Oxide 400 Mg Tablet PO 400 mg DAILY [facility] Administration Metoprolol Succinate 37.5 mg 03/11/25 09:00 03/15/25 21:12 Metoprolol Succinate Ext Rel 12.5 Mg Tabcr PO 37.5 mg Q12HR [facility] Administration Miconazole Nitrate 1 applic 03/11/25 09:00 03/15/25 17:18 Miconazole Nitrate 2% Cream 30 Gm Tube TOPICAL Not Given BID [facility] Morphine Sulfate 2 mg 03/11/25 10:29 03/15/25 15:37 Morphine Sulfate (*Crx) 2 Mg/Ml Inj IV PUSH 2 mg Q2H PRN Administration Pain Rated 4-6 Morphine Sulfate 4 mg 03/11/25 10:28 03/15/25 21:13 Morphine Sulfate (*Crx) 4 Mg/Ml Inj IV PUSH 4 mg Q2H PRN Administration Pain Rated 7-10 Pantoprazole Sodium 40 mg 03/11/25 09:00 03/15/25 21:13 Pantoprazole 40 Mg Tablet PO 40 mg Q12HR [facility] Administration Simethicone 80 mg 03/12/25 02:31 03/15/25 21:12 Simethicone 80 Mg Tab.Chew PO 80 mg QID PRN Administration Gas Discomfort Sodium Chloride 10 ml 03/12/25 14:00 03/16/25 04:01 Central Line Flush IV PUSH 10 ml Q8HR [facility] Administration Sodium Chloride 10 ml 03/12/25 09:29 Central Line Flush IV PUSH PRN PRN with TPN bag changes Sodium Chloride 20 ml 03/12/25 09:29 03/16/25 04:01 Central Line Flush IV PUSH 20 ml PRN PRN Administration after blood draws Spironolactone 50 mg 03/11/25 09:00 03/15/25 17:13 Spironolactone 25 Mg Tablet PO 50 mg BID [facility] Administration Tamsulosin HCl 0.4 mg 03/11/25 09:00 03/15/25 09:21 Tamsulosin Hcl 0.4 Mg Capsule PO 0.4 mg QAM [facility] Administration Radiology Results: ITS Impressions Chest X-Ray 03/12/25 09:24 Impression: 1: Extensive stable bilateral airspace disease which may represent edema or pneumonia. 2: Bilateral pleural effusions without change. Catheter Placement CT 03/12/25 15:47 IMPRESSION: 1. Successful CT-guided abscess drainage. 2. 20 mL fluid was sent for aerobic and anaerobic cultures. 3. The catheter will be managed by Dr. Goins. Abdomen/Pelvis CT 03/15/25 06:20 Impression: Large pelvic abscess along the right side of the distal rectum measuring approximately 15 x 6.8 x 8.5 cm. Interval placement of drainage catheter via right transgluteal approach with pigtail probably just within the collection. Correlate with tube output. 2.0 x 1.3 cm right renal pelvis stone without marnie hydronephrosis. Additional small nonobstructing stones, as above. Cholelithiasis and gallbladder sludge. Moderate to large bilateral pleural effusions with extensive bilateral lower lobe atelectasis. Labs Labs: Laboratory Results - last 24 hr 03/15/25 03/15/25 03/15/25 11:43 18:03 21:10 WBC RBC Hgb Hct MCV MCH MCHC RDW Plt Count MPV Immature Gran % (Auto) Neut % (Auto) Lymph % (Auto) [place] % (Auto) Eos % (Auto) Baso % (Auto) Lymph # (Auto) [place] # (Auto) Eos # (Auto) Baso # (Auto) Abs Immat Gran (auto) Absolute Neuts (auto) Absolute Nucleated RBC Band Neutrophils % Nucleated RBC % Platelet Estimate Hypochromasia Anisocytosis Ovalocytes Schistocytes Sodium Potassium Chloride Carbon Dioxide Anion Gap BUN Creatinine Estim Creat Clear Calc Estimated GFR Glucose POC Capillary Glucose 98 92 89 Calcium Magnesium Total Bilirubin AST ALT Alkaline Phosphatase Total Protein Albumin 03/15/25 03/16/25 03/16/25 23:49 03:41 05:20 WBC 17.3 H RBC 3.39 L Hgb 9.3 L Hct 31.1 L MCV 91.7 MCH 27.4 MCHC 29.9 L RDW 23.4 H Plt Count 447 H MPV 9.1 Immature Gran % (Auto) 2.1 H Neut % (Auto) 89.7 H Lymph % (Auto) 3.8 L [place] % (Auto) 3.9 Eos % (Auto) 0.2 Baso % (Auto) 0.3 Lymph # (Auto) 0.66 L [place] # (Auto) 0.7 H Eos # (Auto) 0.0 Baso # (Auto) 0.1 Abs Immat Gran (auto) 0.36 H Absolute Neuts (auto) 15.5 H Absolute Nucleated RBC 0.000 Band Neutrophils % Not Reportable Nucleated RBC % 0.0 Platelet Estimate Increased Hypochromasia 1+ Anisocytosis 1+ Ovalocytes 1+ Schistocytes None seen Sodium 142 Potassium 3.4 Chloride 109 H Carbon Dioxide 26 Anion Gap 7 BUN 13 Creatinine 0.47 L Estim Creat Clear Calc 101 Estimated GFR > 60 Glucose 92 POC Capillary Glucose 113 H 90 Calcium 8.1 L Magnesium 1.8 Total Bilirubin 0.3 AST 14 ALT 6 Alkaline Phosphatase 98 Total Protein 5.8 L Albumin 2.3 L Quality VTE Prophylaxis VTE prophylaxis: mechanical ordered
[2025-03-16 09:43] VITALS: PULSE 69
[2025-03-16] MEDS: SPIRONOLACTONE 25 MG TABLET 50 MG PO ×2 (09:43→18:00)
[2025-03-16] MEDS: METOPROLOL SUCCINATE EXT REL 12.5 MG TABCR 37.5 MG PO ×2 (09:43→20:48)
[2025-03-16] MEDS: MAGNESIUM OXIDE 400 MG TABLET PO (09:47)
[2025-03-16] MEDS: TAMSULOSIN HCL 0.4 MG CAPSULE PO (09:47)
[2025-03-16] MEDS: MICONAZOLE NITRATE 2% CREAM 30 GM TUBE 1 APPLIC TOPICAL ×2 (09:47→18:00)
[2025-03-16] MEDS: PANTOPRAZOLE 40 MG TABLET PO ×2 (09:47→20:47)
--- NOTE | 2025-03-16 10:37 | P.CDI_ITS ---
CDI Query Clarification Request Clarification request - UTI has been documented, chronic indwelling burgos catheter documented. Please clarify if UTI is: * due to/associated with chronic indwelling burgos catheter * not due to/associated with chronic indwelling burgos catheter * unable to determine (5) UTI (urinary tract infection): Qualifiers: Hematuria presence: without hematuria Urinary tract infection type: acute cystitis Qualified Code(s): N30.00 - Acute cystitis without hematuria Code(s): N39.0 - Urinary tract infection, site not specified Status: Ruled-out Assessment and Plan: -Chronic indwelling Burgos catheter -UA appears potentially infected -Urine culture ordered -Blood cultures obtained cultures are back continue antibiotics she is on Urine Culture Final 03/13/25-1308 Q Organism 1 Escherichia Coli IV ABX ceftriaxone and Flagyl <Ivy Solis RN - Last Filed: 03/16/25 10:38> Clarified Diagnosis Clarified Diagnosis: due to/associated with chronic indwelling burgos catheter <Shari Blair APRN - Last Filed: 03/16/25 13:14>
[2025-03-16] MEDS: ALPRAZolam (*CRX) 0.25 MG TABLET PO ×2 (10:48→18:02)
[2025-03-16] MEDS: PIPERACILLN/TAZ 3.375GM/NS50ML 3.375 GM/50 ML BAG IVPB ×3 (10:49→23:39)
[2025-03-16 12:07] LABS: Glucose Point of Care 96 mg/dl (65-105)
--- NOTE | 2025-03-16 12:32 | P.PNGS_ITS ---
Progress Note: A&P Assessment and Plan (1) Intra-abdominal abscess: Code(s): K65.1 - Peritoneal abscess Status: Acute Assessment and Plan: * Plan to replace broken transgluteal perc drain in IR today or tomorrow, depending on IR schedule. Possibility of also placing a second drain anteriorly into the abscess. * Continue IV antibiotics. Abscess preliminary cultures showing growth of Bacteroides fragilis, continue to follow. Plan I have discussed the patient's case and plan of care with Dr. Goins. Subjective Subjective Date/Time Seen: 03/16/25 12:32 Interval history: Complaints of rectal pain today. She reports her back pain is better. No abdominal pain, nausea, or vomiting. No other complaints at this time. No acute events overnight. White blood cell count down to 17,000 today. Exam Const: General: comfortable and no acute distress Orientation/consciousness: patient oriented x3 GI: Inspection: non-distended GI Palp: Yes Soft to palpation, Yes Tenderness to palpation present (GI) (Suprapubic tenderness), Yes Guarding due to palpation present (GI) (Voluntary guarding in the suprapubic area) and No Rebound tenderness present Auscultation: normal bowel sounds Other: Percutaneous transgluteal drain is broken with an ostomy appliance over the drain collecting scant purulence drainage coming through the drain Objective Data Vital Signs Vital Signs: Vital Signs - 24 hr 03/15/25 13:39 03/15/25 19:57 03/15/25 20:00 Temperature 97.7 F 98.0 F Pulse Rate 75 63 63 Respiratory Rate 18 20 20 Blood Pressure 143/83 H 132/67 Pulse Oximetry 96 96 96 Oxygen Delivery Room Air Fraction of Inspired Oxygen 1 03/15/25 21:12 03/16/25 05:15 03/16/25 09:43 Temperature 97.7 F Pulse Rate 63 65 69 Respiratory Rate 20 Blood Pressure 143/73 H Pulse Oximetry 98 Oxygen Delivery Fraction of Inspired Oxygen Intake/Output Intake/Output: Intake & Output 03/13/25 03/14/25 03/15/25 03/16/25 23:59 23:59 23:59 23:59 Intake Total 2530 3220 2860 1241.7 Output Total 600 1925 150 350 Balance 1930 1295 2710 891.7 Meds/Results Medications: Active Medications Generic Name Dose Route Start Last Admin Trade Name Freq PRN Reason Stop Dose Admin Acetaminophen 650 mg 03/13/25 02:01 03/15/25 15:21 Acetaminophen 325 Mg Tablet PO 650 mg Q6H PRN Administration fever or pain Albuterol 2.5 mg 03/10/25 23:09 Albuterol Sulfate Neb 2.5 Mg/3 Ml Inh INHALATION Q6HRT PRN shortness of breath or wheezing Alprazolam 0.25 mg 03/10/25 23:09 03/16/25 10:48 Alprazolam (*Crx) 0.25 Mg Tablet PO 0.25 mg TID PRN Administration anxiety Dextrose 12.5 gm 03/10/25 23:10 Dextrose 50% 25 Gm/50 Ml Syringe IV PUSH PRN PRN Hypoglycemia Protocol Fluticasone Propionate 1 spray 03/11/25 00:29 Fluticasone Propionate 0.05% Na Spr 16 Gm Btl (*Bkc) NASAL Q12H PRN allergy symptoms Glucagon 1 mg 03/10/25 23:10 Glucagon For Inj 1 Mg Vial IM PRN PRN Hypoglycemia Protocol Glucose 15 gm 03/10/25 23:10 Glucose Oral Gel 15 Gm Of Glucse In 37.5 Gm Tube PO PRN PRN Hypoglycemia Protocol Dextrose 1,000 mls @ 100 mls/hr 03/10/25 23:10 Dextrose 5% 1,000 Ml IVPB PRN PRN Hypoglycemia Protocol Sodium Chloride 1,000 mls @ 100 mls/hr 03/12/25 21:40 03/16/25 09:48 Normal Saline Iv IV CONT 100 mls/hr .Q10H KANDIS Administration Piperacillin/Tazobactam/Dextrose 3.375 gm in 50 mls @ 100 mls/hr 03/16/25 12:00 03/16/25 10:49 Zosyn 3.375 Gm/Ns 50 Ml IVPB 100 mls/hr Q6HR KANDIS Administration Insulin Aspart 4 - 8 units 03/11/25 08:00 03/16/25 08:10 Insulin Aspart (*Bkc) 100 Units/Ml SUB-Q Not Given TIDWM [facility] Protocol Insulin Glargine 8 units 03/15/25 21:00 03/15/25 21:13 Insulin Glargine (*Bkc) 100 Units/Ml SUB-Q Not Given HS [facility] Magnesium Oxide 400 mg 03/14/25 09:00 03/16/25 09:47 Magnesium Oxide 400 Mg Tablet PO 400 mg DAILY KANDIS Administration Metoprolol Succinate 37.5 mg 03/11/25 09:00 03/16/25 09:43 Metoprolol Succinate Ext Rel 12.5 Mg Tabcr PO 37.5 mg Q12HR KANDIS Administration Miconazole Nitrate 1 applic 03/11/25 09:00 03/16/25 09:47 Miconazole Nitrate 2% Cream 30 Gm Tube TOPICAL 1 applic BID KANDIS Administration Morphine Sulfate 2 mg 03/11/25 10:29 03/15/25 15:37 Morphine Sulfate (*Crx) 2 Mg/Ml Inj IV PUSH 2 mg Q2H PRN Administration Pain Rated 4-6 Morphine Sulfate 4 mg 03/11/25 10:28 03/15/25 21:13 Morphine Sulfate (*Crx) 4 Mg/Ml Inj IV PUSH 4 mg Q2H PRN Administration Pain Rated 7-10 Pantoprazole Sodium 40 mg 03/11/25 09:00 03/16/25 09:47 Pantoprazole 40 Mg Tablet PO 40 mg Q12HR KANDIS Administration Simethicone 80 mg 03/12/25 02:31 03/15/25 21:12 Simethicone 80 Mg Tab.Chew PO 80 mg QID PRN Administration Gas Discomfort Sodium Chloride 10 ml 03/12/25 14:00 03/16/25 04:01 Central Line Flush IV PUSH 10 ml Q8HR KANDIS Administration Sodium Chloride 10 ml 03/12/25 09:29 Central Line Flush IV PUSH PRN PRN with TPN bag changes Sodium Chloride 20 ml 03/12/25 09:29 03/16/25 04:01 Central Line Flush IV PUSH 20 ml PRN PRN Administration after blood draws Spironolactone 50 mg 03/11/25 09:00 03/16/25 09:43 Spironolactone 25 Mg Tablet PO 50 mg BID KANDIS Administration Tamsulosin HCl 0.4 mg 03/11/25 09:00 03/16/25 09:47 Tamsulosin Hcl 0.4 Mg Capsule PO 0.4 mg QAM KANDIS Administration Radiology Results: ITS Impressions Chest X-Ray 03/12/25 09:24 Impression: 1: Extensive stable bilateral airspace disease which may represent edema or pneumonia. 2: Bilateral pleural effusions without change. Catheter Placement CT 03/12/25 15:[address]ION: 1[address] Successful CT-guided abscess drainage. 2. 20 mL fluid was sent for aerobic and anaerobic cultures. 3. The catheter will be managed by Dr. Goins. Abdomen/Pelvis CT 03/15/25 06:20 Impression: Large pelvic abscess along the right side of the distal rectum measuring ap proximately 15 x 6.8 x 8.5 cm. Interval placement of drainage catheter via right transgluteal approach with pigtail probably just within the collection. Correlate with tube output. 2.0 x 1.3 cm right renal pelvis stone without marnie hydronephrosis. Additional small nonobstructing stones, as above. Cholelithiasis and gallbladder sludge. Moderate to large bilateral pleural effusions with extensive bilateral lower lobe atelectasis. Labs Labs: Laboratory Results - last 24 hr 03/15/25 03/15/25 03/15/25 18:03 21:10 23:49 WBC RBC Hgb Hct MCV MCH MCHC RDW Plt Count MPV Immature Gran % (Auto) Neut % (Auto) Lymph % (Auto) [place] % (Auto) Eos % (Auto) Baso % (Auto) Lymph # (Auto) [place] # (Auto) Eos # (Auto) Baso # (Auto) Abs Immat Gran (auto) Absolute Neuts (auto) Absolute Nucleated RBC Band Neutrophils % Nucleated RBC % Platelet Estimate Hypochromasia Anisocytosis Ovalocytes Schistocytes Sodium Potassium Chloride Carbon Dioxide Anion Gap BUN Creatinine Estim Creat Clear Calc Estimated GFR Glucose POC Capillary Glucose 92 89 113 H Calcium Magnesium Total Bilirubin AST ALT Alkaline Phosphatase Total Protein Albumin 03/16/25 03/16/25 03/16/25 03:41 05:20 11:55 WBC 17.3 H RBC 3.39 L Hgb 9.3 L Hct 31.1 L MCV 91.7 MCH 27.4 MCHC 29.9 L RDW 23.4 H Plt Count 447 H MPV 9.1 Immature Gran % (Auto) 2.1 H Neut % (Auto) 89.7 H Lymph % (Auto) 3.8 L [place] % (Auto) 3.9 Eos % (Auto) 0.2 Baso % (Auto) 0.3 Lymph # (Auto) 0.66 L [place] # (Auto) 0.7 H Eos # (Auto) 0.0 Baso # (Auto) 0.1 Abs Immat Gran (auto) 0.36 H Absolute Neuts (auto) 15.5 H Absolute Nucleated RBC 0.000 Band Neutrophils % Not Reportable Nucleated RBC % 0.0 Platelet Estimate Increased Hypochromasia 1+ Anisocytosis 1+ Ovalocytes 1+ Schistocytes None seen Sodium 142 Potassium 3.4 Chloride 109 H Carbon Dioxide 26 Anion Gap 7 BUN 13 Creatinine 0.47 L Estim Creat Clear Calc 101 Estimated GFR > 60 Glucose 92 POC Capillary Glucose 90 96 Calcium 8.1 L Magnesium 1.8 Total Bilirubin 0.3 AST 14 ALT 6 Alkaline Phosphatase 98 Total Protein 5.8 L Albumin 2.3 L
[2025-03-16 14:00] VITALS: BP 139/57; PULSE 67; RESP 20; TEMP 36.4; O2SAT 97
[2025-03-16] MEDS: MORPHINE SULFATE (*CRX) 2 MG/ML INJ IV PUSH (15:01)
[2025-03-16] MEDS: ACETAMINOPHEN 325 MG TABLET 650 MG PO (18:01)
[2025-03-16 18:09] LABS: Glucose Point of Care 111 mg/dl (65-105)
[2025-03-16 19:58] VITALS: BP 102/57; PULSE 79; RESP 20; TEMP 36.5; O2SAT 96
[2025-03-16 20:48] VITALS: PULSE 79
[2025-03-16] MEDS: SIMETHICONE 80 MG TAB.CHEW PO (20:48)
[2025-03-16] MEDS: MORPHINE SULFATE (*CRX) 4 MG/ML INJ IV PUSH (20:49)
[2025-03-17 00:12] LABS: Glucose Point of Care 107 mg/dl (65-105)
[2025-03-17 00:12] LABS: Glucose Point of Care 98 mg/dl (65-105)
[2025-03-17 03:30] VITALS: BP 119/62; PULSE 70; RESP 20; TEMP 36.5; O2SAT 95
[2025-03-17] MEDS: SODIUM CHLORIDE 0.9% IV 1,000 ML 100 ML IV CONT (04:49)
[2025-03-17 05:09] LABS: Glucose Point of Care 108 mg/dl (65-105)
[2025-03-17] MEDS: PIPERACILLN/TAZ 3.375GM/NS50ML 3.375 GM/50 ML BAG IVPB ×4 (05:28→23:35)
[2025-03-17] MEDS: CENTRAL LINE FLUSH 10 ML IV PUSH ×3 (06:09→21:08)
[2025-03-17 06:19] LABS: Basophils Absolute Auto 0.1 K/mm3 (0.0-0.1); Basophils Percent Auto 0.3 % (0.2-1.2); Hematocrit 31.3 % (37.0-47.0); Hemoglobin 9.6 g/dL (12.0-15.0); Immature Granulocyte Absolute 0.47 K/mm3 (0.00-0.031); Immature Granulocyte Percent A 1.6 % (0-0.5); Lymphocytes Absolute Auto 0.44 K/mm3 (0.9-3.2); Lymphocytes Percent Auto 1.5 % (18.3-44.2); Mean Corpuscular HGB Conc 30.7 g/dl (32-36); Mean Corpuscular Hemoglobin 27.9 pg (26-34); Monocytes Absolute Auto 0.4 K/mm3 (0.1-0.6); Monocytes Percent Auto 1.3 % (2.6-8.5); Neutrophils Absolute Auto 27.4 K/mm3 (1.3-6.7); Neutrophils Percent Auto 95.3 % (45.5-73.1); Platelet Count Result 439 k/mm3 (150-375); Red Blood Count 3.44 M/mm3 (4.2-5.4); Red Cell Distribution Width 23.7 % (11.5-14.5); White Blood Count 28.7 K/mm3 (4.5-10.0)
[2025-03-17 06:30] LABS: Alanine Aminotransferase 6 U/L (6-35); Albumin Level 2.1 g/dL (3.5-5.1); Alkaline Phosphatase 104 U/L (38-126); Anion Gap 9 mmol/L (4-12); Aspartate Amino Transferase 14 U/L (14-36); Bilirubin,Total 0.4 mg/dL (0.2-1.3); Blood Urea Nitrogen 12 mg/dL (7-17); Carbon Dioxide 23 mmol/L (22-30); Chloride 110 mmol/L (98-107); Estimated CRCL calculation 88 ml/min; Estimated Glomerular Filt Rate > 60; Glucose 116 mg/dL (65-110); Magnesium 1.7 mg/dL (1.6-2.3); Potassium 3.3 mmol/L (3.4-5.0); Sodium 142 mmol/L (137-145); Total Protein 5.5 g/dL (6.3-8.2)
[2025-03-17 07:00] LABS: Anisocytosis 2+; Platelet Estimate Increased (Adequate); Schistocytes None Seen
[2025-03-17 08:12] LABS: Glucose Point of Care 105 mg/dl (65-105)
--- NOTE | 2025-03-17 08:15 | PM.IMPN ---
Progress Note: A&P Assessment and Plan (1) Intra-abdominal abscess: Code(s): K65.1 - Peritoneal abscess Status: Acute Assessment and Plan: -Prior intraabdominal abscess s/p drain placement with complications related to diverticulitis was known -Repeat CT due to Left flank pain showed worsening of abscess and concern for bowel perforation due to extraluminal gas on CT -ER started Rocephin and Flagyl -General surgery consulted 03/12 - schedule for drain placement today with radiology continue ceftriaxone 1gm q24h, flagyl 500 mg q8h - drain is placed 03/12 pain is better -03/14 wbc increased-20.3 today on ceftriaxone -will continue for now 03/15 wbc a bit better today CT repeated Large pelvic abscess along the right side of the distal rectum measuring approximately 15 x 6.8 x 8.5 cm. Interval placement of drainage catheter via right transgluteal approach with pigtail probably just within the collection. Correlate with tube output. 2.0 x 1.3 cm right renal pelvis stone without marnie hydronephrosis. Additional small nonobstructing stones, as above. Cholelithiasis and gallbladder sludge. Moderate to large bilateral pleural effusions with extensive bilateral lower lobe atelectasis - issues with drain as it was not draining as it should of - surgery is disusing with radiology replacing it - IS ordered, needs to get out of bed TID with meals continue working with PT/OT 03/16 ct with drain replacement today Abscess preliminary cultures showing growth of Bacteroides fragilis - discussed with ID pharmacy- switched antibiotics to Zosyn 03/17: IR drain placement today via surg. Replace perc drain vs place second drain -Continue Zosyn for abscess final cultures yielding growth of Bacteroides fragilis -Encouraged IS use and participation in PT/OT -WBC today: 28.7, up from 17.3 yesterday, continue to trend (2) Type 2 diabetes mellitus with hyperglycemia: Code(s): E11.65 - Type 2 diabetes mellitus with hyperglycemia Status: Acute Assessment and Plan: -Resume Lantus on 03/11/25 -ACHS fingerstick glucose with SSI high dose -A1c 9.6 on 01/26/25, probably improved since then since in the hospital/acute rehab the whole time bs 83 this am -decreased lantus to 8 units tonight 03/15- since diminished appetite- to avoid hypoglycemia 03/17 fasting bs 105 this am (3) Hypokalemia: Code(s): E87.6 - Hypokalemia Status: Acute Assessment and Plan: -replace and monitor 3.4 today monitor for now 3.1 today- will replace and monitor 03/16- 3.4- continue replacement 03/17: 3.3, continue to monitor with daily labs (4) Paroxysmal atrial fibrillation with RVR: Code(s): I48.0 - Paroxysmal atrial fibrillation Status: Acute Assessment and Plan: -Anticoagulation not recommended at this time due to likely need for surgical intervention (IR today) -Monitor Vital Signs Q4H and PRN -Has been in NST (5) UTI (urinary tract infection): Qualifiers: Hematuria presence: without hematuria Urinary tract infection type: acute cystitis Qualified Code(s): N30.00 - Acute cystitis without hematuria Code(s): N39.0 - Urinary tract infection, site not specified Status: Ruled-out Assessment and Plan: -Chronic indwelling Espinoza catheter -UA appears potentially infected -Urine culture ordered, E coli -Blood cultures obtained, pending -cultures are back -continue antibiotics she is on (6) Critical illness myopathy: Code(s): G72.81 - Critical illness myopathy Status: Acute Assessment and Plan: -Patient generally weak s/p prolonged, complicated hospitalization -Not making much progress at acute rehab - PT/OT ordered but pt had been refusing to work with them, encouraged her again today to participate needs a lot of encouragement to do any activities (7) Hx of cardiac arrest: Code(s): Z86.74 - Personal history of sudden cardiac arrest Status: Acute Assessment and Plan: -Prior hospitalization complicated by cardiac arrest during procedure to place drain into intraabdominal abscess -Led to prolonged stay and significant weakness (8) Sacral decubitus ulcer: Code(s): L89.159 - Pressure ulcer of sacral region, unspecified stage Status: Acute Assessment and Plan: -Wound care consulted for apparent sacral pressure ulcers -Continue antifungal barrier cream Plan PT/OT ordered prior, continue IS Subjective Date/time seen: 03/17/25 1057 Interval history: Bharti Neal is a 74 year old female patient admitted to the hospital for findings of increased presacral intraabdominal abscess with concern for bowel perforation. She has a complex past medical history of diverticulitis, DM, HTN, cardiac arrest, septic shock, respiratory failure, abdominal abscess, anemia, hypernatremia, A-fib, hypokalemia, bilateral nephrolithiasis, hematuria, and CHF with recent prolonged admission to this facility. Patient was at [facility] and complained of left flank pain. She reported chills but no fever. No nausea/vomiting or other abdominal pain. Repeat CT scan was obtained which showed significant worsening of known intraabdominal abscess, now with air interspersed concerning for rupture of bowel. Patient admitted on IV antibiotics, NPO and surgical eval. 03/12- pt is seen and examined. Plan is to have drain placed today per radiology. 03/13 doing well. pain is better. drain in place. Resting with eyes closed. 03/14 wbc increased today drain in place, not much output. No appetite, but trying to drink supplements. no new or worsening abd pain, no chills 03/15 seen and examined. still weak, had repeated CT scan. vitals stable, no chills. Issues with drain as it was not draining as it should of. 03/16 CT today with drain replacement. needs a lot of encouragement with any activity and repositioning. Need to work with PT/OT but had been refusing. Discussed the need to do IS and work with PT/OT 03/17: IR to replace perc drain / second drain placement today per their schedule. Visited with pt today, states that she is tired of this process but does see why it is necessary. She states that she is feeling OK and only reports pain in her suprapubic abd when touched. I encouraged her today to continue to use her IS as well as participate with therapy and the importance of each, pt agreeable. Review of Systems Review of Systems: All systems reviewed & are unremarkable except as noted in HPI and below Exam Const: General: comfortable and no acute distress Other: Chronically ill-appearing, obses HENMT: Face/Nose/Sinus: Normal nares present Mouth: Yes moist mucous membranes Eyes: General: appearance normal, both eyes and all related structures Sclera: sclerae normal Neck: Neck: supple and no JVD Resp: Effort & Inspection: normal respiratory effort Auscultation: diminished lung sounds (throughout) Cardio: Rate: regular rate Rhythm: regular rhythm GI: Inspection: non-distended Auscultation: normal bowel sounds Other: TTP mild to suprapubic area Urinary Catheter: Urinary Catheter: patent and draining and urine dark Skin: General skin exam: normal color Other: Sacral/L buttock pressure maceration noted, not open, antifungal cream applied Neuro: Speech: normal speech Motor exam (neuro): Normal motor muscle tone present throughout Sensory Exam: normal sensation Extrem: General: normal to inspection Psych: Mental Status: mental status grossly normal Affect: normal affect Objective Data Vital Signs Vital Signs: Vital Signs - 24 hr 03/16/25 09:43 03/16/25 14:00 03/16/25 19:58 Temperature 97.5 F L 97.7 F Pulse Rate 69 67 79 Respiratory Rate 20 20 Blood Pressure 139/57 L 102/57 L Pulse Oximetry 97 96 Oxygen Delivery 03/16/25 20:00 03/16/25 20:48 03/17/25 03:30 Temperature 97.7 F Pulse Rate 79 70 Respiratory Rate 20 Blood Pressure 119/62 Pulse Oximetry 95 Oxygen Delivery Room Air Intake/Output Intake/Output: Intake & Output 03/14/25 03/15/25 03/16/25 03/17/25 23:59 23:59 23:59 23:59 Intake Total 3220 2860 2166.7 1240 Output Total 1925 150 600 400 Balance 1295 2710 1566.7 840 Meds/Results Medications: Active Medications Generic Name Dose Route Start Last Admin Trade Name Freq PRN Reason Stop Dose Admin Acetaminophen 650 mg 03/13/25 02:01 03/16/25 18:01 Acetaminophen 325 Mg Tablet PO 650 mg Q6H PRN Administration fever or pain Albuterol 2.5 mg 03/10/25 23:09 Albuterol Sulfate Neb 2.5 Mg/3 Ml Inh INHALATION Q6HRT PRN shortness of breath or wheezing Alprazolam 0.25 mg 03/10/25 23:09 03/16/25 18:02 Alprazolam (*Crx) 0.25 Mg Tablet PO 0.25 mg TID PRN Administration anxiety Dextrose 12.5 gm 03/10/25 23:10 Dextrose 50% 25 Gm/50 Ml Syringe IV PUSH PRN PRN Hypoglycemia Protocol Fluticasone Propionate 1 spray 03/11/25 00:29 Fluticasone Propionate 0.05% Na Spr 16 Gm Btl (*Bkc) NASAL Q12H PRN allergy symptoms Glucagon 1 mg 03/10/25 23:10 Glucagon For Inj 1 Mg Vial IM PRN PRN Hypoglycemia Protocol Glucose 15 gm 03/10/25 23:10 Glucose Oral Gel 15 Gm Of Glucse In 37.5 Gm Tube PO PRN PRN Hypoglycemia Protocol Dextrose 1,000 mls @ 100 mls/hr 03/10/25 23:10 Dextrose 5% 1,000 Ml IVPB PRN PRN Hypoglycemia Protocol Sodium Chloride 1,000 mls @ 50 mls/hr 03/12/25 21:40 03/17/25 04:49 Normal Saline Iv IV CONT 100 mls/hr .Q20H KANDIS Administration Piperacillin/Tazobactam/Dextrose 3.375 gm in 50 mls @ 100 mls/hr 03/16/25 12:00 03/17/25 05:58 Zosyn 3.375 Gm/Ns 50 Ml IVPB Infused Q6HR KANDIS Infusion Insulin Aspart 4 - 8 units 03/11/25 08:00 03/16/25 18:00 Insulin Aspart (*Bkc) 100 Units/Ml SUB-Q Not Given TIDWM [facility] Protocol Insulin Glargine 8 units 03/15/25 21:00 03/16/25 20:59 Insulin Glargine (*Bkc) 100 Units/Ml SUB-Q Not Given HS [facility] Magnesium Oxide 400 mg 03/14/25 09:00 03/16/25 09:47 Magnesium Oxide 400 Mg Tablet PO 400 mg DAILY KANDIS Administration Metoprolol Succinate 37.5 mg 03/11/25 09:00 03/16/25 20:48 Metoprolol Succinate Ext Rel 12.5 Mg Tabcr PO 37.5 mg Q12HR KANDIS Administration Miconazole Nitrate 1 applic 03/11/25 09:00 03/16/25 18:00 Miconazole Nitrate 2% Cream 30 Gm Tube TOPICAL 1 applic BID KANDIS Administration Morphine Sulfate 2 mg 03/11/25 10:29 03/16/25 15:01 Morphine Sulfate (*Crx) 2 Mg/Ml Inj IV PUSH 2 mg Q2H PRN Administration Pain Rated 4-6 Morphine Sulfate 4 mg 03/11/25 10:28 03/16/25 20:49 Morphine Sulfate (*Crx) 4 Mg/Ml Inj IV PUSH 4 mg Q2H PRN Administration Pain Rated 7-10 Pantoprazole Sodium 40 mg 03/11/25 09:00 03/16/25 20:47 Pantoprazole 40 Mg Tablet PO 40 mg Q12HR KANDIS Administration Simethicone 80 mg 03/12/25 02:31 03/16/25 20:48 Simethicone 80 Mg Tab.Chew PO 80 mg QID PRN Administration Gas Discomfort Sodium Chloride 10 ml 03/12/25 14:00 03/17/25 06:09 Central Line Flush IV PUSH 10 ml Q8HR KANDIS Administration Sodium Chloride 10 ml 03/12/25 09:29 Central Line Flush IV PUSH PRN PRN with TPN bag changes Sodium Chloride 20 ml 03/12/25 09:29 03/16/25 04:01 Central Line Flush IV PUSH 20 ml PRN PRN Administration after blood draws Spironolactone 50 mg 03/11/25 09:00 03/16/25 18:00 Spironolactone 25 Mg Tablet PO 50 mg BID KANDIS Administration Tamsulosin HCl 0.4 mg 03/11/25 09:00 03/16/25 09:47 Tamsulosin Hcl 0.4 Mg Capsule PO 0.4 mg QAM KANDIS Administration Radiology Results: ITS Impressions Chest X-Ray 03/12/25 09:24 Impression: 1: Extensive stable bilateral airspace disease which may represent edema or pneumonia. 2: Bilateral pleural effusions without change. Catheter Placement CT 03/12/25 15:47 IMPRESSION: 1. Successful CT-guided abscess drainage. 2. 20 mL fluid was sent for aerobic and anaerobic cultures. 3. The catheter will be managed by Dr. Goins. Abdomen/Pelvis CT 03/15/25 06:20 Impression: Large pelvic abscess along the right side of the distal rectum measuring approximately 15 x 6.8 x 8.5 cm. Interval placement of drainage catheter via right transgluteal approach with pigtail probably just within the collection. Correlate with tube output. 2.0 x 1.3 cm right renal pelvis stone without marnie hydronephrosis. Additional small nonobstructing stones, as above. Cholelithiasis and gallbladder sludge. Moderate to large bilateral pleural effusions with extensive bilateral lower lobe atelectasis. Labs Labs: Laboratory Results - last 24 hr 03/16/25 03/16/25 03/16/25 11:55 18:02 20:31 WBC RBC Hgb Hct MCV MCH MCHC RDW Plt Count MPV Immature Gran % (Auto) Neut % (Auto) Lymph % (Auto) [place] % (Auto) Eos % (Auto) Baso % (Auto) Lymph # (Auto) [place] # (Auto) Eos # (Auto) Baso # (Auto) Abs Immat Gran (auto) Absolute Neuts (auto) Absolute Nucleated RBC Band Neutrophils % Nucleated RBC % Platelet Estimate Anisocytosis Schistocytes Sodium Potassium Chloride Carbon Dioxide Anion Gap BUN Creatinine Estim Creat Clear Calc Estimated GFR Glucose POC Capillary Glucose 96 111 H 98 Calcium Magnesium Total Bilirubin AST ALT Alkaline Phosphatase Total Protein Albumin 03/17/25 03/17/25 03/17/25 00:02 03:34 06:08 WBC 28.7 H RBC 3.44 L Hgb 9.6 L Hct 31.3 L MCV 91.0 MCH 27.9 MCHC 30.7 L RDW 23.7 H Plt Count 439 H MPV 9.0 Immature Gran % (Auto) 1.6 H Neut % (Auto) 95.3 H Lymph % (Auto) 1.5 L [place] % (Auto) 1.3 L Eos % (Auto) 0.0 Baso % (Auto) 0.3 Lymph # (Auto) 0.44 L [place] # (Auto) 0.4 Eos # (Auto) 0.0 Baso # (Auto) 0.1 Abs Immat Gran (auto) 0.47 H Absolute Neuts (auto) 27.4 H Absolute Nucleated RBC 0.000 Band Neutrophils % Not Reportable Nucleated RBC % 0.0 Platelet Estimate Increased Anisocytosis 2+ Schistocytes None seen Sodium 142 Potassium 3.3 L Chloride 110 H Carbon Dioxide 23 Anion Gap 9 BUN 12 Creatinine 0.55 L Estim Creat Clear Calc 88 Estimated GFR > 60 Glucose 116 H POC Capillary Glucose 107 H 108 H Calcium 8.0 L Magnesium 1.7 Total Bilirubin 0.4 AST 14 ALT 6 Alkaline Phosphatase 104 Total Protein 5.5 L Albumin 2.1 L 03/17/25 07:35 WBC RBC Hgb Hct MCV MCH MCHC RDW Plt Count MPV Immature Gran % (Auto) Neut % (Auto) Lymph % (Auto) [place] % (Auto) Eos % (Auto) Baso % (Auto) Lymph # (Auto) [place] # (Auto) Eos # (Auto) Baso # (Auto) Abs Immat Gran (auto) Absolute Neuts (auto) Absolute Nucleated RBC Band Neutrophils % Nucleated RBC % Platelet Estimate Anisocytosis Schistocytes Sodium Potassium Chloride Carbon Dioxide Anion Gap BUN Creatinine Estim Creat Clear Calc Estimated GFR Glucose POC Capillary Glucose 105 Calcium Magnesium Total Bilirubin AST ALT Alkaline Phosphatase Total Protein Albumin Quality VTE Prophylaxis VTE prophylaxis: mechanical ordered
[2025-03-17 09:15] VITALS: BP 123/65; PULSE 66; O2SAT 96
[2025-03-17 09:16] VITALS: PULSE 66
[2025-03-17] MEDS: METOPROLOL SUCCINATE EXT REL 12.5 MG TABCR 37.5 MG PO ×2 (09:16→21:05)
--- NOTE | 2025-03-17 09:17 | P.PNGS_ITS ---
Progress Note: A&P Assessment and Plan (1) Intra-abdominal abscess: Code(s): K65.1 - Peritoneal abscess Status: Acute Assessment and Plan: * IR planning to replace broken perc drain today and possibly placing a second anterior drain. * Continue IV antibiotics. Abscess preliminary cultures showing growth of Bacteroides fragilis, continue to follow. * Will resume her diet with Ensure compact supplements after drainage procedure. Plan I have discussed the patient's case and plan of care with Dr. Goins. Subjective Subjective Date/Time Seen: 03/17/25 09:17 Interval history: No acute changes overnight. Still has some rectal pain, which is unchanged. No specific complaints at this time. Still not eating much when she does have a diet. Less than 50% of meals typically. She does not like the taste of Ensure, but is willing to try Ensure compact as there is less volume. Albumin remains low at 2.1. Exam Const: General: comfortable and no acute distress Orientation/consciousness: patient oriented x3 GI: Inspection: non-distended GI Palp: Yes Soft to palpation, Yes Tenderness to palpation present (GI) (Suprapubic), Yes Guarding due to palpation present (GI) (Suprapubic, no diffuse peritoneal) and No Rebound tenderness present Auscultation: normal bowel sounds Other: Percutaneous drain not evaluated as it is transgluteal with an ostomy appliance over the drain and she is lying supine Objective Data Vital Signs Vital Signs: Vital Signs - 24 hr 03/16/25 09:43 03/16/25 14:00 03/16/25 19:58 Temperature 97.5 F L 97.7 F Pulse Rate 69 67 79 Respiratory Rate 20 20 Blood Pressure 139/57 L 102/57 L Pulse Oximetry 97 96 Oxygen Delivery 03/16/25 20:00 03/16/25 20:48 03/17/25 03:30 Temperature 97.7 F Pulse Rate 79 70 Respiratory Rate 20 Blood Pressure 119/62 Pulse Oximetry 95 Oxygen Delivery Room Air 03/17/25 09:15 Temperature Pulse Rate 66 Respiratory Rate Blood Pressure 123/65 Pulse Oximetry 96 Oxygen Delivery Intake/Output Intake/Output: Intake & Output 03/14/25 03/15/25 03/16/25 03/17/25 23:59 23:59 23:59 23:59 Intake Total 3220 2860 2166.7 1240 Output Total 1925 150 600 400 Balance 1295 2710 1566.7 840 Meds/Results Medications: Active Medications Generic Name Dose Route Start Last Admin Trade Name Freq PRN Reason Stop Dose Admin Acetaminophen 650 mg 03/13/25 02:01 03/16/25 18:01 Acetaminophen 325 Mg Tablet PO 650 mg Q6H PRN Administration fever or pain Albuterol 2.5 mg 03/10/25 23:09 Albuterol Sulfate Neb 2.5 Mg/3 Ml Inh INHALATION Q6HRT PRN shortness of breath or wheezing Alprazolam 0.25 mg 03/10/25 23:09 03/16/25 18:02 Alprazolam (*Crx) 0.25 Mg Tablet PO 0.25 mg TID PRN Administration anxiety Dextrose 12.5 gm 03/10/25 23:10 Dextrose 50% 25 Gm/50 Ml Syringe IV PUSH PRN PRN Hypoglycemia Protocol Fluticasone Propionate 1 spray 03/11/25 00:29 Fluticasone Propionate 0.05% Na Spr 16 Gm Btl (*Bkc) NASAL Q12H PRN allergy symptoms Glucagon 1 mg 03/10/25 23:10 Glucagon For Inj 1 Mg Vial IM PRN PRN Hypoglycemia Protocol Glucose 15 gm 03/10/25 23:10 Glucose Oral Gel 15 Gm Of Glucse In 37.5 Gm Tube PO PRN PRN Hypoglycemia Protocol Dextrose 1,000 mls @ 100 mls/hr 03/10/25 23:10 Dextrose 5% 1,000 Ml IVPB PRN PRN Hypoglycemia Protocol Sodium Chloride 1,000 mls @ 50 mls/hr 03/12/25 21:40 03/17/25 04:49 Normal Saline Iv IV CONT 100 mls/hr .Q20H KANDIS Administration Piperacillin/Tazobactam/Dextrose 3.375 gm in 50 mls @ 100 mls/hr 03/16/25 12:00 03/17/25 05:58 Zosyn 3.375 Gm/Ns 50 Ml IVPB Infused Q6HR KANDIS Infusion Insulin Aspart 4 - 8 units 03/11/25 08:00 03/17/25 08:51 Insulin Aspart (*Bkc) 100 Units/Ml SUB-Q Not Given TIDWM KANDIS Protocol Insulin Glargine 8 units 03/15/25 21:00 03/16/25 20:59 Insulin Glargine (*Bkc) 100 Units/Ml SUB-Q Not Given HS KANDIS Magnesium Oxide 400 mg 03/14/25 09:00 03/16/25 09:47 Magnesium Oxide 400 Mg Tablet PO 400 mg DAILY KANDIS Administration Metoprolol Succinate 37.5 mg 03/11/25 09:00 03/16/25 20:48 Metoprolol Succinate Ext Rel 12.5 Mg Tabcr PO 37.5 mg Q12HR KANDIS Administration Miconazole Nitrate 1 applic 03/11/25 09:00 03/16/25 18:00 Miconazole Nitrate 2% Cream 30 Gm Tube TOPICAL 1 applic BID [facility] Administration Morphine Sulfate 2 mg 03/11/25 10:29 03/16/25 15:01 Morphine Sulfate (*Crx) 2 Mg/Ml Inj IV PUSH 2 mg Q2H PRN Administration Pain Rated 4-6 Morphine Sulfate 4 mg 03/11/25 10:28 03/16/25 20:49 Morphine Sulfate (*Crx) 4 Mg/Ml Inj IV PUSH 4 mg Q2H PRN Administration Pain Rated 7-10 Pantoprazole Sodium 40 mg 03/11/25 09:00 03/16/25 20:47 Pantoprazole 40 Mg Tablet PO 40 mg Q12HR KANDIS Administration Simethicone 80 mg 03/12/25 02:31 03/16/25 20:48 Simethicone 80 Mg Tab.Chew PO 80 mg QID PRN Administration Gas Discomfort Sodium Chloride 10 ml 03/12/25 14:00 03/17/25 06:09 Central Line Flush IV PUSH 10 ml Q8HR KANDIS Administration Sodium Chloride 10 ml 03/12/25 09:29 Central Line Flush IV PUSH PRN PRN with TPN bag changes Sodium Chloride 20 ml 03/12/25 09:29 03/16/25 04:01 Central Line Flush IV PUSH 20 ml PRN PRN Administration after blood draws Spironolactone 50 mg 03/11/25 09:00 03/16/25 18:00 Spironolactone 25 Mg Tablet PO 50 mg BID KANDIS Administration Tamsulosin HCl 0.4 mg 03/11/25 09:00 03/16/25 09:47 Tamsulosin Hcl 0.4 Mg Capsule PO 0.4 mg QAM KANDIS Administration Radiology Results: ITS Impressions Chest X-Ray 03/12/25 09:24 Impression: 1: Extensive stable bilateral airspace disease which may represent edema or pneumonia. 2: Bilateral pleural effusions without change. Catheter Placement CT 03/12/25 15:47 IMPRESSION: 1. Successful CT-guided abscess drainage. 2. 20 mL fluid was sent for aerobic and anaerobic cultures. 3. The catheter will be managed by Dr. Goins. Abdomen/Pelvis CT 03/15/25 06:20 Impression: Large pelvic abscess along the right side of the distal rectum measuring approximately 15 x 6.8 x 8.5 cm. Interval placement of drainage catheter via right transgluteal approach with pigtail probably just within the collection. Correlate with tube output. 2.0 x 1.3 cm right renal pelvis stone without marnie hydronephrosis. Additional small nonobstructing stones, as above. Cholelithiasis and gallbladder sludge. Moderate to large bilateral pleural effusions with extensive bilateral lower lobe atelectasis. Labs Labs: Laboratory Results - last 24 hr 03/16/25 03/16/25 03/16/25 11:55 18:02 20:31 WBC RBC Hgb Hct MCV MCH MCHC RDW Plt Count MPV Immature Gran % (Auto) Neut % (Auto) Lymph % (Auto) [place] % (Auto) Eos % (Auto) Baso % (Auto) Lymph # (Auto) [place] # (Auto) Eos # (Auto) Baso # (Auto) Abs Immat Gran (auto) Absolute Neuts (auto) Absolute Nucleated RBC Band Neutrophils % Nucleated RBC % Platelet Estimate Anisocytosis Schistocytes Sodium Potassium Chloride Carbon Dioxide Anion Gap BUN Creatinine Estim Creat Clear Calc Estimated GFR Glucose POC Capillary Glucose 96 111 H 98 Calcium Magnesium Total Bilirubin AST ALT Alkaline Phosphatase Total Protein Albumin 03/17/25 03/17/25 03/17/25 00:02 03:34 06:08 WBC 28.7 H RBC 3.44 L Hgb 9.6 L Hct 31.3 L MCV 91.0 MCH 27.9 MCHC 30.7 L RDW 23.7 H Plt Count 439 H MPV 9.0 Immature Gran % (Auto) 1.6 H Neut % (Auto) 95.3 H Lymph % (Auto) 1.5 L [place] % (Auto) 1.3 L Eos % (Auto) 0.0 Baso % (Auto) 0.3 Lymph # (Auto) 0.44 L [place] # (Auto) 0.4 Eos # (Auto) 0.0 Baso # (Auto) 0.1 Abs Immat Gran (auto) 0.47 H Absolute Neuts (auto) 27.4 H Absolute Nucleated RBC 0.000 Band Neutrophils % Not Reportable Nucleated RBC % 0.0 Platelet Estimate Increased Anisocytosis 2+ Schistocytes None seen Sodium 142 Potassium 3.3 L Chloride 110 H Carbon Dioxide 23 Anion Gap 9 BUN 12 Creatinine 0.55 L Estim Creat Clear Calc 88 Estimated GFR > 60 Glucose 116 H POC Capillary Glucose 107 H 108 H Calcium 8.0 L Magnesium 1.7 Total Bilirubin 0.4 AST 14 ALT 6 Alkaline Phosphatase 104 Total Protein 5.5 L Albumin 2.1 L 03/17/25 07:35 WBC RBC Hgb Hct MCV MCH MCHC RDW Plt Count MPV Immature Gran % (Auto) Neut % (Auto) Lymph % (Auto) [place] % (Auto) Eos % (Auto) Baso % (Auto) Lymph # (Auto) [place] # (Auto) Eos # (Auto) Baso # (Auto) Abs Immat Gran (auto) Absolute Neuts (auto) Absolute Nucleated RBC Band Neutrophils % Nucleated RBC % Platelet Estimate Anisocytosis Schistocytes Sodium Potassium Chloride Carbon Dioxide Anion Gap BUN Creatinine Estim Creat Clear Calc Estimated GFR Glucose POC Capillary Glucose 105 Calcium Magnesium Total Bilirubin AST ALT Alkaline Phosphatase Total Protein Albumin
[2025-03-17] MEDS: MICONAZOLE NITRATE 2% CREAM 30 GM TUBE 1 APPLIC TOPICAL ×2 (09:27→17:46)
[2025-03-17 09:47] VITALS: BMI 33.5
--- NOTE | 2025-03-17 10:34 | PCPTNOTE ---
Patient refused treatment this session. Patient reported she was comfortable and did not want to move. Patient also reported that she is going for a procedure and has not been able to eat and did not want to move or do anything. Encouraged patient for participation, patient continued to refuse.
[2025-03-17 11:49] LABS: Glucose Point of Care 112 mg/dl (65-105)
--- NOTE | 2025-03-17 12:58 | P.CDI_ITS ---
CDI Query Clarification Request BMI: 33.6 Nutritional Diagnostic Statement: Please refer to the comprehensive nutrition assessment for further information. If you agree with diagnosis of Severe protein calorie malnutrition related to loss of appetite, altered GI function as evidenced by intakes <50% >7 days; weight loss 15%/1 month; moderate muscle wasting and fat loss. Please specify severity if known: * Mild * Moderate * Severe * Other/Unknown <Ivy Solis RN - Last Filed: 03/17/25 13:00> BMI: 33.6 Nutritional Diagnostic Statement: Please refer to the comprehensive nutrition assessment for further information. If you agree with diagnosis of Severe protein calorie malnutrition related to loss of appetite, altered GI function as evidenced by intakes <50% >7 days; weight loss 15%/1 month; moderate muscle wasting and fat loss. Please specify severity if known: * Mild * Moderate * Severe * Other/Unknown <Serene Vizcarra APRN - Last Filed: 03/17/25 13:09>
--- NOTE | 2025-03-17 13:25 | WPDANESEPPF ---
Anes - Initial Pre Proc Eval Procedure: Operation Date: 03/12/25 11:00 Proposed Procedures p Computed Tomography Guided Abscess Catheter Placement - Elie Rg MD Operation Date: 03/16/25 14:00 Proposed Procedures p Computed Tomography Guided Abscess Catheter Placement - Elie Rg MD Date/Time: 03/17/25 13:25 Surgeon: Sernee Vizcarra APRN Pre Op Diagnosis: Presacral abscess - INPATIENT Patient Data Age: 74 Gender: F Height: 1.68 m Weight: 94.3 kg Last Vital Signs Temp 36.5 C 03/17/25 03:30 Pulse 66 03/17/25 09:16 Resp 20 03/17/25 03:30 BP 123/65 03/17/25 09:15 Pulse Ox 96 03/17/25 09:15 O2 Del Method Room Air 03/17/25 09:10 O2 Flow Rate 2 03/12/25 20:00 FiO2 1 03/15/25 20:00 Allergies Allergy/AdvReac Type Severity Reaction Status Date / Time ciprofloxacin (From Cipro) Allergy Rash Verified 03/10/25 18:22 codeine Allergy Rash Verified 03/10/25 18:22 NSAIDS (Non-Steroidal AdvReac Nose Bleed Verified 03/10/25 19:08 Anti-Inflamma Home Medications ?Medication ?Instructions ?Recorded ?Confirmed ?Type lancets 30 gauge (BD Microtainer #200 ea 11/04/24 03/10/25 Rx Lancet) blood sugar diagnostic (Blood #100 ea 11/23/24 03/10/25 Rx Glucose Test strips) blood-glucose meter #1 ea 11/23/24 03/10/25 Rx insulin glargine 100 unit/mL 10 unit (0.1 mL) subcut HS #300 mL 02/25/25 03/10/25 Rx subcutaneous solution (Lantus U-100 Insulin) metoprolol succinate 25 mg 37.5 mg (1.5 x 25 mg) PO BID #60 02/25/25 03/10/25 Rx tablet,extended release 24 hr tabs pantoprazole 40 mg tablet,delayed 40 mg PO Q12HR #30 tabs 02/25/25 03/10/25 Rx release spironolactone 25 mg tablet 50 mg (2 x 25 mg) PO BID #30 tabs 02/25/25 03/10/25 Rx tamsulosin 0.4 mg capsule 0.4 mg PO QAM #30 caps 02/25/25 03/10/25 Rx acetaminophen 325 mg tablet 325 mg PO Q6H PRN fever or pain 03/10/25 03/10/25 History albuterol sulfate 2.5 mg/3 mL 2.5 mg inhalation Q6H PRN 03/10/25 03/10/25 History (0.083 %) solution for nebulization shortness of breath or wheezing alprazolam 0.25 mg tablet 0.25 mg PO TID PRN anxiety 03/10/25 03/10/25 History dextrose 50 % in water (D50W) 12.5 g IV ONCE PRN hypoglycemia 03/10/25 03/10/25 History enoxaparin 40 mg/0.4 mL 40 mg subcut DAILY 03/10/25 03/10/25 History subcutaneous syringe fluticasone propionate 50 1 spray intranasal Q12H PRN 03/10/25 03/10/25 History mcg/actuation nasal allergy symptoms spray,suspension (Allergy Relief (fluticasone)) miconazole nitrate 2 % topical 1 applic topical BID 03/10/25 03/10/25 History cream (Antifungal (miconazole)) Laboratory Tests 03/16/25 03/16/25 03/17/25 18:02 20:31 00:02 WBC RBC Hgb Hct MCV MCH MCHC RDW Plt Count MPV Immature Gran % (Auto) Neut % (Auto) Lymph % (Auto) [place] % (Auto) Eos % (Auto) Baso % (Auto) Lymph # (Auto) [place] # (Auto) Eos # (Auto) Baso # (Auto) Abs Immat Gran (auto) Absolute Neuts (auto) Absolute Nucleated RBC Band Neutrophils % Nucleated RBC % Platelet Estimate Anisocytosis Schistocytes Sodium Potassium Chloride Carbon Dioxide Anion Gap BUN Creatinine Estim Creat Clear Calc Estimated GFR Glucose POC Capillary Glucose 111 H mg/dl 98 mg/dl 107 H mg/dl (65-105) (65-105) (65-105) Calcium Magnesium Total Bilirubin AST ALT Alkaline Phosphatase Total Protein Albumin 03/17/25 03/17/25 03/17/25 03:34 06:08 07:35 WBC 28.7 H K/mm3 (4.5-10.0) RBC 3.44 L M/mm3 (4.2-5.4) Hgb 9.6 L g/dL (12.0-15.0) Hct 31.3 L % (37.0-47.0) MCV 91.0 fl (80-100) MCH 27.9 pg (26-34) MCHC 30.7 L g/dl (32-36) RDW 23.7 H % (11.5-14.5) Plt Count 439 H k/mm3 (150-375) MPV 9.0 fl (7.4-10.4) Immature Gran % (Auto) 1.6 H % (0-0.5) Neut % (Auto) 95.3 H % (45.5-73.1) Lymph % (Auto) 1.5 L % (18.3-44.2) [place] % (Auto) 1.3 L % (2.6-8.5) Eos % (Auto) 0.0 % (0-4.4) Baso % (Auto) 0.3 % (0.2-1.2) Lymph # (Auto) 0.44 L K/mm3 (0.9-3.2) [place] # (Auto) 0.4 K/mm3 (0.1-0.6) Eos # (Auto) 0.0 K/mm3 (0-0.3) Baso # (Auto) 0.1 K/mm3 (0.0-0.1) Abs Immat Gran (auto) 0.47 H K/mm3 (0.00-0.031) Absolute Neuts (auto) 27.4 H K/mm3 (1.3-6.7) Absolute Nucleated RBC 0.000 K/mm3 (0.0-0.012) Band Neutrophils % Not Reportable Nucleated RBC % 0.0 % (0.0-0.2) Platelet Estimate Increased (Adequate) Anisocytosis 2+ Schistocytes None seen Sodium 142 mmol/L (137-145) Potassium 3.3 L mmol/L (3.4-5.0) Chloride 110 H mmol/L (98-107) Carbon Dioxide 23 mmol/L (22-30) Anion Gap 9 mmol/L (4-12) BUN 12 mg/dL (7-17) Creatinine 0.55 L mg/dL (0.7-1.0) Estim Creat Clear Calc 88 ml/min Estimated GFR > 60 (59 - ) Glucose 116 H mg/dL (65-110) POC Capillary Glucose 108 H mg/dl 105 mg/dl (65-105) (65-105) Calcium 8.0 L mg/dL (8.4-10.2) Magnesium 1.7 mg/dL (1.6-2.3) Total Bilirubin 0.4 mg/dL (0.2-1.3) AST 14 U/L (14-36) ALT 6 U/L (6-35) Alkaline Phosphatase 104 U/L (38-126) Total Protein 5.5 L g/dL (6.3-8.2) Albumin 2.1 L g/dL (3.5-5.1) 03/17/25 11:39 WBC RBC Hgb Hct MCV MCH MCHC RDW Plt Count MPV Immature Gran % (Auto) Neut % (Auto) Lymph % (Auto) [place] % (Auto) Eos % (Auto) Baso % (Auto) Lymph # (Auto) [place] # (Auto) Eos # (Auto) Baso # (Auto) Abs Immat Gran (auto) Absolute Neuts (auto) Absolute Nucleated RBC Band Neutrophils % Nucleated RBC % Platelet Estimate Anisocytosis Schistocytes Sodium Potassium Chloride Carbon Dioxide Anion Gap BUN Creatinine Estim Creat Clear Calc Estimated GFR Glucose POC Capillary Glucose 112 H mg/dl (65-105) Calcium Magnesium Total Bilirubin AST ALT Alkaline Phosphatase Total Protein Albumin Patient hx anesthesia problems: none Family hx anesthesia problems: none Results Review: All pre-operative results and documents have been reviewed as part of the pre-operative evaluation. [facility] Past Medical History Medical History Diabetes 1.5, managed as type 2 Hypertension Surgical History Surgical History No history of previous surgery Family History Family History Mother Heart attack Diabetes mellitus Type II DM Father , heart attack Heart attack Heart disease Sibling , gynecological cancer (lining of uterus per patient) No problems noted. Social History Social History Smoking status: Never smoker Second hand tobacco smoke exposure: No Alcohol intake: never Alcohol use details: occasional, [id number] Substance use: never Substance use type: does not use Do You Feel Safe in your Home?: Yes Lack of Transportation: No Lack of Food: Never True Current Housing: I Have Housing Concerned About Future Housing: No Difficulty Paying Gas/Electric Bills: No Difficulty Paying for Meds: No Currently Unemployed: No Education: Bachelor's Degree Difficulty w/ Childcare or Family Care: No Spiritual care concerns: No Anes - Eval Final PreProcedure Day of Procedure 03/17/25 13:25 Patient weight: obese Heart: regular rate and rhythm Lungs: decreased breath sounds Airway: Mallampati scale class III Neurological: alert and oriented Last oral intake: >/= 8 hours ASA classification: IV Emergent: no Anesthetic plan: proceed Anesthesia type and monitoring: monitored anesthesia care and standard monitoring Results Review: All pre-operative results and documents have been reviewed as part of the pre-operative evaluation. Informed Consent: The patient's anesthetic plan and its attendant risks and benefits were discussed with the patient/family/POA. Questions were solicited and answers provided to the satisfaction of the patient/family/POA.
--- NOTE | 2025-03-17 13:39 | PCPTNOTE ---
Attempted to see patient for PT, however patient out of the room for procedure.
[2025-03-17 14:00] VITALS: BP 129/68; PULSE 67; RESP 20; TEMP 36.4; O2SAT 99
[2025-03-17] MEDS: MAGNESIUM OXIDE 400 MG TABLET PO (14:52)
[2025-03-17] MEDS: TAMSULOSIN HCL 0.4 MG CAPSULE PO (14:52)
[2025-03-17 16:31] LABS: Glucose Point of Care 112 mg/dl (65-105)
[2025-03-17] MEDS: SPIRONOLACTONE 25 MG TABLET 50 MG PO (17:45)
[2025-03-17] MEDS: ACETAMINOPHEN 325 MG TABLET 650 MG PO (17:45)
[2025-03-17 21:05] VITALS: PULSE 71
[2025-03-17] MEDS: PANTOPRAZOLE 40 MG TABLET PO (21:05)
[2025-03-17] MEDS: SODIUM CHLORIDE 0.9% IV 1,000 ML 50 ML IV CONT (21:08)
[2025-03-17 21:21] LABS: Glucose Point of Care 143 mg/dl (65-105)
[2025-03-17 22:00] VITALS: BP 115/50; PULSE 71; RESP 14; TEMP 36.5; O2SAT 100
[2025-03-18] MEDS: PIPERACILLN/TAZ 3.375GM/NS50ML 3.375 GM/50 ML BAG IVPB ×4 (05:22→23:21)
[2025-03-18] MEDS: CENTRAL LINE FLUSH 10 ML IV PUSH ×3 (05:26→23:21)
[2025-03-18 06:23] LABS: Basophils Percent Auto 0.2 % (0.2-1.2); Eosinophils Percent Auto 0.1 % (0-4.4); Hematocrit 30.8 % (37.0-47.0); Hemoglobin 9.3 g/dL (12.0-15.0); Immature Granulocyte Percent A 1.2 % (0-0.5); Lymphocytes Absolute Auto 0.44 K/mm3 (0.9-3.2); Lymphocytes Percent Auto 2.7 % (18.3-44.2); Mean Corpuscular HGB Conc 30.2 g/dl (32-36); Mean Corpuscular Hemoglobin 27.4 pg (26-34); Mean Corpuscular Volume 90.9 fl (80-100); Mean Platelet Volume 8.9 fl (7.4-10.4); Monocytes Absolute Auto 0.6 K/mm3 (0.1-0.6); Monocytes Percent Auto 3.4 % (2.6-8.5); Neutrophils Absolute Auto 15.1 K/mm3 (1.3-6.7); Neutrophils Percent Auto 92.4 % (45.5-73.1); Platelet Count Result 419 k/mm3 (150-375); Red Blood Count 3.39 M/mm3 (4.2-5.4); Red Cell Distribution Width 23.9 % (11.5-14.5); White Blood Count 16.3 K/mm3 (4.5-10.0)
[2025-03-18 06:36] LABS: Alanine Aminotransferase 6 U/L (6-35); Albumin Level 2.1 g/dL (3.5-5.1); Alkaline Phosphatase 105 U/L (38-126); Anion Gap 10 mmol/L (4-12); Aspartate Amino Transferase 16 U/L (14-36); Bilirubin,Total 0.4 mg/dL (0.2-1.3); Blood Urea Nitrogen 13 mg/dL (7-17); Calcium 8.1 mg/dL (8.4-10.2); Carbon Dioxide 22 mmol/L (22-30); Chloride 111 mmol/L (98-107); Estimated CRCL calculation 89 ml/min; Estimated Glomerular Filt Rate > 60; Glucose 146 mg/dL (65-110); Magnesium 1.8 mg/dL (1.6-2.3); Potassium 3.1 mmol/L (3.4-5.0); Sodium 143 mmol/L (137-145); Total Protein 5.4 g/dL (6.3-8.2)
[2025-03-18 06:57] LABS: Acanthocytes 1+; Anisocytosis 2+; Platelet Estimate Increased (Adequate); Schistocytes None Seen
[2025-03-18 07:09] VITALS: BP 147/84; PULSE 81; RESP 16; TEMP 36.7; O2SAT 97
[2025-03-18 08:03] LABS: Glucose Point of Care 137 mg/dl (65-105)
[2025-03-18 08:20] VITALS: PULSE 70
[2025-03-18] MEDS: MAGNESIUM OXIDE 400 MG TABLET PO (08:20)
[2025-03-18] MEDS: METOPROLOL SUCCINATE EXT REL 12.5 MG TABCR 37.5 MG PO ×2 (08:20→21:08)
[2025-03-18] MEDS: SPIRONOLACTONE 25 MG TABLET 50 MG PO ×2 (08:21→17:07)
[2025-03-18] MEDS: TAMSULOSIN HCL 0.4 MG CAPSULE PO (08:21)
[2025-03-18] MEDS: ALPRAZolam (*CRX) 0.25 MG TABLET PO ×2 (08:21→13:06)
[2025-03-18] MEDS: SIMETHICONE 80 MG TAB.CHEW PO (08:21)
[2025-03-18] MEDS: PANTOPRAZOLE 40 MG TABLET PO ×2 (08:21→21:11)
[2025-03-18] MEDS: MORPHINE SULFATE (*CRX) 2 MG/ML INJ IV PUSH ×2 (08:29→13:06)
--- NOTE | 2025-03-18 08:43 | P.PNGS_ITS ---
Progress Note: A&P Assessment and Plan (1) Intra-abdominal abscess: Code(s): K65.1 - Peritoneal abscess Status: Acute Assessment and Plan: * IR replaced broken perc drain yesterday - patent and draining purulent fluid. * Continue IV antibiotics. Abscess cultures positive for Bacteroides fragilis, continue to follow. * Patient encouraged to maintain adequate diet. * Patient with significant edema. Continuous fluids stopped, as patient is drinking by mouth. Plan I have discussed the patient's case and plan of care with Dr. Goins. Subjective Subjective Date/Time Seen: 03/18/25 08:43 Interval history: No acute events overnight. WBC downtrending at 16.3. Drain placed yesterday - 25 mL in bag when checked this morning. Unsure of drainage amount overnight - not documented and nurse unaware. Patient complains of burning and pain with urination. Catheter last changed on the 02/25. Urine culture grew E. coli on 03/10 which was sensitive to Zosyn, which she is currently on. Exam Const: General: comfortable and no acute distress HENMT: Mouth: Yes moist mucous membranes Eyes: General: appearance normal, both eyes and all related structures GI: GI Palp: Yes Soft to palpation, Yes Tenderness to palpation present (GI) (suprapubic tenderness) and No Guarding due to palpation present (GI) Auscultation: normal bowel sounds Urinary Catheter: Urinary Catheter: patent and draining and urine dark Skin: Other: edema to lower legs and arms Extrem: General: edema Objective Data Vital Signs Vital Signs: Vital Signs - 24 hr 03/17/25 09:10 03/17/25 09:15 03/17/25 09:16 Temperature Pulse Rate 66 66 Respiratory Rate Blood Pressure 123/65 Pulse Oximetry 96 Oxygen Delivery Room Air 03/17/25 14:00 03/17/25 21:05 03/17/25 22:00 Temperature 97.6 F 97.7 F Pulse Rate 67 71 71 Respiratory Rate 20 14 Blood Pressure 129/68 115/50 L Pulse Oximetry 99 100 Oxygen Delivery 03/18/25 07:09 03/18/25 08:20 Temperature 98.1 F Pulse Rate 81 70 Respiratory Rate 16 Blood Pressure 147/84 H Pulse Oximetry 97 Oxygen Delivery Intake/Output Intake/Output: Intake & Output 03/15/25 03/16/25 03/17/25 03/18/25 23:59 23:59 23:59 23:59 Intake Total 2860 2166.7 2830 350 Output Total 150 600 600 100 Balance 2710 1566.7 2230 250 Meds/Results Medications: Active Medications Generic Name Dose Route Start Last Admin Trade Name Freq PRN Reason Stop Dose Admin Acetaminophen 650 mg 03/13/25 02:01 03/17/25 17:45 Acetaminophen 325 Mg Tablet PO 650 mg Q6H PRN Administration fever or pain Albuterol 2.5 mg 03/10/25 23:09 Albuterol Sulfate Neb 2.5 Mg/3 Ml Inh INHALATION Q6HRT PRN shortness of breath or wheezing Alprazolam 0.25 mg 03/10/25 23:09 03/18/25 08:21 Alprazolam (*Crx) 0.25 Mg Tablet PO 0.25 mg TID PRN Administration anxiety Dextrose 12.5 gm 03/10/25 23:10 Dextrose 50% 25 Gm/50 Ml Syringe IV PUSH PRN PRN Hypoglycemia Protocol Fluticasone Propionate 1 spray 03/11/25 00:29 Fluticasone Propionate 0.05% Na Spr 16 Gm Btl (*Bkc) NASAL Q12H PRN allergy symptoms Glucagon 1 mg 03/10/25 23:10 Glucagon For Inj 1 Mg Vial IM PRN PRN Hypoglycemia Protocol Glucose 15 gm 03/10/25 23:10 Glucose Oral Gel 15 Gm Of Glucse In 37.5 Gm Tube PO PRN PRN Hypoglycemia Protocol Dextrose 1,000 mls @ 100 mls/hr 03/10/25 23:10 Dextrose 5% 1,000 Ml IVPB PRN PRN Hypoglycemia Protocol Sodium Chloride 1,000 mls @ 50 mls/hr 03/12/25 21:40 03/17/25 21:08 Normal Saline Iv IV CONT 50 mls/hr .Q20H [facility] Administration Piperacillin/Tazobactam/Dextrose 3.375 gm in 50 mls @ 100 mls/hr 03/16/25 12:00 03/18/25 05:22 Zosyn 3.375 Gm/Ns 50 Ml IVPB 100 mls/hr Q6HR [facility] Administration Insulin Aspart 4 - 8 units 03/11/25 08:00 03/18/25 08:08 Insulin Aspart (*Bkc) 100 Units/Ml SUB-Q Not Given TIDWM [facility] Protocol Insulin Glargine 8 units 03/15/25 21:00 03/17/25 21:11 Insulin Glargine (*Bkc) 100 Units/Ml SUB-Q Not Given HS [facility] Magnesium Oxide 400 mg 03/14/25 09:00 03/18/25 08:20 Magnesium Oxide 400 Mg Tablet PO 400 mg DAILY [facility] Administration Metoprolol Succinate 37.5 mg 03/11/25 09:00 03/18/25 08:20 Metoprolol Succinate Ext Rel 12.5 Mg Tabcr PO 37.5 mg Q12HR [facility] Administration Miconazole Nitrate 1 applic 03/11/25 09:00 03/17/25 17:46 Miconazole Nitrate 2% Cream 30 Gm Tube TOPICAL 1 applic BID [facility] Administration Morphine Sulfate 2 mg 03/11/25 10:29 03/18/25 08:29 Morphine Sulfate (*Crx) 2 Mg/Ml Inj IV PUSH 2 mg Q2H PRN Administration Pain Rated 4-6 Morphine Sulfate 4 mg 03/11/25 10:28 03/16/25 20:49 Morphine Sulfate (*Crx) 4 Mg/Ml Inj IV PUSH 4 mg Q2H PRN Administration Pain Rated 7-10 Pantoprazole Sodium 40 mg 03/11/25 09:00 03/18/25 08:21 Pantoprazole 40 Mg Tablet PO 40 mg Q12HR [facility] Administration Simethicone 80 mg 03/12/25 02:31 03/18/25 08:21 Simethicone 80 Mg Tab.Chew PO 80 mg QID PRN Administration Gas Discomfort Sodium Chloride 10 ml 03/12/25 14:00 03/18/25 05:26 Central Line Flush IV PUSH 10 ml Q8HR [facility] Administration Sodium Chloride 10 ml 03/12/25 09:29 Central Line Flush IV PUSH PRN PRN with TPN bag changes Sodium Chloride 20 ml 03/12/25 09:29 03/16/25 04:01 Central Line Flush IV PUSH 20 ml PRN PRN Administration after blood draws Spironolactone 50 mg 03/11/25 09:00 03/18/25 08:21 Spironolactone 25 Mg Tablet PO 50 mg BID [facility] Administration Tamsulosin HCl 0.4 mg 03/11/25 09:00 03/18/25 08:21 Tamsulosin Hcl 0.4 Mg Capsule PO 0.4 mg QAM [facility] Administration Radiology Results: ITS Impressions Chest X-Ray 03/12/25 09:24 Impression: 1: Extensive stable bilateral airspace disease which may represent edema or pneumonia. 2: Bilateral pleural effusions without change. Abdomen/Pelvis CT 03/15/25 06:20 Impression: Large pelvic abscess along the right side of the distal rectum measuring approximately 15 x 6.8 x 8.5 cm. Interval placement of drainage catheter via right transgluteal approach with pigtail probably just within the collection. Correlate with tube output. 2.0 x 1.3 cm right renal pelvis stone without marnie hydronephrosis. Additional small nonobstructing stones, as above. Cholelithiasis and gallbladder sludge. Moderate to large bilateral pleural effusions with extensive bilateral lower lobe atelectasis. Catheter Placement CT 03/17/25 17:08 IMPRESSION: 1. Successful CT-guided transgluteal percutaneous abscess drainage catheter replacement. 2. 50 mL fluid was sent for aerobic and anaerobic cultures. 3. The catheter will be managed by Dr. Goins. Labs Labs: Laboratory Results - last 24 hr 03/17/25 03/17/25 03/17/25 11:39 16:22 20:56 WBC RBC Hgb Hct MCV MCH MCHC RDW Plt Count MPV Immature Gran % (Auto) Neut % (Auto) Lymph % (Auto) [place] % (Auto) Eos % (Auto) Baso % (Auto) Lymph # (Auto) [place] # (Auto) Eos # (Auto) Baso # (Auto) Abs Immat Gran (auto) Absolute Neuts (auto) Absolute Nucleated RBC Band Neutrophils % Nucleated RBC % Platelet Estimate Anisocytosis Acanthocytes (Spur) Schistocytes Sodium Potassium Chloride Carbon Dioxide Anion Gap BUN Creatinine Estim Creat Clear Calc Estimated GFR Glucose POC Capillary Glucose 112 H 112 H 143 H Calcium Magnesium Total Bilirubin AST ALT Alkaline Phosphatase Total Protein Albumin 03/18/25 03/18/25 06:16 07:49 WBC 16.3 H RBC 3.39 L Hgb 9.3 L Hct 30.8 L MCV 90.9 MCH 27.4 MCHC 30.2 L RDW 23.9 H Plt Count 419 H MPV 8.9 Immature Gran % (Auto) 1.2 H Neut % (Auto) 92.4 H Lymph % (Auto) 2.7 L [place] % (Auto) 3.4 Eos % (Auto) 0.1 Baso % (Auto) 0.2 Lymph # (Auto) 0.44 L [place] # (Auto) 0.6 Eos # (Auto) 0.0 Baso # (Auto) 0.0 Abs Immat Gran (auto) 0.20 H Absolute Neuts (auto) 15.1 H Absolute Nucleated RBC 0.000 Band Neutrophils % Not Reportable Nucleated RBC % 0.0 Platelet Estimate Increased Anisocytosis 2+ Acanthocytes (Spur) 1+ Schistocytes None seen Sodium 143 Potassium 3.1 L Chloride 111 H Carbon Dioxide 22 Anion Gap 10 BUN 13 Creatinine 0.54 L Estim Creat Clear Calc 89 Estimated GFR > 60 Glucose 146 H POC Capillary Glucose 137 H Calcium 8.1 L Magnesium 1.8 Total Bilirubin 0.4 AST 16 ALT 6 Alkaline Phosphatase 105 Total Protein 5.4 L Albumin 2.1 L
--- NOTE | 2025-03-18 10:03 | PM.IMPN ---
Progress Note: A&P Assessment and Plan (1) Intra-abdominal abscess: Code(s): K65.1 - Peritoneal abscess Status: Acute Assessment and Plan: -Prior intraabdominal abscess s/p drain placement with complications related to diverticulitis was known -Repeat CT due to Left flank pain showed worsening of abscess and concern for bowel perforation due to extraluminal gas on CT -ER started Rocephin and Flagyl -General surgery consulted 03/12 - schedule for drain placement today with radiology continue ceftriaxone 1gm q24h, flagyl 500 mg q8h - drain is placed 03/12 pain is better -03/14 wbc increased-20.3 today on ceftriaxone -will continue for now 03/15 wbc a bit better today CT repeated Large pelvic abscess along the right side of the distal rectum measuring approximately 15 x 6.8 x 8.5 cm. Interval placement of drainage catheter via right transgluteal approach with pigtail probably just within the collection. Correlate with tube output. 2.0 x 1.3 cm right renal pelvis stone without marnie hydronephrosis. Additional small nonobstructing stones, as above. Cholelithiasis and gallbladder sludge. Moderate to large bilateral pleural effusions with extensive bilateral lower lobe atelectasis - issues with drain as it was not draining as it should of - surgery is disusing with radiology replacing it - IS ordered, needs to get out of bed TID with meals continue working with PT/OT 03/16 ct with drain replacement today Abscess preliminary cultures showing growth of Bacteroides fragilis - discussed with ID pharmacy- switched antibiotics to Zosyn 03/17: IR drain placement today via surg. Replace perc drain vs place second drain -Continue Zosyn for abscess final cultures yielding growth of Bacteroides fragilis -Encouraged IS use and participation in PT/OT -WBC today: 28.7, up from 17.3 yesterday, continue to trend 03/18: Pt groggy today, but thinks she is feeling better since yesterday -Continue Zosyn for abscess final cultures yielding growth of Bacteroides fragilis -Encouraged IS use and participation in PT/OT -WBC today: Now trending down s/p IR drain placement, 16.3 today, will continue to trend with AM labs (2) Type 2 diabetes mellitus with hyperglycemia: Code(s): E11.65 - Type 2 diabetes mellitus with hyperglycemia Status: Acute Assessment and Plan: -Resume Lantus on 03/11/25 -ACHS fingerstick glucose with SSI high dose -A1c 9.6 on 01/26/25, probably improved since then since in the hospital/acute rehab the whole time bs 83 this am -decreased lantus to 8 units tonight 03/15- since diminished appetite- to avoid hypoglycemia 03/17 fasting bs 137 this am (3) Hypokalemia: Code(s): E87.6 - Hypokalemia Status: Acute Assessment and Plan: -replace and monitor 3.4 today monitor for now 3.1 today- will replace and monitor 03/16- 3.4- continue replacement 03/17: 3.3, continue to monitor with daily labs 03/18: 3.1, will replace with 40 mEq IV today and continue to monitor -->Pt taking spironolactone 50mg BID, will continue with daily labs (4) Paroxysmal atrial fibrillation with RVR: Code(s): I48.0 - Paroxysmal atrial fibrillation Status: Acute Assessment and Plan: -Anticoagulation not recommended at this time due to likely need for surgical intervention (IR yesterday) -Monitor Vital Signs Q4H and PRN -Has been in NST (5) UTI (urinary tract infection): Qualifiers: Hematuria presence: without hematuria Urinary tract infection type: acute cystitis Qualified Code(s): N30.00 - Acute cystitis without hematuria Code(s): N39.0 - Urinary tract infection, site not specified Status: Ruled-out Assessment and Plan: -Chronic indwelling Burgos catheter -UA appears potentially infected -Urine culture ordered, E coli -Blood cultures obtained, pending -cultures are back -continue Zosyn Per nursing, pt experiencing discomfort with burgos catheter. I advised the use of lubrication about the insertion tube area as well as a PRN dose for pyridium (6) Critical illness myopathy: Code(s): G72.81 - Critical illness myopathy Status: Acute Assessment and Plan: -Patient generally weak s/p prolonged, complicated hospitalization -Not making much progress at acute rehab - PT/OT ordered but pt had been refusing to work with them, encouraged her again today to participate, pt agreeable (7) Hx of cardiac arrest: Code(s): Z86.74 - Personal history of sudden cardiac arrest Status: Acute Assessment and Plan: -Prior hospitalization complicated by cardiac arrest during procedure to place drain into intraabdominal abscess -Led to prolonged stay and significant weakness (8) Sacral decubitus ulcer: Code(s): L89.159 - Pressure ulcer of sacral region, unspecified stage Status: Acute Assessment and Plan: -Wound care consulted for apparent sacral pressure ulcers -Continue antifungal barrier cream Plan PT/OT ordered prior, continue IS, continue IV abx, daily labs, and I&O perc drain Subjective Date/time seen: 03/18/25 0938 Interval history: Bharti Neal is a 74 year old female patient admitted to the hospital for findings of increased presacral intraabdominal abscess with concern for bowel perforation. She has a complex past medical history of diverticulitis, DM, HTN, cardiac arrest, septic shock, respiratory failure, abdominal abscess, anemia, hypernatremia, A-fib, hypokalemia, bilateral nephrolithiasis, hematuria, and CHF with recent prolonged admission to this facility. Patient was at [facility] and complained of left flank pain. She reported chills but no fever. No nausea/vomiting or other abdominal pain. Repeat CT scan was obtained which showed significant worsening of known intraabdominal abscess, now with air interspersed concerning for rupture of bowel. Patient admitted on IV antibiotics, NPO and surgical eval. 03/12- pt is seen and examined. Plan is to have drain placed today per radiology. 03/13 doing well. pain is better. drain in place. Resting with eyes closed. 03/14 wbc increased today drain in place, not much output. No appetite, but trying to drink supplements. no new or worsening abd pain, no chills 03/15 seen and examined. still weak, had repeated CT scan. vitals stable, no chills. Issues with drain as it was not draining as it should of. 03/16 CT today with drain replacement. needs a lot of encouragement with any activity and repositioning. Need to work with PT/OT but had been refusing. Discussed the need to do IS and work with PT/OT 03/17: IR to replace perc drain / second drain placement today per their schedule. Visited with pt today, states that she is tired of this process but does see why it is necessary. She states that she is feeling OK and only reports pain in her suprapubic abd when touched. I encouraged her today to continue to use her IS as well as participate with therapy and the importance of each, pt agreeable. 03/18: Pt resting in bed. Pt reports that she is still feeling mildly sluggish from her procedure yesterday but can tell that the drain is now working. Berrios/purulent drainage from perc drain. Only complaint today is some discomfort of her burgos, asked nursing to apply lube to the insertion tube and that I would also order Pyridium PRN for this. Encouraged to keep using her IS today as well as therapy, pt reports that she just did not want to participate in PT/OT one day due to being tired but she has been compliant since. Pt tolerating diet and drinking fluids. Per uro, continue IV abx, will continue to round. Review of Systems Review of Systems: All systems reviewed & are unremarkable except as noted in HPI and below Exam Const: General: comfortable and no acute distress Other: Chronically ill-appearing, obese HENMT: Face/Nose/Sinus: Normal nares present Mouth: Yes moist mucous membranes Eyes: General: appearance normal, both eyes and all related structures Sclera: sclerae normal Neck: Neck: supple and no JVD Resp: Effort & Inspection: normal respiratory effort Auscultation: diminished lung sounds (throughout) Cardio: Rate: regular rate Rhythm: regular rhythm GI: Inspection: non-distended Auscultation: normal bowel sounds Other: TTP mild to suprapubic area Urinary Catheter: Urinary Catheter: patent and draining and urine dark Skin: General skin exam: normal color Other: Sacral/L buttock pressure maceration noted, not open, antifungal cream applied Neuro: Speech: normal speech Motor exam (neuro): Normal motor muscle tone present throughout Sensory Exam: normal sensation Extrem: General: normal to inspection and edema (BUE, trace) bilateral Psych: Mental Status: mental status grossly normal Affect: normal affect Objective Data Vital Signs Vital Signs: Vital Signs - 24 hr 03/17/25 14:00 03/17/25 21:05 03/17/25 22:00 Temperature 97.6 F 97.7 F Pulse Rate 67 71 71 Respiratory Rate 20 14 Blood Pressure 129/68 115/50 L Pulse Oximetry 99 100 03/18/25 07:09 03/18/25 08:20 Temperature 98.1 F Pulse Rate 81 70 Respiratory Rate 16 Blood Pressure 147/84 H Pulse Oximetry 97 Intake/Output Intake/Output: Intake & Output 03/15/25 03/16/25 03/17/25 03/18/25 23:59 23:59 23:59 23:59 Intake Total 2860 2166.7 2830 470 Output Total 150 600 600 100 Balance 2710 1566.7 2230 370 Meds/Results Medications: Active Medications Generic Name Dose Route Start Last Admin Trade Name Freq PRN Reason Stop Dose Admin Acetaminophen 650 mg 03/13/25 02:01 03/17/25 17:45 Acetaminophen 325 Mg Tablet PO 650 mg Q6H PRN Administration fever or pain Albuterol 2.5 mg 03/10/25 23:09 Albuterol Sulfate Neb 2.5 Mg/3 Ml Inh INHALATION Q6HRT PRN shortness of breath or wheezing Alprazolam 0.25 mg 03/10/25 23:09 03/18/25 08:21 Alprazolam (*Crx) 0.25 Mg Tablet PO 0.25 mg TID PRN Administration anxiety Dextrose 12.5 gm 03/10/25 23:10 Dextrose 50% 25 Gm/50 Ml Syringe IV PUSH PRN PRN Hypoglycemia Protocol Fluticasone Propionate 1 spray 03/11/25 00:29 Fluticasone Propionate 0.05% Na Spr 16 Gm Btl (*Bkc) NASAL Q12H PRN allergy symptoms Glucagon 1 mg 03/10/25 23:10 Glucagon For Inj 1 Mg Vial IM PRN PRN Hypoglycemia Protocol Glucose 15 gm 03/10/25 23:10 Glucose Oral Gel 15 Gm Of Glucse In 37.5 Gm Tube PO PRN PRN Hypoglycemia Protocol Dextrose 1,000 mls @ 100 mls/hr 03/10/25 23:10 Dextrose 5% 1,000 Ml IVPB PRN PRN Hypoglycemia Protocol Piperacillin/Tazobactam/Dextrose 3.375 gm in 50 mls @ 100 mls/hr 03/16/25 12:00 03/18/25 05:22 Zosyn 3.375 Gm/Ns 50 Ml IVPB 100 mls/hr Q6HR [facility] Administration Insulin Aspart 4 - 8 units 03/11/25 08:00 03/18/25 08:08 Insulin Aspart (*Bkc) 100 Units/Ml SUB-Q Not Given TIDWM [facility] Protocol Insulin Glargine 8 units 03/15/25 21:00 03/17/25 21:11 Insulin Glargine (*Bkc) 100 Units/Ml SUB-Q Not Given HS [facility] Magnesium Oxide 400 mg 03/14/25 09:00 03/18/25 08:20 Magnesium Oxide 400 Mg Tablet PO 400 mg DAILY [facility] Administration Metoprolol Succinate 37.5 mg 03/11/25 09:00 03/18/25 08:20 Metoprolol Succinate Ext Rel 12.5 Mg Tabcr PO 37.5 mg Q12HR [facility] Administration Miconazole Nitrate 1 applic 03/11/25 09:00 03/17/25 17:46 Miconazole Nitrate 2% Cream 30 Gm Tube TOPICAL 1 applic BID [facility] Administration Morphine Sulfate 2 mg 03/11/25 10:29 03/18/25 08:29 Morphine Sulfate (*Crx) 2 Mg/Ml Inj IV PUSH 2 mg Q2H PRN Administration Pain Rated 4-6 Morphine Sulfate 4 mg 03/11/25 10:28 03/16/25 20:49 Morphine Sulfate (*Crx) 4 Mg/Ml Inj IV PUSH 4 mg Q2H PRN Administration Pain Rated 7-10 Pantoprazole Sodium 40 mg 03/11/25 09:00 03/18/25 08:21 Pantoprazole 40 Mg Tablet PO 40 mg Q12HR [facility] Administration Phenazopyridine HCl 100 mg 03/18/25 09:59 Phenazopyridine Hcl 100 Mg Tablet PO ONCE PRN catheter pain Simethicone 80 mg 03/12/25 02:31 03/18/25 08:21 Simethicone 80 Mg Tab.Chew PO 80 mg QID PRN Administration Gas Discomfort Sodium Chloride 10 ml 03/12/25 14:00 03/18/25 05:26 Central Line Flush IV PUSH 10 ml Q8HR [facility] Administration Sodium Chloride 10 ml 03/12/25 09:29 Central Line Flush IV PUSH PRN PRN with TPN bag changes Sodium Chloride 20 ml 03/12/25 09:29 03/16/25 04:01 Central Line Flush IV PUSH 20 ml PRN PRN Administration after blood draws Spironolactone 50 mg 03/11/25 09:00 03/18/25 08:21 Spironolactone 25 Mg Tablet PO 50 mg BID [facility] Administration Tamsulosin HCl 0.4 mg 03/11/25 09:00 03/18/25 08:21 Tamsulosin Hcl 0.4 Mg Capsule PO 0.4 mg QAM [facility] Administration Radiology Results: ITS Impressions Chest X-Ray 03/12/25 09:24 Impression: 1: Extensive stable bilateral airspace disease which may represent edema or pneumonia. 2: Bilateral pleural effusions without change. Abdomen/Pelvis CT 03/15/25 06:20 Impression: Large pelvic abscess along the right side of the distal rectum measuring approximately 15 x 6.8 x 8.5 cm. Interval placement of drainage catheter via right transgluteal approach with pigtail probably just within the collection. Correlate with tube output. 2.0 x 1.3 cm right renal pelvis stone without marnie hydronephrosis. Additional small nonobstructing stones, as above. Cholelithiasis and gallbladder sludge. Moderate to large bilateral pleural effusions with extensive bilateral lower lobe atelectasis. Catheter Placement CT 03/17/25 17:08 IMPRESSION: 1. Successful CT-guided transgluteal percutaneous abscess drainage catheter replacement. 2. 50 mL fluid was sent for aerobic and anaerobic cultures. 3. The catheter will be managed by Dr. Goins. Labs Labs: Laboratory Results - last 24 hr 03/17/25 03/17/25 03/17/25 11:39 16:22 20:56 WBC RBC Hgb Hct MCV MCH MCHC RDW Plt Count MPV Immature Gran % (Auto) Neut % (Auto) Lymph % (Auto) [place] % (Auto) Eos % (Auto) Baso % (Auto) Lymph # (Auto) [place] # (Auto) Eos # (Auto) Baso # (Auto) Abs Immat Gran (auto) Absolute Neuts (auto) Absolute Nucleated RBC Band Neutrophils % Nucleated RBC % Platelet Estimate Anisocytosis Acanthocytes (Spur) Schistocytes Sodium Potassium Chloride Carbon Dioxide Anion Gap BUN Creatinine Estim Creat Clear Calc Estimated GFR Glucose POC Capillary Glucose 112 H 112 H 143 H Calcium Magnesium Total Bilirubin AST ALT Alkaline Phosphatase Total Protein Albumin 03/18/25 03/18/25 06:16 07:49 WBC 16.3 H RBC 3.39 L Hgb 9.3 L Hct 30.8 L MCV 90.9 MCH 27.4 MCHC 30.2 L RDW 23.9 H Plt Count 419 H MPV 8.9 Immature Gran % (Auto) 1.2 H Neut % (Auto) 92.4 H Lymph % (Auto) 2.7 L [place] % (Auto) 3.4 Eos % (Auto) 0.1 Baso % (Auto) 0.2 Lymph # (Auto) 0.44 L [place] # (Auto) 0.6 Eos # (Auto) 0.0 Baso # (Auto) 0.0 Abs Immat Gran (auto) 0.20 H Absolute Neuts (auto) 15.1 H Absolute Nucleated RBC 0.000 Band Neutrophils % Not Reportable Nucleated RBC % 0.0 Platelet Estimate Increased Anisocytosis 2+ Acanthocytes (Spur) 1+ Schistocytes None seen Sodium 143 Potassium 3.1 L Chloride 111 H Carbon Dioxide 22 Anion Gap 10 BUN 13 Creatinine 0.54 L Estim Creat Clear Calc 89 Estimated GFR > 60 Glucose 146 H POC Capillary Glucose 137 H Calcium 8.1 L Magnesium 1.8 Total Bilirubin 0.4 AST 16 ALT 6 Alkaline Phosphatase 105 Total Protein 5.4 L Albumin 2.1 L Quality VTE Prophylaxis VTE prophylaxis: mechanical ordered
[2025-03-18 11:54] LABS: Glucose Point of Care 168 mg/dl (65-105)
[2025-03-18] MEDS: PHENAZOPYRIDINE HCL 100 MG TABLET PO (13:06)
[2025-03-18] MEDS: MICONAZOLE NITRATE 2% CREAM 30 GM TUBE 1 APPLIC TOPICAL ×2 (13:10→17:08)
[2025-03-18 14:00] VITALS: BP 146/72; PULSE 73; RESP 20; TEMP 36.4; O2SAT 98
[2025-03-18] MEDS: POTASSIUM CHLORIDE INJ 40 MEQ in SODIUM CHLORIDE 0.9% IV 500 ML 130 MEQ IVPB (14:01)
[2025-03-18 17:04] LABS: Glucose Point of Care 165 mg/dl (65-105)
[2025-03-18 21:08] VITALS: PULSE 74
[2025-03-18 21:17] VITALS: BP 147/75; PULSE 74; RESP 14; TEMP 36.6; O2SAT 96
[2025-03-18 22:00] LABS: Glucose Point of Care 166 mg/dl (65-105)
[2025-03-19 04:43] VITALS: BP 141/77; PULSE 80; RESP 16; TEMP 36.4; O2SAT 95
[2025-03-19] MEDS: PIPERACILLN/TAZ 3.375GM/NS50ML 3.375 GM/50 ML BAG IVPB ×4 (05:09→23:36)
[2025-03-19] MEDS: CENTRAL LINE FLUSH 10 ML IV PUSH ×3 (05:13→21:20)
[2025-03-19 06:30] LABS: Basophils Percent Auto 0.3 % (0.2-1.2); Eosinophils Percent Auto 0.1 % (0-4.4); Hematocrit 30.1 % (37.0-47.0); Hemoglobin 9.1 g/dL (12.0-15.0); Immature Granulocyte Absolute 0.14 K/mm3 (0.00-0.031); Immature Granulocyte Percent A 0.9 % (0-0.5); Lymphocytes Absolute Auto 0.44 K/mm3 (0.9-3.2); Lymphocytes Percent Auto 2.9 % (18.3-44.2); Mean Corpuscular HGB Conc 30.2 g/dl (32-36); Mean Corpuscular Hemoglobin 27.2 pg (26-34); Mean Corpuscular Volume 90.1 fl (80-100); Mean Platelet Volume 9.3 fl (7.4-10.4); Monocytes Absolute Auto 0.7 K/mm3 (0.1-0.6); Monocytes Percent Auto 4.4 % (2.6-8.5); Neutrophils Absolute Auto 13.8 K/mm3 (1.3-6.7); Neutrophils Percent Auto 91.4 % (45.5-73.1); Platelet Count Result 422 k/mm3 (150-375); Red Blood Count 3.34 M/mm3 (4.2-5.4); Red Cell Distribution Width 24.1 % (11.5-14.5); White Blood Count 15.1 K/mm3 (4.5-10.0)
[2025-03-19 06:47] LABS: Alanine Aminotransferase 6 U/L (6-35); Albumin Level 2.1 g/dL (3.5-5.1); Alkaline Phosphatase 107 U/L (38-126); Anion Gap 7 mmol/L (4-12); Aspartate Amino Transferase 14 U/L (14-36); Bilirubin,Total 0.4 mg/dL (0.2-1.3); Blood Urea Nitrogen 11 mg/dL (7-17); Carbon Dioxide 26 mmol/L (22-30); Chloride 111 mmol/L (98-107); Estimated CRCL calculation 103 ml/min; Estimated Glomerular Filt Rate > 60; Glucose 154 mg/dL (65-110); Magnesium 1.8 mg/dL (1.6-2.3); Potassium 3.1 mmol/L (3.4-5.0); Sodium 144 mmol/L (137-145); Total Protein 5.5 g/dL (6.3-8.2)
[2025-03-19 07:13] LABS: Anisocytosis 2+; Burr Cells 1+; Crenated RBC 1+; Hypochromasia 1+; Platelet Estimate Increased (Adequate); Schistocytes None Seen
[2025-03-19 08:31] LABS: Glucose Point of Care 159 mg/dl (65-105)
[2025-03-19] MEDS: TAMSULOSIN HCL 0.4 MG CAPSULE PO (09:00)
[2025-03-19] MEDS: MAGNESIUM OXIDE 400 MG TABLET PO (09:00)
[2025-03-19] MEDS: SPIRONOLACTONE 25 MG TABLET 50 MG PO ×2 (09:00→16:39)
[2025-03-19 09:01] VITALS: PULSE 80
[2025-03-19] MEDS: ALPRAZolam (*CRX) 0.25 MG TABLET PO ×2 (09:01→12:48)
[2025-03-19] MEDS: PANTOPRAZOLE 40 MG TABLET PO ×2 (09:01→21:12)
[2025-03-19] MEDS: METOPROLOL SUCCINATE EXT REL 12.5 MG TABCR 37.5 MG PO ×2 (09:01→21:12)
[2025-03-19] MEDS: MICONAZOLE NITRATE 2% CREAM 30 GM TUBE 1 APPLIC TOPICAL ×2 (09:02→16:39)
--- NOTE | 2025-03-19 11:07 | PM.PNGS ---
Progress Note: A&P Assessment and Plan (1) Intra-abdominal abscess: Code(s): K65.1 - Peritoneal abscess Status: Acute Assessment and Plan: IR replaced broken perc drain two days ago - patent and draining minimal purulent fluid. Continue IV antibiotics. Abscess cultures positive for Bacteroides fragilis, continue to follow. Patient encouraged to maintain adequate diet. Plan I have discussed the patient's case and plan of care with Dr. Goins. Subjective Subjective Date/Time Seen: 03/19/25 11:07 Interval history: Patient is doing well today. Pain decreased, but still complains of burning with urination. Catheter last changed on 02/25. Having regular bowel movements. WBC downtrending at 15.1. Minimal purulent drainage in perc drain bag. Exam GI: Inspection: normal to inspection and non-distended Other: Minimal purulent drainage in perc drain bag. : Other: suprapubic tenderness to palpation Urinary Catheter: Urinary Catheter: patent and draining and urine dark Objective Data Vital Signs Vital Signs: Vital Signs - 24 hr 03/18/25 14:00 03/18/25 21:08 03/18/25 21:17 Temperature 97.6 F 97.8 F Pulse Rate 73 74 74 Respiratory Rate 20 14 Blood Pressure 146/72 H 147/75 H Pulse Oximetry 98 96 03/19/25 04:43 03/19/25 09:01 Temperature 97.6 F Pulse Rate 80 80 Respiratory Rate 16 Blood Pressure 141/77 H Pulse Oximetry 95 Intake/Output Intake/Output: Intake & Output 03/16/25 03/17/25 03/18/25 03/19/25 23:59 23:59 23:59 23:59 Intake Total 2166.7 2830 1390 170 Output Total 600 600 145 55 Balance 1566.7 2230 1245 115 Meds/Results Medications: Active Medications Generic Name Dose Route Start Last Admin Trade Name Freq PRN Reason Stop Dose Admin Acetaminophen 650 mg 03/13/25 02:01 03/17/25 17:45 Acetaminophen 325 Mg Tablet PO 650 mg Q6H PRN Administration fever or pain Albuterol 2.5 mg 03/10/25 23:09 Albuterol Sulfate Neb 2.5 Mg/3 Ml Inh INHALATION Q6HRT PRN shortness of breath or wheezing Alprazolam 0.25 mg 03/10/25 23:09 03/19/25 09:01 Alprazolam (*Crx) 0.25 Mg Tablet PO 0.25 mg TID PRN Administration anxiety Dextrose 12.5 gm 03/10/25 23:10 Dextrose 50% 25 Gm/50 Ml Syringe IV PUSH PRN PRN Hypoglycemia Protocol Fluticasone Propionate 1 spray 03/11/25 00:29 Fluticasone Propionate 0.05% Na Spr 16 Gm Btl (*Bkc) NASAL Q12H PRN allergy symptoms Glucagon 1 mg 03/10/25 23:10 Glucagon For Inj 1 Mg Vial IM PRN PRN Hypoglycemia Protocol Glucose 15 gm 03/10/25 23:10 Glucose Oral Gel 15 Gm Of Glucse In 37.5 Gm Tube PO PRN PRN Hypoglycemia Protocol Dextrose 1,000 mls @ 100 mls/hr 03/10/25 23:10 Dextrose 5% 1,000 Ml IVPB PRN PRN Hypoglycemia Protocol Piperacillin/Tazobactam/Dextrose 3.375 gm in 50 mls @ 100 mls/hr 03/16/25 12:00 03/19/25 05:39 Zosyn 3.375 Gm/Ns 50 Ml IVPB Infused Q6HR KANDIS Infusion Insulin Aspart 4 - 8 units 03/11/25 08:00 03/19/25 08:58 Insulin Aspart (*Bkc) 100 Units/Ml SUB-Q Not Given TIDWM [facility] Protocol Insulin Glargine 8 units 03/15/25 21:00 03/18/25 21:16 Insulin Glargine (*Bkc) 100 Units/Ml SUB-Q Not Given HS [facility] Magnesium Oxide 400 mg 03/14/25 09:00 03/19/25 09:00 Magnesium Oxide 400 Mg Tablet PO 400 mg DAILY KANDIS Administration Metoprolol Succinate 37.5 mg 03/11/25 09:00 03/19/25 09:01 Metoprolol Succinate Ext Rel 12.5 Mg Tabcr PO 37.5 mg Q12HR KANDIS Administration Miconazole Nitrate 1 applic 03/11/25 09:00 03/19/25 09:02 Miconazole Nitrate 2% Cream 30 Gm Tube TOPICAL 1 applic BID KANDIS Administration Morphine Sulfate 2 mg 03/11/25 10:29 03/18/25 13:06 Morphine Sulfate (*Crx) 2 Mg/Ml Inj IV PUSH 2 mg Q2H PRN Administration Pain Rated 4-6 Morphine Sulfate 4 mg 03/11/25 10:28 03/16/25 20:49 Morphine Sulfate (*Crx) 4 Mg/Ml Inj IV PUSH 4 mg Q2H PRN Administration Pain Rated 7-10 Pantoprazole Sodium 40 mg 03/11/25 09:00 03/19/25 09:01 Pantoprazole 40 Mg Tablet PO 40 mg Q12HR KANDIS Administration Phenazopyridine HCl 100 mg 03/18/25 09:59 03/18/25 13:06 Phenazopyridine Hcl 100 Mg Tablet PO 100 mg ONCE PRN Administration catheter pain Simethicone 80 mg 03/12/25 02:31 03/18/25 08:21 Simethicone 80 Mg Tab.Chew PO 80 mg QID PRN Administration Gas Discomfort Sodium Chloride 10 ml 03/12/25 14:00 03/19/25 05:13 Central Line Flush IV PUSH 10 ml Q8HR KANDIS Administration Sodium Chloride 10 ml 03/12/25 09:29 Central Line Flush IV PUSH PRN PRN with TPN bag changes Sodium Chloride 20 ml 03/12/25 09:29 03/16/25 04:01 Central Line Flush IV PUSH 20 ml PRN PRN Administration after blood draws Spironolactone 50 mg 03/11/25 09:00 03/19/25 09:00 Spironolactone 25 Mg Tablet PO 50 mg BID KANDIS Administration Tamsulosin HCl 0.4 mg 03/11/25 09:00 03/19/25 09:00 Tamsulosin Hcl 0.4 Mg Capsule PO 0.4 mg QAM KANDIS Administration Radiology Results: ITS Impressions Chest X-Ray 03/12/25 09:24 Impression: 1: Extensive stable bilateral airspace disease which may represent edema or pneumonia. 2: Bilateral pleural effusions without change. Abdomen/Pelvis CT 03/15/25 06:20 Impression: Large pelvic abscess along the right side of the distal rectum measuring approximately 15 x 6.8 x 8.5 cm. Interval placement of drainage catheter via right transgluteal approach with pigtail probably just within the collection. Correlate with tube output. 2.0 x 1.3 cm right renal pelvis stone without marnie hydronephrosis. Additional small nonobstructing stones, as above. Cholelithiasis and gallbladder sludge. Moderate to large bilateral pleural effusions with extensive bilateral lower lobe atelectasis. Catheter Placement CT 03/17/25 17:08 IMPRESSION: 1. Successful CT-guided transgluteal percutaneous abscess drainage catheter replacement. 2. 50 mL fluid was sent for aerobic and anaerobic cultures. 3. The catheter will be managed by Dr. Goins. Labs Labs: Laboratory Results - last 24 hr 03/18/25 03/18/25 03/18/25 11:40 16:48 21:15 WBC RBC Hgb Hct MCV MCH MCHC RDW Plt Count MPV Immature Gran % (Auto) Neut % (Auto) Lymph % (Auto) [place] % (Auto) Eos % (Auto) Baso % (Auto) Lymph # (Auto) [place] # (Auto) Eos # (Auto) Baso # (Auto) Abs Immat Gran (auto) Absolute Neuts (auto) Absolute Nucleated RBC Band Neutrophils % Nucleated RBC % Platelet Estimate Hypochromasia Anisocytosis Blank Cells Crenated Cell Schistocytes Sodium Potassium Chloride Carbon Dioxide Anion Gap BUN Creatinine Estim Creat Clear Calc Estimated GFR Glucose POC Capillary Glucose 168 H 165 H 166 H Calcium Magnesium Total Bilirubin AST ALT Alkaline Phosphatase Total Protein Albumin 03/19/25 03/19/25 06:04 08:25 WBC 15.1 H RBC 3.34 L Hgb 9.1 L Hct 30.1 L MCV 90.1 MCH 27.2 MCHC 30.2 L RDW 24.1 H Plt Count 422 H MPV 9.3 Immature Gran % (Auto) 0.9 H Neut % (Auto) 91.4 H Lymph % (Auto) 2.9 L [place] % (Auto) 4.4 Eos % (Auto) 0.1 Baso % (Auto) 0.3 Lymph # (Auto) 0.44 L [place] # (Auto) 0.7 H Eos # (Auto) 0.0 Baso # (Auto) 0.0 Abs Immat Gran (auto) 0.14 H Absolute Neuts (auto) 13.8 H Absolute Nucleated RBC 0.000 Band Neutrophils % Not Reportable Nucleated RBC % 0.0 Platelet Estimate Increased Hypochromasia 1+ Anisocytosis 2+ Blank Cells 1+ Crenated Cell 1+ Schistocytes None seen Sodium 144 Potassium 3.1 L Chloride 111 H Carbon Dioxide 26 Anion Gap 7 BUN 11 Creatinine 0.46 L Estim Creat Clear Calc 103 Estimated GFR > 60 Glucose 154 H POC Capillary Glucose 159 H Calcium 8.0 L Magnesium 1.8 Total Bilirubin 0.4 AST 14 ALT 6 Alkaline Phosphatase 107 Total Protein 5.5 L Albumin 2.1 L
--- NOTE | 2025-03-19 11:44 | PM.IMPN ---
Progress Note: A&P Assessment and Plan (1) Intra-abdominal abscess: Code(s): K65.1 - Peritoneal abscess Status: Acute Assessment and Plan: -Prior intraabdominal abscess s/p drain placement with complications related to diverticulitis was known -Repeat CT due to Left flank pain showed worsening of abscess and concern for bowel perforation due to extraluminal gas on CT -ER started Rocephin and Flagyl -General surgery consulted 03/12 - schedule for drain placement today with radiology continue ceftriaxone 1gm q24h, flagyl 500 mg q8h - drain is placed 03/12 pain is better -03/14 wbc increased-20.3 today on ceftriaxone -will continue for now 03/15 wbc a bit better today CT repeated Large pelvic abscess along the right side of the distal rectum measuring approximately 15 x 6.8 x 8.5 cm. Interval placement of drainage catheter via right transgluteal approach with pigtail probably just within the collection. Correlate with tube output. 2.0 x 1.3 cm right renal pelvis stone without marnie hydronephrosis. Additional small nonobstructing stones, as above. Cholelithiasis and gallbladder sludge. Moderate to large bilateral pleural effusions with extensive bilateral lower lobe atelectasis - issues with drain as it was not draining as it should of - surgery is disusing with radiology replacing it - IS ordered, needs to get out of bed TID with meals continue working with PT/OT 03/16 ct with drain replacement today Abscess preliminary cultures showing growth of Bacteroides fragilis - discussed with ID pharmacy- switched antibiotics to Zosyn 03/17: IR drain placement today via surg. Replace perc drain vs place second drain -Continue Zosyn for abscess final cultures yielding growth of Bacteroides fragilis -Encouraged IS use and participation in PT/OT -WBC today: 28.7, up from 17.3 yesterday, continue to trend 03/18: Pt groggy today, but thinks she is feeling better since yesterday -Continue Zosyn for abscess final cultures yielding growth of Bacteroides fragilis -Encouraged IS use and participation in PT/OT -WBC today: Now trending down s/p IR drain placement, 16.3 today, will continue to trend with AM labs 03/19: Pt wide awake and working with therapy sitting up in chair -Continue Zosyn for abscess final cultures yielding growth of Bacteroides fragilis -Prelim Aerobic culture of abd fluid yielding Escherichia Coli (continue Zosyn) & Enterococcus Casselifavus (see below) -->Since pt has been stable and WBC downtrending, will await final culture to start with linezolid or daptomycin -Encouraged IS use and participation in PT/OT -WBC today: Now trending down s/p IR drain placement, 15.1 today, will continue to trend with AM labs (2) Type 2 diabetes mellitus with hyperglycemia: Code(s): E11.65 - Type 2 diabetes mellitus with hyperglycemia Status: Acute Assessment and Plan: -Resume Lantus on 03/11/25 -ACHS fingerstick glucose with SSI high dose -A1c 9.6 on 01/26/25, probably improved since then since in the hospital/acute rehab the whole time bs 83 this am -decreased lantus to 8 units tonight 03/15- since diminished appetite- to avoid hypoglycemia 03/19 fasting bs 159 this am (3) Hypokalemia: Code(s): E87.6 - Hypokalemia Status: Acute Assessment and Plan: -replace and monitor 3.4 today monitor for now 3.1 today- will replace and monitor 03/16- 3.4- continue replacement 03/17: 3.3, continue to monitor with daily labs 03/18: 3.1, will replace with 40 mEq IV today and continue to monitor -->Pt taking spironolactone 50mg BID, will continue with daily labs 03/19: 3.1, will replace with 80 mEq IV today and continue to monitor. May add on oral tomorrow if still not adequately supplemented. -Mag has been WDL (4) Paroxysmal atrial fibrillation with RVR: Code(s): I48.0 - Paroxysmal atrial fibrillation Status: Acute Assessment and Plan: -Anticoagulation not recommended at this time due to likely need for surgical intervention (IR yesterday) -Monitor Vital Signs Q4H and PRN -Has been in NST (5) UTI (urinary tract infection): Qualifiers: Hematuria presence: without hematuria Urinary tract infection type: acute cystitis Qualified Code(s): N30.00 - Acute cystitis without hematuria Code(s): N39.0 - Urinary tract infection, site not specified Status: Ruled-out Assessment and Plan: -Chronic indwelling Burgos catheter -UA appears potentially infected -Urine culture ordered, E coli -Blood cultures obtained, WDL -cultures are back -continue Zosyn Per nursing, pt experiencing discomfort with burgos catheter. I advised the use of lubrication about the insertion tube area as well as a PRN dose for Pyridium. (6) Critical illness myopathy: Code(s): G72.81 - Critical illness myopathy Status: Acute Assessment and Plan: -Patient generally weak s/p prolonged, complicated hospitalization -Not making much progress at acute rehab - PT/OT ordered and pt has been working with them (7) Hx of cardiac arrest: Code(s): Z86.74 - Personal history of sudden cardiac arrest Status: Acute Assessment and Plan: -Prior hospitalization complicated by cardiac arrest during procedure to place drain into intraabdominal abscess -Led to prolonged stay and significant weakness (8) Sacral decubitus ulcer: Code(s): L89.159 - Pressure ulcer of sacral region, unspecified stage Status: Acute Assessment and Plan: -Wound care consulted for apparent sacral pressure ulcers -Continue antifungal barrier cream -Turn schedule ordered today, per therapy, pt not turning well Plan PT/OT ordered prior, continue IS, continue IV abx, daily labs, and I&O perc drain Subjective Date/time seen: 03/19/25 11:40 Interval history: Bharti Neal is a 74 year old female patient admitted to the hospital for findings of increased presacral intraabdominal abscess with concern for bowel perforation. She has a complex past medical history of diverticulitis, DM, HTN, cardiac arrest, septic shock, respiratory failure, abdominal abscess, anemia, hypernatremia, A-fib, hypokalemia, bilateral nephrolithiasis, hematuria, and CHF with recent prolonged admission to this facility. Patient was at [facility] and complained of left flank pain. She reported chills but no fever. No nausea/vomiting or other abdominal pain. Repeat CT scan was obtained which showed significant worsening of known intraabdominal abscess, now with air interspersed concerning for rupture of bowel. Patient admitted on IV antibiotics, NPO and surgical eval. 03/12- pt is seen and examined. Plan is to have drain placed today per radiology. 03/13 doing well. pain is better. drain in place. Resting with eyes closed. 03/14 wbc increased today drain in place, not much output. No appetite, but trying to drink supplements. no new or worsening abd pain, no chills 03/15 seen and examined. still weak, had repeated CT scan. vitals stable, no chills. Issues with drain as it was not draining as it should of. 03/16 CT today with drain replacement. needs a lot of encouragement with any activity and repositioning. Need to work with PT/OT but had been refusing. Discussed the need to do IS and work with PT/OT 03/17: IR to replace perc drain / second drain placement today per their schedule. Visited with pt today, states that she is tired of this process but does see why it is necessary. She states that she is feeling OK and only reports pain in her suprapubic abd when touched. I encouraged her today to continue to use her IS as well as participate with therapy and the importance of each, pt agreeable. 03/18: Pt resting in bed. Pt reports that she is still feeling mildly sluggish from her procedure yesterday but can tell that the drain is now working. Berrios/purulent drainage from perc drain. Only complaint today is some discomfort of her burgos, asked nursing to apply lube to the insertion tube and that I would also order Pyridium PRN for this. Encouraged to keep using her IS today as well as therapy, pt reports that she just did not want to participate in PT/OT one day due to being tired but she has been compliant since. Pt tolerating diet and drinking fluids. Per uro, continue IV abx, will continue to round. 03/19: Pt sitting up in chair with therapy when I entered the room, pt looking better today. Pt only reporting buttock pain, pt requesting Tylenol and I am also ordered a turn schedule to help with pressure on the buttocks. Per surgery team, to stay on IV abx and continue to trend labs (WBC) and drain output. BC prelim cultures back today, see below on plan. Review of Systems Review of Systems: All systems reviewed & are unremarkable except as noted in HPI and below Exam Const: General: comfortable and no acute distress Other: Chronically ill-appearing, obese HENMT: Face/Nose/Sinus: Normal nares present Mouth: Yes moist mucous membranes Eyes: General: appearance normal, both eyes and all related structures Sclera: sclerae normal Neck: Neck: supple and no JVD Resp: Effort & Inspection: normal respiratory effort Auscultation: diminished lung sounds (throughout) Cardio: Rate: regular rate Rhythm: regular rhythm GI: Inspection: non-distended Auscultation: normal bowel sounds Other: TTP mild to suprapubic area, getting better Urinary Catheter: Urinary Catheter: patent and draining and urine dark Skin: General skin exam: normal color Other: Sacral/L buttock pressure maceration noted, not open, antifungal cream applied Neuro: Speech: normal speech Motor exam (neuro): Normal motor muscle tone present throughout Sensory Exam: normal sensation Extrem: General: normal to inspection and edema (BUE, trace) bilateral Psych: Mental Status: mental status grossly normal Affect: normal affect Objective Data Vital Signs Vital Signs: Vital Signs - 24 hr 03/18/25 14:00 03/18/25 21:08 03/18/25 21:17 Temperature 97.6 F 97.8 F Pulse Rate 73 74 74 Respiratory Rate 20 14 Blood Pressure 146/72 H 147/75 H Pulse Oximetry 98 96 Oxygen Delivery 03/19/25 04:43 03/19/25 08:00 03/19/25 09:01 Temperature 97.6 F Pulse Rate 80 80 Respiratory Rate 16 Blood Pressure 141/77 H Pulse Oximetry 95 Oxygen Delivery Room Air Intake/Output Intake/Output: Intake & Output 03/16/25 03/17/25 03/18/25 03/19/25 23:59 23:59 23:59 23:59 Intake Total 2166.7 2830 1390 170 Output Total 600 600 145 55 Balance 1566.7 2230 1245 115 Meds/Results Medications: Active Medications Generic Name Dose Route Start Last Admin Trade Name Freq PRN Reason Stop Dose Admin Acetaminophen 650 mg 03/13/25 02:01 03/17/25 17:45 Acetaminophen 325 Mg Tablet PO 650 mg Q6H PRN Administration fever or pain Albuterol 2.5 mg 03/10/25 23:09 Albuterol Sulfate Neb 2.5 Mg/3 Ml Inh INHALATION Q6HRT PRN shortness of breath or wheezing Alprazolam 0.25 mg 03/10/25 23:09 03/19/25 09:01 Alprazolam (*Crx) 0.25 Mg Tablet PO 0.25 mg TID PRN Administration anxiety Dextrose 12.5 gm 03/10/25 23:10 Dextrose 50% 25 Gm/50 Ml Syringe IV PUSH PRN PRN Hypoglycemia Protocol Fluticasone Propionate 1 spray 03/11/25 00:29 Fluticasone Propionate 0.05% Na Spr 16 Gm Btl (*Bkc) NASAL Q12H PRN allergy symptoms Glucagon 1 mg 03/10/25 23:10 Glucagon For Inj 1 Mg Vial IM PRN PRN Hypoglycemia Protocol Glucose 15 gm 03/10/25 23:10 Glucose Oral Gel 15 Gm Of Glucse In 37.5 Gm Tube PO PRN PRN Hypoglycemia Protocol Dextrose 1,000 mls @ 100 mls/hr 03/10/25 23:10 Dextrose 5% 1,000 Ml IVPB PRN PRN Hypoglycemia Protocol Piperacillin/Tazobactam/Dextrose 3.375 gm in 50 mls @ 100 mls/hr 03/16/25 12:00 03/19/25 05:39 Zosyn 3.375 Gm/Ns 50 Ml IVPB Infused Q6HR KANDIS Infusion Insulin Aspart 4 - 8 units 03/11/25 08:00 03/19/25 08:58 Insulin Aspart (*Bkc) 100 Units/Ml SUB-Q Not Given TIDWM [facility] Protocol Insulin Glargine 8 units 03/15/25 21:00 03/18/25 21:16 Insulin Glargine (*Bkc) 100 Units/Ml SUB-Q Not Given HS [facility] Magnesium Oxide 400 mg 03/14/25 09:00 03/19/25 09:00 Magnesium Oxide 400 Mg Tablet PO 400 mg DAILY KANDIS Administration Metoprolol Succinate 37.5 mg 03/11/25 09:00 03/19/25 09:01 Metoprolol Succinate Ext Rel 12.5 Mg Tabcr PO 37.5 mg Q12HR KANDIS Administration Miconazole Nitrate 1 applic 03/11/25 09:00 03/19/25 09:02 Miconazole Nitrate 2% Cream 30 Gm Tube TOPICAL 1 applic BID [facility] Administration Morphine Sulfate 2 mg 03/11/25 10:29 03/18/25 13:06 Morphine Sulfate (*Crx) 2 Mg/Ml Inj IV PUSH 2 mg Q2H PRN Administration Pain Rated 4-6 Morphine Sulfate 4 mg 03/11/25 10:28 03/16/25 20:49 Morphine Sulfate (*Crx) 4 Mg/Ml Inj IV PUSH 4 mg Q2H PRN Administration Pain Rated 7-10 Pantoprazole Sodium 40 mg 03/11/25 09:00 03/19/25 09:01 Pantoprazole 40 Mg Tablet PO 40 mg Q12HR KANDIS Administration Phenazopyridine HCl 100 mg 03/18/25 09:59 03/18/25 13:06 Phenazopyridine Hcl 100 Mg Tablet PO 100 mg ONCE PRN Administration catheter pain Simethicone 80 mg 03/12/25 02:31 03/18/25 08:21 Simethicone 80 Mg Tab.Chew PO 80 mg QID PRN Administration Gas Discomfort Sodium Chloride 10 ml 03/12/25 14:00 03/19/25 05:13 Central Line Flush IV PUSH 10 ml Q8HR KANDIS Administration Sodium Chloride 10 ml 03/12/25 09:29 Central Line Flush IV PUSH PRN PRN with TPN bag changes Sodium Chloride 20 ml 03/12/25 09:29 03/16/25 04:01 Central Line Flush IV PUSH 20 ml PRN PRN Administration after blood draws Spironolactone 50 mg 03/11/25 09:00 03/19/25 09:00 Spironolactone 25 Mg Tablet PO 50 mg BID KANDIS Administration Tamsulosin HCl 0.4 mg 03/11/25 09:00 03/19/25 09:00 Tamsulosin Hcl 0.4 Mg Capsule PO 0.4 mg QAM KANDIS Administration Radiology Results: ITS Impressions Chest X-Ray 03/12/25 09:24 Impression: 1: Extensive stable bilateral airspace disease which may represent edema or pneumonia. 2: Bilateral pleural effusions without change. Abdomen/Pelvis CT 03/15/25 06:20 Impression: Large pelvic abscess along the right side of the distal rectum measuring approximately 15 x 6.8 x 8.5 cm. Interval placement of drainage catheter via right transgluteal approach with pigtail probably just within the collection. Correlate with tube output. 2.0 x 1.3 cm right renal pelvis stone without marnie hydronephrosis. Additional small nonobstructing stones, as above. Cholelithiasis and gallbladder sludge. Moderate to large bilateral pleural effusions with extensive bilateral lower lobe atelectasis. Catheter Placement CT 03/17/25 17:08 IMPRESSION: 1. Successful CT-guided transgluteal percutaneous abscess drainage catheter replacement. 2. 50 mL fluid was sent for aerobic and anaerobic cultures. 3. The catheter will be managed by Dr. Goins. Labs Labs: Laboratory Results - last 24 hr 03/18/25 03/18/25 03/18/25 11:40 16:48 21:15 WBC RBC Hgb Hct MCV MCH MCHC RDW Plt Count MPV Immature Gran % (Auto) Neut % (Auto) Lymph % (Auto) [place] % (Auto) Eos % (Auto) Baso % (Auto) Lymph # (Auto) [place] # (Auto) Eos # (Auto) Baso # (Auto) Abs Immat Gran (auto) Absolute Neuts (auto) Absolute Nucleated RBC Band Neutrophils % Nucleated RBC % Platelet Estimate Hypochromasia Anisocytosis [place] Cells Crenated Cell Schistocytes Sodium Potassium Chloride Carbon Dioxide Anion Gap BUN Creatinine Estim Creat Clear Calc Estimated GFR Glucose POC Capillary Glucose 168 H 165 H 166 H Calcium Magnesium Total Bilirubin AST ALT Alkaline Phosphatase Total Protein Albumin 03/19/25 03/19/25 06:04 08:25 WBC 15.1 H RBC 3.34 L Hgb 9.1 L Hct 30.1 L MCV 90.1 MCH 27.2 MCHC 30.2 L RDW 24.1 H Plt Count 422 H MPV 9.3 Immature Gran % (Auto) 0.9 H Neut % (Auto) 91.4 H Lymph % (Auto) 2.9 L [place] % (Auto) 4.4 Eos % (Auto) 0.1 Baso % (Auto) 0.3 Lymph # (Auto) 0.44 L [place] # (Auto) 0.7 H Eos # (Auto) 0.0 Baso # (Auto) 0.0 Abs Immat Gran (auto) 0.14 H Absolute Neuts (auto) 13.8 H Absolute Nucleated RBC 0.000 Band Neutrophils % Not Reportable Nucleated RBC % 0.0 Platelet Estimate Increased Hypochromasia 1+ Anisocytosis 2+ [place] Cells 1+ Crenated Cell 1+ Schistocytes None seen Sodium 144 Potassium 3.1 L Chloride 111 H Carbon Dioxide 26 Anion Gap 7 BUN 11 Creatinine 0.46 L Estim Creat Clear Calc 103 Estimated GFR > 60 Glucose 154 H POC Capillary Glucose 159 H Calcium 8.0 L Magnesium 1.8 Total Bilirubin 0.4 AST 14 ALT 6 Alkaline Phosphatase 107 Total Protein 5.5 L Albumin 2.1 L Quality VTE Prophylaxis VTE prophylaxis: mechanical ordered
[2025-03-19 12:12] LABS: Glucose Point of Care 173 mg/dl (65-105)
[2025-03-19] MEDS: POTASSIUM CHLORIDE INJ 40 MEQ in SODIUM CHLORIDE 0.9% IV 500 ML 130 MEQ IVPB ×2 (12:48→16:55)
[2025-03-19] MEDS: ACETAMINOPHEN 325 MG TABLET 650 MG PO (12:50)
[2025-03-19 14:00] VITALS: BP 136/70; PULSE 75; RESP 16; TEMP 36.9; O2SAT 100
--- NOTE | 2025-03-19 15:15 | PCNFU ---
Nutrition Follow-Up Complete: Severe protein calorie malnutrition related to loss of appetite, altered GI function as evidenced by intakes <50% >7 days; weight loss 15%/1 month; moderate muscle wasting and fat loss Tolerate diet - Progressing Meet nutrition needs - Progressing with intakes. Continue same goal Goal: Pt current nutrition is Low fiber diet. Nutrition recommendation: Oral nutrition supplement: Ensure Enlive TID (350 kcal, 20 g protein) Last recorded weight is 94.3 kg. Bowel Motility: +2 BM today 03/19 Labs Reviewed: Hgb 9.1, Hct 30.1, Alb 2.1, K+ 3.1, Cre 0.46, Glu 154 Meds Noted: Protonix, insulin Skin: Incision Additional Notes: Progressing with intakes. Will add supplements. Contineu to monitor Monitoring diet orders, weights, labs, intakes, plan of care Follow up in 3 days
[2025-03-19 16:53] LABS: Glucose Point of Care 182 mg/dl (65-105)
[2025-03-19] MEDS: MORPHINE SULFATE (*CRX) 2 MG/ML INJ IV PUSH (17:00)
[2025-03-19 21:12] VITALS: PULSE 78
[2025-03-19 21:15] VITALS: BP 144/79; PULSE 78; RESP 16; TEMP 36.4; O2SAT 96
[2025-03-19 22:18] LABS: Glucose Point of Care 166 mg/dl (65-105)
[2025-03-20] MEDS: ACETAMINOPHEN 325 MG TABLET 650 MG PO ×2 (00:52→13:55)
[2025-03-20] MEDS: SIMETHICONE 80 MG TAB.CHEW PO ×3 (00:53→14:04)
[2025-03-20] MEDS: MORPHINE SULFATE (*CRX) 2 MG/ML INJ IV PUSH (03:58)
[2025-03-20 04:37] VITALS: BP 123/85; PULSE 100; RESP 16; TEMP 36.7; O2SAT 97
[2025-03-20] MEDS: PIPERACILLN/TAZ 3.375GM/NS50ML 3.375 GM/50 ML BAG IVPB ×4 (05:26→23:43)
[2025-03-20] MEDS: CENTRAL LINE FLUSH 10 ML IV PUSH (05:32)
[2025-03-20 06:28] LABS: Basophils Percent Auto 0.1 % (0.2-1.2); Eosinophils Percent Auto 0.2 % (0-4.4); Hematocrit 30.3 % (37.0-47.0); Hemoglobin 9.1 g/dL (12.0-15.0); Immature Granulocyte Percent A 0.7 % (0-0.5); Lymphocytes Absolute Auto 0.43 K/mm3 (0.9-3.2); Mean Corpuscular Hemoglobin 27.5 pg (26-34); Mean Corpuscular Volume 91.5 fl (80-100); Mean Platelet Volume 9.3 fl (7.4-10.4); Monocytes Absolute Auto 0.6 K/mm3 (0.1-0.6); Monocytes Percent Auto 4.2 % (2.6-8.5); Neutrophils Absolute Auto 13.3 K/mm3 (1.3-6.7); Neutrophils Percent Auto 91.8 % (45.5-73.1); Platelet Count Result 272 k/mm3 (150-375); Red Blood Count 3.31 M/mm3 (4.2-5.4); Red Cell Distribution Width 24.6 % (11.5-14.5); White Blood Count 14.5 K/mm3 (4.5-10.0)
[2025-03-20 06:44] LABS: Alanine Aminotransferase 7 U/L (6-35); Albumin Level 2.2 g/dL (3.5-5.1); Alkaline Phosphatase 112 U/L (38-126); Anion Gap 2 mmol/L (4-12); Aspartate Amino Transferase 17 U/L (14-36); Bilirubin,Total 0.5 mg/dL (0.2-1.3); Blood Urea Nitrogen 8 mg/dL (7-17); Calcium 8.1 mg/dL (8.4-10.2); Carbon Dioxide 31 mmol/L (22-30); Chloride 110 mmol/L (98-107); Estimated CRCL calculation 124 ml/min; Estimated Glomerular Filt Rate > 60; Glucose 155 mg/dL (65-110); Magnesium 1.9 mg/dL (1.6-2.3); Potassium 3.6 mmol/L (3.4-5.0); Sodium 143 mmol/L (137-145); Total Protein 5.8 g/dL (6.3-8.2)
[2025-03-20 06:53] LABS: Anisocytosis 1+; Platelet Estimate Adequate (Adequate)
[2025-03-20 06:54] LABS: Schistocytes None Seen
[2025-03-20] MEDS: ALPRAZolam (*CRX) 0.25 MG TABLET PO ×2 (07:51→13:55)
[2025-03-20 08:09] LABS: Glucose Point of Care 155 mg/dl (65-105)
[2025-03-20 08:12] VITALS: PULSE 100
[2025-03-20] MEDS: SPIRONOLACTONE 25 MG TABLET 50 MG PO ×2 (08:12→16:19)
[2025-03-20] MEDS: TAMSULOSIN HCL 0.4 MG CAPSULE PO (08:12)
[2025-03-20] MEDS: MAGNESIUM OXIDE 400 MG TABLET PO (08:12)
[2025-03-20] MEDS: METOPROLOL SUCCINATE EXT REL 12.5 MG TABCR 37.5 MG PO ×2 (08:12→21:32)
[2025-03-20] MEDS: PANTOPRAZOLE 40 MG TABLET PO ×2 (08:12→21:34)
--- NOTE | 2025-03-20 11:48 | P.PNIM_ITS ---
Progress Note: A&P Assessment and Plan (1) Intra-abdominal abscess: Code(s): K65.1 - Peritoneal abscess Status: Acute Assessment and Plan: -Prior intraabdominal abscess s/p drain placement with complications related to diverticulitis was known -Repeat CT due to Left flank pain showed worsening of abscess and concern for bowel perforation due to extraluminal gas on CT -ER started Rocephin and Flagyl -General surgery consulted 03/12 - schedule for drain placement today with radiology continue ceftriaxone 1gm q24h, flagyl 500 mg q8h - drain is placed 03/12 pain is better -03/14 wbc increased-20.3 today on ceftriaxone -will continue for now 03/15 wbc a bit better today CT repeated Large pelvic abscess along the right side of the distal rectum measuring approximately 15 x 6.8 x 8.5 cm. Interval placement of drainage catheter via right transgluteal approach with pigtail probably just within the collection. Correlate with tube output. 2.0 x 1.3 cm right renal pelvis stone without marnie hydronephrosis. Additional small nonobstructing stones, as above. Cholelithiasis and gallbladder sludge. Moderate to large bilateral pleural effusions with extensive bilateral lower lobe atelectasis - issues with drain as it was not draining as it should of - surgery is disusing with radiology replacing it - IS ordered, needs to get out of bed TID with meals continue working with PT/OT 03/16 ct with drain replacement today Abscess preliminary cultures showing growth of Bacteroides fragilis - discussed with ID pharmacy- switched antibiotics to Zosyn 03/17: IR drain placement today via surg. Replace perc drain vs place second drain -Continue Zosyn for abscess final cultures yielding growth of Bacteroides fragilis -Encouraged IS use and participation in PT/OT -WBC today: 28.7, up from 17.3 yesterday, continue to trend 03/18: Pt groggy today, but thinks she is feeling better since yesterday -Continue Zosyn for abscess final cultures yielding growth of Bacteroides fragilis -Encouraged IS use and participation in PT/OT -WBC today: Now trending down s/p IR drain placement, 16.3 today, will continue to trend with AM labs 03/19: Pt wide awake and working with therapy sitting up in chair -Continue Zosyn for abscess final cultures yielding growth of Bacteroides fragil is -Prelim Aerobic culture of abd fluid yielding Escherichia Coli (continue Zosyn) & Enterococcus Casselifavus (see below) -->Since pt has been stable and WBC downtrending, will await final culture to start with linezolid or daptomycin to treat Enterococcus Casselifavus -Encouraged IS use and participation in PT/OT -WBC today: Now trending down s/p IR drain placement, 15.1 today, will continue to trend with AM labs 03/20: Pt continuing to look better, not c/o of much pain. -Continue Zosyn for abscess final cultures yielding growth of Bacteroides fragilis -Prelim Aerobic culture of abd fluid yielding Escherichia Coli (continue Zosyn), Enterococcus Casselifavus (see below), & and Citrobacter Koseri (continue Zosyn) -->Since pt has been stable and WBC downtrending, will await final culture to start with linezolid or daptomycin to treat Enterococcus Casselifavus -Encouraged IS use and participation in PT/OT -WBC today: Now trending down s/p IR drain placement, 14.5 today, will continue to trend with AM labs Per surg rounds today: White blood cell count slowly improving. Drain in place and working adequately. Continue IV antibiotics and percutaneous drain (2) Type 2 diabetes mellitus with hyperglycemia: Code(s): E11.65 - Type 2 diabetes mellitus with hyperglycemia Status: Acute Assessment and Plan: -Resume Lantus on 03/11/25 -ACHS fingerstick glucose with SSI high dose -A1c 9.6 on 01/26/25, probably improved since then since in the hospital/acute rehab the whole time -decreased lantus to 8 units tonight 03/15- since diminished appetite- to avoid hypoglycemia -Pt appetite back to normal, fasting BS have been increasing - now in 150's. Will revert back to nml home dose of lantus, 10units (3) Hypokalemia: Code(s): E87.6 - Hypokalemia Status: Acute Assessment and Plan: -replace and monitor 3.4 today monitor for now 3.1 today- will replace and monitor 10- 3.4- continue replacement 03/17: 3.3, continue to monitor with daily labs 03/18: 3.1, will replace with 40 mEq IV today and continue to monitor -->Pt taking spironolactone 50mg BID, will continue with daily labs 03/19: 3.1, will replace with 80 mEq IV today and continue to monitor. May add on oral tomorrow if still not adequately supplemented. -Mag has been WDL 03/20: 3.6, will start K suppl today (packet) since plan to start one time dose of Lasix for BUE increased swelling -Per pt, she used to be on Lasix PRN for swelling as well as a potassium suppl ement. -Will continue to trend CMP due to Lasix one time dose, K suppl, and spironolactone use (4) Paroxysmal atrial fibrillation with RVR: Code(s): I48.0 - Paroxysmal atrial fibrillation Status: Acute Assessment and Plan: -Anticoagulation not recommended at this time due to likely need for surgical intervention (IR yesterday) -Monitor Vital Signs Q4H and PRN -Has been in NST (5) UTI (urinary tract infection): Qualifiers: Hematuria presence: without hematuria Urinary tract infection type: acute cystitis Qualified Code(s): N30.00 - Acute cystitis without hematuria Code(s): N39.0 - Urinary tract infection, site not specified Status: Ruled-out Assessment and Plan: -Chronic indwelling Burgos catheter -UA appears potentially infected -Urine culture ordered, E coli -Blood cultures obtained, WDL -cultures are back -continue Zosyn Per nursing, pt experiencing discomfort with burgos catheter. I advised the use of lubrication about the insertion tube area as well as a PRN dose for Pyridium. (6) Critical illness myopathy: Code(s): G72.81 - Critical illness myopathy Status: Acute Assessment and Plan: -Patient generally weak s/p prolonged, complicated hospitalization -Not making much progress at acute rehab - PT/OT ordered and pt has been working with them (7) Hx of cardiac arrest: Code(s): Z86.74 - Personal history of sudden cardiac arrest Status: Acute Assessment and Plan: -Prior hospitalization complicated by cardiac arrest during procedure to place drain into intraabdominal abscess -Led to prolonged stay and significant weakness (8) Sacral decubitus ulcer: Code(s): L89.159 - Pressure ulcer of sacral region, unspecified stage Status: Acute Assessment and Plan: -Wound care consulted for apparent sacral pressure ulcers -Continue antifungal barrier cream -Turn schedule ordered today, per therapy, pt not turning well Plan PT/OT ordered prior, continue IS, continue IV abx, daily labs, and I&O perc drain. Surg to follow. Subjective Date/time seen: 03/20/25 1400 Interval history: Bharti Neal is a 74 year old female patient admitted to the hospital for findings of increased presacral intraabdominal abscess with concern for bowel perforation. She has a complex past medical history of diverticulitis, DM, HTN, cardiac arrest, septic shock, respiratory failure, abdominal abscess, anemia, hypernatremia, A-fib, hypokalemia, bilateral nephrolithiasis, hematuria, and CHF with recent prolonged admission to this facility. Patient was at [facility] and complained of left flank pain. She reported chills but no fever. No nausea/vomiting or other abdominal pain. Repeat CT scan was obtained which showed significant worsening of known intraabdominal abscess, now with air interspersed concerning for rupture of bowel. Patient admitted on IV antibiotics, NPO and surgical eval. 03/12- pt is seen and examined. Plan is to have drain placed today per radiology. 03/13 doing well. pain is better. drain in place. Resting with eyes closed. 03/14 wbc increased today drain in place, not much output. No appetite, but trying to drink supplements. no new or worsening abd pain, no chills 03/15 seen and examined. still weak, had repeated CT scan. vitals stable, no chills. Issues with drain as it was not draining as it should of. 03/16 CT today with drain replacement. needs a lot of encouragement with any activity and repositioning. Need to work with PT/OT but had been refusing. Discussed the need to do IS and work with PT/OT 03/17: IR to replace perc drain / second drain placement today per their schedule. Visited with pt today, states that she is tired of this process but does see why it is necessary. She states that she is feeling OK and only reports pain in her suprapubic abd when touched. I encouraged her today to continue to use her IS as well as participate with therapy and the importance of each, pt agreeable. 03/18: Pt resting in bed. Pt reports that she is still feeling mildly sluggish from her procedure yesterday but can tell that the drain is now working. Berrios/purulent drainage from perc drain. Only complaint today is some discomfort of her burgos, asked nursing to apply lube to the insertion tube and that I would also order Pyridium PRN for this. Encouraged to keep using her IS today as well as therapy, pt reports that she just did not want to participate in PT/OT one day due to being tired but she has been compliant since. Pt tolerating diet and drinking fluids. Per uro, continue IV abx, will continue to round. 03/19: Pt sitting up in chair with therapy when I entered the room, pt looking better today. Pt only reporting buttock pain, pt requesting Tylenol and I am also ordered a turn schedule to help with pressure on the buttocks. Per surgery team, to stay on IV abx and continue to trend labs (WBC) and drain output. BC prelim cultures back today, see below on plan. 03/20: Pt continues to report that she is feeling better. Daughter at the bedside today. Pt appears more edematous in her BUE today, states that she used to take lasix PRN today this as well as a potassium supplement. Pt denies SOB and CP. See plan below. Review of Systems Review of Systems: All systems reviewed & are unremarkable except as noted in HPI and below Exam Const: General: comfortable and no acute distress Other: Chronically ill-appearing, obese HENMT: Face/Nose/Sinus: Normal nares present Mouth: Yes moist mucous membranes Eyes: General: appearance normal, both eyes and all related structures Sclera: sclerae normal Neck: Neck: supple and no JVD Resp: Effort & Inspection: normal respiratory effort Auscultation: clear to auscultation bilaterally Cardio: Rate: regular rate Rhythm: regular rhythm GI: Inspection: non-distended Auscultation: normal bowel sounds Other: R perc drain draining brown/purulent fluid, small amount compared to yesterday Urinary Catheter: Urinary Catheter: patent and draining and urine dark Skin: General skin exam: normal color Other: Sacral/L buttock pressure maceration noted, not open, antifungal cream applied Neuro: Speech: normal speech Motor exam (neuro): Normal motor muscle tone present throughout Sensory Exam: normal sensation Extrem: General: normal to inspection and edema (BUE, 2+ today) bilateral Psych: Mental Status: mental status grossly normal Affect: normal affect Objective Data Vital Signs Vital Signs: Vital Signs - 24 hr 03/19/25 14:00 03/19/25 21:12 03/19/25 21:15 Temperature 98.5 F 97.6 F Pulse Rate 75 78 78 Respiratory Rate 16 16 Blood Pressure 136/70 144/79 H Pulse Oximetry 100 96 03/20/25 04:37 03/20/25 08:12 Temperature 98.0 F Pulse Rate 100 100 Respiratory Rate 16 Blood Pressure 123/85 Pulse Oximetry 97 Intake/Output Intake/Output: Intake & Output 03/17/25 03/18/25 03/19/25 03/20/25 23:59 23:59 23:59 23:59 Intake Total 2830 1390 1652 640 Output Total 600 145 55 800 Balance 2230 1245 1597 -160 Meds/Results Medications: Active Medications Generic Name Dose Route Start Last Admin Trade Name Freq PRN Reason Stop Dose Admin Acetaminophen 650 mg 03/13/25 02:01 03/20/25 00:52 Acetaminophen 325 Mg Tablet PO 650 mg Q6H PRN Administration fever or pain Albuterol 2.5 mg 03/10/25 23:09 Albuterol Sulfate Neb 2.5 Mg/3 Ml Inh INHALATION Q6HRT PRN shortness of breath or wheezing Alprazolam 0.25 mg 03/10/25 23:09 03/20/25 07:51 Alprazolam (*Crx) 0.25 Mg Tablet PO 0.25 mg TID PRN Administration anxiety Dextrose 12.5 gm 03/10/25 23:10 Dextrose 50% 25 Gm/50 Ml Syringe IV PUSH PRN PRN Hypoglycemia Protocol Fluticasone Propionate 1 spray 03/11/25 00:29 Fluticasone Propionate 0.05% Na Spr 16 Gm Btl (*Bkc) NASAL Q12H PRN allergy symptoms Glucagon 1 mg 03/10/25 23:10 Glucagon For Inj 1 Mg Vial IM PRN PRN Hypoglycemia Protocol Glucose 15 gm 03/10/25 23:10 Glucose Oral Gel 15 Gm Of Glucse In 37.5 Gm Tube PO PRN PRN Hypoglycemia Protocol Dextrose 1,000 mls @ 100 mls/hr 03/10/25 23:10 Dextrose 5% 1,000 Ml IVPB PRN PRN Hypoglycemia Protocol Piperacillin/Tazobactam/Dextrose 3.375 gm in 50 mls @ 100 mls/hr 03/16/25 12:00 03/20/25 05:56 Zosyn 3.375 Gm/Ns 50 Ml IVPB Infused Q6HR KANDIS Infusion Insulin Aspart 4 - 8 units 03/11/25 08:00 03/20/25 08:21 Insulin Aspart (*Bkc) 100 Units/Ml SUB-Q Not Given TIDWM [facility] Protocol Insulin Glargine 8 units 03/15/25 21:00 03/19/25 21:18 Insulin Glargine (*Bkc) 100 Units/Ml SUB-Q Not Given HS KANDIS Magnesium Oxide 400 mg 03/14/25 09:00 03/20/25 08:12 Magnesium Oxide 400 Mg Tablet PO 400 mg DAILY KANDIS Administration Metoprolol Succinate 37.5 mg 03/11/25 09:00 03/20/25 08:12 Metoprolol Succinate Ext Rel 12.5 Mg Tabcr PO 37.5 mg Q12HR KANDIS Administration Miconazole Nitrate 1 applic 03/11/25 09:00 03/19/25 16:39 Miconazole Nitrate 2% Cream 30 Gm Tube TOPICAL 1 applic BID KANDIS Administration Miscellaneous Information 1 each 03/20/25 00:01 Please Renew Miconazole Cream. Per [employer] Procedure, It Will Discontinue If Not Renewed. XX 04/19/25 00:00 [facility] Miscellaneous Information 1 each 03/20/25 00:01 Please Renew Both Morphine Ivp Doses. Per [employer] Procedure, It Will Discontinue If Not R XX 04/19/25 00:00 [facility] Morphine Sulfate 2 mg 03/11/25 10:29 03/20/25 03:58 Morphine Sulfate (*Crx) 2 Mg/Ml Inj IV PUSH 2 mg Q2H PRN Administration Pain Rated 4-6 Morphine Sulfate 4 mg 03/11/25 10:28 03/16/25 20:49 Morphine Sulfate (*Crx) 4 Mg/Ml Inj IV PUSH 4 mg Q2H PRN Administration Pain Rated 7-10 Pantoprazole Sodium 40 mg 03/11/25 09:00 03/20/25 08:12 Pantoprazole 40 Mg Tablet PO 40 mg Q12HR KANDIS Administration Phenazopyridine HCl 100 mg 03/18/25 09:59 03/18/25 13:06 Phenazopyridine Hcl 100 Mg Tablet PO 100 mg ONCE PRN Administration catheter pain Simethicone 80 mg 03/12/25 02:31 03/20/25 08:12 Simethicone 80 Mg Tab.Chew PO 80 mg QID PRN Administration Gas Discomfort Sodium Chloride 10 ml 03/12/25 14:00 03/20/25 05:32 Central Line Flush IV PUSH 10 ml Q8HR KANDIS Administration Sodium Chloride 10 ml 03/12/25 09:29 Central Line Flush IV PUSH PRN PRN with TPN bag changes Sodium Chloride 20 ml 03/12/25 09:29 03/16/25 04:01 Central Line Flush IV PUSH 20 ml PRN PRN Administration after blood draws Spironolactone 50 mg 03/11/25 09:00 03/20/25 08:12 Spironolactone 25 Mg Tablet PO 50 mg BID KANDIS Administration Tamsulosin HCl 0.4 mg 03/11/25 09:00 03/20/25 08:12 Tamsulosin Hcl 0.4 Mg Capsule PO 0.4 mg QAM KANDIS Administration Radiology Results: ITS Impressions Chest X-Ray 03/12/25 09:24 Impression: 1: Extensive stable bilateral airspace disease which may represent edema or pneumonia. 2: Bilateral pleural effusions without change. Abdomen/Pelvis CT 03/15/25 06:20 Impression: Large pelvic abscess along the right side of the distal rectum measuring approximately 15 x 6.8 x 8.5 cm. Interval placement of drainage catheter via right transgluteal approach with pigtail probably just within the collection. Correlate with tube output. 2.0 x 1.3 cm right renal pelvis stone without marnie hydronephrosis. Additional small nonobstructing stones, as above. Cholelithiasis and gallbladder sludge. Moderate to large bilateral pleural effusions with extensive bilateral lower lobe atelectasis. Catheter Placement CT 03/17/25 17:08 IMPRESSION: 1. Successful CT-guided transgluteal percutaneous abscess drainage catheter replacement. 2. 50 mL fluid was sent for aerobic and anaerobic cultures. 3. The catheter will be managed by Dr. Goins. Labs Labs: Laboratory Results - last 24 hr 03/19/25 03/19/25 03/19/25 11:48 16:45 21:18 WBC RBC Hgb Hct MCV MCH MCHC RDW Plt Count MPV Immature Gran % (Auto) Neut % (Auto) Lymph % (Auto) Wheeler % (Auto) Eos % (Auto) Baso % (Auto) Lymph # (Auto) Wheeler # (Auto) Eos # (Auto) Baso # (Auto) Abs Immat Gran (auto) Absolute Neuts (auto) Absolute Nucleated RBC Band Neutrophils % Nucleated RBC % Platelet Estimate Anisocytosis Schistocytes Sodium Potassium Chloride Carbon Dioxide Anion Gap BUN Creatinine Estim Creat Clear Calc Estimated GFR Glucose POC Capillary Glucose 173 H 182 H 166 H Calcium Magnesium Total Bilirubin AST ALT Alkaline Phosphatase Total Protein Albumin 03/20/25 03/20/25 03/20/25 06:04 06:05 07:55 WBC 14.5 H RBC 3.31 L Hgb 9.1 L Hct 30.3 L MCV 91.5 MCH 27.5 MCHC 30.0 L RDW 24.6 H Plt Count 272 MPV 9.3 Immature Gran % (Auto) 0.7 H Neut % (Auto) 91.8 H Lymph % (Auto) 3.0 L Wheeler % (Auto) 4.2 Eos % (Auto) 0.2 Baso % (Auto) 0.1 L Lymph # (Auto) 0.43 L Wheeler # (Auto) 0.6 Eos # (Auto) 0.0 Baso # (Auto) 0.0 Abs Immat Gran (auto) 0.10 H Absolute Neuts (auto) 13.3 H Absolute Nucleated RBC 0.000 Band Neutrophils % Not Reportable Nucleated RBC % 0.0 Platelet Estimate Adequate Anisocytosis 1+ Schistocytes None seen Sodium 143 Potassium 3.6 Chloride 110 H Carbon Dioxide 31 H Anion Gap 2 L BUN 8 Creatinine 0.37 L Estim Creat Clear Calc 124 Estimated GFR > 60 Glucose 155 H POC Capillary Glucose 155 H Calcium 8.1 L Magnesium 1.9 Total Bilirubin 0.5 AST 17 ALT 7 Alkaline Phosphatase 112 Total Protein 5.8 L Albumin 2.2 L Quality VTE Prophylaxis VTE prophylaxis: mechanical ordered
[2025-03-20 12:18] LABS: Glucose Point of Care 189 mg/dl (65-105)
--- NOTE | 2025-03-20 12:42 | PM.PNGS ---
Progress Note: A&P Assessment and Plan (1) Intra-abdominal abscess: Code(s): K65.1 - Peritoneal abscess Status: Acute Assessment and Plan: White blood cell count slowly improving. Drain in place and working adequately. Continue IV antibiotics and percutaneous drain Subjective Subjective Date/Time Seen: 03/20/25 12:42 Patient reports: no new complaints, tolerating a regular diet, bowel movement and afebrile Exam Const: General: comfortable, alert and awake GI: Inspection: non-distended, obesity and other (Purulent fluid in pigtail drain) GI Palp: Yes Soft to palpation, No Tenderness to palpation present (GI), No Guarding due to palpation present (GI) and No Palpable mass present Objective Data Vital Signs Vital Signs: Vital Signs - 24 hr 03/19/25 14:00 03/19/25 21:12 03/19/25 21:15 Temperature 36.9 C 36.4 C Pulse Rate 75 78 78 Respiratory Rate 16 16 Blood Pressure 136/70 144/79 H Pulse Oximetry 100 96 03/20/25 04:37 03/20/25 08:12 Temperature 36.7 C Pulse Rate 100 100 Respiratory Rate 16 Blood Pressure 123/85 Pulse Oximetry 97 Intake/Output Intake/Output: Intake & Output 03/17/25 03/18/25 03/19/25 03/20/25 23:59 23:59 23:59 23:59 Intake Total 2830 1390 1652 640 Output Total 600 145 55 800 Balance 2230 1245 1597 -160 Meds/Results Medications: Active Medications Generic Name Dose Route Start Last Admin Trade Name Freq PRN Reason Stop Dose Admin Acetaminophen 650 mg 03/13/25 02:01 03/20/25 00:52 Acetaminophen 325 Mg Tablet PO 650 mg Q6H PRN Administration fever or pain Albuterol 2.5 mg 03/10/25 23:09 Albuterol Sulfate Neb 2.5 Mg/3 Ml Inh INHALATION Q6HRT PRN shortness of breath or wheezing Alprazolam 0.25 mg 03/10/25 23:09 03/20/25 07:51 Alprazolam (*Crx) 0.25 Mg Tablet PO 0.25 mg TID PRN Administration anxiety Dextrose 12.5 gm 03/10/25 23:10 Dextrose 50% 25 Gm/50 Ml Syringe IV PUSH PRN PRN Hypoglycemia Protocol Fluticasone Propionate 1 spray 03/11/25 00:29 Fluticasone Propionate 0.05% Na Spr 16 Gm Btl (*Bkc) NASAL Q12H PRN allergy symptoms Glucagon 1 mg 03/10/25 23:10 Glucagon For Inj 1 Mg Vial IM PRN PRN Hypoglycemia Protocol Glucose 15 gm 03/10/25 23:10 Glucose Oral Gel 15 Gm Of Glucse In 37.5 Gm Tube PO PRN PRN Hypoglycemia Protocol Dextrose 1,000 mls @ 100 mls/hr 03/10/25 23:10 Dextrose 5% 1,000 Ml IVPB PRN PRN Hypoglycemia Protocol Piperacillin/Tazobactam/Dextrose 3.375 gm in 50 mls @ 100 mls/hr 03/16/25 12:00 03/20/25 12:05 Zosyn 3.375 Gm/Ns 50 Ml IVPB 100 mls/hr Q6HR KANDIS Administration Insulin Aspart 4 - 8 units 03/11/25 08:00 03/20/25 12:10 Insulin Aspart (*Bkc) 100 Units/Ml SUB-Q Not Given TIDWM KANDIS Protocol Insulin Glargine 8 units 03/15/25 21:00 03/19/25 21:18 Insulin Glargine (*Bkc) 100 Units/Ml SUB-Q Not Given HS KANDIS Magnesium Oxide 400 mg 03/14/25 09:00 03/20/25 08:12 Magnesium Oxide 400 Mg Tablet PO 400 mg DAILY KANDIS Administration Metoprolol Succinate 37.5 mg 03/11/25 09:00 03/20/25 08:12 Metoprolol Succinate Ext Rel 12.5 Mg Tabcr PO 37.5 mg Q12HR KANDIS Administration Miconazole Nitrate 1 applic 03/11/25 09:00 03/19/25 16:39 Miconazole Nitrate 2% Cream 30 Gm Tube TOPICAL 1 applic BID KANDIS Administration Miscellaneous Information 1 each 03/20/25 00:01 Please Renew Miconazole Cream. Per [employer] Procedure, It Will Discontinue If Not Renewed. XX 04/19/25 00:00 CLARIFY KANDIS Miscellaneous Information 1 each 03/20/25 00:01 Please Renew Both Morphine Ivp Doses. Per [employer] Procedure, It Will Discontinue If Not R XX 04/19/25 00:00 CLARIFY KANDIS Morphine Sulfate 2 mg 03/11/25 10:29 03/20/25 03:58 Morphine Sulfate (*Crx) 2 Mg/Ml Inj IV PUSH 2 mg Q2H PRN Administration Pain Rated 4-6 Morphine Sulfate 4 mg 03/11/25 10:28 03/16/25 20:49 Morphine Sulfate (*Crx) 4 Mg/Ml Inj IV PUSH 4 mg Q2H PRN Administration Pain Rated 7-10 Pantoprazole Sodium 40 mg 03/11/25 09:00 03/20/25 08:12 Pantoprazole 40 Mg Tablet PO 40 mg Q12HR KANDIS Administration Phenazopyridine HCl 100 mg 03/18/25 09:59 03/18/25 13:06 Phenazopyridine Hcl 100 Mg Tablet PO 100 mg ONCE PRN Administration catheter pain Simethicone 80 mg 03/12/25 02:31 03/20/25 08:12 Simethicone 80 Mg Tab.Chew PO 80 mg QID PRN Administration Gas Discomfort Sodium Chloride 10 ml 03/12/25 14:00 03/20/25 05:32 Central Line Flush IV PUSH 10 ml Q8HR KANDIS Administration Sodium Chloride 10 ml 03/12/25 09:29 Central Line Flush IV PUSH PRN PRN with TPN bag changes Sodium Chloride 20 ml 03/12/25 09:29 03/16/25 04:01 Central Line Flush IV PUSH 20 ml PRN PRN Administration after blood draws Spironolactone 50 mg 03/11/25 09:00 03/20/25 08:12 Spironolactone 25 Mg Tablet PO 50 mg BID KANDIS Administration Tamsulosin HCl 0.4 mg 03/11/25 09:00 03/20/25 08:12 Tamsulosin Hcl 0.4 Mg Capsule PO 0.4 mg QAM KANDIS Administration Radiology Results: ITS Impressions Chest X-Ray 03/12/25 09:24 Impression: 1: Extensive stable bilateral airspace disease which may represent edema or pneumonia. 2: Bilateral pleural effusions without change. Abdomen/Pelvis CT 03/15/25 06:20 Impression: Large pelvic abscess along the right side of the distal rectum measuring approximately 15 x 6.8 x 8.5 cm. Interval placement of drainage catheter via right transgluteal approach with pigtail probably just within the collection. Correlate with tube output. 2.0 x 1.3 cm right renal pelvis stone without marnie hydronephrosis. Additional small nonobstructing stones, as above. Cholelithiasis and gallbladder sludge. Moderate to large bilateral pleural effusions with extensive bilateral lower lobe atelectasis. Catheter Placement CT 03/17/25 17:08 IMPRESSION: 1. Successful CT-guided transgluteal percutaneous abscess drainage catheter replacement. 2. 50 mL fluid was sent for aerobic and anaerobic cultures. 3. The catheter will be managed by Dr. Goins. Labs Labs: Laboratory Results - last 24 hr 03/19/25 03/19/25 03/20/25 16:45 21:18 06:04 WBC 14.5 H RBC 3.31 L Hgb 9.1 L Hct 30.3 L MCV 91.5 MCH 27.5 MCHC 30.0 L RDW 24.6 H Plt Count 272 MPV 9.3 Immature Gran % (Auto) 0.7 H Neut % (Auto) 91.8 H Lymph % (Auto) 3.0 L [place] % (Auto) 4.2 Eos % (Auto) 0.2 Baso % (Auto) 0.1 L Lymph # (Auto) 0.43 L [place] # (Auto) 0.6 Eos # (Auto) 0.0 Baso # (Auto) 0.0 Abs Immat Gran (auto) 0.10 H Absolute Neuts (auto) 13.3 H Absolute Nucleated RBC 0.000 Band Neutrophils % Not Reportable Nucleated RBC % 0.0 Platelet Estimate Adequate Anisocytosis 1+ Schistocytes None seen Sodium Potassium Chloride Carbon Dioxide Anion Gap BUN Creatinine Estim Creat Clear Calc Estimated GFR Glucose POC Capillary Glucose 182 H 166 H Calcium Magnesium Total Bilirubin AST ALT Alkaline Phosphatase Total Protein Albumin 03/20/25 03/20/25 03/20/25 06:05 07:55 12:07 WBC RBC Hgb Hct MCV MCH MCHC RDW Plt Count MPV Immature Gran % (Auto) Neut % (Auto) Lymph % (Auto) [place] % (Auto) Eos % (Auto) Baso % (Auto) Lymph # (Auto) [place] # (Auto) Eos # (Auto) Baso # (Auto) Abs Immat Gran (auto) Absolute Neuts (auto) Absolute Nucleated RBC Band Neutrophils % Nucleated RBC % Platelet Estimate Anisocytosis Schistocytes Sodium 143 Potassium 3.6 Chloride 110 H Carbon Dioxide 31 H Anion Gap 2 L BUN 8 Creatinine 0.37 L Estim Creat Clear Calc 124 Estimated GFR > 60 Glucose 155 H POC Capillary Glucose 155 H 189 H Calcium 8.1 L Magnesium 1.9 Total Bilirubin 0.5 AST 17 ALT 7 Alkaline Phosphatase 112 Total Protein 5.8 L Albumin 2.2 L
[2025-03-20 13:44] VITALS: BP 135/79; PULSE 103; RESP 18; TEMP 36.4; O2SAT 99
[2025-03-20] MEDS: MICONAZOLE NITRATE 2% CREAM 30 GM TUBE 1 APPLIC TOPICAL ×2 (14:00→18:19)
[2025-03-20] MEDS: FUROSEMIDE INJ 40 MG/4 ML VIAL IV PUSH (16:19)
[2025-03-20 17:23] LABS: Glucose Point of Care 173 mg/dl (65-105)
[2025-03-20 20:20] VITALS: BP 132/82; PULSE 104; RESP 16; TEMP 36.7; O2SAT 97
[2025-03-20] MEDS: INSULIN GLARGINE (*BKC) 100 UNITS/ML 10 UNITS SUB-Q (21:25)
[2025-03-20 21:32] VITALS: PULSE 105
[2025-03-20 21:43] LABS: Glucose Point of Care 181 mg/dl (65-105)
[2025-03-21 05:01] LABS: Basophils Percent Auto 0.2 % (0.2-1.2); Eosinophils Percent Auto 0.1 % (0-4.4); Hematocrit 30.6 % (37.0-47.0); Hemoglobin 9.4 g/dL (12.0-15.0); Immature Granulocyte Absolute 0.13 K/mm3 (0.00-0.031); Immature Granulocyte Percent A 0.7 % (0-0.5); Lymphocytes Absolute Auto 0.39 K/mm3 (0.9-3.2); Lymphocytes Percent Auto 2.1 % (18.3-44.2); Mean Corpuscular HGB Conc 30.7 g/dl (32-36); Mean Corpuscular Hemoglobin 27.7 pg (26-34); Mean Corpuscular Volume 90.3 fl (80-100); Monocytes Absolute Auto 0.9 K/mm3 (0.1-0.6); Monocytes Percent Auto 4.9 % (2.6-8.5); Neutrophils Absolute Auto 16.9 K/mm3 (1.3-6.7); Platelet Count Result 339 k/mm3 (150-375); Red Blood Count 3.39 M/mm3 (4.2-5.4); Red Cell Distribution Width 24.2 % (11.5-14.5); White Blood Count 18.3 K/mm3 (4.5-10.0)
[2025-03-21 05:22] LABS: Alanine Aminotransferase 9 U/L (6-35); Albumin Level 2.2 g/dL (3.5-5.1); Alkaline Phosphatase 109 U/L (38-126); Anion Gap 5 mmol/L (4-12); Aspartate Amino Transferase 16 U/L (14-36); Bilirubin,Total 0.4 mg/dL (0.2-1.3); Blood Urea Nitrogen 7 mg/dL (7-17); Calcium 7.8 mg/dL (8.4-10.2); Carbon Dioxide 32 mmol/L (22-30); Chloride 104 mmol/L (98-107); Estimated CRCL calculation 111 ml/min; Estimated Glomerular Filt Rate > 60; Glucose 127 mg/dL (65-110); Magnesium 1.7 mg/dL (1.6-2.3); Potassium 2.9 mmol/L (3.4-5.0); Sodium 141 mmol/L (137-145); Total Protein 5.8 g/dL (6.3-8.2)
[2025-03-21 05:33] LABS: Hypochromasia 2+; Platelet Estimate Adequate (Adequate)
[2025-03-21 05:34] LABS: Anisocytosis 2+; Schistocytes None Seen
[2025-03-21] MEDS: PIPERACILLN/TAZ 3.375GM/NS50ML 3.375 GM/50 ML BAG IVPB ×3 (05:50→17:43)
[2025-03-21 07:46] VITALS: BP 136/80; PULSE 98; RESP 16; TEMP 36.2; O2SAT 98
[2025-03-21 08:16] LABS: Glucose Point of Care 118 mg/dl (65-105)
[2025-03-21 09:13] VITALS: PULSE 98
[2025-03-21] MEDS: SPIRONOLACTONE 25 MG TABLET 50 MG PO ×2 (09:13→17:40)
[2025-03-21] MEDS: SIMETHICONE 80 MG TAB.CHEW PO ×2 (09:13→14:17)
[2025-03-21] MEDS: MAGNESIUM OXIDE 400 MG TABLET PO (09:13)
[2025-03-21] MEDS: METOPROLOL SUCCINATE EXT REL 12.5 MG TABCR 37.5 MG PO ×2 (09:13→20:55)
[2025-03-21] MEDS: TAMSULOSIN HCL 0.4 MG CAPSULE PO (09:13)
[2025-03-21] MEDS: PANTOPRAZOLE 40 MG TABLET PO ×2 (09:13→20:56)
[2025-03-21] MEDS: ALPRAZolam (*CRX) 0.25 MG TABLET PO ×2 (09:14→16:36)
[2025-03-21] MEDS: POTASSIUM CHLORIDE 20 MEQ PACKET (FOR LIQUID) 40 MEQ PO (09:14)
[2025-03-21] MEDS: MICONAZOLE NITRATE 2% CREAM 30 GM TUBE 1 APPLIC TOPICAL ×2 (09:15→17:48)
[2025-03-21] MEDS: CENTRAL LINE FLUSH 10 ML IV PUSH ×5 (09:29→20:56)
[2025-03-21] MEDS: FUROSEMIDE INJ 40 MG/4 ML VIAL 20 MG IV PUSH (09:32)
--- NOTE | 2025-03-21 09:41 | PM.PNGS ---
Progress Note: A&P Assessment and Plan (1) Intra-abdominal abscess: Code(s): K65.1 - Peritoneal abscess Status: Acute Assessment and Plan: New onset suprapubic pain started last night. Abdominal exam benign. Percutaneous drain in place and working. A better yesterday on soft diet. White blood cell count slightly higher today. Recheck labs and exam again tomorrow. If white blood cell count continues to rise, probably need another CT scan. Subjective Subjective Date/Time Seen: 03/21/25 09:41 Patient reports: still having pain (Developed suprapubic pain last night. Just now took some pain medicine for this.), tolerating a regular diet (Eating better on low-fiber diet), bowel movement and afebrile Review of Systems Review of Systems: All systems reviewed & are unremarkable except as noted in HPI and below (HPI) Exam Const: General: comfortable, alert and awake GI: Inspection: no abdominal wall ecchymosis, non-distended and other (Pigtail catheter in place, draining purulent fluid as before) GI Palp: Yes Soft to palpation, No Tenderness to palpation present (GI), No Guarding due to palpation present (GI), No Hernia present, No Palpable mass present and No Rebound tenderness present Objective Data Vital Signs Vital Signs: Vital Signs - 24 hr 03/20/25 13:44 03/20/25 20:20 03/20/25 21:32 Temperature 36.4 C 36.7 C Pulse Rate 103 H 104 H 105 H Respiratory Rate 18 16 Blood Pressure 135/79 132/82 Pulse Oximetry 99 97 03/21/25 07:46 03/21/25 09:13 Temperature 36.2 C L Pulse Rate 98 98 Respiratory Rate 16 Blood Pressure 136/80 Pulse Oximetry 98 Intake/Output Intake/Output: Intake & Output 03/18/25 03/19/25 03/20/25 03/21/25 23:59 23:59 23:59 23:59 Intake Total 1390 1652 1080 100 Output Total 554 65 5152 Balance 1245 1597 -1975 100 Meds/Results Medications: Active Medications Generic Name Dose Route Start Last Admin Trade Name Freq PRN Reason Stop Dose Admin Acetaminophen 650 mg 03/13/25 02:01 03/20/25 13:55 Acetaminophen 325 Mg Tablet PO 650 mg Q6H PRN Administration fever or pain Albuterol 2.5 mg 03/10/25 23:09 Albuterol Sulfate Neb 2.5 Mg/3 Ml Inh INHALATION Q6HRT PRN shortness of breath or wheezing Alprazolam 0.25 mg 03/10/25 23:09 03/21/25 09:14 Alprazolam (*Crx) 0.25 Mg Tablet PO 0.25 mg TID PRN Administration anxiety Dextrose 12.5 gm 03/10/25 23:10 Dextrose 50% 25 Gm/50 Ml Syringe IV PUSH PRN PRN Hypoglycemia Protocol Fluticasone Propionate 1 spray 03/11/25 00:29 Fluticasone Propionate 0.05% Na Spr 16 Gm Btl (*Bkc) NASAL Q12H PRN allergy symptoms Furosemide 20 mg 03/21/25 09:15 03/21/25 09:32 Furosemide Inj 40 Mg/4 Ml Vial IV PUSH 20 mg DAILY KANDIS Administration Glucagon 1 mg 03/10/25 23:10 Glucagon For Inj 1 Mg Vial IM PRN PRN Hypoglycemia Protocol Glucose 15 gm 03/10/25 23:10 Glucose Oral Gel 15 Gm Of Glucse In 37.5 Gm Tube PO PRN PRN Hypoglycemia Protocol Dextrose 1,000 mls @ 100 mls/hr 03/10/25 23:10 Dextrose 5% 1,000 Ml IVPB PRN PRN Hypoglycemia Protocol Piperacillin/Tazobactam/Dextrose 3.375 gm in 50 mls @ 100 mls/hr 03/16/25 12:00 03/21/25 06:20 Zosyn 3.375 Gm/Ns 50 Ml IVPB Infused Q6HR KANDIS Infusion Insulin Aspart 4 - 8 units 03/11/25 08:00 03/21/25 09:12 Insulin Aspart (*Bkc) 100 Units/Ml SUB-Q Not Given TIDWM [facility]ENDING S[facility] TO [facility] Protocol Insulin Glargine 10 units 03/20/25 21:00 03/20/25 21:25 Insulin Glargine (*Bkc) 100 Units/Ml SUB-Q 10 units HS KANDIS Administration Magnesium Oxide 400 mg 03/14/25 09:00 03/21/25 09:13 Magnesium Oxide 400 Mg Tablet PO 400 mg DAILY KANDIS Administration Metoprolol Succinate 37.5 mg 03/11/25 09:00 03/21/25 09:13 Metoprolol Succinate Ext Rel 12.5 Mg Tabcr PO 37.5 mg Q12HR KANDIS Administration Miconazole Nitrate 1 applic 03/11/25 09:00 03/21/25 09:15 Miconazole Nitrate 2% Cream 30 Gm Tube TOPICAL 1 applic BID KANDIS Administration Miscellaneous Information 1 each 03/20/25 00:01 Please Renew Miconazole Cream. Per [employer] Procedure, It Will Discontinue If Not Renewed. XX 04/19/25 00:00 CLARIFY KANDIS Miscellaneous Information 1 each 03/20/25 00:01 Please Renew Both Morphine Ivp Doses. Per [employer] Procedure, It Will Discontinue If Not R XX 04/19/25 00:00 CLARIFY KANDIS Morphine Sulfate 2 mg 03/11/25 10:29 03/20/25 03:58 Morphine Sulfate (*Crx) 2 Mg/Ml Inj IV PUSH 2 mg Q2H PRN Administration Pain Rated 4-6 Morphine Sulfate 4 mg 03/11/25 10:28 03/16/25 20:49 Morphine Sulfate (*Crx) 4 Mg/Ml Inj IV PUSH 4 mg Q2H PRN Administration Pain Rated 7-10 Pantoprazole Sodium 40 mg 03/11/25 09:00 03/21/25 09:13 Pantoprazole 40 Mg Tablet PO 40 mg Q12HR KANDIS Administration Phenazopyridine HCl 100 mg 03/18/25 09:59 03/18/25 13:06 Phenazopyridine Hcl 100 Mg Tablet PO 100 mg ONCE PRN Administration catheter pain Potassium Chloride 40 meq 03/21/25 09:00 03/21/25 09:14 Potassium Chloride 20 Meq Packet (For Liquid) PO 40 meq DAILY KANDIS Administration Simethicone 80 mg 03/12/25 02:31 03/21/25 09:13 Simethicone 80 Mg Tab.Chew PO 80 mg QID PRN Administration Gas Discomfort Sodium Chloride 10 ml 03/12/25 14:00 03/21/25 09:37 Central Line Flush IV PUSH 10 ml Q8HR KANDIS Administration Sodium Chloride 10 ml 03/12/25 09:29 Central Line Flush IV PUSH PRN PRN with TPN bag changes Sodium Chloride 20 ml 03/12/25 09:29 03/16/25 04:01 Central Line Flush IV PUSH 20 ml PRN PRN Administration after blood draws Spironolactone 50 mg 03/11/25 09:00 03/21/25 09:13 Spironolactone 25 Mg Tablet PO 50 mg BID KANDIS Administration Tamsulosin HCl 0.4 mg 03/11/25 09:00 03/21/25 09:13 Tamsulosin Hcl 0.4 Mg Capsule PO 0.4 mg QAM KANDIS Administration Radiology Results: ITS Impressions Chest X-Ray 03/12/25 09:24 Impression: 1: Extensive stable bilateral airspace disease which may represent edema or pneumonia. 2: Bilateral pleural effusions without change. Abdomen/Pelvis CT 03/15/25 06:20 Impression: Large pelvic abscess along the right side of the distal rectum measuring approximately 15 x 6.8 x 8.5 cm. Interval placement of drainage catheter via right transgluteal approach with pigtail probably just within the collection. Correlate with tube output. 2.0 x 1.3 cm right renal pelvis stone without marnie hydronephrosis. Additional small nonobstructing stones, as above. Cholelithiasis and gallbladder sludge. Moderate to large bilateral pleural effusions with extensive bilateral lower lobe atelectasis. Catheter Placement CT 03/17/25 17:08 IMPRESSION: 1. Successful CT-guided transgluteal percutaneous abscess drainage catheter replacement. 2. 50 mL fluid was sent for aerobic and anaerobic cultures. 3. The catheter will be managed by Dr. Goins. Labs Labs: Laboratory Results - last 24 hr 03/20/25 03/20/25 03/20/25 12:07 17:13 20:21 WBC RBC Hgb Hct MCV MCH MCHC RDW Plt Count MPV Immature Gran % (Auto) Neut % (Auto) Lymph % (Auto) [place] % (Auto) Eos % (Auto) Baso % (Auto) Lymph # (Auto) [place] # (Auto) Eos # (Auto) Baso # (Auto) Abs Immat Gran (auto) Absolute Neuts (auto) Absolute Nucleated RBC Band Neutrophils % Nucleated RBC % Platelet Estimate Hypochromasia Anisocytosis Schistocytes Sodium Potassium Chloride Carbon Dioxide Anion Gap BUN Creatinine Estim Creat Clear Calc Estimated GFR Glucose POC Capillary Glucose 189 H 173 H 181 H Calcium Magnesium Total Bilirubin AST ALT Alkaline Phosphatase Total Protein Albumin 03/21/25 03/21/25 04:56 07:49 WBC 18.3 H RBC 3.39 L Hgb 9.4 L Hct 30.6 L MCV 90.3 MCH 27.7 MCHC 30.7 L RDW 24.2 H Plt Count 339 MPV 9.0 Immature Gran % (Auto) 0.7 H Neut % (Auto) 92.0 H Lymph % (Auto) 2.1 L [place] % (Auto) 4.9 Eos % (Auto) 0.1 Baso % (Auto) 0.2 Lymph # (Auto) 0.39 L [place] # (Auto) 0.9 H Eos # (Auto) 0.0 Baso # (Auto) 0.0 Abs Immat Gran (auto) 0.13 H Absolute Neuts (auto) 16.9 H Absolute Nucleated RBC 0.000 Band Neutrophils % Not Reportable Nucleated RBC % 0.0 Platelet Estimate Adequate Hypochromasia 2+ Anisocytosis 2+ Schistocytes None seen Sodium 141 Potassium 2.9 L Chloride 104 Carbon Dioxide 32 H Anion Gap 5 BUN 7 Creatinine 0.42 L Estim Creat Clear Calc 111 Estimated GFR > 60 Glucose 127 H POC Capillary Glucose 118 H Calcium 7.8 L Magnesium 1.7 Total Bilirubin 0.4 AST 16 ALT 9 Alkaline Phosphatase 109 Total Protein 5.8 L Albumin 2.2 L
--- NOTE | 2025-03-21 09:55 | P.PNIM_ITS ---
Progress Note: A&P Assessment and Plan (1) Intra-abdominal abscess: Code(s): K65.1 - Peritoneal abscess Status: Acute Assessment and Plan: -Prior intraabdominal abscess s/p drain placement with complications related to diverticulitis was known -Repeat CT due to Left flank pain showed worsening of abscess and concern for bowel perforation due to extraluminal gas on CT -ER started Rocephin and Flagyl -General surgery consulted 03/12 - schedule for drain placement today with radiology continue ceftriaxone 1gm q24h, flagyl 500 mg q8h - drain is placed 03/12 pain is better -03/14 wbc increased-20.3 today on ceftriaxone -will continue for now 03/15 wbc a bit better today CT repeated Large pelvic abscess along the right side of the distal rectum measuring approximately 15 x 6.8 x 8.5 cm. Interval placement of drainage catheter via right transgluteal approach with pigtail probably just within the collection. Correlate with tube output. 2.0 x 1.3 cm right renal pelvis stone without marnie hydronephrosis. Additional small nonobstructing stones, as above. Cholelithiasis and gallbladder sludge. Moderate to large bilateral pleural effusions with extensive bilateral lower lobe atelectasis - issues with drain as it was not draining as it should of - surgery is disusing with radiology replacing it - IS ordered, needs to get out of bed TID with meals continue working with PT/OT 03/16 ct with drain replacement today Abscess preliminary cultures showing growth of Bacteroides fragilis - discussed with ID pharmacy- switched antibiotics to Zosyn 03/17: IR drain placement today via surg. Replace perc drain vs place second drain -Continue Zosyn for abscess final cultures yielding growth of Bacteroides fragilis -Encouraged IS use and participation in PT/OT -WBC today: 28.7, up from 17.3 yesterday, continue to trend 03/18: Pt groggy today, but thinks she is feeling better since yesterday -Continue Zosyn for abscess final cultures yielding growth of Bacteroides fragilis -Encouraged IS use and participation in PT/OT -WBC today: Now trending down s/p IR drain placement, 16.3 today, will continue to trend with AM labs 03/19: Pt wide awake and working with therapy sitting up in chair -Continue Zosyn for abscess final cultures yielding growth of Bacteroides fragil is -Prelim Aerobic culture of abd fluid yielding Escherichia Coli (continue Zosyn) & Enterococcus Casselifavus (see below) -->Since pt has been stable and WBC downtrending, will await final culture to start with linezolid or daptomycin to treat Enterococcus Casselifavus -Encouraged IS use and participation in PT/OT -WBC today: Now trending down s/p IR drain placement, 15.1 today, will continue to trend with AM labs 03/20: Pt continuing to look better, not c/o of much pain. -Continue Zosyn for abscess final cultures yielding growth of Bacteroides fragilis -Prelim Aerobic culture of abd fluid yielding Escherichia Coli (continue Zosyn), Enterococcus Casselifavus (see below), & and Citrobacter Koseri (continue Zosyn) -->Since pt has been stable and WBC downtrending, will await final culture to start with linezolid or daptomycin to treat Enterococcus Casselifavus -Encouraged IS use and participation in PT/OT -WBC today: Now trending down s/p IR drain placement, 14.5 today, will continue to trend with AM labs Per surg rounds today: White blood cell count slowly improving. Drain in place and working adequately. Continue IV antibiotics and percutaneous drain 03/21: Pt denies abd pain but has new consistent diarrhea today, hyperactive bowel sounds. Stool culture and probiotic ordered today. Slight increase in WBC overnight 14.5-->18.3, surg aware. Will continue to trend AM labs. -Awaiting final reads of wound culture. (2) Type 2 diabetes mellitus with hyperglycemia: Code(s): E11.65 - Type 2 diabetes mellitus with hyperglycemia Status: Acute Assessment and Plan: -Resume Lantus on 03/11/25 -ACHS fingerstick glucose with SSI high dose -A1c 9.6 on 01/26/25, probably improved since then since in the hospital/acute rehab the whole time -decreased lantus to 8 units tonight 03/15- since diminished appetite- to avoid hypoglycemia -Pt appetite back to normal, fasting BS have been increasing - now in 150's. Will revert back to nml home dose of lantus, 10units -Pt on low fiber diet and tolerating well. (3) Hypokalemia: Code(s): E87.6 - Hypokalemia Status: Acute Assessment and Plan: -replace and monitor 3.4 today monitor for now 3.1 today- will replace and monitor 03/16- 3.4- continue replacement 03/17: 3.3, continue to monitor with daily labs 03/18: 3.1, will replace with 40 mEq IV today and continue to monitor -->Pt taking spironolactone 50mg BID, will continue with daily labs 03/19: 3.1, will replace with 80 mEq IV today and continue to monitor. May add on oral tomorrow if still not adequately supplemented. -Mag has been WDL 03/20: 3.6, will start K suppl today (packet) since plan to start one time dose of Lasix for BUE increased swelling -Per pt, she used to be on Lasix PRN for swelling as well as a potassium supplement. -Will continue to trend CMP due to Lasix one time dose, K suppl, and spironolactone use 03/21: 2.9 after Lasix admin yesterday. Spoke to Dr. Barnard and Dr. Hopkins about case and came up with the following plan: -Remain on spironolactone, daily K supplement, and add Furosemide 20mg IV daily (pt has had issues with digesting K suppl tabs in the past so she was put on powder, will continue to observe how she tolerates this route. -Will continue AM labs and swelling (4) Paroxysmal atrial fibrillation with RVR: Code(s): I48.0 - Paroxysmal atrial fibrillation Status: Acute Assessment and Plan: -Anticoagulation not recommended at this time due to likely need for surgical intervention (IR on 03/17, may need to go back during this visit?) -Monitor Vital Signs Q4H and PRN -Has been in NST (5) UTI (urinary tract infection): Qualifiers: Urinary tract infection type: acute cystitis Hematuria presence: without hematuria Qualified Code(s): N30.00 - Acute cystitis without hematuria Code(s): N39.0 - Urinary tract infection, site not specified Status: Ruled-out Assessment and Plan: -Chronic indwelling Burgos catheter -UA appears potentially infected -Urine culture ordered, E coli -Blood cultures obtained, WDL -cultures are back -continue Zosyn Per nursing, pt experiencing discomfort with burgos catheter. I advised the use of lubrication about the insertion tube area as well as a PRN dose for Pyridium. (6) Critical illness myopathy: Code(s): G72.81 - Critical illness myopathy Status: Acute Assessment and Plan: -Patient generally weak s/p prolonged, complicated hospitalization -Not making much progress at acute rehab - PT/OT ordered and pt has been working with them (7) Hx of cardiac arrest: Code(s): Z86.74 - Personal history of sudden cardiac arrest Status: Acute Assessment and Plan: -Prior hospitalization complicated by cardiac arrest during procedure to place drain into intraabdominal abscess -Led to prolonged stay and significant weakness (8) Sacral decubitus ulcer: Code(s): L89.159 - Pressure ulcer of sacral region, unspecified stage Status: Acute Assessment and Plan: -Wound care consulted for apparent sacral pressure ulcers -Continue antifungal barrier cream -Turn schedule ordered today, per therapy, pt not turning well Plan PT/OT ordered prior, continue IS, continue IV abx, daily labs, and I&O perc drain. Surg to follow. Subjective Date/time seen: 03/21/25 0930 Interval history: Bharti Neal is a 74 year old female patient admitted to the hospital for findings of increased presacral intraabdominal abscess with concern for bowel perforation. She has a complex past medical history of diverticulitis, DM, HTN, cardiac arrest, septic shock, respiratory failure, abdominal abscess, anemia, hypernatremia, A-fib, hypokalemia, bilateral nephrolithiasis, hematuria, and CHF with recent prolonged admission to this facility. Patient was at [facility] and complained of left flank pain. She reported chills but no fever. No nausea/vomiting or other abdominal pain. Repeat CT scan was obtained which showed significant worsening of known intraabdominal abscess, now with air interspersed concerning for rupture of bowel. Patient admitted on IV antibiotics, NPO and surgical eval. 03/12- pt is seen and examined. Plan is to have drain placed today per radiology. 03/13 doing well. pain is better. drain in place. Resting with eyes closed. 03/14 wbc increased today drain in place, not much output. No appetite, but trying to drink supplements. no new or worsening abd pain, no chills 03/15 seen and examined. still weak, had repeated CT scan. vitals stable, no chills. Issues with drain as it was not draining as it should of. 03/16 CT today with drain replacement. needs a lot of encouragement with any activity and repositioning. Need to work with PT/OT but had been refusing. Discussed the need to do IS and work with PT/OT 03/17: IR to replace perc drain / second drain placement today per their schedule. Visited with pt today, states that she is tired of this process but does see why it is necessary. She states that she is feeling OK and only reports pain in her suprapubic abd when touched. I encouraged her today to continue to use her IS as well as participate with therapy and the importance of each, pt agreeable. 03/18: Pt resting in bed. Pt reports that she is still feeling mildly sluggish from her procedure yesterday but can tell that the drain is now working. Berrios/purulent drainage from perc drain. Only complaint today is some discomfort of her burgos, asked nursing to apply lube to the insertion tube and that I would also order Pyridium PRN for this. Encouraged to keep using her IS today as well as therapy, pt reports that she just did not want to participate in PT/OT one da y due to being tired but she has been compliant since. Pt tolerating diet and drinking fluids. Per uro, continue IV abx, will continue to round. 03/19: Pt sitting up in chair with therapy when I entered the room, pt looking better today. Pt only reporting buttock pain, pt requesting Tylenol and I am also ordered a turn schedule to help with pressure on the buttocks. Per surgery team, to stay on IV abx and continue to trend labs (WBC) and drain output. BC prelim cultures back today, see below on plan. 03/20: Pt continues to report that she is feeling better. Daughter at the bedside today. Pt appears more edematous in her BUE today, states that she used to take lasix PRN today this as well as a potassium supplement. Pt denies SOB and CP. See plan below. 03/21: Pt c/o consistent diarrhea today, will obtain stool culture and order probiotic to start today due to pt being on long-term abx. Updated her on the probable plan of IV abx when she goes home, but will default to surgery for that. Pt with already established PICC in [facility]. Pt states that she thinks that her limb edema is getting better, will continue to monitor. Review of Systems Review of Systems: All systems reviewed & are unremarkable except as noted in HPI and below Exam Const: General: comfortable and no acute distress Other: Chronically ill-appearing, obese HENMT: Face/Nose/Sinus: Normal nares present Mouth: Yes moist mucous membranes Eyes: General: appearance normal, both eyes and all related structures Sclera: sclerae normal Neck: Neck: supple and no JVD Resp: Effort & Inspection: normal respiratory effort Auscultation: clear to auscultation bilaterally Cardio: Rate: regular rate Rhythm: regular rhythm GI: Inspection: non-distended Auscultation: abnormal bowel sounds (hyperactive) Other: R perc drain draining brown fluid, scant amount Urinary Catheter: Urinary Catheter: patent and draining and urine clear Skin: General skin exam: normal color Other: Sacral/L buttock pressure maceration noted, not open, antifungal cream applied Neuro: Speech: normal speech Motor exam (neuro): Normal motor muscle tone present throughout Sensory Exam: normal sensation Extrem: General: normal to inspection, edema (BUE, 2+ today) bilateral and pedal edema (2+ pitting) bilaterally Psych: Mental Status: mental status grossly normal Affect: normal affect Objective Data Vital Signs Vital Signs: Vital Signs - 24 hr 03/20/25 13:44 03/20/25 20:20 03/20/25 21:32 Temperature 97.6 F 98.1 F Pulse Rate 103 H 104 H 105 H Respiratory Rate 18 16 Blood Pressure 135/79 132/82 Pulse Oximetry 99 97 03/21/25 07:46 03/21/25 09:13 Temperature 97.2 F L Pulse Rate 98 98 Respiratory Rate 16 Blood Pressure 136/80 Pulse Oximetry 98 Intake/Output Intake/Output: Intake & Output 03/18/25 03/19/25 03/20/25 03/21/25 23:59 23:59 23:59 23:59 Intake Total 1390 1652 1080 100 Output Total 776 99 4692 Balance 1245 1597 -9154 100 Meds/Results Medications: Active Medications Generic Name Dose Route Start Last Admin Trade Name Freq PRN Reason Stop Dose Admin Acetaminophen 650 mg 03/13/25 02:01 03/20/25 13:55 Acetaminophen 325 Mg Tablet PO 650 mg Q6H PRN Administration fever or pain Albuterol 2.5 mg 03/10/25 23:09 Albuterol Sulfate Neb 2.5 Mg/3 Ml Inh INHALATION Q6HRT PRN shortness of breath or wheezing Alprazolam 0.25 mg 03/10/25 23:09 03/21/25 09:14 Alprazolam (*Crx) 0.25 Mg Tablet PO 0.25 mg TID PRN Administration anxiety Dextrose 12.5 gm 03/10/25 23:10 Dextrose 50% 25 Gm/50 Ml Syringe IV PUSH PRN PRN Hypoglycemia Protocol Fluticasone Propionate 1 spray 03/11/25 00:29 Fluticasone Propionate 0.05% Na Spr 16 Gm Btl (*Bkc) NASAL Q12H PRN allergy symptoms Furosemide 20 mg 03/21/25 09:15 03/21/25 09:32 Furosemide Inj 40 Mg/4 Ml Vial IV PUSH 20 mg DAILY KANDIS Administration Glucagon 1 mg 03/10/25 23:10 Glucagon For Inj 1 Mg Vial IM PRN PRN Hypoglycemia Protocol Glucose 15 gm 03/10/25 23:10 Glucose Oral Gel 15 Gm Of Glucse In 37.5 Gm Tube PO PRN PRN Hypoglycemia Protocol Dextrose 1,000 mls @ 100 mls/hr 03/10/25 23:10 Dextrose 5% 1,000 Ml IVPB PRN PRN Hypoglycemia Protocol Piperacillin/Tazobactam/Dextrose 3.375 gm in 50 mls @ 100 mls/hr 03/16/25 12:00 03/21/25 06:20 Zosyn 3.375 Gm/Ns 50 Ml IVPB Infused Q6HR KANDIS Infusion Insulin Aspart 4 - 8 units 03/11/25 08:00 03/21/25 09:12 Insulin Aspart (*Bkc) 100 Units/Ml SUB-Q Not Given TIDWM [facility] Protocol Insulin Glargine 10 units 03/20/25 21:00 03/20/25 21:25 Insulin Glargine (*Bkc) 100 Units/Ml SUB-Q 10 units HS KANDIS Administration Magnesium Oxide 400 mg 03/14/25 09:00 03/21/25 09:13 Magnesium Oxide 400 Mg Tablet PO 400 mg DAILY KANDIS Administration Metoprolol Succinate 37.5 mg 03/11/25 09:00 03/21/25 09:13 Metoprolol Succinate Ext Rel 12.5 Mg Tabcr PO 37.5 mg Q12HR KANDIS Administration Miconazole Nitrate 1 applic 03/11/25 09:00 03/21/25 09:15 Miconazole Nitrate 2% Cream 30 Gm Tube TOPICAL 1 applic BID KANDIS Administration Miscellaneous Information 1 each 03/20/25 00:01 Please Renew Miconazole Cream. Per [employer] Procedure, It Will Discontinue If Not Renewed. XX 04/19/25 00:00 CL[facility]IFY [facility] Miscellaneous Information 1 each 03/20/25 00:01 Please Renew Both Morphine Ivp Doses. Per [employer] Procedure, It Will Discontinue If Not R XX 04/19/25 00:00 [facility] Morphine Sulfate 2 mg 03/11/25 10:29 03/20/25 03:58 Morphine Sulfate (*Crx) 2 Mg/Ml Inj IV PUSH 2 mg Q2H PRN Administration Pain Rated 4-6 Morphine Sulfate 4 mg 03/11/25 10:28 03/16/25 20:49 Morphine Sulfate (*Crx) 4 Mg/Ml Inj IV PUSH 4 mg Q2H PRN Administration Pain Rated 7-10 Pantoprazole Sodium 40 mg 03/11/25 09:00 03/21/25 09:13 Pantoprazole 40 Mg Tablet PO 40 mg Q12HR KANDIS Administration Phenazopyridine HCl 100 mg 03/18/25 09:59 03/18/25 13:06 Phenazopyridine Hcl 100 Mg Tablet PO 100 mg ONCE PRN Administration catheter pain Potassium Chloride 40 meq 03/21/25 09:00 03/21/25 09:14 Potassium Chloride 20 Meq Packet (For Liquid) PO 40 meq DAILY KANDIS Administration Saccharomyces Boulardii 250 mg 03/21/25 09:55 Saccharomyces Boulardii 250 Mg Capsule PO BID KANDIS Simethicone 80 mg 03/12/25 02:31 03/21/25 09:13 Simethicone 80 Mg Tab.Chew PO 80 mg QID PRN Administration Gas Discomfort Sodium Chloride 10 ml 03/12/25 14:00 03/21/25 09:37 Central Line Flush IV PUSH 10 ml Q8HR KANDIS Administration Sodium Chloride 10 ml 03/12/25 09:29 Central Line Flush IV PUSH PRN PRN with TPN bag changes Sodium Chloride 20 ml 03/12/25 09:29 03/16/25 04:01 Central Line Flush IV PUSH 20 ml PRN PRN Administration after blood draws Spironolactone 50 mg 03/11/25 09:00 03/21/25 09:13 Spironolactone 25 Mg Tablet PO 50 mg BID KANDIS Administration Tamsulosin HCl 0.4 mg 03/11/25 09:00 03/21/25 09:13 Tamsulosin Hcl 0.4 Mg Capsule PO 0.4 mg QAM KANDIS Administration Radiology Results: ITS Impressions Chest X-Ray 03/12/25 09:24 Impression: 1: Extensive stable bilateral airspace disease which may represent edema or pneumonia. 2: Bilateral pleural effusions without change. Abdomen/Pelvis CT 03/15/25 06:20 Impression: Large pelvic abscess along the right side of the distal rectum measuring appro ximately 15 x 6.8 x 8.5 cm. Interval placement of drainage catheter via right transgluteal approach with pigtail probably just within the collection. Correlate with tube output. 2.0 x 1.3 cm right renal pelvis stone without marnie hydronephrosis. Additional small nonobstructing stones, as above. Cholelithiasis and gallbladder sludge. Moderate to large bilateral pleural effusions with extensive bilateral lower lobe atelectasis. Catheter Placement CT 03/17/25 17:08 IMPRESSION: 1. Successful CT-guided transgluteal percutaneous abscess drainage catheter replacement. 2. 50 mL fluid was sent for aerobic and anaerobic cultures. 3. The catheter will be managed by Dr. Goins. Labs Labs: Laboratory Results - last 24 hr 03/20/25 03/20/25 03/20/25 12:07 17:13 20:21 WBC RBC Hgb Hct MCV MCH MCHC RDW Plt Count MPV Immature Gran % (Auto) Neut % (Auto) Lymph % (Auto) Story % (Auto) Eos % (Auto) Baso % (Auto) Lymph # (Auto) Story # (Auto) Eos # (Auto) Baso # (Auto) Abs Immat Gran (auto) Absolute Neuts (auto) Absolute Nucleated RBC Band Neutrophils % Nucleated RBC % Platelet Estimate Hypochromasia Anisocytosis Schistocytes Sodium Potassium Chloride Carbon Dioxide Anion Gap BUN Creatinine Estim Creat Clear Calc Estimated GFR Glucose POC Capillary Glucose 189 H 173 H 181 H Calcium Magnesium Total Bilirubin AST ALT Alkaline Phosphatase Total Protein Albumin 03/21/25 03/21/25 04:56 07:49 WBC 18.3 H RBC 3.39 L Hgb 9.4 L Hct 30.6 L MCV 90.3 MCH 27.7 MCHC 30.7 L RDW 24.2 H Plt Count 339 MPV 9.0 Immature Gran % (Auto) 0.7 H Neut % (Auto) 92.0 H Lymph % (Auto) 2.1 L Story % (Auto) 4.9 Eos % (Auto) 0.1 Baso % (Auto) 0.2 Lymph # (Auto) 0.39 L Story # (Auto) 0.9 H Eos # (Auto) 0.0 Baso # (Auto) 0.0 Abs Immat Gran (auto) 0.13 H Absolute Neuts (auto) 16.9 H Absolute Nucleated RBC 0.000 Band Neutrophils % Not Reportable Nucleated RBC % 0.0 Platelet Estimate Adequate Hypochromasia 2+ Anisocytosis 2+ Schistocytes None seen Sodium 141 Potassium 2.9 L Chloride 104 Carbon Dioxide 32 H Anion Gap 5 BUN 7 Creatinine 0.42 L Estim Creat Clear Calc 111 Estimated GFR > 60 Glucose 127 H POC Capillary Glucose 118 H Calcium 7.8 L Magnesium 1.7 Total Bilirubin 0.4 AST 16 ALT 9 Alkaline Phosphatase 109 Total Protein 5.8 L Albumin 2.2 L Quality VTE Prophylaxis VTE prophylaxis: mechanical ordered
[2025-03-21] MEDS: ACETAMINOPHEN 325 MG TABLET 650 MG PO (10:06)
[2025-03-21] MEDS: SACCHAROMYCES BOULARDII 250 MG CAPSULE PO ×2 (10:09→17:41)
[2025-03-21 11:24] LABS: Toxigenic C. Diff NEGATIVE (NEGATIVE)
[2025-03-21 12:32] LABS: Glucose Point of Care 118 mg/dl (65-105)
[2025-03-21 15:42] VITALS: BP 129/75; PULSE 86; RESP 18; TEMP 36.4; O2SAT 100
[2025-03-21 16:41] LABS: Glucose Point of Care 188 mg/dl (65-105)
[2025-03-21 20:00] VITALS: PULSE 86; RESP 18; O2SAT 100
[2025-03-21] MEDS: MORPHINE SULFATE (*CRX) 2 MG/ML INJ IV PUSH (20:56)
[2025-03-21 21:24] VITALS: BP 121/88; PULSE 103; RESP 16; TEMP 36.7; O2SAT 100
[2025-03-21 21:51] LABS: Glucose Point of Care 96 mg/dl (65-105)
[2025-03-21] MEDS: INSULIN GLARGINE (*BKC) 100 UNITS/ML 10 UNITS SUB-Q (22:02)
[2025-03-22] MEDS: PIPERACILLN/TAZ 3.375GM/NS50ML 3.375 GM/50 ML BAG IVPB ×3 (00:55→12:53)
[2025-03-22 04:22] VITALS: BP 127/77; PULSE 65; RESP 16; TEMP 37; O2SAT 100
[2025-03-22] MEDS: CENTRAL LINE FLUSH 10 ML IV PUSH ×3 (06:20→21:11)
[2025-03-22 06:56] LABS: Basophils Percent Auto 0.1 % (0.2-1.2); Eosinophils Percent Auto 0.3 % (0-4.4); Hematocrit 31.3 % (37.0-47.0); Hemoglobin 9.4 g/dL (12.0-15.0); Immature Granulocyte Absolute 0.05 K/mm3 (0.00-0.031); Immature Granulocyte Percent A 0.3 % (0-0.5); Lymphocytes Absolute Auto 0.49 K/mm3 (0.9-3.2); Lymphocytes Percent Auto 3.3 % (18.3-44.2); Mean Corpuscular Hemoglobin 27.3 pg (26-34); Mean Platelet Volume 9.2 fl (7.4-10.4); Monocytes Absolute Auto 0.8 K/mm3 (0.1-0.6); Monocytes Percent Auto 5.4 % (2.6-8.5); Neutrophils Absolute Auto 13.5 K/mm3 (1.3-6.7); Neutrophils Percent Auto 90.6 % (45.5-73.1); Platelet Count Result 342 k/mm3 (150-375); Red Blood Count 3.44 M/mm3 (4.2-5.4); Red Cell Distribution Width 24.3 % (11.5-14.5); White Blood Count 14.9 K/mm3 (4.5-10.0)
[2025-03-22 07:06] LABS: Alanine Aminotransferase 7 U/L (6-35); Albumin Level 2.2 g/dL (3.5-5.1); Alkaline Phosphatase 102 U/L (38-126); Anion Gap 3 mmol/L (4-12); Aspartate Amino Transferase 16 U/L (14-36); Bilirubin,Total 0.4 mg/dL (0.2-1.3); Blood Urea Nitrogen 7 mg/dL (7-17); Calcium 7.9 mg/dL (8.4-10.2); Carbon Dioxide 32 mmol/L (22-30); Chloride 104 mmol/L (98-107); Estimated CRCL calculation 109 ml/min; Estimated Glomerular Filt Rate > 60; Glucose 78 mg/dL (65-110); Magnesium 1.8 mg/dL (1.6-2.3); Potassium 3.2 mmol/L (3.4-5.0); Sodium 139 mmol/L (137-145); Total Protein 5.8 g/dL (6.3-8.2)
[2025-03-22 07:18] LABS: Anisocytosis 2+; Hypochromasia 1+; Platelet Estimate Adequate (Adequate)
[2025-03-22 07:20] LABS: Schistocytes None Seen
--- NOTE | 2025-03-22 07:56 | PM.IMPN ---
Progress Note: A&P Assessment and Plan (1) Intra-abdominal abscess: Code(s): K65.1 - Peritoneal abscess Status: Acute Assessment and Plan: -Prior intraabdominal abscess s/p drain placement with complications related to diverticulitis was known -Repeat CT due to Left flank pain showed worsening of abscess and concern for bowel perforation due to extraluminal gas on CT -ER started Rocephin and Flagyl -General surgery consulted 03/12 - schedule for drain placement today with radiology continue ceftriaxone 1gm q24h, flagyl 500 mg q8h - drain is placed 03/12 pain is better -03/14 wbc increased-20.3 today on ceftriaxone -will continue for now 03/15 wbc a bit better today CT repeated Large pelvic abscess along the right side of the distal rectum measuring approximately 15 x 6.8 x 8.5 cm. Interval placement of drainage catheter via right transgluteal approach with pigtail probably just within the collection. Correlate with tube output. 2.0 x 1.3 cm right renal pelvis stone without marnie hydronephrosis. Additional small nonobstructing stones, as above. Cholelithiasis and gallbladder sludge. Moderate to large bilateral pleural effusions with extensive bilateral lower lobe atelectasis - issues with drain as it was not draining as it should of - surgery is disusing with radiology replacing it - IS ordered, needs to get out of bed TID with meals continue working with PT/OT 03/16 ct with drain replacement today Abscess preliminary cultures showing growth of Bacteroides fragilis - discussed with ID pharmacy- switched antibiotics to Zosyn 03/17: IR drain placement today via surg. Replace perc drain vs place second drain -Continue Zosyn for abscess final cultures yielding growth of Bacteroides fragilis -Encouraged IS use and participation in PT/OT -WBC today: 28.7, up from 17.3 yesterday, continue to trend 03/18: Pt groggy today, but thinks she is feeling better since yesterday -Continue Zosyn for abscess final cultures yielding growth of Bacteroides fragilis -Encouraged IS use and participation in PT/OT -WBC today: Now trending down s/p IR drain placement, 16.3 today, will continue to trend with AM labs 03/19: Pt wide awake and working with therapy sitting up in chair -Continue Zosyn for abscess final cultures yielding growth of Bacteroides fragilis -Prelim Aerobic culture of abd fluid yielding Escherichia Coli (continue Zosyn) & Enterococcus Casselifavus (see below) -->Since pt has been stable and WBC downtrending, will await final culture to start with linezolid or daptomycin to treat Enterococcus Casselifavus -Encouraged IS use and participation in PT/OT -WBC today: Now trending down s/p IR drain placement, 15.1 today, will continue to trend with AM labs 03/20: Pt continuing to look better, not c/o of much pain. -Continue Zosyn for abscess final cultures yielding growth of Bacteroides fragilis -Prelim Aerobic culture of abd fluid yielding Escherichia Coli (continue Zosyn), Enterococcus Casselifavus (see below), & and Citrobacter Koseri (continue Zosyn) -->Since pt has been stable and WBC downtrending, will await final culture to start with linezolid or daptomycin to treat Enterococcus Casselifavus -Encouraged IS use and participation in PT/OT -WBC today: Now trending down s/p IR drain placement, 14.5 today, will continue to trend with AM labs Per surg rounds today: White blood cell count slowly improving. Drain in place and working adequately. Continue IV antibiotics and percutaneous drain 03/21: Pt denies abd pain but has new consistent diarrhea today, hyperactive bowel sounds. Stool culture and probiotic ordered today. Slight increase in WBC overnight 14.5-->18.3, surg aware. Will continue to trend AM labs. -Awaiting final reads of wound culture. 03/22: Pt continues to c/o of diarrhea. C diff & Campylobacter Antigen Assayneg, pending Escherichia coli Shiga Toxins &Escherichia coli Shiga Toxins - Pending Salmonella/Shigella Culture -->Loperamide once stool cultures come back neg -WBC overnight 18.3-->14.9. Will continue to trend AM labs. -Per surg today: Suprapubic and urinary pain decreased today. Abdominal exam benign. Percutaneous drain in place and working. Encouraged to maintain adequate diet. White blood cell count decreased from yesterday at 14.9. Recheck labs and exam again tomorrow. Continue Zosyn. (2) Type 2 diabetes mellitus with hyperglycemia: Code(s): E11.65 - Type 2 diabetes mellitus with hyperglycemia Status: Acute Assessment and Plan: -Resume Lantus on 03/11/25 -ACHS fingerstick glucose with SSI high dose -A1c 9.6 on 01/26/25, probably improved since then since in the hospital/acute rehab the whole time -Decreased lantus to 8 units tonight 03/15- since diminished appetite- to avoid hypoglycemia -Pt appetite back to normal, fasting BS have been increasing - now in 150's. Will revert back to nml home dose of lantus, 10units -Pt on low fiber diet and tolerating well. 03/22: 78 fasting BS today, encouraged continual oral intake, will continue to trend (3) Hypokalemia: Code(s): E87.6 - Hypokalemia Status: Acute Assessment and Plan: -replace and monitor 3.4 today monitor for now 3.1 today- will replace and monitor 03/16- 3.4- continue replacement 03/17: 3.3, continue to monitor with daily labs 03/18: 3.1, will replace with 40 mEq IV today and continue to monitor -->Pt taking spironolactone 50mg BID, will continue with daily labs 03/19: 3.1, will replace with 80 mEq IV today and continue to monitor. May add on oral tomorrow if still not adequately supplemented. -Mag has been WDL 03/20: 3.6, will start K suppl today (packet) since plan to start one time dose of Lasix for BUE increased swelling -Per pt, she used to be on Lasix PRN for swelling as well as a potassium supplement. -Will continue to trend CMP due to Lasix one time dose, K suppl, and spironolactone use 03/21: 2.9 after Lasix admin yesterday. Spoke to Dr. Barnard and Dr. Hopkins about case and came up with the following plan: -Remain on spironolactone, daily K supplement, and add Furosemide 20mg IV daily (pt has had issues with digesting K suppl tabs in the past so she was put on powder, will continue to observe how she tolerates this route. -Will continue AM labs and swelling assessment 03/22: 3.2 -Will continue K suppl & lasix to decrease swelling -Will continue AM labs and swelling assessment (4) Paroxysmal atrial fibrillation with RVR: Code(s): I48.0 - Paroxysmal atrial fibrillation Status: Acute Assessment and Plan: -Anticoagulation not recommended at this time due to likely need for surgical intervention (IR on 03/17, may need to go back during this visit?) -Monitor Vital Signs Q4H and PRN -Has been in NST (5) UTI (urinary tract infection): Qualifiers: Hematuria presence: without hematuria Urinary tract infection type: acute cystitis Qualified Code(s): N30.00 - Acute cystitis without hematuria Code(s): N39.0 - Urinary tract infection, site not specified Status: Ruled-out Assessment and Plan: -Chronic indwelling Burgos catheter -UA appears potentially infected -Urine culture ordered, E coli -Blood cultures obtained, WDL -cultures are back -continue Zosyn Per nursing, pt experiencing discomfort with burgos catheter. I advised the use of lubrication about the insertion tube area as well as a PRN dose for Pyridium. (6) Critical illness myopathy: Code(s): G72.81 - Critical illness myopathy Status: Acute Assessment and Plan: -Patient generally weak s/p prolonged, complicated hospitalization -Not making much progress at acute rehab - PT/OT ordered and pt has been working with them (7) Hx of cardiac arrest: Code(s): Z86.74 - Personal history of sudden cardiac arrest Status: Acute Assessment and Plan: -Prior hospitalization complicated by cardiac arrest during procedure to place drain into intraabdominal abscess -Led to prolonged stay and significant weakness (8) Sacral decubitus ulcer: Code(s): L89.159 - Pressure ulcer of sacral region, unspecified stage Status: Acute Assessment and Plan: -Wound care consulted for apparent sacral pressure ulcers -Continue antifungal barrier cream -Turn schedule ordered, per therapy, pt not turning well by self Plan PT/OT ordered prior, continue IS, continue IV abx, daily labs, stool cultures, and I&O perc drain. Surg to follow. Subjective Date/time seen: 03/22/25 1125 Interval history: Bharti Neal is a 74 year old female patient admitted to the hospital for findings of increased presacral intraabdominal abscess with concern for bowel perforation. She has a complex past medical history of diverticulitis, DM, HTN, cardiac arrest, septic shock, respiratory failure, abdominal abscess, anemia, hypernatremia, A-fib, hypokalemia, bilateral nephrolithiasis, hematuria, and CHF with recent prolonged admission to this facility. Patient was at [facility] and complained of left flank pain. She reported chills but no fever. No nausea/vomiting or other abdominal pain. Repeat CT scan was obtained which showed significant worsening of known intraabdominal abscess, now with air interspersed concerning for rupture of bowel. Patient admitted on IV antibiotics, NPO and surgical eval. 03/12- pt is seen and examined. Plan is to have drain placed today per radiology. 03/13 doing well. pain is better. drain in place. Resting with eyes closed. 03/14 wbc increased today drain in place, not much output. No appetite, but trying to drink supplements. no new or worsening abd pain, no chills 03/15 seen and examined. still weak, had repeated CT scan. vitals stable, no chills. Issues with drain as it was not draining as it should of. 03/16 CT today with drain replacement. needs a lot of encouragement with any activity and repositioning. Need to work with PT/OT but had been refusing. Discussed the need to do IS and work with PT/OT 03/17: IR to replace perc drain / second drain placement today per their schedule. Visited with pt today, states that she is tired of this process but does see why it is necessary. She states that she is feeling OK and only reports pain in her suprapubic abd when touched. I encouraged her today to continue to use her IS as well as participate with therapy and the importance of each, pt agreeable. 03/18: Pt resting in bed. Pt reports that she is still feeling mildly sluggish from her procedure yesterday but can tell that the drain is now working. Berrios/purulent drainage from perc drain. Only complaint today is some discomfort of her burgos, asked nursing to apply lube to the insertion tube and that I would also order Pyridium PRN for this. Encouraged to keep using her IS today as well as therapy, pt reports that she just did not want to participate in PT/OT one day due to being tired but she has been compliant since. Pt tolerating diet and drinking fluids. Per uro, continue IV abx, will continue to round. 03/19: Pt sitting up in chair with therapy when I entered the room, pt looking better today. Pt only reporting buttock pain, pt requesting Tylenol and I am also ordered a turn schedule to help with pressure on the buttocks. Per surgery team, to stay on IV abx and continue to trend labs (WBC) and drain output. BC prelim cultures back today, see below on plan. 03/20: Pt continues to report that she is feeling better. Daughter at the bedside today. Pt appears more edematous in her BUE today, states that she used to take lasix PRN today this as well as a potassium supplement. Pt denies SOB and CP. See plan below. 03/21: Pt c/o consistent diarrhea today, will obtain stool culture and order probiotic to start today due to pt being on long-term abx. Updated her on the probable plan of IV abx when she goes home, but will default to surgery for that. Pt with already established PICC in [facility]. Pt states that she thinks that her limb edema is getting better, will continue to monitor. 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 Pt continues to report diarrhea but slightly better today. No abd pain noteworthy. Appetite seems to be better today as well. Review of Systems Review of Systems: All systems reviewed & are unremarkable except as noted in HPI and below Exam Const: General: comfortable and no acute distress Other: Chronically ill-appearing, obese HENMT: Face/Nose/Sinus: Normal nares present Mouth: Yes moist mucous membranes Eyes: General: appearance normal, both eyes and all related structures Sclera: sclerae normal Neck: Neck: supple and no JVD Resp: Effort & Inspection: normal respiratory effort Auscultation: clear to auscultation bilaterally and diminished lung sounds (throughout) Cardio: Rate: regular rate Rhythm: regular rhythm GI: Inspection: non-distended Auscultation: normal bowel sounds and abnormal bowel sounds (hyperactive) Other: R perc drain draining brown fluid, scant amount Urinary Catheter: Urinary Catheter: patent and draining and urine clear Skin: General skin exam: normal color Other: Sacral/L buttock pressure maceration noted, not open, antifungal cream/powder applied Neuro: Speech: normal speech Motor exam (neuro): Normal motor muscle tone present throughout Sensory Exam: normal sensation Extrem: General: edema (BUE, 1+ today) bilateral and pedal edema (1+ pitting) bilaterally Psych: Mental Status: mental status grossly normal Affect: normal affect Objective Data Vital Signs Vital Signs: Vital Signs - 24 hr 03/21/25 08:00 03/21/25 09:13 03/21/25 15:42 Temperature 97.6 F Pulse Rate 98 86 Respiratory Rate 18 Blood Pressure 129/75 Pulse Oximetry 100 Oxygen Delivery Room Air Fraction of Inspired Oxygen 03/21/25 20:00 03/21/25 21:24 Temperature 98.0 F Pulse Rate 86 103 H Respiratory Rate 18 16 Blood Pressure 121/88 Pulse Oximetry 100 100 Oxygen Delivery Room Air Fraction of Inspired Oxygen 1 Intake/Output Intake/Output: Intake & Output 03/19/25 03/20/25 03/21/25 03/22/25 23:59 23:59 23:59 23:59 Intake Total 1652 1080 980 50 Output Total 55 3055 1600 Balance 8658 -8817 -867 50 Meds/Results Medications: Active Medications Generic Name Dose Route Start Last Admin Trade Name Freq PRN Reason Stop Dose Admin Acetaminophen 650 mg 03/13/25 02:01 03/21/25 10:06 Acetaminophen 325 Mg Tablet PO 650 mg Q6H PRN Administration fever or pain Albuterol 2.5 mg 03/10/25 23:09 Albuterol Sulfate Neb 2.5 Mg/3 Ml Inh INHALATION Q6HRT PRN shortness of breath or wheezing Alprazolam 0.25 mg 03/10/25 23:09 03/21/25 16:36 Alprazolam (*Crx) 0.25 Mg Tablet PO 0.25 mg TID PRN Administration anxiety Dextrose 12.5 gm 03/10/25 23:10 Dextrose 50% 25 Gm/50 Ml Syringe IV PUSH PRN PRN Hypoglycemia Protocol Fluticasone Propionate 1 spray 03/11/25 00:29 Fluticasone Propionate 0.05% Na Spr 16 Gm Btl (*Bkc) NASAL Q12H PRN allergy symptoms Furosemide 20 mg 03/21/25 09:15 03/21/25 09:32 Furosemide Inj 40 Mg/4 Ml Vial IV PUSH 20 mg DAILY KANDIS Administration Glucagon 1 mg 03/10/25 23:10 Glucagon For Inj 1 Mg Vial IM PRN PRN Hypoglycemia Protocol Glucose 15 gm 03/10/25 23:10 Glucose Oral Gel 15 Gm Of Glucse In 37.5 Gm Tube PO PRN PRN Hypoglycemia Protocol Dextrose 1,000 mls @ 100 mls/hr 03/10/25 23:10 Dextrose 5% 1,000 Ml IVPB PRN PRN Hypoglycemia Protocol Piperacillin/Tazobactam/Dextrose 3.375 gm in 50 mls @ 100 mls/hr 03/16/25 12:00 03/22/25 06:20 Zosyn 3.375 Gm/Ns 50 Ml IVPB 100 mls/hr Q6HR KANDIS Administration Insulin Aspart 4 - 8 units 03/11/25 08:00 03/21/25 17:40 Insulin Aspart (*Bkc) 100 Units/Ml SUB-Q Not Given TIDWM [facility] Protocol Insulin Glargine 10 units 03/20/25 21:00 03/21/25 22:02 Insulin Glargine (*Bkc) 100 Units/Ml SUB-Q 10 units HS KANDIS Administration Magnesium Oxide 400 mg 03/14/25 09:00 03/21/25 09:13 Magnesium Oxide 400 Mg Tablet PO 400 mg DAILY KANDIS Administration Metoprolol Succinate 37.5 mg 03/11/25 09:00 03/21/25 20:55 Metoprolol Succinate Ext Rel 12.5 Mg Tabcr PO 37.5 mg Q12HR KANDIS Administration Miconazole Nitrate 1 applic 03/11/25 09:00 03/21/25 17:48 Miconazole Nitrate 2% Cream 30 Gm Tube TOPICAL 1 applic BID AKNDIS Administration Morphine Sulfate 2 mg 03/11/25 10:29 03/21/25 20:56 Morphine Sulfate (*Crx) 2 Mg/Ml Inj IV PUSH 2 mg Q2H PRN Administration Pain Rated 4-6 Morphine Sulfate 4 mg 03/11/25 10:28 03/16/25 20:49 Morphine Sulfate (*Crx) 4 Mg/Ml Inj IV PUSH 4 mg Q2H PRN Administration Pain Rated 7-10 Pantoprazole Sodium 40 mg 03/11/25 09:00 03/21/25 20:56 Pantoprazole 40 Mg Tablet PO 40 mg Q12HR KANDIS Administration Phenazopyridine HCl 100 mg 03/18/25 09:59 03/18/25 13:06 Phenazopyridine Hcl 100 Mg Tablet PO 100 mg ONCE PRN Administration catheter pain Potassium Chloride 40 meq 03/21/25 09:00 03/21/25 09:14 Potassium Chloride 20 Meq Packet (For Liquid) PO 40 meq DAILY KANDIS Administration Saccharomyces Boulardii 250 mg 03/21/25 09:55 03/21/25 17:41 Saccharomyces Boulardii 250 Mg Capsule PO 250 mg BID KANDIS Administration Simethicone 80 mg 03/12/25 02:31 03/21/25 14:17 Simethicone 80 Mg Tab.Chew PO 80 mg QID PRN Administration Gas Discomfort Sodium Chloride 10 ml 03/12/25 14:00 03/22/25 06:20 Central Line Flush IV PUSH 10 ml Q8HR KANDIS Administration Sodium Chloride 10 ml 03/12/25 09:29 Central Line Flush IV PUSH PRN PRN with TPN bag changes Sodium Chloride 20 ml 03/12/25 09:29 03/16/25 04:01 Central Line Flush IV PUSH 20 ml PRN PRN Administration after blood draws Spironolactone 50 mg 03/11/25 09:00 03/21/25 17:40 Spironolactone 25 Mg Tablet PO 50 mg BID KANDIS Administration Tamsulosin HCl 0.4 mg 03/11/25 09:00 03/21/25 09:13 Tamsulosin Hcl 0.4 Mg Capsule PO 0.4 mg QAM KANDIS Administration Radiology Results: ITS Impressions Chest X-Ray 03/12/25 09:24 Impression: 1: Extensive stable bilateral airspace disease which may represent edema or pneumonia. 2: Bilateral pleural effusions without change. Abdomen/Pelvis CT 03/15/25 06:20 Impression: Large pelvic abscess along the right side of the distal rectum measuring approximately 15 x 6.8 x 8.5 cm. Interval placement of drainage catheter via right transgluteal approach with pigtail probably just within the collection. Correlate with tube output. 2.0 x 1.3 cm right renal pelvis stone without marnie hydronephrosis. Additional small nonobstructing stones, as above. Cholelithiasis and gallbladder sludge. Moderate to large bilateral pleural effusions with extensive bilateral lower lobe atelectasis. Catheter Placement CT 03/17/25 17:08 IMPRESSION: 1. Successful CT-guided transgluteal percutaneous abscess drainage catheter replacement. 2. 50 mL fluid was sent for aerobic and anaerobic cultures. 3. The catheter will be managed by Dr. Goins. Labs Labs: Laboratory Results - last 24 hr 03/21/25 03/21/25 03/21/25 07:49 10:13 12:09 WBC RBC Hgb Hct MCV MCH MCHC RDW Plt Count MPV Immature Gran % (Auto) Neut % (Auto) Lymph % (Auto) Nelson % (Auto) Eos % (Auto) Baso % (Auto) Lymph # (Auto) Nelson # (Auto) Eos # (Auto) Baso # (Auto) Abs Immat Gran (auto) Absolute Neuts (auto) Absolute Nucleated RBC Band Neutrophils % Nucleated RBC % Platelet Estimate Hypochromasia Anisocytosis Schistocytes Sodium Potassium Chloride Carbon Dioxide Anion Gap BUN Creatinine Estim Creat Clear Calc Estimated GFR Glucose POC Capillary Glucose 118 H 118 H Calcium Magnesium Total Bilirubin AST ALT Alkaline Phosphatase Total Protein Albumin C. difficile (PCR) Negative 03/21/25 03/21/25 03/22/25 16:38 21:39 06:43 WBC 14.9 H RBC 3.44 L Hgb 9.4 L Hct 31.3 L MCV 91.0 MCH 27.3 MCHC 30.0 L RDW 24.3 H Plt Count 342 MPV 9.2 Immature Gran % (Auto) 0.3 Neut % (Auto) 90.6 H Lymph % (Auto) 3.3 L Nelson % (Auto) 5.4 Eos % (Auto) 0.3 Baso % (Auto) 0.1 L Lymph # (Auto) 0.49 L Nelson # (Auto) 0.8 H Eos # (Auto) 0.0 Baso # (Auto) 0.0 Abs Immat Gran (auto) 0.05 H Absolute Neuts (auto) 13.5 H Absolute Nucleated RBC 0.000 Band Neutrophils % Not Reportable Nucleated RBC % 0.0 Platelet Estimate Adequate Hypochromasia 1+ Anisocytosis 2+ Schistocytes None seen Sodium Potassium Chloride Carbon Dioxide Anion Gap BUN Creatinine Estim Creat Clear Calc Estimated GFR Glucose POC Capillary Glucose 188 H 96 Calcium Magnesium Total Bilirubin AST ALT Alkaline Phosphatase Total Protein Albumin C. difficile (PCR) 03/22/25 06:44 WBC RBC Hgb Hct MCV MCH MCHC RDW Plt Count MPV Immature Gran % (Auto) Neut % (Auto) Lymph % (Auto) Nelson % (Auto) Eos % (Auto) Baso % (Auto) Lymph # (Auto) Nelson # (Auto) Eos # (Auto) Baso # (Auto) Abs Immat Gran (auto) Absolute Neuts (auto) Absolute Nucleated RBC Band Neutrophils % Nucleated RBC % Platelet Estimate Hypochromasia Anisocytosis Schistocytes Sodium 139 Potassium 3.2 L Chloride 104 Carbon Dioxide 32 H Anion Gap 3 L BUN 7 Creatinine 0.43 L Estim Creat Clear Calc 109 Estimated GFR > 60 Glucose 78 POC Capillary Glucose Calcium 7.9 L Magnesium 1.8 Total Bilirubin 0.4 AST 16 ALT 7 Alkaline Phosphatase 102 Total Protein 5.8 L Albumin 2.2 L C. difficile (PCR) Quality VTE Prophylaxis VTE prophylaxis: mechanical ordered
[2025-03-22 08:02] LABS: Glucose Point of Care 78 mg/dl (65-105)
[2025-03-22 09:00] VITALS: PULSE 70
[2025-03-22] MEDS: SACCHAROMYCES BOULARDII 250 MG CAPSULE PO ×2 (09:00→17:55)
[2025-03-22] MEDS: METOPROLOL SUCCINATE EXT REL 12.5 MG TABCR 37.5 MG PO ×2 (09:00→21:08)
[2025-03-22] MEDS: PANTOPRAZOLE 40 MG TABLET PO ×2 (09:01→21:10)
[2025-03-22] MEDS: ALPRAZolam (*CRX) 0.25 MG TABLET PO ×2 (09:01→21:09)
[2025-03-22] MEDS: SPIRONOLACTONE 25 MG TABLET 50 MG PO ×2 (09:01→17:56)
[2025-03-22] MEDS: MAGNESIUM OXIDE 400 MG TABLET PO (09:01)
[2025-03-22] MEDS: TAMSULOSIN HCL 0.4 MG CAPSULE PO (09:01)
[2025-03-22] MEDS: FUROSEMIDE INJ 40 MG/4 ML VIAL 20 MG IV PUSH (09:02)
[2025-03-22] MEDS: POTASSIUM CHLORIDE 20 MEQ PACKET (FOR LIQUID) 40 MEQ PO (09:02)
[2025-03-22] MEDS: ACETAMINOPHEN 325 MG TABLET 650 MG PO ×2 (09:02→21:09)
[2025-03-22] MEDS: MICONAZOLE NITRATE 2% CREAM 30 GM TUBE 1 APPLIC TOPICAL ×2 (09:03→17:59)
--- NOTE | 2025-03-22 09:58 | P.PNGS_ITS ---
Progress Note: A&P Assessment and Plan (1) Intra-abdominal abscess: Code(s): K65.1 - Peritoneal abscess Status: Acute Assessment and Plan: Suprapubic and urinary pain decreased today. Abdominal exam benign. Pe rcutaneous drain in place and working. Encouraged to maintain adequate diet. White blood cell count decreased from yesterday at 14.9. Recheck labs and exam again tomorrow. Continue Zosyn. Consider repeat CT abd/pelvis to assess abscess. Subjective Subjective Date/Time Seen: 03/22/25 09:58 Interval history: Patient is feeling well today. She reports suprapubic and urinary pain has decreased and is now very minimal. No abdominal pain. Perc drain is in place and draining well. WBC decreased from 18.3 yesterday to 14.9 today. Exam GI: Inspection: normal to inspection, non-distended, obesity and other (Pigtail catheter in place, draining purulent fluid as before) Auscultation: normal bowel sounds Other: Minimal brownish purulent drainage in perc drain bag. Urinary Catheter: Urinary Catheter: patent and draining and urine dark Skin: General skin exam: normal color Other: edema to lower legs and arms Objective Data Vital Signs Vital Signs: Vital Signs - 24 hr 03/21/25 15:42 03/21/25 20:00 03/21/25 21:24 Temperature 97.6 F 98.0 F Pulse Rate 86 86 103 H Respiratory Rate 18 18 16 Blood Pressure 129/75 121/88 Pulse Oximetry 100 100 100 Oxygen Delivery Room Air Fraction of Inspired Oxygen 1 03/22/25 04:22 03/22/25 09:00 Temperature 98.6 F Pulse Rate 65 70 Respiratory Rate 16 Blood Pressure 127/77 Pulse Oximetry 100 Oxygen Delivery Fraction of Inspired Oxygen Intake/Output Intake/Output: Intake & Output 03/19/25 03/20/25 03/21/25 03/22/25 23:59 23:59 23:59 23:59 Intake Total 1652 1080 980 600 Output Total 52 8435 1600 Balance 0903 -6839 -657 811 Meds/Results Medications: Active Medications Generic Name Dose Route Start Last Admin Trade Name Freq PRN Reason Stop Dose Admin Acetaminophen 650 mg 03/13/25 02:01 03/22/25 09:02 Acetaminophen 325 Mg Tablet PO 650 mg Q6H PRN Administration fever or pain Albuterol 2.5 mg 03/10/25 23:09 Albuterol Sulfate Neb 2.5 Mg/3 Ml Inh INHALATION Q6HRT PRN shortness of breath or wheezing Alprazolam 0.25 mg 03/10/25 23:09 03/22/25 09:01 Alprazolam (*Crx) 0.25 Mg Tablet PO 0.25 mg TID PRN Administration anxiety Dextrose 12.5 gm 03/10/25 23:10 Dextrose 50% 25 Gm/50 Ml Syringe IV PUSH PRN PRN Hypoglycemia Protocol Fluticasone Propionate 1 spray 03/11/25 00:29 Fluticasone Propionate 0.05% Na Spr 16 Gm Btl (*Bkc) NASAL Q12H PRN allergy symptoms Furosemide 20 mg 03/21/25 09:15 03/22/25 09:02 Furosemide Inj 40 Mg/4 Ml Vial IV PUSH 20 mg DAILY KANDIS Administration Glucagon 1 mg 03/10/25 23:10 Glucagon For Inj 1 Mg Vial IM PRN PRN Hypoglycemia Protocol Glucose 15 gm 03/10/25 23:10 Glucose Oral Gel 15 Gm Of Glucse In 37.5 Gm Tube PO PRN PRN Hypoglycemia Protocol Dextrose 1,000 mls @ 100 mls/hr 03/10/25 23:10 Dextrose 5% 1,000 Ml IVPB PRN PRN Hypoglycemia Protocol Piperacillin/Tazobactam/Dextrose 3.375 gm in 50 mls @ 100 mls/hr 03/16/25 12:00 03/22/25 06:20 Zosyn 3.375 Gm/Ns 50 Ml IVPB 100 mls/hr Q6HR KANDIS Administration Insulin Aspart 4 - 8 units 03/11/25 08:00 03/22/25 08:56 Insulin Aspart (*Bkc) 100 Units/Ml SUB-Q Not Given TIDWM KANDIS Protocol Insulin Glargine 10 units 03/20/25 21:00 03/21/25 22:02 Insulin Glargine (*Bkc) 100 Units/Ml SUB-Q 10 units HS KANDIS Administration Magnesium Oxide 400 mg 03/14/25 09:00 03/22/25 09:01 Magnesium Oxide 400 Mg Tablet PO 400 mg DAILY KANDIS Administration Metoprolol Succinate 37.5 mg 03/11/25 09:00 03/22/25 09:00 Metoprolol Succinate Ext Rel 12.5 Mg Tabcr PO 37.5 mg Q12HR KANDIS Administration Miconazole Nitrate 1 applic 03/11/25 09:00 03/22/25 09:03 Miconazole Nitrate 2% Cream 30 Gm Tube TOPICAL 1 applic BID KANDIS Administration Morphine Sulfate 2 mg 03/11/25 10:29 03/21/25 20:56 Morphine Sulfate (*Crx) 2 Mg/Ml Inj IV PUSH 2 mg Q2H PRN Administration Pain Rated 4-6 Morphine Sulfate 4 mg 03/11/25 10:28 03/16/25 20:49 Morphine Sulfate (*Crx) 4 Mg/Ml Inj IV PUSH 4 mg Q2H PRN Administration Pain Rated 7-10 Pantoprazole Sodium 40 mg 03/11/25 09:00 03/22/25 09:01 Pantoprazole 40 Mg Tablet PO 40 mg Q12HR KANDIS Administration Phenazopyridine HCl 100 mg 03/18/25 09:59 03/18/25 13:06 Phenazopyridine Hcl 100 Mg Tablet PO 100 mg ONCE PRN Administration catheter pain Potassium Chloride 40 meq 03/21/25 09:00 03/22/25 09:02 Potassium Chloride 20 Meq Packet (For Liquid) PO 40 meq DAILY KANDIS Administration Saccharomyces Boulardii 250 mg 03/21/25 09:55 03/22/25 09:00 Saccharomyces Boulardii 250 Mg Capsule PO 250 mg BID KANDIS Administration Simethicone 80 mg 03/12/25 02:31 03/21/25 14:17 Simethicone 80 Mg Tab.Chew PO 80 mg QID PRN Administration Gas Discomfort Sodium Chloride 10 ml 03/12/25 14:00 03/22/25 06:20 Central Line Flush IV PUSH 10 ml Q8HR KANDIS Administration Sodium Chloride 10 ml 03/12/25 09:29 Central Line Flush IV PUSH PRN PRN with TPN bag changes Sodium Chloride 20 ml 03/12/25 09:29 03/16/25 04:01 Central Line Flush IV PUSH 20 ml PRN PRN Administration after blood draws Spironolactone 50 mg 03/11/25 09:00 03/22/25 09:01 Spironolactone 25 Mg Tablet PO 50 mg BID KANDIS Administration Tamsulosin HCl 0.4 mg 03/11/25 09:00 03/22/25 09:01 Tamsulosin Hcl 0.4 Mg Capsule PO 0.4 mg QAM KANDIS Administration Radiology Results: ITS Impressions Chest X-Ray 03/12/25 09:24 Impression: 1: Extensive stable bilateral airspace disease which may represent edema or pneumonia. 2: Bilateral pleural effusions without change. Abdomen/Pelvis CT 03/15/25 06:20 Impression: Large pelvic abscess along the right side of the distal rectum measuring approximately 15 x 6.8 x 8.5 cm. Interval placement of drainage catheter via right transgluteal approach with pigtail probably just within the collection. Correlate with tube output. 2.0 x 1.3 cm right renal pelvis stone without marnie hydronephrosis. Additional s mall nonobstructing stones, as above. Cholelithiasis and gallbladder sludge. Moderate to large bilateral pleural effusions with extensive bilateral lower lobe atelectasis. Catheter Placement CT 03/17/25 17:08 IMPRESSION: 1. Successful CT-guided transgluteal percutaneous abscess drainage catheter replacement. 2. 50 mL fluid was sent for aerobic and anaerobic cultures. 3. The catheter will be managed by Dr. Goins. Labs Labs: Laboratory Results - last 24 hr 03/21/25 03/21/25 03/21/25 10:13 12:09 16:38 WBC RBC Hgb Hct MCV MCH MCHC RDW Plt Count MPV Immature Gran % (Auto) Neut % (Auto) Lymph % (Auto) [place] % (Auto) Eos % (Auto) Baso % (Auto) Lymph # (Auto) [place] # (Auto) Eos # (Auto) Baso # (Auto) Abs Immat Gran (auto) Absolute Neuts (auto) Absolute Nucleated RBC Band Neutrophils % Nucleated RBC % Platelet Estimate Hypochromasia Anisocytosis Schistocytes Sodium Potassium Chloride Carbon Dioxide Anion Gap BUN Creatinine Estim Creat Clear Calc Estimated GFR Glucose POC Capillary Glucose 118 H 188 H Calcium Magnesium Total Bilirubin AST ALT Alkaline Phosphatase Total Protein Albumin C. difficile (PCR) Negative 03/21/25 03/22/25 03/22/25 21:39 06:43 06:44 WBC 14.9 H RBC 3.44 L Hgb 9.4 L Hct 31.3 L MCV 91.0 MCH 27.3 MCHC 30.0 L RDW 24.3 H Plt Count 342 MPV 9.2 Immature Gran % (Auto) 0.3 Neut % (Auto) 90.6 H Lymph % (Auto) 3.3 L [place] % (Auto) 5.4 Eos % (Auto) 0.3 Baso % (Auto) 0.1 L Lymph # (Auto) 0.49 L [place] # (Auto) 0.8 H Eos # (Auto) 0.0 Baso # (Auto) 0.0 Abs Immat Gran (auto) 0.05 H Absolute Neuts (auto) 13.5 H Absolute Nucleated RBC 0.000 Band Neutrophils % Not Reportable Nucleated RBC % 0.0 Platelet Estimate Adequate Hypochromasia 1+ Anisocytosis 2+ Schistocytes None seen Sodium 139 Potassium 3.2 L Chloride 104 Carbon Dioxide 32 H Anion Gap 3 L BUN 7 Creatinine 0.43 L Estim Creat Clear Calc 109 Estimated GFR > 60 Glucose 78 POC Capillary Glucose 96 Calcium 7.9 L Magnesium 1.8 Total Bilirubin 0.4 AST 16 ALT 7 Alkaline Phosphatase 102 Total Protein 5.8 L Albumin 2.2 L C. difficile (PCR) 03/22/25 08:00 WBC RBC Hgb Hct MCV MCH MCHC RDW Plt Count MPV Immature Gran % (Auto) Neut % (Auto) Lymph % (Auto) [place] % (Auto) Eos % (Auto) Baso % (Auto) Lymph # (Auto) [place] # (Auto) Eos # (Auto) Baso # (Auto) Abs Immat Gran (auto) Absolute Neuts (auto) Absolute Nucleated RBC Band Neutrophils % Nucleated RBC % Platelet Estimate Hypochromasia Anisocytosis Schistocytes Sodium Potassium Chloride Carbon Dioxide Anion Gap BUN Creatinine Estim Creat Clear Calc Estimated GFR Glucose POC Capillary Glucose 78 Calcium Magnesium Total Bilirubin AST ALT Alkaline Phosphatase Total Protein Albumin C. difficile (PCR)
--- NOTE | 2025-03-22 11:25 | PCNFU ---
Nutrition Follow-Up Complete: Severe protein calorie malnutrition related to loss of appetite, altered GI function as evidenced by intakes <50% >7 days; weight loss 15%/1 month; moderate muscle wasting and fat loss Tolerate diet - Progressing Meet nutrition needs - Progressing. Continue current goals Goal: Pt current nutrition is Low fiber diet. Ensure Enlive TID (350 kcal, 20 g protein). Nutrition recommendation: No new recommendations. Continue current nutrition care plan and orders. Agree with orders Last recorded weight is 94.3 kg. Bowel Motility: +3 BMs 03/22/25 Labs Reviewed: Hgb 9.4 Hct 31.3, Alb 2.2, K+ 3.2, Cre 0.43 Meds Noted: Protonix, insulin Skin: Percutaneous drain in place Additional Notes: Intakes 5-50%, not improving much but progressing. Continue current orders. Monitoring diet orders, weights, labs, intakes, plan of care Follow up in 3 days
[2025-03-22 11:51] VITALS: BMI 11.0
[2025-03-22 12:00] LABS: Glucose Point of Care 68 mg/dl (65-105)
[2025-03-22 14:10] VITALS: BP 116/70; PULSE 86; RESP 19; TEMP 36.7; O2SAT 100
[2025-03-22] MEDS: AMOXICILLIN 500 MG CAPSULE PO ×2 (15:23→21:09)
[2025-03-22] MEDS: MEROPENEM 1 GM/NS 100 ML 1 GM/100 ML BAG IVPB ×2 (15:23→21:10)
[2025-03-22 17:48] LABS: Glucose Point of Care 81 mg/dl (65-105)
[2025-03-22 20:00] VITALS: PULSE 105; RESP 20; O2SAT 97
[2025-03-22 21:01] VITALS: BP 136/83; PULSE 97; RESP 20; TEMP 36.4; O2SAT 97
[2025-03-22 21:08] VITALS: PULSE 105
[2025-03-22 22:05] LABS: Glucose Point of Care 92 mg/dl (65-105)
[2025-03-22] MEDS: INSULIN GLARGINE (*BKC) 100 UNITS/ML SUB-Q (22:12)
[2025-03-23] MEDS: CENTRAL LINE FLUSH 20 ML IV PUSH (04:35)
[2025-03-23 04:42] LABS: Basophils Percent Auto 0.1 % (0.2-1.2); Eosinophils Percent Auto 0.1 % (0-4.4); Hematocrit 31.6 % (37.0-47.0); Hemoglobin 9.6 g/dL (12.0-15.0); Immature Granulocyte Absolute 0.07 K/mm3 (0.00-0.031); Immature Granulocyte Percent A 0.6 % (0-0.5); Lymphocytes Absolute Auto 0.52 K/mm3 (0.9-3.2); Lymphocytes Percent Auto 4.7 % (18.3-44.2); Mean Corpuscular HGB Conc 30.4 g/dl (32-36); Mean Corpuscular Hemoglobin 27.4 pg (26-34); Mean Platelet Volume 9.2 fl (7.4-10.4); Monocytes Absolute Auto 0.7 K/mm3 (0.1-0.6); Monocytes Percent Auto 6.8 % (2.6-8.5); Neutrophils Absolute Auto 9.6 K/mm3 (1.3-6.7); Neutrophils Percent Auto 87.7 % (45.5-73.1); Platelet Count Result 345 k/mm3 (150-375); Red Blood Count 3.51 M/mm3 (4.2-5.4); Red Cell Distribution Width 24.1 % (11.5-14.5)
[2025-03-23 05:03] LABS: Alanine Aminotransferase 8 U/L (6-35); Albumin Level 2.2 g/dL (3.5-5.1); Alkaline Phosphatase 102 U/L (38-126); Anion Gap 3 mmol/L (4-12); Aspartate Amino Transferase 18 U/L (14-36); Bilirubin,Total 0.5 mg/dL (0.2-1.3); Blood Urea Nitrogen 9 mg/dL (7-17); Calcium 7.8 mg/dL (8.4-10.2); Carbon Dioxide 34 mmol/L (22-30); Chloride 101 mmol/L (98-107); Estimated CRCL calculation 113 ml/min; Estimated Glomerular Filt Rate > 60; Glucose 78 mg/dL (65-110); Magnesium 1.9 mg/dL (1.6-2.3); Potassium 2.8 mmol/L (3.4-5.0); Sodium 138 mmol/L (137-145); Total Protein 5.8 g/dL (6.3-8.2)
[2025-03-23] MEDS: MEROPENEM 1 GM/NS 100 ML 1 GM/100 ML BAG IVPB ×3 (05:10→21:45)
[2025-03-23] MEDS: AMOXICILLIN 500 MG CAPSULE PO ×3 (05:10→21:43)
[2025-03-23] MEDS: CENTRAL LINE FLUSH 10 ML IV PUSH ×3 (05:11→21:53)
[2025-03-23 05:15] LABS: Anisocytosis 1+; Hypochromasia 1+; Platelet Estimate Adequate (Adequate)
[2025-03-23 05:16] LABS: Schistocytes None Seen
[2025-03-23 06:00] VITALS: BP 139/93; PULSE 75; RESP 20; TEMP 36; O2SAT 100
[2025-03-23] MEDS: POTASSIUM CHLORIDE INJ 40 MEQ in SODIUM CHLORIDE 0.9% IV 500 ML 130 MEQ IVPB (06:39)
[2025-03-23] MEDS: POTASSIUM CHLORIDE 20 MEQ PACKET (FOR LIQUID) 40 MEQ PO (06:40)
[2025-03-23 07:51] LABS: Glucose Point of Care 69 mg/dl (65-105)
--- NOTE | 2025-03-23 08:15 | PM.IMPN ---
Progress Note: A&P Assessment and Plan (1) Intra-abdominal abscess: Code(s): K65.1 - Peritoneal abscess Status: Acute Assessment and Plan: -Prior intraabdominal abscess s/p drain placement with complications related to diverticulitis was known -Repeat CT due to Left flank pain showed worsening of abscess and concern for bowel perforation due to extraluminal gas on CT -ER started Rocephin and Flagyl -General surgery consulted 03/12 - schedule for drain placement today with radiology continue ceftriaxone 1gm q24h, flagyl 500 mg q8h - drain is placed 03/12 pain is better -03/14 wbc increased-20.3 today on ceftriaxone -will continue for now 03/15 wbc a bit better today CT repeated Large pelvic abscess along the right side of the distal rectum measuring approximately 15 x 6.8 x 8.5 cm. Interval placement of drainage catheter via right transgluteal approach with pigtail probably just within the collection. Correlate with tube output. 2.0 x 1.3 cm right renal pelvis stone without marnie hydronephrosis. Additional small nonobstructing stones, as above. Cholelithiasis and gallbladder sludge. Moderate to large bilateral pleural effusions with extensive bilateral lower lobe atelectasis - issues with drain as it was not draining as it should of - surgery is disusing with radiology replacing it - IS ordered, needs to get out of bed TID with meals continue working with PT/OT 03/16 ct with drain replacement today Abscess preliminary cultures showing growth of Bacteroides fragilis - discussed with ID pharmacy- switched antibiotics to Zosyn 03/17: IR drain placement today via surg. Replace perc drain vs place second drain -Continue Zosyn for abscess final cultures yielding growth of Bacteroides fragilis -Encouraged IS use and participation in PT/OT -WBC today: 28.7, up from 17.3 yesterday, continue to trend 03/18: Pt groggy today, but thinks she is feeling better since yesterday -Continue Zosyn for abscess final cultures yielding growth of Bacteroides fragilis -Encouraged IS use and participation in PT/OT -WBC today: Now trending down s/p IR drain placement, 16.3 today, will continue to trend with AM labs 03/19: Pt wide awake and working with therapy sitting up in chair -Continue Zosyn for abscess final cultures yielding growth of Bacteroides fragilis -Prelim Aerobic culture of abd fluid yielding Escherichia Coli (continue Zosyn) & Enterococcus Casselifavus (see below) -->Since pt has been stable and WBC downtrending, will await final culture to start with linezolid or daptomycin to treat Enterococcus Casselifavus -Encouraged IS use and participation in PT/OT -WBC today: Now trending down s/p IR drain placement, 15.1 today, will continue to trend with AM labs 03/20: Pt continuing to look better, not c/o of much pain. -Continue Zosyn for abscess final cultures yielding growth of Bacteroides fragilis -Prelim Aerobic culture of abd fluid yielding Escherichia Coli (continue Zosyn), Enterococcus Casselifavus (see below), & and Citrobacter Koseri (continue Zosyn) -->Since pt has been stable and WBC downtrending, will await final culture to start with linezolid or daptomycin to treat Enterococcus Casselifavus -Encouraged IS use and participation in PT/OT -WBC today: Now trending down s/p IR drain placement, 14.5 today, will continue to trend with AM labs Per surg rounds today: White blood cell count slowly improving. Drain in place and working adequately. Continue IV antibiotics and percutaneous drain 03/21: Pt denies abd pain but has new consistent diarrhea today, hyperactive bowel sounds. Stool culture and probiotic ordered today. Slight increase in WBC overnight 14.5-->18.3, surg aware. Will continue to trend AM labs. -Awaiting final reads of wound culture. 03/22: Pt continues to c/o of diarrhea. C diff & Campylobacter Antigen Assayneg, pending Escherichia coli Shiga Toxins &Escherichia coli Shiga Toxins - Pending Salmonella/Shigella Culture -->Loperamide once stool cultures come back neg -WBC overnight 18.3-->14.9. Will continue to trend AM labs. -Per surg today: Suprapubic and urinary pain decreased today. Abdominal exam benign. Percutaneous drain in place and working. Encouraged to maintain adequate diet. White blood cell count decreased from yesterday at 14.9. Recheck labs and exam again tomorrow. Continue Zosyn. 03/23: Pt continues to c/o of diarrhea but it is slowing down. -Stool cultures negative -->Loperamide ordered today PRN -Per ID pharm, to D/C Zosyn 03/22 and start Myesha IV (all 5 bugs) + Amox oral (Citrobacter Koseri due to no susceptibilities) to cover all bugs. -D/C potential plan for Bactrim PO (ESBL Citrobacter Koseri & e. Coli coverage) and Augmentin (Bacteroides fragilis & enterococcus casselifavus coverage) -Per surg today: Pain is very minimal however repeat CT showed pelvic abscess to be similar to prior exam, possibly minimally decreased. There is possible communication of the abscess with the distal rectum, which could reflect fistula/perforation. Radiology advises to consider administration of contrast via the drainage catheter under fluoroscopy to attempt to confirm or exclude communication with the large bowel lumen. WBC decreased at 11.0. Continue IV meropenem and oral amoxicillin. (2) Type 2 diabetes mellitus with hyperglycemia: Code(s): E11.65 - Type 2 diabetes mellitus with hyperglycemia Status: Acute Assessment and Plan: -Resume Lantus on 03/11/25 -ACHS fingerstick glucose with SSI high dose -A1c 9.6 on 01/26/25, probably improved since then since in the hospital/acute rehab the whole time -Decreased lantus to 8 units tonight 03/15- since diminished appetite- to avoid hypoglycemia -Pt appetite back to normal, fasting BS have been increasing - now in 150's. Will revert back to nml home dose of lantus, 10units -Pt on low fiber diet and tolerating well. 03/22: 78 fasting BS today, encouraged continual oral intake, will continue to trend 03/23: 78 fasting BS again today, softer throughout the night as well, encouraged continual oral intake, will continue to trend, will decrease Lantus to 8 overnight (3) Hypokalemia: Code(s): E87.6 - Hypokalemia Status: Acute Assessment and Plan: -replace and monitor 3.4 today monitor for now 3.1 today- will replace and monitor 03/16- 3.4- continue replacement 03/17: 3.3, continue to monitor with daily labs 03/18: 3.1, will replace with 40 mEq IV today and continue to monitor -->Pt taking spironolactone 50mg BID, will continue with daily labs 03/19: 3.1, will replace with 80 mEq IV today and continue to monitor. May add on oral tomorrow if still not adequately supplemented. -Mag has been WDL 03/20: 3.6, will start K suppl today (packet) since plan to start one time dose of Lasix for BUE increased swelling -Per pt, she used to be on Lasix PRN for swelling as well as a potassium supplement. -Will continue to trend CMP due to Lasix one time dose, K suppl, and spironolactone use 03/21: 2.9 after Lasix admin yesterday. Spoke to Dr. Barnard and Dr. Hopkins about case and came up with the following plan: -Remain on spironolactone, daily K supplement, and add Furosemide 20mg IV daily (pt has had issues with digesting K suppl tabs in the past so she was put on powder, will continue to observe how she tolerates this route. -Will continue AM labs and swelling assessment 03/22: 3.2 -Will continue K suppl & lasix to decrease swelling -Will continue AM labs and swelling assessment 03/23: 2.8 today, reports diet not as great since yesterday -Will replete IV today as well -Will continue K suppl & lasix to decrease swelling, carmen napier ordered today -Will continue AM labs and swelling assessment (4) Paroxysmal atrial fibrillation with RVR: Code(s): I48.0 - Paroxysmal atrial fibrillation Status: Acute Assessment and Plan: -Anticoagulation not recommended at this time due to likely need for surgical intervention (IR on 03/17, may need to go back during this visit?) -Monitor Vital Signs Q4H and PRN -Has been in NST (5) UTI (urinary tract infection): Qualifiers: Hematuria presence: without hematuria Urinary tract infection type: acute cystitis Qualified Code(s): N30.00 - Acute cystitis without hematuria Code(s): N39.0 - Urinary tract infection, site not specified Status: Ruled-out Assessment and Plan: -Chronic indwelling Burgos catheter -UA appears potentially infected -Urine culture ordered, E coli -Blood cultures obtained, WDL -Continue abx for e coli Per nursing, pt experiencing discomfort with burgos catheter. I advised the use of lubrication about the insertion tube area as well as a PRN dose for Pyridium. (6) Critical illness myopathy: Code(s): G72.81 - Critical illness myopathy Status: Acute Assessment and Plan: -Patient generally weak s/p prolonged, complicated hospitalization -Not making much progress at acute rehab - PT/OT ordered and pt has been working with them (7) Hx of cardiac arrest: Code(s): Z86.74 - Personal history of sudden cardiac arrest Status: Acute Assessment and Plan: -Prior hospitalization complicated by cardiac arrest during procedure to place drain into intraabdominal abscess -Led to prolonged stay and significant weakness (8) Sacral decubitus ulcer: Code(s): L89.159 - Pressure ulcer of sacral region, unspecified stage Status: Acute Assessment and Plan: -Wound care consulted for apparent sacral pressure ulcers -Continue antifungal barrier cream -Turn schedule ordered, per therapy, pt not turning well by self Plan PT/OT ordered, continue IS, continue IV abx, daily labs, and I&O perc drain. CT yielding similar results, rads with recs future imaging. Surg pending Subjective Date/time seen: 03/23/25 2161 Interval history: Bharti Neal is a 74 year old female patient admitted to the hospital for findings of increased presacral intraabdominal abscess with concern for bowel perforation. She has a complex past medical history of diverticulitis, DM, HTN, cardiac arrest, septic shock, respiratory failure, abdominal abscess, anemia, hypernatremia, A-fib, hypokalemia, bilateral nephrolithiasis, hematuria, and CHF with recent prolonged admission to this facility. Patient was at [facility] and complained of left flank pain. She reported chills but no fever. No nausea/vomiting or other abdominal pain. Repeat CT scan was obtained which showed significant worsening of known intraabdominal abscess, now with air interspersed concerning for rupture of bowel. Patient admitted on IV antibiotics, NPO and surgical eval. 03/12- pt is seen and examined. Plan is to have drain placed today per radiology. 03/13 doing well. pain is better. drain in place. Resting with eyes closed. 03/14 wbc increased today drain in place, not much output. No appetite, but trying to drink supplements. no new or worsening abd pain, no chills 03/15 seen and examined. still weak, had repeated CT scan. vitals stable, no chills. Issues with drain as it was not draining as it should of. 03/16 CT today with drain replacement. needs a lot of encouragement with any activity and repositioning. Need to work with PT/OT but had been refusing. Discussed the need to do IS and work with PT/OT 03/17: IR to replace perc drain / second drain placement today per their schedule. Visited with pt today, states that she is tired of this process but does see why it is necessary. She states that she is feeling OK and only reports pain in her suprapubic abd when touched. I encouraged her today to continue to use her IS as well as participate with therapy and the importance of each, pt agreeable. 03/18: Pt resting in bed. Pt reports that she is still feeling mildly sluggish from her procedure yesterday but can tell that the drain is now working. Berrios/purulent drainage from perc drain. Only complaint today is some discomfort of her burgos, asked nursing to apply lube to the insertion tube and that I would also order Pyridium PRN for this. Encouraged to keep using her IS today as well as therapy, pt reports that she just did not want to participate in PT/OT one day due to being tired but she has been compliant since. Pt tolerating diet and drinking fluids. Per uro, continue IV abx, will continue to round. 03/19: Pt sitting up in chair with therapy when I entered the room, pt looking better today. Pt only reporting buttock pain, pt requesting Tylenol and I am also ordered a turn schedule to help with pressure on the buttocks. Per surgery team, to stay on IV abx and continue to trend labs (WBC) and drain output. BC prelim cultures back today, see below on plan. 03/20: Pt continues to report that she is feeling better. Daughter at the bedside today. Pt appears more edematous in her BUE today, states that she used to take lasix PRN today this as well as a potassium supplement. Pt denies SOB and CP. See plan below. 03/21: Pt c/o consistent diarrhea today, will obtain stool culture and order probiotic to start today due to pt being on long-term abx. Updated her on the probable plan of IV abx when she goes home, but will default to surgery for that. Pt with already established PICC in [facility]. Pt states that she thinks that her limb edema is getting better, will continue to monitor. 03/22: Pt more sourcing internship today, x2 friends at the bedside. Pt continues to report diarrhea but slightly better today. No abd pain noteworthy. Appetite seems to be better today as well. 03/23: Pt continues to feel eh, she has been in the hospital and I think it is starting to get to her. Pt does report that her diarrhea has been slowing down. Surg with repeat imaging today, see below. Review of Systems Review of Systems: All systems reviewed & are unremarkable except as noted in HPI and below Exam Const: General: comfortable and no acute distress Other: Chronically ill-appearing, obese HENMT: Face/Nose/Sinus: Normal nares present Mouth: Yes moist mucous membranes Eyes: General: appearance normal, both eyes and all related structures Sclera: sclerae normal Neck: Neck: supple and no JVD Resp: Effort & Inspection: normal respiratory effort Auscultation: clear to auscultation bilaterally and diminished lung sounds (throughout) Cardio: Rate: regular rate Rhythm: regular rhythm GI: Inspection: non-distended Auscultation: normal bowel sounds and abnormal bowel sounds (hyperactive) Other: R perc drain draining brown fluid, scant amount Urinary Catheter: Urinary Catheter: patent and draining and urine clear Skin: General skin exam: normal color Other: Sacral/L buttock pressure maceration noted, not open, antifungal cream/powder applied Neuro: Speech: normal speech Motor exam (neuro): Normal motor muscle tone present throughout Sensory Exam: normal sensation Extrem: General: normal to inspection, edema (BUE, trace today) bilateral and pedal edema (1+ pitting bilateral) bilaterally Psych: Mental Status: mental status grossly normal Affect: normal affect Objective Data Vital Signs Vital Signs: Vital Signs - 24 hr 03/22/25 08:40 03/22/25 09:00 03/22/25 14:10 Temperature 98.1 F Pulse Rate 70 86 Respiratory Rate 19 Blood Pressure 116/70 Pulse Oximetry 100 Oxygen Delivery Room Air Fraction of Inspired Oxygen 03/22/25 20:00 03/22/25 21:01 03/22/25 21:08 Temperature 97.5 F L Pulse Rate 105 H 97 105 H Respiratory Rate 20 20 Blood Pressure 136/83 Pulse Oximetry 97 97 Oxygen Delivery Room Air Fraction of Inspired Oxygen 1 03/23/25 06:00 Temperature 96.8 F L Pulse Rate 75 Respiratory Rate 20 Blood Pressure 139/93 H Pulse Oximetry 100 Oxygen Delivery Fraction of Inspired Oxygen Intake/Output Intake/Output: Intake & Output 03/20/25 03/21/25 03/22/25 03/23/25 23:59 23:59 23:59 23:59 Intake Total 0556 993 0114 Output Total 3055 1600 850 600 Balance -1974 -620 1200 -600 Meds/Results Medications: Active Medications Generic Name Dose Route Start Last Admin Trade Name Freq PRN Reason Stop Dose Admin Acetaminophen 650 mg 03/13/25 02:01 03/22/25 21:09 Acetaminophen 325 Mg Tablet PO 650 mg Q6H PRN Administration fever or pain Albuterol 2.5 mg 03/10/25 23:09 Albuterol Sulfate Neb 2.5 Mg/3 Ml Inh INHALATION Q6HRT PRN shortness of breath or wheezing Alprazolam 0.25 mg 03/10/25 23:09 03/22/25 21:09 Alprazolam (*Crx) 0.25 Mg Tablet PO 0.25 mg TID PRN Administration anxiety Amoxicillin 500 mg 03/22/25 14:00 03/23/25 05:10 Amoxicillin 500 Mg Capsule PO 500 mg Q8HR KANDIS Administration Dextrose 12.5 gm 03/10/25 23:10 Dextrose 50% 25 Gm/50 Ml Syringe IV PUSH PRN PRN Hypoglycemia Protocol Fluticasone Propionate 1 spray 03/11/25 00:29 Fluticasone Propionate 0.05% Na Spr 16 Gm Btl (*Bkc) NASAL Q12H PRN allergy symptoms Furosemide 20 mg 03/21/25 09:15 03/22/25 09:02 Furosemide Inj 40 Mg/4 Ml Vial IV PUSH 20 mg DAILY KANDIS Administration Glucagon 1 mg 03/10/25 23:10 Glucagon For Inj 1 Mg Vial IM PRN PRN Hypoglycemia Protocol Glucose 15 gm 03/10/25 23:10 Glucose Oral Gel 15 Gm Of Glucse In 37.5 Gm Tube PO PRN PRN Hypoglycemia Protocol Dextrose 1,000 mls @ 100 mls/hr 03/10/25 23:10 Dextrose 5% 1,000 Ml IVPB PRN PRN Hypoglycemia Protocol Meropenem 1 gm in 100 mls @ 200 mls/hr 03/22/25 14:00 03/23/25 05:10 IVPB 200 mls/hr Q8H KANDIS Administration Potassium Chloride 40 meq/ 520 mls @ 130 mls/hr 03/23/25 05:32 03/23/25 06:39 Sodium Chloride IVPB 03/23/25 09:31 130 mls/hr ONCE ONE Administration Insulin Aspart 4 - 8 units 03/11/25 08:00 03/22/25 17:43 Insulin Aspart (*Bkc) 100 Units/Ml SUB-Q Not Given TIDWM [facility] Protocol Insulin Glargine 10 units 03/20/25 21:00 03/22/25 21:54 Insulin Glargine (*Bkc) 100 Units/Ml SUB-Q Not Given HS [facility] Magnesium Oxide 400 mg 03/14/25 09:00 03/22/25 09:01 Magnesium Oxide 400 Mg Tablet PO 400 mg DAILY KANDIS Administration Metoprolol Succinate 37.5 mg 03/11/25 09:00 03/22/25 21:08 Metoprolol Succinate Ext Rel 12.5 Mg Tabcr PO 37.5 mg Q12HR [facility] Administration Miconazole Nitrate 1 applic 03/11/25 09:00 03/22/25 17:59 Miconazole Nitrate 2% Cream 30 Gm Tube TOPICAL 1 applic BID KANDIS Administration Morphine Sulfate 2 mg 03/11/25 10:29 03/21/25 20:56 Morphine Sulfate (*Crx) 2 Mg/Ml Inj IV PUSH 2 mg Q2H PRN Administration Pain Rated 4-6 Morphine Sulfate 4 mg 03/11/25 10:28 03/16/25 20:49 Morphine Sulfate (*Crx) 4 Mg/Ml Inj IV PUSH 4 mg Q2H PRN Administration Pain Rated 7-10 Pantoprazole Sodium 40 mg 03/11/25 09:00 03/22/25 21:10 Pantoprazole 40 Mg Tablet PO 40 mg Q12HR KANDIS Administration Phenazopyridine HCl 100 mg 03/18/25 09:59 03/18/25 13:06 Phenazopyridine Hcl 100 Mg Tablet PO 100 mg ONCE PRN Administration catheter pain Potassium Chloride 40 meq 03/21/25 09:00 03/22/25 09:02 Potassium Chloride 20 Meq Packet (For Liquid) PO 40 meq DAILY KANDIS Administration Saccharomyces Boulardii 250 mg 03/21/25 09:55 03/22/25 17:55 Saccharomyces Boulardii 250 Mg Capsule PO 250 mg BID KANDIS Administration Simethicone 80 mg 03/12/25 02:31 03/21/25 14:17 Simethicone 80 Mg Tab.Chew PO 80 mg QID PRN Administration Gas Discomfort Sodium Chloride 10 ml 03/12/25 14:00 03/23/25 05:11 Central Line Flush IV PUSH 10 ml Q8HR KANDIS Administration Sodium Chloride 10 ml 03/12/25 09:29 Central Line Flush IV PUSH PRN PRN with TPN bag changes Sodium Chloride 20 ml 03/12/25 09:29 03/23/25 04:35 Central Line Flush IV PUSH 20 ml PRN PRN Administration after blood draws Spironolactone 50 mg 03/11/25 09:00 03/22/25 17:56 Spironolactone 25 Mg Tablet PO 50 mg BID KANDIS Administration Tamsulosin HCl 0.4 mg 03/11/25 09:00 03/22/25 09:01 Tamsulosin Hcl 0.4 Mg Capsule PO 0.4 mg QAM KANDIS Administration Radiology Results: ITS Impressions Chest X-Ray 03/12/25 09:24 Impression: 1: Extensive stable bilateral airspace disease which may represent edema or pneumonia. 2: Bilateral pleural effusions without change. Catheter Placement CT 03/17/25 17:08 IMPRESSION: 1. Successful CT-guided transgluteal percutaneous abscess drainage catheter replacement. 2. 50 mL fluid was sent for aerobic and anaerobic cultures. 3. The catheter will be managed by Dr. Goins. Abdomen/Pelvis CT 03/23/25 07:22 Impression: Large irregular pelvic abscess is similar to prior exam, possibly minimally decreased. There is possible communication of the abscess with the distal rectum, which could reflect fistula/perforation. Consider administration of contrast via the drainage catheter under fluoroscopy to attempt to confirm or exclude communication with the large bowel lumen. Better delineated on this contrast-enhanced exam is extension of the abscess into the right gluteus jose f muscle, as detailed above. Percutaneous drainage catheter is present within the collection via right transgluteal approach. Cholelithiasis/gallbladder sludge, unchanged. Stable 2.1 x 1.3 cm stone at the right renal pelvis with additional smaller nonobstructing right renal stones. Stable large right adrenal adenoma. Small to moderate bilateral pleural effusions with extensive bibasilar atelectasis. Labs Labs: Laboratory Results - last 24 hr 03/22/25 03/22/25 03/22/25 11:55 17:19 21:00 WBC RBC Hgb Hct MCV MCH MCHC RDW Plt Count MPV Immature Gran % (Auto) Neut % (Auto) Lymph % (Auto) Cavalier % (Auto) Eos % (Auto) Baso % (Auto) Lymph # (Auto) Cavalier # (Auto) Eos # (Auto) Baso # (Auto) Abs Immat Gran (auto) Absolute Neuts (auto) Absolute Nucleated RBC Band Neutrophils % Nucleated RBC % Platelet Estimate Hypochromasia Anisocytosis Schistocytes Sodium Potassium Chloride Carbon Dioxide Anion Gap BUN Creatinine Estim Creat Clear Calc Estimated GFR Glucose POC Capillary Glucose 68 81 92 Calcium Magnesium Total Bilirubin AST ALT Alkaline Phosphatase Total Protein Albumin 03/23/25 03/23/25 04:34 07:48 WBC 11.0 H RBC 3.51 L Hgb 9.6 L Hct 31.6 L MCV 90.0 MCH 27.4 MCHC 30.4 L RDW 24.1 H Plt Count 345 MPV 9.2 Immature Gran % (Auto) 0.6 H Neut % (Auto) 87.7 H Lymph % (Auto) 4.7 L Cavalier % (Auto) 6.8 Eos % (Auto) 0.1 Baso % (Auto) 0.1 L Lymph # (Auto) 0.52 L Cavalier # (Auto) 0.7 H Eos # (Auto) 0.0 Baso # (Auto) 0.0 Abs Immat Gran (auto) 0.07 H Absolute Neuts (auto) 9.6 H Absolute Nucleated RBC 0.000 Band Neutrophils % Not Reportable Nucleated RBC % 0.0 Platelet Estimate Adequate Hypochromasia 1+ Anisocytosis 1+ Schistocytes None seen Sodium 138 Potassium 2.8 L* Chloride 101 Carbon Dioxide 34 H Anion Gap 3 L BUN 9 Creatinine 0.41 L Estim Creat Clear Calc 113 Estimated GFR > 60 Glucose 78 POC Capillary Glucose 69 Calcium 7.8 L Magnesium 1.9 Total Bilirubin 0.5 AST 18 ALT 8 Alkaline Phosphatase 102 Total Protein 5.8 L Albumin 2.2 L Quality VTE Prophylaxis VTE prophylaxis: mechanical ordered
[2025-03-23] MEDS: ACETAMINOPHEN 325 MG TABLET 650 MG PO ×2 (09:14→21:42)
[2025-03-23 09:15] VITALS: PULSE 76
[2025-03-23] MEDS: MAGNESIUM OXIDE 400 MG TABLET PO (09:15)
[2025-03-23] MEDS: FUROSEMIDE INJ 40 MG/4 ML VIAL 20 MG IV PUSH (09:15)
[2025-03-23] MEDS: SPIRONOLACTONE 25 MG TABLET 50 MG PO ×2 (09:15→17:18)
[2025-03-23] MEDS: METOPROLOL SUCCINATE EXT REL 12.5 MG TABCR 37.5 MG PO ×2 (09:15→21:43)
[2025-03-23] MEDS: SACCHAROMYCES BOULARDII 250 MG CAPSULE PO (09:15)
[2025-03-23] MEDS: PANTOPRAZOLE 40 MG TABLET PO ×2 (09:15→21:43)
[2025-03-23] MEDS: TAMSULOSIN HCL 0.4 MG CAPSULE PO (09:15)
[2025-03-23] MEDS: MICONAZOLE NITRATE 2% CREAM 30 GM TUBE 1 APPLIC TOPICAL ×2 (09:16→17:19)
[2025-03-23 11:35] LABS: Glucose Point of Care 269 mg/dl (65-105)
--- NOTE | 2025-03-23 11:37 | PCOTNOTE ---
Patient refused, Patient states, No way, I don't feel good, I need to rest, I had to much testing.
[2025-03-23] MEDS: INSULIN ASPART (*BKC) 100 UNITS/ML SUB-Q (12:39)
[2025-03-23] MEDS: ALPRAZolam (*CRX) 0.25 MG TABLET PO ×2 (13:28→21:43)
[2025-03-23 14:00] VITALS: BP 92/50; PULSE 74; RESP 18; TEMP 36.3; O2SAT 99
--- NOTE | 2025-03-23 14:58 | P.PNGS_ITS ---
Progress Note: A&P Assessment and Plan (1) Intra-abdominal abscess: Code(s): K65.1 - Peritoneal abscess Status: Acute Assessment and Plan: Pain is very minimal however repeat CT showed pelvic abscess to be similar to prior exam, possibly minimally decreased. There is possible communication of the abscess with the distal rectum, which could reflect fistula/perforation. Radiology advises to consider administration of contrast via the drainage catheter under fluoroscopy to attempt to confirm or exclude communication with the large bowel lumen. WBC decreased at 11.0. Continue IV meropenem and oral amoxicillin. Subjective Subjective Date/Time Seen: 03/23/25 14:58 Interval history: Patient is feeling well today. No abdominal pain or urinary pain. WBC decreased from yesterday at 11.0. Afebrile. Mildly tachycardic overnight. Cultures from 03/17 positive for E coli, Citrobacter koseri, Enterococcus Casselifavus. Antibiotics changed to meropenem IV and amoxicillin oral per ID pharm recs. Nursing notes rust colored stools. Stool cultures negative. Repeat CT today showed large irregular pelvic abscess is similar to prior exam, possibly minimally decreased. There is possible communication of the abscess with the distal rectum, which could reflect fistula/perforation. Exam GI: Inspection: normal to inspection, no abdominal wall ecchymosis, non- distended, obesity and other (Pigtail catheter in place, draining purulent fluid as before) Auscultation: normal bowel sounds Other: Minimal brownish purulent drainage in perc drain bag. Objective Data Vital Signs Vital Signs: Vital Signs - 24 hr 03/22/25 20:00 03/22/25 21:01 03/22/25 21:08 Temperature 97.5 F L Pulse Rate 105 H 97 105 H Respiratory Rate 20 20 Blood Pressure 136/83 Pulse Oximetry 97 97 Oxygen Delivery Room Air Fraction of Inspired Oxygen 1 03/23/25 06:00 03/23/25 08:00 03/23/25 09:15 Temperature 96.8 F L Pulse Rate 75 76 Respiratory Rate 20 Blood Pressure 139/93 H Pulse Oximetry 100 Oxygen Delivery Room Air Fraction of Inspired Oxygen 03/23/25 14:00 Temperature 97.3 F L Pulse Rate 74 Respiratory Rate 18 Blood Pressure 92/50 L Pulse Oximetry 99 Oxygen Delivery Fraction of Inspired Oxygen Intake/Output Intake/Output: Intake & Output 03/20/25 03/21/25 03/22/25 0617/25 23:59 23:59 23:59 23:59 Intake Total 5116 527 5790 1100 Output Total 3055 [phone] Balance -1974 1200 -200 Meds/Results Medications: Active Medications Generic Name Dose Route Start Last Admin Trade Name Freq PRN Reason Stop Dose Admin Acetaminophen 650 mg 03/13/25 02:01 03/23/25 09:14 Acetaminophen 325 Mg Tablet PO 650 mg Q6H PRN Administration fever or pain Albuterol 2.5 mg 03/10/25 23:09 Albuterol Sulfate Neb 2.5 Mg/3 Ml Inh INHALATION Q6HRT PRN shortness of breath or wheezing Alprazolam 0.25 mg 03/10/25 23:09 03/23/25 13:28 Alprazolam (*Crx) 0.25 Mg Tablet PO 0.25 mg TID PRN Administration anxiety Amoxicillin 500 mg 03/22/25 14:00 03/23/25 13:29 Amoxicillin 500 Mg Capsule PO 500 mg Q8HR KANDIS Administration Dextrose 12.5 gm 03/10/25 23:10 Dextrose 50% 25 Gm/50 Ml Syringe IV PUSH PRN PRN Hypoglycemia Protocol Fluticasone Propionate 1 spray 03/11/25 00:29 Fluticasone Propionate 0.05% Na Spr 16 Gm Btl (*Bkc) NASAL Q12H PRN allergy symptoms Furosemide 20 mg 03/21/25 09:15 03/23/25 09:15 Furosemide Inj 40 Mg/4 Ml Vial IV PUSH 20 mg DAILY KANDIS Administration Glucagon 1 mg 03/10/25 23:10 Glucagon For Inj 1 Mg Vial IM PRN PRN Hypoglycemia Protocol Glucose 15 gm 03/10/25 23:10 Glucose Oral Gel 15 Gm Of Glucse In 37.5 Gm Tube PO PRN PRN Hypoglycemia Protocol Dextrose 1,000 mls @ 100 mls/hr 03/10/25 23:10 Dextrose 5% 1,000 Ml IVPB PRN PRN Hypoglycemia Protocol Meropenem 1 gm in 100 mls @ 200 mls/hr 03/22/25 14:00 03/23/25 13:29 IVPB 200 mls/hr Q8H K[facility]IS Administration Insulin Aspart 4 - 8 units 03/11/25 08:00 03/23/25 12:39 Insulin Aspart (*Bkc) 100 Units/Ml SUB-Q 5 units TIDWM KANDIS Administration Protocol Insulin Glargine 8 units 03/23/25 21:00 Insulin Glargine (*Bkc) 100 Units/Ml SUB-Q HS [facility] Magnesium Oxide 400 mg 03/14/25 09:00 03/23/25 09:15 Magnesium Oxide 400 Mg Tablet PO 400 mg DAILY KANDIS Administration Metoprolol Succinate 37.5 mg 03/11/25 09:00 03/23/25 09:15 Metoprolol Succinate Ext Rel 12.5 Mg Tabcr PO 37.5 mg Q12HR K[facility]IS Administration Miconazole Nitrate 1 applic 03/11/25 09:00 03/23/25 09:16 Miconazole Nitrate 2% Cream 30 Gm Tube TOPICAL 1 applic BID [facility] Administration Morphine Sulfate 2 mg 03/11/25 10:29 03/21/25 20:56 Morphine Sulfate (*Crx) 2 Mg/Ml Inj IV PUSH 2 mg Q2H PRN Administration Pain Rated 4-6 Morphine Sulfate 4 mg 03/11/25 10:28 03/16/25 20:49 Morphine Sulfate (*Crx) 4 Mg/Ml Inj IV PUSH 4 mg Q2H PRN Administration Pain Rated 7-10 Pantoprazole Sodium 40 mg 03/11/25 09:00 03/23/25 09:15 Pantoprazole 40 Mg Tablet PO 40 mg Q12HR KANDIS Administration Phenazopyridine HCl 100 mg 03/18/25 09:59 03/18/25 13:06 Phenazopyridine Hcl 100 Mg Tablet PO 100 mg ONCE PRN Administration catheter pain Potassium Chloride 40 meq 03/21/25 09:00 03/22/25 09:02 Potassium Chloride 20 Meq Packet (For Liquid) PO 40 meq DAILY [facility] Administration Saccharomyces Boulardii 250 mg 03/21/25 09:55 03/23/25 09:15 Saccharomyces Boulardii 250 Mg Capsule PO 250 mg BID [facility]IS Administration Simethicone 80 mg 03/12/25 02:31 03/21/25 14:17 Simethicone 80 Mg Tab.Chew PO 80 mg QID PRN Administration Gas Discomfort Sodium Chloride 10 ml 03/12/25 14:00 03/23/25 13:30 Central Line Flush IV PUSH 10 ml Q8HR KANDIS Administration Sodium Chloride 10 ml 03/12/25 09:29 Central Line Flush IV PUSH PRN PRN with TPN bag changes Sodium Chloride 20 ml 03/12/25 09:29 03/23/25 04:35 Central Line Flush IV PUSH 20 ml PRN PRN Administration after blood draws Spironolactone 50 mg 03/11/25 09:00 03/23/25 09:15 Spironolactone 25 Mg Tablet PO 50 mg BID KANDIS Administration Tamsulosin HCl 0.4 mg 03/11/25 09:00 03/23/25 09:15 Tamsulosin Hcl 0.4 Mg Capsule PO 0.4 mg QAM KANDIS Administration Radiology Results: ITS Impressions Chest X-Ray 03/12/25 09:24 Impression: 1: Extensive stable bilateral airspace disease which may represent edema or pneumonia. 2: Bilateral pleural effusions without change. Catheter Placement CT 03/17/25 17:08 IMPRESSION: 1. Successful CT-guided transgluteal percutaneous abscess drainage catheter replacement. 2. 50 mL fluid was sent for aerobic and anaerobic cultures. 3. The catheter will be managed by Dr. Goins. Abdomen/Pelvis CT 03/23/25 07:22 Impression: Large irregular pelvic abscess is similar to prior exam, possibly minimally decreased. There is possible communication of the abscess with the distal rectum, which could reflect fistula/perforation. Consider administration of contrast via the drainage catheter under fluoroscopy to attempt to confirm or exclude communication with the large bowel lumen. Better delineated on this contrast-enhanced exam is extension of the abscess into the right gluteus jose f muscle, as detailed above. Percutaneous drainage catheter is present within the collection via right transgluteal approach. Cholelithiasis/gallbladder sludge, unchanged. Stable 2.1 x 1.3 cm stone at the right renal pelvis with additional smaller nonobstructing right renal stones. Stable large right adrenal adenoma. Small to moderate bilateral pleural effusions with extensive bibasilar atelectasis. Labs Labs: Laboratory Results - last 24 hr 03/22/25 03/22/25 03/23/25 17:19 21:00 04:34 WBC 11.0 H RBC 3.51 L Hgb 9.6 L Hct 31.6 L MCV 90.0 MCH 27.4 MCHC 30.4 L RDW 24.1 H Plt Count 345 MPV 9.2 Immature Gran % (Auto) 0.6 H Neut % (Auto) 87.7 H Lymph % (Auto) 4.7 L [place] % (Auto) 6.8 Eos % (Auto) 0.1 Baso % (Auto) 0.1 L Lymph # (Auto) 0.52 L [place] # (Auto) 0.7 H Eos # (Auto) 0.0 Baso # (Auto) 0.0 Abs Immat Gran (auto) 0.07 H Absolute Neuts (auto) 9.6 H Absolute Nucleated RBC 0.000 Band Neutrophils % Not Reportable Nucleated RBC % 0.0 Platelet Estimate Adequate Hypochromasia 1+ Anisocytosis 1+ Schistocytes None seen Sodium 138 Potassium 2.8 L* Chloride 101 Carbon Dioxide 34 H Anion Gap 3 L BUN 9 Creatinine 0.41 L Estim Creat Clear Calc 113 Estimated GFR > 60 Glucose 78 POC Capillary Glucose 81 92 Calcium 7.8 L Magnesium 1.9 Total Bilirubin 0.5 AST 18 ALT 8 Alkaline Phosphatase 102 Total Protein 5.8 L Albumin 2.2 L 03/23/25 03/23/25 07:48 11:26 WBC RBC Hgb Hct MCV MCH MCHC RDW Plt Count MPV Immature Gran % (Auto) Neut % (Auto) Lymph % (Auto) [place] % (Auto) Eos % (Auto) Baso % (Auto) Lymph # (Auto) [place] # (Auto) Eos # (Auto) Baso # (Auto) Abs Immat Gran (auto) Absolute Neuts (auto) Absolute Nucleated RBC Band Neutrophils % Nucleated RBC % Platelet Estimate Hypochromasia Anisocytosis Schistocytes Sodium Potassium Chloride Carbon Dioxide Anion Gap BUN Creatinine Estim Creat Clear Calc Estimated GFR Glucose POC Capillary Glucose 69 269 H Calcium Magnesium Total Bilirubin AST ALT Alkaline Phosphatase Total Protein Albumin
[2025-03-23 17:03] LABS: Glucose Point of Care 80 mg/dl (65-105)
[2025-03-23 20:50] VITALS: BP 127/66; PULSE 78; RESP 20; TEMP 36.2; O2SAT 95
[2025-03-23 21:43] VITALS: PULSE 84
[2025-03-23 21:44] LABS: Glucose Point of Care 92 mg/dl (65-105)
[2025-03-24 05:25] LABS: Basophils Percent Auto 0.3 % (0.2-1.2); Eosinophils Absolute Auto 0.1 K/mm3 (0-0.3); Eosinophils Percent Auto 0.9 % (0-4.4); Hematocrit 31.6 % (37.0-47.0); Hemoglobin 9.5 g/dL (12.0-15.0); Immature Granulocyte Absolute 0.05 K/mm3 (0.00-0.031); Immature Granulocyte Percent A 0.7 % (0-0.5); Lymphocytes Absolute Auto 0.56 K/mm3 (0.9-3.2); Lymphocytes Percent Auto 7.4 % (18.3-44.2); Mean Corpuscular HGB Conc 30.1 g/dl (32-36); Mean Corpuscular Hemoglobin 27.5 pg (26-34); Mean Corpuscular Volume 91.3 fl (80-100); Mean Platelet Volume 9.2 fl (7.4-10.4); Monocytes Absolute Auto 0.6 K/mm3 (0.1-0.6); Monocytes Percent Auto 8.4 % (2.6-8.5); Neutrophils Absolute Auto 6.3 K/mm3 (1.3-6.7); Neutrophils Percent Auto 82.3 % (45.5-73.1); Platelet Count Result 359 k/mm3 (150-375); Red Blood Count 3.46 M/mm3 (4.2-5.4); Red Cell Distribution Width 24.1 % (11.5-14.5); White Blood Count 7.6 K/mm3 (4.5-10.0)
[2025-03-24] MEDS: CENTRAL LINE FLUSH 10 ML IV PUSH ×2 (05:30→13:01)
[2025-03-24] MEDS: CENTRAL LINE FLUSH 20 ML IV PUSH (05:30)
[2025-03-24] MEDS: MEROPENEM 1 GM/NS 100 ML 1 GM/100 ML BAG IVPB ×2 (05:31→13:02)
[2025-03-24] MEDS: AMOXICILLIN 500 MG CAPSULE PO ×2 (05:31→13:01)
[2025-03-24 05:38] LABS: Alanine Aminotransferase 6 U/L (6-35); Albumin Level 2.1 g/dL (3.5-5.1); Alkaline Phosphatase 97 U/L (38-126); Anion Gap 3 mmol/L (4-12); Aspartate Amino Transferase 16 U/L (14-36); Bilirubin,Total 0.5 mg/dL (0.2-1.3); Blood Urea Nitrogen 10 mg/dL (7-17); Calcium 7.7 mg/dL (8.4-10.2); Carbon Dioxide 33 mmol/L (22-30); Chloride 102 mmol/L (98-107); Estimated CRCL calculation 113 ml/min; Estimated Glomerular Filt Rate > 60; Glucose 74 mg/dL (65-110); Sodium 138 mmol/L (137-145); Total Protein 5.5 g/dL (6.3-8.2)
[2025-03-24 05:47] LABS: Band Neutrophils Percent 0 % (0-6)
[2025-03-24 05:48] LABS: Hypochromasia 1+; Platelet Estimate Adequate (Adequate); Poikilocytosis 1+; Schistocytes None Seen
[2025-03-24 06:00] VITALS: BP 145/97; PULSE 80; RESP 16; TEMP 36.4; O2SAT 99
[2025-03-24] MEDS: MORPHINE SULFATE (*CRX) 2 MG/ML INJ IV PUSH (06:27)
[2025-03-24] MEDS: POTASSIUM CHLORIDE 20 MEQ PACKET (FOR LIQUID) 40 MEQ PO ×2 (08:03→12:45)
[2025-03-24] MEDS: TAMSULOSIN HCL 0.4 MG CAPSULE PO (08:03)
[2025-03-24] MEDS: PANTOPRAZOLE 40 MG TABLET PO (08:03)
[2025-03-24] MEDS: SACCHAROMYCES BOULARDII 250 MG CAPSULE PO (08:03)
[2025-03-24] MEDS: MAGNESIUM OXIDE 400 MG TABLET PO (08:04)
[2025-03-24] MEDS: SPIRONOLACTONE 25 MG TABLET 50 MG PO (08:04)
[2025-03-24] MEDS: FUROSEMIDE INJ 40 MG/4 ML VIAL 20 MG IV PUSH (08:04)
[2025-03-24 08:07] LABS: Glucose Point of Care 87 mg/dl (65-105)
[2025-03-24 08:10] VITALS: RESP 16; O2SAT 99
[2025-03-24] MEDS: MICONAZOLE NITRATE 2% CREAM 30 GM TUBE 1 APPLIC TOPICAL (08:10)
[2025-03-24 09:15] VITALS: PULSE 80
[2025-03-24] MEDS: METOPROLOL SUCCINATE EXT REL 12.5 MG TABCR 37.5 MG PO (09:15)
[2025-03-24] MEDS: MORPHINE SULFATE (*CRX) 4 MG/ML INJ IV PUSH (11:25)
--- NOTE | 2025-03-24 11:26 | PM.PNGS ---
Progress Note: A&P Assessment and Plan (1) Intra-abdominal abscess: Code(s): K65.1 - Peritoneal abscess Status: Acute Assessment and Plan: Hypaque enema today showed two areas of communication with the abscess, one in the rectum (about 7 cm above the anal verge) and the other at the rectosigmoid junction with a stricture. Also showed possible occlusion of the drain. Will flush the perc drain to assess patency. This is unlikely to resolve with IV antibiotics and percutaneous drainage, and will likely require surgical management. We would recommend transfer to a tertiary care facility where she can be evaluated by a colorectal surgeon. Discussed this with the patient and her daughter. Continue IV antibiotics and perc drain for now while awaiting transfer. Discussed with the Hospitalist as well. Plan I have discussed the patient's case and plan of care with Dr. Goins. Subjective Subjective Date/Time Seen: 03/24/25 11:26 Patient reports: afebrile Interval history: Patient reports having an onset of abdominal pain following a Hypaque enema. She reports the pain started when she got back to the medical floor. She reports generalized pain. She has had a large liquid bowel movement since the enema. WBC count normalized today. No other complaints at this time. Exam Const: General: awake and uncomfortable ( Due to abdominal pain); No acute distress Orientation/consciousness: patient oriented x3 GI: Inspection: non-distended GI Palp: Yes Soft to palpation, Yes Tenderness to palpation present (GI) ( lower abdominal tenderness, most focally in the suprapubic area), No Guarding due to palpation present (GI) and No Rebound tenderness present Auscultation: normal bowel sounds Other: large rivas liquid bowel movement in the bed on my exam percutaneous drain with dark rivas, feculent-appearing drainage in the drain Objective Data Vital Signs Vital Signs: Vital Signs - 24 hr 03/23/25 14:00 03/23/25 20:00 03/23/25 20:50 Temperature 97.3 F L 97.2 F L Pulse Rate 74 78 Respiratory Rate 18 20 Blood Pressure 92/50 L 127/66 Pulse Oximetry 99 95 Oxygen Delivery Room Air Fraction of Inspired Oxygen 03/23/25 21:43 03/24/25 06:00 03/24/25 08:10 Temperature 97.5 F L Pulse Rate 84 80 Respiratory Rate 16 16 Blood Pressure 145/97 H Pulse Oximetry 99 99 Oxygen Delivery Room Air Fraction of Inspired Oxygen 1 03/24/25 09:15 Temperature Pulse Rate 80 Respiratory Rate Blood Pressure Pulse Oximetry Oxygen Delivery Fraction of Inspired Oxygen Intake/Output Intake/Output: Intake & Output 03/21/25 03/22/25 03/23/25 03/24/25 23:59 23:59 23:59 23:59 Intake Total 980 2050 1300 340 Output Total 0421 049 8763 1100 Balance -620 1200 0 -760 Meds/Results Medications: Active Medications Generic Name Dose Route Start Last Admin Trade Name Freq PRN Reason Stop Dose Admin Acetaminophen 650 mg 03/13/25 02:01 03/23/25 21:42 Acetaminophen 325 Mg Tablet PO 650 mg Q6H PRN Administration fever or pain Albuterol 2.5 mg 03/10/25 23:09 Albuterol Sulfate Neb 2.5 Mg/3 Ml Inh INHALATION Q6HRT PRN shortness of breath or wheezing Alprazolam 0.25 mg 03/10/25 23:09 03/23/25 21:43 Alprazolam (*Crx) 0.25 Mg Tablet PO 0.25 mg TID PRN Administration anxiety Amoxicillin 500 mg 03/22/25 14:00 03/24/25 05:31 Amoxicillin 500 Mg Capsule PO 500 mg Q8HR KANDIS Administration Dextrose 12.5 gm 03/10/25 23:10 Dextrose 50% 25 Gm/50 Ml Syringe IV PUSH PRN PRN Hypoglycemia Protocol Fluticasone Propionate 1 spray 03/11/25 00:29 Fluticasone Propionate 0.05% Na Spr 16 Gm Btl (*Bkc) NASAL Q12H PRN allergy symptoms Furosemide 20 mg 03/21/25 09:15 03/24/25 08:04 Furosemide Inj 40 Mg/4 Ml Vial IV PUSH 20 mg DAILY KANDIS Administration Glucagon 1 mg 03/10/25 23:10 Glucagon For Inj 1 Mg Vial IM PRN PRN Hypoglycemia Protocol Glucose 15 gm 03/10/25 23:10 Glucose Oral Gel 15 Gm Of Glucse In 37.5 Gm Tube PO PRN PRN Hypoglycemia Protocol Dextrose 1,000 mls @ 100 mls/hr 03/10/25 23:10 Dextrose 5% 1,000 Ml IVPB PRN PRN Hypoglycemia Protocol Meropenem 1 gm in 100 mls @ 200 mls/hr 03/22/25 14:00 03/24/25 06:08 IVPB Infused Q8H [facility] Infusion Insulin Aspart 4 - 8 units 03/11/25 08:00 03/24/25 08:10 Insulin Aspart (*Bkc) 100 Units/Ml SUB-Q Not Given TIDWM [facility] Protocol Insulin Glargine 8 units 03/23/25 21:00 03/23/25 22:20 Insulin Glargine (*Bkc) 100 Units/Ml SUB-Q Not Given HS [facility] Loperamide HCl 2 mg 03/23/25 15:47 Loperamide Hcl 2 Mg Capsule PO PRN PRN Diarrhea Magnesium Oxide 400 mg 03/14/25 09:00 03/24/25 08:04 Magnesium Oxide 400 Mg Tablet PO 400 mg DAILY [facility] Administration Metoprolol Succinate 37.5 mg 03/11/25 09:00 03/24/25 09:15 Metoprolol Succinate Ext Rel 12.5 Mg Tabcr PO 37.5 mg Q12HR [facility] Administration Miconazole Nitrate 1 applic 03/11/25 09:00 03/24/25 08:10 Miconazole Nitrate 2% Cream 30 Gm Tube TOPICAL 1 applic BID [facility] Administration Morphine Sulfate 2 mg 03/11/25 10:29 03/24/25 06:27 Morphine Sulfate (*Crx) 2 Mg/Ml Inj IV PUSH 2 mg Q2H PRN Administration Pain Rated 4-6 Morphine Sulfate 4 mg 03/11/25 10:28 03/24/25 11:25 Morphine Sulfate (*Crx) 4 Mg/Ml Inj IV PUSH 4 mg Q2H PRN Administration Pain Rated 7-10 Pantoprazole Sodium 40 mg 03/11/25 09:00 03/24/25 08:03 Pantoprazole 40 Mg Tablet PO 40 mg Q12HR [facility] Administration Phenazopyridine HCl 100 mg 03/18/25 09:59 03/18/25 13:06 Phenazopyridine Hcl 100 Mg Tablet PO 100 mg ONCE PRN Administration catheter pain Potassium Chloride 40 meq 03/21/25 09:00 03/24/25 08:03 Potassium Chloride 20 Meq Packet (For Liquid) PO 40 meq DAILY [facility] Administration Saccharomyces Boulardii 250 mg 03/21/25 09:55 03/24/25 08:03 Saccharomyces Boulardii 250 Mg Capsule PO 250 mg BID [facility] Administration Simethicone 80 mg 03/12/25 02:31 03/21/25 14:17 Simethicone 80 Mg Tab.Chew PO 80 mg QID PRN Administration Gas Discomfort Sodium Chloride 10 ml 03/12/25 14:00 03/24/25 05:30 Central Line Flush IV PUSH 10 ml Q8HR KANDIS Administration Sodium Chloride 10 ml 03/12/25 09:29 Central Line Flush IV PUSH PRN PRN with TPN bag changes Sodium Chloride 20 ml 03/12/25 09:29 03/24/25 05:30 Central Line Flush IV PUSH 20 ml PRN PRN Administration after blood draws Spironolactone 50 mg 03/11/25 09:00 03/24/25 08:04 Spironolactone 25 Mg Tablet PO 50 mg BID [facility]IS Administration Tamsulosin HCl 0.4 mg 03/11/25 09:00 03/24/25 08:03 Tamsulosin Hcl 0.4 Mg Capsule PO 0.4 mg QAM [facility]IS Administration Radiology Results: ITS Impressions Chest X-Ray 03/12/25 09:24 Impression: 1: Extensive stable bilateral airspace disease which may represent edema or pneumonia. 2: Bilateral pleural effusions without change. Catheter Placement CT 03/17/25 17:08 IMPRESSION: 1. Successful CT-guided transgluteal percutaneous abscess drainage catheter replacement. 2. 50 mL fluid was sent for aerobic and anaerobic cultures. 3. The catheter will be managed by Dr. Goins. Abdomen/Pelvis CT 03/23/25 07:22 Impression: Large irregular pelvic abscess is similar to prior exam, possibly minimally decreased. There is possible communication of the abscess with the distal rectum, which could reflect fistula/perforation. Consider administration of contrast via the drainage catheter under fluoroscopy to attempt to confirm or exclude communication with the large bowel lumen. Better delineated on this contrast-enhanced exam is extension of the abscess into the right gluteus jose f muscle, as detailed above. Percutaneous drainage catheter is present within the collection via right transgluteal approach. Cholelithiasis/gallbladder sludge, unchanged. Stable 2.1 x 1.3 cm stone at the right renal pelvis with additional smaller nonobstructing right renal stones. Stable large right adrenal adenoma. Small to moderate bilateral pleural effusions with extensive bibasilar atelectasis. Enema w/Water Soluble 03/24/25 10:48 IMPRESSION: 1. Contrast opacifies the presacral abscess cavity which appears to communicate with the bowel both at the rectum and at the site of a stricture at the rectosigmoid junction. 2. Contrast extends along side the drainage catheter which remains unopacified with contrast which may be occluded. Consider saline flush of the catheter. Labs Labs: Laboratory Results - last 24 hr 03/23/25 03/23/25 03/23/25 11:26 16:58 20:49 WBC RBC Hgb Hct MCV MCH MCHC RDW Plt Count MPV Immature Gran % (Auto) Neut % (Auto) Lymph % (Auto) [place] % (Auto) Eos % (Auto) Baso % (Auto) Lymph # (Auto) [place] # (Auto) Eos # (Auto) Baso # (Auto) Abs Immat Gran (auto) Absolute Neuts (auto) Absolute Nucleated RBC Band Neutrophils % Nucleated RBC % Platelet Estimate Hypochromasia Poikilocytosis Schistocytes Sodium Potassium Chloride Carbon Dioxide Anion Gap BUN Creatinine Estim Creat Clear Calc Estimated GFR Glucose POC Capillary Glucose 269 H 80 92 Calcium Magnesium Total Bilirubin AST ALT Alkaline Phosphatase Total Protein Albumin 03/24/25 03/24/25 05:18 08:05 WBC 7.6 RBC 3.46 L Hgb 9.5 L Hct 31.6 L MCV 91.3 MCH 27.5 MCHC 30.1 L RDW 24.1 H Plt Count 359 MPV 9.2 Immature Gran % (Auto) 0.7 H Neut % (Auto) 82.3 H Lymph % (Auto) 7.4 L [place] % (Auto) 8.4 Eos % (Auto) 0.9 Baso % (Auto) 0.3 Lymph # (Auto) 0.56 L [place] # (Auto) 0.6 Eos # (Auto) 0.1 Baso # (Auto) 0.0 Abs Immat Gran (auto) 0.05 H Absolute Neuts (auto) 6.3 Absolute Nucleated RBC 0.000 Band Neutrophils % 0 Nucleated RBC % 0.0 Platelet Estimate Adequate Hypochromasia 1+ Poikilocytosis 1+ Schistocytes None seen Sodium 138 Potassium 3.0 L Chloride 102 Carbon Dioxide 33 H Anion Gap 3 L BUN 10 Creatinine 0.41 L Estim Creat Clear Calc 113 Estimated GFR > 60 Glucose 74 POC Capillary Glucose 87 Calcium 7.7 L Magnesium 2.0 Total Bilirubin 0.5 AST 16 ALT 6 Alkaline Phosphatase 97 Total Protein 5.5 L Albumin 2.1 L
--- NOTE | 2025-03-24 11:53 | PM.IMPN ---
Subjective Date/time seen: 03/24/25 11:53 Review of Systems Review of Systems: All systems reviewed & are unremarkable except as noted in HPI and below Objective Data Vital Signs Vital Signs: Vital Signs - 24 hr 03/23/25 14:00 03/23/25 20:00 03/23/25 20:50 Temperature 97.3 F L 97.2 F L Pulse Rate 74 78 Respiratory Rate 18 20 Blood Pressure 92/50 L 127/66 Pulse Oximetry 99 95 Oxygen Delivery Room Air Fraction of Inspired Oxygen 03/23/25 21:43 03/24/25 06:00 03/24/25 08:10 Temperature 97.5 F L Pulse Rate 84 80 Respiratory Rate 16 16 Blood Pressure 145/97 H Pulse Oximetry 99 99 Oxygen Delivery Room Air Fraction of Inspired Oxygen 1 03/24/25 09:15 Temperature Pulse Rate 80 Respiratory Rate Blood Pressure Pulse Oximetry Oxygen Delivery Fraction of Inspired Oxygen Intake/Output Intake/Output: Intake & Output 03/21/25 03/22/25 03/23/25 03/24/25 23:59 23:59 23:59 23:59 Intake Total 980 2050 1300 340 Output Total 5222 386 4957 1100 Balance -620 1200 0 -760 Meds/Results Medications: Active Medications Generic Name Dose Route Start Last Admin Trade Name Freq PRN Reason Stop Dose Admin Acetaminophen 650 mg 03/13/25 02:01 03/23/25 21:42 Acetaminophen 325 Mg Tablet PO 650 mg Q6H PRN Administration fever or pain Albuterol 2.5 mg 03/10/25 23:09 Albuterol Sulfate Neb 2.5 Mg/3 Ml Inh INHALATION Q6HRT PRN shortness of breath or wheezing Alprazolam 0.25 mg 03/10/25 23:09 03/23/25 21:43 Alprazolam (*Crx) 0.25 Mg Tablet PO 0.25 mg TID PRN Administration anxiety Amoxicillin 500 mg 03/22/25 14:00 03/24/25 05:31 Amoxicillin 500 Mg Capsule PO 500 mg Q8HR KANDIS Administration Dextrose 12.5 gm 03/10/25 23:10 Dextrose 50% 25 Gm/50 Ml Syringe IV PUSH PRN PRN Hypoglycemia Protocol Fluticasone Propionate 1 spray 03/11/25 00:29 Fluticasone Propionate 0.05% Na Spr 16 Gm Btl (*Bkc) NASAL Q12H PRN allergy symptoms Furosemide 20 mg 03/21/25 09:15 03/24/25 08:04 Furosemide Inj 40 Mg/4 Ml Vial IV PUSH 20 mg DAILY KANDIS Administration Glucagon 1 mg 03/10/25 23:10 Glucagon For Inj 1 Mg Vial IM PRN PRN Hypoglycemia Protocol Glucose 15 gm 03/10/25 23:10 Glucose Oral Gel 15 Gm Of Glucse In 37.5 Gm Tube PO PRN PRN Hypoglycemia Protocol Dextrose 1,000 mls @ 100 mls/hr 03/10/25 23:10 Dextrose 5% 1,000 Ml IVPB PRN PRN Hypoglycemia Protocol Meropenem 1 gm in 100 mls @ 200 mls/hr 03/22/25 14:00 03/24/25 06:08 IVPB Infused Q8H KANDIS Infusion Insulin Aspart 4 - 8 units 03/11/25 08:00 03/24/25 08:10 Insulin Aspart (*Bkc) 100 Units/Ml SUB-Q Not Given TIDWM [facility] Protocol Insulin Glargine 8 units 03/23/25 21:00 03/23/25 22:20 Insulin Glargine (*Bkc) 100 Units/Ml SUB-Q Not Given HS [facility] Loperamide HCl 2 mg 03/23/25 15:47 Loperamide Hcl 2 Mg Capsule PO PRN PRN Diarrhea Magnesium Oxide 400 mg 03/14/25 09:00 03/24/25 08:04 Magnesium Oxide 400 Mg Tablet PO 400 mg DAILY KANDIS Administration Metoprolol Succinate 37.5 mg 03/11/25 09:00 03/24/25 09:15 Metoprolol Succinate Ext Rel 12.5 Mg Tabcr PO 37.5 mg Q12HR KANDIS Administration Miconazole Nitrate 1 applic 03/11/25 09:00 03/24/25 08:10 Miconazole Nitrate 2% Cream 30 Gm Tube TOPICAL 1 applic BID KANDIS Administration Morphine Sulfate 2 mg 03/11/25 10:29 03/24/25 06:27 Morphine Sulfate (*Crx) 2 Mg/Ml Inj IV PUSH 2 mg Q2H PRN Administration Pain Rated 4-6 Morphine Sulfate 4 mg 03/11/25 10:28 03/24/25 11:25 Morphine Sulfate (*Crx) 4 Mg/Ml Inj IV PUSH 4 mg Q2H PRN Administration Pain Rated 7-10 Pantoprazole Sodium 40 mg 03/11/25 09:00 03/24/25 08:03 Pantoprazole 40 Mg Tablet PO 40 mg Q12HR KANDIS Administration Phenazopyridine HCl 100 mg 03/18/25 09:59 03/18/25 13:06 Phenazopyridine Hcl 100 Mg Tablet PO 100 mg ONCE PRN Administration catheter pain Potassium Chloride 40 meq 03/21/25 09:00 03/24/25 08:03 Potassium Chloride 20 Meq Packet (For Liquid) PO 40 meq DAILY KANDIS Administration Saccharomyces Boulardii 250 mg 03/21/25 09:55 03/24/25 08:03 Saccharomyces Boulardii 250 Mg Capsule PO 250 mg BID KANDIS Administration Simethicone 80 mg 03/12/25 02:31 03/21/25 14:17 Simethicone 80 Mg Tab.Chew PO 80 mg QID PRN Administration Gas Discomfort Sodium Chloride 10 ml 03/12/25 14:00 03/24/25 05:30 Central Line Flush IV PUSH 10 ml Q8HR KANDIS Administration Sodium Chloride 10 ml 03/12/25 09:29 Central Line Flush IV PUSH PRN PRN with TPN bag changes Sodium Chloride 20 ml 03/12/25 09:29 03/24/25 05:30 Central Line Flush IV PUSH 20 ml PRN PRN Administration after blood draws Spironolactone 50 mg 03/11/25 09:00 03/24/25 08:04 Spironolactone 25 Mg Tablet PO 50 mg BID KANDIS Administration Tamsulosin HCl 0.4 mg 03/11/25 09:00 03/24/25 08:03 Tamsulosin Hcl 0.4 Mg Capsule PO 0.4 mg QAM KANDIS Administration Radiology Results: ITS Impressions Chest X-Ray 03/12/25 09:24 Impression: 1: Extensive stable bilateral airspace disease which may represent edema or pneumonia. 2: Bilateral pleural effusions without change. Catheter Placement CT 03/17/25 17:08 IMPRESSION: 1. Successful CT-guided transgluteal percutaneous abscess drainage catheter replacement. 2. 50 mL fluid was sent for aerobic and anaerobic cultures. 3. The catheter will be managed by Dr. Goins. Abdomen/Pelvis CT 03/23/25 07:22 Impression: Large irregular pelvic abscess is similar to prior exam, possibly minimally decreased. There is possible communication of the abscess with the distal rectum, which could reflect fistula/perforation. Consider administration of contrast via the drainage catheter under fluoroscopy to attempt to confirm or exclude communication with the large bowel lumen. Better delineated on this contrast-enhanced exam is extension of the abscess into the right gluteus jose f muscle, as detailed above. Percutaneous drainage catheter is present within the collection via right transgluteal approach. Cholelithiasis/gallbladder sludge, unchanged. Stable 2.1 x 1.3 cm stone at the right renal pelvis with additional smaller nonobstructing right renal stones. Stable large right adrenal adenoma. Small to moderate bilateral pleural effusions with extensive bibasilar atelectasis. Enema w/Water Soluble 03/24/25 10:48 IMPRESSION: 1. Contrast opacifies the presacral abscess cavity which appears to communicate with the bowel both at the rectum and at the site of a stricture at the rectosigmoid junction. 2. Contrast extends along side the drainage catheter which remains unopacified with contrast which may be occluded. Consider saline flush of the catheter. Labs Labs: Laboratory Results - last 24 hr 03/23/25 03/23/25 03/24/25 16:58 20:49 05:18 WBC 7.6 RBC 3.46 L Hgb 9.5 L Hct 31.6 L MCV 91.3 MCH 27.5 MCHC 30.1 L RDW 24.1 H Plt Count 359 MPV 9.2 Immature Gran % (Auto) 0.7 H Neut % (Auto) 82.3 H Lymph % (Auto) 7.4 L [place] % (Auto) 8.4 Eos % (Auto) 0.9 Baso % (Auto) 0.3 Lymph # (Auto) 0.56 L [place] # (Auto) 0.6 Eos # (Auto) 0.1 Baso # (Auto) 0.0 Abs Immat Gran (auto) 0.05 H Absolute Neuts (auto) 6.3 Absolute Nucleated RBC 0.000 Band Neutrophils % 0 Nucleated RBC % 0.0 Platelet Estimate Adequate Hypochromasia 1+ Poikilocytosis 1+ Schistocytes None seen Sodium 138 Potassium 3.0 L Chloride 102 Carbon Dioxide 33 H Anion Gap 3 L BUN 10 Creatinine 0.41 L Estim Creat Clear Calc 113 Estimated GFR > 60 Glucose 74 POC Capillary Glucose 80 92 Calcium 7.7 L Magnesium 2.0 Total Bilirubin 0.5 AST 16 ALT 6 Alkaline Phosphatase 97 Total Protein 5.5 L Albumin 2.1 L 03/24/25 08:05 WBC RBC Hgb Hct MCV MCH MCHC RDW Plt Count MPV Immature Gran % (Auto) Neut % (Auto) Lymph % (Auto) [place] % (Auto) Eos % (Auto) Baso % (Auto) Lymph # (Auto) [place] # (Auto) Eos # (Auto) Baso # (Auto) Abs Immat Gran (auto) Absolute Neuts (auto) Absolute Nucleated RBC Band Neutrophils % Nucleated RBC % Platelet Estimate Hypochromasia Poikilocytosis Schistocytes Sodium Potassium Chloride Carbon Dioxide Anion Gap BUN Creatinine Estim Creat Clear Calc Estimated GFR Glucose POC Capillary Glucose 87 Calcium Magnesium Total Bilirubin AST ALT Alkaline Phosphatase Total Protein Albumin
[2025-03-24 12:20] LABS: Potassium 3.1 mmol/L (3.4-5.0)
[2025-03-24 12:21] LABS: Glucose Point of Care 108 mg/dl (65-105)
[2025-03-24] MEDS: ALPRAZolam (*CRX) 0.25 MG TABLET PO (12:46)
--- NOTE | 2025-03-24 12:53 | P.TS_ITS ---
Transfer Discharge Sum: Prov Provider Date of admission: 03/10/25 23:16 Primary care physician: Lexy George APRN Admitting clinician: Enrico Hopkins MD Attending physician on admission: Enrico Hopkins Consults: 03/10/25 Consult to Physician Routine Comment: Consulting Provider: Chris Sapp Reason for consultation: Intra-abdominal abscess, possible perforation Has provider been notified: Yes 03/11/25 Wound/ET Consult Routine Reason for Consult:: Sacral pressure wounds Attending physician on discharge: Enrico Hopkins Discharging clinician: Radha Cardenas Anticipated date of transfer: 03/24/25 Receiving physician/facility: [facility] Dr. Montanez. Condition: serious/stable DS: Admitting Diagnosis Discharge Date 03/24/25 Admitting Diagnosis Abdominal pain DS: Discharge Diagnosis Discharge Diagnosis (1) Intra-abdominal abscess: Code(s): K65.1 - Peritoneal abscess Status: Acute (2) UTI (urinary tract infection): Qualifiers: Hematuria presence: without hematuria Urinary tract infection type: acute cystitis Qualified Code(s): N30.00 - Acute cystitis without hematuria Code(s): N39.0 - Urinary tract infection, site not specified Status: Ruled-out (3) Paroxysmal atrial fibrillation with RVR: Code(s): I48.0 - Paroxysmal atrial fibrillation Status: Acute (4) Type 2 diabetes mellitus with hyperglycemia: Code(s): E11.65 - Type 2 diabetes mellitus with hyperglycemia Status: Acute (5) Hypokalemia: Code(s): E87.6 - Hypokalemia Status: Acute (6) Critical illness myopathy: Code(s): G72.81 - Critical illness myopathy Status: Acute (7) Hx of cardiac arrest: Code(s): Z86.74 - Personal history of sudden cardiac arrest Status: Acute (8) Sacral decubitus ulcer: Code(s): L89.159 - Pressure ulcer of sacral region, unspecified stage Status: Acute Transfer Discharge Sum: Med Medications Active and Home Medications: Home Medications lancets 30 gauge (BD Microtainer Lancet) #200 ea 11/04/24 [Rx Confirmed 03/10/25] blood sugar diagnostic (Blood Glucose Test strips) #100 ea 11/23/24 [Rx Confirmed 03/10/25] blood-glucose meter #1 ea 11/23/24 [Rx Confirmed 03/10/25] insulin glargine 100 unit/mL subcutaneous solution (Lantus U-100 Insulin) 10 unit (0.1 mL) subcut HS #300 mL 02/25/25 [Rx Confirmed 03/10/25] metoprolol succinate 25 mg tablet,extended release 24 hr 37.5 mg (1.5 x 25 mg) PO BID #60 tabs 02/25/25 [Rx Confirmed 03/10/25] pantoprazole 40 mg tablet,delayed release 40 mg PO Q12HR #30 tabs 02/25/25 [Rx Confirmed 03/10/25] spironolactone 25 mg tablet 50 mg (2 x 25 mg) PO BID #30 tabs 02/25/25 [Rx Confirmed 03/10/25] tamsulosin 0.4 mg capsule 0.4 mg PO QAM #30 caps 02/25/25 [Rx Confirmed 03/10/25] acetaminophen 325 mg tablet 325 mg PO Q6H PRN fever or pain 03/10/25 [History Confirmed 03/10/25] albuterol sulfate 2.5 mg/3 mL (0.083 %) solution for nebulization 2.5 mg inhalation Q6H PRN shortness of breath or wheezing 03/10/25 [History Confirmed 03/10/25] alprazolam 0.25 mg tablet 0.25 mg PO TID PRN anxiety 03/10/25 [History Confirmed 03/10/25] dextrose 50 % in water (D50W) 12.5 g IV ONCE PRN hypoglycemia 03/10/25 [History Confirmed 03/10/25] enoxaparin 40 mg/0.4 mL subcutaneous syringe 40 mg subcut DAILY 03/10/25 [History Confirmed 03/10/25] fluticasone propionate 50 mcg/actuation nasal spray,suspension (Allergy Relief (fluticasone)) 1 spray intranasal Q12H PRN allergy symptoms 03/10/25 [History Confirmed 03/10/25] miconazole nitrate 2 % topical cream (Antifungal (miconazole)) 1 applic topical BID 03/10/25 [History Confirmed 03/10/25] Active Medications Acetaminophen (Acetaminophen 325 Mg Tablet) 650 mg PO Q6H PRN PRN Reason: fever or pain Last Admin: 03/23/25 21:42 Dose: 650 mg Albuterol (Albuterol Sulfate Neb 2.5 Mg/3 Ml Inh) 2.5 mg INHALATION Q6HRT PRN PRN Reason: shortness of breath or wheezing Alprazolam (Alprazolam (*Crx) 0.25 Mg Tablet) 0.25 mg PO TID PRN PRN Reason: anxiety Last Admin: 03/24/25 12:46 Dose: 0.25 mg Amoxicillin (Amoxicillin 500 Mg Capsule) 500 mg PO Q8HR [facility] Last Admin: 03/24/25 05:31 Dose: 500 mg Dextrose (Dextrose 50% 25 Gm/50 Ml Syringe) 12.5 gm IV PUSH PRN PRN; Protocol PRN Reason: Hypoglycemia Fluticasone Propionate (Fluticasone Propionate 0.05% Na Spr 16 Gm Btl (*Bkc)) 1 spray NASAL Q12H PRN PRN Reason: allergy symptoms Furosemide (Furosemide Inj 40 Mg/4 Ml Vial) 20 mg IV PUSH DAILY [facility] Last Admin: 03/24/25 08:04 Dose: 20 mg Glucagon (Glucagon For Inj 1 Mg Vial) 1 mg IM PRN PRN; Protocol PRN Reason: Hypoglycemia Glucose (Glucose Oral Gel 15 Gm Of Glucse In 37.5 Gm Tube) 15 gm PO PRN PRN; Protocol PRN Reason: Hypoglycemia Dextrose (Dextrose 5% 1,000 Ml) 1,000 mls @ 100 mls/hr IVPB PRN PRN; Protocol PRN Reason: Hypoglycemia Meropenem () 1 gm in 100 mls @ 200 mls/hr IVPB Q8H [facility] Last Infusion: 03/24/25 06:08 Dose: Infused Insulin Aspart (Insulin Aspart (*Bkc) 100 Units/Ml) 4 - 8 units SUB-Q TIDWM [facility]; Protocol Last Admin: 03/24/25 12:35 Dose: Not Given Insulin Glargine (Insulin Glargine (*Bkc) 100 Units/Ml) 8 units SUB-Q HS [facility] Last Admin: 03/23/25 22:20 Dose: Not Given Loperamide HCl (Loperamide Hcl 2 Mg Capsule) 2 mg PO PRN PRN PRN Reason: Diarrhea Magnesium Oxide (Magnesium Oxide 400 Mg Tablet) 400 mg PO DAILY [facility] Last Admin: 03/24/25 08:04 Dose: 400 mg Metoprolol Succinate (Metoprolol Succinate Ext Rel 12.5 Mg Tabcr) 37.5 mg PO Q12HR [facility] Last Admin: 03/24/25 09:15 Dose: 37.5 mg Miconazole Nitrate (Miconazole Nitrate 2% Cream 30 Gm Tube) 1 applic TOPICAL BID [facility] Last Admin: 03/24/25 08:10 Dose: 1 applic Morphine Sulfate (Morphine Sulfate (*Crx) 2 Mg/Ml Inj) 2 mg IV PUSH Q2H PRN PRN Reason: Pain Rated 4-6 Last Admin: 03/24/25 06:27 Dose: 2 mg Morphine Sulfate (Morphine Sulfate (*Crx) 4 Mg/Ml Inj) 4 mg IV PUSH Q2H PRN PRN Reason: Pain Rated 7-10 Last Admin: 03/24/25 11:25 Dose: 4 mg Pantoprazole Sodium (Pantoprazole 40 Mg Tablet) 40 mg PO Q12HR [facility] Last Admin: 03/24/25 08:03 Dose: 40 mg Phenazopyridine HCl (Phenazopyridine Hcl 100 Mg Tablet) 100 mg PO ONCE PRN PRN Reason: catheter pain Last Admin: 03/18/25 13:06 Dose: 100 mg Potassium Chloride (Potassium Chloride 20 Meq Packet (For Liquid)) 40 meq PO DAILY [facility] Last Admin: 03/24/25 08:03 Dose: 40 meq Saccharomyces Boulardii (Saccharomyces Boulardii 250 Mg Capsule) 250 mg PO BID [facility] Last Admin: 03/24/25 08:03 Dose: 250 mg Simethicone (Simethicone 80 Mg Tab.Chew) 80 mg PO QID PRN PRN Reason: Gas Discomfort Last Admin: 03/21/25 14:17 Dose: 80 mg Sodium Chloride (Central Line Flush) 10 ml IV PUSH Q8HR [facility] Last Admin: 03/24/25 05:30 Dose: 10 ml Sodium Chloride (Central Line Flush) 10 ml IV PUSH PRN PRN PRN Reason: with TPN bag changes Sodium Chloride (Central Line Flush) 20 ml IV PUSH PRN PRN PRN Reason: after blood draws Last Admin: 03/24/25 05:30 Dose: 20 ml Spironolactone (Spironolactone 25 Mg Tablet) 50 mg PO BID [facility] Last Admin: 03/24/25 08:04 Dose: 50 mg Tamsulosin HCl (Tamsulosin Hcl 0.4 Mg Capsule) [facility] [place] Last Admin: 03/24/25 08:03 Dose: 0.4 mg Transfer Discharge Sum: Hosp Hospital Course Hospital course: Bharti Neal is a 74 year old female patient admitted to the hospital for findings of increased presacral intraabdominal abscess with concern for bowel perforation. She has a complex past medical history of diverticulitis, DM, HTN, cardiac arrest, septic shock, respiratory failure, abdominal abscess, anemia, hypernatremia, A-fib, hypokalemia, bilateral nephrolithiasis, hematuria, and CHF with recent prolonged admission to this facility. Patient was at [facility] and complained of left flank pain. She reported chills but no fever. No nausea/vomiting or other abdominal pain. Repeat CT scan was obtained which showed significant worsening of known intraabdominal abscess, now with air interspersed concerning for rupture of bowel. Patient admitted on IV antibiotics and NPO status pending surgical evaluation in the morning. During previous hospitalization patient had multiple sets of positive blood cultures. Today, labs show WBC 11.7, Potassium 3.3, Sodium 136, CRP 12.7, ESR 83, eGFR >60 with eCrCl 89. UA concerning for infection with positive nitrates, 3+ leukocyte esterase, >100 RBCs, >100 WBCs, 4+ urine bacteria and >20 casts. Moderate squamous cells also present. Patient started on Rocephin and Flagyl in ER. Chest X-Ray 03/12/25 09:24 Impression: 1: Extensive stable bilateral airspace disease which may represent edema or pneumonia. 2: Bilateral pleural effusions without change. Catheter Placement CT 03/12/25 15:47 IMPRESSION: 1. Successful CT-guided abscess drainage. 2. 20 mL fluid was sent for aerobic and anaerobic cultures. 3. The catheter will be managed by Dr. Goins. Catheter Placement CT 03/17/25 17:08 IMPRESSION: 1. Successful CT-guided transgluteal percutaneous abscess drainage catheter replacement. 2. 50 mL fluid was sent for aerobic and anaerobic cultures. 3. The catheter will be managed by Dr. Goins. Abdomen/Pelvis CT 03/23/25 07:22 Impression: Large irregular pelvic abscess is similar to prior exam, possibly minimally decreased. There is possible communication of the abscess with the distal rectum, which could reflect fistula/perforation. Consider administration of contrast via the drainage catheter under fluoroscopy to attempt to confirm or exclude communication with the large bowel lumen. Better delineated on this contrast-enhanced exam is extension of the abscess into the right gluteus jose f muscle, as detailed above. Percutaneous drainage catheter is present within the collection via right transgluteal approach. Cholelithiasis/gallbladder sludge, unchanged. Stable 2.1 x 1.3 cm stone at the right renal pelvis with additional smaller nonobstructing right renal stones. Stable large right adrenal adenoma. Small to moderate bilateral pleural effusions with extensive bibasilar atelectasis. Enema w/Water Soluble 03/24/25 10:48 IMPRESSION: 1. Contrast opacifies the presacral abscess cavity which appears to communicate with the bowel both at the rectum and at the site of a stricture at the rectosigmoid junction. 2. Contrast extends along side the drainage catheter which remains unopacified with contrast which may be occluded. Consider saline flush of the catheter. 03/10 Urine culture grew E coli. 03/12 Abscess grew Bacteroides fragilis group 03/17 abdominal fluid grew: Escherichia coli, Citrobacter Koseri, and Enterococcus Casselifavus. 03/21 Stool negative for E coli, salmonella, and Campylobacter antigen assay. Patient currently receiving Amoxicillin 500 mg PO q8 and Meropenem 1 gram IVPB q 8. Surgery followed patient during stay and recommended today that patient be transferred to facility with Colorectal service for possible surgical intervention. 03/24/25: * Hypaque enema today showed two areas of communication with the abscess, one in the rectum (about 7 cm above the anal verge) and the other at the rectosigmoid junction with a stricture. Also showed possible occlusion of the drain. Will flush the perc drain to assess patency. * Transferred patient to [facility]. Time Spent with Patient Time attestation: Total time spent providing and/or coordinating transfer services: 65 Total time spent: Greater than 30 minutes Exam Const: General: uncomfortable Eyes: Sclera: sclerae normal Resp: Effort & Inspection: normal respiratory effort Cardio: Rate: regular rate Rhythm: regular rhythm GI: GI Palp: Yes Soft to palpation Auscultation: normal bowel sounds Other: R perc drain draining purulent fluid, scant amount Neuro: Speech: normal speech Extrem: General: pedal edema bilaterally 1+ Other: Trace BUE edema. Psych: Mental Status: mental status grossly normal Affect: Anxious affect present (pain after enema) DS: Data Data Completed and Pending Labs on day of discharge: Labs from last 24 hours 03/24/25 03/24/25 03/24/25 12:18 12:04 08:05 WBC RBC Hgb Hct MCV MCH MCHC RDW Plt Count MPV Immature Gran % (Auto) Neut % (Auto) Lymph % (Auto) [place] % (Auto) Eos % (Auto) Baso % (Auto) Lymph # (Auto) [place] # (Auto) Eos # (Auto) Baso # (Auto) Abs Immat Gran (auto) Absolute Neuts (auto) Absolute Nucleated RBC Band Neutrophils % Nucleated RBC % Platelet Estimate Hypochromasia Poikilocytosis Schistocytes Sodium Potassium 3.1 L Chloride Carbon Dioxide Anion Gap BUN Creatinine Estim Creat Clear Calc Estimated GFR Glucose POC Capillary Glucose 108 H 87 Calcium Magnesium Total Bilirubin AST ALT Alkaline Phosphatase Total Protein Albumin 03/24/25 03/23/25 03/23/25 05:18 20:49 16:58 WBC 7.6 RBC 3.46 L Hgb 9.5 L Hct 31.6 L MCV 91.3 MCH 27.5 MCHC 30.1 L RDW 24.1 H Plt Count 359 MPV 9.2 Immature Gran % (Auto) 0.7 H Neut % (Auto) 82.3 H Lymph % (Auto) 7.4 L [place] % (Auto) 8.4 Eos % (Auto) 0.9 Baso % (Auto) 0.3 Lymph # (Auto) 0.56 L [place] # (Auto) 0.6 Eos # (Auto) 0.1 Baso # (Auto) 0.0 Abs Immat Gran (auto) 0.05 H Absolute Neuts (auto) 6.3 Absolute Nucleated RBC 0.000 Band Neutrophils % 0 Nucleated RBC % 0.0 Platelet Estimate Adequate Hypochromasia 1+ Poikilocytosis 1+ Schistocytes None seen Sodium 138 Potassium 3.0 L Chloride 102 Carbon Dioxide 33 H Anion Gap 3 L BUN 10 Creatinine 0.41 L Estim Creat Clear Calc 113 Estimated GFR > 60 Glucose 74 POC Capillary Glucose 92 80 Calcium 7.7 L Magnesium 2.0 Total Bilirubin 0.5 AST 16 ALT 6 Alkaline Phosphatase 97 Total Protein 5.5 L Albumin 2.1 L
[2025-03-24 14:00] VITALS: BP 106/63; PULSE 65; RESP 18; TEMP 36.3; O2SAT 100
== END 2025-03-24 14:45 | disposition short-term general hospital (02) | DRG 371 ==
LOC: ANHED 19:25 → ANH2MED 20:25
PROVIDERS: Nurse Practitioner; Radiology Diagnostic Radiology; Admitting Provider General Practice; Emergency Provider Physician Assistant; PCP Nurse Practitioner Family; Visit Provider Nurse Practitioner Family
PROC: 0W9G30Z Drainage of Peritoneal Cavity with Drainage Device, Percutaneous Approach (ICD-10-PCS; CPT 75989; principal; 2025-03-12 11:00)
DX: K65.1 Peritoneal abscess (principal); K63.1 Perforation of intestine (nontraumatic); G72.81 Critical illness myopathy; T83.511A Infection and inflammatory reaction due to indwelling urethral catheter, initial encounter; N39.0 Urinary tract infection, site not specified; T85.618A Breakdown (mechanical) of other specified internal prosthetic devices, implants and grafts, initial encounter; I10 Essential (primary) hypertension; I48.0 Paroxysmal atrial fibrillation; E13.9 Other specified diabetes mellitus without complications; E87.6 Hypokalemia; L89.159 Pressure ulcer of sacral region, unspecified stage; B95.2 Enterococcus as the cause of diseases classified elsewhere; B96.20 Unspecified Escherichia coli [E. coli] as the cause of diseases classified elsewhere; B96.6 Bacteroides fragilis [B. fragilis] as the cause of diseases classified elsewhere; R60.9 Edema, unspecified; R19.7 Diarrhea, unspecified; Z79.4 Long term (current) use of insulin
CPT/HCPCS: 36415; 36569; 74176; 74177; 74270; 75989; 80053; 81001; 82948; 83605; 83735; 84132; 85025; 85610; 85652; 85730; 86140; 87040; 87045; 87070; 87075; 87086; 87181; 87186; 87205; 87427; 87449; 87493; 96365; 96366; 96367; 96375; 97110; 97162; 97167; 97530; 99285; A9270; C1729; C1751; C1769; G0378; J0696; J1815; J1836; J1938; J2185; J2250; J2270; J2543; J3010; J3480; J7030; J7040; J7121; Q9967

== ENCOUNTER 2025-06-18 18:42 | Emergency (ER) | payer MEDICARE, SELFPAY ==
--- OUTSIDE RECORDS SUMMARY | 2025-05-17 19:00 | XMS_ITS | Continuity of Care Document ---
Author Organization [facility] Address [address] [place] [phone] Phone Care Team Providers Care Tub Operator Name Role Phone Oneil Castillo MD, FACCBrian Unavailable Unav ailable Procedures Procedure Date SUBSEQUENT HOSPITAL CARE INITIAL HOSPITAL CARE SUBSEQUENT HOSPITAL CARE SUBSEQUENT HOSPITAL CARE SUBSEQUENT HOSPITAL CARE INITIAL INPATIENT CONSULT SUBSEQUENT HOSPITAL CARE SUBSEQUENT HOSPITAL CARE SUBSEQUENT HOSPITAL CARE SUBSEQUENT HOSPITAL CARE SUBSEQUENT HOSPITAL CARE SUBSEQUENT HOSPITAL CARE SUBSEQUENT HOSPITAL CARE Advance Directives Directive Yes / No Effective Date File Name No Information Encounters Encounter Description Practice Location Reason(s) For Visit Diagnoses Date Provider Providers Copied on Encounter SUBSEQUENT HOSPITAL CARE [facility], [address] [place] [address], [id number] , tel: [phone] [facility] [place] [facility] [employer] Other persistent atrial fibrillationEssent ial (primary) hypertension 5 Oneil Torres. [address], [place], [id number] , . tel: [phone] Referring Provider: Nu Peters, [address] [place] [address], [id number]. tel:[phone] Family History Family Member Type Diagnosis Age At Onset No Information Payers Payer name Insurance type Covered constitution party ID Authoriza tion(s) [place] B [id number] Social History Type Description Quantity Date Captured Comments Sex Female Smoking Status No Information Chief Complaint And Reason For Visit No Information Reason For Referral Reason For Referral No Information History Of Present Illness Encounter Date Complaint History Of Prese nt Illness No Information Functional Status Date Functional Assessmen t No Information Instructions Date Instruction Additional Infor mation No Information Assessments Type Assessment Date No Information Patient Care Teams Name Effective Dates (start - stop) Status Members No Information
[2025-06-18] VITALS (25 sets, daily range): BP systolic 67–121; BP diastolic 40–82; PULSE 108–130; RESP 16–30; TEMP 36.3; O2SAT 84–100
--- NOTE | ~2025-06-18 | CT_ITS ---
CTA CHEST CT ABDOMEN PELVIS CLINICAL HISTORY: hypoxia, sepsis . COMPARISON: CT abdomen and pelvis 03/23/2025 Chest x-ray same day TECHNIQUE: Helical CT performed from thoracic inlet to symphysis pubis 100 mL Omnipaque 350 Coronal, sagittal reformats. Multiplanar MIPS CT images acquired with automatic exposure control for dose reduction DLP: 1886 mGy-cm FINDINGS: CHEST- Thoracic Aorta: No dissection. No aneurysm. Pulmonary arteries: Normal caliber. No PE. Lungs/Pleura: Moderate pleural effusions. Significant bibasilar atelectasis and/or airspace elevation. Centrilobular airspace disease right lower lobe. Heart: Unremarkable. Tracheobronchial tree: Occluded right lower lobe bronchus intermedius. Occluded left basilar foci Nodes: No enlarged nodes. Left hilar calcifications. Bones: No acute bony abnormality. Chronic sternal fracture. Soft tissues: Unremarkable. ABDOMEN/PELVIS- Liver: Enlarged. Steatosis. Gallbladder: Stones. Percutaneous cholecystostomy tube. Gallbladder wall thickening Spleen: Unremarkable. Pancreas: Atrophic. 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 Hounsfield units [address] consistent with adenoma. Kidneys: Right kidney- No hydronephrosis. 10 mm stone. Left kidney- No hydronephrosis. 2 mm stone. Small cysts. Distal esophagus/stomach: PEG tube. Small bowel loops: Normal caliber and wall thickness. Colon: Severe rectosigmoid wall thickening. Less severe proximal colonic thickening. Sigmoid colostomy. Normal RLQ appendix. Diverticula. Nodes: Retroperitoneal nodes. Right iliac chain nodes. Peritoneum: No ascites. No free air. Ill-defined pelvic abscess, pigtail drain within collection but within gluteal soft tissues. Worsening surrounding inflammatory changes. Urinary bladder: Unremarkable. Uterus: Unremarkable. Adnexa: No masses. Bones: No acute bony abnormality. Soft tissues: Unremarkable. Abdominal aorta: Unremarkable. IVC: Unremarkable. Main portal vein, SMV: Patent. IMPRESSION: CHEST- 1. Large bilateral aspiration pneumonia. 2. Bilateral pleural effusions. 3. Occlusive debris right bronchus intermedius. 4. No PE. ABDOMEN/PELVIS- 1. Large pelvic abscess as before, roughly same size. Percutaneous drainage catheter has been retracted, no longer within collection, but within gluteal soft tissues. 2. Probable sigmoid leak/communication to perirectal space accounting for abscess. 3. Colitis of sigmoid colon and rectum, and less severe colitis of proximal colon. 4. Percutaneous colostomy catheter within gallbladder lumen. 5. Developing retroperitoneal and iliac chain lymph nodes, reactive to above and/or developing metastatic nodes. 6. Additional findings as before. Reviewed, dictated and finalized at location R. IMPRESSION: CHEST- 1. Large bilateral aspiration pneumonia. 2. Bilateral pleural effusions. 3. Occlusive debris right bronchus intermedius. 4. No PE. ABDOMEN/PELVIS- 1. Large pelvic abscess as before, roughly same size. Percutaneous drainage ca theter has been retracted, no longer within collection, but within gluteal soft tissues. 2. Probable sigmoid leak/communication to perirectal space accounting for absc ess. 3. Colitis of sigmoid colon and rectum, and less severe colitis of proximal co elenita. 4. Percutaneous colostomy catheter within gallbladder lumen. 5. Developing retroperitoneal and iliac chain lymph nodes, reactive to above a nd/or developing metastatic nodes. 6. Additional findings as before.
--- NOTE | ~2025-06-18 | XR_ITS ---
XR chest 1V portable 06/18/2025 20:10 Indication: Weakness Procedure: AP portable chest Comparison: Comparison to multiple prior studies sequentially, with oldest reviewed study dated 02/08/2025. Findings: Bibasilar airspace disease. Small pleural effusions. Cardiomegaly. There is atherosclerosis. No pneumothorax. There are degenerative changes of the shoulders. Impression: 1: Bibasilar airspace disease may represent edema or pneumonia. 2: Pleural effusions. Reviewed, dictated and finalized at location O. Impression: 1: Bibasilar airspace disease may represent edema or pneumonia. 2: Pleural effusions.
--- NOTE | 2025-06-18 19:27 | ECG_ITS ---
Test Date: 2025-06-18 18:54:49 Measurements Intervals [place] Rate: 111 P: 0 TX: 0 QRS: -31 QRSD: 98 T: 131 QT: 348 QTc: 474 Interpretive Statements ATRIAL FIBRILLATION WITH RAPID VENTRICULAR RESPONSE WITH ABERRANT CONDUCTION OR VENTRICULAR PREMATURE COMPLEXES LEFT ANTERIOR FASCICULAR BLOCK PATTERN CONSISTENT WITH PULMONARY DISEASE NONSPECIFIC T-WAVE ABNORMALITY ABNORMAL ECG Electronically Signed On 06-19-2025 12:16:52 CDT by David Moreno M.D.
--- OUTSIDE RECORDS SUMMARY | 2025-06-18 20:19 | XMS_ITS | Clinical Summary ---
Author Organization [facility] Address [address] [place] [id number] Care Team Providers Care Crutching Contractor Name Role Phone Unavailable Primary Care Provider [...] 2000 Dexa Scan (General) 12/21/2015 COVID-19 Vaccine ( - 2023-2 5 season) 2025 RSV Immunization or 60+ Years (1 - [...]
--- OUTSIDE RECORDS SUMMARY | 2025-06-18 20:19 | XMS_ITS | Encounter Summary ---
Author Organization [facility] Address [address] [place] [address] Care Team Providers Care Research Microbiologist Name Role Phone Lexy George APRN-TERMINAL GAUGER Primary Care Provider [phone] Reason for Visit * Reason Onset Date Comments Appointment 06/16/2025 Encounter Details Date Type Department Care Team (Late st Contact Info) Description 06/16/2025 Telephone [facility] - Colorectal Surgery [address], [facility] [address] [place] [address] Itz Mahan MD [address] [facility] [address] [place] [address] Appointment Social History Tobacco Use Types Packs/Day Years Used Date Smoking Tobacco: Never Passive Smoke Exposure: Never Smokeless Tobacco: Never Alcohol Use Standard Drinks/Week Comments Never 0 (1 standard drink = 0.6 oz pur e alcohol) AUDIT-C Answer Date Recorded Q1: How often do you have a drink containing alcohol? Never 03/24/2025 Q2: How many drinks containi ng alcohol do you have on a typical day when you are drinking? Patient does not drink Q3: How often do you have si x or more drinks on one occasion? Never 03/24/2025 Overall Financial Resource Strain (CARDIA) Answe r Date Recorded How hard is it for you to pa y for the very basics like food, housing, medical care, and heating? Not hard at all 03/30/2025 [facility] - Occupational Stress Questionnaire Answer Date Recorded Do you feel stress - tense, restless, nervous, or anxious, or unable to sleep at night because your mind is troubled all the time - these days? Not at all 03/30/2025 Hunger Vital Sign Answer Date Recorded Within the past 12 months, y ou worried that your food would run out before you got the money to buy more. Never true 03/30/20 25 Within the past 12 months, t he food you bought just didn't last and you didn't have money to get more. Never true 03/30/2025 PRAPARE - Transportation Answer Date Re corded In the past 12 months, has l ack of transportation kept you from medical appointments or from getting medications? No 03/08 In the past 12 months, has l ack of transportation kept you from meetings, work, or from getting things needed for daily living? No 03/30/2025 Housing Stability Vital Sign Answer Reggie e Recorded In the last 12 months, was t here a time when you were not able to pay the mortgage or rent on time? No 03/30/2025 In the past 12 months, how m any times have you moved where you were living? 0 03/30/2025 At any time in the past 12 m [facility], were you homeless or living in a fdc (including now)? No 03/30/2025 Comments Unknown Sex and Gender Information Value Date Recorded Sex Assigned at Female 03/24/2025 4:25 PM CDT Legal Sex Female 12:01 PM CDT Gender Identity Not on file Sexual Orientation Not on file documented as of this encounter Functional Status * Is person deaf or have serious hearing difficulty? Answer Date of Assessment Author No 03/25/2025 12:30 AM CDT Mariah Hoyt RN * Is person blind or have serious difficulty seeing? Answer Date of Assessment Author No 03/25/2025 12:30 AM CDT Mariah Hoyt RN * Does person have serious difficulty walking/climbing stairs? Answer Date of Assessment Author Yes 03/25/2025 12:30 AM AINSLEYT Mariah Hoyt RN * Does person have difficulty dressing/bathing? Answer Date of Assessment Author Yes 03/25/2025 12:30 AM AINSLEYT Mariah Hoyt RN * Does person have difficulty doing errands alone? Answer Date of Assessment Author Yes 03/25/2025 12:30 AM CDT Pryzma, Mariah A, RN documented as of this encounter Mental Status * Does person have difficulty concentrating/remembering/making decisions? Answer Entry Date Author No 03/25/2025 12:30 AM CDT Mariah Hoyt RN documented in this encounter Miscellaneous Notes * Telephone Encounter - Radha Curtis - 06/16/2025 1:24 PM CDT Tried to call Rehab facility and was put on hold for over 15 minutes. Wanted to talk to someone in charge on why the patient missed her appointment again. 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
--- OUTSIDE RECORDS SUMMARY | 2025-06-18 20:19 | XMS_ITS | Clinical Summary ---
Author Organization [facility] Address [address] [facility] [address] Care Team Providers Care Pediatric Dentist Name Role Phone Lexy George ENOC-MANAGER INVESTIGATIONS Primary Care Provider [phone] Source Comments [facility],non-owned Affiliates and Associated Physician Practices is amultiple site organization consisting of ambulatory clinics and hospital sitesin [place], [place], [place] and [place]. This disclosure is being madepursuant to the Care Everywhere program and may not contain all information available regarding this patient. Last updated 18.[facility] Allergies Active Allergy Reactions Criticality Noted Date Comments Ciprofloxacin Rash Medium 03/24/2025 Codeine Rash Medium 03/24/2025 Iron Supplement Psychiatric Medium 04/13/2025 Changes mood and anxiety Nsaids Other 03/24/2025 Nose bleeds Metoclopramide CLINICAL PRODUCT MANAGER Dysfunction Low 04/20/2025 Mental confusion delirium Mirtazapine Other Low 04/20/2025 Very sleepy, caused her to sleep all night and most of the next day Medications * Be aware that medications may not be up to date on this document. Alwaysverify current medications with the patient. insulin glargine (Lantus/Semgle e) 100 units/ml injection Inject 8 (eight) Units subcutaneously at bedtime Active insulin aspart (NovoLOG) vial Inject 4 (four) Units subcutaneously 3 times daily before meals Active fluticasone hfa 44 (Flovent HFA 44) 44 MCG/ACT inhaler Inhale 2 (two) puffs by mouth 2 times daily Active fluticasone propionate (Flonase) 50 MCG/ACT nasal spray [place] 2 (two) sprays into each nostril Active ALPRAZolam (Xanax) 0.25 MG tablet 1 (one) tablet by Per G Tube route 2 times daily as needed for Anxiety 15 tablet 5 Active hydrOXYzine HCl (Atarax) 25 MG tablet Take 1 (one) tablet by mouth 3 times daily as needed for Itching 5 Active acetaminophen (Tylenol) 325 MG tablet 2 (two) tablets by Per G Tube route every 4 hours as needed Maximum allowable Acetaminophen amount = 4 Grams (4000 mg) / 24 hours. 5 Active calcium carbonate (Tums) 500 MG chew tablet Take 2 (two) tablets by mouth every 2 hours as needed for Heartburn (chew and swallow) 5 Active metoprolol tartrate IR (Lopressor) 25 MG tablet 1 (one) tablet by Per G Tube route every 8 hours 5 Active megestrol (Megace) 40 MG/ML suspension 5 mL by Per G Tube route 3 times daily 5 Active verapamil (Isoptin) 40 MG tablet 0.5 (one-half) tablet by Per G Tube route every 8 hours 5 Active guaiFENesin-de xtromethorphan (Robitussin DM) 100-10 MG/5ML syrup Take 10 mL by mouth every 6 hours as needed for Cough 5 Active balsam hattie-castor (Venelex) ointmentIndica tions:Pressure Ulcer Apply to affected area 2 times daily Reasons: Bed Sores 5 Active folic acid (Folvite) 1 MG tablet 1 (one) tablet by Per G Tube route once daily 5 Active senna-docusate (Senokot-S) 8.6-50 MG tablet 1 (one) tablet by Per G Tube route once daily 5 Active tamsulosin (Flomax) 0.4 MG capsule Insert 1 (one) capsule into appropriate tube once daily At the same time every day after a meal. 5 Active simethicone (Mylicon) 80 MG chew tablet 1 (one) tablet by Per G Tube route 4 times daily after meals (chew and swallow) 5 Active sucralfate (Carafate) 1 GM/10ML suspension 10 mL by Per G Tube route 4 times daily - before meals & nightly 5 Active famotidine (Pepcid) 40 MG tablet 1 (one) tablet by Per G Tube route 2 times daily 5 Active furosemide (Lasix) 20 MG tablet 1 (one) tablet by Enteral Tube route daily at 12 PM Hold if systolic less than 100 5 Active Active Problems Problem Noted Date Diagnosed Date Pleural effusion, bilateral 04/15/2025 Abdominal pain 04/05/2025 Rectal mass 04/02/2025 Rectal adenocarcinoma 03/29/2025 CHF (congestive heart failure) 03/29/2025 QT prolongation 03/26/2025 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 03/25/2025 Heart failure with preserved ejection fraction 0 03/25/2025 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 Acute diverticulitis 03/24/2025 Gluteal abscess 03/24/2025 Encounters Date Type Department Care Team Description 5 Telephone [facility] - Colorectal Surgery [address] [phone] Itz Mahan MD Appointment 5 Orders Only [facility] - Colorectal Surgery [address] [phone] Itz Mahan MD Rectal adenocarcinoma (HCC) 5 10:30 AM CDT Office Visit [facility] - Colorectal Surgery [address] [phone] Itz Mahan MD Rectal mass (Primary Dx) 5 Orders Only [facility] - Colorectal Surgery [address] [phone] Itz Mahan MD Rectal mass 5 Travel 5 Telephone [facility] - Colorectal Surgery [address] [phone] Itz Mahan MD Appointment 5 Telephone [facility] - Colorectal Surgery [address] [place] [phone] Itz Mahan MD Appointment 5 1:39 PM CDT Anesthesia Event [facility] - Endoscopy Services [address] [place] [phone] Puneet Porter MD 5 1:00 PM CDT - 5 1:30 PM CDT Surgery [facility] [address] [place] [phone] Pohng Aviles MD ESOPHAGOGASTRODUODENOSCOPY (EGD) WITH PEG PLACEMENT 5 1:57 PM CDT - 5 4:19 PM CDT Surgery [facility] [address] [place] [phone] Itz Mahan MD LAPAROSCOPIC COLOSTOMY CREATION 5 12:26 PM CDT Anesthesia Event [facility] [address] [place] [phone] Shubham Marion MD Mattson, Kristen E, AUDIO VISUAL AIDE-FINANCIAL SALES ADVISOR 5 7:30 AM CDT - 5 8:00 AM CDT Surgery [facility] [address] [place] [address] Itz Mahan MD SIGMOIDOSCOPY FLEXIBLE DIAGNOSTIC 5 7:28 AM CDT Anesthesia Event [facility]oscopy [facility] [address] [place] [phone] Mikie Champion MD Niehoff, Laura C, AUDIO VISUAL AIDE-FINANCIAL SALES ADVISOR 5 2:30 PM CDT - 5 3:30 PM CDT Surgery [facility] - Cardiac Linux Architect [address] [place] [phone] [place] Alex MD CCL PAINT TESTER DIAGNOSTIC LANA 5 1:35 PM CDT Anesthesia Event [facility] - Cardiac Linux Architect [address] [place] [address] [place] Boo MD Gill, Nicholas William, MD 5 4:25 PM CDT - 5 8:30 PM CDT Hospital Encounter [facility] 3 Transitional Care Unit [address] [place] [address] Ana Montanez MD Volkerding, Andrea M, MD Nangle, Sarah E, DO Cyndi Cervantes, MD Bony Bauer David M, MD Hambolu, Kehinde, MD Eke-Okoro, MD Jefe Hospitalist Discharge Disposition: Half-Way Acute Care 5 Travel [address] [phone] Ana Montanez MD Hospitalization from Last 3 Months Immunizations Immunization Administration Dates Next Due TDAP, HISTORIC VACCINE 12/26/2021 Social History Tobacco Use Types Packs/Day Years [...] you are drinking? Patient does not drink 5 Q3: How often do you have si x or more drinks on one occasion? Never 03/24/2025 Overall Financial Resource Strain (CARDIA) Answe r Date Recorded How hard is it for you to pa y for the very basics like food, housing, medical care, and heating? Not hard at all 03/30/2025 [facility] Occupat ional [facility] - Occupational Stress [...] any time in the past 12 m [facility], were you homeless or living in a intermediate (including now)? No 03/30/2025 Comments Unknown Sex and Gender Information Value Date Recorded Sex Assigned at Female 03/24/2025 4:25 PM CDT Legal Sex Female 12:01 PM CDT Gender Identity Not on file Sexual Orientation Not on file Last Filed Vital Signs Vital Sign Reading Time Taken Comments Blood Pressure 104/70 05/12/2025 10:44 AM CDT Pulse 72 05/12/2025 10:44 AM CDT Temperature 36.2 C (97.2 F) 05/12/2025 10:44 AM CDT Respiratory Rate 19 04/26/2025 7:56 PM CDT Oxygen Saturation 100% 04/26/2025 7:5 6 PM CDT Inhaled Oxygen Concentration 40% 04/12/2025 10:02 AM CDT Weight 103.9 kg (229 lb) 05/12/2025 10: 44 AM CDT per patient on a stretcher Height 167.6 cm (5' 6) 03/30/2025 8:51 AM CDT Body Mass Index 36.96 03/30/2025 8:51 AM CDT Plan of Treatment Health Maintenance Due Date Last Done Comments BONE DENSITY TESTING 1950 COLOGUARD (AGES 45-75) - COL ON CA SCREENING 1950 CT COLONOGRAPHY - COLON CA SCREENING 1950 FIT - COLON CA SCREENING 1950 MAMMOGRAM 1950 MEDICARE AWV 12 MONTHS 1950 HEPATITIS C SCREENING 12/15/1968 PNEUMOCOCCAL VACCINE 50+ (1 of 2 - PCV) 1969 ZOSTER VACCINE (1 of 2) 2000 Respiratory Syncytial Virus (RSV) Vaccine Pt: or over 60 yrs (1 - Risk 60-74 years 1-dose series) 2010 DEPRESSION SCREENING 10/07/2024 COVID-19 VACCINE (1 - 2023-2 5 season) 2025 INFLUENZA VACCINE (#1) 2025 FLEX SIG - COLON CA SCREENING 04/02/2030 04/02/2025 LIPID TESTING 05/18/2030 05/18/2025 DTAP/TDAP/TD VACCINES (2 - T d or Tdap) 12/27/2031 12/26/2021 COLON MONITORING 04/02/2035 04/02/2025 COLONOSCOPY - COLON CA SCREENING 04/02/2035 04/02/20 Colorectal Cancer Screening 04/02/2035 HEPATITIS B VACCINE Aged Out No longe r eligible based on patient's age to complete this topic HIB VACCINE Aged Out No longer eligi ble based on patient's age to complete this topic HPV VACCINE Aged Out No longer eligi ble based on patient's age to complete this topic MENINGOCOCCAL (Group B) VACC INE SHARED DECISION-MAKING Aged Out No longer eligibl e based on patient's age to complete this topic MENINGOCOCCAL GROUPS A/C/Y/W VACCINE Aged Out No longer eligible b ased on patient's age to complete this topic Procedures Procedure Name Priority Date/Time Associated Diagnosis Comments CARDIAC RHYTHM STRIP ORDER 04/28/2025 4:34 PM CDT GLUCOSE - POINT OF CARE Routine 04/26/2025 6:35 PM CDT GLUCOSE - POINT OF CARE Routine 04/26/2025 1:53 PM CDT GLUCOSE - POINT OF CARE Routine 04/26/2025 9:17 AM CDT GLUCOSE - POINT OF CARE Routine 04/26/2025 6:26 AM CDT BASIC METABOLIC PANEL (CALCIUM TOTAL) Routine 04/26/2025 5:27 AM CDT CK BLOOD Routine 04/26/2025 5:27 AM CDT GLUCOSE - POINT OF CARE Routine 04/26/2025 12:25 AM CDT GLUCOSE - POINT OF CARE Routine 04/25/2025 8:41 PM CDT GLUCOSE - POINT OF CARE Routine 04/25/2025 6:22 PM CDT GLUCOSE - POINT OF CARE Routine 04/25/2025 12:34 PM CDT GLUCOSE - POINT OF CARE Routine 04/25/2025 6:29 AM CDT GLUCOSE - POINT OF CARE Routine 04/25/2025 12:34 AM CDT GLUCOSE - POINT OF CARE Routine 04/24/2025 6:19 PM CDT GLUCOSE - POINT OF CARE Routine 04/24/2025 11:56 AM CDT GLUCOSE - POINT OF CARE Routine 04/24/2025 6:26 AM CDT COMPREHENSIVE METABOLIC PANEL AM Draw 04/24/2025 2:59 AM CDT PHOSPHORUS BLOOD Routine 04/24/2025 2:59 AM CDT CBC W/O DIFFERENTIAL AM Draw 04/24/2025 2:59 AM CDT MAGNESIUM BLOOD Routine 04/24/2025 2:59 AM CDT GLUCOSE - POINT OF CARE Routine 04/24/2025 12:53 AM CDT GLUCOSE - POINT OF CARE Routine 04/23/2025 5:01 PM CDT OH EGD FLEX TRANSORAL W PLCMT GTUBE PERC 04/23/2025 1:00 PM CDT EGD WITH PEG PLACEMENT Routine 04/23/2025 12:31 PM CDT GLUCOSE - POINT OF CARE Routine 04/23/2025 11:35 AM CDT GLUCOSE - POINT OF CARE Routine 04/23/2025 11:30 AM CDT GLUCOSE - POINT OF CARE Routine 04/23/2025 9:35 AM CDT COMPREHENSIVE METABOLIC PANEL AM Draw 04/23/2025 4:23 AM CDT PHOSPHORUS BLOOD Routine 04/23/2025 4:23 AM CDT MAGNESIUM BLOOD Routine 04/23/2025 4:23 AM CDT CBC W/O DIFFERENTIAL AM Draw 04/23/2025 4:22 AM CDT GLUCOSE - POINT OF CARE Routine 04/22/2025 9:09 PM CDT GLUCOSE - POINT OF CARE Routine 04/22/2025 6:14 PM CDT CK BLOOD Routine 04/22/2025 11:46 AM CDT BASIC METABOLIC PANEL (CALCIUM TOTAL) Timed 04/22/2025 11:46 AM CDT GLUCOSE - POINT OF CARE Routine 04/22/2025 11:22 AM CDT XR CHEST 1VW PORTABLE STAT 04/22/2025 8:33 AM CDT Pleural effusion GLUCOSE - POINT OF CARE Routine 04/22/2025 8:04 AM CDT COMPREHENSIVE METABOLIC PANEL AM Draw 04/22/2025 7:16 AM CDT PHOSPHORUS BLOOD Routine 04/22/2025 7:16 AM CDT CBC W/O DIFFERENTIAL AM Draw 04/22/2025 7:16 AM CDT MAGNESIUM BLOOD Routine 04/22/2025 7:16 AM CDT GLUCOSE - POINT OF CARE Routine 04/22/2025 4:16 AM CDT GLUCOSE - POINT OF CARE Routine 04/21/2025 11:54 PM CDT GLUCOSE - POINT OF CARE Routine 04/21/2025 9:04 PM CDT GLUCOSE - POINT OF CARE Routine 04/21/2025 8:42 PM CDT GLUCOSE - POINT OF CARE Routine 04/21/2025 5:34 PM CDT PT EVAL AND TREAT Routine 04/21/2025 4:1 3 PM CDT OT EVAL AND TREAT Routine 04/21/2025 4:1 3 PM CDT GLUCOSE - POINT OF CARE Routine 04/21/2025 11:44 AM CDT GLUCOSE - POINT OF CARE Routine 04/21/2025 7:48 AM CDT GLUCOSE - POINT OF CARE Routine 04/20/2025 6:29 PM CDT GLUCOSE - POINT OF CARE Routine 04/20/2025 1:20 PM CDT GLUCOSE - POINT OF CARE Routine 04/20/2025 8:53 AM CDT COMPREHENSIVE METABOLIC PANEL AM Draw 04/20/2025 2:26 AM CDT PHOSPHORUS BLOOD Routine 04/20/2025 2:26 AM CDT CBC W/O DIFFERENTIAL AM Draw 04/20/2025 2:26 AM CDT MAGNESIUM BLOOD Routine 04/20/2025 2:26 AM CDT GLUCOSE - POINT OF CARE Routine 04/19/2025 8:42 PM CDT GLUCOSE - POINT OF CARE Routine 04/19/2025 7:45 PM CDT GLUCOSE - POINT OF CARE Routine 04/19/2025 6:27 PM CDT GLUCOSE - POINT OF CARE Routine 04/19/2025 12:43 PM CDT GLUCOSE - POINT OF CARE Routine 04/19/2025 11:09 AM CDT GLUCOSE - POINT OF CARE Routine 04/19/2025 8:43 AM CDT PT EVAL AND TREAT Routine 04/19/2025 7:1 9 AM CDT OT EVAL AND TREAT Routine 04/19/2025 7:1 9 AM CDT GLUCOSE - POINT OF CARE Routine 04/19/2025 5:56 AM CDT COMPREHENSIVE METABOLIC PANEL AM Draw 04/19/2025 4:52 AM CDT PHOSPHORUS BLOOD Routine 04/19/2025 4:52 AM CDT CBC W/O DIFFERENTIAL AM Draw 04/19/2025 4:52 AM CDT MAGNESIUM BLOOD Routine 04/19/2025 4:52 AM CDT CK BLOOD Routine 04/19/2025 4:52 AM CDT GLUCOSE - POINT OF CARE Routine 04/19/2025 3:31 AM CDT GLUCOSE - POINT OF CARE Routine 04/19/2025 1:56 AM CDT GLUCOSE - POINT OF CARE Routine 04/18/2025 11:46 PM CDT GLUCOSE - POINT OF CARE Routine 04/18/2025 10:00 PM CDT GLUCOSE - POINT OF CARE Routine 04/18/2025 9:29 PM CDT GLUCOSE - POINT OF CARE Routine 04/18/2025 7:35 PM CDT GLUCOSE - POINT OF CARE Routine 04/18/2025 6:34 PM CDT GLUCOSE - POINT OF CARE Routine 04/18/2025 2:46 PM CDT GLUCOSE - POINT OF CARE Routine 04/18/2025 1:44 PM CDT GLUCOSE - POINT OF CARE Routine 04/18/2025 11:25 AM CDT GLUCOSE - POINT OF CARE Routine 04/18/2025 9:16 AM CDT GLUCOSE - POINT OF CARE Routine 04/18/2025 8:41 AM CDT GLUCOSE - POINT OF CARE Routine 04/18/2025 5:24 AM CDT GLUCOSE - POINT OF CARE Routine 04/18/2025 4:58 AM CDT COMPREHENSIVE METABOLIC PANEL AM Draw 04/18/2025 4:21 AM CDT PHOSPHORUS BLOOD Routine 04/18/2025 4:21 AM CDT CBC W/O DIFFERENTIAL AM Draw 04/18/2025 4:21 AM CDT MAGNESIUM BLOOD Routine 04/18/2025 4:21 AM CDT GLUCOSE - POINT OF CARE Routine 04/17/2025 8:01 PM CDT GLUCOSE - POINT OF CARE Routine 04/17/2025 6:19 PM CDT GLUCOSE - POINT OF CARE Routine 04/17/2025 3:26 PM CDT GLUCOSE - POINT OF CARE Routine 04/17/2025 1:09 PM CDT GLUCOSE - POINT OF CARE Routine 04/17/2025 9:20 AM CDT COMPREHENSIVE METABOLIC PANEL AM Draw 04/17/2025 8:09 AM CDT PHOSPHORUS BLOOD Routine 04/17/2025 8:09 AM CDT MAGNESIUM BLOOD Routine 04/17/2025 8:09 AM CDT CBC W/O DIFFERENTIAL AM Draw 04/17/2025 8:08 AM CDT GLUCOSE - POINT OF CARE Routine 04/16/2025 9:27 PM CDT GLUCOSE - POINT OF CARE Routine 04/16/2025 5:57 PM CDT GLUCOSE - POINT OF CARE Routine 04/16/2025 4:54 PM CDT FL SWALLOWING FUNCTION STUDY Routine 04/16/2025 1:50 PM CDT Rectal mass Pleural effusion, bilateral Oropharyngeal dysphagia GLUCOSE - POINT OF CARE Routine 04/16/2025 11:33 AM CDT US ABDOMEN LIMITED Routine 04/16/2025 9: 15 AM CDT Elevated alkaline phosphatase level GLUCOSE - POINT OF CARE Routine 04/16/2025 8:09 AM CDT GLUCOSE - POINT OF CARE Routine 04/16/2025 6:32 AM CDT COMPREHENSIVE METABOLIC PANEL AM Draw 04/16/2025 4:26 AM CDT PHOSPHORUS BLOOD Routine 04/16/2025 4:26 AM CDT CBC W/O DIFFERENTIAL AM Draw 04/16/2025 4:26 AM CDT MAGNESIUM BLOOD Routine 04/16/2025 4:26 AM CDT GLUCOSE - POINT OF CARE Routine 04/15/2025 8:39 PM CDT GLUCOSE - POINT OF CARE Routine 04/15/2025 4:39 PM CDT GLUCOSE - POINT OF CARE Routine 04/15/2025 11:55 AM CDT XR CHEST 1VW PORTABLE Routine 04/15/2025 9:25 AM CDT Pleural effusion GLUCOSE - POINT OF CARE Routine 04/15/2025 8:50 AM CDT GLUCOSE - POINT OF CARE Routine 04/15/2025 8:06 AM CDT COMPREHENSIVE METABOLIC PANEL AM Draw 04/15/2025 2:59 AM CDT PHOSPHORUS BLOOD Routine 04/15/2025 2:59 AM CDT CBC W/O DIFFERENTIAL AM Draw 04/15/2025 2:59 AM CDT MAGNESIUM BLOOD Routine 04/15/2025 2:59 AM CDT CK BLOOD Routine 04/15/2025 2:59 AM CDT GLUCOSE - POINT OF CARE Routine 04/14/2025 8:50 PM CDT GLUCOSE - POINT OF CARE Routine 04/14/2025 5:44 PM CDT GLUCOSE - POINT OF CARE Routine 04/14/2025 12:18 PM CDT BASIC METABOLIC PANEL (CALCIUM TOTAL) Routine 04/14/2025 10:31 AM CDT GLUCOSE - POINT OF CARE Routine 04/14/2025 8:46 AM CDT PHOSPHORUS BLOOD Routine 04/14/2025 6:56 AM CDT CBC W/O DIFFERENTIAL AM Draw 04/14/2025 6:56 AM CDT MAGNESIUM BLOOD Routine 04/14/2025 6:56 AM CDT GLUCOSE - POINT OF CARE Routine 04/13/2025 8:41 PM CDT GLUCOSE - POINT OF CARE Routine 04/13/2025 4:52 PM CDT BASIC METABOLIC PANEL (CALCIUM TOTAL) STAT 04/13/2025 3:55 PM CDT CBC W/O DIFFERENTIAL STAT 04/13/2025 3:11 PM CDT PHOSPHORUS BLOOD STAT 04/13/2025 3:11 PM CDT MAGNESIUM BLOOD STAT 04/13/2025 3:11 PM CDT GLUCOSE - POINT OF CARE Routine 04/13/2025 2:50 PM CDT TRANSFUSE RED BLOOD CELL LEUKOREDUCED UNIT(S) Routine 04/13/2025 2:05 PM CDT GLUCOSE - POINT OF CARE Routine 04/13/2025 1:40 PM CDT ENDOTRACHEAL TUBE NOTE Routine 04/13/2025 1:22 PM CDT OH LAPS CLST/SKN LVL CECOSTOMY 04/13/2025 12:11 PM CDT Diagnosis unknown Special Needs ### 004 ### GLUCOSE - POINT OF CARE Routine 04/13/2025 11:24 AM CDT GLUCOSE - POINT OF CARE Routine 04/13/2025 7:43 AM CDT PREPARE RBC LEUKOREDUCED UNIT STAT 04/13/2025 6:50 AM CDT Rectal mass TYPE + SCREEN PANEL Routine 04/13/2025 6 :50 AM CDT PHOSPHORUS BLOOD Routine 04/13/2025 6:50 AM CDT COMPREHENSIVE METABOLIC PANEL AM Draw 04/13/2025 6:50 AM CDT MAGNESIUM BLOOD Routine 04/13/2025 6:50 AM CDT BLOOD TYPE VERIFICATION Routine 04/13/2025 6:07 AM CDT CBC W/O DIFFERENTIAL AM Draw 04/13/2025 5:26 AM CDT GLUCOSE - POINT OF CARE Routine 04/12/2025 7:57 PM CDT PHOSPHORUS BLOOD Timed 04/12/2025 7:12 PM CDT MAGNESIUM BLOOD Timed 04/12/2025 7:12 PM CDT BASIC METABOLIC PANEL (CALCIUM TOTAL) Timed 04/12/2025 7:12 PM CDT GLUCOSE - POINT OF CARE Routine 04/12/2025 6:52 PM CDT XR CHEST 1VW PORTABLE STAT 04/12/2025 4:28 PM CDT Pleural effusion GLUCOSE - POINT OF CARE Routine 04/12/2025 1:45 PM CDT CULTURE ANAEROBE Routine 04/12/2025 1:17 PM CDT CULTURE FUNGUS OTHER+FUNGUS SMEAR Routine 04/12/2025 1:17 PM CDT CULTURE FLUID+GRAM STAIN Routine 04/12/2025 1:17 PM CDT DIFFERENTIAL MANUAL FLUID Routine 04/12/2025 1:16 PM CDT CHOLESTEROL BODY FLUID Routine 04/12/2025 1:16 PM CDT TRIGLYCERIDES BODY FLUID Routine 04/12/2025 1:16 PM CDT LDH BODY FLUID Routine 04/12/2025 1:16 PM CDT PROTEIN BODY FLUID Routine 04/12/2025 1: 16 PM CDT GLUCOSE BODY FLUID Routine 04/12/2025 1: 16 PM CDT CELL COUNT W DIFFERENTIAL FLUID Routine 04/12/2025 1:16 PM CDT GLUCOSE - POINT OF CARE Routine 04/12/2025 12:05 PM CDT CYTOLOGY NON-ASSOCIATE DEAN OF WOMEN PANEL (STL) Routine 04/12/2025 11:01 AM CDT Pleural effusion TROPONIN-I HIGH SENSITIVE STAT 04/12/2025 9:52 AM CDT B-TYPE NATRIURETIC PEPTIDE STAT 04/12/2025 9:52 AM CDT XR CHEST 1VW PORTABLE STAT 04/12/2025 9:46 AM CDT Acute on chronic heart failure with preserved ejection fraction (HCC) EKG 12-LEAD STAT 04/12/2025 9:33 AM CDT Acute on chronic heart failure with preserved ejection fraction (HCC) BLOOD GASES ARTERIAL Timed 04/12/2025 9:25 AM CDT GLUCOSE - POINT OF CARE Routine 04/12/2025 7:48 AM CDT LDH BLOOD Add on 04/12/2025 5:13 AM CDT PHOSPHORUS BLOOD Routine 04/12/2025 5:13 AM CDT COMPREHENSIVE METABOLIC PANEL AM Draw 04/12/2025 5:13 AM CDT CBC W/O DIFFERENTIAL AM Draw 04/12/2025 5:13 AM CDT MAGNESIUM BLOOD Routine 04/12/2025 5:13 AM CDT CK BLOOD Routine 04/12/2025 5:13 AM CDT GLUCOSE - POINT OF CARE Routine 04/12/2025 12:56 AM CDT GLUCOSE - POINT OF CARE Routine 04/11/2025 5:19 PM CDT GLUCOSE - POINT OF CARE Routine 04/11/2025 11:49 AM CDT GLUCOSE - POINT OF CARE Routine 04/11/2025 7:59 AM CDT COMPREHENSIVE METABOLIC PANEL AM Draw 04/11/2025 4:31 AM CDT CBC W/O DIFFERENTIAL AM Draw 04/11/2025 4:31 AM CDT MAGNESIUM BLOOD Routine 04/11/2025 4:31 AM CDT GLUCOSE - POINT OF CARE Routine 04/10/2025 9:03 PM CDT GLUCOSE - POINT OF CARE Routine 04/10/2025 4:32 PM CDT GLUCOSE - POINT OF CARE Routine 04/10/2025 12:07 PM CDT COMPREHENSIVE METABOLIC PANEL AM Draw 04/10/2025 7:38 AM CDT GLUCOSE - POINT OF CARE Routine 04/10/2025 7:37 AM CDT CBC W/O DIFFERENTIAL AM Draw 04/10/2025 5:26 AM CDT MAGNESIUM BLOOD Routine 04/10/2025 5:26 AM CDT GLUCOSE - POINT OF CARE Routine 04/09/2025 5:16 PM CDT GLUCOSE - POINT OF CARE Routine 04/09/2025 11:58 AM CDT GLUCOSE - POINT OF CARE Routine 04/09/2025 9:22 AM CDT TRIGLYCERIDES BLOOD Routine 04/09/2025 7 :03 AM CDT RENAL FUNCTION PANEL AM Draw 04/09/2025 7:03 AM CDT CBC W/O DIFFERENTIAL AM Draw 04/09/2025 7:03 AM CDT MAGNESIUM BLOOD Routine 04/09/2025 7:03 AM CDT GLUCOSE - POINT OF CARE Routine 04/08/2025 8:09 PM CDT GLUCOSE - POINT OF CARE Routine 04/08/2025 5:27 PM CDT GLUCOSE - POINT OF CARE Routine 04/08/2025 12:09 PM CDT GLUCOSE - POINT OF CARE Routine 04/08/2025 8:35 AM CDT POTASSIUM BLOOD Timed 04/08/2025 6:45 AM CDT PROTEIN TOTAL BLOOD AM Draw 04/08/2025 2 :53 AM CDT BILIRUBIN TOTAL+DIRECT BLOOD PANEL AM Draw 04/08/2025 2:53 AM CDT AST BLOOD AM Draw 04/08/2025 2:53 AM CDT ALT AM Draw 04/08/2025 2:53 AM CDT ALKALINE PHOSPHATASE BLOOD AM Draw 04/08/2025 2:53 AM CDT RENAL FUNCTION PANEL AM Draw 04/08/2025 2:53 AM CDT CBC W/O DIFFERENTIAL AM Draw 04/08/2025 2:53 AM CDT MAGNESIUM BLOOD Routine 04/08/2025 2:53 AM CDT CK BLOOD Routine 04/08/2025 2:53 AM CDT GLUCOSE - POINT OF CARE Routine 04/07/2025 9:14 PM CDT GLUCOSE - POINT OF CARE Routine 04/07/2025 5:51 PM CDT RENAL FUNCTION PANEL STAT 04/07/2025 5:36 PM CDT DIFFERENTIAL MANUAL STAT 04/07/2025 3 :50 PM CDT CBC W AUTO DIFFERENTIAL STAT 04/07/2025 3:50 PM CDT GLUCOSE - POINT OF CARE Routine 04/07/2025 1:07 PM CDT GLUCOSE - POINT OF CARE Routine 04/07/2025 8:24 AM CDT RENAL FUNCTION PANEL AM Draw 04/07/2025 2:54 AM CDT CBC W/O DIFFERENTIAL AM Draw 04/07/2025 2:54 AM CDT MAGNESIUM BLOOD Routine 04/07/2025 2:54 AM CDT GLUCOSE - POINT OF CARE Routine 04/06/2025 9:27 PM CDT GLUCOSE - POINT OF CARE Routine 04/06/2025 6:23 PM CDT GLUCOSE - POINT OF CARE Routine 04/06/2025 12:37 PM CDT GLUCOSE - POINT OF CARE Routine 04/06/2025 9:53 AM CDT CBC W/O DIFFERENTIAL AM Draw 04/06/2025 9:44 AM CDT MAGNESIUM BLOOD Routine 04/06/2025 9:44 AM CDT RENAL FUNCTION PANEL STAT 04/06/2025 9:06 AM CDT GLUCOSE - POINT OF CARE Routine 04/05/2025 10:10 PM CDT GLUCOSE - POINT OF CARE Routine 04/05/2025 9:50 PM CDT XR ABDOMEN KUB STAT 04/05/2025 8:15 PM CDT Epigastric pain GLUCOSE - POINT OF CARE Routine 04/05/2025 5:59 PM CDT GLUCOSE - POINT OF CARE Routine 04/05/2025 1:01 PM CDT GLUCOSE - POINT OF CARE Routine 04/05/2025 8:31 AM CDT BASIC METABOLIC PANEL (CALCIUM TOTAL) Timed 04/05/2025 3:49 AM CDT CK BLOOD Routine 04/05/2025 12:41 AM CDT PHOSPHORUS BLOOD Routine 04/05/2025 12:4 1 AM CDT MAGNESIUM BLOOD Routine 04/05/2025 12:41 AM CDT GLUCOSE - POINT OF CARE Routine 04/04/2025 10:13 PM CDT GLUCOSE - POINT OF CARE Routine 04/04/2025 3:53 PM CDT GLUCOSE - POINT OF CARE Routine 04/04/2025 12:12 PM CDT GLUCOSE - POINT OF CARE Routine 04/04/2025 8:31 AM CDT BASIC METABOLIC PANEL (CALCIUM TOTAL) AM Draw 04/04/2025 3:04 AM CDT PHOSPHORUS BLOOD Routine 04/04/2025 3:04 AM CDT MAGNESIUM BLOOD Routine 04/04/2025 3:04 AM CDT GLUCOSE - POINT OF CARE Routine 04/03/2025 9:50 PM CDT GLUCOSE - POINT OF CARE Routine 04/03/2025 5:26 PM CDT GLUCOSE - POINT OF CARE Routine 04/03/2025 12:31 PM CDT BASIC METABOLIC PANEL (CALCIUM TOTAL) Timed 04/03/2025 9:37 AM CDT SLIDE SCAN HEMATOLOGY AM Draw 04/03/2025 3:27 AM CDT CBC W AUTO DIFFERENTIAL AM Draw 04/03/2025 3:27 AM CDT PHOSPHORUS BLOOD Routine 04/03/2025 3:27 AM CDT MAGNESIUM BLOOD Routine 04/03/2025 3:27 AM CDT GLUCOSE - POINT OF CARE Routine 04/03/2025 1:13 AM CDT GLUCOSE - POINT OF CARE Routine 04/02/2025 9:40 PM CDT GLUCOSE - POINT OF CARE Routine 04/02/2025 6:18 PM CDT GLUCOSE - POINT OF CARE Routine 04/02/2025 1:02 PM CDT BASIC METABOLIC PANEL (CALCIUM TOTAL) AM Draw 04/02/2025 11:38 AM CDT PATHOLOGY TISSUE EXAM (STL) Routine 04/02/2025 7:36 AM CDT Abnormal finding on GI tract imaging OH COLONOSCOPY W/SUBMUCOSAL INJ 04/02/2025 7:30 AM CDT Abnormal finding on GI tract imaging OH SIGMOIDOSCOPY,BIOPSY 04/02/2025 7:30 AM CDT Abnormal finding on GI tract imaging OH SIGMOIDOSCOPY,DIAGNOS TIC 04/02/2025 7:30 AM CDT Abnormal finding on GI tract imaging GLUCOSE - POINT OF CARE Routine 04/02/2025 7:06 AM CDT ENDOSCOPY, SIGMOID Routine 04/02/2025 6: 39 AM CDT CBC W/O DIFFERENTIAL AM Draw 04/02/2025 4:20 AM CDT PHOSPHORUS BLOOD Routine 04/02/2025 3:38 AM CDT MAGNESIUM BLOOD Routine 04/02/2025 3:38 AM CDT GLUCOSE - POINT OF CARE Routine 04/01/2025 8:18 PM CDT GLUCOSE - POINT OF CARE Routine 04/01/2025 5:26 PM CDT IR FISTULA OR SINUS TRACT STUDY Routine 04/01/2025 4:29 PM CDT Diverticulitis of intestine with abscess, unspecified bleeding status, unspecified part of intestinal tract GLUCOSE - POINT OF CARE Routine 04/01/2025 11:56 AM CDT XR CHEST POST PROCEDURE STAT 04/01/2025 10:56 AM CDT S/P PICC central line placement GLUCOSE - POINT OF CARE Routine 04/01/2025 10:20 AM CDT CBC W/O DIFFERENTIAL AM Draw 04/01/2025 4:25 AM CDT BASIC METABOLIC PANEL (CALCIUM TOTAL) AM Draw 04/01/2025 4:25 AM CDT CK BLOOD Routine 04/01/2025 4:25 AM CDT PHOSPHORUS BLOOD Routine 04/01/2025 4:25 AM CDT MAGNESIUM BLOOD Routine 04/01/2025 4:25 AM CDT GLUCOSE - POINT OF CARE Routine 03/31/2025 8:21 PM CDT GLUCOSE - POINT OF CARE Routine 03/31/2025 6:00 PM CDT GLUCOSE - POINT OF CARE Routine 03/31/2025 12:06 PM CDT PHOSPHORUS BLOOD Routine 03/31/2025 5:23 AM CDT MAGNESIUM BLOOD Routine 03/31/2025 5:23 AM CDT COMPREHENSIVE METABOLIC PANEL AM Draw 03/31/2025 5:23 AM CDT CBC W AUTO DIFFERENTIAL AM Draw 03/31/2025 5:23 AM CDT MRI PELVIS WWO CONTRAST Routine 03/31/2025 3:26 AM CDT Diverticulitis of intestine with abscess, unspecified bleeding status, unspecified part of intestinal tract GLUCOSE - POINT OF CARE Routine 03/30/2025 9:20 PM CDT GLUCOSE - POINT OF CARE Routine 03/30/2025 8:57 PM CDT GLUCOSE - POINT OF CARE Routine 03/30/2025 5:[address] CHEST W CONTRAST Routine 03/30/2025 4 :15 PM CDT Diverticulitis of intestine with abscess, unspecified bleeding status, unspecified part of intestinal tract GLUCOSE - POINT OF CARE Routine 03/30/2025 12:32 PM CDT GLUCOSE - POINT OF CARE Routine 03/30/2025 8:22 AM CDT SLIDE SCAN HEMATOLOGY AM Draw 03/30/2025 6:59 AM CDT PHOSPHORUS BLOOD Routine 03/30/2025 6:59 AM CDT MAGNESIUM BLOOD Routine 03/30/2025 6:59 AM CDT COMPREHENSIVE METABOLIC PANEL AM Draw 03/30/2025 6:59 AM CDT CBC W AUTO DIFFERENTIAL AM Draw 03/30/2025 6:59 AM CDT GLUCOSE - POINT OF CARE Routine 03/29/2025 6:15 PM CDT ECHO LANA COMPLETE W BUBBLE STUDY Routine 03/29/2025 2:27 PM CDT Bacteremia Fungemia CCL PAINT TESTER DIAGNOSTIC LANA Routine 03/29/2025 2:00 PM CDT GLUCOSE - POINT OF CARE Routine 03/29/2025 11:18 AM CDT GLUCOSE - POINT OF CARE Routine 03/29/2025 8:43 AM CDT SLIDE SCAN HEMATOLOGY AM Draw 03/29/2025 4:30 AM CDT CK BLOOD Routine 03/29/2025 4:30 AM CDT PHOSPHORUS BLOOD Routine 03/29/2025 4:30 AM CDT MAGNESIUM BLOOD Routine 03/29/2025 4:30 AM CDT COMPREHENSIVE METABOLIC PANEL AM Draw 03/29/2025 4:30 AM CDT CBC W AUTO DIFFERENTIAL AM Draw 03/29/2025 4:30 AM CDT GLUCOSE - POINT OF CARE Routine 03/28/2025 7:38 PM CDT GLUCOSE - POINT OF CARE Routine 03/28/2025 4:37 PM CDT PHOSPHORUS BLOOD Timed 03/28/2025 3:04 PM CDT MAGNESIUM BLOOD Timed 03/28/2025 3:04 PM CDT BASIC METABOLIC PANEL (CALCIUM TOTAL) Timed 03/28/2025 3:04 PM CDT GLUCOSE - POINT OF CARE Routine 03/28/2025 12:16 PM CDT GLUCOSE - POINT OF CARE Routine 03/28/2025 7:29 AM CDT PHOSPHORUS BLOOD Routine 03/28/2025 5:25 AM CDT MAGNESIUM BLOOD Routine 03/28/2025 5:25 AM CDT COMPREHENSIVE METABOLIC PANEL AM Draw 03/28/2025 5:25 AM CDT OCCULT BLOOD FECES Routine 03/28/2025 5: 13 AM CDT SLIDE SCAN HEMATOLOGY AM Draw 03/28/2025 5:10 AM CDT CBC W AUTO DIFFERENTIAL AM Draw 03/28/2025 5:10 AM CDT GLUCOSE - POINT OF CARE Routine 03/27/2025 9:06 PM CDT GLUCOSE - POINT OF CARE Routine 03/27/2025 4:19 PM CDT GLUCOSE - POINT OF CARE Routine 03/27/2025 11:50 AM CDT GLUCOSE - POINT OF CARE Routine 03/27/2025 8:54 AM CDT DIFFERENTIAL MANUAL AM Draw 03/27/2025 4 :33 AM CDT PHOSPHORUS BLOOD Routine 03/27/2025 4:33 AM CDT MAGNESIUM BLOOD Routine 03/27/2025 4:33 AM CDT COMPREHENSIVE METABOLIC PANEL AM Draw 03/27/2025 4:33 AM CDT CBC W AUTO DIFFERENTIAL AM Draw 03/27/2025 4:33 AM CDT GLUCOSE - POINT OF CARE Routine 03/26/2025 9:14 PM CDT GLUCOSE - POINT OF CARE Routine 03/26/2025 5:12 PM CDT CK BLOOD Routine 03/26/2025 4:30 PM CDT CULTURE BLOOD Timed 03/26/2025 12:26 PM CDT CULTURE BLOOD Timed 03/26/2025 12:20 PM CDT GLUCOSE - POINT OF CARE Routine 03/26/2025 11:12 AM CDT PT EVAL AND TREAT Routine 03/26/2025 8:4 2 AM CDT OT EVAL AND TREAT Routine 03/26/2025 8:4 2 AM CDT GLUCOSE - POINT OF CARE Routine 03/26/2025 8:35 AM CDT SLIDE SCAN HEMATOLOGY AM Draw 03/26/2025 3:33 AM CDT CANCER ANTIGEN (CA) 19-9 AM Draw 03/26/2025 3:33 AM CDT CEA BLOOD AM Draw 03/26/2025 3:33 AM CDT IRON + TRANSFERRIN PANEL Routine 03/26/2025 3:33 AM CDT FOLATE Routine 03/26/2025 3:33 AM CDT VITAMIN B12 AM Draw 03/26/2025 3:33 AM CDT PHOSPHORUS BLOOD Routine 03/26/2025 3:33 AM CDT MAGNESIUM BLOOD Routine 03/26/2025 3:33 AM CDT COMPREHENSIVE METABOLIC PANEL AM Draw 03/26/2025 3:33 AM CDT CBC W AUTO DIFFERENTIAL AM Draw 03/26/2025 3:33 AM CDT TSH REFLEX FREE T4 Routine 03/26/2025 3: 33 AM CDT GLUCOSE - POINT OF CARE Routine 03/25/2025 4:29 PM CDT PHOSPHORUS BLOOD Routine 03/25/2025 2:20 PM CDT MAGNESIUM BLOOD Routine 03/25/2025 2:20 PM CDT CBC W AUTO DIFFERENTIAL Routine 03/25/2025 2:20 PM CDT COMPREHENSIVE METABOLIC PANEL Routine 03/25/2025 2:20 PM CDT ECHO COMPLETE W CONTRAST Routine 03/25/2025 1:30 PM CDT Acute on chronic heart failure with preserved ejection fraction (HCC) VANCOMYCIN LEVEL TROUGH STAT 03/25/2025 11:[address] ABDOMEN PELVIS W CONTRAST STAT 03/25/2025 10:24 AM CDT Diverticulitis of intestine with abscess, unspecified bleeding status, unspecified part of intestinal tract Colocutaneous fistula GLUCOSE - POINT OF CARE Routine 03/25/2025 9:05 AM CDT VANCOMYCIN LEVEL PEAK STAT 03/25/2025 4:03 AM CDT HEMOGLOBIN A1C Routine 03/25/2025 4:03 AM CDT CBC W/O DIFFERENTIAL Routine 03/25/2025 4:03 AM CDT COMPREHENSIVE METABOLIC PANEL Routine 03/25/2025 4:03 AM CDT MAGNESIUM BLOOD Routine 03/25/2025 4:03 AM CDT PHOSPHORUS BLOOD Routine 03/25/2025 4:03 AM CDT EKG 12-LEAD Routine 03/25/2025 12:16 AM CDT Atrial fibrillation, unspecified type (HCC) URINALYSIS REFLEX TO MICROSCOPIC NO CULTURE Routine 03/24/2025 10:04 PM CDT GLUCOSE - POINT OF CARE Routine 03/24/2025 9:31 PM CDT XR CHEST 1VW PORTABLE Routine 03/24/2025 8:10 PM CDT Diverticulitis of intestine with abscess, unspecified bleeding status, unspecified part of intestinal tract Colocutaneous fistula PT EVAL AND TREAT Routine 03/24/2025 7:5 2 PM CDT OT EVAL AND TREAT Routine 03/24/2025 7:5 2 PM CDT GLUCOSE - POINT OF CARE Routine 03/24/2025 6:27 PM CDT SUSCEPTIBILITY FUNGUS/YEAST Routine 03/24/2025 6:21 PM CDT BCID PANEL Routine 03/24/2025 6:21 PM CDT CULTURE BLOOD STAT 03/24/2025 6:21 PM CDT DIFFERENTIAL MANUAL STAT 03/24/2025 5 :44 PM CDT COMPREHENSIVE METABOLIC PANEL STAT 03/24/2025 5:44 PM CDT CBC W AUTO DIFFERENTIAL STAT 03/24/2025 5:44 PM CDT LACTIC ACID BLOOD STAT 03/24/2025 5:4 4 PM CDT CULTURE BLOOD STAT 03/24/2025 5:44 PM CDT OH REPR CMPL WND TRUNK 1.1-2.5CM Diagnosis unknown Special Needs ### 004 ### ERAS OH LAPS CLST/SKN LVL CECOSTOMY Diagnosis unknown Special Needs ### 004 ### ERAS from Last 3 Months Results * CARDIAC RHYTHM STRIP ORDER (04/28/2025 4:34 PM CDT) Narrative 04/28/2025 4:34 PM CDT Ordered by an unspecified provider. us Scanned Document CARDIAC SERVICES ORDERABLES Case carmen Result - Final * (ABNORMAL) GLUCOSE - POINT OF CARE (04/26/2025 6:35 PM CDT) Only the most recent of155 resultswithin the time period is included. Glucose WB/POC 285(H) 70 - 99 mg/dL 04/26/2025 6:49 PM CDT [facility] Specimen Type Arterial/C apillary 04/26/2025 6:49 PM CDT [facility] Blood BLOOD SPECIMEN / Unknown 04/26/2025 6:35 PM CDT 04/26/2025 6:49 PM CDT Sugar Schwartz DO LAB - POINT OF CARE ORDERABLES Final Result [facility] [address] [place] [address] * (ABNORMAL) BASIC METABOLIC PANEL (CALCIUM TOTAL) (04/26/2025 5:27 AM CDT) Only the most recent of11 resultswithin the time period is included. [facility] Glucose 85 70 - 99 mg/dL 04/26/2025 8:01 AM [facility] Sodium 142 136 - 145 mmol/L 04/26/2025 8:01 AM [facility] Potassium 3.0(L) 3.5 - 5.1 mmol/L 04/26/2025 8:01 AM [facility] Chloride 105 98 - 107 mmol/L 04/26/2025 8:01 AM [facility] CO2 30(H) 22 - 29 mmol/L 04/26/2025 8:01 AM [facility] Calcium 7.6(L) 8.4 - 10.4 mg/dL 04/26/2025 8:01 AM [facility] Anion Gap 7 6 - 16 mmol/L 04/26/2025 8:01 AM [facility] BUN 11 7 - 26 mg/dL 04/26/2025 8:01 AM [facility] Creatinine 0.47(L) 0.57 - 1.11 mg/dL 04/26/2025 8:01 AM [facility] eGFR by CKD-EPI >90 >=90 mL/min/1.7 3 m2 04/26/2025 8:01 AM [facility] Comment:Estimated Glomerular Filtration Rate (eGFR) calculated using the CKD-EPI Creatinine Equation (2020), per the [employer] and [place] [employer] recommendations. Blood BLOOD SPECIMEN / Unknown Lab Venipuncture / Unknown 04/26/2025 5:27 AM CDT 04/26/2025 6:25 AM CDT Martinez Alex MD LAB - CHEMISTRY ORDERABLES Fin al Result Performing Organization Address City/[facility]/ZIP Co de Phone Number [facility] [address] [place] [phone] * (ABNORMAL) CK BLOOD (04/26/2025 5:27 AM CDT) Only the most recent of10 resultswithin the time period is included. Pathologist [facility] CK 15(L) 29 - 168 U/L 04/26/2025 6:53 AM CDT [facility] Blood BLOOD SPECIMEN / Unknown Lab Venipuncture / Unknown 04/26/2025 5:27 AM CDT 04/26/2025 6:25 AM CDT Kimberly Araiza MD LAB - CHEMISTRY ORDERABLES Final Result Performing Organization Address [facility] Co de Phone Number [facility] [address] [place] [phone] * (ABNORMAL) CBC W/O DIFFERENTIAL (04/24/2025 2:59 AM CDT) Only the most recent of22 resultswithin the time period is included. [facility] WBC 11.1(H) 4.0 - 10.7 x10E9/L 04/24/2025 3:39 AM CDT [facility] RBC Count 3.82(L) 3.90 - 5.20 x10E12/L 04/24/2025 3:39 AM CDT [facility] Hemoglobin 11.3(L) 11.9 - 15.8 g/dL 04/24/2025 3:39 AM CDT [facility] Hematocrit 36.6 34.8 - 46.1 % 04/24/2025 3:39 AM CDT [facility] MCV 95.8 80.0 - 98.0 fL 04/24/2025 3:39 AM CDT [facility] MCH 29.6 26.7 - 33.6 pg 04/24/2025 3:39 AM CDT [facility] MCHC 30.9(L) 31.7 - 36.3 g/dL 04/24/2025 3:39 AM CDT [facility] RDW-CV 17.7(H) 11.3 - 14.8 % 04/24/2025 3:39 AM CDT [facility] Platelet Count 336 150 - 420 x10E9/L 04/24/2025 3:39 AM CDT [facility] MPV 10.8 7.8 - 11.4 fL 04/24/2025 3:39 AM CDT [facility] NRBC 0.2(H) <=0.0 /100 WBC 04/24/2025 3:39 AM CDT [facility] Blood BLOOD SPECIMEN / Unknown Lab Venipuncture / Unknown 04/24/2025 2:59 AM CDT 04/24/2025 3:32 AM CDT us Aminata Cervantes MD LAB - HEMATOLO GY ORDERABLES Final Result [facility] [address] [place] [address] * (ABNORMAL) COMPREHENSIVE METABOLIC PANEL (04/24/2025 2:59 AM CDT) Only the most recent of22 resultswithin the time period is included. Glucose 83 70 - 99 mg/dL 04/24/2025 4:03 AM [facility] Sodium 140 136 - 145 mmol/L 04/24/2025 4:03 AM [facility] Potassium 3.7 3.5 - 5.1 mmol/L 04/24/2025 4:03 AM [facility] Chloride 107 98 - 107 mmol/L 04/24/2025 4:03 AM [facility] CO2 23 22 - 29 mmol/L 04/24/2025 4:03 AM [facility] Calcium 7.7(L) 8.4 - 10.4 mg/dL 04/24/2025 4:03 AM [facility] Anion Gap 10 6 - 16 mmol/L 04/24/2025 4:03 AM [facility] BUN 13 7 - 26 mg/dL 04/24/2025 4:03 AM [facility] Creatinine 0.45(L) 0.57 - 1.11 mg/dL 04/24/2025 4:03 AM CDT [facility] Alkaline Phosphatase 197(H) 40 - 150 U/L 04/24/2025 4:03 AM CDT [facility] ALT <6(L) 6 - 57 U/L 04/24/2025 4:03 AM CDT [facility] AST 27 10 - 48 U/L 04/24/2025 4:03 AM CDT [facility] Protein Total 5.3(L) 6.4 - 8.3 gm/dL 04/24/2025 4:03 AM CDT [facility] Albumin 1.4(L) 3.1 - 4.5 gm/dL 04/24/2025 4:03 AM CDT [facility] Bilirubin Total 0.4 0.2 - 1.2 mg/dL 04/24/2025 4:03 AM CDT [facility] eGFR by CKD-EPI >90 >=90 mL/min/1.7 3 m2 04/24/2025 4:03 AM CDT [facility] Comment:Estimated Glomerular Filtration Rate (eGFR) calculated using the CKD-EPI Creatinine Equation (2020), per the [employer] and [place] [employer] recommendations. Blood BLOOD SPECIMEN / Unknown Lab Venipuncture / Unknown 04/24/2025 2:59 AM CDT 04/24/2025 3:31 AM CDT us Jefe Aguila MD LAB - CHEMISTRY ORDERABLE S Final Result [facility] [address] [place], [place] [id number] * PHOSPHORUS BLOOD (04/24/2025 2:59 AM CDT) Only the most recent of28 resultswithin the time period is included. Phosphorus 2.6 2.5 - 4.5 mg/dL 04/24/2025 3:58 AM CDT [facility] Blood BLOOD SPECIMEN / Unknown Lab Venipuncture / Unknown 04/24/2025 2:59 AM CDT 04/24/2025 3:31 AM CDT us Ana Montanez MD LAB - CHEMISTRY ORDERABLE S Final Result Performing Organization Address City/[facility] Co de Phone Number [facility] [address] [place] [phone] * MAGNESIUM BLOOD (04/24/2025 2:59 AM CDT) Only the most recent of34 resultswithin the time period is included. Magnesium 2.1 1.6 - 2.6 mg/dL 04/24/2025 3:58 AM CDT [facility] Blood BLOOD SPECIMEN / Unknown Lab Venipuncture / Unknown 04/24/2025 2:59 AM CDT 04/24/2025 3:31 AM CDT us Aminata Cervantes MD LAB - CHEMISTR Y ORDERABLES Final Result Performing Organization Address City/[facility] Co de Phone Number [facility] [address] [place] [phone] * EGD WITH PEG PLACEMENT (04/23/2025 12:31 PM CDT) Report Endoscopy POC _ Patient Name: Bharti Neal Procedure Date: 04/23/2025 12:31 PM Date of : 1950 Admit Type: Inpatient Age: 74 Gender: Female Ethnicity: Not or Race: White Attending MD: Phong Aviles MD, [id number] _ Procedure: Upper GI endoscopy Indications: Place PEG due to dysphagia Providers: Phong Aviles MD (Doctor), Fredi Machuca RN, Ivy Casas RN Referring MD: Lexy George (Referring MD) Medicines: Monitored Anesthesia Care Complications: No immediate complications. _ Estimated Blood Loss: Estimated blood loss: none. Procedure: Pre-Anesthesia Assessment: - Prior to the procedure, a History and Physical was performed, and patient medications and allergies were reviewed. The patient's tolerance of previous anesthesia was also reviewed. The risks and benefits of the procedure and the sedation options and risks were discussed with the patient. All questions were answered, and informed consent was obtained. Prior Anticoagulants: The patient has taken no anticoagulant or antiplatelet agents. ASA Grade Assessment: IV - A patient with severe systemic disease that is a constant threat to life. After reviewing the risks and benefits, the patient was deemed in satisfactory condition to undergo the procedure. After obtaining informed consent, the endoscope was passed under direct vision. Throughout the procedure, the patient's blood pressure, pulse, and oxygen saturations were monitored continuously. The Endoscope was introduced through the mouth, and advanced to the second part of duodenum. Moderate sedation was administered for [ ' minutes The upper GI endoscopy was accomplished without difficulty. The patient tolerated the procedure well. Impression: - Normal esophagus. - Normal gastric body. - Normal duodenal bulb, first portion of the duodenum and second portion of the duodenum. - An endoscopically removable PEG placement was successfully completed. - No specimens collected. Moderate Sedation: Moderate (conscious) sedation was personally administered by an anesthesia professional. The following parameters were monitored: oxygen saturation, heart rate, blood pressure, respiratory rate, EKG, adequacy of pulmonary ventilation, and response to care. Findings: The examined esophagus was normal. The gastric body was normal. Placement of an endoscopically removable PEG with no T-fasteners was successfully completed. The external bumper was at the 2.5 cm marking on the tube. The duodenal bulb, first portion of the duodenum and second portion of the duodenum were normal. _ Recommendation: - Please follow the post-PEG recommendations. Procedure Code(s): --- Professional --- 53618, Esophagogastroduod enoscopy, flexible, transoral; with directed placement of percutaneous gastrostomy tube --- Technical --- 66901, Esophagogastroduod enoscopy, flexible, transoral; with directed placement of percutaneous gastrostomy tube Diagnosis Code(s): --- Professional --- R13.10, Dysphagia, unspecified Z43.1, Encounter for attention to gastrostomy --- Technical --- R13.10, Dysphagia, unspecified Z43.1, Encounter for attention to gastrostomy CPT copyright 2020 [employer]. All rights reserved. The codes documented in this report are preliminary and upon orthopedic coder review may be revised to meet current compliance requirements. Phong Aviles MD 04/23/2025 2:13:40 PM This report has been signed electronically. Number of Addenda: 0 Note Initiated On: 04/23/2025 12:31 PM [facility] 04/23/2025 12:3 1 PM CDT us Phong Aviles MD GI PROCEDURE ORDERABLES Edited R esult - Final [facility] * XR Chest 1Vw Portable (04/22/2025 8:33 AM CDT) Only the most recent of5 resultswithin the time period is included. Anatomical Region Laterality Modality Chest Radiographic Ashia ging 04/22/2025 8:35 AM CDT Impressions 04/22/2025 8:37 AM CDT IMPRESSION: Slightly decreased moderate pleural effusions > Interpreting Provider: Amy Bagley MD on 04/22/2025 8:37 AM Narrative 04/22/2025 8:37 AM CDT PROCEDURE: XR CHEST 1VW PORTABLE DATE/TIME OF EXAM: 04/22/2025 8:33 AM CLINICAL INFORMATION: None relevant/not provided if blank. Indication: J90: Pleural effusion Additional History: COMPARISON: Chest from 04/15/2025 FINDINGS: Bilateral pleural effusions have slightly decreased. There are residual hazy opacities in the central portions of the lungs. No pneumothorax. The heart size is unchanged. Mediastinum is unremarkable. A right arm catheter/PICC still ends in the axilla, likely in the axillary vein. Procedure Note Amy Bagley MD - 04/22/2025 PROCEDURE: XR CHEST 1VW PORTABLE DATE/TIME OF EXAM: 04/22/2025 8:33 AM CLINICAL INFORMATION: None relevant/not provided if blank. Indication: J90: Pleural effusion Additional History: COMPARISON: Chest from 04/15/2025 FINDINGS: Bilateral pleural effusions have slightly decreased. There are residual hazy opacities in the central portions of the lungs. No pneumothorax.The heart size is unchanged. Mediastinum is unremarkable. A right arm catheter/PICC still ends in the axilla, likely in the axillary vein. IMPRESSION: Slightly decreased moderate pleural effusions > Interpreting Provider: Amy Bagley MD on 04/22/2025 8:37 AM Sugar Schwartz DO DIAGNOSTIC IMAGING ORDERABLES Final Result * FL MODIFIED BARIUM SWALLOW W/SPEECH (04/16/2025 1:50 PM CDT) Anatomical Region Laterality Modality Chest Radio Fluoroscop y 04/16/2025 1:52 PM CDT Impressions 04/26/2025 3:07 PM CDT IMPRESSION: Fluoroscopic guidance for modified swallow. Please see detailed report from speech pathology staff. > Interpreting Provider: Jada Richardson MD on 04/26/2025 3:07 PM Narrative 04/26/2025 3:07 PM CDT PROCEDURE: FL SWALLOWING FUNCTION STUDY DATE/TIME OF EXAM: 04/16/2025 1:51 PM CLINICAL INFORMATION: None relevant/not provided if blank. Indication: K62.89: Rectal mass J90: Pleural effusion, bilateral R13.12: Oropharyngeal dysphagia Additional History: COMPARISON: None. TECHNIQUE: Modified barium swallow fluoroscopy performed in conjunction with speech pathology staff. The speech pathologist administered varying thickness barium liquids under direct Cine fluoroscopy. FINDINGS: Fluoroscopic images demonstrate swallowing. There is vallecular residue with pudding. Visualization is obscured by the patient's shoulders. FLUOROSCOPY DOSE: 17.58 mGy Reference air kerma (ka,r). Procedure Note Jada Richardson MD - 04/26/2025 PROCEDURE: FL SWALLOWING FUNCTION STUDY DATE/TIME OF EXAM: 04/16/2025 1:51 PM CLINICAL INFORMATION: None relevant/not provided if blank. Indication: K62.89: Rectal mass J90: Pleural effusion, bilateral R13.12: Oropharyngeal dysphagia Additional History: COMPARISON: None. TECHNIQUE: Modified barium swallow fluoroscopy performed in conjunction with speech pathology staff. The speech pathologist administered varying thickness barium liquids under direct Cine fluoroscopy. FINDINGS: Fluoroscopic images demonstrate swallowing. There is vallecular residue with pudding. Visualization is obscured by the patient's shoulders. FLUOROSCOPY DOSE: 17.58 mGy Reference air kerma (ka,r). IMPRESSION: Fluoroscopic guidance for modified swallow. Please see detailed report from speech pathology staff. > Interpreting Provider: Jada Richardson MD on 04/26/2025 3:07 PM Jefe Aguila MD FLUOROSCOPY ORDERABLES Fi nal Result * US Abdomen Limited (04/16/2025 9:15 AM CDT) Anatomical Region Laterality Modality Abdomen Ultrasound 04/16/2025 10:0 2 AM CDT Impressions 04/16/2025 10:43 AM CDT IMPRESSION: 1.Distended gallbladder with intraluminal stones and sludge and gallbladder wall thickening, which is nonspecific in the setting of ascites. 2.Right pleural effusion and small volume ascites. 3.Partially visualized right adrenal lesion. 4.6.5 mm right lower pole renal stone. Edited by Rissa Acosta on 04/16/2025 10:28 AM > Interpreting Provider: Jada Richardson MD on 04/16/2025 10:43 AM Narrative 04/16/2025 10:43 AM CDT PROCEDURE: US ABDOMEN LIMITED DATE/TIME OF EXAM: 04/16/2025 9:15 AM CLINICAL INFORMATION: None relevant/not provided if blank. Indication: R74.8: Elevated alkaline phosphatase level. Additional History: COMPARISON: 03/25/2025 TECHNIQUE: Real-time ultrasound of the upper abdomen with DICOM image capture performed by hyperbaric technologist. FINDINGS: Pancreas: The visualized portions of the pancreatic head/body are normal. Liver: The liver is normal in size, echotexture, and echogenicity. Vasculature: The imaged portions of the portal and hepatic veins are patent with appropriate directional flow. Gallbladder: The gallbladder is distended. There are intraluminal stones and sludge. There is gallbladder wall thickening, which is nonspecific in the setting of ascites. The gallbladder measures up to 6 mm in thickness. Biliary: The common duct is nondilated. The common bile duct measures 4 mm. Right kidney: The known right adrenal lesion is seen on some images but not measured. It is approximately 4.1 cm but better demonstrated on recent CT. A focus is measured in the right upper pole kidney. However, on recent CT there is no lesion in this region and this is likely artifactual. A shadowing echogenic focus in the right upper pole measures 6.5 mm. Other: Small volume ascites. A right pleural effusion is partially visualized. There is atelectasis at the right lung base. Procedure Note Jada Richardson MD - 04/16/2025 PROCEDURE: US ABDOMEN LIMITED DATE/TIME OF EXAM: 04/16/2025 9:15 AM CLINICAL INFORMATION: None relevant/not provided if blank. Indication: R74.8: Elevated alkaline phosphatase level. Additional History: COMPARISON: 03/25/2025 TECHNIQUE: Real-time ultrasound of the upper abdomen with DICOM image capture performed by hyperbaric technologist. FINDINGS: Pancreas: The visualized portions of the pancreatic head/body are normal. Liver: The liver is normal in size, echotexture, and echogenicity. Vasculature: The imaged portions of the portal and hepatic veins arepatent with appropriate directional flow. Gallbladder: The gallbladder is distended. There are intraluminal stones and sludge. There is gallbladder wall thickening, which is nonspecificin the setting of ascites. The gallbladder measures up to 6 mm inthickness. Biliary: The common duct is nondilated. The common bile duct measures 4mm. Right kidney: The known right adrenal lesion is seen on some images butnot measured. It is approximately 4.1 cm but better demonstrated on recentCT. A focus is measured in the right upper pole kidney. However, on recentCT there is no lesion in this region and this is likely artifactual. A shadowing echogenic focus in the right upper pole measures 6.5 mm. Other: Small volume ascites. A right pleural effusion is partially visualized. There is atelectasis at the right lung base. IMPRESSION: 1.Distended gallbladder with intraluminal stones and sludge andgallbladder wall thickening, which is nonspecific in the setting of ascites. 2.Right pleural effusion and small volume ascites. 3.Partially visualized right adrenal lesion. 4.6.5 mm right lower pole renal stone. Edited by Rissa Acosta on 04/16/2025 10:28 AM > Interpreting Provider: Jada Richardson MD on 04/16/2025 10:43 AM Martinez Alex MD US ORDERABLES Final Result * TRANSFUSE RED BLOOD CELL LEUKOREDUCED UNIT(S) (04/13/2025 2:58 PM CDT) Shubham Marion MD NURSING - BLOOD PROD TRANSF USION Edited Result - Final * ETT LINE PERFORMABLE (04/13/2025 1:22 PM CDT) Narrative Elda Childs APRN-CRNA - 04/13/2025 1:22 PM CDT Elda Childs APRN-CRNA 04/13/2025 1:23 PM Endotracheal Tube Placement: Patient Location: OR. Intubation Event Date/Time: 04/13/2025 12:46 PM Procedure: intubation ([id number]) Procedure Section: Sedation: under general anesthesia. Indications for Airway Management: anesthesia Induction: modified rapid sequence Patient Position: sniffing Mask Ventilation: easy with oral airway. Blade Type: Video (loose teeth) Blade Size: 3 Laryngoscopy View: grade 1 (full cords) Intubation Adjuncts: stylet and video laryngoscope Tube: endotracheal tube Placement: oral Tube type: cuff - inflated Tube Size (MM): 7 Depth of Insertion (CM): 21 Measured From: teeth Cuff volume (mL): 8 Cuff Inflated With: air Number of Attempts: 1. Placement Verified By: bilateral breath sounds, direct visualization, CO2 monitor and chest auscultation Tube secured with: adhesive tape. Dentition unchanged? Yes Difficult Airway? No. Procedure Start Time: 04/13/2025 12:46 PM. Staff Section Anesthesia Provider: Elda Childs APRN-CARLOS, Performed the procedure Additional Comments: Pt with very loose bottom tooth. Remains in place post intubation. . Shubham Marion MD GENERAL ANESTHESIA ORDERABL ES Final Result * PREPARE (CROSSMATCH) RBC UNIT(S), 2 Units (04/13/2025 6:50 AM CDT) Unit Description AS1 LR PRBC [facility] Unit ABO O [facility] Unit Rh POS [facility] Product Number R02 [facility] Unit Donor # [id number] [facility] Unit Status transfused [facility] Product [facility] [id number] [facility] Blood Type Barcode 5100 [facility] Expiration Date S [facility] Unit Description AS1 LR PRBC [facility] Unit ABO O [facility] Unit Rh POS [facility] Product Number R02 [facility] Unit Donor # [id number] [facility] Unit Status released [facility] Product [facility] [id number] [facility] Blood Type Barcode 5100 [facility] Expiration Date S [facility] Blood Bank BLOOD SPECIMEN / Unknown 04/13/2025 6:50 AM CDT 04/13/2025 6:57 AM CDT Shubham Marion MD LAB - BLOOD BANK ORDERABLES Final Result Performing Organization Address City/State/[facility] Co de Phone Number [facility] [address] [place] [address] * TYPE + SCREEN PANEL (04/13/2025 6:50 AM CDT) ABO Rh O POS 04/13/2025 7:39 AM CDT [facility] Comment:No history; collect retype. Antibody Screen NEG 7:39 AM CDT [facility] Blood Bank BLOOD SPECIMEN / Unknown Venipuncture / Unknown 04/13/2025 6:50 AM CDT 04/13/2025 6:57 AM CDT Ana Montanez MD LAB - BLOOD BANK ORDERABL ES Final Result Performing Organization Address [facility] Co de Phone Number [facility] [address] [place] [address] * BLOOD TYPE VERIFICATION (04/13/2025 6:07 AM CDT) ABO Rh O POS 04/13/2025 7:3 9 AM CDT [facility] Blood Bank BLOOD SPECIMEN / Unknown Lab Venipuncture / Unknown 04/13/2025 6:07 AM CDT 04/13/2025 6:08 AM CDT us Joanie Rojas MD LAB - BLOOD BANK ORDERABLES F inal Result Performing Organization Address [facility] Co de Phone Number [facility] [address] [place] [address] * CULTURE FUNGUS OTHER+FUNGUS SMEAR (04/12/2025 1:17 PM CDT) Culture No fungus isolated MACIEL 05/10/2025 9:46 AM CDT [facility] Fungus Stain No yeast or hyphae seen 05/10/2025 9:46 AM CDT [facility] Fungus Stain No Pneumocystis jirovecii 05/10/2025 9:46 AM CDT [facility] Microbiology PLEURAL FLUID / Unknown Collection / Unknown 04/12/2025 1:17 PM CDT 04/12/2025 1:17 PM CDT Ana Montanez MD LAB - MICROBIOLOGY ORDERA BLES Final Result Performing Organization Address [facility]/ZIP Co de Phone Number [facility] [address] [place] [address], [facility] [phone] * CULTURE FLUID+GRAM STAIN (04/12/2025 1:17 PM CDT) Culture No growth MACIEL 04/15/2025 10:44 PM CDT [facility] Gram Stain Rare Polymorphonuclear cells 04/15/2025 10:44 PM CDT [facility] Gram Stain No organisms seen 025 10:44 PM CDT [facility] Fluid PLEURAL FLUID / Unknown Collection / Unknown 04/12/2025 1:17 PM CDT 04/12/2025 1:17 PM CDT Ana Montanez MD LAB - MICROBIOLOGY ORDERA BLES Final Result Performing Organization Address [facility] de Phone Number [facility] [address] [place] [address], [facility] [phone] * CULTURE ANAEROBE (04/12/2025 1:17 PM CDT) Culture No anaerobic organisms isolated MACIEL 04/18/2025 12:37 PM CDT [facility] Microbiology PLEURAL FLUID / Unknown Collection / Unknown 04/12/2025 1:17 PM CDT 04/12/2025 1:17 PM CDT Ana Montanez MD LAB - MICROBIOLOGY ORDERA BLES Final Result Performing Organization Address City/[facility]/ZIP Co de Phone Number [facility] [address] [place] [address], [facility] [phone] * CHOLESTEROL BODY FLUID (04/12/2025 1:16 PM CDT) Total Cholesterol Body Fluid 24 Not Established for Fluids mg/dL 04/12/2025 1:48 PM CDT [facility] Fluid Type Pleural Fluid 04/12/2025 1:48 PM CDT [facility] Fluid PLEURAL FLUID / Unknown Collection / Unknown 04/12/2025 1:16 PM CDT 04/12/2025 1:16 PM CDT Narrative [facility] - 04/12/2025 1:48 PM CDT The analytical performance of this test has been independently validated by the laboratory. A reference range has not been established for this fluid. Comparison of this result with the concentration in blood, serum or plasma is recommended. Ana Montanez MD LAB - BODY FLUID ORDERABL ES Final Result Performing Organization Address [facility] de Phone Number [facility] [address] [place] [phone] * TRIGLYCERIDES BODY FLUID (04/12/2025 1:16 PM CDT) [facility] Triglycerides Fluid 12 Not Established For Fluids mg/dL 04/12/2025 1:48 PM CDT [facility] Fluid Type Pleural Fluid 04/12/2025 1:48 PM CDT [facility] Fluid PLEURAL FLUID / Unknown Collection / Unknown 04/12/2025 1:16 PM CDT 04/12/2025 1:16 PM CDT Narrative [facility] - 04/12/2025 1:48 PM CDT The analytical performance of this test has been independently validated by the laboratory. A reference range has not been established for this fluid. Comparison of this result with the concentration in blood, serum or plasma is recommended. Ana Montanez MD LAB - BODY FLUID ORDERABL ES Final Result Performing Organization Address [facility] Co de Phone Number [facility] [address] [place] [address] [phone] * PROTEIN BODY FLUID (04/12/2025 1:16 PM CDT) Protein Fluid 1.7 Not Established For Fluids g/dL 04/12/2025 1:48 PM CDT [facility] Fluid Type Pleural Fluid 04/12/2025 1:48 PM CDT [facility] Fluid PLEURAL FLUID / Unknown Collection / Unknown 04/12/2025 1:16 PM CDT 04/12/2025 1:16 PM CDT Narrative [facility] - 04/12/2025 1:48 PM CDT The analytical performance of this test has been independently validated by the laboratory. A reference range has not been established for this fluid. Comparison of this result with the concentration in blood, serum or plasma is recommended. Ana Montanez MD LAB - BODY FLUID ORDERABL ES Final Result Performing Organization Address [facility] de Phone Number [address] [phone] * LDH BODY FLUID (04/12/2025 1:16 PM CDT) LD Fluid 111 Not Established For Fluids Units/L 04/12/2025 1:48 PM CDT [facility] Fluid Type Pleural Fluid 04/12/2025 1:48 PM CDT [facility] Fluid PLEURAL FLUID / Unknown Collection / Unknown 04/12/2025 1:16 PM CDT 04/12/2025 1:16 PM CDT Narrative [facility] - 04/12/2025 1:48 PM CDT The analytical performance of this test has been independently validated by the laboratory. A reference range has not been established for this fluid. Comparison of this result with the concentration in blood, serum or plasma is recommended. Ana Montanez MD LAB - BODY FLUID ORDERABL ES Final Result Performing Organization Address [facility] Co de Phone Number [facility] [address] [place] [phone] * GLUCOSE BODY FLUID (04/12/2025 1:16 PM CDT) Glucose Fluid 167 Not Established For Fluids mg/dL 04/12/2025 1:48 PM CDT [facility] Fluid Type Pleural Fluid 04/12/2025 1:48 PM CDT [facility] Fluid PLEURAL FLUID / Unknown Collection / Unknown 04/12/2025 1:16 PM CDT 04/12/2025 1:16 PM CDT Narrative [facility] - 04/12/2025 1:48 PM CDT The analytical performance of this test has been independently validated by the laboratory. A reference range has not been established for this fluid. Comparison of this result with the concentration in blood, serum or plasma is recommended. Ana Montanez MD LAB - BODY FLUID ORDERABL ES Final Result Performing Organization Address [facility] Co de Phone Number [facility] [address] [place] [phone] * DIFFERENTIAL MANUAL FLUID (04/12/2025 1:16 PM CDT) Fluid Source Pleural 04/12/2025 1:57 PM CDT [facility] Body Fluid Total Cell Count 100 x10E6/L 04/12/2025 1:57 PM CDT [facility] Neutrophils Fluid Percent 52 % 04/12/2025 1:57 PM CDT [facility] Lymphocytes Fluid Percent 32 % 04/12/2025 1:57 PM CDT [facility] Macrophages Fluid Percent 16 % 04/12/2025 1:57 PM CDT [facility] Fluid PLEURAL FLUID / Unknown Collection / Unknown 04/12/2025 1:16 PM CDT 04/12/2025 1:16 PM CDT Narrative [facility] - 04/12/2025 1:57 PM CDT No reference ranges established for body fluid differential cell counts. The test results must be integrated into the clinical context for interpretation. Ana Montanez MD LAB - BODY FLUID ORDERABL ES Final Result Performing Organization Address [facility] Co de Phone Number [facility] [address] [place] [address] [phone] * CELL COUNT W DIFFERENTIAL FLUID (04/12/2025 1:16 PM CDT) Fluid Source Pleural 04/12/2025 1:57 PM CDT [facility] Fluid Appearance HAZY 04/12/2025 1:57 PM CDT [facility] Fluid Color YELLOW 04/12/2025 1:57 PM CDT [facility] Total Nucleated Cells Fluid 67 Reference Range Not Established x10E6/L 04/12/2025 1:57 PM CDT [facility] RBC Count Fluid <2,000 Reference Range Not Established x10E6/L 04/12/2025 1:57 PM CDT [facility] Fluid PLEURAL FLUID / Unknown Collection / Unknown 04/12/2025 1:16 PM CDT 04/12/2025 1:16 PM CDT Narrative [facility] - 04/12/2025 1:57 PM CDT No reference ranges established for body fluid cell counts. Any reference ranges provided are derived from published literature. The test results must be integrated into the clinical context for interpretation. Ana Montanez MD LAB - BODY FLUID ORDERABL ES Final Result [facility] [address] [place] [address] * CYTOLOGY NON-ASSOCIATE DEAN OF WOMEN PANEL (STL) (04/12/2025 11:01 AM CDT) Case Report Cytology Non Anti Air Warfare Operations Officer Report Case: [id number] Authorizing Provider: Ana Montanez MD Collected: 04/12/2025 11:01 AM Ordering Location: [address] TELE Received: 04/12/2025 02:08 PM Pathologist: Julio Reid MD Specimen: Pleural Fluid 04/13/2025 4:22 PM CDT [facility] Final Diagnosis Pleural fluid, right, thoracentesis: - Macrophages and bland to reactive-appearing mesothelium - No carcinoma identified 04/13/2025 4:22 PM CDT [facility] at 1622 CDT Clinical History Per procedure note, pleural effusion (right). 04/13/2025 4:22 PM CDT [facility] Gross Description 27 mL of yellow fluid is received. A Pap-stained ThinPrep slide and H&E-stained cell block sections are produced. /GRW 04/13/2025 4:22 PM T [facility] Microscopic Description In a Pap-stained ThinPrep slide as well as H&E-stained cell block sections, there are scattered macrophages and mesothelial cells. No large cohesive aggregates of malignant-appearing epithelium are identified. An immunohistochemical panel (calretinin, CD68, and MOC31) is performed on cell block sections with appropriate control for each marker. The calretinin and CD68 stains highlight the mesothelial and histiocytic components, respectively. No MOC31 positivity is observed. 04/13/2025 4:22 PM T [facility] Pathologist Location at [facility] 04/13/2025 4:22 PM T [facility] Disclaimer All histochemical and/or immunohistochemical results are interpreted with controls that demonstrate appropriate staining reactions before reporting results. Note on use of immunocytochemistry reagents: This test was developed and its performance characteristic determined by [facility], Department of Laboratory Medicine. It has not been cleared or approved by the U.S. Food and Drug Administration (FDA). The FDA has determined that such clearance or approval is not necessary. The test is used for clinical purpose. It should not be regarded as investigational or for research. This laboratory is certified to perform high complexity testing. The performance characteristics of the IHC/DYAN assays have been validated on formalin-fixed paraffin embedded tissues only. The assays have not been validated on decalcified tissues. Results should be interpreted with caution. 04/13/2025 4:22 PM CDT [facility] Embedded Images 04/13/2025 4:22 PM CDT [facility] Pathology/Cytolo gy PLEURAL FLUID / Unknown 04/12/2025 11:01 AM CDT 04/12/2025 2:08 PM CDT us Ana Montanez MD LAB - PATHOLOGY/CYTOLOGY ORDERABLES Final Result [facility] [address] [place] [address] * TROPONIN-I HIGH SENSITIVE (04/12/2025 9:52 AM CDT) Troponin I High Sensitive 5 <=14 ng/L 04/12/2025 11:12 AM CDT [facility] Blood BLOOD SPECIMEN / Unknown Venipuncture / Unknown 04/12/2025 9:52 AM CDT 04/12/2025 10:36 AM CDT Ana Montanez MD LAB - CHEMISTRY ORDERABLE S Final Result Performing Organization Address [facility] de Phone Number [facility] [address] [place] [phone] * (ABNORMAL) B-TYPE NATRIURETIC PEPTIDE (04/12/2025 9:52 AM CDT) BNP 1,222(H) <=100 pg/mL 04/12/2025 11:12 AM CDT [facility] Blood BLOOD SPECIMEN / Unknown Venipuncture / Unknown 04/12/2025 9:52 AM CDT 04/12/2025 10:36 AM CDT Narrative [facility] - 04/12/2025 11:12 AM CDT A cutoff of 100 pg/mL has been demonstrated to provide the maximal combination of sensitivity, specificity, and negative predictive value for contributing to the diagnosis of congestive heart failure (CHF) only. A B-Type Natriuretic Peptide (BNP) value greater than or equal to 100 pg/mL is consistent with a diagnosis of CHF in the appropriate clinical setting. False positive results are more common in females greater than 75 years of age. Blood concentrations of natriuretic peptides may also be elevated in patients with myocardial infarction and in patients who are candidates for or are undergoing renal dialysis. Ana Montanez MD LAB - CHEMISTRY ORDERABLE S Final Result Performing Organization Address [facility] Co de Phone Number [facility] [address] [place] [address] * EKG 12-LEAD (04/12/2025 9:33 AM CDT) Only the most recent of2 resultswithin the time period is included. Ventricular Rate 95 BPM [facility] QRS Duration ms 90 ms [facility] Q-T Interval ms 310 ms [facility] QTC Calculation (Bezet) 389 ms [facility] Calculated R [employer] -16 degrees [facility] Calculated T [employer] 162 degrees [facility] Interpretation EKG ATRIAL FIBRILLATION ST & T WAVE ABNORMALITY, CONSIDER LATERAL ISCHEMIA ABNORMAL ECG Confirmed by DO MERRILL STEPHANIE ([id number]) on 04/13/2025 5:16:34 PM [facility] 04/12/2025 9:33 AM CDT 04/13/2025 5:16 PM CDT us Ana Montanez MD ECG ORDERABLES Edited Re sult - Final [facility] * (ABNORMAL) BLOOD GASES ARTERIAL (04/12/2025 9:25 AM CDT) pH Arterial 7.34(L) 7.35 - 7.45 pH 04/12/2025 9:45 AM CDT [facility] pO2 Arterial 67(L) 80 - 100 mmHg 04/12/2025 9:45 AM CDT [facility] pCO2 Arterial 65(H) 35 - 45 mmHg 04/12/2025 9:45 AM CDT [facility] HCO3 Arterial 35.1(H) 22.0 - 26.0 mmol/L 04/12/2025 9:45 AM CDT [facility] BE Arterial 7.0(H) -2.0 - 2.0 mmol/L 04/12/2025 9:45 AM CDT [facility] O2 Saturation Arterial 96 90 - 100 % 04/12/2025 9:45 AM CDT [facility] Morgan's Test Positive 04/12/2025 9:45 AM CDT [facility] O2 Device Cannula 04/12/2025 9:45 AM CDT [facility] Liter Flow (LPM) 6 04/12/2025 9:45 AM CDT [facility] P/F Ratio 04/12/2025 9:45 AM CDT [facility] Comment:C^Incalculable Blood, arterial ARTERIAL BLOOD SPECIMEN / Unknown 04/12/2025 9:25 AM CDT 04/12/2025 9:25 AM CDT Ana Montanez MD LAB - BLOOD GASES ORDERAB LES Final Result Performing Organization Address [facility] Co de Phone Number [facility] RESP THERAPY [address] [place] [address] * (ABNORMAL) LDH BLOOD (04/12/2025 5:13 AM CDT) LDH 239(H) 125 - 220 U/L 04/12/2025 2:09 PM CDT [facility] Blood BLOOD SPECIMEN / Unknown Venipuncture / Unknown 04/12/2025 5:13 AM CDT 04/12/2025 5:45 AM CDT Ana Montanez MD LAB - CHEMISTRY ORDERABLE S Final Result Performing Organization Address [facility] de Phone Number [facility] [address] [place] [address] * TRIGLYCERIDES BLOOD (04/09/2025 7:03 AM CDT) Triglycerides 143 <150 mg/dL 04/09/2025 7:35 AM CDT [facility] Blood BLOOD SPECIMEN / Unknown Venipuncture / Unknown 04/09/2025 7:03 AM CDT 04/09/2025 7:10 AM CDT Joanie Rojas MD LAB - CHEMISTRY ORDERABLES Fi nal Result Performing Organization Address [facility] Co de Phone Number [facility] [address] [place] [address] * (ABNORMAL) RENAL FUNCTION PANEL (04/09/2025 7:03 AM CDT) Only the most recent of5 resultswithin the time period is included. Glucose 317(H) 70 - 99 mg/dL 04/09/2025 7:35 AM CDT [facility] Sodium 145 136 - 145 mmol/L 04/09/2025 7:35 AM CDT [facility] Potassium 3.3(L) 3.5 - 5.1 mmol/L 04/09/2025 7:35 AM CDT [facility] Chloride 104 98 - 107 mmol/L 04/09/2025 7:35 AM CDT [facility] CO2 34(H) 22 - 29 mmol/L 04/09/2025 7:35 AM CDT [facility] Calcium 7.8(L) 8.4 - 10.4 mg/dL 04/09/2025 7:35 AM CDT [facility] Anion Gap 7 6 - 16 mmol/L 04/09/2025 7:35 AM CDT [facility] BUN 25 7 - 26 mg/dL 04/09/2025 7:35 AM CDT [facility] Creatinine 0.56(L) 0.57 - 1.11 mg/dL 04/09/2025 7:35 AM CDT [facility] Albumin 1.2(L) 3.1 - 4.5 gm/dL 04/09/2025 7:35 AM CDT [facility] Phosphorus 3.0 2.5 - 4.5 mg/dL 04/09/2025 7:35 AM T [facility] [facility] eGFR by CKD-EPI >90 >=90 mL/min/1.7 3 m2 04/09/2025 7:35 AM CDT [facility] Blood BLOOD SPECIMEN / Unknown Venipuncture / Unknown 04/09/2025 7:03 AM CDT 04/09/2025 7:10 AM CDT Seven Mccabe MD LAB - CHEMISTRY ORDERABLES Fi nal Result [facility] [address] [place] [address] * POTASSIUM BLOOD (04/08/2025 6:45 AM CDT) Pathologist [facility] Potassium 3.7 3.5 - 5.1 mmol/L 04/08/2025 7:06 AM CDT [facility] Blood BLOOD SPECIMEN / Unknown Venipuncture / Unknown 04/08/2025 6:45 AM CDT 04/08/2025 6:50 AM CDT Seven Mccabe MD LAB - CHEMISTRY ORDERABLES Fi nal Result [facility] [address] [place] [address] * ALT (04/08/2025 2:53 AM CDT) ALT 32 6 - 57 U/L 04/08/2025 3:14 AM CDT [facility] Blood BLOOD SPECIMEN / Unknown Line Draw / Unknown 04/08/2025 2:53 AM CDT 04/08/2025 2:58 AM CDT Result [facility] Joanie Rojas MD LAB - CHEMISTRY ORDERABLES Fi nal Result Performing Organization Address [facility] Co de Phone Number [facility] [address] [place], [place] [phone] * (ABNORMAL) AST BLOOD (04/08/2025 2:53 AM CDT) AST 153(H) 10 - 48 U/L 04/08/2025 3:14 AM CDT [facility] Blood BLOOD SPECIMEN / Unknown Line Draw / Unknown 04/08/2025 2:53 AM CDT 04/08/2025 2:58 AM CDT Joanie Rojas MD LAB - CHEMISTRY ORDERABLES Fi nal Result Performing Organization Address City/[facility]/ZIP Co de Phone Number [facility] [address] [place], [place] [phone] * (ABNORMAL) PROTEIN TOTAL BLOOD (04/08/2025 2:53 AM CDT) Protein Total 5.3(L) 6.4 - 8.3 gm/dL 04/08/2025 3:14 AM CDT [facility] Blood BLOOD SPECIMEN / Unknown Line Draw / Unknown 04/08/2025 2:53 AM CDT 04/08/2025 2:58 AM CDT us Joanie Rojas MD LAB - CHEMISTRY ORDERABLES Fi nal Result Performing Organization Address [facility] Co de Phone Number [facility] [address] [place] [phone] * (ABNORMAL) BILIRUBIN TOTAL+DIRECT BLOOD PANEL (04/08/2025 2:53 AM CDT) Pathologist [facility] Bilirubin Total 0.9 0.2 - 1.2 mg/dL 04/08/2025 3:14 AM CDT [facility] Bilirubin Direct 0.764(H) 0.10 - 0.50 mg/dL 04/08/2025 3:14 AM CDT [facility] Bilirubin Indirect 0.1 mg/dL 04/08/2025 3:14 AM CDT [facility] Blood BLOOD SPECIMEN / Unknown Line Draw / Unknown 04/08/2025 2:53 AM CDT 04/08/2025 2:58 AM CDT us Joanie Rojas MD LAB - CHEMISTRY ORDERABLES Fi nal Result Performing Organization Address [facility] Co de Phone Number [facility] [address] [place] [phone] * (ABNORMAL) ALKALINE PHOSPHATASE BLOOD (04/08/2025 2:53 AM CDT) [facility] Alkaline Phosphatase 492(H) 40 - 150 U/L 04/08/2025 3:14 AM CDT [facility] Blood BLOOD SPECIMEN / Unknown Line Draw / Unknown 04/08/2025 2:53 AM CDT 04/08/2025 2:58 AM CDT us Joanie Rojas MD LAB - CHEMISTRY ORDERABLES Fi nal Result Performing Organization Address City/[facility] Co de Phone Number [facility] [address] [place] [phone] * (ABNORMAL) DIFFERENTIAL MANUAL (04/07/2025 3:50 PM CDT) Only the most recent of3 resultswithin the time period is included. [facility] Neutrophil % 94(H) 41 - 74 % 04/07/2025 6:05 PM CDT [facility] Lymphocyte % 3(L) 17 - 47 % 04/07/2025 6:05 PM CDT [facility] Monocyte % 3 3 - 11 % 04/07/2025 6:05 PM CDT [facility] Neutrophil Absolute 14.10(H) 1.60 - 7.50 x10E9/L 04/07/2025 6:05 PM CDT [facility] Lymphocyte Absolute 0.45(L) 1.00 - 4.40 x10E9/L 04/07/2025 6:05 PM CDT [facility] Monocyte Absolute 0.45 0.15 - 1.00 x10E9/L 04/07/2025 6:05 PM CDT [facility] RBC Morphology REVIEWED 04/07/2025 6:05 PM CDT [facility] Macrocytosis MODERATE(A) (none) 04/07/2025 6:05 PM CDT [facility] Schistocytes FEW(A) (none) 04/07/2025 6:05 PM CDT [facility] Target Cells MODERATE(A) (none) 04/07/2025 6:05 PM CDT [facility] Blood BLOOD SPECIMEN / Unknown Venipuncture / Unknown 04/07/2025 3:50 PM CDT 04/07/2025 3:58 PM CDT us Seven Mccabe MD LAB - HEMATOLOGY ORDERABLES F inal Result [facility] [address] [place] [address] * (ABNORMAL) CBC W AUTO DIFFERENTIAL (04/07/2025 3:50 PM CDT) Only the most recent of10 resultswithin the time period is included. WBC 15.0(H) 4.0 - 10.7 x10E9/L 04/07/2025 6:05 PM CDT [facility] RBC Count 3.17(L) 3.90 - 5.20 x10E12/L 04/07/2025 6:05 PM CDT [facility] Hemoglobin 9.5(L) 11.9 - 15.8 g/dL 04/07/2025 6:05 PM CDT [facility] Hematocrit 31.5(L) 34.8 - 46.1 % 04/07/2025 6:05 PM CDT [facility] MCV 99.4(H) 80.0 - 98.0 fL 04/07/2025 6:05 PM CDT [facility] MCH 30.0 26.7 - 33.6 pg 04/07/2025 6:05 PM CDT [facility] MCHC 30.2(L) 31.7 - 36.3 g/dL 04/07/2025 6:05 PM CDT [facility] RDW-CV 22.0(H) 11.3 - 14.8 % 04/07/2025 6:05 PM CDT [facility] Platelet Count 131(L) 150 - 420 x10E9/L 04/07/2025 6:05 PM CDT [facility] MPV 10.6 7.8 - 11.4 fL 04/07/2025 6:05 PM CDT [facility] Blood BLOOD SPECIMEN / Unknown Venipuncture / Unknown 04/07/2025 3:50 PM CDT 04/07/2025 3:58 PM CDT Seven Mccabe MD LAB - HEMATOLOGY ORDERABLES F inal Result Performing Organization Address City/State/[facility] Co de Phone Number [facility] [address] [place] [address] * XR Abdomen Kub (04/05/2025 8:15 PM CDT) Anatomical Region Laterality Modality Abdomen Radiographic Ashia ging 04/05/2025 8:33 PM CDT Narrative 04/05/2025 8:34 PM CDT PROCEDURE: XR ABDOMEN KUB DATE/TIME OF EXAM: 04/05/2025 8:25 PM CLINICAL INFORMATION: None relevant/not provided if blank. Indication: R10.13: Epigastric pain Additional History: Findings/impression: No evidence of bowel obstruction is seen. Pigtail drainage catheter superimposes the pelvis. 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 No evidence of free air seen. > Interpreting Provider: Calderon Mcclellan MD on 04/05/2025 8:34 PM Procedure Note Calderon Mcclellan MD - 04/05/2025 PROCEDURE: XR ABDOMEN KUB DATE/TIME OF EXAM: 04/05/2025 8:25 PM CLINICAL INFORMATION: None relevant/not provided if blank. Indication: R10.13: Epigastric pain Additional History: Findings/impression: No evidence of bowel obstruction is seen. Pigtail drainage catheter superimposes the pelvis. Severe degenerative changesare seen in the hips and spine. No evidence of free air seen. > Interpreting Provider: Calderon Mcclellan MD on 04/05/2025 8:34 PM us Aminata Cervantes MD DIAGNOSTIC ASHIA GING ORDERABLES Final Result * SLIDE SCAN HEMATOLOGY (04/03/2025 3:27 AM CDT) Only the most recent of5 resultswithin the time period is included. RBC Morphology NORMAL 04/03/2025 4:23 AM CDT [facility] Blood BLOOD SPECIMEN / Unknown Venipuncture / Unknown 04/03/2025 3:27 AM CDT 04/03/2025 3:37 AM CDT us Giuseppedara Ghotra Lady AUDIO VISUAL AIDE-MANAGER [employer]VEST[employer]ATIONS LAB - HEMATOLOGY ORDER YANN Final Result [facility] [address] [place], [place] [phone] * PATHOLOGY TISSUE EXAM (STL) (04/02/2025 7:36 AM CDT) Case Report Surgical Pathology Report Case: [id number] Authorizing Provider: Itz Mahan MD Collected: 04/02/2025 07:36 AM Ordering Location: [facility] 3 Transitional Care Received: 04/02/2025 02:19 PM Unit Pathologist: Julio Reid MD Specimen: Rectal Biopsy, rectal mass 04/06/2025 5:40 PM CDT [facility] Final Diagnosis Rectal mass, biopsy: - Invasive adenocarcinoma 04/06/2025 5:40 PM CDT [facility] at 1740 CDT Clinical History R93.3 04/06/2025 5:40 PM [facility] Gross Description The specimen is identified with the patient's name and date of . Received in formalin, specimen A rectal biopsy rectal mass are multiple rivas mucosal tissues (0.1 to 0.7 cm in greatest dimension; 1.5 x 0.7 x 0.3 cm in aggregate) that are entirely submitted in cassette A1. /LJ 04/06/2025 5:40 PM [facility] Microscopic Description An immunohistochemical panel (cytokeratin 7, cytokeratin 20, CDX2, chromogranin, synaptophysin) is performed on sections of block A1 with appropriate control. Among the neoplastic cells, there is strong and diffuse cytoplasmic cytokeratin 20 immunoreactivity. Rare cells are also cytokeratin 7 positive. No significant chromogranin or synaptophysin staining is observed. 04/06/2025 5:40 PM [facility] Pathologist Location at [facility] 04/06/2025 5:40 PM [facility] Disclaimer All histochemical and/or immunohistochemical results are interpreted with controls that demonstrate appropriate staining reactions before reporting results. Note on use of immunocytochemistry reagents: This test was developed and its performance characteristic determined by [facility], Department of Laboratory Medicine. It has not been cleared or approved by the U.S. Food and Drug Administration (FDA). The FDA has determined that such clearance or approval is not necessary. The test is used for clinical purpose. It should not be regarded as investigational or for research. This laboratory is certified to perform high complexity testing. The performance characteristics of the IHC/DYAN assays have been validated on formalin-fixed paraffin embedded tissues only. The assays have not been validated on decalcified tissues. Results should be interpreted with caution. 04/06/2025 5:40 PM [facility] Embedded Images 04/06/2025 5:40 PM [facility] Pathology/Cytolo gy RECTAL BIOPSY SPECIMEN / Unknown 04/02/2025 7:36 AM CDT 04/02/2025 2:19 PM CDT Comment:Pre-op diagnosis: Abnormal finding on GI tract imaging [R93.3] Itz Mahan MD LAB - PATHOLOGY/CYTOLOGY ORDERABLES Final Result [facility] [address] [place] [address] * ENDOSCOPY, SIGMOID (04/02/2025 6:39 AM CDT) Report Endoscopy POC _ Patient Name: Bharti Neal Procedure Date: 04/02/2025 6:39 AM Date of : 1950 Admit Type: Inpatient Age: 74 Gender: Female Ethnicity: Not or Race: White Attending MD: Itz Mahan MD, [id number] _ Procedure: Flexible Sigmoidoscopy Indications: Rectal mass Providers: Itz Mahan MD (Doctor), Bianca Sanchez, RN, Fredi Machuca, ALICE Referring MD: Lexy George (Referring MD) Medicines: Monitored Anesthesia Care Complications: No immediate complications. _ Estimated Blood Loss: Estimated blood loss was minimal. Procedure: Pre-Anesthesia Assessment: - Prior to the procedure, a History and Physical was performed, and patient medications, allergies and sensitivities were reviewed. The patient's tolerance of previous anesthesia was reviewed. - The risks and benefits of the procedure and the sedation options and risks were discussed with the patient. All questions were answered and informed consent was obtained. - Patient identification and proposed procedure were verified prior to the procedure by the physician, the heart nurse and the senior quality technician. The procedure was verified in the pre-procedure area in the endoscopy suite. After obtaining informed consent, the scope was passed under direct vision. The Colonoscope was introduced through the anus and advanced to the rectum. The flexible sigmoidoscopy was accomplished without difficulty. The patient tolerated the procedure well. The quality of the bowel preparation was adequate. Impression: - Rectal mass 8.0 cm from the anal verge. 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 Biopsied. Tattooed. - The examination was otherwise normal. Findings: The digital rectal exam revealed a firm and obstructing rectal mass palpated 8.0 cm from the anal verge. The mass was circumferential. A fungating partially obstructing large mass was found in the mid rectum. The mass was circumferential. In addition, its diameter measured four mm. Oozing was present. Biopsies were taken with a cold forceps for histology. Area was tattooed with an injection of 3 mL of Spot (carbon black). Estimated blood loss was minimal. The exam was otherwise without abnormality. _ Recommendation: - [facility]. - Await pathology results. Procedure Code(s): --- Professional --- 76213, 52, Sigmoidoscopy, flexible; with biopsy, single or multiple 65716, 52, Sigmoidoscopy, flexible; with directed submucosal injection(s), any substance --- Technical --- 10540, 52, Sigmoidoscopy, flexible; with biopsy, single or multiple 19034, 52, Sigmoidoscopy, flexible; with directed submucosal injection(s), any substance Diagnosis Code(s): --- Professional --- D49.0, Neoplasm of unspecified behavior of digestive system --- Technical --- D49.0, Neoplasm of unspecified behavior of digestive system CPT copyright 2020 [employer]. All rights reserved. The codes documented in this report are preliminary and upon orthopedic coder review may be revised to meet current compliance requirements. Itz Mahan MD 04/02/2025 7:46:40 AM Number of Addenda: 0 Note Initiated On: 04/02/2025 6:39 AM [facility] 04/02/2025 6:39 AM CDT us Itz Mahan MD GI PROCEDURE ORDERABLES E dited Result - Final [facility] * IR Fistula or Sinus Tract Study (04/01/2025 4:29 PM CDT) Anatomical Region Laterality Modality Abdomen X-Ray Angiograph y 04/02/2025 9:51 AM CDT Impressions 04/02/2025 9:55 AM CDT Impression: Fluoroscopy-guided tube check through the existing pigtail drainage catheter in the presacral region showed persistent fluid collection with colonic fistulization. I, Dr. Jennifer Ruiz performed/was present throughout the procedure. > Interpreting Provider: Jennifer Ruiz MD on 04/02/2025 9:55 AM Narrative 04/02/2025 9:55 AM CDT PROCEDURE: IR FISTULA OR SINUS TRACT STUDY DATE/TIME OF EXAM: 04/01/2025 4:42 PM CLINICAL INFORMATION: None relevant/not provided if blank. Indication: K57.80: Diverticulitis of intestine with abscess, unspecified bleeding status, unspecified part of intestinal tract History: 74-year-old female with history of diverticulitis status post drain placement at outside hospital, presenting for drain check and possible exchange. Operators: 1.Dr. Ruiz, Attending Physician Anesthesia: 50 mcg of fentanyl Procedure: 1.Fluoroscopy-guided abscessogram/tube check through the existing 14 [place] pigtail drainage catheter in the presacral fluid collection. Contrast: 25 mL of Isovue-370 Procedure in detail: The procedure, risks, and possible complications were explained to the patient/proxy in detail, and informed consent was obtained. The patient was placed prone on the procedure table. Group Director Experience radiograph of the pelvis was obtained which showed the existing 14 [place] pigtail drainage catheter. Contrast was hand injected through the existing catheter and abscessogram/tube check was performed, which demonstrated mild resistance, concerning for catheter clogging. Catheterogram demonstrates residual fluid collection with opacification of the colon. Given these imaging findings, the decision was made to keep the catheter in place. Jin feculent content was aspirated back. The patient tolerated the procedure well and was transferred to the holding area in stable condition. There were no immediate complications associated with the procedure. Procedure Note Jennifer Ruiz, - 04/02/2025 PROCEDURE: IR FISTULA OR SINUS TRACT STUDY DATE/TIME OF EXAM: 04/01/2025 4:42 PM CLINICAL INFORMATION: None relevant/not provided if blank. Indication: K57.80: Diverticulitis of intestine with abscess,unspecified bleeding status, unspecified part of intestinal tract History: 74-year-old female with history of diverticulitis status post drain placement at outside hospital, presenting for drain check and possible exchange. Operators: 1.Dr. Ruiz, Attending Physician Anesthesia: 50 mcg of fentanyl Procedure: 1.Fluoroscopy-guided abscessogram/tube check through the existing 14French pigtail drainage catheter in the presacral fluid collection. Contrast: 25 mL of Isovue-370 Procedure in detail: The procedure, risks, and possible complications were explained to the patient/proxy in detail, and informed consent was obtained. The patientwas placed prone on the procedure table. Group Director Experience radiograph of the pelvis was obtained which showed the existing 14 [place] pigtail drainage catheter. Contrast was hand injected through the existing catheter and abscessogram/tube check was performed, which demonstrated mildresistance, concerning for catheter clogging. Catheterogram demonstrates residualfluid collection with opacification of the colon. Given these imagingfindings, the decision was made to keep the catheter in place. Jin feculentcontent was aspirated back. The patient tolerated the procedure well and was transferred to theholding area in stable condition. There were no immediate complicationsassociated with the procedure. Impression: Fluoroscopy-guided tube check through the existing pigtail drainage catheter in the presacral region showed persistent fluid collection with colonic fistulization. I, Dr. Jennifer Ruiz performed/was present throughout the procedure. > Interpreting Provider: Jennifer Ruiz MD on 04/02/2025 9:55 AM Aminata Cervantes MD IR ORDERABLES Final Result * XR CHEST POST PICC (04/01/2025 10:56 AM CDT) Anatomical Region Laterality Modality Chest Radiographic Ashia ging Impressions 04/01/2025 11:03 AM CDT IMPRESSION: As above. > Interpreting Provider: Jose Rosen MD on 04/01/2025 11:03 AM Narrative 04/01/2025 11:03 AM CDT PROCEDURE: XR CHEST 1VW PORTABLE DATE/TIME OF EXAM: 04/01/2025 10:57 AM CLINICAL INFORMATION: None relevant/not provided if blank. Indication: Z95.828: S/P PICC central line placement Additional History: COMPARISON: 03/24/2025 FINDINGS: Hazy bibasilar opacities likely reflecting small effusions and associated atelectasis/airspace disease. The pulmonary vasculature is upper limits of normal. No pneumothorax. The visible cardiomediastinal silhouette is stable. A right midline catheter tip overlies the expected subclavian vein. Joanie Rojas MD DIAGNOSTIC IMAGING ORDERABLES Edited Result - Final * MRI Pelvis Wwo Contrast (03/31/2025 3:26 AM CDT) Anatomical Region Laterality Modality Pelvis Magnetic Resonan ce 03/31/2025 12:2 2 PM CDT Impressions 03/31/2025 2:16 PM CDT IMPRESSION: 1.Limited study for evaluation of a neoplastic process concurrently with the known infectious/inflammatory changes. However, circumferential wall thickening of the distal 3.4 cm length of sigmoid in my opinion is slightly different than the inflammatory circumferential wall thickening of the remainder of the sigmoid and may represent a neoplastic process. This needs to confirm colonoscopically or surgically. 2.A rectal mass is not identified by certainty. 3.The subcutaneous abscess in right buttock is new from the prior study and is probably iatrogenic. See text. 4.The large collection of air and fluid in the right hemipelvis is most likely the abscess. The tip of the drain is in the presacral region of this abscess. > Interpreting Provider: Talat Flores MD on 03/31/2025 2:16 PM Narrative 03/31/2025 2:16 PM CDT PROCEDURE: MRI PELVIS WWO CONTRAST DATE/TIME OF EXAM: 03/31/2025 3:26 AM CLINICAL INFORMATION: None relevant/not provided if blank. Indication: K57.80: Diverticulitis of intestine with abscess, unspecified bleeding status, unspecified part of intestinal tract Additional History: CONTRAST: GADOTERATE MEGLUMINE 0.5 MMOL/ML IV SSM SO:20 mL MRI PELVIS WITHOUT AND WITH CONTRAST HISTORY: Diverticulitis of intestine seen with abscess. Possible rectal malignancy. COMPARISON: CT abdomen and pelvis with contrast, 03/25/2025. TECHNIQUE: Multiplanar, multisequence MR imaging of the pelvis was performed before and also intravenous administration of 20 mL Dotarem. FINDINGS: Evaluation of a neoplastic process on this examination with the known existing significant inflammatory changes is limited. There is focal circumferential wall thickening of the distal sigmoid wall in an area measuring about 3.4 cm in length, proximal to the rectosigmoid junction which may correlate with an infiltrative neoplastic process in the ledesma of sigmoid. However, this should be confirmed with colonoscopy and biopsy when possible. The remainder of the circumferential wall thickening of the sigmoid is probably due to inflammatory changes secondary to apparent diverticulitis and perforation. The diffusion-weighted images and ADC map do not demonstrate a definite area of restricted diffusion in the retroperitoneal or intraperitoneal imaged portion of the pelvis. There is however an extraluminal collection of air and fluid in the right hemipelvis is present on the right lateral aspect of the sigmoid and rectum measuring at least 13 cm in length. The tip of the pigtail catheter is in dependent portion of this collection in the presacral region. The postcontrast images demonstrates extensive enhancement of this region including ARDS margin, but its content also slightly enhances. A subcutaneous abscess in the right buttock which is developed since the previous CT examination and is associated with restricted diffusion rim enhancement and central fluid intensity. It measures 6.6 x 1.8 cm in maximum length and width. A portion of this abscess is in contact with the presacral drain in the subcutaneous fat and gluteal region (series 11, image 31) and therefore, the abscess may be iatrogenic related to the drain. The marrow signal intensity is normal. There is no visible myositis. Procedure Note Talat Flores MD - 03/31/2025 PROCEDURE: MRI PELVIS WWO CONTRAST DATE/TIME OF EXAM: 03/31/2025 3:26 AM CLINICAL INFORMATION: None relevant/not provided if blank. Indication: K57.80: Diverticulitis of intestine with abscess,unspecified bleeding status, unspecified part of intestinal tract Additional History: CONTRAST: GADOTERATE MEGLUMINE 0.5 MMOL/ML IV SSM SO:20 mL MRI PELVIS WITHOUT AND WITH CONTRAST HISTORY: Diverticulitis of intestine seen with abscess. Possible rectal malignancy. COMPARISON: CT abdomen and pelvis with contrast, 03/25/2025. TECHNIQUE: Multiplanar, multisequence MR imaging of the pelvis was performed before and also intravenous administration of 20 mL Dotarem. FINDINGS: Evaluation of a neoplastic process on this examination with the known existing significant inflammatory changes is limited. There is focal circumferential wall thickening of the distal sigmoid wall in an area measuring about 3.4 cm in length, proximal to the rectosigmoid junction which may correlate with an infiltrative neoplastic process in the wallsof sigmoid. However, this should be confirmed with colonoscopy and biopsywhen possible. The remainder of the circumferential wall thickening of the sigmoid is probably due to inflammatory changes secondary to apparent diverticulitis and perforation. The diffusion-weighted images and ADC map do not demonstrate a definite area of restricted diffusion in the retroperitoneal or intraperitoneal imaged portion of the pelvis. There is however an extraluminalcollection of air and fluid in the right hemipelvis is present on the right lateral aspect of the sigmoid and rectum measuring at least 13 cm in length. The tip of the pigtail catheter is in dependent portion of this collectionin the presacral region. The postcontrast images demonstrates extensive enhancement of this region including ARDS margin, but its content also slightly enhances. A subcutaneous abscess in the right buttock which is developed since the previous CT examination and is associated with restricted diffusion rim enhancement and central fluid intensity. It measures 6.6 x 1.8 cm in maximum length and width. A portion of this abscess is in contact withthe presacral drain in the subcutaneous fat and gluteal region (series 11, image 31) and therefore, the abscess may be iatrogenic related to the drain. The marrow signal intensity is normal. There is no visible myositis. IMPRESSION: 1.Limited study for evaluation of a neoplastic process concurrently with the known infectious/inflammatory changes. However, circumferential wall thickening of the distal 3.4 cm length of sigmoid in my opinion isslightly different than the inflammatory circumferential wall thickening of the remainder of the sigmoid and may represent a neoplastic process. Thisneeds to confirm colonoscopically or surgically. 2.A rectal mass is not identified by certainty. 3.The subcutaneous abscess in right buttock is new from the prior studyand is probably iatrogenic. See text. 4.The large collection of air and fluid in the right hemipelvis is most likely the abscess. The tip of the drain is in the presacral region ofthis abscess. > Interpreting Provider: Talat Flores MD on 03/31/2025 2:16 PM Aminata Cervantes MD MR ORDERABLES Final Result * CT Chest W Contrast (03/30/2025 4:15 PM CDT) Anatomical Region Laterality Modality Chest Computed Tomogra phy 03/30/2025 4:24 PM CDT Impressions 03/30/2025 4:29 PM CDT IMPRESSION: 1. No evidence of metastatic disease in the chest as the right greater than left effusions do not have other features to suggest malignant effusions. 2. Complete right lower lobe collapse adjacent to the effusion. > Interpreting Provider: Jose Rosen MD on 03/30/2025 4:29 PM Narrative 03/30/2025 4:29 PM CDT PROCEDURE: CT CHEST W CONTRAST DATE/TIME OF EXAM: 03/30/2025 4:15 PM CLINICAL INFORMATION: None relevant/not provided if blank. Indication: K57.80: Diverticulitis of intestine with abscess, unspecified bleeding status, unspecified part of intestinal tract Additional History: COMPARISON: Abdominal CT performed 03/25/2025 TECHNIQUE: CT of the chest was performed following intravenous contrast utilizing standard protocol. CT dose reduction technique was used, including Automated Exposure Control. CONTRAST: IOPAMIDOL 76 % IV SOLN:80 mL FINDINGS: LUNGS: Small to moderate right greater than left pleural effusions and adjacent atelectasis including complete collapse of the right lower lobe. Few calcified granulomas in the lung bases. HEART/OTHER VESSELS: Thoracic aorta is moderately atherosclerotic but normal in caliber. Main pulmonary artery is enlarged. Qualitatively mild coronary atherosclerotic calcification. MEDIASTINUM/MARISSA: No enlarged lymph nodes. Calcified left hilar lymph nodes. CHEST WALL/LOWER NECK: Numerous subacute to chronic bilateral anterior rib fractures. Healed upper sternal body fracture. UPPER ABDOMEN: Numerous splenic granulomas. Procedure Note Jose Rosen MD - 03/30/2025 PROCEDURE: CT CHEST W CONTRAST DATE/TIME OF EXAM: 03/30/2025 4:15 PM CLINICAL INFORMATION: None relevant/not provided if blank. Indication: K57.80: Diverticulitis of intestine with abscess,unspecified bleeding status, unspecified part of intestinal tract Additional History: COMPARISON: Abdominal CT performed 03/25/2025 TECHNIQUE: CT of the chest was performed following intravenous contrast utilizing standard protocol. CT dose reduction technique was used, including Automated ExposureControl. CONTRAST: IOPAMIDOL 76 % IV SOLN:80 mL FINDINGS: LUNGS: Small to moderate right greater than left pleural effusions and adjacent atelectasis including complete collapse of the right lowerlobe. Few calcified granulomas in the lung bases. HEART/OTHER VESSELS: Thoracic aorta is moderately atherosclerotic but normal in caliber. Main pulmonary artery is enlarged. Qualitatively mild coronary atherosclerotic calcification. MEDIASTINUM/MARISSA: No enlarged lymph nodes. Calcified left hilar lymph nodes. CHEST WALL/LOWER NECK: Numerous subacute to chronic bilateral anteriorrib fractures. Healed upper sternal body fracture. UPPER ABDOMEN: Numerous splenic granulomas. IMPRESSION: 1. No evidence of metastatic disease in the chest as the right greaterthan left effusions do not have other features to suggest malignanteffusions. 2. Complete right lower lobe collapse adjacent to the effusion. > Interpreting Provider: Jose Rosen MD on 03/30/2025 4:29 PM us Aminata Cervantes MD CT ORDERABLES Final Result * ECHO LANA COMPLETE W BUBBLE STUDY (03/29/2025 2:27 PM CDT) Anatomical Region Laterality Modality Ultrasound 03/29/2025 1:22 PM CDT Narrative 03/29/2025 4:12 PM CDT Summary * Left ventricular systolic function is low normal with an estimated ejection fraction of 50-55% by visual estimate. * The left ventricle is normal in size, with low normal systolic function. * There is mildly increased left ventricular wall thickness. * Right ventricle is normal in size with normal systolic function. * The left atrium is dilated. * The right atrium is dilated. * Agitated saline contrast study at rest and with Valsalva is positive for a small intracardiac shunt. * No thrombi, masses, or vegetations are present. Patient Info Name: Bharti Neal Age: 74 years : 1950 Gender: Female Ht: 66 in Wt: 207 lb BSA: 2.13 m2 BP: 115 / 59 mmHg Exam Date: 03/29/2025 1:22 PM Patient Status: I/P Study Site: [facility] Primary Location: [facility] EStudy Info Exam Type: ECHO LANA COMPLETE W BUBBLE STUDY Indications R78.81 - Bacteremia B49 - Fungemia Contrast/Agitated Saline Contrast / Saline: Agitated Saline Amount: --- ml * A complete transesophageal echo was performed using 2D, color Doppler, and spectral Doppler. Staff Referring Physician: Martinez Alex Ordering Provider: Martinez Alex Attending Physician: Martinez Alex Design Maintenance Engineer: Joshua Reyes Nurse: Kem Leal Performing Physician: Martinez Alex Medications * Moderate sedation was monitored by the performing physician, see EMR for full details. A nurse administered the sedation under the supervision of a physician. Procedure Details The patient arrived in a fasting state after obtaining informed consent. The transesophageal probe was passed without difficulty into the posterior pharynx, mid-esophagus, distal esophagus, and gastric fundus. Imaging was performed at multiple levels. The patient tolerated the procedure well and there were no complications. The patient was transferred out of the examination area in satisfactory condition. Left Ventricle The left ventricle is normal in size. Left ventricular systolic function is low normal. There is mildly increased left ventricular wall thickness. Left ventricular segmental wall motion is normal. Left ventricular systolic function is low normal with an estimated ejection fraction of 50-55% by visual estimate. Right Ventricle The right ventricle is normal in size. Right ventricular systolic function is normal. Left Atrium The left atrium is dilated. Right Atrium The right atrium is dilated. Atrial Septum Patent foramen ovale visualized by 2D and color Doppler and agitated saline imaging. Agitated saline contrast study at rest and with Valsalva is positive for a small intracardiac shunt. Atrial Appendage The left atrial appendage is normal in shape with normal velocity, and there is no thrombus. Aortic Valve The aortic valve is trileaflet. There is no aortic valve stenosis. There is no aortic valve regurgitation. Lambl's excrescence present. Pulmonic Valve The pulmonic valve is normal. There is no pulmonic valve stenosis. There is trace pulmonic regurgitation. Mitral Valve The mitral valve is normal. There is no mitral valve stenosis. There is trace mitral valve regurgitation. Tricuspid Valve The tricuspid valve is normal. There is no tricuspid valve stenosis. There is trace tricuspid valve regurgitation. Pericardium/Pleural There is no pericardial effusion. Aorta The aortic root at the sinus of Valsalva is normal in size. The ascending aorta is normal in size. Report Signatures Finalized by Martinez Alex on 03/29/2025 04:12 PM Procedure Note Martinez Alex MD - 03/29/2025 Summary * Left ventricular systolic function is low normal with an estimated ejection fraction of 50-55% by visual estimate. * The left ventricle is normal in size, with low normal systolicfunction. * There is mildly increased left ventricular wall thickness. * Right ventricle is normal in size with normal systolic function. * The left atrium is dilated. * The right atrium is dilated. * Agitated saline contrast study at rest and with Valsalva is positivefor a small intracardiac shunt. * No thrombi, masses, or vegetations are present. Patient Info Name: Bharti Neal Age: 74 years : 1950 Gender: Female Ht: 66 in Wt: 207 lb BSA: 2.13 m2 BP: 115 / 59 mmHg Exam Date: 03/29/2025 1:22 PM Patient Status: I/P Study Site: [facility] Primary Location: [facility] EStudy Info Exam Type: ECHO LANA COMPLETE W BUBBLE STUDY Indications R78.81 - Bacteremia B49 - Fungemia Contrast/Agitated Saline Contrast / Saline: Agitated Saline Amount: --- ml * A complete transesophageal echo was performed using 2D, color Doppler,and spectral Doppler. Staff Referring Physician: Martinez Alex Ordering Provider: Martinez Alex Attending Physician: Martinez Alex Design Maintenance Engineer: Joshua Reyes Nurse: Kem Leal Performing Physician: Martinez Alex Medications * Moderate sedation was monitored by the performing physician, see EMRfor full details. A nurse administered the sedation under the supervision ofa physician. Procedure Details The patient arrived in a fasting state after obtaining informedconsent. The transesophageal probe was passed without difficulty into theposterior pharynx, mid-esophagus, distal esophagus, and gastric fundus. Imagingwas performed at multiple levels. The patient tolerated the procedure welland there were no complications. The patient was transferred out of the examination area in satisfactory condition. Left Ventricle The left ventricle is normal in size. Left ventricular systolic functionis low normal. There is mildly increased left ventricular wall thickness.Left ventricular segmental wall motion is normal. Left ventricular systolic function is low normal with an estimated ejection fraction of 50-55% byvisual estimate. Right Ventricle The right ventricle is normal in size. Right ventricular systolicfunction is normal. Left Atrium The left atrium is dilated. Right Atrium The right atrium is dilated. Atrial Septum Patent foramen ovale visualized by 2D and color Doppler and agitatedsaline imaging. Agitated saline contrast study at rest and with Valsalva ispositive for a small intracardiac shunt. Atrial Appendage The left atrial appendage is normal in shape with normal velocity, andthere is no thrombus. Aortic Valve The aortic valve is trileaflet. There is no aortic valve stenosis. Thereis no aortic valve regurgitation. Lambl's excrescence present. Pulmonic Valve The pulmonic valve is normal. There is no pulmonic valve stenosis. Thereis trace pulmonic regurgitation. Mitral Valve The mitral valve is normal. There is no mitral valve stenosis. Thereis trace mitral valve regurgitation. Tricuspid Valve The tricuspid valve is normal. There is no tricuspid valve stenosis.There is trace tricuspid valve regurgitation. Pericardium/Pleural There is no pericardial effusion. Aorta The aortic root at the sinus of Valsalva is normal in size. Theascending aorta is normal in size. Report Signatures Finalized by Martinez Alex on 03/29/2025 04:12 PM us Martinez Alex MD ECHO CUPID Final Result * CCL PAINT TESTER DIAGNOSTIC LANA (03/29/2025 2:00 PM CDT) Anatomical Region Laterality Modality X-Ray Angiograph y Narrative 03/29/2025 2:14 PM CDT This case was auto-finalized by a system utility. The result for this LANA exam is stored on the other LANA procedure. Please see the other line in chart review for the result. Martinez Alex MD CV CARDIAC CATH CUPID PROCS Fi nal Result * (ABNORMAL) OCCULT BLOOD FECES (03/28/2025 5:13 AM CDT) Pathologist [facility] Occult Blood Positive(A ) Negative 03/28/2025 6:04 AM CDT [facility] Stool STOOL SPECIMEN / Unknown Collection / Unknown 03/28/2025 5:13 AM CDT 03/28/2025 6:03 AM CDT Sugar Schwartz DO LAB - BODY FLUID ORDERABLES Fi nal Result [facility] [address] [place] [id number] * CULTURE BLOOD (03/26/2025 12:26 PM CDT) Only the most recent of4 resultswithin the time period is included. Culture No growth day 5 MACIEL 03/31/2025 5:31 PM CDT [facility] Blood PERIPHERAL BLOOD / Unknown Lab Venipuncture / Unknown 03/26/2025 12:26 PM CDT 03/26/2025 12:43 PM CDT Kimberly Araiza MD LAB - MICROBIOLOGY ORDERABLES Fi nal Result Performing Organization Address City/[facility]/ZIP Co de Phone Number [facility] [address] [place] [address], [facility] [phone] * TSH REFLEX FREE T4 (03/26/2025 3:33 AM CDT) TSH 0.971 0.350 - 4.940 uIU/mL 03/26/2025 4:54 AM CDT [facility] Blood BLOOD SPECIMEN / Unknown Line Draw / Unknown 03/26/2025 3:33 AM CDT 03/26/2025 3:50 AM CDT Sugar Schwartz DO LAB - CHEMISTRY ORDERABLES Fin al Result Performing Organization Address [facility] de Phone Number [facility] [address] [place], [place] [id number] * CANCER ANTIGEN (CA) 19-9 (03/26/2025 3:33 AM CDT) CA 19-9 16.8 <=35.0 U/mL 03/26/2025 5:43 AM CDT [facility] Blood BLOOD SPECIMEN / Unknown Line Draw / Unknown 03/26/2025 3:33 AM CDT 03/26/2025 3:50 AM CDT Narrative [facility] - 03/26/2025 5:43 AM CDT [employer] chemiluminescent microparticle immunoassay (CMIA) Values obtained with different assay methods or kits cannot be used interchangeably. Results cannot be interpreted as absolute evidence of the presence or absence of malignant disease. Sugar Schwartz DO LAB - CHEMISTRY ORDERABLES Fin al Result Performing Organization Address [facility]/ZIP Co de Phone Number [facility] [address] [place] [phone] * (ABNORMAL) FOLATE (03/26/2025 3:33 AM CDT) Folate 5.5(L) 7.0 - 31.4 ng/mL 03/26/2025 4:54 AM CDT [facility] Blood BLOOD SPECIMEN / Unknown Line Draw / Unknown 03/26/2025 3:33 AM CDT 03/26/2025 3:50 AM CDT Sugar Schwarzt LAB - CHEMISTRY ORDERABLES Fin al Result Performing Organization Address [facility]/ZIP Co de Phone Number [facility] [address] [place] [phone] * (ABNORMAL) VITAMIN B12 (03/26/2025 3:33 AM CDT) Pathologist [facility] Vitamin B12 1,070(H) 213 - 816 pg/mL 03/26/2025 4:54 AM CDT [facility] Blood BLOOD SPECIMEN / Unknown Line Draw / Unknown 03/26/2025 3:33 AM CDT 03/26/2025 3:50 AM CDT Sugar Schwartz DO LAB - CHEMISTRY ORDERABLES Fin al Result Performing Organization Address [facility]/ZIP Co de Phone Number [facility] [address] [place] [phone] * (ABNORMAL) IRON + TRANSFERRIN PANEL (03/26/2025 3:33 AM CDT) Pathologist [facility] Iron 15(L) 40 - 150 ug/dL 03/26/2025 4:29 AM CDT [facility] Transferrin 64(L) 174 - 382 mg/dL 03/26/2025 4:29 AM CDT [facility] TIBC Calculated 80(L) 240 - 450 ug/dL 03/26/2025 4:29 AM CDT [facility] Iron Saturation % 19(L) 20 - 50 % 03/26/2025 4:29 AM CDT [facility] Blood BLOOD SPECIMEN / Unknown Line Draw / Unknown 03/26/2025 3:33 AM CDT 03/26/2025 3:50 AM CDT us Sugar Schwartz DO LAB - CHEMISTRY ORDERABLES Fin al Result Performing Organization Address [facility] Co de Phone Number [facility] [address] [place] [address] * (ABNORMAL) CEA BLOOD (03/26/2025 3:33 AM CDT) Pathologist [facility] CEA 159.0(H) 0.0 - 4.7 ng/mL 03/27/2025 4:07 AM CDT [facility] ([facility]) Comment: Nonsmokers <3.9 Smokers <5.6 [employer] Electrochemiluminescence Immunoassay (ECLIA) Values obtained with different assay methods or kits cannot be used interchangeably. Results cannot be interpreted as absolute evidence of the presence or absence of malignant disease. Blood BLOOD SPECIMEN / Unknown Line Draw / Unknown 03/26/2025 3:33 AM CDT 03/26/2025 3:50 AM CDT Narrative [facility] ([facility]) - 03/27/2025 4:07 AM CDT Performed at: [address] [place] [id number] [employer] Consultant: Everardo De Leon PhD, Phone: [phone] us Sugar Schwartz DO LAB - CHEMISTRY ORDERABLES Fin al Result Performing Organization Address City/[facility] Co de Phone Number [facility] ([facility]) [address] [place] [address] * ECHO COMPLETE W CONTRAST (03/25/2025 1:30 PM CDT) AV area index 1.422 cm /m [facility] FUJI PACS Dimensionless Index 0.963 unitless [facility] CV FUJI PACS LA area A4C 19.4 cm [facility] FUJI PACS LA AREA (2C) 20.7 cm [facility] CV FUJI PACS Myocardial strain charge 2 unitless [facility] CV FUJI PACS LVOT diam 1.999 cm [facility] CV FUJ I PACS LVOT pk grad 3.164 mmHg [facility] CV FUJI PACS LVOT pk armen 88.935 cm/s [facility] CV F UJI PACS LVOT VTI 18.179 cm [facility] CV FUJ I PACS AV area pk armen 3.297 cm [facility] CV FUJI PACS AV area cont VTI 3.023 cm [facility] CV FUJI PACS AV pk grad 2.867 mmHg [facility] CV FU JI PACS AV mn grad 1.997 mmHg [facility] CV FU JI PACS AV pk armen 84.658 cm/s [facility] CV FUJ I PACS AV VTI 18.871 cm [facility] CV FUJ I PACS MV A pk armen 0.48 cm/s [facility] CV F UJI PACS MV E pk armen 88.838 cm/s [facility] CV F UJI PACS PV pk armen 79.623 cm/s [facility] CV FUJ I PACS Anatomical Region Laterality Modality Ultrasound 03/25/2025 12:5 0 PM CDT Narrative 03/25/2025 7:15 PM CDT Summary * The left ventricle is normal in size with normal systolic function and an estimated ejection fraction of 60-65% by visual estimate. Left ventricular wall motion is normal. * There is moderate asymmetric septal left ventricular wall thickness. * The left ventricular diastolic function is indeterminate. * Right ventricle is dilated with normal systolic function. * The pulmonary artery systolic pressure is normal, 33 mmHg. * There is < 50% collapse of the IVC upon inspiration with an estimated right atrial pressure of 15 mmHg. * There is mild tricuspid valve regurgitation. Patient Info Name: Bharti Neal Age: 74 years : 1950 Gender: Female Ht: 66 in Wt: 207 lb BSA: 2.13 m2 HR: 100 bpm BP: 129 / 84 mmHg Exam Date: 03/25/2025 12:50 PM Patient Status: I/P Study Site: [facility] Primary Location: [facility] EStudy Info Exam Type: ECHO COMPLETE W CONTRAST Indications I50.33 - Acute on chronic heart failure with preserved ejection fraction (HCC) Procedure(s) * A complete 2D, color Doppler, spectral Doppler, and M-Mode transthoracic echocardiogram was performed. * An Ultrasound Enhancing Agent (UEA) was utilized to enhance endocardial definition, opacify the left ventricle and further assess left ventricular function and wall motion. Staff Referring Physician: Sugar Schwartz Ordering Provider: Sugar Schwartz Attending Physician: Sugar Schwartz Design Maintenance Engineer: Joshua Reyes Left Ventricle The left ventricle is normal in size. Left ventricular systolic function is normal with an estimated ejection fraction of 60-65% by visual estimate. There is moderate asymmetric septal left ventricular wall thickness. The left ventricular mass is normal. Left ventricular segmental wall motion is normal. The left ventricular diastolic function is indeterminate. Diastolic function is indeterminate due to an abnormal rhythm. Right Ventricle The right ventricle is dilated. Right ventricular systolic function is normal. Left Atrium The left atrium is normal in size. Right Atrium The right atrium is normal in size. Atrial Septum Intact interatrial septum visualized by 2D and color Doppler imaging. Aortic Valve The aortic valve is trileaflet. There is no aortic valve stenosis. There is trace aortic valve regurgitation. Pulmonic Valve The pulmonic valve is normal. There is no pulmonic valve stenosis. There is mild pulmonic regurgitation. Mitral Valve The mitral valve is normal. There is no mitral valve stenosis. There is trace mitral valve regurgitation. Tricuspid Valve The tricuspid valve is normal. There is no tricuspid valve stenosis. There is mild tricuspid valve regurgitation. The pulmonary artery systolic pressure is normal, 33 mmHg. Inferior Vena Cava The inferior vena cava is dilated (> 2.1 cm). There is < 50% collapse of the IVC upon inspiration with an estimated right atrial pressure of 15 mmHg. Pericardium/Pleural There is no pericardial effusion. Aorta The aortic root at the sinus of Valsalva is normal in size. The ascending aorta is normal in size. Measurements Left Ventricular Outflow Tract Name Value Normal LVOT 2D LVOT Diameter 2.0 cm LVOT Area 3.1 cm2 LVOT Doppler LVOT Peak Velocity 0.9 m/s LVOT Peak Gradient 3 mmHg LVOT Mean Velocity 71.27 cm/s LVOT Mean Gradient 2 mmHg LVOT VTI 18.2 cm LVOT VTI/AV VTI Ratio 1.0 LVOT Stroke Volume 57 ml LVOT Stroke Volume Index 27 ml/m2 35-58 LVOT CO 5.7 l/min LVOT CI 2.7 l/min/m2 Pulmonic Valve Name Value Normal PV Doppler PV Peak Velocity 0.8 m/s PV Peak Gradient 3 mmHg PV Accel Time 81.33 ms Mitral Valve Name Value Normal MV Doppler MV PHT 48 ms MV Area (PHT) 4.58 cm2 4.00-5.00 MV Diastolic Function MV E Peak Velocity 0.9 m/sec MV A Peak Velocity 0.0 m/sec MV E/A 185.1 MV Decel Time (PW) 165 ms Tricuspid Valve Name Value Normal Estimated PAP/RSVP RA Pressure 15 mmHg <=5 PA Systolic Pressure 33 mmHg <35 Aorta Name Value Normal Ascending Aorta Ao Root Diameter (2D) 3.3 cm Ao Root Diam Index (2D) 1.5 cm/m2 Aortic Valve Name Value Normal AV Doppler AV Peak Velocity 0.85 m/s AV Peak Gradient 3 mmHg AV Mean Gradient 2 mmHg AV VTI 19 cm AV Area (Cont Eq VTI) 3.02 cm2 >=2.00 AV Area (Cont Eq Armen) 3.30 cm2 AV DI (VTI) 0.96 AV DI (Armen) 1.05 AV Regurgitation 2D LVOT Area 3.14 cm2 Atria Name Value Normal LA Dimensions LA Area (4C) 19 cm2 LA Area (2C) 21 cm2 LA Volume (4C MOD) 50 ml LA Volume (2C MOD) 60 ml LA Volume (4C A-L) 58 ml LA Volume (2C A-L) 64 ml LA Volume (BP A-L) 61 ml LA Volume Index (BP A-L) 29 ml/m2 16-34 Report Signatures Finalized by Martinez Alex on 03/25/2025 07:15 PM Procedure Note Martinez Alex MD - 03/25/2025 Summary * The left ventricle is normal in size with normal systolic function andan estimated ejection fraction of 60-65% by visual estimate. Leftventricular wall motion is normal. * There is moderate asymmetric septal left ventricular wall thickness. * The left ventricular diastolic function is indeterminate. * Right ventricle is dilated with normal systolic function. * The pulmonary artery systolic pressure is normal, 33 mmHg. * There is < 50% collapse of the IVC upon inspiration with anestimated right atrial pressure of 15 mmHg. * There is mild tricuspid valve regurgitation. Patient Info Name: Bharti Neal Age: 74 years : 1950 Gender: Female Ht: 66 in Wt: 207 lb BSA: 2.13 m2 HR: 100 bpm BP: 129 / 84 mmHg Exam Date: 03/25/2025 12:50 PM Patient Status: I/P Study Site: [facility] Primary Location: [facility] EStudy Info Exam Type: ECHO COMPLETE W CONTRAST Indications I50.33 - Acute on chronic heart failure with preserved ejectionfraction (HCC) Procedure(s) * A complete 2D, color Doppler, spectral Doppler, and M-Modetransthoracic echocardiogram was performed. * An Ultrasound Enhancing Agent (UEA) was utilized to enhanceendocardial definition, opacify the left ventricle and further assess leftventricular function and wall motion. Staff Referring Physician: Sugar Schwartz Ordering Provider: Sugar Schwartz Attending Physician: Sugar Schwartz Design Maintenance Engineer: Joshua Reyes Left Ventricle The left ventricle is normal in size. Left ventricular systolic functionis normal with an estimated ejection fraction of 60-65% by visual estimate.There is moderate asymmetric septal left ventricular wall thickness. The left ventricular mass is normal. Left ventricular segmental wall motion isnormal. The left ventricular diastolic function is indeterminate. Diastolicfunction is indeterminate due to an abnormal rhythm. Right Ventricle The right ventricle is dilated. Right ventricular systolic function is normal. Left Atrium The left atrium is normal in size. Right Atrium The right atrium is normal in size. Atrial Septum Intact interatrial septum visualized by 2D and color Doppler imaging. Aortic Valve The aortic valve is trileaflet. There is no aortic valve stenosis. Thereis trace aortic valve regurgitation. Pulmonic Valve The pulmonic valve is normal. There is no pulmonic valve stenosis. Thereis mild pulmonic regurgitation. Mitral Valve The mitral valve is normal. There is no mitral valve stenosis. Thereis trace mitral valve regurgitation. Tricuspid Valve The tricuspid valve is normal. There is no tricuspid valve stenosis.There is mild tricuspid valve regurgitation. The pulmonary artery systolicpressure is normal, 33 mmHg. Inferior Vena Cava The inferior vena cava is dilated (> 2.1 cm). There is < 50% collapse ofthe IVC upon inspiration with an estimated right atrial pressure of 15 mmHg. Pericardium/Pleural There is no pericardial effusion. Aorta The aortic root at the sinus of Valsalva is normal in size. Theascending aorta is normal in size. Measurements Left Ventricular Outflow Tract Name Value Normal LVOT 2D LVOT Diameter 2.0 cm LVOT Area 3.1 cm2 LVOT Doppler LVOT Peak Velocity 0.9 m/s LVOT Peak Gradient 3 mmHg LVOT Mean Velocity 71.27 cm/s LVOT Mean Gradient 2 mmHg LVOT VTI 18.2 cm LVOT VTI/AV VTI Ratio 1.0 LVOT Stroke Volume 57 ml LVOT Stroke Volume Index 27 ml/m2 35-58 LVOT CO 5.7 l/min LVOT CI 2.7 l/min/m2 Pulmonic Valve Name Value Normal PV Doppler PV Peak Velocity 0.8 m/s PV Peak Gradient 3 mmHg PV Accel Time 81.33 ms Mitral Valve Name Value Normal MV Doppler MV PHT 48 ms MV Area (PHT) 4.58 cm2 4.00-5.00 MV Diastolic Function MV E Peak Velocity 0.9 m/sec MV A Peak Velocity 0.0 m/sec MV E/A 185.1 MV Decel Time (PW) 165 ms Tricuspid Valve Name Value Normal Estimated PAP/RSVP RA Pressure 15 mmHg <=5 PA Systolic Pressure 33 mmHg <35 Aorta Name Value Normal Ascending Aorta Ao Root Diameter (2D) 3.3 cm Ao Root Diam Index (2D) 1.5 cm/m2 Aortic Valve Name Value Normal AV Doppler AV Peak Velocity 0.85 m/s AV Peak Gradient 3 mmHg AV Mean Gradient 2 mmHg AV VTI 19 cm AV Area (Cont Eq VTI) 3.02 cm2 >=2.00 AV Area (Cont Eq Armen) 3.30 cm2 AV DI (VTI) 0.96 AV DI (Armen) 1.05 AV Regurgitation 2D LVOT Area 3.14 cm2 Atria Name Value Normal LA Dimensions LA Area (4C) 19 cm2 LA Area (2C) 21 cm2 LA Volume (4C MOD) 50 ml LA Volume (2C MOD) 60 ml LA Volume (4C A-L) 58 ml LA Volume (2C A-L) 64 ml LA Volume (BP A-L) 61 ml LA Volume Index (BP A-L) 29 ml/m2 16-34 Report Signatures Finalized by Martinez Alex on 03/25/2025 07:15 PM Sugar Schwartz DO ECHO CUPID Final Result * VANCOMYCIN LEVEL TROUGH (03/25/2025 11:43 AM CDT) Pathologist [facility] Vancomycin Trough 16.6 10.0 - 20.0 ug/mL 03/25/2025 12:36 PM CDT [facility] Blood BLOOD SPECIMEN / Unknown Venipuncture / Unknown 03/25/2025 11:43 AM CDT 03/25/2025 12:07 PM CDT Joanie Rojas MD LAB - CHEMISTRY ORDERABLES Fi nal Result [facility] [address] [place] [address] * CT Abdomen Pelvis W Contrast (03/25/2025 10:24 AM CDT) Anatomical Region Laterality Modality Abdomen, Pelvis Computed Tomogra phy 03/25/2025 10:4 5 AM CDT Impressions 03/25/2025 11:03 AM CDT IMPRESSION: 1. Soft tissue thickening in the perirectal region with extraluminal contrast material and gas, which appears to be related related to a perforation of the rectosigmoid junction. There is also contrast material in bladder from urinary excretion, but the extraluminal contrast is in closer association with the rectum that the bladder. 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 No prior images are available for comparison but on current study, findings would be concerning for possible rectal mass, but this may be indicated to inflammatory response in the region. Recommend correlation with prior imaging. 2. Rim-enhancing fluid collection extending from the pigtail catheter through the right gluteal muscle over an area of approximately 13.9 x 2.7 cm. 3. Gas within the endometrium, which may be due to a fistula with the rectum though this is not directly visualized. 4. Partially decompressed bladder with intraluminal gas, likely related to instrumentation. 5. Distended gallbladder with multiple gallstones. There are stones in the region of the gallbladder neck with some edema adjacent to the gallbladder. Recommend correlation for acute cholecystitis. 6. Pelvic lymphadenopathy. 7. 5.0 x 3.6 x 3.8 cm right adrenal mass. A small focus of macroscopic fat favors benignity. However, given size, recommend follow-up MRI for further characterization. 8. Large bilateral pleural effusions with partial bilateral lower lobe collapse. > Interpreting Provider: Jada Richardson MD on 03/25/2025 11:03 AM Narrative 03/25/2025 11:03 AM CDT PROCEDURE: CT ABDOMEN PELVIS W CONTRAST DATE/TIME OF EXAM: 03/25/2025 10:27 AM CLINICAL INFORMATION: None relevant/not provided if blank. 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 TECHNIQUE: CT of the abdomen and pelvis was performed following intravenous contrast utilizing standard protocol. CT dose reduction technique was used, including Automated Exposure Control. CONTRAST: IOPAMIDOL 76 % IV SOLN:100 mL FINDINGS: LUNG BASES: Partially visualized large bilateral pleural effusions with near complete right and partial left lower lobe collapse. A central venous catheter terminates near the superior cavoatrial junction. LIVER: Within normal limits. GALLBLADDER: The gallbladder is distended. There are multiple gallstones. There is a stone in the region of the gallbladder neck. Trace pericholecystic fluid. No definite gallbladder wall thickening. BILE DUCTS: Nondilated. PANCREAS: Within normal limits. SPLEEN: Within normal limits. ADRENALS: 5.0 x 3.6 x 3.8 cm right adrenal lesion. There is a small focus of macroscopic fat. KIDNEYS/URETERS: There is contrast material in the renal collecting systems and ureters, and fluid limit detection of small stones. There is right urothelial thickening. No hydronephrosis. PELVIC ORGANS: There is contrast material in the bladder. There is gas within the endometrium. There is a bladder catheter in place. There is gas within the bladder. BOWEL: There is soft tissue thickening adjacent to the rectum extending into the presacral space where there is a pigtail catheter. There is extraluminal gas within this region. There is extraluminal contrast material at the inferolateral margin with adjacent gas. This is extends adjacent to the mesorectal fascia. Extraluminal gas extends toward the uterus. There is contrast material in the remainder of the colon with air-contrast level. There is colonic diverticulosis. No small bowel obstruction. PERITONEUM/RETROPERITONEUM: No significant ascites. Free air as above. There is pelvic lymphadenopathy. A right external iliac lymph node measures 2.1 cm in short axis diameter. A right pelvic sidewall lymph node measures 1.6 cm in short axis diameter. VESSELS: Within normal limits. ABDOMINAL WALL: There is edema in the subcutaneous fat. The lateral subcutaneous fat is incompletely included in the [id number]-yw-nwal. Fluid extends from the region of the pigtail catheter into the right gluteal muscle. Rim-enhancing fluid collection extends over a length of approximately 13.9 cm with an anterior posterior dimension of 2.7 cm. BONES: Osteopenia. Bilateral hip arthritis. Spinal degenerative change. Procedure Note Jada Richardson MD - 03/25/2025 PROCEDURE: CT ABDOMEN PELVIS W CONTRAST DATE/TIME OF EXAM: 03/25/2025 10:27 AM CLINICAL INFORMATION: None relevant/not provided if blank. 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 TECHNIQUE: CT of the abdomen and pelvis was performed following intravenouscontrast utilizing standard protocol. CT dose reduction technique was used, including Automated ExposureControl. CONTRAST: IOPAMIDOL 76 % IV SOLN:100 mL FINDINGS: LUNG BASES: Partially visualized large bilateral pleural effusions with near complete right and partial left lower lobe collapse. A centralvenous catheter terminates near the superior cavoatrial junction. LIVER: Within normal limits. GALLBLADDER: The gallbladder is distended. There are multiplegallstones. There is a stone in the region of the gallbladder neck. Trace pericholecystic fluid. No definite gallbladder wall thickening. BILE DUCTS: Nondilated. PANCREAS: Within normal limits. SPLEEN: Within normal limits. ADRENALS: 5.0 x 3.6 x 3.8 cm right adrenal lesion. There is a smallfocus of macroscopic fat. KIDNEYS/URETERS: There is contrast material in the renal collectingsystems and ureters, and fluid limit detection of small stones. There is right urothelial thickening. No hydronephrosis. PELVIC ORGANS: There is contrast material in the bladder. There is gas within the endometrium. There is a bladder catheter in place. There isgas within the bladder. BOWEL: There is soft tissue thickening adjacent to the rectum extending into the presacral space where there is a pigtail catheter. There is extraluminal gas within this region. There is extraluminal contrast material at the inferolateral margin with adjacent gas. This is extends adjacent to the mesorectal fascia. Extraluminal gas extends toward the uterus. There is contrast material in the remainder of the colon with air-contrast level. There is colonic diverticulosis. No small bowel obstruction. PERITONEUM/RETROPERITONEUM: No significant ascites. Free air as above. There is pelvic lymphadenopathy. A right external iliac lymph nodemeasures 2.1 cm in short axis diameter. A right pelvic sidewall lymph nodemeasures 1.6 cm in short axis diameter. VESSELS: Within normal limits. ABDOMINAL WALL: There is edema in the subcutaneous fat. The lateral subcutaneous fat is incompletely included in the ueksq-qk-broe. Fluid extends from the region of the pigtail catheter into the right gluteal muscle. Rim-enhancing fluid collection extends over a length of approximately 13.9 cm with an anterior posterior dimension of 2.7 cm. BONES: Osteopenia. Bilateral hip arthritis. Spinal degenerative change. IMPRESSION: 1. Soft tissue thickening in the perirectal region with extraluminal contrast material and gas, which appears to be related related to a perforation of the rectosigmoid junction. There is also contrastmaterial in bladder from urinary excretion, but the extraluminal contrast is in closer association with the rectum that the bladder. 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 No prior images areavailable for comparison but on current study, findings would be concerning for possible rectal mass, but this may be indicated to inflammatory responsein the region. Recommend correlation with prior imaging. 2. Rim-enhancing fluid collection extending from the pigtail catheter through the right gluteal muscle over an area of approximately 13.9 x2.7 cm. 3. Gas within the endometrium, which may be due to a fistula with the rectum though this is not directly visualized. 4. Partially decompressed bladder with intraluminal gas, likely relatedto instrumentation. 5. Distended gallbladder with multiple gallstones. There are stones inthe region of the gallbladder neck with some edema adjacent to thegallbladder. Recommend correlation for acute cholecystitis. 6. Pelvic lymphadenopathy. 7. 5.0 x 3.6 x 3.8 cm right adrenal mass. A small focus of macroscopicfat favors benignity. However, given size, recommend follow-up MRI forfurther characterization. 8. Large bilateral pleural effusions with partial bilateral lower lobe collapse. > Interpreting Provider: Jada Richardson MD on 03/25/2025 11:03 AM Sugar Schwartz DO CT ORDERABLES Final Result * HEMOGLOBIN A1C (03/25/2025 4:03 AM CDT) Hemoglobin A1c 5.5 <5.7 % 03/25/2025 5:26 AM CDT [facility] Estimated Average Glucose 111 mg/dL 03/25/2025 5:26 AM CDT [facility] Blood BLOOD SPECIMEN / Unknown Venipuncture / Unknown 03/25/2025 4:03 AM CDT 03/25/2025 4:26 AM CDT Narrative [facility] - 03/25/2025 5:26 AM CDT HbA1c Interpretation: Normal: < 5.7% Pre-diabetes: 5.7-6.4% Diabetes: Equal to or greater than 6.5% Test results diagnostic of diabetes should be repeated for confirmation. Treatment target values recommended by ADA and other clinical organizations should be used to evaluate metabolic control in patients. This test should not replace glucose testing for patients with Type 1 diabetes, pediatric patients, or women. Falsely low HbA1c results may be observed in patients with clinical conditions that shorten erythrocyte life span or decrease mean erythrocyte age such as the presence of unstable hemoglobin variants, elevated hemoglobin F level or other causes of hemolytic anemia. HbA1c may not accurately reflect glycemic control when clinical conditions that affect erythrocyte survival are present. Severe Iron deficiency anemia may yield falsely high results. Hemoglobin A1c assay should not be used to diagnose or monitor diabetes in patients with malignancy, recent blood transfusion, chronic kidney or liver disease. This method may yield falsely low results when hemoglobin (HbF) exceeds 5% in the specimen. The Jasmine Alinity assay for the measurement of HbA1c is a National Glycohemoglobin Standardization Program (NGSP) certified method. us Mikal Santiago MD LAB - CHEMISTRY ORDERABLE S Final Result Performing Organization Address City/State/[facility] Co de Phone Number [facility] [address] [place], [place] [id number] * (ABNORMAL) VANCOMYCIN LEVEL PEAK (03/25/2025 4:03 AM CDT) Vancomycin Peak 24.8(L) 25.0 - 40.0 ug/mL 03/25/2025 4:54 AM CDT [facility] Blood BLOOD SPECIMEN / Unknown Venipuncture / Unknown 03/25/2025 4:03 AM CDT 03/25/2025 4:26 AM CDT Joanie Rojas MD LAB - CHEMISTRY ORDERABLES Fi nal Result [facility] [address] [place] [address] * (ABNORMAL) URINALYSIS REFLEX TO MICROSCOPIC NO CULTURE (03/24/2025 10:04 PM CDT) Color UA Yellow Yellow, Straw 03/24/2025 10:38 PM CDT [facility] Clarity UA Turbid(A) Clear 03/24/2025 10:38 PM CDT [facility] Glucose UA Normal Normal 03/24/2025 10:38 PM CDT [facility] Bilirubin UA Negative Negative 03/24/2025 10:38 PM CDT [facility] Ketone UA Trace(A) Negative 03/24/2025 10:38 PM CDT [facility] Specific [place] UA >1.050(H) 1.005 - 1.030 03/24/2025 10:38 PM CDT [facility] Blood UA 3+(A) Negative 03/24/2025 10:38 PM CDT [facility] pH UA 5.5 5.0 - 8.0 03/24/2025 10:38 PM CDT [facility] Protein UA 1+(A) Negative 03/24/2025 10:38 PM CDT [facility] Urobilinogen UA 2.0(A) Normal mg/dL 03/24/2025 10:38 PM CDT [facility] Nitrite UA Negative Negative 03/24/2025 10:38 PM CDT [facility] Leukocyte Esterase UA 500 PRICE/uL(A) Negative 03/24/2025 10:38 PM CDT [facility] RBC UA >100(A) 0 - 5 # /hpf 03/24/2025 10:38 PM CDT [facility] WBC UA >100(A) 0 - 5 # /hpf 03/24/2025 10:38 PM CDT [facility] Bacteria UA 1+(A) None Seen 03/24/2025 10:38 PM CDT [facility] Squamous Epithelial Cells None Seen 0 - 5 /hpf 03/24/2025 10:38 PM CDT [facility] Mucus UA 1+ /LPF 03/24/2025 10:38 PM CDT [facility] Budding Yeast Many(A) None seen /hpf 03/24/2025 10:38 PM CDT [facility] Hyaline Casts 6-10(A) 0 - 2 /LPF 03/24/2025 10:38 PM CDT [facility] Calcium Oxalate Crystals Occasional( A) None seen /HPF 03/24/2025 10:38 PM CDT [facility] Urine URINE SPECIMEN OBTAINED BY CLEAN CATCH PROCEDURE / Unknown Collection / Unknown 03/24/2025 10:04 PM CDT 03/24/2025 10:10 PM CDT Narrative [facility] - 03/24/2025 10:38 PM CDT us Mikal Santiago MD LAB - URINALYSIS ORDERABL ES Final Result [facility] [address] [place] [address] * (ABNORMAL) BCID PANEL (03/24/2025 6:21 PM CDT) Lore glabrata Detected( A) Not detected 03/26/2025 11:38 AM CDT [facility] Blood PERIPHERAL BLOOD / Unknown Lab Venipuncture / Unknown 03/24/2025 6:21 PM CDT 03/24/2025 6:38 PM CDT Narrative [facility] - 03/26/2025 11:38 AM CDT Blood Culture ID Panel performed by Miyaobabei multiplex PCR. The Test panel includes: Gram Positive Bacteria: Enterococcus faecalis, Enterococcus faecium, Listeria monocytogenes, Staphylococcus (genus), Staphylococcus aureus, Staphylococcus epidermidis, Staphylococcus lugdunensis, Streptococcus (genus), Streptococcus agalactiae (Group B), Streptococcus pneumoniae, Streptococcus pyogenes (Group A). Gram Negative Bacteria: Acinetobacter baumannii complex, Bacteroides fragilis, Haemophilus influenzae, Neisseria meningitidis (encapsulated), Pseudomonas aeruginosa, Stenotrophomonas maltophilia, Enterobacterales (formerly Enterobacteriaceae family), Enterobacter cloacae complex, Escherichia coli, Klebsiella (formerly Enterobacter) aerogenes, Klebsiella oxytoca, Klebsiella pneumoniae group, Proteus (genus), Salmonella species, Serratia marcescens. YEAST: Lore albicans, Lore auris, Lore glabrata, Lore krusei, Lore parapsilosis, Lore tropicalis, Cryptococcus neoformans/gattii. Antimicrobial Resistance Genes: CTX-M (extended-spectrum beta-lactamase), IMP (metallo beta-lactamase), KPC (carbapenemase), mcr-1 (colistin resistance determinant) mecA/C (methicillin-resistance), mecA/C and MREJ (methicillin-resistance - MRSA), NDM ([place] znkhpfx-dfks-egklvqyrk), OXA-48-like (oxacillinase beta-lactamase),Donna/B (vancomycin-resistance), VIM (Yane Intergrom-Encoded Metallo beta-lactamase). us Ana Montanez MD LAB - MICROBIOLOGY ORDERA BLES Final Result [facility] [address] [place] [place] [address], [facility] [phone] * SUSCEPTIBILITY FUNGUS/YEAST (03/24/2025 6:21 PM CDT) Pathologist [facility] Prelim Report SEE NOTE 04/01/2025 5:33 PM CDT [employer] ([facility]) Comment: Specimen received and in progress. INTERPRETIVE INFORMATION: Susceptibility, Fungal (Yeasts and Molds) Units = ug/mL YSTMIC Amphotericin B 0.5 None Rezafungin 0.06 Suscept Anidulafungin 0.06 Suscept Micafungin 0.016 Suscept Voriconazole 0.5 None Isavuconazole 0.25 None Posaconazole 1 None Itraconazole 0.5 None Fluconazole 8 SDD Caspofungin 0.12 Suscept Performed By: [employer] [address] [place] [id number] Bath Mix Operator: Fredi Beckwith MD, PhD CLIA Number: [id number] Final Report SEE NOTE 04/01/2025 5:33 PM CDT [employer] ([facility]) Comment: Nakaseomyces glabrata (Previously Lore glabrata) Organism identified by client INTERPRETIVE INFORMATION: Susceptibility, Fungal (Yeasts and Molds) Units = ug/mL YSTMIC Amphotericin B 0.5 None Rezafungin 0.06 Suscept Anidulafungin 0.06 Suscept Micafungin 0.016 Suscept Voriconazole 0.5 None Isavuconazole 0.25 None Posaconazole 1 None Itraconazole 0.5 None Fluconazole 8 SDD Caspofungin 0.12 Suscept Performed By: [employer] [address] [place] [address] Bath Mix Operator: Fredi Beckwith MD, PhD CLIA Number: [id number] Blood PERIPHERAL BLOOD / Unknown Lab Venipuncture / Unknown 03/24/2025 6:21 PM CDT 03/24/2025 6:38 PM CDT Narrative [facility] ([facility]) - 04/01/2025 5:33 PM CDT MACIEL=Minimum Inhibitory Concentration MEC=Minimum Effective Concentration MACIEL=Minimum Inhibitory Concentration MEC=Minimum Effective Concentration MACIEL=Minimum Inhibitory Concentration MEC=Minimum Effective Concentration MACIEL=Minimum Inhibitory Concentration MEC=Minimum Effective Concentration MACIEL=Minimum Inhibitory Concentration MEC=Minimum Effective Concentration MACIEL=Minimum Inhibitory Concentration MEC=Minimum Effective Concentration Ana Montanez MD LAB - MICROBIOLOGY ORDERA BLES Final Result Performing Organization Address [facility] de Phone Number [facility] ([facility]) [address] [place] [address] * LACTIC ACID BLOOD (03/24/2025 5:44 PM CDT) Lactic Acid 1.917 <=2 mmol/L 03/24/2025 6:58 PM CDT [facility] Blood BLOOD SPECIMEN / Unknown Lab Venipuncture / Unknown 03/24/2025 5:44 PM CDT 03/24/2025 6:25 PM CDT Ana Montanez MD LAB - CHEMISTRY ORDERABLE S Final Result [facility] [address] [place] [address] from Last 3 Months 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 - 03/24/25 03/29/2025 03/29/2025 Insurance MEDICARE Advance Directives * LIMITED RESUSCITATION-PRIOR AND AFTER ARREST (Latest Code Status on File) Date Activated Date Inactivated Comments 04/26/2025 12:14 PM 04/26/2025 11:23 PM Question Answer Comments Limited Resuscitation: No Chest Compress ionNo Intubation, No Invasive VentilationNo Cardioversion, No Defibrilation, No External or Internal Pacemaker * DNR - IF PULSELESS NO CPR, NO SHOCK Date Activated Date Inactivated Comments 04/22/2025 1:18 PM 04/26/2025 12:14 PM Question Answer Comments : DO NOT discontinue a ny active orders without asking attending physician. * Full Code Date Activated Date Inactivated Comments 03/24/2025 5:30 PM 04/22/2025 1:18 PM Care Teams Pediatric Dentist Relationship Specialty Start Date End Date Lexy George APRN-ANYI [address] [place] [address] PCP - General 03/25/25
--- OUTSIDE RECORDS SUMMARY | 2025-06-18 20:19 | XMS_ITS | Clinical Summary ---
Author Organization [facility] [place] and [facility] Address [address] 5th [address] [place] and [facility] [place] [address] Phone Care Team Providers Care Sander And Polisher Name Role Phone Unavailable Primary Care Provider Unavailabl e Allergies Active Allergy Reactions Criticality Noted Date Comments Hydroxyzine Other (See Comments) 04/28/2025 Hallucinate, psychosis, delirium Caffeine Diarrhea 04/27/2025 Ciprofloxacin Rash Medium 03/24/2025 Codeine Rash Medium 03/24/2025 Ferrous Sulfate Medium 04/13/2025 Other Reaction(s): Psychiatric Changes mood and anxiety Iron Other (See Comments) 04/27/2025 Psychiatric changes Metoclopramide Other (See Comments) Low 04/20/2025 Low PHARMACEUTICAL OFFICER Dysfunction/ mental confusion/ delirium Other Reaction(s): PHARMACEUTICAL OFFICER Dysfunction Mental confusion delirium Mirtazapine Low 04/20/2025 Other Reaction(s): Other Very sleepy, caused her to sleep all night and most of the next day Nsaids Other (See Comments) 04/27/2025 Nose bleeds Medications glucose 4 GM chewable tabletIndications: Hypoglycemia Chew 3 tablets (12 g total) as needed for blood sugar < 70 mg/dL (for hypoglycemia) Indications: Disorder with Low Blood Sugar. 06/10/20 25 Active insulin lispro 100 UNIT/ML injectionIndicatio ns:Hyperglycemia Inject 0-6 Units under the skin 4 (four) times a day before meals and nightly Indications: High Blood Sugar. 06/10/20 25 Active acetaminophen (TYLENOL) 325 MG tablet Administer 2 tablets (650 mg total) per tube every 4 (four) hours as needed for mild pain, moderate pain or Temp > or equal to 101F (38.3C). 06/10/20 25 Active apixaban (Eliquis) 5 MG tabletIndications: Deep Vein Thrombosis 1 tablet (5 mg total) by PO/Per Tube route in the morning and 1 tablet (5 mg total) before bedtime. Indications: Blood Clot in a Deep Vein. 06/10/20 25 Active calcium carbonate (TUMS) 500 MG chewable tablet Chew 1 tablet (500 mg total) 3 (three) times a day as needed for indigestion or heartburn. 06/10/20 25 Active cholecalciferol (VITAMIN D3) 1.25 MG (35723 UT) capsule Take 1 capsule (50,000 Units total) by mouth once a week. 06/11/20 25 Active Diclofenac Sodium (VOLTAREN) 1 % gel Apply 2 g topically 4 (four) times a day as needed (Leg pain). 06/10/20 25 Active escitalopram (LEXAPRO) 5 MG tablet 1 tablet (5 mg total) by PO/Per Tube route in the morning. 06/11/20 25 Active fluticasone (FLONASE) 50 MCG/ACT nasal solution Administer 2 sprays (100 mcg total) into each nostril in the morning. 06/10/20 25 Active folic acid (FOLVITE) 1 MG tablet Administer 1 tablet (1 mg total) per tube in the morning. 06/11/20 25 Active insulin glargine 100 UNIT/ML injectionIndicatio ns:Type 2 Diabetes Mellitus Inject 4 Units under the skin nightly Indications: Type 2 Diabetes. 06/10/20 25 Active metoprolol tartrate (LOPRESSOR) 50 MG tablet 1 tablet (50 mg total) by PO/Per Tube route in the morning and 1 tablet (50 mg total) before bedtime. 06/10/20 25 Active ondansetron ODT (ZOFRAN-ODT) 4 MG disintegrating tablet Take 1 tablet (4 mg total) by mouth every 6 (six) hours as needed for nausea or vomiting. 06/10/20 25 Active pantoprazole (PROTONIX) 40 MG EC/DR tablet Take 1 tablet (40 mg total) by mouth in the morning and 1 tablet (40 mg total) before bedtime. 06/10/20 25 Active QUEtiapine (SEROquel) 50 MG tabletIndications: Delirium 1 tablet (50 mg total) by PO/Per Tube route nightly Indications: Delirium. 06/10/20 25 Active simethicone (MYLICON) 80 MG chewable tablet 1 tablet (80 mg total) by PO/Per Tube route in the morning and 1 tablet (80 mg total) at noon and 1 tablet (80 mg total) in the evening and 1 tablet (80 mg total) before bedtime. 06/10/20 25 Active tamsulosin (FLOMAX) 0.4 MG capsule Administer 1 capsule (0.4 mg total) per tube in the morning. 06/11/20 25 Active verapamil (CALAN) 40 MG tablet 0.5 tablets (20 mg total) by PO/Per Tube route every 8 (eight) hours. 06/10/20 25 Active furosemide (LASIX) 40 MG tablet Take 1 tablet (40 mg total) by mouth in the morning. 06/10/20 25 Active ALPRAZolam (XANAX) 0.5 MG tablet 1 tablet (0.5 mg total) by PO/Per Tube route 3 (three) times a day as needed for anxiety for up to 3 days. 06/10/20 25 025 traMADol (ULTRAM) 25 MG tabletIndications: Pain 1 tablet (25 mg total) by PO/Per Tube route every 6 (six) hours as needed for severe pain for up to 6 days Indications: Pain. 06/10/20 25 025 Active Problems Problem Noted Date Diagnosed Date Wound 04/26/2025 Encounters Date Type Department Care Team Description 04/26/2025 9:02 PM CDT - 06/10/2025 3:36 PM CDT Hospital Encounter [facility] [address]th [place] [address] Ana Montanez MD Discharge Disposition: Care Home Facility (SNF) from Last 3 Months Immunizations Immunization Administration Dates Next Due 107-influenza, Unspecified 05/24/2025(De ferred: Patient not in facility during flu season) Social History Tobacco Use Types Packs/Day Years Used Date Smoking Tobacco: Unknown Tobacco Cessation:Counseling Given: Not Answered [facility] Utilities Answer Date Recorded In the past 12 months has [employer], [employer], oil, or water company threatened to shut off services in your home? Patient unable to answer 04/28/2025 Social Connection and Isolation Panel [NHANES] A nswer Date Recorded In a typical week, how many times do you talk on the phone with family, friends, or neighbors? Patient unable to answer 04/28/2025 How often do you get togethe r with friends or relatives? Patient unable to answer 04/28/2025 How often do you attend chur ch or rastafarian services? Patient unable to answer 04/28/2025 Do you belong to any clubs o r organizations such as baptist groups, unions, fraternal or athletic groups, or school groups? Patient unable to answer 04/28/2025 How often do you attend meet ings of the clubs or organizations you belong to? Patient unable to answer 04/28/2025 Are you , , di vorced, , never , or living with a partner? Patient unable to answer 04/28/2025 AUDIT-C Answer Date Recorded Q1: How often do you have a drink containing alcohol? Never 04/27/2025 Q2: How many drinks containi ng alcohol do you have on a typical day when you are drinking? Patient does not drink Q3: How often do you have si x or more drinks on one occasion? Never 04/27/2025 Overall Financial Resource Strain (CARDIA) Answe r Date Recorded How hard is it for you to pa y for the very basics like food, housing, medical care, and heating? Patient unable to answer 04/28/2025 [facility] - Occupational Stress Questionnaire Answer Date Recorded Do you feel stress - tense, restless, nervous, or anxious, or unable to sleep at night because your mind is troubled all the time - these days? To some extent 06/10/2025 Hunger Vital Sign Answer Date Recorded Within the past 12 months, y ou worried that your food would run out before you got the money to buy more. Patient unable to answer 04/28/2025 Within the past 12 months, t he food you bought just didn't last and you didn't have money to get more. Patient unable to answer 04/28/2025 Housing Stability Vital Sign Answer Reggie e Recorded In the last 12 months, was t here a time when you were not able to pay the mortgage or rent on time? Patient unable to answer 04/28/2025 Number of Times Moved in the Last Year Not on fi le 04/28/2025 At any time in the past 12 m [facility], were you homeless or living in a snf (including now)? Patient unable to answer 04/28/2025 Domestic Abuse Assessment Answer Date R ecorded Do you feel safe in your relationships at home? Yes 05/25/2025 Physical Abuse Denies 05/25/2025 HRSN Domestic Abuse - Type of Abuse Not on file 05/25/2025 HRSN Domestic Abuse - Time Frame Not on file 05/25/2025 HRSN Domestic Abuse - Signs and Symptoms Not on file 05/25/2025 Verbal Abuse Denies 05/25/2025 HRSN Domestic Abuse - Reported To Not on file 05/25/2025 SDOH Transportation Source Answer Da te Recorded Has lack of transportation k ept you from medical appointments or from getting medications? No 06/10/2025 Has lack of transportation k ept you from meetings, work, or from getting things needed for daily living? No 06/10/2025 [facility] PHQ-2 Answer Date Recor ded Feeling down, depressed, or hopeless 0 06/10/2025 Little interest or pleasure in doing things 1 06/10/2025 Comments Unknown Sex and Gender Information Value Date Recorded Sex Assigned at Not on file Legal Sex Female 4:19 PM EDT Gender Identity Not on file Sexual Orientation Not on file Last Filed Vital Signs Vital Sign Reading Time Taken Comments Blood Pressure 119/60 06/10/2025 2:55 PM CDT Pulse 99 06/10/2025 10:21 AM CDT Temperature 36.9 C (98.4 F) 06/10/2025 7:30 AM CDT Respiratory Rate 16 06/10/2025 7:30 AM CDT Oxygen Saturation 91% 06/10/2025 7:30 AM CDT Inhaled Oxygen Concentration - - Weight 96.6 kg (213 lb) 06/09/2025 5:52 AM CDT Height 167.6 cm (5' 6) 05/25/2025 1:25 AM CDT Body Mass Index 34.38 05/25/2025 1:25 AM CDT Plan of Treatment Health Maintenance Due Date Last Done Comments CT Colonography 1950 Colonoscopy 1950 FIT-DNA (Cologuard) 1950 FIT 1950 Sigmoidoscopy 1950 Annual Visit Topic 12/21/1951 Hepatitis C Screening 1968 Mammogram 1990 Pneumococcal Vaccine: 65+ Ye ars (1 of 2 - PCV) 2000 Colorectal Cancer Screening 03/28/2026 FOBT 03/28/2026 03/28/2025 DTaP/Tdap/Td Vaccines (2 - T d or Tdap) 12/27/2031 12/26/2021 HIB Vaccines Aged Out No longer eligi ble based on patient's age to complete this topic HPV Vaccines Aged Out No longer eligi ble based on patient's age to complete this topic Hepatitis A Vaccines Aged Out No long er eligible based on patient's age to complete this topic Hepatitis B Vaccines Aged Out No long er eligible based on patient's age to complete this topic IPV Vaccines Aged Out No longer eligi ble based on patient's age to complete this topic Meningococcal Vaccine Aged Out No elenita bailey eligible based on patient's age to complete this topic Procedures Procedure Name Priority Date/Time Associated Diagnosis Comments POCT GLUCOSE Routine 06/10/2025 12:02 PM CDT POCT GLUCOSE Routine 06/10/2025 7:31 AM CDT CBC WITH AUTO DIFFERENTIAL Routine 06/10/2025 4:05 AM CDT POCT GLUCOSE Routine 06/09/2025 9:41 PM CDT POCT GLUCOSE Routine 06/09/2025 4:14 PM CDT POCT GLUCOSE Routine 06/09/2025 11:19 AM CDT POCT GLUCOSE Routine 06/09/2025 7:50 AM CDT POCT GLUCOSE Routine 06/08/2025 4:53 PM CDT POCT GLUCOSE Routine 06/08/2025 11:32 AM CDT POCT GLUCOSE Routine 06/08/2025 8:01 AM CDT POCT GLUCOSE Routine 06/07/2025 4:32 PM CDT POCT GLUCOSE Routine 06/07/2025 11:09 AM CDT POCT GLUCOSE Routine 06/07/2025 7:40 AM CDT COMPREHENSIVE METABOLIC PANEL Routine 06/07/2025 3:51 AM CDT CREATININE - PHARM Routine 06/07/2025 POCT GLUCOSE Routine 06/06/2025 9:20 PM CDT POCT GLUCOSE Routine 06/06/2025 4:29 PM CDT POCT GLUCOSE Routine 06/06/2025 11:17 AM CDT POCT GLUCOSE Routine 06/06/2025 7:57 AM CDT POCT GLUCOSE Routine 06/05/2025 10:08 PM CDT PULSE OXIMETRY Routine 06/05/2025 8:00 PM CDT POCT GLUCOSE Routine 06/05/2025 3:46 PM CDT POCT GLUCOSE Routine 06/05/2025 12:30 PM CDT PULSE OXIMETRY Routine 06/05/2025 8:00 AM CDT POCT GLUCOSE Routine 06/05/2025 7:49 AM CDT POCT GLUCOSE Routine 06/04/2025 10:06 PM CDT PULSE OXIMETRY Routine 06/04/2025 8:01 PM CDT POCT GLUCOSE Routine 06/04/2025 3:34 PM CDT POCT GLUCOSE Routine 06/04/2025 10:54 AM CDT XR ABDOMEN KUB SUPINE STAT 06/04/2025 6:35 AM CDT POCT GLUCOSE Routine 06/03/2025 9:48 PM CDT PULSE OXIMETRY Routine 06/03/2025 8:01 PM CDT POCT GLUCOSE Routine 06/03/2025 6:05 PM CDT POCT GLUCOSE Routine 06/03/2025 1:51 PM CDT POCT GLUCOSE Routine 06/03/2025 9:03 AM CDT COMPREHENSIVE METABOLIC PANEL Routine 06/03/2025 6:12 AM CDT CBC WITH AUTO DIFFERENTIAL Routine 06/03/2025 5:48 AM CDT CREATININE - PHARM Routine 06/03/2025 POCT GLUCOSE Routine 06/02/2025 9:13 PM CDT PULSE OXIMETRY Routine 06/02/2025 8:01 PM CDT POCT GLUCOSE Routine 06/02/2025 5:32 PM CDT POCT GLUCOSE Routine 06/02/2025 12:26 PM CDT POCT GLUCOSE Routine 06/02/2025 7:52 AM CDT POCT GLUCOSE Routine 06/01/2025 10:20 PM CDT POCT GLUCOSE Routine 06/01/2025 3:52 PM CDT POCT GLUCOSE Routine 06/01/2025 11:38 AM CDT POCT GLUCOSE Routine 06/01/2025 7:21 AM CDT POCT GLUCOSE Routine 06/01/2025 12:17 AM CDT POCT GLUCOSE Routine 05/31/2025 4:36 PM CDT POCT GLUCOSE Routine 05/31/2025 11:53 AM CDT POCT GLUCOSE Routine 05/31/2025 8:02 AM CDT PULSE OXIMETRY Routine 05/31/2025 8:01 AM CDT CREATININE - PHARM Routine 05/31/2025 POCT GLUCOSE Routine 05/30/2025 9:09 PM CDT PULSE OXIMETRY Routine 05/30/2025 8:01 PM CDT POCT GLUCOSE Routine 05/30/2025 4:13 PM CDT POCT GLUCOSE Routine 05/30/2025 11:30 AM CDT POCT GLUCOSE Routine 05/30/2025 8:37 AM CDT PULSE OXIMETRY Routine 05/30/2025 8:00 AM CDT POCT GLUCOSE Routine 05/29/2025 9:33 PM CDT PULSE OXIMETRY Routine 05/29/2025 8:01 PM CDT POCT GLUCOSE Routine 05/29/2025 4:52 PM CDT POCT GLUCOSE Routine 05/29/2025 11:20 AM CDT POCT GLUCOSE Routine 05/29/2025 8:15 AM CDT PULSE OXIMETRY Routine 05/29/2025 8:00 AM CDT POCT GLUCOSE Routine 05/28/2025 9:58 PM CDT PULSE OXIMETRY Routine 05/28/2025 8:01 PM CDT POCT GLUCOSE Routine 05/28/2025 5:08 PM CDT POCT GLUCOSE Routine 05/28/2025 11:45 AM CDT POCT GLUCOSE Routine 05/28/2025 8:36 AM CDT PULSE OXIMETRY Routine 05/28/2025 8:01 AM CDT VITAMIN D, 25-HYDROXY Routine 05/28/2025 5:53 AM CDT TSH Routine 05/28/2025 5:51 AM CDT POCT GLUCOSE Routine 05/27/2025 9:37 PM CDT PULSE OXIMETRY Routine 05/27/2025 8:01 PM CDT POCT GLUCOSE Routine 05/27/2025 5:00 PM CDT POCT GLUCOSE Routine 05/27/2025 11:05 AM CDT POCT GLUCOSE Routine 05/27/2025 8:18 AM CDT PULSE OXIMETRY Routine 05/27/2025 8:01 AM CDT COMPREHENSIVE METABOLIC PANEL Routine 05/27/2025 3:20 AM CDT CBC WITH AUTO DIFFERENTIAL Routine 05/27/2025 2:51 AM CDT CREATININE - PHARM Routine 05/27/2025 POCT GLUCOSE Routine 05/26/2025 8:58 PM CDT PULSE OXIMETRY Routine 05/26/2025 8:01 PM CDT POCT GLUCOSE Routine 05/26/2025 5:35 PM CDT POCT GLUCOSE Routine 05/26/2025 5:33 PM CDT POCT GLUCOSE Routine 05/26/2025 11:37 AM CDT POCT GLUCOSE Routine 05/26/2025 8:25 AM CDT PULSE OXIMETRY Routine 05/26/2025 8:01 AM CDT DIGOXIN LEVEL Routine 05/26/2025 5:06 AM CDT POCT GLUCOSE Routine 05/25/2025 11:08 PM CDT PULSE OXIMETRY Routine 05/25/2025 8:01 PM CDT POCT GLUCOSE Routine 05/25/2025 5:19 PM CDT POCT GLUCOSE Routine 05/25/2025 4:59 PM CDT POCT GLUCOSE Routine 05/25/2025 12:06 PM CDT POCT GLUCOSE Routine 05/25/2025 7:45 AM CDT PULSE OXIMETRY Routine 05/25/2025 5:31 AM CDT PULSE OXIMETRY Routine 05/25/2025 5:31 AM CDT POCT GLUCOSE Routine 05/24/2025 10:52 PM CDT PULSE OXIMETRY, CONTINUOUS Routine 05/24/2025 5:59 PM CDT CREATININE - PHARM Routine 05/24/2025 POCT GLUCOSE Routine 05/21/2025 11:29 AM CDT POCT GLUCOSE Routine 05/21/2025 6:[address] CHEST/ABD/PELVIS W CONTRAST STAT 05/21/2025 6:30 AM CDT POCT GLUCOSE Routine 05/20/2025 9:46 PM CDT CBC WITH AUTO DIFFERENTIAL STAT 05/20/2025 8:08 PM CDT POCT GLUCOSE Routine 05/20/2025 4:59 PM CDT POCT GLUCOSE Routine 05/20/2025 11:42 AM CDT POCT GLUCOSE Routine 05/20/2025 7:11 AM CDT XR ABDOMEN KUB SUPINE STAT 05/20/2025 6:36 AM CDT POCT GLUCOSE Routine 05/20/2025 5:28 AM CDT CBC WITH AUTO DIFFERENTIAL Routine 05/20/2025 1:47 AM CDT COMPREHENSIVE METABOLIC PANEL Routine 05/20/2025 1:47 AM CDT CREATININE - PHARM Routine 05/20/2025 POCT GLUCOSE Routine 05/19/2025 4:09 PM CDT POCT GLUCOSE Routine 05/19/2025 10:45 AM CDT POCT GLUCOSE Routine 05/19/2025 7:47 AM CDT CBC WITH AUTO DIFFERENTIAL Routine 05/19/2025 5:42 AM CDT POCT GLUCOSE Routine 05/18/2025 8:27 PM CDT POCT GLUCOSE Routine 05/18/2025 5:14 PM CDT POCT GLUCOSE Routine 05/18/2025 12:29 PM CDT POCT GLUCOSE Routine 05/18/2025 7:38 AM CDT LIPID PANEL Routine 05/18/2025 6:42 AM CDT POCT GLUCOSE Routine 05/17/2025 9:48 PM CDT POCT GLUCOSE Routine 05/17/2025 6:00 PM CDT POCT GLUCOSE Routine 05/17/2025 12:20 PM CDT POCT GLUCOSE Routine 05/17/2025 8:30 AM CDT CBC WITH AUTO DIFFERENTIAL Routine 05/17/2025 4:16 AM CDT COMPREHENSIVE METABOLIC PANEL Routine 05/17/2025 4:16 AM CDT CREATININE - PHARM Routine 05/17/2025 POCT GLUCOSE Routine 05/16/2025 10:23 PM CDT POCT GLUCOSE Routine 05/16/2025 12:26 PM CDT POCT GLUCOSE Routine 05/16/2025 8:13 AM CDT POCT GLUCOSE Routine 05/15/2025 9:55 PM CDT POCT GLUCOSE Routine 05/15/2025 5:25 PM CDT POCT GLUCOSE Routine 05/15/2025 12:18 PM CDT POCT GLUCOSE Routine 05/15/2025 8:31 AM CDT POCT GLUCOSE Routine 05/14/2025 4:50 PM CDT POCT GLUCOSE Routine 05/14/2025 12:35 PM CDT POCT GLUCOSE Routine 05/14/2025 8:17 AM CDT POCT GLUCOSE Routine 05/13/2025 9:52 PM CDT POCT GLUCOSE Routine 05/13/2025 4:04 PM CDT POCT GLUCOSE Routine 05/13/2025 10:48 AM CDT POCT GLUCOSE Routine 05/13/2025 7:[address] CHEST/ABD/PELVIS W CONTRAST Routine 05/13/2025 6:15 AM CDT CBC WITH AUTO DIFFERENTIAL Routine 05/13/2025 3:50 AM CDT COMPREHENSIVE METABOLIC PANEL Routine 05/13/2025 3:50 AM CDT POCT GLUCOSE Routine 05/12/2025 10:43 PM CDT POCT GLUCOSE Routine 05/12/2025 5:44 PM CDT POCT GLUCOSE Routine 05/12/2025 12:19 PM CDT POCT GLUCOSE Routine 05/12/2025 7:36 AM CDT BASIC METABOLIC PANEL Routine 05/12/2025 4:40 AM CDT POCT GLUCOSE Routine 05/11/2025 9:46 PM CDT POCT GLUCOSE Routine 05/11/2025 6:09 PM CDT POCT GLUCOSE Routine 05/11/2025 10:54 AM CDT POCT GLUCOSE Routine 05/11/2025 8:29 AM CDT BASIC METABOLIC PANEL Routine 05/11/2025 5:30 AM CDT POCT GLUCOSE Routine 05/10/2025 9:46 PM CDT POCT GLUCOSE Routine 05/10/2025 5:32 PM CDT POCT GLUCOSE Routine 05/10/2025 8:37 AM CDT COMPREHENSIVE METABOLIC PANEL Routine 05/10/2025 3:40 AM CDT CBC Routine 05/10/2025 3:40 AM CDT POCT GLUCOSE Routine 05/09/2025 11:39 PM CDT POCT GLUCOSE Routine 05/09/2025 4:15 PM CDT POCT GLUCOSE Routine 05/09/2025 1:01 PM CDT POCT GLUCOSE Routine 05/09/2025 7:59 AM CDT POCT GLUCOSE Routine 05/08/2025 9:01 PM CDT POCT GLUCOSE Routine 05/08/2025 5:31 PM CDT POCT GLUCOSE Routine 05/08/2025 5:26 PM CDT POCT GLUCOSE Routine 05/08/2025 12:45 PM CDT POCT GLUCOSE Routine 05/08/2025 8:05 AM CDT POCT GLUCOSE Routine 05/07/2025 5:52 PM CDT POCT GLUCOSE Routine 05/07/2025 1:00 PM CDT POCT GLUCOSE Routine 05/07/2025 8:02 AM CDT POCT GLUCOSE Routine 05/06/2025 9:40 PM CDT POCT GLUCOSE Routine 05/06/2025 5:51 PM CDT POCT GLUCOSE Routine 05/06/2025 12:57 PM CDT POCT GLUCOSE Routine 05/06/2025 9:59 AM CDT CBC WITH AUTO DIFFERENTIAL Routine 05/06/2025 4:48 AM CDT COMPREHENSIVE METABOLIC PANEL Routine 05/06/2025 4:00 AM CDT CREATININE - PHARM Routine 05/06/2025 POCT GLUCOSE Routine 05/05/2025 10:56 PM CDT POCT GLUCOSE Routine 05/05/2025 4:54 PM CDT POCT GLUCOSE Routine 05/05/2025 11:58 AM CDT POCT GLUCOSE Routine 05/05/2025 8:09 AM CDT CBC Routine 05/05/2025 6:51 AM CDT POCT GLUCOSE Routine 05/04/2025 9:39 PM CDT POCT GLUCOSE Routine 05/04/2025 4:41 PM CDT POCT GLUCOSE Routine 05/04/2025 12:13 PM CDT POCT GLUCOSE Routine 05/04/2025 8:22 AM CDT POCT GLUCOSE Routine 05/03/2025 10:13 PM CDT POCT GLUCOSE Routine 05/03/2025 5:19 PM CDT POCT GLUCOSE Routine 05/03/2025 11:31 AM CDT POCT GLUCOSE Routine 05/03/2025 7:59 AM CDT CREATININE - PHARM Routine 05/03/2025 POCT GLUCOSE Routine 05/02/2025 10:03 PM CDT POCT GLUCOSE Routine 05/02/2025 4:30 PM CDT POCT GLUCOSE Routine 05/02/2025 11:28 AM CDT POCT GLUCOSE Routine 05/02/2025 7:35 AM CDT VICENTE DOPPLER EXTREM/FRIEND Routine 6:14 AM CDT POCT GLUCOSE Routine 05/01/2025 11:40 PM CDT POCT GLUCOSE Routine 05/01/2025 4:30 PM CDT POCT GLUCOSE Routine 05/01/2025 11:15 AM CDT POCT GLUCOSE Routine 05/01/2025 7:32 AM CDT POCT GLUCOSE Routine 04/30/2025 10:49 PM CDT POCT GLUCOSE Routine 04/30/2025 5:29 PM CDT CPK Add-On 04/30/2025 2:34 PM CDT POCT GLUCOSE Routine 04/30/2025 11:58 AM CDT POCT GLUCOSE Routine 04/30/2025 8:02 AM CDT POCT GLUCOSE Routine 04/29/2025 11:05 PM CDT POCT GLUCOSE Routine 04/29/2025 5:09 PM CDT POCT GLUCOSE Routine 04/29/2025 12:43 PM CDT POCT GLUCOSE Routine 04/29/2025 8:39 AM CDT POCT GLUCOSE Routine 04/29/2025 6:41 AM CDT CREATININE - PHARM Routine 04/29/2025 POCT GLUCOSE Routine 04/28/2025 10:24 PM CDT POCT GLUCOSE Routine 04/28/2025 4:52 PM CDT POCT GLUCOSE Routine 04/28/2025 11:53 AM CDT POCT GLUCOSE Routine 04/28/2025 8:02 AM CDT POCT GLUCOSE Routine 04/27/2025 4:07 PM CDT POCT GLUCOSE Routine 04/27/2025 11:17 AM CDT POCT GLUCOSE Routine 04/27/2025 8:26 AM CDT CBC WITH AUTO DIFFERENTIAL Routine 04/27/2025 4:30 AM CDT COMPREHENSIVE METABOLIC PANEL Routine 04/27/2025 4:30 AM CDT POCT GLUCOSE Routine 04/27/2025 12:33 AM CDT CREATININE - PHARM Routine 04/26/2025 CREATININE - PHARM Routine 04/26/2025 from Last 3 Months Results * POCT glucose (06/10/2025 12:02 PM CDT) Only the most recent of162 resultswithin the time period is included. [facility] Glucose Blood, POC 140 70 - 120 mg/dL SM KEVIN Blood 06/10/2025 12:0 2 PM CDT 06/10/2025 12:02 PM CDT Provider Not In System LAB POINT OF CARE TEST OR DERABLES Final Result Performing Organization Address [facility] de Phone Number KEVIN * CBC AUTO DIFFERENTIAL (06/10/2025 4:05 AM CDT) Only the most recent of10 resultswithin the time period is included. Blood (Blood, Venous) 06/10/2025 4:05 AM CDT Ana Montanez MD LAB BLOOD ORDERABLES Final R esult Performing Organization Address [facility] de Phone Number [email or web address] * COMPREHENSIVE METABOLIC PANEL (06/07/2025 3:51 AM CDT) Only the most recent of9 resultswithin the time period is included. Blood (Blood, Venous) Ana Montanez MD LAB BLOOD ORDERABLES Final R esult Performing Organization Address [facility] de Phone Number [email or web address] * Creatinine, body fluid (06/07/2025) Only the most recent of12 resultswithin the time period is included. Serum Creatinine 0.25 Body Fluid Historical Provider LAB BODY FLUIDS AND STOOL S ORDERABLES Final Result * X-ray abdomen KUB supine (06/04/2025 6:35 AM CDT) Only the most recent of2 resultswithin the time period is included. Anatomical Region Laterality Modality Computed Radiogr aphy Lori Mckinney SERVICE PROMOTER SALESPERSON IMG DIAGNOSTIC IMAGING ORDERAB LES Final Result * VITAMIN D,25-HYDROXY (05/28/2025 5:53 AM CDT) Blood (Blood, Venous) Leanne Patricio MD LAB BLOOD ORDERABLES Final Resul t Performing Organization Address [facility] de Phone Number [email or web address] * TSH (05/28/2025 5:51 AM CDT) Blood (Blood, Venous) Leanne Patricio MD LAB BLOOD ORDERABLES Final Resul t Performing Organization Address [facility] Phone Number [email or web address] * Digoxin level (05/26/2025 5:06 AM CDT) Blood (Blood, Venous) 05/26/2025 5:06 AM CDT Brian Riggs MD LAB BLOOD ORDERABLES Final R esult Performing Organization Address [facility] de Phone Number [email or web address] * CT chest/abdomen/pelvis with contrast (05/21/2025 6:30 AM CDT) Only the most recent of2 resultswithin the time period is included. Anatomical Region Laterality Modality Computed Tomogra phy Lori Mckinney NP IMG CT ORDERABLES Final Result * Lipid panel (05/18/2025 6:42 AM CDT) Blood (Blood, Venous) 05/18/2025 6:42 AM CDT Giselle Arrington NP LAB BLOOD ORDERABLES Edited Re sult - Final Performing Organization Address [facility] de Phone Number ONBASE * Basic metabolic panel (05/12/2025 4:40 AM CDT) Only the most recent of2 resultswithin the time period is included. Blood (Blood, Venous) 05/12/2025 4:40 AM CDT Lori Mckinney NP LAB BLOOD ORDERABLES Final Res ult Performing Organization Address [facility] de Phone Number ONBASE * CBC (05/10/2025 3:40 AM CDT) Only the most recent of2 resultswithin the time period is included. Blood (Blood, Venous) 05/10/2025 3:40 AM CDT us Lori Mckinney [employer] LAB BLOOD ORDERABLES Final Res ult Performing Organization Address [facility] de Phone Number ONBASE * Vicente doppler extrem limited, unilateral (05/02/2025 6:14 AM CDT) Anatomical Region Laterality Modality Ultrasound us Ana Montanez MD IMG US ORDERABLES Final Resu lt * CK (04/30/2025 2:34 PM CDT) Blood (Blood, Venous) us Lori Mckinney NP LAB BLOOD ORDERABLES Final Res ult Performing Organization Address [facility] de Phone Number ONBASE from Last 3 Months Additional Health Concerns Infection Onset Date Last Indicated 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 Source: [facility]. 03/29/2025 CRE Comment:enterobacter 05/21/2025 Advance Directives * Full Resuscitation (Latest Code Status on File) Date Activated Date Inactivated Comments 04/27/2025 3:27 AM 06/10/2025 6:46 PM Question Answer Comments I have discussed this order with the patient or his/her surrogate and have received informed consent. Yes
--- NOTE | 2025-06-18 20:22 | PC.NURSE ---
This RN and another RN attempted to obtain blood work and cultures, patient stuck 3 times and was unsuccessful. mechanical equipment test engineer notified and phlebotomy called.
[2025-06-18 20:24] LABS: Influenza A QL RT-PCR Negative (Negative); Influenza B QL RT-PCR Negative (Negative); RSV RNA, RT-PCR Negative (Negative); SARS-CoV-2 RNA PCR Negative (Negative)
--- NOTE | 2025-06-18 20:59 | CONSULT_PTH ---
PATIENT: Bharti Neal LOC: [facility]#:[id number] AGE/SX: 74/F ROOM: RE06/18/[address]: Tasha Nagel MD : [id number] BED: DIS: 06/19/2025 SPEC #: [id number] RECD: 06/18/25 22:28 STATUS: YARED REQ #: [id number] ROOPA: 06/18/25 20:[address]: Tasha Nagel DEPT: [facility] Consult RECD BY: Jessica Diehl MLT ENTERED: 06/18/25 22:32 SP TYPE: Consult OTHR DR: Lexy George APRN Tissues: A - Peripheral Smear Procedures: Hematology Consult
[2025-06-18 21:07] LABS: Add Urine Microscopic? YES; Appearance Urine Turbid (Clear); Budding Yeast Urine Present /hpf; Glucose Urine UA Negative (Negative); Leukocyte Esterase Ur 1+ LEU/UL (Negative); Need Manual Microscopic Reviewed; Nitrate Urine Negative (Negative); Non Pathogenic Casts >20; Specific Grav Ur 1.023 (1.001-1.035)
[2025-06-18] MEDS: SODIUM CHLORIDE 0.9% IV 1,000 ML 999 ML IV CONT (21:09)
--- NOTE | 2025-06-18 21:23 | ED.GENADULT ---
HPI - General Adult General Chief complaint: Weakness Stated complaint: AMS, LETHARGIC Time Seen by Provider: 06/18/25 19:12 History of Present Illness HPI narrative: Patient is a 74-year-old female who presents emergency department this evening from [facility]. EMS was called due to the patient being lethargic. Patient herself states that she does not feel well. Her halfway did notice a low O2 so she was placed on 2 L nasal cannula with improvement of her oxygenation to 100%. Patient does not have a history of hypoxia and does not wear any home oxygen. She does have a history of colorectal cancer and gallbladder disease. Has both a rectal drain and biliary drain. Daughter who is present with the patient at bedside states the patient has been on and off of antibiotics for the past 3 months due to the history of the pelvic abscesses. She also has a colostomy which was placed at [facility]. Patient was initially seen our facility in March where she had her rectal a drain placed by 1 of our general surgeons prior to being transferred to [facility]. Patient does complain of intermittent abdominal pain, she also has a G-tube. No additional symptoms or concerns at this time. Related Data Home Medications ?Medication ?Instructions ?Recorded ?Confirmed ?Last Taken ?Type acetaminophen 325 mg tablet 325 mg PO Q6H PRN fever or pain 03/10/25 03/10/25 Unknown History albuterol sulfate 2.5 mg/3 mL 2.5 mg inhalation Q6H PRN 03/10/25 03/10/25 03/10/25 History (0.083 %) solution for nebulization shortness of breath or wheezing alprazolam 0.25 mg tablet 0.25 mg PO TID PRN anxiety 03/10/25 03/10/25 03/10/25 History dextrose 50 % in water (D50W) 12.5 g IV ONCE PRN hypoglycemia 03/10/25 03/10/25 Unknown History enoxaparin 40 mg/0.4 mL 40 mg subcut DAILY 03/10/25 03/10/25 03/10/25 History subcutaneous syringe fluticasone propionate 50 1 spray intranasal Q12H PRN 03/10/25 03/10/25 Unknown History mcg/actuation nasal allergy symptoms spray,suspension (Allergy Relief (fluticasone)) miconazole nitrate 2 % topical 1 applic topical BID 03/10/25 03/10/25 Unknown History cream (Antifungal (miconazole)) Allergies Allergy/AdvReac Type Severity Reaction Status Date / Time ciprofloxacin (From Cipro) Allergy Rash Verified 06/18/25 21:13 codeine Allergy Rash Verified 06/18/25 21:13 NSAIDS (Non-Steroidal AdvReac Nose Bleed Verified 06/18/25 21:13 Anti-Inflamma Review of Systems Review of Systems: All systems are reviewed and are negative unless stated otherwise in the HPI. [facility] Past Medical History Medical History Diabetes 1.5, managed as type 2 Hypertension Surgical History Surgical History No history of previous surgery Family History Family History Mother Heart attack Diabetes mellitus Type II DM Father , heart attack Heart attack Heart disease Sibling , gynecological cancer (lining of uterus per patient) No problems noted. Social History Social History Smoking status: Never smoker Second hand tobacco smoke exposure: No Alcohol intake: never Alcohol use details: occasional, [id number] Substance use: never Substance use type: does not use Do You Feel Safe in your Home?: Yes Lack of Transportation: No Lack of Food: Never True Current Housing: I Have Housing Concerned About Future Housing: No Difficulty Paying Gas/Electric Bills: No Difficulty Paying for Meds: No Currently Unemployed: No Education: Bachelor's Degree Difficulty w/ Childcare or Family Care: No Spiritual care concerns: No Exam Narrative: General: Alert, awake, afebrile, lethargic but answering questions appropriately. HEENT: PERRL, no rhinorrhea, no post nasal drip, oropharynx clear. Neck: Trachea midline, no JVD, no lymphadenopathy. Cardiovascular: Tachycardic with an irregular rhythm, no murmurs, rubs or gallops, no peripheral edema. Respiratory: Clear to auscultation bilaterally, no tachypnea, no wheezing, no rhonchi, no rubs, no respiratory distress. Abdomen: Soft, nontender, nondistended, no rebound, no guarding, no peritoneal signs, rectal tube in place with bloody drainage, biliary drain in place with greenish drainage, G-tube in place, colostomy bag in place. Musculoskeletal: No joint swelling or deformity, normal muscle tone. Skin: No rashes or petechia, no signs of infection. Psychiatric: Alert and oriented, normal behavior and judgment for situation. Neurological: Alert and oriented to person, place. Follows all commands. No focal deficits, speech is clear and fluent. Course Vital Signs Vital signs: Vital Signs Temperature 97.4 F L 06/18/25 18:43 Pulse Rate 114 H 06/18/25 18:43 Respiratory Rate 24 H 06/18/25 18:43 Blood Pressure 121/82 06/18/25 18:43 Pulse Oximetry 100 06/18/25 18:43 Oxygen Delivery Room Air 06/18/25 18:43 Temperature 97.4 F L 06/18/25 18:43 Pulse Rate 122 H 06/19/25 06:47 Respiratory Rate 20 06/19/25 06:47 Blood Pressure 91/73 L 06/19/25 06:47 Pulse Oximetry 97 06/19/25 06:47 Oxygen Delivery Nasal Cannula 06/18/25 23:00 Oxygen Flow Rate 2 06/18/25 23:00 Medical Decision Making MDM Narrative Medical decision making narrative: The patient was evaluated by myself in the emergency department. History is obtained from patient who is an independent historian along with EMS report and physical exam was performed. External medical records were reviewed at this time. IV was established and pertinent tests were ordered. Patient was administered full sepsis bolus of 2.5 L with normal saline as patient did trigger sepsis. She was also started on broad-spectrum antibiotics with vancomycin and Zosyn as patient is triggering sepsis. EKG was obtained which revealed atrial fibrillation at a rate of 111 beats per minute, otherwise no evidence of acute ischemia within the limitation of the heart rate. EKG was independently interpreted by me and is currently pending official cardiology read. Laboratory results obtained revealing a lactic acid of 6.3, white blood cell count of 82.9, platelet count 148, potassium of 2.7, BUN 46, creatinine 1.01, total bili 1.5, alkaline phosphatase 207 otherwise unremarkable. Urinalysis did reveal urinary tract infection. At this time patient was continued on maintenance fluids at a rate of 150 cc/hour. Patient has been maintaining her map above 65. Blood pressure is ranging 90-100 systolic. Imaging studies obtained included CXR which was independently interpreted by me revealing: Impression: 1: Bibasilar airspace disease may represent edema or pneumonia. 2: Pleural effusions. CT angio PE protocol and CT abdomen pelvis with IV contrast were also obtained at this time and endplate interpreted by me revealing extensive bilateral aspiration pneumonia worse in the lower right lung base, bilateral parapneumonic effusions, soft tissue abscesses deep within the pelvis arising from the sigmoid colon, midline ostomy with severely inflamed loops extending in the pelvis which contains the abscesses, degree of collections have increased compared to previous CT scan, severe wall thickening of the urinary bladder consistent with UTI. Differential diagnosis considerations include sepsis secondary to infectious process such as pneumonia, urinary tract infection, cholecystitis, abdominal abscess, dehydration, electrolyte derangements, acute kidney injury. Comorbidities impacting this visit include history of colorectal cancer, recurrent pelvic abscesses with drain, biliary disease with biliary drain. I have evaluated and discussed social determinants of health with the patient that could potentially impact subsequent diagnosis and treatment plans. On repeat assessment of the patient, reevaluation revealed that the patient is doing well and is in no acute distress. Patient symptoms have improved since she arrived to our emergency department. Repeat vital signs were all reviewed and noted to be stable. Differential diagnosis and treatment plan were discussed with the patient at bedside. Patient agrees with discussion and after shared medical decision making agrees with transfer. All questions were answered to the patient's satisfaction. The [facility] transfer line was contacted at [phone] and transfer was initiated 2 [facility] for continuity of care. I did receive a call back at 0315 informing me that the on-call hospitalist once a case 1 by oncology to see if the patient may need to be transferred to [facility] instead of [facility]. Did speak with the on-call oncologist Dr. Valiente at [phone] who informed me that as long as the patient does not have active last seen on peripheral smear patient can be transferred to [facility] and after discussing case with the lab, patient does not have any blasts. Patient was accepted to [place] step-down unit under accepting physician hospitalist Dr. Santiago at 0315. Per her request, if patient's heart rate does persistently stay in the high 120s to 130s she is recommending starting the patient on amiodarone. At this time patient is persistently in the high 120s to 130s at times she will jump up to 140s and she was administered an 150 bolus of amiodarone and started on an amio drip. Critical care time of 97 minutes, exclusive of separately performed procedures, necessary for treating or preventing eminent or life-threatening deterioration of patient's condition of septic shock secondary to bilateral pneumonia and pelvic abscesses, AFib with RVR, focused on patient care provided personally by me and time spent during initial evaluation, physical examination, ordering and performing treatments and interventions, ordering and reviewing laboratory studies, ordering and reviewing radiographic studies, re-evaluation of the patient's condition, evaluation of the patient's response to treatment, and discussion of patient case with multiple consultants. Vital Signs Vital Signs: Vital Signs Temperature 97.4 F L 06/18/25 18:43 Pulse Rate 114 H 06/18/25 18:43 Respiratory Rate 24 H 06/18/25 18:43 Blood Pressure 121/82 06/18/25 18:43 Pulse Oximetry 100 06/18/25 18:43 Oxygen Delivery Room Air 06/18/25 18:43 Temperature 97.4 F L 06/18/25 18:43 Pulse Rate 122 H 06/19/25 06:47 Respiratory Rate 20 06/19/25 06:47 Blood Pressure 91/73 L 06/19/25 06:47 Pulse Oximetry 97 06/19/25 06:47 Oxygen Delivery Nasal Cannula 06/18/25 23:00 Oxygen Flow Rate 2 06/18/25 23:00 Lab Data 06/18/25 21:24 06/18/25 21:24 Labs: Lab Results 06/18/25 06/18/25 06/18/25 Range/Units 19:43 20:50 21:24 WBC 82.9 H* (4.5-10.0) K/mm3 RBC 3.66 L (4.2-5.4) M/mm3 Hgb 10.1 L (12.0-15.0) g/dL Hct 33.4 L (37.0-47.0) % MCV 91.3 (80-100) fl MCH 27.6 (26-34) pg MCHC 30.2 L (32-36) g/dl RDW 15.7 H (11.5-14.5) % Plt Count 148 L D (150-375) k/mm3 MPV 10.7 H (7.4-10.4) fl Immature Gran % (Auto) Not Reportable Neut % (Auto) Not Reportable Lymph % (Auto) Not Reportable Buchanan % (Auto) Not Reportable Eos % (Auto) Not Reportable Baso % (Auto) Not Reportable Lymph # (Auto) Not Reportable [place]anan # (Auto) Not Reportable Eos # (Auto) Not Reportable Baso # (Auto) Not Reportable Abs Immat Gran (auto) Not Reportable Absolute Neuts (auto) Not Reportable Absolute Nucleated RBC Not Reportable Total Counted 100 Neutrophils % (Manual) 66 (46-73) % Band Neutrophils % 7 H (0-6) % Lymphocytes % (Manual) 16.0 L (18-44) % Monocytes % (Manual) 5 (3-9) % Metamyelocytes % 1 % Myelocytes % 5 % Nucleated RBC % Not Reportable Abs Neuts (Manual) 60.51 H (1.3-6.7) K/mm3 Abs Lymphs (Manual) 13.26 H (1.1-4.5) K/mm3 Abs Monocytes (Manual) 4.14 H (0.1-0.90) K/mm3 Atypical Lymphocytes Present Platelet Estimate Decreased (Adequate) Clumped Platelets Present Hypochromasia 1+ Anisocytosis 1+ Ovalocytes Occasional Schistocytes None seen Sodium 134 L (137-145) mmol/L Potassium 2.7 L* (3.4-5.0) mmol/L Chloride 96 L (98-107) mmol/L Carbon Dioxide 26 (22-30) mmol/L Anion Gap 12 (4-12) mmol/L BUN 46 H D (7-17) mg/dL Creatinine 1.01 H (0.7-1.0) mg/dL Estim Creat Clear Calc 48 ml/min Estimated GFR 54 L (59 - ) Glucose 135 H (65-110) mg/dL Lactic Acid 6.3 H* (0.7-2.0) mmol/L Calcium 7.8 L (8.4-10.2) mg/dL Magnesium 1.9 (1.6-2.3) mg/dL Total Bilirubin 1.5 H (0.2-1.3) mg/dL AST 56 H (14-36) U/L ALT 20 (6-35) U/L Alkaline Phosphatase 207 H (38-126) U/L Total Protein 5.6 L (6.3-8.2) g/dL Albumin 2.2 L (3.5-5.1) g/dL Urine Color Dark yellow (Yellow) Urine Appearance Turbid H (Clear) Urine pH 5.0 (5.0-9.0) Ur Specific [place] 1.023 (1.001-1.035) Urine Protein 3+ H (Negative) mg/dL Urine Glucose (UA) Negative (Negative) mg/dL Urine Ketones Trace H (Negative) mg/dL Ur Blood (Man) Negative (Negative) Urine Nitrate Negative (Negative) Urine Bilirubin 1+ H (Negative) Urine Urobilinogen 1.0 (<2.0) mg/dL Add Ur Microanalysis Reviewed Leukocyte Esterase Rfl 1+ H (Negative) PRICE/UL Urine RBC >100 H (0-2) /hpf Urine WBC 21-50 H (0-3) /hpf Ur Squamous Epith Cells Few (Few) /hpf Calcium Oxalate Crystal Present (None) /hpf Urine Bacteria None seen /hpf Urine Casts >20 Hyaline Casts Present (None) /lpf Urine Mucus Present /lpf Urine Yeast (Budding) Present H (None) /hpf Influenza A (RT-PCR) Negative (Negative) Influenza B (RT-PCR) Negative (Negative) RSV (RT-PCR) Negative (Negative) SARS-CoV-2 RNA (RT-PCR) Negative (Negative) 06/18/25 Range/Units 23:45 WBC (4.5-10.0) K/mm3 RBC (4.2-5.4) M/mm3 Hgb (12.0-15.0) g/dL Hct (37.0-47.0) % MCV (80-100) fl MCH (26-34) pg MCHC (32-36) g/dl RDW (11.5-14.5) % Plt Count (150-375) k/mm3 MPV (7.4-10.4) fl Immature Gran % (Auto) Neut % (Auto) Lymph % (Auto) Buchanan % (Auto) Eos % (Auto) Baso % (Auto) Lymph # (Auto) [place]anan # (Auto) Eos # (Auto) Baso # (Auto) Abs Immat Gran (auto) Absolute Neuts (auto) Absolute Nucleated RBC Total Counted Neutrophils % (Manual) (46-73) % Band Neutrophils % (0-6) % Lymphocytes % (Manual) (18-44) % Monocytes % (Manual) (3-9) % Metamyelocytes % % Myelocytes % % Nucleated RBC % Abs Neuts (Manual) (1.3-6.7) K/mm3 Abs Lymphs (Manual) (1.1-4.5) K/mm3 Abs Monocytes (Manual) (0.1-0.90) K/mm3 Atypical Lymphocytes Platelet Estimate (Adequate) Clumped Platelets Hypochromasia Anisocytosis Ovalocytes Schistocytes Sodium (137-145) mmol/L Potassium (3.4-5.0) mmol/L Chloride (98-107) mmol/L Carbon Dioxide (22-30) mmol/L Anion Gap (4-12) mmol/L BUN (7-17) mg/dL Creatinine (0.7-1.0) mg/dL Estim Creat Clear Calc ml/min Estimated GFR (59 - ) Glucose (65-110) mg/dL Lactic Acid 4.7 H* (0.7-2.0) mmol/L Calcium (8.4-10.2) mg/dL Magnesium (1.6-2.3) mg/dL Total Bilirubin (0.2-1.3) mg/dL AST (14-36) U/L ALT (6-35) U/L Alkaline Phosphatase (38-126) U/L Total Protein (6.3-8.2) g/dL Albumin (3.5-5.1) g/dL Urine Color (Yellow) Urine Appearance (Clear) Urine pH (5.0-9.0) Ur Specific [place] (1.001-1.035) Urine Protein (Negative) mg/dL Urine Glucose (UA) (Negative) mg/dL Urine Ketones (Negative) mg/dL Ur Blood (Man) (Negative) Urine Nitrate (Negative) Urine Bilirubin (Negative) Urine Urobilinogen (<2.0) mg/dL Add Ur Microanalysis Leukocyte Esterase Rfl (Negative) PRICE/UL Urine RBC (0-2) /hpf Urine WBC (0-3) /hpf Ur Squamous Epith Cells (Few) /hpf Calcium Oxalate Crystal (None) /hpf Urine Bacteria /hpf Urine Casts Hyaline Casts (None) /lpf Urine Mucus /lpf Urine Yeast (Budding) (None) /hpf Influenza A (RT-PCR) (Negative) Influenza B (RT-PCR) (Negative) RSV (RT-PCR) (Negative) SARS-CoV-2 RNA (RT-PCR) (Negative) Critical Care Time Critical Care Time Critical Care Time: Yes Total Critical Care Time: 97 (Please refer to [facility] for attestation.) Discharge Plan Discharge Clinical Impression: Atrial fibrillation with RVR, Urinary tract infection, Pneumonia, Septic shock, Hypokalemia, Aspiration pneumonia of both lungs, Abscess of female pelvis, Leukocytosis Patient Disposition: Acute Care Hospital Condition: Guarded Prognosis Patient Language: Latvian Prescriptions: No Action (DME) lancets [BD Microtainer Lancet] 30 gauge misc See Rx Instructions .Route Qty: 200 2RF Rx Instructions: ACHS insulin glargine [Lantus U-100 Insulin] 100 unit/mL Solution 10 unit subcut HS Qty: 300 0RF metoprolol succinate 25 mg tablet extended release 24 hr 37.5 mg PO BID Qty: 60 0RF spironolactone 25 mg Tablet 50 mg PO BID Qty: 30 0RF tamsulosin 0.4 mg Capsule 0.4 mg PO QAM Qty: 30 0RF pantoprazole 40 mg Tablet,Delayed Release (Dr/Ec) 40 mg PO Q12HR Qty: 30 0RF albuterol sulfate 2.5 mg /3 mL (0.083 %) solution for nebulization 2.5 mg inhalation Q6H PRN (Reason: shortness of breath or wheezing) alprazolam 0.25 mg tablet 0.25 mg PO TID PRN (Reason: anxiety) dextrose 50 % in water (D50W) Parenteral Solution 12.5 g IV ONCE PRN (Reason: hypoglycemia) enoxaparin 40 mg/0.4 mL syringe 40 mg subcut DAILY miconazole nitrate [Antifungal (miconazole)] 2 % cream 1 applic topical BID acetaminophen 325 mg tablet 325 mg PO Q6H PRN (Reason: fever or pain) Rx Instructions: one or two tablets fluticasone propionate [Allergy Relief (fluticasone)] 50 mcg/actuation spray,suspension 1 spray intranasal Q12H PRN (Reason: allergy symptoms) Rx Instructions: administer into each nostril (DME) blood-glucose meter Misc See Rx Instructions .ROUTE .MEDSUPPLY Qty: 1 0RF Rx Instructions: DAILY (DME) Blood Glucose Test Strip See Rx Instructions .Route Qty: 100 4RF Rx Instructions: ONCE DAILY Follow-up/Referrals: Lexy George APRN [Primary Care Provider, [facility]] Time of Disposition: 05:55
[2025-06-18] MEDS: PIPERACILLIN/TAZOBACTAM SOD 4.5 GM in SODIUM CHLORIDE 0.9% IV 100 ML 200 ML IVPB (21:26)
--- NOTE | 2025-06-18 21:27 | PC.NURSE ---
Phlebotomy jenna labs.
[2025-06-18 21:31] LABS: Hematocrit 33.4 % (37.0-47.0); Hemoglobin 10.1 g/dL (12.0-15.0); Mean Corpuscular HGB Conc 30.2 g/dl (32-36); Mean Corpuscular Hemoglobin 27.6 pg (26-34); Mean Corpuscular Volume 91.3 fl (80-100); Platelet Count Result 148 k/mm3 (150-375); Red Blood Count 3.66 M/mm3 (4.2-5.4)
[2025-06-18 21:34] LABS: White Blood Count 82.9 K/mm3 (4.5-10.0)
[2025-06-18 21:45] LABS: Alanine Aminotransferase 20 U/L (6-35); Albumin Level 2.2 g/dL (3.5-5.1); Alkaline Phosphatase 207 U/L (38-126); Anion Gap 12 mmol/L (4-12); Aspartate Amino Transferase 56 U/L (14-36); Bilirubin,Total 1.5 mg/dL (0.2-1.3); Blood Urea Nitrogen 46 mg/dL (7-17); Calcium 7.8 mg/dL (8.4-10.2); Carbon Dioxide 26 mmol/L (22-30); Chloride 96 mmol/L (98-107); Estimated CRCL calculation 48 ml/min; Estimated Glomerular Filt Rate 54; Glucose 135 mg/dL (65-110); Magnesium 1.9 mg/dL (1.6-2.3); Potassium 2.7 mmol/L (3.4-5.0); Sodium 134 mmol/L (137-145); Total Protein 5.6 g/dL (6.3-8.2)
[2025-06-18 22:12] LABS: Band Neutrophils Percent 7 % (0-6); Lymphocytes Absolute Manual 13.26 K/mm3 (1.1-4.5); Lymphocytes Percent Manual 16.0 % (18-44); Metamyelocytes Percent 1 %; Monocytes Absolute Manual 4.14 K/mm3 (0.1-0.90); Monocytes Percent Manual 5 % (3-9); Myelocytes Percent 5 %; Neutrophils Absolute Manual 60.51 K/mm3 (1.3-6.7); Neutrophils Percent Manual 66 % (46-73); Total Cells Counted 100
[2025-06-18 22:13] LABS: Anisocytosis 1+
[2025-06-18 22:15] LABS: Hypochromasia 1+; Ovalocytes Occasional; Schistocytes None Seen
[2025-06-18] MEDS: KCL 20 MEQ/SW 100 ML 100 ML 50 MEQ IVPB (22:20)
[2025-06-18] MEDS: VANCOMYCIN 1,250 MG/NS 250 ML 1,250 MG/250 ML BAG 166.67 MG IVPB (23:21)
[2025-06-18] MEDS: SODIUM CHLORIDE 0.9% IV 1,000 ML 999 ML (23:35)
--- NOTE | 2025-06-18 23:36 | PC.NURSE ---
VORB 1,000 mL NS per EDP .
[2025-06-19] VITALS (59 sets, daily range): BP systolic 50–105; BP diastolic 25–82; PULSE 110–144; RESP 15–29; O2SAT 84–100
[2025-06-19] MEDS: KCL 20 MEQ/SW 100 ML 100 ML 50 MEQ IVPB (00:40)
--- NOTE | 2025-06-19 01:27 | PC.NURSE ---
This RN spoke to pt [id number] per pt request and gave update on pt. Will call back on update to pt status.
--- NOTE | 2025-06-19 01:35 | PC.NURSE ---
This RN returned Sally JENKINS's phone call from [facility] and gave update on pt status. Will call back with updates.
[2025-06-19] MEDS: VANCOMYCIN HCL 1,000 MG in SODIUM CHLORIDE 0.9% IV 250 ML 250 MG IVPB (02:25)
[2025-06-19] MEDS: SODIUM CHLORIDE 0.9% IV 1,000 ML 500 ML IV CONT (02:26)
[2025-06-19] MEDS: SODIUM CHLORIDE 0.9% IV 1,000 ML 150 ML IV CONT (04:34)
--- NOTE | 2025-06-19 06:49 | PC.NURSE ---
This RN called and spoke to Holly JENKINS from [place] and gave report.
--- NOTE | 2025-06-19 06:50 | PC.NURSE ---
This RN called and spoke to [facility] and gave update on pt status.
--- NOTE | 2025-06-19 06:53 | PC.NURSE ---
This RN called pt [id number] at [phone] and gave update on pt status.
[2025-06-19] MEDS: NOREPINEPHRINE 8 MG/D5W 250 ML 8 MG/250 ML BAG 9.38 MG IV CONT (08:10)
--- NOTE | 2025-06-19 08:37 | PC.NURSE ---
Pt transferred with Norepinephrine, Amiodarone and Sodium chloride infusing.
== END 2025-06-19 08:37 | disposition short-term general hospital (02) ==
PROVIDERS: Emergency Provider Emergency Medicine; PCP Nurse Practitioner Family
DX: J69.0 Pneumonitis due to inhalation of food and vomit (principal); R65.21 Severe sepsis with septic shock; N39.0 Urinary tract infection, site not specified; E87.6 Hypokalemia; N73.9 Female pelvic inflammatory disease, unspecified; D72.829 Elevated white blood cell count, unspecified; Z93.3 Colostomy status; Z93.1 Gastrostomy status; I10 Essential (primary) hypertension; E13.9 Other specified diabetes mellitus without complications; I48.91 Unspecified atrial fibrillation; Z20.822 Contact with and (suspected) exposure to COVID-19
CPT/HCPCS: 36415; 71045; 71275; 74177; 80053; 81001; 83605; 83735; 85025; 87086; 87637; 93005; 96361; 96365; 96366; 96367; 96368; 99291; J0282; J2543; J3373; J3480; J7030; J7050; Q9967